=== PATIENT | female | born 1945 | race Caucasian/White ===

== ENCOUNTER → 2017-03-07 | Outpatient (CLI) | payer MEDICARE, SELFPAY | PROVIDERS: Visit Provider Family Medicine | DX: R26.89 Other abnormalities of gait and mobility (principal); R41.3 Other amnesia | CPT/HCPCS: 36415; 70470; 82565; 84520; Q9967 ==

== ENCOUNTER → 2017-09-25 15:33 | Outpatient (CLI) | payer MEDICARE, SELFPAY ==
--- NOTE | 2017-09-25 15:53 | XR_ITS ---
XR hip RT 2-3V w/pelvis HISTORY: ITS.REASON: RT HIP PAIN ORDERING PHYSICIAN: Isha Peñaloza MD PATIENT AGE: 71 years COMPARISON: None FINDINGS: Mild osteoarthritic changes are present involving the right hip area no fracture or dislocation. No lytic or blastic change. IMPRESSION: Mild osteoarthritis of the right hip
== END ==
PROVIDERS: PCP Family Medicine; Visit Provider Family Medicine
DX: M25.551 Pain in right hip (principal)
CPT/HCPCS: 73502

== ENCOUNTER → 2018-06-25 14:57 | Outpatient (CLI) | payer MEDICARE, SELFPAY ==
--- NOTE | 2018-06-25 15:02 | XR_ITS ---
XR ribs RT min 3V w CXR1V HISTORY: Right rib pain ITS.REASON: RIB PAIN RT SIDE ORDERING PHYSICIAN: Isha Peñaloza MD PATIENT AGE: 72 years Comparison: None FINDINGS: A frontal view of the chest shows no acute finding. A gastric lap band is present. No acute rib fracture or destructive lesion of the rib evident. There is some cortical thickening involving the anterior aspect of the right 10th and ninth ribs which may represent old fractures. IMPRESSION: 1. Possible old right ninth rib fractures otherwise negative
== END ==
PROVIDERS: PCP Family Medicine; Visit Provider Family Medicine
DX: R07.81 Pleurodynia (principal)
CPT/HCPCS: 71101

== ENCOUNTER 2019-03-18 01:18 | Observation (INO) ==
--- NOTE | 2019-03-18 01:33 | Emergency Department Note ---
ED Disposition Clinical Impression: Bronchitis with bronchospasm Pneumonia, community acquired Qualifiers: Laterality: left Lung location: lower lobe of lung Qualified Code(s): J18.9 - Pneumonia, unspecified organism Disposition: Admitted as Observation Condition on Discharge: Fair Referrals: Isha Peñaloza MD [Primary Care Provider] - - Critical Care Critical Care Time: No Attestation: On 03/18/19, the high probability of a clinically significant, sudden or life threatening deterioration of the following system(s) required my full and direct attention, intervention and personal management. The time I documented below is in addition to time spent performing reported procedures but includes the following listed in this critical care notation. Medical Decision Making - Lele Inquiry Pt receiving controlled substance: No Vital Signs: 03/18/19 01:27 03/18/19 02:01 03/18/19 02:36 Temperature 98.4 F Temperature Source Oral Pulse Rate 83 Pulse Rate [Right Brachial] 123 H 114 H Respiratory Rate 30 H Blood Pressure [Right Arm] 207/103 H 165/85 H Blood Pressure Mean [Right Arm] 137 111 Blood Pressure Source [Right Arm] Automatic Cuff Blood Pressure Position [Right Arm] Supine 02 Sat by Pulse Oximetry 90 L 93 L Oxygen Delivery Method Room Air - Lab Data Lab Results 03/18/19 01:38: WBC 8.9, RBC 4.24, Hgb 12.5, Hct 38.5, MCV 90.9, MCH 29.5, MCHC 32.5, RDW 14.3, Plt Count 175, MPV 7.1 L, Neut % (Auto) 74.8, Lymph % (Auto) 16.9, Mcduffie % (Auto) 3.7, Eos % (Auto) 4.1, Baso % (Auto) 0.6, Neut # (Auto) 6.7, Lymph # (Auto) 1.5, Mcduffie # (Auto) 0.3, Eos # (Auto) 0.4, Baso # (Auto) 0.1 03/18/19 01:38: Sodium 142, Potassium 4.0, Chloride 105, Carbon Dioxide 28, Ani on Gap 13.0, BUN 13, Creatinine 0.69, Estimated Creat Clear 81, Estimated GFR 84, Est GFR ( Amer) 101, Glucose 141 H, Calcium 8.6, Troponin I < 0.02 03/18/19 01:38: Lactate 0.6 03/18/19 01:38: B-Natriuretic Peptide 71 03/18/19 01:47: Influenza Type A Ag Negative, Influenza Type B Ag Negative Result diagrams: 03/18/19 01:38 03/18/19 01:38 Orders (Tests/Meds): ED MEDICATIONS Generic Name Dose Route Start Last Admin Trade Name Freq PRN Reason Stop Dose Admin Ceftriaxone Sodium 1 gm/ 50 mls @ 100 mls/hr 03/18/19 02:30 03/18/19 02:31 Sodium Chloride IV 04/01/19 02:29 100 mls/hr Q24H ALCIRA Administration Protocol Azithromycin 500 mg/ Sodium 250 mls @ 250 mls/hr 03/18/19 02:30 03/18/19 02:56 Chloride IV 04/01/19 02:29 250 mls/hr Q24H ALCIRA Administration Protocol Discontinued Medications Generic Name Dose Route Start Last Admin Trade Name Freq PRN Reason Stop Dose Admin Albuterol/Ipratropium 3 ml 03/18/19 01:42 03/18/19 02:36 Duoneb 3ml Neb IH 03/18/19 01:43 3 ml ONCE ONE Administration Levofloxacin/Dextrose 750 mg in 150 mls @ 100 mls/hr 03/18/19 02:30 Levofloxacin 750mg/150ml Premix IV 04/01/19 02:29 Q24H ALCIRA Protocol Methylprednisolone Sodium Succinate 125 mg 03/18/19 01:42 03/18/19 02:08 Solu-Medrol 125mg/2ml Vial IV 03/18/19 01:43 125 mg ONCE ONE Administration ORDERS Category Date Time Status Chest XR 2 view (NOT portable) [XR chest 2V] Stat Exams 03/18/19 01:42 Ordered Troponin I Q3H Lab 03/18/19 04:45 Ordered Troponin I Q3H Lab 03/18/19 07:45 Ordered Blood Culture Stat Micro 03/18/19 01:38 Received 12-lead EKG Request [ECG Request by /Gerald] Stat Y 03/18/19 01:32 Ordered - Radiology Data #1 Image(s): Chest Image Reviewed: Yes I reviewed the patient's radiology image Increased markings left base, blunting left costophrenic angle. Probable pneumonia. - ECG Data Tracing #1 EKG interpreted by Nima Gray MD: Rhythm: sinus tachycardia Rate: 118 [place]: normal Ectopy: none Conduction: normal ST Segment Changes: none T Wave Changes: none Q Waves: none No evidence of acute ischemia or injury - Physician Consults Physician Consulted: Karen Downs Time: 02:57 Reason -: Admission Comment/Response: Agrees to admit the patient to the hospital. We discussed the patient's clinical information, including history, exam, laboratory and radiology results and ED course. Per hospital procedure, I will write temporary bridge inpatient orders on the patient. Specific orders requested by the admitting physician: Continue antibiotics, nebulizer treatments, steroids - Reevaluation(s) Time: 02:51 Reevaluation #1: Some improvement, but still wheezing and tachypneic. Does not feel well enough to go home. Medical Decision Narrative: Allergy to penicillin, but has had Keflex without difficulty General Adult HPI - General Stated complaint: Difficulty breathing Time Seen by Provider: 03/18/19 01:34 Mode of Arrival: Wheelchair Limitations: No Limitations Description of Symptoms (Recalled from ER Triage Doc. by RN): PATIENT WHEELED INTO [place] 7 STATING "I THINK I HAVE PNEUMONIA." PATIENT STATES "I'VE BEEN HAVING TROUBLE BREATHING, MY CHEST HURTS, AND I'M WHEEZING." PATIENT REPORTS UNKNOWN IF SHE HAS BEEN RUNNING ANY FEVERS, BUT REPORTS HAVING CHILLS. - History of Present Illness HPI narrative: States "I think I have pneumonia". 2-day history of shortness of breath, wheezing, nonproductive cough, rhinorrhea, sore throat, chills without documented fever. Also has had swelling of her ankles for 2 weeks. Says that she has had bronchitis in the past and this feels the same. States that she has a bad hip, her hip doctor sent her for cardiac evaluation about 3 weeks ago. She saw leaf sorter at [facility] had and had an EKG and an echocardiogram and was told everything was fine. No known heart problems. No known lung disease. Former smoker, quit many years ago. - Related Data Home Medications Medication Instructions Recorded Confirmed Citalopram Hydrobromide [Celexa] 10 mg PO DAILY 07/12/17 07/12/17 PHENobarbital [Phenobarbital] 15 mg PO DAILY 07/12/17 07/12/17 Simvastatin 10 mg PO DAILY 07/12/17 07/12/17 glyBURIDE [Diabeta 5mg tablet] 0 mg PO DAILY 07/12/17 07/12/17 lisinopriL [Lisinopril 10mg Tab] 10 mg PO DAILY 07/12/17 07/12/17 Previous Rx's Medication Instructions Recorded cephALEXin [Keflex 500mg Cap] 500 mg PO QID #39 cap 07/12/17 Bacitracin [Bacitracin Oint 0.9GM 1 each TP TID #1 tube 10/12/17 UDP] cephALEXin [Keflex 500mg Cap] 500 mg PO QID #40 cap 10/12/17 Allergies Allergy/AdvReac Type Severity Reaction Status Date / Time Penicillins Allergy Intermediate I-ITCHING, Verified 10/12/17 12:07 RASH, SWELLING [facility] History - Hepatitis A Screen Drug use history?: No High risk sexual behaviors?: No History of sexually transmitted infection?: No Currently employed?: No Childcare worker?: No Do you have indoor plumbing?: Yes Do you have electricity?: Yes Attestation statement:: This patient has been screened for Hepatitis A risk factors. I have reviewed the patient's past medical history: Yes Medical History: Reports:: Anxiety, Depression, Diabetes Mellitus Type 2, Hyperlipidemia, Hypertension Denies:: Cancer, Diabetes Mellitus Type 1, MRSA Other Medical History: Reports: Other (headaches) Laterality Cases: Left: Other Other Surgeries: Yes: Other (lap band, hysterectomy) Amputation: No - Social History Alcohol Intake: never - Psychiatric History Pschychiatric History:: Reports:: Anxiety, Depression ROS Obtained: Yes All systems reviewed & no additional complaints - Constitutional Constitutional: Reports chills, Denies fever(s) - ENT Ears, Nose, Mouth, and Throat: Reports nasal discharge, Reports sore throat - Cardiovascular Cardiovascular: Denies chest pain, Reports leg edema - Respiratory Respiratory: Yes cough, Yes dyspnea - Gastrointestinal Gastrointestingal: Denies: abdominal pain, diarrhea, vomiting Physical Exam - General General appearance: alert, in distress (Mild respiratory distress) - Head Head exam: atraumatic, normocephalic - Eye Eye exam: Present: normal appearance, EOMI - ENT ENT exam: Present: mucous membranes moist - Neck Neck exam: Present: normal inspection, trachea midline - Chest Chest inspection: Present: normal inspection, symmetric chest wall rise - Respiratory Respiratory exam: Present: wheezes - Cardiovascular Cardiovascular exam: Present: tachycardia, normal heart sounds - Abdominal Exam Abdominal exam: Present: soft. Absent: distention, tenderness - Extremities Exam Extremities exam: Present: normal capillary refill, other (2+ pitting edema of ankles) - Neurological Exam Neurological exam: Present: alert, oriented X3 - Psychiatric Psychiatric exam: Present: anxious - Skin Skin exam: Present: warm, dry
[2019-03-18 01:55] LABS: Basophils # 0.1 K/mm3 (0-0.2); Basophils % 0.6 % (0.1-2.0); Eosinophils # 0.4 K/mm3 (0.0-0.4); Eosinophils % 4.1 % (0.1-12.0); Hematocrit 38.5 % (37.0-47.0); Hemoglobin 12.5 g/dL (12.2-16.2); Lymphocytes # 1.5 K/mm3 (0.7-4.5); Lymphocytes % 16.9 % (10-50); Mean Corpuscular HGB Conc 32.5 g/dL (31.8-35.4); Mean Corpuscular Volume 90.9 fl (81-99); Mean Platelet Volume 7.1 fl (7.4-10.4); Monocytes # 0.3 K/mm3 (0.1-1.0); Monocytes % 3.7 % (1.7-9.3); Neutrophils # 6.7 K/mm3 (1.8-7.8); Neutrophils % 74.8 % (37.0-80.0); Platelet Count 175 K/mm3 (142-424); Red Blood Count 4.24 M/mm3 (4.20-5.40); Red Cell Distribution Width 14.3 % (11.5-17.5); White Blood Count 8.9 K/mm3 (4.8-10.8)
[2019-03-18 02:07] LABS: Blood Urea Nitrogen 13 mg/dL (7-18); Calcium 8.6 mg/dL (8.5-10.1); Carbon Dioxide 28 mmol/L (21.0-32.0); Chloride 105 mmol/L (98-107); Glucose 141 mg/dL (74-106); Sodium 142 mmol/L (136-145)
--- NOTE | 2019-03-18 08:25 | History & Physical Report ---
*Admission Date: 03/18/19 *Chief complaint: Cough with shortness of breath and wheezing *History of present illness: 73-year-old female with diabetes presented to the emergency department with a 48-hour history of cough, malaise, wheezing and worsening shortness of breath with subjective fevers. Evaluation in the emergency department was suspicious for a left lower lobe pneumonia along with patient's wheezing. There is no documented hypoxia. Patient was admitted for treatment of community-acquired pneumonia and bronchiolitis. Patient reports her cough is productive of only clear sputum. She does not use inhaled medications at home. [facility] History I have reviewed the patient's past medical history: Yes Medical History: Reports:: Anxiety, Depression, Diabetes Mellitus Type 2, Hyperlipidemia, Hypertension Denies:: Cancer, Diabetes Mellitus Type 1, MRSA *Have you ever received a pneumonia vaccine?: No *Have you received a flu vaccine this season?: Yes Other Medical History: Reports: Other (headaches) Laterality Cases: Left: Other Other Surgeries: Yes: Hysterectomy-Total, Other (lap band, hysterectomy) Amputation: No Fractures: No - *Social History Educational Level: Attended College Smoking Status: Former smoker Smoking End Date: 27 years ago Alcohol Intake: never *Occupational Status:: retired Housing: house Household Members: spouse *Travel in the last 8 weeks: None - Psychiatric History Pschychiatric History:: Reports:: Anxiety, Depression Family Hx:: Cancer, Diabetes, Heart Attack, Stroke Review of Systems - Constitutional Reports body ache(s), Reports chills, Reports fatigue, Reports weakness, Denies fever(s) - *Cardiovascular Denies chest pain - *Respiratory Reports chest congestion, Reports cough, Reports shortness of breath, Reports shortness of breath with activity, Denies change in phlegm color, Denies coughing up blood Meds Home Medications Medication Instructions Recorded Confirmed Type Citalopram Hydrobromide [Celexa] 10 mg PO DAILY 07/12/17 03/18/19 History PHENobarbital [Phenobarbital] 15 mg PO DAILY 07/12/17 03/18/19 History Simvastatin 10 mg PO DAILY 07/12/17 03/18/19 History lisinopriL [Lisinopril 10mg Tab] 10 mg PO DAILY 07/12/17 03/18/19 History glipiZIDE [Glipizide] 30 mg PO DAILY 03/18/19 03/18/19 History Allergies Allergy/AdvReac Type Severity Reaction Status Date / Time Penicillins Allergy Intermediate I-ITCHING, Verified 10/12/17 12:07 RASH, SWELLING Exam Vital signs and Labs for Last 24 Hours: Temp Pulse Resp BP Pulse Ox 98.3 F 107 H 17 140/59 L 92 L 03/18/19 08:00 03/18/19 08:00 03/18/19 08:00 03/18/19 08:00 03/18/19 08:00 Laboratory Results - last 24 hr 03/18/19 01:38: WBC 8.9, RBC 4.24, Hgb 12.5, Hct 38.5, MCV 90.9, MCH 29.5, MCHC 32.5, RDW 14.3, Plt Count 175, MPV 7.1 L, Neut % (Auto) 74.8, Lymph % (Auto) 16.9, Lyman % (Auto) 3.7, Eos % (Auto) 4.1, Baso % (Auto) 0.6, Neut # (Auto) 6.7, Lymph # (Auto) 1.5, Lyman # (Auto) 0.3, Eos # (Auto) 0.4, Baso # (Auto) 0.1 03/18/19 01:38: Sodium 142, Potassium 4.0, Chloride 105, Carbon Dioxide 28, Anion Gap 13.0, BUN 13, Creatinine 0.69, Estimated Creat Clear 81, Estimated GFR 84, Est GFR ( Amer) 101, Glucose 141 H, Calcium 8.6, Troponin I < 0.02 03/18/19 01:38: Lactate 0.6 03/18/19 01:38: B-Natriuretic Peptide 71 03/18/19 01:47: Influenza Type A Ag Negative, Influenza Type B Ag Negative 03/18/19 06:06: POC Glucose 223 H I & O for Last 24 hours: Intake & Output 03/15/19 03/16/19 03/17/19 03/18/19 11:59 11:59 11:59 11:59 Weight 239 lb 9 oz Narrative: Patient looks tired. Nasal cannula is in place. She shows no signs of respiratory distress. HEENT exam reveals pupils that are reactive to light, normal external ears, moist mucous membranes. Neck has no lymphadenopathy. Breath sounds are distant throughout with mixed expiratory wheezes heard best posteriorly in both lungs. Heart has a regular rate and rhythm. Abdomen is obese and soft. Extremities are warm to the touch and she has active range of motion. Assessment and Plan (1) Pneumonia, community acquired Current visit: Yes Status: Acute Qualifiers: Laterality: left Lung location: lower lobe of lung Qualified Code(s): J18.9 - Pneumonia, unspecified organism Category: Medical Code(s): J18.9 - Pneumonia, unspecified organism (2) Acute bronchiolitis Current visit: Yes Status: Acute Category: Medical Code(s): J21.9 - Acute bronchiolitis, unspecified (3) Diabetes mellitus Current visit: Yes Status: Acute Qualifiers: Diabetes mellitus type: type 2 Diabetes mellitus long-term insulin use: without long-term use Diabetes mellitus complication status: without complication Qualified Code(s): E11.9 - Type 2 diabetes mellitus without complications Category: Medical Code(s): E11.9 - Type 2 diabetes mellitus without complications - Assessment and plan all Dx Assessment and Plan for all problems:: 1. Continue IV Rocephin and azithromycin along with steroids and duo nebs for community-acquired pneumonia and bronchiolitis. Supplemental oxygen will be used as needed.
--- NOTE | 2019-03-18 08:54 | Pharmacy Consult Notes ---
[facility] Pharmacy VTE Monitoring - Patient Demographics Admission date: 03/17/19 Report Date: 03/18/19 Time: 08:54 Allergies/Adverse Reactions: Patient Allergies Penicillins Allergy (Intermediate, Verified 10/12/17 12:07) I-ITCHING, RASH, SWELLING Height: 1.57 m Weight: 108.664 kg Patient Problems: Current Active Problems Pneumonia, community acquired (Acute) Bronchitis with bronchospasm (Acute) Acute bronchiolitis (Acute) Diabetes mellitus (Acute) - VTE Risk Labs: VTE Related Lab Results Hgb 12.5 g/dL (12.2-16.2) 03/18/19 01:38 Hct 38.5 % (37.0-47.0) 03/18/19 01:38 Plt Count 175 K/mm3 (142-424) 03/18/19 01:38 BUN 13 mg/dL (7-18) 03/18/19 01:38 Creatinine 0.69 mg/dL (0.55-1.02) 03/18/19 01:38 Estimated Creat Clear 81 mL/min (50-200) 03/18/19 01:38 Was VTE Risk Assessment Performed: Yes VTE Score: 4 VTE Risk Level: Low Risk Clinical Trial Participant: No - Prophylaxis VTE Prophylaxis Ordered?: Yes Types of VTE Prophylaxis: TEDS Knee High Location of Applied Device: Refused
--- NOTE | 2019-03-19 07:25 | Progress Note ---
Internal Medicine - PN: Subj *Date: 03/19/19 *Time: 07:23 Interval history: Patient reports feeling slightly improved although has had some dyspnea with exertion. Documented room air sat of 89% this morning. Her cough remains nonproductive and she denies any improvement with use of duo nebs Exam Vital signs and Labs for Last 24 Hours: Temp Pulse Resp BP Pulse Ox 98.4 F 97 H 20 142/76 H 92 L 03/19/19 04:00 03/19/19 06:08 03/19/19 04:00 03/19/19 04:00 03/19/19 06:08 Laboratory Results - last 24 hr 03/18/19 20:25: POC Glucose 290 H 03/19/19 05:31: POC Glucose 280 H I & O for Last 24 hours: Intake & Output 03/16/19 03/17/19 03/18/19 03/19/19 11:59 11:59 11:59 11:59 Intake Total 120 / 120 1081 / 1081 Output Total 300 / 300 Balance 120 / 120 781 / 781 Weight 239 lb 9 oz 238 lb 3 oz Narrative: Patient does not appear to be in any distress. Lungs are distant with expiratory wheezes. Faint rales in the left lung base Assessment and Plan (1) Pneumonia, community acquired Current visit: Yes Status: Acute Qualifiers: Laterality: left Lung location: lower lobe of lung Qualified Code(s): J18.9 - Pneumonia, unspecified organism Category: Medical Code(s): J18.9 - Pneumonia, unspecified organism (2) Acute bronchiolitis Current visit: Yes Status: Acute Category: Medical Code(s): J21.9 - Acute bronchiolitis, unspecified (3) Diabetes mellitus Current visit: Yes Status: Acute Qualifiers: Diabetes mellitus type: type 2 Diabetes mellitus terminal gauger insulin use: without mcc use Diabetes mellitus complication status: without complication Qualified Code(s): E11.9 - Type 2 diabetes mellitus without complications Category: Medical Code(s): E11.9 - Type 2 diabetes mellitus without complications - Assessment and plan all Dx Assessment and Plan for all problems:: 1. Encourage patient to ambulate and use incentive spirometry. Continue IV antibiotics and steroids. Change duo nebs to as needed
--- NOTE | 2019-03-19 11:21 | Electrocardiograph Report ---
APPROVED REPORT Exam: Resting ECG HR:118 bpm ECG Measurements Heart Rate 118 AXES RI 154 P 70 QRSd 66 QRS 30 QT 318 T55 QTc 445 <Conclusion> Sinus tachycardia Otherwise normal ECG Electronically signed by : Humberto Camarena, 03/18/2019 09:46:27
--- NOTE | 2019-03-20 07:41 | Discharge Summary ---
General - General Admission date:: 03/18/19 Discharge date: 03/20/19 HPI HPI: 73-year-old female with diabetes presented to the emergency department with a 48-hour history of cough, malaise, wheezing and worsening shortness of breath with subjective fevers. Evaluation in the emergency department was suspicious for a left lower lobe pneumonia along with patient's wheezing. There is no documented hypoxia. Patient was admitted for treatment of community-acquired pneumonia and bronchiolitis. Patient reports her cough is productive of only clear sputum. She does not use inhaled medications at home. Hospital Course Hospital Course: Patient was admitted and treated with Rocephin and azithromycin for left lower lobe pneumonia. Patient was also treated with duo nebs and steroids for wheezing. She did not get much benefit from the duo nebs so these were made as needed as opposed to schedule. Patient never developed an oxygen requirement. After 48 hours of observation patient's lung exam had improved to include only faint expiratory wheezes. Blood cultures were negative. Patient was discharged home and will follow-up in the office in 1 week. Patient will finish a course of azithromycin as well as steroids. Objective Vital signs: Temp Pulse Resp BP Pulse Ox 97.9 F 96 H 18 142/70 H 91 L 03/20/19 04:00 03/20/19 04:00 03/20/19 04:00 03/20/19 04:00 03/20/19 04:00 Narrative: Patient is in no distress. Lungs have good aeration with end expiratory wheezing heard in the upper lobes posteriorly. Heart has a regular rate and rhythm. Extremities are without edema Results Labs on day of discharge: Labs from last 24 hours 03/20/19 03/19/19 03/19/19 06:06 20:39 16:23 POC Glucose 335 H* 333 H* 301 H* 03/19/19 03/18/19 03/18/19 11:21 16:55 11:44 POC Glucose 323 H* 307 H* 267 H Preliminary micro results at discharge 03/18/19 01:38 Blood Culture - Preliminary Blood NO GROWTH AFTER 48 HOURS 03/18/19 01:38 Blood Culture - Preliminary Blood NO GROWTH AFTER 48 HOURS DS: Diagnosis - Discharge Diagnosis (1) Pneumonia, community acquired Status: Acute (2) Acute bronchiolitis Status: Acute (3) Diabetes mellitus Status: Acute Discharge Plan - Patient Discharge Instructions ACTIVITY: Continue current activity DIET: continue same diet Patient Instructions: Acute Bronchitis (Alternative Therapy), Pneumonia-Adult, DI for Pneumonia -- Adult - Follow up Plan Follow up with: Humberto Downs MD [Staff Physician] - Disposition: Home, Self-Residential Medications: Home Medications Medication Instructions Recorded Confirmed Type Citalopram Hydrobromide [Celexa 40 mg PO DAILY 03/18/19 03/18/19 History 40mg Tablet] Ergocalciferol (Vitamin D2) 50,000 units PO WEEKLY 03/18/19 03/18/19 History [Drisdol 50,000 units (1.25mg) capsule] Furosemide [Furosemide 40MG tAB] 40 mg PO DAILY 03/18/19 03/18/19 History Levothyroxine Sodium 50 mcg PO DAILY 03/18/19 03/18/19 History [Levothyroxine 50mcg (0.05mg) Tab] Lisinopril/Hydrochlorothiazide 1 each PO DAILY 03/18/19 03/18/19 History [Lisinopril-Hctz 20-12.5 mg Tab] Pioglitazone HCl 30 mg PO DAILY 03/18/19 03/18/19 History Simvastatin 40 mg PO HS 03/18/19 03/18/19 History glipiZIDE [Glipizide ER] 10 mg PO BID 03/18/19 03/18/19 History Azithromycin [Z-Sukhi 250mg Tab*] 250 mg PO UD DOSE PK #6 tab 03/20/19 Rx methylPREDNISolone [Medrol] 4 mg PO DIRECTED #21 pack 03/20/19 Rx Prescriptions/Medication Reconciliation: New methylPREDNISolone [Medrol] 4 mg PO DIRECTED #21 pack Azithromycin [Z-Sukhi 250mg Tab*] 250 mg PO UD DOSE PK #6 tab Continued Simvastatin 40 mg PO HS Furosemide [Furosemide 40MG tAB] 40 mg PO DAILY Pioglitazone HCl 30 mg PO DAILY Citalopram Hydrobromide [Celexa 40mg Tablet] 40 mg PO DAILY Levothyroxine Sodium [Levothyroxine 50mcg (0.05mg) Tab] 50 mcg PO DAILY Ergocalciferol (Vitamin D2) [Drisdol 50,000 units (1.25mg) capsule] 50,000 units PO WEEKLY Lisinopril/Hydrochlorothiazide [Lisinopril-Hctz 20-12.5 mg Tab] 1 each PO DAILY glipiZIDE [Glipizide ER] 10 mg PO BID - Problem Reconciliation Problems Reviewed?: Yes
== END 2019-03-20 11:09 | disposition home or self-care (01) ==
LOC: 2ND 01:18 → ER 01:18 → 2ND 03:55
PROVIDERS: ADMIT Internal Medicine Adolescent Medicine; ATTEND Family Medicine
CPT/HCPCS: 71020; 71046; 80048; 82962; 83605; 83880; 84484; 85025; 87040; 87275; 87276; 93005; 94640; 94761; 96365; 96366; 96375; 99284; G0378; J0456; J2405

== ENCOUNTER → 2019-04-22 11:58 | Outpatient (CLI) | payer MEDICARE, SELFPAY ==
--- NOTE | 2019-04-22 12:05 | XR_ITS ---
PROCEDURE: XR CHEST 2V CLINICAL HISTORY: HTN Pneumonia COMPARISON: [id number] XR ribs RT min 3V w CXR1V from 06/25/2018 XR CHEST 2V from 03/18/2019 FINDINGS: Borderline cardiomegaly without failure Right-sided pericardial fat pad. No lobar consolidation or collapse No acute bony abnormalities. IMPRESSION: No acute findings. Dictated by: Saeed Brown MD 04/22/2019 15:43 Electronically signed by Saeed Brown MD in [place] 04/22/2019 15:43
== END ==
PROVIDERS: PCP Family Medicine; Visit Provider Family Medicine
DX: Z01.818 Encounter for other preprocedural examination (principal)
CPT/HCPCS: 71046

== ENCOUNTER → 2019-08-14 12:35 | Outpatient (CLI) | payer MEDICARE, SELFPAY ==
--- NOTE | 2019-08-14 12:51 | XR_ITS ---
PROCEDURE: XR ANKLE RT MIN 3V CLINICAL INDICATION: FELL Right ankle and foot pain COMPARISON: No exams were available for comparison FINDINGS: The medial and lateral malleolus appear intact. There is minor spurring of the tip of the lateral malleolus and tip of the medial malleolus. There is moderate soft tissue swelling medially. IMPRESSION: Minor soft tissue swelling, no acute fracture seen Dictated by: Dr. Jax Pena MD 08/14/2019 13:[address] Jax Pena MD in [place] 08/14/2019 13:06
--- NOTE | 2019-08-14 12:51 | XR_ITS ---
PROCEDURE: XR FOOT RT MIN 3V CLINICAL INDICATION: FELL Right foot pain and swelling COMPARISON: No exams were available for comparison FINDINGS: No fracture or dislocation. No lytic or blastic change. There is normal mineralization. The joint spaces are well-preserved. No significant degenerative/arthritic changes. No erosive changes evident. There are prominent spurs of the calcaneus at the insertion of the Achilles tendon and plantar tendon. Other findings:There is minor diffuse soft tissue swelling of the dorsal forefoot IMPRESSION: Negative for acute fracture. Dictated by: Dr. Jax Pena MD 08/14/2019 13:[address] Jax Pena MD in [place] 08/14/2019 13:07
== END ==
PROVIDERS: PCP Family Medicine; Visit Provider Family Medicine
DX: M25.571 Pain in right ankle and joints of right foot (principal); W19.XXXA Unspecified fall, initial encounter
CPT/HCPCS: 73610; 73630

== ENCOUNTER → 2020-05-17 11:21 | Outpatient (CLI) | payer MEDICARE, SELFPAY ==
--- NOTE | 2020-05-17 11:28 | XR_ITS ---
PROCEDURE: XR SHOULDER LT MIN 2V CLINICAL INDICATION: FALL AT HOME, PAIN IN LT SHOULDER COMPARISON: No exams were available for comparison FINDINGS: No fracture or dislocation. No lytic or blastic change. There is normal mineralization. There are mild osteoarthritic changes of the acromioclavicular joint and glenohumeral joint with osteophyte along the subacromial region with subacromial stenosis. Other findings:None. IMPRESSION: Degenerative change, no acute finding Dictated by: Saeed Brown MD 05/17/2020 17:02 Saeed Brown MD in [place] 05/17/2020 17:02
--- NOTE | 2020-05-17 11:29 | XR_ITS ---
PROCEDURE: XR CHEST 2V CLINICAL HISTORY: FALL AT HOME, RIB PAIN OF LT SIDE COMPARISON: CR XR CHEST 2V from 03/18/2019 CR XR CHEST 2V from 04/22/2019 CR XR CHEST 2V from 05/05/2019 FINDINGS: Heart size is unremarkable. Prominent pericardial fat pad is present on the right. The lungs are clear without infiltrates, suspicious nodules, or pleural effusions. Gastric lap band noted. No acute bony findings. IMPRESSION: No acute findings. Dictated by: Saeed Brown MD 05/17/2020 16:58 Saeed Brown MD in [place] 05/17/2020 16:58
== END ==
PROVIDERS: PCP Family Medicine; Visit Provider Family Medicine
DX: R07.81 Pleurodynia (principal); W19.XXXA Unspecified fall, initial encounter
CPT/HCPCS: 71046; 73030

== ENCOUNTER → 2020-06-07 12:28 | Outpatient (CLI) | payer MEDICARE, SELFPAY ==
--- NOTE | 2020-06-07 12:34 | XR_ITS ---
PROCEDURE: XR LUMBAR SPINE MIN 4V CLINICAL INDICATION: LOW BACK PAIN COMPARISON: No exams were available for comparison FINDINGS: There is normal curvature and alignment. All lumbar vertebrae appear intact. There is minor anterior osteophytic spurring at the L2-3 level. There are mild hypertrophic facet changes the L4-5 and L5-S1 levels. There is diffuse arthrosclerotic calcification of the abdominal aorta but there is no aneurysm. There is an apparent gastrostomy feeding tube entering the antrum of the stomach. 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 IMPRESSION: No acute findings. Dictated by: Dr. Jax Pena MD 06/07/2020 13:03 Dr. Jax Pena MD in [place] 06/07/2020 13:03
== END ==
PROVIDERS: PCP Family Medicine; Visit Provider Family Medicine
DX: M54.5 Low back pain (principal)
CPT/HCPCS: 72110

== ENCOUNTER → 2020-06-14 09:44 | Outpatient (CLI) | payer MEDICARE, SELFPAY ==
[2020-06-14 11:12] LABS: Blood Urea Nitrogen 26 mg/dl (7-17); Estimated Glomerular Filt Rate 55 ml/min (>60); GFR (African American) 66 ML/MIN (>60)
== END ==
PROVIDERS: Visit Provider Family Medicine
DX: R42 Dizziness and giddiness (principal); Z91.81 History of falling
CPT/HCPCS: 36415; 82565; 84520

== ENCOUNTER → 2020-06-15 13:34 | Outpatient (CLI) | payer MEDICARE, SELFPAY ==
--- NOTE | 2020-06-15 13:37 | MR_ITS ---
PROCEDURE: MR HEAD/BRAIN WO/W CON CLINICAL INDICATION: DIZZY SPELLS COMPARISON: No exams were available for comparison TECHNIQUE: Routine multiplanar multi echo sequences are performed without gadolinium enhancement. FINDINGS: No evidence of restricted diffusion is noted. No evidence of intra or extra-axial hemorrhage, space occupying lesion or acute infarct noted. The ventricles are mildly dilated, likely represents its vacuo dilation. The dunlap-white matter differentiation is within normal limits. Extensive periventricular and subcortical white matter hypodensities are noted, may represent microvascular changes. Generalized global volume loss is noted. No midline shift or mass effect. No abnormal enhancement is noted. Mucous retention cyst in the right maxillary sinus. Otherwise the paranasal sinuses are unremarkable. Mastoid air cells are clear without evidence of effusions. IMPRESSION: No intra acute intracranial abnormality. Global volume loss, and microvascular changes Dictated by: Vee Steiner 06/15/2020 15:45 Vee Steiner in [place] 06/15/2020 15:45
== END ==
PROVIDERS: PCP Family Medicine; Visit Provider Family Medicine
DX: R42 Dizziness and giddiness (principal); Z91.81 History of falling
CPT/HCPCS: 70553; A9576

== ENCOUNTER 2020-08-23 15:00 | Outpatient (RCR) | payer MEDICARE, SELFPAY ==
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
--- NOTE | 2020-08-11 15:46 | HMH.RHREAS ---
Rehab Reassessment Rehab OP Re-assessment Start: 07/14/20 15:45 Freq: Status: Active Protocol: Document 08/11/20 15:36 MASTER (Rec: 08/11/20 15:44 MASTER [id number]) Electronically Signed By Charanjit Grewal, PT 08/11/20 15:36 Rehab Re-assessment Subjective Subjective Patient reports 70% improvement since start of care. Objective Objective Notes MMT (L/R): hip flx 4+/5, 4-/5; hip abd 4+/5,4+/5; hip add 4+ /5, 4+/5; hip ext 4+/5; 4+/5; hip ER/IR 4+/5 B; knee ext: 4+ /5,4+/5; knee flx 4+/5, 4+/5 TU sec SLS (L/R): 2, 1 DGI: Standing/walking time: 25-30' Assessment Progress Assessment Slower Than Expected Assessment Notes Patient is continuing to tolerate Rx well. Rx has consisted mainly of ther-ex and neuro-reeducation for BLE stength and balance. Objective improvements as noted above. No recent falls to report. Patient continues to complain of BLE weakness and poor balance. Rx consistency has been hindered by illness and extenuating circumstances. Overall functional mobility has improve, though balance and endurance continue to cause saftey concerns and fucntional limitations with all standing /ambulatory activities. Patient goals met STG's Goals Not Met LTG's Revised Goals NA Plan Plan Continue with current POC. Frequency of Therapy 2x/week Duration of therapy 4 weeks Time and Billing Re-Eval Time 15 Re-Eval Billing Units 1 PHYSICIAN CERTIFICATION: I certify the specified therapy services for Dominga Ardon are required, authorized, and reviewed every 30 days.
== END 2020-08-23 15:05 | disposition home or self-care (01) ==
LOC: PT 15:00
PROVIDERS: PCP Family Medicine; Visit Provider Family Medicine
DX: R29.898 Other symptoms and signs involving the musculoskeletal system (principal); M62.81 Muscle weakness (generalized)
CPT/HCPCS: 97110; 97112; 97163; 97164

== ENCOUNTER → 2020-10-11 12:16 | Outpatient (CLI) | payer MEDICARE, SELFPAY ==
--- NOTE | 2020-10-11 12:34 | XR_ITS ---
PROCEDURE: XR LUMBAR SPINE MIN 4V CLINICAL INDICATION: LOW BACK PAIN COMPARISON: CR XR LUMBAR SPINE MIN 4V from 06/07/2020 FINDINGS: There is mild diffuse osteopenia. No acute fracture or dislocation is evident. No lytic or blastic change. There is normal alignment. There are small endplate osteophytes. There is diffuse vascular calcification. Facet arthritic changes are present at L5-S1 and L4-5. Gastric lap band is present. Other findings:None. IMPRESSION: There are mild degenerative changes as described above. No change with no acute finding. Dictated by: Saeed Brown MD 10/11/2020 16:01 Saeed Brown MD in [place] 10/11/2020 16:01
== END ==
PROVIDERS: PCP Family Medicine; Visit Provider Family Medicine
DX: M54.5 Low back pain (principal)
CPT/HCPCS: 72110

== ENCOUNTER 2020-10-29 16:51 | Emergency (ER) | payer MEDICARE, SELFPAY ==
[2020-10-29 16:55] VITALS: BP 114/73; PULSE 104; RESP 20; TEMP 36.4; O2SAT 99; BMI 47.5
--- NOTE | 2020-10-29 17:05 | XR_ITS ---
PROCEDURE INFORMATION: Exam: XR Chest Exam date and time: 10/29/2020 5:05 PM Age: 74 years old Clinical indication: Shortness of breath; Additional info: Shortness of breath, leg edema TECHNIQUE: Imaging protocol: XR of the chest. Views: 2 views. COMPARISON: CR XR CHEST 2V 05/17/2020 11:35 AM FINDINGS: Lungs: Mild interstitial edema. No consolidation. Pleural spaces: Unremarkable. No pleural effusion. No pneumothorax. Heart/Mediastinum: Unremarkable. No cardiomegaly. Bones/joints: Unremarkable. IMPRESSION: Mild interstitial edema not excluded.
--- NOTE | 2020-10-29 17:30 | HMH.EDUTC ---
[facility] [place] Clinical Impression: Dependent edema Dyspnea Qualifiers: Dyspnea type: dyspnea on exertion Qualified Code(s): R06.00 - Dyspnea, unspecified Disposition: Still a Patient Condition on Discharge: Fair Referrals: Isha Peñaloza MD [Primary Care Provider] - Time of Disposition: 17:38 Medical Decision Making - Medical Records Medical records reviewed: No: I reviewed the patient's medical records. - Lele Inquiry Pt receiving controlled substance: No Vital Signs: 10/29/20 16:55 Temperature 97.5 F L Temperature Source Oral Pulse Rate [Right Brachial] 104 H Respiratory Rate 20 Blood Pressure [Right Arm] 114/73 Blood Pressure Mean [Right Arm] 86 Blood Pressure Source [Right Arm] Automatic Cuff Blood Pressure Position [Right Arm] Sitting 02 Sat by Pulse Oximetry 99 Oxygen Delivery Method Room Air Orders (Tests/Meds): ORDERS Category Date Time Status Chest XR 2 view (NOT portable) [XR chest 2V] Stat Exams 10/29/20 17:05 Ordered Medical Decision Narrative: she was transferred to the er via wheel chair due to her chest tightness and dyspnea. [facility] [place] - General Stated complaint: soa, retention Time Seen by Provider: 10/29/20 17:15 Mode of Arrival: Ambulatory Source of Information: Patient Limitations: No Limitations Description of Symptoms (Recalled from Triage Doc. by RN): PATIENT C/O SOA AND FLUID RETENTION TO BLE. SHE STATES IT HAS BEEN GOING ON FOR A WHILE, BUT HAS GOTTEN WORSE IN THE LAST FEW DAY. ALSO REPORTS A 20 POUND WEIGHT GAIN IN PAST MONTH HEENT Symptoms (Recalled from RN notes): No Resp Symptoms (Recalled from RN notes): Yes Skin Symptoms (Recalled from RN notes): No MS Symptoms (Recalled from RN notes): No Functional Status (Recalled from RN notes): WNL - History of Present Illness Provider Complaint: She states that she has been having shortness of breath and chest tightness with exertion for the past 2 days. She has been having worsening bilateral lower extremity edema for the past 2 weeks. She has gained 20 pounds over the past month. - Related Data Home Medications Medication Instructions Recorded Confirmed Citalopram Hydrobromide 40 mg PO DAILY 03/18/19 10/19/20 [Citalopram 40mg Tablet] Ergocalciferol (Vitamin D2) 50,000 units PO WEEKLY 03/18/19 10/19/20 [Drisdol 50,000 units (1.25mg) capsule] Furosemide [Furosemide 40MG tAB*] 40 mg PO DAILY 03/18/19 10/19/20 Lisinopril/Hydrochlorothiazide 1 each PO DAILY 03/18/19 10/19/20 [Lisinopril-Hctz 20-12.5 mg Tab] Pioglitazone HCl 30 mg PO DAILY 03/18/19 10/19/20 Simvastatin 40 mg PO HS 03/18/19 10/19/20 glipiZIDE [Glipizide ER] 10 mg PO BID 03/18/19 10/19/20 pantoprazole 40 mg tablet,delayed PO 11/18/19 10/19/20 release meclizine 25 mg tablet 25 mg PO tab 07/13/20 10/19/20 meloxicam 15 mg tablet 15 mg PO tab 10/19/20 10/19/20 temazepam 15 mg capsule 15 mg PO cap 10/19/20 10/19/20 tramadol 50 mg tablet 50 mg PO tab 10/19/20 10/19/20 Previous Rx's Medication Instructions Recorded urea 40 % topical cream 1 applic TOPICAL BID #28 g 11/18/19 Allergies Allergy/AdvReac Type Severity Reaction Status Date / Time Penicillins Allergy Intermediate I-ITCHING, Verified 10/19/20 10:12 RASH, SWELLING - Worker's Comp Is this a Worker's Comp case?: No [facility] History - Hepatitis A Screen Drug use history?: No High risk sexual behaviors?: No History of sexually transmitted infection?: No Currently employed?: No Childcare worker?: No Do you have indoor plumbing?: Yes Do you have electricity?: Yes Attestation statement:: This patient has been screened for Hepatitis A risk factors. I have reviewed the patient's past medical history: Yes Medical History: Reports:: Anxiety, Depression, Diabetes Mellitus Type 2, Hyperlipidemia, Hypertension Denies:: Cancer, Diabetes Mellitus Type 1, MRSA Other Medical History: Reports: Arthritis, Other Laterality Cases: Left: Other, Right: Tota
[2020-10-29 17:43] VITALS: PULSE 96; RESP 18; TEMP 36.9; O2SAT 96; BMI 47.5
--- NOTE | 2020-10-29 17:56 | ECG_ITS ---
APPROVED REPORT Exam: Resting ECG HR:100 bpm ECG Measurements Heart Rate 100 AXES OH 194 P 77 QRSd 70 QRS 54 QT 356 T 44 QTc 459 Conclusion Sinus rhythm with occasional premature ventricular complexes Otherwise normal ECG Electronically signed by : Humberto Camarena MD 10/30/2020 08:59:13
[2020-10-29 18:23] LABS: Basophils # 0.1 K/mm3 (0-0.2); Basophils % 1.1 % (0.1-2.0); Eosinophils # 0.3 K/mm3 (0.0-0.4); Eosinophils % 5.3 % (0.1-12.0); Hematocrit 36.6 % (37.0-47.0); Hemoglobin 11.6 g/dL (12.2-16.2); Lymphocytes # 1.3 K/mm3 (0.7-4.5); Lymphocytes % 23.9 % (10-50); Mean Corpuscular HGB Conc 31.7 g/dL (31.8-35.4); Mean Corpuscular Hemoglobin 27.9 pg (27.0-31.2); Mean Platelet Volume 7.7 fl (7.4-10.4); Monocytes # 0.4 K/mm3 (0.1-1.0); Monocytes % 6.4 % (1.7-9.3); Neutrophils # 3.6 K/mm3 (1.8-7.8); Neutrophils % 63.3 % (37.0-80.0); Platelet Count 157 K/mm3 (142-424); Red Blood Count 4.16 M/mm3 (4.20-5.40); Red Cell Distribution Width 15.1 % (11.5-17.5); White Blood Count 5.6 K/mm3 (4.8-10.8)
[2020-10-29 18:30] LABS: Chloride 105 mmol/L (98-107); Sodium 143 mmol/L (136-145)
[2020-10-29 18:31] LABS: Potassium 4.5 mmoL/L (3.5-5.1)
[2020-10-29 18:33] LABS: Alanine Aminotransferase 13 U/L (12-78); Albumin Level 4.2 g/dl (3.5-5.0); Albumin/Globulin Ratio 1.4 (1.1-1.8); Alkaline Phosphatase 109 U/L (38-126); Anion Gap 10.5 mEq/L (5-15); Aspartate Amino Transferase 22 U/L (14-36); Bilirubin,Total 0.4 mg/dl (0.2-1.3); Blood Urea Nitrogen 27 mg/dl (7-17); Carbon Dioxide 32 mmol/L (22.0-30.0); Creatinine Clearance Estimated 40 mL/min (50-200); Estimated Glomerular Filt Rate 62 ml/min (>60); GFR (African American) 74 ML/MIN (>60); Globulin 2.9 g/dL (1.3-3.2); Total Protein,Serum 7.1 g/dl (6.3-8.2)
[2020-10-29 18:34] LABS: Calcium 9.1 mg/dl (8.4-10.2); Glucose 65 mg/dl (74-100)
[2020-10-29 18:46] LABS: Troponin I < 0.01 ng/ml (0.00-0.034)
[2020-10-29 19:00] VITALS: BP 179/66; PULSE 96; O2SAT 97
[2020-10-29 19:07] LABS: NT Pro Brain Natriuretic Pep. 190 pg/mL (0-125)
--- NOTE | 2020-10-29 19:17 | HMH.EDGENADL ---
ED Disposition Clinical Impression: Dependent edema Dyspnea Qualifiers: Dyspnea type: dyspnea on exertion Qualified Code(s): R06.00 - Dyspnea, unspecified Disposition: Home, Self-Care Condition on Discharge: Fair Additional Instructions: Increase furosemide dose to 80 mg daily for the next 2 days. Call your primary care provider on Saturday for follow-up. Return emergency department if worsening shortness of breath. Referrals: Isha Peñaloza MD [Primary Care Provider] - - Critical Care Critical Care Time: No Attestation: On 10/29/20, the high probability of a clinically significant, sudden or life threatening deterioration of the following system(s) required my full and direct attention, intervention and personal management. The time I documented below is in addition to time spent performing reported procedures but includes the following listed in this critical care notation. Medical Decision Making - Medical Records Medical records reviewed: Yes: I reviewed the patient's medical records. MR Comment: Searched for prior echocardiograms, none found - Lele Inquiry Pt receiving controlled substance: No Vital Signs: 10/29/20 16:55 10/29/20 17:43 Temperature 97.5 F L 98.4 F Temperature Source Oral Oral Pulse Rate [Right Brachial] 104 H 96 H Respiratory Rate 20 18 Blood Pressure [Right Arm] 114/73 Blood Pressure Mean [Right Arm] 86 Blood Pressure Source [Right Arm] Automatic Cuff Blood Pressure Position [Right Arm] Sitting 02 Sat by Pulse Oximetry 99 96 Oxygen Delivery Method Room Air - Lab Data Lab Results 10/29/20 18:11: WBC 5.6, RBC 4.16 L, Hgb 11.6 L, Hct 36.6 L, MCV 88.0, MCH 27.9, MCHC 31.7 L, RDW 15.1, Plt Count 157, MPV 7.7, Neut % (Auto) 63.3, Lymph % (Auto) 23.9, [place] % (Auto) 6.4, Eos % (Auto) 5.3, Baso % (Auto) 1.1, Neut # (Auto) 3.6, Lymph # (Auto) 1.3, [place] # (Auto) 0.4, Eos # (Auto) 0.3, Baso # (Auto) 0.1 10/29/20 18:11: Sodium 143, Potassium 4.5, Chloride 105, Carbon Dioxide 32 H, Anion Gap 10.5, BUN 27 H, Creatinine 0.90, Estimated Creat Clear 40, Estimated GFR 62, Est GFR ( Amer) 74, Glucose 65 L, Calcium 9.1, Total Bilirubin 0.4, AST 22, ALT 13, Alkaline Phosphatase 109, Troponin I < 0.01, Total Protein 7.1, Albumin 4.2, Globulin 2.9, Albumin/Globulin Ratio 1.4 10/29/20 18:11: NT-Pro-B Natriuret Pep 190 H 10/29/20 19:33: SARS-CoV-2 (PCR) Not detected, Influenza A Untype (PCR) Not detected, Influenza Type B (PCR) Not detected Result diagrams: 10/29/20 18:11 10/29/20 18:11 Orders (Tests/Meds): ED MEDICATIONS Discontinued Medications Generic Name Dose Route Start Last Admin Trade Name Freq PRN Reason Stop Dose Admin Furosemide 80 mg 10/29/20 19:34 10/29/20 20:17 Furosemide 40mg/4ml Vial IV 10/29/20 19:35 80 mg ONCE ONE Administration Iopamidol 70 ml 10/29/20 19:57 10/29/20 19:58 Iopamidol-370 (76%);100ml Bottle IV 10/29/20 19:58 70 ml ONCE ONE Administration Sodium Chloride 40 ml 10/29/20 19:57 10/29/20 19:58 0.9 % Sodium Chloride 50 Ml Vial IV 10/29/20 19:58 40 ml ONCE ONE Administration Sodium Chloride 10 ml 10/29/20 19:57 10/29/20 19:58 Sodium Chloride 0.9% 10ml Syr (Rad Only) IV 10/29/20 19:58 10 ml ONCE ONE Administration ORDERS Category Date Time Status Troponin I Q3H Lab 10/29/20 21:00 Ordered Troponin I Q3H Lab 10/30/20 00:00 Ordered - Radiology Data #1 Image(s): Chest Image Reviewed: Yes I reviewed the patient's radiology image, Yes I have reviewed radiologist's interpretation PROCEDURE INFORMATION: Exam: XR Chest Exam date and time: 10/29/2020 5:05 PM Age: 74 years old Clinical indication: Shortness of breath; Additional info: Shortness of breath, leg edema TECHNIQUE: Imaging protocol: XR of the chest. Views: 2 views. COMPARISON: CR XR CHEST 2V 05/17/2020 11:35 AM FINDINGS: Lungs: Mild interstitial edema. No consolidation. Pleural spaces: Unremarkable. No pleu
--- NOTE | 2020-10-29 19:33 | CT_ITS ---
PROCEDURE INFORMATION: Exam: CTA Chest With Contrast Exam date and time: 10/29/2020 7:33 PM Age: 74 years old Clinical indication: Shortness of breath; Additional info: SOA TECHNIQUE: Imaging protocol: Computed tomographic angiography of the chest with contrast. 3D rendering (Not supervised by radiologist): MIP and/or 3D reconstructed images were created by the technologist. Radiation optimization: All CT scans at this facility use at least one of these dose optimization techniques: automated exposure control; mA and/or kV adjustment per patient size (includes targeted exams where dose is matched to clinical indication); or iterative reconstruction. Contrast material: ISOVUE 370; Contrast volume: 70 ml; Contrast route: INTRAVENOUS (IV); COMPARISON: CR XR CHEST 2V 10/29/2020 5:08 PM FINDINGS: Pulmonary arteries: Normal. No pulmonary emboli. Aorta: Unremarkable. No aortic aneurysm. No aortic dissection. Lungs: Unremarkable. No consolidation. No masses. Pleural spaces: Unremarkable. No pneumothorax. No pleural effusion. Heart: Unremarkable. No cardiomegaly. No pericardial effusion. Lymph nodes: Unremarkable. No enlarged lymph nodes. Bones/joints: Multilevel anterior bridging osteophyte formation. No acute fracture. Soft tissues: Unremarkable. IMPRESSION: No acute findings.
[2020-10-29 19:38] LABS: Coronavirus 19, PCR Not Detected (NotDetected); Influenza A, PCR Not Detected (NotDetected); Influenza B, PCR Not Detected (NotDetected)
[2020-10-29 20:00] VITALS: BP 177/72; PULSE 97; O2SAT 97
[2020-10-29 20:30] VITALS: BP 163/58; PULSE 97; O2SAT 97
[2020-10-29 20:52] VITALS: BP 161/73; PULSE 98; RESP 20; TEMP 36.8; O2SAT 96
== END 2020-10-29 20:52 | disposition home or self-care (01) ==
LOC: UTC 17:38 → ER 17:42
PROVIDERS: Emergency Medicine; Emergency Provider Nurse Practitioner Family; PCP Family Medicine
DX: R60.0 Localized edema (principal); R06.00 Dyspnea, unspecified; F41.8 Other specified anxiety disorders; I10 Essential (primary) hypertension; E78.5 Hyperlipidemia, unspecified; Z88.0 Allergy status to penicillin
CPT/HCPCS: 71046; 71275; 80053; 83880; 84484; 85025; 93005; 96374; 99284; Q9967; U0003

== ENCOUNTER 2020-12-08 23:32 | Emergency (ER) | payer MEDICARE, SELFPAY ==
[2020-12-08 23:31] VITALS: BP 130/48; PULSE 92; RESP 19; TEMP 36.5; O2SAT 96; BMI 46.6
--- NOTE | 2020-12-08 23:51 | ECG_ITS ---
APPROVED REPORT Exam: Resting ECG HR:86 bpm ECG Measurements Heart Rate 86 AXES [place] 184 P 74 QRSd 70 QRS 45 QT 368 T 41 QTc 440 Conclusion Normal sinus rhythm Normal ECG Electronically signed by : Humberto Camarena MD 12/09/2020 17:35:08
[2020-12-09 00:01] LABS: POC Glucose,Bedside 152 (70-110)
[2020-12-09 00:12] VITALS: BP 121/58; PULSE 89; O2SAT 95
--- NOTE | 2020-12-09 00:19 | CT_ITS ---
PROCEDURE INFORMATION: Exam: CT Head Without Contrast Exam date and time: 12/09/2020 12:19 AM Age: 75 years old Clinical indication: Dizziness TECHNIQUE: Imaging protocol: Computed tomography of the head without contrast. 3D rendering (Not supervised by radiologist): MIP and/or 3D reconstructed images were created by the technologist. Radiation optimization: All CT scans at this facility use at least one of these dose optimization techniques: automated exposure control; mA and/or kV adjustment per patient size (includes targeted exams where dose is matched to clinical indication); or iterative reconstruction. COMPARISON: MR HEAD/BRAIN WO/W CON 06/15/2020 1:49 PM FINDINGS: Brain: Age appropriate atrophy and small vessel ischemic change. No evidence of intracranial hemorrhage, mass effect, midline shift or extra-axial fluid collections. Midline structures are normal. Brenner-white matter differentiation is normal. Cerebral ventricles: No ventriculomegaly. Paranasal sinuses: Visualized sinuses are unremarkable. No fluid levels. Mastoid air cells: Visualized mastoid air cells are well aerated. Vasculature: Carotid atherosclerotic calcification. Bones/joints: Unremarkable. No acute fracture. Soft tissues: Unremarkable. IMPRESSION: No acute intracranial abnormality.
[2020-12-09 00:20] LABS: Basophils # 0.1 K/mm3 (0-0.2); Basophils % 0.9 % (0.1-2.0); Eosinophils # 0.3 K/mm3 (0.0-0.4); Eosinophils % 3.9 % (0.1-12.0); Hematocrit 40.6 % (37.0-47.0); Hemoglobin 12.8 g/dL (12.2-16.2); Lymphocytes # 0.8 K/mm3 (0.7-4.5); Lymphocytes % 11.3 % (10-50); Mean Corpuscular HGB Conc 31.6 g/dL (31.8-35.4); Mean Corpuscular Hemoglobin 29.6 pg (27.0-31.2); Mean Corpuscular Volume 93.7 fl (81-99); Monocytes # 0.3 K/mm3 (0.1-1.0); Monocytes % 4.7 % (1.7-9.3); Neutrophils # 5.5 K/mm3 (1.8-7.8); Neutrophils % 79.1 % (37.0-80.0); Platelet Count 152 K/mm3 (142-424); Red Blood Count 4.33 M/mm3 (4.20-5.40); Red Cell Distribution Width 14.6 % (11.5-17.5); White Blood Count 6.9 K/mm3 (4.8-10.8)
[2020-12-09 00:21] LABS: Chloride 102 mmol/L (98-107); Sodium 139 mmol/L (136-145)
--- NOTE | 2020-12-09 00:21 | HMH.EDDIZZ ---
ED Disposition Clinical Impression: Benign paroxysmal positional vertigo Qualifiers: Laterality: unspecified laterality Qualified Code(s): H81.10 - Benign paroxysmal vertigo, unspecified ear Disposition: Home, Self-Care Condition on Discharge: Good Instructions: Dizziness, Nonvertigo Additional Instructions: call pcp in am and recheck if needed Referrals: Isha Peñaloza MD [Primary Care Provider] - - Critical Care Critical Care Time: No Attestation: On 12/08/20, the high probability of a clinically significant, sudden or life threatening deterioration of the following system(s) required my full and direct attention, intervention and personal management. The time I documented below is in addition to time spent performing reported procedures but includes the following listed in this critical care notation. Medical Decision Making - Medical Records Medical records reviewed: Yes: I reviewed the patient's medical records. - Lele Inquiry Pt receiving controlled substance: No Vital Signs: 12/08/20 23:31 12/09/20 00:12 12/09/20 01:00 Temperature 97.7 F Temperature Source Oral Pulse Rate 89 94 H Pulse Rate [Right] 92 H Respiratory Rate 19 24 Blood Pressure 121/58 L 122/55 L Blood Pressure [Right Arm] 130/48 L Blood Pressure Mean [Right Arm] 75 Blood Pressure Source [Right Arm] Automatic Cuff Blood Pressure Position [Right Arm] Supine 02 Sat by Pulse Oximetry 96 95 94 L Oxygen Delivery Method Room Air - Lab Data Lab results reviewed: Yes: I reviewed the patient's lab results. Lab Results 12/08/20 23:48: WBC 6.9, RBC 4.33, Hgb 12.8, Hct 40.6, MCV 93.7, MCH 29.6, MCHC 31.6 L, RDW 14.6, Plt Count 152, MPV 9.0, Neut % (Auto) 79.1, Lymph % (Auto) 11.3, [place] % (Auto) 4.7, Eos % (Auto) 3.9, Baso % (Auto) 0.9, Neut # (Auto) 5.5, Lymph # (Auto) 0.8, [place] # (Auto) 0.3, Eos # (Auto) 0.3, Baso # (Auto) 0.1, ESR 24 12/08/20 23:48: Sodium 139, Potassium 4.5, Chloride 102, Carbon Dioxide 31 H, Anion Gap 10.5, BUN 22 H, Creatinine 0.90, Estimated Creat Clear 40, Estimated GFR 61, Est GFR ( Amer) 74, Glucose 183 H, Calcium 9.0, Total Bilirubin 0.4, AST 25, ALT 14, Alkaline Phosphatase 109, Troponin I < 0.01, C-Reactive Protein 10.3 H, NT-Pro-B Natriuret Pep 106, Total Protein 6.5, Albumin 4.0, Globulin 2.5, Albumin/Globulin Ratio 1.6, Procalcitonin 0.065 12/08/20 23:53: POC Glucose 152 H 12/09/20 00:30: SARS-CoV-2 (PCR) Not detected, Influenza A Untype (PCR) Not detected, Influenza Type B (PCR) Not detected 12/09/20 01:24: Urine Color Yellow, Urine Appearance Clear, Urine pH 5.5, Ur Specific [place] >= 1.030, Urine Protein Negative, Urine Glucose (UA) Negative, Urine Ketones Negative, Urine Blood Trace-i, Urine Nitrate Negative, Urine Bilirubin Negative, Urine Urobilinogen 0.2, Ur Leukocyte Esterase Negative, Urine WBC 3-5, Ur Squamous Epith Cells 3-5, Urine Bacteria 1+, Urine Mucus 1+ Result diagrams: 12/08/20 23:48 12/08/20 23:48 Orders (Tests/Meds): ED MEDICATIONS Generic Name Dose Route Start Last Admin Trade Name Freq PRN Reason Stop Dose Admin Sodium Chloride 1,000 mls @ 999 mls/hr 12/09/20 00:15 12/09/20 00:53 Sod Chlor 0.9% 1000ml Bag IV 12/09/20 01:15 999 mls/hr .Q1H1M ALCIRA Administration Discontinued Medications Generic Name Dose Route Start Last Admin Trade Name Freq PRN Reason Stop Dose Admin Ondansetron HCl 4 mg 12/09/20 00:15 12/09/20 00:53 Ondansetron 4mg/2ml Vial IV 12/09/20 00:16 4 mg ONCE ONE Administration ORDERS Category Date Time Status Troponin I Q3H Lab 12/09/20 03:15 Ordered Troponin I Q3H Lab 12/09/20 06:15 Ordered - CT Data CT Scan: Head Time Received: 02:[address] Reviewed: Yes: I have viewed the radiologist's interpretation Preliminary Findings: Normal/NAD - ECG Data Tracing #1 Normal Sinus Rhythm: Yes Ischemic changes: non-specific ST-T wave changes - Reevaluation(s) Time: 02:05 Reevaluation #1: better abl
[2020-12-09 00:22] LABS: Potassium 4.5 mmoL/L (3.5-5.1)
[2020-12-09 00:24] LABS: Alanine Aminotransferase 14 U/L (12-78); Albumin/Globulin Ratio 1.6 (1.1-1.8); Alkaline Phosphatase 109 U/L (38-126); Anion Gap 10.5 mEq/L (5-15); Aspartate Amino Transferase 25 U/L (14-36); Bilirubin,Total 0.4 mg/dl (0.2-1.3); Blood Urea Nitrogen 22 mg/dl (7-17); Carbon Dioxide 31 mmol/L (22.0-30.0); Creatinine Clearance Estimated 40 mL/min (50-200); Estimated Glomerular Filt Rate 61 ml/min (>60); GFR (African American) 74 ML/MIN (>60); Globulin 2.5 g/dL (1.3-3.2); Total Protein,Serum 6.5 g/dl (6.3-8.2)
[2020-12-09 00:25] LABS: Glucose 183 mg/dl (74-100)
[2020-12-09 00:30] LABS: C-Reactive Protein 10.3 mg/L (0-4)
[2020-12-09 00:36] LABS: NT Pro Brain Natriuretic Pep. 106 pg/mL (0-125)
[2020-12-09 00:37] LABS: Coronavirus 19, PCR Not Detected (NotDetected); Influenza A, PCR Not Detected (NotDetected); Influenza B, PCR Not Detected (NotDetected)
[2020-12-09 00:53] LABS: Erythrocyte Sedimentation Rate 24 mm/hr (0-30)
[2020-12-09 00:54] LABS: Troponin I < 0.01 ng/ml (0.00-0.034)
[2020-12-09 01:00] VITALS: BP 122/55; PULSE 94; RESP 24; O2SAT 94
[2020-12-09 01:29] LABS: Appearance,Urine CLEAR (Clear); Bilirubin,Urine Negative (Negative); Blood, Urine TRACE-I (Negative); Color,Urine YELLOW (Yellow); Glucose,Urine (UA) Negative (Negative); Ketones,Urine Negative (Negative); Leukocyte Esterase,Urine Negative (Negative); Microscopic, Urine URINE MICROSCOPIC (MICROSCOPIC); Nitrate,Urine Negative (Negative); PH,Urine 5.5 (5.0-8.5); Protein,Urine Negative (Negative); Specific Gravity, Urine >= 1.030 (1.005-1.030); Urobilinogen,Urine 0.2 EU/dl (0.2)
--- NOTE | 2020-12-09 01:29 | PC.NURSE ---
Pt walked to the bathroom to give urine sample, with assistance of 2
--- NOTE | 2020-12-09 01:31 | PC.NURSE ---
pt ambulated to the br with staff x2 assist. Pt did c/o occasional dizziness that was dissipated with breaks in ambulation.
[2020-12-09 01:40] LABS: Procalcitonin 0.065 ng/mL (0.0-2.0)
[2020-12-09 01:55] LABS: Bacteria,Urine 1+ /lpf; Mucus,Urine 1+ /lpf
[2020-12-09 02:02] VITALS: BP 140/64; PULSE 101; RESP 16; TEMP 37.1; O2SAT 93
== END 2020-12-09 02:35 | disposition home or self-care (01) ==
PROVIDERS: Emergency Provider Emergency Medicine; PCP Family Medicine
DX: H81.10 Benign paroxysmal vertigo, unspecified ear (principal); F41.8 Other specified anxiety disorders; Z88.0 Allergy status to penicillin; R06.09 Other forms of dyspnea; Z20.822 Contact with and (suspected) exposure to COVID-19
CPT/HCPCS: 70450; 80053; 81001; 82962; 83880; 84145; 84484; 85025; 85651; 86140; 93005; 99282; C9803; J2405; U0003; U0005

== ENCOUNTER → 2021-04-11 13:10 | Outpatient (CLI) | payer MEDICARE, SELFPAY | PROVIDERS: PCP Family Medicine; Visit Provider Nurse Practitioner | DX: Z20.822 Contact with and (suspected) exposure to COVID-19 (principal) | CPT/HCPCS: C9803; U0003; U0005 ==

== ENCOUNTER → 2021-11-01 12:26 | Outpatient (CLI) | payer MEDICARE, SELFPAY ==
--- NOTE | 2021-11-01 12:33 | CA_ITS ---
FINAL REPORT TECHNIQUE: Color Doppler, duplex Doppler and dunlap scale sonography of the bilateral neck arterial vasculature was performed. Velocities were measured in the carotid arteries. Stenosis evaluation based on the validated velocity criteria. CLINICAL HISTORY: DYANA,HTN,OBESITY FINDINGS: The peak systolic velocity of the right common carotid artery is 104 cm/s. The peak systolic velocity of the right internal carotid artery is 143 cm/s and end diastolic velocity 9 cm/s. The ICA/CCA ratio is 2.06. A mild and moderate amount of plaque is present. The right external carotid artery is patent. The right vertebral artery is patent with antegrade flow. The peak systolic velocity of the left common carotid artery is 96 cm/s. The peak systolic velocity of the left internal carotid artery is 141 cm/s and end diastolic velocity 25 cm/s. The ICA/CCA ratio is 1.49. A mild and moderate amount of plaque is present. The left external carotid artery is patent.The left vertebral artery is patent with antegrade flow. IMPRESSION: Less than 50% bilateral carotid stenosis. Bilateral patent vertebral arteries with antegrade flow. If indicated, CTA or MRA could further evaluate. Reviewed, Interpreted and Dictated by Nolan Kimble III, MD Transcribed by Alberta Freedman Authenticated and [facility]
== END ==
PROVIDERS: PCP Family Medicine; Visit Provider Family Medicine
DX: I65.22 Occlusion and stenosis of left carotid artery (principal)
CPT/HCPCS: 93880

== ENCOUNTER → 2021-11-04 11:09 | Outpatient (CLI) | payer MEDICARE, SELFPAY | PROVIDERS: PCP Family Medicine; Visit Provider Ophthalmology | DX: Z01.812 Encounter for preprocedural laboratory examination (principal); Z20.822 Contact with and (suspected) exposure to COVID-19 | CPT/HCPCS: C9803; U0003; U0005 ==

== ENCOUNTER → 2021-12-09 08:12 | Outpatient (CLI) | payer MEDICARE, SELFPAY | PROVIDERS: PCP Family Medicine; Visit Provider Ophthalmology | DX: Z01.812 Encounter for preprocedural laboratory examination (principal); Z20.822 Contact with and (suspected) exposure to COVID-19; H25.011 Cortical age-related cataract, right eye | CPT/HCPCS: C9803; U0003; U0005 ==

== ENCOUNTER 2021-12-12 07:16 | Day surgery (SDC) | payer MEDICARE, SELFPAY ==
[2021-12-07 10:17] VITALS: BMI 44.2
[2021-12-12 08:06] VITALS: BP 190/93; PULSE 107; RESP 19; TEMP 36.4; O2SAT 96
[2021-12-12 08:26] LABS: POC Glucose,Bedside 193 (70-110)
[2021-12-12 09:06] VITALS: BP 153/69; PULSE 101; RESP 20; O2SAT 97
[2021-12-12 09:11] VITALS: BP 132/61; PULSE 97; RESP 20; O2SAT 98
[2021-12-12 09:16] VITALS: BP 146/67; PULSE 97; RESP 20; O2SAT 100
[2021-12-12 09:21] VITALS: BP 141/35; PULSE 96; RESP 20; O2SAT 100
[2021-12-12 09:25] VITALS: BP 164/81; PULSE 99; RESP 16; TEMP 37; O2SAT 99
== END 2021-12-12 09:39 | disposition home or self-care (01) ==
LOC: OR 07:17
PROVIDERS: PCP Family Medicine; Visit Provider Ophthalmology
DX: H26.9 Unspecified cataract (principal); E11.9 Type 2 diabetes mellitus without complications; Z79.899 Other long term (current) drug therapy
CPT/HCPCS: 66984; 82962; V2632

== ENCOUNTER → 2021-12-23 11:11 | Outpatient (CLI) | payer MEDICARE, SELFPAY | PROVIDERS: PCP Family Medicine; Visit Provider Ophthalmology | DX: Z01.812 Encounter for preprocedural laboratory examination (principal); Z20.822 Contact with and (suspected) exposure to COVID-19 | CPT/HCPCS: C9803; U0003; U0005 ==

== ENCOUNTER 2021-12-26 07:22 | Day surgery (SDC) | payer MEDICARE, SELFPAY ==
[2021-12-22 10:33] VITALS: BMI 44.5
[2021-12-26 08:14] VITALS: BP 186/85; PULSE 102; RESP 18; TEMP 36.1; O2SAT 94
[2021-12-26 08:39] LABS: POC Glucose,Bedside 153 (70-110)
[2021-12-26 09:19] VITALS: BP 147/69; PULSE 96; RESP 18; O2SAT 97
[2021-12-26 09:25] VITALS: BP 153/67; PULSE 98; RESP 18; O2SAT 96
[2021-12-26 09:30] VITALS: BP 138/61; PULSE 98; RESP 16; RESP 18; O2SAT 93
[2021-12-26 09:39] VITALS: BP 157/80; PULSE 100; RESP 16; TEMP 36.2; O2SAT 92
== END 2021-12-26 09:45 | disposition home or self-care (01) ==
LOC: OR 07:24
PROVIDERS: PCP Family Medicine; Visit Provider Ophthalmology
DX: H25.812 Combined forms of age-related cataract, left eye (principal); E11.36 Type 2 diabetes mellitus with diabetic cataract; Z79.899 Other long term (current) drug therapy
CPT/HCPCS: 66984; 82962; V2632

== ENCOUNTER → 2021-12-27 12:25 | Outpatient (CLI) | payer MEDICARE, SELFPAY ==
--- NOTE | 2021-12-27 12:30 | XR_ITS ---
FINAL REPORT CLINICAL HISTORY: WHEEZING COMPARISON: 10/29/2020 FINDINGS: Two views of the chest were obtained. The heart size and pulmonary vascularity are within normal limits. The mediastinum is normal. No acute pulmonary abnormality is identified. There is no pneumothorax. The bony thorax is intact. IMPRESSION: No active cardiopulmonary disease. Reviewed, Interpreted and Dictated by Nolan Kimble III, MD Transcribed by Martha Sebastian Authenticated and [facility]
== END ==
PROVIDERS: PCP Family Medicine; Visit Provider Family Medicine
DX: R06.2 Wheezing (principal)
CPT/HCPCS: 71046

== ENCOUNTER 2022-04-29 17:28 | Emergency (ER) | payer MEDICARE, SELFPAY ==
--- NOTE | 2022-04-29 17:39 | EXP.UTC ---
Discharge Plan Disposition Patient Disposition: Home, Self-Care Condition: Good Prescriptions Prescriptions: New clotrimazole-betamethasone 1-0.05 % cream 1 applic topical BID 10 Days Qty: 15 0RF mupirocin 2 % ointment 1 applic topical TID 7 Days Qty: 15 0RF cephalexin 500 mg capsule 500 mg PO QID Qty: 40 0RF No Action meclizine 25 mg tablet 25 mg PO TID PRN (Reason: Dizziness) tramadol 50 mg tablet 50 mg PO Q6 furosemide 40 MG tablet 40 mg PO DAILY Label Comments: TAKE 1 TABLET EVERY DAY IN THE MORNING citalopram 40 MG tablet 40 mg PO DAILY simvastatin 40 MG tablet 40 mg PO HS Label Comments: TAKE 1 TABLET ONCE A DAY IN THE EVENING ergocalciferol (vitamin D2) 50,000 UNIT capsule 50,000 units PO WEEKLY Label Comments: take 1 capsule by mouth every week lisinopril-hydrochlorothiazide 1 EACH tablet 1 each PO DAILY Rx Instructions: 20-12.5mg glipizide 10 MG tablet extended release 24hr 10 mg PO BID spironolactone 25 mg tablet 25 mg PO BIDP PRN (Reason: fluid) meloxicam 15 mg Tablet 15 mg PO DAILY PRN (Reason: Inflammation) hydroxyzine HCl 25 mg tablet 25 mg PO Q4-6H Referrals Follow up/Referrals: Isha Peñaloza MD [Primary Care Provider] - See instructions Activity Restrictions/Add. Instructions Additional Instructions/Restrictions: Drink plenty of fluids. Take tylenol or ibuprofen for pain or fever. Take the medications as directed. Follow up with your regular doctor. GO TO THE ER FOR ANY WORSENING SYMPTOMS Put the clotrimazole-betamethazone on the skin irritation on your neck and arms. Put the mupirocin (bactroban) on the place on your buttock. Clinical Impressions Clinical Impression: Intertrigo, Ulcer of buttock Instructions Patient Instructions: Betamethasone Topical, Mupirocin Discharge ED Provider: Rick Buckley [facility] General Stated complaint: sore on bottom, neck dryness Time Seen by Provider: 04/29/22 17:39 History of Present Illness Provider Complaint: She states that for the past 2 weeks approx she has had irritation of the skin on the front of her neck and the bends of her elbows. She also has a wound on her right buttock that she wants to get checked that she does not know what caused it. She is dependent on a wheel chair. Related Data Home Medications Medication Instructions Recorded Confirmed citalopram 40 mg tablet 40 mg PO DAILY Depression 03/18/19 03/21/22 ergocalciferol (vitamin D2) 1,250 50,000 units PO WEEKLY Supplement 03/18/19 03/21/22 mcg (50,000 unit) capsule furosemide 40 mg tablet 40 mg PO DAILY DIURETIC 03/18/19 03/21/22 glipizide 10 mg tablet, extended 10 mg PO BID Diabetes 03/18/19 03/21/22 release 24 hr lisinopril 20 1 each PO DAILY blood pressure 03/18/19 03/21/22 mg-hydrochlorothiazide 12.5 mg tablet simvastatin 40 mg tablet 40 mg PO HS Cholesterol 03/18/19 03/21/22 meclizine 25 mg tablet 25 mg PO TID PRN Dizziness 07/13/20 03/21/22 tramadol 50 mg tablet 50 mg PO Q6 Pain 10/19/20 03/21/22 meloxicam 15 mg tablet 15 mg PO DAILY PRN Inflammation 12/07/21 03/21/22 spironolactone 25 mg tablet 25 mg PO BIDP PRN fluid 12/07/21 03/21/22 hydroxyzine HCl 25 mg tablet 25 mg PO Q4-6H ITCHING 12/22/21 03/21/22 Previous Rx's Medication Instructions Recorded cephalexin 500 mg capsule 500 mg PO QID #40 caps 04/29/22 clotrimazole-betamethasone 1 1 applic topical BID 10 days #15 04/29/22 %-0.05 % topical cream grams mupirocin 2 % topical ointment 1 applic topical TID 7 days #15 04/29/22 grams Allergies Allergy/AdvReac Type Severity Reaction Status Date / Time Penicillins Allergy Intermediate I-ITCHING, Verified 04/29/22 18:10 RASH, SWELLING PFSH [facility] Disclaimer: The information contained in this section may have been updated after the patient was seen, as this information can be updated by other users.
[2022-04-29 17:40] VITALS: BP 196/88; PULSE 115; RESP 20; TEMP 36.8; O2SAT 95; BMI 40.2
[2022-04-29 19:04] VITALS: BP 196/88; PULSE 115; RESP 20; TEMP 36.8; O2SAT 95
== END 2022-04-29 19:05 | disposition home or self-care (01) ==
PROVIDERS: Emergency Provider Nurse Practitioner Family; PCP Family Medicine
DX: Z99.3 Dependence on wheelchair (principal); L30.4 Erythema intertrigo; L98.419 Non-pressure chronic ulcer of buttock with unspecified severity
CPT/HCPCS: 99212; 99213; G0463

== ENCOUNTER 2023-07-03 23:34 | Inpatient (IN) | payer MEDICARE, SELFPAY ==
[2023-07-03 23:35] VITALS: BP 114/78; PULSE 95; RESP 16; TEMP 37.1; O2SAT 95; BMI 41.3
--- NOTE | 2023-07-03 23:40 | CT_ITS ---
PROCEDURE INFORMATION: Exam: CTA Chest With Contrast Exam date and time: 07/04/2023 12:30 AM Age: 77 years old Clinical indication: Shortness of breath; Additional info: Le edema, acute SOA TECHNIQUE: Imaging protocol: Computed tomographic angiography of the chest with contrast. Exam focused on the arteries. 3D rendering (Not supervised by radiologist): MIP and/or 3D reconstructed images were created by the technologist. Radiation optimization: All CT scans at this facility use at least one of these dose optimization techniques: automated exposure control; mA and/or kV adjustment per patient size (includes targeted exams where dose is matched to clinical indication); or iterative reconstruction. Contrast material: ISOVUE; Contrast volume: 70 ml; Contrast route: INTRAVENOUS (IV); COMPARISON: CT ANGIO CHEST PE PROTOCOL 10/29/2020 7:50 PM FINDINGS: Tubes, catheters and devices: Gastric lap band. Pulmonary arteries: Normal. No pulmonary emboli. Aorta: Unremarkable. No aortic aneurysm. No aortic dissection. Lungs: Scattered atelectasis bilaterally. No pneumonia. Pleural spaces: Unremarkable. No pneumothorax. No pleural effusion. Heart: Unremarkable. No cardiomegaly. No pericardial effusion. Lymph nodes: Unremarkable. No enlarged lymph nodes. Bones/joints: Multilevel anterior bridging osteophyte formation. No acute fracture. Soft tissues: Unremarkable. IMPRESSION: No acute findings.
--- NOTE | 2023-07-03 23:40 | XR_ITS ---
PROCEDURE INFORMATION: Exam: XR Chest Exam date and time: 07/03/2023 11:43 PM Age: 77 years old Clinical indication: Shortness of breath; Additional info: Acute SOA, le edema TECHNIQUE: Imaging protocol: Radiologic exam of the chest. Views: 1 view. COMPARISON: CR XR CHEST 2V 12/27/2021 12:33 PM FINDINGS: Lungs: Mild atelectasis in the lower lung zones. No consolidation. Pleural spaces: Unremarkable. No pleural effusion. No pneumothorax. Heart/Mediastinum: Stable cardiomegaly. Bones/joints: Unremarkable. IMPRESSION: No acute findings.
[2023-07-03] MEDS: ASPIRIN 81MG CHEWABLE TABLET 324 MG PO (23:45)
[2023-07-03 23:50] VITALS: PULSE 91
[2023-07-03] MEDS: IPRATROPIUM/ALBUTEROL 3 ML NEB 6 ML IH (23:50)
[2023-07-03 23:56] LABS: Basophils # 0.1 K/mm3 (0-0.2); Basophils % 0.9 % (0.1-2.0); Eosinophils # 0.3 K/mm3 (0.0-0.4); Eosinophils % 2.8 % (0.1-12.0); Hematocrit 38.3 % (37.0-47.0); Lymphocytes # 1.1 K/mm3 (0.7-4.5); Lymphocytes % 10.1 % (10-50); Mean Corpuscular HGB Conc 36.6 g/dL (31.8-35.4); Mean Corpuscular Hemoglobin 34.4 pg (27.0-31.2); Mean Corpuscular Volume 94.1 fl (81-99); Mean Platelet Volume 8.7 fl (7.4-10.4); Monocytes # 0.6 K/mm3 (0.1-1.0); Monocytes % 5.4 % (1.7-9.3); Neutrophils # 8.6 K/mm3 (1.8-7.8); Neutrophils % 80.8 % (37.0-80.0); Platelet Count 191 K/mm3 (142-424); Red Blood Count 4.07 M/mm3 (4.20-5.40); Red Cell Distribution Width 14.5 % (11.5-17.5); White Blood Count 10.6 K/mm3 (4.8-10.8)
[2023-07-03] MEDS: ONDANSETRON 4MG/2ML VIAL 4 MG IV (23:56)
[2023-07-04] VITALS (28 sets, daily range): BP systolic 99–155; BP diastolic 44–95; PULSE 80–110; RESP 16–22; TEMP 36.5–36.8; O2SAT 80–98; BMI 42.0; BMI 43.9
[2023-07-04 00:02] LABS: Alanine Aminotransferase 21 U/L (12-78); Albumin/Globulin Ratio 1.6 (1.1-1.8); Alkaline Phosphatase 124 U/L (38-126); Anion Gap 11.7 mEq/L (5-15); Aspartate Amino Transferase 26 U/L (14-36); Bilirubin,Total 0.9 mg/dl (0.2-1.3); Blood Urea Nitrogen 12 mg/dl (7-17); Calcium 9.2 mg/dl (8.4-10.2); Carbon Dioxide 32 mmol/L (22.0-30.0); Chloride 96 mmol/L (98-107); Creatinine Clearance Estimated 38 mL/min (50-200); Estimated Glomerular Filt Rate 82 ml/min (>60); GFR (African American) 99 ML/MIN (>60); Globulin 2.5 g/dL (1.3-3.2); Glucose 330 mg/dl (74-100); Potassium 3.7 mmoL/L (3.5-5.1); Sodium 136 mmol/L (136-145); Total Protein,Serum 6.5 g/dl (6.3-8.2)
[2023-07-04 00:03] LABS: Activated Partial Thrombo Time 26.2 seconds (22.8-30.6)
--- NOTE | 2023-07-04 00:04 | HMH.EDCP ---
Discharge Plan Disposition Patient Disposition: Admitted Chief Complaint: Shortness of Breath/Dyspnea Prescriptions Prescriptions: No Action citalopram 40 mg tablet 40 mg PO DAILY lisinopril-hydrochlorothiazide 20-12.5 mg tablet 1 tab PO DAILY ondansetron HCl 8 mg tablet 8 mg PO Q8HP PRN (Reason: Nausea And Vomiting) glipizide 10 mg tablet extended release 24hr 10 mg PO DAILY promethazine 12.5 mg tablet 12.5 mg PO Q8HP PRN (Reason: Nausea And Vomiting) ergocalciferol (vitamin D2) [Vitamin D2] 1,250 mcg (50,000 unit) capsule 1,250 mcg PO WEEKLY Ozempic 0.25 mg or 0.5 mg (2 mg/3 mL) pen injector 0.5 mg SQ WEEKLY Referrals Follow up/Referrals: Provider,Referral, MD [Referring] - See instructions Clinical Impressions Clinical Impression: Congestive heart failure, Acute hypoxemic respiratory failure Discharge ED Provider: Sandeep Walters HPI General Chief Complaint: Shortness of Breath/Dyspnea Stated Complaint: SOA Time Seen by Provider: 07/03/23 23:38 Mode of Arrival: EMS Source of Information: Patient and EMS Limitations: No Limitations Description of Symptoms (Recalled from ER Triage Doc. by RN): Pt presents to ED via EMS for SOB and chest discomfort. Pt states this has been going on for a couple of days but the SOB seemed to get worse tonight. Pt is A&O*4 at this time. History of Present Illness HPI narrative: 77-year-old female history of follicular lymphoma currently on chemotherapy, chronic respiratory failure of unknown etiology not currently on oxygen, hypertension, hyperlipidemia, type 2 diabetes, chronic deconditioning presenting with shortness of breath. Patient states that she was taking her sister to [place] this morning. On the way back from [place], patient began feeling acutely short of breath. No associated chest pains, but patient states she was unable to catch her breath, but was able to make at home. Shortness of breath continued at home, patient called EMS for further evaluation. Patient states that she does have chronic lower extremity edema, this has not gotten any better or worse. Last chemotherapy was a couple weeks prior to this visit and was administered in [place]. No cough, fevers, chills, nausea or vomiting, diaphoresis, or any other concerns. Was recently increased on her daily 20 mg Lasix to 40. No medication changes otherwise. Please note that above description of symptoms, in this electronic medical record under categorization of recalled from ER triage doctor by RN are reflective of an initial nursing assessment, however, is not reflective of my full history and physical exam that was personally taken and clarified. Consequentially, this preceding description of symptoms, which may include the patient's categorized chief complaint in the EMR, do not reflect my personal clinical impression, and the ultimate description of history of present illness and patient stated complaints should be deferred to this section of the note. Unless stated otherwise or congruent with this section of the note, additional signs, symptoms, or incongruence should be interpreted as inaccurate with my clinical impression. Related Data Home Medications Medication Instructions Recorded Confirmed citalopram 40 mg tablet 40 mg PO DAILY 07/04/23 07/04/23 ergocalciferol (vitamin D2) 1,250 1,250 mcg PO WEEKLY 07/04/23 07/04/23 mcg (50,000 unit) capsule (Vitamin D2) glipizide 10 mg tablet, extended 10 mg PO DAILY 07/04/23 07/04/23 release 24 hr lisinopril 20 1 tab PO DAILY 07/04/23 07/04/23 mg-hydrochlorothiazide 12.5 mg tablet ondansetron HCl 8 mg tablet 8 mg PO Q8HP PRN Nausea And 07/04/23 07/04/23 Vomiting promethazine 12.5 mg tablet 12.5 mg PO Q8HP PRN Nausea And 07/04/23 07/04/23 Vomiting semaglutide 0.25 mg or 0.5 mg (2 0.5 mg SQ WEEKLY 07/04/23 07/04/23 mg/3 mL) subcutaneous pen injector (Ozempic) Allergies Allergy/AdvReac Type Severity Reaction Status Date / Time Penicillins Allergy Intermediate I-ITCHING, Verified 05/27/23 10:13 RASH, SWELLING PFSH [facility] Disclaimer: The information contained in this section may have been updated after the patient was seen, as this information can be updated by other users. Medical History Sinus headache History of gastroesophageal reflux (GERD) Pneumonia Bronchitis Arthritis Diabetes mellitus, type 2 History of cataract Hyperlipidemia Hypertension Edema Surgical History Hx of cataract surgery H/O left wrist surgery History of ankle surgery left ankle x2 Hx of laparoscopic gastric banding H/O total hysterectomy History of hip replacement right hip Family History Brother Hx of heart surgery Abdominal aortic aneurysm Heart disease Mother Dementia Heart disease Father Prostate cancer Sister Breast cancer Cancer Family/Other Heart attack Social History Smoking Status: Former smoker years smoked: 15 smoking status stop date: 1999 second hand exposure: No alcohol intake: never current occupational status: retired Travel in the last 8 weeks: None household members: spouse housing: house caffeine: Yes ROS Obtained: Yes All systems reviewed & no additional complaints except as documented Physical Exam General General appearance: alert, in no apparent distress and other (Chronically ill, 2 L nasal cannula in place) ENT ENT exam: Present mucous membranes moist Neck Neck exam: Present trachea midline; Absent lymphadenopathy Chest Chest inspection: Present normal inspection and symmetric chest wall rise Respiratory Respiratory exam: Present normal lung sounds bilaterally and other (95% 2 L nasal cannula, unknown baseline); Absent respiratory distress, wheezes, stridor, accessory muscle use or prolonged expiratory phase Cardiovascular Cardiovascular exam: Present regular rate and normal rhythm Extremities Exam Extremities exam: Present edema (2+ lower extremity pitting) Neurological Exam Neurological exam: Present alert, oriented X3 and CN II-XII intact Skin Skin exam: Present warm and dry; Absent cyanosis, diaphoresis or pallor HEART Score HEART Score HEART Score assessment performed?: Yes History (anamnesis): Moderately suspicious ECG: Non-specific disturbance Age: >65 years Risk factors: 3 or more risk factors Troponin: > 3x normal limit HEART Score: 8 Critical Care Critical Care Time Critical Care Time: Yes (resp, cardiac) Attestation: On 07/03/23, the high probability of a clinically significant, sudden or life threatening deterioration of the following system(s) required my full and direct attention, intervention and personal management. The time I documented below is in addition to time spent performing reported procedures but includes the following listed in this critical care notation. Total Time Total Critical Care Time: 45 Medical Decision Making Medical Records Medical records reviewed: Yes I reviewed the patient's medical records. Lele Inquiry Pt receiving controlled substance: No Lele was queried for this patient: No Vital Signs Vital Signs: 07/03/23 23:35 07/03/23 23:50 07/04/23 00:10 Temperature 98.7 F Temperature Source Oral Pulse Rate 91 H Pulse Rate [Left] 95 H Respiratory Rate 16 Blood Pressure Blood Pressure [Right Arm] 114/78 Blood Pressure Mean [Right Arm] 90 02 Sat by Pulse Oximetry 95 80 L Oxygen Delivery Method Nasal Cannula Room Air Oxygen Flow Rate (LPM) 2 07/04/23 00:17 07/04/23 00:21 Temperature Temperature Source Pulse Rate 98 H Pulse Rate [Left] Respiratory Rate 19 Blood Pressure 146/63 H Blood Pressure [Right Arm] Blood Pressure Mean [Right Arm] 02 Sat by Pulse Oximetry 94 L 95 Oxygen Delivery Method Nasal Cannula Nasal Cannula Oxygen Flow Rate (LPM) 2 2 Lab Data Labs: Lab Results 07/03/23 23:47: WBC 10.6, RBC 4.07 L, Hgb 14.0, Hct 38.3, MCV 94.1, MCH 34.4 H, MCHC 36.6 H, RDW 14.5, Plt Count 191, MPV 8.7, Neut % (Auto) 80.8 H, Lymph % (Auto) 10.1, [place] % (Auto) 5.4, Eos % (Auto) 2.8, Baso % (Auto) 0.9, Neut # (Auto) 8.6 H, Lymph # (Auto) 1.1, [place] # (Auto) 0.6, Eos # (Auto) 0.3, Baso # (Auto) 0.1, PT 10.7, INR 0.99, APTT 26.2, Sodium 136, Potassium 3.7, Chloride 96 L, Carbon Dioxide 32 H, Anion Gap 11.7, BUN 12, Creatinine 0.70, Estimated Creat Clear 38, Estimated GFR 82, Est GFR ( Amer) 99, Glucose 330 H, Calcium 9.2, Total Bilirubin 0.9, AST 26, ALT 21, Alkaline Phosphatase 124, Troponin I 0.38 H, NT-Pro-B Natriuret Pep 911 H, Total Protein 6.5, Albumin 4.0, Globulin 2.5, Albumin/Globulin Ratio 1.6 07/04/23 00:03: VBG pH 7.34, VBG pCO2 51.1 H, VBG pO2 35.7, VBG HCO3 27.2, VBG Total CO2 28.8 H, VBG O2 Saturation 66.3, VBG Base Excess 1.5, VBG Lactic Acid 3.3 H 07/03/23 23:47 07/03/23 23:47 Response Orders (Tests/Meds): ED MEDICATIONS Discontinued Medications Generic Name Dose Route Start Last Admin Trade Name Newtonq PRN Reason Stop Dose Admin Albuterol/Ipratropium 6 ml 07/03/23 23:39 07/03/23 23:50 Ipratropium/Albuterol 3 Ml Neb IH 07/03/23 23:40 6 ml ONCE ONE Administration Aspirin 324 mg 07/03/23 23:39 07/03/23 23:45 Aspirin 81mg Chewable Tablet PO 07/03/23 23:40 324 mg ONCE ONE Administration Furosemide 40 mg 07/04/23 00:15 07/04/23 00:23 Furosemide 40mg/4ml Vial IV 07/04/23 00:16 40 mg ONCE ONE Administration Iopamidol 70 ml 07/04/23 00:38 07/04/23 00:39 Iopamidol-370 (76%);100ml Bottle IV 07/04/23 00:39 70 ml ONCE ONE Administration Ondansetron HCl 4 mg 07/03/23 23:51 07/03/23 23:56 Ondansetron 4mg/2ml Vial IV 07/03/23 23:52 4 mg ONCE ONE Administration Promethazine HCl 12.5 mg 07/04/23 00:15 07/04/23 00:26 Promethazine Hcl 25mg/Ml 1ml Vial IM 07/04/23 00:16 12.5 mg ONCE ONE Administration Promethazine HCl 12.5 mg 07/04/23 00:25 07/04/23 00:27 Promethazine Hcl 25mg/Ml 1ml Vial IV 07/04/23 00:26 Not Given ONCE ONE Sodium Chloride 25 ml 07/04/23 00:15 07/04/23 00:24 Sodium Chloride 0.9% 25ml Bag IV 07/04/23 00:16 25 ml ONCE ONE Administration Sodium Chloride 10 ml 07/04/23 00:38 07/04/23 00:39 Sodium Chloride 0.9% 10ml Syr (Rad Only) IV 07/04/23 00:39 10 ml ONCE ONE Administration ORDERS Category Date Time Status CT angio chest PE protocol Stat Cat Scan 07/03/23 23:40 Completed POCUS Point of Care (ER Only) Stat Exams 07/04/23 00:17 Ordered XR chest portable Stat Exams 07/03/23 23:40 Completed Complete Blood Count Auto Diff Stat Lab 07/03/23 23:47 Completed Comprehensive Metabolic Panel Stat Lab 07/03/23 23:47 Completed INR [Prothrombin Time INR] Stat Lab 07/03/23 23:47 Completed NT Pro Brain Natriuretic Pep. Stat Lab 07/03/23 23:47 Completed PTT [Activated Partial Thrombo Time] Stat Lab 07/03/23 23:47 Completed Troponin I Q3H Lab 07/04/23 02:45 Ordered Troponin I Q3H Lab 07/04/23 05:45 Ordered Troponin I Stat Lab 07/03/23 23:47 Completed Urinalysis and Microscopic Stat Lab 07/04/23 01:12 Ordered Urine Culture(cathed specimen) Stat Micro 07/04/23 01:12 Ordered Venous Blood Gas Routine RT 07/04/23 00:03 Completed MDM Narrative Medical Decision Narrative: 77-year-old female history of follicular lymphoma currently on chemotherapy, chronic respiratory failure of unknown etiology not currently on oxygen, hypertension, hyperlipidemia, type 2 diabetes, chronic deconditioning presenting with shortness of breath. Patient states that she was taking her sister to [place] this morning. On the way back from [place], patient began feeling acutely short of breath. No associated chest pains, but patient states she was unable to catch her breath, but was able to make at home. Shortness of breath continued at home, patient called EMS for further evaluation. Patient states that she does have chronic lower extremity edema, this has not gotten any better or worse. Last chemotherapy was a couple weeks prior to this visit and was administered in [place]. No cough, fevers, chills, nausea or vomiting, diaphoresis, or any other concerns. Was recently increased on her daily 20 mg Lasix to 40. No medication changes otherwise. History was obtained via conversation with patient and EMS. On arrival, patient hemodynamically stable, alert, oriented x4, appropriate, GCS 15, moving all extremities spontaneously, pupils equal and reactive to light. Full physical exam performed and significant for chronically ill-appearing woman who is in no acute distress. She does have 2 L nasal cannula in place, she states this is not her baseline and she is not on oxygen at home. Speaking in full sentences. Lungs are clear to auscultation bilaterally, quite in bases, but moving air. No increased work of breathing or accessory muscle usage. Cardiac exam with bilateral lower extremity edema that is 2+ pitting, no extracardiac sounds. Differential includes COPD exacerbation, CHF exacerbation, microvascular coronary artery disease, CHF, ACS, WI, coronary artery dissection, pneumothorax, PE, dissection, pericarditis, myocarditis, pneumothorax, aortic aneurysm, pneumonia, bronchitis, among others. Patient was given DuoNeb, supplemental oxygen, aspirin, Zofran for symptomatic management and correction of underlying abnormalities. Workup independently interpreted and significant for normal CBC. Chemistry nonactionable with normal kidney function. Patient's VBG with normal pH of 7.34. Lactate 3.3. This is likely due to increased work of breathing. Initial troponin 0.38, BNP elevated at 911. Chest x-ray with pulmonary venous congestion and cardiomegaly, no overt edema. CT PE with no acute pulmonary embolus or pneumonia. See radiology read for full review of final results. Independent interpretation of EKG shows sinus rhythm 89 beats a minute with T wave inversions in 3 and aVF, no reciprocal change. AK, QRS, QT intervals within normal limits with normal axis. Patient placed on continuous cardiac monitoring and continuous pulse ox with initial blood pressure 114/78, heart rate 95, saturation 95% 2 L nasal cannula. Heart score 8. Patient was trialed off of oxygen, dropped to low 90s. Upon standing at bedside, oxygen dropped to 80%. Was placed back on 2 L and placed back in bed.. Given cardiomegaly, pulmonary venous congestion, hypoxemia, 40 mg IV Lasix and Shrestha catheter was placed. Hospital medicine was contacted and case was discussed at length, patient to be admitted. Given patient presentation, workup, history, this most likely represents hypoxemic respiratory failure in the setting of what seems to be new onset CHF. Because patient high risk for clinical decompensation, deemed appropriate for inpatient admission. Results were relayed to patient who voiced understanding and patient was agreeable to inpatient admission and management. Patient was admitted to the hospital for further definitive management.
[2023-07-04 00:07] LABS: VBG Base Excess 1.5 mmol/L (-2.4-2.3); VBG HCO3 27.2 mmol/L (23-30); VBG Oxygen Saturation 66.3 % (50-70); VBG PH 7.34 mmol/L (7.31-7.41); VBG PO2 35.7 mmol/L (28-40); VBG Total CO2 28.8 mmol/L (23-27)
[2023-07-04 00:07] LABS: INR 0.99 (0.9-1.1); Prothrombin Time 10.7 seconds (10.1-12.5)
[2023-07-04 00:09] LABS: Lactate Venous 3.3 mmol/L (0.4-2.0); VBG PCO2 51.1 mmol/L (35-51)
[2023-07-04 00:13] LABS: NT Pro Brain Natriuretic Pep. 911 pg/mL (0-450)
[2023-07-04 00:17] LABS: Troponin I 0.38 ng/ml (0.00-0.034)
[2023-07-04] MEDS: FUROSEMIDE 40MG/4ML VIAL 40 MG IV ×2 (00:23→04:04)
[2023-07-04] MEDS: SODIUM CHLORIDE 0.9% 25ML BAG 25 ML IV (00:24)
[2023-07-04] MEDS: PROMETHAZINE HCL 25MG/ML 1ML VIAL 12.5 MG IM (00:26)
[2023-07-04] MEDS: SODIUM CHLORIDE 0.9% 10ML SYR (RAD ONLY) 10 ML IV (00:39)
[2023-07-04] MEDS: IOPAMIDOL-370 (76%);100ML BOTTLE 70 ML IV (00:39)
--- NOTE | 2023-07-04 01:14 | CA_ITS ---
APPROVED REPORT EXAM: Comprehensive 2D, Doppler, and color-flow Echocardiogram Corporate Development Officer: Dominga Quezada RDCS Ht: 5 ft 2 in Wt: 226lbs BSA: 2.01 BP: 146/63 mmHg Indications: SOA,RESP FAILURE,HTN,DM,OBESITY TDS BODY HABITUS M-Mode Dimensions RVDd 1.78 cm (0.9-2.6) LA Diam 3.23 cm (1.9-4.0) LVDd 4.64 cm (3.5-5.7) LVDs 2.99 cm (3.5-5.7) IVSd 1.09 cm (0.6-1.1) PWd 1.05 cm (0.6-1.1) EF (Teich) 65.10% FS 35.60% EDV (Teich) 99.30 mL TAPSE 1.74 (<1.7) ESV (Teich) 34.70 mL LV Diastology E Decel Time 120 (160-240 msec) E/A Ratio 0.7 Aortic Valve LANDON Index 0.57 cm2/m2 AoV Peak Arturo. 145.0 (50-130 cm/s) AO Peak GR. 8.40 mmHg AO Mean GR. 4.10 (<5 mmHg) AO VTI 23.3 (18-25 cm) LANDON (VTI) 1.18 (2.5-4.5 cm2) Mitral Valve MV E Max Arturo. 73.0 (40-130 cm/s) MV A Velocity 109.0 (40-130 cm/s) E/A Ratio 0.67 MV PHT 35.0 ms Left Ventricle The left ventricle is normal size. The left ventricular systolic function is mildly reduced. There is increased LV wall thickness. There is moderate hypokinesis of the inferior and inferoseptal LV otero. The left ventricular diastolic function is normal. LVEF is 45%. Right Ventricle The right ventricle is normal size. The right ventricular systolic function is normal. Atria The left atrium size is normal. The right atrium size is normal. There is no Doppler evidence of interatrial shunt. Aortic Valve The aortic valve is mildly thickened. There is no aortic valvular stenosis. No aortic regurgitation is present. Mitral Valve The mitral valve leaflets are mildly thickened. No evidence of mitral valve stenosis. Trace mitral regurgitation. Tricuspid Valve The tricuspid valve leaflets are thin and pliable. Trace tricuspid regurgitation. RVSP is normal. Pulmonic Valve The pulmonary valve is normal in structure. Trace pulmonic regurgitation. Great Vessels The aortic root is normal in size. The ascending aorta is normal in size. The IVC is not well-visualized. Pericardium There is no pericardial effusion. Other Information Study Quality: Fair Conclusion Mildly reduced LV systolic function (LVEF 45%). Moderate hypokinesis of the inferior and inferoseptal LV otero. No significant valvular stenosis or regurgitation. Electronically signed by : Ashley Washington MD 07/05/2023 01:49:06
[2023-07-04 01:17] LABS: Microscopic, Urine URINE MICROSCOPIC (MICROSCOPIC)
--- NOTE | 2023-07-04 01:18 | EXP.HP ---
History of Present Illness *Admission Date: 07/04/23 *Reason for visit:: SOB *History of present illness: This is a 77-year-old female PMHx of follicular lymphoma currently on chemotherapy, hypertension, hyperlipidemia, type 2 diabetes, chronic deconditioning presented to ED with shortness of breath. Patient states began feeling acutely short of breath today while was driving. No associated chest pains, but patient states she was unable to catch her breath. Shortness of breath continued at home, with not improving therefore patient called EMS for further evaluation. Patient states that she does have chronic lower extremity edema, this has not gotten any better or worse. Last chemotherapy was a couple weeks prior to this visit and was administered in [place]. No cough, fevers, chills, nausea or vomiting, diaphoresis, or any other concerns. Was recently increased on her daily 20 mg Lasix to 40. No medication changes otherwise. Admitted for further management. [facility] Disclaimer: The information contained in this section may have been updated after the patient was seen, as this information can be updated by other users. Medical History Sinus headache History of gastroesophageal reflux (GERD) Pneumonia Bronchitis Arthritis Diabetes mellitus, type 2 History of cataract Hyperlipidemia Hypertension Edema Surgical History Hx of cataract surgery H/O left wrist surgery History of ankle surgery Hx of laparoscopic gastric banding H/O total hysterectomy History of hip replacement Family History Brother Hx of heart surgery Abdominal aortic aneurysm Heart disease Mother Dementia Heart disease Father Prostate cancer Sister Breast cancer Cancer Family/Other Heart attack Social History Smoking Status: Former smoker years smoked: 15 smoking status stop date: 1999 second hand exposure: No alcohol intake: never current occupational status: retired Travel in the last 8 weeks: None household members: spouse housing: house caffeine: Yes Review of Systems Review of Systems Review of systems:: pertinent systems reviewed and negative unless documented below Meds Home Medications and Allergies Home Medications Medication Instructions Recorded Confirmed Type citalopram 40 mg tablet 40 mg PO DAILY 07/04/23 07/04/23 History ergocalciferol (vitamin D2) 1,250 1,250 mcg PO WEEKLY 07/04/23 07/04/23 History mcg (50,000 unit) capsule (Vitamin D2) furosemide 40 mg tablet (Lasix) 40 mg PO DAILY 07/04/23 07/04/23 History glipizide 10 mg tablet, extended 10 mg PO BID 07/04/23 07/04/23 History release 24 hr lisinopril 20 1 tab PO DAILY 07/04/23 07/04/23 History mg-hydrochlorothiazide 12.5 mg tablet meclizine 25 mg tablet 25 mg PO BID PRN Dizziness 07/04/23 07/04/23 History ondansetron HCl 8 mg tablet 8 mg PO Q8HP PRN Nausea And 07/04/23 07/04/23 History Vomiting promethazine 12.5 mg tablet 12.5 mg PO Q8HP PRN Nausea And 07/04/23 07/04/23 History Vomiting semaglutide 0.25 mg or 0.5 mg (2 0.5 mg SQ WEEKLY 07/04/23 07/04/23 History mg/3 mL) subcutaneous pen injector (Ozempic) New Prescriptions to Start Prescriptions: Allergies Allergy/AdvReac Type Severity Reaction Status Date / Time Penicillins Allergy Intermediate I-ITCHING, Verified 05/27/23 10:13 RASH, SWELLING Exam Data for Last 24 hours Vital signs and Labs for Last 24 Hours: Temp Pulse Resp BP Pulse Ox O2 Del Method O2 Flow Rate 98.7 F 98 H 19 146/63 H 95 Nasal Cannula 2 07/03/23 23:35 07/04/23 00:21 07/04/23 00:21 07/04/23 00:21 07/04/23 00:21 07/04/23 00:21 07/04/23 00:21 Laboratory Results - last 24 hr 07/03/23 23:47: WBC 10.6, RBC 4.07 L, Hgb 14.0, Hct 38.3, MCV 94.1, MCH 34.4 H, MCHC 36.6 H, RDW 14.5, Plt Count 191, MPV 8.7, Neut % (Auto) 80.8 H, Lymph % (Auto) 10.1, [place] % (Auto) 5.4, Eos % (Auto) 2.8, Baso % (Auto) 0.9, Neut # (Auto) 8.6 H, Lymph # (Auto) 1.1, [place] # (Auto) 0.6, Eos # (Auto) 0.3, Baso # (Auto) 0.1, PT 10.7, INR 0.99, APTT 26.2, Sodium 136, Potassium 3.7, Chloride 96 L, Carbon Dioxide 32 H, Anion Gap 11.7, BUN 12, Creatinine 0.70, Estimated Creat Clear 38, Estimated GFR 82, Est GFR ( Amer) 99, Glucose 330 H, Calcium 9.2, Total Bilirubin 0.9, AST 26, ALT 21, Alkaline Phosphatase 124, Troponin I 0.38 H, NT-Pro-B Natriuret Pep 911 H, Total Protein 6.5, Albumin 4.0, Globulin 2.5, Albumin/Globulin Ratio 1.6 07/04/23 00:03: VBG pH 7.34, VBG pCO2 51.1 H, VBG pO2 35.7, VBG HCO3 27.2, VBG Total CO2 28.8 H, VBG O2 Saturation 66.3, VBG Base Excess 1.5, VBG Lactic Acid 3.3 H I & O for Last 24 hours: Intake & Output 07/01/23 07/02/23 07/03/23 07/04/23 23:59 23:59 23:59 23:59 Weight 102.512 kg Constitutional Constitutional: no acute distress *Routine HEENT Exam Head: Present normocephalic Eye: Present EOMI and PERRL ENT: Present mucous membranes moist *Routine Neck Exam Neck: Present supple; Absent lymphadenopathy *Routine Respiratory Exam Respiratory: Present CTA bilaterally, rales and normal respiratory effort; Absent respiratory distress *Routine Cardiovascular Exam Cardiovascular: Present RRR, Normal S1 and Normal S2 *Routine Abdominal Exam Abdominal: Present soft and normoactive bowel sounds; Absent tenderness *Routine Rectal Exam Rectal:: deferred *Routine Genitalia Exam Genitalia:: deferred *Routine Extremities Exam Extremities: Present edema and full ROM; Absent cyanosis or clubbing *Routine Skin Exam Skin: Present warm; Absent rash *Routine Neurological Exam Neurological: Present alert, oriented X3, normal reflexes and moving all extremities Routine Psychiatric Exam Psychiatric: Present anxious H&P: Result Imaging and Cardiology EKG: Status: image reviewed by me, Preliminary report and final report Chest x-ray: Status: image reviewed by me, Preliminary report and final report CT scan - chest: Status: image reviewed by me, Preliminary report and final report Assessment and Plan *Assessment and plan (1) Acute hypoxemic respiratory failure: Status: Acute Category: Medical Code(s): J96.01 - Acute respiratory failure with hypoxia (2) Congestive heart failure: Status: Acute Qualifiers: Heart failure chronicity: unspecified Heart failure type: unspecified Qualified Code(s): I50.9 - Heart failure, unspecified Category: Medical Code(s): I50.9 - Heart failure, unspecified (3) Diabetes mellitus: Status: Acute Qualifiers: Diabetes mellitus complication status: without complication Diabetes mellitus penitentiary insulin use: without intermediate school teacher use Diabetes mellitus type: type 2 Qualified Code(s): E11.9 - Type 2 diabetes mellitus without complications Category: Medical Code(s): E11.9 - Type 2 diabetes mellitus without complications (4) Hypertension: Status: Acute Qualifiers: Hypertension type: unspecified Qualified Code(s): I10 - Essential (primary) hypertension Category: Medical Code(s): I10 - Essential (primary) hypertension (5) Morbid obesity with body mass index (BMI) of 40.0 to 44.9 in adult: Status: Acute Category: Medical Code(s): E66.01 - Morbid (severe) obesity due to excess calories; Z68.41 - Body mass index [BMI] 40.0-44.9, adult Plan 77-year-old female PMHx of follicular lymphoma currently on chemotherapy, hypertension, hyperlipidemia, type 2 diabetes, chronic deconditioning presented to ED with shortness of breath. Patient states began feeling acutely short of breath today while was driving. EMS was called and found her hypoxic at home. placed on oxygen and rushed to the hospital. Initial work up significant for normal CBC. Chemistry nonactionable with normal kidney function. Patient's VBG with normal pH of 7.34. Lactate 3.3. This is likely due to increased work of breathing. Initial troponin 0.38, BNP elevated at 911. Chest x-ray with pulmonary venous congestion and cardiomegaly, no overt edema. CT PE with no acute pulmonary embolus or pneumonia. After reassessment patient continue to desat on excerption. Findings discussed with ED. Agreed for admission> plan as follow: -Acute hypoxic respiratory failure: new onset CHF, dyspnea on excerption: Admit patient. cardiac telemetry serial troponin and lactate cardiology consult monitor for chest pain and O2 sat per unit protocols Currently on 2L NC BNP elevated. no available baseline known. lasix 40mg given at ER. repeat another dose monitor for urinary output. Shrestha placed for accurate I/Os. repeat labs in the morning EKG, CTA, CXR, reviewed. ECHO ordered -Diabetes: Uncontrolled last A1c 12.1 sliding scales. monitor accucheck before meals HTN: lisinopril-HCTZ resumed Morbid obesity. encouraged to continue weight management Lovenox for DVT ppx. On protonix Full code Attending attestation Patient was seen and evaluated at the bedside myself, agree with ANDRÉS note. plan for cardiac cath per cardiology, echo, f/u in AM, monitor on cardiac tele, monitor cbc, BMP
[2023-07-04 01:22] LABS: Appearance,Urine CLEAR (Clear); Bilirubin,Urine Negative (Negative); Blood, Urine Negative (Negative); Color,Urine YELLOW (Yellow); Glucose,Urine (UA) 1+ (Negative); Ketones,Urine Negative (Negative); Leukocyte Esterase,Urine Negative (Negative); Nitrate,Urine Negative (Negative); PH,Urine 5.5 (5.0-8.5); Protein,Urine Negative (Negative); Urobilinogen,Urine 0.2 EU/dl (0.2)
--- NOTE | 2023-07-04 01:31 | PC.NURSE ---
House notified for bed
[2023-07-04 01:33] LABS: Bacteria,Urine Trace /lpf; RBC,Urine Occasional #/hpf (0-3)
[2023-07-04 01:34] LABS: Hemoglobin A1C 12.1 % (4.0-6.0)
--- NOTE | 2023-07-04 01:34 | PC.NURSE ---
pt admitted to room 203 for CHF exacerbation to hospitalist; observation status.
--- NOTE | 2023-07-04 01:41 | PC.NURSE ---
Report given to KOBE Gibson at this time. Transport notified
--- NOTE | 2023-07-04 01:45 | PC.NURSE ---
0140 RECEIVED PHONE REPORT FROM HERON RN/ED NURSE. PATIENT TO TRANSFER VIA STRETCHER TO ROOM 203 WITH 02 SUPPORT AT 2LNC.
--- NOTE | 2023-07-04 02:05 | PC.NURSE ---
pt arrived to floor via stretcher @01:58
--- NOTE | 2023-07-04 02:14 | PC.NURSE ---
0205 ARRIVED TO THE FLOOR VIA STRETCHER. 02 AT 2LNC. ADMITTED TO ROOM 203.
--- NOTE | 2023-07-04 03:36 | PC.NURSE ---
0330 CRITICAL TROPONIN 1.10 REPORTED TO ROMA MONTES APRN. NO NEW ORDERS.
--- NOTE | 2023-07-04 03:47 | PC.NURSE ---
PATIENTS TROPONIN ELEVATED. DENIES CHEST PAIN. C/O SOA WITH MINIMAL EXERTION. SINUS TACHYCARDIA NOTED ON TELEMETRY.
[2023-07-04 04:04] LABS: Reflex Lactic Add Lactic Reflex
[2023-07-04 04:39] LABS: Basophils # 0.1 K/mm3 (0-0.2); Basophils % 0.9 % (0.1-2.0); Eosinophils # 0.1 K/mm3 (0.0-0.4); Eosinophils % 1.7 % (0.1-12.0); Hematocrit 42.9 % (37.0-47.0); Hemoglobin 13.9 g/dL (12.2-16.2); Lymphocytes # 0.7 K/mm3 (0.7-4.5); Lymphocytes % 8.3 % (10-50); Mean Corpuscular HGB Conc 32.4 g/dL (31.8-35.4); Mean Corpuscular Hemoglobin 30.1 pg (27.0-31.2); Mean Corpuscular Volume 92.9 fl (81-99); Mean Platelet Volume 8.5 fl (7.4-10.4); Monocytes # 0.5 K/mm3 (0.1-1.0); Monocytes % 5.8 % (1.7-9.3); Neutrophils # 6.7 K/mm3 (1.8-7.8); Neutrophils % 83.3 % (37.0-80.0); Platelet Count 195 K/mm3 (142-424); Red Blood Count 4.62 M/mm3 (4.20-5.40); Red Cell Distribution Width 14.4 % (11.5-17.5); White Blood Count 8.1 K/mm3 (4.8-10.8)
[2023-07-04 04:45] LABS: Chloride 95 mmol/L (98-107); Sodium 135 mmol/L (136-145)
[2023-07-04 04:46] LABS: Potassium 3.8 mmoL/L (3.5-5.1)
[2023-07-04 04:48] LABS: Alanine Aminotransferase 23 U/L (12-78); Albumin Level 3.8 g/dl (3.5-5.0); Albumin/Globulin Ratio 1.7 (1.1-1.8); Alkaline Phosphatase 129 U/L (38-126); Anion Gap 10.8 mEq/L (5-15); Aspartate Amino Transferase 40 U/L (14-36); Bilirubin,Total 0.9 mg/dl (0.2-1.3); Blood Urea Nitrogen 11 mg/dl (7-17); Carbon Dioxide 33 mmol/L (22.0-30.0); Cholesterol 212 mg/dl (140-200); Creatinine Clearance Estimated 37 mL/min (50-200); Estimated Glomerular Filt Rate 70 ml/min (>60); GFR (African American) 85 ML/MIN (>60); Globulin 2.3 g/dL (1.3-3.2); Glucose 398 mg/dl (74-100); Phosphorous 4.2 mg/dl (2.5-4.5); Total Protein,Serum 6.1 g/dl (6.3-8.2); Triglycerides 174 mg/dl (30-150); VLDL Cholesterol 35 mg/dL (0-40)
[2023-07-04 04:49] LABS: Chol/HDL Ratio 4.1 (1-3.5); HDL Cholesterol 52 mg/dl (40-60); Magnesium 1.4 mg/dl (1.6-2.3)
[2023-07-04 05:00] LABS: Direct LDL Cholesterol 125.92 mg/dL (100-129)
[2023-07-04 05:08] LABS: 25-OH Vitamin D, Total 20.3 ng/mL (30-100)
[2023-07-04 05:29] LABS: POC Glucose,Bedside 388 (70-110)
[2023-07-04] MEDS: humaLOG 100 UNITS/ML 3ML VIAL (SSI) SQ ×3 (05:33→20:38)
[2023-07-04] MEDS: ONDANSETRON 4MG/2ML VIAL 4 MG IV (05:36)
[2023-07-04 06:22] LABS: Troponin I 2.18 ng/ml (0.00-0.034)
--- NOTE | 2023-07-04 06:23 | PC.NURSE ---
lab called with critical troponin 2.18. Benji Pelaez APRN notified. no new orders at this time.
--- NOTE | 2023-07-04 07:24 | HMH.PHAINT1 ---
Pharmacy Intervention Comments: HOME MEDICATION LIST VERIFIED VIA OUTSIDE PHARMACY AND PHYSICAN NOTE
--- OUTSIDE RECORDS SUMMARY | 2023-07-04 07:39 | XMS_ITS ---
Author Name Tim Rodríguez Address [address] [place] [id number] Organization Unknown Address [address] [place] [id number] ALLERGIES AND ADVERSE REACTIONS No information ASSESSMENT No information CHIEF COMPLAINT No information MEDICATIONS No information OBJECTIVE DATA No information PHYSICAL EXAMINATION No information TREATMENT PLAN Planned Care Start Date Provider Encounter for Check-up [id number] AC Peñ[place] PROBLEMS No information RESULTS No information REVIEW OF SYSTEMS No information SUBJECTIVE DATA No information VITAL SIGNS No information
[2023-07-04] MEDS: ASPIRIN EC 81MG TABLET 81 MG PO (09:08)
[2023-07-04] MEDS: IRBESARTAN 75MG TABLET 75 MG PO (09:08)
[2023-07-04] MEDS: METOPROLOL SUCCINATE XL 25MG TABLET 25 MG PO (09:08)
--- NOTE | 2023-07-04 09:28 | HMH.OTEV ---
OT Inpatient Evaluation Rehab OT IP Evaluation Start: 07/04/23 07:51 Freq: ONCE Status: Active Protocol: Document 07/04/23 09:19 [facility] (Rec: 07/04/23 09:27 [facility] [id number]) Rehab OT IP Assessment Subjective History Pt oriented x 3 on arrival. Pt agreeable to engage in therapy evaluation. Pt admitted on 07/04/23 due to CHF and SOB. History and physical: This is a 77-year-old female PMHx of follicular lymphoma currently on chemotherapy, hypertension, hyperlipidemia, type 2 diabetes, chronic deconditioning presented to ED with shortness of breath. Patient states began feeling acutely short of breath today while was driving. No associated chest pains, but patient states she was unable to catch her breath. Shortness of breath continued at home, with not improving therefore patient called EMS for further evaluation. Patient states that she does have chronic lower extremity edema, this has not gotten any better or worse. Last chemotherapy was a couple weeks prior to this visit and was administered in [place]. No cough, fevers, chills, nausea or vomiting, diaphoresis, or any other concerns. Was recently increased on her daily 20 mg Lasix to 40. No medication changes otherwise. Admitted for further management. Subjective I do still feel weak. Prior to being in the hospital , pt lived at home alone. Pt claims normally she is independent with all ADLS and IADLS. Pt also still drives. She usually does not require any type of AE during functional transfers. She is not on o2 at home, but is currently wearing 2L NC. Objective Patient Orientation Person,Place,Birthday Right Upper Extremity Gross ROM WFL Left Upper Extremity Gross ROM WFL Bed Mobility bed mobility-scooting,bed mobility - supine/sit Assist Level Minimal x 1 (25% assist) Transfer Training Sit/Stand Transfer Assist Level Minimal x 1 (25% assist) Lower Body Dressing Ability Moderate Assistance Rehab OT IP prob,goals,plan Problems Date of Evaluation: 07/04/23 OT IP Problems Bed Mobility,Transfers,Balance ,Self care,Safety Rehab Potential Rehab Potential Good Equipment Needs Assistive Devices Rolling / Wheeled Walker Plan OT intervention Plan Bed Mobility,Transfers,Balance ,Self care,Safety,Therapeutic Exercise OT Plan Frequency Daily Duration LOS Discharge Goals Bed Mobility Ability Standby Assistance Sit to Stand Chair Transfer Ability Contact Guard/Hand Hold Chair Transfer Ability Contact Guard/Hand Hold Chair Transfer Technique Sit to/from Ambulatory Chair Transfer Assistive Devices Rolling Walker Feeding Ability Assist with Tray Set Up Lower Body Dressing Ability Contact Guard Upper Body Dressing Ability Standby Assistance Bathing Ability Contact Guard Performing Toilet Hygiene Ability Standby Assistance Overall Commode/Toilet Transfer Ability Contact Guard Commode/Toilet Transfer Technique Sit to/from Ambulatory Commode/Toilet Transfer Assistive Grab Bars Devices Oral Care Assist Standby Assistance Decrease in Endurance Yes Discharge Plan OT Discharge Plan Pt will continue to be seen for OT services while at [facility]. Therapist recommends patient be discharged home with her sister temporarily for increased assistance if needed . Therapist also recommends pt have a OT evaluation for continued skilled therapy services. Eval Complexity Eval Charge Codes 60622 - Moderate Complexity PHYSICIAN CERTIFICATION: I certify the specified therapy services for Dominga Ardon are required, authorized, and reviewed every 30 days.
--- NOTE | 2023-07-04 09:42 | SW/DCPLANNER ---
Addendum entered by [facility] 07/08/23 08:27: Marisela w/ [facility] stated that she can accept this patient SNF level of care once medically stable for discharge. Addendum entered by [facility] 07/08/23 07:42: [facility]ham green/ [facility] stated that she can not accept this patient. Marisela w/ [facility] is reviewing information. Addendum entered by [facility] 07/05/23 14:30: Patient/family agree w/ information being faxed to [facility] now incase [facility] is not able to meet patient's needs. I have faxed information to Marisela w/ [facility]. Addendum entered by [facility] 07/05/23 13:35: [facility] has requested Oncology records from [facility]: office staff stated they would fax records to me. Addendum entered by [facility] 07/05/23 12:54: [facility] green/ [facility] is currently reviewing patient information. Addendum entered by [facility] 07/05/23 10:00: Patient/family have now expressed an interest in SNF level of care at time of discharge. Patient is agreeable to placement at [facility]: information will be faxed this AM. I will follow up w/ [facility]ham once information is reviewed. Per MD patient is not ready for discharge at this time. Original Note: I spoke w/ this patient regarding plans once medically stable for discharge. PT/OT evaluated patient and recommended returning home w/ home health services and family. Patient stated that once she is ready for discharge she plans to discharge home w/ her sister (Roxy at [facility] in [place]) and prefers to use [facility]. I will set up home health services at time of discharge. Patient stated that she currently has a rolling walker at home. I will continue to follow up w/ this patient until medically stable for discharge. Discharge date is unknown at this time.
--- NOTE | 2023-07-04 09:53 | ECG_ITS ---
APPROVED REPORT Exam: Resting ECG HR:97 bpm ECG Measurements Heart Rate 97 AXES PA 162 P 73 QRSd 82 QRS -2 QT 371 T -33 QTc 425 Conclusion SINUS RHYTHM Late R wave progression LAD BORDERLINE ECG UNCONFIRMED REPORT Electronically signed by : Humberto Camarena MD 07/07/2023 07:40:40
--- NOTE | 2023-07-04 10:24 | HMH.PTEV ---
Physical Therapy Evaluation Rehab PT IP Evaluation Start: 07/04/23 07:51 Freq: ONCE Status: Active Protocol: Document 07/04/23 09:13 ROSA ISELA (Rec: 07/04/23 10:24 [place] [id number]) Subjective/History History History The patient is a 77 yof who presents to [facility] with CHF exacerbation. The patient was driving yesterday when she began to feel short of breath, which continued to worsen, so she called the ambulance. PMHx of follicular lymphoma currently on chemotherapy, hypertension, hyperlipidemia, type 2 diabetes, chronic deconditioning presented to ED with shortness of breath. Subjective Subjective The patient is in bed upon arrival and is agreeable to PT . She is oriented x4. She reports that she lives alone, but she is fully independent. She reports that she required no assistance with typically daily living. She does report that she would be able to go home with her sister if she requires some help. She complains of severe cramping in both of her calves and right arm. Patient is on 2L of O2 to which she reports she did not use prior. New diagnosis of cancer in past 12 Yes: follicular lymphoma, months? diagnosed after a fall in Feb 2023 Rehab PT IP Eval Objective Appearance Patient Behavior Appropriate,Cooperative Patient Orientation Person,Place,Time Difficulty following instructions none Speech Pattern Clear Ambulation Patient Able to Ambulate Yes Ambulation Observation IP General Gait Pattern Observation Shuffling Step Ambulation Distance (feet) 15 Ambulation Assistive Device None Ambulation Ability Contact Guard/Hand Hold Balance Ability to Arise Able, uses arms to help Sitting Balance Steady, safe Standing Balance Steady, wide stance Dynamic Sitting Balance Ability Good Dynamic Standing Balance Ability Good Transfers Bed Transfer Ability Minimal x 1 (25% assist) Sit to Stand Bed Transfer Ability Contact Guard/Hand Hold Sit to Stand Chair Transfer Ability Contact Guard/Hand Hold Rehab PT IP prob,goals,plan Problems Date of Evaluation: 07/04/23 PT IP Problems Bed Mobility,Transfers,Gait, Balance,Self care,Safety Rehab Potential Rehab Potential Good Equipment Needs Assistive Devices None / NA Plan PT Intervention Plan Bed Mobility,Transfers,Gait, Balance,Self care,Safety, Therapeutic Exercise PT Plan Frequency Daily Duration LOS Discharge Goals Bed Transfer Ability Independent Sit to Stand Chair Transfer Ability Independent Ambulation Assistive Device None Ambulation Distance (feet) 50 Discharge Plan PT Discharge Plan Patient presents below baseline at this time in functional mobility, endurance and transfers. Skilled PT is indicated for this patient to promote a return to her PLOF and to promote a safe discharge to home. Upon d/c the patient may be most appropriate for discharge to home with family support and home health therapy. Eval Complexity Eval Charge Codes 68374 - High Complexity PHYSICIAN CERTIFICATION: I certify the specified therapy services for Dominga Ardon are required, authorized, and reviewed every 30 days.
--- NOTE | 2023-07-04 10:40 | IR_ITS ---
APPROVED REPORT Patient Location: Inpatient Senior Marketing Data Analyst: ORLIN Herring RT (R) PROCEDURES Selective coronary angiogram Drug-eluting stent deployment to the ostial proximal chronically occluded right coronary Drug-eluting stent deployment to the proximal and mid chronically occluded first obtuse marginal artery Drug-eluting stent deployment to the mid LAD INDICATION Chronically occluded right coronary artery, Chronically occluded obtuse marginal artery, Severe to critically diseased mid LAD which is the likely infarct vessel, Coronary artery disease above the mid LAD, Acute non-ST elevation myocardial infarction Informed consent was obtained prior to the procedure. COMPLICATIONS NONE Estimated Blood Loss: LESS THAN 10 ML TECHNIQUE One percent lidocaine used to anesthetize the right anterior aspect of the wrist. The right radial artery was accessed via the Seldinger technique. A 6 [place] sheath was placed in the right radial artery. 2.5 mg of Verapamil, 800 mcg of nitroglycerin, 1mg Lidocaine and 5000 U Heparin were given through the arterial sheath. The papa catheter was also used to perform selective coronary angiogram. At the end of the diagnostic angiogram therapeutic heparin was administered giving a therapeutic ACT and the guide catheter was placed against the ostial of the right coronary artery. A Choice PT extra-support wire was used to push through the occlusion and a 2.5 x 12 mm noncompliant balloon was deployed at 20 nguyen to predilate the stenosis. A 3 mm x 22 mm Jovanni frontier stent was deployed at 20 nguyen in the proximal right coronary reducing the stenosis. An additional 3.5 x 8 mm [place] frontier stent was placed proximal to the for stent yet still overlapping it out into the right coronary cusp crossing the right coronary ostium and deployed at 20 nguyen further reducing the stenosis. 800 mcg of intracoronary nitroglycerin was administered. Excellent angiographic results were obtained with DAMIÁN 0 flow at the beginning the procedure and DAMIÁN-3 flow at the end of the procedure. Following this the guide catheter was placed in the left main artery and the same wire was used to push through the occlusion of the first obtuse marginal artery. The 2.5 mm balloon was used to predilate the stenosis. Following this a 82.25 x 15 mm Jovanni frontier stent was placed in the ostial proximal segment and deployed at 20 nguyen. There was residual stenosis distally therefore 800 mcg of intracoronary glycerin was administered which failed to reduce the stenosis therefore an additional 2.25 x 15 mm [place] frontier stent was employed at 20 nguyen distal to the for stent yet still overlapping it. The balloon was brought back and deployed at 24 nguyen to mesh the 2 stents. An additional 2.5 x 8 mm noncompliant balloon was placed in the proximal first obtuse marginal artery and deployed at 20 mm atmospheres in order to further post dilate. DAMIÁN 0 flow was present before the procedure with DAMIÁN-3 flow at the end the procedure. Following this an additional wire was placed in the LAD where a 2.75 x 22 mm [place] frontier stent was placed in the mid LAD at 17 nguyen reducing the severe stenosis to 0%. DAMIÁN-3 flow was present before and after the procedure. At the end of procedure the apparatus was removed the sheath was removed and hemostasis was achieved using TR banding patient was transferred to the postop putting in stable condition ANGIOGRAPHIC RESULTS The left main artery Has an ostial 20 to 30% stenosis The left anterior descending artery Is proximally normal followed by an eccentric 80% mid vessel stenosis followed by an additional 70% stenosis. There is additional 60 to 70% mid LAD stenosis along a tortuous bend. The circumflex artery smooth 10 to 20% stenosis. The second obtuse marginal artery is bluntly occluded. Following revascularization there was wide inline flow to the first second and third obtuse marginal artery. The right coronary artery Codominant initially ostially occluded. Following revascularization the ostial proximal portion was widely patent. There were 10 to 20% stenoses in the midportion. The posterior descending artery was severely diseased in the proximal segment yet still had antegrade flow as well as competitive flow from left to right collaterals. The JAIN ventriculogram reveals Was not performed The left ventricular end-diastolic pressure Was not measured IMPRESSION Chronically occluded codominant ostial proximal right coronary Successful percutaneous revascularization of a chronically occluded ostial proximal right coronary artery 100% occlusion reduced to 0% with 2 contiguous drug-eluting stents Chronically occluded second obtuse marginal artery Successful percutaneous revascularization of a chronically occluded second obtuse marginal artery 100% occlusion reduced to 0% with 2 contiguous drug-eluting stents Severe to critical mid LAD disease as described above Successful stent to the mid LAD severe to critical disease reduced to 0% with 1 drug-eluting stent Persistent moderate to severe disease in the mid LAD which is best managed medically PLAN 1. Plavix 75 mg daily plus aspirin 81 mg daily 2. LDL less than 55 to be achieved with high intensity statin 3. Avoidance of tobacco products 4. Risk factor modification 5. Cardiac rehabilitation 6. Recommend formal echocardiogram to better evaluate ejection fraction Electronically signed by : Emerson Tyler MD 07/04/2023 15:18:51
--- NOTE | 2023-07-04 10:46 | P.CONCA_ITS ---
History of Present Illness History of Present Illness Consult date: 07/04/23 Requesting physician: Suzanne Rico Consult reason: chest pain Chief complaint: Chest pain and shortness of breath History of present illness: 77-year-old white female without known cardiovascular disease but significant risk factors including age, obesity, hypertension, hyperlipidemia, uncontrolled diabetes with A1c of 12. Patient states she was driving back from [place] yesterday with her sister when she had sudden onset shortness of breath with substernal chest pressure associated with weakness. Symptoms lasted about 15 minutes, she had to pull off to the side of the road before continuing on home. When she got home she was feeling no better for the rest of the evening and eventually called EMS. On arrival she was found to be hypoxic and transported to the emergency room. ER workup revealed lactic acid 3.3, uptrending troponin 0.38, 1.1, 2.1, proBNP 911, chest x-ray with pulmonary venous congestion and cardiomegaly, CTA negative, EKG SR with nonspecific changes. She was admitted overnight for observation. This morning she reports she is feeling better at rest. States she has never had cardiac workup previously. Of note patient does have follicular lymphoma which is status post chemo and currently has normal CBC. [facility] Disclaimer: The information contained in this section may have been updated after the patient was seen, as this information can be updated by other users. Medical History Sinus headache History of gastroesophageal reflux (GERD) Pneumonia Bronchitis Arthritis Diabetes mellitus, type 2 History of cataract Hyperlipidemia Hypertension Edema Surgical History Hx of cataract surgery H/O left wrist surgery History of ankle surgery Hx of laparoscopic gastric banding H/O total hysterectomy History of hip replacement Family History Brother Hx of heart surgery Abdominal aortic aneurysm Heart disease Mother Dementia Heart disease Father Prostate cancer Sister Breast cancer Cancer Family/Other Heart attack Social History Smoking Status: Former smoker years smoked: 15 smoking status stop date: 1999 second hand exposure: No alcohol intake: never current occupational status: retired Travel in the last 8 weeks: None household members: spouse housing: house caffeine: Yes Review of Systems Constitutional Constitutional: Reports fatigue and Reports weakness Eyes Eyes: Denies loss of vision ENT Ears, Nose, Mouth, and Throat: Denies hearing loss and Denies vertigo *Cardiovascular Cardiovascular: Reports chest pain, Reports dyspnea and Denies syncope *Respiratory Respiratory: Denies cough, Reports dyspnea and Denies wheezing *Gastrointestinal Gastrointestinal: Denies change in stool character, Denies nausea and Denies vomiting *Musculoskeletal Musculoskeletal: Denies muscle weakness Integumentary/Breasts Skin/Breast: Denies changing lesions *Neurologic Neurologic: Denies loss of vision, Denies syncope, Denies vertigo and Reports weakness Endocrine Endocrine: Reports fatigue Allergic/Immunologic Allergic/Immunologic: Denies wheezing Exam Data for Last 24 hours Vital signs and Labs for Last 24 Hours: Temp Pulse Resp BP Pulse Ox O2 Del Method O2 Flow Rate 98.2 F 98 H 22 141/76 H 94 L Nasal Cannula 2 07/04/23 08:00 07/04/23 08:00 07/04/23 08:00 07/04/23 08:00 07/04/23 08:00 07/04/23 08:52 07/04/23 08:52 Laboratory Results - last 24 hr 07/03/23 23:47: WBC 10.6, RBC 4.07 L, Hgb 14.0, Hct 38.3, MCV 94.1, MCH 34.4 H, MCHC 36.6 H, RDW 14.5, Plt Count 191, MPV 8.7, Neut % (Auto) 80.8 H, Lymph % (Auto) 10.1, [place] % (Auto) 5.4, Eos % (Auto) 2.8, Baso % (Auto) 0.9, Neut # (Auto) 8.6 H, Lymph # (Auto) 1.1, [place] # (Auto) 0.6, Eos # (Auto) 0.3, Baso # (Auto) 0.1, PT 10.7, INR 0.99, APTT 26.2, Sodium 136, Potassium 3.7, Chloride 96 L, Carbon Dioxide 32 H, Anion Gap 11.7, BUN 12, Creatinine 0.70, Estimated Creat Clear 38, Estimated GFR 82, Est GFR ( Amer) 99, Glucose 330 H, Calcium 9.2, Total Bilirubin 0.9, AST 26, ALT 21, Alkaline Phosphatase 124, Troponin I 0.38 H, NT-Pro-B Natriuret Pep 911 H, Total Protein 6.5, Albumin 4.0, Globulin 2.5, Albumin/Globulin Ratio 1.6 07/04/23 00:00: Hemoglobin A1c 12.1 H 07/04/23 00:03: VBG pH 7.34, VBG pCO2 51.1 H, VBG pO2 35.7, VBG HCO3 27.2, VBG Total CO2 28.8 H, VBG O2 Saturation 66.3, VBG Base Excess 1.5, VBG Lactic Acid 3.3 H 07/04/23 01:15: Urine Color Yellow, Urine Appearance Clear, Urine pH 5.5, Ur Specific [place] 1.010, Urine Protein Negative, Urine Glucose (UA) 1+, Urine Ketones Negative, Urine Blood Negative, Urine Nitrate Negative, Urine Bilirubin Negative, Urine Urobilinogen 0.2, Ur Leukocyte Esterase Negative, Urine RBC Occasional, Ur Squamous Epith Cells 3-5, Urine Bacteria Trace 07/04/23 02:50: Troponin I 1.10 H 07/04/23 04:30: WBC 8.1, RBC 4.62, Hgb 13.9, Hct 42.9, MCV 92.9, MCH 30.1, MCHC 32.4, RDW 14.4, Plt Count 195, MPV 8.5, Neut % (Auto) 83.3 H, Lymph % (Auto) 8.3 L, [place] % (Auto) 5.8, Eos % (Auto) 1.7, Baso % (Auto) 0.9, Neut # (Auto) 6.7, Lymph # (Auto) 0.7, [place] # (Auto) 0.5, Eos # (Auto) 0.1, Baso # (Auto) 0.1, Sodium 135 L, Potassium 3.8, Chloride 95 L, Carbon Dioxide 33 H, Anion Gap 10.8, BUN 11, Creatinine 0.80, Estimated Creat Clear 37, Estimated GFR 70, Est GFR ( Amer) 85, Glucose 398 H D, Lactate 2.0, Calcium 9.0, Phosphorus 4.2, Magnesium 1.4 L, Total Bilirubin 0.9, AST 40 H D, ALT 23, Alkaline Phosphatase 129 H, Total Protein 6.1 L, Albumin 3.8, Globulin 2.3, Albumin/Globulin Ratio 1.7, Triglycerides 174 H, Cholesterol 212 H, LDL Cholesterol Direct 125.92, VLDL Cholesterol 35, HDL Cholesterol 52, Cholesterol/HDL Ratio 4.1 H, 25-OH Vitamin D Total 20.3 L 07/04/23 05:22: POC Glucose 388 H* 07/04/23 05:48: Troponin I 2.18 H I & O for Last 24 hours: Intake & Output 07/01/23 07/02/23 07/03/23 07/04/23 23:59 23:59 23:59 23:59 Intake Total 270 / 270 Output Total 3600 / 3600 Balance -3330 / -3330 Weight 226 lb 238 lb 8 oz Constitutional Constitutional: no acute distress, obese and cooperative *Routine HEENT Exam Eye: Present PERRL *Routine Respiratory Exam Respiratory: Present CTA bilaterally; Absent accessory muscle use, wheezes or crackles *Routine Cardiovascular Exam Cardiovascular: Present RRR, Normal S1 and Normal S2; Absent murmur, gallop or rubs *Routine Abdominal Exam Abdominal: Present soft; Absent tenderness *Routine Extremities Exam Extremities: Present pulses intact; Absent cyanosis or edema *Routine Skin Exam Skin: Present intact; Absent erythema or wounds *Routine Neurological Exam Neurological: Present alert and oriented X3 Routine Psychiatric Exam Psychiatric: Present cooperative Meds Home Medications and Allergies Home Medications Medication Instructions Recorded Confirmed Type citalopram 40 mg tablet 40 mg PO DAILY 07/04/23 07/04/23 History ergocalciferol (vitamin D2) 1,250 1,250 mcg PO WEEKLY 07/04/23 07/04/23 History mcg (50,000 unit) capsule (Vitamin D2) furosemide 40 mg tablet (Lasix) 40 mg PO DAILY 07/04/23 07/04/23 History glipizide 10 mg tablet, extended 10 mg PO BID 07/04/23 07/04/23 History release 24 hr lisinopril 20 1 tab PO DAILY 07/04/23 07/04/23 History mg-hydrochlorothiazide 12.5 mg tablet meclizine 25 mg tablet 25 mg PO BID PRN Dizziness 07/04/23 07/04/23 History ondansetron HCl 8 mg tablet 8 mg PO Q8HP PRN Nausea And 07/04/23 07/04/23 History Vomiting promethazine 12.5 mg tablet 12.5 mg PO Q8HP PRN Nausea And 07/04/23 07/04/23 History Vomiting semaglutide 0.25 mg or 0.5 mg (2 0.5 mg SQ WEEKLY 07/04/23 07/04/23 History mg/3 mL) subcutaneous pen injector (Ozempic) New Prescriptions to Start Prescriptions: Allergies Allergy/AdvReac Type Severity Reaction Status Date / Time Penicillins Allergy Intermediate I-ITCHING, Verified 05/27/23 10:13 RASH, SWELLING Assessment and Plan *Assessment and plan (1) NSTEMI (non-ST elevated myocardial infarction): Status: Acute Category: Medical Code(s): I21.4 - Non-ST elevation (NSTEMI) myocardial infarction (2) Acute hypoxemic respiratory failure: Status: Acute Category: Medical Code(s): J96.01 - Acute respiratory failure with hypoxia (3) Congestive heart failure: Status: Acute Qualifiers: Heart failure chronicity: unspecified Heart failure type: unspecified Qualified Code(s): I50.9 - Heart failure, unspecified Category: Medical Code(s): I50.9 - Heart failure, unspecified (4) Diabetes mellitus: Status: Acute Qualifiers: Diabetes mellitus type: type 2 Diabetes mellitus terminologist insulin use: without assisted use Diabetes mellitus complication status: without complication Qualified Code(s): E11.9 - Type 2 diabetes mellitus without complications Category: Medical Code(s): E11.9 - Type 2 diabetes mellitus without complications Plan NSTEMI - substernal chest tightness and SOA with rising serial troponin with CV risk factors - Cont Lovenox - Add ASA, BB, Statin, ARB - ECHO pendig - pt agreeable to [facility] Acute Left Systolic Heart Failure - new dx this admission with [place], hypoxia, pulmonary vascular congestion on CXR and ProBNP 911 - she received Lasix 40 IV x1 - add ARB - consider ARNI and SLGT-2 post ECHO and [facility] DM-II - poor control with A1C 12 - recommend GLP and SGLT2 later - insulin per primary service Htn - elevated here - add BB and ARB - titrate to goal of <130/80 HLD - poorly controlled with LDL 125 in setting of diabetes with goal <55 - not on statin at home, add atorvastatin 80 Morbid Obesity, BMI 42 - on GLP-1 at home - cont weight loss efforts Follicular Lymphoma s/p Chemo - in remission, nml CBC here - sees Heme/Onc in [place]
[2023-07-04 11:03] LABS: POC Glucose,Bedside 338 (70-110)
[2023-07-04] MEDS: diphenhydrAMINE 50MG/ML VIAL 50 MG IV (13:06)
[2023-07-04] MEDS: VERAPAMIL 2.5MG/ML 2ML VIAL 2.5 MG IV (13:06)
[2023-07-04] MEDS: HEPARIN 1,000 UNITS/ML 10ML VIAL (CATH LAB) 10000 UNIT IV (13:07)
[2023-07-04] MEDS: 0.9 % SODIUM CHLORIDE 500 ML 25 ML IV (13:07)
[2023-07-04] MEDS: LIDOCAINE 1% 10ML MDV 20 ML IJ (13:07)
[2023-07-04] MEDS: HEPARIN 1,000 UNITS/500ML NS (CATH LAB) 3000 UNIT IV (13:07)
[2023-07-04] MEDS: NITROGLYCERIN 800MCG/8ML SYR (CATH LAB) 800 MCG IA (13:07)
[2023-07-04] MEDS: MIDAZOLAM HCL 1MG/1ML 5ML VIAL 1 MG IV (14:02)
[2023-07-04] MEDS: FENTANYL 100MCG/2ML VIAL 50 MCG IV (14:02)
--- NOTE | 2023-07-04 14:15 | PC.NURSE ---
Pt aox 4, up with assist times one, f/c in place, 02-2L nc sats in the 90's, 20g R FA SL, fsbg achs, on lovenox for vte.
[2023-07-04] MEDS: IOPAMIDOL-370 (76%);100ML BOTTLE 250 ML IV (14:23)
[2023-07-04 14:26] LABS: CATHL Activated Clotting Time 280 SEC (74-125)
--- NOTE | 2023-07-04 15:56 | ECG_ITS ---
APPROVED REPORT Exam: Resting ECG HR:96 bpm ECG Measurements Heart Rate 96 AXES CO 166 P 78 QRSd 88 QRS 17 QT 365 T -31 QTc 418 Conclusion SINUS RHYTHM NONSPECIFIC T-WAVE ABNORMALITY BORDERLINE ECG UNCONFIRMED REPORT Electronically signed by : Humberto Camarena MD 07/07/2023 07:41:12
[2023-07-04 16:10] LABS: POC Glucose,Bedside 314 (70-110)
--- NOTE | 2023-07-04 18:32 | PC.NURSE ---
f/c removed and right wrist angio device removed with 2x2 dressing and tegaderm placed.
[2023-07-04] MEDS: ENOXAPARIN 40MG/0.4ML SYRINGE 40 MG SQ (20:37)
[2023-07-04] MEDS: PANTOPRAZOLE 40MG TABLET 40 MG PO (20:38)
[2023-07-04] MEDS: ATORVASTATIN 40MG TABLET 80 MG PO (20:38)
[2023-07-04 20:49] LABS: POC Glucose,Bedside 158 (70-110)
[2023-07-04] MEDS: ALUMINUM/MAGNESIUM/SIMETHICONE 30ML UDC 30 ML PO (22:20)
--- NOTE | 2023-07-04 23:56 | ECG_ITS ---
APPROVED REPORT Exam: Resting ECG HR:89 bpm ECG Measurements Heart Rate 89 AXES NV 164 P 70 QRSd 81 QRS 0 QT 348 T -19 QTc 395 Conclusion SINUS RHYTHM T wave inversions 3 and aVF, no reciprocal change Electronically signed by : OLI WELLS, 07/04/2023 03:41:15
[2023-07-05] VITALS (8 sets, daily range): BP systolic 82–114; BP diastolic 39–57; PULSE 90–104; RESP 18–24; TEMP 36.6–37.4; O2SAT 91–92; BMI 41.1
[2023-07-05 06:01] LABS: Chloride 95 mmol/L (98-107); Sodium 133 mmol/L (136-145)
[2023-07-05 06:02] LABS: Potassium 3.7 mmoL/L (3.5-5.1)
[2023-07-05 06:04] LABS: Basophils # 0.1 K/mm3 (0-0.2); Basophils % 0.8 % (0.1-2.0); Eosinophils # 0.5 K/mm3 (0.0-0.4); Eosinophils % 5.8 % (0.1-12.0); Hematocrit 41.7 % (37.0-47.0); Hemoglobin 13.8 g/dL (12.2-16.2); Lymphocytes # 0.9 K/mm3 (0.7-4.5); Lymphocytes % 9.7 % (10-50); Mean Corpuscular HGB Conc 33.1 g/dL (31.8-35.4); Mean Corpuscular Hemoglobin 30.4 pg (27.0-31.2); Mean Corpuscular Volume 91.7 fl (81-99); Mean Platelet Volume 8.4 fl (7.4-10.4); Monocytes # 0.6 K/mm3 (0.1-1.0); Monocytes % 7.1 % (1.7-9.3); Neutrophils # 6.9 K/mm3 (1.8-7.8); Neutrophils % 76.6 % (37.0-80.0); Platelet Count 197 K/mm3 (142-424); Red Blood Count 4.55 M/mm3 (4.20-5.40); Red Cell Distribution Width 14.4 % (11.5-17.5)
[2023-07-05 06:05] LABS: Anion Gap 6.7 mEq/L (5-15); Blood Urea Nitrogen 15 mg/dl (7-17); Calcium 8.8 mg/dl (8.4-10.2); Carbon Dioxide 35 mmol/L (22.0-30.0); Creatinine Clearance Estimated 20 mL/min (50-200); Estimated Glomerular Filt Rate 27 ml/min (>60); GFR (African American) 33 ML/MIN (>60); Glucose 250 mg/dl (74-100)
[2023-07-05] MEDS: humaLOG 100 UNITS/ML 3ML VIAL (SSI) SQ ×4 (06:23→21:15)
[2023-07-05 06:29] LABS: POC Glucose,Bedside 282 (70-110)
[2023-07-05] MEDS: 0.9 % SODIUM CHLORIDE 1000ML 1,000 ML 999 ML IV (09:45)
[2023-07-05] MEDS: CITALOPRAM 40MG TABLET 40 MG PO (10:10)
[2023-07-05] MEDS: METOPROLOL SUCCINATE XL 25MG TABLET 25 MG PO (10:11)
[2023-07-05] MEDS: CLOPIDOGREL 75MG TAB 75 MG PO (10:11)
[2023-07-05] MEDS: ASPIRIN EC 81MG TABLET 81 MG PO (10:11)
[2023-07-05] MEDS: EMPAGLIFLOZIN 10MG TABLET 10 MG PO (10:11)
[2023-07-05 11:48] LABS: POC Glucose,Bedside 206 (70-110)
--- NOTE | 2023-07-05 11:55 | P.PN_ITS ---
Subjective Subjective Date: 07/05/23 Time: 09:00 Interval history: Multivessel CAD noted on cath yesterday. She had successful stenting of RCA, OM, LAD. Echo shows EF 45%. This morning BP running low 80-90 systolic and creatinine up from 0.8-1.8. She has no complaints other than fatigue Exam Data for Last 24 hours Vital signs and Labs for Last 24 Hours: Temp Pulse Resp BP Pulse Ox O2 Del Method O2 Flow Rate 98.1 F 96 H 20 98/57 L 92 L Nasal Cannula 2 07/05/23 08:00 07/05/23 08:36 07/05/23 08:00 07/05/23 08:36 07/05/23 08:36 07/05/23 08:36 07/05/23 08:36 Laboratory Results - last 24 hr 07/04/23 13:46: Activated Clotting Time 280 H* 07/04/23 15:55: POC Glucose 314 H* 07/04/23 20:31: POC Glucose 158 H 07/05/23 05:49: WBC 9.0, RBC 4.55, Hgb 13.8, Hct 41.7, MCV 91.7, MCH 30.4, MCHC 33.1, RDW 14.4, Plt Count 197, MPV 8.4, Neut % (Auto) 76.6, Lymph % (Auto) 9.7 L , [place] % (Auto) 7.1, Eos % (Auto) 5.8, Baso % (Auto) 0.8, Neut # (Auto) 6.9, Lymph # (Auto) 0.9, [place] # (Auto) 0.6, Eos # (Auto) 0.5 H, Baso # (Auto) 0.1, Sodium 133 L, Potassium 3.7, Chloride 95 L, Carbon Dioxide 35 H, Anion Gap 6.7, BUN 15 D, Creatinine 1.80 H D, Estimated Creat Clear 20, Estimated GFR 27 L, Est GFR ( Amer) 33 L D, Glucose 250 H, Calcium 8.8 07/05/23 06:21: POC Glucose 282 H 07/05/23 11:35: POC Glucose 206 H I & O for Last 24 hours: Intake & Output 07/02/23 07/03/23 07/04/23 07/05/23 23:59 23:59 23:59 23:59 Intake Total 810 / 1050 510 / 510 Output Total 4450 / 4450 0 / 0 Balance -3640 / -3400 510 / 510 Weight 226 lb 238 lb 8 oz 223 lb 8.78 oz Constitutional Constitutional: no acute distress and cooperative *Routine HEENT Exam Eye: Present PERRL *Routine Respiratory Exam Respiratory: Present CTA bilaterally; Absent accessory muscle use, wheezes or crackles *Routine Cardiovascular Exam Cardiovascular: Present RRR, Normal S1 and Normal S2; Absent murmur, gallop or rubs *Routine Abdominal Exam Abdominal: Present soft; Absent tenderness *Routine Extremities Exam Extremities: Present pulses intact; Absent cyanosis or edema *Routine Skin Exam Skin: Present intact; Absent erythema or wounds *Routine Neurological Exam Neurological: Present alert and oriented X3 Routine Psychiatric Exam Psychiatric: Present cooperative Progress Note: A&P Assessment and plan (1) Acute hypoxemic respiratory failure: Status: Acute (2) Congestive heart failure: Status: Acute (3) Diabetes mellitus: Status: Acute (4) Hypertension: Status: Acute (5) Morbid obesity with body mass index (BMI) of 40.0 to 44.9 in adult: Status: Acute Assessment and Plan Assessment and Plan for All Diagnoses:: 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 - ECHO - EF 45% - Cont Lovenox, ASA, Plavix, BB, Statin, ARB - She will need cardiac rehab at discharge Acute Left Systolic Heart Failure - new dx this admission with [place], hypoxia, pulmonary vascular congestion on CXR and ProBNP 911 - ECHO: EF 45% in setting of NSTEMI and new dx MV-CAD - she received Lasix 40 IV x1 and has no further edema or SOA - cont ARB. Hold on ARNI/SGLT-2 due to HEATHER/ATN - repeat ECHO 3 mo - cardiac rehab - aggressive weight loss HEATHER/ATN - Cr 0.8 on arrival, 1.8 day after cath - hydrate with 1L NS at 250/hr, follow labs - advised pt labs may worsen for several days, she will need to stay until these are stable DM-II - poor control with A1C 12 - recommend GLP and SGLT2 later - insulin per primary service Htn - elevated here on arrival, low day after cath - cont BB and ARB as tolerated - titrate to goal of <130/80 HLD - poorly controlled with LDL 125 in setting of diabetes with goal <55 - not on statin at home, added atorvastatin 80 Morbid Obesity, BMI 42 - on GLP-1 at home - cont weight loss efforts Follicular Lymphoma s/p Chemo - in remission, nml CBC here - sees Heme/Onc in [place]
--- NOTE | 2023-07-05 12:49 | P.PN_ITS ---
Subjective *Date: 07/05/23 *Time: 12:49 Interval history: patient was seen and evaluated at the bedside. No reported acute events overnight patient had Cardiac cath performed yesterday, tolerated well, patient had bump in creatinine, patient is making appropriate urine, denies chest pain shortness of breath nausea vomiting diarrhea constipation dysuria fevers chills Exam Data for Last 24 hours Vital signs and Labs for Last 24 Hours: Temp Pulse Resp BP Pulse Ox O2 Del Method O2 Flow Rate 98.0 F 90 18 85/50 L 92 L Nasal Cannula 2 07/05/23 12:00 07/05/23 12:00 07/05/23 12:00 07/05/23 12:00 07/05/23 12:00 07/05/23 12:00 07/05/23 12:00 Laboratory Results - last 24 hr 07/04/23 13:46: Activated Clotting Time 280 H* 07/04/23 15:55: POC Glucose 314 H* 07/04/23 20:31: POC Glucose 158 H 07/05/23 05:49: WBC 9.0, RBC 4.55, Hgb 13.8, Hct 41.7, MCV 91.7, MCH 30.4, MCHC 33.1, RDW 14.4, Plt Count 197, MPV 8.4, Neut % (Auto) 76.6, Lymph % (Auto) 9.7 L , [place] % (Auto) 7.1, Eos % (Auto) 5.8, Baso % (Auto) 0.8, Neut # (Auto) 6.9, Lymph # (Auto) 0.9, [place] # (Auto) 0.6, Eos # (Auto) 0.5 H, Baso # (Auto) 0.1, Sodium 133 L, Potassium 3.7, Chloride 95 L, Carbon Dioxide 35 H, Anion Gap 6.7, BUN 15 D, Creatinine 1.80 H D, Estimated Creat Clear 20, Estimated GFR 27 L, Est GFR ( Amer) 33 L D, Glucose 250 H, Calcium 8.8 07/05/23 06:21: POC Glucose 282 H 07/05/23 11:35: POC Glucose 206 H I & O for Last 24 hours: Intake & Output 04/16/24 04/17/24 04/18/24 04/19/24 23:59 23:59 23:59 23:59 Intake Total 810 / 1050 510 / 510 Output Total 4450 / 4450 0 / 0 Balance -3640 / -3400 510 / 510 Weight 102.512 kg 108.182 kg 101.4 kg Constitutional Constitutional: no acute distress *Routine HEENT Exam Head: Present normocephalic Eye: Present EOMI and PERRL ENT: Present mucous membranes moist *Routine Neck Exam Neck: Present supple; Absent lymphadenopathy *Routine Respiratory Exam Respiratory: Present CTA bilaterally *Routine Cardiovascular Exam Cardiovascular: Present RRR *Routine Abdominal Exam Abdominal: Present soft and normoactive bowel sounds; Absent tenderness *Routine Extremities Exam Extremities: Absent cyanosis, clubbing or edema *Routine Skin Exam Skin: Present warm; Absent rash *Routine Neurological Exam Neurological: Present alert and oriented X3 Assessment and Plan *Assessment and plan (1) Acute hypoxemic respiratory failure: Status: Acute Category: Medical Code(s): J96.01 - Acute respiratory failure with hypoxia (2) Congestive heart failure: Status: Acute Qualifiers: Heart failure chronicity: unspecified Heart failure type: unspecified Qualified Code(s): I50.9 - Heart failure, unspecified Category: Medical Code(s): I50.9 - Heart failure, unspecified (3) Diabetes mellitus: Status: Acute Qualifiers: Diabetes mellitus type: type 2 Diabetes mellitus mcfp insulin use: without long term care pharmacist use Diabetes mellitus complication status: without complication Qualified Code(s): E11.9 - Type 2 diabetes mellitus without complications Category: Medical Code(s): E11.9 - Type 2 diabetes mellitus without complications (4) Hypertension: Status: Acute Qualifiers: Hypertension type: unspecified Qualified Code(s): I10 - Essential (primary) hypertension Category: Medical Code(s): I10 - Essential (primary) hypertension (5) Morbid obesity with body mass index (BMI) of 40.0 to 44.9 in adult: Status: Acute Category: Medical Code(s): E66.01 - Morbid (severe) obesity due to excess calories; Z68.41 - Body mass index [BMI] 40.0-44.9, adult Plan 77-year-old female PMHx of follicular lymphoma currently on chemotherapy, hypertension, hyperlipidemia, type 2 diabetes, chronic deconditioning presented to ED with shortness of breath. Patient states began feeling acutely short of breath today while was driving. EMS was called and found her hypoxic at home. placed on oxygen and rushed to the hospital. Initial work up significant for normal CBC. Chemistry nonactionable with normal kidney function. Patient's VBG with normal pH of 7.34. Lactate 3.3. This is likely due to increased work of breathing. Initial troponin 0.38, BNP elevated at 911. Chest x-ray with pulmonary venous congestion and cardiomegaly, no overt edema. CT PE with no acute pulmonary embolus or pneumonia. After reassessment patient continue to desat on excerption. Findings discussed with ED. Agreed for admission> plan as follow: -Acute hypoxic respiratory failure: - stable new onset CHF, dyspnea on excerption: CAD cardiac telemetry s/p cardiac cath - s/p stenting serial troponin and lactate cardiology following monitor for chest pain and O2 sat per unit protocols Currently on 2L NC started on ASA and plavix monitor for urinary output. Shrestha placed for accurate I/Os. repeat labs in the morning EKG, CTA, CXR, reviewed. ECHO had hypokinesis, cardiac cath warranted HEATHER - Cr 1.8 today, baseline <1 monitor hold ARB/RADHA, enteresto, diuretics gave IVF -Diabetes: Uncontrolled last A1c 12.1 sliding scales. monitor accucheck before meals HTN: lisinopril-HCTZ resumed Morbid obesity. encouraged to continue weight management Lovenox for DVT ppx - on hold due to HEATHER. On protonix Full code
[2023-07-05] MEDS: 0.9 % SODIUM CHLORIDE 1000ML 1,000 ML 50 ML IV (16:36)
[2023-07-05 16:47] LABS: POC Glucose,Bedside 201 (70-110)
--- NOTE | 2023-07-05 17:52 | PC.NURSE ---
[place] catheter reinserted for urinary retention
[2023-07-05] MEDS: PANTOPRAZOLE 40MG TABLET 40 MG PO (21:17)
[2023-07-05] MEDS: ATORVASTATIN 40MG TABLET 80 MG PO (21:17)
[2023-07-05 22:25] LABS: POC Glucose,Bedside 154 (70-110)
[2023-07-06] VITALS (10 sets, daily range): BP systolic 79–100; BP diastolic 35–59; PULSE 83–95; RESP 17–20; TEMP 36.4–37.1; O2SAT 94–99; BMI 42.4
--- NOTE | 2023-07-06 02:50 | PC.NURSE ---
Addendum entered by Beatriz Ku RN 07/06/23 02:52: sharona davey aprn made aware of findings Original Note: d/cd fc @ 0000. volume emptied is 25ml. bladder scan volume 2ml after [place] cathether d'cd. pt voided 25ml in bedside commode, pvr 7 ml
[2023-07-06] MEDS: 0.9 % SODIUM CHLORIDE 1000ML 1,000 ML 100 ML IV (04:30)
[2023-07-06] MEDS: humaLOG 100 UNITS/ML 3ML VIAL (SSI) SQ ×3 (06:18→20:40)
[2023-07-06 06:30] LABS: POC Glucose,Bedside 159 (70-110)
--- NOTE | 2023-07-06 06:55 | PC.NURSE ---
pt has continued not to void. bp soft 90/50's. ns increased to 100ml/hr
[2023-07-06 07:04] LABS: Basophils # 0.1 K/mm3 (0-0.2); Basophils % 0.8 % (0.1-2.0); Eosinophils # 0.5 K/mm3 (0.0-0.4); Eosinophils % 6.7 % (0.1-12.0); Hematocrit 39.2 % (37.0-47.0); Hemoglobin 12.8 g/dL (12.2-16.2); Lymphocytes # 0.9 K/mm3 (0.7-4.5); Lymphocytes % 10.8 % (10-50); Mean Corpuscular HGB Conc 32.8 g/dL (31.8-35.4); Mean Corpuscular Hemoglobin 30.5 pg (27.0-31.2); Mean Platelet Volume 8.3 fl (7.4-10.4); Monocytes # 0.6 K/mm3 (0.1-1.0); Monocytes % 7.1 % (1.7-9.3); Neutrophils % 74.5 % (37.0-80.0); Platelet Count 173 K/mm3 (142-424); Red Blood Count 4.21 M/mm3 (4.20-5.40); Red Cell Distribution Width 14.6 % (11.5-17.5)
[2023-07-06 07:08] LABS: Chloride 99 mmol/L (98-107)
[2023-07-06 07:09] LABS: Potassium 3.6 mmoL/L (3.5-5.1); Sodium 133 mmol/L (136-145)
[2023-07-06 07:12] LABS: Anion Gap 6.6 mEq/L (5-15); Blood Urea Nitrogen 24 mg/dl (7-17); Calcium 8.4 mg/dl (8.4-10.2); Carbon Dioxide 31 mmol/L (22.0-30.0); Creatinine Clearance Estimated 11 mL/min (50-200); Estimated Glomerular Filt Rate 13 ml/min (>60); GFR (African American) 16 ML/MIN (>60); Glucose 146 mg/dl (74-100)
[2023-07-06] MEDS: CLOPIDOGREL 75MG TAB 75 MG PO (09:57)
[2023-07-06] MEDS: ACETAMINOPHEN 325MG TAB 650 MG PO (09:57)
[2023-07-06] MEDS: CITALOPRAM 40MG TABLET 40 MG PO (09:57)
[2023-07-06] MEDS: METOPROLOL SUCCINATE XL 25MG TABLET 25 MG PO (09:57)
[2023-07-06] MEDS: ASPIRIN EC 81MG TABLET 81 MG PO (09:57)
[2023-07-06] MEDS: EMPAGLIFLOZIN 10MG TABLET 10 MG PO (09:57)
[2023-07-06 12:07] LABS: POC Glucose,Bedside 318 (70-110)
--- NOTE | 2023-07-06 12:26 | P.PN_ITS ---
Subjective *Date: 07/06/23 *Time: 12:26 Interval history: no acute events overnight, only 100ml UOP in past 24hrs, patient denied CP, SOB, N/V, she does not have any complains Exam Data for Last 24 hours Vital signs and Labs for Last 24 Hours: Temp Pulse Resp BP Pulse Ox O2 Del Method O2 Flow Rate 97.9 F 85 20 89/46 L 96 Nasal Cannula 2 07/06/23 11:41 07/06/23 11:41 07/06/23 11:41 07/06/23 11:41 07/06/23 11:41 07/06/23 11:41 07/06/23 11:41 Laboratory Results - last 24 hr 07/05/23 16:34: POC Glucose 201 H 07/05/23 21:06: POC Glucose 154 H 07/06/23 06:02: POC Glucose 159 H 07/06/23 06:41: WBC 8.0, RBC 4.21, Hgb 12.8, Hct 39.2, MCV 93.0, MCH 30.5, MCHC 32.8, RDW 14.6, Plt Count 173, MPV 8.3, Neut % (Auto) 74.5, Lymph % (Auto) 10.8, [place] % (Auto) 7.1, Eos % (Auto) 6.7, Baso % (Auto) 0.8, Neut # (Auto) 6.0, Lymph # (Auto) 0.9, [place] # (Auto) 0.6, Eos # (Auto) 0.5 H, Baso # (Auto) 0.1, Sodium 133 L, Potassium 3.6, Chloride 99, Carbon Dioxide 31 H, Anion Gap 6.6, BUN 24 H D, Creatinine 3.40 H D, Estimated Creat Clear 11, Estimated GFR 13 L*, Est GFR ( Amer) 16 L* D, Glucose 146 H, Calcium 8.4 07/06/23 11:56: POC Glucose 318 H* I & O for Last 24 hours: Intake & Output 07/03/23 07/04/23 07/05/23 07/06/23 23:59 23:59 23:59 23:59 Intake Total 810 / 1050 1900 / 1900 730 / 730 Output Total 4450 / 4450 0 / 75 125 / 125 Balance -3640 / -3400 1900 / 1825 605 / 605 Weight 102.512 kg 108.182 kg 101.4 kg 104.496 kg Microbiology Reports for the Last 24 Hours: Microbiology 07/04/23 01:15 Urine,Shrestha [place] Urine Culture - Final Constitutional Constitutional: no acute distress *Routine HEENT Exam Head: Present normocephalic Eye: Present EOMI and PERRL ENT: Present mucous membranes moist *Routine Neck Exam Neck: Present supple; Absent lymphadenopathy *Routine Respiratory Exam Respiratory: Present CTA bilaterally *Routine Cardiovascular Exam Cardiovascular: Present RRR *Routine Abdominal Exam Abdominal: Present soft and normoactive bowel sounds; Absent tenderness *Routine Extremities Exam Extremities: Absent cyanosis, clubbing or edema *Routine Skin Exam Skin: Present warm; Absent rash *Routine Neurological Exam Neurological: Present alert and oriented X3 Assessment and Plan *Assessment and plan (1) Acute hypoxemic respiratory failure: Status: Acute Category: Medical Code(s): J96.01 - Acute respiratory failure with hypoxia (2) Congestive heart failure: Status: Acute Qualifiers: Heart failure chronicity: unspecified Heart failure type: unspecified Qualified Code(s): I50.9 - Heart failure, unspecified Category: Medical Code(s): I50.9 - Heart failure, unspecified (3) Diabetes mellitus: Status: Acute Qualifiers: Diabetes mellitus type: type 2 Diabetes mellitus 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 insulin use: without 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 use Diabetes mellitus complication status: without complication Qualified Code(s): E11.9 - Type 2 diabetes mellitus without complications Category: Medical Code(s): E11.9 - Type 2 diabetes mellitus without complications (4) Hypertension: Status: Acute Qualifiers: Hypertension type: unspecified Qualified Code(s): I10 - Essential (primary) hypertension Category: Medical Code(s): I10 - Essential (primary) hypertension (5) Morbid obesity with body mass index (BMI) of 40.0 to 44.9 in adult: Status: Acute Category: Medical Code(s): E66.01 - Morbid (severe) obesity due to excess calories; Z68.41 - Body mass index [BMI] 40.0-44.9, adult Plan 77-year-old female PMHx of follicular lymphoma currently on chemotherapy, hypertension, hyperlipidemia, type 2 diabetes, chronic deconditioning presented to ED with shortness of breath. Patient states began feeling acutely short of breath today while was driving. EMS was called and found her hypoxic at home. placed on oxygen and rushed to the hospital. Initial work up significant for normal CBC. Chemistry nonactionable with normal kidney function. Patient's VBG with normal pH of 7.34. Lactate 3.3. This is likely due to increased work of breathing. Initial troponin 0.38, BNP elevated at 911. Chest x-ray with pulmonary venous congestion and cardiomegaly, no overt edema. CT PE with no acute pulmonary embolus or pneumonia. After reassessment patient continue to desat on excerption. Findings discussed with ED. Agreed for admission> plan as follow: -Acute hypoxic respiratory failure: - stable new onset CHF, dyspnea on excerption: CAD ATN post cath, anuria cardiac telemetry s/p cardiac cath - s/p stenting cardiology following monitor for chest pain and O2 sat per unit protocols started on ASA and plavix clselyly f/u on urine UOP, 100ml UOP in past 24hrs, Cr worsening, cardiology does not agree with transfer to nephrology capable facility, DC nephrotoxic meds, monitor BMP EKG, CTA, CXR, reviewed. ECHO had hypokinesis, cardiac cath warranted - s/p cath -Diabetes: Uncontrolled last A1c 12.1 sliding scales. monitor accucheck before meals HTN: lisinopril-HCTZ resumed Morbid obesity. encouraged to continue weight management Lovenox for DVT ppx - on hold due to HEATHER. On protonix Full code per cardiology they would prefer to monitor patient in [facility], continue to closely monitor Cr and BMP, UOP
[2023-07-06 19:39] LABS: POC Glucose,Bedside 120 (70-110)
[2023-07-06] MEDS: 0.9 % SODIUM CHLORIDE 1000ML 500 ML 250 ML IV (20:39)
[2023-07-06] MEDS: ATORVASTATIN 40MG TABLET 80 MG PO (20:40)
[2023-07-06] MEDS: PANTOPRAZOLE 40MG TABLET 40 MG PO (20:40)
--- NOTE | 2023-07-06 20:44 | PC.NURSE ---
Bladder scanned pt at this time, 3mL present. Will measure urine when patient uses the bathroom. 250mL/hr NS going at this time per order. 1000mL bag pulled, spoke with Smith Pelaez APRN over phone about order, order states 500mL total, but 1000mL ordered. Benigno PARRY states to give 2 bags 500mL total. Will follow up after first 500mL infused.
[2023-07-06] MEDS: 0.9 % SODIUM CHLORIDE 1000ML 1,000 ML 250 ML IV (22:47)
[2023-07-07] VITALS (10 sets, daily range): BP systolic 76–115; BP diastolic 35–69; PULSE 88–110; RESP 16–21; TEMP 36.4–36.9; O2SAT 92–97; BMI 42.8
--- NOTE | 2023-07-07 05:35 | PC.NURSE ---
Alert and oriented. 400mL urine out this shift. Pt has had no complaints this shift. Pt is on 3L NC, O2 >90, lung sounds diminished. Abdomen soft and nontender. Uses bedside commode. 1L NS infused per order. Call light in reach.
[2023-07-07] MEDS: humaLOG 100 UNITS/ML 3ML VIAL (SSI) SQ ×4 (06:34→20:21)
[2023-07-07 07:44] LABS: Basophils # 0.1 K/mm3 (0-0.2); Basophils % 1.5 % (0.1-2.0); Eosinophils # 0.6 K/mm3 (0.0-0.4); Eosinophils % 7.1 % (0.1-12.0); Hematocrit 38.5 % (37.0-47.0); Hemoglobin 12.7 g/dL (12.2-16.2); Lymphocytes # 0.9 K/mm3 (0.7-4.5); Lymphocytes % 10.4 % (10-50); Mean Corpuscular HGB Conc 32.9 g/dL (31.8-35.4); Mean Corpuscular Volume 91.1 fl (81-99); Mean Platelet Volume 8.8 fl (7.4-10.4); Monocytes # 0.6 K/mm3 (0.1-1.0); Neutrophils # 6.3 K/mm3 (1.8-7.8); Platelet Count 211 K/mm3 (142-424); Red Blood Count 4.23 M/mm3 (4.20-5.40); Red Cell Distribution Width 14.6 % (11.5-17.5); White Blood Count 8.5 K/mm3 (4.8-10.8)
[2023-07-07 07:47] LABS: Chloride 100 mmol/L (98-107); Potassium 3.9 mmoL/L (3.5-5.1); Sodium 135 mmol/L (136-145)
[2023-07-07 07:50] LABS: Anion Gap 5.9 mEq/L (5-15); Blood Urea Nitrogen 30 mg/dl (7-17); Carbon Dioxide 33 mmol/L (22.0-30.0); Creatinine Clearance Estimated 12 mL/min (50-200); Estimated Glomerular Filt Rate 15 ml/min (>60); GFR (African American) 18 ML/MIN (>60)
[2023-07-07 07:51] LABS: Calcium 8.7 mg/dl (8.4-10.2); Glucose 157 mg/dl (74-100)
[2023-07-07] MEDS: ASPIRIN EC 81MG TABLET 81 MG PO (08:30)
[2023-07-07] MEDS: EMPAGLIFLOZIN 10MG TABLET 10 MG PO (08:30)
[2023-07-07] MEDS: CLOPIDOGREL 75MG TAB 75 MG PO (08:30)
[2023-07-07] MEDS: CITALOPRAM 40MG TABLET 40 MG PO (08:30)
[2023-07-07] MEDS: 0.9 % SODIUM CHLORIDE 500 ML 999 ML IV (08:45)
--- NOTE | 2023-07-07 14:01 | P.PN_ITS ---
Subjective *Date: 07/07/23 *Time: 14:01 Interval history: no acute events overnight, patient is alert, awake. Patient denied CP, SOB, N/V, she does not have any complains, patient is comfortable in bed Exam Data for Last 24 hours Vital signs and Labs for Last 24 Hours: Temp Pulse Resp BP Pulse Ox O2 Del Method O2 Flow Rate 97.7 F 94 H 21 112/56 L 97 Nasal Cannula 2 07/07/23 11:57 07/07/23 11:57 07/07/23 11:57 07/07/23 11:57 07/07/23 11:57 07/07/23 13:00 07/07/23 13:00 Laboratory Results - last 24 hr 07/06/23 16:50: POC Glucose 120 H 07/07/23 07:00: WBC 8.5, RBC 4.23, Hgb 12.7, Hct 38.5, MCV 91.1, MCH 30.0, MCHC 32.9, RDW 14.6, Plt Count 211, MPV 8.8, Neut % (Auto) 74.0, Lymph % (Auto) 10.4, [place] % (Auto) 7.0, Eos % (Auto) 7.1, Baso % (Auto) 1.5, Neut # (Auto) 6.3, Lymph # (Auto) 0.9, [place] # (Auto) 0.6, Eos # (Auto) 0.6 H, Baso # (Auto) 0.1, Sodium 135 L, Potassium 3.9, Chloride 100, Carbon Dioxide 33 H, Anion Gap 5.9, BUN 30 H , Creatinine 3.00 H, Estimated Creat Clear 12, Estimated GFR 15 L*, Est GFR ( Amer) 18 L*, Glucose 157 H, Calcium 8.7 I & O for Last 24 hours: Intake & Output 07/04/23 07/05/23 07/06/23 07/07/23 23:59 23:59 23:59 23:59 Intake Total 810 / 1050 1900 / 1900 1255 / 1255 1860 / 1860 Output Total 4450 / 4450 0 / 75 125 / 125 400 / 400 Balance -3640 / -3400 1900 / 1825 1130 / 1130 1460 / 1460 Weight 108.182 kg 101.4 kg 104.496 kg 105.596 kg Constitutional Constitutional: no acute distress *Routine HEENT Exam Head: Present normocephalic Eye: Present EOMI and PERRL ENT: Present mucous membranes moist *Routine Neck Exam Neck: Present supple; Absent lymphadenopathy *Routine Respiratory Exam Respiratory: Present CTA bilaterally *Routine Cardiovascular Exam Cardiovascular: Present RRR *Routine Abdominal Exam Abdominal: Present soft and normoactive bowel sounds; Absent tenderness *Routine Extremities Exam Extremities: Absent cyanosis, clubbing or edema *Routine Skin Exam Skin: Present warm; Absent rash *Routine Neurological Exam Neurological: Present alert and oriented X3 Assessment and Plan *Assessment and plan (1) Acute hypoxemic respiratory failure: Status: Acute Category: Medical Code(s): J96.01 - Acute respiratory failure with hypoxia (2) Congestive heart failure: Status: Acute Qualifiers: Heart failure chronicity: unspecified Heart failure type: unspecified Qualified Code(s): I50.9 - Heart failure, unspecified Category: Medical Code(s): I50.9 - Heart failure, unspecified (3) Diabetes mellitus: Status: Acute Qualifiers: Diabetes mellitus type: type 2 Diabetes mellitus 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 insulin use: without chcf use Diabetes mellitus complication status: without complication Qualified Code(s): E11.9 - Type 2 diabetes mellitus without complications Category: Medical Code(s): E11.9 - Type 2 diabetes mellitus without complications (4) Hypertension: Status: Acute Qualifiers: Hypertension type: unspecified Qualified Code(s): I10 - Essential (primary) hypertension Category: Medical Code(s): I10 - Essential (primary) hypertension (5) Morbid obesity with body mass index (BMI) of 40.0 to 44.9 in adult: Status: Acute Category: Medical Code(s): E66.01 - Morbid (severe) obesity due to excess calories; Z68.41 - Body mass index [BMI] 40.0-44.9, adult Plan 77-year-old female PMHx of follicular lymphoma currently on chemotherapy, hypertension, hyperlipidemia, type 2 diabetes, chronic deconditioning presented to ED with shortness of breath. Patient states began feeling acutely short of breath today while was driving. EMS was called and found her hypoxic at home. placed on oxygen and rushed to the hospital. Initial work up significant for normal CBC. Chemistry nonactionable with normal kidney function. Patient's VBG with normal pH of 7.34. Lactate 3.3. This is likely due to increased work of breathing. Initial troponin 0.38, BNP elevated at 911. Chest x-ray with pulmonary venous congestion and cardiomegaly, no overt edema. CT PE with no acute pulmonary embolus or pneumonia. -Acute hypoxic respiratory failure: - stable new onset CHF, dyspnea on excerption: CAD ATN post cath, anuria Creatinine is improving, continue to monitor BMP cardiac telemetry s/p cardiac cath - s/p stenting cardiology following monitor for chest pain and O2 sat per unit protocols started on ASA and plavix closely f/u on urine UOP, DC nephrotoxic meds, monitor BMP, encourage oral hydration EKG, CTA, CXR, reviewed. ECHO had hypokinesis, cardiac cath warranted - s/p cath -Diabetes: Uncontrolled last A1c 12.1 sliding scales. monitor accucheck before meals HTN: lisinopril-HCTZ resumed Morbid obesity. encouraged to continue weight management Lovenox for DVT ppx - on hold due to HEATHER. On protonix Full code continue to closely monitor Cr and BMP, UOP, likely discharge 1 to 2 days
--- NOTE | 2023-07-07 18:35 | PC.NURSE ---
no acute changes since previous assessment. pt was hypotensive this am and received 500 cc bolus ns with good effectiveness. 2lnc for o2 support.
[2023-07-07] MEDS: PANTOPRAZOLE 40MG TABLET 40 MG PO (20:22)
[2023-07-07] MEDS: ATORVASTATIN 40MG TABLET 80 MG PO (20:22)
[2023-07-08] VITALS: BP 103/52; PULSE 100; PULSE 94; RESP 18; TEMP 36.9; O2SAT 99
[2023-07-08 02:44] LABS: POC Glucose,Bedside 248 (70-110)
[2023-07-08 02:44] LABS: POC Glucose,Bedside 183 (70-110)
[2023-07-08 04:00] VITALS: BP 113/65; PULSE 96; RESP 18; TEMP 36.8; O2SAT 94; BMI 41.6
[2023-07-08 06:42] LABS: POC Glucose,Bedside 141 (70-110)
--- NOTE | 2023-07-08 07:09 | PC.NURSE ---
VSS, Patient rested this shift, FSBS at 0600 141. No events this shift.
[2023-07-08 08:00] VITALS: BP 104/51; PULSE 100; PULSE 94; RESP 16; TEMP 36.6; O2SAT 92; O2SAT 93
[2023-07-08] MEDS: CLOPIDOGREL 75MG TAB 75 MG PO (08:53)
[2023-07-08] MEDS: EMPAGLIFLOZIN 10MG TABLET 10 MG PO (08:53)
[2023-07-08] MEDS: ASPIRIN EC 81MG TABLET 81 MG PO (08:53)
[2023-07-08] MEDS: CITALOPRAM 40MG TABLET 40 MG PO (08:53)
[2023-07-08] MEDS: METOPROLOL SUCCINATE XL 25MG TABLET 25 MG PO (08:53)
--- NOTE | 2023-07-08 08:58 | P.PN_ITS ---
Subjective Subjective Date: 07/08/23 Time: 08:59 Principal diagnosis: NSTEMI Interval history: 77-year-old white female in bedside chair in no acute distress. Relates that she feels significantly better after multivessel stenting. Multiple questions answered about possible discharge and where she will be going. Exam Data for Last 24 hours Vital signs and Labs for Last 24 Hours: Temp Pulse Resp BP Pulse Ox O2 Del Method O2 Flow Rate 97.8 F 94 H 16 104/51 L 93 L Nasal Cannula 2 07/08/23 08:00 07/08/23 08:00 07/08/23 08:00 07/08/23 08:00 07/08/23 08:00 07/08/23 08:00 07/08/23 08:00 FiO2 28 07/07/23 19:21 Laboratory Results - last 24 hr 07/07/23 11:04: POC Glucose 248 H 07/07/23 16:23: POC Glucose 183 H 07/08/23 05:49: POC Glucose 141 H I & O for Last 24 hours: Intake & Output 07/05/23 07/06/23 07/07/23 07/08/23 11:59 11:59 11:59 11:59 Intake Total 1050 / 1050 2120 / 2120 2385 / 2385 720 / 720 Output Total 850 / 850 125 / 125 400 / 400 600 / 600 Balance 200 / 200 1994 120 / 120 Weight 223 lb 8.78 oz 230 lb 6 oz 232 lb 12.8 oz 226 lb 8 oz *Routine Respiratory Exam Respiratory: Present CTA bilaterally *Routine Cardiovascular Exam Cardiovascular: Present RRR Progress Note: A&P Assessment and plan (1) NSTEMI (non-ST elevated myocardial infarction): Status: Acute (2) Acute hypoxemic respiratory failure: Status: Acute (3) Congestive heart failure: Status: Acute (4) Diabetes mellitus: Status: Acute (5) Hypertension: Status: Acute (6) Morbid obesity with body mass index (BMI) of 40.0 to 44.9 in adult: Status: Acute (7) S/P coronary artery stent placement: Status: Acute (8) Acute kidney injury after administration of contrast media: Status: Acute Assessment and Plan Assessment and Plan for All Diagnoses:: NSTEMI - Cont ASA, plavix, BB, Statin - ECHO EF 45% - 5 JEFFREY to RCA, LAD and OM - Holding lasix and ARB due to HEATHER Acute Left Systolic Heart Failure -Clinically improved -holding lasix, jardiance and ARB due to HEATHER DM-II - poor control with A1C 12 - recommend GLP and SGLT2 later - insulin per primary service Htn - elevated here - add BB - titrate to goal of <130/80 HLD - poorly controlled with LDL 125 in setting of diabetes with goal <55 - add atorvastatin 80 Morbid Obesity, BMI 42 - on GLP-1 at home, hold here due to HEATHER - cont weight loss efforts Follicular Lymphoma s/p Chemo - in remission, nml CBC here - sees Heme/Onc in [place] HEATHER related to contrast from heart cath -Creatinine 1.3 today with GFR 40 Clinically stable from a cardiac standpoint for discharge home Home medication recommendations: Aspirin 81 mg daily Atorvastatin 80 mg daily Metoprolol XL 25 mg daily Plavix 75 mg daily Protonix 40 mg daily Holding Lasix, Jardiance and Entresto due to recent HEATHER related to contrast from cardiac Follow-up in our office in 1 week at which time we will consider reinstituting additional GDMT medications. She will need a BMP on that day as well as a BNP.
[2023-07-08 09:21] LABS: Basophils # 0.1 K/mm3 (0-0.2); Basophils % 1.1 % (0.1-2.0); Eosinophils # 0.6 K/mm3 (0.0-0.4); Eosinophils % 7.7 % (0.1-12.0); Hematocrit 37.9 % (37.0-47.0); Hemoglobin 12.4 g/dL (12.2-16.2); Lymphocytes # 0.7 K/mm3 (0.7-4.5); Mean Corpuscular HGB Conc 32.9 g/dL (31.8-35.4); Mean Corpuscular Hemoglobin 30.3 pg (27.0-31.2); Mean Corpuscular Volume 92.1 fl (81-99); Mean Platelet Volume 8.4 fl (7.4-10.4); Monocytes # 0.5 K/mm3 (0.1-1.0); Monocytes % 7.2 % (1.7-9.3); Neutrophils # 5.4 K/mm3 (1.8-7.8); Neutrophils % 74.1 % (37.0-80.0); Platelet Count 183 K/mm3 (142-424); Red Blood Count 4.11 M/mm3 (4.20-5.40); Red Cell Distribution Width 14.3 % (11.5-17.5); White Blood Count 7.3 K/mm3 (4.8-10.8)
[2023-07-08 09:36] LABS: Chloride 104 mmol/L (98-107); Potassium 4.4 mmoL/L (3.5-5.1); Sodium 137 mmol/L (136-145)
[2023-07-08 09:39] LABS: Anion Gap 4.4 mEq/L (5-15); Blood Urea Nitrogen 23 mg/dl (7-17); Calcium 9.1 mg/dl (8.4-10.2); Carbon Dioxide 33 mmol/L (22.0-30.0); Creatinine Clearance Estimated 28 mL/min (50-200); Estimated Glomerular Filt Rate 40 ml/min (>60); GFR (African American) 48 ML/MIN (>60); Glucose 188 mg/dl (74-100)
[2023-07-08] MEDS: humaLOG 100 UNITS/ML 3ML VIAL (SSI) SQ (11:31)
[2023-07-08 11:38] LABS: POC Glucose,Bedside 169 (70-110)
[2023-07-08 12:00] VITALS: BP 113/63; PULSE 90; RESP 19; TEMP 36.7; O2SAT 90
--- NOTE | 2023-07-08 13:00 | P.DS_ITS ---
General Admission date:: 07/04/23 Discharge date: 07/08/23 HPI HPI HPI: This is a 77-year-old female PMHx of follicular lymphoma currently on chemotherapy, hypertension, hyperlipidemia, type 2 diabetes, chronic de conditioning presented to ED with shortness of breath. Patient states began feeling acutely short of breath today while was driving. No associated chest pains, but patient states she was unable to catch her breath. Shortness of breath continued at home, with not improving therefore patient called EMS for further evaluation. Patient states that she does have chronic lower extremity edema, this has not gotten any better or worse. Last chemotherapy was a couple weeks prior to this visit and was administered in [place]. No cough, fevers, chills, nausea or vomiting, diaphoresis, or any other concerns. Was recently increased on her daily 20 mg Lasix to 40. No medication changes otherwise. Admitted for further management. Hospital Course Hospital Course Hospital Course: 77-year-old female PMHx of follicular lymphoma currently on chemotherapy, hypertension, hyperlipidemia, type 2 diabetes, chronic deconditioning presented to ED with shortness of breath. Patient states began feeling acutely short of breath today while was driving. EMS was called and found her hypoxic at home. p laced on oxygen and rushed to the hospital. Initial work up significant for normal CBC. Chemistry nonactionable with normal kidney function. Patient's VBG with normal pH of 7.34. Lactate 3.3. This is likely due to increased work of breathing. Initial troponin 0.38, BNP elevated at 911. Chest x-ray with pulmonary venous congestion and cardiomegaly, no overt edema. CT PE with no acute pulmonary embolus or pneumonia. Patient discharged to rehab per PT/OT recommendations and follow up with PT/OT recommendations -Acute hypoxic respiratory failure: - stable and improved new onset CHF, dyspnea on excerption: - improved Home medication recommendations per cardiology Aspirin 81 mg daily Atorvastatin 80 mg daily Metoprolol XL 25 mg daily Plavix 75 mg daily Protonix 40 mg daily Holding Lasix, Jardiance and Entresto due to recent HEATHER related to contrast from cardiac Exam Data for Last 24 hours Vital signs and Labs for Last 24 Hours: Temp Pulse Resp BP Pulse Ox O2 Del Method O2 Flow Rate 97.8 F 94 H 16 104/51 L 92 L Room Air 2 07/08/23 08:00 07/08/23 08:00 07/08/23 08:00 07/08/23 08:00 07/08/23 08:00 07/08/23 11:00 07/08/23 08:00 FiO2 28 07/07/23 19:21 Laboratory Results - last 24 hr 07/07/23 11:04: POC Glucose 248 H 07/07/23 16:23: POC Glucose 183 H 07/08/23 05:49: POC Glucose 141 H 07/08/23 09:10: WBC 7.3, RBC 4.11 L, Hgb 12.4, Hct 37.9, MCV 92.1, MCH 30.3, MCHC 32.9, RDW 14.3, Plt Count 183, MPV 8.4, Neut % (Auto) 74.1, Lymph % (Auto) 10.0, [place] % (Auto) 7.2, Eos % (Auto) 7.7, Baso % (Auto) 1.1, Neut # (Auto) 5.4, Lymph # (Auto) 0.7, [place] # (Auto) 0.5, Eos # (Auto) 0.6 H, Baso # (Auto) 0.1, Sodium 137, Potassium 4.4, Chloride 104, Carbon Dioxide 33 H, Anion Gap 4.4 L, BUN 23 H, Creatinine 1.30 H D, Estimated Creat Clear 28, Estimated GFR 40 L, Est GFR ( Amer) 48 L D, Glucose 188 H, Calcium 9.1 07/08/23 11:03: POC Glucose 169 H I & O for Last 24 hours: Intake & Output 07/05/23 07/06/23 07/07/23 07/08/23 23:59 23:59 23:59 23:59 Intake Total 1900 / 1900 1255 / 1255 2220 / 2220 360 / 360 Output Total 0 / 75 125 / 125 400 / 400 600 / 600 Balance 1900 / 1825 1130 / 1130 1820 / 1820 -240 / -240 Weight 101.4 kg 104.496 kg 105.596 kg 102.739 kg Constitutional Constitutional: no acute distress *Routine HEENT Exam Head: Present normocephalic Eye: Present EOMI and PERRL ENT: Present mucous membranes moist *Routine Neck Exam Neck: Present supple; Absent lymphadenopathy *Routine Respiratory Exam Respiratory: Present CTA bilaterally *Routine Cardiovascular Exam Cardiovascular: Present RRR *Routine Abdominal Exam Abdominal: Present soft and normoactive bowel sounds; Absent tenderness *Routine Extremities Exam Extremities: Absent cyanosis, clubbing or edema *Routine Skin Exam Skin: Present warm; Absent rash *Routine Neurological Exam Neurological: Present alert and oriented X3 Results Data Completed and Pending Labs on day of discharge: Labs from last 24 hours 07/08/23 07/08/23 07/08/23 11:03 09:10 05:49 WBC 7.3 RBC 4.11 L Hgb 12.4 Hct 37.9 MCV 92.1 MCH 30.3 MCHC 32.9 RDW 14.3 Plt Count 183 MPV 8.4 Neut % (Auto) 74.1 Lymph % (Auto) 10.0 [place] % (Auto) 7.2 Eos % (Auto) 7.7 Baso % (Auto) 1.1 Neut # (Auto) 5.4 Lymph # (Auto) 0.7 [place] # (Auto) 0.5 Eos # (Auto) 0.6 H Baso # (Auto) 0.1 Sodium 137 Potassium 4.4 Chloride 104 Carbon Dioxide 33 H Anion Gap 4.4 L BUN 23 H Creatinine 1.30 H D Estimated Creat Clear 28 Estimated GFR 40 L Est GFR ( Amer) 48 L D Glucose 188 H POC Glucose 169 H 141 H Calcium 9.1 07/07/23 07/07/23 16:23 11:04 WBC RBC Hgb Hct MCV MCH MCHC RDW Plt Count MPV Neut % (Auto) Lymph % (Auto) [place] % (Auto) Eos % (Auto) Baso % (Auto) Neut # (Auto) Lymph # (Auto) [place] # (Auto) Eos # (Auto) Baso # (Auto) Sodium Potassium Chloride Carbon Dioxide Anion Gap BUN Creatinine Estimated Creat Clear Estimated GFR Est GFR ( Amer) Glucose POC Glucose 183 H 248 H Calcium DS: Diagnosis Discharge Diagnosis (1) NSTEMI (non-ST elevated myocardial infarction): Status: Acute Code(s): I21.4 - Non-ST elevation (NSTEMI) myocardial infarction (2) Acute hypoxemic respiratory failure: Status: Acute Code(s): J96.01 - Acute respiratory failure with hypoxia (3) Congestive heart failure: Status: Acute Code(s): I50.9 - Heart failure, unspecified Qualifiers: Heart failure chronicity: unspecified Heart failure type: unspecified Qualified Code(s): I50.9 - Heart failure, unspecified (4) Diabetes mellitus: Status: Acute Code(s): E11.9 - Type 2 diabetes mellitus without complications Qualifiers: Diabetes mellitus type: type 2 Diabetes mellitus long-term insulin use: without middle or intermediate school principal use Diabetes mellitus complication status: without complication Qualified Code(s): E11.9 - Type 2 diabetes mellitus without complications (5) Hypertension: Status: Acute Code(s): I10 - Essential (primary) hypertension Qualifiers: Hypertension type: unspecified Qualified Code(s): I10 - Essential (primary) hypertension (6) Morbid obesity with body mass index (BMI) of 40.0 to 44.9 in adult: Status: Acute Code(s): E66.01 - Morbid (severe) obesity due to excess calories; Z68.41 - Body mass index [BMI] 40.0-44.9, adult (7) S/P coronary artery stent placement: Status: Acute Code(s): Z95.5 - Presence of coronary angioplasty implant and graft (8) Acute kidney injury after administration of contrast media: Status: Acute Code(s): N99.0 - Postprocedural (acute) (chronic) kidney failure; T50.8X5A - Adverse effect of diagnostic agents, initial encounter Meds Home Medications and Allergies Home Medications Medication Instructions Recorded Confirmed Type citalopram 40 mg tablet 40 mg PO DAILY 07/04/23 07/04/23 History ergocalciferol (vitamin D2) 1,250 1,250 mcg PO WEEKLY 07/04/23 07/04/23 History mcg (50,000 unit) capsule (Vitamin D2) furosemide 40 mg tablet (Lasix) 40 mg PO DAILY 07/04/23 07/04/23 History glipizide 10 mg tablet, extended 10 mg PO BID 07/04/23 07/04/23 History release 24 hr meclizine 25 mg tablet 25 mg PO BID PRN Dizziness 07/04/23 07/04/23 History ondansetron HCl 8 mg tablet 8 mg PO Q8HP PRN Nausea And 07/04/23 07/04/23 History Vomiting promethazine 12.5 mg tablet 12.5 mg PO Q8HP PRN Nausea And 07/04/23 07/04/23 History Vomiting semaglutide 0.25 mg or 0.5 mg (2 0.5 mg SQ WEEKLY 07/04/23 07/04/23 History mg/3 mL) subcutaneous pen injector (Ozempic) aspirin 81 mg tablet,delayed 81 mg PO DAILY 30 days #30 tabs 07/08/23 Rx release atorvastatin 40 mg tablet 80 mg (2 x 40 mg) PO HS 30 days 07/08/23 Rx #60 tabs clopidogrel 75 mg tablet 75 mg PO DAILY 30 days #30 tabs 07/08/23 Rx metoprolol succinate 25 mg 25 mg PO DAILY 30 days #30 tabs 07/08/23 Rx tablet,extended release 24 hr pantoprazole 40 mg tablet,delayed 40 mg PO HS 30 days #30 tabs 07/08/23 Rx release New Prescriptions to Start Prescriptions: aspirin Jacky,Coreyan atorvastatin Jacky,[facility] succinate [facility] pantoprazole [facility] Allergies Allergy/AdvReac Type Severity Reaction Status Date / Time Penicillins Allergy Intermediate I-ITCHING, Verified 05/27/23 10:13 RASH, SWELLING Discharge Plan Disposition Patient Disposition: [facility] Condition: Good Discharge Order Discharge Orders: Discharge Order (Routine); Ordered 07/08/23 Ordered By: Suzanne Rico Follow up Plan Follow up with: Emerson Tyler MD [Staff Physician] - 07/11/23 10:45 am Prescriptions/Medication Reconciliation: New aspirin 81 mg Tablet,Delayed Release (Dr/Ec) 81 mg PO DAILY 30 Days Qty: 30 0RF atorvastatin 40 mg Tablet 80 mg PO HS 30 Days Qty: 60 0RF clopidogrel 75 mg Tablet 75 mg PO DAILY 30 Days Qty: 30 0RF pantoprazole 40 mg Tablet,Delayed Release (Dr/Ec) 40 mg PO HS 30 Days Qty: 30 0RF metoprolol succinate 25 mg Tablet Extended Release 24 Hr 25 mg PO DAILY 30 Days Qty: 30 0RF Continued citalopram 40 mg tablet 40 mg PO DAILY ondansetron HCl 8 mg tablet 8 mg PO Q8HP PRN (Reason: Nausea And Vomiting) glipizide 10 mg tablet extended release 24hr 10 mg PO BID promethazine 12.5 mg tablet 12.5 mg PO Q8HP PRN (Reason: Nausea And Vomiting) ergocalciferol (vitamin D2) [Vitamin D2] 1,250 mcg (50,000 unit) capsule 1,250 mcg PO WEEKLY Ozempic 0.25 mg or 0.5 mg (2 mg/3 mL) pen injector 0.5 mg SQ WEEKLY meclizine 25 mg Tablet 25 mg PO BID PRN (Reason: Dizziness) Held furosemide [Lasix] 40 mg Tablet 40 mg PO DAILY Hold Instructions: Resume on 07/15/23. Discontinued lisinopril-hydrochlorothiazide 20-12.5 mg tablet 1 tab PO DAILY Problem Reconciliation Problems Reviewed?: Yes Patient Discharge Instructions ACTIVITY: Ambulate as tolerated DIET: continue same diet Patient Instructions: Cardiac Catheterization, Heart-Healthy Diet, Carbohydrate-Counting Diet, DI for Heart Failure, Surgical Site Infection, DI for Respiratory Failure, Catheter-associated Urinary Tract Infection Providers Primary Care Provider: Isha Peñaloza Admit Provider: Suzanne Rico Attending Provider: Suzanne Rico
[2023-07-08] MEDS: ONDANSETRON 4MG/2ML VIAL 4 MG IV (13:28)
== END 2023-07-08 14:37 | DRG 321 ==
LOC: ER 07-04 01:17 → 2ND 07-04 01:59
PROVIDERS: Internal Medicine; Nurse Practitioner Family; Admitting Provider Internal Medicine; Emergency Provider Emergency Medicine; PCP Family Medicine; Visit Provider Internal Medicine
PROC: 027135Z Dilation of Coronary Artery, Two Arteries with Two Drug-eluting Intraluminal Devices, Percutaneous Approach (ICD-10-PCS; principal; 2023-07-04 11:30)
DX: I11.0 Hypertensive heart disease with heart failure (principal); I21.4 Non-ST elevation (NSTEMI) myocardial infarction; J96.01 Acute respiratory failure with hypoxia; I50.21 Acute systolic (congestive) heart failure; C82.90 Follicular lymphoma, unspecified, unspecified site; J96.10 Chronic respiratory failure, unspecified whether with hypoxia or hypercapnia; Z68.41 Body mass index [BMI] 40.0-44.9, adult; N17.8 Other acute kidney failure; K21.9 Gastro-esophageal reflux disease without esophagitis; E78.5 Hyperlipidemia, unspecified; E11.9 Type 2 diabetes mellitus without complications; M19.90 Unspecified osteoarthritis, unspecified site; Z98.0 Intestinal bypass and anastomosis status; Z96.641 Presence of right artificial hip joint; Z87.891 Personal history of nicotine dependence; E66.01 Morbid (severe) obesity due to excess calories; T50.8X5A Adverse effect of diagnostic agents, initial encounter
CPT/HCPCS: C9600; C9601; 36415; 51702; 71045; 71275; 80048; 80053; 80061; 81001; 82306; 82803; 82962; 83036; 83605; 83735; 83880; 84100; 84484; 85025; 85347; 85610; 85730; 87086; 92928; 92929; 93005; 93306; 93454; 94761; 97110; 97163; 97166; 97530; 99152; 99153; 99291; C1725; C1760; C1769; C1876; J1644; J2405; Q9967

== ENCOUNTER 2023-07-29 12:53 | Outpatient (RCR) | payer MEDICARE, SELFPAY ==
--- NOTE | 2023-07-29 17:18 | HMH.PTOPEV ---
PT Outpatient Evaluation Rehab PT Outpatient Evaluation Start: 07/29/23 12:56 Freq: Status: Active Protocol: Document 07/29/23 12:56 KARISSASINCERE (Rec: 07/29/23 17:18 KARISSASINCERE [id number]) E-signed By Jewell Valladares, PT Outpatient Therapy Subjective History Subjective History Pt is a 77 y/o female referred to PT for CHF and generalized weakness. Pt reports recent hospital admission at [facility] from 07/03-07/08/23 due to having a heart attack, states she had 5 stents placed. Pt reports while admitted, PT/OT recommended rehab. Pt states she went to [place] for 2 weeks following discharge from [facility]. Pt reports she returned home at the beginning of July. Pt reports she lives alone in a single-story home with 1 step with HR to enter. Pt reports she has recently been using a cane for all ambulation but did not use one prior to hospitalization. Pt reports she is independent with all ADLs and iADLs. 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 Pt reports her doctor prescribed her supplemental oxygen, states she was unable to receive it Saturday as planned due to issues with the order. Pt reports she was also diagnosed with follicular lymphoma in February of 2024, states she has received chemotherapy 4 times. Pt states she goes for a repeat scan soon and is supposed to receive chemotherapy once every 3 months from now on. 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 lymphoma in Feb 2023, currently on chemotherapy Chief Complaint Weakness Lumbopelvic Eval Manual Muscle Test Bilateral Knee Extension Strength Grade 4 Good Knee Flexion Strength Grade 4- Good- Hip Flexion Strength Grade 4- Good- Hip Abduction Strength Grade 4- Good- Hip Adduction Strength Grade 4- Good- Ankle Dorsiflexion Strength Grade 5 Normal Outpatient Therapy Assessment Impairments Problems/Impairmments Impaired Strength,Impaired Endurance,Impaired Transfers, Impaired Gait Pattern,Impaired Walking,Impaired Stair Climbing,Impaired Incline Stepping,Impaired Balance, Subjective C/O Pain,Impaired Self Care/Self Management Prognosis Rehab Potential Good Clinical Impression Consistent with Diagnosis Yes Short Term Goals Number of Weeks 3 Increase Endurance Yes: Perform NuStep x5-10' with RPE 5/10 or less Improve Self Care/Self Management Yes Patient to be Ind w/ HEP Yes Usp Goals Number of Weeks 6 Increase Strength Yes: Improve BLE MMT to 4+/5 grossly to assist with function Increase Endurance Yes: Perform NuStep x10-15' with RPE 5/10 or less Improve Transfers Yes: Improve 5x sit to stand score to 15 or less to dec fall risk Decrease TUG Time Yes: Improve time to 15 or less with SPC to dec fall risk Patient to be Ind w/ Advanced HEP Yes Outpatient Therapy Plan of Care Treatment Plan May Include Therapeutic Exercise Including Home Yes Exercise Program Manual Therapy Techniques Yes Neuromuscular Re-education Yes Therapeutic Activities to Return to Yes Previous Functional/Work Level Gait Training Yes ADL/Self Care Education Yes Group Therapy for Medicare Yes Eval/Re-Eval Yes Frequency Times per week 2 Duration Number of Weeks 4-6 Addendums This patient is a candidate for social No or vocational rehab? Patient/Guardian verbally acknowledges Yes understanding of treatment program and consents to further treatment? Patient/Guardian verbally acknowledges Yes understanding of diagnosis, prognosis and goals for treatment? Eval Complexity PT Charges 72438 - Moderate Complexity Shoulder/Elbow Eval Shoulder Objective Measurements Elbow Objective Measurements PHYSICIAN CERTIFICATION: I certify the specified therapy services for Dominga Ardon are required, authorized, and reviewed every 30 days.
== END 2023-07-29 14:00 | disposition home or self-care (01) ==
LOC: PT 12:53
PROVIDERS: Visit Provider Nurse Practitioner Family
DX: I50.22 Chronic systolic (congestive) heart failure (principal); R53.1 Weakness
CPT/HCPCS: 97163

== ENCOUNTER 2023-08-05 21:56 | Emergency (ER) | payer MEDICARE, SELFPAY ==
[2023-08-05 21:56] VITALS: BP 88/47; PULSE 93; RESP 16; TEMP 36.6; O2SAT 94; BMI 39.4
--- NOTE | 2023-08-05 21:58 | ED_ITS ---
<Statement entered by Francisco Javier Camara MD - 08/05/23 23:00> I was consulted by the ANDRÉS, and we discussed the complexity of the problems being addressed. I approved the treatment and management plan for this patient's care in the emergency department, thus performing a substantive portion of the medical decision making. Francisco Javier Camara MD Discharge Plan Disposition Patient Disposition: Xfer Short-Term Hosp Condition: Serious Chief Complaint: Urogenital-Female Prescriptions Prescriptions: No Action lisinopril-hydrochlorothiazide 20-12.5 mg tablet PO citalopram 40 mg tablet 40 mg PO DAILY ondansetron HCl 8 mg tablet 8 mg PO Q8HP PRN (Reason: Nausea And Vomiting) glipizide 10 mg tablet extended release 24hr 10 mg PO BID promethazine 12.5 mg tablet 12.5 mg PO Q8HP PRN (Reason: Nausea And Vomiting) ergocalciferol (vitamin D2) [Vitamin D2] 1,250 mcg (50,000 unit) capsule 1,250 mcg PO WEEKLY Ozempic 0.25 mg or 0.5 mg (2 mg/3 mL) pen injector 0.5 mg SQ WEEKLY furosemide [Lasix] 40 mg Tablet 40 mg PO DAILY Hold Instructions: Resume on 07/15/23. meclizine 25 mg Tablet 25 mg PO BID PRN (Reason: Dizziness) aspirin 81 mg Tablet,Delayed Release (Dr/Ec) 81 mg PO DAILY 30 Days Qty: 30 0RF atorvastatin 40 mg Tablet 80 mg PO HS 30 Days Qty: 60 0RF clopidogrel 75 mg Tablet 75 mg PO DAILY 30 Days Qty: 30 0RF pantoprazole 40 mg Tablet,Delayed Release (Dr/Ec) 40 mg PO HS 30 Days Qty: 30 0RF metoprolol succinate 25 mg Tablet Extended Release 24 Hr 25 mg PO DAILY 30 Days Qty: 30 0RF Referrals Follow up/Referrals: Humberto Camarena MD [Primary Care Provider] - See instructions Clinical Impressions Clinical Impression: Acute nontraumatic kidney injury Instructions Patient Instructions: DI for Urinary Tract Infection (UTI), DI for Urinary Tract Infection in Children Discharge ED Provider: Francisco Javier Camara General Adult HPI General Chief complaint: Urogenital-Female Stated complaint: n/v Time Seen by Provider: 08/05/23 21:58 History of Present Illness HPI narrative: Patient presents for evaluation of nausea vomiting dysuria. Patient has past medical history of follicular lymphoma under the care of Dr. Enrique Montiel in [place]. Dr. Montiel also initiated the patient on chronic oxygen recently. Patient's last chemo was before July 02 because patient had cardiac stents placed on 02 July. Additionally patient reports that she was getting chemotherapy every 3 weeks but has now been extended to every 3 months for the next [address] Montiel. Patient is actually been doing well but states that she ran out of water by which she meant bottled water and has not been drinking much. She denies chest pain fever chills hemoptysis hematochezia melena diarrhea. Related Data Home Medications Medication Instructions Recorded Confirmed citalopram 40 mg tablet 40 mg PO DAILY 07/04/23 07/11/23 ergocalciferol (vitamin D2) 1,250 1,250 mcg PO WEEKLY 07/04/23 07/11/23 mcg (50,000 unit) capsule (Vitamin D2) furosemide 40 mg tablet (Lasix) 40 mg PO DAILY 07/04/23 07/04/23 glipizide 10 mg tablet, extended 10 mg PO BID 07/04/23 07/11/23 release 24 hr meclizine 25 mg tablet 25 mg PO BID PRN Dizziness 07/04/23 07/11/23 ondansetron HCl 8 mg tablet 8 mg PO Q8HP PRN Nausea And 07/04/23 07/11/23 Vomiting promethazine 12.5 mg tablet 12.5 mg PO Q8HP PRN Nausea And 07/04/23 07/11/23 Vomiting semaglutide 0.25 mg or 0.5 mg (2 0.5 mg SQ WEEKLY 07/04/23 07/11/23 mg/3 mL) subcutaneous pen injector (Ozempic) lisinopril 20 tab PO 07/11/23 07/11/23 mg-hydrochlorothiazide 12.5 mg tablet Previous Rx's Medication Instructions Recorded aspirin 81 mg tablet,delayed 81 mg PO DAILY 30 days #30 tabs 07/08/23 release atorvastatin 40 mg tablet 80 mg (2 x 40 mg) PO HS 30 days 07/08/23 #60 tabs clopidogrel 75 mg tablet 75 mg PO DAILY 30 days #30 tabs 07/08/23 metoprolol succinate 25 mg 25 mg PO DAILY 30 days #30 tabs 07/08/23 tablet,extended release 24 hr pantoprazole 40 mg tablet,delayed 40 mg PO HS 30 days #30 tabs 07/08/23 release Allergies Allergy/AdvReac Type Severity Reaction Status Date / Time Penicillins Allergy Intermediate I-ITCHING, Verified 07/11/23 10:50 [facility] Disclaimer: The information contained in this section may have been updated after the patient was seen, as this information can be updated by other users. Medical History Sinus headache History of gastroesophageal reflux (GERD) Pneumonia Bronchitis Arthritis Diabetes mellitus, type 2 History of cataract Hyperlipidemia Hypertension Edema Surgical History Hx of cataract surgery H/O left wrist surgery History of ankle surgery left ankle x2 Hx of laparoscopic gastric banding H/O total hysterectomy History of hip replacement right hip Family History Brother Hx of heart surgery Abdominal aortic aneurysm Heart disease Mother Dementia Heart disease Father Prostate cancer Sister Breast cancer Cancer Family/Other Heart attack Social History Smoking Status: Former smoker years smoked: 15 smoking status stop date: 1999 second hand exposure: No alcohol intake: never current occupational status: retired Travel in the last 8 weeks: None household members: spouse housing: house caffeine: Yes ROS Obtained: Yes Systems reviewed as appropriate & no additional complaints except as documented Physical Exam General General appearance: alert and in no apparent distress Head Head exam: atraumatic and normal inspection Eye Eye exam: Present normal appearance, PERRL and EOMI ENT ENT exam: Present normal exam, normal oropharynx and mucous membranes moist Neck Neck exam: Present normal inspection, full ROM and trachea midline; Absent lymphadenopathy Chest Chest inspection: Present normal inspection and symmetric chest wall rise Respiratory Respiratory exam: Present normal lung sounds bilaterally; Absent accessory muscle use Cardiovascular Cardiovascular exam: Present regular rate, normal rhythm, normal heart sounds, +S1 and +S2 Abdominal Exam Abdominal exam: Present soft and normal bowel sounds; Absent tenderness, guarding or rebound Extremities Exam Extremities exam: Present normal inspection and full ROM Back Exam Back exam: Present normal inspection and full ROM; Absent tenderness Neurological Exam Neurological exam: Present alert, oriented X3 and CN II-XII intact Psychiatric Psychiatric exam: Present normal affect and normal mood Skin Skin exam: Present warm, dry and normal color Medical Decision Making Medical Records Medical records reviewed: Yes I reviewed the patient's medical records. Lele Inquiry Pt receiving controlled substance: No Vital Signs: 08/05/23 21:56 08/05/23 22:30 Temperature 98 F Temperature Source Oral Pulse Rate 86 Pulse Rate [Right Radial] 93 H Respiratory Rate 16 Blood Pressure 110/54 L Blood Pressure [Right Arm] 88/47 L Blood Pressure Mean 63 Blood Pressure Mean [Right Arm] 60 02 Sat by Pulse Oximetry 94 L 96 Oxygen Delivery Method Nasal Cannula Room Air Oxygen Flow Rate (LPM) 2 Lab Data Lab results reviewed: Yes I reviewed the patient's lab results. Lab Results 08/05/23 22:05: WBC 8.1, RBC 3.96 L, Hgb 13.4, Hct 36.5 L, MCV 92.3, MCH 33.8 H, MCHC 36.6 H, RDW 14.5, Plt Count 185, MPV 8.8, Neut % (Auto) 76.2, Lymph % (Auto) 9.7 L, Benson % (Auto) 7.9, Eos % (Auto) 5.2, Baso % (Auto) 1.0, Neut # (Auto) 6.1, Lymph # (Auto) 0.8, Benson # (Auto) 0.6, Eos # (Auto) 0.4, Baso # (Auto) 0.1, Sodium 134 L, Potassium 3.7, Chloride 97 L, Carbon Dioxide 29, Anion Gap 11.7, BUN 29 H, Creatinine 2.90 H, Estimated Creat Clear 26, Estimated GFR 16 L*, Est GFR ( Amer) 19 L*, Glucose 192 H, Lactate 1.6, Calcium 9.1, M agnesium 1.5 L, Total Bilirubin 0.7, AST 22, ALT 19, Alkaline Phosphatase 93, Total Protein 6.4, Albumin 3.9, Globulin 2.5, Albumin/Globulin Ratio 1.6 08/05/23 22:05 08/05/23 22:05 Orders (Tests/Meds): ED MEDICATIONS Generic Name Dose Route Start Last Admin Trade Name Freq PRN Reason Stop Dose Admin Lactated Ringer's 1,000 mls @ 999 mls/hr 08/05/23 21:59 08/05/23 22:29 Lactated Ringer's 1000 Ml Bag IV 08/05/23 22:59 999 mls/hr .Q1H1M ONE Administration Discontinued Medications Generic Name Dose Route Start Last Admin Trade Name Lorna PRN Reason Stop Dose Admin Acetaminophen 1,000 mg 08/05/23 21:59 08/05/23 22:29 Acetaminophen 1,000mg/100ml Vial IV 08/05/23 22:00 1,000 mg ONCE ONE Administration Ketorolac Tromethamine 15 mg 08/05/23 21:59 08/05/23 22:30 Ketorolac 30mg/Ml Vial IV 08/05/23 22:00 15 mg ONCE ONE Administration Ondansetron HCl 4 mg 08/05/23 21:59 08/05/23 22:32 Ondansetron 4mg Odt SL 08/05/23 22:00 4 mg ONCE ONE Administration ORDERS Category Date Time Status CBC w/Auto Diff [Complete Blood Count Auto Diff] Stat Lab 08/05/23 22:05 Completed CMP [Comprehensive Metabolic Panel] Stat Lab 08/05/23 22:05 Completed Lactic Acid Stat Lab 08/05/23 22:05 Completed Magnesium Stat Lab 08/05/23 22:05 Completed UA [Urinalysis and Microscopic] Stat Lab 08/05/23 22:44 Received Medical Decision Narrative: In summary patient is a 77-year-old female who presents to the emergency department for evaluation of dehydration . Patient is hypotensive but with a heart rate of 95 breathing 18 times a minute satting at greater than 94% on 2 L by nasal cannula upon arrival, afebrile currently. Physical exam is unremarkable and nonfocal including no abdominal pain no chest pain normal breath sounds without any adventitious sounds.. Differential diagnosis includes gastroenteritis versus renal failure urinary tract infectious disease versus sepsis versus neutropenia . Initial workup will be conducted with hematologic labs urinalysis. Initial interventions include crystalloid bolus. Initial workup reviewed by me shows a significant kidney injury with a creatinine of 2.9 and a GFR 14. Of note patient underwent catheter-based intervention with stent placement in June prior to which she had normal GFR. Given her comorbidities the lack of inpatient nephrology and new kidney injury I had an interactive discussion with the hospitalist at [facility] where her oncologist is regarding patient management. Patient was accepted by Dr. Stevens hospitalist. Critical Care Critical Care Time Critical Care Time: No
[2023-08-05 22:20] LABS: Basophils # 0.1 K/mm3 (0-0.2); Eosinophils # 0.4 K/mm3 (0.0-0.4); Eosinophils % 5.2 % (0.1-12.0); Hematocrit 36.5 % (37.0-47.0); Hemoglobin 13.4 g/dL (12.2-16.2); Lymphocytes # 0.8 K/mm3 (0.7-4.5); Lymphocytes % 9.7 % (10-50); Mean Corpuscular HGB Conc 36.6 g/dL (31.8-35.4); Mean Corpuscular Hemoglobin 33.8 pg (27.0-31.2); Mean Corpuscular Volume 92.3 fl (81-99); Mean Platelet Volume 8.8 fl (7.4-10.4); Monocytes # 0.6 K/mm3 (0.1-1.0); Monocytes % 7.9 % (1.7-9.3); Neutrophils # 6.1 K/mm3 (1.8-7.8); Neutrophils % 76.2 % (37.0-80.0); Platelet Count 185 K/mm3 (142-424); Red Blood Count 3.96 M/mm3 (4.20-5.40); Red Cell Distribution Width 14.5 % (11.5-17.5); White Blood Count 8.1 K/mm3 (4.8-10.8)
[2023-08-05 22:24] LABS: Chloride 97 mmol/L (98-107); Potassium 3.7 mmoL/L (3.5-5.1); Sodium 134 mmol/L (136-145)
[2023-08-05 22:26] LABS: Alanine Aminotransferase 19 U/L (12-78); Aspartate Amino Transferase 22 U/L (14-36); Blood Urea Nitrogen 29 mg/dl (7-17); Creatinine Clearance Estimated 26 mL/min (50-200); Estimated Glomerular Filt Rate 16 ml/min (>60); GFR (African American) 19 ML/MIN (>60); Lactic Acid 1.6 mmol/L (0.7-2.1)
[2023-08-05 22:27] LABS: Albumin Level 3.9 g/dl (3.5-5.0); Albumin/Globulin Ratio 1.6 (1.1-1.8); Alkaline Phosphatase 93 U/L (38-126); Anion Gap 11.7 mEq/L (5-15); Bilirubin,Total 0.7 mg/dl (0.2-1.3); Calcium 9.1 mg/dl (8.4-10.2); Carbon Dioxide 29 mmol/L (22.0-30.0); Globulin 2.5 g/dL (1.3-3.2); Glucose 192 mg/dl (74-100); Magnesium 1.5 mg/dl (1.6-2.3); Total Protein,Serum 6.4 g/dl (6.3-8.2)
[2023-08-05] MEDS: ACETAMINOPHEN 1,000MG/100ML VIAL 1000 MG IV (22:29)
[2023-08-05] MEDS: LACTATED RINGERS 1000ML 1,000 ML 999 ML IV (22:29)
[2023-08-05 22:30] VITALS: BP 110/54; PULSE 86; O2SAT 96
[2023-08-05] MEDS: KETOROLAC 30MG/ML VIAL 15 MG IV (22:30)
[2023-08-05] MEDS: ONDANSETRON 4MG ODT 4 MG SL (22:32)
[2023-08-05 22:49] LABS: Microscopic, Urine URINE MICROSCOPIC (MICROSCOPIC)
[2023-08-05 22:51] LABS: Blood, Urine 2+ (Negative); Color,Urine YELLOW (Yellow); Glucose,Urine (UA) Negative (Negative); Ketones,Urine TRACE (Negative); Leukocyte Esterase,Urine 2+ (Negative); Nitrate,Urine Negative (Negative); PH,Urine 5.5 (5.0-8.5); Protein,Urine 2+ (Negative); Specific Gravity, Urine >= 1.030 (1.005-1.030)
[2023-08-05 22:54] LABS: Appearance,Urine Cloudy (Clear); Bilirubin,Urine Negative (Negative)
--- NOTE | 2023-08-05 22:54 | PC.NURSE ---
Pt accepted to [facility] for transfer to nephrology services.
[2023-08-05 23:11] VITALS: BP 97/47; PULSE 87; O2SAT 98
--- NOTE | 2023-08-05 23:23 | PC.NURSE ---
Nurse to nurse report to Tonja Pastrana RN
[2023-08-05 23:30] VITALS: BP 111/53; PULSE 86; O2SAT 97
[2023-08-05 23:37] LABS: Bacteria,Urine 1+ /lpf; Squamous Epithelial Cell,Urine Occasional #/hpf (0-5)
[2023-08-05] MEDS: CEFTRIAXONE SODIUM 1 GM in 0.9 % SODIUM CHLORIDE 50 ML IV (23:41)
[2023-08-05] MEDS: MAGNESIUM SULFATE IN WATER 2 GM/50 ML PIGGYBACK IV (23:55)
[2023-08-06] VITALS: BP 119/59; PULSE 86; O2SAT 97
[2023-08-06 00:17] VITALS: BP 119/59; PULSE 86; RESP 16; TEMP 36.6; O2SAT 97
--- NOTE | 2023-08-09 12:47 | PC.NURSE ---
discussed urine culture with , pt given IV rocephin in ER, NTD
== END 2023-08-06 00:23 | disposition short-term general hospital (02) ==
PROVIDERS: Physician Assistant; Emergency Provider Emergency Medicine; PCP Internal Medicine Adolescent Medicine
DX: N17.9 Acute kidney failure, unspecified; B96.1 Klebsiella pneumoniae [K. pneumoniae] as the cause of diseases classified elsewhere; R30.0 Dysuria; R11.2 Nausea with vomiting, unspecified; E11.9 Type 2 diabetes mellitus without complications; I10 Essential (primary) hypertension; E78.5 Hyperlipidemia, unspecified; K21.9 Gastro-esophageal reflux disease without esophagitis; Z79.84 Long term (current) use of oral hypoglycemic drugs; Z79.85 Long-term (current) use of injectable non-insulin antidiabetic drugs; C82.90 Follicular lymphoma, unspecified, unspecified site
CPT/HCPCS: 80053; 81001; 83605; 83735; 85025; 87086; 87088; 87186; 96365; 96375; 99285; J0131; J0696; J3475

== ENCOUNTER 2023-08-09 14:00 | Outpatient (RCR) | payer MEDICARE, SELFPAY | END 2023-08-09 15:00 | disposition home or self-care (01) | LOC: OT 14:00 | PROVIDERS: Visit Provider Nurse Practitioner Family | DX: I50.22 Chronic systolic (congestive) heart failure (principal) | CPT/HCPCS: 97110; 97165 ==

== ENCOUNTER 2023-09-02 12:44 | Outpatient (CLI) | payer MEDICARE, SELFPAY ==
--- NOTE | 2023-09-02 12:44 | CA_ITS ---
APPROVED REPORT EXAM: Limited 2D Echocardiogram Visual Effects Editor: Diana Malagon RVT Ht: 5 ft 2 in Wt: 212lbs BSA: 1.96 BP: 117/46 mmHg Indications: EF CHECK,EF OF 45% ON 07/04/23,S/P STENTING,CAD,DM,HTN,SOA,CBF 2D Dimensions IVSd 1.29 cm F: 0.6-1.0 LVEF (Visual) 47.20 % PWd 0.71 cm F: 0.6 - 1.0 LVDd 4.70 cm F: 3.9 - 5.3 LVDs 3.59 cm F: 2.2 - 3.5 M-Mode Dimensions RVDd 2.72 cm (0.9-2.6) LA Diam 3.41 cm (1.9-4.0) LVDd 4.63 cm (3.5-5.7) LVDs 3.44 cm (3.5-5.7) IVSd 0.64 cm (0.6-1.1) PWd 0.89 cm (0.6-1.1) EF (Teich) 50.60% FS 25.70% EDV (Teich) 98.80 mL ESV (Teich) 48.80 mL Other Information Study Quality: Fair Conclusion This is a limited TTE to evaluate for LVEF. Limited windows were obtained. Technically difficult study. The left ventricle is normal in size. There is increased LV wall thickness. There is normal global LV systolic function. Moderate hypokinesis of the inferior and inferolateral LV otero. LVEF is 50-55%. Compared to prior study from 07/04/2023, the LVEF is improved. Electronically signed by : Ashley Washington MD 09/03/2023 11:45:49
== END 2023-09-02 23:59 | disposition home or self-care (01) ==
LOC: RT 12:44
PROVIDERS: PCP Internal Medicine Adolescent Medicine; Visit Provider Physician Assistant
DX: I11.0 Hypertensive heart disease with heart failure (principal); I25.10 Atherosclerotic heart disease of native coronary artery without angina pectoris; I50.20 Unspecified systolic (congestive) heart failure; R06.00 Dyspnea, unspecified; Z95.5 Presence of coronary angioplasty implant and graft; Z87.891 Personal history of nicotine dependence
CPT/HCPCS: 93308

== ENCOUNTER 2023-10-01 13:20 | Outpatient (CLI) | payer MEDICARE, SELFPAY ==
[2023-10-01 13:57] LABS: Blood Urea Nitrogen 14 mg/dl (7-17); Estimated Glomerular Filt Rate 61 ml/min (>60); GFR (African American) 74 ML/MIN (>60)
--- NOTE | 2023-10-01 14:11 | CA_ITS ---
FINAL REPORT CLINICAL HISTORY: PT HAD HEART CATH 07/04/23 WITH RIGHT WRIST ACCESS, PAIN,?RADIAL NERVE PALSY COMPARISON: None FINDINGS: Spectral and Doppler waveform evaluations of the right wrist was performed. Spectral analysis was performed. There is no evidence of pseudo aneurysm, thrombus, or AV fistula in the right wrist. IMPRESSION: Unremarkable exam. Reviewed, Interpreted and Dictated by Chiqui Welch MD Transcribed by Sena Gross Authenticated and [facility]
== END 2023-10-01 23:59 | disposition home or self-care (01) ==
LOC: RAD 13:21
PROVIDERS: PCP Internal Medicine Adolescent Medicine; Visit Provider Physician Assistant
DX: I77.0 Arteriovenous fistula, acquired (principal); G56.31 Lesion of radial nerve, right upper limb
CPT/HCPCS: 36415; 82565; 84520; 93931

== ENCOUNTER 2024-04-26 14:41 | Emergency (ER) | payer MEDICARE, SELFPAY ==
--- NOTE | 2024-04-26 15:36 | EXP.UTC ---
Discharge Plan Disposition Patient Disposition: Home, Self-Care Condition: Good Prescriptions Prescriptions: New azithromycin [Zithromax] 250 mg tablet 250 mg PO UD DOSE PK Qty: 6 0RF Rx Instructions: Take two (2) tablets today, then one (1) tablet days #2 thru #5 benzonatate 100 mg capsule 100 mg PO TIDP PRN (Reason: Cough) Qty: 30 0RF prednisone 20 mg tablet 20 mg PO BID 3 Days Qty: 6 0RF No Action clopidogrel 75 mg tablet 75 mg PO DAILY Qty: 90 3RF aspirin 81 mg tablet,delayed release (DR/EC) 81 mg PO DAILY Qty: 90 3RF atorvastatin 80 mg tablet 80 mg PO HS Qty: 90 3RF lisinopril-hydrochlorothiazide 20-12.5 mg tablet 0.5 tab PO DAILY Qty: 90 3RF metoprolol succinate 25 mg tablet extended release 24 hr 25 mg PO DAILY Qty: 90 3RF furosemide [Lasix] 40 mg tablet 40 mg PO DAILY Qty: 90 3RF citalopram 40 mg tablet 40 mg PO DAILY Patient Comments: Pt believes that she is taking 10mg, will check bottle for future update. glipizide 10 mg tablet extended release 24hr 10 mg PO BID ergocalciferol (vitamin D2) [Vitamin D2] 1,250 mcg (50,000 unit) capsule 1,250 mcg PO WEEKLY Ozempic 0.25 mg or 0.5 mg (2 mg/3 mL) pen injector 0.5 mg SQ WEEKLY Referrals Follow up/Referrals: Humberto Camarena MD [Primary Care Provider] - See instructions Activity Restrictions/Add. Instructions Additional Instructions/Restrictions: Drink plenty of fluids. Take tylenol or ibuprofen for pain or fever. Take the medications as directed. Follow up with your regular doctor. GO TO THE ER FOR ANY WORSENING SYMPTOMS Clinical Impressions Clinical Impression: Acute bronchitis, Pharyngitis, Acute viral syndrome Instructions Patient Instructions: DI for Acute Bronchitis Print Language Print Language: Lithuanian Discharge ED Provider: Rick Buckley [facility] HPI General Stated complaint: sore throat, cough Time Seen by Provider: 04/26/24 15:36 Related Data Home Medications ?Medication ?Instructions ?Recorded ?Confirmed citalopram 40 mg tablet 40 mg PO DAILY 07/04/23 12/24/23 ergocalciferol (vitamin D2) 1,250 1,250 mcg PO WEEKLY 07/04/23 12/24/23 mcg (50,000 unit) capsule (Vitamin D2) glipizide 10 mg tablet, extended 10 mg PO BID 07/04/23 12/24/23 release 24 hr semaglutide 0.25 mg or 0.5 mg (2 0.5 mg SQ WEEKLY 07/04/23 12/24/23 mg/3 mL) subcutaneous pen injector (Ozempic) Previous Rx's ?Medication ?Instructions ?Recorded aspirin 81 mg tablet,delayed 81 mg PO DAILY #90 tabs 08/20/23 release atorvastatin 80 mg tablet 80 mg PO HS #90 tabs 08/20/23 clopidogrel 75 mg tablet 75 mg PO DAILY #90 tabs 08/20/23 furosemide 40 mg tablet (Lasix) 40 mg PO DAILY #90 tabs 08/20/23 lisinopril 20 0.5 tab PO DAILY #90 tabs 08/20/23 mg-hydrochlorothiazide 12.5 mg tablet metoprolol succinate 25 mg 25 mg PO DAILY #90 tabs 08/20/23 tablet,extended release 24 hr azithromycin 250 mg tablet 250 mg PO UD DOSE PK #6 tabs 04/26/24 (Zithromax) benzonatate 100 mg capsule 100 mg PO TIDP PRN Cough #30 caps 04/26/24 prednisone 20 mg tablet 20 mg PO BID 3 days #6 tabs 04/26/24 Allergies Allergy/AdvReac Type Severity Reaction Status Date / Time Penicillins Allergy Intermediate I-ITCHING, Verified 12/24/23 13:16 RASH, SWELLING PFSH PFSH Disclaimer: The information contained in this section may have been updated after the patient was seen, as this information can be updated by other users. Medical History Right radial nerve palsy Heart attack 07/03/2023 HFrEF (heart failure with reduced ejection fraction) Sinus headache History of gastroesophageal reflux (GERD) Pneumonia Bronchitis Arthritis Diabetes mellitus, type 2 History of cataract Hyperlipidemia Hypertension Edema Surgical History Hx of cataract surgery H/O left wrist surgery History of ankle surgery left ankle x2 Hx of laparoscopic gastric banding H/O total hysterectomy History of hip replacement right hip Family History Brother Hx of heart surgery Abdominal aortic aneurysm Heart disease Mother Dementia Heart disease Father Prostate cancer Sister Breast cancer Cancer Family/Other Heart attack Social History Smoking Status: Former smoker years smoked: 15 smoking status stop date: 1999 second hand exposure: No alcohol intake: never current occupational status: retired Travel in the last 8 weeks: None household members: spouse housing: house caffeine: Yes Have you lived/traveled outside [place] in past 30 days?: No Contact w/someone who lives/traveled outside [place] past 30 days?: No Exposure to someone with infectious disease in past 14 days?: No Do you have a fever (greater than 100.4 F or 38 C)?: No Have you tested positive for COVID-19: No Exposed to someone with COVID-19 in past 14 days?: No Do you have a sore throat?: Yes Do you have a cough?: Yes Do you have any weakness?: No Do you have any diarrhea?: No Are you experiencing any unusual bleeding?: No Do you have any muscle aches/pain?: No Do you have any abdominal pain?: No Are you experiencing loss of taste or smell?: No ROS Obtained: Yes All systems reviewed & no additional complaints except as documented Constitutional Constitutional: Reports chills and Reports fever(s) Eyes Eyes: Denies eye discharge ENT Ears, Nose, Mouth, and Throat: Reports as per HPI Cardiovascular Cardiovascular: Denies chest pain Respiratory Respiratory: Denies chest congestion and Reports cough Gastrointestinal Gastrointestingal: Reports nausea; Denies abdominal pain, constipation, cramping, diarrhea or vomiting Musculoskeletal Musculoskeletal: Denies arthralgias Integumentary/Breasts Skin/Breast: Denies rash Neurologic Neurologic: Denies paresthesias Physical Exam General General appearance: alert and in no apparent distress Head Head exam: atraumatic, normocephalic and normal inspection Eye Eye exam: Present normal appearance, PERRL and EOMI ENT ENT exam: Present normal exam, normal oropharynx, mucous membranes moist, TM's normal bilaterally and normal external ear exam Neck Neck exam: Present normal inspection, full ROM and trachea midline; Absent meningismus or lymphadenopathy Chest Chest inspection: Present normal inspection and symmetric chest wall rise; Absent tenderness Respiratory Respiratory exam: Present normal lung sounds bilaterally; Absent respiratory distress Cardiovascular Cardiovascular exam: Present regular rate and normal rhythm; Absent JVD Abdominal Exam Abdominal exam: Present soft and normal bowel sounds; Absent distention, tenderness or guarding Extremities Exam Extremities exam: Present normal inspection, full ROM and normal capillary refill; Absent calf tenderness Back Exam Back exam: Present normal inspection; Absent tenderness Neurological Exam Neurological exam: Present alert and oriented X3 Psychiatric Psychiatric exam: Present normal affect and normal mood Skin Skin exam: Present warm, dry, intact and normal color Lymphatic Lymphatic Findings: no adenopathy Medical Decision Making Medical Records Medical records reviewed: No I reviewed the patient's medical records. Screening: Per USPSTF and CDC recommendations, given the prevalence of disease in our region, it is our hospital?s policy to screen for HIV and viral Hepatitis for all patients aged 18 and over and those with ongoing risk factors. Lele Inquiry Pt receiving controlled substance: No Lab Data Lab results reviewed: Yes I reviewed the patient's lab results.
--- NOTE | 2024-04-26 15:46 | XR_ITS ---
PROCEDURE INFORMATION: Exam: XR Chest Exam date and time: 04/26/2024 4:11 PM Age: 78 years old Clinical indication: Other: Chest congestion TECHNIQUE: Imaging protocol: Radiologic exam of the chest. Views: 2 views. COMPARISON: CT ANGIO CHEST PE PROTOCOL 07/04/2023 12:30 AM FINDINGS: Lungs: Hyperexpanded lung hernandez consistent with COPD. No consolidation. Pleural spaces: Unremarkable. No pleural effusion. No pneumothorax. Heart/Mediastinum: Unremarkable. No cardiomegaly. Bones/joints: Unremarkable. IMPRESSION: No acute findings. No focal consolidation
[2024-04-26 15:48] VITALS: BP 140/77; PULSE 115; RESP 21; TEMP 37.1; O2SAT 92; BMI 37.8
[2024-04-26 16:18] LABS: UTC Influenza A Antigen Negative (Negative); UTC Influenza B Antigen Negative (Negative)
[2024-04-26 17:01] VITALS: BP 140/77; PULSE 115; RESP 21; TEMP 37.1
[2024-04-26 17:30] LABS: Coronavirus 19, PCR Not Detected (NotDetected); Human Rhinovirus Not Detected (NotDetected); Influenza A, PCR Not Detected (NotDetected); Influenza B, PCR Not Detected (NotDetected); Respiratory Syncytial Virus Not Detected (NotDetected)
== END 2024-04-26 17:17 | disposition home or self-care (01) ==
PROVIDERS: Emergency Provider Nurse Practitioner Family; PCP Internal Medicine Adolescent Medicine
DX: J20.9 Acute bronchitis, unspecified (principal); J02.9 Acute pharyngitis, unspecified; B34.9 Viral infection, unspecified
CPT/HCPCS: 71046; 87631; 87804; 99212; G0381

== ENCOUNTER 2024-05-05 09:59 | Emergency (ER) | payer MEDICARE, SELFPAY ==
[2024-05-05 10:00] VITALS: BP 152/58; PULSE 55; RESP 22; TEMP 36.7; O2SAT 90; BMI 36.6
--- NOTE | 2024-05-05 10:11 | ECG_ITS ---
APPROVED REPORT Exam: Resting ECG HR:110 bpm ECG Measurements Heart Rate 110 AXES MA 151 P 86 QRSd 89 QRS 44 QT 300 T 41 QTc 365 Conclusion SINUS TACHYCARDIA NONSPECIFIC T-WAVE ABNORMALITY No STEMI Electronically signed by : JEAN JANE, 05/06/2024 10:13:21
[2024-05-05 10:17] LABS: VBG PH 7.34 mmol/L (7.31-7.41)
[2024-05-05 10:19] LABS: VBG Base Excess 3.5 mmol/L (-2.4-2.3); VBG HCO3 29.3 mmol/L (23-30); VBG Oxygen Saturation 63.4 % (50-70); VBG PCO2 56.1 mmol/L (35-51); VBG PO2 33.5 mmol/L (28-40)
[2024-05-05 10:20] LABS: Lactate Venous 1.6 mmol/L (0.4-2.0)
--- NOTE | 2024-05-05 10:31 | PC.NURSE ---
ROUNDED ON THE PT. THE PT VOICES THAT SHE DOES NOT NEED ANYTHING AT THIS TIME. CALL LIGHT IS WITHIN REACH OF THE PT.
[2024-05-05 10:33] VITALS: BP 169/80; PULSE 114; RESP 30; O2SAT 100
--- NOTE | 2024-05-05 10:39 | CT_ITS ---
FINAL REPORT TECHNIQUE: Axial imaging of the chest is obtained after the administration of contrast. 3-D MIP reformatted images were also obtained and reviewed per PE protocol. CLINICAL HISTORY: SOA, cough, resp failure COMPARISON: 07/04/2023 FINDINGS: The pulmonary arteries are well filled. There is no evidence of pulmonary embolus. There is no aortic dissection. Heart size is normal. There is no mediastinal, hilar, or axillary lymphadenopathy. There are basilar predominant groundglass opacities which are somewhat patchy with some interlobular septal thickening. Findings are favored to represent pneumonia. Pulmonary edema felt less likely. There is no pleural or pericardial effusion. Limited evaluation of the upper abdomen is without acute abnormality. No acute osseous abnormality. IMPRESSION: No evidence of pulmonary embolism or aortic dissection. Basilar predominant, patchy groundglass opacities, favor pneumonia. Pulmonary edema considered less likely. Reviewed, Interpreted and Dictated by Chiqui Welch MD Transcribed by Donna Wesley Authenticated and [facility]
--- NOTE | 2024-05-05 10:43 | ED_ITS ---
Discharge Plan Disposition Patient Disposition: Home, Self-Care Condition: Good Prescriptions Prescriptions: New doxycycline hyclate 100 mg tablet 100 mg PO BID 10 Days Qty: 20 0RF albuterol sulfate 90 mcg/actuation HFA aerosol inhaler 1 inh inhalation Q4H PRN (Reason: shortness of breath or wheezing) Qty: 8.5 0RF prednisone 20 mg tablet 40 mg PO DAILY 4 Days Qty: 8 0RF ondansetron 4 mg tablet,disintegrating 4 mg PO Q8H PRN (Reason: nausea and vomiting) 4 Days Qty: 12 0RF furosemide [Lasix] 40 mg tablet 40 mg PO DAILY 7 Days Qty: 7 0RF No Action clopidogrel 75 mg tablet 75 mg PO DAILY Qty: 90 3RF aspirin 81 mg tablet,delayed release (DR/EC) 81 mg PO DAILY Qty: 90 3RF atorvastatin 80 mg tablet 80 mg PO HS Qty: 90 3RF lisinopril-hydrochlorothiazide 20-12.5 mg tablet 0.5 tab PO DAILY Qty: 90 3RF metoprolol succinate 25 mg tablet extended release 24 hr 25 mg PO DAILY Qty: 90 3RF furosemide [Lasix] 40 mg tablet 40 mg PO DAILY Qty: 90 3RF azithromycin [Zithromax] 250 mg tablet 250 mg PO UD DOSE PK Qty: 6 0RF Rx Instructions: Take two (2) tablets today, then one (1) tablet days #2 thru #5 benzonatate 100 mg capsule 100 mg PO TIDP PRN (Reason: Cough) Qty: 30 0RF prednisone 20 mg tablet 20 mg PO BID 3 Days Qty: 6 0RF citalopram 40 mg tablet 40 mg PO DAILY Patient Comments: Pt believes that she is taking 10mg, will check bottle for future update. glipizide 10 mg tablet extended release 24hr 10 mg PO BID ergocalciferol (vitamin D2) [Vitamin D2] 1,250 mcg (50,000 unit) capsule 1,250 mcg PO WEEKLY Ozempic 0.25 mg or 0.5 mg (2 mg/3 mL) pen injector 0.5 mg SQ WEEKLY Referrals Follow up/Referrals: Humberto Camarena MD [Primary Care Provider] - See instructions Activity Restrictions/Add. Instructions Additional Instructions/Restrictions: You were evaluated in the emergency department today. At this time, your labs and imaging are concerning for a possible flareup of CHF. For this, we are prescribing you a week of increased Lasix. Please take this in addition to your home Lasix. You also have findings concerning for pneumonia, especially given your sputum production. For this, you are being prescribed an antibiotic. Given your wheezing, I am also providing you with steroids and an inhaler. I have sent in Zofran to have as needed for nausea and vomiting. Please make sure to follow-up with your primary care provider as well as with cardiology over the next 2 to 3 days. Return to the emergency department right away for new or worsening symptoms Clinical Impressions Clinical Impression: Shortness of breath, Pneumonia, Wheezing, Acute exacerbation of CHF (congestive heart failure) Instructions Patient Instructions: Pneumonia--Adult, Heart Failure, DI for Shortness of Breath Print Language Print Language: Sri [place]ankan Discharge ED Provider: Jewell Swan HPI General Chief Complaint: Shortness of Breath/Dyspnea Stated Complaint: CP Time Seen by Provider: 05/05/24 10:23 Mode of Arrival: EMS Source of Information: Patient and EMS Limitations: No Limitations Description of Symptoms (Recalled from ER Triage Doc. by RN): States patient was sitting in her car getting ready to go to a doctors appointment when she became short of breath and anxious. Patient is alert and oriented with audible wheezing. History of Present Illness HPI narrative: This patient is a 78-year-old female with a history of cardiomyopathy, CHF, prior CT status post stenting, type 2 diabetes, hypertension, hyperlipidemia presenting to the emergency department for evaluation of concern for shortness of breath. Patient states that she has been sick for over a week and a half. She states she was evaluated urgent treatment center and prescribed steroids and antibiotics for bronchitis, but she is felt worse since then. She also notes leg swelling, left greater than right. Patient stated that she was going to the doctor's appointment today, when she acutely became more short of breath and anxious and felt like she could not even walk into the office because she was so short of breath. Given this, EMS was called. EMS noted the patient was stable en route with wheezing noted throughout. She did receive a DuoNeb prior to arrival with some improvement. She denies any fevers, chest pain, abdominal pain, or other concerns. She notes she is coughing up yellow sputum. Related Data Home Medications ?Medication ?Instructions ?Recorded ?Confirmed citalopram 40 mg tablet 40 mg PO DAILY 07/04/23 05/05/24 ergocalciferol (vitamin D2) 1,250 1,250 mcg PO WEEKLY 07/04/23 05/05/24 mcg (50,000 unit) capsule (Vitamin D2) glipizide 10 mg tablet, extended 10 mg PO BID 07/04/23 05/05/24 release 24 hr semaglutide 0.25 mg or 0.5 mg (2 0.5 mg SQ WEEKLY 07/04/23 05/05/24 mg/3 mL) subcutaneous pen injector (Ozempic) Previous Rx's ?Medication ?Instructions ?Recorded aspirin 81 mg tablet,delayed 81 mg PO DAILY #90 tabs 08/20/23 release atorvastatin 80 mg tablet 80 mg PO HS #90 tabs 08/20/23 clopidogrel 75 mg tablet 75 mg PO DAILY #90 tabs 08/20/23 furosemide 40 mg tablet (Lasix) 40 mg PO DAILY #90 tabs 08/20/23 lisinopril 20 0.5 tab PO DAILY #90 tabs 08/20/23 mg-hydrochlorothiazide 12.5 mg tablet metoprolol succinate 25 mg 25 mg PO DAILY #90 tabs 08/20/23 tablet,extended release 24 hr azithromycin 250 mg tablet 250 mg PO UD DOSE PK #6 tabs 04/26/24 (Zithromax) benzonatate 100 mg capsule 100 mg PO TIDP PRN Cough #30 caps 04/26/24 prednisone 20 mg tablet 20 mg PO BID 3 days #6 tabs 04/26/24 albuterol sulfate 90 mcg/actuation 1 inh inhalation Q4H PRN shortness 05/05/24 aerosol inhaler of breath or wheezing #8.5 grams doxycycline hyclate 100 mg tablet 100 mg PO BID 10 days #20 tabs 05/05/24 furosemide 40 mg tablet (Lasix) 40 mg PO DAILY 7 days #7 tabs 05/05/24 ondansetron 4 mg disintegrating 4 mg PO Q8H PRN nausea and 05/05/24 tablet vomiting 4 days #12 tabs prednisone 20 mg tablet 40 mg (2 x 20 mg) PO DAILY 4 days 05/05/24 #8 tabs Allergies Allergy/AdvReac Type Severity Reaction Status Date / Time Penicillins Allergy Intermediate I-ITCHING, Verified 10/08/24 13:16 RASH, SWELLING PFSH PFSH Disclaimer: The information contained in this section may have been updated after the patient was seen, as this information can be updated by other users. Medical History Right radial nerve palsy Heart attack HFrEF (heart failure with reduced ejection fraction) Sinus headache History of gastroesophageal reflux (GERD) Pneumonia Bronchitis Arthritis Diabetes mellitus, type 2 History of cataract Hyperlipidemia Hypertension Edema Surgical History Hx of cataract surgery H/O left wrist surgery History of ankle surgery Hx of laparoscopic gastric banding H/O total hysterectomy History of hip replacement Family History Brother Hx of heart surgery Abdominal aortic aneurysm Heart disease Mother Dementia Heart disease Father Prostate cancer Sister Breast cancer Cancer Family/Other Heart attack Social History Smoking Status: Never smoker years smoked: 15 smoking status stop date: 1999 second hand exposure: No alcohol intake: never current occupational status: retired Travel in the last 8 weeks: None household members: spouse housing: house caffeine: Yes Have you lived/traveled outside US in past 30 days?: No Contact w/someone who lives/traveled outside US past 30 days?: No Exposure to someone with infectious disease in past 14 days?: No Do you have a fever (greater than 100.4 F or 38 C)?: No Have you tested positive for COVID-19: No Exposed to someone with COVID-19 in past 14 days?: No Do you have a sore throat?: No Do you have a cough?: No Do you have any weakness?: No Do you have any diarrhea?: No Are you experiencing any unusual bleeding?: No Do you have any muscle aches/pain?: No Do you have any abdominal pain?: No Are you experiencing loss of taste or smell?: No Other Medical History Have you received the Flu Vaccine for this season: No Have you received the Pneumonia Vaccine: No ROS Obtained: Yes All systems reviewed & no additional complaints except as documented Physical Exam General General appearance: alert and in no apparent distress Head Head exam: atraumatic and normocephalic Eye Eye exam: Present normal appearance, PERRL and EOMI ENT ENT exam: Present normal exam, normal oropharynx, mucous membranes moist and normal external ear exam Neck Neck exam: Present normal inspection, full ROM and trachea midline; Absent tenderness Chest Chest inspection: Present normal inspection and symmetric chest wall rise; Absent tenderness Respiratory Respiratory exam: Present wheezes, accessory muscle use, prolonged expiratory phase and other (Wheezes and rhonchi heard bilaterally.); Absent respiratory distress or stridor Cardiovascular Cardiovascular exam: Present regular rate and normal rhythm Abdominal Exam Abdominal exam: Present soft; Absent distention, tenderness or guarding Extremities Exam Extremities exam: Present full ROM, normal capillary refill and edema (Left greater than right lower extremity); Absent tenderness Back Exam Back exam: Present normal inspection and full ROM; Absent tenderness Neurological Exam Neurological exam: Present alert, oriented X3, CN II-XII intact and normal gait; Absent motor sensory deficit Psychiatric Psychiatric exam: Present normal affect and normal mood Skin Skin exam: Present warm and dry HEART Score HEART Score HEART Score assessment performed?: Yes History (anamnesis): Slightly suspicious ECG: Normal Age: >65 years Risk factors: Atherosclerosis history Troponin: </= normal limit HEART Score: 4 Critical Care Critical Care Time Critical Care Time: No Medical Decision Making Lele Inquiry Pt receiving controlled substance: No Vital Signs Vital Signs: 05/05/24 10:00 05/05/24 10:33 05/05/24 10:59 Temperature 98.0 F Temperature Source Oral Pulse Rate 114 H Pulse Rate [Radial] 55 L Respiratory Rate 22 30 H 18 Blood Pressure 169/80 H Blood Pressure [Right Arm] 152/58 H Blood Pressure Mean [Right Arm] 89 Blood Pressure Source Blood Pressure Source [Right Arm] Automatic Cuff Blood Pressure Position [Right Arm] Sitting 02 Sat by Pulse Oximetry 90 L 100 Oxygen Delivery Method Room Air 05/05/24 11:00 05/05/24 11:30 05/05/24 14:10 Temperature 98.0 F Temperature Source Oral Pulse Rate 105 H 121 H 105 H Pulse Rate [Radial] Respiratory Rate 21 15 22 Blood Pressure 179/75 H 182/105 H 176/78 H Blood Pressure [Right Arm] Blood Pressure Mean [Right Arm] Blood Pressure Source Automatic Cuff Blood Pressure Source [Right Arm] Blood Pressure Position [Right Arm] 02 Sat by Pulse Oximetry 100 96 Oxygen Delivery Method Room Air Lab Data Labs: Lab Results 05/05/24 10:02: WBC 5.0, RBC 4.38, Hgb 12.4, Hct 38.6, MCV 88.1, MCH 28.3, MCHC 32.1, RDW 13.2, Plt Count 219, MPV 9.9, Neut % (Auto) 55.2, Lymph % (Auto) 23.2, Craven % (Auto) 12.1 H, Eos % (Auto) 7.7, Baso % (Auto) 0.6, Neut # (Auto) 2.8, Lymph # (Auto) 1.2, Craven # (Auto) 0.6, Eos # (Auto) 0.4, Baso # (Auto) 0.0, Sodium 140, Potassium 3.5, Chloride 101, Carbon Dioxide 34 H, Anion Gap 8.5, BUN 11, Creatinine 0.60, Estimated Creat Clear 69, Estimated GFR 97, Est GFR ( Amer) 118, Glucose 219 H, Calcium 8.5, Total Bilirubin 0.6, AST 28, ALT 20, Alkaline Phosphatase 95, Troponin I < 0.01, C-Reactive Protein 14.8 H, N T-Pro-B Natriuret Pep 1420 H, Total Protein 6.0 L, Albumin 3.7, Globulin 2.3, Albumin/Globulin Ratio 1.6, Procalcitonin 0.066, HCV Ab [place] w/Rflx PCR Qn Negative, HIV Ag/Ab Combo Qual Negative 05/05/24 10:09: VBG pH 7.34, VBG pCO2 56.1 H, VBG pO2 33.5, VBG HCO3 29.3, VBG Total CO2 31.0 H, VBG O2 Saturation 63.4, VBG Base Excess 3.5 H, VBG Lactic Acid 1.6 05/05/24 11:20: SARS-CoV-2 (PCR) Not detected, Influenza A Untype (PCR) Not detected, Influenza Type B (PCR) Not detected 05/05/24 10:02 05/05/24 10:02 Response Orders (Tests/Meds): ED MEDICATIONS Discontinued Medications Generic Name Dose Route Start Last Admin Trade Name Freq PRN Reason Stop Dose Admin Albuterol/Ipratropium 3 ml 05/05/24 10:41 05/05/24 10:48 Ipratropium/Albuterol 3 Ml Neb IH 05/05/24 10:42 3 ml ONCE ONE Administration Doxycycline Hyclate 100 mg 05/05/24 12:16 05/05/24 12:27 Doxycycline Hycl 100 Mg Tablet PO 05/05/24 12:17 100 mg ONCE ONE Administration Furosemide 40 mg 05/05/24 12:16 05/05/24 12:27 Furosemide 40mg/4ml Vial IV 05/05/24 12:17 40 mg ONCE ONE Administration Iopamidol 85 ml 05/05/24 11:13 Iopamidol-370 (76%);100ml Bottle IV 05/05/24 11:14 ONCE ONE Iopamidol 80 ml 05/05/24 11:18 05/05/24 11:19 Iopamidol-370 (76%);100ml Bottle IV 05/05/24 11:19 Not Given ONCE ONE Ondansetron HCl 4 mg 05/05/24 12:55 05/05/24 12:59 Ondansetron 4mg/2ml Vial IV 05/05/24 12:56 4 mg ONCE ONE Administration Sodium Chloride 3 ml 05/05/24 10:39 05/05/24 10:55 Sodium Chloride 3% 15ml [facility] 06/04/24 10:38 3 ml ONCE PRN Administration INDUCE SPUTUM COLLECTION Sodium Chloride 50 ml 05/05/24 11:13 0.9 % Sodium Chloride 50 Ml Vial IV 05/05/24 11:14 ONCE ONE Sodium Chloride 10 ml 05/05/24 11:13 Sodium Chloride 0.9% 10ml Syr (Rad Only) IV 05/05/24 11:14 ONCE ONE Sodium Chloride 50 ml 05/05/24 11:18 05/05/24 11:19 0.9 % Sodium Chloride 50 Ml Vial IV 05/05/24 11:19 Not Given ONCE ONE Sodium Chloride 10 ml 05/05/24 11:18 05/05/24 11:19 Sodium Chloride 0.9% 10ml Syr (Rad Only) IV 05/05/24 11:19 Not Given ONCE ONE ORDERS Category Date Time Status CT angio chest PE protocol Stat Cat Scan 05/05/24 10:39 Completed BNP [NT Pro Brain Natriuretic Pep.] Stat Lab 05/05/24 10:02 Completed CBC w/Auto Diff [Complete Blood Count Auto Diff] Stat Lab 05/05/24 10:02 Completed CMP [Comprehensive Metabolic Panel] Stat Lab 05/05/24 10:02 Completed CRP [C-Reactive Protein] Stat Lab 05/05/24 10:02 Completed HIV Combo Stat Lab 05/05/24 10:02 Completed Hepatitis C Ab Qual. W/ RFX Stat Lab 05/05/24 10:02 Completed Procalcitonin Stat Lab 05/05/24 10:02 Completed Rapid PCR Covid and Flu A/B Stat Lab 05/05/24 11:20 Completed Trop I [Troponin I] Stat Lab 05/05/24 10:02 Completed Sputum Culture & Gram Stain Stat Micro 05/05/24 12:00 Results Venous Blood Gas Stat RT 05/05/24 10:09 Completed ECG Data Tracing #1: Attestation: I reviewed this ECG and interpreted as documented below: ECG Narrative: Sinus tachycardia with a ventricular rate of 110 bpm. No acute STEMI. Normal intervals. ECG initial impression date: 05/05/24 ECG initial impression time: 10:13 Tracing #2: Attestation: I reviewed this ECG and interpreted as documented below: ECG Narrative: Sinus tachycardia with ventricular rate 116 bpm. No acute STEMI. Normal intervals. ECG initial impression date: 05/05/24 ECG initial impression time: 13:34 MDM Narrative Medical Decision Narrative: In summary, this patient is a 78-year-old female presenting to the Emergency Department for evaluation of productive cough, wheezing, shortness of breath, leg swelling. Differential diagnoses considered include but are not limited to pneumonia, respiratory failure, COPD, bronchitis, asthma, CHF exacerbation, ACS, bronchiectasis. Ruling out the most morbid conditions drove assessment. It should be noted patient's history includes CHF, hypertension, hyperlipidemia, CAD, diabetes which may or may not be at goal therapy. This complicates all aspects of care by increasing patient's risk for morbidity. I reviewed patient's past medical records and noted [facility] evaluation 04/26/2024 and diagnosis of bronchitis, for which she was prescribed prednisone, Zithromax, benzonatate. On exam, the patient is sitting upright. She has harsh cough, wheezing, rhonchi. She has reassuring vital signs on cardiac telemetry. She does have left greater than right lower extremity edema. Workup included lab evaluation to evaluate for infectious, metabolic, cardiac etiology as well as CTA PE protocol, EKG. EKG is nonischemic. I independently interpreted stat chest x- ray and noted no obvious large focal consolidation or pneumothorax. Patient was given DuoNeb to assess for further symptomatic improvement. I independently interpreted CT PE prior to the radiologist read and noted no large PE. Please see their read for final interpretation. She does have groundglass opacities concerning for pneumonia versus edema. Her BNP is elevated, so I am concerned for some pulmonary edema. She also has been coughing up thick, yellow sputum, which could be infectious versus pulmonary edema. Given unclear picture, will treat empirically with doxycycline, prednisone, albuterol inhaler for the wheezing and productive cough as well as with increased dose of Lasix for a week given the concerns for volume overload. She is also given dose of IV Lasix here. Aside from BNP being elevated, labs are otherwise reassuring with normal white count, reassuring blood gas, negative troponin. Patient had an episode of emesis after receiving doxycycline. For this, she was given IV Zofran. She was briefly tachycardic after the neb, which she states did make her feel better. Tachycardia slightly improved. Ultimately, she is able to ambulate throughout the emergency department with normal O2 saturation and no significant symptoms. Vitals are reassuring on cardiac telemetry at rest. Cardiopulmonary dam is reassuring and she is overall feeling much much better. I feel she is appropriate for discharge with likely multifactorial shortness of breath. She was given prescriptions as above, instructions for close follow-up with primary care, and strict return precautions. She was discharged after all questions were answered.
[2024-05-05] MEDS: IPRATROPIUM/ALBUTEROL 3 ML NEB IH (10:48)
[2024-05-05 10:49] LABS: Basophils % 0.6 % (0.1-2.0); Eosinophils # 0.4 K/mm3 (0.0-0.4); Eosinophils % 7.7 % (0.1-12.0); Hematocrit 38.6 % (37.0-47.0); Hemoglobin 12.4 g/dL (12.2-16.2); Lymphocytes # 1.2 K/mm3 (0.7-4.5); Lymphocytes % 23.2 % (10-50); Mean Corpuscular HGB Conc 32.1 g/dL (31.8-35.4); Mean Corpuscular Hemoglobin 28.3 pg (27.0-31.2); Mean Corpuscular Volume 88.1 fl (81-99); Mean Platelet Volume 9.9 fl (7.4-10.4); Monocytes # 0.6 K/mm3 (0.1-1.0); Monocytes % 12.1 % (1.7-9.3); Neutrophils # 2.8 K/mm3 (1.8-7.8); Neutrophils % 55.2 % (37.0-80.0); Platelet Count 219 K/mm3 (142-424); Red Blood Count 4.38 M/mm3 (4.20-5.40); Red Cell Distribution Width 13.2 % (11.5-17.5)
[2024-05-05 10:53] LABS: Albumin Level 3.7 g/dl (3.5-5.0); Chloride 101 mmol/L (98-107); Potassium 3.5 mmoL/L (3.5-5.1); Sodium 140 mmol/L (136-145)
[2024-05-05] MEDS: SODIUM CHLORIDE 3% 15ML NEB 3 ML IH (10:55)
[2024-05-05 10:56] LABS: Alanine Aminotransferase 20 U/L (12-78); Albumin/Globulin Ratio 1.6 (1.1-1.8); Alkaline Phosphatase 95 U/L (38-126); Anion Gap 8.5 mEq/L (5-15); Aspartate Amino Transferase 28 U/L (14-36); Bilirubin,Total 0.6 mg/dl (0.2-1.3); Blood Urea Nitrogen 11 mg/dl (7-17); Calcium 8.5 mg/dl (8.4-10.2); Carbon Dioxide 34 mmol/L (22.0-30.0); Creatinine Clearance Estimated 69 mL/min (50-200); Estimated Glomerular Filt Rate 97 ml/min (>60); GFR (African American) 118 ML/MIN (>60); Globulin 2.3 g/dL (1.3-3.2); Glucose 219 mg/dl (74-100)
[2024-05-05 10:59] VITALS: RESP 18
[2024-05-05 11:00] VITALS: BP 179/75; PULSE 105; RESP 21; O2SAT 100
[2024-05-05 11:04] LABS: C-Reactive Protein 14.8 mg/L (0-4)
[2024-05-05 11:05] LABS: NT Pro Brain Natriuretic Pep. 1420 pg/mL (0-450)
[2024-05-05 11:11] LABS: Troponin I < 0.01 ng/ml (0.00-0.034)
[2024-05-05 11:17] LABS: HIV Combo NEGATIVE (Negative)
[2024-05-05 11:24] LABS: Hepatitis C Ab Qual. W/ RFX NEGATIVE (Negative)
[2024-05-05 11:25] LABS: Coronavirus 19, PCR Not Detected (NotDetected); Influenza A, PCR Not Detected (NotDetected); Influenza B, PCR Not Detected (NotDetected)
[2024-05-05 11:30] VITALS: BP 182/105; PULSE 121; RESP 15; O2SAT 96
--- NOTE | 2024-05-05 11:45 | PC.NURSE ---
ROUNDED ON THE PT. THE PT VOICES THAT SHE DOES NOT NEED ANYTHING AT THIS TIME. CALL LIGHT IS WITHIN REACH OF THE PT.
[2024-05-05 11:48] LABS: Procalcitonin 0.066 ng/mL (0.0-2.0)
--- NOTE | 2024-05-05 11:57 | PC.NURSE ---
Hernandez gave patient a blanket.
[2024-05-05] MEDS: FUROSEMIDE 40MG/4ML VIAL 40 MG IV (12:27)
[2024-05-05] MEDS: DOXYCYCLINE HYCL 100 MG TABLET PO (12:27)
[2024-05-05] MEDS: ONDANSETRON 4MG/2ML VIAL 4 MG IV (12:59)
--- NOTE | 2024-05-05 13:02 | PC.NURSE ---
FSBS IS 201 AT THIS TIME.
--- NOTE | 2024-05-05 13:33 | ECG_ITS ---
APPROVED REPORT Exam: Resting ECG HR:116 bpm ECG Measurements Heart Rate 116 AXES VA 128 P 74 QRSd 76 QRS 22 QT 429 T 73 QTc 498 Conclusion SINUS TACHYCARDIA NONSPECIFIC T-WAVE ABNORMALITY ABNORMAL RHYTHM ECG Electronically signed by : KIM DUMONT, 05/10/2024 07:45:49
[2024-05-05 14:10] VITALS: BP 176/78; PULSE 105; RESP 22; TEMP 36.7; O2SAT 96
== END 2024-05-05 14:12 | disposition home or self-care (01) ==
PROVIDERS: Emergency Provider Emergency Medicine; PCP Internal Medicine Adolescent Medicine
DX: I50.9 Heart failure, unspecified (principal); J18.9 Pneumonia, unspecified organism; R06.02 Shortness of breath; R06.2 Wheezing; R07.9 Chest pain, unspecified; R22.43 Localized swelling, mass and lump, lower limb, bilateral; R05.8 Other specified cough
CPT/HCPCS: 71275; 80053; 82803; 83880; 84145; 84484; 85025; 86140; 86803; 87070; 87077; 87205; 87389; 87636; 93005; 96374; 96375; 99285; J1940; J2405; J7620

== ENCOUNTER 2024-09-08 15:06 | Outpatient (CLI) | payer MEDICARE, SELFPAY ==
--- OUTSIDE RECORDS SUMMARY | 2024-09-08 15:10 | XMS_ITS | Encounter Summary ---
Author Organization [email or web address] Address [address] [place] [address] Care Team Providers Care President Educational Institution Name Role Phone Unavailable Primary Care Provider Unavailabl e Encounter Details Date Type Department Care Team (Late st Contact Info) Description 05/13/2019 Transcribed Document [facility] [place] Family Medicine [facility] [place] [address] ProviderLexi MD [facility] [place] [address] Social History Tobacco Use Types Packs/Day Years Used Date Smoking Tobacco: Never Assessed Comments Unknown Sex and Gender Information Value Date Recorded Sex Assigned at Female 09/14/2021 4:50 PM CDT Legal Sex Female 6:54 PM CDT Gender Identity Female 09/14/2021 4:50 PM CDT Sexual Orientation Not on file documented as of this encounter Miscellaneous Notes * Cerner Conversion Note - Historical ProviderMD - 05/13/2019 7:00 PM ROLL UP HELPER Pain Assessment Entered On: 05/14/2019 1:34 EST Performed On: 05/13/2019 23:08 EST by BORIS OVALLE, Glueline Worker-Nursing Intervention Information: acetaminophen Performed by BORIS OVALLE, Glueline Worker-Nursing on 05/13/2019 22:08:00 EST acetaminophen,1000mg Oral Pain Assessment Pain Assessment : Follow-up assessment Pain Scale Goal : 4 Pain Scale Used : FACES Pain Intervention, Drug : Medicated Pain Improved by Intervention : Yes BORIS OVALLE, Glueline Worker-Nursing - 05/14/2019 1:33 EST Pain Scale Intensity : 3 BORIS OVALLE, Glueline Worker-Nursing - 05/14/2019 1:33 EST Image 4 - Images currently included in the form version of this document have not been included in the text rendition version of the form. Electronically signed by Interface, Sjh Conversion Eco Industrial Development Consultant Cerner at 07/02/2022 5:01 PM CDT documented in this encounter Plan of Treatment Not on file documented as of this encounter Visit Diagnoses Not on filedocumented in this encounter
--- OUTSIDE RECORDS SUMMARY | 2024-09-08 15:10 | XMS_ITS | Encounter Summary ---
Author Organization [employer] Address [address] [place] [address] Care Team Providers Care Rn Community Health Name Role Phone Unavailable Primary Care Provider Unavailabl e Encounter Details Date Type Department Care Team (Late st Contact Info) Description 05/15/2019 Transcribed Document [facility] Family Medicine [facility] [place] [address] ProviderLexi MD [address] [place] [address] Social History Tobacco Use Types Packs/Day Years Used Date Smoking Tobacco: Never Assessed Comments Unknown Sex and Gender Information Value Date Recorded Sex Assigned at Female 09/14/2021 4:50 PM CDT Legal Sex Female 6:54 PM CDT Gender Identity Female 09/14/2021 4:50 PM CDT Sexual Orientation Not on file documented as of this encounter Miscellaneous Notes * Cerner Conversion Note - Historical Provider, - 05/15/2019 2:35 PM SOFTWARE TEST TECHNICIAN Final Discharge Planning Entered On: 05/15/2019 14:36 EST Performed On: 05/15/2019 14:35 EST by SANDRA DEL ANGEL, Care Management-Remediation Project Engineer Final Discharge Planning Discharge Arrangements : Patient Post-Acute Information Patient Name: TAY ARDON Gender: Female : [birth year] Age: 73 Years No Post-Acute Placement(s) Listed No Post-Acute Service(s) Listed No Curaspan Referral(s) Listed Patient Offered Choice/Affiliations Explained : Yes Designation of Choice Signed : Yes Important Medicare Message Reviewed With : Patient Important Medicare Message Reviewed D/T : 05/13/2019 11:48 EST Discharge To Care Management : SNF with Medicare Certification-03 Physician Notified of Patient Discharge Comment : Patient is accepted to [facility] on Saturday\her nephew will transport SANDRA DEL ANGEL, Care Management-Remediation Project Engineer - 05/15/2019 14:35 EST Final Narrative Note Historical Narrative Note : anticipate d/c to [facility] on Saturday by family SANDRA DEL ANGEL, Care Management-Remediation Project Engineer - 05/13/19 12:01:59 SANDRA DEL ANGEL Care Management-Remediation Project Engineer - 05/15/2019 14:35 EST Electronically signed by Angelika [facility] Conversion Business Office Technician Cerner at 07/02/2022 4:51 PM CDT documented in this encounter Plan of Treatment Not on file documented as of this encounter Visit Diagnoses Not on filedocumented in this encounter
--- OUTSIDE RECORDS SUMMARY | 2024-09-08 15:10 | XMS_ITS | Encounter Summary ---
Author Organization [employer] Address [address] [place] [address] Care Team Providers Care Crook Operator Name Role Phone Unavailable Primary Care Provider Unavailabl e Encounter Details Date Type Department Care Team (Late st Contact Info) Description 05/13/2019 Transcribed Document [facility] Family Medicine [facility] [place] [address] ProviderLexi MD [facility] [place] [address] Social History Tobacco Use Types [...] Conversion Note - Historical ProviderMD - 05/13/2019 8:42 AM FACILITIES COORDINATOR Nutrition Assessment Entered On: 05/14/2019 13:18 EST Performed On: 05/14/2019 13:18 EST by Shira Molina Clinical Dietitian Nutrition Assessment Nutrition Assessment Reason : Automatic referral Shira Molina Clinical Dietitian - 05/14/2019 13:18 EST Nutrition Recommendations Dietitian Recommendations : 05/14: Received consult for BMI>40. Pt's BMI is 43.3. Admit for right PAULA. Pt is on high fiber diet, intakes average 70% x 2 meals. Pt states good appetite and intakes. Labs reviewed, LBM 05/11, active BS, right hip incision (closed). No nutritional risk identified. Handout regarding diet in discharge summary; rescreen in 7-10 days. Shira Molina Clinical Dietitian - 05/14/2019 15:20 EST Electronically signed by Angelika [facility] Conversion President And Chief Operating Officer Cerner at 07/02/2022 4:55 PM CDT documented in this encounter Plan of Treatment Not on file documented as of this encounter Visit Diagnoses Not on filedocumented in this encounter
--- OUTSIDE RECORDS SUMMARY | 2024-09-08 15:10 | XMS_ITS | Encounter Summary ---
Author Organization [employer] Address [address] [place] [address] Care Team Providers Care Cleaning Custodian Name Role Phone Unavailable Primary Care Provider Unavailabl e Encounter Details Date Type Department Care Team (Late st Contact Info) Description 05/13/2019 Transcribed Document [facility] Family Medicine [facility] [place] [address] ProviderLexi MD [facility] [place] [place] [address] Social History Tobacco Use Types [...] Conversion Note - Historical ProviderMD - 05/13/2019 2:15 PM CHEMICAL PROCESS OPERATOR Spiritual Care Assessment Entered On: 05/13/2019 21:55 EST Performed On: 05/13/2019 14:15 EST by Jose Miguel Downey Chaplain-Non Cert General Information Referred by : Pipe Organ Technician follow-up Ministry Provided to : Patient Church Preference : Jewish Jose Miguel Downey Chaplain-Non Cert - 05/13/2019 21:54 EST Spiritual Assessment Spiritual Assessment Comment/Summary Points : Brief visit with patient as she was not feeling well at this time, no family present. Spirital Assessment Comment/Summary Report : SPIRITUAL ASSESSMENT COMMENT/SUMMARY No qualifying data available. Jose Miguel Downey Chaplain-Non Cert - 05/13/2019 21:54 EST Electronically signed by Angelika [facility] Conversion Wafer Fab Operator Cerner at 07/02/2022 4:53 PM CDT documented in this encounter Plan of Treatment Not on file documented as of this encounter Visit Diagnoses Not on filedocumented in this encounter
--- OUTSIDE RECORDS SUMMARY | 2024-09-08 15:10 | XMS_ITS | Encounter Summary ---
Author Organization [employer] Address [address] [place] [address] Care Team Providers Care Freight Inspector Name Role Phone Unavailable Primary Care Provider Unavailabl e Encounter Details Date Type Department Care Team (Late st Contact Info) Description 05/13/2019 Transcribed Document [facility] [place] Family Medicine [facility] [place] [address] ProviderLexi MD [facility] [place] [address] Social History Tobacco Use Types [...] Conversion Note - Historical ProviderMD - 05/13/2019 2:00 AM SPRAY BLENDER Methods Study Analyst Details Entered On: 05/13/2019 4:26 EST Performed On: 05/13/2019 2:00 EST by BORIS OVALLE, Boot Trimmer-Nursing Order Details Transport Mode Order Detail : Wheelchair Isolation Precautions Order Detail : Standard Precautions Order Detail : N/A IV Order Detail : 1 Oxygen Order Detail : 0 Nurse Collect Order Detail : 0 Lift/Transfer : Minimal Central Line Order Detail : No Room Service : Appropriate Arterial Line : No BORIS OVALLE, Boot Trimmer-Nursing - 05/13/2019 4:25 EST documented in this encounter Plan of Treatment Not on file documented as of this encounter Visit Diagnoses Not on filedocumented in this encounter
--- OUTSIDE RECORDS SUMMARY | 2024-09-08 15:10 | XMS_ITS | Encounter Summary ---
Author Organization [employer] Address [address] [place], [place] [address] Care Team Providers Care Brickmason Supervisor Name Role Phone Unavailable Primary Care Provider Unavailabl e Encounter Details Date Type Department Care Team (Late st Contact Info) Description 05/15/2019 Transcribed Document [facility] [place] [facility] [place] [address] ProviderLexi MD [facility] [place] [address] Social History Tobacco Use Types [...] Cerner Conversion Note - Historical ProviderMD - 05/15/2019 11:06 AM METAL OR WOOD BLOCKER Stroke/Warfarin Instructions Entered On: 05/15/2019 11:06 EST Performed On: 05/15/2019 11:06 EST by Rosie Warner RN Stroke/Warfarin Instructions Stroke/TIA Discharge Ins : N/A Warfarin Discharge Ins : N/A Rosie Warner RN - 05/15/2019 11:06 EST documented in this encounter Plan of Treatment Not on file documented as of this encounter Visit Diagnoses Not on filedocumented in this encounter
--- OUTSIDE RECORDS SUMMARY | 2024-09-08 15:10 | XMS_ITS | Encounter Summary ---
Author Organization [employer] Address [address] [place] [address] Care Team Providers Care Lift Electrician Name Role Phone Unavailable Primary Care Provider Unavailabl e Encounter Details Date Type Department Care Team (Late st Contact Info) Description 05/15/2019 Transcribed Document [facility] [place] Family Medicine [facility] [place] [address] ProviderLexi MD [facility] [place] [address] Social History Tobacco Use Types [...] Conversion Note - Historical ProviderMD - 05/15/2019 2:00 AM MILLER KILN DRIED SALT Polystyrene Molding Machine Tender Details Entered On: 05/15/2019 5:23 EST Performed On: 05/15/2019 2:00 EST by BORIS OVALLE, Hardening Machine Operator-Nursing Order Details Transport Mode Order Detail : Wheelchair Isolation Precautions Order Detail : Standard Precautions Order Detail : N/A IV Order Detail : 1 Oxygen Order Detail : 1 Nurse Collect Order Detail : 0 Lift/Transfer : Minimal Central Line Order Detail : No Room Service : Appropriate Arterial Line : No BORIS OVALLE, Hardening Machine Operator-Nursing - 05/15/2019 5:22 EST documented in this encounter Plan of Treatment Not on file documented as of this encounter Visit Diagnoses Not on filedocumented in this encounter
--- OUTSIDE RECORDS SUMMARY | 2024-09-08 15:10 | XMS_ITS | Encounter Summary ---
Author Organization [employer] Address [address] [place] [address] Care Team Providers Care Roller Man Name Role Phone Unavailable Primary Care Provider Unavailabl e Encounter Details Date Type Department Care Team (Late st Contact Info) Description 05/13/2019 Transcribed Document [facility] [place] Family Medicine [address] [place] [address] ProviderLexi MD [address] [place] [address] Social History Tobacco Use Types [...] Conversion Note - Historical ProviderMD - 05/13/2019 5:00 AM RAIL ASSEMBLER Chart Check - Review Order Profile Entered On: 05/13/2019 4:27 EST Performed On: 05/13/2019 5:00 EST by BORIS OVALLE, Meat Selector-Nursing Chart Check Powerplans Initiated/Discontinued as Appropriate : Yes All Active Orders Reviewed : Yes BORIS OVALLE, Meat Selector-Nursing - 05/13/2019 4:27 EST Electronically signed by Angelika [facility] Conversion Logging Rafter Laborer Cerner at 07/02/2022 4:58 PM CDT documented in this encounter Plan of Treatment Not on file documented as of this encounter Visit Diagnoses Not on filedocumented in this encounter
--- OUTSIDE RECORDS SUMMARY | 2024-09-08 15:10 | XMS_ITS | Encounter Summary ---
Author Organization [employer] Address [address] [place] [address] Care Team Providers Care Help Desk Operator Name Role Phone Unavailable Primary Care Provider Unavailabl e Encounter Details Date Type Department Care Team (Late st Contact Info) Description 05/15/[address] [facility] [place] Family Medicine [facility] [place] [address] ProviderLexi MD [address] [place] [address] Social History Tobacco Use Types Packs/Day [...] Conversion Note - Historical ProviderMD - 05/15/2019 8:00 AM ELEVATOR RUNNER Pain Assessment Entered On: 05/15/2019 9:59 EST Performed On: 05/15/2019 7:30 EST by Rosie Warner RN Intervention Information: traMADol Performed by BORIS OVALLE, Gift Shop Manager-Nursing on 05/15/2019 06:30:00 EST traMADol,50mg Oral Pain Assessment Pain Assessment : Follow-up assessment Pain Scale Goal : 4 Pain Scale Used : 0-10 Scale Rosie Warner RN - 05/15/2019 9:59 EST Pain Scale Intensity : 4 Rosie Warner RN - 05/15/2019 9:59 EST Image 4 - Images currently included in the form version of this document have not been included in the text rendition version of the form. documented in this encounter Plan of Treatment Not on file documented as of this encounter Visit Diagnoses Not on filedocumented in this encounter
--- OUTSIDE RECORDS SUMMARY | 2024-09-08 15:10 | XMS_ITS | Encounter Summary ---
Author Organization [employer] Address [address] [place] [address] Care Team Providers Care Representative Government Relations Name Role Phone Unavailable Primary Care Provider Unavailabl e Encounter Details Date Type Department Care Team (Late st Contact Info) Description 05/15/2019 Transcribed Document [facility] [place] Family Medicine [address] [place] [address] ProviderLexi MD [address] [place] [address] Social History Tobacco Use Types [...] Conversion Note - Historical ProviderMD - 05/15/2019 5:00 AM TEAM DRIVER Chart Check - Review Order Profile Entered On: 05/15/2019 5:23 EST Performed On: 05/15/2019 5:00 EST by BORIS OVALLE, Health Records Technology Teacher-Nursing Chart Check Powerplans Initiated/Discontinued as Appropriate : Yes All Active Orders Reviewed : Yes BORIS OVALLE, Health Records Technology Teacher-Nursing - 05/15/2019 5:23 EST Electronically signed by Angelika [facility] Conversion Mutual Fund Accountant Cerner at 07/02/2022 4:51 PM CDT documented in this encounter Plan of Treatment Not on file documented as of this encounter Visit Diagnoses Not on filedocumented in this encounter
--- OUTSIDE RECORDS SUMMARY | 2024-09-08 15:10 | XMS_ITS | Encounter Summary ---
Author Organization [employer] Address [address] [place] [address] Care Team Providers Care Veterans' Counselor Name Role Phone Unavailable Primary Care Provider Unavailabl e Encounter Details Date Type Department Care Team (Late st Contact Info) Description 05/13/2019 Transcribed Document [facility] [place] [facility] [place] [address] ProviderLexi MD [facility] [place] [address] Social History Tobacco Use Types [...] Conversion Note - Historical ProviderMD - 05/13/2019 1:00 AM INTEGRATION SOLUTION ARCHITECT Pain Assessment Entered On: 05/13/2019 4:26 EST Performed On: 05/13/2019 2:28 EST by BORIS OAVLLE, Insulation Nozzleman-Nursing Intervention Information: acetaminophen Performed by BORIS OVALLE, Insulation Nozzleman-Nursing on 05/13/2019 01:28:00 EST acetaminophen,1000mg Oral Pain Assessment Pain Assessment : Follow-up assessment Pain Scale Goal : 4 Pain Scale Used : FACES Pain Intervention, Drug : Medicated Pain Improved by Intervention : Yes BORIS OVALLE, Insulation Nozzleman-Nursing - 05/13/2019 4:26 EST Pain Scale Intensity : 2 BORIS OVALLE, Insulation Nozzleman-Nursing - 05/13/2019 4:26 EST Image 4 - Images currently included in the form version of this document have not been included in the text rendition version of the form. Electronically signed by Interface, Sjh Conversion Certified Histologic Technician Cerner at 07/02/2022 5:11 PM CDT documented in this encounter Plan of Treatment Not on file documented as of this encounter Visit Diagnoses Not on filedocumented in this encounter
--- OUTSIDE RECORDS SUMMARY | 2024-09-08 15:10 | XMS_ITS | Encounter Summary ---
Author Organization [employer] Address [address] [place] [address] Care Team Providers Care Shovel Handle Assembler Name Role Phone Unavailable Primary Care Provider Unavailabl e Encounter Details Date Type Department Care Team (Late st Contact Info) Description 05/13/[address] [facility] [place] Family Medicine [facility] [place] [address] ProviderLexi MD [facility] [place] [address] Social History Tobacco Use Types [...] Conversion Note - Historical ProviderMD - 05/13/2019 8:00 PM OPHTHALMIC SURGEON Pain Assessment Entered On: 05/14/2019 1:34 EST Performed On: 05/13/2019 23:08 EST by BORIS OVALLE, Regional Wildlife Agent-Nursing Intervention Information: traMADol Performed by BORIS OVALLE, Regional Wildlife Agent-Nursing on 05/13/2019 22:08:00 EST traMADol,50mg Oral Pain Assessment Pain Assessment : Follow-up assessment Pain Scale Goal : 4 Pain Scale Used : FACES Pain Intervention, Drug : Medicated Pain Improved by Intervention : Yes BORIS OVALLE, Regional Wildlife Agent-Nursing - 05/14/2019 1:34 EST Pain Scale Intensity : 2 BORIS OVALLE, Regional Wildlife Agent-Nursing - 05/14/2019 1:34 EST Image 4 - Images currently included in the form version of this document have not been included in the text rendition version of the form. documented in this encounter Plan of Treatment Not on file documented as of this encounter Visit Diagnoses Not on filedocumented in this encounter
--- OUTSIDE RECORDS SUMMARY | 2024-09-08 15:10 | XMS_ITS | Encounter Summary ---
Author Organization [employer] Address [address] [place] [address] Care Team Providers Care Vehicle Trimmer Name Role Phone Unavailable Primary Care Provider Unavailabl e Encounter Details Date Type Department Care Team (Late st Contact Info) Description 05/13/2019 Transcribed Document [facility] [place] Family Medicine [facility] [place] [address] ProviderLexi MD [address] [place] [address] Social History Tobacco Use Types Packs/Day [...] Note - Historical ProviderMD - 05/13/2019 2:00 PM CLIENT SERVICE ASSOCIATE Pain Assessment Entered On: 05/13/2019 13:11 EST Performed On: 05/13/2019 14:04 EST by Rach Red RN Intervention Information: traMADol Performed by Rach Red RN on 05/13/2019 13:04:00 EST traMADol,50mg Oral Pain Assessment Pain Assessment : Follow-up assessment Pain Scale Goal : 4 Pain Scale Used : 0-10 Scale Rach Red RN - 05/13/2019 13:10 EST Pain Scale Intensity : 2 Rach Red RN - 05/13/2019 13:10 EST Image 4 - Images currently included in the form version of this document have not been included in the text rendition version of the form. documented in this encounter Plan of Treatment Not on file documented as of this encounter Visit Diagnoses Not on filedocumented in this encounter
--- OUTSIDE RECORDS SUMMARY | 2024-09-08 15:10 | XMS_ITS | Encounter Summary ---
Author Organization [employer] Address [address] [place] [address] Care Team Providers Care Automotive Power Electronics Engineer Name Role Phone Unavailable Primary Care Provider Unavailabl e Encounter Details Date Type Department Care Team (Late st Contact Info) Description 05/15/2019 Transcribed Document [facility] [place] [place] Family Medicine [address] [place] [address] ProviderLexi MD [address] [place], [place] [address] Social History Tobacco Use Types Packs/Day Years [...] Conversion Note - Historical Provider, - 05/15/2019 3:50 PM PUBLIC HEALTH DIRECTOR Valuables and Belongings Entered On: 05/15/2019 15:55 EST Performed On: 05/15/2019 15:50 EST by June Green RN Valuables and Belongings Valuables and Belongings : Clothing, Personal devices, Personal items Clothing : Common streetwear Clothing Disposition : With family Personal Device Disposition : With family Personal Devices : Dentures, upper, Dentures, lower Personal Items : Baca, Cell phone, Credit cards, Purse, Wallet Personal Items Disposition : With family June Green RN - 05/15/2019 15:55 EST documented in this encounter Plan of Treatment Not on file documented as of this encounter Visit Diagnoses Not on filedocumented in this encounter
--- OUTSIDE RECORDS SUMMARY | 2024-09-08 15:10 | XMS_ITS | Encounter Summary ---
Author Organization [employer] Address [address] [place] [address] Care Team Providers Care Robotic Welding Operator Name Role Phone Unavailable Primary Care Provider Unavailabl e Encounter Details Date Type Department Care Team (Late st Contact Info) Description 05/13/2019 Transcribed Document [facility] [place] [facility] [place] [address] ProviderLexi MD [facility] [place] [address] Social History Tobacco Use Types [...] Conversion Note - Historical ProviderMD - 05/13/2019 12:01 PM PASSENGER SERVICE MANAGER Final Discharge Planning Entered On: 05/13/2019 12:01 EST Performed On: 05/13/2019 12:01 EST by SANDRA DEL ANGEL Care Management-[place] Pilot Final Discharge Planning Discharge Arrangements : Patient Post-Acute Information Patient Name: TAY FONSECA Gender: Female : [birth year] Age: 73 Years No Post-Acute Placement(s) Listed No Post-Acute Service(s) Listed No Curaspan Referral(s) Listed Patient Offered Choice/Affiliations Explained : Yes Designation of Choice Signed : Yes Important Medicare Message Reviewed With : Patient Important Medicare Message Reviewed D/T : 05/13/2019 11:48 EST Discharge To Care Management : SNF with Medicare Certification-03 SANDRA DEL ANGEL, Care Management-[place] Pilot - 05/13/2019 12:01 EST Final Narrative Note Final Narrative Note : anticipate d/c to [facility] on Saturday by family SANDRA DEL ANGEL, Hema Management-[place] Pilot - 05/13/2019 12:01 EST documented in this encounter Plan of Treatment Not on file documented as of this encounter Visit Diagnoses Not on filedocumented in this encounter
--- OUTSIDE RECORDS SUMMARY | 2024-09-08 15:10 | XMS_ITS | Encounter Summary ---
Author Organization [employer] Address [address] [place] [address] Care Team Providers Care Laborer Livestock Name Role Phone Unavailable Primary Care Provider Unavailabl e Encounter Details Date Type Department Care Team (Late st Contact Info) Description 05/13/2019 Transcribed Document [facility] [place] Family Medicine [facility] [place] [address] ProviderLexi MD [facility] [place] [address] Social History Tobacco Use Types [...] Conversion Note - Historical ProviderMD - 05/13/2019 7:01 AM SERVICE DEVELOPER Patient: TAY ARDON Age: 73 Years Sex: Female : 1945 Assessment/Plan 1. Rehab/SNF placement: patient is s/p Right ATHA. She is 25lbs weight bearing on the operative leg due to poor bone quality and BMI of 43.3. These factors increase her fall risk in the early part of the recovery process and she would benefit from a short stay at a facility. She also lives alone without any help 2. WB: 25lbs for 2 weeks, use walker to ambulate 3. PT: eval and treat VTE Prophylaxis - Medical Sequential Compression Device Start: 05/12/19 12:53:00 EST, Bilateral, Length: Knee High, Continuous Order (DUTCH, ROSIO) Subjective Patient is POD #1 Right ATHA. pain is well controlled. No further complaints Vital Signs T: 36.4 ??C TMIN: 36.1 ??C TMAX: 36.7 ??C HR: 89(Monitored) RR: 18 BP: 105/53 SpO2: 95% HT: 157.48 cm WT: 107.27 kg BMI: 43.3 Oxygen Settings (Last) Oxygen Therapy Mode: Nasal cannula (05/13/19 05:09:00) Oxygen Flow Rate: 2 Liter/Min (05/13/19 05:09:00) Intake & Output Totals Last 24 Hours (7a-7a) Input Total: 1382.25 mL Output Total: 725 mL Balance: 657.25 mL Physical Exam Dressing clean, dry and intact N/V intact distally Gross motor function for the TA, EHL, gastroc and soleus intact No sign of DVT Medications aspirin, 81 mg= 1 Tab, Oral, BID Benadryl, 25 mg= 1 Tab, Oral, Q4H, PRN citalopram, 40 mg= 2 Tab, Oral, Daily Colace, 100 mg= 1 Cap, Oral, BID Cyklokapron 1,000 mg + syringe 1 Each + Sodium Chloride 0.9% intravenous solution 20 mL diphenhydrAMINE, 12.5 mg= 0.5 Tab, Oral, At Bedtime, PRN Dulcolax Laxative, 10 mg= 1 Supp, Rectal, 1-Time, PRN hydrALAZINE, 10 mg= 0.5 mL, IV Push, Q6H, PRN insulin lispro sliding scale, Scale D:, SubCutaneous, AC and at Bedtime Lantus, 8 Units= 0.08 mL, SubCutaneous, At Bedtime levothyroxine, 50 mcg= 1 Tab, Oral, Daily lisinopril, 20 mg= 1 Tab, Oral, Daily metoclopramide, 5 mg= 1 mL, IV Push, Q4H, PRN multivitamin, 1 Tab, Oral, Daily naloxone, 0.1 mg= 0.25 mL, IV Push, Q5Min, PRN oxyCODONE, 5 mg= 1 Tab, Oral, Q4H, PRN oxyCODONE, 10 mg= 2 Tab, Oral, Q4H, PRN Protonix, 40 mg= 1 Tab, Oral, Daily senna, 8.6 mg= 1 Tab, Oral, At Bedtime, PRN Senokot S, 2 Tab, Oral, At Bedtime simvastatin, 40 mg= 2 Tab, Oral, QPM Sodium Chloride 0.9% intravenous solution 1,000 mL, 1000 mL, IntraVENous traMADol, 50 mg= 1 Tab, Oral, Q6H While Awake Tylenol, 1000 mg= 2 Tab, Oral, Q6HInt Vitamin D2, 72567 Units= 1 Cap, Oral, Saturday Zofran, 4 mg= 2 mL, IV Push, Q8H, PRN Lab Results Test Name Test Result Date/Time Sodium Level 138 mmol/L 05/13/2019 04:12 EST Sodium Level 141 mmol/L 05/12/2019 08:44 EST Potassium Level 5.4 mmol/L (High) 05/13/2019 04:12 EST Potassium Level 3.9 mmol/L 05/12/2019 08:44 EST Chloride Level 102 mmol/L 05/13/2019 04:12 EST Chloride Level 105 mmol/L 05/12/2019 08:44 EST Carbon Dioxide Level 29 mmol/L 05/13/2019 04:12 EST Carbon Dioxide Level 29 mmol/L 05/12/2019 08:44 EST Anion Gap 12 05/13/2019 04:12 EST Anion Gap 11 05/12/2019 08:44 EST Glucose Level 271 mg/dL (High) 05/13/2019 04:12 EST Glucose Level 154 mg/dL (High) 05/12/2019 08:44 EST Blood Urea Nitrogen 24 mg/dL (High) 05/13/2019 04:12 EST Blood Urea Nitrogen 17 mg/dL 05/12/2019 08:44 EST Creatinine Level 1.11 mg/dL (High) 05/13/2019 04:12 EST Creatinine Level 0.74 mg/dL 05/12/2019 08:44 EST eGFR 59 mL/min/1.73m2 (Low) 05/13/2019 04:12 EST eGFR >60 mL/min/1.73m2 05/12/2019 08:44 EST eGFR NonAfrican 48 mL/min/1.73m2 (Low) 05/13/2019 04:12 EST eGFR NonAfrican >60 mL/min/1.73m2 05/12/2019 08:44 EST Bun/Creatinine 21.6 (High) 05/13/2019 04:12 EST Bun/Creatinine 23.0 (High) 05/12/2019 08:44 EST Calcium Level 8.7 mg/dL 05/13/2019 04:12 EST Calcium Level 9.6 mg/dL 05/12/2019 08:44 EST Device Comment 1 Notified Nurse RBV 05/12/2019 11:56 EST Glucose POC2 260 mg/dL (High) 05/13/2019 05:52 EST Glucose POC2 211 mg/dL (High) 05/12/2019 19:38 EST Glucose POC2 244 mg/dL (High) 05/12/2019 16:20 EST Glucose POC2 218 mg/dL (High) 05/12/2019 11:56 EST Glucose POC2 146 mg/dL (High) 05/12/2019 08:04 EST Hgb 10.5 Gram/dL (Low) 05/13/2019 04:12 EST Hgb 11.8 Gram/dL 05/12/2019 12:24 EST Hct 33.6 % (Low) 05/13/2019 04:12 EST Hct 36.3 % 05/12/2019 12:24 EST PT 10.7 Second(s) 05/12/2019 08:44 EST INR 1.0 05/12/2019 08:44 EST ABO/Rh A POS 05/12/2019 08:44 EST ABO/Rh Repeat A POS 05/12/2019 08:47 EST Antibody Screen (Tube) Negative ABSC 05/12/2019 08:44 EST documented in this encounter Plan of Treatment Not on file documented as of this encounter Visit Diagnoses Not on filedocumented in this encounter
--- OUTSIDE RECORDS SUMMARY | 2024-09-08 15:10 | XMS_ITS | Encounter Summary ---
Author Organization [employer] Address [address] [place] [address] Care Team Providers Care Bookkeeping Manager Name Role Phone Unavailable Primary Care Provider Unavailabl e Encounter Details Date Type Department Care Team (Late st Contact Info) Description 05/15/2019 Transcribed Document [facility] Radiology [address] [place] [address] Alba River MD [address] [place] [address] [address] [place] [id number] Social History Tobacco Use Types Packs/Day Years Used Date Smoking Tobacco: Never Assessed Comments Unknown Sex and Gender Information Value Date Recorded Sex Assigned at Female 09/14/2021 4:50 PM CDT Legal Sex Female 6:54 PM CDT Gender Identity Female 09/14/2021 4:50 PM CDT Sexual Orientation Not on file documented as of this encounter Miscellaneous Notes * Cerner Conversion Note - Alba River MD - 05/15/2019 4:37 PM EST DATE OF DISCHARGE: 05/16/2019 PRINCIPAL DIAGNOSES: 1. Right anterior total hip arthroplasty. 2. Diabetes mellitus. 3. Acute kidney injury, prerenal, resolved. 4. Hypertension. 5. Hyperlipidemia. 6. Hypothyroidism. 7. Severe osteoarthritis with degenerative joint disease. PRINCIPAL CONSULTATIONS AND PROCEDURES: Patient underwent right hip replacement by Dr. Sen performed on 05/12/2019. ADMISSION HISTORY AND HOSPITAL COURSE: This is a 73-year-old white female with underlying history of osteoarthritis, which had been gradually progressive. She failed outpatient treatment. So, she underwent a right total hip replacement. She was seen postoperatively by medicine service. She initially had some nausea with intolerant of p.o. intake. The following day, she also had some mild worsening of her renal insufficiency with a creatinine up to 1.1. She was continued with IV fluid hydration. Her blood sugar remained acceptable. The patient's renal function again improved with a creatinine down to 0.7. The patient participated with physical therapy as per directions of Orthopedics. With regard to DVT prophylaxis, she has been on b.i.d. aspirin, and she is tolerating it well. She was also continued on her home statin therapy as well as levothyroxine. Once her renal function stabilized. She has been resumed on her lisinopril, which she is tolerating. Her diuretic currently remains on hold. Orthopedic evaluated the patient and felt that she would benefit from SNF placement because of poor bone quality and a BMI of 43. So, the patient will be going to the [facility] on 05/16/2019 for the same. The patient did also have an episode of constipation, likely exacerbated by underlying narcotics. She has been started on a bowel regimen. DISCHARGE DIET: Would be diabetic. DISCHARGE MEDICATIONS: 1. Glipizide XL 10 mg daily. 2. Lisinopril 10 mg daily. Please note that the patient was on 20/12.5 hydrochlorothiazide but that has not been resumed at the full dose yet at this time. 3. Her Actos 30 mg daily remains on hold. 4. Celexa 40 mg daily. 5. Vitamin D3 50,000 international units daily. 6. Levothyroxine 50 mcg daily. 7. Zocor 40 mg daily. 8. Tylenol 1000 mg t.i.d. for 7 days and then p.r.n. 9. Baby aspirin 81 mg b.i.d. 10. Senna 2 tablets at bedtime. 11. Colace 100 mg b.i.d. 12. Multivitamin 1 tablet daily. 13. Oxycodone 5 mg q.6 hours p.r.n. for pain. 14. Protonix 40 mg daily. 15. Tramadol 50 mg q.6 hours p.r.n. 16. Neurontin 300 mg q.h.s. DISCHARGE ACTIVITY: Please see the attached instructions by Dr. Sen with regard to discharge activity. Currently, the patient has been advised to use a walker for the first 2 weeks postoperatively and no more than 25 pounds weightbearing for the first 2 weeks. Please see the attached instructions with regard to wound care. The patient has been advised that aspirin b.i.d. will be her DVT prophylaxis for the next 45 days. DISCHARGE FOLLOWUP: 1. With [facility] on 06/23/2019 at 10 a.m. 2. Follow up with the PCP post discharge from the rehab facility. 3. Patient will need to have fingerstick blood sugar monitoring on a before meals and at bedtime regimen. Transferring entity towards the discharge dispositioning including review of the above discussion with the patient care and coordination with case management totaled cumulatively to 35 minutes. /[id number] Alba River MD VLS/AQ / VLS / MODL /[id number] documented in this encounter Plan of Treatment Not on file documented as of this encounter Visit Diagnoses Not on filedocumented in this encounter
--- OUTSIDE RECORDS SUMMARY | 2024-09-08 15:10 | XMS_ITS | Encounter Summary ---
Author Organization [employer] Address [address] [place] [address] Care Team Providers Care Entry Level Automotive Technician Name Role Phone Unavailable Primary Care Provider Unavailabl e Encounter Details Date Type Department Care Team (Late st Contact Info) Description 05/15/2019 Transcribed Document [facility] [place] [facility] [place] [address] ProviderLexi MD [facility] [place] [address] Social History Tobacco Use Types [...] Conversion Note - Historical ProviderMD - 05/15/2019 3:50 PM AADC PLANS STAFF OFFICER Cable Television Line Technician Details Entered On: 05/15/2019 15:55 EST Performed On: 05/15/2019 15:50 EST by June Green RN Order Details Transport Mode Order Detail : Wheelchair Isolation Precautions Order Detail : Standard Precautions Order Detail : N/A IV Order Detail : 1 Oxygen Order Detail : 1 Nurse Collect Order Detail : 0 Lift/Transfer : Minimal Central Line Order Detail : No Room Service : Appropriate Arterial Line : No June Green RN - 05/15/2019 15:55 EST documented in this encounter Plan of Treatment Not on file documented as of this encounter Visit Diagnoses Not on filedocumented in this encounter
--- OUTSIDE RECORDS SUMMARY | 2024-09-08 15:11 | XMS_ITS | Encounter Summary ---
Author Organization [employer] Address [address] [place] [address] Care Team Providers Care Php Magento Developer Name Role Phone Unavailable Primary Care Provider Unavailabl e Encounter Details Date Type Department Care Team (Late st Contact Info) Description 05/13/2019 Transcribed Document [facility] [address] [place] [address] Alba River MD [address] [place], [place] [id number] Social History Tobacco Use Types Packs/Day Years [...] Conversion Note - Alba River MD - 05/13/2019 11:00 AM EST Patient: TAY FONSECA Age: 73 Years Sex: Female : 1945 Subjective Patient reports no chest pain Tolerated her diet Cranberry a little weak this am No nausea No headache Vital Signs T: 36.3 ??C TMIN: 36.3 ??C TMAX: 36.7 ??C HR: 104(Monitored) RR: 18 BP: 113/80 SpO2: 91% Oxygen Settings (Last) Oxygen Therapy Mode: Room air (05/13/19 10:59:00) Oxygen Flow Rate: 2 Liter/Min (05/13/19 05:09:00) Intake & Output Totals Last 24 Hours (7a-7a) Input Total: 1382.25 mL Output Total: 725 mL Balance: 657.25 mL Physical Exam General: Alert and oriented, well nourished, no acute distress. Eye: PERRL, EOMI, normal conjunctiva HENT: Normocephalic, Neck: Supple, non-tender, Lungs: Clear to auscultation , non-labored respiration Heart: Normal rate, regular rhythm, no edema Abdomen: Soft, non-tender, non-distended, normal bowel sounds, Musculoskeletal: no swelling noted. Skin: Skin is warm, dry and pink, no rashes or lesions Psychiatric: Cooperative, appropriate mood and affect Neurologic: Awake, alert, and oriented Assessment/Plan Diabetes mellitus type 2 -hold po meds. -continue with insulin coverage. Acute kidney injury Likely prerenal Continue to hold diuretics Receiving gentle hydration and hold her RADHA today Hypertension -Hold lisnopril today Hyperlipidemia -continue home statin therapy Hypothyroidism -On levothyroxine Arthritis with severe DJD Had right hip replacement on 05/12 Further as per ortho direction and recommending rehab for this patient DVT prophylaxis on bid aspirin as per ortho recommendation Disposition:Follow BMP in am Gentle hydration today Holding diuretics. Seen on 05/13/19 Discussed with patient and nursing and time spent with above 25 minutes. VTE Prophylaxis - Medical Sequential Compression Device Start: 05/12/19 12:53:00 EST, Bilateral, Length: Knee High, Continuous Order (ROSIO JUDD) Medications aspirin, 81 mg= 1 Tab, Oral, [...] levothyroxine, 50 mcg= 1 Tab, Oral, Daily metoclopramide, 5 mg= [...] mg= 2 Tab, Oral, Q6HInt Vitamin D2, 52396 Units= 1 Cap, Oral, Saturday Zofran, 4 mg= 2 mL, IV Push, Q8H, PRN Lab Results Test Name Test Result Date/Time Sodium Level 138 mmol/L 05/13/2019 04:12 EST Potassium Level 5.4 mmol/L (High) 05/13/2019 04:12 EST Chloride Level 102 mmol/L 05/13/2019 04:12 EST Carbon Dioxide Level 29 mmol/L 05/13/2019 04:12 EST Anion Gap 12 05/13/2019 04:12 EST Glucose Level 271 mg/dL (High) 05/13/2019 04:12 EST Blood Urea Nitrogen 24 mg/dL (High) 05/13/2019 04:12 EST Creatinine Level 1.11 mg/dL (High) 05/13/2019 04:12 EST eGFR 59 mL/min/1.73m2 (Low) 05/13/2019 04:12 EST eGFR NonAfrican 48 mL/min/1.73m2 (Low) 05/13/2019 04:12 EST Bun/Creatinine 21.6 (High) 05/13/2019 04:12 EST Calcium Level 8.7 mg/dL 05/13/2019 04:12 EST Glucose POC2 160 mg/dL (High) 05/13/2019 10:54 EST Glucose POC2 260 mg/dL (High) 05/13/2019 05:52 EST Glucose POC2 211 mg/dL (High) 05/12/2019 19:38 EST Glucose POC2 244 mg/dL (High) 05/12/2019 16:20 EST Hgb 10.5 Gram/dL (Low) 05/13/2019 04:12 EST Hct 33.6 % (Low) 05/13/2019 04:12 EST documented in this encounter Plan of Treatment Not on file documented as of this encounter Visit Diagnoses Not on filedocumented in this encounter
--- OUTSIDE RECORDS SUMMARY | 2024-09-08 15:11 | XMS_ITS ---
Author Organization [facility] Care Team Providers Care Senior Software Manager Name Role Phone Deepa Medellin (Nimisha) Unavailable Unavail able Humberto Camarena Unavailable Unavailable Allergies and adverse reactions Code CodeSystem Substance Reaction Severity StartDate Concern Status 103882917 SNOMED CT Penicillins Moderate 07/08/2023 acti ve Care Team Name Role Address Phone Organization Dates Humberto Camarena PCP [address], [place], [address], [place] (Office): [facility] 07/08/2023 - 07/17/2023 Deepa (Nimisha) [place], [address], [place] (Office): : [facility] 07/08/2023 - 07/17/2023 Goals Section Goals Description Status Target Date Dominga will demonstrate the a ppropriate use of adaptive device(s) to increase ability with her activities of daily living. Active 07/26/2023 Dominga will increase level of mobility and improve in activities of daily through the next review date. Active 07/26/2023 Immunizations Immunization Status Vaccine Details Vaccine Code CodeSystem Date Notes TB 1 Step Mantoux (PPD) completed tuberculin skin test; unspecified formulation lotNumber: [id number] expiry: 06/29/2026 Mfg: Sandfi pasteur Given 0.1 ml Left Forearm intradermally 98 CVX created date: 07/09/2023 consent date: 07/09/2023 administer ed date: 07/09/2023 resident discharged prior to being read. Shingles Vaccination completed zoster vaccine recombinant 187 CVX created date: 07/08/2023 administer ed date: 06/05/2023 1st dose Moderna COVID-19 Vaccine completed SARS-COV-2 (COVID-19) vaccine, mRNA, spike protein, LNP, preservative free, 100 mcg/0.5mL dose or 50 mcg/0.25mL dose 207 CVX created date: 07/08/2023 administer ed date: 12/28/2020 Influenza High Dose completed Influenza, high-dose, split virus, quadrivalent, injectable, preservative free 197 CVX created date: 07/08/2023 administer ed date: 02/26/2023 Medications Section Medication Name Status Code CodeSystem Dose Route Frequency Admin Type Sig Text Start Date End Date Acetaminophen Tablet 500 MG active RXNORM 2 tablet Oral as needed PRN Give 2 tablet by mouth every 6 hours as needed for Elevat ed Temper ature 2.5 degree s above baseli ne T give two tablet s every 6 hours as needed for temp 2.5 degree s above baseli ne 2023 - Pantoprazole Sodium Oral Tablet Delayed Release 40 MG active 760239 RXNORM 1 tablet Oral at bedtime Routine Give 1 tablet by mouth at bedtim e for GERD 2023 - Clopidogrel Bisulfate Oral Tablet 75 MG active 300741 RXNORM 1 tablet Oral at bedtime Routine Give 1 tablet by mouth at bedtim e relate d to PRESEN CE OF BUCKNER RY ANGIOP LASTY IMPLAN T AND GRAFT (Z95.5 ) 2023 - Aspirin 81 Oral Tablet Delayed Release active 1 tablet Oral one time a day Routine Give 1 tablet by mouth one time a day for heart health relate d to ESSENT IAL (PRIMA RY) HYPERT ENSION (I10) 2023 - glipiZIDE Oral Tablet 10 MG active 788534 RXNORM 1 tablet Oral every morning and at bedtime Routine Give 1 tablet by mouth every mornin g and at bedtim e for Diabet es relate d to TYPE 2 DIABET ES MELLIT US WITHOU T COMPLI CATION S (E11.9 ) 2023 - Acetaminophen Tablet 500 MG active RXNORM 2 tablet Oral as needed PRN Give 2 tablet by mouth every 6 hours as needed for Pain Give 2 tablet s every 6 hours as needed for pain 2023 - Atorvastatin Calcium Oral Tablet 80 MG active 697933 RXNORM 1 tablet Oral at bedtime Routine Give 1 tablet by mouth at bedtim e for choles terol relate d to HYPERL IPIDEM IA, 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 ) 2023 - Furosemide Oral Tablet 40 MG active 395570 RXNORM 1 tablet Oral one time a day Routine Give 1 tablet by mouth one time a day for edema/ CHF 2023 - Citalopram Hydrobromide Oral Tablet 40 MG active 326222 RXNORM 1 tablet Oral one time a day Routine Give 1 tablet by mouth one time a day for depres lenoer 2023 - Ergocalcifero l Oral Capsule 1.25 MG (37601 UT) active 3859600 RXNORM 1 capsul e Oral one time a day Routine Give 1 capsul e by mouth one time a day every Mon for supple ment 2023 - Ondansetron HCl Oral Tablet 4 MG active 566315 RXNORM 1 tablet Oral as needed PRN Give 1 tablet by mouth every 4 hours as needed for Nausea /Vomit ing 2023 - Metoprolol Succinate ER Oral Tablet Extended Release 24 Hour 25 MG active 746490 RXNORM 1 tablet Oral at bedtime Routine Give 1 tablet by mouth at bedtim e for HTN relate d to ESSENT IAL (PRIMA RY) HYPERT ENSION (I10) Hold for SBP <90 or HR <50 2023 - Antacid & [place] Oral Suspension 2112-2502-186 MG/30ML active 30 ml Oral as needed PRN Give 30 ml by mouth every 6 hours as needed for indige stion 2023 - Ozempic (0.25 or 0.5 MG/DOSE) Subcutaneous Solution Pen-injector 2 MG/3ML active 1016404 RXNORM 0.25 mg Subcuta neous one time a day Routine Inject 0.25 mg subcut aneous ly one time a day every Sat relate d to TYPE 2 DIABET ES MELLIT US WITHOU T COMPLI CATION S (E11.9 ) 2 more doses of the 0.25mg then increa se to 0.5mg 2023 - Mental Status Section Date Assessment Total Score Description 07/17/2023 CAM 0 No delirium ind icated 07/15/2023 BIMS 15 cognitively int act CAM 0 No delirium ind icated PHQ-9 00 Problems Problem # Description Date of onset Resolved Date Code CodeSystem Concern Status 1 ACUTE RESPIRATORY FAILURE WITH HYPOXIA 07/08/[address] active 2 CHRONIC RESPIRATORY FAILURE, UNSPECIFIED WHETHER WITH HYPOXIA OR HYPERCAPNIA 07/08/[address] active 3 DEPRESSION, UNSPECIFIED 07/08/[address] active 4 ESSENTIAL (PRIMARY) HYPERTENSION 07/08/[address] active 5 FOLLICULAR LYMPHOMA, UNSPECIFIED, UNSPECIFIED SITE 07/08/[address] active 6 GASTRO-ESOPHAGEAL REFLUX DISEASE 07/08/[address] active 7 GASTRO-ESOPHAGEAL REFLUX DISEASE WITHOUT ESOPHAGITIS 07/08/2023 07/11/[address] complete d 8 HEART FAILURE, UNSPECIFIED 07/08/[address] active 9 HYPERLIPIDEMIA, UNSPECIFIED 07/08/[address] active 10 MORBID (SEVERE) OBESITY DUE TO EXCESS CALORIES 07/08/[address] active 11 MUSCLE WEAKNESS (GENERALIZED) 07/08/[address] active 12 NON-ST ELEVATION (NSTEMI) MYOCARDIAL INFARCTION 07/08/[address] active 13 OTHER FORMS OF DYSPNEA 07/08/[address] active 14 POSTPROCEDURAL (ACUTE) (CHRONIC) KIDNEY FAILURE 07/08/[address] active 15 PRESENCE OF CORONARY ANGIOPLASTY IMPLANT AND GRAFT 07/08/[address] active 16 TYPE 2 DIABETES MELLITUS WITHOUT COMPLICATIONS 07/08/[address] active 17 UNSTEADINESS ON FEET 07/08/[address] active Reason for Referral No Reasons for Referral Entered Social History Social History Observation Description Start Date End Date Code Code System Current Smoking Status Tobacco smoking consumption unknown 644800099 SNOMED CT Sex Assigned At Female 1945 06541-7 [facility] Gender Identity Vital Signs Code Code System Vitals Name Values and Units Timing Information 9279-1 [facility] Respiratory Rate Value=20.0 Units=/m in 07/17/2023 8462-4 [facility] Blood Pressure-Diastolic Value=76 Un its=mmHg 07/17/2023 8480-6 [facility] Blood Pressure-Systolic Eymql=560 Un its=mmHg 07/17/2023 8310-5 [facility] Body Temperature Value=97.2 Units= F 07/17/2023 8867-4 [facility] Heart rate Value=88.0 Units=/min 03/2023 28181-9 [facility] O2 % BldC Oximetry Value=90.0 Units= % 07/17/2023 2339-0 [facility] Blood Sugar Ymwlw=585.0 Units=mg/dL 07/17/2023 72501-9 [facility] Pain Level Value=0.0 07/15/2023 8302-2 [facility] Height Value=62.0 Units=Inches 07/08/2023 43767-0 [facility] Weight Utugt=747.0 Units=Lbs
--- OUTSIDE RECORDS SUMMARY | 2024-09-08 15:11 | XMS_ITS | Encounter Summary ---
Author Organization [facility] [employer] [employer] Address [address] [place] [address] Care Team Providers Care Fruit Dryer Name Role Phone Unavailable Primary Care Provider Unavailabl e Encounter Details Date Type Department Care Team (Late st Contact Info) Description 05/14/2019 Transcribed Document [facility] [address] [place] [address] Alba River MD [address] [place], [place] [address] Social History Tobacco Use Types Packs/Day Years [...] Conversion Note - Alba River MD - 05/14/2019 11:38 AM EST PLEASE MODIFY BEFORE SIGNING CLINICAL DOCUMENTATION CLARIFICATION FORM: Dear : __Rell River Date ___05/14/2019 Please exercise your independent, professional judgment in responding to the clarification form. Clinical indicators are provided on the bottom of this form for your review Please check appropriate box(es): BMI > 40 with associated diagnosis of: (check one) [ x ] Morbid (Severe) Obesity [ ] Overweight [ ] Obesity [ ] Other diagnosis [ ] Unable to determine For continuity of documentation, please document condition throughout progress notes and discharge summary. Thank You. To be completed by CDI/Coding staff for physician review: Present Clinical Indicators - Signs / Symptoms / Labs Results and Location in Medical Record [xx ] BMI of: __43.3____ 05/12 H&P: BMI 43.3 Present Risk Factors Results and Location in Medical Record [xx ] DM 05/12 H&P Diabetes 2 [xx ] Hypothyroid 05/12 H&P: Hypothyroid Present Treatments Results and Location in Medical Record [cc] Dietary consult 05/12 Orders: Dietary consult for BMI>40 CDS/ Signature: __Tonja Canela RN CDS Phone #: _[phone] BMI < 18.5 Under weight ? 18.5 - 24.9 Healthy ? 25.0 - 29.9 Slightly Overweight ? 30.0 - 34.9 Obese/Class I ? 35.0 - 39.9 Severely Obese/Class II ? 40.0 and Over Morbidly Obese/Class III Source: [facility] This is a permanent part of the Medical Record Q9 2019 [facility] Updated: documented in this encounter Plan of Treatment Not on file documented as of this encounter Visit Diagnoses Not on filedocumented in this encounter
--- OUTSIDE RECORDS SUMMARY | 2024-09-08 15:11 | XMS_ITS | Encounter Summary ---
Author Organization [facility] Address [address] [place] [address] Care Team Providers Care Gore Cutter Name Role Phone Unavailable Primary Care Provider Unavailabl e Encounter Details Date Type Department Care Team (Late st Contact Info) Description 05/12/2019 Transcribed Document [facility] [place] [address] ProviderLexi MD [address] [place] [address] Social History Tobacco Use Types Packs/Day [...] Cerner Conversion Note - Historical ProviderMD - 05/12/2019 8:09 AM ACID DUMPER Pediatric Growth Entered On: 05/12/2019 8:09 EST Performed On: 05/12/2019 8:09 EST by Lianna Johnson Care Asst-Health Unit Coord Height and Weight, Clinical Dosing Height Source : Stated Height Entry Format : [place] Height, Feet : 5 ft(Converted to: 152 cm, 60 Inch) Height, Inches : 2 Inch(Converted to: 0 ft 2 Inch, 5.08 cm) Clinical Height : 157.48 cm Weight Source : Standing scale Weight Entry Format : [place] Clinical Dosing Weight : 107.27 kg Weight, Pounds : 236 lb Body Surface Area (BSA) : 2.05 m2 Body Mass Index : 43.3 kg/m2 (>HHI) [place] Body Weight : 50 kg Lianna Johnson Care Asst-Health Unit Coord - 05/12/2019 8:09 EST documented in this encounter Plan of Treatment Not on file documented as of this encounter Visit Diagnoses Not on filedocumented in this encounter
--- OUTSIDE RECORDS SUMMARY | 2024-09-08 15:11 | XMS_ITS | Encounter Summary ---
Author Organization [facility] Address [address] [place] [address] Care Team Providers Care Saxophone Teacher Name Role Phone Unavailable Primary Care Provider Unavailabl e Encounter Details Date Type Department Care Team (Late st Contact Info) Description 05/04/2019 Transcribed Document [facility] [place] [address] ProviderLexi MD [facility] [place], [place] [address] Social History Tobacco Use Types Packs/Day Years Used Date Smoking Tobacco: Never Assessed Comments Unknown Sex and Gender Information Value Date Recorded Sex Assigned at Female 09/14/2021 4:50 PM CDT Legal Sex Female 6:54 PM CDT Gender Identity Female 09/14/2021 4:50 PM CDT Sexual Orientation Not on file documented as of this encounter Miscellaneous Notes * Cerner Conversion Note - Historical ProviderMD - 05/04/2019 1:10 PM MACHINE MAINTENANCE MECHANIC Orthopedic Nurse Navigator Entered On: 05/04/2019 13:11 EST Performed On: 05/04/2019 13:10 EST by Alyssia Ashraf Nurse development planner Nurse Navigator Assessment Does Patient Have a Walker? : No Joint Navigator Assessment Note : Patient returned call. Pt is wanting to go to the [facility] bc she lives alone and has stairs. Pt indicates she was supposed to have surgery last September with another , and went to the class at that time. Alyssia Ashraf Nurse RN - 05/04/2019 13:10 EST documented in this encounter Plan of Treatment Not on file documented as of this encounter Visit Diagnoses Not on filedocumented in this encounter
--- OUTSIDE RECORDS SUMMARY | 2024-09-08 15:11 | XMS_ITS | Encounter Summary ---
Author Organization [employer] [facility] Address [address] [place] [address] Care Team Providers Care Sales Counselor Name Role Phone Unavailable Primary Care Provider Unavailabl e Encounter Details Date Type Department Care Team (Late st Contact Info) Description 05/12/2019 Transcribed Document [facility] [place] [facility] [place] [address] ProviderLexi MD [facility] [place] [address] Social History Tobacco Use Types [...] Cerner Conversion Note - Historical Provider, - 05/12/2019 1:18 PM INTERNATIONAL LOGISTICS ANALYST Admission History, Adult Entered On: 05/12/2019 13:21 EST Performed On: 05/12/2019 13:18 EST by Rach Red RN Advance Directive Patient has Advance Directive *Q : No, patient refuses Advance Directive information Rach Red RN - 05/12/2019 13:18 EST Anesthesia/Transfusion History Family History of Anesthesia Reaction : No prior transfusion(s) Blood Transfusion Acceptable to Patient : Yes Transfusion History : Prior anesthesia without reaction Family History of Anesthesia Reaction : None Rach Red RN - 05/12/2019 13:18 EST Anticipated Discharge Needs Discharge To, Anticipated : Rehabilitation unit/facility Rach Red RN - 05/12/2019 13:18 EST Education Topics, Admission Orientation DCP GENERIC CODE Advance Directives : Verbalizes understanding, Returns demonstration Allergy Band Applied : Verbalizes understanding, Returns demonstration Assessment/Vital Signs : Verbalizes understanding, Returns demonstration Bed Control : Verbalizes understanding, Returns demonstration Call Light : Verbalizes understanding, Returns demonstration Confidentiality : Verbalizes understanding, Returns demonstration Diet/Room Service : Verbalizes understanding, Returns demonstration Fall Prevention : Verbalizes understanding, Returns demonstration Hand Hygiene : Verbalizes understanding, Returns demonstration Healthcare Provider Visit : Verbalizes understanding, Returns demonstration ID Band Applied : Verbalizes understanding, Returns demonstration Isolation Precautions : Verbalizes understanding, Returns demonstration Orientation to Room/Bathroom : Verbalizes understanding, Returns demonstration Patient Bill of Rights : Verbalizes understanding, Returns demonstration Patient Rights/Responsibilities : Verbalizes understanding, Returns demonstration Patient Safety : Verbalizes understanding, Returns demonstration Personal Privacy Code : Verbalizes understanding, Returns demonstration Rapid Response Initiated by Patient/Family : Verbalizes understanding, Returns demonstration Rounding : Verbalizes understanding, Returns demonstration Siderails use/risks : Verbalizes understanding, Returns demonstration Skin Precautions : Verbalizes understanding, Returns demonstration Smoking Policy : Verbalizes understanding, Returns demonstration Telemetry Monitoring : Verbalizes understanding, Returns demonstration Television/Phone : Verbalizes understanding, Returns demonstration Visiting Policy : Verbalizes understanding, Returns demonstration Rach Red RN - 05/12/2019 13:18 EST Functional Assessment Living Situation : Home Patient Lives With : Alone Persons Assisting Patient at Home : Sibling(s) Current Daily Living Assistance : None Sensory Deficits : None Mobility Assistance Prior to Admission : Independent CAI Hx Falls Immediate/Within 3 Months : Yes Current Home Treatments : Blood glucose monitoring Home Equipment : Walker Walker : Walker, standard Professional Skilled Services : None Special Services and Community Resources : None Rach Red RN - 05/12/2019 13:18 EST General Info Preferred Name : Dominga Arrived From : Home Mode of Arrival on Unit : Ambulatory Legal Guardian : Sibling Want Family/Rep/Phys Notified of Admit : No Emergency Contact #1 : Roxy Emergency Contact #1 Emergency Contact #1 Relationship : sister Emergency Contact #2 : . Emergency Contact #2 Phone Number : . Emergency Contact #2 Relationship : . Chief Complaint : right hip pain Information Obtained From : Patient Primary Language : Lao Preferred Communication Mode : Verbal Communication Barrier : None Objects to Sharing Info w Family : No Currently Lactating : No Status : N/A Rach Red RN - 05/12/2019 13:18 EST Fall Risk Scales ABCs Fall Injury Risk Identification : Bones, Surgery ABC Fall Injury Risk : Moderate to high injury risk Injury Moderate to High Risk Interventions : Bed alarm on, Chair alarm on, Fall mat, Fall contract/letter per facility policy, High Risk for Fall Injury sign in place per policy, Hip protectors, Patient room close to nurses station, Personal alarm on, Specialty low bed, Supervise toileting as indicated, Toileting schedule, Transport methods appropriate to patient, Visual cues in place, Wrist band (fall risk) on per policy CAI Hx Falls Immediate/Within 3 Months : Yes Cai Secondary Diagnosis : Yes CAI Use of Ambulatory Aid : Crutches/Cane/Walker CAI IV Therapy or IV Access : Yes Cai Gait/Transferring : Weak Cai Mental Status : Oriented to own ability Cai Fall Risk Score : 85 CAI Fall Scale Risk Level : 46 or > High Risk [place] Fall Interventions : Assistive devices within reach, Bed in low position, Call device within reach, Fall prevention handout/education per facility policy, Frequent orientation to call device, Frequent orientation to surroundings, Hourly comfort/safety rounds, Non-slip footwear, Personal items within reach, Reinforced to call for assistance before getting out of bed, Room free of clutter/spills, Upper side-rails up, Wheels locked, Wires/Cords secured Fall Moderate to High Risk Interventions : Bed alarm on, Chair alarm on, Fall contract/letter per facility policy, High Risk for Fall sign in place per policy, Patient room close to nurses station, Supervise toileting as indicated, Personal alarm on, Transport methods appropriate to patient, Toileting schedule, Visual cues in place, Wrist band (fall risk) on Rach Red RN - 05/12/2019 13:18 EST Fall Risk Education Grid Alarms : Returns demonstration, Verbalizes understanding Assistive Equipment Use : Returns demonstration, Verbalizes understanding Bed Height/Stabilization : Returns demonstration, Verbalizes understanding Call light use : Returns demonstration, Verbalizes understanding Door Open : Returns demonstration, Verbalizes understanding Environmental Management : Returns demonstration, Verbalizes understanding Eyeglasses Use : Returns demonstration, Verbalizes understanding Fall Community Resources : Returns demonstration, Verbalizes understanding Fall Contract/Letter : Returns demonstration, Verbalizes understanding Fall Prevention in the Home : Returns demonstration, Verbalizes understanding Fall Prevention Protocol : Returns demonstration, Verbalizes understanding Hearing Aid Use : Returns demonstration, Verbalizes understanding Home Risk Assessment : Returns demonstration, Verbalizes understanding Need Constant Observation : Returns demonstration, Verbalizes understanding Night Light Use : Returns demonstration, Verbalizes understanding Nonskid Footwear Use : Returns demonstration, Verbalizes understanding Notification of Staff When Leaving : Returns demonstration, Verbalizes understanding Orthostatic Hypotension Precautions : Returns demonstration, Verbalizes understanding Personal Article Availability : Returns demonstration, Verbalizes understanding Prevention Responsibility Family : Returns demonstration, Verbalizes understanding Prevention Responsibility Patient : Returns demonstration, Verbalizes understanding Risk Alert Methods : Returns demonstration, Verbalizes understanding Risk Factors : Returns demonstration, Verbalizes understanding Safety Aids : Returns demonstration, Verbalizes understanding Siderails use/risks : Returns demonstration, Verbalizes understanding Special Assistive Devices : Returns demonstration, Verbalizes understanding Staff Responsiveness : Returns demonstration, Verbalizes understanding Symptom Identification & Action Plan *Q : Returns demonstration, Verbalizes understanding Symptom Reporting : Returns demonstration, Verbalizes understanding Toileting Schedule : Returns demonstration, Verbalizes understanding Transfer/Mobility Techniques : Returns demonstration, Verbalizes understanding Urinal/Bedpan Availability : Returns demonstration, Verbalizes understanding Wait for Assistance : Returns demonstration, Verbalizes understanding Wheelchair Safety : Returns demonstration, Verbalizes understanding Rach Red RN - 05/12/2019 13:18 EST Barriers to Learning : None evident Individuals Taught : Patient Readiness to Learn : Cooperative Baseline Knowledge of Topic : Limited Teaching Method : Printed materials Learning Style Preferences Family : Printed materials, Verbal explanation Learning Style Preferences Patient : Printed materials, Verbal explanation Fall Risk Scale Calc Temp : 1 Rach Red RN - 05/12/2019 13:18 EST Health Histories Smoking Status : Former smoker, quit more than 30 days ago Smokeless Tobacco Status : Never Rach Red RN - 05/12/2019 13:18 EST Social History (As Of: 05/12/2019 13:21:53 EST) Tobacco: Former smoker, quit more than 30 days ago Smoking Status. Never Smokeless Tobacco Status. Last Used: 1997. (Last Updated: 04/24/2019 12:06:16 EST by Nuvia Moseley, Rn) Alcohol: Alcohol Use History No. Use in Last 12 Months: No. (Last Updated: 04/24/2019 12:06:22 EST by Nuvia Moseley, Rn) Substance Abuse: Drug Use Hx: No. Use in Last 12 Months: No. (Last Updated: 04/24/2019 12:06:28 EST by Nuvia Moseley, Rn) Height and Weight, Clinical Dosing Height Source : Stated Height Entry Format : [place] Height, Feet : 5 ft(Converted to: 152 cm, 60 Inch) Height, Inches : 2 Inch(Converted to: 0 ft 2 Inch, 5.08 cm) Clinical Height : 157.48 cm Weight Source : Standing scale Weight Entry Format : [place] Clinical Dosing Weight : 107.27 kg Weight, Pounds : 236 lb Body Surface Area (BSA) : 2.05 m2 Body Mass Index : 43.3 kg/m2 (>HHI) [place] Body Weight : 50 kg Rach Red RN - 05/12/2019 13:18 EST Infectious Disease History Physical contact outside [place] in the last 30 days : No Infectious Disease History : Influenza, Measles Isolation Needed : Standard Childhood Vaccinations Up to Date : N/A Tuberculosis Symptoms : None Rach Red RN - 05/12/2019 13:18 EST Tetanus Immunization Status Previous Tetanus Immunizations : No qualifying data available. Tetanus Immunization : Unknown Rach Red RN - 05/12/2019 13:18 EST Influenza Vaccine Asmt, Adult Previous Vaccines from Immunization Schedule : No qualifying data available. Influenza Immunization, Current Season : Yes Influenza Immunization Date : 12/16/2018 EDT Rach Red RN - 05/12/2019 13:18 EST Pneumococcal Vaccine Previous Vaccines from Immunization Schedule : No qualifying data available. Pneumonia Immunization Received : Unknown Pneumococcal Risk Assessment < Age 65 : N/A- Patient 65 years of age or older Pneumococcal Vaccine Contraindications : No contraindications to pneumococcal vaccine Transplant Workup/Recent Transplant : No Order for Pneumococcal Vaccine : Declined Vaccination Rach Red RN - 05/12/2019 13:18 EST Order Details Order Detail : N/A Rach Red RN - 05/12/2019 13:18 EST Nutrition History Feeding Ability : Independent Adaptive Feeding Equipment : None Adaptive Feeding Equipment : Diabetic Eating Poorly Due to Decreased Appetite : No Unplanned Weight Loss in Past 3-6 Months : Yes Unplanned Weight Loss Amount : 2-13 lbs/0.9-5.9 kg Malnutrition Screening Tool Total(mal) : 1 Malnutrition Screening Tool Risk Level : Patient not at risk Rach Red RN - 05/12/2019 13:18 EST [place] Suicide Severity Rating Scale (C-SSRS) CSSRS Past Month Wish to be : No CSSRS Past Month Suicidal Thoughts : No CSSRS Lifetime Suicide Behavior : No Suicide Severity Rating Score : 0 Suicide Severity Rating : No Additional Care Required at this time Rach Red RN - 05/12/2019 13:18 EST Psychosocial History Do You Have a History of the Following? : Anxiety Currently in Unsafe Situation : No Rach Red RN - 05/12/2019 13:18 EST Sleep Apnea Risk Assmt Hx of Obstructive Sleep Apnea Diagnosis : No Snore Loudly : No Tired, Fatigued, or Sleepy During Day : No Observed Stopping Breathing During Sleep : No Have/Are Being Treated for Hypertension : Yes BMI Greater Than 35 kg/m2 : Yes Age over 50 Years Old : Yes Neck Circumference Greater Than 40 cm : Yes Gender Male : No STOP-BANG Sleep Apnea Risk Level Score : 4 Rach Red RN - 05/12/2019 13:18 EST Spiritual/Cultural Needs Significant Loss/Crisis in Past 3 Years : No Any Spiritual/Cultural Needs or Requests : Yes Lutheran Preference : Yazidi Rach Red RN - 05/12/2019 13:18 EST Valuables and Belongings Valuables and Belongings : Clothing, Personal devices, Personal items Clothing : Common streetwear Clothing Disposition : With family Personal Device Disposition : With family Personal Devices : Dentures, upper, Dentures, lower Personal Items : Baca, Cell phone, Credit cards, Purse, Wallet Personal Items Disposition : With family Rach Red RN - 05/12/2019 13:18 EST Electronically signed by Meghan Carney Conversion Supervisor [employer] Cerner at 07/02/2022 5:15 PM CDT documented in this encounter Plan of Treatment Not on file documented as of this encounter Visit Diagnoses Not on filedocumented in this encounter
--- OUTSIDE RECORDS SUMMARY | 2024-09-08 15:11 | XMS_ITS | Encounter Summary ---
Author Organization [employer] [facility] Address [address] [place] [address] Care Team Providers Care Gun Barrel Finisher Name Role Phone Unavailable Primary Care Provider Unavailabl e Encounter Details Date Type Department Care Team (Late st Contact Info) Description 05/14/2019 Transcribed Document [facility] [place] [address] ProviderLexi [place] [address] Social History Tobacco Use Types [...] Cerner Conversion Note - Historical ProviderMD - 05/14/2019 2:00 AM MAINTENANCE MACHINE REPAIRER Residency Director Details Entered On: 05/14/2019 1:34 EST Performed On: 05/14/2019 2:00 EST by BORIS OVALLE, Lubricator Granulator-Nursing Order Details Transport Mode Order Detail : Wheelchair Isolation Precautions Order Detail : Standard Precautions Order Detail : N/A IV Order Detail : 1 Oxygen Order Detail : 0 Nurse Collect Order Detail : 0 Lift/Transfer : Minimal Central Line Order Detail : No Room Service : Appropriate Arterial Line : No BORIS OVALLE, Lubricator Granulator-Nursing - 05/14/2019 1:34 EST documented in this encounter Plan of Treatment Not on file documented as of this encounter Visit Diagnoses Not on filedocumented in this encounter
--- OUTSIDE RECORDS SUMMARY | 2024-09-08 15:11 | XMS_ITS | Encounter Summary ---
Author Organization [employer] [facility] Address [address] [place] [address] Care Team Providers Care Box Worker Name Role Phone Unavailable Primary Care Provider Unavailabl e Encounter Details Date Type Department Care Team (Late st Contact Info) Description 05/12/2019 Transcribed Document [facility] [place] [facility] [address] ProviderLexi MD [address] [place], [place] [address] Social History Tobacco Use Types Packs/Day Years [...] Conversion Note - Historical Provider, - 05/12/2019 9:00 AM LIVESTOCK BROKER Event Note Entered On: 05/12/2019 9:12 EST Performed On: 05/12/2019 9:00 EST by Cecile Wright RN Event Note Event Date/Time : 05/12/2019 9:00 EST Event Location : Other: pre-op Description of Event : Dr. Sen notified of pt having excoriation to right panis area. Dr. Sen states this is okay, to continue prepping pt for surgery at this time. Cecile Wright RN - 05/12/2019 9:11 EST documented in this encounter Plan of Treatment Not on file documented as of this encounter Visit Diagnoses Not on filedocumented in this encounter
--- OUTSIDE RECORDS SUMMARY | 2024-09-08 15:11 | XMS_ITS | Encounter Summary ---
Author Organization [employer] [facility] Address [address] [place] [address] Care Team Providers Care Running Rigger Name Role Phone Unavailable Primary Care Provider Unavailabl e Encounter Details Date Type Department Care Team (Late st Contact Info) Description 05/12/2019 Transcribed Document [facility] [place] [facility] [place] [address] ProviderLexi MD [address] [place] [address] Social History Tobacco Use Types Packs/Day [...] Conversion Note - Historical ProviderMD - 05/12/2019 7:21 AM LANOLIN PLANT OPERATOR Patient: TAY FONSECA Age: 73 Years Sex: Female : 1945 Discharge Plan Ortho Discharge Summary Addendum Discharge: SNF Procedure: Right ATHA Complications: None DVT Prophylaxis: Aspirin 81 mg tabs, 1 BID for 45 days. Script written, on chart WB Status: 25lbs weight bearing for 2 weeks post op. Must use walker to ambulate for first 2 weeks post op. F/U in clinic 6 weeks Additional Instructions: Must walk with walker for 1st 2 weeks post op to decrease risk of post op femur fracture. Discharge Instructions: 1)Elevate the affected knee and the entire lower extremity on 2 or 3 pillows while sleeping at night for the first 6-8 weeks after surgery in order to help combat swelling in the lower extremities. 2) The patient may shower on the 3rd day after surgery but must keep the wound or dressing completely dry until 7 days postoperatively using glad press and seal. 3)The current dressing may be removed on the tenth day after surgery and the incision may remain uncovered if it is completely dry. 4) Call for wound drainage or excessive redness that is present beyond 10 days after surgery. 5) The patient may progress from a walker to crutches to a cane to no support at the discretion of the therapist after 2 weeks. The patient should not progress to the next level until they are walking without a limp at the previous level. 6) Tylenol, Oxycodone (assuming no allergy), Tramadol, and for severe pain Dilaudid will be used for post op pain. 7) Place pillow under operative thigh to keep hip flexed while sleeping. 8) The patient will be on blood thinner after surgery. Each patient's blood thinner may be different pending past medical history. It may be stopped at the discretion of the surgeon if wound problems develop. Bilateral MARIANN hose are to be worn daily for DVT prophylaxis. You may remove these for daily skin inspections, but otherwise these are to be worn at all times. Do not start or stop anticoagulation without discussing with Dr. Sen first. Discharge Medications (8) Active citalopram 40 mg, Oral, Daily furosemide 40 mg, Oral, Daily glipiZIDE 20 mg, Oral, Daily hydroCHLOROthiazide-lisinopril 12.5 mg-20 mg oral tablet 1 Tab, Oral, Daily levothyroxine 50 mcg, Oral, Daily pioglitazone 30 mg, Oral, Daily simvastatin 40 mg, Oral, QPM Vitamin D2 50,000 Int Units, Oral, Weekly Oxycodone 5mg 1-2 tabs every 6 hours PRN pain Dilaudid 2mg Q6hrs PRN (extreme pain only, this is not for management of pain but for rescue only) Tramadol 50mg 1 tab Q 6hrs PRN ECASA 81mg BID x 6 weeks Colace 100mg 1 tab daily Gabapentin 300mg 1 tab QHS Electronically signed by Meghan Carney Conversion Large Animal Husbandry Technician [place] at 07/02/2022 4:53 PM CDT documented in this encounter Plan of Treatment Not on file documented as of this encounter Visit Diagnoses Not on filedocumented in this encounter
--- OUTSIDE RECORDS SUMMARY | 2024-09-08 15:11 | XMS_ITS | Encounter Summary ---
Author Organization [facility] [employer] Address [address] [place] [address] Care Team Providers Care Binder Lockstitch Name Role Phone Unavailable Primary Care Provider Unavailabl e Encounter Details Date Type Department Care Team (Late st Contact Info) Description 05/14/2019 Transcribed Document [facility] [place] Medicine [facility] [place] [address] ProviderLexi MD [address] [place] [address] Social History Tobacco Use Types Packs/Day [...] Conversion Note - Historical ProviderMD - 05/14/2019 7:00 AM RELIABILITY ENGINEER Pain Assessment Entered On: 05/14/2019 11:33 EST Performed On: 05/14/2019 6:46 EST by Rach Red RN Intervention Information: acetaminophen Performed by BORIS OVALLE, Paper Cup Machine Tender-Nursing on 05/14/2019 05:46:00 EST acetaminophen,1000mg Oral Pain Assessment Pain Assessment : Follow-up assessment Pain Scale Goal : 4 Pain Scale Used : 0-10 Scale Rach Red RN - 05/14/2019 11:32 EST Pain Scale Intensity : 2 Rach Red RN - 05/14/2019 11:32 EST Image 4 - Images currently included in the form version of this document have not been included in the text rendition version of the form. documented in this encounter Plan of Treatment Not on file documented as of this encounter Visit Diagnoses Not on filedocumented in this encounter
--- OUTSIDE RECORDS SUMMARY | 2024-09-08 15:11 | XMS_ITS | Encounter Summary ---
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 documented in this encounter Plan of Treatment Not on file documented as of this encounter Visit Diagnoses Not on filedocumented in this encounter
--- OUTSIDE RECORDS SUMMARY | 2024-09-08 15:11 | XMS_ITS | Encounter Summary ---
Author Organization [employer] Address [address] [place] [address] Care Team Providers Care Manufacturing Lab Technician Name Role Phone Unavailable Primary Care Provider Unavailabl e Encounter Details Date Type Department Care Team (Late st Contact Info) Description 05/15/2019 Transcribed Document [facility] [place] [facility] [place] [address] ProviderLexi MD [address] [place] [address] Social History Tobacco Use Types Packs/Day [...] Note - Historical ProviderMD - 05/15/2019 8:00 PM DISPATCH CLERK Pain Assessment Entered On: 05/15/2019 23:08 EST Performed On: 05/15/2019 21:55 EST by Lacey Fernandez RN Intervention Information: traMADol Performed by Lacey Fernandez RN on 05/15/2019 20:55:00 EST traMADol,50mg Oral Pain Assessment Pain Assessment : Follow-up assessment Pain Scale Goal : 4 Pain Scale Used : 0-10 Scale Onset : Gradual Quality : Aching Pain Radiation : No Pain Intervention, Drug : Medicated Pain Improved by Intervention : Yes Lacey Fernandez RN - 05/15/2019 23:08 EST Pain Scale Intensity : 3 Lacey Fernandez RN - 05/15/2019 23:08 EST Image 4 - Images currently included in the form version of this document have not been included in the text rendition version of the form. documented in this encounter Plan of Treatment Not on file documented as of this encounter Visit Diagnoses Not on filedocumented in this encounter
--- OUTSIDE RECORDS SUMMARY | 2024-09-08 15:11 | XMS_ITS | Encounter Summary ---
Author Organization [email or web address] Address [address] [place] [id number] Care Team Providers Care Knitter Operator Name Role Phone Unavailable Primary Care Provider Unavailabl e Encounter Details Date Type Department Care Team (Late st Contact Info) Description 05/12/2019 Transcribed Document [facility] [place] [facility] [place] [address] ProviderLexi MD [address] [place] [id number] Social History Tobacco Use Types Packs/Day [...] Conversion Note - Historical ProviderMD - 05/12/2019 10:29 AM REHAB AIDE KAYE Main OR IntraOp Summary Primary Physician: ROSIO JUDD MD-ORT Finalized Date/Time: 05/15/19 10:45:27 Pt. Name: TAY FONSECA D.O.B./Sex: 1945 Female Med Rec #: [id number] Physician: ROSIO JUDD MD-ORT Financial #: [id number] Pt. Type: I Room/Bed: [facility]/ Admit/Disch: 05/13/19 09:44:00 - Institution: [facility] IntraOp Case Attendance Entry 1 Entry 2 Entry 3 Case Attendee ORSIO JUDD RENFROE, REBECCA, Biery, Jordyn A RN -ORT ROAD CONTRACTOR-ANS Role Performed Surgeon/Proceduralist, ROAD CONTRACTOR/Nurse Import Export Coordinator Health Facilities Surveyor, First First Time In 05/12/19 10:26:00 05/12/19 09:56:00 05/12/19 09:56:00 Time Out 05/12/19 11:25:00 05/12/19 11:51:00 05/12/19 11:31:00 Procedure Hip Total Anterior Hip Total Anterior Hip Total Anterior Approach Approach Approach Other Attendee Superficial Wound Closed By: Last Modified By: Gabriela Pena RN Biery, Jordyn A, Gabriela Salazar RN 05/12/19 11:51:47 05/12/19 11:51:47 05/12/19 11:51:47 Entry 4 Entry 5 Entry 6 Case Attendee Juve Stubbs, Lelo Valenzuela, School Child Care Attendant Role Performed Scrub, First Scrub, Second Assistive Personnel Time In 05/12/19 09:56:00 05/12/19 09:56:00 05/12/19 09:56:00 Time Out 05/12/19 11:51:00 05/12/19 11:27:00 05/12/19 10:24:00 Procedure Hip Total Anterior Hip Total Anterior Hip Total Anterior Approach Approach Approach Other Attendee Superficial Wound Closed By: Last Modified By: Gabriela Pena RN Biery, Jordyn A, RN Biery, Jordyn A, RN 05/12/19 11:51:47 05/12/19 11:51:47 05/12/19 11:51:47 Entry 7 Entry 8 Entry 9 Case Attendee COLTON LINN, QIAN LÓPEZ, PAC OTHER, ATTENDEE Role Performed Mother Repairer, First Physician catering assistant Vendor Time In 05/12/19 09:56:00 05/12/19 10:55:00 05/12/19 09:56:00 Time Out 05/12/19 11:02:00 05/12/19 11:51:00 05/12/19 11:27:00 Procedure Hip Total Anterior Hip Total Anterior Hip Total Anterior Approach Approach Approach Other Attendee HUAN SCHMIDT Superficial Wound Closed By: Last Modified By: Gabriela Pena RN Biery, Jordyn A, Gabriela Salazar RN 05/12/19 11:51:47 05/12/19 11:51:47 05/12/19 11:51:47 Entry 10 Entry 11 Case Attendee DRAKE SALINAS SUSAN, RN Role Performed Payroll Tax Specialist Health Facilities Surveyor, Second Time In 05/12/19 09:56:00 05/12/19 11:31:00 Time Out 05/12/19 11:27:00 05/12/19 11:51:00 Procedure Hip Total Anterior Hip Total Anterior Approach Approach Other Attendee Superficial Wound Closed By: Last Modified By: Gabriela Pena RN Biery, Jordyn A, RN 05/12/19 11:51:47 05/12/19 11:51:47 [facility] IntraOp Case Attendance Audit 05/12/19 11:51:47 Pen Rider: JUAN C Modifier: JUAN C 1 <*> Procedure Hip Total Anterior Approach 2 <+> Time Out 2 <*> Procedure Hip Total Anterior Approach 3 <*> Procedure Hip Total Anterior Approach 4 <+> Time Out 4 <*> Procedure Hip Total Anterior Approach 5 <*> Procedure Hip Total Anterior Approach 6 <*> Procedure Hip Total Anterior Approach 7 <*> Procedure Hip Total Anterior Approach 8 <+> Time Out 8 <*> Procedure Hip Total Anterior Approach 9 <*> Procedure Hip Total Anterior Approach 10 <*> Procedure Hip Total Anterior Approach 11 <+> Time Out 11 <*> Procedure Hip Total Anterior Approach 05/12/19 11:45:43 Pen Rider: JUAN C Modifier: JUAN C 3 <+> Time Out 3 <*> Procedure Hip Total Anterior Approach <+> 11 Case Attendee <+> 11 Role Performed <+> 11 Time In <+> 11 Procedure 05/12/19 11:27:30 Pen Rider: JUAN C Modifier: JUAN C 1 <+> Time Out 1 <*> Procedure Hip Total Anterior Approach 5 <+> Time Out 5 <*> Procedure Hip Total Anterior Approach 9 <+> Time Out 9 <*> Procedure Hip Total Anterior Approach 10 <+> Time Out 10 <*> Procedure Hip Total Anterior Approach 05/12/19 11:15:53 Pen Rider: JUAN C Modifier: JUAN C 6 <+> Time Out 6 <*> Procedure Hip Total Anterior Approach 7 <+> Time Out 7 <*> Procedure Hip Total Anterior Approach 05/12/19 10:55:31 Pen Rider: JUAN C Modifier: DALILAAND 1 <*> Time In 05/12/19 09:56:00 1 <*> Procedure Hip Total Anterior Approach 05/12/19 10:55:17 Pen Rider: JUAN C Modifier: DALILAAND 1 <+> Time In 1 <*> Procedure Hip Total Anterior Approach 2 <+> Time In 2 <*> Procedure Hip Total Anterior Approach 3 <+> Time In 3 <*> Procedure Hip Total Anterior Approach 4 <+> Time In 4 <*> Procedure Hip Total Anterior Approach 5 <+> Time In 5 <*> Procedure Hip Total Anterior Approach 6 <+> Time In 6 <*> Procedure Hip Total Anterior Approach 7 <+> Time In 7 <*> Procedure Hip Total Anterior Approach 8 <+> Time In 8 <*> Procedure Hip Total Anterior Approach 9 <+> Time In 9 <*> Procedure Hip Total Anterior Approach 10 <+> Time In 10 <*> Procedure Hip Total Anterior Approach [facility] IntraOp Case Times Entry 1 Patient In Room Time 05/12/19 09:56:00 Out Room Time 05/12/19 11:51:00 Anesthesia Start Time 05/12/19 09:56:00 Stop Time 05/12/19 11:51:00 Anesthesia Ready 05/12/19 09:56:00 Surgery / Procedure Times Start Time 05/12/19 10:29:00 Stop Time 05/12/19 11:44:00 Last Modified By: Gabriela Pena RN 05/12/19 11:51:43 [facility] IntraOp Case Times Audit 05/12/19 11:51:43 Pen Rider: JUAN C Modifier: JUAN C <+> 1 Out Room Time <+> 1 Stop Time 05/12/19 11:45:46 Pen Rider: JUAN C Modifier: JORDCAROLYNBLAND <+> 1 Stop Time 05/12/19 10:29:48 Pen Rider: JUAN C Modifier: DALILAAND <+> 1 Start Time [facility] IntraOp Cautery Entry 1 ESU Identification Cautery Type Monopolar ESU ID Number [id number] ID Type Hospital Number Cautery Settings Cut Setting 70 Coag Setting 70 ESU Grounding Pad Ground Pad Type Adult Grounding Pad Site Left thigh Grounding Pad Gabriela Pena RN Applied By Grounding Pad Site Warm, dry and intact Skin Condition Before Cautery Grounding Pad Site Unchanged, Warm, dry Skin Condition and intact After Cautery Last Modified By: Gabriela Pena RN 05/12/19 10:20:25 [facility] IntraOp Communication Entry 1 Communication To Family/Significant other Comment START Communication By Gabriela Pena RN Date and Time 05/12/19 10:29:00 Last Modified By: Gabriela Pena RN 05/12/19 10:34:27 [facility] IntraOp Counts Verification Entry 1 Entry 2 Procedure Hip Total Anterior Hip Total Anterior Approach Approach Count Info Count Type Sponge, Sharps, Sponge, Sharps, Miscellaneous Miscellaneous Counts Verification Baseline/pre-procedure Before wound closure Sequence Count Results Correct, surgeon Correct, surgeon notified notified If Incorrect or Waived complete the Counts Action Taken form: If Intentional Retention, complete the Intential Retention form: Counts Performed By Count Performed By Juve Stubbs Mark (Scrub) Count Performed By Gabriela Pena RN Biery, Jordyn A RN (RN) Last Modified By: Gabriela Pena RN Biery, Jordyn A, RN 05/12/19 09:48:26 05/12/19 11:23:37 [facility] IntraOp Counts Verification Audit 05/12/19 11:23:37 Pen Rider: JUAN C Modifier: JUAN C <+> 2 Procedure <+> 2 Count Type <+> 2 Counts Verification Sequence <+> 2 Count Results <+> 2 Count Performed By (Scrub) <+> 2 Count Performed By (RN) [facility] IntraOp Counts Final Entry 1 Procedure Hip Total Anterior Approach Final Count Info Count Type Sponge, Sharps Counts Verification Skin Closure/end of Sequence procedure Count Results Correct, surgeon notified Counts Performed By Count Performed By Juve Stubbs (Scrub) Count Performed By MICHELLE ALVA RN (RN) Last Modified By: Gabriela Pena RN 05/12/19 11:48:20 [facility] IntraOp Cultures and Spec Summary Entry 1 Cultrures and Specimens Specimen Ordered: Yes Test(s) Gross Analysis/Path-Lab Requested/Final Disposition Last Modified By: Gabriela Pena RN 05/12/19 09:48:34 [facility] IntraOp Cultures and Spec Summary Audit 05/12/19 09:48:34 Pen Rider: JUAN C Modifier: JUAN C <+> 1 Test(s) Requested/Final Disposition [facility] IntraOp Departure from OR Entry 1 Integumentary Assessment Transfer/Handoff Transfer to PACU Phase I Handoff Method Bedside/Face to face Post-op Transport Bed (including Via specialty) Patient Transport SAMUEL MONTERO, Accompanied by ARTIE LAWRENCE SUSAN, RN Last Modified By: Gabriela Pena RN 05/12/19 11:48:56 [facility] IntraOp Drains and Tubes Entry 1 Device Type Hemovac Size MED. Drain/Tube Activity Inserted Drain/Tube Suction Not applicable Device Location RIGHT HIP Method of Drainage Compression Last Modified By: Gabriela Pena RN 05/12/19 10:20:43 S[facility] IntraOp Dressing and Packing Entry 1 Type Dressing Location RIGHT HIP Wound Dressing Item Occlusive dressing, Skin Closure Glue Applied By QIAN WASHBURN, ARTEMIO Other Comments MEPILEX; DERMABOND Last Modified By: Gabriela Pena RN 05/12/19 10:20:56 S[facility] IntraOp Fire Risk Assessment Entry 1 Fire Info Surgical Site or 0- No Incision Above the Xyphoid Open O2 Source 0- No (Mask or Cannula) Available Ignition 1- Yes (ESU, Laser, Light Source) Fire Risk 1 Assessment Score Fire Score Fire Risk Yes Assessment Complete Fire Risk Gabriela Pena RN Assessment Verified By Fire Risk 05/12/19 09:48:00 Assessment Verified Date/Time Fire Risk High Risk Protocol Yes Implemented Standard Fire Yes Safety Precautions Followed Last Modified By: Gabriela Pena RN 05/12/19 09:48:31 S[facility] IntraOp General Case Eyelet Machine Operator 1 Case Information OR OR 10 SJE Case Level 1 Room Verified Yes Wound Class I - Clean Specialty SN Orthopedic Anesthesia Type General ASA Class 3 Diagnosis Preop Diagnosis DJD RIGHT HIP Postop Same As Preop No Postop Diagnosis DICTATED BY MD Last Modified By: Gabriela Pena RN 05/12/19 10:21:09 [facility] IntraOp Implant Log Entry 1 Entry 2 Entry 3 Type Implant (Synthetic) Implant (Synthetic) Implant (Synthetic) Implant Log Implant Type Hardware Hardware Hardware Tissue Implant Type Implant SHELL ACETAB 50MM 3 LINER LGCL CUP 54MM SZ STEM HIP ORIGIN SZ 13 Identification [id number] Description Implant Quantity 1 1 1 Implant Site RIGHT HIP RIGHT HIP RIGHT HIP Implant Identification Model Number Implant Identification Serial Number Implant [id number] Identification Lot Number Implant [employer] Paxeon Reconstruction Paxeon Reconstruction Identification [facility] Diesel Engineer Name: Implant [id number] Identification Catalog Number Implant Size Implant Has an Yes Yes Yes Expiration Date Implant Expiration 12/16/23 04/17/24 01/16/24 Date Wasted Radioactive Material Time Implanted Tissue Implant Continue for Tissue Implant Documentation Tissue Identification Number Graft Prep Per Diesel Engineer Instructions: Tissue Preparation Method: Reconstitution Solution: Reconstitution Solution Lot Number Reconstitution Solution Expiration Date: Thawing Solution Thawing Solution Lot Number Thawing Solution Expiration Date Preparation Materials, Other Preparation Materials, Other Lot Number Preparation Materials, Other Expiration Date Tissue Prepared/Processed By Diesel Engineer Paperwork Completed Implant Type Comment Last Modified By: Gabriela Pena RN Biery, Jordyn A, RN Biery, Jordyn A, RN 05/12/19 10:55:07 05/12/19 10:55:07 05/12/19 11:19:51 Entry 4 Type Implant (Synthetic) Implant Log Implant Type Hardware Tissue Implant Type Implant HEAD FEM CERC SZ 36MM Identification [id number] Description Implant Quantity 1 Implant Site RIGHT HIP Implant Identification Model Number Implant Identification Serial Number Implant [id number] Identification Lot Number Implant Paxeon Reconstruction Identification Diesel Engineer Name: Implant [id number] Identification Catalog Number Implant Size Implant Has an Yes Expiration Date Implant Expiration 04/17/24 Date Wasted Radioactive Material Time Implanted Tissue Implant Continue for Tissue Implant Documentation Tissue Identification Number Graft Prep Per Diesel Engineer Instructions: Tissue Preparation Method: Reconstitution Solution: Reconstitution Solution Lot Number Reconstitution Solution Expiration Date: Thawing Solution Thawing Solution Lot Number Thawing Solution Expiration Date Preparation Materials, Other Preparation Materials, Other Lot Number Preparation Materials, Other Expiration Date Tissue Prepared/Processed By Diesel Engineer Paperwork Completed Implant Type Comment Last Modified By: Gabriela Pena RN 05/12/19 11:19:51 [facility] IntraOp Implant Log Audit 05/12/19 11:19:51 Pen Rider: JUAN C Modifier: JUAN C <+> 3 Implant Identification Description <+> 3 Implant Identification Lot Number <+> 3 Implant Identification Diesel Engineer Name: <+> 3 Implant Expiration Date <+> 3 Implant Identification Catalog Number <+> 4 Implant Identification Description <+> 4 Implant Identification Lot Number <+> 4 Implant Identification Diesel Engineer Name: <+> 4 Implant Expiration Date <+> 4 Implant Identification Catalog Number 05/12/19 10:55:07 Pen Rider: JUAN C Modifier: JUAN C <+> 1 Implant Identification Description <+> 1 Implant Identification Lot Number <+> 1 Implant Identification Diesel Engineer Name: <+> 1 Implant Expiration Date <+> 1 Implant Identification Catalog Number <+> 2 Implant Identification Description <+> 2 Implant Identification Lot Number <+> 2 Implant Identification Diesel Engineer Name: <+> 2 Implant Expiration Date <+> 2 Implant Identification Catalog Number [facility] IntraOp Intraoperative Assessment Entry 1 Valid History / Yes Physical in Chart Preoperative Yes Checklist Reviewed/Evaluated Allergies Reviewed Yes Patient is Latex No Sensitive Isolation Not applicable Precautions Noted Skin Assessment Yes Verified Present Upon IVs Arrival to OR Last Modified By: Gabriela Pena RN 05/12/19 10:21:14 [facility] IntraOp Intraoperative Equipment Entry 1 Type Equipment Equipment Equipment Robel Suction System Setting HIGH Intraop Monitoring Antiembolic Devices Antiembolic Devices Sequential compression device, knee high Antiembolic Device Left Location Scopes Photo/Video Documentation Photo No Video No Last Modified By: Gabriela Pena RN 05/12/19 10:21:22 [facility] IntraOp Medication Admin Entry 1 Entry 2 Entry 3 Medication/Irrigant TRANEXAMIC ACID vancomycin 1Gm vial - CLONIDINE-10ML 1000MG/10 ML [id number] Combo Med List 1 - Combo Med Time Administered Route of TOPICAL; MIXED W/ 25ML TOPICAL INJECTION Administration NACL Dose Dose 1000 1 0.8 Unit of Measure mg gram ml Volume 10ML Administered By ROSIO JUDD CHRISTENSEN, DUTCH AVELAR CHRISTIAN, MD-ORT -ORT -ORT Procedure Irrigation Irrigant Volume In Irrigant Volume Out Last Modified By: Gabriela Pena, Gabriela Salazar RN Biery, Jordyn A, RN 05/12/19 09:48:54 05/12/19 09:48:54 05/12/19 09:48:54 Entry 4 Entry 5 Entry 6 Medication/Irrigant Ketorolac 30mg/ml vial ROPIVICAINE 5% lidocaine 1% w/ epinephrine 1:100,000 20ml vial - [id number] Combo Med List 2 - Combo Med 3 - Combo Med 4 - Combo Med Time Administered Route of INJECTION INJECTION INJECTION Administration Dose Dose 1 25 23.2 Unit of Measure ml ml ml Volume Administered By ROSIO JUDD CHRISTENSEN, CHRISTIAN, CHRISTENSEN, CHRISTIAN, MD-ORT -ORT -ORT Procedure Irrigation Irrigant Volume In Irrigant Volume Out Last Modified By: Gabriela Pena RN Biery, Jordyn A, RN Biery, Jordyn A, RN 05/12/19 09:48:54 05/12/19 09:48:55 05/12/19 09:48:55 [facility] IntraOp Medication Admin Audit 05/12/19 09:48:55 Pen Rider: JUAN C Modifier: JUAN C <+> 5 Administered By <+> 6 Medication/Irrigant <+> 6 Route of Administration <+> 6 Administered By <+> 6 Dose <+> 6 Combo Med List <+> 6 Unit of Measure SJE IntraOp Patient Positioning Entry 1 Procedure Hip Total Anterior Approach Body Position Supine Left Arm Position Secured on padded arm board Right Arm Position Secured across chest Left Leg Position Traction Right Leg Position Traction Feet Uncrossed Yes Pressure Points Yes Checked Positioning Devices Table, Fracture, Pillows, Arm Board Device Position SECURED RIGHT ARM WITH GUY RADHA ACROSS CHEST-PAD WITH EGG CRATE; LEFT ARM ON ARM BOARD; WRAPPED BOTH FEET WITH COBAN; USE FOAM FOOT PADDING; WRAPPED RIGHT FOOT WITH COBAN AFTER PUTTING IN BOOT Positioned By COLTON LINN CSA, SAMUEL MONTERO, JEANETH-ANS, Lelo Siddiqi, School Child Care Attendant, Gabriela Pena, KOBE, FRANKY URRUTIA Position Verified Positioning Yes Verified by Anesthesia Positioning Yes Verified by Surgeon Last Modified By: Gabriela Pena RN 05/12/19 10:22:16 [facility] IntraOp Sign In Entry 1 Patient, Site, Yes Procedure Identified Surgical Consent Yes Confirmed Relevant Surgical Yes Documents Available Surgical Site Yes Marked by person performing procedure Anesthesia Machine Yes Check Completed Medication Checks Yes Completed Allergies Yes Airway Difficult Yes Airway/Aspiration Intervention Equipment Available Blood Loss Risk Yes Blood Loss Yes Intervention Equipment Prepared and Ready Hypothermia Risk Yes Warming Measures Yes Taken Last Modified By: Gabriela Pena RN 05/12/19 10:22:20 [facility] Intra Op Sign Out Entry 1 RN Confirmation Surgical Yes Procedure(s) Identified Instrument, Sponge Yes and Sharps Counts Correct/Documented Equipment Problems Yes Documented Specimen Labeled Yes Correctly Urinary Catheter N/A Documented in IView Serna Patient Yes Recovery Concerns Reviewed with Anesthesia Provider, Surgeon and RN Serna Patient Yes Management Concerns Reviewed with Anesthesia Provider, Surgeon and RN Safety Checklist Yes Elements Complete? RN Sign Out MICHELLE ALVA, KOBE Signature RN Sign Out 05/12/19 11:51:00 Signature Date/Time Plan of Care Outcome - Fire Risk OUTCOME STATEMENT: Goal met Patient is free from injury related to surgical fire Plan of Care Outcome - Pt Positioning OUTCOME STATEMENT: Goal met Absence of signs and symptoms of positioning injury. Plan of Care Outcome - Skin Prep OUTCOME STATEMENT: Goal met Intraoperative care is consistent with measures to prevent infection Plan of Care Outcome - Xray/Images OUTCOME STATEMENT: Goal met Absence of observable signs or symptoms of radiation injury Plan of Care Outcome - Counts OUTCOME STATEMENT: Goal met Absence of signs and symptoms of injury related to extraneous objects Last Modified By: Gabriela Pena RN 05/12/19 11:51:55 [facility] Intra Op Sign Out Audit 05/12/19 11:51:55 Pen Rider: JUAN C Modifier: JUAN C 1 <*> RN Sign Out Signature Gabriela Pena RN 1 <+> RN Sign Out Signature Date/Time [facility] IntraOp Skin Prep Entry 1 Procedure Hip Total Anterior Approach Prescribed Yes Pre-Surgical Prep Completed Prep Area RIGHT HIP; WIPE WITH ALCOHOL FIRST, THEN DURAPREP X 2 Intraop Prep Integumentary WDL with exceptions Assessment WDL WDL Patient REDNESS NOTED TO RIGHT Exceptions GROIN AND PANUS Prep Agents DuraPrep, Alcohol Prep by Gabriela Pena RN Hair Removal Methods No hair removal performed Last Modified By: Gabriela Pena RN 05/12/19 10:23:06 [facility] IntraOp Skin Prep Audit 05/12/19 10:23:06 Pen Rider: JUAN C Modifier: JUAN C 1 <+> Methods 1 <*> Procedure Hip Total Anterior Approach [facility] IntraOp Surgical Procedures Entry 1 Procedure Hip Total Anterior Approach Additional RIGHT DIRECT ANTERIOR Procedure TOTAL HIP REPLACEMENT Description Primary Procedure Yes Primary Surgeon ROSIO JUDD MD-ORT Start 05/12/19 10:29:00 Stop 05/12/19 11:44:00 Anesthesia Type General Specialty SN Orthopedic Wound Class I - Clean Last Modified By: Gabriela Pena RN 05/12/19 11:48:01 S[facility] IntraOp Surgical Procedures Audit 05/12/19 11:48:01 Pen Rider: JUAN C Modifier: JUAN C <+> 1 Start <+> 1 Stop S[facility] IntraOp Temp Regulation Devices Entry 1 Temp Regulation Temperature Forced Air Warming Regulation Device device Temperature Upper body Regulation Site Temperature WINSTON, SAMUEL, Regulation Device ROAD CONTRACTOR-ANS Applied by Last Modified By: Gabriela Pena RN 05/12/19 10:23:10 [facility] IntraOp Time Out Entry 1 Procedure to be Hip Total Anterior Performed Approach Time Out Time Out Pause Time 05/12/19 10:27:00 All activity Yes suspended (unless life threatening emergency) Team Verbally Correct patient Confirms Information identity, Correct side and site are marked, Consent form is present and accurate, Agreement on the procedure to be done, Correct patient position, Relevant images/results properly labeled/appropriately displayed, Confirm antibiotics have been administered, Confirm the skin prep has dried, Confirm prosthesis/implant/devic e is present, Performed in location of procedure after prepped/draped Antibiotic Yes Prophylaxis Administered Or In Progress Within the Last 60 Minutes Beta Kwabena N/A Administered Venous Yes Thromboembolism Prophylaxis Required Anticipated Critical Events Surgeon None expected Anesthesia Provider None expected Nursing Assures Sterility of instruments, Implant Availability Essential Imaging Yes Labeled and Displayed Last Modified By: Gabriela Pena RN 05/12/19 10:55:43 S[facility] IntraOp Time Out Audit 05/12/19 10:55:43 Pen Rider: JUAN C Modifier: JUAN C 1 <+> Time Out Pause Time 1 <*> Procedure to be Performed Hip Total Anterior Approach S[facility] IntraOp X-Ray and Images Entry 1 X-Ray/Imaging Type Fluoroscopy Fluoroscopy Type C-Arm Site RIGHT HIP Wireless Architect Name DRAKE SALINAS Protective Devices Yes Used Last Modified By: Gabriela Pena RN 05/12/19 10:23:44 Case Comments <None> Finalized By: Mirna Valderrama RN Document Signatures Signed By: Gabriela Pena RN 05/12/19 12:01 Gabriela Pena RN 05/14/19 17:04 Mirna Valderrama RN 05/15/19 10:45 Unfinalized History Date/Time Username Reason for Unfinalizing Freetext Reason for Unfinalizing 05/14/19 17:03 JUAN C Modify Pick List 05/15/19 10:43 NIRMAL Correct Billing Electronically signed by [facility] Conversion Blood And Plasma Laboratory Assistant Cerner at 07/02/2022 5:08 PM CDT documented in this encounter Plan of Treatment Not on file documented as of this encounter Visit Diagnoses Not on filedocumented in this encounter
--- OUTSIDE RECORDS SUMMARY | 2024-09-08 15:11 | XMS_ITS | Encounter Summary ---
Author Organization [employer] Address [address] [place] [id number] Care Team Providers Care Tooling Mechanic Name Role Phone Unavailable Primary Care Provider Unavailabl e Encounter Details Date Type Department Care Team (Late st Contact Info) Description 05/12/2019 Transcribed Document [facility] [place] Family Medicine [facility] [place] [address] ProviderLexi MD [facility] [place] [address] Social History Tobacco Use Types [...] Conversion Note - Historical ProviderMD - 05/12/2019 7:00 PM DESKTOP SUPPORT ENGINEER Pain Assessment Entered On: 05/12/2019 23:17 EST Performed On: 05/12/2019 19:38 EST by BORIS OVALLE, Sprayer Operator-Nursing Intervention Information: acetaminophen Performed by Rach Red RN on 05/12/2019 18:38:00 EST acetaminophen,1000mg Oral Pain Assessment Pain Assessment : Follow-up assessment Pain Scale Goal : 4 Pain Scale Used : FACES Pain Intervention, Drug : Medicated Pain Improved by Intervention : Yes BORIS OVALLE, Sprayer Operator-Nursing - 05/12/2019 23:17 EST Pain Scale Intensity : 3 BORIS OVALLE, Sprayer Operator-Nursing - 05/12/2019 23:17 EST Image 4 - Images currently included in the form version of this document have not been included in the text rendition version of the form. documented in this encounter Plan of Treatment Not on file documented as of this encounter Visit Diagnoses Not on filedocumented in this encounter
--- OUTSIDE RECORDS SUMMARY | 2024-09-08 15:11 | XMS_ITS | Encounter Summary ---
Author Organization Generate Address [address] [place] [address] Care Team Providers Care Kaiawhina Kura [place] Maori Name Role Phone Unavailable Primary Care Provider Unavailabl e Encounter Details Date Type Department Care Team (Late st Contact Info) Description 05/13/2019 Transcribed Document [facility] [place] [facility] [place] [address] ProviderLexi MD [address] [place] [address] Social History Tobacco Use Types Packs/Day [...] Conversion Note - Historical ProviderMD - 05/13/2019 10:06 AM CLINICAL NURSE OCCUPATIONAL MEDICINE On Going Discharge Planning Entered On: 05/13/2019 10:07 EST Performed On: 05/13/2019 10:06 EST by SANDRA DEL ANGEL, Care Management-Yard Stocker Care Management Progress Note Discharge Arrangements : Patient Post-Acute Information Patient Name: TAY ARDON Gender: Female : [birth year] Age: 73 Years No Post-Acute Placement(s) Listed No Post-Acute Service(s) Listed No [place] Referral(s) Listed Discharge Options Discussed with Patient : Short term rehabilitation SANDRA DEL ANGEL, Care Management-Yard Stocker - 05/13/2019 10:06 EST Narrative Progress Note Narrative Progress Note : Pt has been changed to in pt status per IPAS. [facility]. SANDRA DEL ANGEL, Care Management-Yard Stocker - 05/13/2019 10:06 EST Electronically signed by Angelika, [facility] Conversion Cuff Slitter Cerner at 07/02/2022 5:12 PM CDT documented in this encounter Plan of Treatment Not on file documented as of this encounter Visit Diagnoses Not on filedocumented in this encounter
--- OUTSIDE RECORDS SUMMARY | 2024-09-08 15:11 | XMS_ITS | Encounter Summary ---
Author Organization [employer] Address [address] [place] [address] Care Team Providers Care Capacity Planning Manager Name Role Phone Unavailable Primary Care Provider Unavailabl e Encounter Details Date Type Department Care Team (Late st Contact Info) Description 05/14/2019 Transcribed Document [facility] [place] [facility] [place] [address] ProviderLexi MD [address] [place] [address] Social History Tobacco Use Types [...] Conversion Note - Historical ProviderMD - 05/14/2019 5:00 AM CERTIFIED BREASTFEEDING EDUCATOR Chart Check - Review Order Profile Entered On: 05/14/2019 6:35 EST Performed On: 05/14/2019 5:00 EST by BORIS OVALLE, Ditcher-Nursing Chart Check Powerplans Initiated/Discontinued as Appropriate : Yes All Active Orders Reviewed : Yes BORIS OVALLE, Ditcher-Nursing - 05/14/2019 6:34 EST Electronically signed by Angelika [facility] Conversion Termite Helper Cerner at 07/02/2022 4:55 PM CDT documented in this encounter Plan of Treatment Not on file documented as of this encounter Visit Diagnoses Not on filedocumented in this encounter
--- OUTSIDE RECORDS SUMMARY | 2024-09-08 15:11 | XMS_ITS | Encounter Summary ---
Author Organization [email or web address] Address [address] [place] [address] Care Team Providers Care Paint Striping Machine Operator Name Role Phone Unavailable Primary Care Provider Unavailabl e Encounter Details Date Type Department Care Team (Late st Contact Info) Description 05/12/2019 Transcribed Document [facility] [place] [facility] [place] [address] ProviderLexi MD [address] [place] [address] Social History Tobacco Use Types Packs/Day [...] Conversion Note - Historical ProviderMD - 05/12/2019 12:53 PM DIVING JUDGE Pain Assessment Entered On: 05/15/2019 9:58 EST Performed On: 05/15/2019 9:32 EST by Rosie Warner RN Intervention Information: oxyCODONE Performed by Rosie Warner RN on 05/15/2019 08:32:00 EST oxyCODONE,5mg Oral,Pain Pain Assessment Pain Assessment : Follow-up assessment Pain Scale Goal : 4 Pain Scale Used : 0-10 Scale Pain Improved by Intervention : Yes Rosie Warner RN - 05/15/2019 9:57 EST Pain Scale Intensity : 3 Rosie Warner RN - 05/15/2019 9:57 EST Image 4 - Images currently included in the form version of this document have not been included in the text rendition version of the form. documented in this encounter Plan of Treatment Not on file documented as of this encounter Visit Diagnoses Not on filedocumented in this encounter
--- OUTSIDE RECORDS SUMMARY | 2024-09-08 15:11 | XMS_ITS | Encounter Summary ---
Author Organization [employer] Address [address] [place] [address] Care Team Providers Care Rn Licensed Practical Name Role Phone Unavailable Primary Care Provider Unavailabl e Encounter Details Date Type Department Care Team (Late st Contact Info) Description 05/12/2019 Transcribed Document [facility] [place] [facility] [place] [address] ProviderLexi MD [address] [place] [address] Social History Tobacco Use Types Packs/Day [...] Conversion Note - Historical Provider, - 05/12/2019 2:48 PM ODD JOB LABORER Treatment Intervention, OT Entered On: 05/16/2019 14:44 EST Performed On: 05/16/2019 9:30 EST by RAMON SORENSON OTR/Brittany General Information, OT Visit Type, OT : Treatment Note Patient Orders : Order Date Order Ordering 05/12/2019 12:54 OT Evaluation and Treatment Ordered By: ROSIO JUDD MD-ORT 05/12/2019 12:54 OT Treatment Instructions Ordered By: ROSIO JUDD MD-ORT 05/12/2019 14:48 Occupational Therapy Additional Tx Ordered By: Active Diagnoses : 05/16/2019 12:00 Osteoarthritis of hip, unspecified Therapy Diagnosis, OT : reduced mobility Admission Date : 05/13/2019 09:44 Personal Devices : Personal Devices Dentures, upper, Dentures, lower Assistive Devices : Assistive Devices No Devices Recorded Precautions in Place : Fall prevention measures, high risk RAMON SORENSON OTR/Brittany - 05/16/2019 14:36 EST General Status Patient Received Status : Up in chair Treatment Start Time : 05/16/2019 9:30 EST Patient Left Status : Up in chair RN/PCT Informed Comment : RN ok ed. Client agrees to tx. Treatment End Time : 05/16/2019 9:46 EST Treatment Time : 16 Minute(s) Actual Treatment Time : 16 Minute(s) YAS NATALEE NAVARRO/Brittany - 05/16/2019 14:36 EST Self Care/Home Management, OT Self Care/Home Management Comment, OT : client set-up A with toileting PIYUSHRADHA NATALEE NAVARRO/Brittany - 05/16/2019 14:36 EST Functional Mobility Mobility Grid Sit to Stand : Rehab Minimal assistance Bed to Chair : Supervision/set-up RAMON SORENSON OTR/Brittany - 05/16/2019 14:36 EST Cognitive Treatment, OT Orientation : Oriented x 4 RAMON SORENSON OTR/Brittany - 05/16/2019 14:36 EST Education OT Occupational Therapy Education Grid Activity of Daily Living Training : Verbalizes understanding, Returns demonstration Functional Mobility Training : Verbalizes understanding, Returns demonstration Role of Occupational Therapy : Verbalizes understanding RAMON SORENSON OTR/Brittany - 05/16/2019 14:36 EST Plan of Care, OT OT Tx Plan/Goals Established w Patient : Yes YAS NATALEE NAVARRO/Brittany - 05/16/2019 14:36 EST Snf Goals, OT Other LTG Grid Goal #1 Goal #2 Goal : Pt will complete ADL transfer with CGA, RW level. Pt will complete LB self care task with CGA, AE prn. Date to Meet : 05/18/2019 EST 05/18/2019 EST Goal Status : Goal met Goal met Date Met : 05/13/2019 EST 05/15/2019 EST Comment : CGA sit <> stand 05/13/19 Min A w/LB dressing & SB-CGA w/toilet routine on 05/13/19, simulates with cues on 05/15 SBA donning pants using AD RAMON SORENSON OTR/Brittany - 05/16/2019 14:36 EST RAMON SORENSON OTR/Brittany - 05/16/2019 14:36 EST Treatment Note Subjective Comment : Client reports plan to go to rehab today pending nursing needs and having a BM before d/c. Patient's Response to Treatment : Client with good activity tolerance, no shortness of breath during transfer to commode. Additional Objective Information : Client transferred to commode from chair. WB precautions are 25% but client does not verbalize precautions and observed placing weight on LEs. Client set-up A with toileting. Client used walker at all times. Assessment : Client will be d/c to rehab. If not d/c, client would benefit from additional education regarding WB status while inpatient. RAMON SORENSON OTR/Brittany - 05/16/2019 14:36 EST Pain Assessment Pain Score Pre-Intervention : 2 Pain Score During-Intervention : 2 Pain Score Post-Intervention. : 2 RAMON SORENSON OTR/Brtitany - 05/16/2019 14:36 EST Image 1 - Images currently included in the form version of this document have not been included in the text rendition version of the form. [facility] OT Charges OT Selfcare/Hm Mgmt Ea 15 Min : 1 RAMON SORENSON OTR/Brittany - 05/16/2019 14:36 EST documented in this encounter Plan of Treatment Not on file documented as of this encounter Visit Diagnoses Not on filedocumented in this encounter
--- OUTSIDE RECORDS SUMMARY | 2024-09-08 15:11 | XMS_ITS | Encounter Summary ---
Author Organization [employer] Address [address] [place] [address] Care Team Providers Care Senior Vice President Name Role Phone Unavailable Primary Care Provider Unavailabl e Encounter Details Date Type Department Care Team (Late st Contact Info) Description 05/12/2019 Transcribed Document [facility] [place] [facility] [place] [address] ProviderLexi MD [facility] [place] [address] Social History Tobacco Use Types [...] - Historical ProviderMD - 05/12/2019 12:53 PM ONBOARDING SPECIALIST Evaluation, Physical Therapy Entered On: 05/12/2019 15:07 EST Performed On: 05/12/2019 14:32 EST by WILIAN KENNEDY, PT General Information, PT Visit Type, PT : Initial evaluation WILIAN KENNEDY, PT - 05/12/2019 14:46 EST Patient Orders : Order Date Order Ordering 05/12/2019 12:54 PT Evaluation and Treatment Ordered By: ROSIO SEN MD-ORT 05/12/2019 12:54 PT Treatment Instructions Ordered By: ROSIO SEN MD-ORT 05/12/2019 12:54 PT Treatment Instructions Ordered By: ROSIO SEN MD-ORT 05/12/2019 12:54 PT Treatment Instructions Ordered By: ROSIO SEN MD-ORT 05/12/2019 12:54 PT Treatment Instructions Ordered By: ROSIO SEN MD-ORT 05/12/2019 12:54 PT Treatment Instructions Ordered By: ROSIO SEN MD-ORT 05/12/2019 14:34 Consult to Physical Therapy Ordered By: QIAN WASHBURN PAC Active Diagnoses : No Qualifying Diagnoses WILIAN KENNEDY, PT - 05/12/2019 15:07 EST Therapy Diagnosis, PT : aftercare following R ATHA WILIAN KENNEDY, PT - 05/12/2019 14:46 EST Admission Date : 05/12/2019 04:49 Personal Devices : Personal Devices Dentures, upper, Dentures, lower Assistive Devices : Assistive Devices No Devices Recorded WILIAN KENNEDY, PT - 05/12/2019 15:[address] : Fall prevention measures, high risk General Information Comment, PT : 73yo female s/p R anterior PAULA by Dr. Sen on 05/12/19. 25# WB on R LE x 2 weeks Recent hospitalization in March for pna. Patient reports multiple falls at home. Patient's sister told OT in hallway that patient is a hoarder and is tripping over things in her home. They are hoping she can go to rehab from the hospital so they can get her house cleaned out. WILIAN KENNEDY, PT - 05/12/2019 14:46 EST General Status Patient Received Status : Supine in bed, Bed alarm activated, Other: IV, hemovac drain, 3L O2, pulse ox, BP cuff, family present Treatment Start Time : 05/12/2019 14:14 EST Patient Left Status : Up in chair, Chair alarm activated, RN/PCT informed, Family/Visitors at bedside, Communication board completed, All needs met and within reach, Other: as found RN/PCT Informed Comment : RN ok'd PT EVAL. Patient agreeable to PT EVAL. Treatment End Time : 05/12/2019 14:32 EST Treatment Time : 18 Minute(s) Actual Treatment Time : 18 Minute(s) WILIAN KENNEDY, PT - 05/12/2019 14:46 EST History and Environment Living Situation, Therapy : Home Patient Lives With : Alone Persons Assisting Patient at Home : Alone, Sibling(s) Professional Skilled Services : None Persons Providing Information : Patient, Family member(s) Home Equipment Therapy, PT : Walker Walker : Walker, standard Home Setup : One story Stairs : Yes Stair Location(s) : Outside Outside Stairs, Number of Steps : 4 Outside Stairs Comment : 2 with R rail + 2 more without rails Railing Outside : Yes Outside Railing Position : Right, going up WILIAN KENNEDY, PT - 05/12/2019 14:46 EST Prior Level of Function PT GRID Prior LOF Ambulation, Household : Independent (Comment: without AD - but falling [WILIAN KENNEDY, PT - 05/12/2019 14:46 EST] ) Prior LOF Bed Mobility : Independent Prior LOF Toileting : Independent Prior LOF Transfer : Independent WILIAN KENNEDY, PT - 05/12/2019 14:46 EST Prior LOF Assist with ADL Comment : Independent per patient, but family on couch made a comment like that is not the case. WILIAN KENNEDY, PT - 05/12/2019 14:46 EST Intervention Summary O2 Pre-Intervention : 3L O2 SpO2 Pre-Intervention : 90 % O2 During Intervention : room air SpO2 During Intervention : 88 % O2 Post-Intervention : 3L O2 SpO2 Post-Intervention : 95 % WILIAN KENNEDY, PT - 05/12/2019 14:46 EST Upper Extremity Upper Extremity Dominance : Right Right UE Active ROM : WFL Right UE Strength : WFL Left UE Active ROM : WFL Left UE Strength : WFL Right UE Strength : WFL Left UE Strength : WFL WILIAN KENNEDY, PT - 05/12/2019 14:46 EST Lower Extremity RLE Active ROM : Impaired Right LE Strength : Impaired LLE Active ROM : WFL Left LE Strength : WFL Lower Extremity Comment : R hip AROM/strength impaired d/t recent surgery WILIAN KENNEDY, PT - 05/12/2019 14:46 EST Functional Mobility Mobility Grid Supine to Sit : Rehab Minimal assistance Sit to Stand : Rehab Minimal assistance (Comment: VC's for hand placement/safety [WILIAN KENNEDY, PT - 05/12/2019 14:46 EST] ) Stand to Sit : Rehab Minimal assistance (Comment: poor eccentric control into chair [WILIAN KENNEDY, PT - 05/12/2019 14:46 EST] ) WILIAN KENNEDY, PT - 05/12/2019 14:46 EST Sit to Stand Device : Belt, gait, Walker, front wheel WILIAN KENNEDY, PT - 05/12/2019 14:46 EST Gait Training/Assessment, PT Weight Bearing Status : Partial right lower extremity Weight Bearing Status Comment : 25# WB on R LE x 2 weeks Patient practiced on scale what 25# of WB on R LE felt like several times - was having some difficulty since she stateed her R LE felt numb. Gait Assistance Level : Assist, minimal Walking Distance : 5' bed to chair Ambulatory Devices : Gait belt, Walker, front wheel Gait Training Comment : Patient ambulated 5' with RWx CGA/Min A + assist with IV VC's for gait sequencing and assist with turning walker WILIAN KENNEDY, PT - 05/12/2019 14:46 EST Neuromuscular Reeducation, PT Balance Comment : Fair- needs AD WILIAN KENNEDY, PT - 05/12/2019 14:46 EST Neurological/Sensory Overall Sensory Response : Impaired Overall Sensory Response Comment : Patient c/o R LE numbness WILIAN KENNEDY, PT - 05/12/2019 14:46 EST Activity Tolerance, PT Activity Comment : Fair/Good WILIAN KENNEDY, PT - 05/12/2019 14:46 EST Cognition Assessment, PT Orientation : Oriented x 4 Safety/Judgment Comment : Intact Follows Basic Command Assessment : Yes Attention Assessment : Present WILIAN KENNEDY, PT - 05/12/2019 14:46 EST Edu Topics Physical Therapy Education Grid Bed Mobility Training : Verbalizes understanding, Returns demonstration, Needs reinforcement Gait Training : Verbalizes understanding, Returns demonstration, Needs further teaching, Needs reinforcement Home Program/Exercises : Needs further teaching Role of Physical Therapy : Verbalizes understanding Safety : Verbalizes understanding, Needs reinforcement Stair Training : Needs further teaching Therapeutic Exercises : Verbalizes understanding, Returns demonstration Transfer Training : Verbalizes understanding, Returns demonstration, Needs further teaching, Needs reinforcement Use of Assistive Device : Verbalizes understanding, Returns demonstration, Needs further teaching, Needs reinforcement WILIAN KENNEDY, PT - 05/12/2019 14:46 EST Teaching/Learning Assessment Barriers To Learning : None evident Individuals Taught : Patient Readiness to Learn : Cooperative Readiness to Learn : Demonstration, Explanation, Other: utilized scale Learning Style Preferences Patient : Printed materials, Verbal explanation Learning Style Preferences Family : Printed materials, Verbal explanation WILIAN KENNEDY, PT - 05/12/2019 14:46 EST Indication Assesessment, PT Physical Therapy Indicated : Yes PT Problem List : Impaired, bed mobility, Impaired, endurance tolerance, Impaired, gait, Impaired, stair mobility, Impaired, standing balance, Impaired, strength, Impaired, transfers Potential Barriers To Therapy : Pain Rehabilitation Potential : Good WILIAN KENNEDY, PT - 05/12/2019 14:46 EST Plan of Care, PT PT Tx Plan/Goals Established w Patient : Yes PT Frequency Rehab : Daily, twice (bid) WILIAN KENNEDY, PT - 05/12/2019 14:46 EST Other PT Treatment Provided This Date : Patient performed B LE therex AROM x 10 reps: ankle pumps quad set glute set Patient encouraged to stay OOB and UIC x 2 hours. Explained what to expect at next PT session in AM. WILINA KENNEDY, PT - 05/12/2019 15:07 EST PT Duration Rehab : Three days PT Treatments Planned : Balance training, Bed mobility training, Caregiver training, Gait training, Safety education, Stair training, Therapeutic exercises, Transfer training WILIAN KENNEDY, PT - 05/12/2019 14:46 EST Longterm Goals Other PT LTG Grid Goal #1 Goal #2 Goal #3 Goal #4 Other : Patient will transfer with SBA/CGA to decrease caregiver burden. Patient will ambulate 50' with RWx CGA + maintain 25# WB on R LE for household distances. Patient will perform PAULA HEP A/AROM x 20 reps to improve strength/endurance for functional activities. Patient will ascend/descend 4 stairs with R rail CGA/Min A to access home. (IF D/C HOME) (Comment: 2 with R rail + 2 without rails [WILIAN KENNEDY, PT - 05/12/2019 14:46 EST] ) Date to Meet : 05/15/2019 EST 05/15/2019 EST 05/15/2019 EST 05/15/2019 EST Goal Status : Initial goal Initial goal Initial goal Initial goal WILIAN KENNEDY, PT - 05/12/2019 14:46 EST WILIAN KENNEDY, PT - 05/12/2019 14:46 EST WILIAN KENNEDY, PT - 05/12/2019 14:46 EST WILIAN KENNEDY, PT - 05/12/2019 14:46 EST Treatment Note Patient's Response to Treatment : Good Assessment : Patient will benefit from acute skilled PT services for ATHA protocol + to maxamize safety/[place] with functional mobility prior to discharge. Plan for Treatment : Would recommend SNF/rehab since patient lives alone and has a h/o multiple falls at home. WILIAN KENNEDY, PT - 05/12/2019 14:46 EST Pain Assessment Pain Scaled Used : 0-10 Pain scale Pain Score Pre-Intervention : 7 Pain Score During-Intervention : 7 Pain Score Post-Intervention. : 7 Pain Comment : 09/24 pain in R hip RN notified - patient requesting pain meds WILIAN KENNEDY, PT - 05/12/2019 14:46 EST Image 1 - Images currently included in the form version of this document have not been included in the text rendition version of the form. Anticipated Discharge Needs, OT/PT Anticipated Discharge to : Unit, [facility] Anticipated Home Equipment : Walker Anticipated D/C Provider Notified : client services account manager/case management Recommend Continued Therapy at Discharge : Yes Walker : Walker, front wheel WILIAN KENNEDY, PT - 05/12/2019 14:[address] [facility] PT Charges Gait Training Each 15 Min : 1 PT Eval Low Complexity : 1 WILIAN KENNEDY, PT - 05/12/2019 14:46 EST documented in this encounter Plan of Treatment Not on file documented as of this encounter Visit Diagnoses Not on filedocumented in this encounter
--- OUTSIDE RECORDS SUMMARY | 2024-09-08 15:11 | XMS_ITS | Encounter Summary ---
Author Organization [email or web address] Address [address] [place] [address] Care Team Providers Care Relations Manager Name Role Phone Unavailable Primary Care Provider Unavailabl e Encounter Details Date Type Department Care Team (Late st Contact Info) Description 05/13/2019 Transcribed Document [facility] [place] [facility] [place] [address] ProviderLexi MD [address] [place] [address] Social History Tobacco Use Types Packs/Day [...] Note - Historical ProviderMD - 05/13/2019 8:00 AM PIN BALL MACHINE MECHANIC Pain Assessment Entered On: 05/13/2019 9:18 EST Performed On: 05/13/2019 9:00 EST by Rach Red RN Intervention Information: traMADol Performed by Rach Red RN on 05/13/2019 08:00:00 EST traMADol,50mg Oral Pain Assessment Pain Assessment : Follow-up assessment Pain Scale Goal : 4 Pain Scale Used : 0-10 Scale Rach Red RN - 05/13/2019 9:18 EST Pain Scale Intensity : 5 Rach Red RN - 05/13/2019 9:18 EST Image 4 - Images currently included in the form version of this document have not been included in the text rendition version of the form. Electronically signed by Meghan Carney Conversion Career Information Specialist Cerner at 07/02/2022 5:14 PM CDT documented in this encounter Plan of Treatment Not on file documented as of this encounter Visit Diagnoses Not on filedocumented in this encounter
--- OUTSIDE RECORDS SUMMARY | 2024-09-08 15:11 | XMS_ITS | Encounter Summary ---
Author Organization [employer] Address [address] [place] [address] Care Team Providers Care Media Coordinator Name Role Phone Unavailable Primary Care Provider Unavailabl e Encounter Details Date Type Department Care Team (Late st Contact Info) Description 05/12/2019 Transcribed Document [facility] [place] [facility] [place] [address] ProviderLexi MD [facility] [place] [address] Social History Tobacco Use Types [...] Conversion Note - Historical ProviderMD - 05/12/2019 9:28 AM COAL CUTTER Event Note Entered On: 05/12/2019 9:29 EST Performed On: 05/12/2019 9:28 EST by Cecile Wright RN Event Note Event Date/Time : 05/12/2019 9:28 EST Event Location : Other: pre-op Event Details : Other: test dose ancef Description of Event : Test dose ancef completed. Pt denies hives or any reactions to antibiotic at this time. Cecile Wright RN - 05/12/2019 9:28 EST documented in this encounter Plan of Treatment Not on file documented as of this encounter Visit Diagnoses Not on filedocumented in this encounter
--- OUTSIDE RECORDS SUMMARY | 2024-09-08 15:11 | XMS_ITS | Encounter Summary ---
Author Organization [employer] Address [address] [place] [address] Care Team Providers Care Apprentice Technician Name Role Phone Unavailable Primary Care Provider Unavailabl e Encounter Details Date Type Department Care Team (Late st Contact Info) Description 05/14/2019 Transcribed Document [facility] [address] [place] [address] Fernando River MD [address] [place], [place] [id number] Social History Tobacco Use Types Packs/Day Years Used Date Smoking Tobacco: Never Assessed Comments Unknown Sex and Gender Information Value Date Recorded Sex Assigned at Female 09/14/2021 4:50 PM CDT Legal Sex Female 6:54 PM CDT Gender Identity Female 09/14/2021 4:50 PM CDT Sexual Orientation Not on file documented as of this encounter Miscellaneous Notes * Cerner Conversion Note - Fernando River MD - 05/14/2019 12:00 PM EST Patient: TAY FONSECA Age: 73 Years Sex: Female : 1945 Subjective Patient feels better today No nausea No headache Has been up with therapy Tolerated her breakfast Vital Signs T: 36.4 ??C TMIN: 36.4 ??C TMAX: 37.1 ??C HR: 91(Monitored) RR: 18 BP: 116/57 SpO2: 98% Oxygen Settings (Last) Oxygen Therapy Mode: Nasal cannula (05/14/19 07:23:00) Oxygen Flow Rate: 2 Liter/Min (05/14/19 07:23:00) Intake & Output Totals Last 24 Hours (7a-7a) Input Total: 2142 mL Output Total: 0 mL Balance: 2142 mL Physical Exam General: Alert and oriented, [...] -hold po meds. -continue with insulin coverage. Blood sugar acceptable Acute kidney injury Likely prerenal and resolved. Continue to hold diuretics today Resume her RADHA in am. Hypertension -BP acceptable and resume lisnopril in am. Hyperlipidemia -continue home statin therapy Hypothyroidism -On levothyroxine Arthritis with severe DJD Had right hip replacement on 05/12 Further as per ortho direction and recommending rehab for this patient DVT prophylaxis on bid aspirin as per ortho recommendation Disposition:Resume lisnopril in am Holding diuretics. Seen on 05/14/19 Awaiting rehab and CM reported she is accepted at [facility] Discussed with patient and nursing and time [...] simvastatin, 40 mg= 2 Tab, Oral, QPM traMADol, 50 mg= 1 Tab, Oral, Q6H While Awake Tylenol, 1000 mg= 2 Tab, Oral, Q6HInt Vitamin D2, 82211 Units= 1 Cap, Oral, Saturday Zofran, 4 mg= 2 mL, IV Push, Q8H, PRN Lab Results Test Name Test Result Date/Time Sodium Level 143 mmol/L 05/14/2019 04:16 EST Potassium Level 4.8 mmol/L 05/14/2019 04:16 EST Chloride Level 107 mmol/L 05/14/2019 04:16 EST Carbon Dioxide Level 31 mmol/L 05/14/2019 04:16 EST Anion Gap 10 05/14/2019 04:16 EST Glucose Level 109 mg/dL (High) 05/14/2019 04:16 EST Blood Urea Nitrogen 21 mg/dL 05/14/2019 04:16 EST Creatinine Level 0.75 mg/dL 05/14/2019 04:16 EST eGFR >60 mL/min/1.73m2 05/14/2019 04:16 EST eGFR NonAfrican >60 mL/min/1.73m2 05/14/2019 04:16 EST Bun/Creatinine 28.0 (High) 05/14/2019 04:16 EST Calcium Level 8.6 mg/dL 05/14/2019 04:16 EST Glucose POC2 120 mg/dL (High) 05/14/2019 11:36 EST Glucose POC2 184 mg/dL (High) 05/13/2019 20:27 EST Glucose POC2 167 mg/dL (High) 05/13/2019 15:47 EST Hgb 10.0 Gram/dL (Low) 05/14/2019 04:16 EST Hct 31.9 % (Low) 05/14/2019 04:16 EST [1] Hospitalist Progress Note - SOAP; FERNANDO RIVER MD-INT 05/13/2019 10:00 EST documented in this encounter Plan of Treatment Not on file documented as of this encounter Visit Diagnoses Not on filedocumented in this encounter
--- OUTSIDE RECORDS SUMMARY | 2024-09-08 15:11 | XMS_ITS | Encounter Summary ---
Author Organization [employer] Address [address] [place] [address] Care Team Providers Care Building Inspector Name Role Phone Unavailable Primary Care Provider Unavailabl e Encounter Details Date Type Department Care Team (Late st Contact Info) Description 05/14/2019 Transcribed Document [facility] Family Medicine [facility] [place] [address] ProviderLexi MD [address] [place] [address] Social History Tobacco Use Types Packs/Day [...] Conversion Note - Historical ProviderMD - 05/14/2019 8:00 AM BULL RIVETER Pain Assessment Entered On: 05/14/2019 11:33 EST Performed On: 05/14/2019 6:46 EST by Rach Red RN Intervention Information: traMADol Performed by BORIS OVALLE, Foot Press Operator-Nursing on 05/14/2019 05:46:00 EST traMADol,50mg Oral Pain Assessment Pain Assessment : Follow-up assessment Pain Scale Goal : 4 Pain Scale Used : 0-10 Scale Rach Red RN - 05/14/2019 11:33 EST Pain Scale Intensity : 3 Rach Red RN - 05/14/2019 11:33 EST Image 4 - Images currently included in the form version of this document have not been included in the text rendition version of the form. documented in this encounter Plan of Treatment Not on file documented as of this encounter Visit Diagnoses Not on filedocumented in this encounter
--- OUTSIDE RECORDS SUMMARY | 2024-09-08 15:11 | XMS_ITS | Referral Summary ---
Author Organization [employer] Address [address] [place], [place] [id number] Care Team Providers Care Administrative Services Specialist Name Role Phone Unavailable Primary Care Provider Unavailabl e Social History Tobacco Use Types Packs/Day Years Used Date Smoking Tobacco: Never Assessed Comments Unknown Sex and Gender Information Value Date Recorded Sex Assigned at Female 09/14/2021 4:50 PM CDT Legal Sex Female 6:54 PM CDT Gender Identity Female 09/14/2021 4:50 PM CDT Sexual Orientation Not on file Plan of Treatment Not on file
--- OUTSIDE RECORDS SUMMARY | 2024-09-08 15:11 | XMS_ITS | Encounter Summary ---
Author Organization [employer] Address [address] [place] [address] Care Team Providers Care Debt Counselor Name Role Phone Unavailable Primary Care Provider Unavailabl e Encounter Details Date Type Department Care Team (Late st Contact Info) Description 05/12/2019 Transcribed Document [facility] [place] [facility] [place] [address] ProviderLexi MD [address] [place] [address] Social History Tobacco Use Types Packs/Day Years Used Date Smoking Tobacco: Never Assessed Comments Unknown Sex and Gender Information Value Date Recorded Sex Assigned at Female 09/14/2021 4:50 PM CDT Legal Sex Female 6:54 PM CDT Gender Identity Female 09/14/2021 4:50 PM CDT Sexual Orientation Not on file documented as of this encounter Miscellaneous Notes * Cerner Conversion Note - Lexi ProviderMD - 05/12/2019 3:07 PM FARMWORKER DAIRY Treatment Intervention, PT Entered On: 05/15/2019 10:15 EST Performed On: 05/15/2019 9:03 EST by MARIELOS HUFFMAN, SUPERVISOR CARTOGRAPHY General Information, PT Visit Type, PT : Treatment Note Patient Orders : Order Date Order Ordering 05/12/2019 12:54 PT Evaluation and Treatment Ordered By: ROSIO JUDD MD-ORT 05/12/2019 12:54 PT Treatment Instructions Ordered By: ROSIO JUDD MD-ORT 05/12/2019 12:54 PT Treatment Instructions Ordered By: ROSIO JUDD MD-ORT 05/12/2019 12:54 PT Treatment Instructions Ordered By: ROSIO JUDD MD-ORT 05/12/2019 12:54 PT Treatment Instructions Ordered By: ROSIO JUDD MD-ORT 05/12/2019 12:54 PT Treatment Instructions Ordered By: ROSIO JUDD MD-ORT 05/12/2019 14:34 Consult to Physical Therapy Ordered By: QIAN WASHBURN PAC 05/12/2019 15:07 PT Additional Treatment Ordered By: WILIAN KENNEDY, PT Active Diagnoses : No Qualifying Diagnoses Therapy Diagnosis, PT : aftercare following R ATHA Admission Date : 05/13/2019 09:44 Personal Devices : Personal Devices Dentures, upper, Dentures, lower Assistive Devices : Assistive Devices No Devices Recorded Precautions in Place : Fall prevention measures, high risk MARIELOS HUFFMAN, SUPERVISOR CARTOGRAPHY - 05/15/2019 10:01 EST General Status Patient Received Status : Long sitting in bed, Bed alarm activated, Other: 3L O2 via nasal cannula, needs in reach Treatment Start Time : 05/15/2019 8:40 EST Patient Left Status : Up in chair, Chair alarm activated, RN/PCT informed, All needs met and within reach, Other: 3L O2 via nasal cannula, SCUDS RN/PCT Informed Comment : KOBE heart pt for therapy session Treatment End Time : 05/15/2019 9:03 EST Treatment Time : 23 Minute(s) MARIELOS HUFFMAN PTA - 05/15/2019 10:01 EST Edu Topics Physical Therapy Education Grid Bed Mobility Training : Verbalizes understanding, Returns demonstration Home Program/Exercises : Verbalizes understanding, Returns demonstration Safety : Verbalizes understanding, Returns demonstration Therapeutic Exercises : Verbalizes understanding, Returns demonstration Transfer Training : Verbalizes understanding, Returns demonstration Use of Assistive Device : Returns demonstration, Verbalizes understanding MARIELOS HUFFMAN PTA - 05/15/2019 10:01 EST Plan of Care, PT PT Tx Plan/Goals Established w Patient : Yes MARIELOS HUFFMAN PTA - 05/15/2019 10:01 EST Assisted Goals Other PT LTG Grid Goal #1 [...] A to access home. (IF D/C HOME) Date to Meet : 05/15/2019 EST 05/15/2019 EST 05/15/2019 EST 05/15/2019 EST Goal Status : Progressing, continue Goal met Goal met Initial goal Date Met : 05/14/2019 EST 05/13/2019 EST Comment : likely DC to rehab setting per CM today MARIELOS HUFFMAN, SUPERVISOR CARTOGRAPHY - 05/15/2019 10:01 EST MARIELOS HUFFMAN, SUPERVISOR CARTOGRAPHY - 05/15/2019 10:01 EST MARIELOS HUFFMAN, SUPERVISOR CARTOGRAPHY - 05/15/2019 10:01 EST MARIELOS HUFFMAN, SUPERVISOR CARTOGRAPHY - 05/15/2019 10:01 EST Treatment Note Subjective Comment : Pt agreeable to physical therapy. Patient's Response to Treatment : Good. Additional Objective Information : - sup to sit mod I - EOB to stand CGA with RWx - cues for proper hand placement - stand pivot to sit in chair CGA with RWx - pt participated in BLE ther ex while UIC - BLE ther ex x20 AROM: long arch quads, seated heel slides, seated marching, ankle pumps, quad set, gluteal set, sitting hip abd, short arch quads, straight leg raises - cues for proper return of exercises - pt educated on safety awareness, verbalized understanding Ther Ex: 23 minutes Assessment : Pt continues to do well with LE exercises with minimal c/o pain. She works hard with therapy. Plan for Treatment : Cont POC. MARIELOS HUFFMAN, SUPERVISOR CARTOGRAPHY - 05/15/2019 10:01 EST Pain Assessment Pain Scaled Used : FACES Pain Score Pre-Intervention : 4 MARIELOS HUFFMAN, SUPERVISOR CARTOGRAPHY - 05/15/2019 10:01 EST Image 1 - Images currently included in the form version of this document have not been included in the text rendition version of the form. [place] PT Charges SUPERVISOR CARTOGRAPHY PT Therap. Exercise 15 min-SUPERVISOR CARTOGRAPHY : 2 MARIELOS HUFFMAN, SUPERVISOR CARTOGRAPHY - 05/15/2019 10:01 EST documented in this encounter Plan of Treatment Not on file documented as of this encounter Visit Diagnoses Not on filedocumented in this encounter
--- OUTSIDE RECORDS SUMMARY | 2024-09-08 15:11 | XMS_ITS | Encounter Summary ---
Author Organization [employer] Address [address] [place] [address] Care Team Providers Care Stock Worker Name Role Phone Unavailable Primary Care Provider Unavailabl e Encounter Details Date Type Department Care Team (Late st Contact Info) Description 05/13/2019 Transcribed Document [facility] Family Medicine [facility] [place] [address] ProviderLexi MD [address] [place] [address] Social History Tobacco Use Types Packs/Day [...] Note - Historical ProviderMD - 05/13/2019 7:00 AM BAD CLOTH CHECKER Pain Assessment Entered On: 05/13/2019 7:52 EST Performed On: 05/13/2019 7:15 EST by Rach Red RN Intervention Information: acetaminophen Performed by BORIS OVALLE, Jig Mill Operator-Nursing on 05/13/2019 06:15:00 EST acetaminophen,1000mg Oral Pain Assessment Pain Assessment : Follow-up assessment Pain Scale Goal : 4 Pain Scale Used : 0-10 Scale Rach Red RN - 05/13/2019 7:52 EST Pain Scale Intensity : 4 Rach Red RN - 05/13/2019 7:52 EST Image 4 - Images currently included in the form version of this document have not been included in the text rendition version of the form. documented in this encounter Plan of Treatment Not on file documented as of this encounter Visit Diagnoses Not on filedocumented in this encounter
--- OUTSIDE RECORDS SUMMARY | 2024-09-08 15:11 | XMS_ITS | Encounter Summary ---
Author Organization [employer] Address [address] [place] [address] Care Team Providers Care Interstate Bus Driver Name Role Phone Unavailable Primary Care Provider Unavailabl e Encounter Details Date Type Department Care Team (Late st Contact Info) Description 05/12/2019 Transcribed Document [facility] Family Medicine [facility] [place] [address] ProviderLexi MD [address] [place] [address] Social History Tobacco Use Types Packs/Day [...] - Historical ProviderMD - 05/12/2019 12:53 PM TRAM DRIVER Evaluation, Occupational Therapy Entered On: 05/12/2019 14:47 EST Performed On: 05/12/2019 14:14 EST by ESPERANZA REYNA OTR/L General Information, OT Visit Type, OT : Initial evaluation Patient Orders : Order Date Order Ordering 05/12/2019 12:54 OT Evaluation and Treatment Ordered By: ROSIO JUDD MD-ORT 05/12/2019 12:54 OT Treatment Instructions Ordered By: ROSIO JUDD MD-ORT Active Diagnoses : No Qualifying Diagnoses Therapy Diagnosis, OT : reduced mobility Admission Date : 05/12/2019 04:49 Assisted by, OT : Physical Therapist Personal Devices : Personal Devices Dentures, upper, Dentures, lower Assistive Devices : Assistive Devices No Devices Recorded Precautions in Place : Fall prevention measures ESPERANZA REYNA OTR/Brittany - 05/12/2019 14:33 EST General Status Patient Received Status : Long sitting in bed, Bed alarm activated, HOB elevated Treatment Start Time : 05/12/2019 14:14 EST Patient Left Status : Up in chair, Chair alarm activated, RN/PCT informed, Family/Visitors at bedside, Communication board completed, All needs met and within reach RN/PCT Informed Comment : nursing ok'd tx. id and verified. Treatment End Time : 05/12/2019 14:31 EST Treatment Time : 17 Minute(s) ESPERANZA REYNA OTR/Brittany - 05/12/2019 14:33 EST History and Environment, OT Living Situation, Therapy : Home Patient Lives With : Alone Persons Assisting Patient at Home : Sibling(s) Professional Skilled Services : None Persons Providing Information : Patient Home Equipment, Therapy : Walker Walker : Walker, front wheel Home Setup : One story Stairs : Yes Stair Location(s) : Outside Outside Stairs, Number of Steps : 4 Railing Outside : Yes Outside Railing Position : Right, going up ESPERANZA REYNA OTR/Brittany - 05/12/2019 14:33 EST Prior LOF Bathing, OT : Independent Prior LOF Bed Mobility : Independent Prior LOF Upper Body Dressing, OT : Independent Prior LOF Lower Body Dressing, OT : Independent Prior LOF Toileting : Independent Prior LOF Transfer : Independent Prior LOF Grooming, OT : Independent Prior LOF for IADLs, OT : Independent ESPERANZA REYNA OTR/Brittany - 05/12/2019 14:33 EST Prior LOF Assist with ADL Comment : Pt and family members report that patient has had multiple recent falls at home. Family member states that patient is a hoarder and this is what is contributing her falls. ESPERANZA REYNA OTR/Brittany - 05/12/2019 14:33 EST Upper Extremity Upper Extremity Dominance : Right Right UE Active ROM : WFL Right UE Strength : WFL Left UE Active ROM : WFL Left UE Strength : WFL Upper Extremity Strength Impaired : No Fine Motor Coordination Impaired : No ESPERANZA REYNA OTR/Brittany - 05/12/2019 14:33 EST Self Care/Home Management, OT Self Feeding Assist Level, OT : Independent, complete Grooming Assist Level, OT : Independent, complete Bathing Assist Level, OT : Supervision or set-up Upper Body Dressing Assist Level, OT : Independent, complete Lower Body Dressing Assist Level, OT : Assist, minimal Toileting Assist Level : Assist, minimal Toileting Device : Commode, bedside Toilet Transfer Assist Level : Assist, minimal Toilet Transfer Device : Belt, gait, Commode, bedside, Walker, rolling ESPERANZA REYNA OTR/Brittany - 05/12/2019 14:33 EST Mobility Device/Prosthesis/Wt Bearing Weight Bearing Status Maintained : Yes Weight Bearing Status : Partial right lower extremity Functional Mobility Device : Gait belt, Walker, front wheel Functional Mobility with Brace/Splint : No ESPERANZA REYNA OTR/Brittany Dong 05/12/2019 14:33 EST Functional Mobility Mobility Grid Supine to Sit : Rehab Minimal assistance Sit to Stand : Rehab Minimal assistance Bed to Chair : Rehab Minimal assistance Stand to Sit : Rehab Minimal assistance ESPERANZA REYNA OTR/Brittany - 05/12/2019 14:33 EST AM PAC Daily Activity Putting On/Taking Off Lower Body Clothes : A little Bathing (Washing, Rinsing, Drying) : A little Toileting Includes Toilet, Bedpan, Urinal : A little Putting On/Taking Off Upper Clothing : None Taking Care of Grooming : None Eating Meals : None AM-PAC Daily Activity Raw Score : 21 ESPERANZA REYNA OTR/Brittany - 05/12/2019 14:33 EST Image 3 - Images currently included in the form version of this document have not been included in the text rendition version of the form. Activity Tolerance, OT Activity Comment : GOOD ESPERANZA REYNA OTR/Brittany - 05/12/2019 14:33 EST Cognition Assessment, OT Orientation : Oriented x 4 ESPERANZA REYNA OTR/Brittany Dong 05/12/2019 14:33 EST Education OT Occupational Therapy Education Grid Activity of Daily Living Training : Verbalizes understanding, Returns demonstration, Needs further teaching Functional Mobility Training : Verbalizes understanding, Returns demonstration, Needs further teaching Role of Occupational Therapy : Verbalizes understanding ESPERANZA REYNA OTR/Brittany Dong 05/12/2019 14:33 EST Indication Assessment, OT Occupational Therapy Indicated : Yes Problem List, OT : Impaired, bed mobility, Impaired, activities daily living, Impaired functional mobility, Impaired, standing balance, Impaired, transfers Potential Barriers, OT : None evident Rehabilitation Potential, OT : Good ESPERANZA REYNA OTR/Brittany - 05/12/2019 14:33 EST Plan of Care, OT OT Tx Plan/Goals Established w Patient : Yes OT Frequency Rehab : Other: 3-5 x week OT Duration Rehab : Seven Days OT Treatments Planned : Activities of daily living, Functional mobility training, Safety education, Therapeutic activities, Therapeutic exercises Plan of Care Comment, OT : see OT POC ESPERANZA REYNA OTR/Brittany - 05/12/2019 14:33 EST Rim Turning Finisher Goals, OT Other LTG Grid Goal #1 Goal #2 Goal : Pt will complete ADL transfer with CGA, RW level. Pt will complete LB self care task with CGA, AE prn. Date to Meet : 05/18/2019 EST 05/18/2019 EST Goal Status : Initial goal Initial goal ESPERANZA REYNA OTR/L - 05/12/2019 14:33 EST ESPERANZA REYNA OTR/Brittany - 05/12/2019 14:33 EST Treatment Note Subjective Comment : pt ok'd tx. Additional Objective Information : EVAL = 8 min ADL = 9 min Pt educated on ADL transfers at RW level. Assessment : Pt is min assist with ADL transfers at RW level and LB self care tasks. Pt with recent history of multiple falls. Pt's family member reports patient is a hoarder and is a contributing factor to her falls. Pt also lives alone and has stairs to get into her house. Pt to benefit from skilled OT services during in-patient stay. Pt to also benefit from continued skilled OT services at rehab facility. Plan for Treatment : 3-5 x week. ESPERANZA REYNA OTR/Brittany - 05/12/2019 14:33 EST Pain Assessment Pain Scaled Used : 0-10 Pain scale Pain Score Pre-Intervention : 7 Pain Score During-Intervention : 7 Pain Score Post-Intervention. : 7 Location : Hip, right Pain Comment : nurse aware ESPERANZA REYNA OTR/Brittany - 05/12/2019 14:33 EST Image 1 - Images currently included in the form version of this document have not been included in the text rendition version of the form. Anticipated Discharge Needs, OT/PT Anticipated Discharge to : Other: to be determined. Recommend Continued Therapy at Discharge : Yes ESPERANZA REYNA OTR/L - 05/12/2019 14:33 EST [place] OT Charges OT Selfcare/Hm Mgmt Ea 15 Min : 1 OT Eval Low Complexity : 1 ESPERANZA REYNA OTR/L - 05/12/2019 14:33 EST Electronically signed by [facility], [facility] Conversion Physics Professor Cerner at 07/02/2022 4:58 PM CDT documented in this encounter Plan of Treatment Not on file documented as of this encounter Visit Diagnoses Not on filedocumented in this encounter
--- OUTSIDE RECORDS SUMMARY | 2024-09-08 15:11 | XMS_ITS | Encounter Summary ---
Author Organization [employer] Address [address] [place] [address] Care Team Providers Care Multimedia Assistant Name Role Phone Unavailable Primary Care Provider Unavailabl e Encounter Details Date Type Department Care Team (Late st Contact Info) Description 05/12/2019 Transcribed Document [facility] [place] Family Medicine [facility] [place] [address] ProviderLexi MD [facility] [place] [address] Social History Tobacco Use Types [...] Conversion Note - Historical Provider, - 05/12/2019 8:30 AM WOMEN'S ACTIVITIES ADVISER Event Note Entered On: 05/12/2019 9:11 EST Performed On: 05/12/2019 8:30 EST by Cecile Wright RN Event Note Event Date/Time : 05/12/2019 8:30 EST Event Location : Other: pre-op Event Details : Other: u/a Cecile Wright RN - 05/12/2019 9:10 EST Description of Event : Spoke with CLIFFORD Bhagat regarding pt urine from [facility] with positive urine culture, growth suggesting contamination. Pt denies being symptomatic at this time. Olayinka states a repeat u/a is not necessary at this time. eCcile Wright RN - 05/12/2019 13:46 EST Electronically signed by Angel[facility] Conversion Deckhand Oyster Dredge Cerner at 07/02/2022 5:17 PM CDT documented in this encounter Plan of Treatment Not on file documented as of this encounter Visit Diagnoses Not on filedocumented in this encounter
--- OUTSIDE RECORDS SUMMARY | 2024-09-08 15:11 | XMS_ITS | Encounter Summary ---
Author Organization [employer] Address [address] [place], [place] [id number] Care Team Providers Care Housekeeper [facility] Name Role Phone Unavailable Primary Care Provider Unavailabl e Encounter Details Date Type Department Care Team (Late st Contact Info) Description 05/04/2019 Transcribed Document [facility] [place] [facility] [place] [address] ProviderLexi MD [facility] [place], [place] [id number] Social History Tobacco Use Types Packs/Day Years [...] Conversion Note - Historical ProviderMD - 05/04/2019 1:01 PM CO FOUNDER AND CEO Orthopedic Nurse Navigator Entered On: 05/04/2019 13:02 EST Performed On: 05/04/2019 13:01 EST by Alyssia Ashraf Nurse consumer analyst Nurse Navigator Assessment Joint Navigator Assessment Note : Attempted to call patient, message left. Alyssia Ashraf Nurse RN - 05/04/2019 13:01 EST documented in this encounter Plan of Treatment Not on file documented as of this encounter Visit Diagnoses Not on filedocumented in this encounter
--- OUTSIDE RECORDS SUMMARY | 2024-09-08 15:11 | XMS_ITS | Encounter Summary ---
Author Organization [employer] Address [address] [place] [address] Care Team Providers Care Drying Machine Back Tender Name Role Phone Unavailable Primary Care Provider Unavailabl e Encounter Details Date Type Department Care Team (Late st Contact Info) Description 05/12/2019 Transcribed Document [facility] [place] [facility] [place] [address] ProviderLexi MD [address] [place] [address] Social History Tobacco Use Types Packs/Day [...] Conversion Note - Lexi ProviderMD - 05/12/2019 10:29 AM PETROLEUM PRODUCTION ENGINEER [facility] [place]Op Summary Primary Physician: ROSIO JUDD MD-ORT Finalized Date/Time: 05/19/19 10:37:26 Pt. Name: TAY FONSECA D.O.B./Sex: 1945 Female Med Rec #: [id number] Physician: ROSIO JUDD MD-ORT Financial #: [id number] Pt. Type: I Room/Bed: [facility]/1 Admit/Disch: 05/13/19 09:44:00 - 05/16/19 14:56:00 Institution[place] [facility] PreOp Case Times Entry 1 In Preop 05/12/19 07:15:00 Ready for Holding n/a Room Patient Ready for 05/12/19 09:00:00 Surgery Patient Out of Preop 05/12/19 09:50:00 Patient Out of n/a Holding Room Last Modified By: ROS HUNTER 05/19/19 10:37:25 SJE PreOp Case Times Audit 05/19/19 10:37:25 Casing Material Weigher: [id number] Modifier: CATLETDD <+> 1 Patient Out of Preop Finalized By: ROS HUNTER Document Signatures Signed By: ROS HUNTER 05/19/19 10:37 Electronically signed by Angelika [facility] Conversion Evidence Specialist Cerner at 07/02/2022 4:50 PM CDT documented in this encounter Plan of Treatment Not on file documented as of this encounter Visit Diagnoses Not on filedocumented in this encounter
--- OUTSIDE RECORDS SUMMARY | 2024-09-08 15:11 | XMS_ITS | Encounter Summary ---
Author Organization [employer] Address [address] [place], [place] [id number] Care Team Providers Care Head Of Commission Department Name Role Phone Unavailable Primary Care Provider Unavailabl e Encounter Details Date Type Department Care Team (Late st Contact Info) Description 05/15/2019 Transcribed Document [facility] [place] [facility] [place] [address] ProviderLexi MD [facility] [place] [address] Social History Tobacco Use Types [...] Note - Historical ProviderMD - 05/15/2019 5:00 PM QUICK SERVICE TECHNICIAN Chart Check - Review Order Profile Entered On: 05/15/2019 17:41 EST Performed On: 05/15/2019 17:00 EST by June Green RN Chart Check Powerplans Initiated/Discontinued as Appropriate : Yes All Active Orders Reviewed : Yes June Green RN - 05/15/2019 17:41 EST documented in this encounter Plan of Treatment Not on file documented as of this encounter Visit Diagnoses Not on filedocumented in this encounter
--- OUTSIDE RECORDS SUMMARY | 2024-09-08 15:11 | XMS_ITS | Encounter Summary ---
Author Organization [employer] Address [address] [place] [address] Care Team Providers Care Stitcher Utility Name Role Phone Unavailable Primary Care Provider Unavailabl e Encounter Details Date Type Department Care Team (Late st Contact Info) Description 05/14/2019 Transcribed Document [facility] [place] [facility] [place] [address] ProviderLexi MD [facility] [place] [address] Social History Tobacco Use Types [...] Note - Historical ProviderMD - 05/14/2019 2:00 PM HUMAN CAPITAL MANAGER Pain Assessment Entered On: 05/14/2019 14:15 EST Performed On: 05/14/2019 14:13 EST by Rach Red RN Intervention Information: traMADol Performed by Rach Red RN on 05/14/2019 13:13:00 EST traMADol,50mg Oral Pain Assessment Pain Assessment : Follow-up assessment Pain Scale Goal : 4 Pain Scale Used : 0-10 Scale Rach Red RN - 05/14/2019 14:15 EST Pain Scale Intensity : 2 Rach Red RN - 05/14/2019 14:15 EST Image 4 - Images currently included in the form version of this document have not been included in the text rendition version of the form. documented in this encounter Plan of Treatment Not on file documented as of this encounter Visit Diagnoses Not on filedocumented in this encounter
--- OUTSIDE RECORDS SUMMARY | 2024-09-08 15:11 | XMS_ITS | Encounter Summary ---
Author Organization [employer] Address [address] [place] [address] Care Team Providers Care Rice Farmer Name Role Phone Unavailable Primary Care Provider Unavailabl e Encounter Details Date Type Department Care Team (Late st Contact Info) Description 05/14/2019 Transcribed Document [facility] [place] [facility] [place] [address] ProviderLexi MD [facility] [place] [address] Social History Tobacco Use Types [...] Note - Historical ProviderMD - 05/14/2019 8:00 PM HOURLY SIGN LANGUAGE INTERPRETER Pain Assessment Entered On: 05/14/2019 22:55 EST Performed On: 05/14/2019 22:48 EST by BORIS OVALLE, Slip Tender-Nursing Intervention Information: traMADol Performed by BORIS OVALLE, Slip Tender-Nursing on 05/14/2019 21:48:00 EST traMADol,50mg Oral Pain Assessment Pain Assessment : Follow-up assessment Pain Scale Goal : 4 Pain Scale Used : FACES Pain Intervention, Drug : Medicated Pain Improved by Intervention : Yes BORIS OVALLE, Slip Tender-Nursing - 05/14/2019 22:54 EST Pain Scale Intensity : 3 BORIS OVALLE, Slip Tender-Nursing - 05/14/2019 22:54 EST Image 4 - Images currently included in the form version of this document have not been included in the text rendition version of the form. documented in this encounter Plan of Treatment Not on file documented as of this encounter Visit Diagnoses Not on filedocumented in this encounter
--- OUTSIDE RECORDS SUMMARY | 2024-09-08 15:11 | XMS_ITS | Encounter Summary ---
Author Organization [employer] Address [address] [place] [address] Care Team Providers Care Brownell Operator Name Role Phone Unavailable Primary Care Provider Unavailabl e Encounter Details Date Type Department Care Team (Late st Contact Info) Description 04/27/2019 Transcribed Document [facility] [place] [facility] [place] [address] ProviderLexi MD [address] [place] [address] Social History Tobacco Use Types Packs/Day [...] Cerner Conversion Note - Lexi ProviderMD - 04/27/2019 6:29 AM BROADCAST ENGINEER Total Joints Assessment Entered On: 04/27/2019 6:30 EST Performed On: 04/27/2019 6:29 EST by Alyssia Ashraf RN Surgical Services JR. RICHARD Hip Survey 1. Going up or down stairs : Moderate 2. Walking on an uneven surface : Severe 3. Rising from sitting : Severe 4. Bending to floor/flower picker an object : Severe 5. Lying in bed (turning over, maintaining hip position) : Severe 6. Sitting : Moderate RICHARD PENG Raw Score (ref) : 16 Alyssia Ashraf RN Surgical Services - 04/27/2019 6:29 EST PROMIS Global Health Scale In general, would you say your health is: : Good In general, would you say your quality of life is: : Good In general, how would you rate your physical health? : Good In general, how would you rate your mental health, including your mood and your ability to think? : Very good In general, how would you rate your satisfaction with your social activities and relationships? : Very good In general, please rate how well you carry out your usual social activities and roles. (This includes activities at home, at work and in your community, and responsibilities as a parent, child, spouse, employee, friend, etc.) : Very good To what extent are you able to carry out your everyday physical activities such as walking, climbing stairs, carrying groceries, or moving a chair? : A little How often have you been bothered by emotional problems such as feeling anxious, depressed or irritable? : Sometimes How would you rate your fatigue on average? : Moderate How would you rate your pain on average? : 7 Global Physical Health Score (ref) : 10 Global Mental Health Score (ref) : 14 Alyssia Ashraf RN Surgical Services - 04/27/2019 6:29 EST documented in this encounter Plan of Treatment Not on file documented as of this encounter Visit Diagnoses Not on filedocumented in this encounter
--- OUTSIDE RECORDS SUMMARY | 2024-09-08 15:11 | XMS_ITS | Encounter Summary ---
Author Organization [employer] Address [address] [place] [address] Care Team Providers Care Sanding Machine Operator Name Role Phone Unavailable Primary Care Provider Unavailabl e Encounter Details Date Type Department Care Team (Late st Contact Info) Description 05/12/2019 Transcribed Document [facility] [place] [facility] [place] [address] [place] [address] Social History Tobacco Use Types [...] Conversion Note - Historical ProviderMD - 05/12/2019 8:17 AM CORPORATE WELLNESS COORDINATOR Pre Procedure Adult Entered On: 05/12/2019 8:24 EST Performed On: 05/12/2019 8:17 EST by Cecile Wright RN Height and Weight, Clinical Dosing Height Source : Stated Height Entry Format : [place] Height, Feet : 5 ft(Converted to: 152 cm, 60 Inch) Height, Inches : 2 Inch(Converted to: 0 ft 2 Inch, 5.08 cm) Clinical Height : 157.48 cm Weight Source : Standing scale Weight Entry Format : [place]ud[place]eth Clinical Dosing Weight : 107.27 kg Weight, Pounds : 236 lb Body Surface Area (BSA) : 2.05 m2 Body Mass Index : 43.3 kg/m2 (>HHI) [place] Body Weight : 50 kg Cecile Wright RN - 05/12/2019 8:17 EST Health Histories Smoking Status : Former smoker, quit more than 30 days ago Smokeless Tobacco Status : Never Cecile Wright RN - 05/12/2019 8:17 EST Social History (As Of: 05/12/2019 08:24:35 EST) Tobacco: Former smoker, quit more than 30 days ago Smoking Status. Never Smokeless Tobacco Status. Last Used: 1997. (Last Updated: 04/24/2019 12:06:16 EST by Nuvia Moseley Rn) Alcohol: Alcohol Use History No. Use in Last 12 Months: No. (Last Updated: 04/24/2019 12:06:22 EST by Nuvia Moseley Rn) Substance Abuse: Drug Use Hx: No. Use in Last 12 Months: No. (Last Updated: 04/24/2019 12:06:28 EST by Nuvia Moseley Rn) Infectious Disease History Physical contact outside [place] in the last 30 days : No Infectious Disease History : Influenza, Measles Isolation Needed : Standard Active Surveillance Screen Assessment : Patient does not meet any of above criteria Active Surveillance Screen Negative : Yes Childhood Vaccinations Up to Date : N/A Tuberculosis Symptoms : None Cecile Wright RN - 05/12/2019 8:17 EST Anesthesia/Transfusion History Family History of Anesthesia Reaction : No prior transfusion(s) Blood Transfusion Acceptable to Patient : Yes Transfusion History : Prior anesthesia without reaction Family History of Anesthesia Reaction : None Cecile Wright RN - 05/12/2019 8:17 EST Functional Assessment Living Situation : Home Patient Lives With : Alone Persons Assisting Patient at Home : Sibling(s) Current Daily Living Assistance : None Sensory Deficits : None Mobility Assistance Prior to Admission : Independent Current Home Treatments : Blood glucose monitoring Home Equipment : Walker Walker : Walker, standard Professional Skilled Services : None Special Services and Community Resources : None Cecile Wright RN - 05/12/2019 8:17 EST [place] Suicide Severity Rating Scale (C-SSRS) CSSRS Past Month Wish to be : No CSSRS Past Month Suicidal Thoughts : No CSSRS Lifetime Suicide Behavior : No Suicide Severity Rating Score : 0 Suicide Severity Rating : No Additional Care Required at this time Thoughts of Harming/Killing Others : No Cecile Wright RN - 05/12/2019 8:17 EST Psychosocial History Do You Have a History of the Following? : Anxiety Currently in Unsafe Situation : No Cecile Wright RN - 05/12/2019 8:17 EST Advance Directive Patient has Advance Directive *Q : No, patient refuses Advance Directive information Cecile Wright RN - 05/12/2019 8:17 EST Spiritual/Cultural Needs Any Spiritual/Cultural Needs or Requests : Yes Latter Day Preference : Baptism Cecile Wright RN - 05/12/2019 8:17 EST Teaching/Learning Assessment Barriers To Learning : None evident Individuals Taught : Patient, Sibling Readiness to Learn : Cooperative Baseline Knowledge of Topic : Good Readiness to Learn : Explanation Learning Style Preferences Patient : Printed materials, Verbal explanation Learning Style Preferences Family : Printed materials, Verbal explanation Cecile Wright RN - 05/12/2019 8:17 EST General Info Chief Complaint : right hip pain Cecile Wright RN - 05/12/2019 9:10 EST Preferred Name : Dominga Arrived From : Home Mode of Arrival on Unit : Ambulatory Patient Arrival Date/Time : 05/12/2019 7:15 EST Legal Guardian : Sibling Want Family/Rep/Phys Notified of Admit : No Emergency Contact #1 : Roxy Emergency Contact #1 Emergency Contact #1 Relationship : sister Emergency Contact #2 : . Emergency Contact #2 Phone Number : . Emergency Contact #2 Relationship : . Information Obtained From : Patient Primary Language : Ukrainian Preferred Communication Mode : Verbal Communication Barrier : None Objects to Sharing Info w Family : No Currently Lactating : No Status : N/A Clinical Trials Participant *Q : None CTP, None *Q : Yes Cecile Wright RN - 05/12/2019 8:17 EST Sleep Apnea Risk Assmt Hx of [...] Sleep Apnea Risk Level Score : 4 Cecile Wright RN - 05/12/2019 8:17 EST Jair Scale Jair Sensory Perception : No impairment Jair Moisture : Rarely moist Jair Activity : Walks occasionally Jair Mobility : Slightly limited Jair Nutrition : Adequate Jair Friction and Shear : No apparent problem Jair Score : 20 Cecile Wright RN - 05/12/2019 8:17 EST Pain Assessment Pain Assessment : Initial assessment Pain Scale Goal : 4 Pain Scale Used : 0-10 Scale Location : Hip, right Onset : Constant Quality : Sharp Pain Radiation : No Cecile Wright RN - 05/12/2019 8:17 EST Fall Risk Scales ABCs Fall Injury Risk Identification : None Injury Moderate to High Risk Interventions : Patient room close to nurses station, Supervise toileting as indicated, Toileting schedule CAI Hx Falls Immediate/Within 3 Months : Yes Ayala Secondary Diagnosis : No AYALA Use of Ambulatory Aid : None AYALA IV Therapy or IV Access : Yes Ayala Gait/Transferring : Normal, bedrest, immobile Cai Mental Status : Oriented to own ability Cai Fall Risk Score : 45 CAI Fall Scale Risk Level : 25-45 Medium Risk [place] Fall Interventions : Adequate lighting, Assistive devices within reach, Bed in low [...] Fall Moderate to High Risk Interventions : Patient room close to nurses station, Supervise toileting as indicated, Toileting schedule Cecile Wright RN - 05/12/2019 8:17 EST Fall Risk Education Grid Assistive Equipment Use : Verbalizes understanding Bed Height/Stabilization : Verbalizes understanding Call light use : Verbalizes understanding Door Open : Verbalizes understanding Environmental Management : Verbalizes understanding Fall Prevention in the Home : Verbalizes understanding Home Risk Assessment : Verbalizes understanding Nonskid Footwear Use : Verbalizes understanding Notification of Staff When Leaving : Verbalizes understanding Personal Article Availability : Verbalizes understanding Prevention Responsibility Family : Verbalizes understanding Prevention Responsibility Patient : Verbalizes understanding Risk Alert Methods : Verbalizes understanding Risk Factors : Verbalizes understanding Safety Aids : Verbalizes understanding Siderails use/risks : Verbalizes understanding Staff Responsiveness : Verbalizes understanding Symptom Reporting : Verbalizes understanding Toileting Schedule : Verbalizes understanding Transfer/Mobility Techniques : Verbalizes understanding Wait for Assistance : Verbalizes understanding Cecile Wright RN - 05/12/2019 8:17 EST Barriers to Learning : None evident Individuals Taught : Patient, Sibling Readiness to Learn : Cooperative Baseline Knowledge of Topic : Good Teaching Method : Explanation Learning Style Preferences Family : Verbal explanation Learning Style Preferences Patient : Printed materials, Verbal explanation Teaching Evaluation : Returns demonstration, Verbalizes understanding Fall Risk Scale Calc Temp : 0 Cecile Wright RN - 05/12/2019 8:17 EST Education Topics, Day of Surgery DayofSurgery Education Grid Anesthesia/Sedation : Verbalizes understanding CHG Preoperative Bathing/Cloths : Verbalizes understanding Fall Risks : Verbalizes understanding Family Instructions : Verbalizes understanding Infection Control : Verbalizes understanding Infection Risks : Verbalizes understanding IV's : Verbalizes understanding Medication Instructions : Verbalizes understanding Pain Management : Verbalizes understanding Plan of Care : Verbalizes understanding Responsible Adult : Verbalizes understanding Cecile Wright RN - 05/12/2019 8:17 EST Valuables and Belongings Valuables and Belongings : Clothing, Personal devices, Personal items Clothing : Common streetwear Clothing Disposition : With family Personal Device Disposition : With family Personal Devices : Dentures, upper, Dentures, lower Personal Items : Baca, Cell phone, Credit cards, Purse, Wallet Personal Items Disposition : With family Cecile Wright RN - 05/12/2019 8:17 EST Pain Scale Intensity : 4 Cecile Wright RN - 05/12/2019 8:17 EST Image 4 - Images currently included in the form version of this document have not been included in the text rendition version of the form. [place] Coma [place] Best Motor Response : Obey commands [place] Best Verbal Response : Oriented Crystal Eye Opening Response : Spontaneous Crystal Coma Score : 15 Cecile Wright RN - 05/12/2019 8:17 EST Electronically signed by Angelika [facility] Conversion District Extension Service Agent Janesner at 07/02/2022 5:04 PM CDT documented in this encounter Plan of Treatment Not on file documented as of this encounter Visit Diagnoses Not on filedocumented in this encounter
--- OUTSIDE RECORDS SUMMARY | 2024-09-08 15:11 | XMS_ITS | Encounter Summary ---
Author Organization [employer] Address [address] [place] [address] Care Team Providers Care Patent Leather Sorter Name Role Phone Unavailable Primary Care Provider Unavailabl e Encounter Details Date Type Department Care Team (Late st Contact Info) Description 05/14/2019 Transcribed Document [facility] [place] [facility] [place] [address] ProviderLexi MD [address] [place] [address] Social History Tobacco Use Types Packs/Day [...] Conversion Note - Historical ProviderMD - 05/14/2019 1:00 PM PIPE FITTER SUPERVISOR Pain Assessment Entered On: 05/14/2019 14:16 EST Performed On: 05/14/2019 14:13 EST by Rach Red RN Intervention Information: acetaminophen Performed by Rach Red RN on 05/14/2019 13:13:00 EST acetaminophen,1000mg Oral Pain Assessment Pain Assessment : Follow-up assessment Pain Scale Goal : 4 Pain Scale Used : 0-10 Scale Rach Red RN - 05/14/2019 14:16 EST Pain Scale Intensity : 3 Rach Red RN - 05/14/2019 14:16 EST Image 4 - Images currently included in the form version of this document have not been included in the text rendition version of the form. documented in this encounter Plan of Treatment Not on file documented as of this encounter Visit Diagnoses Not on filedocumented in this encounter
--- OUTSIDE RECORDS SUMMARY | 2024-09-08 15:11 | XMS_ITS | Encounter Summary ---
Author Organization [employer] Address [address] [place] [address] Care Team Providers Care Orthopedic Brace Maker Name Role Phone Unavailable Primary Care Provider Unavailabl e Encounter Details Date Type Department Care Team (Late st Contact Info) Description 04/27/2019 Transcribed Document [facility] [place] [facility] [address] ProviderLexi MD [facility] [place], [place] [id number] Social History Tobacco Use Types Packs/Day Years Used Date Smoking Tobacco: Never Assessed Comments Unknown Sex and Gender Information Value Date Recorded Sex Assigned at Female 09/14/2021 4:50 PM CDT Legal Sex Female 6:54 PM CDT Gender Identity Female 09/14/2021 4:50 PM CDT Sexual Orientation Not on file documented as of this encounter Miscellaneous Notes * Cerner Conversion Note - Historical ProviderMD - 04/27/2019 6:29 AM SECOND RIDE FARE COLLECTOR Orthopedic Nurse Navigator Entered On: 04/27/2019 6:31 EST Performed On: 04/27/2019 6:29 EST by Alyssia Ashraf RN Surgical Services Orthopedic Nurse Navigator Assessment Does Patient Have a Walker? : No Patient Completed RAPT Score : 5 Joint Navigator Assessment Note : According to the RAPT Score, extended inpatient rehabilitaion needed. Pt indicates, fall, leg weakness, and no one at home. Pt is wanting to go to the [place]. Alyssia Ashraf RN Surgical Services - 04/27/2019 6:29 EST documented in this encounter Plan of Treatment Not on file documented as of this encounter Visit Diagnoses Not on filedocumented in this encounter
--- OUTSIDE RECORDS SUMMARY | 2024-09-08 15:11 | XMS_ITS | Encounter Summary ---
Author Organization [employer] Address [address] [place] [address] Care Team Providers Care Cutlet Maker Pork Name Role Phone Unavailable Primary Care Provider Unavailabl e Encounter Details Date Type Department Care Team (Late st Contact Info) Description 05/12/2019 Transcribed Document [facility] [place] [facility] [place] [address] ProviderLexi MD [facility] [place] [place] [address] Social History Tobacco Use Types [...] - Historical ProviderMD - 05/12/2019 12:53 PM CORRUGATOR Pain Assessment Entered On: 05/13/2019 7:53 EST Performed On: 05/13/2019 7:15 EST by Rach Red RN Intervention Information: oxyCODONE Performed by BORIS OVALLE, Hospital Cleaner-Nursing on 05/13/2019 06:15:00 EST oxyCODONE,10mg Oral,Pain (Severe 7-10) Pain Assessment Pain Assessment : Follow-up assessment [...]
--- OUTSIDE RECORDS SUMMARY | 2024-09-08 15:11 | XMS_ITS | Encounter Summary ---
Author Organization [employer] Address [address] [place] [address] Care Team Providers Care Ring Packer Name Role Phone Unavailable Primary Care Provider Unavailabl e Encounter Details Date Type Department Care Team (Late st Contact Info) Description 05/14/2019 Transcribed Document [facility] [place] [facility] [place] [address] ProviderLexi MD [facility] [place] [address] Social History Tobacco Use Types [...] Note - Historical ProviderMD - 05/14/2019 7:00 PM FIREWORKS MAKER Pain Assessment Entered On: 05/14/2019 22:54 EST Performed On: 05/14/2019 22:47 EST by BORIS OVALLE, [employer]rix Systems Administrator-Nursing Intervention Information: acetaminophen Performed by BORIS OVALLE, [employer]rix Systems Administrator-Nursing on 05/14/2019 21:47:00 EST acetaminophen,1000mg Oral Pain Assessment Pain Assessment : Follow-up assessment Pain Scale Goal : 4 Pain Scale Used : FACES Pain Intervention, Drug : Medicated Pain Improved by Intervention : Yes BORIS OVALLE, [employer]rix Systems Administrator-Nursing - 05/14/2019 22:54 EST Pain Scale Intensity : 3 BORIS OVALLE, [employer]rix Systems Administrator-Nursing - 05/14/2019 22:54 EST Image 4 - Images currently included in the form version of this document have not been included in the text rendition version of the form. documented in this encounter Plan of Treatment Not on file documented as of this encounter Visit Diagnoses Not on filedocumented in this encounter
--- OUTSIDE RECORDS SUMMARY | 2024-09-08 15:11 | XMS_ITS | Encounter Summary ---
Author Organization [employer] Address [address] [place] [id number] Care Team Providers Care Customer Service Representative Teacher Name Role Phone Unavailable Primary Care Provider Unavailabl e Encounter Details Date Type Department Care Team (Late st Contact Info) Description 05/12/2019 Transcribed Document [facility] [place] [facility] [place] [address] ProviderLexi MD [address] [place] [address] Social History Tobacco Use Types Packs/Day [...] - Historical ProviderMD - 05/12/2019 10:29 AM HOLLOCK MAKER KAYE Main OR PACU Summary Primary Physician: ROSIO JUDD MD-ORPatria Finalized Date/Time: 05/12/19 13:13:58 Pt. Name: TAY FONSECA D.O.B./Sex: 1945 Female Med Rec #: [id number] Physician: ROSIO JUDD MD-ORT Financial #: [id number] Pt. Type: O Room/Bed: [facility]2 Admit/Disch: 05/12/19 04:49:00 - Institution: [facility] OR PACU Case Times Entry 1 In PACU I 05/12/19 11:54:00 Ready for PACU 05/12/19 13:13:00 Discharge Discharge from PACU 05/12/19 13:13:00 I Last Modified By: JASPAL MARQUIS 05/12/19 13:13:46 SJRoni Main OR PACU Case Times Audit 05/12/19 13:13:46 Superintendent Gas Distribution: RAMON Modifier: YOELM <+> 1 Ready for PACU Discharge <+> 1 Discharge from PACU I Finalized By: JASPAL MARQUIS Document Signatures Signed By: JASPAL MARQUIS 05/12/19 13:13 Electronically signed by Angelika [facility] Conversion Eligibility Worker Cerner at 07/02/2022 5:03 PM CDT documented in this encounter Plan of Treatment Not on file documented as of this encounter Visit Diagnoses Not on filedocumented in this encounter
--- OUTSIDE RECORDS SUMMARY | 2024-09-08 15:11 | XMS_ITS | Encounter Summary ---
Author Organization [employer] Address [address] [place] [address] Care Team Providers Care Vacuum Caster Name Role Phone Unavailable Primary Care Provider Unavailabl e Encounter Details Date Type Department Care Team (Late st Contact Info) Description 05/12/2019 Transcribed Document [facility] [place] [facility] [place] [address] ProviderLexi MD [facility] [place] [address] Social History Tobacco Use Types [...] Conversion Note - Historical ProviderMD - 05/12/2019 5:06 PM SEO ENGINEER Initial Discharge Planning Entered On: 05/12/2019 17:08 EST Performed On: 05/12/2019 17:06 EST by SANDRA DEL ANGEL, Care Management-Wind Turbine Technician Initial Assessment I Previously Documented Living Environment : No qualifying data available. Living Situation : Home Patient Lives With : Alone Emergency Contact #1 : Roxy Emergency Contact #1 Emergency Contact #1 Relationship : sister Emergency Contact #2 : . Emergency Contact #2 Phone Number : . Emergency Contact #2 Relationship : . SANDRA DEL ANGEL, Care Management-Wind Turbine Technician - 05/12/2019 17:06 EST Narrative Note Narrative Note : Pt stated to Navigator, PASS staff, and myself that she must go to rehab at [place]. she lives alone, has stairs and no assistance and is 25 lb wt bearing.... her family member that was going to assist has cancer and will be starting chemo. no assistance at home now. Pt informed of out pt status and must meet medically indicated in pt stay for 3 nts and we will have IPAS to review and advise. SANDRA DEL ANGEL, Care Management-Wind Turbine Technician - 05/12/2019 17:06 EST Electronically signed by Angelika [facility] Conversion Outbound Sales Agent Cerner at 07/02/2022 5:10 PM CDT documented in this encounter Plan of Treatment Not on file documented as of this encounter Visit Diagnoses Not on filedocumented in this encounter
--- OUTSIDE RECORDS SUMMARY | 2024-09-08 15:11 | XMS_ITS | Encounter Summary ---
Author Organization [employer] Address [address] [place] [id number] Care Team Providers Care Oracle Business Intelligence Developer Name Role Phone Unavailable Primary Care Provider Unavailabl e Encounter Details Date Type Department Care Team (Late st Contact Info) Description 05/12/2019 Transcribed Document [facility] [place] [address] ProviderLexi MD [facility] [place] [address] Social History Tobacco Use Types [...] Conversion Note - Historical ProviderMD - 05/12/2019 2:00 PM BILINGUAL CALL CENTER REPRESENTATIVE Pain Assessment Entered On: 05/12/2019 16:50 EST Performed On: 05/12/2019 15:41 EST by Rach Red RN Intervention Information: traMADol Performed by Rach Red RN on 05/12/2019 14:41:00 EST traMADol,50mg Oral Pain Assessment Pain Assessment [...]
--- OUTSIDE RECORDS SUMMARY | 2024-09-08 15:12 | XMS_ITS | Encounter Summary ---
Author Organization [employer] Address [address] [place] [address] Care Team Providers Care Wood Repatcher Name Role Phone Unavailable Primary Care Provider Unavailabl e Encounter Details Date Type Department Care Team (Late st Contact Info) Description 05/16/2019 Transcribed Document [facility] [place] [facility] [place] [address] ProviderLexi MD [address] [place] [address] Social History Tobacco Use Types Packs/Day [...] Cerner Conversion Note - Historical ProviderMD - 05/16/2019 2:42 PM DETASSELING CREW SUPERVISOR On Going Discharge Planning Entered On: 05/16/2019 14:47 EST Performed On: 05/16/2019 14:42 EST by KYRA ZEPEDA RN-Gun NumberForensic Investigator Progress Note Discharge Arrangements : Patient Post-Acute Information Patient Name: TAY FONSECA Gender: Female : [birth year] Age: 73 Years No Post-Acute Placement(s) Listed No Post-Acute Service(s) Listed No [place] Referral(s) Listed Discharge Options Discussed with Patient : Short term rehabilitation Patient Offered Choice/Affiliations Explained : Yes KYRA ZEPEDA RN-Gun Number - 05/16/2019 14:42 EST Narrative Progress Note Narrative Progress Note : Dr River dictated a dc summary, however, is not showing up for anyone to see. Cm contacted Medical Records at [facility] in regards of having someone check for dictation of summary. After about 45 minutes, CM received call from Hayley, stating summary was held in a hold cue and had not been completed. Asked CM to fax over cover sheet with return fax and phone numbers and then Medical Records will fax back to CM the transfer summary that is holding in cue. This will allow CM to go ahead and fax dc summary to [facility] and to have nurse call report........sds Historical Progress Note : Pt has been changed to in pt status per IPAS. referrals sent out via [facility] [place] facilities per pts choice. SANDRA DEL ANGEL, Care Management-Green Lumber Grader - 05/13/19 10:07:21 KYRA ZEPEDA, RN-Gun Number - 05/16/2019 14:42 EST Electronically signed by Angelika, [facility] Conversion Asbestos Pipe Supervisor Cerner at 07/02/2022 4:57 PM CDT documented in this encounter Plan of Treatment Not on file documented as of this encounter Visit Diagnoses Not on filedocumented in this encounter
--- OUTSIDE RECORDS SUMMARY | 2024-09-08 15:12 | XMS_ITS | Referral Summary ---
Author Organization [facility] Address [address] [place] [address] Phone Care Team Providers Care Shipping Technician Name Role Phone Pcp, Pending Only MD Primary Care Provider Allergies Active Allergy Reactions Criticality Noted Date Comments Penicillins Hives,Vomiting 01/05/2013 Medications lisinopril 20 MG TABS 20 mg, hydrochlorothiazide 12.5 MG CAPS 12.5 mg Take by mouth daily. Active citalopram 40 MG TABS Take 40 mg by mouth daily. Active zolpidem (AMBIEN) 10 MG TABS Take 10 mg by mouth at bedtime as needed. Active Social History Tobacco Use Types Packs/Day Years Used Date Smoking Tobacco: Former Alcohol Use Standard Drinks/Week Comments No 0 (1 standard drink = 0.6 oz pur e alcohol) Comments No Sex and Gender Information Value Date Recorded Sex Assigned at Not on file Legal Sex Female 2:57 PM EDT Gender Identity Not on file Sexual Orientation Not on file Last Filed Vital Signs Vital Sign Reading Time Taken Comments Blood Pressure 150/68 01/05/2013 5:51 PM EDT Pulse 99 01/05/2013 5:51 PM EDT Temperature - - Respiratory Rate 22 01/05/2013 5:51 PM EDT Oxygen Saturation 95% 01/05/2013 5:51 PM EDT Inhaled Oxygen Concentration - - Weight 102.5 kg (226 lb) 01/05/2013 3:06 PM EDT Height 157.5 cm (5' 2 ) 01/05/2013 3:06 PM EDT Body Mass Index 41.34 01/05/2013 3:06 PM EDT Plan of Treatment Not on file Insurance MEDICARE on file [facility] SUPPLEMENT Member Subscriber Plan / Payer ( fective 2012-Present) Name:Dominga Ardon Relation to Subscriber:Self Name:Dominga Ardon Payer ID:[id number] (NAIC) Group ID:Not on file Type:Indemnity Address: [place] [id number] MEDICARE on file [facility] SUPPLEMENT Care Teams Shipping Technician Relationship Specialty Start Date End Date Pcp, Pending Only, [place] [address] PCP - General Internal Medicine 01/05/13
--- OUTSIDE RECORDS SUMMARY | 2024-09-08 15:12 | XMS_ITS | Encounter Summary ---
Author Organization [employer] Address [address] [place] [address] Care Team Providers Care Heading And Priming Tool Setter Name Role Phone Unavailable Primary Care Provider Unavailabl e Encounter Details Date Type Department Care Team (Late st Contact Info) Description 04/24/2019 Transcribed Document [facility] [place] [facility] [place] [address] ProviderLexi MD [facility] [place] [address] Social History Tobacco Use Types [...] Cerner Conversion Note - Historical ProviderMD - 04/24/2019 12:47 PM BROADCASTING EQUIPMENT MECHANIC Event Note Entered On: 04/24/2019 12:49 EST Performed On: 04/24/2019 12:47 EST by Nuvia Moseley Rn Event Note Event Date/Time : 04/24/2019 12:47 EST Description of Event : Sheeba notified of patient having a nickel allergy Nuvia Moseley Rn - 04/24/2019 12:47 EST documented in this encounter Plan of Treatment Not on file documented as of this encounter Visit Diagnoses Not on filedocumented in this encounter
--- OUTSIDE RECORDS SUMMARY | 2024-09-08 15:12 | XMS_ITS | Encounter Summary ---
Author Organization [employer] Address [address] [place] [id number] Care Team Providers Care Flight Engineer Manager Name Role Phone Unavailable Primary Care Provider Unavailabl e Encounter Details Date Type Department Care Team (Late st Contact Info) Description 05/16/2019 Transcribed Document [facility] [place] [place] [address] ProviderLexi MD [address] [place] [id number] Social History Tobacco Use Types Packs/Day [...] Cerner Conversion Note - Lexi ProviderMD - 05/16/2019 12:30 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 Discharge Vitals Temperature 36.7 ??C Heart Rate (Monitored) 104 Respiratory Rate 18 Blood Pressure 142/72 What to do next Instructions From Your Care Team Discharge to [facility] saturday with transportation by family, RN please call report to [phone] fax dc summary to [phone] Continue to use incentive spirometer for approx a week Follow-Up Appointments Follow Up with SAIMA DUKES PA-C When 06/23/2019 10:00 AM EDT Comments Appointment has been made Where: Follow Up with Follow up with primary care provider When Within 1 week Medications What How Much When Instructions Next Dose acetaminophen (Tylenol) 1,000 Milligram(s) Oral Interval Every 6 Hours aspirin (aspirin 81 mg oral delayed release tablet) 1 Tablet(s) Oral Two Times A Day docusate (Colace 100 mg oral capsule) 1 Capsule(s) Oral Two Times A Day docusate-senna (Senokot S) 2 Tablet(s) Oral At Bedtime multivitamin (Multiple Vitamins oral capsule) Oral Every Day ondansetron (Zofran 2 mg/ mL injectable solution) 2 Milliliter(s) Intravenous Push Every 8 Hours as needed for Nausea/Vomiting pantoprazole (Protonix 40 mg oral delayed release tablet) 1 Tablet(s) Oral Every Day traMADol (traMADol 50 mg oral tablet) 1 Tablet(s) Oral Every 6 Hours While Awake citalopram 40 Milligram(s) Oral Every Day ergocalciferol (Vitamin D2) 50,000 International Units Oral Saturday glipiZIDE (GlipiZIDE XL 10 mg oral tablet, extended release) 2 Tablet(s) Oral Every Day with breakfast hydrochlorothiazide-lisinopril (hydroCHLOROthiazide-lisinopril 12.5 mg-20 mg oral tablet) 1 Tablet(s) Oral Every Day Pickup at [facility]-[address] [place] [address] 27 S levothyroxine 50 Microgram(s) Oral Every Day simvastatin 40 Milligram(s) Oral Every Evening Pharmacy Information [facility]-[address] [place] [address] 27 S: [address] [facility] [address] [place] [phone] Take your medications faithfully. Do NOT skip medication. Do NOT stop taking medications without the direction of a physician. Carry a list of your medications with you at all times, and take this medication list with you to your first follow up visit. Report any side effects. Avoid herbal remedies unless discussed with your physician. As part of your treatment plan, your physician may have prescribed a limited course of a controlled substance. This medication may be given to help people with moderate or severe pain or for other medical conditions, but there are risks involved with treatment. Common side effects may include nausea, constipation, drowsiness, sweating, itching, dry mouth, and rash. More serious side effects may include cognitive and motor impairment, like problems with thinking, concentrating, alertness, and movement (e.g. slowed reflexes), and driving and operating heavy machinery can be dangerous. It is important for you to talk to your physician if you have these side effects or questions. These controlled substances can produce physical dependence and be habit-forming if taken for an extended period of time, which means that the body has gotten used to them and may experience withdrawal symptoms if they are abruptly stopped. Withdrawal symptoms can include runny nose, sweating, goose bumps, diarrhea, abdominal cramping, rapid heartbeat, difficulty sleeping, and nervousness. Please dispose of unused and medications per your retail pharmacy guidance. Allergies Trace Metals (all jewelry causes a rash) penicillin (hives) Immunizations This Visit No Immunizations Found Education Materials What to expect after the Procedure: After the procedure, it is common to have: ??? Pain and swelling. ??? A small amount of blood or clear fluid coming from your incision for up to 7 days ??? It is normal to have a moderate amount of bleeding from the site of the drain that was pulled on the morning after surgery. You can hold pressure on the area for 3-5 minutes and cover with a bandage as needed. Diet: ??? Resume usual diet ??? No alcoholic beverages while taking pain medication ??? Drink 8-10 glasses of water a day to prevent constipation from pain medication ??? Increase fiber to help prevent constipation. Straining can cause increased pressure and pain in your incision area ??? Increase protein to promote healing Driving: ??? Do not drive until your health care provider approves. Ask your health care provider when it is safe to drive if you have an immobilizer on your knee. ??? Do not drive or operate heavy machinery while taking prescription pain medicine. ??? Do not drive for 24 hours if you received a sedative. Activity: ??? Do not lift anything that is heavier than 10 lb (4.5 kg) until your health care provider approves. ??? No strenuous activity ??? Avoid high-impact activities, including running, jumping rope, and jumping jacks. ??? Avoid sitting for a long time without moving. Get up and move around at least every few hours. ??? Keep legs elevated while seated and place surgery leg on 2-3 pillows, this will decrease swelling ??? Continue using walker until cleared by physical therapy Bathing: ??? Do not take baths, swim, or use a hot tub for one month after surgery. ??? May shower on the third day after surgery by covering incision with Glad Brand Press and Seal saran wrap. After showering, dry off completely BEFORE removing saran wrap. ??? Use Press and Seal saran wrap to shower for one month after surgery ??? You must be seated to shower until you are no longer using the walker Other: ??? Use ice therapy for 20-30 minutes at a time and leave off for 20-30 minutes at a time. Always keep a towel or cloth between the ice pack and your skin ??? Continue to use Incentive Spirometer 10 times an hour while awake for one month to help prevent pneumonia. ??? Wear compression stockings for 6 weeks. ??? Take Aspirin 81mg twice a day for 45 days. ??? Leave the dressing in place for 7 days then leave it open to air. Contact a health care provider if: ??? You have more redness, swelling, or pain around your incision. ??? You have more fluid or blood coming from your incision. ??? Your incision or drain site feels warm to the touch. ??? You have pus or a bad smell coming from your incision. ??? You have a fever. ??? Your incision breaks open after your health care provider removes your sutures, skin glue, or adhesive tape. ??? Your prosthesis feels loose. ??? You have knee pain that does not go away. DVT: Blood Clot Blood clots are a common risk after an orthopedic surgery Symptoms: ??? Swelling of your leg or arm, especially if one side is much worse. ??? Warmth and redness of your leg or arm, especially if one side is much worse. ??? Pain in your arm or leg. If the clot is in your leg, symptoms may be more noticeable or worse when you stand or walk. ??? A feeling of pins and needles, if the clot is in the arm. The symptoms of a DVT that has traveled to the lungs (pulmonary embolism, PE) usually start suddenly and include: ??? Shortness of breath while active or at rest. ??? Coughing or coughing up blood or blood-tinged mucus. ??? Chest pain that is often worse with deep breaths. ??? Rapid or irregular heartbeat. ??? Feeling light-headed or dizzy. ??? Fainting. ??? Feeling anxious. ??? Sweating. There may also be pain and swelling in a leg if that is where the blood clot started. How is this prevented? Exercise regularly. For at least 30 minutes every day, engage in: -Activity that involves moving your arms and legs. -Activity that encourages good blood flow through your body by increasing your heart rate. ??? Exercise your arms and legs every hour during long-distance travel (over 4 hours). ??? Drink plenty of water and avoid drinking alcohol while traveling. ??? Avoid sitting or lying in bed for long periods of time without moving your legs. ??? Maintain a weight that is appropriate for your height. Ask your health care provider what weight is healthy for you. ??? If you are a woman who is over 35 years of age, avoid unnecessary use of medicines that contain estrogen. These include control pills. ??? Do not smoke, especially if you take estrogen medicines. If you need help quitting, ask your health care provider. ??? Wear compression stockings (if told by your health care provider) to help prevent blood clots from forming. High Fiber/High Protein Diet High fiber foods: To prevent constipation Grains Whole-grain breads. Multigrain cereal. Oats and oatmeal. Brown rice. Barley. Bulgur wheat. Millet. Bran muffins. Popcorn. Chehalis wafer crackers. Vegetables Sweet potatoes. Spinach. Kale. Artichokes. Cabbage. Broccoli. Green peas. Carrots. Squash. Fruits Berries. Pears. Apples. Oranges. Avocados. Prunes and raisins. Dried figs. Meats and Other Protein Sources Filley, kidney, kaplan, and soy beans. Split peas. Lentils. Nuts and seeds. Dairy Fiber-fortified yogurt. Beverages Fiber-fortified soy milk. Fiber-fortified orange juice. Other Fiber bars. High-protein foods: To promote healing High-protein foods contain 4 grams (4 g) or more of protein per serving. They include: ??? Beef, ground sirloin (cooked) ??? 3 oz have 24 g of protein. ??? Cheese (hard) ??? 1 oz has 7 g of protein. ??? Chicken breast, boneless and skinless (cooked) ??? 3 oz have 13.4 g of protein. ??? Cottage cheese ??? 1/2 cup has 13.4 g of protein. ??? Egg ??? 1 egg has 6 g of protein. ??? Fish, filet (cooked) ??? 1 oz has 6???7 g of protein. ??? Garbanzo beans (canned or cooked) ??? 1/2 cup has 6???7 g of protein. ??? Kidney beans (canned or cooked) ??? 1/2 cup has 6???7 g of protein. ??? Duque (cooked) ??? 3 oz has 24 g of protein. ??? Milk ??? 1 cup (8 oz) has 8 g of protein. ??? Nuts (peanuts, pistachios, almonds) ??? 1 oz has 6 g of protein. ??? Peanut butter ??? 1 oz has 7???8 g of protein. ??? Pork tenderloin (cooked) ??? 3 oz has 18.4 g of protein. ??? Pumpkin seeds ??? 1 oz has 8.5 g of protein. ??? Soybeans (roasted) ??? 1 oz has 8 g of protein. ??? Soybeans (cooked) ??? 1/2 cup has 11 g of protein. ??? Soy milk ??? 1 cup (8 oz) has 5???10 g of protein. ??? Soy or vegetable harrison ??? 1 harrison has 11 g of protein. ??? [place] seeds ??? 1 oz has 5.5 g of protein. ??? Tofu (firm) ??? 1/2 cup has 20 g of protein. ??? Tuna (canned in water) ??? 3 oz has 20 g of protein. ??? Yogurt ??? 6 oz has 8 g of protein. Fall Prevention ??? Use night lights. ??? Install grab bars by the toilet and in the tub and shower. Do not use towel bars as grab bars. ??? Use non-skid mats or decals on the floor of the tub or shower. ??? If you need to sit down while you are in the shower, use a plastic, non-slip stool. ??? Keep the floor dry. Immediately clean up any water that spills on the floor. ??? Remove soap buildup in the tub or shower on a regular basis. ??? Remove throw rugs and other tripping hazards from the floor. ??? Place frequently used items in giqs-ky-wftxw places ??? Keep electrical cables out of the way. ??? Do not leave any items on the stairs. ??? Make sure that there are handrails on both sides of the stairs. Fix handrails that are broken or loose. Make sure that handrails are as long as the stairways. ??? Check any carpeting to make sure that it is firmly attached to the stairs. Fix any carpet that is loose or worn. ??? Avoid having throw rugs at the top or bottom of stairways, or secure the rugs with carpet tape to prevent them from moving. ??? Wear closed-toe shoes that fit well and support your feet. Wear shoes that have rubber soles or low heels. ??? Use mobility aids as needed, such as canes, walkers, scooters, and crutches. ??? Turn on lights if it is dark. Replace any light bulbs that burn out. ??? Set up furniture so that there are clear paths. Keep the furniture in the same spot. ??? Be aware of any and all pets. ??? Review your medicines with your healthcare provider. Some medicines can cause dizziness or changes in blood pressure, which increase your risk of falling. Hand Washing You should wash your hands whenever you think they are dirty. You should also wash your hands: ??? After: ??? Working or playing outside. ??? Touching an animal or its toys or leash. ??? Handling livestock. ??? Using the bathroom. ??? Using household statement clerks supervisor or toxic chemicals. ??? Touching or taking out the garbage. ??? Touching anything dirty around your home. ??? Handling soiled clothes or rags. ??? Taking care of a sick child. This includes touching used tissues, toys, and clothes. ??? Sneezing, coughing, or blowing your nose. ??? Using public transportation. ??? Shaking hands. ??? Using a phone, including your mobile phone. ??? Touching money. ??? Before and after: ??? Preparing food. ??? Feeding a baby or young child. ??? Eating. ??? Visiting or taking care of someone who is sick. ??? Changing a diaper. ??? Changing a bandage (dressing) or taking care of an injury or wound. ??? Giving or taking medicine. If soap and clean water are not available, use an alcohol-based wipe, spray, or hand gel. Use a hand-sanitizing agent that contains at least 60% alcohol. If you are preparing food, hand sanitizers are not recommended as a substitute for hand washing. Walker Use To Walk With a Front-Wheeled Walker: 1. Slide your front-wheeled walker one step-length in front of you. Your toes should be farther forward than the back legs of your walker. 2. Hold on to the walker for support, and step your weaker (surgery) leg into the middle of the walker. 3. Step your stronger leg forward to land next to your weaker leg. 4. Repeat the process for each step. ??? Always keep both feet within the width of the walker's legs or wheels. ??? When using your walker, you should not feel like you need to lean forward or to the side to keep your hands on the handgrips. ??? Make sure you are following any weight-bearing instructions that your health care provider has given you. ??? Be careful not to let the walker get too far ahead of you as you walk. ??? If your walker does not glide well over carpet, consider cutting an X into two tennis balls and placing the balls over the back legs of your walker. How to use a walker on a curb or step To Use a Walker to Step Up: 1. Put all four legs of the walker on the curb or step. 2. Get your feet as close to the curb or step as you can. 3. Test the steadiness of the walker by pressing down on the handgrips. 4. If the walker is steady, press down on it with your hands as you step up with your stronger leg. 5. Step up with your weaker leg. To Use a Walker to Step Down: 1. Put all four legs of the walker on the surface that is lower than the curb or step. 2. Get your feet as close to the curb or step as you can. 3. Test the steadiness of the walker by pressing down on the handgrips. 4. If the walker is steady, press down on it with your hands as you step down with your weaker leg. 5. Step down with your stronger leg. Fall Prevention in the Home, Adult Falls can cause injuries. They can happen to people of all ages. There are many things you can do to make your home safe and to help prevent falls. Ask for help when making these changes, if needed. What actions can I take to prevent falls? General Instructions ??? Use good lighting in all rooms. Replace any light bulbs that burn out. ??? Turn on the lights when you go into a dark area. Use night-lights. ??? Keep items that you use often in ojxf-dx-lnftc places. Lower the shelves around your home if necessary. ??? Set up your furniture so you have a clear path. Avoid moving your furniture around. ??? Do not have throw rugs and other things on the floor that can make you trip. ??? Avoid walking on wet floors. ??? If any of your floors are uneven, fix them. ??? Add color or contrast paint or tape to clearly janusz and help you see: ? Any grab bars or handrails. ? First and last steps of stairways. ? Where the edge of each step is. ??? If you use a stepladder: ? Make sure that it is fully opened. Do not climb a closed stepladder. ? Make sure that both sides of the stepladder are locked into place. ? Ask someone to hold the stepladder for you while you use it. ??? If there are any pets around you, be aware of where they are. What can I do in the bathroom? Keep the floor dry. Clean up any water that spills onto the floor as soon as it happens. ??? Remove soap buildup in the tub or shower regularly. ??? Use non-skid mats or decals on the floor of the tub or shower. ??? Attach bath mats securely with double-sided, non-slip rug tape. ??? If you need to sit down in the shower, use a plastic, non-slip stool. ??? Install grab bars by the toilet and in the tub and shower. Do not use towel bars as grab bars. What can I do in the bedroom? Make sure that you have a light by your bed that is easy to reach. ??? Do not use any sheets or blankets that are too big for your bed. They should not hang down onto the floor. ??? Have a firm chair that has side arms. You can use this for support while you get dressed. What can I do in the kitchen? Clean up any spills right away. ??? If you need to reach something above you, use a strong step stool that has a grab bar. ??? Keep electrical cords out of the way. ??? Do not use floor divehi or wax that makes floors slippery. If you must use wax, use non-skid floor wax. What can I do with my stairs? Do not leave any items on the stairs. ??? Make sure that you have a light switch at the top of the stairs and the bottom of the stairs. If you do not have them, ask someone to add them for you. ??? Make sure that there are handrails on both sides of the stairs, and use them. Fix handrails that are broken or loose. Make sure that handrails are as long as the stairways. ??? Install non-slip stair treads on all stairs in your home. ??? Avoid having throw rugs at the top or bottom of the stairs. If you do have throw rugs, attach them to the floor with carpet tape. ??? Choose a carpet that does not hide the edge of the steps on the stairway. ??? Check any carpeting to make sure that it is firmly attached to the stairs. Fix any carpet that is loose or worn. What can I do on the outside of my home? Use bright outdoor lighting. ??? Regularly fix the edges of walkways and driveways and fix any cracks. ??? Remove anything that might make you trip as you walk through a door, such as a raised step or threshold. ??? Trim any bushes or trees on the path to your home. ??? Regularly check to see if handrails are loose or broken. Make sure that both sides of any steps have handrails. ??? Install guardrails along the edges of any raised decks and porches. ??? Clear walking paths of anything that might make someone trip, such as tools or rocks. ??? Have any leaves, snow, or ice cleared regularly. ??? Use sand or salt on walking paths during winter. ??? Clean up any spills in your garage right away. This includes grease or oil spills. What other actions can I take? Wear shoes that: ? Have a low heel. Do not wear high heels. ? Have rubber bottoms. ? Are comfortable and fit you well. ? Are closed at the toe. Do not wear open-toe sandals. ??? Use tools that help you move around (mobility aids) if they are needed. These include: ? Canes. ? Walkers. ? Scooters. ? Crutches. ??? Review your medicines with your doctor. Some medicines can make you feel dizzy. This can increase your chance of falling. Ask your doctor what other things you can do to help prevent falls. Where to find more information ??? Centers for Disease Control and Prevention, [place]: https://cdc.gov ??? National Peerless on Aging: https://gm1xwun.bolivar.nih.gov Contact a doctor if: ??? You are afraid of falling at home. ??? You feel weak, drowsy, or dizzy at home. ??? You fall at home. Summary ??? There are many simple things that you can do to make your home safe and to help prevent falls. ??? Ways to make your home safe include removing tripping hazards and installing grab bars in the bathroom. ??? Ask for help when making these changes in your home. This information is not intended to replace advice given to you by your health care provider. Make sure you discuss any questions you have with your health care provider. Document Released: 12/29/2009 Document Revised: 10/17/2017 Document Reviewed: 10/17/2017 [employer] Interactive Patient Education ?? 2019 [email or web address]. High-Fiber Diet Fiber, also called dietary fiber, is a type of carbohydrate found in fruits, vegetables, whole grains, and beans. A high-fiber diet can have many health benefits. Your health care provider may recommend a high-fiber diet to help: ??? Prevent constipation. Fiber can make your bowel movements more regular. ??? Lower your cholesterol. ??? Relieve hemorrhoids, uncomplicated diverticulosis, or irritable bowel syndrome. ??? Prevent overeating as part of a weight-loss plan. ??? Prevent heart disease, type 2 diabetes, and certain cancers. What is my plan? The recommended daily intake of fiber includes: ??? 38 grams for men under age 50. ??? 30 grams for men over age 50. ??? 25 grams for women under age 50. ??? 21 grams for women over age 50. You can get the recommended daily intake of dietary fiber by eating a variety of fruits, vegetables, grains, and beans. Your health care provider may also recommend a fiber supplement if it is not possible to get enough fiber through your diet. What do I need to know about a high-fiber diet? Fiber supplements have not been widely studied for their effectiveness, so it is better to get fiber through food sources. ??? Always check the fiber content on the nutrition facts label of any prepackaged food. Look for foods that contain at least 5 grams of fiber per serving. ??? Ask your dietitian if you have questions about specific foods that are related to your condition, especially if those foods are not listed in the following section. ??? Increase your daily fiber consumption gradually. Increasing your intake of dietary fiber too quickly may cause bloating, cramping, or gas. ??? Drink plenty of water. Water helps you to digest fiber. What foods can I eat? Grains Whole-grain breads. Multigrain cereal. Oats and oatmeal. Brown rice. Barley. Bulgur wheat. Millet. Bran muffins. Popcorn. Chehalis wafer crackers. Vegetables Sweet potatoes. Spinach. Kale. Artichokes. Cabbage. Broccoli. Green peas. Carrots. Squash. Fruits Berries. Pears. Apples. Oranges. Avocados. Prunes and raisins. Dried figs. Meats and Other Protein Sources Filley, kidney, kaplan, and soy beans. Split peas. Lentils. Nuts and seeds. Dairy Fiber-fortified yogurt. Beverages Fiber-fortified soy milk. Fiber-fortified orange juice. Other Fiber bars. The items listed above may not be a complete list of recommended foods or beverages. Contact your dietitian for more options. What foods are not recommended? Grains White bread. Pasta made with refined flour. White rice. Vegetables Fried potatoes. Canned vegetables. Well-cooked vegetables. Fruits Fruit juice. Cooked, strained fruit. Meats and Other Protein Sources Fatty cuts of meat. Fried poultry or fried fish. Dairy Milk. Yogurt. Cream cheese. Sour cream. Beverages Soft drinks. Other Cakes and pastries. Butter and oils. The items listed above may not be a complete list of foods and beverages to avoid. Contact your dietitian for more information. What are some tips for including high-fiber foods in my diet? Eat a wide variety of high-fiber foods. ??? Make sure that half of all grains consumed each day are whole grains. ??? Replace breads and cereals made from refined flour or white flour with whole-grain breads and cereals. ??? Replace white rice with brown rice, bulgur wheat, or millet. ??? Start the day with a breakfast that is high in fiber, such as a cereal that contains at least 5 grams of fiber per serving. ??? Use beans in place of meat in soups, salads, or pasta. ??? Eat high-fiber snacks, such as berries, raw vegetables, nuts, or popcorn. This information is not intended to replace advice given to you by your health care provider. Make sure you discuss any questions you have with your health care provider. Document Released: 03/04/2006 Document Revised: 08/09/2016 Document Reviewed: 08/17/2014 [employer] Patient Education ?? 2018 [email or web address]. hydromorphone (oral) (MIRZA droe LYN fone) Dilaudid, Exalgo What is the most important information I should know about hydromorphone? MISUSE OF OPIOID MEDICINE CAN CAUSE ADDICTION, OVERDOSE, OR . Keep the medication in a place where others cannot get to it. Taking opioid medicine during may cause life-threatening withdrawal symptoms in the . Fatal side effects can occur if you use opioid medicine with alcohol, or with other drugs that cause drowsiness or slow your breathing. What is hydromorphone? Hydromorphone is an opioid medication used to treat moderate to severe pain. The extended-release form of this medicine is for niylbd-fjt-izgmu treatment of moderate to severe pain, not for use on an as-needed basis for pain. Hydromorphone may also be used for purposes not listed in this medication guide. What should I discuss with my healthcare provider before using hydromorphone? You should not take this medicine if you have ever had an allergic reaction to hydromorphone or other narcotic medicines, or if you have: ?? severe asthma or breathing problems; ?? a blockage in your stomach or intestines; or ?? a bowel obstruction called paralytic ileus. Do not use hydromorphone if you have used an MAO inhibitor in the past 14 days. A dangerous drug interaction could occur. MAO inhibitors include isocarboxazid, linezolid, methylene blue injection, phenelzine, rasagiline, selegiline, tranylcypromine, and others. Tell your doctor if you have ever had: ?? a head injury, brain tumor, or seizures; ?? breathing problems, sleep apnea; ?? alcoholism, drug addiction, or mental illness; ?? urination problems; ?? liver or kidney disease; ?? a sulfite allergy; or ?? problems with your gallbladder, pancreas, or thyroid. If you use opioid medicine while you are , your baby could become dependent on the drug. This can cause life-threatening withdrawal symptoms in the baby after it is born. Babies born dependent on opioids may need medical treatment for several weeks. Do not breast-feed. Hydromorphone can pass into breast milk and may cause drowsiness or breathing problems in a nursing baby. How should I use hydromorphone? Follow the directions on your prescription label and read all medication guides. Never use hydromorphone in larger amounts, or for longer than prescribed. Tell your doctor if you feel an increased urge to take more of this medicine. Never share opioid medicine with another person, especially someone with a history of drug abuse or addiction. MISUSE CAN CAUSE ADDICTION, OVERDOSE, OR . Keep the medication in a place where others cannot get to it. Selling or giving away opioid medicine is against the law. Stop taking all other tcxznq-sgz-ojyce narcotic pain medications when you start taking hydromorphone. Swallow the capsule or tablet whole to avoid exposure to a potentially fatal overdose. Do not crush, chew, break, open, or dissolve. Measure liquid medicine carefully. Use the dosing syringe provided, or use a medicine dose-measuring device (not a kitchen spoon). Do not stop using hydromorphone suddenly, or you could have unpleasant withdrawal symptoms. Ask your doctor how to safely stop using hydromorphone. Never crush or break a hydromorphone pill to inhale the powder or mix it into a liquid to inject the drug into your vein. This can cause in . Store at room temperature away from moisture, heat, and light. Throw away any unused liquid after 90 days. Keep track of your medicine. You should be aware if anyone is using it improperly or without a prescription. Do not keep leftover opioid medication. Just one dose can cause in someone using this medicine accidentally or improperly. Ask your pharmacist where to locate a drug take-back disposal program. If there is no take-back program, flush the unused medicine down the toilet. What happens if I miss a dose? Since hydromorphone is used for pain, you are not likely to miss a dose. Skip any missed dose if it is almost time for your next dose. Do not use two doses at one time. What happens if I overdose? Seek emergency medical attention or call the Poison Help line at . A hydromorphone overdose can be fatal, especially in a child or other person using the medicine without a prescription. Overdose symptoms may include slow heart rate, severe drowsiness, muscle weakness, cold and clammy skin, pinpoint pupils, very slow breathing, or coma. What should I avoid while using hydromorphone? Do not drink alcohol. Dangerous side effects or could occur. Avoid driving or hazardous activity until you know how this medicine will affect you. Dizziness or drowsiness can cause falls, accidents, or severe injuries. What are the possible side effects of hydromorphone? Get emergency medical help if you have signs of an allergic reaction: hives; difficulty breathing; swelling of your face, lips, tongue, or throat. Opioid medicine can slow or stop your breathing, and may occur. A person caring for you should seek emergency medical attention if you have slow breathing with long pauses, blue colored lips, or if you are hard to wake up. Call your doctor at once if you have: ?? noisy breathing, sighing, shallow breathing, breathing that stops during sleep; ?? a slow heart rate or weak pulse; ?? confusion, feelings of extreme happiness or sadness; ?? severe weakness or drowsiness; ?? a light-headed feeling, like you might pass out; ?? low cortisol levels--nausea, vomiting, loss of appetite, dizziness, worsening tiredness or weakness. Seek medical attention right away if you have symptoms of serotonin syndrome, such as: agitation, hallucinations, fever, sweating, shivering, fast heart rate, muscle stiffness, twitching, loss of coordination, nausea, vomiting, or diarrhea. Serious side effects may be more likely in older adults and those who are malnourished or debilitated. Long-term use of opioid medication may affect fertility (ability to have children) in men or women. It is not known whether opioid effects on fertility are permanent. Common side effects may include: ?? drowsiness, tiredness; ?? dizziness; ?? headache; or ?? constipation, nausea, vomiting, stomach pain. This is not a complete list of side effects and others may occur. Call your doctor for medical advice about side effects. You may report side effects to FDA at 9-960-YBU-6023. What other drugs will affect hydromorphone? Opioid medication can interact with many other drugs and cause dangerous side effects or . Be sure your doctor knows if you also use: ?? other narcotic medications--opioid pain medicine or prescription cough medicine; ?? a sedative like Valium--diazepam, alprazolam, lorazepam, Xanax, Klonopin, Versed, and others; ?? drugs that make you sleepy or slow your breathing--a sleeping pill, muscle relaxer, medicine to treat mood disorders or mental illness; or ?? drugs that affect serotonin levels in your body--a stimulant, or medicine for depression, Parkinson's disease, migraine headaches, serious infections, or nausea and vomiting. This list is not complete. Other drugs may affect hydromorphone, including prescription and wvgz-yhf-whzobmi medicines, vitamins, and herbal products. Not all possible interactions are listed here. Where can I get more information? Your doctor or pharmacist can provide more information about hydromorphone. Remember, keep this and all other medicines out of the reach of children, never share your medicines with others, and use this medication only for the indication prescribed. Every effort has been made to ensure that the information provided by [employer] is accurate, up-to-date, and complete, but no guarantee is made to that effect. Drug information contained herein may be time sensitive. [employer] information has been compiled for use by healthcare practitioners and consumers in the [place] and therefore [employer] does not warrant that uses outside of the [place] are appropriate, unless specifically indicated otherwise. [employer] drug information does not endorse drugs, diagnose patients or recommend therapy. [employer] drug information is an informational resource designed to assist licensed healthcare practitioners in caring for their patients and/or to serve consumers viewing this service as a supplement to, and not a substitute for, the expertise, skill, knowledge and judgment of healthcare practitioners. The absence of a warning for a given drug or drug combination in no way should be construed to indicate that the drug or drug combination is safe, effective or appropriate for any given patient. [facility] does not assume any responsibility for any aspect of healthcare administered with the aid of information [facility] provides. The information contained herein is not intended to cover all possible uses, directions, precautions, warnings, drug interactions, allergic reactions, or adverse effects. If you have questions about the drugs you are taking, check with your doctor, nurse or pharmacist. Copyright 7721-8604 [employer]. Version: 9.03. Revision Date: 01/01/2019. gabapentin (GA ba PEN tin) Gralise, Horizant, Neurontin What is the most important information I should know about gabapentin? Some people have thoughts about suicide while taking this medicine. Children taking gabapentin may have behavior changes. Stay alert to changes in your mood or symptoms. Report any new or worsening symptoms to your doctor. Do not stop using gabapentin suddenly, even if you feel fine. What is gabapentin? Gabapentin is an anti-epileptic drug, also called an anticonvulsant. It affects chemicals and nerves in the body that are involved in the cause of seizures and some types of pain. Gabapentin is used in adults to treat nerve pain caused by herpes virus or shingles (herpes zoster). The Horizant brand of gabapentin is also used to treat restless legs syndrome (RLS). The Neurontin brand of gabapentin is also used to treat seizures in adults and children who are at least 3 years old. Use only the brand and form of gabapentin your doctor has prescribed. Check your medicine each time you get a refill to make sure you receive the correct form. Gabapentin may also be used for purposes not listed in this medication guide. What should I discuss with my healthcare provider before taking gabapentin? You should not use gabapentin if you are allergic to it. Tell your doctor if you have ever had: ?? lung disease, such as chronic obstructive pulmonary disease (COPD); ?? kidney disease (or if you are on dialysis); ?? diabetes; ?? depression, a mood disorder, or suicidal thoughts or actions; ?? a seizure (unless you take gabapentin to treat seizures); ?? liver disease; ?? heart disease; or ?? (for patients with RLS) if you are a day sleeper or work a transcript evaluator. Some people have thoughts about suicide while taking this medicine. Your doctor should check your progress at regular visits. Your family or other caregivers should also be alert to changes in your mood or symptoms. It is not known whether this medicine will harm an unborn baby. Tell your doctor if you are or plan to become . Seizure control is very important during , and having a seizure could harm both mother and baby. Do not start or stop taking gabapentin for seizures without your doctor's advice, and tell your doctor right away if you become . It may not be safe to breastfeed while using this medicine. Ask your doctor about any risk. How should I take gabapentin? Follow all directions on your prescription label. Do not take this medicine in larger or smaller amounts or for longer than recommended. The Horizant brand of gabapentin should not be taken during the day. For best results, take Horizant with food at about 5:00 in the evening. Both Gralise and Horizant should be taken with food. Neurontin can be taken with or without food. If you break a Neurontin tablet and take only half of it, take the other half at your next dose. Any tablet that has been broken should be used as soon as possible or within a few days. Swallow the capsule or tablet whole and do not crush, chew, break, or open it. Measure liquid medicine carefully. Use the dosing syringe provided, or use a medicine dose-measuring device (not a kitchen spoon). If your doctor changes your brand, strength, or type of gabapentin, your dosage needs may change. Ask your pharmacist if you have any questions about the new kind of gabapentin you receive at the pharmacy. Do not stop using gabapentin suddenly, even if you feel fine. Stopping suddenly may cause increased seizures. Follow your doctor's instructions about tapering your dose. In case of emergency, wear or carry medical identification to let others know you have seizures. This medicine can cause unusual results with certain medical tests. Tell any doctor who treats you that you are using gabapentin. Store gabapentin tablets and capsules at room temperature away from light and moisture. Store the liquid medicine in the refrigerator. Do not freeze. What happens if I miss a dose? Take the medicine as soon as you can, but skip the missed dose if it is almost time for your next dose. Do not take two doses at one time. What happens if I overdose? Seek emergency medical attention or call the Poison Help line at . What should I avoid while taking gabapentin? Avoid driving or hazardous activity until you know how this medicine will affect you. Your reactions could be impaired. Avoid taking an antacid within 2 hours before or after you take gabapentin. Antacids can make it harder for your body to absorb gabapentin. Drinking alcohol with this medicine can cause side effects. What are the possible side effects of gabapentin? Get emergency medical help if you have signs of an allergic reaction: hives; difficult breathing; swelling of your face, lips, tongue, or throat. Seek medical treatment if you have a serious drug reaction that can affect many parts of your body. Symptoms may include: skin rash, fever, swollen glands, muscle aches, severe weakness, unusual bruising, upper stomach pain, or yellowing of your skin or eyes. Report any new or worsening symptoms to your doctor, such as: mood or behavior changes, anxiety, panic attacks, trouble sleeping, or if you feel impulsive, irritable, agitated, hostile, aggressive, restless, hyperactive (mentally or physically), depressed, or have thoughts about suicide or hurting yourself. Call your doctor at once if you have: ?? weak or shallow breathing; ?? blue-colored skin, lips, fingers, and toes; ?? confusion, extreme drowsiness or weakness; ?? problems with balance or muscle movement; ?? unusual or involuntary eye movements; or ?? increased seizures. Gabapentin can cause life-threatening breathing problems. A person caring for you should seek emergency medical attention if you have slow breathing with long pauses, blue colored lips, or if you are hard to wake up. Breathing problems may be more likely in older adults or in people with COPD. Some side effects are more likely in children taking gabapentin. Contact your doctor if the child taking this medicine has any of the following side effects: ?? changes in behavior; ?? memory problems; ?? trouble concentrating; or ?? acting restless, hostile, or aggressive. Common side effects may include: ?? headache; ?? dizziness, drowsiness, tiredness; ?? problems with balance or eye movements; or ?? (in children) fever, nausea, vomiting. This is not a complete list of side effects and others may occur. Call your doctor for medical advice about side effects. You may report side effects to FDA at 1-578-RVW-0511. What other drugs will affect gabapentin? Using gabapentin with other drugs that slow your breathing can cause dangerous side effects or . Ask your doctor before using opioid medication, a sleeping pill, cold or allergy medicine, a muscle relaxer, or medicine for anxiety or seizures. Other drugs may affect gabapentin, including prescription and mrtt-dbn-lbpjcma medicines, vitamins, and herbal products. Tell your doctor about all your current medicines and any medicine you start or stop using. Where can I get more information? Your pharmacist can provide more information about gabapentin. Remember, keep this and all other medicines out of the reach of children, never share your medicines with others, and use this medication only for the indication prescribed. Every effort has been made to ensure that the information provided by [employer] is accurate, up-to-date, and complete, but no guarantee is made to that effect. Drug information contained herein may be time sensitive. [employer] information has been compiled for use by healthcare practitioners and consumers in the [place] and therefore [employer] does not warrant that uses outside of the [place] are appropriate, unless specifically indicated otherwise. [employer] drug information does not endorse drugs, diagnose patients or recommend therapy. [employer] drug information is an informational resource designed to assist licensed healthcare practitioners in caring for their patients and/or to serve consumers viewing this service as a supplement to, and not a substitute for, the expertise, skill, knowledge and judgment of healthcare practitioners. The absence of a warning for a given drug or drug combination in no way should be construed to indicate that the drug or drug combination is safe, effective or appropriate for any given patient. [employer] does not assume any responsibility for any aspect of healthcare administered with the aid of information [employer] provides. The information contained herein is not intended to cover all possible uses, directions, precautions, warnings, drug interactions, allergic reactions, or adverse effects. If you have questions about the drugs you are taking, check with your doctor, nurse or pharmacist. Copyright 5098-6067 [employer]. Version: 15.. Revision Date: 03/12/2019. oxycodone (ox i KOE done) Oxaydo, OxyCONTIN, Oxyfast, Roxicodone, Xtampza ER What is the most important information I should know about oxycodone? MISUSE OF OPIOID MEDICINE CAN CAUSE ADDICTION, OVERDOSE, OR . Keep the medication in a place where others cannot get to it. Taking opioid medicine during may cause life-threatening withdrawal symptoms in the . Fatal side effects can occur if you use opioid medicine with alcohol, or with other drugs that cause drowsiness or slow your breathing. What is oxycodone? Oxycodone is an opioid pain medication used to treat moderate to severe pain. The extended-release form of oxycodone is for fijszc-ohx-mzdwa treatment of pain and should not be used on an as-needed basis for pain. Oxycodone may also be used for purposes not listed in this medication guide. What should I discuss with my healthcare provider before using oxycodone? You should not use oxycodone if you are allergic to it, or if you have: ?? severe asthma or breathing problems; or ?? a blockage in your stomach or intestines. You should not use oxycodone unless you are already using a similar opioid medicine and are tolerant to it. Most brands of oxycodone are not approved for use in people under 18. OxyContin should not be given to a child younger than 11 years old. Tell your doctor if you have ever had: ?? breathing problems, sleep apnea; ?? a head injury, or seizures; ?? drug or alcohol addiction, or mental illness; ?? liver or kidney disease; ?? urination problems; or ?? problems with your gallbladder, pancreas, or thyroid. If you use opioid medicine while you are , your baby could become dependent on the drug. This can cause life-threatening withdrawal symptoms in the baby after it is born. Babies born dependent on opioids may need medical treatment for several weeks. Do not breast-feed. Oxycodone can pass into breast milk and may cause drowsiness, breathing problems, or in a nursing baby. How should I use oxycodone? Follow the directions on your prescription label and read all medication guides. Never use oxycodone in larger amounts, or for longer than prescribed. Tell your doctor if you feel an increased urge to take more of this medicine. Never share opioid medicine with another person, especially someone with a history of drug abuse or addiction. MISUSE CAN CAUSE ADDICTION, OVERDOSE, OR . Keep the medication in a place where others cannot get to it. Selling or giving away opioid medicine is against the law. Stop taking all other wluwzf-iog-iitct narcotic pain medicines when you start taking extended-release oxycodone. Take oxycodone with food. Swallow the capsule or tablet whole to avoid exposure to a potentially fatal overdose. Do not crush, chew, break, open, or dissolve. Never crush or break an oxycodone pill to inhale the powder or mix it into a liquid to inject the drug into your vein. This can cause in . Measure liquid medicine carefully. Use the dosing syringe provided, or use a medicine dose-measuring device (not a kitchen spoon). You should not stop using oxycodone suddenly. Follow your doctor's instructions about tapering your dose. Store at room temperature, away from heat, moisture, and light. Keep track of your medicine. Oxycodone is a drug of abuse and you should be aware if anyone is using your medicine improperly or without a prescription. Do not keep leftover opioid medication. Just one dose can cause in someone using this medicine accidentally or improperly. Ask your pharmacist where to locate a drug take-back disposal program. If there is no take-back program, flush the unused medicine down the toilet. What happens if I miss a dose? Since oxycodone is used for pain, you are not likely to miss a dose. Skip any missed dose if it is almost time for your next dose. Do not use two doses at one time. What happens if I overdose? Seek emergency medical attention or call the Poison Help line at . An oxycodone overdose can be fatal, especially in a child or other person using the medicine without a prescription. Overdose can cause severe muscle weakness, pinpoint pupils, very slow breathing, extreme drowsiness, or coma. What should I avoid while using oxycodone? Do not drink alcohol. Dangerous side effects or could occur. Avoid driving or operating machinery until you know how oxycodone will affect you. Dizziness or severe drowsiness can cause falls or other accidents. Avoid medication errors. Always check the brand and strength of oxycodone you get from the pharmacy. What are the possible side effects of oxycodone? Get emergency medical help if you have signs of an allergic reaction: hives; difficult breathing; swelling of your face, lips, tongue, or throat. Opioid medicine can slow or stop your breathing, and may occur. A person caring for you should seek emergency medical attention if you have slow breathing with long pauses, blue colored lips, or if you are hard to wake up. Call your doctor at once if you have: ?? noisy breathing, sighing, shallow breathing, breathing that stops during sleep; ?? a slow heart rate or weak pulse; ?? a light-headed feeling, like you might pass out; ?? confusion, unusual thoughts or behavior; ?? seizure (convulsions); or ?? low cortisol levels-- nausea, vomiting, loss of appetite, dizziness, worsening tiredness or weakness. Seek medical attention right away if you have symptoms of serotonin syndrome, such as: agitation, confusion, fever, sweating, fast heart rate, chest pain, feeling short of breath, muscle stiffness, trouble walking, or feeling faint. Serious side effects may be more likely in older adults and those who are malnourished or debilitated. Long-term use of opioid medication may affect fertility (ability to have children) in men or women. It is not known whether opioid effects on fertility are permanent. Common side effects may include: ?? drowsiness, headache, dizziness, tiredness; or ?? constipation, stomach pain, nausea, vomiting. This is not a complete list of side effects and others may occur. Call your doctor for medical advice about side effects. You may report side effects to FDA at 4-354-JAF-7412. What other drugs will affect oxycodone? You may have breathing problems or withdrawal symptoms if you start or stop taking certain other medicines. Tell your doctor if you also use an antibiotic, antifungal medication, heart or blood pressure medication, seizure medication, or medicine to treat HIV or hepatitis C. Opioid medication can interact with many other drugs and cause dangerous side effects or . Be sure your doctor knows if you also use: ?? cold or allergy medicines, bronchodilator asthma/COPD medication, or a diuretic ('water pill'); ?? medicines for motion sickness, irritable bowel syndrome, or overactive bladder; ?? other narcotic medications--opioid pain medicine or prescription cough medicine; ?? a sedative like Valium--diazepam, alprazolam, lorazepam, Xanax, Klonopin, Versed, and others; ?? drugs that make you sleepy or slow your breathing--a sleeping pill, muscle relaxer, medicine to treat mood disorders or mental illness; or ?? drugs that affect serotonin levels in your body--a stimulant, or medicine for depression, Parkinson's disease, migraine headaches, serious infections, or nausea and vomiting. This list is not complete and many other drugs may affect oxycodone. This includes prescription and hcvj-qzx-abtvkqj medicines, vitamins, and herbal products. Not all possible drug interactions are listed here. Where can I get more information? Your pharmacist can provide more information about oxycodone. Remember, keep this and all other medicines out of the reach of children, never share your medicines with others, and use this medication only for the indication prescribed. Every effort has been made to ensure that the information provided by [employer]. ('10[employer]') is accurate, up-to-date, and complete, but no guarantee is made to that effect. Drug information contained herein may be time sensitive. [employer] information has been compiled for use by healthcare practitioners and consumers in the [place] and therefore [employer] does not warrant that uses outside of the [place] are appropriate, unless specifically indicated otherwise. [employer] drug information does not endorse drugs, diagnose patients or recommend therapy. [employer] drug information is an informational resource designed to assist licensed healthcare practitioners in caring for their patients and/or to serve consumers viewing this service as a supplement to, and not a substitute for, the expertise, skill, knowledge and judgment of healthcare practitioners. The absence of a warning for a given drug or drug combination in no way should be construed to indicate that the drug or drug combination is safe, effective or appropriate for any given patient. [employer] does not assume any responsibility for any aspect of healthcare administered with the aid of information [employer] provides. The information contained herein is not intended to cover all possible uses, directions, precautions, warnings, drug interactions, allergic reactions, or adverse effects. If you have questions about the drugs you are taking, check with your doctor, nurse or pharmacist. Copyright 0228-3147 [employer]. Version: 13.03. Revision Date: 12/29/2018. tramadol (TRAM a dol) ConZip, Ultram, Ultram ER What is the most important information I should know about tramadol? MISUSE OF THIS MEDICINE CAN CAUSE ADDICTION, OVERDOSE, OR . Keep the medication in a place where others cannot get to it. Tramadol should not be given to a child younger than 12 years old. Ultram ER should not be given to anyone younger than 18 years old. Taking tramadol during may cause life-threatening withdrawal symptoms in the . Fatal side effects can occur if you use tramadol with alcohol, or with other drugs that cause drowsiness or slow your breathing. What is tramadol? Tramadol is an pain medicine similar to an opioid (sometimes called, a narcotic). Tramadol is used to treat moderate to severe pain. The extended-release form of this medicine is for ykerhy-xbv-oxwpk treatment of pain. This form of tramadol is not for use on an as-needed basis for pain. Tramadol may also be used for purposes not listed in this medication guide. What should I discuss with my healthcare provider before taking tramadol? You should not take tramadol if you are allergic to it, or if you have: ?? severe asthma or breathing problems; ?? a blockage in your stomach or intestines; ?? if you have recently used alcohol, sedatives, tranquilizers, or narcotic medications; or ?? if you have used an MAO inhibitor in the past 14 days (such as isocarboxazid, linezolid, methylene blue injection, phenelzine, rasagiline, selegiline, or tranylcypromine). Tramadol should not be given to a child younger than 12 years old. Ultram ER should not be given to anyone younger than 18 years old. Do not give tramadol to anyone younger than 18 years old who recently had surgery to remove the tonsils or adenoids. Seizures have occurred in some people taking tramadol. Talk with your doctor about your seizure risk, which may be higher if you have ever had: ?? a head injury, epilepsy or other seizure disorder; ?? drug or alcohol addiction; or ?? a metabolic disorder. Tell your doctor if you have ever had: ?? breathing problems, sleep apnea; ?? liver or kidney disease; ?? urination problems; ?? problems with your gallbladder, pancreas, or thyroid; ?? a stomach disorder; or ?? mental illness, or suicide attempt. If you use tramadol while you are , your baby could become dependent on the drug. This can cause life-threatening withdrawal symptoms in the baby after it is born. Babies born dependent on habit-forming medicine may need medical treatment for several weeks. Do not breast-feed. Tramadol can pass into breast milk and cause drowsiness, breathing problems, or in a nursing baby. How should I take tramadol? Follow the directions on your prescription label and read all medication guides. Never use tramadol in larger amounts, or for longer than prescribed. Tell your doctor if you feel an increased urge to take more of this medicine. Never share this medicine with another person, especially someone with a history of drug abuse or addiction. MISUSE CAN CAUSE ADDICTION, OVERDOSE, OR . Keep the medicine in a place where others cannot get to it. Selling or giving away tramadol is against the law. Stop taking all other vpjmux-dxb-ntaig narcotic pain medications when you start taking tramadol. Tramadol can be taken with or without food, but take it the same way each time. Swallow the capsule or tablet whole to avoid exposure to a potentially fatal overdose. Do not crush, chew, break, open, or dissolve. Never crush or break a tramadol pill to inhale the powder or mix it into a liquid to inject the drug into your vein. This practice has resulted in . Do not stop using tramadol suddenly, or you could have unpleasant withdrawal symptoms. Ask your doctor how to safely stop using tramadol. Store at room temperature away from moisture and heat. Keep track of your medicine. You should be aware if anyone is using it improperly or without a prescription. Do not keep leftover opioid medication. Just one dose can cause in someone using this medicine accidentally or improperly. Ask your pharmacist where to locate a drug take-back disposal program. If there is no take-back program, mix the leftover medicine with cat litter or coffee grounds in a sealed plastic bag throw the bag in the trash. What happens if I miss a dose? Since tramadol is used for pain, you are not likely to miss a dose. Skip any missed dose if it is almost time for your next dose. Do not use two doses at one time. What happens if I overdose? Seek emergency medical attention or call the Poison Help line at . A tramadol overdose can be fatal, especially in a child or other person using the medicine without a prescription. Overdose symptoms may include slow heart rate, severe drowsiness, cold and clammy skin, very slow breathing, or coma. What should I avoid while taking tramadol? Do not drink alcohol. Dangerous side effects or could occur. Avoid driving or hazardous activity until you know how this medicine will affect you. Dizziness or drowsiness can cause falls, accidents, or severe injuries. What are the possible side effects of tramadol? Get emergency medical help if you have signs of an allergic reaction (hives, difficult breathing, swelling in your face or throat) or a severe skin reaction (fever, sore throat, burning in your eyes, skin pain, red or purple skin rash that spreads and causes blistering and peeling). This medicine can slow or stop your breathing, and may occur. A person caring for you should seek emergency medical attention if you have slow breathing with long pauses, blue colored lips, or if you are hard to wake up. Call your doctor at once if you have: ?? noisy breathing, sighing, shallow breathing, breathing that stops during sleep; ?? a slow heart rate or weak pulse; ?? a light-headed feeling, like you might pass out; ?? seizure (convulsions); or ?? low cortisol levels--nausea, vomiting, loss of appetite, dizziness, worsening tiredness or weakness. documented in this encounter Plan of Treatment Not on file documented as of this encounter Visit Diagnoses Not on filedocumented in this encounter
--- OUTSIDE RECORDS SUMMARY | 2024-09-08 15:12 | XMS_ITS | Encounter Summary ---
Author Organization [employer] Address [address] [place] [address] Care Team Providers Care Remote Sensing Technician Name Role Phone Unavailable Primary Care Provider Unavailabl e Encounter Details Date Type Department Care Team (Late st Contact Info) Description 05/16/2019 Transcribed Document [facility] [place] Family Medicine [facility] [place] [address] ProviderLexi MD [address] [place] [id number] Social History Tobacco Use Types Packs/Day [...] Conversion Note - Historical ProviderMD - 05/16/2019 4:01 PM BATH HOUSE ATTENDANT Nursing Discharge Summary Entered On: 05/16/2019 16:02 EST Performed On: 05/16/2019 16:01 EST by MICHELLE DURON LPN Discharge Documentation Discharge Date/Time : 05/16/2019 14:56 EST Patient Disposition, General : Discharge Discharge To : Home with ambulatory/outpatient follow-up Mode Of Departure, General Discharge : Private vehicle Accompanied By, Discharge : Son IV Discontinued : Yes Medications Given to Patient : No Personal Belongings With Patient : No Pt's Own Supply of Medications Returned : No Prescriptions Given to Patient : Yes Discharge Instructions Reviewed With, Opportunity For Questions Given : Patient Patient Education Completed : Yes Teaching Method : Explanation, Printed materials Teaching Evaluation : Verbalizes understanding Worker's Compensation Paperwork Completed : No Discharge, Comment : patient discharged home stable condition with oxygen at 2 liters MICHELLE DURON LPN - 05/16/2019 16:01 EST Electronically signed by Angelika [facility] Conversion Canoe Inspector Cerner at 07/02/2022 4:53 PM CDT documented in this encounter Plan of Treatment Not on file documented as of this encounter Visit Diagnoses Not on filedocumented in this encounter
--- OUTSIDE RECORDS SUMMARY | 2024-09-08 15:12 | XMS_ITS | Encounter Summary ---
Author Organization [employer] Address [address] [place] [id number] Care Team Providers Care Director Pharmacovigilance Name Role Phone Unavailable Primary Care Provider Unavailabl e Encounter Details Date Type Department Care Team (Late st Contact Info) Description 05/16/2019 Transcribed Document [facility] [place] [facility] [place] [address] ProviderLexi MD [address] [place] [id number] Social History Tobacco Use Types Packs/Day [...] Conversion Note - Lexi ProviderMD - 05/16/2019 3:17 PM INSIDE SALES DIRECTOR Patient: TAY FONSECA Age: 73 Years Sex: Female : 1945 Admit Date 05/13/2019 09:44 Discharge Date 05/16/2019 14:56 Primary Care Provider LILIAN MARINA MD Discharge Diagnosis Arthritis with severe DJD Had right hip replacement on 05/12 Mild hypoxia, mainly at nighttime and with activity Likely due to atelectasis, with possible underlying undiagnosed COPD/ANIA Diabetes mellitus type 2 Acute kidney injury Likely prerenal and resolved Hypertension Hyperlipidemia Hypothyroidism Constipation Received Dulcolax suppository and had a BM Morbid obesity Procedures SN - Proc - Procedure: Hip Total Anterior Approach (05/12/19 10:22:59) Reason for Hospitalization HPI: This patient is a pleasant 73 yo old XX with PMH of DJD, DM Type 2, hyperlipidemia, and hypothyroidism. She presented today for a Right Total Hip Arthroplasty via Anterior Approach performed by Dr. Sen. She admits the right hip pain has been progressively worsening over the last 3 years and began to affect her ADLs. Medications and joint injections did not provide relief. She ambulates independently at baseline. She denies chest pain, dyspnea, cough, palpitations, dizziness, fevers, chills, diaphoresis, abdominal pain, nausea, vomiting or diarrhea. No acute distress noted. Pt denies a h/o DVT/PE. No trouble with anesthesia in the past. No respiratory conditions including COPD/ANIA/asthma. Hospital Course Patient underwent Right ATHA without any immediate postoperative complications. She was admitted to orthopedics floor for postoperative care. Her pain was well controlled. She worked with physical therapy. During hospital stay she developed mild HEATHER which resolved with IV fluids. She developed constipation which resolved with bowel regimen. It was felt that she would benefit from short-term rehab placement after discharge from the hospital and this was arranged by case management. During hospital stay, patient was noted to have some oxygen desaturation, mainly at nighttime and with activity. Patient was asymptomatic and denied any chest pain or shortness of breath. She is an ex-smoker but denied any prior diagnosis of COPD. Chest x-ray was obtained which showed bilateral lower lung atelectasis but no other acute cardiopulmonary abnormality. Her hypoxia was felt to be related to atelectasis in the setting of possible underlying COPD with her history of smoking and possible underlying sleep apnea/obesity hypoventilation with her morbid obesity. It was advised that patient be continued on supplemental oxygen via nasal cannula to keep sats above 90%, at the rehab facility, after discharge from the hospital. She will require evaluation for home oxygen requirement at the time of discharge from rehabilitation facility. Patient was also advised to follow-up with PCP as outpatient for arranging PFTs and outpatient sleep study for further evaluation. Patient will follow-up with orthopedic surgery and her PCP for further care and management. Patient was counseled regarding her medical condition and need for follow-up and she voiced understanding of the same. Patient was discharged to rehab facility in stable condition. Vital Signs Oxygen Settings (Last) Oxygen Therapy Mode: Nasal cannula (05/16/19 13:00:00) Oxygen Flow Rate: 2 Liter/Min (05/16/19 13:00:00) Physical Exam General: Alert and oriented, well [...] mood and affect Neurologic: Awake, alert, and oriented, no gross focal deficits Discharge Disposition Rehabilitation unit/facility Discharge Follow Up Follow up with primary care provider - Within 1 week SAIMA DUKES PA-C - 10:00 AM Discharge Medications (14) Active citalopram 40 mg, Oral, Daily Colace 100 mg oral capsule 100 mg = 1 Cap, Oral, BID GlipiZIDE XL 10 mg oral tablet, extended release 20 mg = 2 Tab, Oral, Daily hydroCHLOROthiazide-lisinopril 12.5 mg-20 mg oral tablet 1 Tab, Oral, Daily levothyroxine 50 mcg, Oral, Daily Multiple Vitamins oral capsule , Oral, Daily Protonix 40 mg oral delayed release tablet 40 mg = 1 Tab, Oral, Daily Senokot S 2 Tab, Oral, At Bedtime simvastatin 40 mg, Oral, QPM traMADol 50 mg oral tablet 50 mg = 1 Tab, Oral, Q6H While Awake Tylenol 1,000 mg = 2 Tab, Oral, Q6HInt Vitamin D2 50,000 Int Units, Oral, Saturday Zofran 2 mg/mL injectable solution 4 mg = 2 mL, PRN, IV Push, Q8H Oxycodone 5mg 1-2 tabs every 6 hours PRN pain Dilaudid 2mg Q6hrs PRN (extreme pain only, this is not for management of pain but for rescue only) ECASA 81mg BID x 6 weeks Gabapentin 300mg 1 tab QHS Condition on Discharge Stable and improved. [employer] FRANCISCO MURO DO-ANS Current Diet Order No qualifying data available. Pending Labs No Labs on Record Time Spent on Discharge 35 minutes documented in this encounter Plan of Treatment Not on file documented as of this encounter Visit Diagnoses Not on filedocumented in this encounter
--- OUTSIDE RECORDS SUMMARY | 2024-09-08 15:12 | XMS_ITS | Encounter Summary ---
Author Organization [employer] Address [address] [place] [address] Care Team Providers Care Operations Agent Name Role Phone Unavailable Primary Care Provider Unavailabl e Encounter Details Date Type Department Care Team (Late st Contact Info) Description 04/24/2019 Transcribed Document [facility] [place] Family Medicine [facility] [place] [address] ProviderLexi MD [address] [place] [id number] Social History Tobacco Use Types Packs/Day [...] Cerner Conversion Note - Lexi ProviderMD - 04/24/2019 11:06 AM ACCOUNTING RECRUITER Patient: TAY FONSECA Age: 73 Years Sex: Female : 1945 Chief Complaint Right Hip Pain Primary Care Provider LILIAN MARINA MD History of Present Illness This patient is a pleasant 73 yo WF who presents with right hip pain. The pain has been going on for 3 years but has gotten progressively worse. She describes it as a sharp pain. It is now to the point that it is affecting her ADLs. She has tried NSAIDs and injections without relief of her pain. She has fallen. She has not used an assistive device. She was seen at Dr Sen's office and evaluated and it was determined that she has severe DJD affecting the right hip. Pt was offered a Right Total Hip Arthroplasty via Anterior Approach and agreed to the procedure. Pt denies a h/o DVT/PE. No trouble with anesthesia in the past. No respiratory conditions including COPD/ANIA/asthma. Review of Systems Constitutional: Neg for fevers or chills. Eyes: Neg for blurry vision or change in vision. ENT: Neg for sore throat, ear pain, or dizziness. Cardiac: Neg for chest pain or dyspnea on exertion. Respiratory: Neg for shortness of breath. Gastrointestinal: Neg for nausea, vomiting, diarrhea, or constipation. Musculoskeletal: Pos for right hip pain. Neurologic: Neg for headaches or seizures. Psychiatric: Neg for anxiety and depression. Integumentary: Neg for rash. Vital Signs Oxygen Settings (Last) Oxygen Therapy Mode: Room air (04/24/19 12:07:00) Physical Exam Constitutional: This is a pleasant 73 yo WF, BMI 44, in no acute distress. HEENT: Normocephalic, atraumatic. PEERLA. Extraocular muscles intact. Conjunctiva pink without exudate. Oropharynx pink and moist. Neck supple. No JVD. Cardiac: SI, S2. RRR. No M/R/G. Respiratory: Lungs CTA bilaterally. No wheezes, rales, or rhonchi. Abdomen: Soft, nontender, nondistended. Active bowel sounds. No visible masses. Musculoskeletal: Right Hip Flexion 110, IR 20, ER 20. Integumentary: Skin is pink, warm and dry. No rashes. Neurologic: CN II-XII grossly intact. Psychiatric: Judgment and affect appropriate. Assessment/Plan 1. Preoperative Evaluation- Pt underwent preoperative laboratory workup and diagnostic studies. This included a medical evaluation from her PCP who provided her with clearance to proceed with surgery. 2. Right Hip Pain secondary to DJD- Proceed with surgery as scheduled with Dr Sen on 05/12/2019. 3. Hypertension- Continue Lisinopril/HCTZ and Furosemide. 4. Diabetes Mellitus- FSBS and SSI. 5. Hyperlipidemia- Continue Simvastatin. 6. Hypothyroidism- Continue Synthroid. 7. Depression- Continue Citalopram. I FEEL THAT THIS PATIENT SHOULD REQUIRE INPATIENT HOSPITALIZATION UNLESS DEEMED OTHERWISE APPROPRIATE BY THE ORTHOPEDIC SURGEON GIVEN THE COMPLEXITY OF THE OPERATION. SHE LIVES ALONE AND HER SISTER IS UNDERGOING CHEMO AT THIS TIME. Problem List/Past Medical History Ongoing Anxiety At risk for sleep apnea Diabetes High cholesterol Hypertension Hypothyroid Vitamin D deficiency Procedure/Surgical History hysterectomy, lap band, left ankle ORIF, VD x1. Home Medications (8) Active citalopram 40 mg, Oral, Daily furosemide 40 mg, Oral, Daily glipiZIDE 20 mg, Oral, Daily hydroCHLOROthiazide-lisinopril 12.5 mg-20 mg oral tablet 1 Tab, Oral, Daily levothyroxine 50 mcg, Oral, Daily pioglitazone 30 mg, Oral, Daily simvastatin 40 mg, Oral, QPM Vitamin D2 50,000 Int Units, Oral, Weekly Allergies Trace Metals (all jewelry causes a rash) penicillin (hives) Social History Alcohol Alcohol Use History No. Use in Last 12 Months: No. Substance Abuse Drug Use Hx: No. Use in Last 12 Months: No. Tobacco Former smoker, quit more than 30 days ago Smoking Status. Never Smokeless Tobacco Status. Last Used: 1997. Family History Pt mother at 84 from CHF. Pt father at 62 from Prostate Cancer. Diagnostic Results EKG- NSR, 96 CXR- NAD Lab Results WBCs- 6.2 Hbg- 11.9 Hct- 37.7 Plts- 158 Glucose- 141 Na- 145 K- 3.9 BUN- 9 Cr- 0.8 GFR- 74 Albumin- 88 Prealbumin- 18 Hbg A1C- 6.8 PT- 10.8 INR- 1.0 PTT- 29 UA is neg for nitrites and small LE; urine culture shows contamination only. documented in this encounter Plan of Treatment Not on file documented as of this encounter Visit Diagnoses Not on filedocumented in this encounter
--- OUTSIDE RECORDS SUMMARY | 2024-09-08 15:12 | XMS_ITS | Encounter Summary ---
Author Organization [email or web address] Address [address] [place] [address] Care Team Providers Care Motion Picture Projectionist Name Role Phone Unavailable Primary Care Provider Unavailabl e Encounter Details Date Type Department Care Team (Late st Contact Info) Description 05/16/2019 Transcribed Document [facility] [place] Family Medicine [address] [place] [address] ProviderLexi MD [address] [place] [address] Social History Tobacco Use Types [...] Conversion Note - Lexi ProviderMD - 05/16/2019 9:53 AM ORACLE IAM CONSULTANT Discharge Instructions Entered On: 05/16/2019 9:55 EST Performed On: 05/16/2019 9:53 EST by VICKIE DEGROOT MD DC Instructions HWD Diet After Discharge : Heart healthy diet, Diabetic diet Activity After Discharge : Other: As recommended by orthopedic surgery. Special Instructions : Use supplemental oxygen by nasal canula as needed to keep sats above 90%. Please return to ER for any new or worsening symptoms. VICKIE DEGROOT MD - 05/16/2019 9:53 EST Electronically signed by Angelika [facility] Conversion Machine Operations Supervisor Cerner at 07/02/2022 4:51 PM CDT documented in this encounter Plan of Treatment Not on file documented as of this encounter Visit Diagnoses Not on filedocumented in this encounter
--- OUTSIDE RECORDS SUMMARY | 2024-09-08 15:12 | XMS_ITS | Encounter Summary ---
Author Organization [email or web address] Address [address] [place] [address] Care Team Providers Care Electrician Apprentice Powerhouse Name Role Phone Unavailable Primary Care Provider Unavailabl e Encounter Details Date Type Department Care Team (Late st Contact Info) Description 05/16/2019 Transcribed Document [facility] [place] Medicine [facility] [place] [address] ProviderLexi MD [facility] [place] [address] Social History Tobacco Use Types [...] Conversion Note - Historical ProviderMD - 05/16/2019 2:00 AM TURF SALES PERSON Travel Consultant Details Entered On: 05/16/2019 4:23 EST Performed On: 05/16/2019 2:00 EST by Lacey Fernandez RN Order Details Transport Mode Order Detail : Wheelchair Isolation Precautions Order Detail : Standard Precautions Order Detail : N/A IV Order Detail : 1 Oxygen Order Detail : 1 Nurse Collect Order Detail : 0 Lift/Transfer : Minimal Central Line Order Detail : No Room Service : Appropriate Arterial Line : No Lacey Fernandez, KOBE - 05/16/2019 4:23 EST documented in this encounter Plan of Treatment Not on file documented as of this encounter Visit Diagnoses Not on filedocumented in this encounter
--- OUTSIDE RECORDS SUMMARY | 2024-09-08 15:12 | XMS_ITS | Encounter Summary ---
Author Organization [employer] Address [address] [place] [address] Care Team Providers Care Cloth Printing Utility Worker Name Role Phone Unavailable Primary Care Provider Unavailabl e Encounter Details Date Type Department Care Team (Late st Contact Info) Description 05/16/2019 Transcribed Document [facility] [place] Family Medicine [facility] [place] [address] ProviderLexi MD [address] [place] [address] Social History Tobacco Use Types Packs/Day [...] Conversion Note - Historical ProviderMD - 05/16/2019 1:00 AM SUPERVISOR COFFEE Pain Assessment Entered On: 05/16/2019 4:23 EST Performed On: 05/16/2019 0:07 EST by Lacey Fernandez RN Intervention Information: acetaminophen Performed by Lacey Fernandez RN on 05/15/2019 23:07:00 EST acetaminophen,1000mg Oral(c) Pain Assessment Pain Assessment : Follow-up assessment Pain Scale Goal : 4 Pain Scale Used : 0-10 Scale Onset : Gradual Quality : Aching Pain Radiation : No Pain Intervention, Drug : Medicated Pain Improved by Intervention : Yes Lacey Fernandez RN - 05/16/2019 4:23 EST Pain Scale Intensity : 2 Lacey Fernandez RN - 05/16/2019 4:23 EST Image 4 - Images currently included in the form version of this document have not been included in the text rendition version of the form. documented in this encounter Plan of Treatment Not on file documented as of this encounter Visit Diagnoses Not on filedocumented in this encounter
--- OUTSIDE RECORDS SUMMARY | 2024-09-08 15:12 | XMS_ITS | Clinical Summary ---
Author Organization [facility] Address [address] [place] [address] Phone Care Team Providers Care Transmission Calibration Engineer Name Role Phone Pcp, Pending Only MD [...] 01/05/2013 3:06 PM EDT Plan of Treatment Health Maintenance Due Date Last Done Comments Hepatitis C Screening 1945 DTap,Tdap,and Td (1 - Tdap) 11/08/1958 Pneumococcal 50+ (1 of 1 - PCV) 11/08/1997 Shingrix (#1) 11/08/1997 DEXA Scan 11/08/2012 RSV Vaccine (60+ or ) (1 - 1-dose 75+ series) 11/08/2022 Influenza Vaccine (Season Ended) 2024 HPV Aged Out No longer eligi ble based on patient's age to complete this topic Meningococcal conjugate huy nt 4 (MCV4) Aged Out No longer eligible b ased on patient's age to complete this topic RSV Immunization (<20 months) Aged Out No longer eligible based on patient's age to complete this topic Insurance MEDICARE on file AARP MCR SUPPLEMENT MEDICARE on file AARP MCR SUPPLEMENT Care Teams Transmission Calibration Engineer Relationship Specialty Start Date End Date Pcp, Pending Only, [place], [place] [id number] PCP - General Internal Medicine 01/05/13
--- OUTSIDE RECORDS SUMMARY | 2024-09-08 15:12 | XMS_ITS | Encounter Summary ---
Author Organization [employer] Address [address] [place] [address] Care Team Providers Care Pan Tank Worker Name Role Phone Unavailable Primary Care Provider Unavailabl e Encounter Details Date Type Department Care Team (Late st Contact Info) Description 05/16/2019 Transcribed Document [facility] [place] [facility] [place] [address] ProviderLexi MD [address] [place] [address] Social History Tobacco Use Types [...] Conversion Note - Lexi ProviderMD - 05/16/2019 12:29 PM TELEVISION REPAIRER Patient Education Materials Follows: What to expect after the Procedure: After the procedure, it is common to have: ?? Pain and swelling. ?? A small amount of blood or clear fluid coming from your incision for up to 7 days ?? It is normal to have a moderate amount of bleeding from the site of the drain that was pulled on the morning after surgery. You can hold pressure on the area for 3-5 minutes and cover with a bandage as needed. Diet: ?? Resume usual diet ?? No alcoholic beverages while taking pain medication ?? Drink 8-10 glasses of water a day to prevent constipation from pain medication ?? Increase fiber to help prevent constipation. Straining can cause increased pressure and pain in your incision area ?? Increase protein to promote healing Driving: ?? Do not drive until your health care provider approves. Ask your health care provider when it is safe to drive if you have an immobilizer on your knee. ?? Do not drive or operate heavy machinery while taking prescription pain medicine. ?? Do not drive for 24 hours if you received a sedative. Activity: ?? Do not lift anything that is heavier than 10 lb (4.5 kg) until your health care provider approves. ?? No strenuous activity ?? Avoid high-impact activities, including running, jumping rope, and jumping jacks. ?? Avoid sitting for a long time without moving. Get up and move around at least every few hours. ?? Keep legs elevated while seated and place surgery leg on 2-3 pillows, this will decrease swelling ?? Continue using walker until cleared by physical therapy Bathing: ?? Do not take baths, swim, or use a hot tub for one month after surgery. ?? May shower on the third day after surgery by covering incision with Glad Brand Press and Seal saran wrap. After showering, dry off completely BEFORE removing saran wrap. ?? Use Press and Seal saran wrap to shower for one month after surgery ?? You must be seated to shower until you are no longer using the walker Other: ?? Use ice therapy for 20-30 minutes at a time and leave off for 20-30 minutes at a time. Always keep a towel or cloth between the ice pack and your skin ?? Continue to use Incentive Spirometer 10 times an hour while awake for one month to help prevent pneumonia. ?? Wear compression stockings for 6 weeks. ?? Take Aspirin 81mg twice a day for 45 days. ?? Leave the dressing in place for 7 days then leave it open to air. Contact a health care provider if: ?? You have more redness, swelling, or pain around your incision. ?? You have more fluid or blood coming from your incision. ?? Your incision or drain site feels warm to the touch. ?? You have pus or a bad smell coming from your incision. ?? You have a fever. ?? Your incision breaks open after your health care provider removes your sutures, skin glue, or adhesive tape. ?? Your prosthesis feels loose. ?? You have knee pain that does not go away. DVT: Blood Clot Blood clots are a common risk after an orthopedic surgery Symptoms: ?? Swelling of your leg or arm, especially if one side is much worse. ?? Warmth and redness of your leg or arm, especially if one side is much worse. ?? Pain in your arm or leg. If the clot is in your leg, symptoms may be more noticeable or worse when you stand or walk. ?? A feeling of pins and needles, if the clot is in the arm. The symptoms of a DVT that has traveled to the lungs (pulmonary embolism, PE) usually start suddenly and include: ?? Shortness of breath while active or at rest. ?? Coughing or coughing up blood or blood-tinged mucus. ?? Chest pain that is often worse with deep breaths. ?? Rapid or irregular heartbeat. ?? Feeling light-headed or dizzy. ?? Fainting. ?? Feeling anxious. ?? Sweating. There may also be pain and swelling in a leg if that is where the blood clot started. How is this prevented? ?? Exercise regularly. For at least 30 minutes every day, engage in: -Activity that involves moving your arms and legs. -Activity that encourages good blood flow through your body by increasing your heart rate. ?? Exercise your arms and legs every hour during long-distance travel (over 4 hours). ?? Drink plenty of water and avoid drinking alcohol while traveling. ?? Avoid sitting or lying in bed for long periods of time without moving your legs. ?? Maintain a weight that is appropriate for your height. Ask your health care provider what weight is healthy for you. ?? If you are a woman who is over 35 years of age, avoid unnecessary use of medicines that contain estrogen. These include control pills. ?? Do not smoke, especially if you take estrogen medicines. If you need help quitting, ask your health care provider. ?? Wear compression stockings (if told by your health care provider) to help prevent blood clots from forming. High Fiber/High Protein Diet High fiber foods: To prevent constipation Grains Whole-grain breads. Multigrain cereal. Oats and oatmeal. Brown rice. Barley. Bulgur wheat. Millet. Bran muffins. Popcorn. Crawford wafer crackers. Vegetables Sweet potatoes. Spinach. Kale. Artichokes. Cabbage. Broccoli. Green peas. Carrots. Squash. Fruits Berries. Pears. Apples. Oranges. Avocados. Prunes and raisins. Dried figs. Meats and Other Protein Sources Spray, kidney, kaplan, and soy beans. Split peas. Lentils. Nuts and seeds. Dairy Fiber-fortified yogurt. Beverages Fiber-fortified soy milk. Fiber-fortified orange juice. Other Fiber bars. High-protein foods: To promote healing High-protein foods contain 4 grams (4 g) or more of protein per serving. They include: ?? Beef, ground sirloin (cooked) ??? 3 oz have 24 g of protein. ?? Cheese (hard) ??? 1 oz has 7 g of protein. ?? Chicken breast, boneless and skinless (cooked) ??? 3 oz have 13.4 g of protein. ?? Cottage cheese ??? 1/2 cup has 13.4 g of protein. ?? Egg ??? 1 egg has 6 g of protein. ?? Fish, filet (cooked) ??? 1 oz has 6???7 g of protein. ?? Garbanzo beans (canned or cooked) ??? 1/2 cup has 6???7 g of protein. ?? Kidney beans (canned or cooked) ??? 1/2 cup has 6???7 g of protein. ?? Duque (cooked) ??? 3 oz has 24 g of protein. ?? Milk ??? 1 cup (8 oz) has 8 g of protein. ?? Nuts (peanuts, pistachios, almonds) ??? 1 oz has 6 g of protein. ?? Peanut butter ??? 1 oz has 7???8 g of protein. ?? Pork tenderloin (cooked) ??? 3 oz has 18.4 g of protein. ?? Pumpkin seeds ??? 1 oz has 8.5 g of protein. ?? Soybeans (roasted) ??? 1 oz has 8 g of protein. ?? Soybeans (cooked) ??? 1/2 cup has 11 g of protein. ?? Soy milk ??? 1 cup (8 oz) has 5???10 g of protein. ?? Soy or vegetable harrison ??? 1 harrison has 11 g of protein. ?? [place] seeds ??? 1 oz has 5.5 g of protein. ?? Tofu (firm) ??? 1/2 cup has 20 g of protein. ?? Tuna (canned in water) ??? 3 oz has 20 g of protein. ?? Yogurt ??? 6 oz has 8 g of protein. Fall Prevention ?? Use night lights. ?? Install grab bars by the toilet and in the tub and shower. Do not use towel bars as grab bars. ?? Use non-skid mats or decals on the floor of the tub or shower. ?? If you need to sit down while you are in the shower, use a plastic, non-slip stool. ?? Keep the floor dry. Immediately clean up any water that spills on the floor. ?? Remove soap buildup in the tub or shower on a regular basis. ?? Remove throw rugs and other tripping hazards from the floor. ?? Place frequently used items in uqev-tk-skgzi places ?? Keep electrical cables out of the way. ?? Do not leave any items on the stairs. ?? Make sure that there are handrails on both sides of the stairs. Fix handrails that are broken or loose. Make sure that handrails are as long as the stairways. ?? Check any carpeting to make sure that it is firmly attached to the stairs. Fix any carpet that is loose or worn. ?? Avoid having throw rugs at the top or bottom of stairways, or secure the rugs with carpet tape to prevent them from moving. ?? Wear closed-toe shoes that fit well and support your feet. Wear shoes that have rubber soles or low heels. ?? Use mobility aids as needed, such as canes, walkers, scooters, and crutches. ?? Turn on lights if it is dark. Replace any light bulbs that burn out. ?? Set up furniture so that there are clear paths. Keep the furniture in the same spot. ?? Be aware of any and all pets. ?? Review your medicines with your healthcare provider. Some medicines can cause dizziness or changes in blood pressure, which increase your risk of falling. Hand Washing You should wash your hands whenever you think they are dirty. You should also wash your hands: ??? After: ?? Working or playing outside. ?? Touching an animal or its toys or leash. ?? Handling livestock. ?? Using the bathroom. ?? Using household sandstone splitter or toxic chemicals. ?? Touching or taking out the garbage. ?? Touching anything dirty around your home. ?? Handling soiled clothes or rags. ?? Taking care of a sick child. This includes touching used tissues, toys, and clothes. ?? Sneezing, coughing, or blowing your nose. ?? Using public transportation. ?? Shaking hands. ?? Using a phone, including your mobile phone. ?? Touching money. ??? Before and after: ?? Preparing food. ?? Feeding a baby or young child. ?? Eating. ?? Visiting or taking care of someone who is sick. ?? Changing a diaper. ?? Changing a bandage (dressing) or taking care of an injury or wound. ?? Giving or taking medicine. If soap and [...] 4. Repeat the process for each step. ?? Always keep both feet within the width of the walker's legs or wheels. ?? When using your walker, you should not feel like you need to lean forward or to the side to keep your hands on the handgrips. ?? Make sure you are following any weight-bearing instructions that your health care provider has given you. ?? Be careful not to let the walker get too far ahead of you as you walk. ?? If your walker does not glide well [...] Keep items that you use often in qrbm-il-mzyiq places. Lower the shelves around your home [...] the way. ??? Do not use floor american or wax that makes floors slippery. If [...] information ??? Centers for Disease Control and PreventionLAKE: https://cdc.gov ??? National Trilla on Aging: https://it5hepv.bolivar.nih.gov Contact a doctor if: ??? You are [...] 12/29/2009 Document Revised: 10/17/2017 Document Reviewed: 10/17/2017 [employer] Interactive Patient Education ? 2019 [employer]. High-Fiber Diet Fiber, also called dietary fiber, [...] ??? Always check the fiber content on the?nutrition facts label of any prepackaged food. Look [...] Barley. Bulgur wheat. Millet. Bran muffins. Popcorn. Crawford wafer crackers. Vegetables Sweet potatoes. Spinach. Kale. Artichokes. Cabbage. Broccoli. Green peas. Carrots. Squash. Fruits Berries. Pears. Apples. Oranges. Avocados. Prunes and raisins. Dried figs. Meats and Other Protein Sources Spray, kidney, kaplan, and soy beans. Split peas. [...] 03/04/2006 Document Revised: 08/09/2016 Document Reviewed: 08/17/2014 Elsevier Interactive Patient Education ? 2018 [employer] documented in this encounter Plan of Treatment Not on file documented as of this encounter Visit Diagnoses Not on filedocumented in this encounter
--- OUTSIDE RECORDS SUMMARY | 2024-09-08 15:12 | XMS_ITS | Encounter Summary ---
Author Organization [employer] Address [address] [place] [address] Care Team Providers Care Supervisor Ovens Name Role Phone Unavailable Primary Care Provider Unavailabl e Encounter Details Date Type Department Care Team (Late st Contact Info) Description 05/16/2019 Transcribed Document [facility] [place] [facility] [place] [address] ProviderLexi MD [facility] [place] [address] Social History Tobacco Use Types [...] Conversion Note - Historical ProviderMD - 05/16/2019 4:00 PM FRUCTOSE LOADER Discharge Summary, PT Entered On: 05/19/2019 11:00 EST Performed On: 05/16/2019 16:00 EST by WILIAN KENNEDY, PT Discharge Summary Reason for Discharge : Discharged from hospital Discharged to, Therapy : Unit, [facility] Discharge Summary Comment, PT : 3/3 acute PT goals met. Modified Independent with transfers Ambulated 200' with RWx SBA/CGA 25# WB R LE PAULA HEP AROM x 20 reps D/C to [facility] for continued care and rehab on 05/16/19. WILIAN KENNEDY, PT - 05/19/2019 10:59 EST Food Beverage Supervisor Goals Other PT LTG Grid Goal #1 [...] 05/15/2019 EST 05/15/2019 EST Goal Status : Goal met Goal met Goal met Discontinue Date Met : 05/15/2019 EST 05/14/2019 EST 05/13/2019 EST Comment : anticipated d/c to rehab on Saturday05/16/2019 WILIAN KENNEDY, PT - 05/19/2019 10:59 EST WILIAN KENNEDY, PT - 05/19/2019 10:59 EST WILIAN KENNEDY, PT - 05/19/2019 10:59 EST WILIAN KENNEDY, PT - 05/19/2019 10:59 EST documented in this encounter Plan of Treatment Not on file documented as of this encounter Visit Diagnoses Not on filedocumented in this encounter
--- OUTSIDE RECORDS SUMMARY | 2024-09-08 15:12 | XMS_ITS | Encounter Summary ---
Author Organization [employer] Address [address] [place] [address] Care Team Providers Care Human Resources Communications Manager Name Role Phone Unavailable Primary Care Provider Unavailabl e Encounter Details Date Type Department Care Team (Late st Contact Info) Description 05/25/[address] [facility] [address] [place] [address] Alba River MD [address] [place], [place] [id number] Social History Tobacco Use Types Packs/Day Years [...] Conversion Note - Alba River MD - 05/25/2019 1:20 PM EDT PLEASE MODIFY BEFORE SIGNING CLINICAL DOCUMENTATION CLARIFICATION FORM: Dear Dr. Alba River Date / Time: 05/25/2019 09:40 Please exercise your independent, professional judgment in responding to the clarification form. Clinical indicators are provided on the bottom of this form for your review Kindly clarify Respiratory Failure ,if appropriate , Please check appropriate box(es): [ ] Acute respiratory failure due to an existing co-morbid condition: [ ] Acute on chronic respiratory failure due to an existing co-morbid condition: [ ] Acute respiratory failure related to the surgical procedure [ ] Acute on chronic respiratory failure related to the surgical procedure [ x ] Respiratory insufficiency due to an existing co-morbid condition: [ ] Respiratory insufficiency due to the surgical procedure [ ] Other diagnosis [ ] Unable to determine Physician Signature: Date/Time: For continuity of documentation, please document condition throughout progress notes and discharge summary. Thank You. To be completed by CDI/Coding staff for physician review: Present Clinical Indicators - Signs / Symptoms / Labs Results and Location in Medical Record [ X ] Mild hypoxia, mainly at nighttime and with activity Likely due to atelectasis, with possible underlying undiagnosed COPD/ANIA Documented in Discharge Summary on 05/16/[address] Vickie Gregory [ X ] Oxygen saturation ??? 83% on 05/12/2019 Heart Rate ??? 107 on 05/12/2019 Resp Rate ??? 23 on 05/12/2019 Documented in Lab Results Review [ X ] Oxygen saturation was going down to the 80s last night per nursing staff and she required 2 L oxygen by nasal cannula. She used incentive spirometry this morning and sats are now in the high 90s on room air . Documented in Progress Note on 05/16/[address] Vickie Gregory [ X ] Addendum by VICKIE GREGORY MD on May 16, 2019 14:42:42 Patient continues to have mild hypoxia with sats dropping to the 80s mainly with exertion and at nighttime Documented in Progress Note on 05/16/[address] Vickie Gregory [ X ] There are linear opacities at the lung bases bilaterally favored to be atelectasis Documented in Chest X Ray on 05/16/[address] Chiqui Welch Present Risk Factors Results and Location in Medical Record [ X ] Right Total Hip Arthroplasty Documented in Operative Report on 05/12/[address] Arnaud Sen [ X ] Advanced age ??? 73 Years Documented in Progress Note on 05/16/[address] Vickie Gregory [ X ] History of smoking and possible underlying sleep apnea/obesity hypoventilation with her morbid obesity Documented in Discharge Summary on 05/16/[address] Vickie Gregory Present Treatments Results and Location in Medical Record [ X ] Supplemental Oxygen ??? 5L/Min on 05/12/2019 Documented in Lab Results Review CDS/Gear Repair Supervisor Signature: Donovan Nunes Phone #: [phone] Extn [id number] Date/Time: 05/25/2019 09:40 This is a permanent part of the Medical Record Q54 2019 [facility] Updated: documented in this encounter Plan of Treatment Not on file documented as of this encounter Visit Diagnoses Not on filedocumented in this encounter
--- OUTSIDE RECORDS SUMMARY | 2024-09-08 15:12 | XMS_ITS | Clinical Summary ---
Author Organization [employer] Address [address] [place], [place] [address] Care Team Providers Care Decorator Mannequin Name Role Phone Unavailable Primary Care Provider [...]
--- OUTSIDE RECORDS SUMMARY | 2024-09-08 15:12 | XMS_ITS | Encounter Summary ---
Author Organization [employer] Address [address] [place] [address] Care Team Providers Care Plastic Manager Name Role Phone Unavailable Primary Care Provider Unavailtruman e Encounter Details Date Type Department Care Team (Late st Contact Info) Description 05/12/2019 Transcribed Document [facility] [place] [facility] [place] [address] ProviderLexi MD [address] [place] [address] Social History Tobacco Use Types [...] Conversion Note - Historical ProviderMD - 05/12/2019 4:12 PM DEPUTY FIRE MARSHAL Patient: TAY ARDON Age: 73 years Sex: Female : 1945 Associated Diagnoses: None Author: Donta Duron, Pharmacist Pharmacy verified patient's allergies and home medication list with the patient and pharmacy records and are as follows: Home Medications (8) Active citalopram 40 mg, Oral, Daily furosemide 40 mg, PRN, Oral, Daily GlipiZIDE XL 10 mg oral tablet, extended release 20 mg = 2 Tab, Oral, Daily hydroCHLOROthiazide-lisinopril 12.5 mg-20 mg oral tablet 1 Tab, Oral, Daily levothyroxine 50 mcg, Oral, Daily pioglitazone 30 mg, Oral, Daily simvastatin 40 mg, Oral, QPM Vitamin D2 50,000 Int Units, Oral, Saturday Allergies (2) Active Reaction penicillin hives Trace Metals all jewelry causes a rash Thanks, Link Duron, PharmD #[id number] documented in this encounter Plan of Treatment Not on file documented as of this encounter Visit Diagnoses Not on filedocumented in this encounter
--- OUTSIDE RECORDS SUMMARY | 2024-09-08 15:12 | XMS_ITS | Encounter Summary ---
Author Organization [employer] Address [address] [place] [address] Care Team Providers Care Stencil Sprayer Name Role Phone Unavailable Primary Care Provider Unavailabl e Encounter Details Date Type Department Care Team (Late st Contact Info) Description 04/24/2019 Transcribed Document [facility] [place] [facility] [place] [address] ProviderLexi MD [address] [place] [address] Social History Tobacco Use Types Packs/Day [...] Conversion Note - Historical ProviderMD - 04/24/2019 12:07 PM MANAGER OPERATIONS RESEARCH PAT Adult Entered On: 04/24/2019 12:15 EST Performed On: 04/24/2019 12:07 EST by Nuvia Moseley Rn Vital Measurements Temperature Source : Temporal artery scanning Temperature Mode : Fahrenheit Temperature, Fahrenheit : 98.2 Deg F Clinical Temperature, C : 36.8 Deg C Peripheral Pulse Rate : 96 bpm Respiratory Rate : 20 Breaths/Min Systolic Blood Pressure : 199 mmHg (HI) Diastolic Blood Pressure : 91 mmHg (HI) Oxygen Saturation : 94 % Oxygen Therapy Mode : Room air Nuvia Moseley Rn - 04/24/2019 12:07 EST Height and Weight, Clinical Dosing Height Source : Stated Height Entry Format : [place] Height, Feet : 5 ft(Converted to: 152 cm, 60 Inch) Height, Inches : 2 Inch(Converted to: 0 ft 2 Inch, 5.08 cm) Clinical Height : 157.48 cm Weight Source : Standing scale Weight Entry Format : [place] Clinical [facility] Weight : 109.09 kg Weight, Pounds : 240 lb Body Surface Area (BSA) : 2.07 m2 Body Mass Index : 44 kg/m2 (>HHI) [place] Body Weight : 50 kg Nuvia Moseley Rn - 04/24/2019 12:07 EST Health Histories Smoking Status : Former smoker, quit more than 30 days ago Smokeless Tobacco Status : Never Nuvia Moseley Rn - 04/24/2019 12:07 EST Social History (As Of: 04/24/2019 12:15:05 EST) Tobacco: Former smoker, quit more than [...] 04/24/2019 12:06:28 EST by Nuvia Moseley, Rn) Infectious Disease History Physical contact outside [place] in the last 30 days : No Infectious Disease History : Influenza, Measles Isolation Needed : Standard Tuberculosis Symptoms : None Nuvia Moseley Rn - 04/24/2019 12:07 EST Anesthesia/Transfusion History Family History of Anesthesia Reaction : No prior transfusion(s) Transfusion History : Prior anesthesia without reaction Family History of Anesthesia Reaction : None Nuvia Moseley Rn - 04/24/2019 12:07 EST Advance Directive Patient has Advance Directive *Q : No, patient refuses Advance Directive information Nuvia Moseley Rn - 04/24/2019 12:07 EST [place] Suicide Severity Rating Scale (C-SSRS) CSSRS Past Month Wish to be : No CSSRS Past Month Suicidal Thoughts : No CSSRS Lifetime Suicide Behavior : No Suicide Severity Rating Score : 0 Suicide Severity Rating : No Additional Care Required at this time Nuvia Moseley Rn - 04/24/2019 12:07 EST Psychosocial History Do You Have a History of the Following? : Anxiety Currently in Unsafe Situation : No Nuvia Moseley Rn - 04/24/2019 12:07 EST Teaching/Learning Assessment Barriers To Learning : None evident Individuals Taught : Patient Readiness to Learn : Cooperative Readiness to Learn : Explanation, Printed materials Learning Style Preferences Patient : Printed materials, Verbal explanation Nuvia Moseley Rn - 04/24/2019 12:07 EST Education Topics, Periop Preadmission Perioperative Education Grid Arrival Time/Place : Verbalizes understanding CHG Preoperative Bathing/Cloths : Verbalizes understanding NPO Status/Directions : Verbalizes understanding Preprocedure Preparations : Verbalizes understanding Preprocedure Tests/Labs : Verbalizes understanding Responsible Adult : Verbalizes understanding Take/Hold Medications Pre-Procedure : Verbalizes understanding Nuvia Moseley Rn - 04/24/2019 12:07 EST General Info Arrived From : Home Mode of Arrival on Unit : Ambulatory Legal Guardian : Unaccompanied [place] Family/Rep/Phys Notified of Admit : No Emergency Contact #1 : Roxy Emergency Contact #1 Emergency Contact #1 Relationship : sister Emergency Contact #2 : . Emergency Contact #2 Phone Number : . Emergency Contact #2 Relationship : . Information Obtained From : Patient Primary Language : Gabonese Preferred Communication Mode : Verbal Communication Barrier : None Nuvia Moseley Rn - 04/24/2019 12:07 EST Jair Scale Jair Sensory Perception : No impairment Jair Moisture : Rarely moist Jair Activity : Walks occasionally Jair Mobility : Slightly limited Jair Nutrition : Adequate Jair Friction and Shear : No apparent problem Jair Score : 20 Nuvia Moseley Rn - 04/24/2019 12:07 EST Sleep Apnea Risk Assmt Hx of [...] Sleep Apnea Risk Level Score : 4 Nuvia Moseley Rn - 04/24/2019 12:07 EST documented in this encounter Plan of Treatment Not on file documented as of this encounter Visit Diagnoses Not on filedocumented in this encounter
[2024-09-08 16:27] LABS: Basophils # 0.1 K/mm3 (0-0.2); Basophils % 0.7 % (0.1-2.0); Eosinophils # 0.7 Kmm3 (0.0-0.4); Eosinophils % 8.5 % (0.1-12.0); Hematocrit 44.3 % (37.0-47.0); Hemoglobin 13.7 g/dL (12.2-16.2); Immature Granulocytes # 0.04 10^3uL; Immature Granulocytes % 0.5 %; Lymphocytes # 1.4 K/mm3 (0.7-4.5); Lymphocytes % 16.8 % (10-50); Mean Corpuscular HGB Conc 30.9 g/dL (31.8-35.4); Mean Corpuscular Hemoglobin 26.6 pg (27.0-31.2); Mean Platelet Volume 10.4 fl (7.4-10.4); Monocytes # 0.8 K/mm3 (0.1-1.0); Monocytes % 9.2 % (1.7-9.3); Neutrophils # 5.5 K/mm3 (1.8-7.8); Neutrophils % 64.3 % (37.0-80.0); Nucleated Red Blood Cells # 0 10^3/uL; Nucleated Red Blood Cells % 0 %; Platelet Count 184 K/mm3 (142-424); Red Blood Count 5.15 M/mm3 (4.20-5.40); Red Cell Distribution Width 13.1 % (11.5-17.5); Red Cell Distribution Width-SD 40.7 fL; White Blood Count 8.5 K/mm3 (4.8-10.8)
[2024-09-08 17:00] LABS: Alanine Aminotransferase 11 U/L (12-78); Albumin Level 3.8 g/dl (3.5-5.0); Alkaline Phosphatase 93 U/L (38-126); Anion Gap 4.1 mEq/L (5-15); Aspartate Amino Transferase 21 U/L (14-36); Bilirubin,Direct 0.1 mg/dl (0.0-0.4); Bilirubin,Indirect 0.4 mg/dL (0.0-0.9); Bilirubin,Total 0.5 mg/dl (0.2-1.3); Bilirubin,Unconjugated 0.4 mg/dL (0.0-1.1); Blood Urea Nitrogen 11 mg/dl (7-17); Calcium 9.6 mg/dl (8.4-10.2); Carbon Dioxide 34 mmol/L (22.0-30.0); Chloride 103 mmol/L (98-107); Chol/HDL Ratio 3.9 (1-3.5); Cholesterol 206 mg/dl (140-200); Estimated Glomerular Filt Rate 70 ml/min (>60); GFR (African American) 84 ML/MIN (>60); Glucose 87 mg/dl (74-100); HDL Cholesterol 53 mg/dl (40-60); Potassium 4.1 mmoL/L (3.5-5.1); Sodium 137 mmol/L (136-145); Triglycerides 219 mg/dl (30-150); VLDL Cholesterol 44 mg/dL (0-40)
[2024-09-08 17:13] LABS: Free T4 (Free Thyroxine) 1.22 ng/dl (0.78-2.19)
[2024-09-08 17:22] LABS: Hemoglobin A1C 7.6 % (4.0-6.0)
[2024-09-08 17:52] LABS: Direct LDL Cholesterol 113.36 mg/dL (100-129)
[2024-09-08 18:12] LABS: Thyroid Stimulating Hormone 1.54 uIU/mL (0.465-4.68)
[2024-09-09 13:21] LABS: Bilirubin,Direct 0.1 mg/dl (0.0-0.4)
[2024-09-09 13:36] LABS: Triiodothryronine (T3) Uptake 32 % (23.5-40.5)
[2024-09-09 13:37] LABS: Free Thyroxine Index 3.2 ug/dL (5.93-13.13); T4 (Thyroxine) 9.9 ug/dl (5.53-11.0)
[2024-09-09 13:51] LABS: Thyroid Stimulating Hormone 1.55 uIU/mL (0.465-4.68)
== END 2024-09-08 23:59 | disposition home or self-care (01) ==
LOC: LAB 15:07
PROVIDERS: PCP Internal Medicine Adolescent Medicine; Visit Provider Physician Assistant
DX: R42 Dizziness and giddiness (principal); R26.81 Unsteadiness on feet; I10 Essential (primary) hypertension; E11.9 Type 2 diabetes mellitus without complications; Z96.41 Presence of insulin pump (external) (internal)
CPT/HCPCS: 36415; 80048; 80061; 80076; 82248; 83036; 83735; 84436; 84439; 84443; 84479; 85025

== ENCOUNTER 2024-09-17 13:37 | Outpatient (CLI) | payer MEDICARE, SELFPAY ==
--- OUTSIDE RECORDS SUMMARY | 2024-08-22 17:30 | XMS_ITS ---
Author Organization [facility] Address [address] [place] [address] Care Team Providers Care Lab Assistant Name Role Phone Migration, Provider Unavailable Unavailable Allergies Allergen (clinical drug ingredient) Drug/Non Drug Allergy documented on EMR Reaction Allergy Type Onset Date Status Penicillin hives Drug Allergy Active Trace Metals rash Drug Allergy 06/11/2019 Act dudley [facility] Conversion Encounter [...] day Active Vitamin D (Ergocalciferol) 1.25 MG (53222 UT) Capsule 1 cap(s) orally once a week Active Encounters Encounter Location Date Provider Diagnosis [facility] [address] [place] [address] 08/22/2024 Provider Migration Plan Of Treatment No Information Progress Notes * MARIAN HellenomarDOB:1945 (78 yo F)Acc No.[id number]:08/22/2024 Patient: N cheyenneDominga Provider: :1945 A ge:78 Y S ex:Female Date:08/22/2024 Address:[address] [place], [place] [id number] Subjective: * Chief Complaints: * M ultum [...] (at bedtime) Vitamin D (Ergocalciferol) 1.25 MG (77375 UT) Capsule 1 cap(s) orally once a [...] bedtime) Taking Vitamin D (Ergocalciferol) 1.25 MG (44150 UT) Capsule 1 cap(s) orally once a week Taking glipiZIDE 10 MG Tablet 2 tab(s) orally once a day * Allergies: P enicillin: hivesTrace Metals: rash - Onset Date 06/11/2019 * Electronic signature of Prov ider Migration on 09/17/2024 at 01:44 PM EDT Sign off status: Pending * Provider: Date: 08/22/2024 Generated for Freddy boswell/Earnest/Richyitting on: 09/17/2024 01:44 PM EDT
--- OUTSIDE RECORDS SUMMARY | 2024-09-17 13:43 | XMS_ITS | Encounter Summary ---
Author Organization [employer] ([place], [place], [place], [place]) Address [address] [place] [address] Care Team Providers Care Dishwashing Machine Repairer Name Role Phone Unavailable Primary Care Provider Unavailabl e Encounter Details Date Type Department Care Team (Late st Contact Info) Description 05/12/2019 Transcribed Document [facility] [place] [address] [place] [address] ProviderLexi MD [address] [place] [address] Social History Tobacco Use Types [...] Conversion Note - Historical ProviderMD - 05/12/2019 1:18 PM METAL BONDING HELPER Admission History, Adult Entered On: 05/12/2019 13:21 [...] Discharge To, Anticipated : Rehabilitation unit/facility Rach eRd RN - 05/12/2019 13:18 EST Education Topics, [...] Obtained From : Patient Primary Language : Fijian Preferred Communication Mode : Verbal Communication Barrier [...] Level : 46 or > High Risk [place] Fall Interventions : Assistive devices within reach, [...] Source : Stated Height Entry Format : [place] Height, Feet : 5 ft(Converted to: 152 cm, 60 Inch) Height, Inches : 2 Inch(Converted to: 0 ft 2 Inch, 5.08 cm) Clinical Height : 157.48 cm Weight Source : Standing scale Weight Entry Format : [place] Clinical Dosing Weight : 107.27 kg Weight, Pounds : 236 lb Body Surface Area (BSA) : 2.05 m2 Body Mass Index : 43.3 kg/m2 (>HHI) [place] Body Weight : 50 kg Rach Red [...] Rach Red RN - 05/12/2019 13:18 EST [place] Suicide Severity Rating Scale (C-SSRS) CSSRS Past [...] Any Spiritual/Cultural Needs or Requests : Yes Temple Preference : Worship Rach Red RN - 05/12/2019 13:18 EST [...] Rach Red RN - 05/12/2019 13:18 EST documented in this encounter Plan of Treatment Not on file documented as of this encounter Visit Diagnoses Not on filedocumented in this encounter
--- OUTSIDE RECORDS SUMMARY | 2024-09-17 13:43 | XMS_ITS | Encounter Summary ---
Author Organization [employer] ([place], [place], [place], [place]) Address [address] [place] [address] Care Team Providers Care Assistant Golf Professional Name Role Phone Unavailable Primary Care Provider Unavailabl e Encounter Details Date Type Department Care Team (Late st Contact Info) Description 05/15/2019 Transcribed Document [facility] [place] [address] [place] [address] ProviderLexi MD [address] [place] [address] Social History Tobacco Use Types [...] - Historical ProviderMD - 05/15/2019 11:06 AM ASSOCIATE PROFESSOR OF PHYSICS Stroke/Warfarin Instructions Entered On: 05/15/2019 11:06 EST [...]
--- OUTSIDE RECORDS SUMMARY | 2024-09-17 13:43 | XMS_ITS | Encounter Summary ---
Author Organization [employer] ([place], [place], [place], [place]) Address [address] [place] [address] Care Team Providers Care Fatback Trimmer Name Role Phone Unavailable Primary Care Provider Unavailabl e Encounter Details Date Type Department Care Team (Late st Contact Info) Description 05/15/2019 Transcribed Document [facility] [place] [address] [place] [address] ProviderLexi MD [address] [place] [address] Social History Tobacco Use Types [...] - Historical ProviderMD - 05/15/2019 3:50 PM CLINICAL ACCOUNT LIAISON Valuables and Belongings Entered On: 05/15/2019 15:55 [...]
--- OUTSIDE RECORDS SUMMARY | 2024-09-17 13:43 | XMS_ITS | Encounter Summary ---
Author Organization [employer] ([place], [place], [place], [place]) Address [address] [place] [address] Care Team Providers Care Cone Former Name Role Phone Unavailable Primary Care Provider Unavailabl e Encounter Details Date Type Department Care Team (Late st Contact Info) Description 05/14/2019 Transcribed Document [facility] [place] [address] [place] [address] ProviderLexi MD [address] [place] [address] Social History Tobacco Use Types [...] - Historical ProviderMD - 05/14/2019 8:00 PM ENTEROSTOMAL NURSE Pain Assessment Entered On: 05/14/2019 22:55 EST Performed On: 05/14/2019 22:48 EST by BORIS OVALLE, Modeling And Simulation Analyst-Nursing Intervention Information: traMADol Performed by BORIS OVALLE, Modeling And Simulation Analyst-Nursing on 05/14/2019 21:48:00 EST traMADol,50mg Oral Pain Assessment Pain Assessment : Follow-up assessment Pain Scale Goal : 4 Pain Scale Used : FACES Pain Intervention, Drug : Medicated Pain Improved by Intervention : Yes BORIS OVALLE, Modeling And Simulation Analyst-Nursing - 05/14/2019 22:54 EST Pain Scale Intensity : 3 BORIS OVALLE Modeling And Simulation Analyst-Nursing - 05/14/2019 22:54 EST Image 4 - Images currently included in the form version of this document have not been included in the text rendition version of the form. documented in this encounter Plan of Treatment Not on file documented as of this encounter Visit Diagnoses Not on filedocumented in this encounter
--- OUTSIDE RECORDS SUMMARY | 2024-09-17 13:43 | XMS_ITS | Encounter Summary ---
Author Organization [employer] ([place], [place], [place], [place]) Address [address] [place] [address] Care Team Providers Care Material Control Clerk Name Role Phone Unavailable Primary Care Provider Unavailabl e Encounter Details Date Type Department Care Team (Late st Contact Info) Description 05/13/2019 Transcribed Document [facility] [place] Family Medicine [address] [place] [address] ProviderLexi MD [address] [place] [address] Social History Tobacco Use Types [...] - Historical ProviderMD - 05/13/2019 8:00 PM REFERENCE SERVICES HEAD Pain Assessment Entered On: 05/14/2019 1:34 EST Performed On: 05/13/2019 23:08 EST by BORIS OVALLE, Staff Training And Development Manager-Nursing Intervention Information: traMADol Performed by BORIS OVALLE, Staff Training And Development Manager-Nursing on 05/13/2019 22:08:00 EST traMADol,50mg Oral Pain Assessment Pain Assessment : Follow-up assessment Pain Scale Goal : 4 Pain Scale Used : FACES Pain Intervention, Drug : Medicated Pain Improved by Intervention : Yes BORIS OVALLE, Staff Training And Development Manager-Nursing - 05/14/2019 1:34 EST Pain Scale Intensity : 2 BORIS OVALLE Staff Training And Development Manager-Nursing - 05/14/2019 1:34 EST Image 4 - Images currently included in the form version of this document have not been included in the text rendition version of the form. documented in this encounter Plan of Treatment Not on file documented as of this encounter Visit Diagnoses Not on filedocumented in this encounter
--- OUTSIDE RECORDS SUMMARY | 2024-09-17 13:43 | XMS_ITS | Encounter Summary ---
Author Organization [employer] ([place], [place], [place], [place]) Address [address] [place] [address] Care Team Providers Care Intake Clinician Name Role Phone Unavailable Primary Care Provider Unavailabl e Encounter Details Date Type Department Care Team (Late st Contact Info) Description 05/15/2019 Transcribed Document [facility] [place] [address] [place] [address] ProviderLexi MD [address] [place] [address] Social History Tobacco Use Types [...] - Historical ProviderMD - 05/15/2019 8:00 AM SANITARY INSPECTOR Pain Assessment Entered On: 05/15/2019 9:59 EST Performed On: 05/15/2019 7:30 EST by Rosie Warner RN Intervention Information: traMADol Performed by BORIS OVALLE, Reporter-Nursing on 05/15/2019 06:30:00 EST traMADol,50mg Oral Pain [...]
--- OUTSIDE RECORDS SUMMARY | 2024-09-17 13:43 | XMS_ITS | Encounter Summary ---
Author Organization [employer] ([place], [place], [place], [place]) Address [address] [place] [address] Care Team Providers Care Education Program Coordinator Name Role Phone Unavailable Primary Care Provider Unavailabl e Encounter Details Date Type Department Care Team (Late st Contact Info) Description 05/15/2019 Transcribed Document [facility] [place] [address] [place] [address] ProviderLexi MD [address] [place] [address] Social History Tobacco Use Types [...] - Historical ProviderMD - 05/15/2019 5:00 AM SIDEWALK INSPECTOR Chart Check - Review Order Profile Entered On: 05/15/2019 5:23 EST Performed On: 05/15/2019 5:00 EST by BORIS OVALLE, Production Sound Mixer-Nursing Chart Check Powerplans Initiated/Discontinued as Appropriate : Yes All Active Orders Reviewed : Yes BORIS OVALLE, Production Sound Mixer-Nursing - 05/15/2019 5:23 EST documented in this encounter Plan of Treatment Not on file documented as of this encounter Visit Diagnoses Not on filedocumented in this encounter
--- OUTSIDE RECORDS SUMMARY | 2024-09-17 13:43 | XMS_ITS | Encounter Summary ---
Author Organization [employer] ([place], [place], [place], [place]) Address [address] [place] [address] Care Team Providers Care Outlet Manager Name Role Phone Unavailable Primary Care Provider Unavailabl e Encounter Details Date Type Department Care Team (Late st Contact Info) Description 05/14/2019 Transcribed Document [facility] [place] [address] [place] [address] ProviderLexi MD [address] [place] [address] Social History Tobacco Use Types [...] - Historical ProviderMD - 05/14/2019 1:00 PM LADLE LINER Pain Assessment Entered On: 05/14/2019 14:16 EST [...] form. Electronically signed by Meghan Carney Conversion Motorcycle Service Technician Cerner at 07/02/2022 5:17 PM CDT documented in this encounter Plan of Treatment Not on file documented as of this encounter Visit Diagnoses Not on filedocumented in this encounter
--- OUTSIDE RECORDS SUMMARY | 2024-09-17 13:43 | XMS_ITS | Encounter Summary ---
Author Organization [employer] ([place], [place], [place], [place]) Address [address] [place] [address] Care Team Providers Care Tar Worker Name Role Phone Unavailable Primary Care Provider Unavailabl e Encounter Details Date Type Department Care Team (Late st Contact Info) Description 05/14/2019 Transcribed Document [facility] [place] [address] [place] [address] ProviderLexi MD [address] [place] [address] Social History Tobacco Use Types [...] - Historical ProviderMD - 05/14/2019 7:00 PM HEELER MACHINE Pain Assessment Entered On: 05/14/2019 22:54 EST Performed On: 05/14/2019 22:47 EST by BORIS OVALLE, Typesetters Printer-Nursing Intervention Information: acetaminophen Performed by BORIS OVALLE, Typesetters Printer-Nursing on 05/14/2019 21:47:00 EST acetaminophen,1000mg Oral Pain Assessment Pain Assessment : Follow-up assessment Pain Scale Goal : 4 Pain Scale Used : FACES Pain Intervention, Drug : Medicated Pain Improved by Intervention : Yes BORIS OVALLE, Typesetters Printer-Nursing - 05/14/2019 22:54 EST Pain Scale Intensity : 3 BORIS OVALLE, Typesetters Printer-Nursing - 05/14/2019 22:54 EST Image 4 - Images currently included in the form version of this document have not been included in the text rendition version of the form. documented in this encounter Plan of Treatment Not on file documented as of this encounter Visit Diagnoses Not on filedocumented in this encounter
--- OUTSIDE RECORDS SUMMARY | 2024-09-17 13:43 | XMS_ITS | Encounter Summary ---
Author Organization [employer] ([place], [place], [place], [place]) Address [address] [place] [address] Care Team Providers Care Beam House Inspector Name Role Phone Unavailable Primary Care Provider Unavailabl e Encounter Details Date Type Department Care Team (Late st Contact Info) Description 05/12/2019 Transcribed Document [facility] [place] [address] [place] [address] ProviderLexi MD [address] [place] [address] Social History Tobacco Use Types [...] Conversion Note - Historical ProviderMD - 05/12/2019 8:30 AM LARGE ENGINE ASSEMBLER Event Note Entered On: 05/12/2019 9:11 EST [...] u/a is not necessary at this time. Cecile Wright RN - 05/12/2019 13:46 EST Electronically signed by Angelika [facility] Conversion Skein Winder Raghav at 07/02/2022 5:17 PM CDT documented in this encounter Plan of Treatment Not on file documented as of this encounter Visit Diagnoses Not on filedocumented in this encounter
--- OUTSIDE RECORDS SUMMARY | 2024-09-17 13:43 | XMS_ITS | Encounter Summary ---
Author Organization [employer] ([place], [place], [place], [place]) Address [address] [place] [address] Care Team Providers Care Inspector Weights And Measures Name Role Phone Unavailable Primary Care Provider Unavailabl e Encounter Details Date Type Department Care Team (Late st Contact Info) Description 05/13/2019 Transcribed Document [facility] [place] [address] [place] [address] ProviderLexi MD [address] [place] [address] Social History Tobacco Use Types [...] - Historical ProviderMD - 05/13/2019 7:00 PM AUTOMATIC GLOVE FORMER Pain Assessment Entered On: 05/14/2019 1:34 EST Performed On: 05/13/2019 23:08 EST by BORIS OVALLE, Coremaker Machine-Nursing Intervention Information: acetaminophen Performed by BORIS OVALLE, Coremaker Machine-Nursing on 05/13/2019 22:08:00 EST acetaminophen,1000mg Oral Pain Assessment Pain Assessment : Follow-up assessment Pain Scale Goal : 4 Pain Scale Used : FACES Pain Intervention, Drug : Medicated Pain Improved by Intervention : Yes BORIS OVALLE, Coremaker Machine-Nursing - 05/14/2019 1:33 EST Pain Scale Intensity : 3 BORIS OVALLE, Coremaker Machine-Nursing - 05/14/2019 1:33 EST Image 4 - Images currently included in the form version of this document have not been included in the text rendition version of the form. Electronically signed by Meghan Carney Conversion Senior Water Resources Engineer Cerner at 07/02/2022 5:01 PM CDT documented in this encounter Plan of Treatment Not on file documented as of this encounter Visit Diagnoses Not on filedocumented in this encounter
--- OUTSIDE RECORDS SUMMARY | 2024-09-17 13:43 | XMS_ITS | Encounter Summary ---
Author Organization [employer] ([place], [place], [place], [place]) Address [address] [place] [address] Care Team Providers Care Asbestos Cloth Inspector Name Role Phone Unavailable Primary Care Provider Unavailabl e Encounter Details Date Type Department Care Team (Late st Contact Info) Description 05/14/2019 Transcribed Document [facility] [place] [address] [place] [address] ProviderLexi MD [address] [place] [address] Social History Tobacco Use Types [...] - Historical ProviderMD - 05/14/2019 8:00 AM GEOPHYSICAL PROSPECTOR Pain Assessment Entered On: 05/14/2019 11:33 EST Performed On: 05/14/2019 6:46 EST by Rach Red RN Intervention Information: traMADol Performed by BORIS OVALLE, Exceptional Children Teacher-Nursing on 05/14/2019 05:46:00 EST traMADol,50mg Oral Pain [...]
--- OUTSIDE RECORDS SUMMARY | 2024-09-17 13:43 | XMS_ITS | Encounter Summary ---
Author Organization [employer] ([place], [place], [place], [place]) Address [address] [place] [address] Care Team Providers Care Quality Control Clerk Name Role Phone Unavailable Primary Care Provider Unavailabl e Encounter Details Date Type Department Care Team (Late st Contact Info) Description 05/13/2019 Transcribed Document [facility] Family Medicine [address] [place] [address] ProviderLexi MD [address] [place] [address] Social History Tobacco Use Types [...] - Historical ProviderMD - 05/13/2019 2:00 AM GREEN BUILDING MATERIALS DESIGNER Wrapper And Preserver Details Entered On: 05/13/2019 4:26 EST Performed On: 05/13/2019 2:00 EST by BORIS OVALLE, Vine Pruner-Nursing Order Details Transport Mode Order Detail : Wheelchair Isolation Precautions Order Detail : Standard Precautions Order Detail : N/A IV Order Detail : 1 Oxygen Order Detail : 0 Nurse Collect Order Detail : 0 Lift/Transfer : Minimal Central Line Order Detail : No Room Service : Appropriate Arterial Line : No BORIS OVALLE, Vine Pruner-Nursing - 05/13/2019 4:25 EST Electronically signed by Meghan Carney Conversion Numerical Control Router Operator Cerner at 07/02/2022 5:10 PM CDT documented in this encounter Plan of Treatment Not on file documented as of this encounter Visit Diagnoses Not on filedocumented in this encounter
--- OUTSIDE RECORDS SUMMARY | 2024-09-17 13:43 | XMS_ITS | Encounter Summary ---
Author Organization [employer] ([place], [place], [place], [place]) Address [address] [place] [address] Care Team Providers Care Electric Arc Welder Name Role Phone Unavailable Primary Care Provider Unavailabl e Encounter Details Date Type Department Care Team (Late st Contact Info) Description 05/15/2019 Transcribed Document [facility] [place] [address] [place] [address] ProviderLexi MD [address] [place] [address] Social History Tobacco Use Types [...] - Historical ProviderMD - 05/15/2019 3:50 PM PIPE INSULATOR HELPER College Scouting Coordinator Details Entered On: 05/15/2019 15:55 EST Performed [...]
--- OUTSIDE RECORDS SUMMARY | 2024-09-17 13:43 | XMS_ITS | Encounter Summary ---
Author Organization [employer] ([place], [place], [place], [place]) Address [address] [place] [address] Care Team Providers Care Zone Supervisor Firearms Name Role Phone Unavailable Primary Care Provider Unavailabl e Encounter Details Date Type Department Care Team (Late st Contact Info) Description 05/15/2019 Transcribed Document [facility] [place] [address] [place] [address] ProviderLexi MD [address] [place] [address] Social History Tobacco Use Types [...] - Historical ProviderMD - 05/15/2019 8:00 PM CERTIFICATION OFFICER Pain Assessment Entered On: 05/15/2019 23:08 EST [...]
--- OUTSIDE RECORDS SUMMARY | 2024-09-17 13:43 | XMS_ITS | Encounter Summary ---
Author Organization [facility] [employer] ([place], [place], [place], [place]) Address [address] [place] [address] Care Team Providers Care Social Services Assistant Name Role Phone Unavailable Primary Care Provider Unavailabl e Encounter Details Date Type Department Care Team (Late st Contact Info) Description 05/12/2019 Transcribed Document [facility] [place] Family Medicine [address] [place] [address] ProviderLexi MD [address] [place] [address] Social History Tobacco Use Types [...] - Historical ProviderMD - 05/12/2019 1:00 PM RADIOLOGY THERAPIST Pain Assessment Entered On: 05/12/2019 16:50 EST [...]
--- OUTSIDE RECORDS SUMMARY | 2024-09-17 13:43 | XMS_ITS | Encounter Summary ---
Author Organization [employer] ([place], [place], [place], [place]) Address [address] [place] [address] Care Team Providers Care Gas Truck Driver Name Role Phone Unavailable Primary Care Provider Unavailabl e Encounter Details Date Type Department Care Team (Late st Contact Info) Description 05/15/2019 Transcribed Document [facility] Radiology [address] [place] [address] Alba River MD [address] [place] [id number] Social History Tobacco Use Types Packs/Day Years [...] the patient will be going to the [facility] on 05/16/2019 for the same. The patient [...] 45 days. DISCHARGE FOLLOWUP: 1. With [facility] on 06/23/2019 at 10 a.m. 2. Follow up with the PCP post discharge from the rehab facility. 3. Patient will need to have fingerstick blood sugar monitoring on a before meals and at bedtime regimen. Transferring entity towards the discharge dispositioning including review of the above discussion with the patient care and coordination with case management totaled cumulatively to 35 minutes. /[id number] Alba River MD VLS/AQ / VLS / MODL /[id number] documented in this encounter Plan of Treatment Not on file documented as of this encounter Visit Diagnoses Not on filedocumented in this encounter
--- OUTSIDE RECORDS SUMMARY | 2024-09-17 13:43 | XMS_ITS | Encounter Summary ---
Author Organization [employer] ([place], [place], [place]) Address [address] [place] [address] Care Team Providers Care Supervisor Carding Name Role Phone Unavailable Primary Care Provider Unavailabl e Encounter Details Date Type Department Care Team (Late st Contact Info) Description 05/12/2019 Transcribed Document [facility] [place] Family Medicine [address] [place] [address] ProviderLexi MD [address] [place] [address] Social History Tobacco Use Types [...] - Historical ProviderMD - 05/12/2019 5:[address] Initial Discharge Planning Entered On: 05/12/2019 17:08 EST Performed On: 05/12/2019 17:06 EST by SANDRA DEL ANGEL Care Management-Newspaper Photographer Initial Assessment I Previously Documented Living Environment : No qualifying data available. Living Situation : Home Patient Lives With : Alone Emergency Contact #1 : Roxy Emergency Contact #1 Emergency Contact #1 Relationship : sister Emergency Contact #2 : . Emergency Contact #2 Phone Number : . Emergency Contact #2 Relationship : . SANDRA DEL ANGEL, Care Management-Newspaper Photographer - 05/12/2019 17:06 EST Narrative Note Narrative Note : Pt stated to Navigator, [facility] staff, and myself that she must go to rehab at [facility]. she lives alone, has stairs and no [...] review and advise. SANDRA DEL ANGEL, Care Management-Newspaper Photographer - 05/12/2019 17:06 EST Electronically signed by Angelika [facility] Conversion Hospital Food Service Worker Cerner at 07/02/2022 5:10 PM CDT documented in this encounter Plan of Treatment Not on file documented as of this encounter Visit Diagnoses Not on filedocumented in this encounter
--- OUTSIDE RECORDS SUMMARY | 2024-09-17 13:43 | XMS_ITS | Encounter Summary ---
Author Organization [employer] ([place], [place], [place], [place]) Address [address] [place] [address] Care Team Providers Care Application Trainer Name Role Phone Unavailable Primary Care Provider Unavailabl e Encounter Details Date Type Department Care Team (Late st Contact Info) Description 05/14/2019 Transcribed Document [facility] [place] Family Medicine [address] [place] [address] ProviderLexi MD [address] [place] [address] Social History Tobacco Use Types [...] - Historical ProviderMD - 05/14/2019 2:00 PM SAFETY PERSON Pain Assessment Entered On: 05/14/2019 14:15 EST [...]
--- OUTSIDE RECORDS SUMMARY | 2024-09-17 13:43 | XMS_ITS | Encounter Summary ---
Author Organization [employer] ([place], [place], [place], [place]) Address [address] [place] [address] Care Team Providers Care Orthotics Prosthetics Assistant Name Role Phone Unavailable Primary Care Provider Unavailabl e Encounter Details Date Type Department Care Team (Late st Contact Info) Description 05/13/2019 Transcribed Document [facility] [place] [address] [place] [address] ProviderLexi MD [address] [place] [address] Social History Tobacco Use Types [...] - Historical ProviderMD - 05/13/2019 5:00 AM RESTAURANT ASSISTANT MANAGER Chart Check - Review Order Profile Entered On: 05/13/2019 4:27 EST Performed On: 05/13/2019 5:00 EST by BORIS OVALLE, Recovery Engineer-Nursing Chart Check Powerplans Initiated/Discontinued as Appropriate : Yes All Active Orders Reviewed : Yes BORIS OVALLE, Recovery Engineer-Nursing - 05/13/2019 4:27 EST Electronically signed by Angelika [facility] Conversion Haul Truck Driver Cerner at 07/02/2022 4:58 PM CDT documented in this encounter Plan of Treatment Not on file documented as of this encounter Visit Diagnoses Not on filedocumented in this encounter
--- OUTSIDE RECORDS SUMMARY | 2024-09-17 13:43 | XMS_ITS | Encounter Summary ---
Author Organization [employer] ([place], [place], [place]) Address [address] [place] [address] Care Team Providers Care Final Cleaner Name Role Phone Unavailable Primary Care Provider Unavailabl e Encounter Details Date Type Department Care Team (Late st Contact Info) Description 05/13/2019 Transcribed Document [facility] [place] Family Medicine [address] [place] [address] ProviderLexi MD [address] [place] [address] Social History Tobacco Use Types [...] - Historical ProviderMD - 05/13/2019 8:42 AM ELECTRONIC SYSTEMS TECHNICIAN Nutrition Assessment Entered On: 05/14/2019 13:18 EST [...] 05/14/2019 15:20 EST Electronically signed by Angelika [facility] Conversion Margin Trimmer Cerner at 07/02/2022 4:55 PM CDT documented in this encounter Plan of Treatment Not on file documented as of this encounter Visit Diagnoses Not on filedocumented in this encounter
--- OUTSIDE RECORDS SUMMARY | 2024-09-17 13:43 | XMS_ITS | Encounter Summary ---
Author Organization [employer] ([place], [place], [place], [place]) Address [address] [place] [address] Care Team Providers Care Children'S Nursery Assistant Name Role Phone Unavailable Primary Care Provider Unavailabl e Encounter Details Date Type Department Care Team (Late st Contact Info) Description 05/13/2019 Transcribed Document [facility] [place] Family Medicine [address] [place] [address] ProviderLexi MD [address] [place] [address] Social History Tobacco Use Types [...] - Historical ProviderMD - 05/13/2019 7:00 AM CALL CENTER ASSISTANT Pain Assessment Entered On: 05/13/2019 7:52 EST Performed On: 05/13/2019 7:15 EST by Rach Red RN Intervention Information: acetaminophen Performed by BORIS OVALLE, Repeat Chief-Nursing on 05/13/2019 06:15:00 EST acetaminophen,1000mg Oral Pain [...]
--- OUTSIDE RECORDS SUMMARY | 2024-09-17 13:43 | XMS_ITS | Encounter Summary ---
Author Organization [employer] ([place], [place], [place], [place]) Address [address] [place] [address] Care Team Providers Care Cement And Concrete Plant Worker Name Role Phone Unavailable Primary Care Provider Unavailabl e Encounter Details Date Type Department Care Team (Late st Contact Info) Description 05/13/2019 Transcribed Document [facility] [place] Family Medicine [address] [place] [address] ProviderLxei MD [address] [place] [address] Social History Tobacco Use Types [...] - Historical ProviderMD - 05/13/2019 2:15 PM MECHANIC ASSISTANT Spiritual Care Assessment Entered On: 05/13/2019 21:55 EST Performed On: 05/13/2019 14:15 EST by Jose Miguel Downey Chaplain-Non Cert General Information Referred by : Manager Of Development follow-up Ministry Provided to : Patient Pentec[employer]ism Preference : [employer] Jose Miguel Downey Chaplain-Non Cert - 05/13/2019 21:54 EST Spiritual Assessment Spiritual Assessment Comment/Summary Points : Brief visit with patient as she was not feeling well at this time, no family present. Spirital Assessment Comment/Summary Report : SPIRITUAL ASSESSMENT COMMENT/SUMMARY No qualifying data available. Jose Miguel Downey Chaplain-Non Cert - 05/13/2019 21:54 EST Electronically signed by Angelika [facility] Conversion Disintegrator Operator Cerner at 07/02/2022 4:53 PM CDT documented in this encounter Plan of Treatment Not on file documented as of this encounter Visit Diagnoses Not on filedocumented in this encounter
--- OUTSIDE RECORDS SUMMARY | 2024-09-17 13:43 | XMS_ITS | Encounter Summary ---
Author Organization [employer] ([place], [place], [place], [place]) Address [address] [place] [address] Care Team Providers Care Sales Agent Casualty Insurance Name Role Phone Unavailable Primary Care Provider Unavailabl e Encounter Details Date Type Department Care Team (Late st Contact Info) Description 05/12/2019 Transcribed Document [facility] [place] [address] [place] [address] ProviderLexi MD [address] [place] [address] Social History Tobacco Use Types [...] - Historical ProviderMD - 05/12/2019 12:53 PM BALLING MACHINE OPERATOR Evaluation, Physical Therapy Entered On: 05/12/2019 15:07 [...] PT Treatment Instructions Ordered By: ROSIO SEN MD-ORPatria 05/12/2019 12:54 PT Treatment Instructions Ordered By: ROSIO SEN MD-ORPatria 05/12/2019 14:34 Consult to Physical Therapy Ordered [...] expect at next PT session in AM. WILIAN KENNEDY, PT - 05/12/2019 15:07 EST PT Duration Rehab : Three days PT Treatments Planned : Balance training, Bed mobility training, Caregiver training, Gait training, Safety education, Stair training, Therapeutic exercises, Transfer training WILIAN KENNEDY, PT - 05/12/2019 14:46 EST Community Arts Officer Goals Other PT LTG Grid Goal #1 [...] services for ATHA protocol + to maxamize safety/Otero with functional mobility prior to discharge. Plan for Treatment : Would recommend SNF/rehab since patient lives alone and has a h/o multiple falls at home. WILIAN KENNEDY, PT - 05/12/2019 14:46 EST Pain Assessment Pain Scaled Used : 0-10 Pain scale Pain Score Pre-Intervention : 7 Pain Score During-Intervention : 7 Pain Score Post-Intervention. : 7 Pain Comment : 10 pain in R hip RN notified - patient requesting pain meds WILIAN KENNEDY, PT - 05/12/2019 14:46 EST Image 1 - Images currently included in the form version of this document have not been included in the text rendition version of the form. Anticipated Discharge Needs, OT/PT Anticipated Discharge to : Unit, fdc Anticipated Home Equipment : Walker Anticipated D/C Provider Notified : services advisor/case management Recommend Continued Therapy at Discharge : [...]
--- OUTSIDE RECORDS SUMMARY | 2024-09-17 13:43 | XMS_ITS | Data Portability ---
Author Organization [facility] - [place] & SULEIMAN Stark ADMIN Address [address] [place] [id number] Care Team Providers Care Fast Brim Pouncer Name Role Phone LILIAN MARINA Primary Care Provider [phone] Assessment No assessment recorded. Plan of Treatment Reminders Order Date Submit Date Provider Last Modified By Organization Details Last Modified Time Details Appointments OV EST 30 2024 09:00A M Wilian Olsen PA-C Not available Not available Not available Lab CBC w/ auto diff 2024 025 OBI Not available 09/02/2024 10:42:36 CMP, serum or plasma 2024 025 OBI Not available 09/02/2024 10:28:32 ldh, serum or plasma 2024 025 OBI Not available 09/02/2024 10:46:50 CBC w/ auto diff 2024 025 OBI Not available 06/02/2024 10:02:27 CMP, serum or plasma 2024 025 OBI Not available 06/02/2024 10:10:56 Referral dermatolo gist referral 2023 024 [email or web address], [address] [place] [address], [id number], 01/30/2024 09:16:39 Procedures None recorded. Surgeries None recorded. Imaging CT, chest + abdomen + pelvis, w/ contrast - iv contrast only 2024 025 [email or web address] (Centralized Scheduling), [address] , [place], [address], 09/02/2024 09:59:11 CT, chest + abdomen + pelvis, w/ contrast 2024 025 [id number] (Centralized Scheduling), [address], [place], [address], 06/26/2024 09:24:41 Medication Orders None recorded. Patient TargetsNo targets recorded. Patient InstructionsNo instructions recorded. 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 4 Not Available ([facility]) [address] , [place], [address], 09/11/2023 09:44:37 09/11/19 24 09/11/2023 CBC AUTO W DIFF HGB 14.5 gm/dL 12.5-1 6.0 Not Available ([facility]) [address] , [place], [address], 09/11/2023 09:44:37 09/11/19 24 09/11/2023 CBC AUTO W DIFF HCT 44.1 % 37.0-4 7.0 Not Available ([facility]) [address] , [place], [address], 09/11/2023 09:44:37 09/11/19 24 09/11/2023 CBC AUTO W DIFF MCV 89.5 fL 78-100 Not Available ([facility]) [address] , [place], [address], 09/11/2023 09:44:37 09/11/19 24 09/11/2023 CBC AUTO W DIFF MCH 29.4 pg 27-31 Not Available ([facility]) [address] , [place], [address], 09/11/2023 09:44:37 09/11/19 24 09/11/2023 CBC AUTO W DIFF MCHC 32.9 g/dL 32-36 Not Available ([facility]) [address] , [place], [address], 09/11/2023 09:44:37 09/11/19 24 09/11/2023 CBC AUTO W DIFF RDW 13.5 % 11.5-1 4.0 Not Available ([facility]) [address] , [place], [address], 09/11/2023 09:44:37 09/11/19 24 09/11/2023 CBC AUTO W DIFF platelet count 253 K/uL 150-45 0 Not Available ([facility]) [address] , [place], [address], 09/11/2023 09:44:37 09/11/19 24 09/11/2023 CBC AUTO W DIFF MPV 10.0 fL 6-9.5 high Not Available ([facility]) [address] , [place], [address], 09/11/2023 09:44:37 09/11/19 24 09/11/2023 CBC AUTO W DIFF neutrophil% 72.4 % 43-65 high Not Available [facility] ([facility]) [address] , [place], [address], 09/11/2023 09:44:37 09/11/19 24 09/11/2023 CBC AUTO W DIFF lymphocyte% 12.4 % 20.5-4 5.5 low Not Available ([facility]) [address] [place], [address], 09/11/2023 09:44:37 09/11/19 24 09/11/2023 CBC AUTO W DIFF monocyte% 8.9 % 5.5-11 .7 Not Available ([facility]) [address] [place], [address], 09/11/2023 09:44:37 09/11/19 24 09/11/2023 CBC AUTO W DIFF eosinophil% 4.8 % 0.9-2. 9 high Not Available ([facility]) [address] [place], [address], 09/11/2023 09:44:37 09/11/19 24 09/11/2023 CBC AUTO W DIFF basophil% 0.8 % 0.2-1. 0 Not Available ([facility]) [address] [place], [address], 09/11/2023 09:44:37 09/11/19 24 09/11/2023 CBC AUTO W DIFF immature granulocytes % 0.7 % 0.0-0. 8 Not Available ([facility]) [address] [place], [address], 09/11/2023 09:44:37 09/11/19 24 09/11/2023 CBC AUTO W DIFF nucleated red blood cells % 0.0 % Not Available [facility] ([facility]) [address] [place], [address], 09/11/2023 09:44:37 09/11/19 24 09/11/2023 CBC AUTO W DIFF neutrophil# 6.0 K/uL 2.2-4. 8 high Not Available ([facility]) [address] [place], [address], 09/11/2023 09:44:37 09/11/19 24 09/11/2023 CBC AUTO W DIFF lymphocyte# 1.0 cell/ mcL 1.3-2. 9 low Not Available ([facility]) [address], [place], [address], 09/11/2023 09:44:37 09/11/19 24 09/11/2023 CBC AUTO W DIFF monocyte# 0.7 cell/ mcL 0.3-0. 8 Not Available ([facility]) [address] [place], [address], 09/11/2023 09:44:37 09/11/19 24 09/11/2023 CBC AUTO W DIFF eosinophil# 0.4 cell/ mcL 0-0.2 high Not Available ([facility]) [address] [place], [address], 09/11/2023 09:44:37 09/11/19 24 09/11/2023 CBC AUTO W DIFF basophil# 0.1 cell/ mcL 0.0-1. 0 Not Available ([facility]) [address] [facility], [place], [address], 09/11/2023 09:44:37 09/11/19 24 09/11/2023 CBC AUTO W DIFF immature gramulocytes # 0.06 K/uL Not Available [facility] ([facility]) [address] [place], [address], 09/11/2023 09:44:37 09/11/19 24 09/11/2023 CBC AUTO W DIFF nucleated red blood cells # 0.00 K/uL Not Available [facility] ([facility]) [address] [place], [address], 09/11/2023 09:44:37 09/11/19 24 09/11/2023 CBC AUTO W DIFF manual differential NO Not Available ([facility]) [address] [place], [address], 09/11/2023 09:44:37 09/11/19 24 09/11/2023 COMP METAB OLIC PANEL sodium 139 mmol/ L 136-14 5 Not Available ([facility]) [address] , [place], [address], 09/11/2023 10:06:50 09/11/19 24 09/11/2023 COMP METAB OLIC PANEL potassium 4.0 mmol/ L 3.6-5. 0 Not Available ([facility]) [address] , [place], [address], 09/11/2023 10:06:50 09/11/19 24 09/11/2023 COMP METAB OLIC PANEL chloride 99 mmol/ L 98-107 Not Available ([facility]) [address] , [place], [address], 09/11/2023 10:06:50 09/11/19 24 09/11/2023 COMP METAB OLIC PANEL carbon dioxide 32.0 mmol/ L 21.0-3 2.0 Not Available ([facility]) [address] [place], [address], 09/11/2023 10:06:50 09/11/19 24 09/11/2023 COMP METAB OLIC PANEL anion gap 12.0 Not Available [facility] ([facility]) [address] [place], [address], 09/11/2023 10:06:50 09/11/19 24 09/11/2023 COMP METAB OLIC PANEL glucose 140 mg/dL 70-120 high Not Available ([facility]) [address] [place], [address], 09/11/2023 10:06:50 09/11/19 24 09/11/2023 COMP METAB OLIC PANEL BUN 15 mg/dL 7-18 Not Available ([facility]) [address], [place], [address], 09/11/2023 10:06:50 09/11/19 24 09/11/2023 COMP METAB OLIC PANEL creatinine 1.1 mg/dL 0.6-1. 3 Not Available ([facility]) [address], [place], [address], 09/11/2023 10:06:50 09/11/19 24 09/11/2023 COMP METAB OLIC PANEL glomerular filtration rate TNP mlper min 60- TEST NOT PERFO RMED GFR has only been valid ated from 18 to 70 years of age. Not Available ([facility]) [address] , [place], [address], 09/11/2023 10:06:50 09/11/19 24 09/11/2023 COMP METAB OLIC PANEL total protein 7.2 g/dL 6.4-8. 2 Not Available ([facility]) [address] , [place], [address], 09/11/2023 10:06:50 09/11/19 24 09/11/2023 COMP METAB OLIC PANEL albumin 4.1 g/dL 3.4-5. 0 Not Available ([facility]) [address] , [place], [address], 09/11/2023 10:06:50 09/11/19 24 09/11/2023 COMP METAB OLIC PANEL globulin 3.1 Not Available [facility] ([facility]) [address] , [place], [address], 09/11/2023 10:06:50 09/11/19 24 09/11/2023 COMP METAB OLIC PANEL alb/glob ratio 1.3 0.7-2 Not Available [facility] ([facility]) [address], [place], [address], 09/11/2023 10:06:50 09/11/19 24 09/11/2023 COMP METAB OLIC PANEL calcium 9.6 mg/dL 8.5-10 .5 Not Available ([facility]) [address], [place], [address], 09/11/2023 10:06:50 09/11/19 24 09/11/2023 COMP METAB OLIC PANEL bilirubin total 0.50 mg/dL 0.10-1 .00 Not Available ([facility]) [address] , [place], [address], 09/11/2023 10:06:50 09/11/19 24 09/11/2023 COMP METAB OLIC PANEL AST (SGOT) 12 U/L 0-37 Not Available [facility] ([facility]) [address], [place], [address], 09/11/2023 10:06:50 09/11/19 24 09/11/2023 COMP METAB OLIC PANEL ALT (SGPT) 17 U/L 0-65 Not Available [facility] ([facility]) [address], [place], [address], 09/11/2023 10:06:50 09/11/19 24 09/11/2023 COMP METAB OLIC PANEL alk phosphatase 112 U/L 46-116 Not Available [facility] ([facility]) [address] , [place], [address], 09/11/2023 10:06:50 12/03/19 24 12/03/2023 CBC AUTO W DIFF WBC 8.1 K/uL 4.0-10 .5 Not Available ([facility]) [address] , [place], [address], 12/03/2023 09:59:25 12/03/19 24 12/03/2023 CBC AUTO W DIFF RBC 4.5 M/mm3 4.2-6. 4 Not Available ([facility]) [address] , [place], [address], 12/03/2023 09:59:25 12/03/19 24 12/03/2023 CBC AUTO W DIFF HGB 13.3 gm/dL 12.5-1 6.0 Not Available ([facility]) [address] , [place], [address], 12/03/2023 09:59:25 12/03/19 24 12/03/2023 CBC AUTO W DIFF HCT 40.8 % 37.0-4 7.0 Not Available ([facility]) [address] , [place], [address], 12/03/2023 09:59:25 12/03/19 24 12/03/2023 CBC AUTO W DIFF MCV 90.5 fL 78-100 Not Available ([facility]) [address] , [place], [address], 12/03/2023 09:59:25 12/03/19 24 12/03/2023 CBC AUTO W DIFF MCH 29.5 pg 27-31 Not Available ([facility]) [address] , [place], [address], 12/03/2023 09:59:25 12/03/19 24 12/03/2023 CBC AUTO W DIFF MCHC 32.6 g/dL 32-36 Not Available ([facility]) [address] , [place], [address], 12/03/2023 09:59:25 12/03/19 24 12/03/2023 CBC AUTO W DIFF RDW 13.5 % 11.5-1 4.0 Not Available ([facility]) [address], [place], [address], 12/03/2023 09:59:25 12/03/19 24 12/03/2023 CBC AUTO W DIFF platelet count 234 K/uL 150-45 0 Not Available ([facility]) [address], [place], [address], 12/03/2023 09:59:25 12/03/19 24 12/03/2023 CBC AUTO W DIFF MPV 9.8 fL 6-9.5 high Not Available ([facility]) [address], [place], [address], 12/03/2023 09:59:25 12/03/19 24 12/03/2023 CBC AUTO W DIFF neutrophil% 66.9 % 43-65 high Not Available [facility] ([facility]) [address] , [place], [address], 12/03/2023 09:59:25 12/03/19 24 12/03/2023 CBC AUTO W DIFF lymphocyte% 16.2 % 20.5-4 5.5 low Not Available ([facility]) [address] , [place], [address], 12/03/2023 09:59:25 12/03/19 24 12/03/2023 CBC AUTO W DIFF monocyte% 9.4 % 5.5-11 .7 Not Available ([facility]) [address] , [place], [address], 12/03/2023 09:59:25 12/03/19 24 12/03/2023 CBC AUTO W DIFF eosinophil% 6.1 % 0.9-2. 9 high Not Available ([facility]) [address] , [place], [address], 12/03/2023 09:59:25 12/03/19 24 12/03/2023 CBC AUTO W DIFF basophil% 0.7 % 0.2-1. 0 Not Available ([facility]) [address] [place], [address], 12/03/2023 09:59:25 12/03/19 24 12/03/2023 CBC AUTO W DIFF immature granulocytes % 0.7 % 0.0-0. 8 Not Available ([facility]) [address] [place], [address], 12/03/2023 09:59:25 12/03/19 24 12/03/2023 CBC AUTO W DIFF nucleated red blood cells % 0.0 % Not Available [facility] ([facility]) [address] [place], [address], 12/03/2023 09:59:25 12/03/19 24 12/03/2023 CBC AUTO W DIFF neutrophil# 5.4 K/uL 2.2-4. 8 high Not Available ([facility]) [address] [place], [address], 12/03/2023 09:59:25 12/03/19 24 12/03/2023 CBC AUTO W DIFF lymphocyte# 1.3 cell/ mcL 1.3-2. 9 Not Available ([facility]) [address] [place], [address], 12/03/2023 09:59:25 12/03/19 24 12/03/2023 CBC AUTO W DIFF monocyte# 0.8 cell/ mcL 0.3-0. 8 Not Available ([facility]) [address] [place], [address], 12/03/2023 09:59:25 12/03/19 24 12/03/2023 CBC AUTO W DIFF eosinophil# 0.5 cell/ mcL 0-0.2 high Not Available ([facility]) [address] [place], [address], 12/03/2023 09:59:25 12/03/19 24 12/03/2023 CBC AUTO W DIFF basophil# 0.1 cell/ mcL 0.0-1. 0 Not Available ([facility]) [address], [place], [address], 12/03/2023 09:59:25 12/03/19 24 12/03/2023 CBC AUTO W DIFF immature gramulocytes # 0.06 K/uL Not Available [facility] ([facility]) [address], [place], [address], 12/03/2023 09:59:25 12/03/19 24 12/03/2023 CBC AUTO W DIFF nucleated red blood cells # 0.00 K/uL Not Available [facility] ([facility]) [address], [place], [address], 12/03/2023 09:59:25 12/03/19 24 12/03/2023 CBC AUTO W DIFF manual differential NO Not Available ([facility]) [address], [place], [address], 12/03/2023 09:59:25 12/03/19 24 12/03/2023 COMP METAB OLIC PANEL sodium 140 mmol/ L 136-14 5 Not Available ([facility]) [address], [place], [address], 12/03/2023 10:38:18 12/03/19 24 12/03/2023 COMP METAB OLIC PANEL potassium 3.5 mmol/ L 3.6-5. 0 low Not Available ([facility]) [address], [place], [address], 12/03/2023 10:38:18 12/03/19 24 12/03/2023 COMP METAB OLIC PANEL chloride 100 mmol/ L 98-107 Not Available ([facility]) [address] , [place], [address], 12/03/2023 10:38:18 12/03/19 24 12/03/2023 COMP METAB OLIC PANEL carbon dioxide 33.6 mmol/ L 21.0-3 2.0 high Not Available ([facility]) [address], [place], [address], 12/03/2023 10:38:18 12/03/19 24 12/03/2023 COMP METAB OLIC PANEL anion gap 9.9 Not Available [facility] ([facility]) [address] , [place], [address], 12/03/2023 10:38:18 12/03/19 24 12/03/2023 COMP METAB OLIC PANEL glucose 136 mg/dL 70-120 high Not Available ([facility]) [address], [place], [address], 12/03/2023 10:38:18 12/03/19 24 12/03/2023 COMP METAB OLIC PANEL BUN 8 mg/dL 7-18 Not Available ([facility]) [address] , [place], [address], 12/03/2023 10:38:18 12/03/19 24 12/03/2023 COMP METAB OLIC PANEL creatinine 1.0 mg/dL 0.6-1. 3 Not Available ([facility]) [address] [place], [address], 12/03/2023 10:38:18 12/03/19 24 12/03/2023 COMP METAB OLIC PANEL glomerular filtration rate TNP mlper min 60- TEST NOT PERFO RMED GFR has only been valid ated from 18 to 70 years of age. Not Available ([facility]) [address], [place], [address], 12/03/2023 10:38:18 12/03/19 24 12/03/2023 COMP METAB OLIC PANEL total protein 6.5 g/dL 6.4-8. 2 Not Available ([facility]) [address], [place], [address], 12/03/2023 10:38:18 12/03/19 24 12/03/2023 COMP METAB OLIC PANEL albumin 3.5 g/dL 3.4-5. 0 Not Available ([facility]) [address], [place], [address], 12/03/2023 10:38:18 12/03/19 24 12/03/2023 COMP METAB OLIC PANEL globulin 3.0 Not Available [facility] ([facility]) [address] , [place], [address], 12/03/2023 10:38:18 12/03/19 24 12/03/2023 COMP METAB OLIC PANEL alb/glob ratio 1.2 0.7-2 Not Available [facility] ([facility]) [address], [place], [address], 12/03/2023 10:38:18 12/03/19 24 12/03/2023 COMP METAB OLIC PANEL calcium 9.3 mg/dL 8.5-10 .5 Not Available ([facility]) [address] , [place], [address], 12/03/2023 10:38:18 12/03/19 24 12/03/2023 COMP METAB OLIC PANEL bilirubin total 0.40 mg/dL 0.10-1 .00 Not Available ([facility]) [address] , [place], [address], 12/03/2023 10:38:18 12/03/19 24 12/03/2023 COMP METAB OLIC PANEL AST (SGOT) 11 U/L 0-37 Not Available [facility] ([facility]) [address], [place], [address], 12/03/2023 10:38:18 12/03/19 24 12/03/2023 COMP METAB OLIC PANEL ALT (SGPT) 13 U/L 0-65 Not Available [facility] ([facility]) [address], [place], [address], 12/03/2023 10:38:18 12/03/19 24 12/03/2023 COMP METAB OLIC PANEL alk phosphatase 114 U/L 46-116 Not Available [facility] ([facility]) [address] , [place], [address], 12/03/2023 10:38:18 03/03/20 24 03/03/2024 CBC AUTO W DIFF WBC 7.1 K/uL 4.0-10 .5 Not Available ([facility]) [address] , [place], [address], 03/03/2024 09:46:19 03/03/20 24 03/03/2024 CBC AUTO W DIFF RBC 4.7 M/mm3 4.2-6. 4 Not Available ([facility]) [address] , [place], [address], 03/03/2024 09:46:19 03/03/20 24 03/03/2024 CBC AUTO W DIFF HGB 13.5 gm/dL 12.5-1 6.0 Not Available ([facility]) [address] , [place], [address], 03/03/2024 09:46:19 03/03/20 24 03/03/2024 CBC AUTO W DIFF HCT 41.5 % 37.0-4 7.0 Not Available ([facility]) [address] , [place], [address], 03/03/2024 09:46:19 03/03/20 24 03/03/2024 CBC AUTO W DIFF MCV 88.9 fL 78-100 Not Available ([facility]) [address] , [place], [address], 03/03/2024 09:46:19 03/03/20 24 03/03/2024 CBC AUTO W DIFF MCH 28.9 pg 27-31 Not Available ([facility]) [address] , [place], [address], 03/03/2024 09:46:19 03/03/20 24 03/03/2024 CBC AUTO W DIFF MCHC 32.5 g/dL 32-36 Not Available ([facility]) [address] , [place], [address], 03/03/2024 09:46:19 03/03/20 24 03/03/2024 CBC AUTO W DIFF RDW 12.6 % 11.5-1 4.0 Not Available ([facility]) [address] , [place], [address], 03/03/2024 09:46:19 03/03/20 24 03/03/2024 CBC AUTO W DIFF platelet count 187 K/uL 150-45 0 Not Available ([facility]) [address] , [place], [address], 03/03/2024 09:46:19 03/03/20 24 03/03/2024 CBC AUTO W DIFF MPV 10.6 fL 6-9.5 high Not Available ([facility]) [address] , [place], [address], 03/03/2024 09:46:19 03/03/20 24 03/03/2024 CBC AUTO W DIFF neutrophil% 63.2 % 43-65 Not Available [facility] ([facility]) [address] , [place], [address], 03/03/2024 09:46:19 03/03/20 24 03/03/2024 CBC AUTO W DIFF lymphocyte% 16.8 % 20.5-4 5.5 low Not Available ([facility]) [address] , [place], [address], 03/03/2024 09:46:19 03/03/20 24 03/03/2024 CBC AUTO W DIFF monocyte% 9.4 % 5.5-11 .7 Not Available ([facility]) [address], [place], [address], 03/03/2024 09:46:19 03/03/20 24 03/03/2024 CBC AUTO W DIFF eosinophil% 7.6 % 0.9-2. 9 high Not Available ([facility]) [address] , [place], [address], 03/03/2024 09:46:19 03/03/20 24 03/03/2024 CBC AUTO W DIFF basophil% 1.0 % 0.2-1. 0 Not Available ([facility]) [address] , [place], [address], 03/03/2024 09:46:19 03/03/20 24 03/03/2024 CBC AUTO W DIFF immature granulocytes % 2.0 % 0.0-0. 8 high Not Available ([facility]) [address] [place], [address], 03/03/2024 09:46:19 03/03/20 24 03/03/2024 CBC AUTO W DIFF nucleated red blood cells % 0.0 % Not Available [facility] ([facility]) [address] [place], [address], 03/03/2024 09:46:19 03/03/20 24 03/03/2024 CBC AUTO W DIFF neutrophil# 4.5 K/uL 2.2-4. 8 Not Available ([facility]) [address], [place], [address], 03/03/2024 09:46:19 03/03/20 24 03/03/2024 CBC AUTO W DIFF lymphocyte# 1.2 cell/ mcL 1.3-2. 9 low Not Available ([facility]) [address] [facility], [place], [address], 03/03/2024 09:46:19 03/03/20 24 03/03/2024 CBC AUTO W DIFF monocyte# 0.7 cell/ mcL 0.3-0. 8 Not Available ([facility]) [address], [place], [address], 03/03/2024 09:46:19 03/03/20 24 03/03/2024 CBC AUTO W DIFF eosinophil# 0.5 cell/ mcL 0-0.2 high Not Available ([facility]) [address] [place], [address], 03/03/2024 09:46:19 03/03/20 24 03/03/2024 CBC AUTO W DIFF basophil# 0.1 cell/ mcL 0.0-1. 0 Not Available ([facility]) [address] [place], [address], 03/03/2024 09:46:19 03/03/20 24 03/03/2024 CBC AUTO W DIFF immature gramulocytes # 0.14 K/uL Not Available [facility] ([facility]) [address] [place], [address], 03/03/2024 09:46:19 03/03/20 24 03/03/2024 CBC AUTO W DIFF nucleated red blood cells # 0.00 K/uL Not Available [facility] ([facility]) [address] [place], [address], 03/03/2024 09:46:19 03/03/20 24 03/03/2024 CBC AUTO W DIFF manual differential NO Not Available ([facility]) [address], [place], [address], 03/03/2024 09:46:19 03/03/20 24 03/03/2024 COMP METAB OLIC PANEL sodium 142 mmol/ L 136-14 5 Not Available ([facility]) [address], [place], [address], 03/03/2024 11:18:32 03/03/20 24 03/03/2024 COMP METAB OLIC PANEL potassium 3.6 mmol/ L 3.6-5. 0 Not Available ([facility]) [address], [place], [address], 03/03/2024 11:18:32 03/03/20 24 03/03/2024 COMP METAB OLIC PANEL chloride 103 mmol/ L 98-107 Not Available ([facility]) [address], [place], [address], 03/03/2024 11:18:32 03/03/20 24 03/03/2024 COMP METAB OLIC PANEL carbon dioxide 31.1 mmol/ L 21.0-3 2.0 Not Available ([facility]) [address], [place], [address], 03/03/2024 11:18:32 03/03/20 24 03/03/2024 COMP METAB OLIC PANEL anion gap 11.5 Not Available [facility] ([facility]) [address], [place], [address], 03/03/2024 11:18:32 03/03/20 24 03/03/2024 COMP METAB OLIC PANEL glucose 97 mg/dL 70-120 Not Available ([facility]) [address], [place], [address], 03/03/2024 11:18:32 03/03/20 24 03/03/2024 COMP METAB OLIC PANEL BUN 14 mg/dL 7-18 Not Available ([facility]) [address], [place], [address], 03/03/2024 11:18:32 03/03/20 24 03/03/2024 COMP METAB OLIC PANEL creatinine 0.9 mg/dL 0.6-1. 3 Not Available ([facility]) [address], [place], [address], 03/03/2024 11:18:32 03/03/20 24 03/03/2024 COMP METAB OLIC PANEL glomerular filtration rate 66 mlper min 60- GFR LIMIT ATION : The eGFR equat ion CKD-E PI 2020 is not appli cable for pedia tric patie nts or great er than 90 years of age. The follo wing condi tions may alter the GFR resul t: extre mes in body size, malnu triti on or obesi ty, skele haritha muscl e disea se, parap legia or quadr ipleg ia, veget cielo diet or rapid ly kenyon ing kiney funct ion. Not Available ([facility]) [address], [place], [address], 03/03/2024 11:18:32 03/03/20 24 03/03/2024 COMP METAB OLIC PANEL total protein 7.0 g/dL 6.4-8. 2 Not Available ([facility]) [address], [place], [address], 03/03/2024 11:18:32 03/03/20 24 03/03/2024 COMP METAB OLIC PANEL albumin 3.7 g/dL 3.4-5. 0 Not Available ([facility]) [address], [place], [address], 03/03/2024 11:18:32 03/03/20 24 03/03/2024 COMP METAB OLIC PANEL globulin 3.3 Not Available [facility] ([facility]) [address], [place], [address], 03/03/2024 11:18:32 03/03/20 24 03/03/2024 COMP METAB OLIC PANEL alb/glob ratio 1.1 0.7-2 Not Available [facility] ([facility]) [address] [address], [place], [address], 03/03/2024 11:18:32 03/03/20 24 03/03/2024 COMP METAB OLIC PANEL calcium 9.2 mg/dL 8.5-10 .5 Not Available ([facility]) [address] , [place], [address], 03/03/2024 11:18:32 03/03/20 24 03/03/2024 COMP METAB OLIC PANEL bilirubin total 0.40 mg/dL 0.10-1 .00 Not Available ([facility]) [address], [place], [address], 03/03/2024 11:18:32 03/03/20 24 03/03/2024 COMP METAB OLIC PANEL AST (SGOT) 12 U/L 0-37 Not Available [facility] ([facility]) [address] , [place], [address], 03/03/2024 11:18:32 03/03/20 24 03/03/2024 COMP METAB OLIC PANEL ALT (SGPT) 11 U/L 0-65 Not Available [facility] ([facility]) [address] , [place], [address], 03/03/2024 11:18:32 03/03/20 24 03/03/2024 COMP METAB OLIC PANEL alk phosphatase 117 U/L 46-116 high Not Available [facility] ([facility]) [address], [place], [address], 03/03/2024 11:18:32 06/03/19 25 06/02/2024 CBC AUTO W DIFF WBC 6.3 K/uL 4.0-10 .5 Not Available ([facility]) [address], [place], [address], 06/02/2024 10:02:27 06/03/19 25 06/02/2024 CBC AUTO W DIFF RBC 4.3 M/mm3 4.2-6. 4 Not Available ([facility]) [address], [place], [address], 06/02/2024 10:02:27 06/03/19 25 06/02/2024 CBC AUTO W DIFF HGB 12.3 gm/dL 12.5-1 6.0 low Not Available ([facility]) [address] , [place], [address], 06/02/2024 10:02:27 06/03/19 25 06/02/2024 CBC AUTO W DIFF HCT 37.9 % 37.0-4 7.0 Not Available ([facility]) [address], [place], [address], 06/02/2024 10:02:27 06/03/19 25 06/02/2024 CBC AUTO W DIFF MCV 88.3 fL 78-100 Not Available ([facility]) [address], [place], [address], 06/02/2024 10:02:27 06/03/19 25 06/02/2024 CBC AUTO W DIFF MCH 28.7 pg 27-31 Not Available ([facility]) [address], [place], [address], 06/02/2024 10:02:27 06/03/19 25 06/02/2024 CBC AUTO W DIFF MCHC 32.5 g/dL 32-36 Not Available ([facility]) [address] , [place], [address], 06/02/2024 10:02:27 06/03/19 25 06/02/2024 CBC AUTO W DIFF RDW 13.3 % 11.5-1 4.0 Not Available ([facility]) [address] , [place], [address], 06/02/2024 10:02:27 06/03/19 25 06/02/2024 CBC AUTO W DIFF platelet count 190 K/uL 150-45 0 Not Available ([facility]) [address], [place], [address], 06/02/2024 10:02:27 06/03/19 25 06/02/2024 CBC AUTO W DIFF MPV 10.8 fL 6-9.5 high Not Available ([facility]) [address], [place], [address], 06/02/2024 10:02:27 06/03/19 25 06/02/2024 CBC AUTO W DIFF neutrophil% 63.2 % 43-65 Not Available [facility] ([facility]) [address] [place], [address], 06/02/2024 10:02:27 06/03/19 25 06/02/2024 CBC AUTO W DIFF lymphocyte% 16.9 % 20.5-4 5.5 low Not Available ([facility]) [address] [place], [address], 06/02/2024 10:02:27 06/03/19 25 06/02/2024 CBC AUTO W DIFF monocyte% 11.2 % 5.5-11 .7 Not Available ([facility]) [address], [place], [address], 06/02/2024 10:02:27 06/03/19 25 06/02/2024 CBC AUTO W DIFF eosinophil% 6.9 % 0.9-2. 9 high Not Available ([facility]) [address], [place], [address], 06/02/2024 10:02:27 06/03/19 25 06/02/2024 CBC AUTO W DIFF basophil% 0.8 % 0.2-1. 0 Not Available ([facility]) [address], [place], [address], 06/02/2024 10:02:27 06/03/19 25 06/02/2024 CBC AUTO W DIFF immature granulocytes % 1.0 % 0.0-0. 8 high Not Available ([facility]) [address], [place], [address], 06/02/2024 10:02:27 06/03/19 25 06/02/2024 CBC AUTO W DIFF nucleated red blood cells % 0.0 % Not Available [facility] ([facility]) [address], [place], [address], 06/02/2024 10:02:27 06/03/19 25 06/02/2024 CBC AUTO W DIFF neutrophil# 4.0 K/uL 2.2-4. 8 Not Available ([facility]) [address], [place], [address], 06/02/2024 10:02:27 06/03/19 25 06/02/2024 CBC AUTO W DIFF lymphocyte# 1.1 cell/ mcL 1.3-2. 9 low Not Available ([facility]) [address], [place], [address], 06/02/2024 10:02:27 06/03/19 25 06/02/2024 CBC AUTO W DIFF monocyte# 0.7 cell/ mcL 0.3-0. 8 Not Available ([facility]) [address] , [place], [address], 06/02/2024 10:02:27 06/03/19 25 06/02/2024 CBC AUTO W DIFF eosinophil# 0.4 cell/ mcL 0-0.2 high Not Available ([facility]) [address] , [place], [address], 06/02/2024 10:02:27 06/03/19 25 06/02/2024 CBC AUTO W DIFF basophil# 0.1 cell/ mcL 0.0-1. 0 Not Available ([facility]) [address] , [place], [address], 06/02/2024 10:02:27 06/03/19 25 06/02/2024 CBC AUTO W DIFF immature gramulocytes # 0.06 K/uL Not Available [facility] ([facility]) [address], [place], [address], 06/02/2024 10:02:27 06/03/19 25 06/02/2024 CBC AUTO W DIFF nucleated red blood cells # 0.00 K/uL Not Available [facility] ([facility]) [address], [place], [address], 06/02/2024 10:02:27 06/03/19 25 06/02/2024 CBC AUTO W DIFF manual differential NO Not Available ([facility]) [address] , [place], [address], 06/02/2024 10:02:27 06/03/19 25 06/02/2024 COMP METAB OLIC PANEL sodium 140 mmol/ L 136-14 5 Not Available ([facility]) [address] , [place], [address], 06/02/2024 10:10:56 06/03/19 25 06/02/2024 COMP METAB OLIC PANEL potassium 3.6 mmol/ L 3.6-5. 0 Not Available ([facility]) [address] , [place], [address], 06/02/2024 10:10:56 06/03/19 25 06/02/2024 COMP METAB OLIC PANEL chloride 101 mmol/ L 98-107 Not Available ([facility]) [address] , [place], [address], 06/02/2024 10:10:56 06/03/19 25 06/02/2024 COMP METAB OLIC PANEL carbon dioxide 32.5 mmol/ L 21.0-3 2.0 high Not Available ([facility]) [address] , [place], [address], 06/02/2024 10:10:56 06/03/19 25 06/02/2024 COMP METAB OLIC PANEL anion gap 10.1 Not Available [facility] ([facility]) [address] , [place], [address], 06/02/2024 10:10:56 06/03/19 25 06/02/2024 COMP METAB OLIC PANEL glucose 251 mg/dL 70-120 high Not Available ([facility]) [address] , [place], [address], 06/02/2024 10:10:56 06/03/19 25 06/02/2024 COMP METAB OLIC PANEL BUN 13 mg/dL 7-18 Not Available ([facility]) [address] , [place], [address], 06/02/2024 10:10:56 06/03/19 25 06/02/2024 COMP METAB OLIC PANEL creatinine 0.9 mg/dL 0.6-1. 3 Not Available ([facility]) [address] , [place], [address], 06/02/2024 10:10:56 06/03/19 25 06/02/2024 COMP METAB OLIC PANEL glomerular filtration rate 66 mlper min 60- GFR LIMIT ATION : The eGFR equat ion CKD-E PI 2020 is not appli cable for pedia tric patie nts or great er than 90 years of age. The follo wing condi tions may alter the GFR resul t: extre mes in body size, malnu triti on or obesi ty, skele haritha muscl e disea se, parap legia or quadr ipleg ia, veget cielo diet or rapid ly kenyon ing kiney funct ion. Not Available ([facility]) [address] , [place], [address], 06/02/2024 10:10:56 06/03/19 25 06/02/2024 COMP METAB OLIC PANEL osmolality (calculated) 300 mOsm/ kg 275-30 1 OSMOL ALITY IS A CALCU LATIO N UTILI ZING THE SERUM /PLAS MA SODIU M, GLUCO SE AND UREA NITRO GEN (BUN) LEVEL S. FOR THE MOST ACCUR ATE RESUL T A MEASU RED SERUM OSMOL ALITY IS SUGGE STED. Not Available ([facility]) [address] , [place], [address], 06/02/2024 10:10:56 06/03/19 25 06/02/2024 COMP METAB OLIC PANEL total protein 6.6 g/dL 6.4-8. 2 Not Available ([facility]) [address] , [place], [address], 06/02/2024 10:10:56 06/03/19 25 06/02/2024 COMP METAB OLIC PANEL albumin 3.2 g/dL 3.4-5. 0 low Not Available ([facility]) [address], [place], [address], 06/02/2024 10:10:56 06/03/19 25 06/02/2024 COMP METAB OLIC PANEL globulin 3.4 Not Available [facility] ([facility]) [address], [place], [address], 06/02/2024 10:10:56 06/03/19 25 06/02/2024 COMP METAB OLIC PANEL alb/glob ratio 0.9 0.7-2 Not Available [facility] ([facility]) [address] [facility], [place], [address], 06/02/2024 10:10:56 06/03/19 25 06/02/2024 COMP METAB OLIC PANEL calcium 9.3 mg/dL 8.5-10 .5 Not Available ([facility]) [address] [facility], [place], [address], 06/02/2024 10:10:56 06/03/19 25 06/02/2024 COMP METAB OLIC PANEL bilirubin total 0.50 mg/dL 0.10-1 .00 Not Available ([facility]) [address] [facility], [place], [address], 06/02/2024 10:10:56 06/03/19 25 06/02/2024 COMP METAB OLIC PANEL AST (SGOT) 10 U/L 0-37 Not Available [facility] ([facility]) [address], [place], [address], 06/02/2024 10:10:56 06/03/19 25 06/02/2024 COMP METAB OLIC PANEL ALT (SGPT) 19 U/L 0-65 Not Available [facility] ([facility]) [address] [facility], [place], [address], 06/02/2024 10:10:56 06/03/19 25 06/02/2024 COMP METAB OLIC PANEL alk phosphatase 130 U/L 46-116 high Not Available [facility] ([facility]) [address], [place], [address], 06/02/2024 10:10:56 09/03/19 25 09/02/2024 COMP METAB OLIC PANEL sodium 142 mmol/ L 136-14 5 Not Available ([facility]) [address], [place], [address], 09/02/2024 10:28:32 09/03/19 25 09/02/2024 COMP METAB OLIC PANEL potassium 3.9 mmol/ L 3.6-5. 0 Not Available ([facility]) [address], [place], [address], 09/02/2024 10:28:32 09/03/19 25 09/02/2024 COMP METAB OLIC PANEL chloride 103 mmol/ L 98-107 Not Available ([facility]) [address], [place], [address], 09/02/2024 10:28:32 09/03/19 25 09/02/2024 COMP METAB OLIC PANEL carbon dioxide 30.0 mmol/ L 21.0-3 2.0 Not Available ([facility]) [address], [place], [address], 09/02/2024 10:28:32 09/03/19 25 09/02/2024 COMP METAB OLIC PANEL anion gap 12.9 Not Available [facility] ([facility]) [address], [place], [address], 09/02/2024 10:28:32 09/03/19 25 09/02/2024 COMP METAB OLIC PANEL glucose 111 mg/dL 70-120 Not Available ([facility]) [address], [place], [address], 09/02/2024 10:28:32 09/03/19 25 09/02/2024 COMP METAB OLIC PANEL BUN 17 mg/dL 7-18 Not Available ([facility]) [address], [place], [address], 09/02/2024 10:28:32 09/03/19 25 09/02/2024 COMP METAB OLIC PANEL creatinine 1.0 mg/dL 0.6-1. 3 Not Available ([facility]) [address], [place], [address], 09/02/2024 10:28:32 09/03/19 25 09/02/2024 COMP METAB OLIC PANEL glomerular filtration rate 58 mlper min 60- low GFR LIMIT ATION : The eGFR equat ion CKD-E PI 2020 is not appli cable for pedia tric patie nts or great er than 90 years of age. The follo wing condi tions may alter the GFR resul t: extre mes in body size, malnu triti on or obesi ty, skele haritha muscl e disea se, parap legia or quadr ipleg ia, veget cielo diet or rapid ly kenyon ing kiney funct ion. Not Available ([facility]) [address], [place], [address], 09/02/2024 10:28:32 09/03/19 25 09/02/2024 COMP METAB OLIC PANEL osmolality (calculated) 297 mOsm/ kg 275-30 1 OSMOL ALITY IS A CALCU LATIO N UTILI ZING THE SERUM /PLAS MA SODIU M, GLUCO SE AND UREA NITRO GEN (BUN) LEVEL S. FOR THE MOST ACCUR ATE RESUL T A MEASU RED SERUM OSMOL ALITY IS SUGGE STED. Not Available ([facility]) [address], [place], [address], 09/02/2024 10:28:32 09/03/19 25 09/02/2024 COMP METAB OLIC PANEL total protein 6.8 g/dL 6.4-8. 2 Not Available ([facility]) [address], [place], [address], 09/02/2024 10:28:32 09/03/19 25 09/02/2024 COMP METAB OLIC PANEL albumin 3.6 g/dL 3.4-5. 0 Not Available ([facility]) [address], [place], [address], 09/02/2024 10:28:32 09/03/19 25 09/02/2024 COMP METAB OLIC PANEL globulin 3.2 Not Available [facility] ([facility]) [address], [place], [address], 09/02/2024 10:28:32 09/03/19 25 09/02/2024 COMP METAB OLIC PANEL alb/glob ratio 1.1 0.7-2 Not Available [facility] ([facility]) [address], [place], [address], 09/02/2024 10:28:32 09/03/19 25 09/02/2024 COMP METAB OLIC PANEL calcium 9.2 mg/dL 8.5-10 .5 Not Available ([facility]) [address], [place], [address], 09/02/2024 10:28:32 09/03/19 25 09/02/2024 COMP METAB OLIC PANEL bilirubin total 0.40 mg/dL 0.10-1 .00 Not Available ([facility]) [address], [place], [address], 09/02/2024 10:28:32 09/03/19 25 09/02/2024 COMP METAB OLIC PANEL AST (SGOT) 11 U/L 0-37 Not Available [facility] ([facility]) [address] , [place], [address], 09/02/2024 10:28:32 09/03/19 25 09/02/2024 COMP METAB OLIC PANEL ALT (SGPT) 19 U/L 0-65 Not Available [facility] ([facility]) [address], [place], [address], 09/02/2024 10:28:32 09/03/19 25 09/02/2024 COMP METAB OLIC PANEL alk phosphatase 117 U/L 46-116 high Not Available [facility] ([facility]) [address], [place], [address], 09/02/2024 10:28:32 09/03/19 25 09/02/2024 CBC AUTO W DIFF WBC 3.4 K/uL 4.0-10 .5 low Not Available ([facility]) [address] , [place], [address], 09/02/2024 10:42:36 09/03/19 25 09/02/2024 CBC AUTO W DIFF RBC 5.1 M/mm3 4.2-6. 4 Not Available ([facility]) [address] , [place], [address], 09/02/2024 10:42:36 09/03/19 25 09/02/2024 CBC AUTO W DIFF HGB 13.9 gm/dL 12.5-1 6.0 Not Available ([facility]) [address] , [place], [address], 09/02/2024 10:42:36 09/03/19 25 09/02/2024 CBC AUTO W DIFF HCT 43.5 % 37.0-4 7.0 Not Available ([facility]) [address] , [place], [address], 09/02/2024 10:42:36 09/03/19 25 09/02/2024 CBC AUTO W DIFF MCV 86.0 fL 78-100 Not Available ([facility]) [address] , [place], [address], 09/02/2024 10:42:36 09/03/19 25 09/02/2024 CBC AUTO W DIFF MCH 27.5 pg 27-31 Not Available ([facility]) [address] , [place], [address], 09/02/2024 10:42:36 09/03/19 25 09/02/2024 CBC AUTO W DIFF MCHC 32.0 g/dL 32-36 Not Available ([facility]) [address] , [place], [address], 09/02/2024 10:42:36 09/03/19 25 09/02/2024 CBC AUTO W DIFF RDW 13.0 % 11.5-1 4.0 Not Available ([facility]) [address], [place], [address], 09/02/2024 10:42:36 09/03/19 25 09/02/2024 CBC AUTO W DIFF platelet count 218 K/uL 150-45 0 Not Available ([facility]) [address] , [place], [address], 09/02/2024 10:42:36 09/03/19 25 09/02/2024 CBC AUTO W DIFF MPV 10.0 fL 6-9.5 high Not Available ([facility]) [address] [place], [address], 09/02/2024 10:42:36 09/03/19 25 09/02/2024 CBC AUTO W DIFF neutrophil% 10.4 % 43-65 low Not Available [facility] ([facility]) [address] [place], [address], 09/02/2024 10:42:36 09/03/19 25 09/02/2024 CBC AUTO W DIFF lymphocyte% 45.7 % 20.5-4 5.5 high Not Available ([facility]) [address] , [place], [address], 09/02/2024 10:42:36 09/03/19 25 09/02/2024 CBC AUTO W DIFF monocyte% 23.4 % 5.5-11 .7 high Not Available ([facility]) [address], [place], [address], 09/02/2024 10:42:36 09/03/19 25 09/02/2024 CBC AUTO W DIFF eosinophil% 18.4 % 0.9-2. 9 high Not Available ([facility]) [address], [place], [address], 09/02/2024 10:42:36 09/03/19 25 09/02/2024 CBC AUTO W DIFF basophil% 1.8 % 0.2-1. 0 high Not Available ([facility]) [address], [place], [address], 09/02/2024 10:42:36 09/03/19 25 09/02/2024 CBC AUTO W DIFF immature granulocytes % 0.3 % 0.0-0. 8 Not Available ([facility]) [address], [place], [address], 09/02/2024 10:42:36 09/03/19 25 09/02/2024 CBC AUTO W DIFF nucleated red blood cells % 0.0 % Not Available [facility] ([facility]) [address], [place], [address], 09/02/2024 10:42:36 09/03/19 25 09/02/2024 CBC AUTO W DIFF neutrophil# 0.4 K/uL 2.2-4. 8 low Not Available ([facility]) [address] [place], [address], 09/02/2024 10:42:36 09/03/19 25 09/02/2024 CBC AUTO W DIFF lymphocyte# 1.5 cell/ mcL 1.3-2. 9 Not Available ([facility]) [address], [place], [address], 09/02/2024 10:42:36 09/03/19 25 09/02/2024 CBC AUTO W DIFF monocyte# 0.8 cell/ mcL 0.3-0. 8 Not Available ([facility]) [address], [place], [address], 09/02/2024 10:42:36 09/03/19 25 09/02/2024 CBC AUTO W DIFF eosinophil# 0.6 cell/ mcL 0-0.2 high Not Available ([facility]) [address], [place], [address], 09/02/2024 10:42:36 09/03/19 25 09/02/2024 CBC AUTO W DIFF basophil# 0.1 cell/ mcL 0.0-1. 0 Not Available ([facility]) [address] [facility], [place], [address], 09/02/2024 10:42:36 09/03/19 25 09/02/2024 CBC AUTO W DIFF immature gramulocytes # 0.01 K/uL Not Available [facility] ([facility]) [address] [facility], [place], [address], 09/02/2024 10:42:36 09/03/19 25 09/02/2024 CBC AUTO W DIFF nucleated red blood cells # 0.00 K/uL Not Available [facility] ([facility]) [address] [place], [address], 09/02/2024 10:42:36 09/03/19 25 09/02/2024 CBC AUTO W DIFF manual differential YES Not Available ([facility]) [address] [facility], [place], [address], 09/02/2024 10:42:36 09/03/19 25 09/02/2024 CBC AUTO W DIFF segmented neutrophil 11 % 42-76 low Not Available [facility] ([facility]) [address] [facility], [place], [address], 09/02/2024 10:42:36 09/03/19 25 09/02/2024 CBC AUTO W DIFF lymphocyte 44 % 15-41 high Not Available [facility] ([facility]) [address] [facility], [place], [address], 09/02/2024 10:42:36 09/03/19 25 09/02/2024 CBC AUTO W DIFF monocyte 20 % 2-9 high Not Available [facility] ([facility]) [address] [facility], [place], [address], 09/02/2024 10:42:36 09/03/19 25 09/02/2024 CBC AUTO W DIFF eosinophil 19 % 0-3 high Not Available [facility] ([facility]) [address] [facility], [place], [address], 09/02/2024 10:42:36 09/03/19 25 09/02/2024 CBC AUTO W DIFF basophil 5 0-1 high Not Available [facility] ([facility]) [address] [place], [address], 09/02/2024 10:42:36 09/03/19 25 09/02/2024 CBC AUTO W DIFF metamyelocyt e 1 % 0-1 Not Available [facility] ([facility]) [address] [place], [address], 09/02/2024 10:42:36 09/03/19 25 09/02/2024 CBC AUTO W DIFF platelet estimate ADEQUA TE adequa te Not Available ([facility]) [address] , [place], [address], 09/02/2024 10:42:36 09/03/19 25 09/02/2024 CBC AUTO W DIFF platelet morphology NORMAL normal Not Available ([facility]) [address], [place], [address], 09/02/2024 10:42:36 09/03/19 25 09/02/2024 CBC AUTO W DIFF RBC morphology NORMAL normal Not Available ([facility]) [address] , [place], [address], 09/02/2024 10:42:36 09/03/19 25 09/02/2024 LDH (LD) LDH 181 U/L 0-190 Not Available ([facility]) [address] , [place], [address], 09/02/2024 10:46:50 08/28/19 24 08/27/2023 CT, chest , w/ contr ast [facility] [address] [place], [place] [id number] Phone: Fax: Name: TAY PURDY Exam Date: 024 : 948 Age 77 years Gender : F Access ion: [id number] Physic aiden: ENRIQUE LOU Facili ty: [facility] Facili ty HSV: Outpat ient Exam: CT CHEST W CT CHEST, ABDOME N AND PELVIS WITH CONTRA ST HISTOR Y: Follic ular lympho ma TECHNI QUE: Oral and IV contra st enhanc ed exam Compar jose elias: May 24, 2023 FINDIN GS: Chest: Signif icant interv al decrea se in previo us scatte red tree-i n-bud nodula r and patchy ground glass opacit ies opacit ies. No consol idatio n. No pleura l effusi on. No pneumo thorax . Normal heart size. No perica rdial effusi on. Extens dudley multiv essel somers ry artery calcif icatio ns. Calcif ied plaque s in the thorac ic aorta, otherw ise normal in calibe r. No suspic ious lympha denopa thy in the chest. Stable small promin ent axilla ry lymph nodes. Degene rative change s of the spine. No acute bony abnorm ality. Osteop enia. Abdome n/pelv is: Essent ially stable multip le enlarg ed mesent christine and retrop eriton eal lymph nodes. . A centra l mesent christine root lymph node conglo merate /mesen teric mass measur ing approx imatel y 16 x 12 cm is essent ially stable . Multip le small enlarg ed retrop eriton eal lymph nodes are also stable . No ascite s. No free air. Liver, gallbl adder and adrena l glands and pancre as are unrema rkable . Small cystic lesion s in the spleen are stable , possib ly cyst or naina iomas. Bilate ral simple renal cysts. No obstru cting stone or hydron ephros is. Stable gastri c band device . Coloni c divert iculos is withou t acute divert iculit is. Hyster ectomy . Decomp ressed bladde r, otherw ise no focal bladde r wall abnorm ality. Osteop enia. Degene rative change s of the lumbos acral spine. No acute bony abnorm ality. Prior right total hip arthro plasty .. IMPRES EMBER: 1. Signif icant interv al improv ement in previo us likely inflam matory or infect ious pulmon tramaine tree-i n-bud nodula r and ground glass opacit ies. 2. Stable mesent christine and retrop eriton eal lympha denopa thy. Legall y authen ticate d by MARISOL Villatoro IVO 08-27 10:41: 00 This study was perfor med using automa gabby techni ques to achiev e radiat ion exposu re as low as reason ably Dictat ed By: Hyacinth Anders Transc ribed By: Hyacinth Stevens Transc ribed On: 024 10:41 AM Electr onical ly signed by: Hyacinth Anders 024 Thank you for referr ing TAY PURDY to [facility] al. Legall y authen ticate d by MARISOL TERRAZAS 08-27 10:41: 00 CC'ed Logic: Orderi ng Provid er: CARMINE CAR Attend ing Provid er: CARMINE CAR Referr ing Provid er: CARMINE CAR Admitt ing Provid er: CARMINE CAR [address] - Physical Therapy [address] [place] [address], [id number], 08/30/2023 12:47:44 07/02/19 25 06/30/2024 CT [facility] [address] [place] [address] Phone: Fax: Name: TAY PURDY Exam Date: 025 : 948 Age 78 years Gender : F Access ion: [id number] Physic aiden: WILIAN ESTRADA Facili ty: [facility] Facili ty HSV: Outpat ient Exam: CT ABD PEL W/ (IV ^ ORAL) EXAMIN ATION: CT ABDOME N PELVIS WITH IV CONTRA ST INDICA TION:[age] years Female 950 follic ular lympho ma unsp intra- abdomi nal lymph nodes COMPAR JOSE ELIAS(S ): CT May 24, 2023 TECHNI QUE: CT abdome n and pelvis with IV and oral contra st. One or more of the follow ing dose-o ptimiz ing techni ques was utiliz ed for this exam: automa gabby exposu re contro l, adjust ment of the mA and/or kV accord ing to patien t size, and/or use of iterat dudley recons tructi on techni que. FINDIN GS: * Lower chest as per nasir pierre chest CT. * Hepato biliar y: No acute abnorm ality. No suspic ious liver lesion s. * Small amount of perisp lenic versus subcap sular fluid along the periph ranjit of the spleen , simila r to prior. Couple small low attenu ating struct ures in the spleen are simila r. * Adrena ls are unrema rkable * Pancre as unrema rkable * Kidney s/uret ers/bl adder: Simple appear ing cysts bilate rally. No nephro lithia sis or hydron ephros is. Bladde r unrema rkable . * Bowel: No acute abnorm ality. Coloni c divert iculos is. LAP-BA ND noted. * Perito neum/m esente ry/ret roperi toneum : Improv ed but persis tent soft tissue infilt ration in the small bowel mesent ranjit with index nodula r compon ent inferi jose measur ing approx imatel y 1.4 cm short axis diamet er is approx imatel y 3.4 cm in this region . Retrop eriton eal lymph nodes also less conspi cuous. Index left para-a ortic node on image 39 measur es approx imatel y 0.5 cm in size, previo usly approx imatel y 1 cm. * No organi zed collec tions, free fluid, or free air. * No acute vascul ar abnorm ality. Genera lized athero sclero tic diseas e. * No acute osseou s abnorm ality. Polyar ticula r degene rative change s. Right hip arthro plasty . Genera lized osteop enia. IMPRES EMBER: Interv al positi ve treatm ent respon se with signif icantl y decrea sed soft tissue nodula rity in the small bowel mesent ranjit and improv ed retrop eriton eal lympha denopa thy. No new or progre ssive diseas e. Electr onical ly signed by: Josiah Negro MD 2024 08:32 AM EDT RP Workst ation: [id number] Dictat ed By: Josiah Negro Transc ribed By: Transc ribed On: 025 1:59 PM Electr onical ly signed by: Josiah Negro Thank you for referr ing FABBYANNA TAY Tamayo to [facility]. Legall y authen ticate d by MARY DAVIS 0 06-30 13:59: 23 CC'ed Logic: Orderi ng Provid er: ARELIS CEDENO Attend ing Provid er: ARELIS CEDENO Referr ing Provid er: ARELIS CEDENO Admitt ing Provid er: ARELIS CEDENO [facility] [address] [facility], [place], [address], 07/01/2024 08:53:08 07/02/19 25 06/30/2024 CT, chest , w/ contr ast [facility] al [address] [place] [address] Phone: Fax: Name: TAY PURDY Exam Date: : [birth year] Age 78 years Gender : F Access ion: [id number] Physic aiden: WILIAN ESTRADA Facili ty: [facility] Facili ty HSV: Outpat ient Exam: CT CHEST W EXAMIN ATION: CT CHEST WITH IV CONTRA ST INDICA TION:[age] years Female 9[birth year] follic ular lympho ma unsp intra- abdomi nal lymph nodes COMPAR JOSE ELIAS(S ): Chest CT August 27, 2023 TECHNI QUE: CT chest with IV contra st. One or more of the follow ing dose-o ptimiz ing techni ques was utiliz ed for this exam: automa gabby exposu re contro l, adjust ment of the mA and/or kV accord ing to patien t size, and/or use of iterat dudley recons tructi on techni que. FINDIN GS: * Soft tissue s and axilla ry region s are unrema rkable . No suspic ious axilla ry lympha denopa thy. * Medias tinum/ vascul ar: No acute abnorm ality. Athero sclero tic diseas e includ ing heavy somers ry artery calcif icatio ns. No suspic ious medias tinal or hilar lympha denopa thy. * Lungs/ pleura : No acute abnorm ality. No suspic ious nodule s or masses . Mild areas of atelec tasis versus scarri ng bilate rally. * Upper abdome n as per dedica gabby CT * MSK: No acute abnorm ality. Polyar ticula r degene rative change s and genera lized osteop enia. IMPRES EMBER: 1. No suspic ious lympha denopa thy eviden t in the chest. 2. No acute abnorm ality. Electr onical ly signed by: Josiah Negro MD 2024 08:34 AM EDT RP Workst ation: [id number] Dictat ed By: Josiah Negro Transc ribed By: Transc ribed On: 025 1:59 PM Electr onical ly signed by: Josiah Negro 025 Thank you for referr ing TAY PURDY to [facility]. Legall y authen ticate d by MARY DAVIS 0 06-30 13:59: 16 CC'ed Logic: Orderi ng Provid er: ARELIS CEDENO Attend ing Provid er: ARELIS CEDENO Referr ing Provid er: ARELIS CEDENO Admitt ing Provid er: ARELIS CEDENO [address] - Physical Therapy [address] [place] [address], [facility], 07/01/2024 08:53:08 Result Notes Documentation Provider Name and Address Organization Details Recorded Time Ct, Chest, W/ Contrast : [address] [place] [address] Name: TAY FONSECA Exam Date: 06/30/2024 : 1945 Age 78 years Gender: F Physician: WILIAN OLSEN Facility: [facility] Facility HSV: Outpatient Exam: CT CHEST W EXAMINATION: CT CHEST WITH IV CONTRAST INDICATION:78 years Female 1945 follicular lymphoma unsp intra-abdominal lymph nodes COMPARISON(S): Chest CT August 27, 2023 TECHNIQUE: CT chest with IV contrast. One or more of the following dose-optimizing techniques was utilized for this exam: automated exposure control, adjustment of the mA and/or kV according to patient size, and/or use of iterative reconstruction technique. FINDINGS: * Soft tissues and axillary regions are unremarkable. No suspicious axillary lymphadenopathy. * Mediastinum/vascular: No acute abnormality. Atherosclerotic disease including heavy coronary artery calcifications. No suspicious mediastinal or hilar lymphadenopathy. * Lungs/pleura: No acute abnormality. No suspicious nodules or masses. Mild areas of atelectasis versus scarring bilaterally. * Upper abdomen as per dedicated CT * MSK: No acute abnormality. Polyarticular degenerative changes and generalized osteopenia. IMPRESSION: 1. No suspicious lymphadenopathy evident in the chest. 2. No acute abnormality. Electronically signed by: Josiah Negro MD 07/01/2024 08:34 AM EDT RP Dictated By: Josiah Negro Transcribed By: Transcribed On: 06/30/2024 1:59 PM Electronically signed by: Josiah Negro 06/30/2024 Thank you for referring TAY FONSECA to . Legally authenticated by MARY DAVIS 2024-06-30 13:59:16 CC'ed Logic: Ordering Provider: RAÚL CEDNEO Attending Provider: RAÚL CEDENO Referring Provider: RAÚL CEDENO Admitting Provider: RAÚL Olsen PA-C [address] [facility], [place], [address], [place] - [facility] [place] [facility] [place] 07/01/2024 08:53:08 Problems Name Problem SNOMED Code Status Onset Date Resolution Date Notes Provider Name and Address Organization Details Recorded Time Anemia 671234269 Active Amy short, [place] - [facility] [place] [facility] [place] 10:29:57 Abdominal mass 802408485 Active Amy short, [place] [facility] [place] 10:29:57 Lymphadenopath y 68443617 Active MCKINLEY Antunez [facility] & [place] 4 10:29:57 Hyperlipidemia 17809655 Active MCKINLEY Antunez [facility] & [place] 4 10:29:57 Fracture of pelvis 12839422 Active MCKINLEY Antunez [facility] & [place] 4 10:29:57 Problem Notes Documentation Provider Name and Address 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 Pt reported that she'd had a heart attack and was having issues with sleeping. SW provided education on sleep hygiene and provided support for pt and encouraged pt to reach out for ongoing needs. M[place]LEY Enciso [facility] & [place] 09/11/2023 16:57:34 Procedures Surgical History Date Name Laterality Status Provider Name and Address Organization Details Recorded Time hysterectomy completed Amy SEN [facility] & [place] 03/20/2023 10:33:17 banding of varix of stomach completed Amy ESN [facility] & [place] 03/20/2023 10:34:08 procedure on ankle completed Amy SEN [facility] & [place] 06/03/2023 13:59:58 Imaging Results None recorded. Procedure Notes None recorded. Medical Equipment None Reported. Allergies Allergen ID Allergen Name Allergen Category Reaction Reaction Severity Criticality Documentation Date Start Date Code Code System Note Provider Name and Address Organization Details Recorded Time 554688 Product containin g penicilli n (product) medicatio n Not available Not available Not available 03/20/2023 10949 8001 SNOMED Other react ions and sever ities : 'Adve rse react ion to subst ance' . [facility] [place] 4 10:29:56 Medications Name Sig Start Date Stop Date Status Note LastModified by Organization Details LastModified Time furosemide 40 mg tablet Take 1 tablet every day by oral route. active Not Available Not Available No t Available methocarbam ol 500 mg tablet 1000 mg by oral route. 03/14 completed Not Available Not Available Not Available atorvastati n 80 mg tablet Take 1 tablet every day by oral route. 2023 active Not Available Not Available Not Avai lable doxycycline hyclate 100 mg capsule Take 1 capsule twice a day by oral route as directed for 10 days. 09/03 completed Not Available Not Available Not Available ipratropium 0.5 mg-albutero l 3 mg (2.5 mg base)/3 mL nebulizatio n soln USE 1 AMPULE IN NEBULIZER THREE TIMES DAILY active Not Available Not Available No t Available citalopram 40 mg tablet active Not Available Not Available Not Available lisinopril 20 mg-hydrochl orothiazide 12.5 mg tablet take 1/2 tablet by mouth once daily . 2023 active Not Available Not Available Not Avai lable azithromyci n 250 mg tablet active Not Available Not Available Not Available citalopram 10 mg tablet 10 mg by oral route. active Not Available Not Available No t Available ondansetron HCl 8 mg tablet Take 1 tablet twice a day by oral route as directed for 30 days. 06/02 completed Not Available Not Available Not Available glipizide ER 10 mg tablet, extended release 24 hr active Not Available Not Available Not Available promethazin e 12.5 mg tablet Take 1 tablet 4 times a day by oral route as directed for 30 days. 09/03 completed Not Available Not Available Not Available prednisone 20 mg tablet active Not Available Not Available Not Available metolazone 5 mg tablet active Not Available Not Available Not Available clopidogrel 75 mg tablet Take 1 tablet every day by oral route. active Not Available Not Available No t Available tramadol 50 mg tablet 50 mg by oral route. 03/14 completed Not Available Not Available Not Available acetaminoph en 500 mg tablet 1000 mg by oral route. 03/14 completed Not Available Not Available Not Available Percocet 10 mg-325 mg tablet Take 1 tablet by oral route. 03/20 completed Not Available Not Available Not Available meclizine 25 mg tablet Take 25 mg by oral route. 06/02 completed Not Available Not Available Not Available simvastatin 20 mg tablet 20 mg by oral route. active Not Available Not Available No t Available IBU 400 mg tablet 400 mg by oral route. 03/14 completed Not Available Not Available Not Available lisinopril 10 mg tablet Take 10 mg by oral route. 09/03 completed Not Available Not Available Not Available allopurinol 300 mg tablet Take 1 tablet every day by oral route as directed for 30 days. 06/02 completed Not Available Not Available Not Available lisinopril 5 mg tablet active Not Available Not Available Not Available sodium chloride 0.9 % intravenous solution 1000 mL by intraven. route. 03/14 completed Not Available Not Available Not Available metoprolol succinate ER 25 mg tablet,exte nded release 24 hr Take 1 tablet every day by oral route. active Not Available Not Available No t Available albuterol sulfate HFA 90 mcg/actuati on aerosol inhaler active Not Available Not Available Not Available ondansetron 4 mg disintegrat ing tablet active Not Available Not Available N ot Available doxycycline hyclate 100 mg tablet active Not Available Not Available No t Available glipizide 5 mg tablet 10 mg by oral route. active Not Available Not Available No t Available enoxaparin 40 mg/0.4 mL subcutaneou s syringe 40 mg by sub-q route. 03/14 completed Not Available Not Available Not Available dextrose 50 % in water (D50W) intravenous syringe 25 mL by intraven. route. 03/14 completed Not Available Not Available Not Available fentanyl (PF) 50 mcg/mL injection syringe 50 microgram s by injection route. 03/14 completed Not Available Not Available Not Available Vitamin D3 16934 active Not Available Not Av ailable Not Available ondansetron HCl (PF) 4 mg/2 mL injection solution 4 mg by injection route. 03/11 completed Not Available Not Available Not Available BD PosiFlush Normal Saline 0.9 % injection syringe 10 mL by injection route. 03/14 completed Not Available Not Available Not Available Humalog KwikPen (U-100) Insulin 100 unit/mL subcutaneou s Inject 0 unts by sub-q route. 06/02 completed Not Available Not Available Not Available HealthyLax 17 gram oral powder packet 17 g by oral route. 03/14 completed Not Available Not Available Not Available midazolam (PF) 1 mg/mL injection solution 5 mg by injection route. 03/14 completed Not Available Not Available Not Available morphine 2 mg/mL intravenous syringe 2 mg by intraven. route. 03/14 completed Not Available Not Available Not Available morphine 4 mg/mL intravenous syringe 4 mg by intraven. route. 03/11 completed Not Available Not Available Not Available Adult Aspirin Regimen 81 mg tablet,jody yed release Take 1 tablet every day by oral route. 2023 active Not Available Not Available Not Avai lable Vitals Date Recorded Body height Body mass index (BMI) Body weight Body temperature Oxygen saturation Oxygen saturation in Arterial blood by Pulse oximetry Heart rate Respiratory rate Systolic And Diastolic Provider Name and Address Organization Details Last Updated DateTime 5 157.48 cm 37.5 kg/m2 60213.7 2 g 97.4 [degF] 93 % 93 % 112 /min 20 /min 164/72 mm[Hg] Farhana Gilliam [place] - [facility] & [place] 5 09:29:54 Date Recorded Body weight Oxygen saturation Oxygen saturation in Arterial blood by Pulse oximetry Body temperature Heart rate Respiratory rate Systolic And Diastolic Provider Name and Address Organization Details Last Updated DateTime 5 40063.5 1 g 95 % 95 % 98.3 [degF] 102 /min 18 /min 143/60 mm[Hg] Amy Chan [place] - [facility] & [place] 5 10:01:58 Date Recorded Body height Body mass index (BMI) Body weight Body temperature Oxygen saturation Oxygen saturation in Arterial blood by Pulse oximetry Heart rate Systolic And Diastolic Provider Name and Address Organization Details Last Updated DateTime 4 157.48 cm 38.6 kg/m2 82957.0 7 g 97.9 [degF] 90 % 90 % 100 /min 117/57 mm[Hg] Amy SEN [facility] & [place] 4 14:31:03 Date Recorded Body height Body mass index (BMI) Body weight Body temperature Oxygen saturation Oxygen saturation in Arterial blood by Pulse oximetry Heart rate Systolic And Diastolic Provider Name and Address Organization Details Last Updated DateTime 4 157.48 cm 38 kg/m2 92493.1 4 g 97.1 [degF] 93 % 93 % 108 /min 136/67 mm[Hg] Amy SEN [facility] & [place] 4 09:36:53 Date Recorded Body height Body mass index (BMI) Body weight Body temperature Oxygen saturation Oxygen saturation in Arterial blood by Pulse oximetry Heart rate Respiratory rate Systolic And Diastolic Provider Name and Address Organization Details Last Updated DateTime 4 157.48 cm 37.8 kg/m2 41274.1 8 g 97.2 [degF] 96 % 96 % 85 /min 18 /min 139/70 mm[Hg] Farhana Gilliam [facility] & [place] 4 09:59:45 Social History Question Answer Notes LastModified by Organizat ion Details LastModified Time Tobacco Smoking Status [facility] [place] 03/20/2023 10:32:44 What Is Your Level Of Caffeine Consumption? None [email or web address] Information not available 03/20/2023 When Did You Quit Smoking? 16+yearssinc elastcigaret te [email or web address] Information not available 03/20/2023 What Was The Date Of Your Most Recent Tobacco Screening? 06/03/2023 [email or web address] Information not available 06/03/2023 At What Age Did You Start Smoking Tobacco? 22 [email or web address] Information not available 03/20/2023 Has Tobacco Cessation Counseling Been Provided? No [email or web address] Information not available 03/20/2023 How Many Years Have You Smoked Tobacco? 23 [email or web address] Information not available 03/20/2023 Sex: Unknown Functional Status Question Answer Note LastModified by Organizat ion Details LastModified Time Do you use any illicit or recreational drugs? No Information not available 03/20/2023 Do you or have you ever used any other forms of tobacco or nicotine? No [email or web address] Information not available 03/20/2023 What is your level of alcohol consumption? None Information not available 03/20/2023 Mental Status None recorded. Family History Relationship Description Onset Age of this Age Resolved Age Notes LastModified by Organization Details LastModified Time Father Carcinoma of prostate [email or web address] Not available 06/02 13:57:10 Mother Malignant neoplasm of female breast [email or web address] Not available 06/02 13:57:19 Sister Malignant neoplasm of female breast BC twice .... chemo since 2018, under [facility] [email or web address] Not available 06/03/2023 13:57:59 Sister Malignant tumor of thyroid gland [email or web address] Not available 06/02 13:58:23 Sister Primary malignant neoplasm of both ovaries [email or web address] Not available 13:58:50 Medical History No medical history recorded. Gynecological HistoryNo gynecological history recorded. Obstetrics History GPAL:G 0 P 0 0 0 0 Immunizations Vaccine Type Date Status Note Provider Nam e and Address Organization Details Recorded Time Influenza, high-dose, quadrivalent, PF 02/26/2023 completed Amy short [place] - [facility] & [place] 04/12/2023 08:52:49 COVID-19, mRNA, LNP-S, PF, 100 mcg/0.5mL dose or 50 mcg/0.25mL dose 04/27/2020 selene short [place] - [facility] & [place] 04/12/2023 08:52:49 COVID-19, mRNA, LNP-S, PF, 100 mcg/0.5mL dose or 50 mcg/0.25mL dose 05/25/2020 selene short [place] - [facility] & [place] 04/12/2023 08:52:49 COVID-19, mRNA, LNP-S, PF, 100 mcg/0.5mL dose or 50 mcg/0.25mL dose 12/28/2020 selene short [place] - [facility] & [place] 04/12/2023 08:52:49 Past Encounters Encounter ID Performer Location Encounter Start Date Encounter Closed Date Diagnosis/Indication Diagnosis SNOMED-CT Code Diagnosis ICD10 Code Diagnosis Note [id number] Enrique Lou MD [facility]olog [facility] [address] [facility] [address] [place] [address] 03/20/2023 10:15:09 03/20/2023 11:40:57 Follicular lymphoma [id number] C82.93 CT scan of the abdomen pelvis with contrast with findings of mesenteric periaortic pericaval adenopathy noted. Lymph nodes measuring up to 2 cm were seen. Ill-define d hypodense mesenteric mass that is 8.4 x 11.0 x 10.0 cm likely representi ng celine conglomera te. This is inferior to the pancreas and appears to encase the superior mesenteric artery. Postoperat dudley changes noted from previous lap band. Spleen is enlarged at 13.6 cm. Bilateral renal cyst present. Biopsy performed of lymph node mass on March 14, 2023. Findings follicular lymphoma that is low grade (1/2). Flow cytometry positive for CD10. Cells positive for CD20 as well as CD19. Negative for CD 5 and negative for CD 38. Biopsy site was retroperit rivera lymph node. Currently patient has at least stage II follicular lymphoma. Due to vascular encasement and bulky disease would recommend considerat ion for chemothera py. Would recommend PET scan for full staging. Considerat ion of rituximab single agent therapy weekly for 4 weeks verses bendamusti ne with rituximab. Patient's performanc e status ECOG 1 and considerat ion for treatment with rituximab only. Will follow-up PET scan and arrange rituximab therapy likely followed by rituximab maintenanc e depending on response. Anemia 070406388 D64.9 Labs during hospital stay in late February 2023 with findings of iron deficiency anemia. Iron infusions plan today. 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 Findings follicular lymphoma that is low grade (1/2). Flow cytometry positive for CD10. Cells positive for CD20 as well as CD19. Negative for CD 5 and negative for CD 38. Biopsy site was retroperit rivera lymph node. [id number] Enrique Lou MD [facility] and Hematolog [facility] [address] [facility] [address] [place] [address] 04/12/2023 08:44:32 04/12/2023 09:53:23 Follicular lymphoma [id number] C82.93 CT scan of the abdomen pelvis with contrast with findings of mesenteric periaortic pericaval adenopathy noted. Lymph nodes measuring up to 2 cm were seen. Ill-define d hypodense mesenteric mass that is 8.4 x 11.0 x 10.0 cm likely representi ng celine conglomera te. This is inferior to the pancreas and appears to encase the superior mesenteric artery. Postoperat dudley changes noted from previous lap band. Spleen is enlarged at 13.6 cm. Bilateral renal cyst present. Biopsy performed of lymph node mass on March 14, 2023. Findings follicular lymphoma that is low grade (1/2). Flow cytometry positive for CD10. Cells positive for CD20 as well as CD19. Negative for CD 5 and negative for CD 38. Biopsy site was retroperit rivera lymph node. Currently patient has at least stage II follicular lymphoma. Due to vascular encasement and bulky disease would recommend considerat ion for chemothera py. Patient returns on April 12, 2023 for week 1 of rituximab. Chemothera py education performed. Will follow-up for toxicity. Will follow-up for any difficulty with infusion. After 4 weeks of therapy will assess response and hopefully proceed with maintenanc e therapy. Anemia 318420237 D64.9 Labs during hospital stay in late February 2023 with findings of iron deficiency anemia. Iron infusions plan today. Will follow-up Follicular low grade B-cell lymphoma [id number] C82.80 Biopsy performed of lymph node mass on March 14, 2023. Findings follicular lymphoma that is low grade (1/2). Flow cytometry positive for CD10. Cells positive for CD20 as well as CD19. Negative for CD 5 and negative for CD 38. Biopsy site was retroperit rivera lymph node. Antineopla stic chemotherapy regimen [id number] Z51.11 Week 1 of rituximab on April 12, 2023. Chemothera py education performed. B-cell lym phoma (clinical) [id number] C85.89 [id number] Enrique Lou MD [facility] Oncology and Hematolog [facility] [address] [facility] [facility] [address] [place] [address] 04/19/2023 08:54:42 04/19/2023 09:34:24 Follicular lymphoma [id number] C82.93 CT scan of the abdomen pelvis with contrast with findings of mesenteric periaortic pericaval adenopathy noted. Lymph nodes measuring up to 2 cm were seen. Ill-define d hypodense mesenteric mass that is 8.4 x 11.0 x 10.0 cm likely representi ng celine conglomera te. This is inferior to the pancreas and appears to encase the superior mesenteric artery. Postoperat dudley changes noted from previous lap band. Spleen is enlarged at 13.6 cm. Bilateral renal cyst present. Biopsy performed of lymph node mass on March 14, 2023. Findings follicular lymphoma that is low grade (1/2). Flow cytometry positive for CD10. Cells positive for CD20 as well as CD19. Negative for CD 5 and negative for CD 38. Biopsy site was retroperit rivera lymph node. Currently patient has at least stage II follicular lymphoma. Due to vascular encasement and bulky disease would recommend considerat ion for chemothera py. Patient returns on April 12, 2023 for week 1 of rituximab. Chemothera py education performed. Patient had mild infusion reaction with rigors. Mild increase in nausea. Patient treated with Demerol as well as Solu-Medro l. Will provide Solu-Medro l premed today with week 2 of therapy. Patient returns on April 19, 2023. Week 2 of therapy today. Will follow-up for toxicity. Repeating labs. Labs on April 12, 2023 with slightly elevated uric acid at 6.6. LDH slightly elevated at 200. Will follow-up response. Anemia 025436044 D64.9 Labs during hospital stay in late February 2023 with findings of iron deficiency anemia. Iron infusions plan today. Will follow-up Follicular low grade B-cell lymphoma [id number] C82.80 Biopsy performed of lymph node mass on March 14, 2023. Findings follicular lymphoma that is low grade (1/2). Flow cytometry positive for CD10. Cells positive for CD20 as well as CD19. Negative for CD 5 and negative for CD 38. Biopsy site was retroperit rivera lymph node. Antineopla stic chemotherapy regimen 307710055 Z51.11 Week 1 of rituximab on April 12, 2023. Chemothera py education performed. Week 2 of rituximab on April 19, 2023. Nausea 974379867 R11.0 As needed Zofran and Phenergan prescribed . Will follow-up B-cell lym phoma (clinical) [id number] C85.89 [id number] Enrique Lou MD [facility] [address] [place] [address] 04/26/2023 09:05:09 04/26/2023 09:29:02 Follicular lymphoma [id number] C82.93 CT scan of the abdomen pelvis with contrast with findings of mesenteric periaortic pericaval adenopathy noted. Lymph nodes measuring up to 2 cm were seen. Ill-define d hypodense mesenteric mass that is 8.4 x 11.0 x 10.0 cm likely representi ng celine conglomera te. This is inferior to the pancreas and appears to encase the superior mesenteric artery. Postoperat dudley changes noted from previous lap band. Spleen is enlarged at 13.6 cm. Bilateral renal cyst present. Biopsy performed of lymph node mass on March 14, 2023. Findings follicular lymphoma that is low grade (1/2). Flow cytometry positive for CD10. Cells positive for CD20 as well as CD19. Negative for CD 5 and negative for CD 38. Biopsy site was retroperit rivera lymph node. Currently patient has at least stage II follicular lymphoma. Due to vascular encasement and bulky disease would recommend considerat ion for chemothera py. Patient returns on April 12, 2023 for week 1 of rituximab. Chemothera py education performed. Labs on April 19, 2023 with white blood count 9.2. Red blood count 4.7. Hemoglobin 13.4. Platelet count 070333. Absolute neutrophil count 6.8. Uric acid in the normal range 3.8. LDH 256. Patient returns on April 26, 2023 for week 3 of rituximab. Will continue with current therapy. Following dose 4, will arrange repeat imaging 4-6 weeks after week 4 and will assess for maintenanc e therapy. Anemia [id number] D64.9 Labs during hospital stay in late February 2023 with findings of iron deficiency anemia. Iron infusions plan today. Will follow-up Follicular low grade B-cell lymphoma [id number] C82.80 Biopsy performed of lymph node mass on March 14, 2023. Findings follicular lymphoma that is low grade (1/2). Flow cytometry positive for CD10. Cells positive for CD20 as well as CD19. Negative for CD 5 and negative for CD 38. Biopsy site was retroperit rivera lymph node. Antineopla stic chemotherapy regimen [id number] Z51.11 Week 1 of rituximab on April 12, 2023. Chemothera py education performed. Week 2 of rituximab on April 19, 2023.Week 3 of rituximab on April 26, 2023. Nausea [id number] R11.0 As needed Zofran and Phenergan prescribed . Will follow-up [id number] Wilian Olsen PA-C [facility] [address] [place] [address] 05/03/2023 09:00:04 05/03/2023 10:26:31 Follicular lymphoma [id number] C82.93 CT scan of the abdomen pelvis with contrast with findings of mesenteric periaortic pericaval adenopathy noted. Lymph nodes measuring up to 2 cm were seen. Ill-define d hypodense mesenteric mass that is 8.4 x 11.0 x 10.0 cm likely representi ng celine conglomera te. This is inferior to the pancreas and appears to encase the superior mesenteric artery. Postoperat dudley changes noted from previous lap band. Spleen is enlarged at 13.6 cm. Bilateral renal cyst present. Biopsy performed of lymph node mass on March 14, 2023. Findings follicular lymphoma that is low grade (1/2). Flow cytometry positive for CD10. Cells positive for CD20 as well as CD19. Negative for CD 5 and negative for CD 38. Biopsy site was retroperit rivera lymph node. Currently patient has at least stage II follicular lymphoma. Due to vascular encasement and bulky disease would recommend considerat ion for chemothera py. Patient returns on April 12, 2023 for week 1 of rituximab. Chemothera py education performed. Labs on April 19, 2023 with white blood count 9.2. Red blood count 4.7. Hemoglobin 13.4. Platelet count 066706. Absolute neutrophil count 6.8. Uric acid in the normal range 3.8. LDH 256. Patient returns on May 03, 2023 for week 4 of rituximab. Will complete current therapy today. She had some diarrhea with nausea and vomiting this week. Discussed starting Imodium along with Zofran. Will arrange repeat imaging 4-6 weeks and will assess for maintenanc e therapy. Anemia [id number] D64.9 Labs during hospital stay in late February 2023 with findings of iron deficiency anemia. Iron infusions plan today. Will follow-up Follicular low grade B-cell lymphoma [id number] C82.80 Biopsy performed of lymph node mass on March 14, 2023. Findings follicular lymphoma that is low grade (1/2). Flow cytometry positive for CD10. Cells positive for CD20 as well as CD19. Negative for CD 5 and negative for CD 38. Biopsy site was retroperit rivera lymph node. Antineopla stic chemotherapy regimen [id number] Z51.11 Week 1 of rituximab on April 12, 2023. Chemothera py education performed. Week 2 of rituximab on April 19, 2023.Week 3 of rituximab on April 26, 2023.Week 4 of rituximab on May 03, 2023. Nausea [id number] R11.0 As needed Zofran and Phenergan prescribed . Will follow-up B-cell lym phoma (clinical) [id number] C82.89 [id number] Enrique Lou MD [facility] [address] [place] [address] 06/03/2023 13:38:35 06/03/2023 15:26:54 Follicular lymphoma [id number] C82.93 CT scan of the abdomen pelvis with contrast with findings of mesenteric periaortic pericaval adenopathy noted. Lymph nodes measuring up to 2 cm were seen. Ill-define d hypodense mesenteric mass that is 8.4 x 11.0 x 10.0 cm likely representi ng celine conglomera te. This is inferior to the pancreas and appears to encase the superior mesenteric artery. Postoperat dudley changes noted from previous lap band. Spleen is enlarged at 13.6 cm. Bilateral renal cyst present. Biopsy performed of lymph node mass on March 14, 2023. Findings follicular lymphoma that is low grade (1/2). Flow cytometry positive for CD10. Cells positive for CD20 as well as CD19. Negative for CD 5 and negative for CD 38. Biopsy site was retroperit rivera lymph node. Currently patient has at least stage II follicular lymphoma. Due to vascular encasement and bulky disease would recommend considerat ion for chemothera py. Patient returned on April 12, 2023 for week 1 of rituximab. Labs on May 03, 2023 with white blood cell count 7.9. Red blood count 4.7. Hemoglobin 13.6 hematocrit 41.2. Platelet count 820627. Patient completed 4 weeks of rituximab therapy. CT scan of the chest abdomen and pelvis performed on May 24, 2023. No mediastina l or hilar adenopathy . Axillary lymph nodes not pathologic ally enlarged. Imaging of the abdomen with liver unremarkab le. No splenomega ly. Lymph node enlargemen t in the retroperit rivera and mesenteric nodes. 2.2 x 1.1 cm in the left periaortic region. Previously 2.3 x 1.5 cm and 1.6 x 1.0 cm left lower periaortic lymph node 1.9 x 1.4 cm. Lymph node conglomera te in the mesentery 12.0 x 3.7 cm. Previously 12.8 x 4.2 cm. Patient returns on June 03, 2023. Response to single agent rituximab therapy. Would continue with every 3 month maintenanc e rituximab for 2 years. Would likely repeat imaging in 4-6 months. Patient starting maintenanc e rituximab in mid to late June 2023. Anemia [id number] D64.9 Labs during hospital stay in late February 2023 with findings of iron deficiency anemia. Iron infusions plan today. 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 Findings follicular lymphoma that is low grade (1/2). Flow cytometry positive for CD10. Cells positive for CD20 as well as CD19. Negative for CD 5 and negative for CD 38. Biopsy site was retroperit rivera lymph node. Antineopla stic chemotherapy regimen [id number] Z51.11 Week 1 of rituximab on April 12, 2023. Chemothera py education performed. Week 2 of rituximab on April 19, 2023.Week 3 of rituximab on April 26, 2023.Week 4 of rituximab on May 03, 2023. Nausea [id number] R11.0 As needed Zofran and Phenergan prescribed . Will follow-up [id number] Enrique Lou MD [facility] [address] [place] [address] 07/24/2023 14:19:03 07/24/2023 15:05:00 Follicular lymphoma [id number] C82.93 CT scan of the abdomen pelvis with contrast with findings of mesenteric periaortic pericaval adenopathy noted. Lymph nodes measuring up to 2 cm were seen. Ill-define d hypodense mesenteric mass that is 8.4 x 11.0 x 10.0 cm likely representi ng celine conglomera te. This is inferior to the pancreas and appears to encase the superior mesenteric artery. Postoperat dudley changes noted from previous lap band. Spleen is enlarged at 13.6 cm. Bilateral renal cyst present. Biopsy performed of lymph node mass on March 14, 2023. Findings follicular lymphoma that is low grade (1/2). Flow cytometry positive for CD10. Cells positive for CD20 as well as CD19. Negative for CD 5 and negative for CD 38. Biopsy site was retroperit rivera lymph node. Currently patient has at least stage II follicular lymphoma. Due to vascular encasement and bulky disease would recommend considerat ion for chemothera py. Patient returned on April 12, 2023 for week 1 of rituximab. Labs on May 03, 2023 with white blood cell count 7.9. Red blood count 4.7. Hemoglobin 13.6 hematocrit 41.2. Platelet count 758285. Patient completed 4 weeks of rituximab therapy. CT scan of the chest abdomen and pelvis performed on May 24, 2023. No mediastina l or hilar adenopathy . Axillary lymph nodes not pathologic ally enlarged. Imaging of the abdomen with liver unremarkab le. No splenomega ly. Lymph node enlargemen t in the retroperit rivera and mesenteric nodes. 2.2 x 1.1 cm in the left periaortic region. Previously 2.3 x 1.5 cm and 1.6 x 1.0 cm left lower periaortic lymph node 1.9 x 1.4 cm. Lymph node conglomera te in the mesentery 12.0 x 3.7 cm. Previously 12.8 x 4.2 cm. Patient returns on June 03, 2023. Response to single agent rituximab therapy. Would continue with every 3 month maintenanc e rituximab for 2 years. Would likely repeat imaging in 4-6 months. Patient was due to start maintenanc e rituximab with dosing every 3 months in June 2023. Patient neeta gu suffered a STEMI and had 5 cardiac stents placed. Patient returns for evaluation on July 24, 2023. Discussion maintenanc e rituximab verses observatio n. If wishes to proceed with maintenanc e rituximab would consider trying medication for her. Currently patient is recovering from cardiac stent placement. Would favor repeat CT scan in 4-6 weeks which would be late August 2023. If lymph nodes are still stable can reassess how patient is feeling and observatio n versus potential maintenanc e rituximab. Will follow-up Anemia [id number] D64.9 Labs during hospital stay in late February 2023 with findings of iron deficiency anemia. Iron infusions plan today. Will follow-up Follicular low grade B-cell lymphoma [id number] C82.80 Biopsy performed of lymph node mass on March 14, 2023. Findings follicular lymphoma that is low grade (1/2). Flow cytometry positive for CD10. Cells positive for CD20 as well as CD19. Negative for CD 5 and negative for CD 38. Biopsy site was retroperit rivera lymph node. Antineopla stic chemotherapy regimen [id number] Z51.11 Week 1 of rituximab on April 12, 2023. Chemothera py education performed. Week 2 of rituximab on April 19, 2023.Week 3 of rituximab on April 26, 2023.Week 4 of rituximab on May 03, 2023. Nausea [id number] R11.0 As needed Zofran and Phenergan prescribed . Will follow-up Coronary arteriosclerosis [id number] I25.10 Patient recently hospitaliz ed in June 2023 following STEMI. Patient had cardiac stents placed. Follows with Cardiology . Chronic hy poxemic respiratory failure [id number] J96.11 Patient with low oxygen saturation of 85% upon clinic arrival. Oxygen saturation 85% at rest. Patient placed on oxygen supplement ation with improvemen t in oxygen saturation . During walking test patient desaturate d to 89% on room air. Improvemen t with oxygen supplement ation. [id number] Wilian Olsen PA-C [facility] [address] [place] [address] 09/04/2023 14:09:39 09/04/2023 15:21:56 Follicular lymphoma [id number] C82.93 CT scan of the abdomen pelvis with contrast with findings of mesenteric periaortic pericaval adenopathy noted. Lymph nodes measuring up to 2 cm were seen. Ill-define d hypodense mesenteric mass that is 8.4 x 11.0 x 10.0 cm likely representi ng celine conglomera te. This is inferior to the pancreas and appears to encase the superior mesenteric artery. Postoperat dudley changes noted from previous lap band. Spleen is enlarged at 13.6 cm. Bilateral renal cyst present. Biopsy performed of lymph node mass on March 14, 2023. Findings follicular lymphoma that is low grade (1/2). Flow cytometry positive for CD10. Cells positive for CD20 as well as CD19. Negative for CD 5 and negative for CD 38. Biopsy site was retroperit rivera lymph node. Currently patient has at least stage II follicular lymphoma. Due to vascular encasement and bulky disease would recommend considerat ion for chemothera py. Patient returned on April 12, 2023 for week 1 of rituximab. Labs on May 03, 2023 with white blood cell count 7.9. Red blood count 4.7. Hemoglobin 13.6 hematocrit 41.2. Platelet count 388021. Patient completed 4 weeks of rituximab therapy. CT scan of the chest abdomen and pelvis performed on May 24, 2023. No mediastina l or hilar adenopathy . Axillary lymph nodes not pathologic ally enlarged. Imaging of the abdomen with liver unremarkab le. No splenomega ly. Lymph node enlargemen t in the retroperit rivera and mesenteric nodes. 2.2 x 1.1 cm in the left periaortic region. Previously 2.3 x 1.5 cm and 1.6 x 1.0 cm left lower periaortic lymph node 1.9 x 1.4 cm. Lymph node conglomera te in the mesentery 12.0 x 3.7 cm. Previously 12.8 x 4.2 cm. Patient returns on June 03, 2023. Response to single agent rituximab therapy. Would continue with every 3 month maintenanc e rituximab for 2 years. Would likely repeat imaging in 4-6 months. Patient was due to start maintenanc e rituximab with dosing every 3 months in June 2023. Patient neeta gu suffered a STEMI and had 5 cardiac stents placed. Patient returns for evaluation on July 24, 2023. Discussion maintenanc e rituximab verses observatio n. If wishes to proceed with maintenanc e rituximab would consider trying medication for her. Currently patient is recovering from cardiac stent placement. Would favor repeat CT scan in 4-6 weeks which would be late August 2023. If lymph nodes are still stable can reassess how patient is feeling and observatio n versus potential maintenanc e rituximab. CT scan of the chest abdomen pelvis performed on August 28, 2023 with stable findings. Would continue with current therapy. Improvemen t in previously seen inflammato ry process in the lungs. Patient returns for follow-up on September 04, 2023. She is feeling much better. Patient would like to proceed with rituximab maintenanc e. Will schedule. Will follow-up labs on day 1 of rituximab. Anemia [id number] D64.9 Labs during hospital stay in late February 2023 with findings of iron deficiency anemia. Iron infusions plan today. Will follow-up Follicular low grade B-cell lymphoma [id number] C82.80 Biopsy performed of lymph node mass on March 14, 2023. Findings follicular lymphoma that is low grade (1/2). Flow cytometry positive for CD10. Cells positive for CD20 as well as CD19. Negative for CD 5 and negative for CD 38. Biopsy site was retroperit rivera lymph node. Antineopla stic chemotherapy regimen [id number] Z51.11 Week 1 of rituximab on April 12, 2023. Chemothera py education performed. Week 2 of rituximab on April 19, 2023.Week 3 of rituximab on April 26, 2023.Week 4 of rituximab on May 03, 2023. Nausea [id number] R11.0 As needed Zofran and Phenergan prescribed . Will follow-up Coronary arteriosclerosis [id number] I25.10 Patient recently hospitaliz ed in June 2023 following STEMI. Patient had cardiac stents placed. Follows with Cardiology . Chronic hy poxemic respiratory failure [id number] J96.11 Patient with low oxygen saturation of 85% upon clinic arrival. Oxygen saturation 85% at rest. Patient placed on oxygen supplement ation with improvemen t in oxygen saturation . During walking test patient desaturate d to 89% on room air. Improvemen t with oxygen supplement ation. [id number] Wilian Olsen PA-C [facility] [address] [facility] [place] [address] 09/11/2023 09:30:15 09/11/2023 09:57:11 Follicular lymphoma [id number] C82.93 CT scan of the abdomen pelvis with contrast with findings of mesenteric periaortic pericaval adenopathy noted. Lymph nodes measuring up to 2 cm were seen. Ill-define d hypodense mesenteric mass that is 8.4 x 11.0 x 10.0 cm likely representi ng celine conglomera te. This is inferior to the pancreas and appears to encase the superior mesenteric artery. Postoperat dudley changes noted from previous lap band. Spleen is enlarged at 13.6 cm. Bilateral renal cyst present. Biopsy performed of lymph node mass on March 14, 2023. Findings follicular lymphoma that is low grade (1/2). Flow cytometry positive for CD10. Cells positive for CD20 as well as CD19. Negative for CD 5 and negative for CD 38. Biopsy site was retroperit rivera lymph node. Currently patient has at least stage II follicular lymphoma. Due to vascular encasement and bulky disease would recommend considerat ion for chemothera py. Patient returned on April 12, 2023 for week 1 of rituximab. Labs on May 03, 2023 with white blood cell count 7.9. Red blood count 4.7. Hemoglobin 13.6 hematocrit 41.2. Platelet count 837907. Patient completed 4 weeks of rituximab therapy. CT scan of the chest abdomen and pelvis performed on May 24, 2023. No mediastina l or hilar adenopathy . Axillary lymph nodes not pathologic ally enlarged. Imaging of the abdomen with liver unremarkab le. No splenomega ly. Lymph node enlargemen t in the retroperit rivera and mesenteric nodes. 2.2 x 1.1 cm in the left periaortic region. Previously 2.3 x 1.5 cm and 1.6 x 1.0 cm left lower periaortic lymph node 1.9 x 1.4 cm. Lymph node conglomera te in the mesentery 12.0 x 3.7 cm. Previously 12.8 x 4.2 cm. Patient returns on June 03, 2023. Response to single agent rituximab therapy. Would continue with every 3 month maintenanc e rituximab for 2 years. Would likely repeat imaging in 4-6 months. Patient was due to start maintenanc e rituximab with dosing every 3 months in June 2023. Patient neeta gu suffered a STEMI and had 5 cardiac stents placed. Patient returns for evaluation on July 24, 2023. Discussion maintenanc e rituximab verses observatio n. If wishes to proceed with maintenanc e rituximab would consider trying medication for her. Currently patient is recovering from cardiac stent placement. Would favor repeat CT scan in 4-6 weeks which would be late August 2023. If lymph nodes are still stable can reassess how patient is feeling and observatio n versus potential maintenanc e rituximab. CT scan of the chest abdomen pelvis performed on August 28, 2023 with stable findings. Would continue with current therapy. Improvemen t in previously seen inflammato ry process in the lungs. Patient returns for follow-up on September 11, 2023. She is feeling much better. Patient mentioned she has had trouble with insomnia for years. Discussed trying melatonin and sleep hygiene. Will follow-up. Patient would like to proceed with rituximab maintenanc e. Will start cycle one of rituximab maintenanc e today. Will follow-up labs. Anemia [id number] D64.9 Labs during hospital stay in late February 2023 with findings of iron deficiency anemia. Iron infusions plan today. Will follow-up Follicular low grade B-cell lymphoma [id number] C82.80 Biopsy performed of lymph node mass on March 14, 2023. Findings follicular lymphoma that is low grade (1/2). Flow cytometry positive for CD10. Cells positive for CD20 as well as CD19. Negative for CD 5 and negative for CD 38. Biopsy site was retroperit rivera lymph node. Antineopla stic chemotherapy regimen [id number] Z51.11 Week 1 of rituximab on April 12, 2023. Chemothera py education performed. Week 2 of rituximab on April 19, 2023.Week 3 of rituximab on April 26, 2023.Week 4 of rituximab on May 03, 2023. Cycle 1 of rituximab maintenanc e on September 11, 2023. Nausea [id number] R11.0 As needed Zofran and Phenergan prescribed . Will follow-up Coronary arteriosclerosis [id number] I25.10 Patient recently hospitaliz ed in June 2023 following STEMI. Patient had cardiac stents placed. Follows with Cardiology . Chronic hy poxemic respiratory failure [id number] J96.11 Patient with low oxygen saturation of 85% upon clinic arrival. Oxygen saturation 85% at rest. Patient placed on oxygen supplement ation with improvemen t in oxygen saturation . During walking test patient desaturate d to 89% on room air. Improvemen t with oxygen supplement ation. [id number] Wilian Olsen PA-C [facility] [address] [place] [address] 12/03/2023 09:47:40 12/03/2023 10:16:58 Follicular lymphoma [id number] C82.93 CT scan of the abdomen pelvis with contrast with findings of mesenteric periaortic pericaval adenopathy noted. Lymph nodes measuring up to 2 cm were seen. Ill-define d hypodense mesenteric mass that is 8.4 x 11.0 x 10.0 cm likely representi ng celine conglomera te. This is inferior to the pancreas and appears to encase the superior mesenteric artery. Postoperat dudley changes noted from previous lap band. Spleen is enlarged at 13.6 cm. Bilateral renal cyst present. Biopsy performed of lymph node mass on March 14, 2023. Findings follicular lymphoma that is low grade (1/2). Flow cytometry positive for CD10. Cells positive for CD20 as well as CD19. Negative for CD 5 and negative for CD 38. Biopsy site was retroperit rivera lymph node. Currently patient has at least stage II follicular lymphoma. Due to vascular encasement and bulky disease would recommend considerat ion for chemothera py. Patient returned on April 12, 2023 for week 1 of rituximab. Labs on May 03, 2023 with white blood cell count 7.9. Red blood count 4.7. Hemoglobin 13.6 hematocrit 41.2. Platelet count 744943. Patient completed 4 weeks of rituximab therapy. CT scan of the chest abdomen and pelvis performed on May 24, 2023. No mediastina l or hilar adenopathy . Axillary lymph nodes not pathologic ally enlarged. Imaging of the abdomen with liver unremarkab le. No splenomega ly. Lymph node enlargemen t in the retroperit rivera and mesenteric nodes. 2.2 x 1.1 cm in the left periaortic region. Previously 2.3 x 1.5 cm and 1.6 x 1.0 cm left lower periaortic lymph node 1.9 x 1.4 cm. Lymph node conglomera te in the mesentery 12.0 x 3.7 cm. Previously 12.8 x 4.2 cm. Patient returns on June 03, 2023. Response to single agent rituximab therapy. Would continue with every 3 month maintenanc e rituximab for 2 years. Would likely repeat imaging in 4-6 months. Patient was due to start maintenanc e rituximab with dosing every 3 months in June 2023. Patient neeta gu suffered a STEMI and had 5 cardiac stents placed. Patient returns for evaluation on July 24, 2023. Discussion maintenanc e rituximab verses observatio n. If wishes to proceed with maintenanc e rituximab would consider trying medication for her. Currently patient is recovering from cardiac stent placement. Would favor repeat CT scan in 4-6 weeks which would be late August 2023. If lymph nodes are still stable can reassess how patient is feeling and observatio n versus potential maintenanc e rituximab. CT scan of the chest abdomen pelvis performed on August 28, 2023 with stable findings. Would continue with current therapy. Improvemen t in previously seen inflammato ry process in the lungs. Patient returns for follow-up on December 03, 2023. She is feeling well. Patient will receive cycle two of rituximab maintenanc e today. Will follow-up labs. Anemia [id number] D64.9 Labs during hospital stay in late February 2023 with findings of iron deficiency anemia. Iron infusions plan today. Will follow-up Follicular low grade B-cell lymphoma [id number] C82.80 Biopsy performed of lymph node mass on March 14, 2023. Findings follicular lymphoma that is low grade (1/2). Flow cytometry positive for CD10. Cells positive for CD20 as well as CD19. Negative for CD 5 and negative for CD 38. Biopsy site was retroperit rivera lymph node. Antineopla stic chemotherapy regimen [id number] Z51.11 Week 1 of rituximab on April 12, 2023. Chemothera py education performed. Week 2 of rituximab on April 19, 2023.Week 3 of rituximab on April 26, 2023.Week 4 of rituximab on May 03, 2023. Cycle 1 of rituximab maintenanc e on September 11, 2023.Cycle 2 of rituximab maintenanc e on December 03, 2023. Nausea [id number] R11.0 As needed Zofran and Phenergan prescribed . Will follow-up Coronary arteriosclerosis [id number] I25.10 Patient recently hospitaliz ed in June 2023 following STEMI. Patient had cardiac stents placed. Follows with Cardiology . Chronic hy poxemic respiratory failure [id number] J96.11 Patient with low oxygen saturation of 85% upon clinic arrival. Oxygen saturation 85% at rest. Patient placed on oxygen supplement ation with improvemen t in oxygen saturation . During walking test patient desaturate d to 89% on room air. Improvemen t with oxygen supplement ation. Localized eruption of skin [id number] R21 Patient returns for follow-up on December 03, 2023. She does have nonpruriti c rash on her face that she has had for about 3 months. There are no papules or pustules. The skin is dry and red below her nose and around her mouth and chin. She is using clotrimazo le without much improvemen t. Will refer to Dermatolog y further evaluation . [id number] Wilian Olsen PA-C [facility] [address] [facility] [address] [place] [address] 06/02/2024 09:27:05 06/02/2024 09:44:25 Follicular lymphoma [id number] C82.93 CT scan of the abdomen pelvis with contrast with findings of mesenteric periaortic pericaval adenopathy noted. Lymph nodes measuring up to 2 cm were seen. Ill-define d hypodense mesenteric mass that is 8.4 x 11.0 x 10.0 cm likely representi ng celine conglomera te. This is inferior to the pancreas and appears to encase the superior mesenteric artery. Postoperat dudley changes noted from previous lap band. Spleen is enlarged at 13.6 cm. Bilateral renal cyst present. Biopsy performed of lymph node mass on March 14, 2023. Findings follicular lymphoma that is low grade (1/2). Flow cytometry positive for CD10. Cells positive for CD20 as well as CD19. Negative for CD 5 and negative for CD 38. Biopsy site was retroperit rivera lymph node. Currently patient has at least stage II follicular lymphoma. Due to vascular encasement and bulky disease would recommend considerat ion for chemothera py. Patient returned on April 12, 2023 for week 1 of rituximab. Labs on May 03, 2023 with white blood cell count 7.9. Red blood count 4.7. Hemoglobin 13.6 hematocrit 41.2. Platelet count [id number]. Patient completed 4 weeks of rituximab therapy. CT scan of the chest abdomen and pelvis performed on May 24, 2023. No mediastina l or hilar adenopathy . Axillary lymph nodes not pathologic ally enlarged. Imaging of the abdomen with liver unremarkab le. No splenomega ly. Lymph node enlargemen t in the retroperit rivera and mesenteric nodes. 2.2 x 1.1 cm in the left periaortic region. Previously 2.3 x 1.5 cm and 1.6 x 1.0 cm left lower periaortic lymph node 1.9 x 1.4 cm. Lymph node conglomera te in the mesentery 12.0 x 3.7 cm. Previously 12.8 x 4.2 cm. Patient returns on June 03, 2023. Response to single agent rituximab therapy. Would continue with every 3 month maintenanc e rituximab for 2 years. Would likely repeat imaging in 4-6 months. Patient was due to start maintenanc e rituximab with dosing every 3 months in June 2023. Patient neeta gu suffered a STEMI and had 5 cardiac stents placed. Patient returns for evaluation on July 24, 2023. Discussion maintenanc e rituximab verses observatio n. If wishes to proceed with maintenanc e rituximab would consider trying medication for her. Currently patient is recovering from cardiac stent placement. Would favor repeat CT scan in 4-6 weeks which would be late August 2023. If lymph nodes are still stable can reassess how patient is feeling and observatio n versus potential maintenanc e rituximab. CT scan of the chest abdomen pelvis performed on August 28, 2023 with stable findings. Would continue with current therapy. Improvemen t in previously seen inflammato ry process in the lungs. Patient returns for follow-up on June 02, 2024. Patient will receive cycle four of rituximab maintenanc e today. She is tolerating well. Will follow-up CBC and CMP prior chemothera py today to monitor for toxicity. She is due for follow up imaging. Will schedule scans. Follicular low grade B-cell lymphoma [id number] C82.80 Biopsy performed of lymph node mass on March 14, 2023. Findings follicular lymphoma that is low grade (1/2). Flow cytometry positive for CD10. Cells positive for CD20 as well as CD19. Negative for CD 5 and negative for CD 38. Biopsy site was retroperit rivera lymph node. Antineopla stic chemotherapy regimen [id number] Z51.11 Week 1 of rituximab on April 12, 2023. Chemothera py education performed. Week 2 of rituximab on April 19, 2023.Week 3 of rituximab on April 26, 2023.Week 4 of rituximab on May 03, 2023. Cycle 1 of rituximab maintenanc e on September 11, 2023.Cycle 2 of rituximab maintenanc e on December 03, 2023.Cycle 3 of rituximab maintenanc e on March 03, 2024.Cycle 4 of rituximab maintenanc e on June 02, 2024. Will follow-up CBC and CMP prior chemothera py today to monitor for toxicity. Nausea [id number] R11.0 As needed Zofran and Phenergan prescribed . Will follow-up Coronary arteriosclerosis [id number] I25.10 Patient had a STEMI and had cardiac stents placed June 2023. Continues to follow with Cardiology . History of anemia [id number] Z86.2 Labs during hospital stay in late February 2023 with findings of iron deficiency anemia. Patient received infusional iron with improvemen t. Labs on March 03, 2024 with hemoglobin normal at 13.5. Will follow up labs Acute cough [id number] R05.1 Patient returns for follow-up on June 02, 2024. She is feeling better. She states she had pneumonia and congestive heart failure about 2 weeks ago. She has completed antibiotic s and is taking Lasix with improvemen t. Cough has improved She is still coughing up some mucus. Discussed taking Mucinex needed. No fever or chills. Insomnia [id number] G47.0 0 Patient returns for follow-up on June 02, 2024. Her sister March 2024. She is tearful and crying during her visit today but she is grieving appropriat brittanie. Offered referral to a therapist but patient declined at this time. She has had trouble sleeping. Discussed trying melatonin. Grief finding [id number] F43.21 Patient returns for follow-up on June 02, 2024. Her sister March 2024. She is tearful and crying during her visit today but she is grieving appropriat brittanie. Offered referral to a therapist but patient declined at this time. Discussed reaching out to other friends and family for comfort. [id number] Enrique Lou MD [facility] [address] [place] [address] 09/02/2024 09:29:42 09/02/2024 10:11:58 Antineoplastic chemotherapy regimen [id number] Z51.11 Week 1 of rituximab on April 12, 2023. Chemothera py education performed. Week 2 of rituximab on April 19, 2023.Week 3 of rituximab on April 26, 2023.Week 4 of rituximab on May 03, 2023. Cycle 1 of rituximab maintenanc e on September 11, 2023.Cycle 2 of rituximab maintenanc e on December 03, 2023.Cycle 3 of rituximab maintenanc e on March 03, 2024.Cycle 4 of rituximab maintenanc e on June 02, 2024.Cycle 5 of rituximab maintenanc e on September 02, 2024.Will follow-up CBC and CMP prior chemothera py today to monitor for toxicity. Follicular lymphoma [id number] scan of the abdomen pelvis with contrast with findings of mesenteric periaortic pericaval adenopathy noted. Lymph nodes measuring up to 2 cm were seen. Ill-define d hypodense mesenteric mass that is 8.4 x 11.0 x 10.0 cm likely representi ng celine conglomera te. This is inferior to the pancreas and appears to encase the superior mesenteric artery. Postoperat dudley changes noted from previous lap band. Spleen is enlarged at 13.6 cm. Bilateral renal cyst present. Biopsy performed of lymph node mass on March 14, 2023. Findings follicular lymphoma that is low grade (1/2). Flow cytometry positive for CD10. Cells positive for CD20 as well as CD19. Negative for CD 5 and negative for CD 38. Biopsy site was retroperit rivera lymph node. Currently patient has at least stage II follicular lymphoma. Due to vascular encasement and bulky disease would recommend considerat ion for chemothera py. Patient returned on April 12, 2023 for week 1 of rituximab. Labs on May 03, 2023 with white blood cell count 7.9. Red blood count 4.7. Hemoglobin 13.6 hematocrit 41.2. Platelet count [id number]. Patient completed 4 weeks of rituximab therapy. CT scan of the chest abdomen and pelvis performed on May 24, 2023. No mediastina l or hilar adenopathy . Axillary lymph nodes not pathologic ally enlarged. Imaging of the abdomen with liver unremarkab le. No splenomega ly. Lymph node enlargemen t in the retroperit rivera and mesenteric nodes. 2.2 x 1.1 cm in the left periaortic region. Previously 2.3 x 1.5 cm and 1.6 x 1.0 cm left lower periaortic lymph node 1.9 x 1.4 cm. Lymph node conglomera te in the mesentery 12.0 x 3.7 cm. Previously 12.8 x 4.2 cm. Patient returns on June 03, 2023. Response to single agent rituximab therapy. Would continue with every 3 month maintenanc e rituximab for 2 years. Would likely repeat imaging in 4-6 months. Patient was due to start maintenanc e rituximab with dosing every 3 months in June 2023. Patient neeta gu suffered a STEMI and had 5 cardiac stents placed. Patient returns for evaluation on July 24, 2023. Discussion maintenanc e rituximab verses observatio n. If wishes to proceed with maintenanc e rituximab would consider trying medication for her. CT scan of the chest abdomen pelvis June 30, 2024 with no evidence of thoracic or mediastina l lymphadeno mason. No evidence of lymphadeno mason in the chest or acute abnormalit y. Imaging of the abdomen with retroperit rivera lymph node size continued to decrease. Less conspicuou s lymph nodes seen. Positive treatment response with significan tly decreased soft tissue nodularity in the small bowel mesentery and improved retroperit rivera adenopathy . No new areas of disease. Patient returns on September 02, 2024. Continuing with maintenanc e rituximab. Would plan to repeat imaging in December/2024. Will follow-up labs today. 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 Findings follicular lymphoma that is low grade (1/2). Flow cytometry positive for CD10. Cells positive for CD20 as well as CD19. Negative for CD 5 and negative for CD 38. Biopsy site was retroperit rivera lymph node. Nausea [id number] R11.0 As needed Zofran and Phenergan prescribed . Will follow-up Coronary arteriosclerosis [id number] I25.10 Patient had a STEMI and had cardiac stents placed June 2023. Continues to follow with Cardiology . History of anemia [id number] Z86.2 Labs during hospital stay in late February 2023 with findings of iron deficiency anemia. Patient received infusional iron with improvemen t. Labs on March 03, 2024 with hemoglobin normal at 13.5. Will follow up labs Health Concerns Section Related Observation LastModified by Organization Detai ls LastModified Time None Recorded Concern Status LastModified by Organization Details LastModified Time None Recorded Advance Directives Directive None Recorded Payers Insurance Date Sequence Insurance Name Policy Number Policy Vieira Covered Member ID Vieira Member ID Guarantor Name 08/30/2024 2 [employer] (MEDICARE SUPPLEMENT) Tay Duglas [id number] Tay Duglas 08/30/2024 1 [place] Tay L Duglas [id number] Tay Manquin Notes Date Note Type Note Provider Name and Address Organization Details Recorded Time 09/04/2023 text/html 77 yo F returns for evaluation of follicular lymphoma. Patient presented to the hospital and on imaging found to have concern for lymphadenopathy on noncontrast CT scan. CT scan of the abdomen pelvis with contrast with findings of mesenteric periaortic pericaval adenopathy noted. Lymph nodes measuring up to 2 cm were seen. 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 This is inferior to the pancreas and appears to encase the superior mesenteric artery. Postoperative changes noted from previous lap band. Spleen is enlarged at 13.6 cm. Bilateral renal cyst present. Biopsy performed of lymph node mass on March 14, 2023. Findings follicular lymphoma that is low grade (1/2). Flow cytometry positive for CD10. Cells positive for CD20 as well as CD19. Negative for CD 5 and negative for CD 38. Biopsy site was retroperitoneal lymph node. Currently patient has at least stage II follicular lymphoma. Due to vascular encasement and bulky disease would recommend consideration for chemotherapy. Would recommend PET scan for full staging. Consideration of rituximab single agent therapy weekly for 4 weeks verses bendamustine with rituximab. Patient's performance status ECOG 1 and consideration for treatment with rituximab only. Patient returned on April 12, 2023 for week 1 of rituximab. Chemotherapy education performed. Patient had mild infusion reaction with rigors. Mild increase in nausea. Patient treated with Demerol as well as Solu-Medrol. Will provide Solu-Medrol premed today with week 2 of therapy.Patient returns on April 19, 2023. Week 2 of therapy today. Will follow-up for toxicity. Repeating labs.Labs on April 12, 2023 with slightly elevated uric acid at 6.6. LDH slightly elevated at 200. Will follow-up response. Labs on April 19, 2023 with white blood count 9.2. Red blood count 4.7. Hemoglobin 13.4. Platelet count [id number]. Absolute neutrophil count 6.8. Uric acid in the normal range 3.8. LDH 256. Patient returns on May 03, 2023 for week 4 of rituximab. Will complete current therapy today. She had some diarrhea with nausea and vomiting this week. Discussed starting Imodium along with Zofran. Will arrange repeat imaging 4-6 weeks and will assess for maintenance therapy. Labs on May 03, 2023 with white blood cell count 7.9. Red blood count 4.7. Hemoglobin 13.6 hematocrit 41.2. Platelet count 635781. Patient completed 4 weeks of rituximab therapy. CT scan of the chest abdomen and pelvis performed on May 24, 2023. No mediastinal or hilar adenopathy. Axillary lymph nodes not pathologically enlarged. Imaging of the abdomen with liver unremarkable. No splenomegaly. Lymph node enlargement in the retroperitoneal and mesenteric nodes. 2.2 x 1.1 cm in the left periaortic region. Previously 2.3 x 1.5 cm and 1.6 x 1.0 cm left lower periaortic lymph node 1.9 x 1.4 cm. Lymph node conglomerate in the mesentery 12.0 x 3.7 cm. Previously 12.8 x 4.2 cm. Patient returns on June 03, 2023. Response to single agent rituximab therapy. Would continue with every 3 month maintenance rituximab for 2 years. Would likely repeat imaging in 4-6 months. Patient was due to start maintenance rituximab with dosing every 3 months in June 2023. Patient unfortunately suffered a STEMI and had 5 cardiac stents placed. Patient returns for evaluation on July 24, 2023. Discussion maintenance rituximab verses observation. If wishes to proceed with maintenance rituximab would consider trying medication for her. Currently patient is recovering from cardiac stent placement. Would favor repeat CT scan in 4-6 weeks which would be late August 2023. If lymph nodes are still stable can reassess how patient is feeling and observation versus potential maintenance rituximab. CT scan of the chest abdomen pelvis performed on August 28, 2023 with stable findings. Would continue with current therapy. Improvement in previously seen inflammatory process in the lungs. Patient returns for follow-up on September 04, 2023. She is feeling much better. Patient would like to proceed with rituximab maintenance. Will schedule. Will follow-up labs on day 1 of rituximab. Wilian Olsen PA-C [id number], [place], [address], [facility] - [place] & [place] 09/04/2023 15:17:41 09/11/2023 text/html 77 yo F returns for evaluation of follicular lymphoma. Patient presented to the hospital and on imaging found to have concern for lymphadenopathy on noncontrast CT scan. CT scan of the abdomen pelvis with contrast with findings of mesenteric periaortic pericaval adenopathy noted. Lymph nodes measuring up to 2 cm were seen. 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 This is inferior to the pancreas and appears to encase the superior mesenteric artery. Postoperative changes noted from previous lap band. Spleen is enlarged at 13.6 cm. Bilateral renal cyst present. Biopsy performed of lymph node mass on March 14, 2023. Findings follicular lymphoma that is low grade (1/2). Flow cytometry positive for CD10. Cells positive for CD20 as well as CD19. Negative for CD 5 and negative for CD 38. Biopsy site was retroperitoneal lymph node. Currently patient has at least stage II follicular lymphoma. Due to vascular encasement and bulky disease would recommend consideration for chemotherapy. Would recommend PET scan for full staging. Consideration of rituximab single agent therapy weekly for 4 weeks verses bendamustine with rituximab. Patient's performance status ECOG 1 and consideration for treatment with rituximab only. Patient returned on April 12, 2023 for week 1 of rituximab. Chemotherapy education performed. Patient had mild infusion reaction with rigors. Mild increase in nausea. Patient treated with Demerol as well as Solu-Medrol. Will provide Solu-Medrol premed today with week 2 of therapy.Patient returns on April 19, 2023. Week 2 of therapy today. Will follow-up for toxicity. Repeating labs.Labs on April 12, 2023 with slightly elevated uric acid at 6.6. LDH slightly elevated at 200. Will follow-up response. Labs on April 19, 2023 with white blood count 9.2. Red blood count 4.7. Hemoglobin 13.4. Platelet count 869201. Absolute neutrophil count 6.8. Uric acid in the normal range 3.8. LDH 256. Patient returns on May 03, 2023 for week 4 of rituximab. Will complete current therapy today. She had some diarrhea with nausea and vomiting this week. Discussed starting Imodium along with Zofran. Will arrange repeat imaging 4-6 weeks and will assess for maintenance therapy. Labs on May 03, 2023 with white blood cell count 7.9. Red blood count 4.7. Hemoglobin 13.6 hematocrit 41.2. Platelet count 673882. Patient completed 4 weeks of rituximab therapy. CT scan of the chest abdomen and pelvis performed on May 24, 2023. No mediastinal or hilar adenopathy. Axillary lymph nodes not pathologically enlarged. Imaging of the abdomen with liver unremarkable. No splenomegaly. Lymph node enlargement in the retroperitoneal and mesenteric nodes. 2.2 x 1.1 cm in the left periaortic region. Previously 2.3 x 1.5 cm and 1.6 x 1.0 cm left lower periaortic lymph node 1.9 x 1.4 cm. Lymph node conglomerate in the mesentery 12.0 x 3.7 cm. Previously 12.8 x 4.2 cm. Patient returns on June 03, 2023. Response to single agent rituximab therapy. Would continue with every 3 month maintenance rituximab for 2 years. Would likely repeat imaging in 4-6 months. Patient was due to start maintenance rituximab with dosing every 3 months in June 2023. Patient unfortunately suffered a STEMI and had 5 cardiac stents placed. Patient returns for evaluation on July 24, 2023. Discussion maintenance rituximab verses observation. If wishes to proceed with maintenance rituximab would consider trying medication for her. Currently patient is recovering from cardiac stent placement. Would favor repeat CT scan in 4-6 weeks which would be late August 2023. If lymph nodes are still stable can reassess how patient is feeling and observation versus potential maintenance rituximab. CT scan of the chest abdomen pelvis performed on August 28, 2023 with stable findings. Would continue with current therapy. Improvement in previously seen inflammatory process in the lungs. Patient returns for follow-up on September 11, 2023. She is feeling much better. Patient mentioned she has had trouble with insomnia for years. Discussed trying melatonin and sleep hygiene. Will follow-up. Patient would like to proceed with rituximab maintenance. Will start cycle one of rituximab maintenance today. Will follow-up labs. Wilian Olsen PA-C [id number], [place], [address], [place] [facility] - [place] 09/11/2023 09:55:42 12/03/2023 text/html 77 yo F returns for evaluation of follicular lymphoma. Patient presented to the hospital and on imaging found to have concern for lymphadenopathy on noncontrast CT scan. CT scan of the abdomen pelvis with contrast with findings of mesenteric periaortic pericaval adenopathy noted. Lymph nodes measuring up to 2 cm were seen. 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 This is inferior to the pancreas and appears to encase the superior mesenteric artery. Postoperative changes noted from previous lap band. Spleen is enlarged at 13.6 cm. Bilateral renal cyst present. Biopsy performed of lymph node mass on March 14, 2023. Findings follicular lymphoma that is low grade (1/2). Flow cytometry positive for CD10. Cells positive for CD20 as well as CD19. Negative for CD 5 and negative for CD 38. Biopsy site was retroperitoneal lymph node. Currently patient has at least stage II follicular lymphoma. Due to vascular encasement and bulky disease would recommend consideration for chemotherapy. Would recommend PET scan for full staging. Consideration of rituximab single agent therapy weekly for 4 weeks verses bendamustine with rituximab. Patient's performance status ECOG 1 and consideration for treatment with rituximab only. Patient returned on April 12, 2023 for week 1 of rituximab. Chemotherapy education performed. Patient had mild infusion reaction with rigors. Mild increase in nausea. Patient treated with Demerol as well as Solu-Medrol. Will provide Solu-Medrol premed today with week 2 of therapy.Patient returns on April 19, 2023. Week 2 of therapy today. Will follow-up for toxicity. Repeating labs.Labs on April 12, 2023 with slightly elevated uric acid at 6.6. LDH slightly elevated at 200. Will follow-up response. Labs on April 19, 2023 with white blood count 9.2. Red blood count 4.7. Hemoglobin 13.4. Platelet count 533781. Absolute neutrophil count 6.8. Uric acid in the normal range 3.8. LDH 256. Patient returns on May 03, 2023 for week 4 of rituximab. Will complete current therapy today. She had some diarrhea with nausea and vomiting this week. Discussed starting Imodium along with Zofran. Will arrange repeat imaging 4-6 weeks and will assess for maintenance therapy. Labs on May 03, 2023 with white blood cell count 7.9. Red blood count 4.7. Hemoglobin 13.6 hematocrit 41.2. Platelet count 616876. Patient completed 4 weeks of rituximab therapy. CT scan of the chest abdomen and pelvis performed on May 24, 2023. No mediastinal or hilar adenopathy. Axillary lymph nodes not pathologically enlarged. Imaging of the abdomen with liver unremarkable. No splenomegaly. Lymph node enlargement in the retroperitoneal and mesenteric nodes. 2.2 x 1.1 cm in the left periaortic region. Previously 2.3 x 1.5 cm and 1.6 x 1.0 cm left lower periaortic lymph node 1.9 x 1.4 cm. Lymph node conglomerate in the mesentery 12.0 x 3.7 cm. Previously 12.8 x 4.2 cm. Patient returns on June 03, 2023. Response to single agent rituximab therapy. Would continue with every 3 month maintenance rituximab for 2 years. Would likely repeat imaging in 4-6 months. Patient was due to start maintenance rituximab with dosing every 3 months in June 2023. Patient unfortunately suffered a STEMI and had 5 cardiac stents placed. Patient returns for evaluation on July 24, 2023. Discussion maintenance rituximab verses observation. If wishes to proceed with maintenance rituximab would consider trying medication for her. Currently patient is recovering from cardiac stent placement. Would favor repeat CT scan in 4-6 weeks which would be late August 2023. If lymph nodes are still stable can reassess how patient is feeling and observation versus potential maintenance rituximab. CT scan of the chest abdomen pelvis performed on August 28, 2023 with stable findings. Would continue with current therapy. Improvement in previously seen inflammatory process in the lungs. Patient returns for follow-up on December 03, 2023. She is feeling well. She does have nonpruritic rash on her face that she has had for about 3 months. There are no papules or pustules. The skin is dry and red below her nose and around her mouth and chin. She is using clotrimazole without much improvement. Will refer to Dermatology further evaluation. Patient will receive cycle two of rituximab maintenance today. Will follow-up labs. Wilian Olsen PA-C [address], [place], [address], [place] [facility] - [place] & [place] 12/03/2023 10:22:12 06/02/2024 text/html 78 yo F returns for evaluation of follicular lymphoma. Patient presented to the hospital and on imaging found to have concern for lymphadenopathy on noncontrast CT scan. CT scan of the abdomen pelvis with contrast with findings of mesenteric periaortic pericaval adenopathy noted. Lymph nodes measuring up to 2 cm were seen. 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 This is inferior to the pancreas and appears to encase the superior mesenteric artery. Postoperative changes noted from previous lap band. Spleen is enlarged at 13.6 cm. Bilateral renal cyst present. Biopsy performed of lymph node mass on March 14, 2023. Findings follicular lymphoma that is low grade (1/2). Flow cytometry positive for CD10. Cells positive for CD20 as well as CD19. Negative for CD 5 and negative for CD 38. Biopsy site was retroperitoneal lymph node. Currently patient has at least stage II follicular lymphoma. Due to vascular encasement and bulky disease would recommend consideration for chemotherapy. Would recommend PET scan for full staging. Consideration of rituximab single agent therapy weekly for 4 weeks verses bendamustine with rituximab. Patient's performance status ECOG 1 and consideration for treatment with rituximab only. Patient returned on April 12, 2023 for week 1 of rituximab. Chemotherapy education performed. Patient had mild infusion reaction with rigors. Mild increase in nausea. Patient treated with Demerol as well as Solu-Medrol. Will provide Solu-Medrol premed today with week 2 of therapy.Patient returns on April 19, 2023. Week 2 of therapy today. Will follow-up for toxicity. Repeating labs.Labs on April 12, 2023 with slightly elevated uric acid at 6.6. LDH slightly elevated at 200. Will follow-up response. Labs on April 19, 2023 with white blood count 9.2. Red blood count 4.7. Hemoglobin 13.4. Platelet count [id number]. Absolute neutrophil count 6.8. Uric acid in the normal range 3.8. LDH 256. Patient returns on May 03, 2023 for week 4 of rituximab. Will complete current therapy today. She had some diarrhea with nausea and vomiting this week. Discussed starting Imodium along with Zofran. Will arrange repeat imaging 4-6 weeks and will assess for maintenance therapy. Labs on May 03, 2023 with white blood cell count 7.9. Red blood count 4.7. Hemoglobin 13.6 hematocrit 41.2. Platelet count [id number]. Patient completed 4 weeks of rituximab therapy. CT scan of the chest abdomen and pelvis performed on May 24, 2023. No mediastinal or hilar adenopathy. Axillary lymph nodes not pathologically enlarged. Imaging of the abdomen with liver unremarkable. No splenomegaly. Lymph node enlargement in the retroperitoneal and mesenteric nodes. 2.2 x 1.1 cm in the left periaortic region. Previously 2.3 x 1.5 cm and 1.6 x 1.0 cm left lower periaortic lymph node 1.9 x 1.4 cm. Lymph node conglomerate in the mesentery 12.0 x 3.7 cm. Previously 12.8 x 4.2 cm. Patient returns on June 03, 2023. Response to single agent rituximab therapy. Would continue with every 3 month maintenance rituximab for 2 years. Would likely repeat imaging in 4-6 months. Patient was due to start maintenance rituximab with dosing every 3 months in June 2023. Patient unfortunately suffered a STEMI and had 5 cardiac stents placed. Patient returns for evaluation on July 24, 2023. Discussion maintenance rituximab verses observation. If wishes to proceed with maintenance rituximab would consider trying medication for her. Currently patient is recovering from cardiac stent placement. Would favor repeat CT scan in 4-6 weeks which would be late August 2023. If lymph nodes are still stable can reassess how patient is feeling and observation versus potential maintenance rituximab. CT scan of the chest abdomen pelvis performed on August 28, 2023 with stable findings. Would continue with current therapy. Improvement in previously seen inflammatory process in the lungs. Patient returns for follow-up on June 02, 2024. She is feeling better. She states she had pneumonia and congestive heart failure about 2 weeks ago. She has completed antibiotics and is taking Lasix with improvement. Cough has improved She is still coughing up some mucus. Discussed taking Mucinex needed. No fever or chills. Her sister March 2024. She is tearful and crying during her visit today but she is grieving appropriately. Offered referral to a therapist but patient declined at this time. She has had trouble sleeping. Discussed trying melatonin. Patient will receive cycle four of rituximab maintenance today. She is tolerating well. Will follow-up CBC and CMP prior chemotherapy today to monitor for toxicity. She is due for follow up imaging. Will schedule scans. Wilian Olsen PA-C [address], [place], [address], [place] 06/02/2024 10:03:19 09/02/2024 text/html 78 yo F returns for evaluation of follicular lymphoma. Patient presented to the hospital and on imaging found to have concern for lymphadenopathy on noncontrast CT scan. CT scan of the abdomen pelvis with contrast with findings of mesenteric periaortic pericaval adenopathy noted. Lymph nodes measuring up to 2 cm were seen. 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 This is inferior to the pancreas and appears to encase the superior mesenteric artery. Postoperative changes noted from previous lap band. Spleen is enlarged at 13.6 cm. Bilateral renal cyst present. Biopsy performed of lymph node mass on March 14, 2023. Findings follicular lymphoma that is low grade (1/2). Flow cytometry positive for CD10. Cells positive for CD20 as well as CD19. Negative for CD 5 and negative for CD 38. Biopsy site was retroperitoneal lymph node. Currently patient has at least stage II follicular lymphoma. Due to vascular encasement and bulky disease would recommend consideration for chemotherapy. Would recommend PET scan for full staging. Consideration of rituximab single agent therapy weekly for 4 weeks verses bendamustine with rituximab. Patient's performance status ECOG 1 and consideration for treatment with rituximab only. Patient returned on April 12, 2023 for week 1 of rituximab. Chemotherapy education performed. Patient had mild infusion reaction with rigors. Mild increase in nausea. Patient treated with Demerol as well as Solu-Medrol. Will provide Solu-Medrol premed today with week 2 of therapy.Patient returns on April 19, 2023. Week 2 of therapy today. Will follow-up for toxicity. Repeating labs.Labs on April 12, 2023 with slightly elevated uric acid at 6.6. LDH slightly elevated at 200. Will follow-up response. Labs on April 19, 2023 with white blood count 9.2. Red blood count 4.7. Hemoglobin 13.4. Platelet count [id number]. Absolute neutrophil count 6.8. Uric acid in the normal range 3.8. LDH 256. Patient returns on May 03, 2023 for week 4 of rituximab. Will complete current therapy today. She had some diarrhea with nausea and vomiting this week. Discussed starting Imodium along with Zofran. Will arrange repeat imaging 4-6 weeks and will assess for maintenance therapy. Labs on May 03, 2023 with white blood cell count 7.9. Red blood count 4.7. Hemoglobin 13.6 hematocrit 41.2. Platelet count [id number]. Patient completed 4 weeks of rituximab therapy. CT scan of the chest abdomen and pelvis performed on May 24, 2023. No mediastinal or hilar adenopathy. Axillary lymph nodes not pathologically enlarged. Imaging of the abdomen with liver unremarkable. No splenomegaly. Lymph node enlargement in the retroperitoneal and mesenteric nodes. 2.2 x 1.1 cm in the left periaortic region. Previously 2.3 x 1.5 cm and 1.6 x 1.0 cm left lower periaortic lymph node 1.9 x 1.4 cm. Lymph node conglomerate in the mesentery 12.0 x 3.7 cm. Previously 12.8 x 4.2 cm. Patient returns on June 03, 2023. Response to single agent rituximab therapy. Would continue with every 3 month maintenance rituximab for 2 years. Would likely repeat imaging in 4-6 months. Patient was due to start maintenance rituximab with dosing every 3 months in June 2023. Patient unfortunately suffered a STEMI and had 5 cardiac stents placed. Patient returns for evaluation on July 24, 2023. Discussion maintenance rituximab verses observation. If wishes to proceed with maintenance rituximab would consider trying medication for her. Currently patient is recovering from cardiac stent placement. Would favor repeat CT scan in 4-6 weeks which would be late August 2023. If lymph nodes are still stable can reassess how patient is feeling and observation versus potential maintenance rituximab. CT scan of the chest abdomen pelvis performed on August 28, 2023 with stable findings. Would continue with current therapy. Improvement in previously seen inflammatory process in the lungs. Patient returns for follow-up on June 02, 2024. She is feeling better. She states she had pneumonia and congestive heart failure about 2 weeks ago. She has completed antibiotics and is taking Lasix with improvement. Cough has improved She is still coughing up some mucus. Discussed taking Mucinex needed. No fever or chills. Her sister March 2024. She is tearful and crying during her visit today but she is grieving appropriately. CT scan of the chest abdomen pelvis June 30, 2024 with no evidence of thoracic or mediastinal lymphadenopathy. No evidence of lymphadenopathy in the chest or acute abnormality. Imaging of the abdomen with retroperitoneal lymph node size continued to decrease. Less conspicuous lymph nodes seen. Positive treatment response with significantly decreased soft tissue nodularity in the small bowel mesentery and improved retroperitoneal adenopathy. No new areas of disease. Patient returns on September 02, 2024. Continuing with maintenance rituximab. Would plan to repeat imaging in December/January 2025. Will follow-up labs today. Enrique Lou MD [address], [place], [address], [place] 09/02/2024 09:56:56 OBGyn Episode No OBEpisode recorded.
--- OUTSIDE RECORDS SUMMARY | 2024-09-17 13:43 | XMS_ITS | Encounter Summary ---
Author Organization [employer] ([place], [place], [place], [place]) Address [address] [place] [address] Care Team Providers Care Paving Inspector Name Role Phone Unavailable Primary Care Provider Unavailabl e Encounter Details Date Type Department Care Team (Late st Contact Info) Description 05/14/2019 Transcribed Document [facility] [place] Family Medicine [address] [place] [address] ProviderLexi MD [address] [place] [address] Social History Tobacco Use Types [...] - Historical ProviderMD - 05/14/2019 7:00 AM CARDIO CLINICIAN Pain Assessment Entered On: 05/14/2019 11:33 EST Performed On: 05/14/2019 6:46 EST by Rach Red RN Intervention Information: acetaminophen Performed by BORIS OVALLE, Handle Turner-Nursing on 05/14/2019 05:46:00 EST acetaminophen,1000mg Oral Pain [...]
--- OUTSIDE RECORDS SUMMARY | 2024-09-17 13:43 | XMS_ITS | Encounter Summary ---
Author Organization [employer] ([place], [place], [place], [place]) Address [address] [place] [address] Care Team Providers Care Trustee Of Estate Name Role Phone Unavailable Primary Care Provider Unavailabl e Encounter Details Date Type Department Care Team (Late st Contact Info) Description 05/13/2019 Transcribed Document [facility] [place] Family Medicine [address] [place] [address] ProviderLexi MD [address] [place] [address] Social History Tobacco Use Types [...] - Historical ProviderMD - 05/13/2019 1:00 AM ANNEALER Pain Assessment Entered On: 05/13/2019 4:26 EST Performed On: 05/13/2019 2:28 EST by BORIS OVALLE, Appellate Court Judge-Nursing Intervention Information: acetaminophen Performed by BORIS OVALLE, Appellate Court Judge-Nursing on 05/13/2019 01:28:00 EST acetaminophen,1000mg Oral Pain Assessment Pain Assessment : Follow-up assessment Pain Scale Goal : 4 Pain Scale Used : FACES Pain Intervention, Drug : Medicated Pain Improved by Intervention : Yes BORIS OVALLE, Appellate Court Judge-Nursing - 05/13/2019 4:26 EST Pain Scale Intensity : 2 BORIS OVALLE, Appellate Court Judge-Nursing - 05/13/2019 4:26 EST Image 4 - Images currently included in the form version of this document have not been included in the text rendition version of the form. documented in this encounter Plan of Treatment Not on file documented as of this encounter Visit Diagnoses Not on filedocumented in this encounter
--- OUTSIDE RECORDS SUMMARY | 2024-09-17 13:43 | XMS_ITS | Encounter Summary ---
Author Organization [employer] ([place], [place], [place], [place]) Address [address] [place] [address] Care Team Providers Care Ceramic Artist Name Role Phone Unavailable Primary Care Provider Unavailabl e Encounter Details Date Type Department Care Team (Late st Contact Info) Description 05/15/2019 Transcribed Document [facility] [place] Family Medicine [address] [place] [address] ProviderLexi MD [address] [place] [address] Social History Tobacco Use Types [...] Conversion Note - Historical ProviderMD - 05/15/2019 2:35 PM HAIR SAMPLE MATCHER Final Discharge Planning Entered On: 05/15/2019 14:36 EST Performed On: 05/15/2019 14:35 EST by SANDRA DEL ANGEL, Care Management-Dispersion Mixer Final Discharge Planning Discharge Arrangements : Patient [...] Discharge Comment : Patient is accepted to [facility] on Saturday\her nephew will transport SANDRA DEL ANGEL, Care Management-Dispersion Mixer - 05/15/2019 14:35 EST Final Narrative Note Historical Narrative Note : anticipate d/c to [facility] on Saturday by family SANDRA DEL ANGEL, Care Management-Dispersion Mixer - 05/13/19 12:01:59 SANDRA DEL ANGEL Care Management-Dispersion Mixer - 05/15/2019 14:35 EST documented in this encounter Plan of Treatment Not on file documented as of this encounter Visit Diagnoses Not on filedocumented in this encounter
--- OUTSIDE RECORDS SUMMARY | 2024-09-17 13:43 | XMS_ITS | Encounter Summary ---
Author Organization [employer] ([place], [place], [place], [place]) Address [address] [place] [address] Care Team Providers Care Animal Attendants And Trainers Name Role Phone Unavailable Primary Care Provider Unavailabl e Encounter Details Date Type Department Care Team (Late st Contact Info) Description 05/15/2019 Transcribed Document [facility] [place] [address] [place] [address] ProviderLexi MD [address] [place] [address] Social History Tobacco Use Types [...] - Historical ProviderMD - 05/15/2019 2:00 AM INSPECTOR FIREARMS Press Hand Details Entered On: 05/15/2019 5:23 EST Performed On: 05/15/2019 2:00 EST by BORIS OVALLE, Store Gift Wrap Associate-Nursing Order Details Transport Mode Order Detail : Wheelchair Isolation Precautions Order Detail : Standard Precautions Order Detail : N/A IV Order Detail : 1 Oxygen Order Detail : 1 Nurse Collect Order Detail : 0 Lift/Transfer : Minimal Central Line Order Detail : No Room Service : Appropriate Arterial Line : No BORIS OVALLE, Store Gift Wrap Associate-Nursing - 05/15/2019 5:22 EST documented in this encounter Plan of Treatment Not on file documented as of this encounter Visit Diagnoses Not on filedocumented in this encounter
--- OUTSIDE RECORDS SUMMARY | 2024-09-17 13:43 | XMS_ITS | Encounter Summary ---
Author Organization [employer] ([place], [place], [place], [place]) Address [address] [place] [address] Care Team Providers Care Avian Keeper Name Role Phone Unavailable Primary Care Provider Unavailabl e Encounter Details Date Type Department Care Team (Late st Contact Info) Description 05/13/2019 Transcribed Document [facility] [place] Family Medicine [address] [place] [address] ProviderLexi MD [address] [place] [address] Social History Tobacco Use Types [...] - Historical ProviderMD - 05/13/2019 12:01 PM LOANS OFFICER Final Discharge Planning Entered On: 05/13/2019 12:01 EST Performed On: 05/13/2019 12:01 EST by SANDRA DEL ANGEL Care Management-Reimbursement Specialist Final Discharge Planning Discharge Arrangements : Patient [...] with Medicare Certification-03 SANDRA DEL ANGEL, Care Management-Reimbursement Specialist - 05/13/2019 12:01 EST Final Narrative Note Final Narrative Note : anticipate d/c to [facility] on Saturday by family SANDRA DEL ANGEL Care Management-Reimbursement Specialist - 05/13/2019 12:01 EST documented in this encounter Plan of Treatment Not on file documented as of this encounter Visit Diagnoses Not on filedocumented in this encounter
--- OUTSIDE RECORDS SUMMARY | 2024-09-17 13:43 | XMS_ITS | Encounter Summary ---
Author Organization [employer] ([place], [place], [place], [place]) Address [address] [place] [address] Care Team Providers Care Renewals Manager Name Role Phone Unavailable Primary Care Provider Unavailabl e Encounter Details Date Type Department Care Team (Late st Contact Info) Description 05/13/2019 Transcribed Document [facility] [place] Family Medicine [address] [place] [address] ProviderLexi MD [address] [place] [address] Social History Tobacco Use Types [...] - Historical ProviderMD - 05/13/2019 2:00 PM LODGING FACILITIES MANAGER Pain Assessment Entered On: 05/13/2019 13:11 EST [...] form. Electronically signed by Meghan Carney Conversion Casting Machine Service Operator Cerner at 07/02/2022 4:51 PM CDT documented in this encounter Plan of Treatment Not on file documented as of this encounter Visit Diagnoses Not on filedocumented in this encounter
--- OUTSIDE RECORDS SUMMARY | 2024-09-17 13:43 | XMS_ITS | Encounter Summary ---
Author Organization [employer] ([place], [place], [place], [place]) Address [address] [place] [address] Care Team Providers Care Sulfuric Acid Plant Operator Name Role Phone Unavailable Primary Care Provider Unavailabl e Encounter Details Date Type Department Care Team (Late st Contact Info) Description 05/13/2019 Transcribed Document [facility] [place] [address] [place] [address] ProviderLexi MD [address] [place] [address] Social History Tobacco Use Types [...] - Historical ProviderMD - 05/13/2019 7:01 AM COPING MACHINE ASSEMBLER Patient: TAY FONSECA Age: 73 Years Sex: [...] Length: Knee High, Continuous Order (ROSIO JUDD) Subjective Patient is POD #1 Right ATHA. [...] mg= 2 Tab, Oral, Q6HInt Vitamin D2, 75972 Units= 1 Cap, Oral, Saturday Zofran, 4 [...] Screen (Tube) Negative ABSC 05/12/2019 08:44 EST Electronically signed by Angelika, [facility] Conversion Wooden Fence Erector Cerner at 07/02/2022 4:53 PM CDT documented in this encounter Plan of Treatment Not on file documented as of this encounter Visit Diagnoses Not on filedocumented in this encounter
--- OUTSIDE RECORDS SUMMARY | 2024-09-17 13:43 | XMS_ITS | Encounter Summary ---
Author Organization [employer] ([place], [place], [place], [place]) Address [address] [place] [address] Care Team Providers Care Macadam Raker Name Role Phone Unavailable Primary Care Provider Unavailabl e Encounter Details Date Type Department Care Team (Late st Contact Info) Description 05/12/2019 Transcribed Document [facility] [place] Family Medicine [address] [place] [address] ProviderLexi MD [address] [place] [address] Social History Tobacco Use Types [...] - Historical ProviderMD - 05/12/2019 12:53 PM APPLICATION HELPER Pain Assessment Entered On: 05/13/2019 7:53 EST Performed On: 05/13/2019 7:15 EST by Rach Red RN Intervention Information: oxyCODONE Performed by BORIS OVALLE, Buildings Painter-Nursing on 05/13/2019 06:15:00 EST oxyCODONE,10mg Oral,Pain (Severe [...]
--- OUTSIDE RECORDS SUMMARY | 2024-09-17 13:43 | XMS_ITS | Encounter Summary ---
Author Organization [employer] ([place], [place], [place], [place]) Address [address] [place] [address] Care Team Providers Care Fitness Attendant Name Role Phone Unavailable Primary Care Provider Unavailabl e Encounter Details Date Type Department Care Team (Late st Contact Info) Description 05/15/2019 Transcribed Document [facility] [place] Family Medicine [address] [place] [address] ProviderLexi MD [address] [place] [address] Social History Tobacco Use Types [...] - Historical ProviderMD - 05/15/2019 5:00 PM EMERGENCY MEDICAL SERVICES COORDINATOR Chart Check - Review Order Profile Entered [...]
--- OUTSIDE RECORDS SUMMARY | 2024-09-17 13:43 | XMS_ITS | Encounter Summary ---
Author Organization [employer] ([place], [place], [place], [place]) Address [address] [place] [address] Care Team Providers Care Veneer Stapler Name Role Phone Unavailable Primary Care Provider Unavailabl e Encounter Details Date Type Department Care Team (Late st Contact Info) Description 05/14/2019 Transcribed Document [facility] Radiology [address] [place] [address] Fernando River MD [address] [place] [address] Social History Tobacco Use Types Packs/Day [...] and CM reported [facility] Discussed with patient and nursing and [...] mg= 2 Tab, Oral, Q6HInt Vitamin D2, 92949 Units= 1 Cap, Oral, Saturday Zofran, 4 [...]
--- OUTSIDE RECORDS SUMMARY | 2024-09-17 13:43 | XMS_ITS | Encounter Summary ---
Author Organization [employer] ([place], [place], [place], [place]) Address [address] [place] [address] Care Team Providers Care Environmental Engineer Name Role Phone Unavailable Primary Care Provider Unavailabl e Encounter Details Date Type Department Care Team (Late st Contact Info) Description 05/12/2019 Transcribed Document [facility] [place] Family Medicine [address] [place] [address] ProviderLexi MD [address] [place] [address] Social History Tobacco Use Types [...] - Historical ProviderMD - 05/12/2019 2:00 PM TECHNOLOGIST INFECTIOUS DISEASE Pain Assessment Entered On: 05/12/2019 16:50 EST [...] form. Electronically signed by Meghan Carney Conversion Ethanol Maintenance Mechanic Cerjeanette at 07/02/2022 5:10 PM CDT documented in this encounter Plan of Treatment Not on file documented as of this encounter Visit Diagnoses Not on filedocumented in this encounter
--- OUTSIDE RECORDS SUMMARY | 2024-09-17 13:43 | XMS_ITS | Encounter Summary ---
Author Organization [employer] ([place], [place], [place], [place]) Address [address] [place] [address] Care Team Providers Care Machined Parts Quality Inspector Name Role Phone Unavailable Primary Care Provider Unavailabl e Encounter Details Date Type Department Care Team (Late st Contact Info) Description 05/13/2019 Transcribed Document [facility] Radiology [address] [place] [address] Alba River MD [address] [place] [address] Social History Tobacco Use Types Packs/Day [...] reports no chest pain Tolerated her diet [place] a little weak this am No nausea [...] mg= 2 Tab, Oral, Q6HInt Vitamin D2, 48727 Units= 1 Cap, Oral, Saturday Zofran, 4 [...]
--- OUTSIDE RECORDS SUMMARY | 2024-09-17 13:44 | XMS_ITS | Data Portability ---
Author Organization [place] - [employer] [facility] [employer] Address [address] [place] [address] Care Team Providers Care Nc Manager Name Role Phone LILIAN MARINA Primary Care Provider Assessment No assessment recorded. Plan of Treatment Reminders Order Date Submit Date Provider Last Modified By Organization Details Last Modified Time Details Appointments None recorded. Lab None recorded. Referral remote care management referral 2022 023 OBI Not available 4 05:00:57 remote care management referral 2022 023 OBI Not available 4 05:00:57 Procedures None recorded. Surgeries None recorded. Imaging None recorded. Medication Orders None recorded. Patient TargetsNo targets recorded. Patient Instructions Encounter Date Encounter Id Patient Instructions Last Modified By Organization Details Last Modified Time 01/23/[id number] The total amount of time spent in care of this patient was _15_ minutes. Patient's location on this visit: [place] Disclaimer: Patient understands that telephonic visits have limitations and the provider has indicated recommendations based on the information provided by the patient and no physical exam was conducted. Medication refills, if required, are provided to avoid disruption in the ongoing care of the patient. Patient has agreed to the recommendations and will do the necessary testing, if required, in a reasonable timeframe. Pt gives verbal consent to Remote Patient Monitoring (RPM) as below: I believe that you can benefit from Remote Patient Monitoring (RPM) and want to enroll you in my Remote Patient Monitoring program. If you agree, [employer] will provide devices and services that will facilitate the provision of RPM. Through devices provided by [employer] , I will be able to remotely monitor your vital signs and other data in order to ensure compliance with treatment regimens and have real time discussions with you when your vital signs are off base. Consent to Remote Patient Monitoring I need to obtain your consent in order to enroll you in the Remote Patient Monitoring program and receive Remote Patient Monitoring services from al, in conjunction with [employer]. As a condition of receiving Remote Patient Monitoring services, I will provide your home telephone number, cell number and email address to [employer] . Terms of Use Information The Terms of Use for the Remote Patient Monitoring services will be included in your welcome box. Please review this document carefully. By using [employer] , you are agreeing to be bound by the Terms of Use document that will be included in your welcome box. If you decide not to receive Remote Patient Monitoring services at any time, you can contact al or Andrea at [phone]. melissa Not available 01/23/2023 16:37:38 Reason for Referral Referring Physician: Myriam Gil, Family Medicine, Encounter Date: 01/23/2023 Referring Physician: Myriam Gil [facility], Encounter Date: 01/23/2023 Problems Name Problem SNOMED Code Status Onset Date Resolution Date Notes Provider Name and Address Organization Details Recorded Time Essential hypertensio n 54257497 Active 2022 Myriam cunha, MAIL OPENER [address] , [place], [address], [facility] 16:38:56 Hyperglycem ia due to type 2 diabetes mellitus [id number] 09 Active 2022 Myriam cunha, MAIL OPENER [address] , [place], [address], [facility] [employer] [facility] 16:39:10 Problem Notes None recorded. Procedures Surgical History Date Name Laterality Status Provider Name and Address Organization Details Recorded Time [facility] 01/23/2023 16:10:19 Hip Replacement completed [facility] 01/23/2023 16:10:39 procedure on ankle completed [facility] 01/23/2023 16:10:50 procedure on wrist completed [facility] 01/23/2023 16:11:00 Cataract Surgery completed [facility] 01/23/2023 16:11:20 Imaging Results None recorded. Procedure Notes None recorded. Medical Equipment None Reported. Allergies Allergen ID Allergen Name Allergen Category Reaction Reaction Severity Criticality Documentation Date Start Date Code Code System Note Provider Name and Address Organization Details Recorded Time Product containin g penicilli n (product) medicatio n Not available Not available Not available 01/23/2023 90093 8001 SNOMED [facility] 16:22:37 Medications Name Sig Start Date Stop Date Status Note LastModified by Organization Details LastModified Time furosemide 40 mg tablet Take 1 tablet every day by oral route at bedtime for 30 days. 2022 active Not Available Not Available Not Avai lable citalopram 40 mg tablet Take 1 tablet every day by oral route for 30 days. active Not Available Not Available No t Available lisinopril 20 mg-hydrochl orothiazide 12.5 mg tablet Take 1 tablet every day by oral route for 30 days. active Not Available Not Available No t Available azithromyci n 250 mg tablet 01/23 completed Not Available Not Available Not Available glipizide ER 10 mg tablet, extended release 24 hr Take 2 tablets every day by oral route for 30 days. active Not Available Not Available No t Available glipizide 10 mg tablet 01/23 completed Not Available Not Available Not Available spironolact one 25 mg tablet Take 1 tablet every day by oral route as needed for 30 days. active Not Available Not Available No t Available cephalexin 500 mg capsule TAKE 1 CAPSULE BY MOUTH FOUR TIMES A DAY 01/23 completed Not Available Not Available Not Available erythromyci n 5 mg/gram (0.5 %) eye ointment 01/23 completed Not Available Not Available Not Available clotrimazol e-betametha sone 1 %-0.05 % topical cream APPLY TO AFFECTED AREA TOPICALLY TWICE A DAY FOR 10 DAYS 01/23 completed Not Available Not Available Not Available hydroxyzine HCl 25 mg tablet Take 1 tablet every 4-6 hours by oral route as needed for 20 days. active Not Available Not Available No t Available mupirocin 2 % topical ointment 1 APPLIC TOPICALLY THREE TIMES A DAY FOR 7 DAYS 01/23 completed Not Available Not Available Not Available albuterol sulfate HFA 90 mcg/actuati on aerosol inhaler 01/23 completed Not Available Not Available Not Available Vitamin D2 1,250 mcg (50,000 unit) capsule Take 1 capsule every week by oral route for 28 days. active Not Available Not Available No t Available Paxlovid 300 mg (150 mg x 2)-100 mg tablets in a dose pack TK 2 NIRMATREL VIR TS AND 1 RITONAVIR T TOGETHER PO BID FOR 5 DAYS BID FOR 5 DAYS 01/23 completed Not Available Not Available Not Available Vitals Date Recorded Body height Body mass index (BMI) Body weight Provider Name and Address Organization Details Last Updated DateTime 01/23/2023 157.48 cm 40.2 kg/m2 72316.32 g Stacey Elizondocker [facility] 01/23/2023 16:08:56 Social History Question Answer Notes LastModified by Organizat ion Details LastModified Time Tobacco Smoking Status Former Smoker QUIT IN 1999 Stacey Brenden [facility] 01/23/2023 16:10:05 What Is Your Level Of Caffeine Consumption? Heavy 1 CUP OF COFFEE DAILY AND 2 DIET SODAS (16OZ) DAILY [email or web address] Information not available 01/23/2023 Sex: Unknown Functional Status Question Answer Note LastModified by Organization D etails LastModified Time What is your level of alcohol consumption? None [email or web address] Information not available 01/23/2023 Mental Status None recorded. Family History Nothing Reported. Medical History Condition Response Diabetes Y Arthritis N Congestive Heart Failure (CHF) N Cancer N Stroke N Hypertension Y COPD N Asthma N Kidney Disease N Gynecological HistoryNo gynecological history recorded. Obstetrics History GPAL:G 0 P 0 0 0 0 Past Encounters Encounter ID Performer Location Encounter Start Date Encounter Closed Date Diagnosis/Indication Diagnosis SNOMED-CT Code Diagnosis ICD10 Code Diagnosis Note [id number] Myriam Hein-Nomi er, MAIL OPENER PS_Provid er Schedule [address] [place] [address] 01/23/2023 15:58:55 01/23/2023 16:44:18 Type 2 diabetes mellitus 75039429 E11.65 Essential hypertension 54846685 I10 Health Concerns Section Related Observation LastModified by Organization Detai ls LastModified Time None Recorded Concern Status LastModified by Organization Details LastModified Time None Recorded Advance Directives Directive None Recorded Payers Insurance Date Sequence Insurance Name Policy Number Policy Vieira Covered Member ID Vieira Member ID Guarantor Name 04/16/2023 1 [place] Dominga L Duglas [id number] Dominga Duglas 04/16/2023 1 [facility] (MEDICARE SUPPLEMENT) Dominga Duglas [id number] Dominga Towner 04/16/2023 [place] Dominga L Towner [id number] Dominga Towner 09/13/2023 2 [facility] (MEDICARE SUPPLEMENT) Dominga Duglas [id number] Dominga Towner Notes Date Note Type Note Provider Name and Address Organization Details Recorded Time 01/23/2023 text/html DiabetesReported bypatient.Review finger sticks:fastin-170 Control:treated with diet and oral medications; hemoglobin A1C has been greater than 9; hemoglobin A1C goal is less than 6.5 Compliance:compliant with medications; compliant with follow-up visits; compliant with home glucose monitoring;noncomplian t with physical activity Self Care:seeing eye doctor regularly;not monitoring home glucose Associated Symptoms:no dizziness; no numbness of feet; no fatigue; no paresthesias;headaches Acute Complications:admitted for other direct diabetic complication: No Chronic Complications:diabetic neuropathy: No; hypertension: Yes; hyperlipidemia: No; last ophthalmic examination:2022 Comorbidities:stroke: NoHypertension IM/FMReported bypatient.Severity:sta ge 2 (>140/>90 mmHg); 170/80 Alleviating Factors:relieved with rest; medication; loop diuretic Self Care:non-smoker; limiting alcohol intake; blood pressure goal: 130/80; using a thiazide diuretic; using an RADHA inhibitor;sedentary Associated Symptoms:no fatigue; no palpitations; no tachycardia;shortness of breath;headaches Risk Factorsdiabetes; obesity [place] Location[place] Location: HomeSession Start Time: 4:31 pmSession End Time: 4:46 pmPatient Gives Verbal Consent for this Visit: YesCC: HTN and DMOngoing Issues: Myriam Jorgensen NP [address], [place], [address], [facility] 01/23/2023 16:44:11 OBGyn Episode No OBEpisode recorded.
--- OUTSIDE RECORDS SUMMARY | 2024-09-17 13:44 | XMS_ITS | Encounter Summary ---
Author Organization [employer] ([place], [place], [place], [place]) Address [address] [place] [address] Care Team Providers Care Makeup Sales Advisor Name Role Phone Unavailable Primary Care Provider Unavailabl e Encounter Details Date Type Department Care Team (Late st Contact Info) Description 04/24/2019 Transcribed Document [facility] [place] Medicine [facility] [place] [address] ProviderLexi MD [address] [place] [address] Social History Tobacco Use Types [...] - Lexi ProviderMD - 04/24/2019 11:06 AM BULK TRUCK DRIVER Patient: TAY FONSECA Age: 73 Years Sex: [...] small LE; urine culture shows contamination only. Electronically signed by Meghan Carney Conversion Director Of Employer Services [employer] at 07/02/2022 5:13 PM CDT documented in this encounter Plan of Treatment Not on file documented as of this encounter Visit Diagnoses Not on filedocumented in this encounter
--- OUTSIDE RECORDS SUMMARY | 2024-09-17 13:44 | XMS_ITS | Encounter Summary ---
Author Organization [employer] ([place], [place], [place], [place]) Address [address] [place] [address] Care Team Providers Care Completion Manager Name Role Phone Unavailable Primary Care Provider Unavailabl e Encounter Details Date Type Department Care Team (Late st Contact Info) Description 05/25/2019 Transcribed Document [facility] Radiology [address] [place] [address] Alba River MD [address] [place] [address] Social History Tobacco Use Types Packs/Day [...] on 05/12/2019 Documented in Lab Results Review CDS/Loans Officer Signature: Donovan Nunes Phone #: [phone] Extn [id number] Date/Time: 05/25/2019 09:40 This is a permanent part of the Medical Record Q54 2019 [facility] Updated: documented in this encounter Plan of Treatment Not on file documented as of this encounter Visit Diagnoses Not on filedocumented in this encounter
--- OUTSIDE RECORDS SUMMARY | 2024-09-17 13:44 | XMS_ITS | Encounter Summary ---
Author Organization [employer] ([place], [place], [place], [place]) Address [address] [place] [address] Care Team Providers Care Epitaxial Reactor Operator Name Role Phone Unavailable Primary Care Provider Unavailabl e Encounter Details Date Type Department Care Team (Late st Contact Info) Description 05/12/2019 Transcribed Document [facility] [place] [address] [place] [address] ProviderLexi MD [address] [place] [address] Social History Tobacco Use Types [...] - Historical ProviderMD - 05/12/2019 9:28 AM GED INSTRUCTOR Event Note Entered On: 05/12/2019 9:29 EST Performed On: 05/12/2019 9:28 EST by Cecile Wright RN Event Note Event Date/Time : 05/12/2019 9:28 EST Event Location : Other: pre-op Event Details : Other: test dose ancef Description of Event : Test dose ancef completed. Pt denies hives or any reactions to antibiotic at this time. Cecile Wright RN - 05/12/2019 9:28 EST Electronically signed by Meghan Carney Conversion Hoisting Engineer Pile Driving Cerner at 07/02/2022 4:54 PM CDT documented in this encounter Plan of Treatment Not on file documented as of this encounter Visit Diagnoses Not on filedocumented in this encounter
--- OUTSIDE RECORDS SUMMARY | 2024-09-17 13:44 | XMS_ITS | Encounter Summary ---
Author Organization [employer] ([place], [place], [place], [place]) Address [address] [place] [address] Care Team Providers Care Relay Shop Tester Name Role Phone Unavailable Primary Care Provider Unavailabl e Encounter Details Date Type Department Care Team (Late st Contact Info) Description 05/12/2019 Transcribed Document [facility] [place] [facility] [place] [address] ProviderLexi MD [address] [place] [address] Social History Tobacco Use Types [...] - Historical ProviderMD - 05/12/2019 7:21 AM BAND MAKER Patient: TAY FONSECA Age: 73 Years Sex: [...] tab daily Gabapentin 300mg 1 tab QHS documented in this encounter Plan of Treatment Not on file documented as of this encounter Visit Diagnoses Not on filedocumented in this encounter
--- OUTSIDE RECORDS SUMMARY | 2024-09-17 13:44 | XMS_ITS | Referral Summary ---
Author Organization [facility] Address [address] [place] [address] Phone Care Team Providers Care Plant Taxonomist Name Role Phone Pcp, Pending Only MD Primary Care Provider [phone] Allergies Active Allergy Reactions Criticality Noted Date [...] Not on file Insurance MEDICARE on file [facility] SUPPLEMENT Member Subscriber Plan / Payer ( fective 2012-Present) Name:Dominga Ardon Relation to Subscriber:Self Name:Dominga Ardon Payer ID:[id number] (NAIC) Group ID:Not on file Type:Indemnity Address: [place] [id number] MEDICARE on file [facility] SUPPLEMENT Care Teams Plant Taxonomist Relationship Specialty Start Date End Date Pcp, Pending Only, [place] [address] PCP - General Internal Medicine 01/05/13
--- OUTSIDE RECORDS SUMMARY | 2024-09-17 13:44 | XMS_ITS | Encounter Summary ---
Author Organization [employer] ([place], [place], [place], [place]) Address [address] [place] [address] Care Team Providers Care Risk Assessment Consultant Name Role Phone Unavailable Primary Care Provider Unavailabl e Encounter Details Date Type Department Care Team (Late st Contact Info) Description 05/12/2019 Transcribed Document [facility] [place] Family Medicine [address] [place] [address] ProviderLexi MD [address] [place] [address] Social History Tobacco Use Types [...] - Historical ProviderMD - 05/12/2019 8:17 AM AUTOMOTIVE LOT ATTENDANT Pre Procedure Adult Entered On: 05/12/2019 8:24 EST Performed On: 05/12/2019 8:17 EST by Cecile Wright RN Height and Weight, Clinical Dosing Height Source : Stated Height Entry Format : [place] Height, Feet : 5 ft(Converted to: 152 cm, 60 Inch) Height, Inches : 2 Inch(Converted to: 0 ft 2 Inch, 5.08 cm) Clinical Height : 157.48 cm Weight Source : Standing scale Weight Entry Format : [place] Clinical Dosing Weight : 107.27 kg Weight, Pounds : 236 lb Body Surface Area (BSA) : 2.05 m2 Body Mass Index : 43.3 kg/m2 (>HHI) Ponder Body Weight : 50 kg Cecile Wright [...] Cecile Wright RN - 05/12/2019 8:17 EST [place] Suicide Severity Rating Scale (C-SSRS) CSSRS Past [...] Any Spiritual/Cultural Needs or Requests : Yes Sabianism Preference : Sikhism Cecile Wright RN - 05/12/2019 8:17 EST [...] Obtained From : Patient Primary Language : Guyanese Preferred Communication Mode : Verbal Communication Barrier [...] Scale Risk Level : 25-45 Medium Risk [place] Fall Interventions : Adequate lighting, Assistive devices [...] the text rendition version of the form. Crystal Coma Crystal Best Motor Response : Obey commands Crystal Best Verbal Response : Oriented Humble Eye Opening Response : Spontaneous Crystal Coma Score : 15 Cecile Wright RN - 05/12/2019 8:17 EST Electronically signed by Meghan Carney Conversion Didactic Program In Dietetics Director [place] at 07/02/2022 5:04 PM CDT documented in this encounter Plan of Treatment Not on file documented as of this encounter Visit Diagnoses Not on filedocumented in this encounter
--- OUTSIDE RECORDS SUMMARY | 2024-09-17 13:44 | XMS_ITS | Encounter Summary ---
Author Organization [employer] ([place], [place], [place], [place]) Address [address] [place] [address] Care Team Providers Care Slab Off Mill Tender Name Role Phone Unavailable Primary Care Provider Unavailabl e Encounter Details Date Type Department Care Team (Late st Contact Info) Description 05/12/2019 Transcribed Document [facility] [place] Family Medicine [address] [place] [address] ProviderLexi MD [address] [place] [address] Social History Tobacco Use Types [...] Conversion Note - Historical ProviderMD - 05/12/2019 3:07 PM IP/MOSAIC TECHNICIAN Treatment Intervention, PT Entered On: 05/15/2019 10:15 EST Performed On: 05/15/2019 9:03 EST by MARIELOS HUFFMAN, RESPIRATORY COORDINATOR General Information, PT Visit Type, PT : [...] Fall prevention measures, high risk MARIELOS HUFFMAN, RESPIRATORY COORDINATOR - 05/15/2019 10:01 EST General Status Patient [...] EST Treatment Time : 23 Minute(s) MARIELOS HUFFMAN, RESPIRATORY COORDINATOR - 05/15/2019 10:01 EST Edu Topics Physical [...] Plan/Goals Established w Patient : Yes MARIELOS HUFFMAN, TAMMY - 05/15/2019 10:01 EST Longterm Goals Other PT LTG Grid [...] rehab setting per CM today MARIELOS HUFFMAN, RESPIRATORY COORDINATOR - 05/15/2019 10:01 EST MARIELOS HUFFMAN, RESPIRATORY COORDINATOR - 05/15/2019 10:01 EST MARIELOS HUFFMAN, RESPIRATORY COORDINATOR - 05/15/2019 10:01 EST MARIELOS HUFFMAN, RESPIRATORY COORDINATOR - 05/15/2019 10:01 EST Treatment Note Subjective [...] for Treatment : Cont POC. MARIELOS HUFFMAN, RESPIRATORY COORDINATOR - 05/15/2019 10:01 EST Pain Assessment Pain Scaled Used : FACES Pain Score Pre-Intervention : 4 MARIELOS HUFFMAN, RESPIRATORY COORDINATOR - 05/15/2019 10:01 EST Image 1 - Images currently included in the form version of this document have not been included in the text rendition version of the form. [place] PT Charges RESPIRATORY COORDINATOR PT Therap. Exercise 15 min-RESPIRATORY COORDINATOR : 2 MARIELOS HUFFMAN, RESPIRATORY COORDINATOR - 05/15/2019 10:01 EST documented in this encounter Plan of Treatment Not on file documented as of this encounter Visit Diagnoses Not on filedocumented in this encounter
--- OUTSIDE RECORDS SUMMARY | 2024-09-17 13:44 | XMS_ITS | Encounter Summary ---
Author Organization [employer] ([place], [place], [place], [place]) Address [address] [place] [address] Care Team Providers Care Plastics Technician Name Role Phone Unavailable Primary Care Provider Unavailabl e Encounter Details Date Type Department Care Team (Late st Contact Info) Description 05/16/2019 Transcribed Document [facility] [place] [address] [place] [address] ProviderLexi MD [address] [place] [address] Social History Tobacco Use Types [...] Historical ProviderMD - 05/16/2019 1:00 AM SUPERVISOR MICROFILM DUPLICATING UNIT Pain Assessment Entered On: 05/16/2019 4:23 EST [...]
--- OUTSIDE RECORDS SUMMARY | 2024-09-17 13:44 | XMS_ITS | Encounter Summary ---
Author Organization [employer] ([place], [place], [place], [place]) Address [address] [place] [address] Care Team Providers Care Lidder Name Role Phone Unavailable Primary Care Provider Unavailabl e Encounter Details Date Type Department Care Team (Late st Contact Info) Description 05/13/2019 Transcribed Document [facility] [place] [address] [place] [address] ProviderLexi MD [address] [place] [address] Social History Tobacco Use Types [...] - Historical ProviderMD - 05/13/2019 8:00 AM ENVIRONMENTAL FIELD OFFICE MANAGER Pain Assessment Entered On: 05/13/2019 9:18 EST [...]
--- OUTSIDE RECORDS SUMMARY | 2024-09-17 13:44 | XMS_ITS | Encounter Summary ---
Author Organization [employer] ([place], [place], [place], [place]) Address [address] [place] [address] Care Team Providers Care Mine Captain Name Role Phone Unavailable Primary Care Provider Unavailabl e Encounter Details Date Type Department Care Team (Late st Contact Info) Description 05/12/2019 Transcribed Document [facility] [place] [address] [place] [address] ProviderLexi MD [address] [place] [address] Social History Tobacco Use Types [...] Conversion Note - Historical ProviderMD - 05/12/2019 2:48 PM DRUM PLATER Treatment Intervention, OT Entered On: 05/16/2019 14:44 [...] Place : Fall prevention measures, high risk YAS RAMON OTR/L - 05/16/2019 14:36 EST General Status Patient Received Status : Up in chair Treatment Start Time : 05/16/2019 9:30 EST Patient Left Status : Up in chair RN/PCT Informed Comment : RN ok ed. Client agrees to tx. Treatment End Time : 05/16/2019 9:46 EST Treatment Time : 16 Minute(s) Actual Treatment Time : 16 Minute(s) RAMON SORENSON OTR/Brittany - 05/16/2019 14:36 EST Self Care/Home Management, OT Self Care/Home Management Comment, OT : client set-up A with toileting RAMON SORENSON OTR/Brittany - 05/16/2019 14:36 EST Functional Mobility Mobility [...] Tx Plan/Goals Established w Patient : Yes PIYUSHRAMON GARCIA OTR/Brittany - 05/16/2019 14:36 EST Fashion Model Goals, OT Other LTG Grid Goal #1 [...] Pain Score Post-Intervention. : 2 RAMON SORENSON OTR/Brittany - 05/16/2019 14:36 EST Image 1 - [...]
--- OUTSIDE RECORDS SUMMARY | 2024-09-17 13:44 | XMS_ITS | Clinical Summary ---
Author Organization [employer] ([place], [place], [place], [place]) Address [address] [place] [address] Care Team Providers Care Steward/Stewardess Chief Cargo Vessel Name Role Phone Unavailable Primary Care Provider [...]
--- OUTSIDE RECORDS SUMMARY | 2024-09-17 13:44 | XMS_ITS | Referral Summary ---
Author Organization [email or web address] ([place], [place], [place], [place]) Address [address] [place] [address] Care Team Providers Care Shipping And Receiving Name Role Phone Unavailable Primary Care Provider [...]
--- OUTSIDE RECORDS SUMMARY | 2024-09-17 13:44 | XMS_ITS | Encounter Summary ---
Author Organization [address] ([place], [place], [place], [place]) Address [address] [place] [address] Care Team Providers Care Manager Of Organizational Development Name Role Phone Unavailable Primary Care Provider Unavailabl e Encounter Details Date Type Department Care Team (Late st Contact Info) Description 05/14/2019 Transcribed Document [facility] [place] Family Medicine [address] [place] [address] ProviderLexi MD [address] [place] [address] Social History Tobacco Use Types [...] - Historical ProviderMD - 05/14/2019 5:00 AM TARE WEIGHER Chart Check - Review Order Profile Entered On: 05/14/2019 6:35 EST Performed On: 05/14/2019 5:00 EST by BORIS OVALLE, Scientific Specialist-Nursing Chart Check Powerplans Initiated/Discontinued as Appropriate : Yes All Active Orders Reviewed : Yes BORIS OVALLE, Scientific Specialist-Nursing - 05/14/2019 6:34 EST Electronically signed by Angelika [facility] Conversion Specialty Plant Supervisor Cerner at 07/02/2022 4:55 PM CDT documented in this encounter Plan of Treatment Not on file documented as of this encounter Visit Diagnoses Not on filedocumented in this encounter
--- OUTSIDE RECORDS SUMMARY | 2024-09-17 13:44 | XMS_ITS | Encounter Summary ---
Author Organization [employer] ([place], [place], [place], [place]) Address [address] [place] [address] Care Team Providers Care Chain Person Name Role Phone Unavailable Primary Care Provider Unavailabl e Encounter Details Date Type Department Care Team (Late st Contact Info) Description 05/12/2019 Transcribed Document [facility] [place] Family Medicine [address] [place] [address] ProviderLexi MD [address] [place] [address] Social History Tobacco Use Types [...] - Historical ProviderMD - 05/12/2019 12:53 PM CUSTOMER SERVICE TECHNICIAN Evaluation, Occupational Therapy Entered On: 05/12/2019 14:47 EST Performed On: 05/12/2019 14:14 EST by ESPERANZA REYNA OTR/L General Information, OT Visit Type, OT : Initial evaluation Patient Orders : Order Date Order Ordering 05/12/2019 12:54 OT Evaluation and Treatment Ordered By: ROSIO JUDD MD-ORPatria 05/12/2019 12:54 OT Treatment Instructions Ordered By: ROSIO JUDD MD-ORT Active Diagnoses : No Qualifying Diagnoses Therapy Diagnosis, OT : reduced mobility Admission Date : 05/12/2019 04:49 Assisted by, OT : Physical Therapist Personal Devices : Personal Devices Dentures, upper, Dentures, lower Assistive Devices : Assistive Devices No Devices Recorded Precautions in Place : Fall prevention measures ESPERANZA REYNA OTR/L - 05/12/2019 14:33 EST General Status Patient [...] with Brace/Splint : No ESPERANZA REYNA OTR/Brittany - 05/12/2019 14:33 EST Functional Mobility Mobility Grid [...] Therapy : Verbalizes understanding ESPERANZA REYNA OTR/Brittany - 05/12/2019 14:33 EST Indication Assessment, OT Occupational [...] ESPERANZA REYNA OTR/Brittany - 05/12/2019 14:33 EST Rn Medicare Goals, OT Other LTG Grid Goal #1 Goal #2 Goal : Pt will complete ADL transfer with CGA, RW level. Pt will complete LB self care task with CGA, AE prn. Date to Meet : 05/18/2019 EST 05/18/2019 EST Goal Status : Initial goal Initial goal ESPERANZA REYNA OTR/Brittany - 05/12/2019 14:33 EST ESPERANZA REYNA OTR/Brittany [...] Continued Therapy at Discharge : Yes ESPERANZA REYNA, OTR/L - 05/12/2019 14:[address] [facility] OT Charges OT Selfcare/Hm Mgmt Ea 15 Min : 1 OT Eval Low Complexity : 1 ESPERANZA REYNA, OTR/L - 05/12/2019 14:33 EST Electronically signed by Interface, [facility] Conversion Commercial Lines Underwriter Cerner at 07/02/2022 4:58 PM CDT documented in this encounter Plan of Treatment Not on file documented as of this encounter Visit Diagnoses Not on filedocumented in this encounter
--- OUTSIDE RECORDS SUMMARY | 2024-09-17 13:44 | XMS_ITS | Encounter Summary ---
Author Organization [employer] ([place], [place], [place], [place]) Address [address] [place] [address] Care Team Providers Care Shoe Repairer Name Role Phone Unavailable Primary Care Provider Unavailabl e Encounter Details Date Type Department Care Team (Late st Contact Info) Description 04/27/2019 Transcribed Document [facility] [place] Family Medicine [address] [place] [address] ProviderLexi MD [address] [place] [address] Social History Tobacco Use [...] - Lexi ProviderMD - 04/27/2019 6:29 AM SYNTHETIC GEM PRESS OPERATOR Total Joints Assessment Entered On: 04/27/2019 6:30 EST Performed On: 04/27/2019 6:29 EST by Alyssia Ashraf RN Surgical Services JR. RICHARD Hip Survey 1. Going up or down stairs : Moderate 2. Walking on an uneven surface : Severe 3. Rising from sitting : Severe 4. Bending to floor/pepper picker an object : Severe 5. Lying [...]
--- OUTSIDE RECORDS SUMMARY | 2024-09-17 13:44 | XMS_ITS | Encounter Summary ---
Author Organization [employer] ([place], [place], [place], [place]) Address [address] [place] [address] Care Team Providers Care Coat Fitter Name Role Phone Unavailable Primary Care Provider Unavailabl e Encounter Details Date Type Department Care Team (Late st Contact Info) Description 05/12/2019 Transcribed Document [facility] [place] Family Medicine [address] [place] [address] ProviderLexi MD [address] [place] [address] Social History Tobacco Use Types [...] - Lexi ProviderMD - 05/12/2019 10:29 AM TIN WHIZ MACHINE OPERATOR KAYE Main OR PreOp Summary Primary Physician: ROSIO JUDD MD-ORT Finalized Date/Time: 05/19/19 10:37:26 Pt. Name: TAY FONSECA D.O.B./Sex: 1945 Female Med Rec #: [id number] Physician: ROSIO JUDD MD-ORT Financial #: [id number] Pt. Type: I Room/Bed: 412/1 Admit/Disch: 05/13/19 09:44:00 - 05/16/19 14:56:00 Institution: [facility] [place] PreOp Case Times Entry 1 In Preop 05/12/19 07:15:00 Ready for Holding n/a Room Patient Ready for 05/12/19 09:00:00 Surgery Patient Out of Preop 05/12/19 09:50:00 Patient Out of n/a Holding Room Last Modified By: ROS HUNTER 05/19/19 10:37:25 SJRoni PreOp Case Times Audit 05/19/19 10:37:25 Slab Tripper: [id number] Modifier: [email or web address] <+> 1 Patient Out of Preop Finalized By: ROS HUNTER Document Signatures Signed By: ROS HUNTER 05/19/19 10:37 Electronically signed by Angelika [facility] Conversion Venetian Blind Assembler Cerner at 07/02/2022 4:50 PM CDT documented in this encounter Plan of Treatment Not on file documented as of this encounter Visit Diagnoses Not on filedocumented in this encounter
--- OUTSIDE RECORDS SUMMARY | 2024-09-17 13:44 | XMS_ITS | Encounter Summary ---
Author Organization [employer] ([place], [place], [place], [place]) Address [address] [place] [address] Care Team Providers Care Case Aide Name Role Phone Unavailable Primary Care Provider Unavailabl e Encounter Details Date Type Department Care Team (Late st Contact Info) Description 05/12/2019 Transcribed Document [facility] [place] Family Medicine [address] [place] [address] ProviderLexi MD [address] [place] [address] Social History Tobacco Use Types [...] Conversion Note - Historical ProviderMD - 05/12/2019 9:00 AM HEALTH ANALYTICS CONSULTANT Event Note Entered On: 05/12/2019 9:12 EST [...]
--- OUTSIDE RECORDS SUMMARY | 2024-09-17 13:44 | XMS_ITS | Encounter Summary ---
Author Organization [employer] ([place], [place], [place], [place]) Address [address] [place] [address] Care Team Providers Care Appliance Adjuster Name Role Phone Unavailable Primary Care Provider Unavailabl e Encounter Details Date Type Department Care Team (Late st Contact Info) Description 04/24/2019 Transcribed Document [facility] [place] Family Medicine [address] [place] [address] ProviderLexi MD [address] [place] [address] Social History Tobacco Use Types [...] - Historical ProviderMD - 04/24/2019 12:47 PM PHYSICIAN SPECIALIST Event Note Entered On: 04/24/2019 12:49 EST [...]
--- OUTSIDE RECORDS SUMMARY | 2024-09-17 13:44 | XMS_ITS | Encounter Summary ---
Author Organization [employer] ([place], [place], [place], [place]) Address [address] [place] [address] Care Team Providers Care Dog Food Dough Mixer Name Role Phone Unavailable Primary Care Provider Unavailabl e Encounter Details Date Type Department Care Team (Late st Contact Info) Description 05/13/2019 Transcribed Document [facility] [place] Family Medicine [address] [place] [address] ProviderLexi MD [address] [place] [address] Social History Tobacco Use Types [...] - Historical ProviderMD - 05/13/2019 10:06 AM SUTURE WINDER HAND On Going Discharge Planning Entered On: 05/13/2019 10:07 EST Performed On: 05/13/2019 10:06 EST by SANDRA DEL ANGEL, Care Management-Sound Person Care Management Progress Note Discharge Arrangements : Patient Post-Acute Information Patient Name: TAY FONSECA Gender: Female : [birth year] Age: 73 Years No Post-Acute Placement(s) Listed No Post-Acute Service(s) Listed No [place] Referral(s) Listed Discharge Options Discussed with Patient : Short term rehabilitation SANDRA DEL ANGEL, Care Management-Sound Person - 05/13/2019 10:06 EST Narrative Progress Note Narrative Progress Note : Pt has been changed to in pt status per IPAS. referrals sent out via [facility] per pts choice. SANDRA DEL ANGEL, Care Management-Sound Person - 05/13/2019 10:06 EST documented in this encounter Plan of Treatment Not on file documented as of this encounter Visit Diagnoses Not on filedocumented in this encounter
--- OUTSIDE RECORDS SUMMARY | 2024-09-17 13:44 | XMS_ITS | Continuity of Care Document ---
Author Organization [facility] Address [address] [place] [address] Care Team Providers Care Service Delivery Consultant Name Role Phone LILIAN MARINA Primary Care Provider Assessment No assessment recorded. Plan of Treatment Reminders Order Date Submit Date Provider Last Modified By Organization Details Last Modified Time Details Appointments OV EST 30 2024 09:00A M Leanna Casey PA-C Not available Not available Not available Lab CBC w/ auto diff 2024 025 OBI Not available 09/02/2024 10:42:36 CMP, serum or plasma 2024 025 OBI Not available 09/02/2024 10:28:32 ldh, serum or plasma 2024 025 OBI Not available 09/02/2024 10:46:50 Referral None recorded. Procedures None recorded. Surgeries None recorded. Imaging CT, chest + abdomen + pelvis, w/ contrast - iv contrast only 2024 025 [id number] [facility] (Centralized Scheduling), [address], [place], [address], 09/02/2024 09:59:11 Medication Orders None recorded. Patient TargetsNo targets recorded. Patient InstructionsNo instructions recorded. Reason for Referral None Reported. Problems Name Problem SNOMED Code Status Onset Date Resolution Date Notes Provider Name and Address Organization Details Recorded Time Anemia 149171868 Active Amy short [place] Iker BEARDEN [facility] [place] 10:29:57 Abdominal mass 467973095 Active MCKINLEY Antunez [facility] [place] 4 10:29:57 Lymphadenopath y 26711619 Active MCKINLEY Antunez [facility] [place] 4 10:29:57 Hyperlipidemia 27128673 Active MCKINLEY Antunez [facility] [place] 4 10:29:57 Fracture of pelvis 38045180 Active MCKINLEY Antunez [facility] [place] 4 10:29:57 Problem Notes None recorded. Procedures Surgical History Date Name Laterality Status Provider Name and Address Organization Details Recorded Time hysterectomy completed Amy SEN [facility] [place] 03/20/2023 10:33:17 banding of varix of stomach completed Amy SEN [facility] [place] 03/20/2023 10:34:08 procedure on ankle completed Amy SEN [facility] [place] 06/03/2023 13:59:58 Imaging Results None recorded. Procedure Notes None recorded. Medical Equipment None Reported. Allergies Allergen ID Allergen Name Allergen Category Reaction Reaction Severity Criticality Documentation Date Start Date Code Code System Note Provider Name and Address Organization Details Recorded Time 808069 Product containin g penicilli n (product) medicatio n Not available Not available Not available 03/20/2023 13033 8001 SNOMED Other react ions and sever ities : 'Adve rse react ion to subst ance' . MCKINLEY Antunez [facility] [place] 4 10:29:56 Medications Name Sig Start Date [...] Available Not Available Not Available Vitamin D3 96373 active Not Available Not Av ailable Not [...] Not Avai lable Vitals Date Recorded Body weight Oxygen saturation Oxygen saturation in Arterial blood by Pulse oximetry Body temperature Heart rate Respiratory rate Systolic And Diastolic Provider Name and Address Organization Details Last Updated DateTime 20279.5 1 g 95 % 95 % 98.3 [degF] 102 /min 18 /min 143/60 mm[Hg] Amy Chan [facility] [place] 5 10:01:58 Social History Question Answer Notes LastModified by [employer] ion Details LastModified Time Tobacco Smoking Status Former Smoker Amy Chan [facility] [place] 03/20/2023 10:32:44 What Is Your Level Of Caffeine Consumption? None [email or web address] Information not available 03/20/2023 When Did You Quit Smoking? 16+yearssinc elastcigaret te [email or web address] Information not available 03/20/2023 What Was The Date Of Your Most Recent Tobacco Screening? 06/03/2023 [email or web address] Information not available 06/03/2023 At What Age Did You Start Smoking Tobacco? 22 Information not available 03/20/2023 Has Tobacco Cessation Counseling Been Provided? No [email or web address] Information not available 03/20/2023 How Many Years Have You Smoked Tobacco? 23 [email or web address] Information not available 03/20/2023 Sex: Unknown Functional Status Question Answer Note LastModified by Organizat ion Details LastModified Time Do you use any illicit or recreational drugs? No [email or web address] Information not available 03/20/2023 Do you or have you ever used any other forms of tobacco or nicotine? No [email or web address] Information not available 03/20/2023 What is your level of alcohol consumption? None [email or web address] Information not available 03/20/2023 Mental Status None recorded. Family History Relationship Description Onset Age of this Age Resolved Age Notes LastModified by Organization Details LastModified Time Father Carcinoma of prostate [email or web address] Not available 06/02 13:57:10 Mother Malignant neoplasm of female breast [email or web address] Not available 06/02 13:57:19 Sister Malignant neoplasm of female breast BC twice .... chemo since 2018, under [facility] [email or web address] Not available 06/03/2023 13:57:59 Sister Malignant tumor of thyroid gland Not available 06/02 13:58:23 Sister Primary malignant neoplasm of both ovaries [email or web address] Not available 13:58:50 Medical History No medical history recorded. Gynecological HistoryNo gynecological history recorded. Obstetrics History GPAL:G 0 P 0 0 0 0 Immunizations Vaccine Type Date Status Note Provider Nam e and Address Organization Details Recorded Time Influenza, high-dose, quadrivalent, PF 02/26/2023 completed Amy short[place] [facility] [place] 04/12/2023 08:52:49 COVID-19, mRNA, LNP-S, PF, 100 mcg/0.5mL dose or 50 mcg/0.25mL dose 04/27/2020 completed Amy short, [place] [facility] [place] 04/12/2023 08:52:49 COVID-19, mRNA, LNP-S, PF, 100 mcg/0.5mL dose or 50 mcg/0.25mL dose 05/25/2020 selene short [place] - [facility] [place] 04/12/2023 08:52:49 COVID-19, mRNA, LNP-S, PF, 100 mcg/0.5mL dose or 50 mcg/0.25mL dose 12/28/2020 selene short [place] - [facility] [place] 04/12/2023 08:52:49 Past Encounters Encounter ID Performer Location Encounter Start Date Encounter Closed Date Diagnosis/Indication Diagnosis SNOMED-CT Code Diagnosis ICD10 Code Diagnosis Note [id number] Enrique Montiel MD [facility] [address] [place] [address] 09/02/2024 09:29:42 09/02/2024 10:11:58 Antineoplastic chemotherapy regimen 559791682 Z51.11 Week 1 of rituximab on April [...] to monitor for toxicity. Follicular lymphoma [address] scan of the abdomen pelvis with contrast with findings of mesenteric periaortic pericaval adenopathy noted. Lymph nodes measuring up to 2 cm were seen. Ill-define d hypodense mesenteric mass that is 8.4 x 11.0 x 10.0 cm likely representi ng celine conglomera te. This is inferior to the pancreas and appears to encase the superior mesenteric artery. Postoperat dudlye changes noted from previous lap band. Spleen [...] 4.7. Hemoglobin 13.6 hematocrit 41.2. Platelet count 229011. Patient completed 4 weeks of rituximab therapy. [...] labs today. 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 Findings follicular lymphoma that is low grade (1/2). Flow cytometry positive for CD10. Cells positive for CD20 as well as CD19. Negative for CD 5 and negative for CD 38. Biopsy site was retroperit rivera lymph node. Nausea 911684922 R11.0 As needed Zofran and Phenergan prescribed . Will follow-up Coronary arteriosclerosis 43968051 I25.10 Patient had a STEMI and had cardiac stents placed June 2023. Continues to follow with Cardiology . History of anemia 234946 002 Z86.2 Labs during hospital stay in late February 2023 with findings of iron deficiency anemia. Patient received infusional iron with improvemen t. Labs on March 03, 2024 with hemoglobin normal at 13.5. Will follow up labs Health Concerns Section Related Observation LastModified by Organization Detai ls LastModified Time None Recorded Concern Status LastModified by Organization Details LastModified Time None Recorded Payers Encounter Date Sequence Insurance Name Policy Number Policy Vieira Covered Member ID Vieira Member ID Guarantor Name 09/02/2024 1 [place] Dominga L Duglas [id number] Dominga Westlake 09/02/2024 2 [employer] (MEDICARE SUPPLEMENT) Dominga Westlake [id number] Dominga Westlake Notes Date Note Type Note Provider Name and Address Organization Details Recorded Time 09/02/2024 text/html 78 yo F returns for [...] blood count 4.7. Hemoglobin 13.4. Platelet count 565739. Absolute neutrophil count 6.8. Uric acid in [...] 4.7. Hemoglobin 13.6 hematocrit 41.2. Platelet count 082711. Patient completed 4 weeks of rituximab therapy. [...] December/January 2025. Will follow-up labs today. Enrique Montiel MD [address], [place], [address], [place] [facility] [place] [facility] [place] 09/02/2024 09:56:56 OBGyn Episode No OBEpisode recorded.
--- OUTSIDE RECORDS SUMMARY | 2024-09-17 13:44 | XMS_ITS | Encounter Summary ---
Author Organization [employer] ([place], [place], [place], [place]) Address [address] [place] [address] Care Team Providers Care Paper Conservator Name Role Phone Unavailable Primary Care Provider Unavailabl e Encounter Details Date Type Department Care Team (Late st Contact Info) Description 05/04/[address] [facility] [place] Family Medicine [address] [place] [address] ProviderLexi MD [address] [place] [address] Social History Tobacco Use Types [...] - Historical ProviderMD - 05/04/2019 1:10 PM CERTIFIED GREEN BUILDING ENGINEER Orthopedic Nurse Navigator Entered On: 05/04/2019 13:11 EST Performed On: 05/04/2019 13:10 EST by Alyssia Ashraf Nurse senior receptionist Nurse Navigator Assessment Does Patient Have a Walker? : No Joint Navigator Assessment Note : Patient returned call. Pt is wanting to go to the [place] bc she lives alone and has stairs. Pt indicates she was supposed to have surgery last September with another , and went to the class at that time. Alyssia Ashraf Nurse KOBE - 05/04/2019 13:10 EST Electronically signed by Angelika [facility] Conversion Leaf Blender Cerner at 07/02/2022 5:05 PM CDT documented in this encounter Plan of Treatment Not on file documented as of this encounter Visit Diagnoses Not on filedocumented in this encounter
--- OUTSIDE RECORDS SUMMARY | 2024-09-17 13:44 | XMS_ITS | Encounter Summary ---
Author Organization [employer] ([place], [place], [place], [place]) Address [address] [place] [address] Care Team Providers Care Tumor Registrar Name Role Phone Unavailable Primary Care Provider Unavailabl e Encounter Details Date Type Department Care Team (Late st Contact Info) Description 05/12/2019 Transcribed Document [facility] [address] [place] [address] ProviderLexi MD [address] [place] [address] Social History Tobacco Use Types [...] - Lexi ProviderMD - 05/12/2019 10:29 AM DRIVER EDUCATION INSTRUCTOR KAYE Main OR IntraOp Summary Primary Physician: ROSIO JUDD MD-ORT Finalized Date/Time: 05/15/19 10:45:27 Pt. Name: TAY FONSECA Brittany /Sex: 1945 Female Med Rec #: [id number] Physician: ROSIO JUDD MD-ORT Financial #: [id number] Pt. Type: I Room/Bed: [facility]/ Admit/Disch: 05/13/19 09:44:00 - Institution: [facility] IntraOp Case Attendance Entry 1 Entry 2 Entry 3 Case Attendee ROSIO JUDD RENFROE, REBECCA, Biery, Jordyn A RN -ORT BUSINESS OBJECTS CONSULTANT-ANS Role Performed Surgeon/Proceduralist, BUSINESS OBJECTS CONSULTANT/Nurse Nuisance Wildlife Specialist Style Advisor, First First Time In 05/12/19 10:26:00 05/12/19 09:56:00 05/12/19 09:56:00 Time Out 05/12/19 11:25:00 05/12/19 11:51:00 05/12/19 11:31:00 Procedure Hip Total Anterior Hip Total Anterior Hip Total Anterior Approach Approach Approach Other Attendee Superficial Wound Closed By: Last Modified By: Gutierrez Pena, Gutierrez Salazar, Gutierrez Salazar RN 05/12/19 11:51:47 05/12/19 11:51:47 05/12/19 11:51:47 Entry 4 Entry 5 Entry 6 Case Attendee Juve Stubbs, Lelo Valenzuela, Production Control Pegboard Clerk Role Performed Scrub, First Scrub, Second Assistive Personnel Time In 05/12/19 09:56:00 05/12/19 09:56:00 05/12/19 09:56:00 Time Out 05/12/19 11:51:00 05/12/19 11:27:00 05/12/19 10:24:00 Procedure Hip Total Anterior Hip Total Anterior Hip Total Anterior Approach Approach Approach Other Attendee Superficial Wound Closed By: Last Modified By: Gutierrez Pena RN Biery, Jordyn A, Gutierrez Salazar RN 05/12/19 11:51:47 05/12/19 11:51:47 05/12/19 11:51:47 Entry 7 Entry 8 Entry 9 Case Attendee COLTON LINN, QIAN LÓPEZ, PAC OTHER, ATTENDEE Role Performed Neurology Tech, First Physician life enrichment assistant Vendor Time In 05/12/19 09:56:00 05/12/19 10:55:00 05/12/19 09:56:00 Time Out 05/12/19 11:02:00 05/12/19 11:51:00 05/12/19 11:27:00 Procedure Hip Total Anterior Hip Total Anterior Hip Total Anterior Approach Approach Approach Other Attendee HUAN SCHMIDT Superficial Wound Closed By: Last Modified By: Gutierrez Pena RN Biery, Jordyn A, RN Gutierrez Pena RN 05/12/19 11:51:47 05/12/19 11:51:47 05/12/19 11:51:47 Entry 10 Entry 11 Case Attendee DRAKE SALINAS SUSAN, RN Role Performed Director Of Agronomy Style Advisor, Second Time In 05/12/19 09:56:00 05/12/19 11:31:00 Time Out 05/12/19 11:27:00 05/12/19 11:51:00 Procedure Hip Total Anterior Hip Total Anterior Approach Approach Other Attendee Superficial Wound Closed By: Last Modified By: Gutierrez Pena RN Biery, Jordyn A, RN 05/12/19 11:51:47 05/12/19 11:51:47 [facility] IntraOp Case Attendance Audit 05/12/19 11:51:47 Car Park Attendant: JUAN C Modifier: JUAN C 1 <*> [...] Procedure Hip Total Anterior Approach 05/12/19 11:45:43 Car Park Attendant: JUAN C Modifier: JUAN C 3 <+> Time Out 3 <*> Procedure Hip Total Anterior Approach <+> 11 Case Attendee <+> 11 Role Performed <+> 11 Time In <+> 11 Procedure 05/12/19 11:27:30 Car Park Attendant: JUAN C Modifier: JUAN C 1 <+> Time Out 1 <*> Procedure Hip Total Anterior Approach 5 <+> Time Out 5 <*> Procedure Hip Total Anterior Approach 9 <+> Time Out 9 <*> Procedure Hip Total Anterior Approach 10 <+> Time Out 10 <*> Procedure Hip Total Anterior Approach 05/12/19 11:15:53 Car Park Attendant: JUAN C Modifier: JUAN C 6 <+> Time Out 6 <*> Procedure Hip Total Anterior Approach 7 <+> Time Out 7 <*> Procedure Hip Total Anterior Approach 05/12/19 10:55:31 Car Park Attendant: JUAN C Modifier: JORDYNBLAND 1 <*> Time In 05/12/19 09:56:00 1 <*> Procedure Hip Total Anterior Approach 05/12/19 10:55:17 Car Park Attendant: JUAN C Modifier: JORDYNBLAND 1 <+> Time In 1 <*> Procedure [...] Stop Time 05/12/19 11:44:00 Last Modified By: Gutierrez Pena RN 05/12/19 11:51:43 [facility] IntraOp Case Times Audit 05/12/19 11:51:43 Car Park Attendant: JUAN C Modifier: JORDYNBLAND <+> 1 Out Room Time <+> 1 Stop Time 05/12/19 11:45:46 Car Park Attendant: GUTIERREZBLRICCI Modifier: JORDYNBLAND <+> 1 Stop Time 05/12/19 10:29:48 Car Park Attendant: JUAN C Modifier: JORDYNBLAND <+> 1 Start Time [facility] IntraOp Cautery Entry 1 ESU Identification Cautery Type Monopolar ESU ID Number [id number] ID Type Hospital Number Cautery Settings Cut Setting 70 Coag Setting 70 ESU Grounding Pad Ground Pad Type Adult Grounding Pad Site Left thigh Grounding Pad Gutierrez Pena RN Applied By Grounding Pad Site Warm, dry and intact Skin Condition Before Cautery Grounding Pad Site Unchanged, Warm, dry Skin Condition and intact After Cautery Last Modified By: Gutierrez Pena RN 05/12/19 10:20:25 [facility] IntraOp Communication Entry 1 Communication To Family/Significant other Comment START Communication By Gutierrez Pena RN Date and Time 05/12/19 10:29:00 Last Modified By: Gutierrez Pena RN 05/12/19 10:34:27 [facility] IntraOp Counts [...] Juve Stubbs Mark (Scrub) Count Performed By Gutierrez Pena RN Biery, Jordyn A RN (RN) Last Modified By: Gutierrez Pena RN Biery, Jordyn A, RN 05/12/19 09:48:26 05/12/19 11:23:37 S[facility] IntraOp Counts Verification Audit 05/12/19 11:23:37 Car Park Attendant: JUAN C Modifier: JUAN C <+> 2 [...] MICHELLE ALVA RN (RN) Last Modified By: Gutierrez Pena RN 05/12/19 11:48:20 [facility] IntraOp Cultures and Spec Summary Entry 1 Cultrures and Specimens Specimen Ordered: Yes Test(s) Gross Analysis/Path-Lab Requested/Final Disposition Last Modified By: Gutierrez Pnea RN 05/12/19 09:48:34 [facility] IntraOp Cultures and Spec Summary Audit 05/12/19 09:48:34 Car Park Attendant: JUAN C Modifier: JUAN C <+> 1 Test(s) Requested/Final Disposition [facility] IntraOp Departure from OR Entry 1 Integumentary Assessment Transfer/Handoff Transfer to PACU Phase I Handoff Method Bedside/Face to face Post-op Transport Bed (including Via specialty) Patient Transport SAMUEL MONTERO, Accompanied by ARTIE LAWRENCE SUSAN, RN Last Modified By: Gutierrez Pena RN 05/12/19 11:48:56 [facility] IntraOp Drains and Tubes Entry 1 Device Type Hemovac Size MED. Drain/Tube Activity Inserted Drain/Tube Suction Not applicable Device Location RIGHT HIP Method of Drainage Compression Last Modified By: Gutierrez Pena RN 05/12/19 10:20:43 S[facility] IntraOp Dressing and Packing Entry 1 Type Dressing Location RIGHT HIP Wound Dressing Item Occlusive dressing, Skin Closure Glue Applied By QIAN WASHBURN, ARTEMIO Other Comments MEPILEX; DERMABOND Last Modified By: Gutierrez Pena RN 05/12/19 10:20:56 S[facility] IntraOp Fire Risk Assessment Entry 1 Fire Info Surgical Site or 0- No Incision Above the Xyphoid Open O2 Source 0- No (Mask or Cannula) Available Ignition 1- Yes (ESU, Laser, Light Source) Fire Risk 1 Assessment Score Fire Score Fire Risk Yes Assessment Complete Fire Risk Gutierrez Pena RN Assessment Verified By Fire Risk 05/12/19 09:48:00 Assessment Verified Date/Time Fire Risk High Risk Protocol Yes Implemented Standard Fire Yes Safety Precautions Followed Last Modified By: Gutierrez Pena RN 05/12/19 09:48:31 SJE IntraOp General Case [place] Stitcher 1 Case Information OR OR 10 SJE Case Level 1 Room Verified Yes Wound Class I - Clean Specialty SN Orthopedic Anesthesia Type General ASA Class 3 Diagnosis Preop Diagnosis DJD RIGHT HIP Postop Same As Preop No Postop Diagnosis DICTATED BY MD Last Modified By: Gutierrez Pena RN 05/12/19 10:21:09 SJE IntraOp Implant Log Entry 1 Entry 2 Entry 3 Type Implant (Synthetic) Implant (Synthetic) Implant (Synthetic) Implant Log Implant Type Hardware Hardware Hardware Tissue Implant Type Implant SHELL ACETAB 50MM 3 LINER LGCL CUP 54MM SZ STEM HIP ORIGIN SZ 13 Identification [id number] [id number] Description Implant Quantity 1 1 1 Implant Site RIGHT HIP RIGHT HIP RIGHT HIP Implant Identification Model Number Implant Identification Serial Number Implant [id number] Identification Lot Number Implant [employer] Paxeon Reconstruction Paxeon Reconstruction Identification [facility] Yeast Maker Name: Implant [id number] Identification Catalog Number Implant Size Implant Has an Yes Yes Yes Expiration Date Implant Expiration 12/16/23 04/17/24 01/16/24 Date Wasted Radioactive Material Time Implanted Tissue Implant Continue for Tissue Implant Documentation Tissue Identification Number Graft Prep Per Yeast Maker Instructions: Tissue Preparation Method: Reconstitution Solution: Reconstitution Solution Lot Number Reconstitution Solution Expiration Date: Thawing Solution Thawing Solution Lot Number Thawing Solution Expiration Date Preparation Materials, Other Preparation Materials, Other Lot Number Preparation Materials, Other Expiration Date Tissue Prepared/Processed By Yeast Maker Paperwork Completed Implant Type Comment Last Modified By: Gutierrez Pena RN Biery, Jordyn A, RN Biery, Jordyn A, RN 05/12/19 10:55:07 05/12/19 10:55:07 05/12/19 11:19:51 Entry 4 Type Implant (Synthetic) Implant Log Implant Type Hardware Tissue Implant Type Implant HEAD FEM CERC SZ 36MM Identification [id number] Description Implant Quantity 1 Implant Site RIGHT HIP Implant Identification Model Number Implant Identification Serial Number Implant [id number] Identification Lot Number Implant Paxeon Reconstruction Identification Yeast Maker Name: Implant [id number] Identification Catalog Number Implant Size Implant Has an Yes Expiration Date Implant Expiration 04/17/24 Date Wasted Radioactive Material Time Implanted Tissue Implant Continue for Tissue Implant Documentation Tissue Identification Number Graft Prep Per Yeast Maker Instructions: Tissue Preparation Method: Reconstitution Solution: Reconstitution Solution Lot Number Reconstitution Solution Expiration Date: Thawing Solution Thawing Solution Lot Number Thawing Solution Expiration Date Preparation Materials, Other Preparation Materials, Other Lot Number Preparation Materials, Other Expiration Date Tissue Prepared/Processed By Yeast Maker Paperwork Completed Implant Type Comment Last Modified By: Gutierrez Pena RN 05/12/19 11:19:51 SJE IntraOp Implant Log Audit 05/12/19 11:19:51 Car Park Attendant: JUAN C Modifier: JUAN C <+> 3 Implant Identification Description <+> 3 Implant Identification Lot Number <+> 3 Implant Identification Yeast Maker Name: <+> 3 Implant Expiration Date <+> 3 Implant Identification Catalog Number <+> 4 Implant Identification Description <+> 4 Implant Identification Lot Number <+> 4 Implant Identification Yeast Maker Name: <+> 4 Implant Expiration Date <+> 4 Implant Identification Catalog Number 05/12/19 10:55:07 Car Park Attendant: JUAN C Modifier: JUAN C <+> 1 Implant Identification Description <+> 1 Implant Identification Lot Number <+> 1 Implant Identification Yeast Maker Name: <+> 1 Implant Expiration Date <+> 1 Implant Identification Catalog Number <+> 2 Implant Identification Description <+> 2 Implant Identification Lot Number <+> 2 Implant Identification Yeast Maker Name: <+> 2 Implant Expiration Date <+> 2 Implant Identification Catalog Number SJE IntraOp Intraoperative Assessment Entry 1 Valid History / Yes Physical in Chart Preoperative Yes Checklist Reviewed/Evaluated Allergies Reviewed Yes Patient is Latex No Sensitive Isolation Not applicable Precautions Noted Skin Assessment Yes Verified Present Upon IVs Arrival to OR Last Modified By: Gutierrez Pena RN 05/12/19 10:21:14 S[facility] IntraOp Intraoperative Equipment Entry 1 Type Equipment Equipment Equipment Robel Suction System Setting HIGH Intraop Monitoring Antiembolic Devices Antiembolic Devices Sequential compression device, knee high Antiembolic Device Left Location Scopes Photo/Video Documentation Photo No Video No Last Modified By: Gutierrez Pena RN 05/12/19 10:21:22 S[facility] IntraOp Medication Admin Entry 1 Entry 2 Entry 3 Medication/Irrigant TRANEXAMIC ACID vancomycin 1Gm vial - CLONIDINE-10ML 1000MG/10 ML [id number] Combo Med List 1 - Combo Med Time Administered Route of TOPICAL; MIXED W/ 25ML TOPICAL INJECTION Administration NACL Dose Dose 1000 1 0.8 Unit of Measure mg gram ml Volume 10ML Administered By ROSIO JUDD, DUTCH, ROSIO, ROSIO JUDD MD-ORT -ORT -ORT Procedure Irrigation Irrigant Volume In Irrigant Volume Out Last Modified By: Gutierrez Pena, Gutierrez Salazar RN Biery, Jordyn A, RN 05/12/19 09:48:54 05/12/19 09:48:54 05/12/19 09:48:54 Entry 4 Entry 5 Entry 6 Medication/Irrigant Ketorolac 30mg/ml vial ROPIVICAINE 5% lidocaine 1% w/ epinephrine 1:100,000 20ml vial - [id number] Combo Med List 2 - Combo Med 3 - Combo Med 4 - Combo Med Time Administered Route of INJECTION INJECTION INJECTION Administration Dose Dose 1 25 23.2 Unit of Measure ml ml ml Volume Administered By ROSIO JUDD CHRISTENSEN, CHRISTIAN, CHRISTENSEN, CHRISTIAN, MD-ORT -ORT -ORT Procedure Irrigation Irrigant Volume In Irrigant Volume Out Last Modified By: Gutierrez Pena, Gutierrez Salazar RN Biery, Jordyn A, RN 05/12/19 09:48:54 05/12/19 09:48:55 05/12/19 09:48:55 SJE IntraOp Medication Admin Audit 05/12/19 09:48:55 Car Park Attendant: JUAN C Modifier: JUAN C <+> 5 [...] LINN CSA, SAMUEL MONTERO, JEANETH-ANS, Lelo Siddiqi, Production Control Pegboard Clerk, Gutierrez Pena, RN, FRANKY URRUTIA Position Verified Positioning Yes Verified by Anesthesia Positioning Yes Verified by Surgeon Last Modified By: Gutierrez Pena RN 05/12/19 10:22:16 SJE IntraOp Sign [...] Warming Measures Yes Taken Last Modified By: Gutierrez Pena RN 05/12/19 10:22:20 SJE Intra Op [...] Elements Complete? RN Sign Out MICHELLE ALVA, RN Signature RN Sign Out 05/12/19 11:51:00 Signature [...] related to extraneous objects Last Modified By: Gutierrez Pena RN 05/12/19 11:51:55 SJE Intra Op Sign Out Audit 05/12/19 11:51:55 Car Park Attendant: JUAN C Modifier: JUAN C 1 <*> RN Sign Out Signature Gutierrez Pena RN 1 <+> RN Sign Out Signature Date/Time SJE IntraOp Skin Prep Entry 1 Procedure Hip Total Anterior Approach Prescribed Yes Pre-Surgical Prep Completed Prep Area RIGHT HIP; WIPE WITH ALCOHOL FIRST, THEN DURAPREP X 2 Intraop Prep Integumentary WDL with exceptions Assessment WDL WDL Patient REDNESS NOTED TO RIGHT Exceptions GROIN AND PANUS Prep Agents DuraPrep, Alcohol Prep by Gutierrez Pena RN Hair Removal Methods No hair removal performed Last Modified By: Gutierrez Pena RN 05/12/19 10:23:06 SJE IntraOp Skin Prep Audit 05/12/19 10:23:06 Car Park Attendant: JUAN C Modifier: JUAN C 1 <+> Methods 1 <*> Procedure Hip Total Anterior Approach SJE IntraOp Surgical Procedures Entry 1 Procedure Hip Total Anterior Approach Additional RIGHT DIRECT ANTERIOR Procedure TOTAL HIP REPLACEMENT Description Primary Procedure Yes Primary Surgeon ROSIO JUDD MD-ORT Start 05/12/19 10:29:00 Stop 05/12/19 11:44:00 Anesthesia Type General Specialty SN Orthopedic Wound Class I - Clean Last Modified By: Gutierrez Pena RN 05/12/19 11:48:01 SJE IntraOp Surgical Procedures Audit 05/12/19 11:48:01 Car Park Attendant: JUAN C Modifier: JUAN C <+> 1 Start <+> 1 Stop SJE IntraOp Temp Regulation Devices Entry 1 Temp Regulation Temperature Forced Air Warming Regulation Device device Temperature Upper body Regulation Site Temperature WINSTON, SAMUEL, Regulation Device BUSINESS OBJECTS CONSULTANT-ANS Applied by Last Modified By: Gutierrez Pena RN 05/12/19 10:23:10 SJE IntraOp Time [...] Yes Labeled and Displayed Last Modified By: Gutierrez Pena RN 05/12/19 10:55:43 S[facility] IntraOp Time Out Audit 05/12/19 10:55:43 Car Park Attendant: JUAN C Modifier: JUAN C 1 <+> Time Out Pause Time 1 <*> Procedure to be Performed Hip Total Anterior Approach SJE IntraOp X-Ray and Images Entry 1 X-Ray/Imaging Type Fluoroscopy Fluoroscopy Type C-Arm Site RIGHT HIP Truck Sales Manager Name DRAKE SALINAS Protective Devices Yes Used Last Modified By: Gutierrez Pena RN 05/12/19 10:23:44 Case Comments <None> Finalized By: Mirna Valderrama RN Document Signatures Signed By: Gutierrez Pena RN 05/12/19 12:01 Gutierrez Pena RN 05/14/19 17:04 Mirna Valderrama RN 05/15/19 10:45 Unfinalized History Date/Time Username Reason for Unfinalizing Freetext Reason for Unfinalizing 05/14/19 17:03 JUAN C Modify Pick List 05/15/19 10:43 NIRMAL Correct Billing Electronically signed by Angelika [facility] Conversion Plant Maintenance Manager Cerner at 07/02/2022 5:08 PM CDT documented in this encounter Plan of Treatment Not on file documented as of this encounter Visit Diagnoses Not on filedocumented in this encounter
--- OUTSIDE RECORDS SUMMARY | 2024-09-17 13:44 | XMS_ITS | Encounter Summary ---
Author Organization [employer] ([place], [place], [place], [place]) Address [address] [place] [address] Care Team Providers Care Hospice Care Consultant Name Role Phone Unavailable Primary Care Provider Unavailabl e Encounter Details Date Type Department Care Team (Late st Contact Info) Description 05/12/2019 Transcribed Document [facility] [place] [address] [place] [address] ProviderLexi MD [address] [place] [address] Social History Tobacco Use Types [...] - Historical ProviderMD - 05/12/2019 12:53 PM TRANSPORT PILOT Pain Assessment Entered On: 05/15/2019 9:58 EST [...]
--- OUTSIDE RECORDS SUMMARY | 2024-09-17 13:44 | XMS_ITS | Encounter Summary ---
Author Organization [employer] ([place], [place], [place], [place]) Address [address] [place] [address] Care Team Providers Care Corrections Unit Supervisor Name Role Phone Unavailable Primary Care Provider Unavailabl e Encounter Details Date Type Department Care Team (Late st Contact Info) Description 05/12/2019 Transcribed Document [facility] Family Medicine [address] [place] [address] ProviderLexi MD [address] [place] [address] Social History Tobacco Use Types [...] - Historical ProviderMD - 05/12/2019 7:00 PM BELT PICKER Pain Assessment Entered On: 05/12/2019 23:17 EST Performed On: 05/12/2019 19:38 EST by BORIS OVALLE, Curriculum Designer-Nursing Intervention Information: acetaminophen Performed by Rach Red RN on 05/12/2019 18:38:00 EST acetaminophen,1000mg Oral Pain Assessment Pain Assessment : Follow-up assessment Pain Scale Goal : 4 Pain Scale Used : FACES Pain Intervention, Drug : Medicated Pain Improved by Intervention : Yes BORIS OVALLE, Curriculum Designer-Nursing - 05/12/2019 23:17 EST Pain Scale Intensity : 3 BORIS OVALLE, Curriculum Designer-Nursing - 05/12/2019 23:17 EST Image 4 - Images currently included in the form version of this document have not been included in the text rendition version of the form. Electronically signed by Meghan Carney Conversion Environmental Emergencies Planner Cerner at 07/02/2022 5:08 PM CDT documented in this encounter Plan of Treatment Not on file documented as of this encounter Visit Diagnoses Not on filedocumented in this encounter
--- OUTSIDE RECORDS SUMMARY | 2024-09-17 13:44 | XMS_ITS | Encounter Summary ---
Author Organization [employer] ([place], [place], [place], [place]) Address [address] [place] [address] Care Team Providers Care Manager Copy Name Role Phone Unavailable Primary Care Provider Unavailabl e Encounter Details Date Type Department Care Team (Late st Contact Info) Description 04/27/2019 Transcribed Document [facility] [place] Family Medicine [address] [place] [address] ProviderLexi MD [address] [place] [address] Social History Tobacco Use Types [...] - Historical ProviderMD - 04/27/2019 6:29 AM BIOLOGY RESEARCH ASSISTANT Orthopedic Nurse Navigator Entered On: 04/27/2019 6:31 [...] Pt is wanting to go to the [place]. Alyssia Ashraf RN Surgical Services - 04/27/2019 6:29 EST Electronically signed by Angelika [facility] Conversion Land Clearer Cerner at 07/02/2022 5:05 PM CDT documented in this encounter Plan of Treatment Not on file documented as of this encounter Visit Diagnoses Not on filedocumented in this encounter
--- OUTSIDE RECORDS SUMMARY | 2024-09-17 13:44 | XMS_ITS | Patient Health Record ---
Author Organization [facility] Address [address] [place] [address] Care Team Providers Care Middle School Spanish Teacher Name Role Phone Migration, Provider Unavailable Unavailable Allergies Allergen (clinical drug ingredient) Drug/Non Drug Allergy documented on EMR Reaction Allergy Type Onset Date Status Penicillin hives Drug Allergy Active Trace Metals rash Drug Allergy 06/11/2019 Act dudley Reason For Referral No Information Medications Medication SIG (Take, Route, Frequency, Duration) [...] day Active Vitamin D (Ergocalciferol) 1.25 MG (76423 UT) Capsule 1 cap(s) orally once a week Active Social History Social History Social History Social Info Question Answer Notes Tobacco Use Current smoking status: Quit Number of years? >25 years Problems Problem Type SNOMED Code ICD Code Onset Dates Problem Status W/U Status Risk Notes Problem Essential hypertension (57520164) Essential (primary) hypertension (I10) Active confirmed Problem Acute renal failure syndrome (39277566) Acute kidney failure, unspecified (N17.9) Active confirmed Problem Total hip replacement Prosthesis (711799275) Presence of right artificial hip joint (Z96.641) Active confirmed Problem Edema (87302369) Edema, unspecified (R60.9) Active confirmed Problem Type II diabetes mellitus without complication (455061518) Type 2 diabetes mellitus without complications (E11.9) Active confirmed Encounters Encounter Location Date Provider Diagnosis [address] [place] [address] 08/22/2024 Provider Migration Plan Of Treatment No Information Insurance Providers Payer Name Payer Address Payer Phone Subscriber Number Group Number Insured Name Patient Relationship to Insured Coverage Start Date Coverage End [place] [address] [place] [address] [id number] Dominga Ardon Self - patient is the insured [facility] [address] [place] [phone] [id number] Dominga Ardon Self - patient is the insured Medical (General) History Medical History History ICD Code Anxiety disorder sleep apnea, at risk for type 2 diabetes hypercholesterolemia hypertension Hypothyroidism Vitamin D deficiency Surgical History Surgery Date(Month/Year) Hysterectomy Gastric band ORIF, left ankle VD x1 Hospitalization History Reason Date(Month/Year) Right [facility] 04/2019
--- OUTSIDE RECORDS SUMMARY | 2024-09-17 13:44 | XMS_ITS | Data Portability ---
Author Organization [facility] ELAINE Farmer [place] [facility] Address [address] [facility] [address] [place] [address] Care Team Providers Care Demographic Analyst Name Role Phone JESUS MARINA Primary Care Provider Assessment Encounter Date Assessment Date Assessment LastModified by Organization Details LastModified Time 02/25/2019 02/25/2019 1. Dyspnea 2. Hypertension 3. Dyslipidemia 4. Type II DM Not available 02/25/2019 14:12:41 Plan of Treatment Reminders Order Date Submit Date Provider Last Modified By Organization Details Last Modified Time Details Appointments None record ed. Lab None record ed. Referral None record ed. Procedures None record ed. Surgeries None record ed. Imaging None record ed. Medication Orders None record ed. Patient TargetsNo targets recorded. Patient Instructions Encounter Date Encounter Id Patient Instructions Last Modified By Organization Details Last Modified Time 02/25/2019 [id number] echocardiogram i s normal with normal LV wall motion normal ejection fraction. There is evidence for mild diastolic dysfunction likely related to obesity. She demonstrates acceptable surgical risk from cardiac standpoint. No additional cardiac follow-up recommended. Not available 02/25/2019 16:59:52 Reason for Referral None Reported. Results Created Date Observation Date Name Description Value Unit Range Abnormal Flag Note LastModifiedBy Organization Detail LastModifiedTime 02/27/20 19 02/25/2019 elect mela diogr am No observ ation record ed. [email or web address] Not Available 2018 14:58:36 Result Notes None recorded. Problems Name Problem SNOMED Code Status Onset Date Resolution Date Notes Provider Name and Address Organization Details Recorded Time Dyspnea 549079192 Active 2018 JHONY GUTHRIE PA-C [address] [place], [address], [facility] 14:13:12 Essential hypertension 59959147 Active 2018 JHONY GUTHRIE PA-C [address] [place], [address], [facility] 14:13:19 Dyslipidemia 397591775 Active 2018 JHONY GUTHRIE PA-C [address] [place], [address], [facility] 14:13:28 Problem Notes Documentation Provider Name and Address Organization Details Recorded Time Trans-thoracic Echocardiogram (tte) (proc) : [address] [place] [facility] [address]WWGNNJW, PEGGY L (id #[id number], : 1945) [facility] [address] [place] [address] [address] [place] [address] Encounter Summary - Progress Note Date Printed: 02/25/2019 Documents sent via fax will include the following message: This fax may contain sensitive and confidential personal health information that is being sent for the sole use of the intended recipient. Unintended recipients are directed to securely destroy any materials received. You are hereby notified that the unauthorized disclosure or other unlawful use of this fax or any personal health information is prohibited. To the extent patient information contained in this fax is subject to 42 CFR Part 2, this regulation prohibits unauthorized disclosure of these records. If you received this fax in error, please visit [email or web address] to notify the sender and confirm that the information will be destroyed. If you do not have internet access, please call to notify the sender and confirm that the information will be destroyed. Thank you for your attention and cooperation. [ID:[id number]] Patient Tay Fonseca (73yo, F) #[id number] 1945 Patient Demographics: Address [address] [place], [place] [address] Encounter Notes: Encounter Reason/Date Echo/MAYFIELD 02/25/2019 - 02:45PM - ECHO VASCULAR LAB Procedure DocumentationEchocardiogr am:ECHOCARDIOGRAM Comments: Technically difficult study. Poor parasternal windows. Image quality adequate for hemodynamic interpretation. 1. Left ventricle: Left ventricular dimensions are normal. Wall thickness is normal. Wall motion is grossly normal. E 90 A 90 e' 8. Grade 2 diastolic dysfunction. 2. Right ventricle: Right ventricular dimensions are normal. Right ventricular wall motion appears normal. TAPSE 22mm. 3. Atria: Left atrial dilation. EZEQUIEL 34ml/m2. Both atria appear normal size. The interatrial septum appears normal. 4. Mitral valve: The mitral valve appears structurally normal. Trace MR. 5. Aortic valve: The aortic valve appears structurally normal. No significant Doppler abnormalities are detected. 6. Tricuspid valve: The tricuspid valve is not well visualized. Trace TR. 7. Pulmonic valve: The pulmonic valve is not well visualized. No significant Doppler abnormalities detected. 8. Great vessels: The aortic root is normal size and appears normal. IVC 16 mm, <50% collapse. 9. There is no pericardial thickening or pericardial effusion. 10. There are no masses, vegetations, or thrombi detected. Impression: Technically difficult study with limited visualization. No significant valvular heart disease. Trace MR with dilated left atrium. Diastolic dysfunction present. Normal systolic function. Ejection fraction >55%. There are no prior studies for comparison. Joseph Pearson MD. Primary MD: Jesus Marina Referring Physician: Jhony Guthrie PA-C Tech: Di [facility] Location: E Type: Complete Diagnosis: [place]FIELD HT: 5'2 WT: 240 BSA: 2.07 B/P: Contrast: Lot #: Amount Given: Wasted: Expiration date: 2-D/M-MODE MEASUREMENTS RV 2.5cm (1.9-3.8) IVSd 1.2cm (.6-1.1) LVIDd 4.0cm (3.5-6.0) PWd 1.0cm (.6-1.1) LVIDs 2.6cm (2.1-4.0) Ao Diameter 2..3cm (1.7-3.5) LA (Lax) 4.4cm (2.3-3.8) La (4c) 4.2cm (2.9-5.3) RA (4c) 3.8cm (3.4-4.9) RA Volume 25mL (27-31) LA Volume 27mL (38+/-10) EF 60% COLOR/DOPPLER EVALUATION Mitral Valve E sujatha .90m/s A sujatha .98m/s E/A ratio .92(1.0-2.0) PHT msec MVA--PHT cm^2 2D cm^2 Mean Grad mmHg Pulmonic Valve PV sujatha .75m/s PV PK Grad mmHg Regurg Grad mmHg Diastolic Function MV decel 172msec (160-240 msec) E' .09 E/E' Ratio 9 IVRT 61msecs (age>40: 63-89msec; age<40: 57-81 msec) IVC 1.3cm Aortic Valve LVOT Diam cm LVOT sujatha 1.0m/s AO sujatha 1.5m/s AO PK Grd mmHg AO M Grd mmHg LANDON cm^2 Regurgitation PHT mmHg Tricuspid Valve TR Grad mmHg RA pressure 10mmHg RVSP mmHg TAPSE 22mm Electronically Signed by: JOSEPH PEARSON MD JHONY GUTHRIE PA-C [address] [place] [address], [phone], [facility] 02/26/2019 09:32:02 Procedures Surgical History Date Name Laterality Status Provider Name and Address Organization Details Recorded Time 02/26/20 19 Echocardiogram completed JOSEPH PEARSON MD [address] [place] [address], [phone], [facility] 02/25/2019 16:42:19 02/26/20 19 EKG completed JHONY GUTHRIE PA-C [address] [place] [address], [phone], [facility] 02/25/2019 14:12:25 hysterectomy completed Jacque Donohue [facility] 02/25/2019 13:39:55 delivery completed Jacquebernadette Donohue [facility] 02/25/2019 13:40:38 Imaging Results None recorded. Procedure Notes None recorded. Medical Equipment None Reported. Allergies Allergen ID Allergen Name Allergen Category Reaction Reaction Severity Criticality Documentation Date Start Date Code Code System Note Provider Name and Address Organization Details Recorded Time 139967 Product containin g penicilli n (product) medicatio n Not available Not available Not available 02/04/2019 19966 8001 SNOMED Jacquebernadette Donohue [facility] 9 11:40:56 Medications Name Sig Start Date Stop Date Status Note LastModified by Organization Details LastModified Time furosemide 40 mg tablet Take 1 tablet every day by oral route. active Not Available Not Available No t Available citalopram 40 mg tablet Take 1 tablet every day by oral route. active Not Available Not Available No t Available lisinopril 20 mg-hydrochlor othiazide 12.5 mg tablet Take 1 tablet every day by oral route. active Not Available Not Available No t Available glipizide ER 10 mg tablet, extended release 24 hr Take 1 tablet every day by oral route. active Not Available Not Available No t Available lisinopril 20 mg tablet Take 1 tablet every day by oral route. 02/25 completed Not Available Not Available Not Available simvastatin 10 mg tablet Take 1 tablet every day by oral route. 02/25 completed Not Available Not Available Not Available simvastatin 40 mg tablet Take 1 tablet every day by oral route. active Not Available Not Available No t Available levothyroxine 50 mcg tablet Take 1 tablet every day by oral route. active Not Available Not Available No t Available phenobarbital 30 mg tablet Take 1 tablet twice a day by oral route. active Not Available Not Available No t Available Vitamin D2 1,250 mcg (50,000 unit) capsule Take by oral route. active Not Available Not Available No t Available pioglitazone 30 mg tablet Take 1 tablet every day by oral route. active Not Available Not Available No t Available Vitamin D3 02/25 completed Not Available Not Available Not Available Vitals Date Recorded Body height Body mass index (BMI) Body weight Heart rate Systolic And Diastolic Provider Name and Address Organization Details Last Updated DateTime 02/25/2019 157.48 cm 43.9 kg/m2 810036.1 7 g 96 /min 124/82 mm[Hg] Jacque Donohue [facility] 02/25/2019 13:46:06 Social History Question Answer Notes LastModified by Organizat ion Details LastModified Time Tobacco Smoking Status Former Smoker Jacque Donohue [facility] 02/25/2019 13:37:33 How Much Tobacco Do You Chew? None Information not available 02/04/2019 Which Illicit Or Recreational Drugs Have You Used? No Illicit Drug Use Per Patient [email or web address] Information not available 02/25/2019 Live Alone Or With Others? Alone Information not available 02/25/2019 Marital Status Unknown Informatio n not available 02/25/2019 How Much Tobacco Do You Smoke? No [email or web address] Information not available 02/04/2019 How Many Years Have You Smoked Tobacco? 15 [email or web address] Information not available 02/25/2019 Sex: Unknown Functional Status Question Answer Note LastModified by Organizat ion Details LastModified Time What is your level of alcohol consumption? None Information not available 02/25/2019 Do you or have you ever used smokeless tobacco? Never used smokeless tobacco [email or web address] Information not available 02/04/2019 What is your occupation? retired [email or web address] Information not available 02/25/2019 Do you or have you ever used e-cigarettes or vape? Never used electronic cigarettes [email or web address] Information not available 02/04/2019 Mental Status None recorded. Family History Relationship Description Onset Age of this Age Resolved Age Notes LastModified by Organization Details LastModified Time Unspecified Relation Family history of malignant neoplasm [email or web address] Not available 2018 11:38:14 Unspecified Relation Heart disease Not available 2018 11:38:31 Unspecified Relation Family history of stroke [email or web address] Not available 2018 11:38:40 Unspecified Relation Seizure [email or web address] Not available 02/05/20 11:38:49 Unspecified Relation Diabetes mellitus Not available 2018 11:39:02 Medical History Condition Response Diabetes Y Hyperlipidemia Y Hypertension Y Gynecological HistoryNo gynecological history recorded. Obstetrics History GPAL:G 0 P 0 0 0 0 Past Encounters Encounter ID Performer Location Encounter Start Date Encounter Closed Date Diagnosis/Indication Diagnosis SNOMED-CT Code Diagnosis ICD10 Code Diagnosis Note [id number] JHONY GUTHRIE PA-C CARDIOLOG Y [facility] [address] [facility] [address] [place] [address] 02/25/2019 13:17:50 02/26/2019 08:28:12 Dyspnea 557090074 R06.00 Essential hypertension 70019533 I10 Dyslipidemia 903665226 E 78.5 [id number] JOSEPH PEARSON MD ECHO VASCULAR LAB [address] [facility] [place] [address] 02/25/2019 14:18:01 03/03/2019 07:37:28 Dyspnea on exertion 13840385 R06.09 Health Concerns Section Related Observation LastModified by Organization Detai ls LastModified Time None Recorded Concern Status LastModified by Organization Details LastModified Time None Recorded Advance Directives Directive None Recorded Payers Insurance Date Sequence Insurance Name Policy Number Policy Vieira Covered Member ID Vieira Member ID Guarantor Name 02/10/2020 1 [place] Tay L Duglas [id number] Tay L Duglas 03/03/2019 2 AARP (MEDICARE SUPPLEMENT) Tay L Duglas [id number] Tay L [place] Notes Date Note Type Note Provider Name and Address Organization Details Recorded Time 02/25/2019 text/html ddelightful 73-year-old white female who is seen in consultation from Dr. Sen or preop cardiac clearance. No prior cardiac history. When she was being examined in Dr. Sen's office she demonstrated shortness of breath while up ambulating. Patient reports that her shortness of breath is related to severe back pain. No prior history of NH, angina, palpitations dizziness syncope or CHF symptoms. She is treated for hypertension, diabetes and hyperlipidemia. Technically difficult study with limited visualization. No significant valvular heart disease. Trace MR with dilated left atrium. Diastolic dysfunction present. Normal systolic function. Ejection fraction >55%. There are no prior studies for comparison. JHONY GUTHRIE PA-C [address] [place], [address], [facility] 02/25/2019 17:01:53 OBGyn Episode No OBEpisode recorded.
--- OUTSIDE RECORDS SUMMARY | 2024-09-17 13:44 | XMS_ITS ---
Author Organization [facility] Care Team Providers Care Allergist/Md Name Role Phone Deepa Medellin (Nimisha) Unavailable Unavail able Humberto Camarena Unavailable Unavailable Allergies and adverse reactions Code CodeSystem Substance Reaction Severity StartDate Concern Status 970197511 SNOMED CT Penicillins Moderate 07/08/2023 acti ve Care Team Name Role Address Phone Organization Dates Humberto Camarena PCP [address] [place] [address], [place], [address], [place] (Office): [facility] 07/08/2023 - 07/17/2023 Deepa (N[place]) [place], [address], [place] (Office): : [facility] 07/08/2023 - 07/17/2023 Goals Section [...] completed tuberculin skin test; unspecified formulation lotNumber: [id number] expiry: 06/29/2026 Mfg: Sandfi pasteur Given 0.1 [...] Oral Tablet Delayed Release 40 MG active 198780 RXNORM 1 tablet Oral at bedtime Routine Give 1 tablet by mouth at bedtim e for GERD 2023 - Clopidogrel Bisulfate Oral Tablet 75 MG active 246895 RXNORM 1 tablet Oral at bedtime Routine [...] - glipiZIDE Oral Tablet 10 MG active 856466 RXNORM 1 tablet Oral every morning and [...] Atorvastatin Calcium Oral Tablet 80 MG active 045606 RXNORM 1 tablet Oral at bedtime Routine Give 1 tablet by mouth at bedtim e for choles terol relate d to HYPERL IPIDEM IA, 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 ) 2023 - Furosemide Oral Tablet 40 MG active 284037 RXNORM 1 tablet Oral one time a day Routine Give 1 tablet by mouth one time a day for edema/ CHF 2023 - Citalopram Hydrobromide Oral Tablet 40 MG active 736252 RXNORM 1 tablet Oral one time a day Routine Give 1 tablet by mouth one time a day for depres lenore 2023 - Ergocalcifero l Oral Capsule 1.25 MG (15887 UT) active 6664935 RXNORM 1 capsul e Oral one time a day Routine Give 1 capsul e by mouth one time a day every Mon for supple ment 2023 - Ondansetron HCl Oral Tablet 4 MG active 546642 RXNORM 1 tablet Oral as needed PRN Give 1 tablet by mouth every 4 hours as needed for Nausea /Vomit ing 2023 - Metoprolol Succinate ER Oral Tablet Extended Release 24 Hour 25 MG active 968073 RXNORM 1 tablet Oral at bedtime Routine Give 1 tablet by mouth at bedtim e for HTN relate d to ESSENT IAL (PRIMA RY) HYPERT ENSION (I10) Hold for SBP <90 or HR <50 2023 - Antacid & Antigas Oral Suspension 1159-6291-093 MG/30ML active 30 ml Oral as needed PRN Give 30 ml by mouth every 6 hours as needed for indige stion 2023 - Ozempic (0.25 or 0.5 MG/DOSE) Subcutaneous Solution Pen-injector 2 MG/3ML active 4808930 RXNORM 0.25 mg Subcuta neous one time [...] 1 ACUTE RESPIRATORY FAILURE WITH HYPOXIA 07/08/[address] active 2 CHRONIC RESPIRATORY FAILURE, UNSPECIFIED WHETHER WITH HYPOXIA OR HYPERCAPNIA 07/08/[address] active 3 DEPRESSION, UNSPECIFIED 07/08/[address] active 4 ESSENTIAL (PRIMARY) HYPERTENSION 07/08/[address] active 5 FOLLICULAR LYMPHOMA, UNSPECIFIED, UNSPECIFIED SITE 07/08/[address] active 6 GASTRO-ESOPHAGEAL REFLUX DISEASE 07/08/[address] active 7 GASTRO-ESOPHAGEAL REFLUX DISEASE WITHOUT ESOPHAGITIS 07/08/2023 07/11/[address] complete d 8 HEART FAILURE, UNSPECIFIED 07/08/[address] active 9 HYPERLIPIDEMIA, UNSPECIFIED 07/08/[address] active 10 MORBID (SEVERE) OBESITY DUE TO EXCESS CALORIES 07/08/[address] active 11 MUSCLE WEAKNESS (GENERALIZED) 07/08/[address] active 12 NON-ST ELEVATION (NSTEMI) MYOCARDIAL INFARCTION 07/08/[address] active 13 OTHER FORMS OF DYSPNEA 07/08/[address] active 14 POSTPROCEDURAL (ACUTE) (CHRONIC) KIDNEY FAILURE 07/08/[address] active 15 PRESENCE OF CORONARY ANGIOPLASTY IMPLANT AND GRAFT 07/08/[address] active 16 TYPE 2 DIABETES MELLITUS WITHOUT COMPLICATIONS 07/08/[address] active 17 UNSTEADINESS ON FEET 07/08/[address] active Reason for Referral No Reasons for Referral Entered Social History Social History Observation Description Start Date End Date Code Code System Current Smoking Status Tobacco smoking consumption unknown 997324145 SNOMED CT Sex Assigned At Female 1945 [address] [facility] Gender Identity Vital Signs Code Code System Vitals Name Values and Units Timing Information 9279-1 [facility] Respiratory Rate Value=20.0 Units=/m in 07/17/2023 8462-4 [facility] Blood Pressure-Diastolic Value=76 Un its=mmHg 07/17/2023 8480-6 [facility] Blood Pressure-Systolic Nukfg=860 Un its=mmHg 07/17/2023 8310-5 [facility] Body Temperature Value=97.2 Units= F 07/17/2023 8867-4 [facility] Heart rate Value=88.0 Units=/min 03/2023 39759-6 [facility] O2 % BldC Oximetry Value=90.0 Units= % 07/17/2023 2339-0 [facility] Blood Sugar Iokqb=762.0 Units=mg/dL 07/17/2023 29331-5 [facility] Pain Level Value=0.0 07/15/2023 8302-2 [facility] Height Value=62.0 Units=Inches 07/08/2023 48888-7 [facility] Weight Cevpc=538.0 Units=Lbs
--- OUTSIDE RECORDS SUMMARY | 2024-09-17 13:44 | XMS_ITS | Clinical Summary ---
Author Organization [facility] Address [address] [place] [address] Phone Care Team Providers Care Casino Gaming Inspector Name Role Phone Pcp, Pending Only MD [...] on file AARP MCR SUPPLEMENT Care Teams Casino Gaming Inspector Relationship Specialty Start Date End Date Pcp, Pending Only, [place], [place] [phone] PCP - General Internal Medicine 01/05/13
--- OUTSIDE RECORDS SUMMARY | 2024-09-17 13:44 | XMS_ITS | Encounter Summary ---
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
--- OUTSIDE RECORDS SUMMARY | 2024-09-17 13:44 | XMS_ITS | Encounter Summary ---
Author Organization [employer] ([place], [place], [place], [place]) Address [address] [place] [address] Care Team Providers Care Primary Education Professor Name Role Phone Unavailable Primary Care Provider Unavailabl e Encounter Details Date Type Department Care Team (Late st Contact Info) Description 05/12/2019 Transcribed Document [facility] [place] [address] [place] [address] ProviderLexi MD [address] [place] [address] Social History Tobacco Use Types [...] - Historical ProviderMD - 05/12/2019 8:09 AM [facility] Pediatric Growth Entered On: 05/12/2019 8:09 EST Performed On: 05/12/2019 8:09 EST by Lianna Johnson Care [facility] Unit Coord Height and Weight, Clinical Dosing Height Source : Stated Height Entry Format : [place] Height, Feet : 5 ft(Converted to: 152 cm, 60 Inch) Height, Inches : 2 Inch(Converted to: 0 ft 2 Inch, 5.08 cm) Clinical Height : 157.48 cm Weight Source : Standing scale Weight Entry Format : [place] Clinical Dosing Weight : 107.27 kg Weight, Pounds : 236 lb Body Surface Area (BSA) : 2.05 m2 Body Mass Index : 43.3 kg/m2 (>HHI) [place] Body Weight : 50 kg [facility]anna [facility] - 05/12/2019 8:09 EST Electronically signed by Angelika [facility] Conversion Lead Dental Assistant Cerner at 07/02/2022 5:01 PM CDT documented in this encounter Plan of Treatment Not on file documented as of this encounter Visit Diagnoses Not on filedocumented in this encounter
--- OUTSIDE RECORDS SUMMARY | 2024-09-17 13:44 | XMS_ITS | Encounter Summary ---
Author Organization [employer] ([place], [place], [place], [place]) Address [address] [place] [address] Care Team Providers Care Wire Twister Name Role Phone Unavailable Primary Care Provider Unavailabl e Encounter Details Date Type Department Care Team (Late st Contact Info) Description 04/24/2019 Transcribed Document [facility] [place] Family Medicine [address] [place] [address] ProviderLexi MD [address] [place] [address] Social History Tobacco Use Types [...] - Historical ProviderMD - 04/24/2019 12:07 PM RECHECKER PAT Adult Entered On: 04/24/2019 12:15 EST [...] Source : Stated Height Entry Format : [place] Height, Feet : 5 ft(Converted to: 152 cm, 60 Inch) Height, Inches : 2 Inch(Converted to: 0 ft 2 Inch, 5.08 cm) Clinical Height : 157.48 cm Weight Source : Standing scale Weight Entry Format : [place] Clinical Dosing Weight : 109.09 kg Weight, Pounds : 240 lb Body Surface Area (BSA) : 2.07 m2 Body Mass Index : 44 kg/m2 (>HHI) [place] Body Weight : 50 kg Nuvia Moseley [...] Nuvia Moseley Rn - 04/24/2019 12:07 EST [place] Suicide Severity Rating Scale (C-SSRS) CSSRS Past [...] Obtained From : Patient Primary Language : Tuvaluan Preferred Communication Mode : Verbal Communication Barrier : None Nuvia Moseley Rn - 04/24/2019 12:07 EST Jair Scale Jari Sensory Perception : No impairment Jair Moisture [...]
--- OUTSIDE RECORDS SUMMARY | 2024-09-17 13:44 | XMS_ITS | Encounter Summary ---
Author Organization [employer] ([place], [place], [place], [place]) Address [address] [place] [address] Care Team Providers Care Quality Assurance Monitor Name Role Phone Unavailable Primary Care Provider Unavailabl e Encounter Details Date Type Department Care Team (Late st Contact Info) Description 05/14/2019 Transcribed Document [facility] [address] [place] [address] Alba River MD [address] [place] [address] Social History Tobacco Use Types Packs/Day [...] Signature: __Tonja Canela RN CDS Phone #: _[phone] BMI < 18.5 Under weight ? 18.5 - 24.9 Healthy ? 25.0 - 29.9 Slightly Overweight ? 30.0 - 34.9 Obese/Class I ? 35.0 - 39.9 Severely Obese/Class II ? 40.0 and Over Morbidly Obese/Class III Source: [facility] This is a permanent part of the Medical Record Q9 2019 [facility] Updated: documented in this encounter Plan of Treatment Not on file documented as of this encounter Visit Diagnoses Not on filedocumented in this encounter
--- OUTSIDE RECORDS SUMMARY | 2024-09-17 13:44 | XMS_ITS | Encounter Summary ---
Author Organization [employer] ([place], [place], [place], [place]) Address [address] [place] [address] Care Team Providers Care Community Service Technician Name Role Phone Unavailable Primary Care Provider Unavailabl e Encounter Details Date Type Department Care Team (Late st Contact Info) Description 05/12/2019 Transcribed Document [facility] Family Medicine [address] [place] [address] ProviderLexi MD [address] [place] [address] Social History Tobacco Use Types [...] - Lexi ProviderMD - 05/12/2019 10:29 AM WATCH CASER KAYE Main OR PACU Summary Primary Physician: ROSIO JUDD MD-ORPatria Finalized Date/Time: 05/12/19 13:13:58 Pt. Name: TAY FONSECA /Sex: 1945 Female Med Rec #: [id number] Physician: ROSIO JUDD MD-ORT Financial #: [id number] Pt. Type: O Room/Bed: [facility]/2 Admit/Disch: 05/12/19 04:49:00 - Institution: [facility] OR PACU Case Times Entry 1 In PACU I 05/12/19 11:54:00 Ready for PACU 05/12/19 13:13:00 Discharge Discharge from PACU 05/12/19 13:13:00 I Last Modified By: JASPAL MARQUIS 05/12/19 13:13:46 SJRoni Main OR PACU Case Times Audit 05/12/19 13:13:46 Title Searcher: RAMON Modifier: TERESAMAM <+> 1 Ready for PACU Discharge <+> 1 Discharge from PACU I Finalized By: JASPAL MARQUIS Document Signatures Signed By: JASPAL MARQUIS 05/12/19 13:13 documented in this encounter Plan of Treatment Not on file documented as of this encounter Visit Diagnoses Not on filedocumented in this encounter
--- OUTSIDE RECORDS SUMMARY | 2024-09-17 13:44 | XMS_ITS | Encounter Summary ---
Author Organization [employer] ([place], [place], [place], [place]) Address [address] [place] [address] Care Team Providers Care Heel Washer Stringing Machine Operator Name Role Phone Unavailable Primary Care Provider Unavailabl e Encounter Details Date Type Department Care Team (Late st Contact Info) Description 05/14/2019 Transcribed Document [facility] [place] [address] [place] [address] ProviderLexi MD [address] [place] [address] Social History Tobacco Use Types [...] - Historical ProviderMD - 05/14/2019 2:00 AM TRAFFIC ASSISTANT Captain Waiter Details Entered On: 05/14/2019 1:34 EST Performed On: 05/14/2019 2:00 EST by BORIS OVALLE, Dry Mixer-Nursing Order Details Transport Mode Order Detail : Wheelchair Isolation Precautions Order Detail : Standard Precautions Order Detail : N/A IV Order Detail : 1 Oxygen Order Detail : 0 Nurse Collect Order Detail : 0 Lift/Transfer : Minimal Central Line Order Detail : No Room Service : Appropriate Arterial Line : No BORIS OVALLE, Dry Mixer-Nursing - 05/14/2019 1:34 EST documented in this encounter Plan of Treatment Not on file documented as of this encounter Visit Diagnoses Not on filedocumented in this encounter
--- OUTSIDE RECORDS SUMMARY | 2024-09-17 13:44 | XMS_ITS | Encounter Summary ---
Author Organization [employer] ([place], [place], [place], [place]) Address [address] [place] [address] Care Team Providers Care Grey Washer Name Role Phone Unavailable Primary Care Provider Unavailabl e Encounter Details Date Type Department Care Team (Late st Contact Info) Description 05/04/2019 Transcribed Document [facility] [place] [address] [place] [address] ProviderLexi MD [address] [place] [address] Social History Tobacco Use Types [...] - Historical ProviderMD - 05/04/2019 1:01 PM PHOTOGRAPHIC MACHINE OPERATOR Orthopedic Nurse Navigator Entered On: 05/04/2019 13:02 EST Performed On: 05/04/2019 13:01 EST by Alyssia Ashraf Nurse field producer Nurse Navigator Assessment Joint Navigator Assessment Note : Attempted to call patient, message left. Alyssia Ashraf Nurse RN - 05/04/2019 13:01 EST Electronically signed by Angelika [facility] Conversion Caramel Maker Cerner at 07/02/2022 5:15 PM CDT documented in this encounter Plan of Treatment Not on file documented as of this encounter Visit Diagnoses Not on filedocumented in this encounter
--- OUTSIDE RECORDS SUMMARY | 2024-09-17 13:45 | XMS_ITS | Encounter Summary ---
Author Organization [employer] ([place], [place], [place], [place]) Address [address] [place] [address] Care Team Providers Care Insurance And Financial Services Agent Name Role Phone Unavailable Primary Care Provider Unavailabl e Encounter Details Date Type Department Care Team (Late st Contact Info) Description 05/16/2019 Transcribed Document [facility] Family Medicine [address] [place] [address] ProviderLexi MD [address] [place] [address] Social History Tobacco Use Types [...] - Historical ProviderMD - 05/16/2019 4:00 PM PERSONAL LINES INSURANCE ADVISOR Discharge Summary, PT Entered On: 05/19/2019 11:00 EST Performed On: 05/16/2019 16:00 EST by WILIAN KENNEDY, PT Discharge Summary Reason for Discharge : Discharged from hospital Discharged to, Therapy : Unit, group home Discharge Summary Comment, PT : 33 acute PT goals met. Modified Independent with transfers Ambulated 200' with RWx SBA/CGA 25# WB R LE PAULA HEP AROM x 20 reps D/C to [facility] for continued care and rehab on 05/16/19. WILIAN KENNEDY, PT - 05/19/2019 10:59 EST Care Home Goals Other PT LTG Grid Goal #1 [...]
--- OUTSIDE RECORDS SUMMARY | 2024-09-17 13:45 | XMS_ITS | Encounter Summary ---
Author Organization [employer] ([place], [place], [place], [place]) Address [address] [place] [address] Care Team Providers Care Underground Drill Operator Name Role Phone Unavailable Primary Care Provider Unavailabl e Encounter Details Date Type Department Care Team (Late st Contact Info) Description 05/16/2019 Transcribed Document [facility] Family Medicine [address] [place] [address] ProviderLexi MD [address] [place] [address] Social History Tobacco Use Types Packs/Day Years Used Date Smoking Tobacco: Never Assessed Comments Unknown Sex and Gender Information Value Date Recorded Sex Assigned at Female 09/14/2021 4:50 PM CDT Legal Sex Female 6:54 PM CDT Gender Identity Female 09/14/2021 4:50 PM CDT Sexual Orientation Not on file documented as of this encounter Miscellaneous Notes * Cerner Conversion Note - Lexi Walsh MD - 05/16/2019 12:29 PM PHLEBOTOMY SUPPORT TECH Patient Education Materials Follows: What to expect [...] Barley. Bulgur wheat. Millet. Bran muffins. Popcorn. [place] wafer crackers. Vegetables Sweet potatoes. Spinach. Kale. Artichokes. Cabbage. Broccoli. Green peas. Carrots. Squash. Fruits Berries. Pears. Apples. Oranges. Avocados. Prunes and raisins. Dried figs. Meats and Other Protein Sources [place], kidney, kaplan, and soy beans. Split peas. [...] harrison has 11 g of protein. ?? [place] seeds ??? 1 oz has 5.5 g [...] floor. ?? Place frequently used items in fipw-ow-naitm places ?? Keep electrical cables out of [...] ?? Using the bathroom. ?? Using household mobile homes repairer or toxic chemicals. ?? Touching or taking [...] Keep items that you use often in bdkl-or-sbizs places. Lower the shelves around your home [...] the way. ??? Do not use floor lithuanian or wax that makes floors slippery. If [...] ??? Centers for Disease Control and Prevention, [place]: https://cdc.gov ??? National [place] on Aging: https://rb8yabc.bolivar.nih.gov Contact a doctor if: ??? You are [...] 12/29/2009 Document Revised: 10/17/2017 Document Reviewed: 10/17/2017 MOD[employer] Interactive Patient Education ? 2019 [employer] Inc. High-Fiber Diet Fiber, also called dietary fiber, [...] Barley. Bulgur wheat. Millet. Bran muffins. Popcorn. [place] wafer crackers. Vegetables Sweet potatoes. Spinach. Kale. Artichokes. Cabbage. Broccoli. Green peas. Carrots. Squash. Fruits Berries. Pears. Apples. Oranges. Avocados. Prunes and raisins. Dried figs. Meats and Other Protein Sources [place], kidney, kaplan, and soy beans. Split peas. [...] 08/17/2014 Elsevier Interactive Patient Education ? 2018 [employer] Inc. documented in this encounter Plan of Treatment Not on file documented as of this encounter Visit Diagnoses Not on filedocumented in this encounter
--- OUTSIDE RECORDS SUMMARY | 2024-09-17 13:45 | XMS_ITS | Encounter Summary ---
Author Organization [employer] ([place], [place], [place], [place]) Address [address] [place] [address] Care Team Providers Care Leasing Professional Name Role Phone Unavailable Primary Care Provider Unavailabl e Encounter Details Date Type Department Care Team (Late st Contact Info) Description 05/16/2019 Transcribed Document [facility] [place] [address] [place] [address] ProviderLexi MD [address] [place] [address] Social History Tobacco Use Types [...] - Lexi ProviderMD - 05/16/2019 12:30 PM DIET TECH [address] [address] TAY FONSECA Brittany :1945 Visit Time:05/13/2019 Your Visit Summary Your Care Team Admitting Physician - ROSIO JUDD MD-ORT DONOHUE, KEVIN, DO Attending Physician - ROSIO JUDD MD-ALEXT Primary Care Physician - LILIAN MARINA (REF)MD-ROMEO [...] by family, RN please call report to [phone] fax dc summary to [phone] Continue to use incentive spirometer for approx [...] 1 Tablet(s) Oral Every Day Pickup at [facility] [place] [address] 27 [address] levothyroxine 50 Microgram(s) Oral Every Day simvastatin 40 Milligram(s) Oral Every Evening Pharmacy Information [facility] [employer]-[address] [facility] [address]: [address] [facility] [address] [place] [phone] Take your medications faithfully. Do NOT skip [...] Barley. Bulgur wheat. Millet. Bran muffins. Popcorn. [place] wafer crackers. Vegetables Sweet potatoes. Spinach. Kale. Artichokes. Cabbage. Broccoli. Green peas. Carrots. Squash. Fruits Berries. Pears. Apples. Oranges. Avocados. Prunes and raisins. Dried figs. Meats and Other Protein Sources [place], kidney, kaplan, and soy beans. Split peas. [...] harrison has 11 g of protein. ??? [place] seeds ??? 1 oz has 5.5 g [...] floor. ??? Place frequently used items in rzjl-ey-naesq places ??? Keep electrical cables out of [...] ??? Using the bathroom. ??? Using household loom technician or toxic chemicals. ??? Touching or taking [...] Keep items that you use often in hams-cz-cwaqd places. Lower the shelves around your home [...] the way. ??? Do not use floor setswana or wax that makes floors slippery. If [...] ??? Centers for Disease Control and Prevention, [place]: https://cdc.gov ??? National [place] on Aging: https://du1horb.bolivar.nih.gov Contact a doctor if: ??? You are [...] 12/29/2009 Document Revised: 10/17/2017 Document Reviewed: 10/17/2017 [employer] Interactive Patient Education ?? 2019 Gigathlete. High-Fiber Diet Fiber, also called dietary fiber, [...] Barley. Bulgur wheat. Millet. Bran muffins. Popcorn. [place] wafer crackers. Vegetables Sweet potatoes. Spinach. Kale. Artichokes. Cabbage. Broccoli. Green peas. Carrots. Squash. Fruits Berries. Pears. Apples. Oranges. Avocados. Prunes and raisins. Dried figs. Meats and Other Protein Sources [place], kidney, kaplan, and soy beans. Split peas. [...] 03/04/2006 Document Revised: 08/09/2016 Document Reviewed: 08/17/2014 [employer] Interactive Patient Education ?? 2018 Gigathlete. hydromorphone (oral) (MIRZA ibanez) Adriana Krishnamurthyalgo What is the most important information I [...] extended-release form of this medicine is for jzvars-yud-mfrnr treatment of moderate to severe pain, not [...] against the law. Stop taking all other viijtn-kgr-diafm narcotic pain medications when you start taking [...] may report side effects to FDA at 6-542-DZH-0496. What other drugs will affect hydromorphone? Opioid [...] drugs may affect hydromorphone, including prescription and ybwh-yfj-pjryfwe medicines, vitamins, and herbal products. Not all [...] to ensure that the information provided by [employer]. ('Multum') is accurate, up-to-date, and complete, but no guarantee is made to that effect. Drug information contained herein may be time sensitive. N3TWORK information has been compiled for use by healthcare practitioners and consumers in the [place] and therefore [employer]TWORK does not warrant that uses outside of the [place] are appropriate, unless specifically indicated otherwise. pushds drug information does not endorse drugs, diagnose patients or recommend therapy. pushds drug information is an informational resource designed [...] effective or appropriate for any given patient. [facility] does not assume any responsibility for any aspect of healthcare administered with the aid of information [facility] provides. The information contained herein is not intended to cover all possible uses, directions, precautions, warnings, drug interactions, allergic reactions, or adverse effects. If you have questions about the drugs you are taking, check with your doctor, nurse or pharmacist. Copyright 8156-5768 [employer]. Version: 9.03. Revision Date: 01/01/2019. gabapentin ([place] [...] are a day sleeper or work a warehouse worker 2nd shift. Some people have thoughts about suicide while [...] may report side effects to FDA at 5-075-HEK-2372. What other drugs will affect gabapentin? Using gabapentin with other drugs that slow your breathing can cause dangerous side effects or . Ask your doctor before using opioid medication, a sleeping pill, cold or allergy medicine, a muscle relaxer, or medicine for anxiety or seizures. Other drugs may affect gabapentin, including prescription and fecd-bcn-mkdcxnx medicines, vitamins, and herbal products. Tell your [...] to ensure that the information provided by [employer]. ('Multum') is accurate, up-to-date, and complete, but no guarantee is made to that effect. Drug information contained herein may be time sensitive. N3TWORK information has been compiled for use by healthcare practitioners and consumers in the [place] and therefore [employer]TWORK does not warrant that uses outside of the [place] are appropriate, unless specifically indicated otherwise. pushds drug information does not endorse drugs, diagnose patients or recommend therapy. pushds drug information is an informational resource designed [...] effective or appropriate for any given patient. [employer] does not assume any responsibility for any aspect of healthcare administered with the aid of information [employer] provides. The information contained herein is not intended to cover all possible uses, directions, precautions, warnings, drug interactions, allergic reactions, or adverse effects. If you have questions about the drugs you are taking, check with your doctor, nurse or pharmacist. Copyright 8769-5752 Visual[employer]. Version: 15.01. Revision Date: 03/12/2019. oxycodone (ox i KOE [...] The extended-release form of oxycodone is for urffes-ayk-lgwyu treatment of pain and should not be [...] against the law. Stop taking all other rtolcx-djp-fciyc narcotic pain medicines when you start taking [...] may report side effects to FDA at 9-756-MWS-9136. What other drugs will affect oxycodone? You [...] may affect oxycodone. This includes prescription and yljb-yiu-ajimwmp medicines, vitamins, and herbal products. Not all [...] to ensure that the information provided by Visual[employer]. ('Multum') is accurate, up-to-date, and complete, but no guarantee is made to that effect. Drug information contained herein may be time sensitive. N3TWORK information has been compiled for use by healthcare practitioners and consumers in the [place] and therefore [employer]TWORK does not warrant that uses outside of the [place] are appropriate, unless specifically indicated otherwise. pushds drug information does not endorse drugs, diagnose patients or recommend therapy. pushds drug information is an informational resource designed [...] effective or appropriate for any given patient. [employer] does not assume any responsibility for any aspect of healthcare administered with the aid of information N[employer]TWORK provides. The information contained herein is not intended to cover all possible uses, directions, precautions, warnings, drug interactions, allergic reactions, or adverse effects. If you have questions about the drugs you are taking, check with your doctor, nurse or pharmacist. Copyright 3775-3753 Visual[employer]. Version: 13.03. Revision Date: 12/29/2018. tramadol (TRAM [...] extended-release form of this medicine is for nvdbpz-esc-myfev treatment of pain. This form of tramadol [...] against the law. Stop taking all other nkircv-fgh-wgrrv narcotic pain medications when you start taking [...]
--- OUTSIDE RECORDS SUMMARY | 2024-09-17 13:45 | XMS_ITS | Encounter Summary ---
Author Organization [employer] ([place], [place], [place], [place]) Address [address] [place] [address] Care Team Providers Care Chef Saucier Name Role Phone Unavailable Primary Care Provider Unavailabl e Encounter Details Date Type Department Care Team (Late st Contact Info) Description 05/16/2019 Transcribed Document [facility] [place] Family Medicine [address] [place] [address] ProviderLexi MD [address] [place] [address] Social History Tobacco Use Types [...] - Historical ProviderMD - 05/16/2019 2:42 PM VOLTAGE TESTER On Going Discharge Planning Entered On: 05/16/2019 14:47 EST Performed On: 05/16/2019 14:42 EST by KYRA ZEPEDA RN-Felter Tennis BallsDirector Of Neurology Progress Note Discharge Arrangements : Patient Post-Acute Information Patient Name: TAY FONSECA Gender: Female : [birth year] Age: 73 Years No Post-Acute Placement(s) Listed No Post-Acute Service(s) Listed No [place] Referral(s) Listed Discharge Options Discussed with Patient : Short term rehabilitation Patient Offered Choice/Affiliations Explained : Yes KYRA ZEPEDA RN-Felter Tennis Balls - 05/16/2019 14:42 EST Narrative Progress Note Narrative Progress Note : Dr River dictated a dc summary, however, is not showing up for anyone to see. Cm contacted Medical Records at [facility] in regards of having someone check for [...] go ahead and fax dc summary to [facility] and to have nurse call report........sds Historical Progress Note : Pt has been changed to in pt status per IPAS. referrals sent out via [facility] for [facility] facilities per pts choice. SANDRA DEL ANGEL, Care Management-Crop Roller - 05/13/19 10:07:21 KYRA ZEPEDA, RN-Felter Tennis Balls - 05/16/2019 14:42 EST Electronically signed by [facility], [facility] Conversion Sterile Processing Technician Cerner at 07/02/2022 4:57 PM CDT documented in this encounter Plan of Treatment Not on file documented as of this encounter Visit Diagnoses Not on filedocumented in this encounter
--- OUTSIDE RECORDS SUMMARY | 2024-09-17 13:45 | XMS_ITS | Encounter Summary ---
Author Organization [employer] ([place], [place], [place], [place]) Address [address] [place] [address] Care Team Providers Care Pet Supplies Salesperson Name Role Phone Unavailable Primary Care Provider Unavailabl e Encounter Details Date Type Department Care Team (Late st Contact Info) Description 05/16/2019 Transcribed Document [facility] [place] [address] [place] [address] ProviderLexi MD [address] [place] [address] Social History Tobacco Use Types [...] - Lexi ProviderMD - 05/16/2019 3:17 PM SHAPER HAND Patient: TAY FONSECA Age: 73 Years Sex: [...]
--- OUTSIDE RECORDS SUMMARY | 2024-09-17 13:45 | XMS_ITS | Encounter Summary ---
Author Organization [employer] ([place], [place], [place], [place]) Address [address] [place] [address] Care Team Providers Care Horticultural Worker Name Role Phone Unavailable Primary Care Provider Unavailabl e Encounter Details Date Type Department Care Team (Late st Contact Info) Description 05/16/2019 Transcribed Document [facility] [place] Family Medicine [address] [place] [address] ProviderLexi MD [address] [place] [address] Social History Tobacco Use Types [...] - Historical ProviderMD - 05/16/2019 4:01 PM MEDICAL PROGRAM SPECIALIST Nursing Discharge Summary Entered On: 05/16/2019 16:02 [...] - 05/16/2019 16:01 EST Electronically signed by Angelika, [facility] Conversion Hospital Nurse Cerner at 07/02/2022 4:53 PM CDT documented in this encounter Plan of Treatment Not on file documented as of this encounter Visit Diagnoses Not on filedocumented in this encounter
--- OUTSIDE RECORDS SUMMARY | 2024-09-17 13:45 | XMS_ITS | Encounter Summary ---
Author Organization [employer] ([place], [place], [place], [place]) Address [address] [place] [address] Care Team Providers Care Hot Tamale Man Name Role Phone Unavailable Primary Care Provider Unavailabl e Encounter Details Date Type Department Care Team (Late st Contact Info) Description 05/16/2019 Transcribed Document [facility] [place] Family Medicine [address] [place] [address] ProviderLexi MD [address] [place] [address] Social History Tobacco Use Types [...] - Lexi ProviderMD - 05/16/2019 9:53 AM SENIOR HR GENERALIST Discharge Instructions Entered On: 05/16/2019 9:55 EST [...] for any new or worsening symptoms. VICKIE DERGOOT MD - 05/16/2019 9:53 EST Electronically signed by Angelika [facility] Conversion Placement Director Cerner at 07/02/2022 4:51 PM CDT documented in this encounter Plan of Treatment Not on file documented as of this encounter Visit Diagnoses Not on filedocumented in this encounter
--- OUTSIDE RECORDS SUMMARY | 2024-09-17 13:45 | XMS_ITS | Encounter Summary ---
Author Organization [employer] ([place], [place], [place], [place]) Address [address] [place] [address] Care Team Providers Care College Coach Name Role Phone Unavailable Primary Care Provider Unavailabl e Encounter Details Date Type Department Care Team (Late st Contact Info) Description 05/16/2019 Transcribed Document [facility] [place] Family Medicine [address] [place] [address] ProviderLexi MD [address] [place] [address] Social History Tobacco Use Types [...] - Historical ProviderMD - 05/16/2019 2:00 AM CHAIR AND COUCH MAKER Artificial Limb Fitter Details Entered On: 05/16/2019 4:23 EST Performed [...] : Appropriate Arterial Line : No Lacey Fernandez RN - 05/16/2019 4:23 EST documented in this encounter Plan of Treatment Not on file documented as of this encounter Visit Diagnoses Not on filedocumented in this encounter
--- NOTE | 2024-09-17 14:00 | CT_ITS ---
PROCEDURE INFORMATION: Exam: CTA Head With Contrast, Arteriography Exam date and time: 09/17/2024 2:21 PM Age: 78 years old Clinical indication: Dizziness and giddiness TECHNIQUE: Imaging protocol: Computed tomographic angiography of the head with contrast. Exam focused on the arteries. 3D rendering (Not supervised by radiologist): MIP and/or 3D reconstructed images were created by the technologist. Radiation optimization: All CT scans at this facility use at least one of these dose optimization techniques: automated exposure control; mA and/or kV adjustment per patient size (includes targeted exams where dose is matched to clinical indication); or iterative reconstruction. Contrast material: ISOVUE 370; Contrast volume: 100 ml; Contrast route: INTRAVENOUS (IV); COMPARISON: CT ANGIO NECK 09/17/2024 2:21 PM FINDINGS: ANTERIOR CIRCULATION: Right internal carotid artery: Intracranial segment is patent with no significant stenosis. No aneurysm. Right middle cerebral artery: No occlusion or significant stenosis. No aneurysm. Right anterior cerebral artery: No occlusion or significant stenosis. No aneurysm. Left internal carotid artery: Intracranial segment is patent with no significant stenosis. No aneurysm. Left middle cerebral artery: No occlusion or significant stenosis. No aneurysm. Left anterior cerebral artery: No occlusion or significant stenosis. No aneurysm. POSTERIOR CIRCULATION: Right vertebral artery: See Brain finding. Left vertebral artery: No occlusion or significant stenosis. No aneurysm. Basilar artery: No occlusion or significant stenosis. No aneurysm. Right posterior cerebral artery: No occlusion or significant stenosis. No aneurysm. Left posterior cerebral artery: The left posterior cerebral artery appears to demonstrate focal stenosis in the mid P2 segment on axial image 98 and sagittal image 84. Thin axial source images have been requested to better evaluate this pathology. Brain: There appears to be retrograde filling of the distal right vertebral artery to supply the right PICA territory. The right vertebral artery is occluded in the upper neck and at the base of the neck as separately reported. Cerebral ventricles: No ventriculomegaly. Bones/joints: Unremarkable. No acute fracture. Soft tissues: Unremarkable. IMPRESSION: 1. There appears to be retrograde filling of the distal right vertebral artery to supply the right PICA territory. The right vertebral artery is occluded in the upper neck and at the base of the neck as separately reported. 2. The left posterior cerebral artery appears to demonstrate focal stenosis in the mid P2 segment on axial image 98 and sagittal image 84. Thin axial source images have been requested to better evaluate this pathology. 3. No other definite acute intracranial process is identified.
[2024-09-17] MEDS: SODIUM CHLORIDE 0.9% 10ML SYR (RAD ONLY) 10 ML IV (14:37)
[2024-09-17] MEDS: IOPAMIDOL-370 (76%);100ML BOTTLE 80 ML IV (14:37)
[2024-09-17] MEDS: 0.9 % SODIUM CHLORIDE 50 ML VIAL IV (14:37)
--- NOTE | 2024-09-17 14:45 | CT_ITS ---
PROCEDURE INFORMATION: Exam: CTA Neck With Contrast Exam date and time: 09/17/2024 2:21 PM Age: 78 years old Clinical indication: Dizziness and giddiness TECHNIQUE: Imaging protocol: Computed tomographic angiography of the neck with contrast. Exam focused on the cervical segments of the vasculature. 3D rendering (Not supervised by radiologist): MIP and/or 3D reconstructed images were created by the technologist. Radiation optimization: All CT scans at this facility use at least one of these dose optimization techniques: automated exposure control; mA and/or kV adjustment per patient size (includes targeted exams where dose is matched to clinical indication); or iterative reconstruction. Contrast material: ISOVUE 370; Contrast volume: 100 ml; Contrast route: INTRAVENOUS (IV); COMPARISON: CT ANGIO CHEST PE PROTOCOL 05/05/2024 11:13 AM FINDINGS: Right common carotid artery: No stenosis. No dissection or occlusion. Right internal carotid artery: There is moderate calcification of the right internal carotid origin with greater than 70% compromise of the lumen on coronal image 60. Right external carotid artery: No occlusion or stenosis of the origin. Left common carotid artery: No stenosis. No dissection or occlusion. Left internal carotid artery: There is moderate calcification of the left internal carotid origin with about 50% compromise of the lumen on axial image 57 but concerning for greater than 70% stenosis on coronal image 62. Left external carotid artery: No occlusion or stenosis of the origin. Right vertebral artery: The right vertebral artery is occluded in the V4 segment possibly indicating dissection. It is intermittently visualized through the cervical spine from C 2 through C6 but is not visible at the base of the neck. Portions of the proximal course are obscured by venous reflux, however. Left vertebral artery: There is a dominant left vertebral artery with no evidence of dissection or stenosis. Thyroid: The thyroid appears normal. Teeth: The patient is edentulous. Soft tissues: Normal. No significant soft tissue swelling. Bones/joints: There are diffuse enthesopathic changes consistent with benign diffuse idiopathic skeletal hyperostosis (DISH). Lungs: The visualized portions of the lung apices are normal. IMPRESSION: 1. There is moderate calcification of the right internal carotid origin with greater than 70% compromise of the lumen on coronal image 60. 2. There is moderate calcification of the left internal carotid origin with about 50% compromise of the lumen on axial image 57 but concerning for greater than 70% stenosis on coronal image 62. 3. There is a dominant left vertebral artery with no evidence of dissection or stenosis. 4. The right vertebral artery is occluded in the V4 segment possibly indicating dissection. It is intermittently visualized through the cervical spine from C 2 through C6 but is not visible at the base of the neck. Portions of the proximal course are obscured by venous reflux, however. Mood REFERENCES: NASCET CRITERIA. The degree of stenosis in the cervical segment of the internal carotid artery is based on NASCET criteria. Normal is no stenosis. Mild is less than 50% stenosis. Moderate is 50-69% stenosis. Severe is 70% to 99% stenosis. Total occlusion is no detectable patent lumen.
== END 2024-09-17 23:59 | disposition home or self-care (01) ==
LOC: RAD 13:38
PROVIDERS: PCP Internal Medicine Adolescent Medicine; Visit Provider Physician Assistant
DX: I65.23 Occlusion and stenosis of bilateral carotid arteries (principal); I66.22 Occlusion and stenosis of left posterior cerebral artery; I65.01 Occlusion and stenosis of right vertebral artery; I10 Essential (primary) hypertension; E11.9 Type 2 diabetes mellitus without complications; R26.81 Unsteadiness on feet
CPT/HCPCS: 70496; 70498; Q9967

== ENCOUNTER 2024-09-24 12:08 | Outpatient (CLI) | payer MEDICARE, SELFPAY ==
--- NOTE | 2024-09-24 12:00 | MR_ITS ---
FINAL REPORT CLINICAL HISTORY: abnl cta dizziness x 1 month hx of follicular lymphoma dx in 2020 COMPARISON: None FINDINGS: Multiple projection images of the neck arterial vasculature were obtained without contrast. The raw data images were also reviewed. The right common carotid artery has an unremarkable appearance without evidence of stenosis or occlusion. There is moderate narrowing at the origin of the right internal carotid artery, best seen on images #28 through 30 of series 6. The narrowing appears to be approximately 70% of the luminal diameter, although MRA may overestimate the degree of stenosis. The right external carotid artery is patent. The right vertebral artery is not visualized. The left common carotid artery has an unremarkable appearance without evidence of stenosis or occlusion. The left internal carotid artery is patent without evidence of stenosis or occlusion. The left external carotid artery is patent. The left vertebral artery is patent without evidence of stenosis. IMPRESSION: Moderate narrowing of the origin of the right internal carotid artery, approximately 70% luminal diameter stenosis, although MRA may overestimate the degree of stenosis. The right vertebral artery is not visualized. The left carotid and vertebral arteries are unremarkable in appearance. Reviewed, Interpreted and Dictated by Link Ibarra MD Transcribed by Gely Warner Authenticated and [facility]
--- NOTE | 2024-09-24 12:00 | MR_ITS ---
FINAL REPORT CLINICAL HISTORY: abnl cta dizziness x 1 month hx of follicular lymphoma dx in 2020 COMPARISON: None FINDINGS: Multiplanar MR imaging of the brain was performed without and with contrast. Global atrophy is identified consistent with age. There is a small focus of encephalomalacia in the left posterior parietal white matter, measuring 9 mm in diameter. There are also multiple foci of abnormal signal predominantly in the periventricular white matter, without enhancement, most consistent with moderate changes of ischemic microvascular disease. There is no evidence of intracranial hemorrhage or mass. No abnormal extra-axial fluid collection is seen. The ventricular size is within normal limits. There is no evidence of shift of the midline structures. The posterior fossa and brainstem have an unremarkable appearance. No area of abnormal restricted diffusion is identified. No abnormal contrast enhancement is seen. Normal major vessel vascular flow voids are noted. There is a retention cyst or polyp in the maxillary sinus, best seen on image #1 of series 6. IMPRESSION: No acute intracranial abnormality identified. Reviewed, Interpreted and Dictated by Link Ibarra MD Transcribed by Gely Warner Authenticated and [facility]
--- NOTE | 2024-09-24 12:00 | MR_ITS ---
FINAL REPORT CLINICAL HISTORY: abnl test in 2020 COMPARISON: None FINDINGS: Multiple projection images of the brain arterial vasculature were obtained without contrast. Raw data images were also reviewed. The internal carotid arteries are patent. The middle cerebral arteries and visualized proximal branches are patent. The anterior cerebral arteries are patent. There is no flow identified in the distal right vertebral artery. There is flow to the right posterior inferior cerebellar artery via retrograde flow from the distal left vertebral artery filling the distal right vertebral artery. The distal left vertebral artery is patent. The basilar artery is patent. There is flow in the proximal posterior cerebral arteries bilaterally, although particularly the left posterior cerebral artery appears small. IMPRESSION: No antegrade flow is noted in the distal right vertebral artery. There is retrograde flow from the distal left vertebral artery to the distal right vertebral artery, and feels the right posterior inferior cerebellar artery. Flow is present in the proximal posterior cerebral arteries bilaterally, although the left posterior cerebral artery appears slightly small compared to the right. Reviewed, Interpreted and Dictated by Link Ibarra MD Transcribed by Gely Warner Authenticated and [facility]
--- OUTSIDE RECORDS SUMMARY | 2024-09-24 12:12 | XMS_ITS ---
Author Organization [facility] Care Team Providers Care Warehouse Forklift Operator Name Role Phone Deepa Medellin (Nimisha) Unavailable Unavail able Humberto Camarena Unavailable Unavailable Allergies and adverse reactions Code CodeSystem Substance Reaction Severity StartDate Concern Status 392901526 SNOMED CT Penicillins Moderate 07/08/2023 acti ve Care Team Name Role Address Phone Organization Dates Humberto Camarena PCP [address], [place], [address], [place] (Office): [facility] 07/08/2023 - 07/17/2023 Deepa (Nimisha) [place], [address], [place] (Office): : [facility] 07/08/2023 - 07/17/2023 Goals Section [...] completed tuberculin skin test; unspecified formulation lotNumber: [id number] expiry: 06/29/2026 Mfg: Sandfi pasteur Given 0.1 [...] Oral Tablet Delayed Release 40 MG active 194142 RXNORM 1 tablet Oral at bedtime Routine Give 1 tablet by mouth at bedtim e for GERD 2023 - Clopidogrel Bisulfate Oral Tablet 75 MG active 936105 RXNORM 1 tablet Oral at bedtime Routine [...] - glipiZIDE Oral Tablet 10 MG active 362607 RXNORM 1 tablet Oral every morning and [...] Atorvastatin Calcium Oral Tablet 80 MG active 221015 RXNORM 1 tablet Oral at bedtime Routine Give 1 tablet by mouth at bedtim e for choles terol relate d to HYPERL IPIDEM IA, 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 ) 2023 - Furosemide Oral Tablet 40 MG active 059891 RXNORM 1 tablet Oral one time a day Routine Give 1 tablet by mouth one time a day for edema/ CHF 2023 - Citalopram Hydrobromide Oral Tablet 40 MG active 962757 RXNORM 1 tablet Oral one time a day Routine Give 1 tablet by mouth one time a day for depres lenore 2023 - Ergocalcifero l Oral Capsule 1.25 MG (48746 UT) active 2456561 RXNORM 1 capsul e Oral one time a day Routine Give 1 capsul e by mouth one time a day every Mon for supple ment 2023 - Ondansetron HCl Oral Tablet 4 MG active 468151 RXNORM 1 tablet Oral as needed PRN Give 1 tablet by mouth every 4 hours as needed for Nausea /Vomit ing 2023 - Metoprolol Succinate ER Oral Tablet Extended Release 24 Hour 25 MG active 660722 RXNORM 1 tablet Oral at bedtime Routine Give 1 tablet by mouth at bedtim e for HTN relate d to ESSENT IAL (PRIMA RY) HYPERT ENSION (I10) Hold for SBP <90 or HR <50 2023 - Antacid & Antigas Oral Suspension 5098-5349-912 MG/30ML active 30 ml Oral as needed PRN Give 30 ml by mouth every 6 hours as needed for indige stion 2023 - Ozempic (0.25 or 0.5 MG/DOSE) Subcutaneous Solution Pen-injector 2 MG/3ML active 0314757 RXNORM 0.25 mg Subcuta neous one time [...] 1 ACUTE RESPIRATORY FAILURE WITH HYPOXIA 07/08/[address] active 2 CHRONIC RESPIRATORY FAILURE, UNSPECIFIED WHETHER WITH HYPOXIA OR HYPERCAPNIA 07/08/[address] active 3 DEPRESSION, UNSPECIFIED 07/08/[address] active 4 ESSENTIAL (PRIMARY) HYPERTENSION 07/08/[address] active 5 FOLLICULAR LYMPHOMA, UNSPECIFIED, UNSPECIFIED SITE 07/08/[address] active 6 GASTRO-ESOPHAGEAL REFLUX DISEASE 07/08/[address] active 7 GASTRO-ESOPHAGEAL REFLUX DISEASE WITHOUT ESOPHAGITIS 07/08/2023 07/11/[address] complete d 8 HEART FAILURE, UNSPECIFIED 07/08/[address] active 9 HYPERLIPIDEMIA, UNSPECIFIED 07/08/[address] active 10 MORBID (SEVERE) OBESITY DUE TO EXCESS CALORIES 07/08/[address] active 11 MUSCLE WEAKNESS (GENERALIZED) 07/08/[address] active 12 NON-ST ELEVATION (NSTEMI) MYOCARDIAL INFARCTION 07/08/[address] active 13 OTHER FORMS OF DYSPNEA 07/08/[address] active 14 POSTPROCEDURAL (ACUTE) (CHRONIC) KIDNEY FAILURE 07/08/[address] active 15 PRESENCE OF CORONARY ANGIOPLASTY IMPLANT AND GRAFT 07/08/[address] active 16 TYPE 2 DIABETES MELLITUS WITHOUT COMPLICATIONS 07/08/[address] active 17 UNSTEADINESS ON FEET 07/08/[address] active Reason for Referral No Reasons for Referral Entered Social History Social History Observation Description Start Date End Date Code Code System Current Smoking Status Tobacco smoking consumption unknown 995578094 SNOMED CT Sex Assigned At Female 1945 55837-4 [facility] Gender Identity Vital Signs Code Code System Vitals Name Values and Units Timing Information 9279-1 [facility] Respiratory Rate Value=20.0 Units=/m in 07/17/2023 8462-4 [facility] Blood Pressure-Diastolic Value=76 Un its=mmHg 07/17/2023 8480-6 [facility] Blood Pressure-Systolic Tiyas=802 Un its=mmHg 07/17/2023 8310-5 [facility] Body Temperature Value=97.2 Units= F 07/17/2023 8867-4 [facility] Heart rate Value=88.0 Units=/min 03/2023 41366-0 [facility] O2 % BldC Oximetry Value=90.0 Units= % 07/17/2023 2339-0 [facility] Blood Sugar Anato=618.0 Units=mg/dL 07/17/2023 17308-1 [facility] Pain Level Value=0.0 07/15/2023 8302-2 [facility] Height Value=62.0 Units=Inches 07/08/2023 36411-6 [facility] Weight Hmqbl=720.0 Units=Lbs
[2024-09-24] MEDS: GADOTERIDOL INJ 20ML SYRINGE 18 ML IV (13:45)
== END 2024-09-24 23:59 | disposition home or self-care (01) ==
LOC: RAD 12:10
PROVIDERS: PCP Internal Medicine Adolescent Medicine; Visit Provider Nurse Practitioner
DX: I65.21 Occlusion and stenosis of right carotid artery (principal); R93.89 Abnormal findings on diagnostic imaging of other specified body structures; I21.4 Non-ST elevation (NSTEMI) myocardial infarction; I10 Essential (primary) hypertension; R42 Dizziness and giddiness; Z95.5 Presence of coronary angioplasty implant and graft
CPT/HCPCS: 70544; 70547; 70553; A9576

== ENCOUNTER 2024-09-28 08:10 | Outpatient (CLI) | payer MEDICARE, SELFPAY ==
--- OUTSIDE RECORDS SUMMARY | 2024-08-22 17:30 | XMS_ITS ---
Author Organization [facility] Address [address] [place] [address] Care Team Providers Care Children Counselor Name Role Phone Migration, Provider Unavailable Unavailable Allergies Allergen (clinical drug ingredient) Drug/Non Drug Allergy documented on EMR Reaction Allergy Type Onset Date Status Penicillin hives Drug Allergy Active Trace Metals rash Drug Allergy 06/11/2019 Act dudley [facility] Conversion Encounter Medications Medication SIG (Take, [...] day Active Vitamin D (Ergocalciferol) 1.25 MG (11984 UT) Capsule 1 cap(s) orally once a week Active Encounters Encounter Location Date Provider Diagnosis [facility] [address] [place] [address] 08/22/2024 Provider Migration Plan Of Treatment No Information Progress Notes * MARIAN HellenomarDOB:1945 (78 yo F)Acc No.[id number]:08/22/2024 Patient: N cheyenneDominga Provider: :1945 A ge:78 Y S ex:Female Date:08/22/2024 Address:[address] [place], [place] [id number] Subjective: * Chief Complaints: * M ultum [...] (at bedtime) Vitamin D (Ergocalciferol) 1.25 MG (38665 UT) Capsule 1 cap(s) orally once a [...] bedtime) Taking Vitamin D (Ergocalciferol) 1.25 MG (30128 UT) Capsule 1 cap(s) orally once a week Taking glipiZIDE 10 MG Tablet 2 tab(s) orally once a day * Allergies: P enicillin: hivesTrace Metals: rash - Onset Date 06/11/2019 * Electronic signature of Prov ider Migration on 09/28/2024 at 08:15 AM EDT Sign off status: Pending * Provider: Date: 08/22/2024 Generated for Freddy boswell/Earnest/Richyitting on: 09/28/2024 08:15 AM EDT
--- OUTSIDE RECORDS SUMMARY | 2024-09-28 08:13 | XMS_ITS | Encounter Summary ---
Author Organization [employer] ([place], [place], [place], [place]) Address [address] [place] [address] Care Team Providers Care Marinator Name Role Phone Unavailable Primary Care Provider Unavailabl e Encounter Details Date Type Department Care Team (Late st Contact Info) Description 05/15/2019 Transcribed Document [facility] [place] Family Medicine [address] [place] [address] ProviderLexi MD [address] [place] [address] Social History Tobacco Use Types [...] - Historical ProviderMD - 05/15/2019 11:06 AM COMMUNITY FUNDRAISER Stroke/Warfarin Instructions Entered On: 05/15/2019 11:06 EST Performed On: 05/15/2019 11:06 EST by Rosie Warner RN Stroke/Warfarin Instructions Stroke/TIA Discharge Ins : N/A Warfarin Discharge Ins : N/A Rosie Warner RN - 05/15/2019 11:06 EST Electronically signed by Den Carney Conversion Residential Direct Support Professional Cerner at 07/02/2022 5:14 PM CDT documented in this encounter Plan of Treatment Not on file documented as of this encounter Visit Diagnoses Not on filedocumented in this encounter
--- OUTSIDE RECORDS SUMMARY | 2024-09-28 08:13 | XMS_ITS | Encounter Summary ---
Author Organization [employer] ([place], [place], [place], [place]) Address [address] [place] [address] Care Team Providers Care Pipe Layer Helper Name Role Phone Unavailable Primary Care Provider Unavailabl e Encounter Details Date Type Department Care Team (Late st Contact Info) Description 05/15/2019 Transcribed Document [facility] [place] Family Medicine [address] [place] [address] ProviderLexi MD [address] [place] [address] Social History Tobacco Use Types [...] - Historical ProviderMD - 05/15/2019 8:00 AM RAKER BUFFING WHEEL Pain Assessment Entered On: 05/15/2019 9:59 EST Performed On: 05/15/2019 7:30 EST by Rosie Warner RN Intervention Information: traMADol Performed by BORIS OVALLE, Resource Paraprofessional-Nursing on 05/15/2019 06:30:00 EST traMADol,50mg Oral Pain [...]
--- OUTSIDE RECORDS SUMMARY | 2024-09-28 08:13 | XMS_ITS | Encounter Summary ---
Author Organization [employer] ([place], [place], [place], [place]) Address [address] [place] [address] Care Team Providers Care Paper Wood Cutter Name Role Phone Unavailable Primary Care Provider Unavailabl e Encounter Details Date Type Department Care Team (Late st Contact Info) Description 05/15/2019 Transcribed Document [facility] [place] [address] [place] [address] ProviderLexi MD [address] [place] [address] Social History Tobacco Use Types [...] - Historical ProviderMD - 05/15/2019 2:00 AM MANAGEMENT SUPERVISOR Associate Software Developer Details Entered On: 05/15/2019 5:23 EST Performed On: 05/15/2019 2:00 EST by BORIS OVALLE, Meat Trimmer-Nursing Order Details Transport Mode Order Detail : Wheelchair Isolation Precautions Order Detail : Standard Precautions Order Detail : N/A IV Order Detail : 1 Oxygen Order Detail : 1 Nurse Collect Order Detail : 0 Lift/Transfer : Minimal Central Line Order Detail : No Room Service : Appropriate Arterial Line : No BORIS OVALLE, Meat Trimmer-Nursing - 05/15/2019 5:22 EST documented in this encounter Plan of Treatment Not on file documented as of this encounter Visit Diagnoses Not on filedocumented in this encounter
--- OUTSIDE RECORDS SUMMARY | 2024-09-28 08:13 | XMS_ITS | Encounter Summary ---
Author Organization [employer] ([place], [place], [place], [place]) Address [address] [place] [address] Care Team Providers Care Instructor Of Nursing Name Role Phone Unavailable Primary Care Provider Unavailabl e Encounter Details Date Type Department Care Team (Late st Contact Info) Description 05/13/2019 Transcribed Document [facility] [place] [address] [place] [address] ProviderLexi MD [address] [place] [address] Social History Tobacco Use Types [...] - Historical ProviderMD - 05/13/2019 7:01 AM RESIDENT CARE SPEC Patient: TAY FONSECA Age: 73 Years Sex: [...] mg= 2 Tab, Oral, Q6HInt Vitamin D2, 10815 Units= 1 Cap, Oral, Saturday Zofran, 4 [...] 05/12/2019 08:44 EST Electronically signed by Angelika, [facility] Conversion Travel Agent Cerner at 07/02/2022 4:53 PM CDT documented in this encounter Plan of Treatment Not on file documented as of this encounter Visit Diagnoses Not on filedocumented in this encounter
--- OUTSIDE RECORDS SUMMARY | 2024-09-28 08:13 | XMS_ITS | Encounter Summary ---
Author Organization [employer] ([place], [place], [place], [place]) Address [address] [place] [address] Care Team Providers Care Track Oiler Name Role Phone Unavailable Primary Care Provider Unavailabl e Encounter Details Date Type Department Care Team (Late st Contact Info) Description 05/13/2019 Transcribed Document [facility] [place] [address] [place] [address] ProviderLexi MD [address] [place] [address] Social History Tobacco Use Types [...] - Historical ProviderMD - 05/13/2019 8:00 PM SENIOR BUSINESS DEVELOPMENT MANAGER Pain Assessment Entered On: 05/14/2019 1:34 EST Performed On: 05/13/2019 23:08 EST by BORIS OVALLE, Automobile Painter-Nursing Intervention Information: traMADol Performed by BORIS OVALLE, Automobile Painter-Nursing on 05/13/2019 22:08:00 EST traMADol,50mg Oral Pain Assessment Pain Assessment : Follow-up assessment Pain Scale Goal : 4 Pain Scale Used : FACES Pain Intervention, Drug : Medicated Pain Improved by Intervention : Yes BORIS OVALLE, Automobile Painter-Nursing - 05/14/2019 1:34 EST Pain Scale Intensity : 2 BORIS OVALLE Automobile Painter-Nursing - 05/14/2019 1:34 EST Image 4 - Images currently included in the form version of this document have not been included in the text rendition version of the form. documented in this encounter Plan of Treatment Not on file documented as of this encounter Visit Diagnoses Not on filedocumented in this encounter
--- OUTSIDE RECORDS SUMMARY | 2024-09-28 08:13 | XMS_ITS | Encounter Summary ---
Author Organization [employer] ([place], [place], [place], [place]) Address [address] [place] [address] Care Team Providers Care Director Of Environmental Services Name Role Phone Unavailable Primary Care Provider Unavailabl e Encounter Details Date Type Department Care Team (Late st Contact Info) Description 05/13/2019 Transcribed Document [facility] [place] [address] [place] [address] ProviderLexi MD [address] [place] [address] Social History Tobacco Use Types [...] - Historical ProviderMD - 05/13/2019 2:00 AM POLICE SHIFT COMMANDER Hood Maker Details Entered On: 05/13/2019 4:26 EST Performed On: 05/13/2019 2:00 EST by BORIS OVALLE, Alum Operator-Nursing Order Details Transport Mode Order Detail : Wheelchair Isolation Precautions Order Detail : Standard Precautions Order Detail : N/A IV Order Detail : 1 Oxygen Order Detail : 0 Nurse Collect Order Detail : 0 Lift/Transfer : Minimal Central Line Order Detail : No Room Service : Appropriate Arterial Line : No BORIS OVALLE, Alum Operator-Nursing - 05/13/2019 4:25 EST documented in this encounter Plan of Treatment Not on file documented as of this encounter Visit Diagnoses Not on filedocumented in this encounter
--- OUTSIDE RECORDS SUMMARY | 2024-09-28 08:13 | XMS_ITS | Encounter Summary ---
Author Organization [employer] ([place], [place], [place], [place]) Address [address] [place] [address] Care Team Providers Care Electrical Electronics Engineers Name Role Phone Unavailable Primary Care Provider Unavailabl e Encounter Details Date Type Department Care Team (Late st Contact Info) Description 05/13/2019 Transcribed Document [facility] [place] [address] [place] [address] ProviderLexi MD [address] [place] [address] Social History Tobacco Use Types [...] - Historical ProviderMD - 05/13/2019 8:42 AM SALES AND MARKETING COORDINATOR Nutrition Assessment Entered On: 05/14/2019 13:18 [...] 05/14/2019 15:20 EST Electronically signed by Angelika [facility] Conversion Supervisor Plastics Cerner at 07/02/2022 4:55 PM CDT documented in this encounter Plan of Treatment Not on file documented as of this encounter Visit Diagnoses Not on filedocumented in this encounter
--- OUTSIDE RECORDS SUMMARY | 2024-09-28 08:13 | XMS_ITS | Encounter Summary ---
Author Organization [employer] ([place], [place], [place], [place]) Address [address] [place] [address] Care Team Providers Care Senior Engineering Associate Name Role Phone Unavailable Primary Care Provider Unavailabl e Encounter Details Date Type Department Care Team (Late st Contact Info) Description 05/13/2019 Transcribed Document [facility] [place] [address] [place] [address] ProviderLexi MD [address] [place] [address] Social History Tobacco Use Types [...] - Historical ProviderMD - 05/13/2019 2:15 PM HUMAN SERVICES CASE MANAGER Spiritual Care Assessment Entered On: 05/13/2019 21:55 EST Performed On: 05/13/2019 14:15 EST by Jose Miguel Downey Chaplain-Non Cert General Information Referred by : Settlement Technician follow-up Ministry Provided to : Patient Congregational Preference : Denominational Jose Miguel Downey Chaplain-Non Cert - 05/13/2019 21:54 EST Spiritual Assessment Spiritual Assessment Comment/Summary Points : Brief visit with patient as she was not feeling well at this time, no family present. Spirital Assessment Comment/Summary Report : SPIRITUAL ASSESSMENT COMMENT/SUMMARY No qualifying data available. Jose Miguel Downey Chaplain-Non Cert - 05/13/2019 21:54 EST documented in this encounter Plan of Treatment Not on file documented as of this encounter Visit Diagnoses Not on filedocumented in this encounter
--- OUTSIDE RECORDS SUMMARY | 2024-09-28 08:13 | XMS_ITS | Encounter Summary ---
Author Organization [employer] ([place], [place], [place], [place]) Address [address] [place] [address] Care Team Providers Care Pilot Instructor Name Role Phone Unavailable Primary Care Provider Unavailabl e Encounter Details Date Type Department Care Team (Late st Contact Info) Description 05/15/2019 Transcribed Document [facility] [place] [address] [place] [address] ProviderLexi MD [address] [place] [address] Social History Tobacco Use Types [...] - Historical ProviderMD - 05/15/2019 3:50 PM VETERINARY MANAGER Valuables and Belongings Entered On: 05/15/2019 15:55 [...]
--- OUTSIDE RECORDS SUMMARY | 2024-09-28 08:13 | XMS_ITS | Encounter Summary ---
Author Organization [employer] ([place], [place], [place], [place]) Address [address] [place] [address] Care Team Providers Care Supreme Court Judge Name Role Phone Unavailable Primary Care Provider Unavailabl e Encounter Details Date Type Department Care Team (Late st Contact Info) Description 05/13/2019 Transcribed Document [facility] [place] [address] [place] [address] ProviderLexi MD [address] [place] [address] Social History Tobacco Use Types [...] - Historical ProviderMD - 05/13/2019 1:00 AM ROLLER COASTER ENGINEER Pain Assessment Entered On: 05/13/2019 4:26 EST Performed On: 05/13/2019 2:28 EST by BORIS OVALLE, Slot Machine Mechanic-Nursing Intervention Information: acetaminophen Performed by BORIS OVALLE, Slot Machine Mechanic-Nursing on 05/13/2019 01:28:00 EST acetaminophen,1000mg Oral Pain Assessment Pain Assessment : Follow-up assessment Pain Scale Goal : 4 Pain Scale Used : FACES Pain Intervention, Drug : Medicated Pain Improved by Intervention : Yes BORIS OVALLE, Slot Machine Mechanic-Nursing - 05/13/2019 4:26 EST Pain Scale Intensity : 2 BORIS OVALLE, Slot Machine Mechanic-Nursing - 05/13/2019 4:26 EST Image 4 - Images currently included in the form version of this document have not been included in the text rendition version of the form. Electronically signed by Meghan Carney Conversion International Account Manager Cerner at 07/02/2022 5:11 PM CDT documented in this encounter Plan of Treatment Not on file documented as of this encounter Visit Diagnoses Not on filedocumented in this encounter
--- OUTSIDE RECORDS SUMMARY | 2024-09-28 08:13 | XMS_ITS | Encounter Summary ---
Author Organization [employer] ([place], [place], [place], [place]) Address [address] [place] [address] Care Team Providers Care Computer Programmer Analyst Name Role Phone Unavailable Primary Care Provider Unavailabl e Encounter Details Date Type Department Care Team (Late st Contact Info) Description 05/13/2019 Transcribed Document [facility] [place] [address] [place] [address] ProviderLexi MD [address] [place] [address] Social History Tobacco Use Types [...] - Historical ProviderMD - 05/13/2019 12:01 PM DUPLICATOR PUNCH SET UP OPERATOR Final Discharge Planning Entered On: 05/13/2019 12:01 EST Performed On: 05/13/2019 12:01 EST by SANDRA DEL ANGEL Care Management-Screen Cleaner Final Discharge Planning Discharge Arrangements : Patient [...] with Medicare Certification-03 SANDRA DEL ANGEL, Care Management-Screen Cleaner - 05/13/2019 12:01 EST Final Narrative Note Final Narrative Note : anticipate d/c to [facility] on Saturday by family SANDRA DEL ANGEL Care Management-Screen Cleaner - 05/13/2019 12:01 EST documented in this encounter Plan of Treatment Not on file documented as of this encounter Visit Diagnoses Not on filedocumented in this encounter
--- OUTSIDE RECORDS SUMMARY | 2024-09-28 08:13 | XMS_ITS | Encounter Summary ---
Author Organization [employer] ([place], [place], [place], [place]) Address [address] [place] [address] Care Team Providers Care Medical Staff Manager Name Role Phone Unavailable Primary Care Provider Unavailabl e Encounter Details Date Type Department Care Team (Late st Contact Info) Description 05/13/2019 Transcribed Document [facility] [place] [address] [place] [address] ProviderLexi MD [address] [place] [address] Social History Tobacco Use Types [...] - Historical ProviderMD - 05/13/2019 5:00 AM DRILLING FOREMAN Chart Check - Review Order Profile Entered On: 05/13/2019 4:27 EST Performed On: 05/13/2019 5:00 EST by BORIS OVALLE, Medicare Coordinator-Nursing Chart Check Powerplans Initiated/Discontinued as Appropriate : Yes All Active Orders Reviewed : Yes BORIS OVALLE, Medicare Coordinator-Nursing - 05/13/2019 4:27 EST Electronically signed by Angelika [facility] Conversion Fire Control Technician G Cerner at 07/02/2022 4:58 PM CDT documented in this encounter Plan of Treatment Not on file documented as of this encounter Visit Diagnoses Not on filedocumented in this encounter
--- OUTSIDE RECORDS SUMMARY | 2024-09-28 08:13 | XMS_ITS | Encounter Summary ---
Author Organization [employer] ([place], [place], [place], [place]) Address [address] [place] [address] Care Team Providers Care Hair Spinner Name Role Phone Unavailable Primary Care Provider Unavailabl e Encounter Details Date Type Department Care Team (Late st Contact Info) Description 05/15/2019 Transcribed Document [facility] [place] [address] [place] [address] ProviderLexi MD [address] [place] [address] Social History Tobacco Use [...] - Historical ProviderMD - 05/15/2019 5:00 AM MULTIPLE PUNCH PRESS OPERATOR Chart Check - Review Order Profile Entered On: 05/15/2019 5:23 EST Performed On: 05/15/2019 5:00 EST by BORIS OVALLE, Flexographic Printing Machinist-Nursing Chart Check Powerplans Initiated/Discontinued as Appropriate : Yes All Active Orders Reviewed : Yes BORIS OVALLE, Flexographic Printing Machinist-Nursing - 05/15/2019 5:23 EST Electronically signed by Angelika [facility] Conversion Low Raw Sugar Cutter Cerner at 07/02/2022 4:51 PM CDT documented in this encounter Plan of Treatment Not on file documented as of this encounter Visit Diagnoses Not on filedocumented in this encounter
--- OUTSIDE RECORDS SUMMARY | 2024-09-28 08:13 | XMS_ITS | Encounter Summary ---
Author Organization [employer] ([place], [place], [place], [place]) Address [address] [place] [address] Care Team Providers Care Store Administrative Assistant Name Role Phone Unavailable Primary Care Provider Unavailabl e Encounter Details Date Type Department Care Team (Late st Contact Info) Description 05/15/2019 Transcribed Document [facility] Radiology [address] [place] [address] Alba River MD [address] [place] [address] Social History Tobacco Use Types Packs/Day [...] the patient will be going to the [facility] on 05/16/2019 for the same. The patient [...] case management totaled cumulatively to 35 minutes. /[id number] Alba River MD VLS/AQ / VLS / MODL /[id number] documented in this encounter Plan of Treatment Not on file documented as of this encounter Visit Diagnoses Not on filedocumented in this encounter
--- OUTSIDE RECORDS SUMMARY | 2024-09-28 08:13 | XMS_ITS | Encounter Summary ---
Author Organization [employer] ([place], [place], [place], [place]) Address [address] [place] [address] Care Team Providers Care Digital Publishing Specialist Name Role Phone Unavailable Primary Care Provider Unavailabl e Encounter Details Date Type Department Care Team (Late st Contact Info) Description 05/13/2019 Transcribed Document [facility] [place] [address] [place] [address] ProviderLexi MD [address] [place] [address] Social History Tobacco Use Types [...] - Historical ProviderMD - 05/13/2019 7:00 PM STEAM BONE PRESS TENDER Pain Assessment Entered On: 05/14/2019 1:34 EST Performed On: 05/13/2019 23:08 EST by BORIS OVALLE, Director Medical Economics-Nursing Intervention Information: acetaminophen Performed by BORIS OVALLE, Director Medical Economics-Nursing on 05/13/2019 22:08:00 EST acetaminophen,1000mg Oral Pain Assessment Pain Assessment : Follow-up assessment Pain Scale Goal : 4 Pain Scale Used : FACES Pain Intervention, Drug : Medicated Pain Improved by Intervention : Yes BORIS OVALLE, Director Medical Economics-Nursing - 05/14/2019 1:33 EST Pain Scale Intensity : 3 BORIS OVALLE Director Medical Economics-Nursing - 05/14/2019 1:33 EST Image 4 - Images currently included in the form version of this document have not been included in the text rendition version of the form. documented in this encounter Plan of Treatment Not on file documented as of this encounter Visit Diagnoses Not on filedocumented in this encounter
--- OUTSIDE RECORDS SUMMARY | 2024-09-28 08:13 | XMS_ITS | Encounter Summary ---
Author Organization [employer] ([place], [place], [place], [place]) Address [address] [place] [address] Care Team Providers Care Psychiatric Np Name Role Phone Unavailable Primary Care Provider Unavailabl e Encounter Details Date Type Department Care Team (Late st Contact Info) Description 05/15/2019 Transcribed Document [facility] [place] Family Medicine [address] [place] [address] ProviderLexi MD [address] [place] [address] Social History Tobacco Use Types [...] - Historical ProviderMD - 05/15/2019 2:35 PM TRAFFIC CONTROL SPECIALIST Final Discharge Planning Entered On: 05/15/2019 14:36 EST Performed On: 05/15/2019 14:35 EST by SANDRA DEL ANGEL, Care Management-Line Out Worker Final Discharge Planning Discharge Arrangements : Patient [...] Discharge Comment : Patient is accepted to [facility] on Saturday\her nephew will transport SANDRA DEL ANGEL, Care Management-Line Out Worker - 05/15/2019 14:35 EST Final Narrative Note Historical Narrative Note : anticipate d/c to [facility] on Saturday by family SANDRA DEL ANGEL, Care Management-Line Out Worker - 05/13/19 12:01:59 SANDRA DEL ANGEL Care Management-Line Out Worker - 05/15/2019 14:35 EST documented in this encounter Plan of Treatment Not on file documented as of this encounter Visit Diagnoses Not on filedocumented in this encounter
--- OUTSIDE RECORDS SUMMARY | 2024-09-28 08:13 | XMS_ITS | Encounter Summary ---
Author Organization [employer] ([place], [place], [place], [place]) Address [address] [place] [address] Care Team Providers Care Senior Premium Auditor Name Role Phone Unavailable Primary Care Provider Unavailabl e Encounter Details Date Type Department Care Team (Late st Contact Info) Description 05/13/[address] [facility] [place] [address] [place] [address] ProviderLexi MD [address] [place] [address] Social History Tobacco Use Types [...] - Historical ProviderMD - 05/13/2019 2:00 PM HELMET COVERER Pain Assessment Entered On: 05/13/2019 13:11 EST [...]
--- OUTSIDE RECORDS SUMMARY | 2024-09-28 08:13 | XMS_ITS | Encounter Summary ---
Author Organization [employer] ([place], [place], [place], [place]) Address [address] [place] [address] Care Team Providers Care Frit Maker Name Role Phone Unavailable Primary Care Provider Unavailabl e Encounter Details Date Type Department Care Team (Late st Contact Info) Description 05/15/2019 Transcribed Document [facility] [place] [address] [place] [address] ProviderLexi MD [address] [place] [address] Social History Tobacco Use Types [...] - Historical ProviderMD - 05/15/2019 3:50 PM TERRAZZO TILE SETTER Sand Caster Details Entered On: 05/15/2019 15:55 EST Performed [...]
--- OUTSIDE RECORDS SUMMARY | 2024-09-28 08:14 | XMS_ITS | Encounter Summary ---
Author Organization [employer] ([place], [place], [place], [place]) Address [address] [place] [address] Care Team Providers Care Government Minister Name Role Phone Unavailable Primary Care Provider Unavailabl e Encounter Details Date Type Department Care Team (Late st Contact Info) Description 05/12/2019 Transcribed Document [facility] [place] [address] [place] [address] ProviderLexi MD [address] [place] [address] Social History Tobacco Use Types [...] - Historical ProviderMD - 05/12/2019 2:00 PM PRESCRIPTION CLERK LENSES Pain Assessment Entered On: 05/12/2019 16:50 EST [...]
--- OUTSIDE RECORDS SUMMARY | 2024-09-28 08:14 | XMS_ITS | Data Portability ---
Author Organization [place] [facility] [employer] Address [address] [place] [address] Care Team Providers Care Furniture Technician Name Role Phone LILIAN MARINA Primary Care Provider [phone] Assessment No assessment recorded. Plan of Treatment [...] _15_ minutes. Patient's location on this visit: [place] Disclaimer: Patient understands that telephonic visits have [...] Remote Patient Monitoring program. If you agree, [employer] will provide devices and services that will facilitate the provision of RPM. Through devices provided by [employer] , I will be able to remotely [...] and receive Remote Patient Monitoring services from pa, in conjunction with [employer]. As a condition of receiving Remote Patient Monitoring services, I will provide your home telephone number, cell number and email address to [employer] . Terms of Use Information The Terms of Use for the Remote Patient Monitoring services will be included in your welcome box. Please review this document carefully. By using [employer] , you are agreeing to be bound by the Terms of Use document that will be included in your welcome box. If you decide not to receive Remote Patient Monitoring services at any time, you can contact pa or Andrea at [phone]. melissa Not available 01/23/2023 16:37:38 Reason for Referral Referring Physician: Myriam Gil, Family Medicine, Encounter Date: 01/23/2023 Referring Physician: Myriam [facility], Encounter Date: 01/23/2023 Problems Name Problem SNOMED Code Status Onset Date Resolution Date Notes Provider Name and Address Organization Details Recorded Time Essential hypertensio n 43318364 Active 2022 Myriam cunha, HEATING AND VENTILATING WORKER [address] , [place], [address], [facility] 16:38:56 Hyperglycem ia due to type 2 diabetes mellitus 8780327085620 09 Active 2022 Myriam cunha, HEATING AND VENTILATING WORKER [address] , [place], [address], [facility] [employer] [facility] 16:39:10 Problem Notes None recorded. Procedures Surgical History Date Name Laterality Status Provider Name and Address Organization Details Recorded Time [facility] 01/23/2023 16:10:19 Hip Replacement completed [facility] 01/23/2023 16:10:39 procedure on ankle completed [facility] 01/23/2023 16:10:50 procedure on wrist completed [facility] 01/23/2023 16:11:00 Cataract Surgery completed [facility] 01/23/2023 16:11:20 Imaging Results None recorded. Procedure Notes None recorded. Medical Equipment None Reported. Allergies Allergen ID Allergen Name Allergen Category Reaction Reaction Severity Criticality Documentation Date Start Date Code Code System Note Provider Name and Address Organization Details Recorded Time Product containin g penicilli n (product) medicatio n Not available Not available Not available 01/23/2023 26673 [id number] SNOMED [facility] 16:22:37 Medications Name Sig Start [...] Updated DateTime 01/23/2023 157.48 cm 40.2 kg/m2 51330.32 g Stacey Elizondocker [facility] 01/23/2023 16:08:56 Social History Question Answer Notes LastModified by Organizat ion Details LastModified Time Tobacco Smoking Status Former Smoker QUIT IN 1999 Stacey Brenden [facility] 01/23/2023 16:10:05 What Is Your Level Of Caffeine Consumption? Heavy 1 CUP OF COFFEE DAILY AND 2 DIET SODAS (16OZ) DAILY [id number] Information not available 01/23/2023 Sex: Unknown Functional Status Question Answer Note LastModified by Organization D etails LastModified Time What is your level of alcohol consumption? None [email or web address] Information not available 01/23/2023 Mental Status None [...] Code Diagnosis Note [id number] Myriam Hein-Nomi er, HEATING AND VENTILATING WORKER PS_Provid er Schedule [address] [place] [address] 01/23/2023 15:58:55 01/23/2023 16:44:18 Type 2 diabetes mellitus 96310356 E11.65 Essential hypertension 33645097 I10 Health Concerns Section Related Observation LastModified by Organization Detai ls LastModified Time None Recorded Concern Status LastModified by Organization Details LastModified Time None Recorded Advance Directives Directive None Recorded Payers Insurance Date Sequence Insurance Name Policy Number Policy Vieira Covered Member ID Vieira Member ID Guarantor Name 04/16/2023 1 [place] Dominga L Duglas [id number] Dominga Claypool 04/16/2023 1 [facility] (MEDICARE SUPPLEMENT) Dominga Duglas [id number] Dominga Claypool 04/16/2023 [place] Dominga L Duglas [id number] Dominga Claypool 09/13/2023 2 [employer] (MEDICARE SUPPLEMENT) Dominga Duglas [id number] Dominga Duglas Notes Date Note Type Note Provider Name [...] Risk Factorsdiabetes; obesity [place], [place] Location: HomeSession Start Time: 4:31 pmSession End Time: 4:46 pmPatient Gives Verbal Consent for this Visit: YesCC: HTN and DMOngoing Issues: Myriam Jorgensen NP [address], [place], [address], [facility] 01/23/2023 16:44:11 OBGyn Episode No OBEpisode recorded.
--- OUTSIDE RECORDS SUMMARY | 2024-09-28 08:14 | XMS_ITS | Encounter Summary ---
Author Organization [employer] ([place], [place], [place], [place]) Address [address] [place] [address] Care Team Providers Care Decorative Engraver Apprentice Name Role Phone Unavailable Primary Care Provider Unavailabl e Encounter Details Date Type Department Care Team (Late st Contact Info) Description 05/14/2019 Transcribed Document [facility] Radiology [address] [place] [address] Fernando River MD [address] [place] [address] Social History Tobacco Use Types Packs/Day [...] and CM reported she is accepted [facility] on Discussed with patient and nursing and [...] mg= 2 Tab, Oral, Q6HInt Vitamin D2, 83697 Units= 1 Cap, Oral, Saturday Zofran, 4 [...]
--- OUTSIDE RECORDS SUMMARY | 2024-09-28 08:14 | XMS_ITS | Data Portability ---
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 Surgeries None recorded. Imaging CT, chest + abdomen + pelvis, w/ contrast - iv contrast only 2024 025 [id number] [facility] (Centralized Scheduling), [address] , [place], [address], 09/02/2024 09:59:11 CT, chest + abdomen + pelvis, w/ contrast 2024 025 [id number] [facility] (Centralized Scheduling), [address], [place], [address], 06/26/2024 09:24:41 Medication Orders None recorded. Patient TargetsNo targets recorded. Patient InstructionsNo instructions recorded. 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 ([facility]) [address] , [place], [address], 09/11/2023 09:44:37 09/11/19 24 09/11/2023 CBC AUTO W DIFF RBC 4.9 M/mm3 4.2-6. 4 Not Available [facility] ([facility]) [address] , [place], [address], 09/11/2023 09:44:37 09/11/19 24 09/11/2023 CBC AUTO W DIFF HGB 14.5 gm/dL 12.5-1 6.0 Not Available [facility] ([facility]) [address] , [place], [address], 09/11/2023 09:44:37 09/11/19 24 09/11/2023 CBC AUTO W DIFF HCT 44.1 % 37.0-4 7.0 Not Available [facility] ([facility]) [address] , [place], [address], 09/11/2023 09:44:37 09/11/19 24 09/11/2023 CBC AUTO W DIFF MCV 89.5 fL 78-100 Not Available [facility] ([facility]) [address] , [place], [address], 09/11/2023 09:44:37 09/11/19 24 09/11/2023 CBC AUTO W DIFF MCH 29.4 pg 27-31 Not Available [facility] ([facility]) [address] , [place], [address], 09/11/2023 09:44:37 09/11/19 24 09/11/2023 CBC AUTO W DIFF MCHC 32.9 g/dL 32-36 Not Available [facility] ([facility]) [address] , [place], [address], 09/11/2023 09:44:37 09/11/19 24 09/11/2023 CBC AUTO W DIFF RDW 13.5 % 11.5-1 4.0 Not Available [facility] ([facility]) [address] , [place], [address], 09/11/2023 09:44:37 09/11/19 24 09/11/2023 CBC AUTO W DIFF platelet count 253 K/uL 150-45 0 Not Available [facility] ([facility]) [address] , [place], [address], 09/11/2023 09:44:37 09/11/19 24 09/11/2023 CBC AUTO W DIFF MPV 10.0 fL 6-9.5 high Not Available [facility] ([facility]) [address] , [place], [address], 09/11/2023 09:44:37 09/11/19 24 09/11/2023 CBC AUTO W DIFF neutrophil% 72.4 % 43-65 high Not Available [facility] ([facility]) [address] , [place], [address], 09/11/2023 09:44:37 09/11/19 24 09/11/2023 CBC AUTO W DIFF lymphocyte% 12.4 % 20.5-4 5.5 low Not Available [facility] ([facility]) [address] [place], [address], 09/11/2023 09:44:37 09/11/19 24 09/11/2023 CBC AUTO W DIFF monocyte% 8.9 % 5.5-11 .7 Not Available [facility] ([facility]) [address] [place], [address], 09/11/2023 09:44:37 09/11/19 24 09/11/2023 CBC AUTO W DIFF eosinophil% 4.8 % 0.9-2. 9 high Not Available [facility] ([facility]) [address] [place], [address], 09/11/2023 09:44:37 09/11/19 24 09/11/2023 CBC AUTO W DIFF basophil% 0.8 % 0.2-1. 0 Not Available [facility] ([facility]) [address] [place], [address], 09/11/2023 09:44:37 09/11/19 24 09/11/2023 CBC AUTO W DIFF immature granulocytes % 0.7 % 0.0-0. 8 Not Available [facility] ([facility]) [address] [place], [address], 09/11/2023 09:44:37 09/11/19 24 09/11/2023 CBC AUTO W DIFF nucleated red blood cells % 0.0 % Not Available [facility] ([facility]) [address] [place], [address], 09/11/2023 09:44:37 09/11/19 24 09/11/2023 CBC AUTO W DIFF neutrophil# 6.0 K/uL 2.2-4. 8 high Not Available [facility] ([facility]) [address] [place], [address], 09/11/2023 09:44:37 09/11/19 24 09/11/2023 CBC AUTO W DIFF lymphocyte# 1.0 cell/ mcL 1.3-2. 9 low Not Available [facility] ([facility]) [address], [place], [address], 09/11/2023 09:44:37 09/11/19 24 09/11/2023 CBC AUTO W DIFF monocyte# 0.7 cell/ mcL 0.3-0. 8 Not Available [facility] ([facility]) [address] [place], [address], 09/11/2023 09:44:37 09/11/19 24 09/11/2023 CBC AUTO W DIFF eosinophil# 0.4 cell/ mcL 0-0.2 high Not Available [facility] ([facility]) [address] [place], [address], 09/11/2023 09:44:37 09/11/19 24 09/11/2023 CBC AUTO W DIFF basophil# 0.1 cell/ mcL 0.0-1. 0 Not Available [facility] ([facility]) [address] [facility], [place], [address], 09/11/2023 09:44:37 09/11/19 24 09/11/2023 CBC AUTO W DIFF immature gramulocytes # 0.06 K/uL Not Available [facility] ([facility]) [address] [place], [address], 09/11/2023 09:44:37 09/11/19 24 09/11/2023 CBC AUTO W DIFF nucleated red blood cells # 0.00 K/uL Not Available [facility] ([facility]) [address] [place], [address], 09/11/2023 09:44:37 09/11/19 24 09/11/2023 CBC AUTO W DIFF manual differential NO Not Available [facility] ([facility]) [address] [place], [address], 09/11/2023 09:44:37 09/11/19 24 09/11/2023 COMP METAB OLIC PANEL sodium 139 mmol/ L 136-14 5 Not Available [facility] ([facility]) [address] , [place], [address], 09/11/2023 10:06:50 09/11/19 24 09/11/2023 COMP METAB OLIC PANEL potassium 4.0 mmol/ L 3.6-5. 0 Not Available [facility] ([facility]) [address] , [place], [address], 09/11/2023 10:06:50 09/11/19 24 09/11/2023 COMP METAB OLIC PANEL chloride 99 mmol/ L 98-107 Not Available [facility] ([facility]) [address] , [place], [address], 09/11/2023 10:06:50 09/11/19 24 09/11/2023 COMP METAB OLIC PANEL carbon dioxide 32.0 mmol/ L 21.0-3 2.0 Not Available [facility] ([facility]) [address] [place], [address], 09/11/2023 10:06:50 09/11/19 24 09/11/2023 COMP METAB OLIC PANEL anion gap 12.0 Not Available [facility] ([facility]) [address] [place], [address], 09/11/2023 10:06:50 09/11/19 24 09/11/2023 COMP METAB OLIC PANEL glucose 140 mg/dL 70-120 high Not Available [facility] ([facility]) [address] [place], [address], 09/11/2023 10:06:50 09/11/19 24 09/11/2023 COMP METAB OLIC PANEL BUN 15 mg/dL 7-18 Not Available [facility] ([facility]) [address], [place], [address], 09/11/2023 10:06:50 09/11/19 24 09/11/2023 COMP METAB OLIC PANEL creatinine 1.1 mg/dL 0.6-1. 3 Not Available [facility] ([facility]) [address], [place], [address], 09/11/2023 10:06:50 09/11/19 24 09/11/2023 COMP METAB OLIC PANEL glomerular filtration rate TNP mlper min 60- TEST NOT PERFO RMED GFR has only been valid ated from 18 to 70 years of age. Not Available [facility] ([facility]) [address] , [place], [address], 09/11/2023 10:06:50 09/11/19 24 09/11/2023 COMP METAB OLIC PANEL total protein 7.2 g/dL 6.4-8. 2 Not Available [facility] ([facility]) [address] , [place], [address], 09/11/2023 10:06:50 09/11/19 24 09/11/2023 COMP METAB OLIC PANEL albumin 4.1 g/dL 3.4-5. 0 Not Available [facility] ([facility]) [address] , [place], [address], 09/11/2023 10:06:50 09/11/19 24 09/11/2023 COMP METAB OLIC PANEL globulin 3.1 Not Available [facility] ([facility]) [address] , [place], [address], 09/11/2023 10:06:50 09/11/19 24 09/11/2023 COMP METAB OLIC PANEL alb/glob ratio 1.3 0.7-2 Not Available [facility] ([facility]) [address], [place], [address], 09/11/2023 10:06:50 09/11/19 24 09/11/2023 COMP METAB OLIC PANEL calcium 9.6 mg/dL 8.5-10 .5 Not Available [facility] ([facility]) [address], [place], [address], 09/11/2023 10:06:50 09/11/19 24 09/11/2023 COMP METAB OLIC PANEL bilirubin total 0.50 mg/dL 0.10-1 .00 Not Available [facility] ([facility]) [address] , [place], [address], 09/11/2023 10:06:50 09/11/19 24 09/11/2023 COMP METAB OLIC PANEL AST (SGOT) 12 U/L 0-37 Not Available [facility] ([facility]) [address], [place], [address], 09/11/2023 10:06:50 09/11/19 24 09/11/2023 COMP METAB OLIC PANEL ALT (SGPT) 17 U/L 0-65 Not Available [facility] ([facility]) [address], [place], [address], 09/11/2023 10:06:50 09/11/19 24 09/11/2023 COMP METAB OLIC PANEL alk phosphatase 112 U/L 46-116 Not Available [facility] ([facility]) [address] , [place], [address], 09/11/2023 10:06:50 12/03/19 24 12/03/2023 CBC AUTO W DIFF WBC 8.1 K/uL 4.0-10 .5 Not Available [facility] ([facility]) [address] , [place], [address], 12/03/2023 09:59:25 12/03/19 24 12/03/2023 CBC AUTO W DIFF RBC 4.5 M/mm3 4.2-6. 4 Not Available [facility] ([facility]) [address] , [place], [address], 12/03/2023 09:59:25 12/03/19 24 12/03/2023 CBC AUTO W DIFF HGB 13.3 gm/dL 12.5-1 6.0 Not Available [facility] ([facility]) [address] , [place], [address], 12/03/2023 09:59:25 12/03/19 24 12/03/2023 CBC AUTO W DIFF HCT 40.8 % 37.0-4 7.0 Not Available [facility] ([facility]) [address] , [place], [address], 12/03/2023 09:59:25 12/03/19 24 12/03/2023 CBC AUTO W DIFF MCV 90.5 fL 78-100 Not Available [facility] ([facility]) [address] , [place], [address], 12/03/2023 09:59:25 12/03/19 24 12/03/2023 CBC AUTO W DIFF MCH 29.5 pg 27-31 Not Available [facility] ([facility]) [address] , [place], [address], 12/03/2023 09:59:25 12/03/19 24 12/03/2023 CBC AUTO W DIFF MCHC 32.6 g/dL 32-36 Not Available [facility] ([facility]) [address] , [place], [address], 12/03/2023 09:59:25 12/03/19 24 12/03/2023 CBC AUTO W DIFF RDW 13.5 % 11.5-1 4.0 Not Available [facility] ([facility]) [address], [place], [address], 12/03/2023 09:59:25 12/03/19 24 12/03/2023 CBC AUTO W DIFF platelet count 234 K/uL 150-45 0 Not Available [facility] ([facility]) [address], [place], [address], 12/03/2023 09:59:25 12/03/19 24 12/03/2023 CBC AUTO W DIFF MPV 9.8 fL 6-9.5 high Not Available [facility] ([facility]) [address], [place], [address], 12/03/2023 09:59:25 12/03/19 24 12/03/2023 CBC AUTO W DIFF neutrophil% 66.9 % 43-65 high Not Available [facility] ([facility]) [address] , [place], [address], 12/03/2023 09:59:25 12/03/19 24 12/03/2023 CBC AUTO W DIFF lymphocyte% 16.2 % 20.5-4 5.5 low Not Available [facility] ([facility]) [address] , [place], [address], 12/03/2023 09:59:25 12/03/19 24 12/03/2023 CBC AUTO W DIFF monocyte% 9.4 % 5.5-11 .7 Not Available [facility] ([facility]) [address] , [place], [address], 12/03/2023 09:59:25 12/03/19 24 12/03/2023 CBC AUTO W DIFF eosinophil% 6.1 % 0.9-2. 9 high Not Available [facility] ([facility]) [address] , [place], [address], 12/03/2023 09:59:25 12/03/19 24 12/03/2023 CBC AUTO W DIFF basophil% 0.7 % 0.2-1. 0 Not Available [facility] ([facility]) [address] [place], [address], 12/03/2023 09:59:25 12/03/19 24 12/03/2023 CBC AUTO W DIFF immature granulocytes % 0.7 % 0.0-0. 8 Not Available [facility] ([facility]) [address] [place], [address], 12/03/2023 09:59:25 12/03/19 24 12/03/2023 CBC AUTO W DIFF nucleated red blood cells % 0.0 % Not Available [facility] ([facility]) [address] [place], [address], 12/03/2023 09:59:25 12/03/19 24 12/03/2023 CBC AUTO W DIFF neutrophil# 5.4 K/uL 2.2-4. 8 high Not Available [facility] ([facility]) [address] [place], [address], 12/03/2023 09:59:25 12/03/19 24 12/03/2023 CBC AUTO W DIFF lymphocyte# 1.3 cell/ mcL 1.3-2. 9 Not Available [facility] ([facility]) [address] [place], [address], 12/03/2023 09:59:25 12/03/19 24 12/03/2023 CBC AUTO W DIFF monocyte# 0.8 cell/ mcL 0.3-0. 8 Not Available [facility] ([facility]) [address] [place], [address], 12/03/2023 09:59:25 12/03/19 24 12/03/2023 CBC AUTO W DIFF eosinophil# 0.5 cell/ mcL 0-0.2 high Not Available [facility] ([facility]) [address] [place], [address], 12/03/2023 09:59:25 12/03/19 24 12/03/2023 CBC AUTO W DIFF basophil# 0.1 cell/ mcL 0.0-1. 0 Not Available [facility] ([facility]) [address], [place], [address], 12/03/2023 09:59:25 12/03/19 24 12/03/2023 CBC AUTO W DIFF immature gramulocytes # 0.06 K/uL Not Available [facility] ([facility]) [address], [place], [address], 12/03/2023 09:59:25 12/03/19 24 12/03/2023 CBC AUTO W DIFF nucleated red blood cells # 0.00 K/uL Not Available [facility] ([facility]) [address], [place], [address], 12/03/2023 09:59:25 12/03/19 24 12/03/2023 CBC AUTO W DIFF manual differential NO Not Available [facility] ([facility]) [address], [place], [address], 12/03/2023 09:59:25 12/03/19 24 12/03/2023 COMP METAB OLIC PANEL sodium 140 mmol/ L 136-14 5 Not Available [facility] ([facility]) [address], [place], [address], 12/03/2023 10:38:18 12/03/19 24 12/03/2023 COMP METAB OLIC PANEL potassium 3.5 mmol/ L 3.6-5. 0 low Not Available [facility] ([facility]) [address], [place], [address], 12/03/2023 10:38:18 12/03/19 24 12/03/2023 COMP METAB OLIC PANEL chloride 100 mmol/ L 98-107 Not Available [facility] ([facility]) [address] , [place], [address], 12/03/2023 10:38:18 12/03/19 24 12/03/2023 COMP METAB OLIC PANEL carbon dioxide 33.6 mmol/ L 21.0-3 2.0 high Not Available [facility] ([facility]) [address], [place], [address], 12/03/2023 10:38:18 12/03/19 24 12/03/2023 COMP METAB OLIC PANEL anion gap 9.9 Not Available [facility] ([facility]) [address] , [place], [address], 12/03/2023 10:38:18 12/03/19 24 12/03/2023 COMP METAB OLIC PANEL glucose 136 mg/dL 70-120 high Not Available [facility] ([facility]) [address], [place], [address], 12/03/2023 10:38:18 12/03/19 24 12/03/2023 COMP METAB OLIC PANEL BUN 8 mg/dL 7-18 Not Available [facility] ([facility]) [address] , [place], [address], 12/03/2023 10:38:18 12/03/19 24 12/03/2023 COMP METAB OLIC PANEL creatinine 1.0 mg/dL 0.6-1. 3 Not Available [facility] ([facility]) [address] [place], [address], 12/03/2023 10:38:18 12/03/19 24 12/03/2023 COMP METAB OLIC PANEL glomerular filtration rate TNP mlper min 60- TEST NOT PERFO RMED GFR has only been valid ated from 18 to 70 years of age. Not Available [facility] ([facility]) [address], [place], [address], 12/03/2023 10:38:18 12/03/19 24 12/03/2023 COMP METAB OLIC PANEL total protein 6.5 g/dL 6.4-8. 2 Not Available [facility] ([facility]) [address], [place], [address], 12/03/2023 10:38:18 12/03/19 24 12/03/2023 COMP METAB OLIC PANEL albumin 3.5 g/dL 3.4-5. 0 Not Available [facility] ([facility]) [address], [place], [address], 12/03/2023 10:38:18 12/03/19 24 12/03/2023 COMP METAB OLIC PANEL globulin 3.0 Not Available [facility] ([facility]) [address] , [place], [address], 12/03/2023 10:38:18 12/03/19 24 12/03/2023 COMP METAB OLIC PANEL alb/glob ratio 1.2 0.7-2 Not Available [facility] ([facility]) [address], [place], [address], 12/03/2023 10:38:18 12/03/19 24 12/03/2023 COMP METAB OLIC PANEL calcium 9.3 mg/dL 8.5-10 .5 Not Available [facility] ([facility]) [address] , [place], [address], 12/03/2023 10:38:18 12/03/19 24 12/03/2023 COMP METAB OLIC PANEL bilirubin total 0.40 mg/dL 0.10-1 .00 Not Available [facility] ([facility]) [address] , [place], [address], 12/03/2023 10:38:18 12/03/19 24 12/03/2023 COMP METAB OLIC PANEL AST (SGOT) 11 U/L 0-37 Not Available [facility] ([facility]) [address], [place], [address], 12/03/2023 10:38:18 12/03/19 24 12/03/2023 COMP METAB OLIC PANEL ALT (SGPT) 13 U/L 0-65 Not Available [facility] ([facility]) [address], [place], [address], 12/03/2023 10:38:18 12/03/19 24 12/03/2023 COMP METAB OLIC PANEL alk phosphatase 114 U/L 46-116 Not Available [facility] ([facility]) [address] , [place], [address], 12/03/2023 10:38:18 03/03/20 24 03/03/2024 CBC AUTO W DIFF WBC 7.1 K/uL 4.0-10 .5 Not Available [facility] ([facility]) [address] , [place], [address], 03/03/2024 09:46:19 03/03/20 24 03/03/2024 CBC AUTO W DIFF RBC 4.7 M/mm3 4.2-6. 4 Not Available [facility] ([facility]) [address] , [place], [address], 03/03/2024 09:46:19 03/03/20 24 03/03/2024 CBC AUTO W DIFF HGB 13.5 gm/dL 12.5-1 6.0 Not Available [facility] ([facility]) [address] , [place], [address], 03/03/2024 09:46:19 03/03/20 24 03/03/2024 CBC AUTO W DIFF HCT 41.5 % 37.0-4 7.0 Not Available [facility] ([facility]) [address] , [place], [address], 03/03/2024 09:46:19 03/03/20 24 03/03/2024 CBC AUTO W DIFF MCV 88.9 fL 78-100 Not Available [facility] ([facility]) [address] , [place], [address], 03/03/2024 09:46:19 03/03/20 24 03/03/2024 CBC AUTO W DIFF MCH 28.9 pg 27-31 Not Available [facility] ([facility]) [address] , [place], [address], 03/03/2024 09:46:19 03/03/20 24 03/03/2024 CBC AUTO W DIFF MCHC 32.5 g/dL 32-36 Not Available [facility] ([facility]) [address] , [place], [address], 03/03/2024 09:46:19 03/03/20 24 03/03/2024 CBC AUTO W DIFF RDW 12.6 % 11.5-1 4.0 Not Available [facility] ([facility]) [address] , [place], [address], 03/03/2024 09:46:19 03/03/20 24 03/03/2024 CBC AUTO W DIFF platelet count 187 K/uL 150-45 0 Not Available [facility] ([facility]) [address] , [place], [address], 03/03/2024 09:46:19 03/03/20 24 03/03/2024 CBC AUTO W DIFF MPV 10.6 fL 6-9.5 high Not Available [facility] ([facility]) [address] , [place], [address], 03/03/2024 09:46:19 03/03/20 24 03/03/2024 CBC AUTO W DIFF neutrophil% 63.2 % 43-65 Not Available [facility] ([facility]) [address] , [place], [address], 03/03/2024 09:46:19 03/03/20 24 03/03/2024 CBC AUTO W DIFF lymphocyte% 16.8 % 20.5-4 5.5 low Not Available [facility] ([facility]) [address] , [place], [address], 03/03/2024 09:46:19 03/03/20 24 03/03/2024 CBC AUTO W DIFF monocyte% 9.4 % 5.5-11 .7 Not Available [facility] ([facility]) [address], [place], [address], 03/03/2024 09:46:19 03/03/20 24 03/03/2024 CBC AUTO W DIFF eosinophil% 7.6 % 0.9-2. 9 high Not Available [facility] ([facility]) [address] , [place], [address], 03/03/2024 09:46:19 03/03/20 24 03/03/2024 CBC AUTO W DIFF basophil% 1.0 % 0.2-1. 0 Not Available [facility] ([facility]) [address] , [place], [address], 03/03/2024 09:46:19 03/03/20 24 03/03/2024 CBC AUTO W DIFF immature granulocytes % 2.0 % 0.0-0. 8 high Not Available [facility] ([facility]) [address] [place], [address], 03/03/2024 09:46:19 03/03/20 24 03/03/2024 CBC AUTO W DIFF nucleated red blood cells % 0.0 % Not Available [facility] ([facility]) [address] [place], [address], 03/03/2024 09:46:19 03/03/20 24 03/03/2024 CBC AUTO W DIFF neutrophil# 4.5 K/uL 2.2-4. 8 Not Available [facility] ([facility]) [address], [place], [address], 03/03/2024 09:46:19 03/03/20 24 03/03/2024 CBC AUTO W DIFF lymphocyte# 1.2 cell/ mcL 1.3-2. 9 low Not Available [facility] ([facility]) [address] [facility], [place], [address], 03/03/2024 09:46:19 03/03/20 24 03/03/2024 CBC AUTO W DIFF monocyte# 0.7 cell/ mcL 0.3-0. 8 Not Available [facility] ([facility]) [address], [place], [address], 03/03/2024 09:46:19 03/03/20 24 03/03/2024 CBC AUTO W DIFF eosinophil# 0.5 cell/ mcL 0-0.2 high Not Available [facility] ([facility]) [address] [place], [address], 03/03/2024 09:46:19 03/03/20 24 03/03/2024 CBC AUTO W DIFF basophil# 0.1 cell/ mcL 0.0-1. 0 Not Available [facility] ([facility]) [address] [place], [address], 03/03/2024 09:46:19 03/03/20 24 03/03/2024 CBC AUTO W DIFF immature gramulocytes # 0.14 K/uL Not Available [facility] ([facility]) [address] [place], [address], 03/03/2024 09:46:19 03/03/20 24 03/03/2024 CBC AUTO W DIFF nucleated red blood cells # 0.00 K/uL Not Available [facility] ([facility]) [address] [place], [address], 03/03/2024 09:46:19 03/03/20 24 03/03/2024 CBC AUTO W DIFF manual differential NO Not Available [facility] ([facility]) [address], [place], [address], 03/03/2024 09:46:19 03/03/20 24 03/03/2024 COMP METAB OLIC PANEL sodium 142 mmol/ L 136-14 5 Not Available [facility] ([facility]) [address], [place], [address], 03/03/2024 11:18:32 03/03/20 24 03/03/2024 COMP METAB OLIC PANEL potassium 3.6 mmol/ L 3.6-5. 0 Not Available [facility] ([facility]) [address], [place], [address], 03/03/2024 11:18:32 03/03/20 24 03/03/2024 COMP METAB OLIC PANEL chloride 103 mmol/ L 98-107 Not Available [facility] ([facility]) [address], [place], [place], [address], 03/03/2024 11:18:32 03/03/20 24 03/03/2024 COMP METAB OLIC PANEL carbon dioxide 31.1 mmol/ L 21.0-3 2.0 Not Available [facility] ([facility]) [address], [place], [address], 03/03/2024 11:18:32 03/03/20 24 03/03/2024 COMP METAB OLIC PANEL anion gap 11.5 Not Available [facility] ([facility]) [address], [place], [address], 03/03/2024 11:18:32 03/03/20 24 03/03/2024 COMP METAB OLIC PANEL glucose 97 mg/dL 70-120 Not Available [facility] ([facility]) [address], [place], [address], 03/03/2024 11:18:32 03/03/20 24 03/03/2024 COMP METAB OLIC PANEL BUN 14 mg/dL 7-18 Not Available [facility] ([facility]) [address], [place], [address], 03/03/2024 11:18:32 03/03/20 24 03/03/2024 COMP METAB OLIC PANEL creatinine 0.9 mg/dL 0.6-1. 3 Not Available [facility] ([facility]) [address], [place], [address], 03/03/2024 11:18:32 03/03/20 24 03/03/2024 COMP METAB [...] kenyon ing kiney funct ion. Not Available [facility] ([facility]) [address], [place], [address], 03/03/2024 11:18:32 03/03/20 24 03/03/2024 COMP METAB OLIC PANEL total protein 7.0 g/dL 6.4-8. 2 Not Available [facility] ([facility]) [address], [place], [address], 03/03/2024 11:18:32 03/03/20 24 03/03/2024 COMP METAB OLIC PANEL albumin 3.7 g/dL 3.4-5. 0 Not Available [facility] ([facility]) [address], [place], [address], 03/03/2024 11:18:32 03/03/20 24 03/03/2024 COMP METAB OLIC PANEL globulin 3.3 Not Available [facility] ([facility]) [address], [place], [address], 03/03/2024 11:18:32 03/03/20 24 03/03/2024 COMP METAB OLIC PANEL alb/glob ratio 1.1 0.7-2 Not Available [facility] ([facility]) [address], [place], [address], 03/03/2024 11:18:32 03/03/20 24 03/03/2024 COMP METAB OLIC PANEL calcium 9.2 mg/dL 8.5-10 .5 Not Available [facility] ([facility]) [address] , [place], [address], 03/03/2024 11:18:32 03/03/20 24 03/03/2024 COMP METAB OLIC PANEL bilirubin total 0.40 mg/dL 0.10-1 .00 Not Available [facility] ([facility]) [address], [place], [address], 03/03/2024 11:18:32 03/03/20 24 03/03/2024 COMP METAB OLIC PANEL AST (SGOT) 12 U/L 0-37 Not Available [facility] ([facility]) [address] , [place], [address], 03/03/2024 11:18:32 03/03/20 24 03/03/2024 COMP METAB OLIC PANEL ALT (SGPT) 11 U/L 0-65 Not Available [facility] ([facility]) [address] , [place], [address], 03/03/2024 11:18:32 03/03/20 24 03/03/2024 COMP METAB OLIC PANEL alk phosphatase 117 U/L 46-116 high Not Available [facility] ([facility]) [address], [place], [address], 03/03/2024 11:18:32 06/03/19 25 06/02/2024 CBC AUTO W DIFF WBC 6.3 K/uL 4.0-10 .5 Not Available [facility] ([facility]) [address], [place], [address], 06/02/2024 10:02:27 06/03/19 25 06/02/2024 CBC AUTO W DIFF RBC 4.3 M/mm3 4.2-6. 4 Not Available [facility] ([facility]) [address], [place], [address], 06/02/2024 10:02:27 06/03/19 25 06/02/2024 CBC AUTO W DIFF HGB 12.3 gm/dL 12.5-1 6.0 low Not Available [facility] ([facility]) [address] , [place], [address], 06/02/2024 10:02:27 06/03/19 25 06/02/2024 CBC AUTO W DIFF HCT 37.9 % 37.0-4 7.0 Not Available [facility] ([facility]) [address], [place], [address], 06/02/2024 10:02:27 06/03/19 25 06/02/2024 CBC AUTO W DIFF MCV 88.3 fL 78-100 Not Available [facility] ([facility]) [address], [place], [address], 06/02/2024 10:02:27 06/03/19 25 06/02/2024 CBC AUTO W DIFF MCH 28.7 pg 27-31 Not Available [facility] ([facility]) [address], [place], [address], 06/02/2024 10:02:27 06/03/19 25 06/02/2024 CBC AUTO W DIFF MCHC 32.5 g/dL 32-36 Not Available [facility] ([facility]) [address] , [place], [address], 06/02/2024 10:02:27 06/03/19 25 06/02/2024 CBC AUTO W DIFF RDW 13.3 % 11.5-1 4.0 Not Available [facility] ([facility]) [address] , [place], [address], 06/02/2024 10:02:27 06/03/19 25 06/02/2024 CBC AUTO W DIFF platelet count 190 K/uL 150-45 0 Not Available [facility] ([facility]) [address], [place], [address], 06/02/2024 10:02:27 06/03/19 25 06/02/2024 CBC AUTO W DIFF MPV 10.8 fL 6-9.5 high Not Available [facility] ([facility]) [address], [place], [address], 06/02/2024 10:02:27 06/03/19 25 06/02/2024 CBC AUTO W DIFF neutrophil% 63.2 % 43-65 Not Available [facility] ([facility]) [address] [place], [address], 06/02/2024 10:02:27 06/03/19 25 06/02/2024 CBC AUTO W DIFF lymphocyte% 16.9 % 20.5-4 5.5 low Not Available [facility] ([facility]) [address] [place], [address], 06/02/2024 10:02:27 06/03/19 25 06/02/2024 CBC AUTO W DIFF monocyte% 11.2 % 5.5-11 .7 Not Available [facility] ([facility]) [address], [place], [address], 06/02/2024 10:02:27 06/03/19 25 06/02/2024 CBC AUTO W DIFF eosinophil% 6.9 % 0.9-2. 9 high Not Available [facility] ([facility]) [address], [place], [address], 06/02/2024 10:02:27 06/03/19 25 06/02/2024 CBC AUTO W DIFF basophil% 0.8 % 0.2-1. 0 Not Available [facility] ([facility]) [address], [place], [address], 06/02/2024 10:02:27 06/03/19 25 06/02/2024 CBC AUTO W DIFF immature granulocytes % 1.0 % 0.0-0. 8 high Not Available [facility] ([facility]) [address], [place], [address], 06/02/2024 10:02:27 06/03/19 25 06/02/2024 CBC AUTO W DIFF nucleated red blood cells % 0.0 % Not Available [facility] ([facility]) [address], [place], [address], 06/02/2024 10:02:27 06/03/19 25 06/02/2024 CBC AUTO W DIFF neutrophil# 4.0 K/uL 2.2-4. 8 Not Available [facility] ([facility]) [address], [place], [address], 06/02/2024 10:02:27 06/03/19 25 06/02/2024 CBC AUTO W DIFF lymphocyte# 1.1 cell/ mcL 1.3-2. 9 low Not Available [facility] ([facility]) [address], [place], [address], 06/02/2024 10:02:27 06/03/19 25 06/02/2024 CBC AUTO W DIFF monocyte# 0.7 cell/ mcL 0.3-0. 8 Not Available [facility] ([facility]) [address] , [place], [address], 06/02/2024 10:02:27 06/03/19 25 06/02/2024 CBC AUTO W DIFF eosinophil# 0.4 cell/ mcL 0-0.2 high Not Available [facility] ([facility]) [address] , [place], [address], 06/02/2024 10:02:27 06/03/19 25 06/02/2024 CBC AUTO W DIFF basophil# 0.1 cell/ mcL 0.0-1. 0 Not Available [facility] ([facility]) [address] , [place], [address], 06/02/2024 10:02:27 06/03/19 25 06/02/2024 CBC AUTO W DIFF immature gramulocytes # 0.06 K/uL Not Available [facility] ([facility]) [address], [place], [address], 06/02/2024 10:02:27 06/03/19 25 06/02/2024 CBC AUTO W DIFF nucleated red blood cells # 0.00 K/uL Not Available [facility] ([facility]) [address], [place], [address], 06/02/2024 10:02:27 06/03/19 25 06/02/2024 CBC AUTO W DIFF manual differential NO Not Available [facility] ([facility]) [address] , [place], [address], 06/02/2024 10:02:27 06/03/19 25 06/02/2024 COMP METAB OLIC PANEL sodium 140 mmol/ L 136-14 5 Not Available [facility] ([facility]) [address] , [place], [address], 06/02/2024 10:10:56 06/03/19 25 06/02/2024 COMP METAB OLIC PANEL potassium 3.6 mmol/ L 3.6-5. 0 Not Available [facility] ([facility]) [address] , [place], [address], 06/02/2024 10:10:56 06/03/19 25 06/02/2024 COMP METAB OLIC PANEL chloride 101 mmol/ L 98-107 Not Available [facility] ([facility]) [address] , [place], [address], 06/02/2024 10:10:56 06/03/19 25 06/02/2024 COMP METAB OLIC PANEL carbon dioxide 32.5 mmol/ L 21.0-3 2.0 high Not Available [facility] ([facility]) [address] , [place], [address], 06/02/2024 10:10:56 06/03/19 25 06/02/2024 COMP METAB OLIC PANEL anion gap 10.1 Not Available [facility] ([facility]) [address] , [place], [address], 06/02/2024 10:10:56 06/03/19 25 06/02/2024 COMP METAB OLIC PANEL glucose 251 mg/dL 70-120 high Not Available [facility] ([facility]) [address] , [place], [address], 06/02/2024 10:10:56 06/03/19 25 06/02/2024 COMP METAB OLIC PANEL BUN 13 mg/dL 7-18 Not Available [facility] ([facility]) [address] , [place], [address], 06/02/2024 10:10:56 06/03/19 25 06/02/2024 COMP METAB OLIC PANEL creatinine 0.9 mg/dL 0.6-1. 3 Not Available [facility] ([facility]) [address] , [place], [address], 06/02/2024 10:10:56 06/03/19 25 06/02/2024 COMP METAB [...] kenyon ing kiney funct ion. Not Available [facility] ([facility]) [address] , [place], [address], 06/02/2024 10:10:56 06/03/19 25 06/02/2024 COMP METAB OLIC PANEL osmolality (calculated) 300 mOsm/ kg 275-30 1 OSMOL ALITY IS A CALCU LATIO N UTILI ZING THE SERUM /PLAS MA SODIU M, GLUCO SE AND UREA NITRO GEN (BUN) LEVEL S. FOR THE MOST ACCUR ATE RESUL T A MEASU RED SERUM OSMOL ALITY IS SUGGE STED. Not Available [facility] ([facility]) [address] , [place], [address], 06/02/2024 10:10:56 06/03/19 25 06/02/2024 COMP METAB OLIC PANEL total protein 6.6 g/dL 6.4-8. 2 Not Available [facility] ([facility]) [address] , [place], [address], 06/02/2024 10:10:56 06/03/19 25 06/02/2024 COMP METAB OLIC PANEL albumin 3.2 g/dL 3.4-5. 0 low Not Available [facility] ([facility]) [address], [place], [address], 06/02/2024 10:10:56 06/03/19 25 06/02/2024 COMP METAB OLIC PANEL globulin 3.4 Not Available [facility] ([facility]) [address], [place], [address], 06/02/2024 10:10:56 06/03/19 25 06/02/2024 COMP METAB OLIC PANEL alb/glob ratio 0.9 0.7-2 Not Available [facility] ([facility]) [address] [facility], [place], [address], 06/02/2024 10:10:56 06/03/19 25 06/02/2024 COMP METAB OLIC PANEL calcium 9.3 mg/dL 8.5-10 .5 Not Available [facility] ([facility]) [address] [facility], [place], [address], 06/02/2024 10:10:56 06/03/19 25 06/02/2024 COMP METAB OLIC PANEL bilirubin total 0.50 mg/dL 0.10-1 .00 Not Available [facility] ([facility]) [address] [facility], [place], [address], 06/02/2024 10:10:56 06/03/19 25 06/02/2024 COMP METAB OLIC PANEL AST (SGOT) 10 U/L 0-37 Not Available [facility] ([facility]) [address], [place], [address], 06/02/2024 10:10:56 06/03/19 25 06/02/2024 COMP METAB OLIC PANEL ALT (SGPT) 19 U/L 0-65 Not Available [facility] ([facility]) [address] [facility], [place], [address], 06/02/2024 10:10:56 06/03/19 25 06/02/2024 COMP METAB OLIC PANEL alk phosphatase 130 U/L 46-116 high Not Available [facility] ([facility]) [address], [place], [address], 06/02/2024 10:10:56 09/03/19 25 09/02/2024 COMP METAB OLIC PANEL sodium 142 mmol/ L 136-14 5 Not Available [facility] ([facility]) [address], [place], [address], 09/02/2024 10:28:32 09/03/19 25 09/02/2024 COMP METAB OLIC PANEL potassium 3.9 mmol/ L 3.6-5. 0 Not Available [facility] ([facility]) [address], [place], [address], 09/02/2024 10:28:32 09/03/19 25 09/02/2024 COMP METAB OLIC PANEL chloride 103 mmol/ L 98-107 Not Available [facility] ([facility]) [address], [place], [address], 09/02/2024 10:28:32 09/03/19 25 09/02/2024 COMP METAB OLIC PANEL carbon dioxide 30.0 mmol/ L 21.0-3 2.0 Not Available [facility] ([facility]) [address], [place], [address], 09/02/2024 10:28:32 09/03/19 25 09/02/2024 COMP METAB OLIC PANEL anion gap 12.9 Not Available [facility] ([facility]) [address], [place], [address], 09/02/2024 10:28:32 09/03/19 25 09/02/2024 COMP METAB OLIC PANEL glucose 111 mg/dL 70-120 Not Available [facility] ([facility]) [address], [place], [address], 09/02/2024 10:28:32 09/03/19 25 09/02/2024 COMP METAB OLIC PANEL BUN 17 mg/dL 7-18 Not Available [facility] ([facility]) [address], [place], [address], 09/02/2024 10:28:32 09/03/19 25 09/02/2024 COMP METAB OLIC PANEL creatinine 1.0 mg/dL 0.6-1. 3 Not Available [facility] ([facility]) [address], [place], [address], 09/02/2024 10:28:32 09/03/19 25 09/02/2024 COMP METAB [...] kenyon ing kiney funct ion. Not Available [facility] ([facility]) [address], [place], [address], 09/02/2024 10:28:32 09/03/19 25 09/02/2024 COMP METAB OLIC PANEL osmolality (calculated) 297 mOsm/ kg 275-30 1 OSMOL ALITY IS A CALCU LATIO N UTILI ZING THE SERUM /PLAS MA SODIU M, GLUCO SE AND UREA NITRO GEN (BUN) LEVEL S. FOR THE MOST ACCUR ATE RESUL T A MEASU RED SERUM OSMOL ALITY IS SUGGE STED. Not Available [facility] ([facility]) [address], [place], [address], 09/02/2024 10:28:32 09/03/19 25 09/02/2024 COMP METAB OLIC PANEL total protein 6.8 g/dL 6.4-8. 2 Not Available [facility] ([facility]) [address], [place], [address], 09/02/2024 10:28:32 09/03/19 25 09/02/2024 COMP METAB OLIC PANEL albumin 3.6 g/dL 3.4-5. 0 Not Available [facility] ([facility]) [address], [place], [address], 09/02/2024 10:28:32 09/03/19 25 09/02/2024 COMP METAB OLIC PANEL globulin 3.2 Not Available [facility] ([facility]) [address], [place], [address], 09/02/2024 10:28:32 09/03/19 25 09/02/2024 COMP METAB OLIC PANEL alb/glob ratio 1.1 0.7-2 Not Available [facility] ([facility]) [address], [place], [address], 09/02/2024 10:28:32 09/03/19 25 09/02/2024 COMP METAB OLIC PANEL calcium 9.2 mg/dL 8.5-10 .5 Not Available [facility] ([facility]) [address], [place], [address], 09/02/2024 10:28:32 09/03/19 25 09/02/2024 COMP METAB OLIC PANEL bilirubin total 0.40 mg/dL 0.10-1 .00 Not Available [facility] ([facility]) [address], [place], [address], 09/02/2024 10:28:32 09/03/19 25 09/02/2024 COMP METAB OLIC PANEL AST (SGOT) 11 U/L 0-37 Not Available [facility] ([facility]) [address] , [place], [address], 09/02/2024 10:28:32 09/03/19 25 09/02/2024 COMP METAB OLIC PANEL ALT (SGPT) 19 U/L 0-65 Not Available [facility] ([facility]) [address], [place], [address], 09/02/2024 10:28:32 09/03/19 25 09/02/2024 COMP METAB OLIC PANEL alk phosphatase 117 U/L 46-116 high Not Available [facility] ([facility]) [address], [place], [address], 09/02/2024 10:28:32 09/03/19 25 09/02/2024 CBC AUTO W DIFF WBC 3.4 K/uL 4.0-10 .5 low Not Available [facility] ([facility]) [address] , [place], [address], 09/02/2024 10:42:36 09/03/19 25 09/02/2024 CBC AUTO W DIFF RBC 5.1 M/mm3 4.2-6. 4 Not Available [facility] ([facility]) [address] , [place], [address], 09/02/2024 10:42:36 09/03/19 25 09/02/2024 CBC AUTO W DIFF HGB 13.9 gm/dL 12.5-1 6.0 Not Available [facility] ([facility]) [address] , [place], [address], 09/02/2024 10:42:36 09/03/19 25 09/02/2024 CBC AUTO W DIFF HCT 43.5 % 37.0-4 7.0 Not Available [facility] ([facility]) [address] , [place], [address], 09/02/2024 10:42:36 09/03/19 25 09/02/2024 CBC AUTO W DIFF MCV 86.0 fL 78-100 Not Available [facility] ([facility]) [address] , [place], [address], 09/02/2024 10:42:36 09/03/19 25 09/02/2024 CBC AUTO W DIFF MCH 27.5 pg 27-31 Not Available [facility] ([facility]) [address] , [place], [address], 09/02/2024 10:42:36 09/03/19 25 09/02/2024 CBC AUTO W DIFF MCHC 32.0 g/dL 32-36 Not Available [facility] ([facility]) [address] , [place], [address], 09/02/2024 10:42:36 09/03/19 25 09/02/2024 CBC AUTO W DIFF RDW 13.0 % 11.5-1 4.0 Not Available [facility] ([facility]) [address], [place], [address], 09/02/2024 10:42:36 09/03/19 25 09/02/2024 CBC AUTO W DIFF platelet count 218 K/uL 150-45 0 Not Available [facility] ([facility]) [address] , [place], [address], 09/02/2024 10:42:36 09/03/19 25 09/02/2024 CBC AUTO W DIFF MPV 10.0 fL 6-9.5 high Not Available [facility] ([facility]) [address] [place], [address], 09/02/2024 10:42:36 09/03/19 25 09/02/2024 CBC AUTO W DIFF neutrophil% 10.4 % 43-65 low Not Available [facility] ([facility]) [address] [place], [address], 09/02/2024 10:42:36 09/03/19 25 09/02/2024 CBC AUTO W DIFF lymphocyte% 45.7 % 20.5-4 5.5 high Not Available [facility] ([facility]) [address] , [place], [address], 09/02/2024 10:42:36 09/03/19 25 09/02/2024 CBC AUTO W DIFF monocyte% 23.4 % 5.5-11 .7 high Not Available [facility] ([facility]) [address], [place], [address], 09/02/2024 10:42:36 09/03/19 25 09/02/2024 CBC AUTO W DIFF eosinophil% 18.4 % 0.9-2. 9 high Not Available [facility] ([facility]) [address], [place], [address], 09/02/2024 10:42:36 09/03/19 25 09/02/2024 CBC AUTO W DIFF basophil% 1.8 % 0.2-1. 0 high Not Available [facility] ([facility]) [address], [place], [address], 09/02/2024 10:42:36 09/03/19 25 09/02/2024 CBC AUTO W DIFF immature granulocytes % 0.3 % 0.0-0. 8 Not Available [facility] ([facility]) [address], [place], [address], 09/02/2024 10:42:36 09/03/19 25 09/02/2024 CBC AUTO W DIFF nucleated red blood cells % 0.0 % Not Available [facility] ([facility]) [address], [place], [address], 09/02/2024 10:42:36 09/03/19 25 09/02/2024 CBC AUTO W DIFF neutrophil# 0.4 K/uL 2.2-4. 8 low Not Available [facility] ([facility]) [address] [place], [address], 09/02/2024 10:42:36 09/03/19 25 09/02/2024 CBC AUTO W DIFF lymphocyte# 1.5 cell/ mcL 1.3-2. 9 Not Available [facility] ([facility]) [address], [place], [address], 09/02/2024 10:42:36 09/03/19 25 09/02/2024 CBC AUTO W DIFF monocyte# 0.8 cell/ mcL 0.3-0. 8 Not Available [facility] ([facility]) [address], [place], [address], 09/02/2024 10:42:36 09/03/19 25 09/02/2024 CBC AUTO W DIFF eosinophil# 0.6 cell/ mcL 0-0.2 high Not Available [facility] ([facility]) [address], [place], [address], 09/02/2024 10:42:36 09/03/19 25 09/02/2024 CBC AUTO W DIFF basophil# 0.1 cell/ mcL 0.0-1. 0 Not Available [facility] ([facility]) [address] [facility], [place], [address], 09/02/2024 10:42:36 09/03/19 25 09/02/2024 CBC AUTO W DIFF immature gramulocytes # 0.01 K/uL Not Available [facility] ([facility]) [address] [facility], [place], [address], 09/02/2024 10:42:36 09/03/19 25 09/02/2024 CBC AUTO W DIFF nucleated red blood cells # 0.00 K/uL Not Available [facility] ([facility]) [address] [place], [address], 09/02/2024 10:42:36 09/03/19 25 09/02/2024 CBC AUTO W DIFF manual differential YES Not Available [facility] ([facility]) [address] [facility], [place], [address], 09/02/2024 10:42:36 09/03/19 25 09/02/2024 CBC AUTO W DIFF segmented neutrophil 11 % 42-76 low Not Available [facility] ([facility]) [address] [facility], [place], [address], 09/02/2024 10:42:36 09/03/19 25 09/02/2024 CBC AUTO W DIFF lymphocyte 44 % 15-41 high Not Available [facility] ([facility]) [address] [facility], [place], [address], 09/02/2024 10:42:36 09/03/19 25 09/02/2024 CBC AUTO W DIFF monocyte 20 % 2-9 high Not Available [facility] ([facility]) [address] [facility], [place], [address], 09/02/2024 10:42:36 09/03/19 25 09/02/2024 CBC AUTO W DIFF eosinophil 19 % 0-3 high Not Available [facility] ([facility]) [address] [facility], [place], [address], 09/02/2024 10:42:36 09/03/19 25 09/02/2024 CBC AUTO W DIFF basophil 5 0-1 high Not Available [facility] ([facility]) [address] [place], [address], 09/02/2024 10:42:36 09/03/19 25 09/02/2024 CBC AUTO W DIFF metamyelocyt e 1 % 0-1 Not Available [facility] ([facility]) [address] [place], [address], 09/02/2024 10:42:36 09/03/19 25 09/02/2024 CBC AUTO W DIFF platelet estimate ADEQUA TE adequa te Not Available [facility] ([facility]) [address] , [place], [address], 09/02/2024 10:42:36 09/03/19 25 09/02/2024 CBC AUTO W DIFF platelet morphology NORMAL normal Not Available [facility] ([facility]) [address], [place], [address], 09/02/2024 10:42:36 09/03/19 25 09/02/2024 CBC AUTO W DIFF RBC morphology NORMAL normal Not Available [facility] ([facility]) [address] , [place], [address], 09/02/2024 10:42:36 09/03/19 25 09/02/2024 LDH (LD) LDH 181 U/L 0-190 Not Available [facility] ([facility]) [address] , [place], [address], 09/02/2024 10:46:50 08/28/19 24 08/27/2023 CT, chest , w/ [place] [facility] [place] [address] [place], [place] [address] Phone: Fax: Name: TAY PURDY Exam Date: 024 : 948 Age 77 years Gender : F Access ion: [id number] [id number] Physic aiden: ENRIQUE LOU Facili ty: [facility] Facili ty HSV: Outpat ient Exam: CT [...] you for referr ing TAY PURDY to [facility]. Legall y authen ticate d by MARISOL TERRAZAS 08-27 10:41: 00 CC'ed Logic: Orderi ng Provid er: CARMINE CAR Attend ing Provid er: CARMINE CAR Referr ing Provid er: CARMINE CAR Admitt ing Provid er: CARMINE CAR [address] - Physical Therapy [address] [place] [address], [id number], 08/30/2023 12:47:44 07/02/19 25 06/30/2024 CT [facility] [address] [place] [address] Phone: Fax: Name: TAY PURDY Exam Date: 025 : 948 Age 78 years Gender : F Access ion: [id number] Physic aiden: WILIAN ESTRADA Facili ty: [facility] Facili ty HSV: Outpat ient Exam: CT [...] for referr ing FABBYANNA TAY Tamayo to [facility]. Legall y authen ticate d by MARY DAVIS 0 06-30 13:59: 23 CC'ed Logic: Orderi ng Provid er: ARELIS CEDENO Attend ing Provid er: ARELIS CEDENO Referr ing Provid er: ARELIS CEDENO Admitt ing Provid er: ARELIS CEDENO [facility] - Physical Therapy [address] [facility], [place], [address], 07/01/2024 08:53:08 07/02/19 25 06/30/2024 CT, chest , w/ contr ast [facility] [address] [place] [address] Phone: Fax: Name: TAY PURDY Exam Date: : 948 Age 78 years Gender : F Access ion: [id number] Physic aiden: WILIAN ESTRADA Facili ty: [facility] Facili ty HSV: Outpat ient Exam: CT CHEST W EXAMIN ATION: CT CHEST WITH IV CONTRA ST INDICA TION:7 8 years Female 948 follic ular lympho ma unsp intra- abdomi nal lymph nodes COMPAR JOSE ELAIS(S ): Chest CT August 27, 2023 TECHNI [...] you for referr ing TAY PURDY to [facility]. Legall y authen ticate d by MARY DAVIS 0 06-30 13:59: 16 CC'ed Logic: Orderi ng Provid er: ARELIS CEDENO Attend ing Provid er: ARELIS CEDENO Referr ing Provid er: ARELIS CEDENO Admitt ing Provid er: ARELIS CEDENO [address] - Physical Therapy [address] [place] [address], [facility], 07/01/2024 08:53:08 Result Notes Documentation Provider Name and Address Organization Details Recorded Time Ct, Chest, W/ Contrast : [facility] [address] [place] [address] Name: TAY FONSECA Exam Date: 06/30/2024 : 1945 Age 78 years Gender: F Physician: WILIAN OLSEN Facility: [facility] Facility HSV: Outpatient Exam: CT CHEST [...] Thank you for referring TAY FONSECA to [facility]. 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 Pt reported that she'd had a heart attack and was having issues with sleeping. SW provided education on sleep hygiene and provided support for pt and encouraged pt to reach out for ongoing needs. [place] Enciso [facility] & [place] 09/11/2023 16:57:34 Procedures Surgical History Date Name Laterality Status Provider Name and Address Organization Details Recorded Time hysterectomy completed Amy SEN [facility] & [place] 03/20/2023 10:33:17 banding of varix of stomach completed Amy SEN [facility] & [place] 03/20/2023 10:34:08 procedure on ankle completed Amy SEN [facility] & [place] 06/03/2023 13:59:58 Imaging Results None recorded. Procedure Notes None recorded. Medical Equipment None Reported. Allergies Allergen ID Allergen Name Allergen Category Reaction Reaction Severity Criticality Documentation Date Start Date Code Code System Note Provider Name and Address Organization Details Recorded Time 614743 Product containin g penicilli n (product) medicatio n Not available Not available Not available 03/20/2023 01023 8001 SNOMED Other react ions and sever ities : 'Adve rse react ion to subst ance' . [facility] [place] 4 10:29:56 Medications Name Sig Start Date [...] Available Not Available Not Available Vitamin D3 53301 active Not Available Not Av ailable Not [...] Updated DateTime 5 157.48 cm 37.5 kg/m2 35026.7 2 g 97.4 [degF] 93 % 93 % 112 /min 20 /min 164/72 mm[Hg] Farhana Gilliam [place] - [facility] & [place] 5 09:29:54 Date Recorded Body weight Oxygen saturation Oxygen saturation in Arterial blood by Pulse oximetry Body temperature Heart rate Respiratory rate Systolic And Diastolic Provider Name and Address Organization Details Last Updated DateTime 5 74673.5 1 g 95 % 95 % 98.3 [degF] 102 /min 18 /min 143/60 mm[Hg] Amy Chan [place] - [facility] & [place] 5 10:01:58 Date Recorded Body height Body mass index (BMI) Body weight Body temperature Oxygen saturation Oxygen saturation in Arterial blood by Pulse oximetry Heart rate Systolic And Diastolic Provider Name and Address Organization Details Last Updated DateTime 4 157.48 cm 38.6 kg/m2 41297.0 7 g 97.9 [degF] 90 % 90 % 100 /min 117/57 mm[Hg] Amy SEN [facility] & [place] 4 14:31:03 Date Recorded Body height Body mass index (BMI) Body weight Body temperature Oxygen saturation Oxygen saturation in Arterial blood by Pulse oximetry Heart rate Systolic And Diastolic Provider Name and Address Organization Details Last Updated DateTime 4 157.48 cm 38 kg/m2 73688.1 4 g 97.1 [degF] 93 % 93 % 108 /min 136/67 mm[Hg] Amy SEN [facility] & [place] 4 09:36:53 Date Recorded Body height Body mass index (BMI) Body weight Body temperature Oxygen saturation Oxygen saturation in Arterial blood by Pulse oximetry Heart rate Respiratory rate Systolic And Diastolic Provider Name and Address Organization Details Last Updated DateTime 4 157.48 cm 37.8 kg/m2 97654.1 8 g 97.2 [degF] 96 % 96 % 85 /min 18 /min 139/70 mm[Hg] Farhana Gilliam [facility] & [place] 4 09:59:45 Social History Question Answer Notes LastModified by Organizat ion Details LastModified Time Tobacco Smoking Status [facility] [place] 03/20/2023 10:32:44 What Is Your Level Of Caffeine Consumption? None [email or web address] Information not available 03/20/2023 When Did You Quit Smoking? 16+yearssinc elastcigaret te [email or web address] Information not available 03/20/2023 What Was The Date Of Your Most Recent Tobacco Screening? 06/03/2023 [email or web address] Information not available 06/03/2023 At What Age Did You Start Smoking Tobacco? 22 Information not available 03/20/2023 Has Tobacco Cessation Counseling Been Provided? No [email or web address] Information not available 03/20/2023 How Many Years Have You Smoked Tobacco? 23 [email or web address] Information not available 03/20/2023 Sex: Unknown Functional Status Question Answer Note LastModified by Organizat ion Details LastModified Time Do you use any illicit or recreational drugs? No [email or web address] Information not available 03/20/2023 Do you or have you ever used any other forms of tobacco or nicotine? No [email or web address] Information not available 03/20/2023 What is your level of alcohol consumption? None Information not available 03/20/2023 Mental Status None recorded. Family History Relationship Description Onset Age of this Age Resolved Age Notes LastModified by Organization Details LastModified Time Father Carcinoma of prostate [email or web address] Not available 06/02 13:57:10 Mother Malignant neoplasm of female breast [email or web address] Not available 06/02 13:57:19 Sister Malignant neoplasm of female breast BC twice .... chemo since 2018, under [facility] [email or web address] Not available 06/03/2023 13:57:59 Sister Malignant tumor of thyroid gland [email or web address] Not available 06/02 13:58:23 Sister Primary malignant neoplasm of both ovaries Not available 13:58:50 Medical History No medical history recorded. Gynecological HistoryNo gynecological history recorded. Obstetrics History GPAL:G 0 P 0 0 0 0 Immunizations Vaccine Type Date Status Note Provider Nam e and Address Organization Details Recorded Time Influenza, high-dose, quadrivalent, PF 02/26/2023 completed Amy short [place] - [facility] & [place] 04/12/2023 08:52:49 COVID-19, mRNA, LNP-S, PF, 100 mcg/0.5mL dose or 50 mcg/0.25mL dose 04/27/2020 selene short [place] - [facility] & [place] 04/12/2023 08:52:49 COVID-19, mRNA, LNP-S, PF, 100 mcg/0.5mL dose or 50 mcg/0.25mL dose 05/25/2020 selene short [place] - [facility] & [place] 04/12/2023 08:52:49 COVID-19, mRNA, LNP-S, PF, 100 mcg/0.5mL dose or 50 mcg/0.25mL dose 12/28/2020 selene short [place] - [facility] & [place] 04/12/2023 08:52:49 Past Encounters Encounter ID Performer Location Encounter Start Date Encounter Closed Date Diagnosis/Indication Diagnosis SNOMED-CT Code Diagnosis ICD10 Code Diagnosis Note [id number] Enrique Lou MD [facility] [address] [address] [place] [address] 03/20/2023 10:15:09 03/20/2023 11:40:57 Follicular lymphoma 391747326 C82.93 CT scan of the abdomen pelvis [...] rituximab maintenanc e depending on response. Anemia 909375318 D64.9 Labs during hospital stay in late February 2023 with findings of iron deficiency anemia. Iron infusions plan today. 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 Findings follicular lymphoma that is low grade (1/2). Flow cytometry positive for CD10. Cells positive for CD20 as well as CD19. Negative for CD 5 and negative for CD 38. Biopsy site was retroperit rivera lymph node. [id number] Enrique Lou MD [facility] [address] [facility] [address] [place] [address] 04/12/2023 08:44:32 04/12/2023 09:53:23 Follicular lymphoma 231404878 C82.93 CT scan of the abdomen pelvis [...] hopefully proceed with maintenanc e therapy. Anemia 485369059 D64.9 Labs during hospital stay in late February 2023 with findings of iron deficiency anemia. Iron infusions plan today. 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 Findings follicular lymphoma that is low grade (1/2). Flow cytometry positive for CD10. Cells positive for CD20 as well as CD19. Negative for CD 5 and negative for CD 38. Biopsy site was retroperit rivera lymph node. Antineopla stic chemotherapy regimen 491900317 Z51.11 Week 1 of rituximab on April 12, 2023. Chemothera py education performed. B-cell lym phoma (clinical) 819644108 C85.89 [id number] Enrique Lou MD [facility] [address] [place] [address] 04/19/2023 08:54:42 04/19/2023 09:34:24 Follicular lymphoma 980492791 C82.93 CT scan of the abdomen pelvis [...] elevated at 200. Will follow-up response. Anemia 951382571 D64.9 Labs during hospital stay in late February 2023 with findings of iron deficiency anemia. Iron infusions plan today. 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 Findings follicular lymphoma that is low grade (1/2). Flow cytometry positive for CD10. Cells positive for CD20 as well as CD19. Negative for CD 5 and negative for CD 38. Biopsy site was retroperit rivera lymph node. Antineopla stic chemotherapy regimen 923980624 Z51.11 Week 1 of rituximab on April 12, 2023. Chemothera py education performed. Week 2 of rituximab on April 19, 2023. Nausea 592043401 R11.0 As needed Zofran and Phenergan prescribed . Will follow-up B-cell lym phoma (clinical) 195974525 C85.89 [id number] Enrique Lou MD [facility] [address] [place] [address] 04/26/2023 09:05:09 04/26/2023 09:29:02 Follicular lymphoma 702347975 C82.93 CT scan of the abdomen pelvis [...] blood count 4.7. Hemoglobin 13.4. Platelet count 509688. Absolute neutrophil count 6.8. Uric acid in the normal range 3.8. LDH 256. Patient returns on April 26, 2023 for week 3 of rituximab. Will continue with current therapy. Following dose 4, will arrange repeat imaging 4-6 weeks after week 4 and will assess for maintenanc e therapy. Anemia 129315108 D64.9 Labs during hospital stay in late February 2023 with findings of iron deficiency anemia. Iron infusions plan today. 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 Findings follicular lymphoma that is low grade (1/2). Flow cytometry positive for CD10. Cells positive for CD20 as well as CD19. Negative for CD 5 and negative for CD 38. Biopsy site was retroperit rivera lymph node. Antineopla stic chemotherapy regimen 057409678 Z51.11 Week 1 of rituximab on April 12, 2023. Chemothera py education performed. Week 2 of rituximab on April 19, 2023.Week 3 of rituximab on April 26, 2023. Nausea 219084159 R11.0 As needed Zofran and Phenergan prescribed . Will follow-up [id number] Wilian Olsen PA-C [facility] [address] [place] [address] 05/03/2023 09:00:04 05/03/2023 10:26:31 Follicular lymphoma 749260335 C82.93 CT scan of the abdomen pelvis [...] blood count 4.7. Hemoglobin 13.4. Platelet count 468248. Absolute neutrophil count 6.8. Uric acid in the normal range 3.8. LDH 256. Patient returns on May 03, 2023 for week 4 of rituximab. Will complete current therapy today. She had some diarrhea with nausea and vomiting this week. Discussed starting Imodium along with Zofran. Will arrange repeat imaging 4-6 weeks and will assess for maintenanc e therapy. Anemia 540069626 D64.9 Labs during hospital stay in late February 2023 with findings of iron deficiency anemia. Iron infusions plan today. 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 Findings follicular lymphoma that is low grade (1/2). Flow cytometry positive for CD10. Cells positive for CD20 as well as CD19. Negative for CD 5 and negative for CD 38. Biopsy site was retroperit rivera lymph node. Antineopla stic chemotherapy regimen 131498371 Z51.11 Week 1 of rituximab on April 12, 2023. Chemothera py education performed. Week 2 of rituximab on April 19, 2023.Week 3 of rituximab on April 26, 2023.Week 4 of rituximab on May 03, 2023. Nausea 091692354 R11.0 As needed Zofran and Phenergan prescribed . Will follow-up B-cell lym phoma (clinical) 839035413 C82.89 [id number] Enrique Lou MD [facility] [address] [place] [address] 06/03/2023 13:38:35 06/03/2023 15:26:54 Follicular lymphoma 624630776 C82.93 CT scan of the abdomen pelvis [...] 4.7. Hemoglobin 13.6 hematocrit 41.2. Platelet count 684154. Patient completed 4 weeks of rituximab therapy. [...] in mid to late June 2023. Anemia 410351510 D64.9 Labs during hospital stay in late February 2023 with findings of iron deficiency anemia. Iron infusions plan today. Will follow-up Follicular low grade B-cell lymphoma 831316231 C82.80 Biopsy performed of lymph node mass on March 14, 2023. Findings follicular lymphoma that is low grade (1/2). Flow cytometry positive for CD10. Cells positive for CD20 as well as CD19. Negative for CD 5 and negative for CD 38. Biopsy site was retroperit rivera lymph node. Antineopla stic chemotherapy regimen 563917873 Z51.11 Week 1 of rituximab on April 12, 2023. Chemothera py education performed. Week 2 of rituximab on April 19, 2023.Week 3 of rituximab on April 26, 2023.Week 4 of rituximab on May 03, 2023. Nausea 356107634 R11.0 As needed Zofran and Phenergan prescribed . Will follow-up [id number] Enrique Lou MD [facility] [address] [place] [address] 07/24/2023 14:19:03 07/24/2023 15:05:00 Follicular lymphoma 263552268 C82.93 CT scan of the abdomen pelvis [...] 4.7. Hemoglobin 13.6 hematocrit 41.2. Platelet count 692607. Patient completed 4 weeks of rituximab therapy. [...] potential maintenanc e rituximab. Will follow-up Anemia 825782960 D64.9 Labs during hospital stay in late February 2023 with findings of iron deficiency anemia. Iron infusions plan today. 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 Findings follicular lymphoma that is low grade (1/2). Flow cytometry positive for CD10. Cells positive for CD20 as well as CD19. Negative for CD 5 and negative for CD 38. Biopsy site was retroperit rivera lymph node. Antineopla stic chemotherapy regimen 821093979 Z51.11 Week 1 of rituximab on April 12, 2023. Chemothera py education performed. Week 2 of rituximab on April 19, 2023.Week 3 of rituximab on April 26, 2023.Week 4 of rituximab on May 03, 2023. Nausea 915916404 R11.0 As needed Zofran and Phenergan prescribed . Will follow-up Coronary arteriosclerosis 01256505 I25.10 Patient recently hospitaliz ed in June 2023 following STEMI. Patient had cardiac stents placed. Follows with Cardiology . Chronic hy poxemic respiratory failure 763068571 J96.11 Patient with low oxygen saturation of 85% upon clinic arrival. Oxygen saturation 85% at rest. Patient placed on oxygen supplement ation with improvemen t in oxygen saturation . During walking test patient desaturate d to 89% on room air. Improvemen t with oxygen supplement ation. [id number] Wilian Olsen PA-C [facility] [address] [place] [address] 09/04/2023 14:09:39 09/04/2023 15:21:56 Follicular lymphoma 136782986 C82.93 CT scan of the abdomen pelvis [...] 4.7. Hemoglobin 13.6 hematocrit 41.2. Platelet count 530979. Patient completed 4 weeks of rituximab therapy. [...] labs on day 1 of rituximab. Anemia 935647861 D64.9 Labs during hospital stay in late February 2023 with findings of iron deficiency anemia. Iron infusions plan today. 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 Findings follicular lymphoma that is low grade (1/2). Flow cytometry positive for CD10. Cells positive for CD20 as well as CD19. Negative for CD 5 and negative for CD 38. Biopsy site was retroperit rivera lymph node. Antineopla stic chemotherapy regimen 684693548 Z51.11 Week 1 of rituximab on April 12, 2023. Chemothera py education performed. Week 2 of rituximab on April 19, 2023.Week 3 of rituximab on April 26, 2023.Week 4 of rituximab on May 03, 2023. Nausea 469745169 R11.0 As needed Zofran and Phenergan prescribed . Will follow-up Coronary arteriosclerosis 11129045 I25.10 Patient recently hospitaliz ed in June 2023 following STEMI. Patient had cardiac stents placed. Follows with Cardiology . Chronic hy poxemic respiratory failure 161048777 J96.11 Patient with low oxygen saturation of 85% upon clinic arrival. Oxygen saturation 85% at rest. Patient placed on oxygen supplement ation with improvemen t in oxygen saturation . During walking test patient desaturate d to 89% on room air. Improvemen t with oxygen supplement ation. [id number] Wilian Olsen PA-C [facility] [address] [facility] [address] [place] [address] 09/11/2023 09:30:15 09/11/2023 09:57:11 Follicular lymphoma 630565616 C82.93 CT scan of the abdomen pelvis [...] 4.7. Hemoglobin 13.6 hematocrit 41.2. Platelet count 177074. Patient completed 4 weeks of rituximab therapy. [...] maintenanc e today. Will follow-up labs. Anemia 801031919 D64.9 Labs during hospital stay in late February 2023 with findings of iron deficiency anemia. Iron infusions plan today. 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 Findings follicular lymphoma that is low grade (1/2). Flow cytometry positive for CD10. Cells positive for CD20 as well as CD19. Negative for CD 5 and negative for CD 38. Biopsy site was retroperit rivera lymph node. Antineopla stic chemotherapy regimen 013418830 Z51.11 Week 1 of rituximab on April 12, 2023. Chemothera py education performed. Week 2 of rituximab on April 19, 2023.Week 3 of rituximab on April 26, 2023.Week 4 of rituximab on May 03, 2023. Cycle 1 of rituximab maintenanc e on September 11, 2023. Nausea 017542903 R11.0 As needed Zofran and Phenergan prescribed . Will follow-up Coronary arteriosclerosis 99216237 I25.10 Patient recently hospitaliz ed in June 2023 following STEMI. Patient had cardiac stents placed. Follows with Cardiology . Chronic hy poxemic respiratory failure 563994941 J96.11 Patient with low oxygen saturation of 85% upon clinic arrival. Oxygen saturation 85% at rest. Patient placed on oxygen supplement ation with improvemen t in oxygen saturation . During walking test patient desaturate d to 89% on room air. Improvemen t with oxygen supplement ation. [id number] Wilian Olsen PA-C [facility] [address] [place] [address] 12/03/2023 09:47:40 12/03/2023 10:16:58 Follicular lymphoma 522412988 C82.93 CT scan of the abdomen pelvis [...] 4.7. Hemoglobin 13.6 hematocrit 41.2. Platelet count 844416. Patient completed 4 weeks of rituximab therapy. [...] maintenanc e today. Will follow-up labs. Anemia 493780353 D64.9 Labs during hospital stay in late February 2023 with findings of iron deficiency anemia. Iron infusions plan today. 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 Findings follicular lymphoma that is low grade (1/2). Flow cytometry positive for CD10. Cells positive for CD20 as well as CD19. Negative for CD 5 and negative for CD 38. Biopsy site was retroperit rivera lymph node. Antineopla stic chemotherapy regimen 539032770 Z51.11 Week 1 of rituximab on April 12, 2023. Chemothera py education performed. Week 2 of rituximab on April 19, 2023.Week 3 of rituximab on April 26, 2023.Week 4 of rituximab on May 03, 2023. Cycle 1 of rituximab maintenanc e on September 11, 2023.Cycle 2 of rituximab maintenanc e on December 03, 2023. Nausea 736653739 R11.0 As needed Zofran and Phenergan prescribed . Will follow-up Coronary arteriosclerosis 06290273 I25.10 Patient recently hospitaliz ed in June 2023 following STEMI. Patient had cardiac stents placed. Follows with Cardiology . Chronic hy poxemic respiratory failure 983879464 J96.11 Patient with low oxygen saturation of 85% upon clinic arrival. Oxygen saturation 85% at rest. Patient placed on oxygen supplement ation with improvemen t in oxygen saturation . During walking test patient desaturate d to 89% on room air. Improvemen t with oxygen supplement ation. Localized eruption of skin 247888802 R21 Patient returns for follow-up on December [...] refer to Dermatolog y further evaluation . [id number] Wilian Olsen PA-C [facility] [address] [facility] [address] [place] [address] 06/02/2024 09:27:05 06/02/2024 09:44:25 Follicular lymphoma 220426381 C82.93 CT scan of the abdomen pelvis [...] 4.7. Hemoglobin 13.6 hematocrit 41.2. Platelet count 422584. Patient completed 4 weeks of rituximab therapy. [...] schedule scans. Follicular low grade B-cell lymphoma 533168634 C82.80 Biopsy performed of lymph node mass on March 14, 2023. Findings follicular lymphoma that is low grade (1/2). Flow cytometry positive for CD10. Cells positive for CD20 as well as CD19. Negative for CD 5 and negative for CD 38. Biopsy site was retroperit rivera lymph node. Antineopla stic chemotherapy regimen 905089039 Z51.11 Week 1 of rituximab on April [...] py today to monitor for toxicity. Nausea 021490130 R11.0 As needed Zofran and Phenergan prescribed . Will follow-up Coronary arteriosclerosis 27366046 I25.10 Patient had a STEMI and had cardiac stents placed June 2023. Continues to follow with Cardiology . History of anemia 913875 002 Z86.2 Labs during hospital stay in late February 2023 with findings of iron deficiency anemia. Patient received infusional iron with improvemen t. Labs on March 03, 2024 with hemoglobin normal at 13.5. Will follow up labs Acute cough [id number] R05.1 Patient returns for follow-up on June 02, 2024. She is feeling better. She states she had pneumonia and congestive heart failure about 2 weeks ago. She has completed antibiotic s and is taking Lasix with improvemen t. Cough has improved She is still coughing up some mucus. Discussed taking Mucinex needed. No fever or chills. Insomnia [id number] G47.0 0 Patient returns for follow-up on June 02, 2024. Her sister March 2024. She is tearful and crying during her visit today but she is grieving appropriat brittanie. Offered referral to a therapist but patient declined at this time. She has had trouble sleeping. Discussed trying melatonin. Grief finding [id number] F43.21 Patient returns for follow-up on June 02, 2024. Her sister March 2024. She is tearful and crying during her visit today but she is grieving appropriat brittanie. Offered referral to a therapist but patient declined at this time. Discussed reaching out to other friends and family for comfort. [id number] Enrique Lou MD [facility] [address] [place] [address] 09/02/2024 09:29:42 09/02/2024 10:11:58 Antineoplastic chemotherapy regimen [id number] Z51.11 Week 1 of rituximab on April [...] to monitor for toxicity. Follicular lymphoma [id number] scan of the abdomen pelvis [...] 4.7. Hemoglobin 13.6 hematocrit 41.2. Platelet count 639774. Patient completed 4 weeks of rituximab therapy. [...] labs today. Follicular low grade B-cell lymphoma [id number] C82.80 Biopsy performed of lymph node mass on March 14, 2023. Findings follicular lymphoma that is low grade (1/2). Flow cytometry positive for CD10. Cells positive for CD20 as well as CD19. Negative for CD 5 and negative for CD 38. Biopsy site was retroperit rivera lymph node. Nausea [id number] R11.0 As needed Zofran and Phenergan prescribed . Will follow-up Coronary arteriosclerosis [id number] I25.10 Patient had a STEMI and had cardiac stents placed June 2023. Continues to follow with Cardiology . History of anemia 356781 002 Z86.2 Labs during hospital stay in [...] Name 08/30/2024 2 [employer] (MEDICARE SUPPLEMENT) Tay [facility] [id number] Tay Duglas 08/30/2024 1 [place] Tay L Duglas [id number] Tay Duglas Notes Date Note Type Note Provider [...] blood count 4.7. Hemoglobin 13.4. Platelet count 131995. Absolute neutrophil count 6.8. Uric acid in [...] 4.7. Hemoglobin 13.6 hematocrit 41.2. Platelet count 015705. Patient completed 4 weeks of rituximab therapy. [...] Wilian Olsen PA-C [address], [place], [address], [facility] - [place] - [place] & [place] 09/04/2023 15:17:41 09/11/2023 text/html 77 yo F [...] blood count 4.7. Hemoglobin 13.4. Platelet count 736846. Absolute neutrophil count 6.8. Uric acid in [...] 4.7. Hemoglobin 13.6 hematocrit 41.2. Platelet count 533449. Patient completed 4 weeks of rituximab therapy. [...] today. Will follow-up labs. Wilian Olsen PA-C [address], [place], [address], [place] - [place] - [place] 09/11/2023 09:55:42 12/03/2023 text/html 77 yo F [...] blood count 4.7. Hemoglobin 13.4. Platelet count 212849. Absolute neutrophil count 6.8. Uric acid in [...] 4.7. Hemoglobin 13.6 hematocrit 41.2. Platelet count 007007. Patient completed 4 weeks of rituximab therapy. [...] today. Will follow-up labs. Wilian Olsen PA-C [address], [place], [address], [place] [place] 12/03/2023 10:22:12 06/02/2024 text/html 78 yo F [...] blood count 4.7. Hemoglobin 13.4. Platelet count 162488. Absolute neutrophil count 6.8. Uric acid in [...] 4.7. Hemoglobin 13.6 hematocrit 41.2. Platelet count 789211. Patient completed 4 weeks of rituximab therapy. [...] Wilian Olsen PA-C [address], [place], [address], [place] [facility] - [place] 06/02/2024 10:03:19 09/02/2024 text/html 78 yo F [...] blood count 4.7. Hemoglobin 13.4. Platelet count 114189. Absolute neutrophil count 6.8. Uric acid in [...] 4.7. Hemoglobin 13.6 hematocrit 41.2. Platelet count 367650. Patient completed 4 weeks of rituximab therapy. [...] Will follow-up labs today. Enrique Lou MD [address], [place], [address], [place] - [place] 09/02/2024 09:56:56 OBGyn Episode No OBEpisode recorded.
--- OUTSIDE RECORDS SUMMARY | 2024-09-28 08:14 | XMS_ITS | Encounter Summary ---
Author Organization [employer] ([place], [place], [place], [place]) Address [address] [place] [address] Care Team Providers Care Motor Scooter Mechanic Name Role Phone Unavailable Primary Care Provider Unavailabl e Encounter Details Date Type Department Care Team (Late st Contact Info) Description 05/13/2019 Transcribed Document [facility] [place] Family Medicine [address] [place] [address] ProviderLexi MD [address] [place] [address] Social History Tobacco Use [...] - Historical ProviderMD - 05/13/2019 7:00 AM MASTER CRAFTSMAN Pain Assessment Entered On: 05/13/2019 7:52 EST Performed On: 05/13/2019 7:15 EST by Rach Red RN Intervention Information: acetaminophen Performed by BORIS OVALLE, Motor Generator Set Operator-Nursing on 05/13/2019 06:15:00 EST acetaminophen,1000mg Oral [...] form. Electronically signed by Meghan Carney Conversion Microfilm Equipment Inspector Raghav at 07/02/2022 4:49 PM CDT documented in this encounter Plan of Treatment Not on file documented as of this encounter Visit Diagnoses Not on filedocumented in this encounter
--- OUTSIDE RECORDS SUMMARY | 2024-09-28 08:14 | XMS_ITS | Encounter Summary ---
Author Organization [employer] ([place], [place], [place], [place]) Address [address] [place] [address] Care Team Providers Care Family Services Specialist Name Role Phone Unavailable Primary Care Provider Unavailabl e Encounter Details Date Type Department Care Team (Late st Contact Info) Description 05/12/2019 Transcribed Document [facility] [place] Family Medicine [address] [place] [address] ProviderLexi MD [address] [place] [address] Social History Tobacco Use Types [...] - Historical ProviderMD - 05/12/2019 9:28 AM TURNING LATHE TENDER Event Note Entered On: 05/12/2019 9:29 EST Performed On: 05/12/2019 9:28 EST by Cecile Wright RN Event Note Event Date/Time : 05/12/2019 9:28 EST Event Location : Other: pre-op Event Details : Other: test dose ancef Description of Event : Test dose ancef completed. Pt denies hives or any reactions to antibiotic at this time. eCcile Wright RN - 05/12/2019 9:28 EST documented in this encounter Plan of Treatment Not on file documented as of this encounter Visit Diagnoses Not on filedocumented in this encounter
--- OUTSIDE RECORDS SUMMARY | 2024-09-28 08:14 | XMS_ITS | Encounter Summary ---
Author Organization [employer] ([place], [place], [place], [place]) Address [address] [place] [address] Care Team Providers Care Light Bulb Tester Name Role Phone Unavailable Primary Care Provider Unavailabl e Encounter Details Date Type Department Care Team (Late st Contact Info) Description 05/14/2019 Transcribed Document [facility] [place] Family Medicine [address] [place] [address] ProviderLexi MD [address] [place] [address] Social History Tobacco Use Types [...] - Historical ProviderMD - 05/14/2019 8:00 AM LIFE INSURANCE SALES Pain Assessment Entered On: 05/14/2019 11:33 EST Performed On: 05/14/2019 6:46 EST by Rach Red RN Intervention Information: traMADol Performed by BORIS OVALLE, Job Press Feeder-Nursing on 05/14/2019 05:46:00 EST traMADol,50mg Oral Pain [...]
--- OUTSIDE RECORDS SUMMARY | 2024-09-28 08:14 | XMS_ITS ---
Author Organization [facility] Care Team Providers Care Regulatory Consultant Name Role Phone Deepa Medellin (Nimisha) Unavailable Unavail able Humberto Camarena Unavailable Unavailable Allergies and adverse reactions Code CodeSystem Substance Reaction Severity StartDate Concern Status 208154502 SNOMED CT Penicillins Moderate 07/08/2023 acti ve Care Team Name Role Address Phone Organization Dates Humberto Camarena PCP [address] [place] [address], [place], [address], [place] (Office): [facility] 07/08/2023 - 07/17/2023 Deepa (Nimisha) [place], [address], [place] (Office): : [facility] 07/08/2023 - 07/17/2023 Goals Section [...] completed tuberculin skin test; unspecified formulation lotNumber: [id number] expiry: 06/29/2026 Mfg: Sandfi pasteur Given 0.1 [...] Oral Tablet Delayed Release 40 MG active 907610 RXNORM 1 tablet Oral at bedtime Routine Give 1 tablet by mouth at bedtim e for GERD 2023 - Clopidogrel Bisulfate Oral Tablet 75 MG active 970437 RXNORM 1 tablet Oral at bedtime Routine [...] - glipiZIDE Oral Tablet 10 MG active 895629 RXNORM 1 tablet Oral every morning and [...] Atorvastatin Calcium Oral Tablet 80 MG active 936031 RXNORM 1 tablet Oral at bedtime Routine Give 1 tablet by mouth at bedtim e for choles terol relate d to HYPERL IPIDEM IA, 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 ) 2023 - Furosemide Oral Tablet 40 MG active 770341 RXNORM 1 tablet Oral one time a day Routine Give 1 tablet by mouth one time a day for edema/ CHF 2023 - Citalopram Hydrobromide Oral Tablet 40 MG active 579674 RXNORM 1 tablet Oral one time a day Routine Give 1 tablet by mouth one time a day for depres lenore 2023 - Ergocalcifero l Oral Capsule 1.25 MG (41132 UT) active 2745858 RXNORM 1 capsul e Oral one time a day Routine Give 1 capsul e by mouth one time a day every Mon for supple ment 2023 - Ondansetron HCl Oral Tablet 4 MG active 057964 RXNORM 1 tablet Oral as needed PRN Give 1 tablet by mouth every 4 hours as needed for Nausea /Vomit ing 2023 - Metoprolol Succinate ER Oral Tablet Extended Release 24 Hour 25 MG active 651617 RXNORM 1 tablet Oral at bedtime Routine Give 1 tablet by mouth at bedtim e for HTN relate d to ESSENT IAL (PRIMA RY) HYPERT ENSION (I10) Hold for SBP <90 or HR <50 2023 - Antacid & Antigas Oral Suspension 3584-7110-496 MG/30ML active 30 ml Oral as needed PRN Give 30 ml by mouth every 6 hours as needed for indige stion 2023 - Ozempic (0.25 or 0.5 MG/DOSE) Subcutaneous Solution Pen-injector 2 MG/3ML active 9156916 RXNORM 0.25 mg Subcuta neous one time [...] 1 ACUTE RESPIRATORY FAILURE WITH HYPOXIA 07/08/[address] active 2 CHRONIC RESPIRATORY FAILURE, UNSPECIFIED WHETHER WITH HYPOXIA OR HYPERCAPNIA 07/08/[address] active 3 DEPRESSION, UNSPECIFIED 07/08/[address] active 4 ESSENTIAL (PRIMARY) HYPERTENSION 07/08/[address] active 5 FOLLICULAR LYMPHOMA, UNSPECIFIED, UNSPECIFIED SITE 07/08/[address] active 6 GASTRO-ESOPHAGEAL REFLUX DISEASE 07/08/[address] active 7 GASTRO-ESOPHAGEAL REFLUX DISEASE WITHOUT ESOPHAGITIS 07/08/2023 07/11/[address] complete d 8 HEART FAILURE, UNSPECIFIED 07/08/[address] active 9 HYPERLIPIDEMIA, UNSPECIFIED 07/08/[address] active 10 MORBID (SEVERE) OBESITY DUE TO EXCESS CALORIES 07/08/[address] active 11 MUSCLE WEAKNESS (GENERALIZED) 07/08/[address] active 12 NON-ST ELEVATION (NSTEMI) MYOCARDIAL INFARCTION 07/08/[address] active 13 OTHER FORMS OF DYSPNEA 07/08/[address] active 14 POSTPROCEDURAL (ACUTE) (CHRONIC) KIDNEY FAILURE 07/08/[address] active 15 PRESENCE OF CORONARY ANGIOPLASTY IMPLANT AND GRAFT 07/08/[address] active 16 TYPE 2 DIABETES MELLITUS WITHOUT COMPLICATIONS 07/08/[address] active 17 UNSTEADINESS ON FEET 07/08/[address] active Reason for Referral No Reasons for Referral Entered Social History Social History Observation Description Start Date End Date Code Code System Current Smoking Status Tobacco smoking consumption unknown 256353656 SNOMED CT Sex Assigned At Female 1945 67133-2 [facility] Gender Identity Vital Signs Code Code System Vitals Name Values and Units Timing Information 9279-1 [facility] Respiratory Rate Value=20.0 Units=/m in 07/17/2023 8462-4 [facility] Blood Pressure-Diastolic Value=76 Un its=mmHg 07/17/2023 8480-6 [facility] Blood Pressure-Systolic Pyine=608 Un its=mmHg 07/17/2023 8310-5 [facility] Body Temperature Value=97.2 Units= F 07/17/2023 8867-4 [facility] Heart rate Value=88.0 Units=/min 03/2023 56072-8 [facility] O2 % BldC Oximetry Value=90.0 Units= % 07/17/2023 2339-0 [facility] Blood Sugar Uevnv=999.0 Units=mg/dL 07/17/2023 95297-9 [facility] Pain Level Value=0.0 07/15/2023 8302-2 [facility] Height Value=62.0 Units=Inches 07/08/2023 54418-0 [facility] Weight Gkrye=471.0 Units=Lbs
--- OUTSIDE RECORDS SUMMARY | 2024-09-28 08:14 | XMS_ITS | Encounter Summary ---
Author Organization [employer] ([place], [place], [place], [place]) Address [address] [place] [address] Care Team Providers Care Print Producer Name Role Phone Unavailable Primary Care Provider Unavailabl e Encounter Details Date Type Department Care Team (Late st Contact Info) Description 05/14/2019 Transcribed Document [facility] Family Medicine [address] [place] [address] ProviderLexi MD [address] [place] [address] Social History Tobacco Use Types [...] - Historical ProviderMD - 05/14/2019 2:00 PM SMALL PRODUCTS ASSEMBLER Pain Assessment Entered On: 05/14/2019 14:15 EST [...]
--- OUTSIDE RECORDS SUMMARY | 2024-09-28 08:14 | XMS_ITS | Encounter Summary ---
Author Organization [employer] ([place], [place], [place], [place]) Address [address] [place] [address] Care Team Providers Care Data Typist Name Role Phone Unavailable Primary Care Provider Unavailabl e Encounter Details Date Type Department Care Team (Late st Contact Info) Description 05/14/[address] [facility] [address] [place] [address] Alba River MD [address] [place] [address] Social History Tobacco Use Types Packs/Day [...] Signature: __Tonja Canela RN CDS Phone #: _[phone] BMI < 18.5 Under weight ? 18.5 - 24.9 Healthy ? 25.0 - 29.9 Slightly Overweight ? 30.0 - 34.9 Obese/Class I ? 35.0 - 39.9 Severely Obese/Class II ? 40.0 and Over Morbidly Obese/Class III Source: [facility] This is a permanent part of the Medical Record Q9 2019 [facility] Updated: documented in this encounter Plan of Treatment Not on file documented as of this encounter Visit Diagnoses Not on filedocumented in this encounter
--- OUTSIDE RECORDS SUMMARY | 2024-09-28 08:14 | XMS_ITS | Encounter Summary ---
Author Organization [employer] ([place], [place], [place], [place]) Address [address] [place] [address] Care Team Providers Care Bariatric Coordinator Name Role Phone Unavailable Primary Care Provider Unavailabl e Encounter Details Date Type Department Care Team (Late st Contact Info) Description 05/12/2019 Transcribed Document [facility] [place] Family Medicine [address] [place] [address] ProviderLexi MD [address] [place] [address] Social History Tobacco Use Types [...] - Historical ProviderMD - 05/12/2019 12:53 PM PHD INTERNSHIP Evaluation, Physical Therapy Entered On: 05/12/2019 15:07 [...] WILIAN KENNEDY, PT - 05/12/2019 14:46 EST Craft Coordinator Goals Other PT LTG Grid Goal #1 [...] services for ATHA protocol + to maxamize safety/[place] with functional mobility prior to discharge. Plan [...] Needs, OT/PT Anticipated Discharge to : Unit, detention Anticipated Home Equipment : Walker Anticipated D/C Provider Notified : consulting services project manager/case management Recommend Continued Therapy at Discharge [...]
--- OUTSIDE RECORDS SUMMARY | 2024-09-28 08:14 | XMS_ITS | Encounter Summary ---
Author Organization [employer] ([place], [place], [place], [place]) Address [address] [place] [address] Care Team Providers Care Parking Enforcement Officer Name Role Phone Unavailable Primary Care Provider Unavailabl e Encounter Details Date Type Department Care Team (Late st Contact Info) Description 05/14/2019 Transcribed Document [facility] [place] [address] [place] [address] ProviderLexi MD [address] [place] [address] Social History Tobacco Use Types [...] - Historical ProviderMD - 05/14/2019 7:00 AM CAT BREEDER Pain Assessment Entered On: 05/14/2019 11:33 EST Performed On: 05/14/2019 6:46 EST by Rach Red RN Intervention Information: acetaminophen Performed by BORIS OVALLE, Utilization Review Nurse-Nursing on 05/14/2019 05:46:00 EST acetaminophen,1000mg Oral Pain [...]
--- OUTSIDE RECORDS SUMMARY | 2024-09-28 08:14 | XMS_ITS | Encounter Summary ---
Author Organization [employer] ([place], [place], [place], [place]) Address [address] [place] [address] Care Team Providers Care Offset Printer Name Role Phone Unavailable Primary Care Provider Unavailabl e Encounter Details Date Type Department Care Team (Late st Contact Info) Description 05/12/2019 Transcribed Document [facility] [place] [address] [place] [address] ProviderLexi MD [address] [place] [address] Social History Tobacco Use Types [...] - Historical ProviderMD - 05/12/2019 5:06 PM SENIOR PHYSICAL THERAPIST Initial Discharge Planning Entered On: 05/12/2019 17:08 EST Performed On: 05/12/2019 17:06 EST by SANDRA DEL ANGEL Care Management-Lime Kiln Worker Initial Assessment I Previously Documented Living Environment : No qualifying data available. Living Situation : Home Patient Lives With : Alone Emergency Contact #1 : Roxy Emergency Contact #1 Emergency Contact #1 Relationship : sister Emergency Contact #2 : . Emergency Contact #2 Phone Number : . Emergency Contact #2 Relationship : . SANDRA DEL ANGEL, Care Management-Lime Kiln Worker - 05/12/2019 17:06 EST Narrative Note Narrative Note : Pt stated to Navigator, PASS staff, and myself that she must go to rehab at [place]. she lives alone, has stairs and no [...] review and advise. SANDRA DEL ANGEL, Care Management-Lime Kiln Worker - 05/12/2019 17:06 EST Electronically signed by Angelika [facility] Conversion Associate Project Manager Cerner at 07/02/2022 5:10 PM CDT documented in this encounter Plan of Treatment Not on file documented as of this encounter Visit Diagnoses Not on filedocumented in this encounter
--- OUTSIDE RECORDS SUMMARY | 2024-09-28 08:14 | XMS_ITS | Encounter Summary ---
Author Organization [employer] ([place], [place], [place], [place]) Address [address] [place] [address] Care Team Providers Care Nursing Aide Name Role Phone Unavailable Primary Care Provider Unavailabl e Encounter Details Date Type Department Care Team (Late st Contact Info) Description 05/12/2019 Transcribed Document [facility] [place] [facility] [place] [address] ProviderLexi MD [address] [place] [address] Social History Tobacco Use [...] - Historical ProviderMD - 05/12/2019 7:21 AM PHARMACY CUSTOMER CARE SPECIALIST Patient: TAY FONSECA Age: 73 Years Sex: [...]
--- OUTSIDE RECORDS SUMMARY | 2024-09-28 08:14 | XMS_ITS | Encounter Summary ---
Author Organization [employer] ([place], [place], [place], [place]) Address [address] [place] [address] Care Team Providers Care Financial Cost Analyst Name Role Phone Unavailable Primary Care Provider Unavailabl e Encounter Details Date Type Department Care Team (Late st Contact Info) Description 05/12/2019 Transcribed Document [facility] [place] [address] [place] [address] ProviderLexi MD [address] [place] [address] Social History Tobacco Use Types [...] - Historical ProviderMD - 05/12/2019 1:18 PM PIECE CUTTER Admission History, Adult Entered On: 05/12/2019 13:21 [...] Obtained From : Patient Primary Language : Zambian Preferred Communication Mode : Verbal Communication Barrier [...] Level : 46 or > High Risk [place] Fall Interventions : Assistive devices within reach, [...] Source : Stated Height Entry Format : [place] Height, Feet : 5 ft(Converted to: 152 cm, 60 Inch) Height, Inches : 2 Inch(Converted to: 0 ft 2 Inch, 5.08 cm) Clinical Height : 157.48 cm Weight Source : Standing scale Weight Entry Format : [place] Clinical Dosing Weight : 107.27 kg Weight, Pounds : 236 lb Body Surface Area (BSA) : 2.05 m2 Body Mass Index : 43.3 kg/m2 (>HHI) [place] Body Weight : 50 kg Rach Red [...] Rach Red RN - 05/12/2019 13:18 EST [place] Suicide Severity Rating Scale (C-SSRS) CSSRS Past [...] Any Spiritual/Cultural Needs or Requests : Yes Christian Preference : Mosque Rach Red RN - 05/12/2019 13:18 EST [...]
--- OUTSIDE RECORDS SUMMARY | 2024-09-28 08:14 | XMS_ITS | Encounter Summary ---
Author Organization [employer] ([place], [place], [place], [place]) Address [address] [place] [address] Care Team Providers Care Plate Sensitizer Name Role Phone Unavailable Primary Care Provider Unavailabl e Encounter Details Date Type Department Care Team (Late st Contact Info) Description 05/12/2019 Transcribed Document [facility] [place] [address] [place] [address] ProviderLexi MD [address] [place] [address] Social History Tobacco Use Types [...] - Historical ProviderMD - 05/12/2019 8:30 AM COOK PICKLED MEAT Event Note Entered On: 05/12/2019 9:11 EST [...] 05/12/2019 13:46 EST Electronically signed by Angelika [facility] Conversion Semiconductor Packages Leak Tester Raghav at 07/02/2022 5:17 PM CDT documented in this encounter Plan of Treatment Not on file documented as of this encounter Visit Diagnoses Not on filedocumented in this encounter
--- OUTSIDE RECORDS SUMMARY | 2024-09-28 08:14 | XMS_ITS | Encounter Summary ---
Author Organization [email or web address] ([place], [place], [place], [place]) Address [address] [place] [address] Care Team Providers Care Croze Machine Operator Name Role Phone Unavailable Primary Care Provider Unavailabl e Encounter Details Date Type Department Care Team (Late st Contact Info) Description 05/13/2019 Transcribed Document [facility] Radiology [address] [place] [address] Alba River MD [address] [place] [address] Social History Tobacco Use Types Packs/Day [...] reports no chest pain Tolerated her diet [place] a little weak this am No nausea [...] mg= 2 Tab, Oral, Q6HInt Vitamin D2, 39244 Units= 1 Cap, Oral, Saturday Zofran, 4 [...]
--- OUTSIDE RECORDS SUMMARY | 2024-09-28 08:14 | XMS_ITS | Encounter Summary ---
Author Organization [employer] ([place], [place], [place], [place]) Address [address] [place] [address] Care Team Providers Care Double Backer Name Role Phone Unavailable Primary Care Provider Unavailabl e Encounter Details Date Type Department Care Team (Late st Contact Info) Description 05/14/2019 Transcribed Document [facility] Family Medicine [address] [place] [address] ProviderLexi MD [address] [place] [address] Social History Tobacco Use Types [...] - Historical ProviderMD - 05/14/2019 2:00 AM HOSPITALITY INTERNSHIP Inspector And Mender Details Entered On: 05/14/2019 1:34 EST Performed On: 05/14/2019 2:00 EST by BORIS OVALLE, Field Hockey And Lacrosse Coach-Nursing Order Details Transport Mode Order Detail : Wheelchair Isolation Precautions Order Detail : Standard Precautions Order Detail : N/A IV Order Detail : 1 Oxygen Order Detail : 0 Nurse Collect Order Detail : 0 Lift/Transfer : Minimal Central Line Order Detail : No Room Service : Appropriate Arterial Line : No BORIS OVALLE, Field Hockey And Lacrosse Coach-Nursing - 05/14/2019 1:34 EST documented in this encounter Plan of Treatment Not on file documented as of this encounter Visit Diagnoses Not on filedocumented in this encounter
--- OUTSIDE RECORDS SUMMARY | 2024-09-28 08:14 | XMS_ITS | Encounter Summary ---
Author Organization [employer] ([place], [place], [place], [place]) Address [address] [place] [address] Care Team Providers Care Shipwright Helper Name Role Phone Unavailable Primary Care Provider Unavailabl e Encounter Details Date Type Department Care Team (Late st Contact Info) Description 05/15/2019 Transcribed Document [facility] [place] Family Medicine [address] [place] [address] ProviderLexi MD [address] [place] [address] Social History Tobacco Use Types [...] - Historical ProviderMD - 05/15/2019 5:00 PM MOHS SURGEON Chart Check - Review Order Profile Entered [...]
--- OUTSIDE RECORDS SUMMARY | 2024-09-28 08:14 | XMS_ITS | Encounter Summary ---
Author Organization [employer] ([place], [place], [place], [place]) Address [address] [place] [address] Care Team Providers Care Piping Designer Name Role Phone Unavailable Primary Care Provider Unavailabl e Encounter Details Date Type Department Care Team (Late st Contact Info) Description 05/14/2019 Transcribed Document [facility] [place] Family Medicine [address] [place] [address] ProviderLexi MD [address] [place] [address] Social History Tobacco Use [...] - Historical ProviderMD - 05/14/2019 7:00 PM WEARING APPAREL ASSEMBLER Pain Assessment Entered On: 05/14/2019 22:54 EST Performed On: 05/14/2019 22:47 EST by BORIS OVALLE, Electromedical Equipment Repairer-Nursing Intervention Information: acetaminophen Performed by BORIS OVALLE, Electromedical Equipment Repairer-Nursing on 05/14/2019 21:47:00 EST acetaminophen,1000mg Oral Pain Assessment Pain Assessment : Follow-up assessment Pain Scale Goal : 4 Pain Scale Used : FACES Pain Intervention, Drug : Medicated Pain Improved by Intervention : Yes BORIS OVALLE, Electromedical Equipment Repairer-Nursing - 05/14/2019 22:54 EST Pain Scale Intensity : 3 BORIS OVALLE, Electromedical Equipment Repairer-Nursing - 05/14/2019 22:54 EST Image 4 - Images currently included in the form version of this document have not been included in the text rendition version of the form. documented in this encounter Plan of Treatment Not on file documented as of this encounter Visit Diagnoses Not on filedocumented in this encounter
--- OUTSIDE RECORDS SUMMARY | 2024-09-28 08:14 | XMS_ITS | Encounter Summary ---
Author Organization [employer] ([place], [place], [place], [place]) Address [address] [place] [address] Care Team Providers Care Pole Peeling Machine Operator Helper Name Role Phone Unavailable Primary Care Provider Unavailabl e Encounter Details Date Type Department Care Team (Late st Contact Info) Description 05/14/2019 Transcribed Document [facility] [place] Family Medicine [address] [place] [address] ProviderLexi MD [address] [place] [address] Social History Tobacco Use Types [...] - Historical ProviderMD - 05/14/2019 1:00 PM EXECUTIVE SALES MANAGER Pain Assessment Entered On: 05/14/2019 14:16 EST [...]
--- OUTSIDE RECORDS SUMMARY | 2024-09-28 08:14 | XMS_ITS | Encounter Summary ---
Author Organization [employer] ([place], [place], [place], [place]) Address [address] [place] [address] Care Team Providers Care Attendant Coin Operated Laundry Name Role Phone Unavailable Primary Care Provider Unavailabl e Encounter Details Date Type Department Care Team (Late st Contact Info) Description 05/14/2019 Transcribed Document [facility] [place] [address] [place] [address] ProviderLexi MD [address] [place] [address] Social History Tobacco Use Types [...] - Historical ProviderMD - 05/14/2019 5:00 AM COMMERCIAL PHOTOGRAPHER Chart Check - Review Order Profile Entered On: 05/14/2019 6:35 EST Performed On: 05/14/2019 5:00 EST by BORIS OVALLE, Staff Writer-Nursing Chart Check Powerplans Initiated/Discontinued as Appropriate : Yes All Active Orders Reviewed : Yes BORIS OVALLE, Staff Writer-Nursing - 05/14/2019 6:34 EST Electronically signed by Angelika [facility] Conversion Process Equipment Operator Cerner at 07/02/2022 4:55 PM CDT documented in this encounter Plan of Treatment Not on file documented as of this encounter Visit Diagnoses Not on filedocumented in this encounter
--- OUTSIDE RECORDS SUMMARY | 2024-09-28 08:14 | XMS_ITS | Encounter Summary ---
Author Organization [employer] ([place], [place], [place], [place]) Address [address] [place] [address] Care Team Providers Care Baker Operator Automatic Name Role Phone Unavailable Primary Care Provider Unavailabl e Encounter Details Date Type Department Care Team (Late st Contact Info) Description 05/12/2019 Transcribed Document [facility] [place] [address] [place] [address] ProviderLexi MD [address] [place] [address] Social History Tobacco Use Types [...] - Historical ProviderMD - 05/12/2019 1:00 PM MANAGING ATTORNEY Pain Assessment Entered On: 05/12/2019 16:50 EST [...]
--- OUTSIDE RECORDS SUMMARY | 2024-09-28 08:14 | XMS_ITS | Encounter Summary ---
Author Organization [employer] ([place], [place], [place], [place]) Address [address] [place] [address] Care Team Providers Care Bb Shot Packer Name Role Phone Unavailable Primary Care Provider Unavailabl e Encounter Details Date Type Department Care Team (Late st Contact Info) Description 05/15/2019 Transcribed Document [facility] [place] Family Medicine [address] [place] [address] ProviderLexi MD [address] [place] [address] Social History Tobacco Use Types [...] - Historical ProviderMD - 05/15/2019 8:00 PM INSPECTOR ELECTROMECHANICAL Pain Assessment Entered On: 05/15/2019 23:08 EST [...]
--- OUTSIDE RECORDS SUMMARY | 2024-09-28 08:14 | XMS_ITS | Encounter Summary ---
Author Organization [employer] ([place], [place], [place], [place]) Address [address] [place] [address] Care Team Providers Care Bar Turner Name Role Phone Unavailable Primary Care Provider Unavailabl e Encounter Details Date Type Department Care Team (Late st Contact Info) Description 05/12/2019 Transcribed Document [facility] [place] Family Medicine [address] [place] [address] ProviderLexi MD [address] [place] [address] Social History Tobacco Use Types [...] - Historical ProviderMD - 05/12/2019 12:53 PM NUTRITIONIST PUBLIC HEALTH Pain Assessment Entered On: 05/13/2019 7:53 EST Performed On: 05/13/2019 7:15 EST by Rach Red RN Intervention Information: oxyCODONE Performed by BORIS OVALLE, Helpdesk Manager-Nursing on 05/13/2019 06:15:00 EST oxyCODONE,10mg Oral,Pain (Severe [...]
--- OUTSIDE RECORDS SUMMARY | 2024-09-28 08:14 | XMS_ITS | Encounter Summary ---
Author Organization [employer] ([place], [place], [place], [place]) Address [address] [place] [address] Care Team Providers Care Math Instructor Name Role Phone Unavailable Primary Care Provider Unavailabl e Encounter Details Date Type Department Care Team (Late st Contact Info) Description 05/14/2019 Transcribed Document [facility] [place] Family Medicine [address] [place] [address] ProviderLexi MD [address] [place] [address] Social History Tobacco Use Types [...] - Historical ProviderMD - 05/14/2019 8:00 PM WORKERS' COMPENSATION HEARINGS OFFICER Pain Assessment Entered On: 05/14/2019 22:55 EST Performed On: 05/14/2019 22:48 EST by BORIS OVALLE, Radiation Protection Specialist-Nursing Intervention Information: traMADol Performed by BORIS OVALLE, Radiation Protection Specialist-Nursing on 05/14/2019 21:48:00 EST traMADol,50mg Oral Pain Assessment Pain Assessment : Follow-up assessment Pain Scale Goal : 4 Pain Scale Used : FACES Pain Intervention, Drug : Medicated Pain Improved by Intervention : Yes BORIS OVALLE, Radiation Protection Specialist-Nursing - 05/14/2019 22:54 EST Pain Scale Intensity : 3 BORIS OVALLE Radiation Protection Specialist-Nursing - 05/14/2019 22:54 EST Image 4 - Images currently included in the form version of this document have not been included in the text rendition version of the form. documented in this encounter Plan of Treatment Not on file documented as of this encounter Visit Diagnoses Not on filedocumented in this encounter
--- OUTSIDE RECORDS SUMMARY | 2024-09-28 08:15 | XMS_ITS | Encounter Summary ---
Author Organization [employer] ([place], [place], [place], [place]) Address [address] [place] [address] Care Team Providers Care Second Mate Name Role Phone Unavailable Primary Care Provider Unavailabl e Encounter Details Date Type Department Care Team (Late st Contact Info) Description 05/04/2019 Transcribed Document [facility] [place] Family Medicine [address] [place] [address] ProviderLexi MD [address] [place] [address] Social History Tobacco Use Types [...] - Historical ProviderMD - 05/04/2019 1:10 PM DIRECTOR OF DIGITAL TECHNOLOGY Orthopedic Nurse Navigator Entered On: 05/04/2019 13:11 EST Performed On: 05/04/2019 13:10 EST by Alyssia Ashraf Nurse mobile sales consultant Nurse Navigator Assessment Does Patient Have a Walker? : No Joint Navigator Assessment Note : Patient returned call. Pt is wanting to go to the [facility] bc she lives alone and has stairs. Pt indicates she was supposed to have surgery last September with another , and went to the class at that time. Alyssia Ashraf Nurse KOBE - 05/04/2019 13:10 EST Electronically signed by Angelika [facility] Conversion Card Services Specialist Cerner at 07/02/2022 5:05 PM CDT documented in this encounter Plan of Treatment Not on file documented as of this encounter Visit Diagnoses Not on filedocumented in this encounter
--- OUTSIDE RECORDS SUMMARY | 2024-09-28 08:15 | XMS_ITS | Encounter Summary ---
Author Organization [employer] ([place], [place], [place], [place]) Address [address] [place] [address] Care Team Providers Care Rn Practitioner Name Role Phone Unavailable Primary Care Provider Unavailabl e Encounter Details Date Type Department Care Team (Late st Contact Info) Description 05/12/2019 Transcribed Document [facility] Family Medicine [address] [place] [address] ProviderLexi MD [address] [place] [address] Social History Tobacco Use Types [...] - Historical ProviderMD - 05/12/2019 7:00 PM BUSINESS OFFICE MANAGER Pain Assessment Entered On: 05/12/2019 23:17 EST Performed On: 05/12/2019 19:38 EST by BORIS OVALLE, Nba Player-Nursing Intervention Information: acetaminophen Performed by Rach Red RN on 05/12/2019 18:38:00 EST acetaminophen,1000mg Oral Pain Assessment Pain Assessment : Follow-up assessment Pain Scale Goal : 4 Pain Scale Used : FACES Pain Intervention, Drug : Medicated Pain Improved by Intervention : Yes BORIS OVALLE, Nba Player-Nursing - 05/12/2019 23:17 EST Pain Scale Intensity : 3 BORIS OVALLE, Nba Player-Nursing - 05/12/2019 23:17 EST Image 4 - Images currently included in the form version of this document have not been included in the text rendition version of the form. documented in this encounter Plan of Treatment Not on file documented as of this encounter Visit Diagnoses Not on filedocumented in this encounter
--- OUTSIDE RECORDS SUMMARY | 2024-09-28 08:15 | XMS_ITS | Encounter Summary ---
Author Organization [employer] ([place], [place], [place], [place]) Address [address] [place] [address] Care Team Providers Care Agricultural Chemicals Inspector Name Role Phone Unavailable Primary Care Provider Unavailabl e Encounter Details Date Type Department Care Team (Late st Contact Info) Description 05/12/2019 Transcribed Document [facility] [place] Family Medicine [address] [place] [address] ProviderLexi MD [address] [place] [address] Social History Tobacco Use Types [...] - Lexi ProviderMD - 05/12/2019 10:29 AM PIG CASTER KAYE Main OR PreOp Summary Primary Physician: ROSIO JUDD MD-ORT Finalized Date/Time: 05/19/19 10:37:26 Pt. Name: TAY FONSECA D.O.B./Sex: 1945 Female Med Rec #: [id number] Physician: ROSIO JUDD MD-ORT Financial #: [id number] Pt. Type: I Room/Bed: 412/1 Admit/Disch: 05/13/19 09:44:00 - 05/16/19 14:56:00 Institution: [facility] [place] PreOp Case Times Entry 1 In Preop 05/12/19 07:15:00 Ready for Holding n/a Room Patient Ready for 05/12/19 09:00:00 Surgery Patient Out of Preop 05/12/19 09:50:00 Patient Out of n/a Holding Room Last Modified By: ROS HUNTER 05/19/19 10:37:25 SJRoni PreOp Case Times Audit 05/19/19 10:37:25 Automotive Technology Instructor: [id number] Modifier: [email or web address] <+> 1 Patient Out of Preop Finalized By: ROS HUNTER Document Signatures Signed By: ROS HUNTER 05/19/19 10:37 Electronically signed by Angelika [facility] Conversion Rooter Operator Cerner at 07/02/2022 4:50 PM CDT documented in this encounter Plan of Treatment Not on file documented as of this encounter Visit Diagnoses Not on filedocumented in this encounter
--- OUTSIDE RECORDS SUMMARY | 2024-09-28 08:15 | XMS_ITS | Encounter Summary ---
Author Organization [employer] ([place], [place], [place], [place]) Address [address] [place] [address] Care Team Providers Care Steel Grinder Name Role Phone Unavailable Primary Care Provider Unavailabl e Encounter Details Date Type Department Care Team (Late st Contact Info) Description 05/13/2019 Transcribed Document [facility] [place] Family Medicine [address] [place] [address] ProviderLexi MD [address] [place] [address] Social History Tobacco Use Types [...] - Historical ProviderMD - 05/13/2019 10:06 AM PRICE ECONOMIST On Going Discharge Planning Entered On: 05/13/2019 10:07 EST Performed On: 05/13/2019 10:06 EST by SANDRA DEL ANGEL, Care Management-Telephone Quotation Clerk Care Management Progress Note Discharge Arrangements : Patient Post-Acute Information Patient Name: TAY FONSECA Gender: Female : [birth year] Age: 73 Years No Post-Acute Placement(s) Listed No Post-Acute Service(s) Listed No [place] Referral(s) Listed Discharge Options Discussed with Patient : Short term rehabilitation SANDRA DEL ANGEL, Care Management-Telephone Quotation Clerk - 05/13/2019 10:06 EST Narrative Progress Note Narrative Progress Note : Pt has been changed to in pt status per [facility]. referrals sent out via [facility] per pts choice. SANDRA DEL ANGEL, Care Management-Telephone Quotation Clerk - 05/13/2019 10:06 EST documented in this encounter Plan of Treatment Not on file documented as of this encounter Visit Diagnoses Not on filedocumented in this encounter
--- OUTSIDE RECORDS SUMMARY | 2024-09-28 08:15 | XMS_ITS | Encounter Summary ---
Author Organization [employer] ([place], [place], [place], [place]) Address [address] [place] [address] Care Team Providers Care Sql Architect Name Role Phone Unavailable Primary Care Provider Unavailabl e Encounter Details Date Type Department Care Team (Late st Contact Info) Description 05/12/2019 Transcribed Document [facility] [place] [address] [place] [address] ProviderLexi MD [address] [place] [address] Social History Tobacco Use Types [...] - Historical ProviderMD - 05/12/2019 8:09 AM HEALTH MANAGEMENT CONSULTANT Pediatric Growth Entered On: 05/12/2019 8:09 EST Performed On: 05/12/2019 8:09 EST by Lianna Johnson Care [facility] Unit Coord Height and Weight, Clinical Dosing Height Source : Stated Height Entry Format : [place] Height, Feet : 5 ft(Converted to: 152 cm, 60 Inch) Height, Inches : 2 Inch(Converted to: 0 ft 2 Inch, 5.08 cm) Clinical Height : 157.48 cm Weight Source : Standing scale Weight Entry Format : [place] Clinical Dosing Weight : 107.27 kg Weight, Pounds : 236 lb Body Surface Area (BSA) : 2.05 m2 Body Mass Index : 43.3 kg/m2 (>HHI) [place] Body Weight : 50 kg Lianna Johnson [facility] - 05/12/2019 8:09 EST Electronically signed by Angelika [facility] Conversion Wall Cleaner Cerner at 07/02/2022 5:01 PM CDT documented in this encounter Plan of Treatment Not on file documented as of this encounter Visit Diagnoses Not on filedocumented in this encounter
--- OUTSIDE RECORDS SUMMARY | 2024-09-28 08:15 | XMS_ITS | Encounter Summary ---
Author Organization [employer] ([place], [place], [place], [place]) Address [address] [place] [address] Care Team Providers Care Sedimentationist Name Role Phone Unavailable Primary Care Provider Unavailabl e Encounter Details Date Type Department Care Team (Late st Contact Info) Description 05/12/2019 Transcribed Document [facility] [place] Family Medicine [address] [place] [address] ProviderLexi MD [address] [place] [address] Social History Tobacco Use Types [...] - Historical ProviderMD - 05/12/2019 12:53 PM JEWELRY CONSULTANT Evaluation, Occupational Therapy Entered On: 05/12/2019 14:47 [...] ESPERANZA REYNA OTR/Brittany - 05/12/2019 14:33 EST Care Home Goals, OT Other LTG Grid Goal #1 [...] 05/12/2019 14:33 EST Electronically signed by Interface, [facility] Conversion Wire Bender Cerner at 07/02/2022 4:58 PM CDT documented in this encounter Plan of Treatment Not on file documented as of this encounter Visit Diagnoses Not on filedocumented in this encounter
--- OUTSIDE RECORDS SUMMARY | 2024-09-28 08:15 | XMS_ITS | Encounter Summary ---
Author Organization [employer] ([place], [place], [place], [place]) Address [address] [place] [address] Care Team Providers Care Hairspring Assembler Name Role Phone Unavailable Primary Care Provider Unavailabl e Encounter Details Date Type Department Care Team (Late st Contact Info) Description 05/04/2019 Transcribed Document [facility] [place] [address] [place] [address] ProviderLexi MD [address] [place] [address] Social History Tobacco Use Types [...] - Historical ProviderMD - 05/04/2019 1:01 PM RN INFUSION Orthopedic Nurse Navigator Entered On: 05/04/2019 13:02 EST Performed On: 05/04/2019 13:01 EST by Alyssia Ashraf Nurse cold press loader Nurse Navigator Assessment Joint Navigator Assessment Note : Attempted to call patient, message left. Alyssia Ashraf Nurse RN - 05/04/2019 13:01 EST Electronically signed by Angelika [facility] Conversion Biomaterials Engineer Cerner at 07/02/2022 5:15 PM CDT documented in this encounter Plan of Treatment Not on file documented as of this encounter Visit Diagnoses Not on filedocumented in this encounter
--- OUTSIDE RECORDS SUMMARY | 2024-09-28 08:15 | XMS_ITS | Referral Summary ---
Author Organization [employer] ([place], [place], [place], [place]) Address [address] [place] [address] Care Team Providers Care Software Quality Assurance Specialist Name Role Phone Unavailable Primary Care [...]
--- OUTSIDE RECORDS SUMMARY | 2024-09-28 08:15 | XMS_ITS | Continuity of Care Document ---
Author Organization [facility] Address [address] [place] [address] Care Team Providers Care Music Therapy Specialist Name Role Phone LILIAN MARINA Primary Care [...] contrast - iv contrast only 2024 025 [email or web address] [facility] (Centralized Scheduling), [address], [place], [address], 09/02/2024 09:59:11 Medication Orders None recorded. Patient TargetsNo targets recorded. Patient InstructionsNo instructions recorded. Reason for Referral None Reported. 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 Procedures Surgical History Date Name Laterality Status Provider Name and Address Organization Details Recorded Time hysterectomy completed Amy SEN [facility] & [place] 03/20/2023 10:33:17 banding of varix of stomach completed Amy SEN [facility] [place] 03/20/2023 10:34:08 procedure on ankle completed Amy SEN [facility] & [place] 06/03/2023 13:59:58 Imaging Results None recorded. Procedure Notes None recorded. Medical Equipment None Reported. Allergies Allergen ID Allergen Name Allergen Category Reaction Reaction Severity Criticality Documentation Date Start Date Code Code System Note Provider Name and Address Organization Details Recorded Time 153222 Product containin g penicilli n (product) medicatio n Not available Not available Not available 03/20/2023 59255 8001 SNOMED Other react ions and sever ities : 'Adve rse react ion to subst ance' . MCKINLEY Antunez [facility] [place] 4 10:29:56 Medications Name Sig Start Date [...] Available Not Available Not Available Vitamin D3 31309 active Not Available Not Av ailable Not [...] and Address Organization Details Last Updated DateTime 00735.5 1 g 95 % 95 % 98.3 [degF] 102 /min 18 /min 143/60 mm[Hg] Amy Chan [facility] [place] 5 10:01:58 Social History Question Answer Notes LastModified by Cy[employer] ion Details LastModified Time Tobacco Smoking Status Former Smoker Amy Chan [facility] & [place] 03/20/2023 10:32:44 What Is Your Level Of Caffeine Consumption? None [email or web address] Information not available 03/20/2023 When Did You Quit Smoking? 16+yearssinc elastcigaret te [email or web address] Information not available 03/20/2023 What Was The Date Of Your Most Recent Tobacco Screening? 06/03/2023 Information not available 06/03/2023 At What Age Did You Start Smoking Tobacco? 22 [email or web address] Information not available 03/20/2023 Has Tobacco Cessation Counseling Been Provided? No [email or web address] Information not available 03/20/2023 How Many Years Have You Smoked Tobacco? 23 [email or web address] Information not available 03/20/2023 Sex: Unknown Functional Status Question Answer Note LastModified by Organizat ion Details LastModified Time Do you use any illicit or recreational drugs? No [email or web address] Information not available 03/20/2023 Do you or have you ever used any other forms of tobacco or nicotine? No [email or web address] Information not available 03/20/2023 What is your level of alcohol consumption? None [email or web address] Information not available 03/20/2023 Mental Status None recorded. Family History Relationship Description Onset Age of this Age Resolved Age Notes LastModified by Organization Details LastModified Time Father Carcinoma of prostate [email or web address] Not available 06/02 13:57:10 Mother Malignant neoplasm of female breast [email or web address] Not available 06/02 13:57:19 Sister Malignant neoplasm of female breast BC twice .... chemo since 2018, under [facility] [email or web address] Not available 06/03/2023 13:57:59 Sister Malignant tumor of thyroid gland [email or web address] Not available 06/02 13:58:23 Sister Primary malignant neoplasm of both ovaries [email or web address] Not available 13:58:50 Medical History No medical history recorded. Gynecological HistoryNo gynecological history recorded. Obstetrics History GPAL:G 0 P 0 0 0 0 Immunizations Vaccine Type Date Status Note Provider Nam e and Address Organization Details Recorded Time Influenza, high-dose, quadrivalent, PF 02/26/2023 completed Amy short, [place] [facility] [place] 04/12/2023 08:52:49 COVID-19, mRNA, LNP-S, PF, 100 mcg/0.5mL dose or 50 mcg/0.25mL dose 04/27/2020 completed Amy short, [place] [facility] [place] 04/12/2023 08:52:49 COVID-19, mRNA, LNP-S, PF, 100 mcg/0.5mL dose or 50 mcg/0.25mL dose 05/25/2020 selene short [place] - [facility] [place] 04/12/2023 08:52:49 COVID-19, mRNA, LNP-S, PF, 100 mcg/0.5mL dose or 50 mcg/0.25mL dose 12/28/2020 selene short [place] - [facility] [place] 04/12/2023 08:52:49 Past Encounters Encounter ID Performer Location Encounter Start Date Encounter Closed Date Diagnosis/Indication Diagnosis SNOMED-CT Code Diagnosis ICD10 Code Diagnosis Note [id number] Enrique Montiel MD [facility] [address] [place] [address] 09/02/2024 09:29:42 09/02/2024 10:11:58 Antineoplastic chemotherapy regimen 693844494 Z51.11 Week 1 of rituximab on April [...] to monitor for toxicity. Follicular lymphoma [address] scan of the abdomen pelvis [...] 4.7. Hemoglobin 13.6 hematocrit 41.2. Platelet count 874693. Patient completed 4 weeks of rituximab therapy. [...] labs today. 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 Findings follicular lymphoma that is low grade (1/2). Flow cytometry positive for CD10. Cells positive for CD20 as well as CD19. Negative for CD 5 and negative for CD 38. Biopsy site was retroperit rivera lymph node. Nausea 059226318 R11.0 As needed Zofran and Phenergan prescribed . Will follow-up Coronary arteriosclerosis 98949928 I25.10 Patient had a STEMI and had cardiac stents placed June 2023. Continues to follow with Cardiology . History of anemia 393847 002 Z86.2 Labs during hospital stay in [...] Name 09/02/2024 1 [place] Dominga L Cuervo [id number] Dominga Duglas 09/02/2024 2 [employer] (MEDICARE SUPPLEMENT) Dominga Duglas [id number] Dominga Cuervo Notes Date Note Type Note Provider Name [...] blood count 4.7. Hemoglobin 13.4. Platelet count 319293. Absolute neutrophil count 6.8. Uric acid in [...] 4.7. Hemoglobin 13.6 hematocrit 41.2. Platelet count 144537. Patient completed 4 weeks of rituximab therapy. [...] Will follow-up labs today. Enrique Montiel MD [address], [place], [address], [place] [facility] [place] [facility] [place] 09/02/2024 09:56:56 OBGyn Episode No OBEpisode recorded.
--- OUTSIDE RECORDS SUMMARY | 2024-09-28 08:15 | XMS_ITS | Encounter Summary ---
Author Organization [employer] ([place], [place], [place], [place]) Address [address] [place] [address] Care Team Providers Care Hot Braider Name Role Phone Unavailable Primary Care Provider Unavailabl e Encounter Details Date Type Department Care Team (Late st Contact Info) Description 05/12/2019 Transcribed Document [facility] [place] [address] [place] [address] ProviderLexi MD [address] [place] [address] Social History Tobacco Use Types [...] - Historical ProviderMD - 05/12/2019 8:17 AM BRAND EXECUTIVE Pre Procedure Adult Entered On: 05/12/2019 8:24 EST Performed On: 05/12/2019 8:17 EST by Cecile Wright RN Height and Weight, Clinical Dosing Height Source : Stated Height Entry Format : [place] Height, Feet : 5 ft(Converted to: 152 cm, 60 Inch) Height, Inches : 2 Inch(Converted to: 0 ft 2 Inch, 5.08 cm) Clinical Height : 157.48 cm Weight Source : Standing scale Weight Entry Format : [place] Clinical Dosing Weight : 107.27 kg Weight, Pounds : 236 lb Body Surface Area (BSA) : 2.05 m2 Body Mass Index : 43.3 kg/m2 (>HHI) [place] Body Weight : 50 kg Cecile Wright [...] Cecile Wright RN - 05/12/2019 8:17 EST [place] Suicide Severity Rating Scale (C-SSRS) CSSRS Past [...] Any Spiritual/Cultural Needs or Requests : Yes Anabaptism Preference : Religion Cecile Wright RN - 05/12/2019 8:17 EST [...] Obtained From : Patient Primary Language : Micronesian Preferred Communication Mode : Verbal Communication Barrier [...] Scale Risk Level : 25-45 Medium Risk [place] Fall Interventions : Adequate lighting, Assistive devices [...] rendition version of the form. Crystal Coma [place] Best Motor Response : Obey commands [place] Best Verbal Response : Oriented [place] Eye Opening Response : Spontaneous [place] Coma Score : 15 Cecile Wright RN - 05/12/2019 8:17 EST documented in this encounter Plan of Treatment Not on file documented as of this encounter Visit Diagnoses Not on filedocumented in this encounter
--- OUTSIDE RECORDS SUMMARY | 2024-09-28 08:15 | XMS_ITS | Encounter Summary ---
Author Organization [employer] ([place], [place], [place], [place]) Address [address] [place] [address] Care Team Providers Care Physician Practice Manager Name Role Phone Unavailable Primary Care Provider Unavailabl e Encounter Details Date Type Department Care Team (Late st Contact Info) Description 05/12/2019 Transcribed Document [facility] [place] [address] [place] [address] ProviderLexi MD [address] [place] [address] Social History Tobacco Use Types [...] - Lexi ProviderMD - 05/12/2019 3:07 PM PROFESSOR OF RELIGION Treatment Intervention, PT Entered On: 05/15/2019 10:15 EST Performed On: 05/15/2019 9:03 EST by MARIELOS HUFFMAN, ELECTRIC MULE DRIVER General Information, PT Visit Type, PT : [...] Fall prevention measures, high risk MARIELOS HUFFMAN, ELECTRIC MULE DRIVER - 05/15/2019 10:01 EST General Status Patient [...] Treatment Time : 23 Minute(s) MARIELOS HUFFMAN, ELECTRIC MULE DRIVER - 05/15/2019 10:01 EST Edu Topics Physical [...] MARIELOS HUFFMAN, TAMMY - 05/15/2019 10:01 EST Nursing Home Goals Other PT LTG Grid Goal [...] rehab setting per CM today MARIELOS HUFFMAN, ELECTRIC MULE DRIVER - 05/15/2019 10:01 EST MARIELOS HUFFMAN, ELECTRIC MULE DRIVER - 05/15/2019 10:01 EST MARIELOS HUFFMAN, ELECTRIC MULE DRIVER - 05/15/2019 10:01 EST MARIELOS HUFFMAN, ELECTRIC MULE DRIVER - 05/15/2019 10:01 EST Treatment Note Subjective [...] for Treatment : Cont POC. MARIELOS HUFFMAN, ELECTRIC MULE DRIVER - 05/15/2019 10:01 EST Pain Assessment Pain Scaled Used : FACES Pain Score Pre-Intervention : 4 MARIELOS HUFFMAN, ELECTRIC MULE DRIVER - 05/15/2019 10:01 EST Image 1 - Images currently included in the form version of this document have not been included in the text rendition version of the form. [place] PT Charges ELECTRIC MULE DRIVER PT Therap. Exercise 15 min-ELECTRIC MULE DRIVER : 2 MARIELOS HUFFMAN, ELECTRIC MULE DRIVER - 05/15/2019 10:01 EST documented in this encounter Plan of Treatment Not on file documented as of this encounter Visit Diagnoses Not on filedocumented in this encounter
--- OUTSIDE RECORDS SUMMARY | 2024-09-28 08:15 | XMS_ITS | Encounter Summary ---
Author Organization [employer] ([place], [place], [place], [place]) Address [address] [place] [address] Care Team Providers Care President And Chief Executive Officer Name Role Phone Unavailable Primary Care Provider Unavailabl e Encounter Details Date Type Department Care Team (Late st Contact Info) Description 05/12/2019 Transcribed Document [facility] [place] [facility] [address] [place] [address] ProviderLexi MD [address] [place] [address] Social History Tobacco Use Types [...] - Historical ProviderMD - 05/12/2019 12:53 PM HOSPITAL CLEANING SPECIALIST Pain Assessment Entered On: 05/15/2019 9:58 EST [...] EST Pain Scale Intensity : 3 Rosie Warnre RN - 05/15/2019 9:57 EST Image 4 - Images currently included in the form version of this document have not been included in the text rendition version of the form. documented in this encounter Plan of Treatment Not on file documented as of this encounter Visit Diagnoses Not on filedocumented in this encounter
--- OUTSIDE RECORDS SUMMARY | 2024-09-28 08:15 | XMS_ITS | Encounter Summary ---
Author Organization [employer] ([place], [place], [place], [place]) Address [address] [place] [address] Care Team Providers Care Pet Care Associate Name Role Phone Unavailable Primary Care Provider Unavailabl e Encounter Details Date Type Department Care Team (Late st Contact Info) Description 04/27/2019 Transcribed Document [facility] [place] [address] [place] [address] ProviderLexi MD [address] [place] [address] Social History Tobacco Use Types [...] - Lexi ProviderMD - 04/27/2019 6:29 AM NEEDLE MOLDER Total Joints Assessment Entered On: 04/27/2019 6:30 EST Performed On: 04/27/2019 6:29 EST by Alyssia Ashraf RN [facility]ICHARD Hip Survey 1. Going up or down stairs : Moderate 2. Walking on an uneven surface : Severe 3. Rising from sitting : Severe 4. Bending to floor/curing pickling packer an object : Severe 5. Lying in [...]
--- OUTSIDE RECORDS SUMMARY | 2024-09-28 08:15 | XMS_ITS | Encounter Summary ---
Author Organization [employer] ([place], [place]) Address [address] [place] [address] Care Team Providers Care Trimmer Press Clippings Name Role Phone Unavailable Primary Care Provider Unavailabl e Encounter Details Date Type Department Care Team (Late st Contact Info) Description 05/13/2019 Transcribed Document [facility] [place] [address] [place] [address] ProviderLexi MD [address] [place] [address] Social History Tobacco Use Types [...] - Historical ProviderMD - 05/13/2019 8:00 AM COLON AND RECTAL SURGEON Pain Assessment Entered On: 05/13/2019 9:18 EST [...]
--- OUTSIDE RECORDS SUMMARY | 2024-09-28 08:15 | XMS_ITS | Encounter Summary ---
Author Organization [employer] ([place], [place], [place], [place]) Address [address] [place] [address] Care Team Providers Care Feed Preparation Operator Name Role Phone Unavailable Primary Care Provider Unavailabl e Encounter Details Date Type Department Care Team (Late st Contact Info) Description 05/12/2019 Transcribed Document [facility] [place] [address] [place] [address] ProviderLexi MD [address] [place] [address] Social History Tobacco Use Types [...] - Lexi ProviderMD - 05/12/2019 10:29 AM SEAMAN KAYE Main OR PACU Summary Primary Physician: ROSIO JUDD MD-ORPatria Finalized Date/Time: 05/12/19 13:13:58 Pt. Name: TAY FONSECA /Sex: 1945 Female Med Rec #: [id number] Physician: ROSIO JUDD MD-ORT Financial #: [id number] Pt. Type: O Room/Bed: [facility]/2 Admit/Disch: 05/12/19 04:49:00 - Institution: [facility] OR PACU Case Times Entry 1 In PACU I 05/12/19 11:54:00 Ready for PACU 05/12/19 13:13:00 Discharge Discharge from PACU 05/12/19 13:13:00 I Last Modified By: JASPAL MARQUIS 05/12/19 13:13:46 SJRoni Main OR PACU Case Times Audit 05/12/19 13:13:46 Bulk Fluids Handler: RAMON Modifier: TERESAMAM <+> 1 Ready for PACU Discharge <+> 1 Discharge from PACU I Finalized By: JASPAL MARQUIS Document Signatures Signed By: JASPAL MARQUIS 05/12/19 13:13 documented in this encounter Plan of Treatment Not on file documented as of this encounter Visit Diagnoses Not on filedocumented in this encounter
--- OUTSIDE RECORDS SUMMARY | 2024-09-28 08:15 | XMS_ITS | Patient Health Record ---
Author Organization [facility] Address [address] [place] [address] Care Team Providers Care Chain Carrier Name Role Phone Migration, Provider Unavailable Unavailable [...] day Active Vitamin D (Ergocalciferol) 1.25 MG (03552 UT) Capsule 1 cap(s) orally once a week Active Social History Social History Social History Social Info Question Answer Notes Tobacco Use Current smoking status: Quit Number of years? >25 years Problems Problem Type SNOMED Code ICD Code Onset Dates Problem Status W/U Status Risk Notes Problem Essential hypertension (70640252) Essential (primary) hypertension (I10) Active confirmed Problem Acute renal failure syndrome (22879383) Acute kidney failure, unspecified (N17.9) Active confirmed Problem Total hip replacement Prosthesis (008107808) Presence of right artificial hip joint (Z96.641) Active confirmed Problem Edema, unspecified (R60.9) Active confirmed Problem Type II diabetes mellitus without complication (830559442) Type 2 diabetes mellitus without complications (E11.9) Active confirmed Encounters Encounter Location Date Provider Diagnosis [address] [place] [address] 08/22/2024 Provider Migration Plan Of Treatment No Information Insurance Providers Payer Name Payer Address Payer Phone Subscriber Number Group Number Insured Name Patient Relationship to Insured Coverage Start Date Coverage End Date [place] [address] [place] [address] [phone] [id number] DuglasDominga graham Self - patient is the insured [facility] [address] [place] [phone] [id number] Dominga Ardon Self - patient is the insured Medical (General) History Medical History History ICD Code Anxiety disorder sleep apnea, at risk for type 2 diabetes hypercholesterolemia hypertension Hypothyroidism Vitamin D deficiency Surgical History Surgery Date(Month/Year) Hysterectomy Gastric band ORIF, left ankle VD x1 Hospitalization History Reason Date(Month/Year) Right ATHA 04/2019
--- OUTSIDE RECORDS SUMMARY | 2024-09-28 08:15 | XMS_ITS | Encounter Summary ---
Author Organization [employer] ([place], [place], [place], [place]) Address [address] [place] [address] Care Team Providers Care Imaging Aide Name Role Phone Unavailable Primary Care Provider Unavailabl e Encounter Details Date Type Department Care Team (Late st Contact Info) Description 05/12/2019 Transcribed Document [facility] [place] [address] [place] [address] ProviderLexi MD [address] [place] [address] Social History Tobacco Use Types [...] - Lexi ProviderMD - 05/12/2019 10:29 AM ARBORIST CLIMBER KAYE Main OR IntraOp Summary Primary Physician: ROSIO JUDD MD-ORT Finalized Date/Time: 05/15/19 10:45:27 Pt. Name: TAY FONSECA Brittany /Sex: 1945 Female Med Rec #: [id number] Physician: ROSIO JUDD MD-ORT Financial #: [id number] Pt. Type: I Room/Bed: [facility]/ Admit/Disch: 05/13/19 09:44:00 - Institution: [facility] [place] IntraOp Case Attendance Entry 1 Entry 2 Entry 3 Case Attendee ROSIO JUDD RENFROE, REBECCA, Biery, Jordyn A RN -ORT MANAGER TRUST-ANS Role Performed Surgeon/Proceduralist, MANAGER TRUST/Nurse Farm Implement Engine Mechanic Pt Sitter, First First Time In 05/12/19 10:26:00 05/12/19 [...] 6 Case Attendee Juve Stubbs, Lelo Valenzuela, Driver'S License Reviewing Officer Role Performed Scrub, First Scrub, Second Assistive [...] QIAN LÓPEZ, PAC OTHER, ATTENDEE Role Performed Mechanic'S Assistant, First Physician facilities assistant Vendor Time In 05/12/19 09:56:00 05/12/19 [...] Attendee DRAKE SALINAS SUSAN, RN Role Performed Document Control Clerk Pt Sitter, Second Time In 05/12/19 09:56:00 05/12/19 11:31:00 Time Out 05/12/19 11:27:00 05/12/19 11:51:00 Procedure Hip Total Anterior Hip Total Anterior Approach Approach Other Attendee Superficial Wound Closed By: Last Modified By: Gutierrez Pena RN Biery, Jordyn A, RN 05/12/19 11:51:47 05/12/19 11:51:47 [facility] IntraOp Case Attendance Audit 05/12/19 11:51:47 Oncology Account Specialist: JUAN C Modifier: JUAN C 1 <*> [...] Procedure Hip Total Anterior Approach 05/12/19 11:45:43 Oncology Account Specialist: JUAN C Modifier: JUAN C 3 <+> Time Out 3 <*> Procedure Hip Total Anterior Approach <+> 11 Case Attendee <+> 11 Role Performed <+> 11 Time In <+> 11 Procedure 05/12/19 11:27:30 Oncology Account Specialist: JUAN C Modifier: JUAN C 1 <+> Time Out 1 <*> Procedure Hip Total Anterior Approach 5 <+> Time Out 5 <*> Procedure Hip Total Anterior Approach 9 <+> Time Out 9 <*> Procedure Hip Total Anterior Approach 10 <+> Time Out 10 <*> Procedure Hip Total Anterior Approach 05/12/19 11:15:53 Oncology Account Specialist: JUAN C Modifier: JUAN C 6 <+> Time Out 6 <*> Procedure Hip Total Anterior Approach 7 <+> Time Out 7 <*> Procedure Hip Total Anterior Approach 05/12/19 10:55:31 Oncology Account Specialist: JUAN C Modifier: JORDYNBLAND 1 <*> Time In 05/12/19 09:56:00 1 <*> Procedure Hip Total Anterior Approach 05/12/19 10:55:17 Oncology Account Specialist: JUAN C Modifier: JORDYNBLAND 1 <+> Time [...] S[facility] IntraOp Case Times Audit 05/12/19 11:51:43 Oncology Account Specialist: JUAN C Modifier: JORDYNBLAND <+> 1 Out Room Time <+> 1 Stop Time 05/12/19 11:45:46 Oncology Account Specialist: GUTIERREZBLRICCI Modifier: JORDYNBLAND <+> 1 Stop Time 05/12/19 10:29:48 Oncology Account Specialist: JUAN C Modifier: JORDYNBLAND <+> 1 Start [...] S[facility] IntraOp Counts Verification Audit 05/12/19 11:23:37 Oncology Account Specialist: JUAN C Modifier: JUAN C <+> 2 [...] Analysis/Path-Lab Requested/Final Disposition Last Modified By: Gutierrez Pena RN 05/12/19 09:48:34 [facility] IntraOp Cultures and Spec Summary Audit 05/12/19 09:48:34 Oncology Account Specialist: JUAN C Modifier: JUAN C <+> 1 [...] RN 05/12/19 09:48:31 S[facility] IntraOp General Case Personal Driver 1 Case Information OR OR 10 SJE [...] SZ STEM HIP ORIGIN SZ 13 Identification [id number] [id number] Description Implant Quantity 1 1 1 Implant Site RIGHT HIP RIGHT HIP RIGHT HIP Implant Identification Model Number Implant Identification Serial Number Implant [id number] Identification Lot Number Implant [employer] Paxeon Reconstruction Paxeon Reconstruction Identification [facility] High Density Finishing Operator Name: Implant [id number] Identification Catalog Number Implant Size Implant Has an Yes Yes Yes Expiration Date Implant Expiration 12/16/23 04/17/24 01/16/24 Date Wasted Radioactive Material Time Implanted Tissue Implant Continue for Tissue Implant Documentation Tissue Identification Number Graft Prep Per High Density Finishing Operator Instructions: Tissue Preparation Method: Reconstitution Solution: Reconstitution Solution Lot Number Reconstitution Solution Expiration Date: Thawing Solution Thawing Solution Lot Number Thawing Solution Expiration Date Preparation Materials, Other Preparation Materials, Other Lot Number Preparation Materials, Other Expiration Date Tissue Prepared/Processed By High Density Finishing Operator Paperwork Completed Implant Type Comment Last Modified By: Gutierrez Pena RN Biery, Jordyn A, RN Biery, Jordyn A, RN 05/12/19 10:55:07 05/12/19 10:55:07 05/12/19 11:19:51 Entry 4 Type Implant (Synthetic) Implant Log Implant Type Hardware Tissue Implant Type Implant HEAD FEM CERC SZ 36MM Identification [id number] Description Implant Quantity 1 Implant Site RIGHT HIP Implant Identification Model Number Implant Identification Serial Number Implant [id number] Identification Lot Number Implant Paxeon Reconstruction Identification High Density Finishing Operator Name: Implant [id number] Identification Catalog Number Implant Size Implant Has an Yes Expiration Date Implant Expiration 04/17/24 Date Wasted Radioactive Material Time Implanted Tissue Implant Continue for Tissue Implant Documentation Tissue Identification Number Graft Prep Per High Density Finishing Operator Instructions: Tissue Preparation Method: Reconstitution Solution: Reconstitution Solution Lot Number Reconstitution Solution Expiration Date: Thawing Solution Thawing Solution Lot Number Thawing Solution Expiration Date Preparation Materials, Other Preparation Materials, Other Lot Number Preparation Materials, Other Expiration Date Tissue Prepared/Processed By High Density Finishing Operator Paperwork Completed Implant Type Comment Last Modified By: Gutierrez Pena RN 05/12/19 11:19:51 [facility] IntraOp Implant Log Audit 05/12/19 11:19:51 Oncology Account Specialist: JUAN C Modifier: JUAN C <+> 3 Implant Identification Description <+> 3 Implant Identification Lot Number <+> 3 Implant Identification High Density Finishing Operator Name: <+> 3 Implant Expiration Date <+> 3 Implant Identification Catalog Number <+> 4 Implant Identification Description <+> 4 Implant Identification Lot Number <+> 4 Implant Identification High Density Finishing Operator Name: <+> 4 Implant Expiration Date <+> 4 Implant Identification Catalog Number 05/12/19 10:55:07 Oncology Account Specialist: JUAN C Modifier: JUAN C <+> 1 Implant Identification Description <+> 1 Implant Identification Lot Number <+> 1 Implant Identification High Density Finishing Operator Name: <+> 1 Implant Expiration Date <+> 1 Implant Identification Catalog Number <+> 2 Implant Identification Description <+> 2 Implant Identification Lot Number <+> 2 Implant Identification High Density Finishing Operator Name: <+> 2 Implant Expiration Date <+> [...] vancomycin 1Gm vial - CLONIDINE-10ML 1000MG/10 ML [id number] Combo Med List 1 - Combo Med [...] 1% w/ epinephrine 1:100,000 20ml vial - [id number] Combo Med List 2 - Combo Med [...] SJE IntraOp Medication Admin Audit 05/12/19 09:48:55 Oncology Account Specialist: JUAN C Modifier: JUAN C <+> 5 [...] LINN CSA, SAMUEL MONTERO, JEANETH-ANS, Lelo Siddiqi, Driver'S License Reviewing Officer, Gutierrez Pena, RN, FRANKY URRUTIA Position Verified [...] Intra Op Sign Out Audit 05/12/19 11:51:55 Oncology Account Specialist: JUAN C Modifier: JUAN C 1 <*> [...] SJE IntraOp Skin Prep Audit 05/12/19 10:23:06 Oncology Account Specialist: JUAN C Modifier: JUAN C 1 <+> [...] SJE IntraOp Surgical Procedures Audit 05/12/19 11:48:01 Oncology Account Specialist: JUAN C Modifier: JUAN C <+> 1 Start <+> 1 Stop SJE IntraOp Temp Regulation Devices Entry 1 Temp Regulation Temperature Forced Air Warming Regulation Device device Temperature Upper body Regulation Site Temperature WINSTON, SAMUEL, Regulation Device MANAGER TRUST-ANS Applied by Last Modified By: Gutierrez Pena [...] SJE IntraOp Time Out Audit 05/12/19 10:55:43 Oncology Account Specialist: JUAN C Modifier: JUAN C 1 <+> Time Out Pause Time 1 <*> Procedure to be Performed Hip Total Anterior Approach SJE IntraOp X-Ray and Images Entry 1 X-Ray/Imaging Type Fluoroscopy Fluoroscopy Type C-Arm Site RIGHT HIP Derrick Worker Name DRAKE SALINAS Protective Devices Yes Used [...] NIRMAL Correct Billing Electronically signed by Angelika [facility] Conversion Poultry Process Worker Cerner at 07/02/2022 5:08 PM CDT documented in this encounter Plan of Treatment Not on file documented as of this encounter Visit Diagnoses Not on filedocumented in this encounter
--- OUTSIDE RECORDS SUMMARY | 2024-09-28 08:15 | XMS_ITS | Encounter Summary ---
Author Organization [employer] ([place], [place], [place], [place]) Address [address] [place] [address] Care Team Providers Care Principal Statistical Programmer Name Role Phone Unavailable Primary Care Provider Unavailabl e Encounter Details Date Type Department Care Team (Late st Contact Info) Description 05/12/2019 Transcribed Document [facility] [place] Family Medicine [address] [place] [address] ProviderLexi MD [address] [place] [address] Social History Tobacco Use Types [...] - Historical ProviderMD - 05/12/2019 2:48 PM AUTOMOTIVE QUALITY MANAGER Treatment Intervention, OT Entered On: 05/16/2019 14:44 [...] OT : client set-up A with toileting RAOMN SORENSON OTR/Brittany - 05/16/2019 14:36 EST Functional [...] PIYUSHRAMON GARCIA OTR/Brittany - 05/16/2019 14:36 EST Mcc Goals, OT Other LTG Grid Goal #1 [...]
--- OUTSIDE RECORDS SUMMARY | 2024-09-28 08:15 | XMS_ITS | Encounter Summary ---
Author Organization [employer] ([place], [place], [place], [place]) Address [address] [place] [address] Care Team Providers Care Colorer Machine Name Role Phone Unavailable Primary Care Provider Unavailabl e Encounter Details Date Type Department Care Team (Late st Contact Info) Description 04/27/2019 Transcribed Document [facility] [place] [address] [place] [address] ProviderLexi MD [address] [place] [address] Social History Tobacco Use Types [...] - Historical ProviderMD - 04/27/2019 6:29 AM CALCINER FEEDER Orthopedic Nurse Navigator Entered On: 04/27/2019 6:31 [...] Pt is wanting to go to the [place]. Alyssia Ashraf RN Surgical Services - 04/27/2019 6:29 EST Electronically signed by Angelika [facility] Conversion Interventionist Cerner at 07/02/2022 5:05 PM CDT documented in this encounter Plan of Treatment Not on file documented as of this encounter Visit Diagnoses Not on filedocumented in this encounter
--- OUTSIDE RECORDS SUMMARY | 2024-09-28 08:15 | XMS_ITS | Encounter Summary ---
Author Organization [employer] ([place], [place], [place], [place]) Address [address] [place] [address] Care Team Providers Care Rn Military Name Role Phone Unavailable Primary Care Provider Unavailtruman e Encounter Details Date Type Department Care Team (Late st Contact Info) Description 05/12/2019 Transcribed Document [facility] [place] [address] [place] [address] ProviderLexi MD [address] [place] [address] Social History Tobacco Use Types [...] - Historical ProviderMD - 05/12/2019 4:12 PM WIRE SETTER Patient: TAY FONSECA Age: 73 years Sex: [...] causes a rash Thanks, Link Duron, PharmD #[id number] documented in this encounter Plan of Treatment Not on file documented as of this encounter Visit Diagnoses Not on filedocumented in this encounter
--- OUTSIDE RECORDS SUMMARY | 2024-09-28 08:15 | XMS_ITS | Encounter Summary ---
Author Organization [employer] ([place], [place], [place], [place]) Address [address] [place] [address] Care Team Providers Care Rock Mason Name Role Phone Unavailable Primary Care Provider Unavailabl e Encounter Details Date Type Department Care Team (Late st Contact Info) Description 05/12/2019 Transcribed Document [facility] [place] Family Medicine [address] [place] [address] ProviderLexi MD [address] [place] [address] Social History Tobacco Use Types [...] - Historical ProviderMD - 05/12/2019 9:00 AM REAL ESTATE TEACHER Event Note Entered On: 05/12/2019 9:12 EST [...]
--- OUTSIDE RECORDS SUMMARY | 2024-09-28 08:16 | XMS_ITS | Encounter Summary ---
Author Organization [employer] ([place], [place], [place], [place]) Address [address] [place] [address] Care Team Providers Care Drafter Chief Design Name Role Phone Unavailable Primary Care Provider Unavailabl e Encounter Details Date Type Department Care Team (Late st Contact Info) Description 05/16/2019 Transcribed Document [facility] [place] [address] [place] [address] ProviderLexi MD [address] [place] [address] Social History Tobacco Use Types [...] - Lexi ProviderMD - 05/16/2019 3:17 PM REAL ESTATE INTERNSHIP Patient: TAY FONSECA Age: 73 Years Sex: [...]
--- OUTSIDE RECORDS SUMMARY | 2024-09-28 08:16 | XMS_ITS | Encounter Summary ---
Author Organization [employer] ([place], [place], [place], [place]) Address [address] [place] [address] Care Team Providers Care Automatic Mounter Name Role Phone Unavailable Primary Care Provider Unavailabl e Encounter Details Date Type Department Care Team (Late st Contact Info) Description 05/16/2019 Transcribed Document [facility] [place] [address] [place] [address] ProviderLexi MD [address] [place] [address] Social History Tobacco Use Types [...] - Historical ProviderMD - 05/16/2019 4:00 PM CORE MEASURES ABSTRACTOR Discharge Summary, PT Entered On: 05/19/2019 11:00 EST Performed On: 05/16/2019 16:00 EST by WILIAN KENNEDY, PT Discharge Summary Reason for Discharge : Discharged from hospital Discharged to, Therapy : Unit, senior care Discharge Summary Comment, PT : 33 acute PT goals met. Modified Independent with transfers Ambulated 200' with RWx SBA/CGA 25# WB R LE PAULA HEP AROM x 20 reps D/C to [facility] for continued care and rehab on 05/16/19. WILIAN KENNEDY, PT - 05/19/2019 10:59 EST [facility] Goals Other PT LTG Grid Goal #1 [...]
--- OUTSIDE RECORDS SUMMARY | 2024-09-28 08:16 | XMS_ITS | Encounter Summary ---
Author Organization [employer] ([place], [place], [place], [place]) Address [address] [place] [address] Care Team Providers Care Wind Turbine Installer Name Role Phone Unavailable Primary Care Provider Unavailabl e Encounter Details Date Type Department Care Team (Late st Contact Info) Description 05/16/2019 Transcribed Document [facility] [place] [address] [place] [address] ProviderLexi MD [address] [place] [address] Social History Tobacco Use Types [...] - Historical ProviderMD - 05/16/2019 4:01 PM CSR RETAIL Nursing Discharge Summary Entered On: 05/16/2019 16:02 [...] 05/16/2019 16:01 EST Electronically signed by Angelika, [facility] Conversion Mac Developer Cerner at 07/02/2022 4:53 PM CDT documented in this encounter Plan of Treatment Not on file documented as of this encounter Visit Diagnoses Not on filedocumented in this encounter
--- OUTSIDE RECORDS SUMMARY | 2024-09-28 08:16 | XMS_ITS | Encounter Summary ---
Author Organization [employer] ([place], [place], [place], [place]) Address [address] [place] [address] Care Team Providers Care Weight Loss Counselor Name Role Phone Unavailable Primary Care Provider Unavailabl e Encounter Details Date Type Department Care Team (Late st Contact Info) Description 05/16/2019 Transcribed Document [facility] [place] Family Medicine [address] [place] [address] ProviderLexi MD [address] [place] [address] Social History Tobacco Use Types [...] - Historical ProviderMD - 05/16/2019 2:00 AM FOOD AND BEVERAGE SERVER Glue Clamp Operator Details Entered On: 05/16/2019 4:23 EST Performed [...]
--- OUTSIDE RECORDS SUMMARY | 2024-09-28 08:16 | XMS_ITS | Encounter Summary ---
Author Organization [employer] ([place], [place], [place], [place]) Address [address] [place] [address] Care Team Providers Care Interactive Media Marketing Specialist Name Role Phone Unavailable Primary Care Provider Unavailabl e Encounter Details Date Type Department Care Team (Late st Contact Info) Description 05/16/2019 Transcribed Document [facility] [place] [address] [place] [address] ProviderLexi MD [address] [place] [address] Social History Tobacco Use Types [...] - Lexi ProviderMD - 05/16/2019 12:30 PM GREENHOUSE OR NURSERY TRANSPLANTER [address] [address] TAY FONSECA Brittany :1945 Visit [...] by family, RN please call report to [phone] fax dc summary to [phone] Continue to use incentive spirometer for approx [...] 1 Tablet(s) Oral Every Day Pickup at [facility] [place] [address] 27 S levothyroxine 50 Microgram(s) Oral Every Day simvastatin 40 Milligram(s) Oral Every Evening Pharmacy Information [facility] [place] [facility] [facility] [address]: [address] [facility] [address] [place] [phone] Take your medications faithfully. Do NOT skip [...] Barley. Bulgur wheat. Millet. Bran muffins. Popcorn. [place] wafer crackers. Vegetables Sweet potatoes. Spinach. Kale. Artichokes. Cabbage. Broccoli. Green peas. Carrots. Squash. Fruits Berries. Pears. Apples. Oranges. Avocados. Prunes and raisins. Dried figs. Meats and Other Protein Sources [place], kidney, kpalan, and soy beans. Split peas. Lentils. Nuts [...] harrison has 11 g of protein. ??? [place] seeds ??? 1 oz has 5.5 g [...] floor. ??? Place frequently used items in bcxa-up-pxfku places ??? Keep electrical cables out of [...] ??? Using the bathroom. ??? Using household forestry support specialist or toxic chemicals. ??? Touching or taking [...] Keep items that you use often in rprr-ai-veazh places. Lower the shelves around your home [...] the way. ??? Do not use floor belarusian or wax that makes floors slippery. If [...] Control and Prevention, STEADI: https://cdc.gov ??? National [place]ill on Aging: https://ko5lxmk.bolivar.nih.gov Contact a doctor if: ??? You are [...] 12/29/2009 Document Revised: 10/17/2017 Document Reviewed: 10/17/2017 [employer] Interactive Patient Education ?? 2019 SoFits.Me. High-Fiber Diet Fiber, also called dietary fiber, [...] Barley. Bulgur wheat. Millet. Bran muffins. Popcorn. [place] wafer crackers. Vegetables Sweet potatoes. Spinach. Kale. Artichokes. Cabbage. Broccoli. Green peas. Carrots. Squash. Fruits Berries. Pears. Apples. Oranges. Avocados. Prunes and raisins. Dried figs. Meats and Other Protein Sources [place], kidney, kaplan, and soy beans. Split peas. [...] 03/04/2006 Document Revised: 08/09/2016 Document Reviewed: 08/17/2014 [employer] Interactive Patient Education ?? 2018 SoFits.Me. hydromorphone (oral) (MIRZA ibanez) Adriana Krishnamurthyalgo What [...] extended-release form of this medicine is for jjjqmn-ogp-aenex treatment of moderate to severe pain, not [...] against the law. Stop taking all other niqubs-fpw-vaiyu narcotic pain medications when you start taking [...] may report side effects to FDA at 3-124-NLA-9181. What other drugs will affect hydromorphone? Opioid [...] drugs may affect hydromorphone, including prescription and ijlt-ooj-seaebwj medicines, vitamins, and herbal products. Not all [...] to ensure that the information provided by [employer]. ('Multum') is accurate, up-to-date, and complete, but no guarantee is made to that effect. Drug information contained herein may be time sensitive. [employer] information has been compiled for use by healthcare practitioners and consumers in the [place] and therefore [employer] does not warrant that uses outside of the [place] are appropriate, unless specifically indicated otherwise. Retraces drug information does not endorse drugs, diagnose patients or recommend therapy. Retraces drug information is an informational resource designed [...] effective or appropriate for any given patient. [facility] does not assume any responsibility for any aspect of healthcare administered with the aid of information [facility] provides. The information contained herein is not intended to cover all possible uses, directions, precautions, warnings, drug interactions, allergic reactions, or adverse effects. If you have questions about the drugs you are taking, check with your doctor, nurse or pharmacist. Copyright 6603-7008 [employer]. Version: 9.03. Revision Date: 01/01/2019. gabapentin ([place] [...] are a day sleeper or work a outside collector. Some people have thoughts about suicide while [...] may report side effects to FDA at 5-636-FFP-4163. What other drugs will affect gabapentin? Using gabapentin with other drugs that slow your breathing can cause dangerous side effects or . Ask your doctor before using opioid medication, a sleeping pill, cold or allergy medicine, a muscle relaxer, or medicine for anxiety or seizures. Other drugs may affect gabapentin, including prescription and ltwe-nqs-colhpdp medicines, vitamins, and herbal products. Tell your [...] to ensure that the information provided by [employer]. ('Multum') is accurate, up-to-date, and complete, but no guarantee is made to that effect. Drug information contained herein may be time sensitive. [employer] information has been compiled for use by healthcare practitioners and consumers in the [place] and therefore [employer] does not warrant that uses outside of the [place] are appropriate, unless specifically indicated otherwise. Retraces drug information does not endorse drugs, diagnose patients or recommend therapy. Retraces drug information is an informational resource designed [...] effective or appropriate for any given patient. [employer] does not assume any responsibility for any aspect of healthcare administered with the aid of information [employer] provides. The information contained herein is not intended to cover all possible uses, directions, precautions, warnings, drug interactions, allergic reactions, or adverse effects. If you have questions about the drugs you are taking, check with your doctor, nurse or pharmacist. Copyright 3604-5634 [employer]. Version: 15.01. Revision Date: 03/12/2019. oxycodone (ox [...] The extended-release form of oxycodone is for dpngge-gsa-dnuyp treatment of pain and should not be [...] against the law. Stop taking all other hagoqq-aax-rbmjt narcotic pain medicines when you start taking [...] may report side effects to FDA at 1-502-HMO-2089. What other drugs will affect oxycodone? You [...] may affect oxycodone. This includes prescription and obve-zvp-sgecuek medicines, vitamins, and herbal products. Not all [...] to ensure that the information provided by [employer]. ('Multum') is accurate, up-to-date, and complete, but no guarantee is made to that effect. Drug information contained herein may be time sensitive. [employer] information has been compiled for use by healthcare practitioners and consumers in the [place] and therefore [employer] does not warrant that uses outside of the [place] are appropriate, unless specifically indicated otherwise. Retraces drug information does not endorse drugs, diagnose patients or recommend therapy. Retraces drug information is an informational resource designed [...] effective or appropriate for any given patient. [employer] does not assume any responsibility for any aspect of healthcare administered with the aid of information [employer] provides. The information contained herein is not intended to cover all possible uses, directions, precautions, warnings, drug interactions, allergic reactions, or adverse effects. If you have questions about the drugs you are taking, check with your doctor, nurse or pharmacist. Copyright 6519-7937 [employer]. Version: 13.03. Revision Date: 12/29/2018. tramadol (TRAM [...] extended-release form of this medicine is for yyujqt-roc-caust treatment of pain. This form of tramadol [...] against the law. Stop taking all other vnguwb-azm-snahe narcotic pain medications when you start taking [...]
--- OUTSIDE RECORDS SUMMARY | 2024-09-28 08:16 | XMS_ITS | Data Portability ---
Author Organization [facility] [place] [facility] Address [address] [facility] [address] [place] [address] Care Team Providers Care Scanner Supervisor Name Role Phone JESUS MARINA Primary Care [...] By Organization Details Last Modified Time 02/25/2019 [id number] echocardiogram i s normal with normal LV [...] and Address Organization Details Recorded Time Dyspnea 447593507 Active 2018 JHONY GUTHRIE PA-C [address] [place], [address], [facility] 14:13:12 Essential hypertension 15508615 Active 2018 JHONY GUTHRIE PA-C [address] [place], [address], [facility] 14:13:19 Dyslipidemia 610377946 Active 2018 JHONY GUTHRIE PA-C [address] [place], [address], [facility] 14:13:28 Problem Notes Documentation Provider Name and Address Organization Details Recorded Time Trans-thoracic Echocardiogram (tte) (proc) : [address] [place] [facility] [address]LLHXVSR, PEGGY L (id #[id number], : 1945) [facility] [address] [place] [address] [address] [place] [address] Encounter Summary - Progress Note Date Printed: [...] received this fax in error, please visit [email or web address] [email or web address] to notify the sender and confirm that the information will be destroyed. If you do not have internet access, please call to notify the sender and confirm that the information will be destroyed. Thank you for your attention and cooperation. [ID:[id number]] Patient Tay Fonseca (73yo, F) #[id number] 1945 Patient Demographics: Address [address] [place], [place] [address] Encounter Notes: Encounter Reason/Date Echo/[place] 02/25/2019 - [...] Referring Physician: Jhony Guthrie PA-C Tech: Di [facility] Location: E Type: Complete Diagnosis: [place] HT: [...] by: JOSEPH PEARSON MD JHONY GUTHRIE PA-C [address] [place] [address], [phone], [facility] 02/26/2019 09:32:02 Procedures Surgical History Date Name Laterality Status Provider Name and Address Organization Details Recorded Time 02/26/20 19 Echocardiogram completed JOSEPH PEARSON MD [address] [place] [address], [phone], [facility] 02/25/2019 16:42:19 02/26/20 19 EKG completed JHONY GUTHRIE PA-C [address] [place] [address], [phone], [facility] 02/25/2019 14:12:25 hysterectomy completed Jacque Donohue [facility] 02/25/2019 13:39:55 delivery completed Jacquebernadette Donohue [facility] 02/25/2019 13:40:38 Imaging Results None recorded. Procedure Notes None recorded. Medical Equipment None Reported. Allergies Allergen ID Allergen Name Allergen Category Reaction Reaction Severity Criticality Documentation Date Start Date Code Code System Note Provider Name and Address Organization Details Recorded Time 550926 Product containin g penicilli n (product) medicatio n Not available Not available Not available 02/04/2019 45733 8001 SNOMED Jacquebernadette Don[facility] 9 11:40:56 Medications Name Sig Start Date [...] Updated DateTime 02/25/2019 157.48 cm 43.9 kg/m2 384386.1 7 g 96 /min 124/82 mm[Hg] Jacque Donohue [facility] 02/25/2019 13:46:06 Social History Question Answer Notes LastModified by Organizat ion Details LastModified Time Tobacco Smoking Status Former Smoker Jacque [facility] 02/25/2019 13:37:33 How Much Tobacco Do You Chew? None [email or web address] Information not available 02/04/2019 Which Illicit Or Recreational Drugs Have You Used? No Illicit Drug Use Per Patient Information not available 02/25/2019 Live Alone Or With Others? Alone Information not available 02/25/2019 Marital Status Unknown [email or web address] Informatio n not available 02/25/2019 How Much Tobacco Do You Smoke? No [email or web address] Information not available 02/04/2019 How Many Years Have You Smoked Tobacco? 15 [email or web address] Information not available 02/25/2019 Sex: Unknown Functional Status Question Answer Note LastModified by Organizat ion Details LastModified Time What is your level of alcohol consumption? None [email or web address] Information not available 02/25/2019 Do you or have you ever used smokeless tobacco? Never used smokeless tobacco Information not available 02/04/2019 What is your occupation? retired Information not available 02/25/2019 Do you or have you ever used e-cigarettes or vape? Never used electronic cigarettes [email or web address] Information not available 02/04/2019 Mental Status None recorded. Family History Relationship Description Onset Age of this Age Resolved Age Notes LastModified by Organization Details LastModified Time Unspecified Relation Family history of malignant neoplasm [email or web address] Not available 2018 11:38:14 Unspecified Relation Heart disease [email or web address] Not available 2018 11:38:31 Unspecified Relation Family history of stroke [email or web address] Not available 2018 11:38:40 Unspecified Relation Seizure Not available 02/05/20 11:38:49 Unspecified Relation Diabetes mellitus [email or web address] Not available 2018 11:39:02 Medical History Condition Response Diabetes Y Hyperlipidemia Y Hypertension Y Gynecological HistoryNo gynecological history recorded. Obstetrics History GPAL:G 0 P 0 0 0 0 Past Encounters Encounter ID Performer Location Encounter Start Date Encounter Closed Date Diagnosis/Indication Diagnosis SNOMED-CT Code Diagnosis ICD10 Code Diagnosis Note [id number] JHONY GUTHRIE PA-C CARDIOLOG Y [facility] [address] [facility] ,[address] [place] [address] 02/25/2019 13:17:50 02/26/2019 08:28:12 Dyspnea 472997330 R06.00 Essential hypertension 94238925 I10 Dyslipidemia 915459367 E 78.5 [id number] JOSEPH PEARSON MD ECHO VASCULAR LAB [address] [facility] [place] [address] 02/25/2019 14:18:01 03/03/2019 07:37:28 Dyspnea on exertion 46292870 R06.09 Health Concerns Section Related Observation LastModified by Organization Detai ls LastModified Time None Recorded Concern Status LastModified by Organization Details LastModified Time None Recorded Advance Directives Directive None Recorded Payers Insurance Date Sequence Insurance Name Policy Number Policy Vieira Covered Member ID Vieira Member ID Guarantor Name 02/10/2020 1 [place] Tay L Duglas [id number] Tay L Axton 03/03/2019 2 AARP (MEDICARE SUPPLEMENT) Tay L Axton [id number] Tay L Axton Notes Date Note Type Note Provider Name [...] severe back pain. No prior history of DE, angina, palpitations dizziness syncope or CHF symptoms. She is treated for hypertension, diabetes and hyperlipidemia. Technically difficult study with limited visualization. No significant valvular heart disease. Trace MR with dilated left atrium. Diastolic dysfunction present. Normal systolic function. Ejection fraction >55%. There are no prior studies for comparison. JHONY GUTHRIE PA-C [address] [place], [address], [facility] 02/25/2019 17:01:53 OBGyn Episode No OBEpisode recorded.
--- OUTSIDE RECORDS SUMMARY | 2024-09-28 08:16 | XMS_ITS | Encounter Summary ---
Author Organization [employer] ([place], [place], [place], [place]) Address [address] [place] [address] Care Team Providers Care Leave Manager Name Role Phone Unavailable Primary Care Provider Unavailabl e Encounter Details Date Type Department Care Team (Late st Contact Info) Description 05/16/2019 Transcribed Document [facility] [place] [address] [place] [address] ProviderLexi MD [address] [place] [address] Social History Tobacco Use Types [...] - Lexi ProviderMD - 05/16/2019 9:53 AM MOLD FORMS BUILDER Discharge Instructions Entered On: 05/16/2019 9:55 EST [...] 05/16/2019 9:53 EST Electronically signed by Angelika [facility] Conversion Drafter Topographical Cerner at 07/02/2022 4:51 PM CDT documented in this encounter Plan of Treatment Not on file documented as of this encounter Visit Diagnoses Not on filedocumented in this encounter
--- OUTSIDE RECORDS SUMMARY | 2024-09-28 08:16 | XMS_ITS | Encounter Summary ---
Author Organization [employer] ([place], [place], [place], [place]) Address [address] [place] [address] Care Team Providers Care Lumber Trimmer Name Role Phone Unavailable Primary Care Provider Unavailabl e Encounter Details Date Type Department Care Team (Late st Contact Info) Description 05/25/2019 Transcribed Document [facility] Radiology [address] [place] [address] Alba River MD [address] [place] [address] Social History Tobacco Use Types Packs/Day [...] on 05/12/2019 Documented in Lab Results Review CDS/Mounter Signature: Donovan Nunes Phone #: [phone] Extn [phone] Date/Time: 05/25/2019 09:40 This is a permanent part of the Medical Record [id number] [facility] Updated: documented in this encounter Plan of Treatment Not on file documented as of this encounter Visit Diagnoses Not on filedocumented in this encounter
--- OUTSIDE RECORDS SUMMARY | 2024-09-28 08:16 | XMS_ITS | Clinical Summary ---
Author Organization [facility] Address [address] [place] [address] Phone Care Team Providers Care Marine Consultant Name Role Phone Pcp, Pending Only MD [...] on file AARP MCR SUPPLEMENT Care Teams Marine Consultant Relationship Specialty Start Date End Date Pcp, Pending Only, [place], [place] [phone] PCP - General Internal Medicine 01/05/13
--- OUTSIDE RECORDS SUMMARY | 2024-09-28 08:16 | XMS_ITS | Clinical Summary ---
Author Organization [employer] ([place], [place], [place], [place]) Address [address] [place] [address] Care Team Providers Care Prosthetic Lab Technician Name Role Phone Unavailable Primary [...]
--- OUTSIDE RECORDS SUMMARY | 2024-09-28 08:16 | XMS_ITS | Encounter Summary ---
Author Organization [employer] ([place], [place], [place], [place]) Address [address] [place] [address] Care Team Providers Care Vmware Systems Administrator Name Role Phone Unavailable Primary Care Provider Unavailabl e Encounter Details Date Type Department Care Team (Late st Contact Info) Description 04/24/2019 Transcribed Document [facility] [place] [facility] [place] [address] ProviderLexi MD [address] [place] [address] Social History Tobacco Use Types [...] - Lexi ProviderMD - 04/24/2019 11:06 AM OCULAR CARE AIDE Patient: TAY FONSECA Age: 73 Years Sex: [...]
--- OUTSIDE RECORDS SUMMARY | 2024-09-28 08:16 | XMS_ITS | Encounter Summary ---
Author Organization [employer] ([place], [place], [place], [place]) Address [address] [place] [address] Care Team Providers Care Bi Data Architect Name Role Phone Unavailable Primary Care Provider Unavailabl e Encounter Details Date Type Department Care Team (Late st Contact Info) Description 05/16/2019 Transcribed Document [facility] [place] Medicine [address] [place] [address] ProviderLexi MD [address] [place] [address] Social History Tobacco Use Types [...] - Historical ProviderMD - 05/16/2019 2:42 PM PLANNING COORDINATOR On Going Discharge Planning Entered On: 05/16/2019 14:47 EST Performed On: 05/16/2019 14:42 EST by KYRA ZEPEDA RN-Supervisor Word ProcessingAbrasive Worker Progress Note Discharge Arrangements : Patient Post-Acute Information Patient Name: TAY FONSECA Gender: Female : [birth year] Age: 73 Years No Post-Acute Placement(s) Listed No Post-Acute Service(s) Listed No [place] Referral(s) Listed Discharge Options Discussed with Patient : Short term rehabilitation Patient Offered Choice/Affiliations Explained : Yes KYRA ZEPEDA RN-Supervisor Word Processing - 05/16/2019 14:42 EST Narrative Progress Note Narrative Progress Note : Dr River dictated a dc summary, however, is not showing up for anyone to see. Cm contacted Medical Records at [facility] in regards of having someone check for [...] go ahead and fax dc summary to [facility] and to have nurse call report........sds Historical Progress Note : Pt has been changed to in pt status per IPAS. referrals sent out via [employer] [facility] for [place] facilities per pts choice. SANDRA DEL ANGEL, Care Management-Lab Scientist - 05/13/19 10:07:21 KYRA ZEPEDA, RN-Supervisor Word Processing - 05/16/2019 14:42 EST Electronically signed by [facility], [facility] Conversion Dike Supervisor Cerner at 07/02/2022 4:57 PM CDT documented in this encounter Plan of Treatment Not on file documented as of this encounter Visit Diagnoses Not on filedocumented in this encounter
--- OUTSIDE RECORDS SUMMARY | 2024-09-28 08:16 | XMS_ITS | Encounter Summary ---
Author Organization [employer] ([place], [place], [place], [place]) Address [address] [place] [address] Care Team Providers Care Pickle Processor Name Role Phone Unavailable Primary Care Provider Unavailabl e Encounter Details Date Type Department Care Team (Late st Contact Info) Description 05/16/2019 Transcribed Document [facility] [place] Family Medicine [address] [place] [address] ProviderLexi MD [address] [place] [address] Social History Tobacco Use Types [...] - Historical ProviderMD - 05/16/2019 1:00 AM REPRODUCTIVE HEALTHCARE ASSISTANT Pain Assessment Entered On: 05/16/2019 4:23 EST Performed On: 05/16/2019 0:07 EST by Lacey eFrnandez RN Intervention Information: acetaminophen Performed by Lacey [...]
--- OUTSIDE RECORDS SUMMARY | 2024-09-28 08:16 | XMS_ITS | Encounter Summary ---
Author Organization [employer] ([place], [place], [place], [place]) Address [address] [place] [address] Care Team Providers Care Account Analyst Name Role Phone Unavailable Primary Care Provider Unavailabl e Encounter Details Date Type Department Care Team (Late st Contact Info) Description 04/24/2019 Transcribed Document [facility] [place] [address] [place] [address] ProviderLexi MD [address] [place] [address] Social History Tobacco Use Types [...] - Historical ProviderMD - 04/24/2019 12:07 PM RATING CLERK PAT Adult Entered On: 04/24/2019 12:15 EST [...] Source : Stated Height Entry Format : Brule Height, Feet : 5 ft(Converted to: 152 cm, 60 Inch) Height, Inches : 2 Inch(Converted to: 0 ft 2 Inch, 5.08 cm) Clinical Height : 157.48 cm Weight Source : Standing scale Weight Entry Format : Brule Clinical Dosing Weight : 109.09 kg Weight, Pounds : 240 lb Body Surface Area (BSA) : 2.07 m2 Body Mass Index : 44 kg/m2 (>HHI) Mountainair Body Weight : 50 kg Nuvia Moseley [...] Nuvia Moseley Rn - 04/24/2019 12:07 EST [place]ie Suicide Severity Rating Scale (C-SSRS) CSSRS Past [...] Obtained From : Patient Primary Language : Irish Preferred Communication Mode : Verbal Communication Barrier [...]
--- OUTSIDE RECORDS SUMMARY | 2024-09-28 08:16 | XMS_ITS | Referral Summary ---
Author Organization [facility] Address [address] [place] [address] Phone Care Team Providers Care Digital Solutions Architect Name Role Phone Pcp, Pending Only MD [...] Not on file Insurance MEDICARE on file [facility] SUPPLEMENT Member Subscriber Plan / Payer ( fective 2012-Present) Name:Dominga Ardon Relation to Subscriber:Self Name:Dominga Ardon Payer ID:[id number] (NAIC) Group ID:Not on file Type:Indemnity Address: [place] [id number] MEDICARE on file [facility] SUPPLEMENT Care Teams Digital Solutions Architect Relationship Specialty Start Date End Date Pcp, Pending Only, [place] [address] PCP - General Internal Medicine 01/05/13
--- OUTSIDE RECORDS SUMMARY | 2024-09-28 08:16 | XMS_ITS | Encounter Summary ---
Author Organization [employer] ([place], [place], [place], [place]) Address [address] [place] [address] Care Team Providers Care Lens Hardener Name Role Phone Unavailable Primary Care Provider Unavailabl e Encounter Details Date Type Department Care Team (Late st Contact Info) Description 05/16/2019 Transcribed Document [facility] Family Medicine [address] [place] [address] ProviderLexi MD [address] [place] [address] Social History Tobacco Use Types [...] Lexi Walsh MD - 05/16/2019 12:29 PM SUSTAINABILITY CONSULTANT Patient Education Materials Follows: What to expect [...] Barley. Bulgur wheat. Millet. Bran muffins. Popcorn. [place] wafer crackers. Vegetables Sweet potatoes. Spinach. Kale. Artichokes. Cabbage. Broccoli. Green peas. Carrots. Squash. Fruits Berries. Pears. Apples. Oranges. Avocados. Prunes and raisins. Dried figs. Meats and Other Protein Sources Hunt, kidney, kaplan, and soy beans. Split peas. [...] harrison has 11 g of protein. ?? Brandon seeds ??? 1 oz has 5.5 g [...] floor. ?? Place frequently used items in kbfu-rf-ebupa places ?? Keep electrical cables out of [...] ?? Using the bathroom. ?? Using household paver layer or toxic chemicals. ?? Touching or taking [...] Keep items that you use often in lgwe-xu-cpfld places. Lower the shelves around your home [...] the way. ??? Do not use floor croatian or wax that makes floors slippery. If [...] Control and Prevention, [place]: https://cdc.gov ??? National [place] on Aging: https://ty4mahk.bolivar.nih.gov Contact a doctor if: ??? You are [...] 12/29/2009 Document Revised: 10/17/2017 Document Reviewed: 10/17/2017 [employer] Interactive Patient Education ? 2019 [employer] High-Fiber Diet Fiber, also called dietary [...] Barley. Bulgur wheat. Millet. Bran muffins. Popcorn. [place] wafer crackers. Vegetables Sweet potatoes. Spinach. Kale. Artichokes. Cabbage. Broccoli. Green peas. Carrots. Squash. Fruits Berries. Pears. Apples. Oranges. Avocados. Prunes and raisins. Dried figs. Meats and Other Protein Sources Hunt, kidney, kaplan, and soy beans. Split peas. [...] 08/17/2014 Elsevier Interactive Patient Education ? 2018 [employer] Electronically signed by Meghan Carney Conversion Shot Core Drill Operator Helper Cerner at 07/02/2022 5:18 PM CDT documented in this encounter Plan of Treatment Not on file documented as of this encounter Visit Diagnoses Not on filedocumented in this encounter
--- OUTSIDE RECORDS SUMMARY | 2024-09-28 08:16 | XMS_ITS | Encounter Summary ---
Author Organization [employer] ([place], [place], [place], [place]) Address [address] [place] [address] Care Team Providers Care Circular Saw Filer Name Role Phone Unavailable Primary Care Provider Unavailabl e Encounter Details Date Type Department Care Team (Late st Contact Info) Description 04/24/2019 Transcribed Document [facility] [place] [facility] [address] [place] [address] ProviderLexi MD [address] [place] [address] Social History Tobacco Use Types [...] - Historical ProviderMD - 04/24/2019 12:47 PM LEAK INSPECTOR Event Note Entered On: 04/24/2019 12:49 EST [...]
--- NOTE | 2024-09-28 08:45 | MR_ITS ---
FINAL REPORT CLINICAL HISTORY: abnormal mri head and neck, blockage concern angio neck w/o 09/24/24 COMPARISON: Prior MRA of the neck without intravenous contrast. FINDINGS: There is mild degradation of overall image quality secondary to motion artifact. Multiple projection images of the neck arterial vasculature were obtained without and with contrast. The raw data images were also reviewed. The aortic arch is unremarkable in appearance. There is mild stenosis of the origin of the right internal carotid artery, producing approximately 20% luminal diameter stenosis. The right internal carotid artery has an unremarkable appearance without evidence of stenosis or occlusion. The right external carotid artery is patent. The right vertebral artery is diminutive but present. The left common carotid artery has an unremarkable appearance without evidence of stenosis or occlusion. The left internal carotid artery is patent without evidence of stenosis or occlusion. The left external carotid artery is patent. The left vertebral artery is dominant and widely patent. IMPRESSION: Mild stenosis of the proximal right internal carotid artery of approximately 20%. No significant stenosis noted in the left carotid artery. There is a dominant left vertebral artery, widely patent. The right vertebral artery is diminutive but present. Reviewed, Interpreted and Dictated by Jessica Acevedo MD Transcribed by Gely Warner Authenticated and [facility]
[2024-09-28] MEDS: 0.9 % SODIUM CHLORIDE 50 ML VIAL IV (09:26)
[2024-09-28] MEDS: GADOTERIDOL INJ 20ML SYRINGE 18 ML IV (09:27)
[2024-09-28] MEDS: SODIUM CHLORIDE 0.9% 10ML SYR (RAD ONLY) 10 ML IV (09:27)
== END 2024-09-28 23:59 | disposition home or self-care (01) ==
LOC: RAD 08:10
PROVIDERS: PCP Internal Medicine Adolescent Medicine; Visit Provider Nurse Practitioner
DX: I65.21 Occlusion and stenosis of right carotid artery (principal); I77.74 Dissection of vertebral artery; R93.89 Abnormal findings on diagnostic imaging of other specified body structures
CPT/HCPCS: 70548; A9576

== ENCOUNTER 2024-09-30 13:50 | Outpatient (RCR) | payer MEDICARE, SELFPAY ==
--- NOTE | 2024-09-30 16:41 | HMH.PTOPEV ---
PT Outpatient Evaluation Rehab PT Outpatient Evaluation Start: 09/30/24 15:46 Freq: Status: Active Protocol: Document 09/30/24 15:46 PHORNE (Rec: 09/30/24 16:40 PHORNE [id number]) E-signed By Nik Grimes, PT Outpatient Therapy Subjective History Subjective History This is the initial PT eval for Dominga Ardon, 78 yowf who presents with generalized c/o dizziness and feeling off balance x ~ 1 mo. She states, I just feel dizzy all the time when I am standing or walking. I don't have any problems if I sit or lay down. I've had vertigo before and this is not the same feeling. She does not endorse a specific position or motion that causes her symptoms, only standing or walking. She reports hx of several fall due to poor balance. She also reports she takes Meclizine daily for her prior hx of vertigo. She has PMH of HTN, HLD, DC with cardiac stents x 5, chronic neck pain, R PAULA, L ankle surgery x 2. She reports her PCP recently stopped 2 of her medications, because he thought I might be taking too much medicine. New diagnosis of No cancer in past 12 months? Chief Complaint Gives out/Unstable Symptom Type Other Symptoms Aggravated Standing,Walking By Prior Functional None Limitations Current Functional Standing,Walking Limitations Miscellaneous Dx PT Eval Objective Objective Pt recently underwent multiple studies of her head and neck circulation which showed at least smaller than normal size of R vertebral artery, and at worst, occlusion of the R vertebral artery. This information results in a contraindication for performing a Asad- Hallpike test or any BPPV canalith repositioning techniques, should BPPV be suspected. As such, these techniques were NOT performed. Occulomotor testing: Smooth Pursuit was difficult for the patient, but no nystagmus or symptoms noted. VOR cancellation positive for symptoms and mild nystagmus. Cross-Cover test positive for severe dizziness Head shake nystagmus test is positive for severe symptoms. Visual tracking test negative for symptoms TU sec Rhomber Test: Fail all positions. Outpatient Therapy Assessment Impairments Problems/ Impaired Gait Pattern,Impaired Walking,Impaired Impairmments Standing,Impaired Household Care,Impaired Balance, Impaired TUG Time,Impaired Self Care/Self Management Prognosis Rehab Potential Fair Comment Based on patient history and symptoms and Asad-Hallpike contraindicated at this time, it is unlikely that patient currently suffers from BPPV. Most likely pt symptoms represent a combination of cervicogenic dizziness, poor cranial circulation, and diffuse cerebral atrophy resulting in poor balance. Skilled therapy is indicated to improve patient balance and ambulation ability in order to return her to her PLOF. Clinical Impression Consistent with Yes Diagnosis Short Term Goals Number of Weeks 2 Decrease TUG Time Yes: 20 sec or less Improve Self Care/ Yes: No dizziness with standing still Self Management Patient to be Ind w/ Yes HEP Custodial Goals Number of Weeks 4 Improve Gait Pattern Yes: Normalized gait pattern with Assistive Device Decrease TUG Time Yes: 16 sec or less Improve Self Care/ Yes: No dizziness c/o with walking Self Management Patient to be Ind w/ Yes Advanced HEP Outpatient Therapy Plan of Care Treatment Plan May Include Therapeutic Exercise Yes Including Home Exercise Program Manual Therapy Yes Techniques Neuromuscular Re- Yes education Therapeutic Yes Activities to Return to Previous Functional/Work Level Gait Training Yes ADL/Self Care Yes Education Orthotics/Bracing/ Yes Splinting Group Therapy for Yes Medicare Eval/Re-Eval Yes Frequency Times per week 2 Duration Number of Weeks 4 Addendums This patient is a No candidate for social or vocational rehab ? Patient/Guardian Yes verbally acknowledges understanding of treatment program and consents to further treatment? Patient/Guardian Yes verbally acknowledges understanding of diagnosis, prognosis and goals for treatment? Eval Complexity PT Charges 73505 - High Complexity Shoulder/Elbow Eval Shoulder Objective Measurements Elbow Objective Measurements PHYSICIAN CERTIFICATION: I certify the specified therapy services for Dominga Ardon are required, authorized, and reviewed every 30 days.
== END 2024-09-30 23:59 | disposition home or self-care (01) ==
LOC: PT 13:50
PROVIDERS: PCP Internal Medicine Adolescent Medicine; Visit Provider Physician Assistant
DX: R42 Dizziness and giddiness (principal); R26.81 Unsteadiness on feet
CPT/HCPCS: 97163

== ENCOUNTER 2024-12-19 12:51 | Emergency (ER) | payer MEDICARE, SELFPAY ==
--- OUTSIDE RECORDS SUMMARY | 2024-08-22 17:30 | XMS_ITS ---
Author Organization [facility] Address [address] [place] [address] Care Team Providers Care Brickmason Name Role Phone Migration, Provider Unavailable Unavailable Allergies Allergen (clinical drug ingredient) Drug/Non Drug Allergy documented on EMR Reaction Allergy Type Onset Date Status Penicillin hives Drug Allergy Active Trace Metals rash Drug Allergy 06/11/2019 Act dudley REASON FOR VISIT [facility] Conversion Encounter Medications Medication SIG (Take, Route, Frequency, Duration) Notes Start Date End Date Status Simvastatin 40 MG Tablet 1 tab(s) orally once a day (at bedtime) Active Pioglitazone HCl 30 MG Tablet 1 tab(s) orally once a day Active Levothyroxine Sodium 50 MCG Tablet 1 tab(s) orally once a day Active Lisinopril-hydroCHLOROthiazi de 20-12.5 MG Tablet 1 tab(s) orally once a day Active Furosemide 40 MG Tablet 1 tab(s) orally once a day Active Citalopram Hydrobromide 40 MG Tablet 1 tab(s) orally once a day Active glipiZIDE 10 MG Tablet 2 tab(s) orally o nce a day Active Vitamin D (Ergocalciferol) 1.25 MG (74043 UT) Capsule 1 cap(s) orally once a week Active Encounters Encounter Location Date Provider Diagnosis [facility] [address] [place] [address] 08/22/2024 Provider Migration Plan Of Treatment No Information Progress Notes * MARIAN HellenomarDOB:1945 (79 yo F)Acc No.[id number]:08/22/2024 Patient: N cheyenneDominga Provider: :1945 A ge:78 Y S ex:Female Date:08/22/2024 Address:[address] [place], [place] [id number] Subjective: * Chief Complaints: * M ultum [facility] Conversion Encounter * Medications: T akingCitalopram Hydrobromide 40 MG Tablet 1 tab(s) orally once a day Furosemide 40 MG Tablet 1 tab(s) orally once a day Lisinopril-hydroCHLOROthiazide 20-12.5 MG Tablet 1 tab(s) orally once a day Levothyroxine Sodium 50 MCG Tablet 1 tab(s) orally once a day Pioglitazone HCl 30 MG Tablet 1 tab(s) orally once a day Simvastatin 40 MG Tablet 1 tab(s) orally once a day (at bedtime) Vitamin D (Ergocalciferol) 1.25 MG (87035 UT) Capsule 1 cap(s) orally once a week glipiZIDE 10 MG Tablet 2 tab(s) orally once a day Taking Citalopram Hydrobromide 40 MG Tablet 1 tab(s) orally once a day Taking Furosemide 40 MG Tablet 1 tab(s) orally once a day Taking Lisinopril-hydroCHLOROthiazide 20-12.5 MG Tablet 1 tab(s) orally once a day Taking Levothyroxine Sodium 50 MCG Tablet 1 tab(s) orally once a day Taking Pioglitazone HCl 30 MG Tablet 1 tab(s) orally once a day Taking Simvastatin 40 MG Tablet 1 tab(s) orally once a day (at bedtime) Taking Vitamin D (Ergocalciferol) 1.25 MG (48925 UT) Capsule 1 cap(s) orally once a week Taking glipiZIDE 10 MG Tablet 2 tab(s) orally once a day * Allergies: P enicillin: hivesTrace Metals: rash - Onset Date 06/11/2019 * Electronic signature of Prov ider Migration on 12/19/2024 at 01:07 PM EDT Sign off status: Pending * Provider: Date: 0 08/22/2024 Generated for Freddy boswell/Earnest/Richyitting on: 01:07 PM EDT
--- OUTSIDE RECORDS SUMMARY | 2024-11-23 13:00 | XMS_ITS | Encounter Summary ---
Author Organization Healthcare Address [address] [id number] Care Team Providers Care Cook Night Name Role Phone Humberto Downs MD Primary Care Provider [phone] Reason for Referral * Imaging (Routine) - Authorized Specialty Diagnoses / Procedures Referred By Contac t Referred To Contact Cardiology Diagnoses VBI (vertebrobasilar insufficiency) Procedures VAS US Carotid Duplex Bilateral Yifan Reveles MD [address] [facility] [address] [place] [address] Phone: tel: fax: Referral ID Status Reason Start Date Expiration Date Visits Requested Visits Authorized [id number] Authorized Perform Procedure 11/23/2024 05/25/2026 1 1 Reason for Visit * Reason Comments Dizziness Coronary artery disease involving [place] coronary artery of * Consultation (Routine) - Closed Specialty Diagnoses / Procedures Referred By Contact Referred To Contact [facility]ascular [facility] / [facility] Diagnoses Dizziness Coronary artery disease involving [place] coronary artery of [place] heart, unspecified whether angina present Zane Lowe PA [address] [place] [address] Phone: tel:[phone] fax:[phone] 1 [facility] [address] [facility] [address] [place] [address] Phone: tel: fax: Referral ID Status Reason Start Date Expiration Date V isits Requested Visits Authorized [id number] Closed Specialty Services Required 10/15/2024 04/16/2026 1 1 Encounter Details Date Type Department Care Team (Latest Contact Info) Description 11/23/2024 1:00 PM EDT Office Visit [facility] [address] [place] [address] Yifan Reveles MD [address] [facility] [address] [place] [address] VBI (vertebrobasilar insufficiency) (Primary Dx) Social History Tobacco Use Types Packs/Day Years Used Date Smoking Tobacco: Former Cigarettes Passive Smoke Exposure: Past Smokeless Tobacco: Never Tobacco Cessation:Counseling Given: Not Answered Comments:Quit smoking 25+ years AUDIT-C Answer Date Recorded Frequency of Alcohol Consumption Not on file 11/23/2024 Q2: How many drinks containi ng alcohol do you have on a typical day when you are drinking? Patient does not drink Frequency of Binge Drinking Not on file 10/2024 Comments Unknown Sex and Gender Information Value Date Recorded Sex Assigned at Not on file Legal Sex Female 7:34 PM EDT Gender Identity Not on file Sexual Orientation Not on file documented as of this encounter Last Filed Vital Signs Vital Sign Reading Time Taken Comments Blood Pressure 132/82 11/23/2024 1:15 PM EDT Pulse 101 11/23/2024 12:53 PM EDT Temperature 36.6 C (97.9 F) 11/23/2024 12:53 PM EDT Respiratory Rate - - Oxygen Saturation 96% 11/23/2024 12:53 PM EDT Inhaled Oxygen Concentration - - Weight 91.7 kg (202 lb 2.6 oz) 11/23/2024 12:53 PM EDT Height 157.5 cm (5' 2 ) 11/23/2024 12:53 PM EDT Body Mass Index 36.98 11/23/2024 12:53 PM EDT documented in this encounter Functional Status documented as of this encounter Miscellaneous Notes * Progress Notes - Yifan Reveles MD - 11/23/2024 1:00 PM EDT Dear Humberto Downs MD, HPI Several month of dizziness, constant. Daily. No smoking in 40 years, +asa, +statin, no AC ENT - cleared Neuro consult - in [place], 12/22/2024 Ophtho - needs some film build up after cataract surgery (2 years ago) Vascular Surgery History: (Date - Procedure - Hospital - Doctor) 06/2023 - PCI x4 - [facility] I personally and independently reviewed and interpreted the CT Images from today's visit which showed: Occlusion of proximal right vertebral artery with some reconstitution of the posterior [place] from the left vertebral. Possible ostial stenosis of the left vertebral Her chronic comorbid conditions that impact our treatment planning include: I reviewed the following co-morbidities which are stable and controlled: Patient Active Problem List Diagnosis Date Noted VBI (vertebrobasilar insufficiency) 11/23/2024 The following portions of the chart were reviewed this encounter and updated as appropriate: Tobacco Allergies Meds Problems Med Hx Surg Hx Fam Hx Subjective Review of Systems Objective Physical Exam Constitutional: well developed, well nourished, and in no acute distress Assessment/Plan In Summary: Dominga Ardon is a 79 y.o. year old female who we saw today in clinic. I discussed the test interpretations and management with associated orders of the following medical conditions of: Problem List Items Addressed This Visit VBI (vertebrobasilar insufficiency) - Primary Relevant Orders VAS US Carotid Duplex Bilateral Symptoms of dizziness as well as findings on CAT scan suspicious for vertebrobasilar insufficiency.Patient has already seen ENT, and will be seeing Neurology soon. At this point I would recommend a carotid duplex to assess perfusion dynamics, and if the results are suspicious for VB I, we would then recommend an angiogram, at that point we would have a discussion about what the options are from a minimally invasive or open standpoint. We will see her back for: Follow up in 1 month (on 12/23/2024). documented in this encounter Plan of Treatment Upcoming Encounters Date Type Department Care Team (Late st Contact Info) Description 01/04/2025 2:00 PM EDT Appointment [facility] [address] [place] [id number] 01/04/2025 2:40 PM EDT Office Visit [facility] [address] [place] [address] Yifan Reveles MD [address] [facility] [address] [place] [address] Scheduled Orders Name Type Priority Associated Diagnoses Orde r Schedule VAS US Carotid Duplex Bilateral Vascular Ultrasound Routine VBI (vertebrobasilar insufficiency) Expected: 12/23/2024, Expires: 05/27/2026 documented as of this encounter Visit Diagnoses Diagnosis VBI (vertebrobasilar insufficiency)- Primary documented in this encounter Additional Health Concerns Assessment Noted Time A fall risk assessment has been complete d for the patient 11/23/2024 1:01 PM EDT A Body Mass Index follow-up plan has been documented for the patient 11/23/2024 1:44 PM EDT documented as of this encounter Care Teams Cook Night Relationship Specialty Start Date End Date Humberto Downs MD [address] [facility] [place], [place] [id number] PCP - General 07/29/20 documented as of this encounter
[2024-12-19] VITALS (9 sets, daily range): BP systolic 118–139; BP diastolic 50–66; PULSE 84–101; RESP 18; TEMP 36.8–37.1; O2SAT 93–97; BMI 35.3
--- OUTSIDE RECORDS SUMMARY | 2024-12-19 13:05 | XMS_ITS | Encounter Summary ---
Author Organization [employer] ([place], [place], [place], [place]) Address [address] [place] [address] Care Team Providers Care Air Conditioning Service Technician Name Role Phone Unavailable Primary Care Provider Unavailabl e Encounter Details Date Type Department Care Team (Late st Contact Info) Description 05/15/2019 Transcribed Document [facility] [place] Family Medicine [address] [place] [address] ProviderLexi MD [address] [place] [address] Social History Tobacco Use Types [...] - Historical ProviderMD - 05/15/2019 5:00 PM RECREATIONAL PROGRAMS DIRECTOR Chart Check - Review Order Profile Entered [...]
--- OUTSIDE RECORDS SUMMARY | 2024-12-19 13:05 | XMS_ITS | Encounter Summary ---
Author Organization [employer] ([place], [place], [place], [place]) Address [address] [place] [address] Care Team Providers Care Stock Trader Name Role Phone Unavailable Primary Care Provider Unavailabl e Encounter Details Date Type Department Care Team (Late st Contact Info) Description 05/15/2019 Transcribed Document [facility] [place] Family Medicine [address] [place] [address] ProviderLexi MD [address] [place] [address] Social History Tobacco Use Types [...] - Historical ProviderMD - 05/15/2019 3:50 PM BELTING AND WEBBING INSPECTOR Director Global Intelligence Details Entered On: 05/15/2019 15:55 EST Performed [...]
--- OUTSIDE RECORDS SUMMARY | 2024-12-19 13:05 | XMS_ITS | Clinical Summary ---
Author Organization Healthcare Address [address] [place] [address] Care Team Providers Care Pumping Station Engineer Name Role Phone Humberto Downs MD Primary Care Provider [phone] Allergies Active Allergy Reactions Criticality Noted Date Comments Penicillins Hives,Itching,Rash,Vomiting High 013 Keflex OK Medications clopidogrel (Plavix) 75 MG tablet 06/15/2024 Active metoprolol succinate XL (Toprol-XL) 25 MG 24 hr tablet 09/16/2024 Act dudley ipratropium-albu terol (Duo-Neb) 0.5-2.5 mg/3 mL nebulizer solution as needed. 05/14/2024 Active meclizine (Antivert) 25 MG tablet Take 1 tablet by mouth as needed. Active albuterol 108 (90 Base) MCG/ACT inhaler 05/05/2024 Act dudley hydroCHLOROthiaz belem 12.5 MG PO tablet Take 1 tablet by mouth daily. Active aspirin 81 MG EC tablet Take 1 tablet by mouth daily. Active Active Problems Problem Noted Date Diagnosed Date VBI (vertebrobasilar insufficiency) 11/23/2024 Encounters Date Type Department Care Team Description 11/24/2024 Telephone [facility] [place] [facility] [address] [place] [address] Katelin Gibbs 11/23/2024 1:00 PM EDT Office Visit [facility] [address] [facility] 5th Floor [address] [place] [address] Yifan Reveles MD VBI (vertebrobasilar insufficiency) (Primary Dx) 11/23/2024 Travel 11/17/2024 Telephone [facility] [place] [facility] [address] [place] [address] Katelin Gibbs 11/03/2024 Telephone [facility] [address] 5[address] Floor [address] [place] [address] [facility] Clinical Concern/Question 09/28/2024 Orders Only External Location [address] [place] [address] Provider, External 09/24/2024 Orders Only External Location [address] [place] [address] Provider, External 09/24/2024 Orders Only External Location [address] [place] [address] Provider, External from Last 3 Months Family History Medical History Relation Name Comments Cancer Neg Hx Heart attack Neg Hx Social History Tobacco Use Types Packs/Day Years [...] Mass Index 36.98 11/23/2024 12:53 PM EDT Plan of Treatment Upcoming Encounters Date Type Department Care Team (Late st Contact Info) Description 01/04/2025 2:00 PM EDT Appointment [facility] [address] [facility] 5th Floor [address] [place] [address] 01/04/2025 2:40 PM EDT Office Visit [facility] [address] [facility] 5th Floor [address] [place] [address] Yifan Reveles MD [address] [facility] [address] [place] [address] Health Maintenance Due Date Last Done Comments [facility]-Bone Density Scan 1945 [facility]-Depression Screening 1945 [facility]-Hepatitis C Screening 1945 [facility]-Medicare Annual Wellness (AWV) 1945 [facility]-/Child/Adol SDOH Screenings 1945 [facility]- SDOH Screenings 11/08/1965 [facility]-Adult SDOH Screenings 11/08/1965 [facility]-Pneumococcal Vaccine: 50 + Years (1 of 1 - PCV) 11/08/1997 [facility]-Zoster Vaccines (3 of 3) 02/04/2024, 06/05/2023 [id number] Vaccine (4 - 2024- season) 2024 12/28/2020, 05/25/2020, 04/27/2020 [facility]-Influenza Vaccine (#1) 2024 02/26/2023 [facility]-DTaP,Tdap,and Td Vaccine s (2 - Td or Tdap) 05/15/2034 05/15/2024 [facility]-RSV Vaccine: 60+ Years o r Completed 05/15/2024 [facility]-Obesity Intervention Completed 11/23/2024 HPV Vaccines Aged Out No longer eligi ble based on patient's age to complete this topic [facility]-HIB Vaccines Aged Out No longer e ligible based on patient's age to complete this topic [facility]-Hepatitis A Vaccines Aged Out No longer eligible based on patient's age to complete this topic [facility]-IPV Vaccines Aged Out No longer e ligible based on patient's age to complete this topic [facility]-Rotavirus Vaccines Aged Out No lo nger eligible based on patient's age to complete this topic Procedures Procedure Name Priority Date/Time Associated Diagnosis Comments MR NEURO OUTSIDE IMAGES 09/28/2024 9:00 AM EDT MR NEURO OUTSIDE IMAGES 09/24/2024 12:27 PM EDT MR NEURO OUTSIDE IMAGES 09/24/2024 12:27 PM EDT from Last 3 Months Results * MR NEURO OUTSIDE IMAGES (09/28/2024 9:00 AM EDT) Only the most recent of3 resultswithin the time period is included. Anatomical Region Laterality Modality Magnetic Resonan ce 09/28/2024 9:00 AM EDT External Provider IMG MRI PROCEDURES Final Resul t from Last 3 Months Insurance MEDICARE [facility] Care Teams Pumping Station Engineer Relationship Specialty Start Date End Date Humberto Downs MD [address] [place] [address] PCP - General 07/29/20
--- OUTSIDE RECORDS SUMMARY | 2024-12-19 13:05 | XMS_ITS | Encounter Summary ---
Author Organization [employer] ([place], [place], [place], [place]) Address [address] [place] [address] Care Team Providers Care Boat Camp Operator Name Role Phone Unavailable Primary Care Provider Unavailabl e Encounter Details Date Type Department Care Team (Late st Contact Info) Description 05/15/2019 Transcribed Document [facility] [place] Family Medicine [address] [place] [address] ProviderLexi MD [address] [place] [address] Social History Tobacco Use Types [...] - Historical ProviderMD - 05/15/2019 3:50 PM DIRECTOR SPECIALTY Valuables and Belongings Entered On: 05/15/2019 15:55 [...]
--- OUTSIDE RECORDS SUMMARY | 2024-12-19 13:05 | XMS_ITS | Encounter Summary ---
Author Organization [employer] ([place], [place], [place], [place]) Address [address] [place] [address] Care Team Providers Care Ammonium Sulfate Operator Name Role Phone Unavailable Primary Care Provider Unavailabl e Encounter Details Date Type Department Care Team (Late st Contact Info) Description 05/15/2019 Transcribed Document [facility] [place] [address] [place] [address] ProviderLexi MD [address] [place] [address] Social History Tobacco Use Types [...] - Historical ProviderMD - 05/15/2019 11:06 AM BACK SHOE CUTTER Stroke/Warfarin Instructions Entered On: 05/15/2019 11:06 EST Performed On: 05/15/2019 11:06 EST by Rosie Warner RN Stroke/Warfarin Instructions Stroke/TIA Discharge Ins : N/A Warfarin Discharge Ins : N/A Rosie Warner RN - 05/15/2019 11:06 EST Electronically signed by Meghan Carney Conversion Optical Effects Camera Operator Cerner at 07/02/2022 5:14 PM CDT documented in this encounter Plan of Treatment Not on file documented as of this encounter Visit Diagnoses Not on filedocumented in this encounter
--- OUTSIDE RECORDS SUMMARY | 2024-12-19 13:05 | XMS_ITS | Encounter Summary ---
Author Organization [facility] Address [address] [id number] Care Team Providers Care Microsoft Office Instructor Name Role Phone Humberto Downs MD Primary Care Provider [phone] Encounter Details Date Type Department Care Team (Late st Contact Info) Description 11/24/2024 Telephone [facility] [place] [facility] [address] [place] [address] [place] [address] Social History Tobacco Use Types Packs/Day Years Used Date Smoking Tobacco: Former Cigarettes Passive Smoke Exposure: Past Smokeless Tobacco: Never Comments:Quit smoking 25+ ye ars AUDIT-C Answer Date Recorded Frequency of Alcohol [...] as of this encounter Miscellaneous Notes * Telephone Encounter - Diana Keller RN - 11/25/2024 2:42 PM EDT She called back and stated she is aware of her next follow ups with Dr Reveles and is looking forwardto them. She has no needs at this time. She did state she is looking for a new property inspector. Until that occurs, we will continue to send records to Zane Lowe. * Telephone Encounter - Katelin Gibbs - 11/24/2024 10:53 AM EDT Patient Name:Dominga Ardon : 1945 Date:11/24/2024 Affiliate Site: [facility] Referring Physician: Johnny Flores/ Seen: Vascular/Abdirizak Future scheduling/testing needs: f/u appt 01/04 This [facility] Nurse Liaison contacted Dominga Ardon following their appointment on 11/23/2024. Liaison contact information provided. Will follow up to ensure continuum of care. Katelin Gibbs [facility] Nurse Liaison [phone] documented in this encounter Plan of Treatment Upcoming Encounters Date Type Department Care Team (Late st Contact Info) Description 01/04/2025 2:00 PM EDT Appointment [facility] [address] [facility] 5th Floor [address] [place] [address] 01/04/2025 2:40 PM EDT Office Visit [facility] [address] [facility] 5th [address] [place] [address] Yifan Reveles MD [address] [facility] [address] [place] [address] documented as of this encounter Visit Diagnoses Not on filedocumented in this encounter Additional Health Concerns Assessment Noted Time A fall risk assessment has been complete d for the patient 11/23/2024 1:01 PM EDT A Body Mass Index follow-up plan has been documented for the patient 11/23/2024 1:44 PM EDT documented as of this encounter Care Teams Microsoft Office Instructor Relationship Specialty Start Date End Date Humberto Downs MD [facility] [place] [address] PCP - General 07/29/20 documented as of this encounter
--- OUTSIDE RECORDS SUMMARY | 2024-12-19 13:05 | XMS_ITS | Encounter Summary ---
Author Organization [employer] ([place], [place], [place], [place]) Address [address] [place] [address] Care Team Providers Care Securities Settlement Processor Name Role Phone Unavailable Primary Care Provider Unavailabl e Encounter Details Date Type Department Care Team (Late st Contact Info) Description 05/15/2019 Transcribed Document [facility] [place] [address] [place] [address] ProviderLexi MD [address] [place] [address] Social History Tobacco Use Types [...] - Historical ProviderMD - 05/15/2019 5:00 AM SUPERVISOR COMPUTER OPERATIONS Chart Check - Review Order Profile Entered On: 05/15/2019 5:23 EST Performed On: 05/15/2019 5:00 EST by BORIS OVALLE, Lighthouse Keeper-Nursing Chart Check Powerplans Initiated/Discontinued as Appropriate : Yes All Active Orders Reviewed : Yes BORIS OVALLE, Lighthouse Keeper-Nursing - 05/15/2019 5:23 EST documented in this encounter Plan of Treatment Not on file documented as of this encounter Visit Diagnoses Not on filedocumented in this encounter
--- OUTSIDE RECORDS SUMMARY | 2024-12-19 13:05 | XMS_ITS | Encounter Summary ---
Author Organization [employer] ([place], [place], [place], [place]) Address [address] [place] [address] Care Team Providers Care Metal Bed Assembler Name Role Phone Unavailable Primary Care Provider Unavailabl e Encounter Details Date Type Department Care Team (Late st Contact Info) Description 05/13/2019 Transcribed Document [facility] [place] Family Medicine [address] [place] [address] ProviderLexi MD [address] [place] [address] Social History Tobacco Use Types [...] - Historical ProviderMD - 05/13/2019 2:15 PM CLIENT SERVICE EXECUTIVE Spiritual Care Assessment Entered On: 05/13/2019 21:55 EST Performed On: 05/13/2019 14:15 EST by Jose Miguel Downey Chaplain-Non Cert General Information Referred by : Mechanical Manufacturing Engineer follow-up Ministry Provided to : Patient Uatsdin Preference : Mormonism Jose Miguel Downey Chaplain-Non Cert - 05/13/2019 21:54 EST Spiritual Assessment Spiritual Assessment Comment/Summary Points : Brief visit with patient as she was not feeling well at this time, no family present. Spirital Assessment Comment/Summary Report : SPIRITUAL ASSESSMENT COMMENT/SUMMARY No qualifying data available. Jose Miguel Downey Chaplain-Non Cert - 05/13/2019 21:54 EST Electronically signed by Angelika [facility] Conversion Airframe Technical Officer Cerner at 07/02/2022 4:53 PM CDT documented in this encounter Plan of Treatment Not on file documented as of this encounter Visit Diagnoses Not on filedocumented in this encounter
--- OUTSIDE RECORDS SUMMARY | 2024-12-19 13:05 | XMS_ITS | Encounter Summary ---
Author Organization [employer] ([place], [place], [place], [place]) Address [address] [place] [address] Care Team Providers Care Weed Controller Name Role Phone Unavailable Primary Care Provider Unavailabl e Encounter Details Date Type Department Care Team (Late st Contact Info) Description 05/13/2019 Transcribed Document [facility] [place] [address] [place] [address] ProviderLexi MD [address] [place] [address] Social History Tobacco Use Types [...] - Historical ProviderMD - 05/13/2019 5:00 AM PILLAR MAN Chart Check - Review Order Profile Entered On: 05/13/2019 4:27 EST Performed On: 05/13/2019 5:00 EST by BORIS OVALLE, Batch Records Clerk-Nursing Chart Check Powerplans Initiated/Discontinued as Appropriate : Yes All Active Orders Reviewed : Yes BORIS OVALLE, Batch Records Clerk-Nursing - 05/13/2019 4:27 EST Electronically signed by Angelika [facility] Conversion Pulping Machine Operator Cerner at 07/02/2022 4:58 PM CDT documented in this encounter Plan of Treatment Not on file documented as of this encounter Visit Diagnoses Not on filedocumented in this encounter
--- OUTSIDE RECORDS SUMMARY | 2024-12-19 13:05 | XMS_ITS | Encounter Summary ---
Author Organization [employer] ([place], [place], [place], [place]) Address [address] [place] [address] Care Team Providers Care Rivet Tosser Name Role Phone Unavailable Primary Care Provider Unavailabl e Encounter Details Date Type Department Care Team (Late st Contact Info) Description 05/13/2019 Transcribed Document [facility] [place] [address] [place] [address] ProviderLexi MD [address] [place] [address] Social History Tobacco Use Types [...] - Historical ProviderMD - 05/13/2019 1:00 AM BEAUTY THERAPIST Pain Assessment Entered On: 05/13/2019 4:26 EST Performed On: 05/13/2019 2:28 EST by BORIS OVALLE, Regulatory Intern-Nursing Intervention Information: acetaminophen Performed by BORIS OVALLE, Regulatory Intern-Nursing on 05/13/2019 01:28:00 EST acetaminophen,1000mg Oral Pain Assessment Pain Assessment : Follow-up assessment Pain Scale Goal : 4 Pain Scale Used : FACES Pain Intervention, Drug : Medicated Pain Improved by Intervention : Yes BORIS OVALLE, Regulatory Intern-Nursing - 05/13/2019 4:26 EST Pain Scale Intensity : 2 BORIS OVALLE, Regulatory Intern-Nursing - 05/13/2019 4:26 EST Image 4 - Images currently included in the form version of this document have not been included in the text rendition version of the form. Electronically signed by Meghan Carney Conversion Auxiliary Power Equipment Operator Cerner at 07/02/2022 5:11 PM CDT documented in this encounter Plan of Treatment Not on file documented as of this encounter Visit Diagnoses Not on filedocumented in this encounter
--- OUTSIDE RECORDS SUMMARY | 2024-12-19 13:05 | XMS_ITS | Encounter Summary ---
Author Organization [employer] ([place], [place], [place], [place]) Address [address] [place] [address] Care Team Providers Care Chemical Sprayer Name Role Phone Unavailable Primary Care Provider Unavailabl e Encounter Details Date Type Department Care Team (Late st Contact Info) Description 05/13/2019 Transcribed Document [facility] [place] Family Medicine [address] [place] [address] ProviderLexi MD [address] [place] [address] Social History Tobacco Use Types [...] - Historical ProviderMD - 05/13/2019 8:00 PM GAS TECHNICIAN Pain Assessment Entered On: 05/14/2019 1:34 EST Performed On: 05/13/2019 23:08 EST by BORIS OVALLE, Picking Supervisor-Nursing Intervention Information: traMADol Performed by BORIS OVALLE, Picking Supervisor-Nursing on 05/13/2019 22:08:00 EST traMADol,50mg Oral Pain Assessment Pain Assessment : Follow-up assessment Pain Scale Goal : 4 Pain Scale Used : FACES Pain Intervention, Drug : Medicated Pain Improved by Intervention : Yes BORIS OVALLE, Picking Supervisor-Nursing - 05/14/2019 1:34 EST Pain Scale Intensity : 2 BORIS OVALLE Picking Supervisor-Nursing - 05/14/2019 1:34 EST Image 4 - Images currently included in the form version of this document have not been included in the text rendition version of the form. documented in this encounter Plan of Treatment Not on file documented as of this encounter Visit Diagnoses Not on filedocumented in this encounter
--- OUTSIDE RECORDS SUMMARY | 2024-12-19 13:05 | XMS_ITS | Encounter Summary ---
Author Organization [employer] ([place], [place], [place], [place]) Address [address] [place] [address] Care Team Providers Care Trailers And Motor Homes Salesperson Name Role Phone Unavailable Primary Care Provider Unavailabl e Encounter Details Date Type Department Care Team (Late st Contact Info) Description 05/13/2019 Transcribed Document [facility] [place] Family Medicine [address] [place] [address] ProviderLexi MD [address] [place] [address] Social History Tobacco Use Types [...] - Historical ProviderMD - 05/13/2019 7:00 PM MODEL DRESSER Pain Assessment Entered On: 05/14/2019 1:34 EST Performed On: 05/13/2019 23:08 EST by BORIS OVALLE, Hand Sander-Nursing Intervention Information: acetaminophen Performed by BORIS OVALLE, Hand Sander-Nursing on 05/13/2019 22:08:00 EST acetaminophen,1000mg Oral Pain Assessment Pain Assessment : Follow-up assessment Pain Scale Goal : 4 Pain Scale Used : FACES Pain Intervention, Drug : Medicated Pain Improved by Intervention : Yes BORIS OVALLE, Hand Sander-Nursing - 05/14/2019 1:33 EST Pain Scale Intensity : 3 BORIS OVALLE Hand Sander-Nursing - 05/14/2019 1:33 EST Image 4 - Images currently included in the form version of this document have not been included in the text rendition version of the form. documented in this encounter Plan of Treatment Not on file documented as of this encounter Visit Diagnoses Not on filedocumented in this encounter
--- OUTSIDE RECORDS SUMMARY | 2024-12-19 13:05 | XMS_ITS | Encounter Summary ---
Author Organization [employer] ([place], [place], [place], [place]) Address [address] [place] [address] Care Team Providers Care Brewery Representative Name Role Phone Unavailable Primary Care Provider Unavailabl e Encounter Details Date Type Department Care Team (Late st Contact Info) Description 05/13/2019 Transcribed Document [facility] [place] Family Medicine [address] [place] [address] ProviderLexi MD [address] [place] [address] Social History Tobacco Use Types [...] - Historical ProviderMD - 05/13/2019 7:00 AM ARMATURE AND ROTOR WINDER Pain Assessment Entered On: 05/13/2019 7:52 EST Performed On: 05/13/2019 7:15 EST by Rach Red RN Intervention Information: acetaminophen Performed by BORIS OVALLE, Dental Insurance Coordinator-Nursing on 05/13/2019 06:15:00 EST acetaminophen,1000mg Oral Pain [...]
--- OUTSIDE RECORDS SUMMARY | 2024-12-19 13:05 | XMS_ITS | Encounter Summary ---
Author Organization [employer] ([place], [place], [place], [place]) Address [address] [place] [address] Care Team Providers Care Information Assoc Name Role Phone Unavailable Primary Care Provider Unavailabl e Encounter Details Date Type Department Care Team (Late st Contact Info) Description 05/15/2019 Transcribed Document [facility] [place] Family Medicine [address] [place] [address] ProviderLexi MD [address] [place] [address] Social History Tobacco Use Types [...] - Historical ProviderMD - 05/15/2019 2:00 AM COURSEWARE DEVELOPER Shipping Order Clerk Details Entered On: 05/15/2019 5:23 EST Performed On: 05/15/2019 2:00 EST by BORIS OVALLE, Efficiency Clerk-Nursing Order Details Transport Mode Order Detail : Wheelchair Isolation Precautions Order Detail : Standard Precautions Order Detail : N/A IV Order Detail : 1 Oxygen Order Detail : 1 Nurse Collect Order Detail : 0 Lift/Transfer : Minimal Central Line Order Detail : No Room Service : Appropriate Arterial Line : No BORIS OVALLE, Efficiency Clerk-Nursing - 05/15/2019 5:22 EST documented in this encounter Plan of Treatment Not on file documented as of this encounter Visit Diagnoses Not on filedocumented in this encounter
--- OUTSIDE RECORDS SUMMARY | 2024-12-19 13:05 | XMS_ITS | Encounter Summary ---
Author Organization [employer] ([place], [place], [place], [place]) Address [address] [place] [address] Care Team Providers Care Recruitment Manager Name Role Phone Unavailable Primary Care Provider Unavailabl e Encounter Details Date Type Department Care Team (Late st Contact Info) Description 05/15/2019 Transcribed Document [facility] [place] Family Medicine [address] [place] [address] ProviderLexi MD [address] [place] [address] Social History Tobacco Use Types [...] - Historical ProviderMD - 05/15/2019 8:00 AM SHOULDER SAWYER Pain Assessment Entered On: 05/15/2019 9:59 EST Performed On: 05/15/2019 7:30 EST by Rosie Warner RN Intervention Information: traMADol Performed by BORIS OVALLE, Rehabilitation Construction Specialist-Nursing on 05/15/2019 06:30:00 EST traMADol,50mg Oral Pain [...]
--- OUTSIDE RECORDS SUMMARY | 2024-12-19 13:05 | XMS_ITS | Encounter Summary ---
Author Organization [employer] ([place], [place], [place], [place]) Address [address] [place] [address] Care Team Providers Care Marketing Budget Analyst Name Role Phone Unavailable Primary Care Provider Unavailabl e Encounter Details Date Type Department Care Team (Late st Contact Info) Description 05/13/2019 Transcribed Document [facility] [place] Family Medicine [address] [place] [address] ProviderLexi MD [address] [place] [address] Social History Tobacco Use Types [...] - Historical ProviderMD - 05/13/2019 12:01 PM HOME OFFICE CLAIMS EXAMINER Final Discharge Planning Entered On: 05/13/2019 12:01 EST Performed On: 05/13/2019 12:01 EST by SANDRA DEL ANGEL Care Management-Digital Producer Final Discharge Planning Discharge Arrangements : Patient [...] with Medicare Certification-03 SANDRA DEL ANGEL, Care Management-Digital Producer - 05/13/2019 12:01 EST Final Narrative Note Final Narrative Note : anticipate d/c to [facility] on Saturday by family SANDRA DEL ANGEL Care Management-Digital Producer - 05/13/2019 12:01 EST documented in this encounter Plan of Treatment Not on file documented as of this encounter Visit Diagnoses Not on filedocumented in this encounter
--- OUTSIDE RECORDS SUMMARY | 2024-12-19 13:05 | XMS_ITS | Encounter Summary ---
Author Organization [employer] ([place], [place], [place], [place]) Address [address] [place] [address] Care Team Providers Care Chainstitch Tunnel Elastic Operator Name Role Phone Unavailable Primary Care Provider Unavailabl e Encounter Details Date Type Department Care Team (Late st Contact Info) Description 05/15/2019 Transcribed Document [facility] Radiology [address] [place] [address] Alba River MD [address] [place] [address] Social History Tobacco Use Types Packs/Day [...] the patient will be going to the [facility] on 05/16/2019 for the same. The patient [...] case management totaled cumulatively to 35 minutes. /[id number] Alba River MD VLS/AQ / VLS / MODL /[id number] documented in this encounter Plan of Treatment Not on file documented as of this encounter Visit Diagnoses Not on filedocumented in this encounter
--- OUTSIDE RECORDS SUMMARY | 2024-12-19 13:05 | XMS_ITS | Encounter Summary ---
Author Organization [facility] [employer] [facility] ([place], [place], [place], [place]) Address [address] [place] [address] Care Team Providers Care Client Server Programmer Name Role Phone Unavailable Primary Care Provider Unavailabl e Encounter Details Date Type Department Care Team (Late st Contact Info) Description 05/13/2019 Transcribed Document [facility] [place] [address] [place] [address] ProviderLexi MD [address] [place] [address] Social History Tobacco Use Types [...] - Historical ProviderMD - 05/13/2019 2:00 PM BORING MACHINE OPERATOR PRODUCTION Pain Assessment Entered On: 05/13/2019 13:11 EST [...]
--- OUTSIDE RECORDS SUMMARY | 2024-12-19 13:05 | XMS_ITS | Encounter Summary ---
Author Organization [employer] ([place], [place], [place], [place]) Address [address] [place] [address] Care Team Providers Care Delivery Crew Member Name Role Phone Unavailable Primary Care Provider Unavailabl e Encounter Details Date Type Department Care Team (Late st Contact Info) Description 05/13/2019 Transcribed Document [facility] [place] Medicine [address] [place] [address] ProviderLexi MD [address] [place] [address] Social History Tobacco Use Types [...] - Historical ProviderMD - 05/13/2019 2:00 AM ACTUARIAL TRAINEE Stitch Burnisher Details Entered On: 05/13/2019 4:26 EST Performed On: 05/13/2019 2:00 EST by BORIS OVALLE, Motor Hotel Manager-Nursing Order Details Transport Mode Order Detail : Wheelchair Isolation Precautions Order Detail : Standard Precautions Order Detail : N/A IV Order Detail : 1 Oxygen Order Detail : 0 Nurse Collect Order Detail : 0 Lift/Transfer : Minimal Central Line Order Detail : No Room Service : Appropriate Arterial Line : No BORIS OVALLE, Motor Hotel Manager-Nursing - 05/13/2019 4:25 EST documented in this encounter Plan of Treatment Not on file documented as of this encounter Visit Diagnoses Not on filedocumented in this encounter
--- OUTSIDE RECORDS SUMMARY | 2024-12-19 13:05 | XMS_ITS | Encounter Summary ---
Author Organization [employer] ([place], [place], [place], [place]) Address [address] [place] [address] Care Team Providers Care Machine Hose Cutter Name Role Phone Unavailable Primary Care Provider Unavailabl e Encounter Details Date Type Department Care Team (Late st Contact Info) Description 05/15/2019 Transcribed Document [facility] [place] [address] [place] [address] ProviderLexi MD [address] [place] [address] Social History Tobacco Use Types [...] - Historical ProviderMD - 05/15/2019 8:00 PM POKER SUPERVISOR Pain Assessment Entered On: 05/15/2019 23:08 EST [...]
--- OUTSIDE RECORDS SUMMARY | 2024-12-19 13:05 | XMS_ITS | Encounter Summary ---
Author Organization [employer] ([place], [place], [place], [place]) Address [address] [place] [address] Care Team Providers Care Front End Software Engineer Name Role Phone Unavailable Primary Care Provider Unavailabl e Encounter Details Date Type Department Care Team (Late st Contact Info) Description 05/15/2019 Transcribed Document [facility] [place] Family Medicine [address] [place] [address] ProviderLexi MD [address] [place] [address] Social History Tobacco Use Types [...] - Historical ProviderMD - 05/15/2019 2:35 PM HEAD MIXER Final Discharge Planning Entered On: 05/15/2019 14:36 EST Performed On: 05/15/2019 14:35 EST by SANDRA DEL ANGEL, Care Management-Bottom Buffer Final Discharge Planning Discharge Arrangements : Patient Post-Acute Information Patient Name: TAY FOSNECA Gender: Female : [birth year] Age: 73 Years [...] Discharge Comment : Patient is accepted to [facility] on Saturday\her nephew will transport SANDRA DEL ANGEL, Care Management-Bottom Buffer - 05/15/2019 14:35 EST Final Narrative Note Historical Narrative Note : anticipate d/c to [facility] on Saturday by family SANDRA DEL ANGEL, Care Management-Bottom Buffer - 05/13/19 12:01:59 SANDRA DEL ANGEL Care Management-Bottom Buffer - 05/15/2019 14:35 EST documented in this encounter Plan of Treatment Not on file documented as of this encounter Visit Diagnoses Not on filedocumented in this encounter
--- OUTSIDE RECORDS SUMMARY | 2024-12-19 13:05 | XMS_ITS | Encounter Summary ---
Author Organization [employer] ([place], [place], [place], [place]) Address [address] [place] [address] Care Team Providers Care Sport Psychologist Name Role Phone Unavailable Primary Care Provider Unavailabl e Encounter Details Date Type Department Care Team (Late st Contact Info) Description 05/13/2019 Transcribed Document [facility] [place] [address] [place] [address] ProviderLexi MD [address] [place] [address] Social History Tobacco Use Types [...] - Historical ProviderMD - 05/13/2019 8:42 AM EMBALMER ASSISTANT Nutrition Assessment Entered On: 05/14/2019 13:18 EST [...] 05/14/2019 15:20 EST Electronically signed by Angelika [facility] Conversion Accounts Receivable Coordinator Cerner at 07/02/2022 4:55 PM CDT documented in this encounter Plan of Treatment Not on file documented as of this encounter Visit Diagnoses Not on filedocumented in this encounter
--- OUTSIDE RECORDS SUMMARY | 2024-12-19 13:05 | XMS_ITS | Encounter Summary ---
Author Organization [employer] ([place], [place], [place], [place]) Address [address] [place] [address] Care Team Providers Care Job Setter Honing Name Role Phone Unavailable Primary Care Provider Unavailabl e Encounter Details Date Type Department Care Team (Late st Contact Info) Description 05/13/2019 Transcribed Document [facility] [place] Family Medicine [address] [place] [address] ProviderLexi MD [address] [place] [address] Social History Tobacco Use Types [...] - Historical ProviderMD - 05/13/2019 7:01 AM CAKE TESTER Patient: TAY FONSECA Age: 73 Years Sex: [...] mg= 2 Tab, Oral, Q6HInt Vitamin D2, 26909 Units= 1 Cap, Oral, Saturday Zofran, 4 [...] 05/12/2019 08:44 EST Electronically signed by Angelika, [facility] Conversion Anesthesiologist Attending Cerner at 07/02/2022 4:53 PM CDT documented in this encounter Plan of Treatment Not on file documented as of this encounter Visit Diagnoses Not on filedocumented in this encounter
--- OUTSIDE RECORDS SUMMARY | 2024-12-19 13:06 | XMS_ITS | Encounter Summary ---
Author Organization [employer] ([place], [place], [place], [place]) Address [address] [place] [address] Care Team Providers Care Wet Room Supervisor Name Role Phone Unavailable Primary Care Provider Unavailabl e Encounter Details Date Type Department Care Team (Late st Contact Info) Description 05/12/2019 Transcribed Document [facility] [place] Family Medicine [address] [place] [address] ProviderLexi MD [address] [place] [address] Social History Tobacco Use Types [...] - Historical ProviderMD - 05/12/2019 1:00 PM CLARITY DEVELOPER Pain Assessment Entered On: 05/12/2019 16:50 EST [...]
--- OUTSIDE RECORDS SUMMARY | 2024-12-19 13:06 | XMS_ITS ---
Author Organization [facility] Care Team Providers Care Plate Inspector Name Role Phone Deepa Medellin (Nimisha) Unavailable Unavail able Humberto Camarena Unavailable Unavailable Allergies and adverse reactions Code CodeSystem Substance Reaction Severity StartDate Concern Status 113262886 SNOMED CT Penicillins Moderate 07/08/2023 acti ve Care Team Name Role Address Phone Organization Dates Humberto Camarena PCP [address] [place] [address], [place], [address], [place] (Office): [facility] 07/08/2023 - 07/17/2023 Deepa ([place]imisha) [place], [address], [place] (Office): : [facility] 07/08/2023 - 07/17/2023 Goals Section [...] completed tuberculin skin test; unspecified formulation lotNumber: [id number] expiry: 06/29/2026 Mfg: Sand[employer] pasteur Given 0.1 [...] Type Sig Text Start Date End Date Indication Acetaminoph en Tablet 500 MG active 0 RXNORM 2 table t Oral as needed PRN Give 2 table t by mouth every 6 hours as neede d for [place] gabby [place] ratur e 2.5 degre es above basel ine T give two table ts every 6 hours as neede d for temp 2.5 degre es above basel ine 2023 - Elevated Temperature 2.5 degrees above baseline T Pantoprazol e Sodium Oral Tablet Delayed Release 40 MG active 69236 0 RXNORM 1 table t Oral at bedtime Routin e Give 1 table t by mouth at bedti me for GERD 2023 - GERD Clopidogrel Bisulfate Oral Tablet 75 MG active 49265 2 RXNORM 1 table t Oral at bedtime Routin e Give 1 table t by mouth at bedti me relat ed to PRESE NCE OF CORON ALHAJI ANGIO PLAST Y IMPLA NT AND GRAFT (Z95. 5) 2023 - - Aspirin 81 Oral Tablet Delayed Release active 1 table t Oral one time a day Routin e Give 1 table t by mouth one time a day for heart healt h relat ed to ESSEN TIAL (PRIM ALHAJI) HYPER TENSI ON (I10) 2023 - heart health glipiZIDE Oral Tablet 10 MG active 20245 8 RXNORM 1 table t Oral every morning and at bedtime Routin e Give 1 table t by mouth every morni ng and at bedti me for Diabe jasvir relat ed to TYPE 2 DIABE JASVIR MELLI TUS WITHO UT COMPL ICATI ONS (E11. 9) 2023 - Diabetes Acetaminoph en Tablet 500 MG active 0 RXNORM 2 table t Oral as needed PRN Give 2 table t by mouth every 6 hours as neede d for Pain Give 2 table ts every 6 hours as neede d for pain 2023 - Pain Atorvastati n Calcium Oral Tablet 80 MG active 10604 5 RXNORM 1 table t Oral at bedtime Routin e Give 1 table t by mouth at bedti me for liam stero l relat ed to HYPER LIPID EMIA, UNSPE CIFIE D (E78. 5) 2023 - cholesterol Furosemide Oral Tablet 40 MG active 43581 8 RXNORM 1 table t Oral one time a day Routin e Give 1 table t by mouth one time a day for edema /CHF 2023 - edema/CHF Citalopram Hydrobromid e Oral Tablet 40 MG active 65919 4 RXNORM 1 table t Oral one time a day Routin e Give 1 table t by mouth one time a day for depre ssion 2023 - depression Ergocalcife rol Oral Capsule 1.25 MG (41739 UT) active 03203 10 RXNORM 1 capsu le Oral one time a day Routin e Give 1 capsu le by mouth one time a day every Sat for suppl ement 2023 - supplement Ondansetron HCl Oral Tablet 4 MG active 2 RXNORM 1 table t Oral as needed PRN Give 1 table t by mouth every 4 hours as neede d for Nause a/Vom iting 2023 - Nausea/Vomi ting Metoprolol Succinate ER Oral Tablet Extended Release 24 Hour 25 MG active 67096 7 RXNORM 1 table t Oral at bedtime Routin e Give 1 table t by mouth at bedti me for HTN relat ed to ESSEN TIAL (PRIM ALHAJI) HYPER TENSI ON (I10) Hold for SBP <90 or HR <50 2023 - HTN Antacid & [place] Oral Suspension 3151-4654-2 40 MG/30ML active 30 ml Oral as needed PRN Give 30 ml by mouth every 6 hours as neede d for indig estio n 2023 - indigestion Ozempic (0.25 or 0.5 MG/DOSE) Subcutaneou s Solution Pen-injecto r 2 MG/3ML active 78821 54 RXNORM 0.25 mg Subcut aneous one time a day Routin e Injec t 0.25 mg subcu taneo usly one time a day every e relat ed to TYPE 2 DIABE JASVIR MELLI TUS WITHO UT COMPL ICATI ONS (E11. 9) 2 more doses of the 0.25m g then incre ase to 0.5mg 2023 - - Mental Status Section Date Assessment Total Score Description 07/17/2023 CAM 0 No delirium ind icated 07/15/2023 BIMS 15 cognitively int act CAM 0 No delirium ind icated PHQ-9 00 Insurance Providers Plan of Treatment Section Interventions Intervention Code Code System Display Name Proposed D ate Problems Problem # Description Date of onset Resolved Date Code CodeSystem Concern Status 1 ACUTE RESPIRATORY FAILURE WITH HYPOXIA 07/08/[address] active 2 CHRONIC RESPIRATORY FAILURE, UNSPECIFIED WHETHER WITH HYPOXIA OR HYPERCAPNIA 07/08/[address] active 3 DEPRESSION, UNSPECIFIED 07/08/[address] active 4 ESSENTIAL (PRIMARY) HYPERTENSION 07/08/[address] active 5 FOLLICULAR LYMPHOMA, UNSPECIFIED, UNSPECIFIED SITE 07/08/[address] active 6 GASTRO-ESOPHAGEAL REFLUX DISEASE 07/08/[address] active 7 GASTRO-ESOPHAGEAL REFLUX DISEASE WITHOUT ESOPHAGITIS 07/08/2023 07/11/[address] complete d 8 HEART FAILURE, UNSPECIFIED 07/08/[address] active 9 HYPERLIPIDEMIA, UNSPECIFIED 07/08/[address] active 10 MORBID (SEVERE) OBESITY DUE TO EXCESS CALORIES 07/08/[address] active 11 MUSCLE WEAKNESS (GENERALIZED) 07/08/[address] active 12 NON-ST ELEVATION (NSTEMI) MYOCARDIAL INFARCTION 07/08/[address] active 13 OTHER FORMS OF DYSPNEA 07/08/[address] active 14 POSTPROCEDURAL (ACUTE) (CHRONIC) KIDNEY FAILURE 07/08/[address] active 15 PRESENCE OF CORONARY ANGIOPLASTY IMPLANT AND GRAFT 07/08/[address] active 16 TYPE 2 DIABETES MELLITUS WITHOUT COMPLICATIONS 07/08/[address] active 17 UNSTEADINESS ON FEET 07/08/[address] active Reason for Referral No Reasons for Referral Entered Social History Social History Observation Description Start Date End Date Code Code System Current Smoking Status Tobacco smoking consumption unknown 698754006 SNOMED CT Sex Assigned At Female 1945 32226-9 [facility] Gender Identity Sexual Orientation Vital Signs Code Code System Vitals Name Values and Units Timing Information 9279-1 [facility] Respiratory Rate Value=20.0 Units=/m in 07/17/2023 8462-4 [facility] Blood Pressure-Diastolic Value=76 Un its=mmHg 07/17/2023 8480-6 [facility] Blood Pressure-Systolic Zlgzn=169 Un its=mmHg 07/17/2023 8310-5 [facility] Body Temperature Value=97.2 Units= F 07/17/2023 8867-4 [facility] Heart rate Value=88.0 Units=/min 03/2023 38215-0 [facility] O2 % BldC Oximetry Value=90.0 Units= % 07/17/2023 2339-0 [facility] Blood Sugar Ofkai=559.0 Units=mg/dL 07/17/2023 66834-5 [facility] Pain Level Value=0.0 07/15/2023 8302-2 [facility] Height Value=62.0 Units=Inches 07/08/2023 54928-8 [facility] Weight Loutm=233.0 Units=Lbs
--- OUTSIDE RECORDS SUMMARY | 2024-12-19 13:06 | XMS_ITS | Encounter Summary ---
Author Organization [employer] ([place], [place], [place], [place]) Address [address] [place] [address] Care Team Providers Care Biztalk Consultant Name Role Phone Unavailable Primary Care Provider Unavailabl e Encounter Details Date Type Department Care Team (Late st Contact Info) Description 05/14/2019 Transcribed Document [facility] [place] Family Medicine [address] [place] [address] ProviderLexi MD [address] [place] [address] Social History Tobacco Use Types [...] - Historical ProviderMD - 05/14/2019 2:00 AM ONLINE MARKETING STRATEGIST Foil Spooler Details Entered On: 05/14/2019 1:34 EST Performed On: 05/14/2019 2:00 EST by BROIS OVALLE, Hydrometeorologist-Nursing Order Details Transport Mode Order Detail : Wheelchair Isolation Precautions Order Detail : Standard Precautions Order Detail : N/A IV Order Detail : 1 Oxygen Order Detail : 0 Nurse Collect Order Detail : 0 Lift/Transfer : Minimal Central Line Order Detail : No Room Service : Appropriate Arterial Line : No BORIS OVALLE, Hydrometeorologist-Nursing - 05/14/2019 1:34 EST documented in this encounter Plan of Treatment Not on file documented as of this encounter Visit Diagnoses Not on filedocumented in this encounter
--- OUTSIDE RECORDS SUMMARY | 2024-12-19 13:06 | XMS_ITS | Encounter Summary ---
Author Organization [employer] ([place], [place], [place], [place]) Address [address] [place] [address] Care Team Providers Care Nail Welter Name Role Phone Unavailable Primary Care Provider Unavailabl e Encounter Details Date Type Department Care Team (Late st Contact Info) Description 05/12/2019 Transcribed Document [facility] [place] Family Medicine [address] [place] [address] ProviderLexi MD [address] [place] [address] Social History Tobacco Use Types [...] - Historical ProviderMD - 05/12/2019 5:06 PM VAMPER Initial Discharge Planning Entered On: 05/12/2019 17:08 EST Performed On: 05/12/2019 17:06 EST by SANDRA DEL ANGEL Care Management-Fifth Grade Teacher Initial Assessment I Previously Documented Living Environment : No qualifying data available. Living Situation : Home Patient Lives With : Alone Emergency Contact #1 : Roxy Emergency Contact #1 Emergency Contact #1 Relationship : sister Emergency Contact #2 : . Emergency Contact #2 Phone Number : . Emergency Contact #2 Relationship : . SANDRA DEL ANGEL, Care Management-Fifth Grade Teacher - 05/12/2019 17:06 EST Narrative Note Narrative Note : Pt stated to Navigator, [facility] staff, and myself that she must go to rehab at [facility]. she lives alone, has stairs and no [...] review and advise. SANDRA DEL ANGEL, Care Management-Fifth Grade Teacher - 05/12/2019 17:06 EST Electronically signed by Angelika [facility] Conversion Compliance Advisor Cerner at 07/02/2022 5:10 PM CDT documented in this encounter Plan of Treatment Not on file documented as of this encounter Visit Diagnoses Not on filedocumented in this encounter
--- OUTSIDE RECORDS SUMMARY | 2024-12-19 13:06 | XMS_ITS | Encounter Summary ---
Author Organization [employer] ([place], [place], [place], [place]) Address [address] [place] [address] Care Team Providers Care Editing Intern Name Role Phone Unavailable Primary Care Provider Unavailabl e Encounter Details Date Type Department Care Team (Late st Contact Info) Description 05/12/2019 Transcribed Document [facility] [place] Family Medicine [address] [place] [address] ProviderLexi MD [address] [place] [address] Social History Tobacco Use [...] - Historical ProviderMD - 05/12/2019 2:00 PM SHIRT FOLDING MACHINE OPERATOR Pain Assessment Entered On: 05/12/2019 16:50 EST [...] form. Electronically signed by Meghan Carney Conversion Milk Receiver Tank Truck Cerjeanette at 07/02/2022 5:10 PM CDT documented in this encounter Plan of Treatment Not on file documented as of this encounter Visit Diagnoses Not on filedocumented in this encounter
--- OUTSIDE RECORDS SUMMARY | 2024-12-19 13:06 | XMS_ITS | Encounter Summary ---
Author Organization [employer] ([place], [place], [place], [place]) Address [address] [place] [address] Care Team Providers Care Pediatric Dental Assistant Name Role Phone Unavailable Primary Care Provider Unavailabl e Encounter Details Date Type Department Care Team (Late st Contact Info) Description 05/12/2019 Transcribed Document [facility] [place] Family Medicine [address] [place] [address] ProviderLexi MD [address] [place] [address] Social History Tobacco Use Types [...] - Historical ProviderMD - 05/12/2019 12:53 PM PHYSICAL EDUCATION TEACHER Evaluation, Occupational Therapy Entered On: 05/12/2019 14:47 [...] EST Treatment Time : 17 Minute(s) ESPERANZA RYENA OTR/Brittany - 05/12/2019 14:33 EST History and [...] 05/12/2019 14:33 EST Electronically signed by Interface, [facility] Conversion Electric Meter Reader Cerner at 07/02/2022 4:58 PM CDT documented in this encounter Plan of Treatment Not on file documented as of this encounter Visit Diagnoses Not on filedocumented in this encounter
--- OUTSIDE RECORDS SUMMARY | 2024-12-19 13:06 | XMS_ITS | Encounter Summary ---
Author Organization [employer] ([place], [place], [place], [place]) Address [address] [place] [address] Care Team Providers Care Mixer Wet Pour Name Role Phone Unavailable Primary Care Provider Unavailabl e Encounter Details Date Type Department Care Team (Late st Contact Info) Description 05/14/2019 Transcribed Document [facility] [place] [address] [place] [address] ProviderLexi MD [address] [place] [address] Social History Tobacco Use Types [...] - Historical ProviderMD - 05/14/2019 7:00 AM LOCAL SUPERINTENDENT Pain Assessment Entered On: 05/14/2019 11:33 EST Performed On: 05/14/2019 6:46 EST by Rach Red RN Intervention Information: acetaminophen Performed by BORIS OVALLE, Occ Therapist-Nursing on 05/14/2019 05:46:00 EST acetaminophen,1000mg Oral Pain [...]
--- OUTSIDE RECORDS SUMMARY | 2024-12-19 13:06 | XMS_ITS | Encounter Summary ---
Author Organization [employer] ([place], [place], [place], [place]) Address [address] [place] [address] Care Team Providers Care Student Finance Specialist Name Role Phone Unavailable Primary Care Provider Unavailabl e Encounter Details Date Type Department Care Team (Late st Contact Info) Description 05/12/2019 Transcribed Document [facility] [place] Medicine [address] [place] [address] ProviderLexi MD [address] [place] [address] Social History Tobacco Use Types [...] - Historical ProviderMD - 05/12/2019 2:48 PM GREEN FEED ATTENDANT Treatment Intervention, OT Entered On: 05/16/2019 14:44 [...] PIYUSHRAMON GARCIA OTR/Brittany - 05/16/2019 14:36 EST Wedger And Gluer Goals, OT Other LTG Grid Goal #1 [...]
--- OUTSIDE RECORDS SUMMARY | 2024-12-19 13:06 | XMS_ITS | Patient Health Record ---
Author Organization [employer] [facility] Address [address] [place] [address] Care Team Providers Care Belt Line Feeder Name Role Phone Migration, Provider Unavailable Unavailable [...] day Active Vitamin D (Ergocalciferol) 1.25 MG (89557 UT) Capsule 1 cap(s) orally once a week Active Social History Social History Social History Social Info Question Answer Notes Tobacco Use Current smoking status: Quit Number of years? >25 years Problems Problem Type SNOMED Code ICD Code Onset Dates Problem Status W/U Status Risk Notes Problem Essential hypertension (08992022) Essential (primary) hypertension (I10) Active confirmed Problem Acute renal failure syndrome (97829394) Acute kidney failure, unspecified (N17.9) Active confirmed Problem Total hip replacement Prosthesis (314605571) Presence of right artificial hip joint (Z96.641) Active confirmed Problem Edema (56679868) Edema, unspecified (R60.9) Active confirmed Problem Type II diabetes mellitus without complication (017306415) Type 2 diabetes mellitus without complications (E11.9) Active confirmed Encounters Encounter Location Date Provider Diagnosis [address] [place] [address] 08/22/2024 Provider Migration Plan Of Treatment No Information Insurance Providers Payer Name Payer Address Payer Phone Subscriber Number Group Number Insured Name Patient Relationship to Insured Coverage Start Date Coverage End Date [place] [address] [address] [id number] Dominga Ardon Self - patient is the insured [facility] [address] [place] [phone] [id number] Dominga Ardon Self - patient is the insured Medical (General) History Medical History History ICD Code Anxiety disorder sleep apnea, at risk for type 2 diabetes hypercholesterolemia hypertension Hypothyroidism Vitamin D deficiency Surgical History Surgery Date(Month/Year) Hysterectomy Gastric band ORIF, left ankle VD x1 Hospitalization History Reason Date(Month/Year) Right ATHA 04/2019
--- OUTSIDE RECORDS SUMMARY | 2024-12-19 13:06 | XMS_ITS | Encounter Summary ---
Author Organization [employer] ([place], [place], [place], [place]) Address [address] [place] [address] Care Team Providers Care Veneer Sander Name Role Phone Unavailable Primary Care Provider Unavailabl e Encounter Details Date Type Department Care Team (Late st Contact Info) Description 05/12/2019 Transcribed Document [facility] [place] [address] [place] [address] ProviderLexi MD [address] [place] [address] Social History Tobacco Use Types [...] - Lexi ProviderMD - 05/12/2019 10:29 AM GREASE MONKEY KAYE Main OR PACU Summary Primary Physician: ROSIO JUDD MD-ORPatria Finalized Date/Time: 05/12/19 13:13:58 Pt. Name: TAY FONSECA /Sex: 1945 Female Med Rec #: [id number] Physician: ROISO JUDD MD-ORT Financial #: [id number] Pt. Type: O Room/Bed: [facility]/2 Admit/Disch: 05/12/19 04:49:00 - Institution: [facility] OR PACU Case Times Entry 1 In PACU I 05/12/19 11:54:00 Ready for PACU 05/12/19 13:13:00 Discharge Discharge from PACU 05/12/19 13:13:00 I Last Modified By: JASPAL MARQUIS 05/12/19 13:13:46 SJRoni Main OR PACU Case Times Audit 05/12/19 13:13:46 [employer] Power Plant Superintendent: RAMON Modifier: TERESAMAM <+> 1 Ready for PACU Discharge <+> 1 Discharge from PACU I Finalized By: JASPAL MARQUIS Document Signatures Signed By: JASPAL MARQUIS 05/12/19 13:13 documented in this encounter Plan of Treatment Not on file documented as of this encounter Visit Diagnoses Not on filedocumented in this encounter
--- OUTSIDE RECORDS SUMMARY | 2024-12-19 13:06 | XMS_ITS | Encounter Summary ---
Author Organization [employer] ([place], [place], [place], [place]) Address [address] [place] [address] Care Team Providers Care Resident Program Specialist Name Role Phone Unavailable Primary Care Provider Unavailabl e Encounter Details Date Type Department Care Team (Late st Contact Info) Description 05/13/2019 Transcribed Document [facility] [address] [place] [address] Alba River MD [address] [place] [address] Social History Tobacco Use Types Packs/Day [...] reports no chest pain Tolerated her diet Pioneer a little weak this am No nausea [...] mg= 2 Tab, Oral, Q6HInt Vitamin D2, 55081 Units= 1 Cap, Oral, Saturday Zofran, 4 [...]
--- OUTSIDE RECORDS SUMMARY | 2024-12-19 13:06 | XMS_ITS | Encounter Summary ---
Author Organization [employer] ([place], [place], [place], [place]) Address [address] [place] [address] Care Team Providers Care Ultrasonographer Name Role Phone Unavailable Primary Care Provider Unavailabl e Encounter Details Date Type Department Care Team (Late st Contact Info) Description 05/12/2019 Transcribed Document [facility] [place] Medicine [address] [place] [address] ProviderLexi MD [address] [place] [address] Social History Tobacco Use Types [...] - Historical ProviderMD - 05/12/2019 12:53 PM INSIDE CHANNEL ACCOUNT MANAGER Evaluation, Physical Therapy Entered On: 05/12/2019 15:07 [...] WILIAN KENNEDY, PT - 05/12/2019 14:46 EST Fashion Styling Intern Goals Other PT LTG Grid Goal #1 [...] services for ATHA protocol + to maxamize safety/[place] with functional mobility prior to discharge. Plan [...] Needs, OT/PT Anticipated Discharge to : Unit, jail Anticipated Home Equipment : Walker Anticipated D/C Provider Notified : human services manager/case management Recommend Continued Therapy at Discharge [...]
--- OUTSIDE RECORDS SUMMARY | 2024-12-19 13:06 | XMS_ITS | Encounter Summary ---
Author Organization [employer] ([place], [place], [place], [place]) Address [address] [place] [address] Care Team Providers Care Machinery Repair Maintenance Supervisor Name Role Phone Unavailable Primary Care Provider Unavailabl e Encounter Details Date Type Department Care Team (Late st Contact Info) Description 05/12/2019 Transcribed Document [facility] [place] [address] [place] [address] ProviderLexi MD [address] [place] [address] Social History Tobacco Use Types [...] - Historical ProviderMD - 05/12/2019 7:00 PM ORCHID TRANSPLANTER Pain Assessment Entered On: 05/12/2019 23:17 EST Performed On: 05/12/2019 19:38 EST by BORIS OVALLE, Dressmaker Or Tailor-Nursing Intervention Information: acetaminophen Performed by Rach Red RN on 05/12/2019 18:38:00 EST acetaminophen,1000mg Oral Pain Assessment Pain Assessment : Follow-up assessment Pain Scale Goal : 4 Pain Scale Used : FACES Pain Intervention, Drug : Medicated Pain Improved by Intervention : Yes BORIS OVALLE, Dressmaker Or Tailor-Nursing - 05/12/2019 23:17 EST Pain Scale Intensity : 3 BORIS OVALLE, Dressmaker Or Tailor-Nursing - 05/12/2019 23:17 EST Image 4 - Images currently included in the form version of this document have not been included in the text rendition version of the form. documented in this encounter Plan of Treatment Not on file documented as of this encounter Visit Diagnoses Not on filedocumented in this encounter
--- OUTSIDE RECORDS SUMMARY | 2024-12-19 13:06 | XMS_ITS | Encounter Summary ---
Author Organization [employer] ([place], [place], [place], [place]) Address [address] [place] [address] Care Team Providers Care Tilesetter Name Role Phone Unavailable Primary Care Provider Unavailabl e Encounter Details Date Type Department Care Team (Late st Contact Info) Description 05/12/2019 Transcribed Document [facility] [place] Family Medicine [address] [place] [address] ProviderLexi MD [address] [place] [address] Social History Tobacco Use Types [...] - Lexi ProviderMD - 05/12/2019 10:29 AM MARQUETRY WORKER KAYE Main OR IntraOp Summary Primary Physician: ROSIO JUDD MD-ORT Finalized Date/Time: 05/15/19 10:45:27 Pt. Name: TAY FONSECA Brittany /Sex: 1945 Female Med Rec #: [id number] Physician: ROSIO JUDD MD-ORT Financial #: [id number] Pt. Type: I Room[facility]/ Admit/Disch: 05/13/19 09:44:00 - [place] [facility] [place] Attendance Entry 1 Entry 2 Entry 3 Case Attendee ROSIO JUDD RENFROE, REBECCA, Biery, Jordyn A RN -ORT ACID TANK LINER-ANS Role Performed Surgeon/Proceduralist, ACID TANK LINER/Nurse Rn Staffing Marketing Senior Recruiter, First First Time In 05/12/19 10:26:00 05/12/19 [...] 6 Case Attendee Juve Stubbs, Lelo Valenzuela, Childbirth And Infant Care Teacher Role Performed Scrub, First Scrub, Second Assistive [...] QIAN LÓPEZ, PAC OTHER, ATTENDEE Role Performed Communications Equipment Supervisor, First Physician assistant professor sculpture Vendor Time In 05/12/19 09:56:00 05/12/19 10:55:00 [...] Attendee DRAKE SALINAS SUSAN, RN Role Performed Behavioral Health Consultant Marketing Senior Recruiter, Second Time In 05/12/19 09:56:00 05/12/19 11:31:00 Time Out 05/12/19 11:27:00 05/12/19 11:51:00 Procedure Hip Total Anterior Hip Total Anterior Approach Approach Other Attendee Superficial Wound Closed By: Last Modified By: Gutierrez Pena RN Biery, Jordyn A, RN 05/12/19 11:51:47 05/12/19 11:51:47 [facility] IntraOp Case Attendance Audit 05/12/19 11:51:47 Automotive Accessory Installer: JUAN C Modifier: JUAN C 1 <*> [...] Procedure Hip Total Anterior Approach 05/12/19 11:45:43 Automotive Accessory Installer: JUAN C Modifier: JUAN C 3 <+> Time Out 3 <*> Procedure Hip Total Anterior Approach <+> 11 Case Attendee <+> 11 Role Performed <+> 11 Time In <+> 11 Procedure 05/12/19 11:27:30 Automotive Accessory Installer: JUAN C Modifier: JUAN C 1 <+> Time Out 1 <*> Procedure Hip Total Anterior Approach 5 <+> Time Out 5 <*> Procedure Hip Total Anterior Approach 9 <+> Time Out 9 <*> Procedure Hip Total Anterior Approach 10 <+> Time Out 10 <*> Procedure Hip Total Anterior Approach 05/12/19 11:15:53 Automotive Accessory Installer: JUAN C Modifier: JUAN C 6 <+> Time Out 6 <*> Procedure Hip Total Anterior Approach 7 <+> Time Out 7 <*> Procedure Hip Total Anterior Approach 05/12/19 10:55:31 Automotive Accessory Installer: JUAN C Modifier: JORDYNBLAND 1 <*> Time In 05/12/19 09:56:00 1 <*> Procedure Hip Total Anterior Approach 05/12/19 10:55:17 Automotive Accessory Installer: JUAN C Modifier: JORDYNBLAND 1 <+> Time [...] S[facility] IntraOp Case Times Audit 05/12/19 11:51:43 Automotive Accessory Installer: JUAN C Modifier: JORDYNBLAND <+> 1 Out Room Time <+> 1 Stop Time 05/12/19 11:45:46 Automotive Accessory Installer: [email or web address] Modifier: JORDYNBLAND <+> 1 Stop Time 05/12/19 10:29:48 Automotive Accessory Installer: JUAN C Modifier: JORDYNBLAND <+> 1 Start [...] [facility] IntraOp Counts Verification Audit 05/12/19 11:23:37 Automotive Accessory Installer: JUAN C Modifier: JUAN C <+> 2 [...] Cultures and Spec Summary Audit 05/12/19 09:48:34 Automotive Accessory Installer: JUAN C Modifier: JUAN C <+> 1 [...] RN 05/12/19 09:48:31 S[facility] IntraOp General Case Metal Drilling Machine Operator 1 Case Information OR OR [...] SZ STEM HIP ORIGIN SZ 13 Identification [id number] [id number] Description Implant Quantity 1 1 1 Implant Site RIGHT HIP RIGHT HIP RIGHT HIP Implant Identification Model Number Implant Identification Serial Number Implant [id number] Identification Lot Number Implant [employer] Paxeon Reconstruction Paxeon Reconstruction Identification [facility] Manager Resource Name: Implant [id number] Identification Catalog Number Implant Size Implant Has an Yes Yes Yes Expiration Date Implant Expiration 12/16/23 04/17/24 01/16/24 Date Wasted Radioactive Material Time Implanted Tissue Implant Continue for Tissue Implant Documentation Tissue Identification Number Graft Prep Per Manager Resource Instructions: Tissue Preparation Method: Reconstitution Solution: Reconstitution Solution Lot Number Reconstitution Solution Expiration Date: Thawing Solution Thawing Solution Lot Number Thawing Solution Expiration Date Preparation Materials, Other Preparation Materials, Other Lot Number Preparation Materials, Other Expiration Date Tissue Prepared/Processed By Manager Resource Paperwork Completed Implant Type Comment Last Modified By: Gutierrez Pena RN Biery, Jordyn A, RN Biery, Jordyn A, RN 05/12/19 10:55:07 05/12/19 10:55:07 05/12/19 11:19:51 Entry 4 Type Implant (Synthetic) Implant Log Implant Type Hardware Tissue Implant Type Implant HEAD FEM CERC SZ 36MM Identification [id number] Description Implant Quantity 1 Implant Site RIGHT HIP Implant Identification Model Number Implant Identification Serial Number Implant [id number] Identification Lot Number Implant Paxeon Reconstruction Identification Manager Resource Name: Implant [id number] Identification Catalog Number Implant Size Implant Has an Yes Expiration Date Implant Expiration 04/17/24 Date Wasted Radioactive Material Time Implanted Tissue Implant Continue for Tissue Implant Documentation Tissue Identification Number Graft Prep Per Manager Resource Instructions: Tissue Preparation Method: Reconstitution Solution: Reconstitution Solution Lot Number Reconstitution Solution Expiration Date: Thawing Solution Thawing Solution Lot Number Thawing Solution Expiration Date Preparation Materials, Other Preparation Materials, Other Lot Number Preparation Materials, Other Expiration Date Tissue Prepared/Processed By Manager Resource Paperwork Completed Implant Type Comment Last Modified By: Gutierrez Pena RN 05/12/19 11:19:51 S[facility] IntraOp Implant Log Audit 05/12/19 11:19:51 Automotive Accessory Installer: JUAN C Modifier: JUAN C <+> 3 Implant Identification Description <+> 3 Implant Identification Lot Number <+> 3 Implant Identification Manager Resource Name: <+> 3 Implant Expiration Date <+> 3 Implant Identification Catalog Number <+> 4 Implant Identification Description <+> 4 Implant Identification Lot Number <+> 4 Implant Identification Manager Resource Name: <+> 4 Implant Expiration Date <+> 4 Implant Identification Catalog Number 05/12/19 10:55:07 Automotive Accessory Installer: JUAN C Modifier: JUAN C <+> 1 Implant Identification Description <+> 1 Implant Identification Lot Number <+> 1 Implant Identification Manager Resource Name: <+> 1 Implant Expiration Date <+> 1 Implant Identification Catalog Number <+> 2 Implant Identification Description <+> 2 Implant Identification Lot Number <+> 2 Implant Identification Manager Resource Name: <+> 2 Implant Expiration Date <+> [...] vancomycin 1Gm vial - CLONIDINE-10ML 1000MG/10 ML [id number] Combo Med List 1 - Combo Med [...] 1% w/ epinephrine 1:100,000 20ml vial - [id number] Combo Med List 2 - Combo Med [...] S[facility] IntraOp Medication Admin Audit 05/12/19 09:48:55 Automotive Accessory Installer: JUAN C Modifier: JUAN C <+> 5 [...] LINN CSA, SAMUEL MONTERO, JEANETH-ANS, Lelo Siddiqi, Childbirth And Infant Care Teacher, Gutierrez Pena, RN, FRANKY URRUTIA Position Verified [...] Intra Op Sign Out Audit 05/12/19 11:51:55 Automotive Accessory Installer: JUAN C Modifier: JUAN C 1 <*> [...] SJE IntraOp Skin Prep Audit 05/12/19 10:23:06 Automotive Accessory Installer: JUNA C Modifier: JUAN C 1 <+> Methods [...] SJE IntraOp Surgical Procedures Audit 05/12/19 11:48:01 Automotive Accessory Installer: JUAN C Modifier: JUAN C <+> 1 Start <+> 1 Stop SJE IntraOp Temp Regulation Devices Entry 1 Temp Regulation Temperature Forced Air Warming Regulation Device device Temperature Upper body Regulation Site Temperature WINSTON, SAMUEL, Regulation Device ACID TANK LINER-ANS Applied by Last Modified By: Gutierrez Pena [...] SJE IntraOp Time Out Audit 05/12/19 10:55:43 Automotive Accessory Installer: JUAN C Modifier: JUAN C 1 <+> Time Out Pause Time 1 <*> Procedure to be Performed Hip Total Anterior Approach SJE IntraOp X-Ray and Images Entry 1 X-Ray/Imaging Type Fluoroscopy Fluoroscopy Type C-Arm Site RIGHT HIP Strip Winder Name DRAKE SALINAS Protective Devices Yes Used [...] NIRMAL Correct Billing Electronically signed by [facility] Conversion Oxygen Furnace Operator Cerner at 07/02/2022 5:08 PM CDT documented in this encounter Plan of Treatment Not on file documented as of this encounter Visit Diagnoses Not on filedocumented in this encounter
--- OUTSIDE RECORDS SUMMARY | 2024-12-19 13:06 | XMS_ITS | Encounter Summary ---
Author Organization [employer] ([place], [place], [place], [place]) Address [address] [place] [address] Care Team Providers Care Dispensing Audiologist Name Role Phone Unavailable Primary Care Provider Unavailabl e Encounter Details Date Type Department Care Team (Late st Contact Info) Description 05/13/2019 Transcribed Document [facility] [place] Family Medicine [address] [place] [address] ProviderLexi MD [address] [place] [address] Social History Tobacco Use Types [...] - Historical ProviderMD - 05/13/2019 10:06 AM BUILDING ENERGY RETROFIT TECHNICIAN On Going Discharge Planning Entered On: 05/13/2019 10:07 EST Performed On: 05/13/2019 10:06 EST by SANDRA DEL ANGEL, Care Management-Pulmonologist Care Management Progress Note Discharge Arrangements : Patient Post-Acute Information Patient Name: TAY FONSECA Gender: Female : [birth year] Age: 73 Years No Post-Acute Placement(s) Listed No Post-Acute Service(s) Listed No [place] Referral(s) Listed Discharge Options Discussed with Patient : Short term rehabilitation SANDRA DEL ANGEL, Care Management-Pulmonologist - 05/13/2019 10:06 EST Narrative Progress Note Narrative Progress Note : Pt has been changed to in pt status per IPAS. referrals sent out via [facility] per pts choice. SANDRA DEL ANGEL, Care Management-Pulmonologist - 05/13/2019 10:06 EST documented in this encounter Plan of Treatment Not on file documented as of this encounter Visit Diagnoses Not on filedocumented in this encounter
--- OUTSIDE RECORDS SUMMARY | 2024-12-19 13:06 | XMS_ITS | Encounter Summary ---
Author Organization [employer] ([place], [place], [place], [place]) Address [address] [place] [address] Care Team Providers Care Marketing Specialist Name Role Phone Unavailable Primary Care Provider Unavailabl e Encounter Details Date Type Department Care Team (Late st Contact Info) Description 05/14/2019 Transcribed Document [facility] [place] [address] [place] [address] ProviderLexi MD [address] [place] [address] Social History Tobacco Use Types [...] - Historical ProviderMD - 05/14/2019 7:00 PM NATURAL GAS TREATING UNIT OPERATOR Pain Assessment Entered On: 05/14/2019 22:54 EST Performed On: 05/14/2019 22:47 EST by BORIS OVALLE, Accounts Executive-Nursing Intervention Information: acetaminophen Performed by BORIS OVALLE, Accounts Executive-Nursing on 05/14/2019 21:47:00 EST acetaminophen,1000mg Oral Pain Assessment Pain Assessment : Follow-up assessment Pain Scale Goal : 4 Pain Scale Used : FACES Pain Intervention, Drug : Medicated Pain Improved by Intervention : Yes BORIS OVALLE, Accounts Executive-Nursing - 05/14/2019 22:54 EST Pain Scale Intensity : 3 BORIS OVALLE, Accounts Executive-Nursing - 05/14/2019 22:54 EST Image 4 - Images currently included in the form version of this document have not been included in the text rendition version of the form. documented in this encounter Plan of Treatment Not on file documented as of this encounter Visit Diagnoses Not on filedocumented in this encounter
--- OUTSIDE RECORDS SUMMARY | 2024-12-19 13:06 | XMS_ITS | Encounter Summary ---
Author Organization [employer] ([place], [place], [place], [place]) Address [address] [place] [address] Care Team Providers Care Chemical Pathologist Name Role Phone Unavailable Primary Care Provider Unavailabl e Encounter Details Date Type Department Care Team (Late st Contact Info) Description 05/12/2019 Transcribed Document [facility] [place] [address] [place] [address] ProviderLexi MD [address] [place] [address] Social History Tobacco Use Types [...] - Historical ProviderMD - 05/12/2019 8:17 AM HEARING AID FITTER Pre Procedure Adult Entered On: 05/12/2019 8:24 EST Performed On: 05/12/2019 8:17 EST by Cecile Wright RN Height and Weight, Clinical Dosing Height Source : Stated Height Entry Format : [place] Height, Feet : 5 ft(Converted to: 152 cm, 60 Inch) Height, Inches : 2 Inch(Converted to: 0 ft 2 Inch, 5.08 cm) Clinical Height : 157.48 cm Weight Source : Standing scale Weight Entry Format : [place] Clinical Dosing Weight : 107.27 kg Weight, Pounds : 236 lb Body Surface Area (BSA) : 2.05 m2 Body Mass Index : 43.3 kg/m2 (>HHI) [place] Body Weight : 50 kg Cecile Wright [...] Cecile Wright RN - 05/12/2019 8:17 EST [place] Suicide Severity Rating Scale (C-SSRS) CSSRS Past [...] Any Spiritual/Cultural Needs or Requests : Yes Jehovah'S Witness Preference : Pentecostalism Cecile Wright RN - 05/12/2019 8:17 EST [...] Obtained From : Patient Primary Language : Thai Preferred Communication Mode : Verbal Communication Barrier [...] Friction and Shear : No apparent problem Jari Score : 20 Cecile Wright RN - [...] Scale Risk Level : 25-45 Medium Risk [place] Fall Interventions : Adequate lighting, Assistive devices [...] the text rendition version of the form. [place] Coma Crystal Best Motor Response : Obey commands Crystal Best Verbal Response : Oriented Crystal Eye Opening Response : Spontaneous [place] Coma Score : 15 Cecile Wright RN - 05/12/2019 8:17 EST documented in this encounter Plan of Treatment Not on file documented as of this encounter Visit Diagnoses Not on filedocumented in this encounter
--- OUTSIDE RECORDS SUMMARY | 2024-12-19 13:06 | XMS_ITS | Encounter Summary ---
Author Organization [employer] ([place], [place], [place], [place]) Address [address] [place] [address] Care Team Providers Care Standard Machine Stitcher Name Role Phone Unavailable Primary Care Provider Unavailabl e Encounter Details Date Type Department Care Team (Late st Contact Info) Description 05/12/2019 Transcribed Document [facility] [place] [facility] [place] [address] ProviderLexi MD [address] [place] [address] Social History Tobacco Use Types [...] - Historical ProviderMD - 05/12/2019 7:21 AM LINE PATROLLER Patient: TAY FONSECA Age: 73 Years Sex: [...]
--- OUTSIDE RECORDS SUMMARY | 2024-12-19 13:06 | XMS_ITS | Encounter Summary ---
Author Organization [employer] ([place], [place], [place], [place]) Address [address] [place] [address] Care Team Providers Care Parts Control Clerk Name Role Phone Unavailable Primary Care Provider Unavailabl e Encounter Details Date Type Department Care Team (Late st Contact Info) Description 05/12/2019 Transcribed Document [facility] [place] [address] [place] [address] ProviderLexi MD [address] [place] [address] Social History Tobacco Use Types [...] - Historical ProviderMD - 05/12/2019 9:00 AM ENVIRONMENTAL PROTECTION FORESTER Event Note Entered On: 05/12/2019 9:12 EST [...]
--- OUTSIDE RECORDS SUMMARY | 2024-12-19 13:06 | XMS_ITS | Encounter Summary ---
Author Organization [employer] ([place], [place], [place], [place]) Address [address] [place] [address] Care Team Providers Care Hand Ii Thermal Cutter Name Role Phone Unavailable Primary Care Provider Unavailabl e Encounter Details Date Type Department Care Team (Late st Contact Info) Description 05/12/2019 Transcribed Document [facility] [place] [address] [place] [address] ProviderLexi MD [address] [place] [address] Social History Tobacco Use Types [...] - Historical ProviderMD - 05/12/2019 1:18 PM CROP NUTRITION SCIENTIST Admission History, Adult Entered On: 05/12/2019 13:21 [...] Obtained From : Patient Primary Language : Persian Preferred Communication Mode : Verbal Communication Barrier [...] Level : 46 or > High Risk Odin Fall Interventions : Assistive devices within reach, [...] Source : Stated Height Entry Format : [place] Height, Feet : 5 ft(Converted to: 152 cm, 60 Inch) Height, Inches : 2 Inch(Converted to: 0 ft 2 Inch, 5.08 cm) Clinical Height : 157.48 cm Weight Source : Standing scale Weight Entry Format : [place] Clinical Dosing Weight : 107.27 kg Weight, Pounds : 236 lb Body Surface Area (BSA) : 2.05 m2 Body Mass Index : 43.3 kg/m2 (>HHI) [place] Body Weight : 50 kg Rach Red [...] Rach Red RN - 05/12/2019 13:18 EST [place] Suicide Severity Rating Scale (C-SSRS) CSSRS Past [...] Any Spiritual/Cultural Needs or Requests : Yes Church Preference : Restorationism Rach Red RN - 05/12/2019 13:18 EST [...]
--- OUTSIDE RECORDS SUMMARY | 2024-12-19 13:06 | XMS_ITS | Encounter Summary ---
Author Organization [employer] ([place], [place], [place], [place]) Address [address] [place] [address] Care Team Providers Care Watch Crystal Molder Name Role Phone Unavailable Primary Care Provider Unavailabl e Encounter Details Date Type Department Care Team (Late st Contact Info) Description 05/12/[address] [facility] [place] Medicine [address] [place] [address] ProviderLexi MD [address] [place] [address] Social History Tobacco Use Types [...] - Historical ProviderMD - 05/12/2019 12:53 PM TRANSFORMER REPAIRER Pain Assessment Entered On: 05/13/2019 7:53 EST Performed On: 05/13/2019 7:15 EST by Rach Red RN Intervention Information: oxyCODONE Performed by BORIS OVALLE, Barrel Header-Nursing on 05/13/2019 06:15:00 EST oxyCODONE,10mg Oral,Pain (Severe [...]
--- OUTSIDE RECORDS SUMMARY | 2024-12-19 13:06 | XMS_ITS | Encounter Summary ---
Author Organization [employer] ([place], [place], [place], [place]) Address [address] [place] [address] Care Team Providers Care Director Of Veterans Affairs Name Role Phone Unavailable Primary Care Provider Unavailabl e Encounter Details Date Type Department Care Team (Late st Contact Info) Description 05/12/[address] [facility] [place] Medicine [address] [place] [address] ProviderLexi MD [address] [place] [address] Social History Tobacco Use Types [...] - Historical ProviderMD - 05/12/2019 8:30 AM KNOCKUP WORKER Event Note Entered On: 05/12/2019 9:11 EST [...] 05/12/2019 13:46 EST Electronically signed by Angelika [facility] Conversion Aircraft Delivery Checker Raghav at 07/02/2022 5:17 PM CDT documented in this encounter Plan of Treatment Not on file documented as of this encounter Visit Diagnoses Not on filedocumented in this encounter
--- OUTSIDE RECORDS SUMMARY | 2024-12-19 13:06 | XMS_ITS | Encounter Summary ---
Author Organization [employer] ([place], [place], [place], [place]) Address [address] [place] [address] Care Team Providers Care Lipstick Molder Name Role Phone Unavailable Primary Care Provider Unavailabl e Encounter Details Date Type Department Care Team (Late st Contact Info) Description 05/12/2019 Transcribed Document [facility] [place] Medicine [address] [place] [address] ProviderLexi MD [address] [place] [address] Social History Tobacco Use Types [...] - Historical ProviderMD - 05/12/2019 9:28 AM PINION POLISHER Event Note Entered On: 05/12/2019 9:29 EST [...]
--- OUTSIDE RECORDS SUMMARY | 2024-12-19 13:06 | XMS_ITS | Encounter Summary ---
Author Organization [employer] ([place], [place], [place], [place]) Address [address] [place] [address] Care Team Providers Care Chief Nuclear Medicine Technologist Name Role Phone Unavailable Primary Care Provider Unavailabl e Encounter Details Date Type Department Care Team (Late st Contact Info) Description 05/14/2019 Transcribed Document [facility] [address] [place] [address] Alba River MD [address] [place] [address] Social History Tobacco Use Types Packs/Day [...] Signature: __Tonja Canela RN CDS Phone #: _[phone] BMI < 18.5 Under weight ? 18.5 - 24.9 Healthy ? 25.0 - 29.9 Slightly Overweight ? 30.0 - 34.9 Obese/Class I ? 35.0 - 39.9 Severely Obese/Class II ? 40.0 and Over Morbidly Obese/Class III [facility]: [facility] This is a permanent part of the Medical Record Q9 2019 [facility] Updated: documented in this encounter Plan of Treatment Not on file documented as of this encounter Visit Diagnoses Not on filedocumented in this encounter
--- OUTSIDE RECORDS SUMMARY | 2024-12-19 13:06 | XMS_ITS | Encounter Summary ---
Author Organization [employer] ([place], [place], [place], [place]) Address [address] [place] [address] Care Team Providers Care Infrastructure Developer Name Role Phone Unavailable Primary Care Provider Unavailabl e Encounter Details Date Type Department Care Team (Late st Contact Info) Description 05/14/2019 Transcribed Document [facility] [place] Family Medicine [address] [place] [address] ProviderLexi MD [address] [place] [address] Social History Tobacco Use Types [...] - Historical ProviderMD - 05/14/2019 8:00 AM AGRICULTURAL AND FORESTRY SUPERVISOR Pain Assessment Entered On: 05/14/2019 11:33 EST Performed On: 05/14/2019 6:46 EST by Rach Red RN Intervention Information: traMADol Performed by BORIS OVALLE, Film Process Operator-Nursing on 05/14/2019 05:46:00 EST traMADol,50mg Oral [...]
--- OUTSIDE RECORDS SUMMARY | 2024-12-19 13:06 | XMS_ITS | Encounter Summary ---
Author Organization [employer] ([place], [place], [place], [place]) Address [address] [place] [address] Care Team Providers Care Plant Engineering Manager Name Role Phone Unavailable Primary Care Provider Unavailabl e Encounter Details Date Type Department Care Team (Late st Contact Info) Description 05/14/[address] [facility] Radiology [address] [place] [address] Fernando River MD [address] [place] [address] Social History Tobacco Use Types Packs/Day [...] and CM reported she is accepted [facility] on Discussed with patient and nursing and [...] mg= 2 Tab, Oral, Q6HInt Vitamin D2, 62726 Units= 1 Cap, Oral, Saturday Zofran, 4 [...]
--- OUTSIDE RECORDS SUMMARY | 2024-12-19 13:06 | XMS_ITS | Encounter Summary ---
Author Organization [employer] ([place], [place], [place], [place]) Address [address] [place] [address] Care Team Providers Care Aerial Crop Duster Name Role Phone Unavailable Primary Care Provider Unavailabl e Encounter Details Date Type Department Care Team (Late st Contact Info) Description 05/14/2019 Transcribed Document [facility] [place] [address] [place] [address] ProviderLexi MD [address] [place] [address] Social History Tobacco Use Types [...] - Historical ProviderMD - 05/14/2019 1:00 PM CISO Pain Assessment Entered On: 05/14/2019 14:16 EST [...]
--- OUTSIDE RECORDS SUMMARY | 2024-12-19 13:06 | XMS_ITS | Encounter Summary ---
Author Organization [employer] ([place], [place], [place], [place]) Address [address] [place] [address] Care Team Providers Care Biology Internship Name Role Phone Unavailable Primary Care Provider Unavailabl e Encounter Details Date Type Department Care Team (Late st Contact Info) Description 05/14/2019 Transcribed Document [facility] [place] Family Medicine [address] [place] [address] ProviderLexi MD [address] [place] [address] Social History Tobacco Use [...] - Historical ProviderMD - 05/14/2019 5:00 AM DIE CUTTER DIAMOND Chart Check - Review Order Profile Entered On: 05/14/2019 6:35 EST Performed On: 05/14/2019 5:00 EST by BORIS OVALLE, Usability Strategist-Nursing Chart Check Powerplans Initiated/Discontinued as Appropriate : Yes All Active Orders Reviewed : Yes BORIS OVALLE, Usability Strategist-Nursing - 05/14/2019 6:34 EST Electronically signed by Angelika [facility] Conversion Etl Database Developer Cerner at 07/02/2022 4:55 PM CDT documented in this encounter Plan of Treatment Not on file documented as of this encounter Visit Diagnoses Not on filedocumented in this encounter
--- OUTSIDE RECORDS SUMMARY | 2024-12-19 13:06 | XMS_ITS | Encounter Summary ---
Author Organization [employer] ([place], [place], [place], [place]) Address [address] [place] [address] Care Team Providers Care Demo Coordinator Name Role Phone Unavailable Primary Care Provider Unavailabl e Encounter Details Date Type Department Care Team (Late st Contact Info) Description 05/14/2019 Transcribed Document [facility] [place] [address] [place] [address] ProviderLexi MD [address] [place] [address] Social History Tobacco Use Types [...] - Historical ProviderMD - 05/14/2019 8:00 PM CONTINUOUS MINER Pain Assessment Entered On: 05/14/2019 22:55 EST Performed On: 05/14/2019 22:48 EST by BORIS OVALLE, Brush Filler Hand-Nursing Intervention Information: traMADol Performed by BORIS OVALLE, Brush Filler Hand-Nursing on 05/14/2019 21:48:00 EST traMADol,50mg Oral Pain Assessment Pain Assessment : Follow-up assessment Pain Scale Goal : 4 Pain Scale Used : FACES Pain Intervention, Drug : Medicated Pain Improved by Intervention : Yes BORIS OVALLE, Brush Filler Hand-Nursing - 05/14/2019 22:54 EST Pain Scale Intensity : 3 BORIS OVALLE Brush Filler Hand-Nursing - 05/14/2019 22:54 EST Image 4 - Images currently included in the form version of this document have not been included in the text rendition version of the form. documented in this encounter Plan of Treatment Not on file documented as of this encounter Visit Diagnoses Not on filedocumented in this encounter
--- OUTSIDE RECORDS SUMMARY | 2024-12-19 13:06 | XMS_ITS | Encounter Summary ---
Author Organization [employer] ([place], [place], [place], [place]) Address [address] [place] [address] Care Team Providers Care Bail Bondsman Name Role Phone Unavailable Primary Care Provider Unavailabl e Encounter Details Date Type Department Care Team (Late st Contact Info) Description 05/12/2019 Transcribed Document [facility] [place] [address] [place] [address] ProviderLexi MD [address] [place] [address] Social History Tobacco Use Types [...] - Historical ProviderMD - 05/12/2019 8:09 AM TOBACCO PRIMER MACHINE OPERATOR Pediatric Growth Entered On: 05/12/2019 8:09 EST Performed On: 05/12/2019 8:09 EST by Lianna Johnson Care [facility] Unit Coord Height and Weight, Clinical Dosing Height Source : Stated Height Entry Format : [place] Height, Feet : 5 ft(Converted to: 152 cm, 60 Inch) Height, Inches : 2 Inch(Converted to: 0 ft 2 Inch, 5.08 cm) Clinical Height : 157.48 cm Weight Source : Standing scale Weight Entry Format : [place] Clinical Dosing Weight : 107.27 kg Weight, Pounds : 236 lb Body Surface Area (BSA) : 2.05 m2 Body Mass Index : 43.3 kg/m2 (>HHI) [place] Body Weight : 50 kg [facility] - 05/12/2019 8:09 EST Electronically signed by Angelika [facility] Conversion Regional Wildlife Agent Cerner at 07/02/2022 5:01 PM CDT documented in this encounter Plan of Treatment Not on file documented as of this encounter Visit Diagnoses Not on filedocumented in this encounter
--- OUTSIDE RECORDS SUMMARY | 2024-12-19 13:06 | XMS_ITS | Encounter Summary ---
Author Organization [employer] ([place], [place], [place], [place]) Address [address] [place] [address] Care Team Providers Care Humanities Coordinator Name Role Phone Unavailable Primary Care Provider Unavailabl e Encounter Details Date Type Department Care Team (Late st Contact Info) Description 05/13/[address] [facility] [place] Family Medicine [address] [place] [address] ProviderLexi MD [address] [place] [address] Social History Tobacco Use Types [...] - Historical ProviderMD - 05/13/2019 8:00 AM SALES DEVELOPER Pain Assessment Entered On: 05/13/2019 9:18 EST [...] form. Electronically signed by Meghan Carney Conversion Speech Language Pathology Assistant Cerner at 07/02/2022 5:14 PM CDT documented in this encounter Plan of Treatment Not on file documented as of this encounter Visit Diagnoses Not on filedocumented in this encounter
--- OUTSIDE RECORDS SUMMARY | 2024-12-19 13:06 | XMS_ITS | Encounter Summary ---
Author Organization [employer] ([place], [place], [place], [place]) Address [address] [place] [address] Care Team Providers Care Food Science Professor Name Role Phone Unavailable Primary Care Provider Unavailabl e Encounter Details Date Type Department Care Team (Late st Contact Info) Description 05/14/2019 Transcribed Document [facility] [place] [address] [place] [address] ProviderLexi MD [address] [place] [address] Social History Tobacco Use Types [...] - Historical ProviderMD - 05/14/2019 2:00 PM CORPORATE TECHNICAL RECRUITER Pain Assessment Entered On: 05/14/2019 14:15 EST [...]
--- OUTSIDE RECORDS SUMMARY | 2024-12-19 13:07 | XMS_ITS | Encounter Summary ---
Author Organization [employer] ([place], [place], [place], [place]) Address [address] [place] [address] Care Team Providers Care Supervisor General Name Role Phone Unavailable Primary Care Provider Unavailabl e Encounter Details Date Type Department Care Team (Late st Contact Info) Description 05/25/2019 Transcribed Document [facility] Radiology [address] [place] [address] Alba River MD [address] [place] [address] Social History Tobacco Use Types Packs/Day [...] on 05/12/2019 Documented in Lab Results Review CDS/City Comptroller Signature: Donovan Nunes Phone #: [phone] Extn [id number] Date/Time: 05/25/2019 09:40 This is a permanent part of the Medical Record Q54 2019 [facility] Updated: documented in this encounter Plan of Treatment Not on file documented as of this encounter Visit Diagnoses Not on filedocumented in this encounter
--- OUTSIDE RECORDS SUMMARY | 2024-12-19 13:07 | XMS_ITS | Encounter Summary ---
Author Organization [employer] ([place], [place], [place], [place]) Address [address] [place] [address] Care Team Providers Care Clip Wrapper Name Role Phone Unavailable Primary Care Provider Unavailabl e Encounter Details Date Type Department Care Team (Late st Contact Info) Description 05/12/2019 Transcribed Document [facility] [place] [address] [place] [address] ProviderLexi MD [address] [place] [address] Social History Tobacco Use [...] - Lexi ProviderMD - 05/12/2019 10:29 AM SIZE MARKER KAYE Main OR PreOp Summary Primary Physician: ROSIO JUDD MD-ORT Finalized Date/Time: 05/19/19 10:37:26 Pt. Name: TAY FONSECA D.O.B./Sex: 1945 Female Med Rec #: [id number] Physician: ROSIO JUDD MD-ORT Financial #: [id number] Pt. Type: I Room/Bed: 412/1 Admit/Disch: 05/13/19 09:44:00 - 05/16/19 14:56:00 Institution: [facility] [place] PreOp Case Times Entry 1 In Preop 05/12/19 07:15:00 Ready for Holding n/a Room Patient Ready for 05/12/19 09:00:00 Surgery Patient Out of Preop 05/12/19 09:50:00 Patient Out of n/a Holding Room Last Modified By: ROS HUNTER 05/19/19 10:37:25 SJRoni PreOp Case Times Audit 05/19/19 10:37:25 Java J[employer] Technical Lead: [id number] Modifier: [id number] <+> 1 Patient Out of Preop Finalized By: ROS HUNTER Document Signatures Signed By: ROS HUNTER 05/19/19 10:37 Electronically signed by Angelika [facility] Conversion Human Resources Psychologist Cerner at 07/02/2022 4:50 PM CDT documented in this encounter Plan of Treatment Not on file documented as of this encounter Visit Diagnoses Not on filedocumented in this encounter
--- OUTSIDE RECORDS SUMMARY | 2024-12-19 13:07 | XMS_ITS | Encounter Summary ---
Author Organization [employer] ([place], [place], [place], [place]) Address [address] [place] [address] Care Team Providers Care Chief Compliance Officer Name Role Phone Unavailable Primary Care Provider Unavailabl e Encounter Details Date Type Department Care Team (Late st Contact Info) Description 05/16/2019 Transcribed Document [facility] [place] Family Medicine [address] [place] [address] ProviderLexi MD [address] [place] [address] Social History Tobacco Use Types [...] - Lexi ProviderMD - 05/16/2019 12:30 PM HAND CLOTH CUTTER [address] [address] TAY FONSECA Brittany :1945 Visit [...] by family, RN please call report to [phone] fax dc summary to [phone] Continue to use incentive spirometer for approx [...] 1 Tablet(s) Oral Every Day Pickup at [facility] [place] [address] 27 S levothyroxine 50 Microgram(s) Oral Every Day simvastatin 40 Milligram(s) Oral Every Evening Pharmacy Information [facility] [facility] [address]: [facility] [facility] [address] [place] [phone] Take your medications faithfully. Do NOT skip [...] Barley. Bulgur wheat. Millet. Bran muffins. Popcorn. [place] wafer crackers. Vegetables Sweet potatoes. Spinach. Kale. Artichokes. Cabbage. Broccoli. Green peas. Carrots. Squash. Fruits Berries. Pears. Apples. Oranges. Avocados. Prunes and raisins. Dried figs. Meats and Other Protein Sources [place], kidney, kaplan, and soy beans. Split peas. [...] harrison has 11 g of protein. ??? [place] seeds ??? 1 oz has 5.5 g [...] floor. ??? Place frequently used items in nhlw-in-prall places ??? Keep electrical cables out of [...] ??? Using the bathroom. ??? Using household rn emergency or toxic chemicals. ??? Touching or taking [...] Keep items that you use often in cvcx-xg-udbsl places. Lower the shelves around your home [...] the way. ??? Do not use floor greek or wax that makes floors slippery. If [...] Control and Prevention, [place]: https://cdc.gov ??? National [place] on Aging: https://qw6tfgn.bolivar.nih.gov Contact a doctor if: ??? You are [...] 12/29/2009 Document Revised: 10/17/2017 Document Reviewed: 10/17/2017 [employer] Interactive Patient Education ?? 2019 [employer]. High-Fiber Diet Fiber, also called dietary fiber, [...] Barley. Bulgur wheat. Millet. Bran muffins. Popcorn. [place] wafer crackers. Vegetables Sweet potatoes. Spinach. Kale. Artichokes. Cabbage. Broccoli. Green peas. Carrots. Squash. Fruits Berries. Pears. Apples. Oranges. Avocados. Prunes and raisins. Dried figs. Meats and Other Protein Sources [place], kidney, kaplan, and soy beans. Split peas. [...] 03/04/2006 Document Revised: 08/09/2016 Document Reviewed: 08/17/2014 [employer] Interactive Patient Education ?? 2018 Demohour. hydromorphone (oral) (MIRZA ibanez) Adriana Krishnamurthyalgo What [...] extended-release form of this medicine is for zrjcvy-oim-fkqkw treatment of moderate to severe pain, not [...] against the law. Stop taking all other zjfdjm-iod-kjpkc narcotic pain medications when you start taking [...] may report side effects to FDA at 3-536-VSQ-4940. What other drugs will affect hydromorphone? Opioid [...] drugs may affect hydromorphone, including prescription and nhcq-ioh-aiyeppy medicines, vitamins, and herbal products. Not all [...] to ensure that the information provided by [employer]. ('Multum') is accurate, up-to-date, and complete, but no guarantee is made to that effect. Drug information contained herein may be time sensitive. [employer] information has been compiled for use by healthcare practitioners and consumers in the [place] and therefore [employer] does not warrant that uses outside of the [place] are appropriate, unless specifically indicated otherwise. [employer] drug information does not endorse drugs, diagnose patients or recommend therapy. [employer] drug information is an informational resource designed [...] effective or appropriate for any given patient. [facility] does not assume any responsibility for any aspect of healthcare administered with the aid of information [facility] provides. The information contained herein is not intended to cover all possible uses, directions, precautions, warnings, drug interactions, allergic reactions, or adverse effects. If you have questions about the drugs you are taking, check with your doctor, nurse or pharmacist. Copyright 7880-0128 [employer]. Version: 9.03. Revision Date: 01/01/2019. gabapentin ([place] [...] are a day sleeper or work a night shift supervisor. Some people have thoughts about suicide while [...] may report side effects to FDA at 8-062-FMM-2916. What other drugs will affect gabapentin? Using gabapentin with other drugs that slow your breathing can cause dangerous side effects or . Ask your doctor before using opioid medication, a sleeping pill, cold or allergy medicine, a muscle relaxer, or medicine for anxiety or seizures. Other drugs may affect gabapentin, including prescription and picd-yon-ranwqtw medicines, vitamins, and herbal products. Tell your [...] to ensure that the information provided by [employer]. ('[employer]') is accurate, up-to-date, and complete, but no guarantee is made to that effect. Drug information contained herein may be time sensitive. [employer] information has been compiled for use by healthcare practitioners and consumers in the [place] and therefore [employer] does not warrant that uses outside of the [place] are appropriate, unless specifically indicated otherwise. [employer] drug information does not endorse drugs, diagnose patients or recommend therapy. [employer] drug information is an informational resource designed [...] effective or appropriate for any given patient. [employer] does not assume any responsibility for any aspect of healthcare administered with the aid of information [employer] provides. The information contained herein is not intended to cover all possible uses, directions, precautions, warnings, drug interactions, allergic reactions, or adverse effects. If you have questions about the drugs you are taking, check with your doctor, nurse or pharmacist. Copyright 0861-8849 [employer]. Version: 15.01. Revision Date: 03/12/2019. oxycodone (ox [...] The extended-release form of oxycodone is for vlkfym-rcc-jzdgb treatment of pain and should not be [...] against the law. Stop taking all other mbgjyq-ncy-rvbwg narcotic pain medicines when you start taking [...] may report side effects to FDA at 8-583-CRV-9213. What other drugs will affect oxycodone? You [...] may affect oxycodone. This includes prescription and pbmp-ipv-unsltrn medicines, vitamins, and herbal products. Not all [...] to ensure that the information provided by [employer]. ('[employer]') is accurate, up-to-date, and complete, but no guarantee is made to that effect. Drug information contained herein may be time sensitive. [employer] information has been compiled for use by healthcare practitioners and consumers in the [place] and therefore [employer] does not warrant that uses outside of the [place] are appropriate, unless specifically indicated otherwise. [employer] drug information does not endorse drugs, diagnose patients or recommend therapy. [employer] drug information is an informational resource designed [...] effective or appropriate for any given patient. [employer] does not assume any responsibility for any aspect of healthcare administered with the aid of information [employer] provides. The information contained herein is not intended to cover all possible uses, directions, precautions, warnings, drug interactions, allergic reactions, or adverse effects. If you have questions about the drugs you are taking, check with your doctor, nurse or pharmacist. Copyright 7960-8168 [employer]. Version: 13.03. Revision Date: 12/29/2018. tramadol (TRAM [...] extended-release form of this medicine is for duutff-gld-fzhqf treatment of pain. This form of tramadol [...] against the law. Stop taking all other pxiopb-dbb-phdwf narcotic pain medications when you start taking [...]
--- OUTSIDE RECORDS SUMMARY | 2024-12-19 13:07 | XMS_ITS | Encounter Summary ---
Author Organization [employer] ([place], [place], [place], [place]) Address [address] [place] [address] Care Team Providers Care Fisher Eel Spear Name Role Phone Unavailable Primary Care Provider Unavailtruman e Encounter Details Date Type Department Care Team (Late st Contact Info) Description 05/12/2019 Transcribed Document [facility] [place] Medicine [address] [place] [address] ProviderLexi MD [address] [place] [address] Social History Tobacco Use Types [...] - Historical ProviderMD - 05/12/2019 4:12 PM DOORPERSON OR LUGGAGE PORTER Patient: TAY FONSECA Age: 73 years Sex: [...] causes a rash Thanks, Link Duron, PharmD #[id number] Electronically signed by Angelika, [employer] Employee Development Director Cerner at 07/02/2022 4:49 PM CDT documented in this encounter Plan of Treatment Not on file documented as of this encounter Visit Diagnoses Not on filedocumented in this encounter
--- OUTSIDE RECORDS SUMMARY | 2024-12-19 13:07 | XMS_ITS | Encounter Summary ---
Author Organization Healthcare Address [address] [place] [address] Care Team Providers Care Office Cleaner Name Role Phone Humberto Downs MD Primary Care Provider [phone] Encounter Details Date Type Department Care Team (Latest Contact Info) Description 11/23/2024 Travel Social History Tobacco Use Types Packs/Day Years [...] on file documented as of this encounter Functional Status documented as of this encounter Plan of Treatment Upcoming Encounters Date Type Department Care Team (Late st Contact Info) Description 01/04/2025 2:00 PM EDT Appointment [facility] Lab [address] [place] [address] 01/04/2025 2:40 PM EDT Office Visit [facility] [address] [facility] 5th Floor [address] [place] [address] Yifan Reveles MD [address] [facility] [address] [place] [address] documented as of this encounter Visit Diagnoses Not on filedocumented in this encounter Additional Health Concerns Assessment Noted Time A fall risk assessment has been complete d for the patient 11/23/2024 1:01 PM EDT A Body Mass Index follow-up plan has been documented for the patient 11/23/2024 1:44 PM EDT documented as of this encounter Care Teams Office Cleaner Relationship Specialty Start Date End Date Humberto Downs MD [address] [facility] [place] [address] PCP - General 07/29/20 documented as of this encounter
--- OUTSIDE RECORDS SUMMARY | 2024-12-19 13:07 | XMS_ITS | Encounter Summary ---
Author Organization [employer] ([place], [place], [place], [place]) Address [address] [place] [address] Care Team Providers Care Entry Level Name Role Phone Unavailable Primary Care Provider Unavailabl e Encounter Details Date Type Department Care Team (Late st Contact Info) Description 05/16/2019 Transcribed Document [facility] [place] Family Medicine [address] [place] [address] ProviderLexi MD [address] [place] [address] Social History Tobacco Use Types [...] - Historical ProviderMD - 05/16/2019 4:00 PM LITHOGRAPHIC PLATEMAKER Discharge Summary, PT Entered On: 05/19/2019 11:00 EST Performed On: 05/16/2019 16:00 EST by WILIAN KENNEDY, PT Discharge Summary Reason for Discharge : Discharged from hospital Discharged to, Therapy : Unit, half-way Discharge Summary Comment, PT : 33 acute PT goals met. Modified Independent with transfers Ambulated 200' with RWx SBA/CGA 25# WB R LE PAULA HEP AROM x 20 reps D/C to [facility] for continued care and rehab on 05/16/19. WILIAN KENNEDY, PT - 05/19/2019 10:59 EST Terminal Operator Goals Other PT LTG Grid Goal #1 [...]
--- OUTSIDE RECORDS SUMMARY | 2024-12-19 13:07 | XMS_ITS | Encounter Summary ---
Author Organization [facility] Address [address] [place] [address] Care Team Providers Care Bus Company Manager Name Role Phone Humberto Downs MD Primary Care Provider [phone] Encounter Details Date Type Department Care Team (Late st Contact Info) Description 11/17/2024 Telephone [facility] [place] [address] [place] [address] [place] [address] Social History Tobacco Use Types Packs/Day Years Used Date Smoking Tobacco: Never Assessed Comments Unknown Sex and Gender Information Value Date Recorded Sex Assigned at Not on file Legal Sex Female 7:34 PM EDT Gender Identity Not on file Sexual Orientation Not on file documented as of this encounter Miscellaneous Notes * Telephone Encounter - Katelin Gibbs - 11/17/2024 2:48 PM EDT Patient Name: Dominga Ardon :1945 Date:11/17/2024 Affiliate site: [facility] Referring Physician: Johnny Lowe Education/ Information provided: This Nurse Liaison spoke with Dominga Ardon prior to an appointment on 11/23/2024. Provided patientwith liaison contact information and encouraged patient to call with any questions, concerns or assistance needs. Will follow up with patient after appointment. Katelin Gibbs [facility] Nurse Liaison [phone] documented in this encounter Plan of Treatment Upcoming Encounters Date Type Department Care Team (Late st Contact Info) Description 01/04/2025 2:00 PM EDT Appointment [facility] Lab [address] [facility] 5th Floor [address] [place] [address] 01/04/2025 2:40 PM EDT Office Visit [facility] [address] [place] [address] Yifan Reveles MD [address] [facility] [address] [place] [address] documented as of this encounter Visit Diagnoses Not on filedocumented in this encounter Care Teams Bus Company Manager Relationship Specialty Start Date End Date Humberto Downs MD [address] [place] [address] PCP - General 07/29/20 documented as of this encounter
--- OUTSIDE RECORDS SUMMARY | 2024-12-19 13:07 | XMS_ITS | Referral Summary ---
Author Organization [employer] ([place], [place], [place], [place]) Address [address] [place] [address] Care Team Providers Care Bone Crusher Name Role Phone Unavailable Primary Care Provider [...]
--- OUTSIDE RECORDS SUMMARY | 2024-12-19 13:07 | XMS_ITS | Encounter Summary ---
Author Organization [employer] ([place], [place], [place], [place]) Address [address] [place] [address] Care Team Providers Care Hazardous Waste Technician Name Role Phone Unavailable Primary Care Provider Unavailabl e Encounter Details Date Type Department Care Team (Late st Contact Info) Description 05/16/2019 Transcribed Document [facility] [place] Family Medicine [address] [place] [address] ProviderLexi MD [address] [place] [address] Social History Tobacco Use Types [...] - Lexi ProviderMD - 05/16/2019 9:53 AM TUBULAR SPLITTING MACHINE TENDER Discharge Instructions Entered On: 05/16/2019 9:55 EST [...] 05/16/2019 9:53 EST Electronically signed by Angelika [facility] Conversion Machine Tool Builder Cerner at 07/02/2022 4:51 PM CDT documented in this encounter Plan of Treatment Not on file documented as of this encounter Visit Diagnoses Not on filedocumented in this encounter
--- OUTSIDE RECORDS SUMMARY | 2024-12-19 13:07 | XMS_ITS | Encounter Summary ---
Author Organization Healthcare Address [address] [place] [address] Care Team Providers Care District Administrator Name Role Phone Humberto Downs MD Primary Care Provider [phone] Encounter Details Date Type Department Care Team (Late Contact Info) Description 09/17/2024 Orders Only External Location [address] [place] [address] Provider, External Social History Tobacco Use Types Packs/Day Years Used Date Smoking Tobacco: Never Assessed Comments Unknown Sex and Gender Information Value Date Recorded Sex Assigned at Not on file Legal Sex Female 7:34 PM EDT Gender Identity Not on file Sexual Orientation Not on file documented as of this encounter Plan of Treatment Upcoming Encounters Date Type Department Care Team (Late Contact Info) Description 01/04/2025 2:00 PM EDT Appointment [facility]ascular Lab [address] [place] [address] 01/04/2025 2:40 PM EDT Office Visit [facility] [address] [place] [address] Yifan Reveles MD [address] [facility] [address] [place] [address] documented as of this encounter Procedures Procedure Name Priority Date/Time Associated Diagnosis Comments CT NEURO OUTSIDE IMAGES 09/17/2024 2:21 PM EDT documented in this encounter Results * CT NEURO OUTSIDE IMAGES (09/17/2024 2:21 PM EDT) Anatomical Region Laterality Modality Computed Tomogra phy 09/17/2024 2:21 PM EDT us External Provider IMG CT PROCEDURES Final Result documented in this encounter Visit Diagnoses Not on filedocumented in this encounter Care Teams District Administrator Relationship Specialty Start Date End Date Humberto Downs MD [address] [facility] [place] [address] PCP - General 07/29/20 documented as of this encounter
--- OUTSIDE RECORDS SUMMARY | 2024-12-19 13:07 | XMS_ITS | Clinical Summary ---
Author Organization [employer] ([place], [place], [place], [place]) Address [address] [place] [address] Care Team Providers Care Air Transportation Provider Name Role Phone Unavailable Primary Care Provider [...]
--- OUTSIDE RECORDS SUMMARY | 2024-12-19 13:07 | XMS_ITS | Encounter Summary ---
Author Organization Healthcare Address [address] [place] [address] Care Team Providers Care Teaching Artist Name Role Phone Humberto Downs MD Primary Care Provider [phone] Encounter Details Date Type Department Care Team (Late Contact Info) Description 09/28/2024 Orders Only External Location [address] [place] [address] Provider, External Social History Tobacco Use Types [...] Description 01/04/2025 2:00 PM EDT Appointment [facility] [address] [place] [address] 01/04/2025 2:40 PM EDT Office Visit [facility] [address] [place] [address] Yifan Reveles MD [address] [facility] [address] [place] [address] documented as of this encounter Procedures Procedure Name Priority Date/Time Associated Diagnosis Comments MR NEURO OUTSIDE IMAGES 09/28/2024 9:00 AM EDT documented in this encounter Results * MR NEURO OUTSIDE IMAGES (09/28/2024 9:00 AM EDT) Anatomical Region Laterality Modality Magnetic Resonan ce 09/28/2024 9:00 AM EDT us External Provider IMG MRI PROCEDURES Final Resul t documented in this encounter Visit Diagnoses Not on filedocumented in this encounter Care Teams Teaching Artist Relationship Specialty Start Date End Date Humberto Downs MD [address] [facility] [place] [address] PCP - General 07/29/20 documented as of this encounter
--- OUTSIDE RECORDS SUMMARY | 2024-12-19 13:07 | XMS_ITS | Encounter Summary ---
Author Organization [employer] ([place], [place], [place], [place]) Address [address] [place] [address] Care Team Providers Care Storage Brine Worker Name Role Phone Unavailable Primary Care Provider Unavailabl e Encounter Details Date Type Department Care Team (Late st Contact Info) Description 05/04/2019 Transcribed Document [facility] [place] Family Medicine [address] [place] [address] ProviderLexi MD [address] [place] [address] Social History Tobacco Use Types [...] - Historical ProviderMD - 05/04/2019 1:01 PM MILLER DISTILLERY Orthopedic Nurse Navigator Entered On: 05/04/2019 13:02 EST Performed On: 05/04/2019 13:01 EST by Alyssia Ashraf Nurse camp program director Nurse Navigator Assessment Joint Navigator Assessment Note : Attempted to call patient, message left. Alyssia Ashraf Nurse RN - 05/04/2019 13:01 EST Electronically signed by Angelika [facility] Conversion Foam Dispenser Cerner at 07/02/2022 5:15 PM CDT documented in this encounter Plan of Treatment Not on file documented as of this encounter Visit Diagnoses Not on filedocumented in this encounter
--- OUTSIDE RECORDS SUMMARY | 2024-12-19 13:07 | XMS_ITS | Encounter Summary ---
Author Organization Healthcare Address [address] [place] [address] Care Team Providers Care Bar Machine Operator Multiple Spindle Name Role Phone Humberto Downs MD Primary Care Provider [phone] Encounter Details Date Type Department Care Team (Late Contact Info) Description 09/24/2024 Orders Only External Location [address] [place] [address] Provider, External Social History Tobacco Use Types [...] EDT Appointment [facility] [address] [place] [address] 01/04/2025 2:40 PM EDT Office Visit [facility] [address] [place] [address] Yifan Reveles MD [address] [facility] [address] [place] [address] documented as of this encounter Procedures Procedure Name Priority Date/Time Associated Diagnosis Comments MR NEURO OUTSIDE IMAGES 09/24/2024 12:27 PM EDT documented in this encounter Results * MR NEURO OUTSIDE IMAGES (09/24/2024 12:27 PM EDT) Anatomical Region Laterality Modality Magnetic Resonan ce 09/24/2024 12:2 7 PM EDT us External Provider IMG MRI PROCEDURES Final Resul t documented in this encounter Visit Diagnoses Not on filedocumented in this encounter Care Teams Bar Machine Operator Multiple Spindle Relationship Specialty Start Date End Date Humberto Downs MD [address] [place] [address] PCP - General 07/29/20 documented as of this encounter
--- OUTSIDE RECORDS SUMMARY | 2024-12-19 13:07 | XMS_ITS | Encounter Summary ---
Author Organization [employer] ([place], [place], [place], [place]) Address [address] [place] [address] Care Team Providers Care Forest Technician Name Role Phone Unavailable Primary Care Provider Unavailabl e Encounter Details Date Type Department Care Team (Late st Contact Info) Description 05/16/2019 Transcribed Document [facility] [place] Family Medicine [address] [place] [address] ProviderLexi MD [address] [place] [address] Social History Tobacco Use Types [...] - Lexi ProviderMD - 05/16/2019 3:17 PM STRADDLE BUG OPERATOR Patient: TAY FONSECA Age: 73 Years [...] in the past. No respiratory conditions including COPD/AINA/asthma. Hospital Course Patient underwent Right ATHA without [...]
--- OUTSIDE RECORDS SUMMARY | 2024-12-19 13:07 | XMS_ITS | Encounter Summary ---
Author Organization [employer] ([place], [place], [place], [place]) Address [address] [place] [address] Care Team Providers Care Well Shooter Name Role Phone Unavailable Primary Care Provider Unavailabl e Encounter Details Date Type Department Care Team (Late st Contact Info) Description 05/16/2019 Transcribed Document [facility] [place] Family Medicine [address] [place] [address] ProviderLexi MD [address] [place], [...] Lexi Walsh MD - 05/16/2019 12:29 PM VISCOSITY TESTER Patient Education Materials Follows: What to expect [...] Barley. Bulgur wheat. Millet. Bran muffins. Popcorn. [place] wafer crackers. Vegetables Sweet potatoes. Spinach. Kale. Artichokes. Cabbage. Broccoli. Green peas. Carrots. Squash. Fruits Berries. Pears. Apples. Oranges. Avocados. Prunes and raisins. Dried figs. Meats and Other Protein Sources [place], kidney, kaplan, and soy beans. Split peas. [...] harrison has 11 g of protein. ?? [place] seeds ??? 1 oz has 5.5 g [...] floor. ?? Place frequently used items in bqga-it-akddm places ?? Keep electrical cables out of [...] ?? Using the bathroom. ?? Using household principal security architect or toxic chemicals. ?? Touching or taking [...] Keep items that you use often in erzu-rf-zdowm places. Lower the shelves around your home [...] the way. ??? Do not use floor bahamian or wax that makes floors slippery. If [...] Control and Prevention, [place]: https://cdc.gov ??? National [place] on Aging: https://ow3hhxl.bolivar.nih.gov Contact a doctor if: ??? You are [...] 12/29/2009 Document Revised: 10/17/2017 Document Reviewed: 10/17/2017 [employer] Interactive Patient Education ? 2019 [employer] High-Fiber Diet Fiber, also called dietary [...] Barley. Bulgur wheat. Millet. Bran muffins. Popcorn. [place] wafer crackers. Vegetables Sweet potatoes. Spinach. Kale. Artichokes. Cabbage. Broccoli. Green peas. Carrots. Squash. Fruits Berries. Pears. Apples. Oranges. Avocados. Prunes and raisins. Dried figs. Meats and Other Protein Sources [place], kidney, kaplan, and soy beans. Split peas. [...] 08/17/2014 Elsevier Interactive Patient Education ? 2018 [employer] documented in this encounter Plan of Treatment Not on file documented as of this encounter Visit Diagnoses Not on filedocumented in this encounter
--- OUTSIDE RECORDS SUMMARY | 2024-12-19 13:07 | XMS_ITS | Encounter Summary ---
Author Organization [employer] ([place], [place], [place], [place]) Address [address] [place] [address] Care Team Providers Care Dividend Clerk Name Role Phone Unavailable Primary Care Provider Unavailabl e Encounter Details Date Type Department Care Team (Late st Contact Info) Description 05/12/2019 Transcribed Document [facility] [place] Family Medicine [address] [place] [address] ProviderLexi MD [address] [place], [...] Miscellaneous Notes * Cerner Conversion Note - Leix ProviderMD - 05/12/2019 3:07 PM DOG CATCHER Treatment Intervention, PT Entered On: 05/15/2019 10:15 EST Performed On: 05/15/2019 9:03 EST by MARIELOS HUFFMAN, RESIDENTIAL BUILDING INSPECTOR General Information, PT Visit Type, PT : [...] Fall prevention measures, high risk MARIELOS HUFFMAN, RESIDENTIAL BUILDING INSPECTOR - 05/15/2019 10:01 EST General Status Patient [...] Treatment Time : 23 Minute(s) MARIELOS HUFFMAN, RESIDENTIAL BUILDING INSPECTOR - 05/15/2019 10:01 EST Edu Topics Physical [...] MARIELOS HUFFMAN, TAMMY - 05/15/2019 10:01 EST Hospitality Manager Goals Other PT LTG Grid Goal #1 [...] rehab setting per CM today MARIELOS HUFFMAN, RESIDENTIAL BUILDING INSPECTOR - 05/15/2019 10:01 EST MARIELOS HUFFMAN, RESIDENTIAL BUILDING INSPECTOR - 05/15/2019 10:01 EST MARIELOS HUFFMAN, RESIDENTIAL BUILDING INSPECTOR - 05/15/2019 10:01 EST MARIELOS HUFFMAN, RESIDENTIAL BUILDING INSPECTOR - 05/15/2019 10:01 EST Treatment Note Subjective [...] for Treatment : Cont POC. MARIELOS HUFFMAN, RESIDENTIAL BUILDING INSPECTOR - 05/15/2019 10:01 EST Pain Assessment Pain Scaled Used : FACES Pain Score Pre-Intervention : 4 MARIELOS HUFFMAN, RESIDENTIAL BUILDING INSPECTOR - 05/15/2019 10:01 EST Image 1 - Images currently included in the form version of this document have not been included in the text rendition version of the form. [employer] PT Charges RESIDENTIAL BUILDING INSPECTOR PT Therap. Exercise 15 min-RESIDENTIAL BUILDING INSPECTOR : 2 MARIELOS HUFFMAN, RESIDENTIAL BUILDING INSPECTOR - 05/15/2019 10:01 EST documented in this encounter Plan of Treatment Not on file documented as of this encounter Visit Diagnoses Not on filedocumented in this encounter
--- OUTSIDE RECORDS SUMMARY | 2024-12-19 13:07 | XMS_ITS | Clinical Summary ---
Author Organization [facility] Address [address] [place] [address] Care Team Providers Care Laundry Machine Tender Name Role Phone Jesus Peñaloza MD Primary Care Provider Allergies Active Allergy Reactions Criticality Noted Date Comments Penicillins Rash Low 02/14/2016 Keflex OK Medications citalopram (CeleXA) 40 MG tablet Take 40 mg by mouth Daily. Active lisinopril-hydr ochlorothiazide (PRINZIDE,ZESTO RETIC) 20-12.5 MG per tablet Take 1 tablet by mouth Daily. Active glipiZIDE (GLUCOTROL) 10 MG 24 hr tablet Take 10 mg by mouth 2 (Two) Times a Day. Active simvastatin (ZOCOR) 40 MG tablet Take 40 mg by mouth Every Night. Active Ergocalciferol (VITAMIN D2 PO) Take 50,000 Units by mouth Every 7 (Seven) Days. mondays Active furosemide (LASIX) 40 MG tablet Take 40 mg by mouth Daily. Active hydrOXYzine (ATARAX) 25 MG tablet Every 6 (Six) Hours As Needed for Itching. 09/20/2021 Active spironolactone (ALDACTONE) 25 MG tablet Take 25 mg by mouth 2 (Two) Times a Day. Active traMADol (ULTRAM) 50 MG tablet Take 50 mg by mouth Every 6 (Six) Hours As Needed for Moderate Pain . Active meloxicam (MOBIC) 15 MG tablet Take 15 mg by mouth Daily. Active meclizine (ANTIVERT) 25 MG tablet Take 25 mg by mouth 3 (Three) Times a Day As Needed for Dizziness. 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 Stage IB grade 2 by final pathology Immunizations Immunization Administration Dates Next Due COVID-19 (MODERNA) 1st,2nd,3 rd Dose Monovalent 12/28/2020,05/25/2020,04/27/2020 Family History Medical History Relation Name Comments Aortic aneurysm Brother 1 Diabetes Brother 1 Parkinsonism Brother 1 Heart disease Brother 2 Parkinsonism Brother 2 Heart disease Father Prostate cancer Father Stroke Maternal Grandfather Colon cancer Maternal Grandmother Heart disease Mother Parkinsonism Mother Uterine cancer Mother ? Uterine cancer Sister Relation Name Status Comments Brother 1 Brother 2 Father Maternal Grandfather Maternal Grandmother Mother Sister Alive Social History Tobacco Use Types Packs/Day Years Used Date Smoking Tobacco: Former Cigarettes 1 20 1 980 - 1999 Smokeless Tobacco: Never Tobacco Cessation:Counseling Given: Not Answered Alcohol Use Standard Drinks/Week Comments Not Currently 0 (1 standard drink = 0.6 oz pur e alcohol) Abuse Screen Answer Date Recorded Unsafe at Home or Work/School Not on file Feels Threatened by Someone? Not on file Does Anyone Keep You from Co ntacting Others or Doint Things Outside the Home? Not on file 03/07/2023 Physical Sign of Abuse Present Not on file 1 05/08/2022 Housing Stability Answer Date Recorded Current Living Arrangements Not on file 11/2022 Potentially Unsafe Housing Conditions Not on herson e 12/24/2022 Family and Community Support Answer Estuardo e Recorded Help with Day-to-Day Activities Not on file 12/24/2022 Lonely or Isolated Not on file 12/24/2022 Employment Answer Date Recorded Do you want help finding or keeping work or a elizabeth b? Not on file 12/24/2022 Disabilities Answer Date Recorded Concentrating, Remembering, or Making Decisions Difficulty Not on file 12/24/2022 Doing Errands Independently Difficulty Not on fi le 12/24/2022 Education Answer Date Recorded Help with school or training? Not on file Preferred Language Not on file 03/07/2023 Comments No Sex and Gender Information Value Date Recorded Sex Assigned at Not on file Legal Sex Female 10:04 AM EDT Gender Identity Not on file Sexual Orientation Not on file Last Filed Vital Signs Vital Sign Reading Time Taken Comments Blood Pressure 124/70 03/06/2022 12:55 PM EST Pulse 118 03/06/2022 12:55 PM EST Temperature 36.2 C (97.1 F) 03/06/2022 12:55 PM EST Respiratory Rate 18 03/06/2022 12:55 PM EST Oxygen Saturation 93% 03/06/2022 12:55 PM EST Inhaled Oxygen Concentration - - Weight 107 kg (235 lb) 03/06/2022 12:55 PM EST Height 158.8 cm (5' 2.5 ) 03/06/2022 12:55 PM ES T Body Mass Index 42.3 03/06/2022 12:55 PM EST Plan of Treatment Health Maintenance Due Date Last Done Comments DXA SCAN 1945 LIPID PANEL 1945 DIABETIC EYE EXAM 11/08/1957 DIABETIC FOOT EXAM 11/08/1957 URINE MICROALBUMIN-CREATININ E RATIO (uACR) 11/08/1957 Pneumococcal Vaccine 50+ (1 of 2 - PCV) 11/08/1966 TDAP/TD VACCINES (1 - Tdap) 11/08/1966 ZOSTER VACCINE (1 of 2) 11/08/1997 MAMMOGRAM 12/16/2017 12/17/2015 ANNUAL WELLNESS VISIT 10/02/2018 HEPATITIS C SCREENING 10/02/2018 HEMOGLOBIN A1C 09/04/2022 03/06/2022, 10/02/2018 RSV Vaccine - Adults (1 - 1- dose 75+ series) 11/08/2022 INFLUENZA VACCINE 10/16/2024 02/26/2023 COVID-19 Vaccine ( season) 2024 12/28/2020, 05/25/2020, 04/27/2020 Procedures Procedure Name Priority Date/Time Associated Diagnosis Comments HEMOGLOBIN A1C Routine 03/06/2022 10:37 AM EST from Last 3 Months or Most Recently Relevant to Health Maintenance Results * (ABNORMAL) Hemoglobin A1c (03/06/2022 10:37 AM EST) Hemoglobin A1C 11.10(H) 4.80 - 5.60 % 03/06/2022 11:35 AM EST [facility] Blood Venipuncture / Unknown 03/06/2022 10:37 AM EST 03/06/2022 10:52 AM EST Narrative [facility] - 03/06/2022 11:35 AM EST Hemoglobin A1C Ranges: Increased Risk for Diabetes 5.7% to 6.4% Diabetes >= 6.5% Diabetic Goal < 7.0% Jimmy Wilson MD LAB BLOOD ORDERABLES Final Result [facility]
[address] [place] [address], from Last 3 Months or Most Recently Relevant to Health Maintenance Additional Health Concerns Infection Onset Date Last Indicated Bed Bugs Comment:On 03/06/22 patient presented to [facility] in [facility] c/o bed bugs and showed RN the bites on her legs. Surgery is scheduled for 03/15/22. [facility] will contact the surgeon and OR staff to advised. Hospital protocol is Contact precautions until 24 hours have passed with no bed bug sightings. Nupur Boyle MBA BSN RN [facility] Infection Control 12/03/06/2022 03/06/2022 Insurance MEDICARE A & B Member Subscriber Plan / Payer (Ef fective 2012-Present) Name:Dominga Ardon Member ID:[id number] Relation to Subscriber:Self Name:Dominga Ardon Subscriber ID:[id number] Payer ID:[id number] Group ID:Not on file Type:Not on file Address: [id number] [employer] Care Teams Laundry Machine Tender Relationship Specialty Start Date End Date Jesus Peñaloza MD [address] [place] [address] PCP - General Family Medicine 10/02/18
--- OUTSIDE RECORDS SUMMARY | 2024-12-19 13:07 | XMS_ITS | Encounter Summary ---
Author Organization [employer] ([place], [place], [place], [place]) Address [address] [place] [address] Care Team Providers Care Scanner Supervisor Name Role Phone Unavailable Primary Care Provider Unavailabl e Encounter Details Date Type Department Care Team (Late st Contact Info) Description 05/16/2019 Transcribed Document [facility] [place] [address] [place] [address] ProviderLexi MD [address] [place] [address] Social History Tobacco Use Types [...] - Historical ProviderMD - 05/16/2019 2:42 PM ORTHODONTIC TREATMENT COORDINATOR On Going Discharge Planning Entered On: 05/16/2019 14:47 EST Performed On: 05/16/2019 14:42 EST by KYRA ZEPEDA RN-Director DistributionClosing Specialist Progress Note Discharge Arrangements : Patient Post-Acute Information Patient Name: TAY FONSECA Gender: Female : [birth year] Age: 73 Years No Post-Acute Placement(s) Listed No Post-Acute Service(s) Listed No [place] Referral(s) Listed Discharge Options Discussed with Patient : Short term rehabilitation Patient Offered Choice/Affiliations Explained : Yes KYRA ZEPEDA RN-Director Distribution - 05/16/2019 14:42 EST Narrative Progress Note Narrative Progress Note : Dr River dictated a dc summary, however, is not showing up for anyone to see. Cm contacted Medical Records at [facility] in regards of having someone [...] go ahead and fax dc summary to [facility] and to have nurse call report........sds Historical Progress Note : Pt has been changed to in pt status per IPAS. referrals sent out via [employer] [facility] for [place] facilities per pts choice. SANDRA DEL ANGEL, Care Management-Dough Mixer Operator - 05/13/19 10:07:21 KYRA ZEPEDA, RN-Director Distribution - 05/16/2019 14:42 EST Electronically signed by [facility], [facility] Conversion Research Laboratory Manager Cerner at 07/02/2022 4:57 PM CDT documented in this encounter Plan of Treatment Not on file documented as of this encounter Visit Diagnoses Not on filedocumented in this encounter
--- OUTSIDE RECORDS SUMMARY | 2024-12-19 13:07 | XMS_ITS | Encounter Summary ---
Author Organization [employer] ([place], [place], [place], [place]) Address [address] [place] [address] Care Team Providers Care Pharmacy General Manager Name Role Phone Unavailable Primary Care Provider Unavailabl e Encounter Details Date Type Department Care Team (Late st Contact Info) Description 05/04/2019 Transcribed Document [facility] [place] Family Medicine [address] [place] [address] ProviderLexi MD [address] [place] [address] Social History Tobacco Use Types [...] - Historical ProviderMD - 05/04/2019 1:10 PM JEWELRY BENCH WORKER Orthopedic Nurse Navigator Entered On: 05/04/2019 13:11 EST Performed On: 05/04/2019 13:10 EST by Alyssia Ashraf Nurse medium cycle salesperson Nurse Navigator Assessment Does Patient Have a Walker? : No Joint Navigator Assessment Note : Patient returned call. Pt is wanting to go to the [place] bc she lives alone and has stairs. Pt indicates she was supposed to have surgery last September with another , and went to the class at that time. Alyssia Ashraf Nurse KOBE - 05/04/2019 13:10 EST Electronically signed by Angelika [facility] Conversion Helminthology Teacher Cerner at 07/02/2022 5:05 PM CDT documented in this encounter Plan of Treatment Not on file documented as of this encounter Visit Diagnoses Not on filedocumented in this encounter
--- OUTSIDE RECORDS SUMMARY | 2024-12-19 13:07 | XMS_ITS | Encounter Summary ---
Author Organization [employer] ([place], [place], [place], [place]) Address [address] [place] [address] Care Team Providers Care Meter Attendant Name Role Phone Unavailable Primary Care Provider Unavailabl e Encounter Details Date Type Department Care Team (Late st Contact Info) Description 05/12/2019 Transcribed Document [facility] [place] Family Medicine [address] [place] [address] ProviderLexi MD [address] [place] [address] Social History Tobacco Use Types [...] - Historical ProviderMD - 05/12/2019 12:53 PM MICROSOFT CRM DEVELOPER Pain Assessment Entered On: 05/15/2019 9:58 EST [...]
--- OUTSIDE RECORDS SUMMARY | 2024-12-19 13:07 | XMS_ITS | Encounter Summary ---
Author Organization [employer] ([place], [place], [place], [place]) Address [address] [place] [address] Care Team Providers Care Principal Process Engineer Name Role Phone Unavailable Primary Care Provider Unavailabl e Encounter Details Date Type Department Care Team (Late st Contact Info) Description 04/27/[address] [facility] [place] Family Medicine [address] [place] [address] ProviderLexi MD [address] [place] [address] Social History Tobacco Use Types [...] - Historical ProviderMD - 04/27/2019 6:29 AM CHAIR AND COUCH MAKER Orthopedic Nurse Navigator Entered On: 04/27/2019 6:31 [...] Pt is wanting to go to the [facility]. Alyssia Ashraf RN Surgical Services - 04/27/2019 6:29 EST Electronically signed by Angelika [facility] Conversion Senior Research Associate Cerner at 07/02/2022 5:05 PM CDT documented in this encounter Plan of Treatment Not on file documented as of this encounter Visit Diagnoses Not on filedocumented in this encounter
--- OUTSIDE RECORDS SUMMARY | 2024-12-19 13:07 | XMS_ITS | Encounter Summary ---
Author Organization [facility] Address [address] [id number] Care Team Providers Care Lumber Stacker Operator Name Role Phone Humberto Downs MD Primary Care Provider [phone] Reason for Visit * Reason Onset Date Comments HCN Clinical Concern/Question 11/03/2024 Encounter Details Date Type Department Care Team (Late st Contact Info) Description 11/03/2024 Telephone [facility] [address] [facility] [address] [place] [address] HCN Clinical Concern/Question Social History Tobacco Use Types Packs/Day Years Used Date Smoking Tobacco: Never Assessed Comments Unknown Sex and Gender Information Value Date Recorded Sex Assigned at Not on file Legal Sex Female 7:34 PM EDT Gender Identity Not on file Sexual Orientation Not on file documented as of this encounter Miscellaneous Notes * Telephone Encounter - Osiris Epstein - 11/11/2024 10:25 AM EDT Patient scheduled 11/23/2024 * Telephone Encounter - Aarti Whalen - 11/03/2024 9:44 AM EDT Clinical Concern/Question Reason for Call: Pt called to schedule appt. She missed a call from Osiris. Attempted Osiris' line once. Thanks! Best contact number: [phone] (home) Optimal time of day to reach caller: ANYTIME Additional comments/information from caller: None Note: Please do not reply to this message. Follow-up communication and further actions as a result of this message need to be communicated with the patient directly, if the patient is not active onMyChart. If the patient is active on MyChart, they will receive notification of the communication/outcome via MyChart. documented in this encounter Plan of Treatment Upcoming Encounters Date Type Department Care Team (Late st Contact Info) Description 01/04/2025 2:00 PM EDT Appointment [facility] [address] [place] [address] 01/04/2025 2:40 PM EDT Office Visit [facility] [address] [place] [address] Yifan Reveles MD [address] [facility] [address] [place] [id number] documented as of this encounter Visit Diagnoses Not on filedocumented in this encounter Care Teams Lumber Stacker Operator Relationship Specialty Start Date End Date Humberto Downs MD [address] [place] [address] PCP - General 07/29/20 documented as of this encounter
--- OUTSIDE RECORDS SUMMARY | 2024-12-19 13:07 | XMS_ITS | Encounter Summary ---
Author Organization [employer] ([place], [place], [place], [place]) Address [address] [place] [address] Care Team Providers Care Script Worker Name Role Phone Unavailable Primary Care Provider Unavailabl e Encounter Details Date Type Department Care Team (Late st Contact Info) Description 04/24/2019 Transcribed Document [facility] [place] [facility] [place] [address] ProviderLexi MD [address] [place] [address] Social History Tobacco Use Types [...] - Lexi ProviderMD - 04/24/2019 11:06 AM C APPLICATION DEVELOPER Patient: TAY FONSECA Age: 73 Years Sex: [...] only. Electronically signed by Meghan Carney Conversion Service Order Dispatcher Chief Cerner at 07/02/2022 5:13 PM CDT documented in this encounter Plan of Treatment Not on file documented as of this encounter Visit Diagnoses Not on filedocumented in this encounter
--- OUTSIDE RECORDS SUMMARY | 2024-12-19 13:07 | XMS_ITS | Encounter Summary ---
Author Organization [employer] ([place], [place], [place], [place]) Address [address] [place] [address] Care Team Providers Care Home Decorator Name Role Phone Unavailable Primary Care Provider Unavailabl e Encounter Details Date Type Department Care Team (Late st Contact Info) Description 05/16/2019 Transcribed Document [facility] [place] Family Medicine [address] [place] [address] ProviderLexi MD [address] [place] [address] Social History Tobacco Use Types [...] - Historical ProviderMD - 05/16/2019 4:01 PM PICKLING DRUM OPERATOR Nursing Discharge Summary Entered On: 05/16/2019 16:02 [...] 05/16/2019 16:01 EST Electronically signed by Angelika, [facility] Conversion Material Planner Cerner at 07/02/2022 4:53 PM CDT documented in this encounter Plan of Treatment Not on file documented as of this encounter Visit Diagnoses Not on filedocumented in this encounter
--- OUTSIDE RECORDS SUMMARY | 2024-12-19 13:07 | XMS_ITS | Encounter Summary ---
Author Organization [employer] ([place], [place], [place], [place]) Address [address] [place] [address] Care Team Providers Care Licensed Acupuncturist Name Role Phone Unavailable Primary Care Provider Unavailabl e Encounter Details Date Type Department Care Team (Late st Contact Info) Description 04/24/2019 Transcribed Document [facility] [place] Family Medicine [address] [place] [address] ProviderLexi MD [address] [place] [address] Social History Tobacco Use Types [...] - Historical ProviderMD - 04/24/2019 12:07 PM CALL OUT CLERK PAT Adult Entered On: 04/24/2019 12:15 [...] Source : Stated Height Entry Format : [place] Height, Feet : 5 ft(Converted to: 152 cm, 60 Inch) Height, Inches : 2 Inch(Converted to: 0 ft 2 Inch, 5.08 cm) Clinical Height : 157.48 cm Weight Source : Standing scale Weight Entry Format : [place] Clinical Dosing Weight : 109.09 kg Weight, Pounds : 240 lb Body Surface Area (BSA) : 2.07 m2 Body Mass Index : 44 kg/m2 (>HHI) [place] Body Weight : 50 kg Nuvia Moseley [...] Nuvia Moseley Rn - 04/24/2019 12:07 EST [place] Suicide Severity Rating Scale (C-SSRS) CSSRS Past [...] Obtained From : Patient Primary Language : Panamanian Preferred Communication Mode : Verbal Communication Barrier [...]
--- OUTSIDE RECORDS SUMMARY | 2024-12-19 13:07 | XMS_ITS | Encounter Summary ---
Author Organization Healthcare Address [address] [place] [address] Care Team Providers Care Bridge Carpenter Name Role Phone Humberto Downs MD Primary Care Provider Encounter Details Date Type Department Care Team (Late Contact Info) Description 05/05/2024 Orders Only External Location [address] [place] [address] Provider, External Social History Tobacco Use Types [...] Info) Description 01/04/2025 2:00 PM EDT Appointment [facility] Vascular Lab [address] [place] [address] 01/04/2025 2:40 PM EDT Office Visit [facility] [address] [place] [address] Yifan Reveles MD [address] [facility] [address] [place] [address] documented as of this encounter Procedures Procedure Name Priority Date/Time Associated Diagnosis Comments CT THORACIC OUTSIDE IMAGES 05/05/2024 11:13 AM EST documented in this encounter Results * CT THORACIC OUTSIDE IMAGES (05/05/2024 11:13 AM EST) Anatomical Region Laterality Modality Computed Tomogra phy 05/05/2024 11:1 3 AM EST us External Provider IMG CT PROCEDURES Final Result documented in this encounter Visit Diagnoses Not on filedocumented in this encounter Care Teams Bridge Carpenter Relationship Specialty Start Date End Date Humberto Downs MD [address] [facility] [place] [address] PCP - General 07/29/20 documented as of this encounter
--- OUTSIDE RECORDS SUMMARY | 2024-12-19 13:07 | XMS_ITS | Encounter Summary ---
Author Organization [employer] ([place], [place], [place], [place]) Address [address] [place] [address] Care Team Providers Care Salvager Name Role Phone Unavailable Primary Care Provider Unavailabl e Encounter Details Date Type Department Care Team (Late st Contact Info) Description 05/16/2019 Transcribed Document [facility] [place] [address] [place] [address] ProviderLexi MD [address] [place], [...] - Historical ProviderMD - 05/16/2019 2:00 AM TRANSIT SPECIALIST Plastic Surgery Technician Details Entered On: 05/16/2019 4:23 EST Performed [...] Lacey Fernandez RN - 05/16/2019 4:23 EST Electronically signed by Meghan Carney Conversion Firefighting Equipment Specialist Cerner at 07/02/2022 5:17 PM CDT documented in this encounter Plan of Treatment Not on file documented as of this encounter Visit Diagnoses Not on filedocumented in this encounter
--- OUTSIDE RECORDS SUMMARY | 2024-12-19 13:07 | XMS_ITS | Encounter Summary ---
Author Organization [employer] ([place], [place], [place], [place]) Address [address] [place] [address] Care Team Providers Care Backup Administrative Coordinator Name Role Phone Unavailable Primary Care Provider Unavailabl e Encounter Details Date Type Department Care Team (Late st Contact Info) Description 04/24/2019 Transcribed Document [facility] [place] Family Medicine [address] [place] [address] ProviderLexi MD [address] [place], [...] - Historical ProviderMD - 04/24/2019 12:47 PM PAYROLL SECRETARY Event Note Entered On: 04/24/2019 12:49 EST [...]
--- OUTSIDE RECORDS SUMMARY | 2024-12-19 13:07 | XMS_ITS | Encounter Summary ---
Author Organization [employer] ([place], [place], [place], [place]) Address [address] [place] [address] Care Team Providers Care Jumpbasting Facing Baster Name Role Phone Unavailable Primary Care Provider Unavailabl e Encounter Details Date Type Department Care Team (Late st Contact Info) Description 04/27/2019 Transcribed Document [facility] [place] Medicine [address] [place] [address] ProviderLexi MD [address] [place] [address] Social History Tobacco Use Types [...] - Lexi ProviderMD - 04/27/2019 6:29 AM EKG MONITOR Total Joints Assessment Entered On: 04/27/2019 6:30 EST Performed On: 04/27/2019 6:29 EST by Alyssia Ashraf RN [facility] Hip Survey 1. Going up or down stairs : Moderate 2. Walking on an uneven surface : Severe 3. Rising from sitting : Severe 4. Bending to floor/bulk picker an object : Severe 5. Lying [...]
--- OUTSIDE RECORDS SUMMARY | 2024-12-19 13:07 | XMS_ITS | Encounter Summary ---
Author Organization Healthcare Address [address] [place] [address] Care Team Providers Care Corporate Administrator Name Role Phone Humberto Downs MD Primary Care Provider [phone] Encounter Details Date Type Department Care Team (Late Contact Info) Description 09/24/2024 Orders Only External Location [address] [place] [address] Provider, External Social History Tobacco Use Types [...] Info) Description 01/04/2025 2:00 PM EDT Appointment [facility] Vascular Lab [address] [place] [address] 01/04/2025 2:40 PM EDT Office Visit [facility] [address] [place] [address] Yifan Reveles MD [address] [facility] [address] [place] [address] documented as of this encounter Procedures Procedure [...] on filedocumented in this encounter Care Teams Corporate Administrator Relationship Specialty Start Date End Date Humberto Downs MD [address] [place] [address] PCP - General 07/29/20 documented as of this encounter
--- OUTSIDE RECORDS SUMMARY | 2024-12-19 13:07 | XMS_ITS | Encounter Summary ---
Author Organization [employer] ([place], [place], [place], [place]) Address [address] [place] [address] Care Team Providers Care Full Fashioned Garment Knitter Name Role Phone Unavailable Primary Care Provider Unavailabl e Encounter Details Date Type Department Care Team (Late st Contact Info) Description 05/16/2019 Transcribed Document [facility] [place] [address] [place] [address] ProviderLexi MD [address] [place] [address] Social History Tobacco Use Types [...] - Historical ProviderMD - 05/16/2019 1:00 AM FURNITURE CRATER Pain Assessment Entered On: 05/16/2019 4:23 EST [...]
--- NOTE | 2024-12-19 13:21 | ED_ITS ---
<Statement entered by Bruno Edge DO - 12/20/24 07:20> I was consulted by the ANDRÉS, and we discussed the complexity of problems being addressed. I approved the treatment and management plan for this patient's care in the emergency department, thus performing a substantive portion of the medical decision making. Bruno Edge DO Discharge Plan Disposition Patient Disposition: Home, Self-Care Condition: Good Prescriptions Prescriptions: No Action clopidogrel 75 mg tablet 75 mg PO DAILY Qty: 90 3RF aspirin 81 mg tablet,delayed release (DR/EC) 81 mg PO DAILY Qty: 90 3RF atorvastatin 80 mg tablet 80 mg PO HS Qty: 90 3RF metoprolol succinate 25 mg tablet extended release 24 hr 25 mg PO DAILY Qty: 90 3RF meclizine [Dramamine (meclizine)] 25 mg tablet,chewable 25 mg PO DAILY PRN citalopram 40 mg tablet 40 mg PO DAILY Patient Comments: Pt believes that she is taking 10mg, will check bottle for future update. Ozempic 0.25 mg or 0.5 mg (2 mg/3 mL) pen injector 0.5 mg SQ WEEKLY ondansetron 4 mg tablet,disintegrating 4 mg PO Q8H PRN (Reason: nausea and vomiting) 4 Days Qty: 12 0RF furosemide [Lasix] 40 mg tablet 40 mg PO DAILY 7 Days Qty: 7 0RF Referrals Follow up/Referrals: Travis Alvarez DO [Staff Physician, Orthopedics] - See instructions Humberto Camarena MD [Primary Care Provider, Internal Medicine] - See instructions Activity Restrictions/Add. Instructions Additional Instructions/Restrictions: Please return to the emergency department with any worsening signs or symptoms. Please wear your boot and weight-bear as tolerated until your follow-up with the orthopedic doctor. I recommend anti-inflammatory medications ice rest and Tylenol as needed for symptomatic relief. We will call you with any results of your x-ray that may be actionable. No news is good news. Clinical Impressions Clinical Impression: Crushing injury of great toe of left foot Instructions Patient Instructions: DI for Crush Injury Print Language Print Language: Mongolian Discharge ED Provider: Bruno Edge General Adult [facility] General Chief complaint: Extremity Injury, Lower Stated complaint: AO 12/19/24 @ 1200/ Zero turn landed on foot Time Seen by Provider: 12/19/24 12:54 Mode of Arrival: Ambulatory Source of Information: Patient Description of Symptoms (Recalled from ER Triage Doc. by RN): PATIENT PRESENTS TO ED FOR LEFT FOOT INJURY AFTER RAISSA PINK WHEEL RAN IT OVER. PT REPORTS SHE IS UNABLE TO BEAR WEIGHT ON THE FOOT, BRUISING STARTING TO FORM ON MIDFOOT. REPORTS PAIN IN LEFT GREAT TOE WELL. NO OPEN WOUND. History of Present Illness HPI narrative: 79-year-old female presents to the emergency department with some left foot/first digit toe pain after her foot was crushed , by 0 turn lawnmower . Patient states her foot was crushed for around 30 seconds to a minute, she had been able to ambulate on the affected extremity, endorses pain in the dorsum of the foot and first great toe, she denies any fever chills chest pain shortness of breath, nausea vomiting constipation diarrhea, no urinary symptoms, no back pain, no other upper or lower extremity injury, patient is a former smoker, she ambulates with a walker at baseline, denies any alcohol or drug use, other past medical history is consistent with HFrEF, cardiomyopathy, hypertension, prior TIA/CVA, obesity, T2DM. Initial triage vitals are notable for an episode of tachycardia, this is improved upon my examination the patient the bedside. Patient has not yet take any medication for this pain. Please note that above description of symptoms, in this electronic medical record under categorization of recalled from ER triage doctor by RN are reflective of an initial nursing assessment, however, is not reflective of my full history and physical exam that was personally taken and clarified. Consequentially, this preceding description of symptoms, which may include the patient's categorized chief complaint in the EMR, do not reflect my personal clinical impression, and the ultimate description of history of present illness and patient stated complaints should be deferred to this section of the note. Unless stated otherwise or congruent with this section of the note, additional signs, symptoms, or incongruence should be interpreted as inaccurate with my clinical impression. Onset (ago): hour(s) Related Data Home Medications ?Medication ?Instructions ?Recorded ?Confirmed citalopram 40 mg tablet 40 mg PO DAILY 07/04/2309/16 semaglutide 0.25 mg or 0.5 mg (2 0.5 mg SQ WEEKLY 06/1610/13/24 mg/3 mL) subcutaneous pen injector (Ozempic) meclizine 25 mg chewable tablet 25 mg PO DAILY PRN 10/13/24 (Dramamine (meclizine)) Previous Rx's ?Medication ?Instructions ?Recorded aspirin 81 mg tablet,delayed 81 mg PO DAILY #90 tabs 0 08/20/23 release atorvastatin 80 mg tablet 80 mg PO HS #90 tabs 4 clopidogrel 75 mg tablet 75 mg PO DAILY #90 tabs 0607/09 metoprolol succinate 25 mg 25 mg PO DAILY #90 tabs 07/09 tablet,extended release 24 hr furosemide 40 mg tablet (Lasix) 40 mg PO DAILY 7 days #7 tabs 05/05/24 ondansetron 4 mg disintegrating 4 mg PO Q8H PRN nausea and 05/05/24 tablet vomiting 4 days #12 tabs Allergies Allergy/AdvReac Type Severity Reaction Status Date / Time Penicillins Allergy Intermediate I-ITCHING, Verified 10/13/24 15:02 RASH, SWELLING PFSH PFSH Disclaimer: The information contained in this section may have been updated after the patient was seen, as this information can be updated by other users. Medical History Unsteady gait It does appear that she has some central abnormality. Vestibular rehabilitation may be indicated but I would like neurology evaluation first. Right radial nerve palsy Heart attack 07/03/2023 HFrEF (heart failure with reduced ejection fraction) Sinus headache History of gastroesophageal reflux (GERD) Pneumonia Bronchitis Arthritis Diabetes mellitus, type 2 History of cataract Hyperlipidemia Hypertension Edema Surgical History Hx of cataract surgery H/O left wrist surgery History of ankle surgery left ankle x2 Hx of laparoscopic gastric banding H/O total hysterectomy History of hip replacement right hip Family History Brother Hx of heart surgery Abdominal aortic aneurysm Heart disease Mother Dementia Heart disease Father Prostate cancer Sister Breast cancer Cancer Family/Other Heart attack Social History (Updated 12/19/24 @ 13:04 by Catherine Coppola RN) Smoking Status: Former smoker years smoked: 15 smoking status stop date: 1999 second hand exposure: No alcohol intake: never current occupational status: retired Travel in the last 8 weeks?: None household members: spouse housing: house caffeine: Yes Have you lived/traveled outside US in past 30 days?: No Contact w/someone who lives/traveled outside US past 30 days?: No Exposure to someone with infectious disease in past 14 days?: No Do you have a fever (greater than 100.4 F or 38 C)?: No Have you tested positive for COVID-19?: No Exposed to someone with COVID-19 in past 14 days?: No Do you have a sore throat?: No Do you have a cough?: No Do you have any weakness?: No Do you have any diarrhea?: No Are you experiencing any unusual bleeding?: No Do you have any muscle aches/pain?: No Do you have any abdominal pain?: No Are you experiencing loss of taste or smell?: No Other Medical History Have you received the Flu Vaccine for this season: No Have you received the Pneumonia Vaccine: No ROS Obtained: Yes All systems reviewed & no additional complaints except as documented Physical Exam General General appearance: alert and in no apparent distress Head Head exam: atraumatic and normocephalic Eye Eye exam: Present PERRL and EOMI ENT ENT exam: Present mucous membranes moist Neck Neck exam: Present normal inspection Chest Chest inspection: Present normal inspection and symmetric chest wall rise Respiratory Respiratory exam: Present normal lung sounds bilaterally; Absent respiratory distress Cardiovascular Cardiovascular exam: Present regular rate and normal rhythm Abdominal Exam Abdominal exam: Present soft; Absent tenderness, guarding or rebound Extremities Exam Extremities exam: Present normal inspection, tenderness and other (There is some bruising to the first digit of the great toe, some pain palpation over the first metatarsal and dorsum of the midfoot, patient with extremity command, otherwise neurovascular intact, no obvious open fracture or deformity.); Absent full ROM Neurological Exam Neurological exam: Present alert and oriented X3 Psychiatric Psychiatric exam: Present normal affect Skin Skin exam: Present warm and dry Medical Decision Making Medical Records Medical records reviewed: Yes I reviewed the patient's medical records. Screening: Per USPSTF and CDC recommendations, given the prevalence of disease in our region, it is our hospital?s policy to screen for HIV and viral Hepatitis for all patients aged 18 and over and those with ongoing risk factors. Lele Inquiry Pt receiving controlled substance: No Lele was queried for this patient: No Vital Signs: 12/19/24 13:00 10/04/25 13:00 12/19/24 13:01 Temperature 98.8 F 98.8 F Temperature Source Oral Pulse Rate 101 H 101 H Pulse Rate [Right] 101 H Respiratory Rate 18 18 Blood Pressure 139/66 139/66 Blood Pressure [Right Arm] 139/66 Blood Pressure Mean [Right Arm] 90 02 Sat by Pulse Oximetry 97 97 94 L Oxygen Delivery Method 12/19/24 13:31 12/19/24 14:00 12/19/24 14:31 Temperature Temperature Source Pulse Rate 91 H 88 86 Pulse Rate [Right] Respiratory Rate Blood Pressure 119/50 L 120/55 L 118/58 L Blood Pressure [Right Arm] Blood Pressure Mean [Right Arm] 02 Sat by Pulse Oximetry 93 L 95 96 Oxygen Delivery Method Room Air Room Air 12/19/24 15:00 12/19/24 15:57 Temperature 98.3 F Temperature Source Pulse Rate 89 84 Pulse Rate [Right] Respiratory Rate 18 Blood Pressure 136/63 133/59 L Blood Pressure [Right Arm] Blood Pressure Mean [Right Arm] 02 Sat by Pulse Oximetry 97 Oxygen Delivery Method Orders (Tests/Meds): ED MEDICATIONS Discontinued Medications Generic Name Dose Route Start Last Admin Trade Name Freq PRN Reason Stop Dose Admin Acetaminophen 1,000 mg 12/19/24 13:28 12/19/24 14:15 Acetaminophen 500mg Tab PO 12/19/24 13:29 1,000 mg ONCE ONE Administration ORDERS Category Date Time Status XR ankle LT min 3V Stat Exams 12/19/24 13:23 Completed XR foot LT min 3V Stat Exams 12/19/24 13:23 Completed Medical Decision Narrative: 79-year-old female presents the emergency department with a crush injury of the left foot, differential diagnose include but not limited to, tuft fracture, metatarsal fracture, foot sprain/strain, ankle sprain/strain, ankle fracture, Freedman fracture, pseudo Freedman fracture among others. I discussed this patient's case with the attending physician Dr. Edge he saw and examined the patient at the bedside Will obtain x-ray of the left foot and x-ray of the left ankle for further evaluation/characterization, will also give 1000 mg p.o. Tylenol for pain. I had a long discussion with the patient at the bedside, radiology report is not yet resulted for interrogation, I along with the attending physician independently reviewed the patient's foot x-ray and ankle x-ray, no obvious acute bony abnormality to her exam, no dislocation noted. Patient would like to be discharged home to self-care, and not wait on full radiology report, shared decision making was utilized I believe this is appropriate. Will give the patient a walking boot, and orthopedic surgery follow-up, patient was given strict ED return precautions. Recommend rest ice elevation compression Tylenol and other anti-inflammatory medication as needed for symptomatic relief. Patient voiced understanding and agreement with current treatment plan/discharge plan. Strict ED return precaution given. Of note I was able to review the patient's x-rays and full radiology report prior to patient's discharge, there is no acute bony abnormality identified in the ankle or the foot, I discussed the results with the patient prior to discharge. Patient voiced understanding. Critical Care Critical Care Time Critical Care Time: No
--- NOTE | 2024-12-19 13:23 | XR_ITS ---
PROCEDURE INFORMATION: Exam: XR Left Ankle Exam date and time: 12/19/2024 1:33 PM Age: 79 years old Clinical indication: Pain; Ankle; Left; Additional info: Crush injury to left foot TECHNIQUE: Imaging protocol: Radiologic exam of the left ankle. Views: 3 or more views. COMPARISON: CR XR FOOT LT MIN 3V 12/19/2024 1:33 PM FINDINGS: Bones/joints: No acute fracture is identified. Chronic appearing ossification along the tip of the medial malleolus may be from remote trauma. No talar shift or dislocation. No significant loss of joint space. Small calcaneal traction spurs. Soft tissues: Mild soft tissue swelling over the medial malleolus. IMPRESSION: No acute fracture is identified.
--- NOTE | 2024-12-19 13:23 | XR_ITS ---
PROCEDURE INFORMATION: Exam: XR Left Foot Exam date and time: 12/19/2024 1:33 PM Age: 79 years old Clinical indication: Injury or trauma; Other: Crush injury to the first digit; Crushing; Foot; Left TECHNIQUE: Imaging protocol: Radiologic exam of the left foot. Views: 3 or more views. COMPARISON: CR XR ANKLE LT MIN 3V 12/19/2024 1:33 PM FINDINGS: Bones/joints: No acute fracture. No dislocation. No significant loss of joint space. Calcaneal traction spurs. Soft tissues: No radiopaque foreign body. IMPRESSION: No acute fracture is identified.
--- NOTE | 2024-12-19 13:33 | PC.NURSE ---
RAD at bedside
[2024-12-19] MEDS: ACETAMINOPHEN 500MG TAB 1000 MG PO (14:15)
== END 2024-12-19 16:16 | disposition home or self-care (01) ==
PROVIDERS: Emergency Provider Student in an Organized Health Care Education/Training Program; PCP Internal Medicine Adolescent Medicine
DX: S97.112A Crushing injury of left great toe, initial encounter (principal); M79.672 Pain in left foot; W28.XXXA Contact with powered lawn mower, initial encounter
CPT/HCPCS: 73610; 73630; 99283; 99284

== ENCOUNTER → 2024-12-23 13:28 | Outpatient (CLI) | payer MEDICARE, SELFPAY | LOC: SL 13:29 | PROVIDERS: PCP Internal Medicine Adolescent Medicine; Visit Provider Specialist | DX: G47.34 Idiopathic sleep related nonobstructive alveolar hypoventilation (principal) | CPT/HCPCS: 94762 ==

== ENCOUNTER 2025-01-05 14:44 | Outpatient (CLI) | payer MEDICARE, SELFPAY ==
--- OUTSIDE RECORDS SUMMARY | 2024-11-23 13:00 | XMS_ITS | Encounter Summary ---
Author Organization Healthcare Address [address] [id number] Care Team Providers Care Program Advocate Name Role Phone Humberto Downs MD Primary Care Provider Reason for Referral * Imaging (Routine) - Closed Specialty Diagnoses / Procedures Referred By Contac t Referred To Contact Cardiology Diagnoses VBI (vertebrobasilar insufficiency) Procedures VAS US Carotid Duplex Bilateral Yifan Reveles MD [address] [facility] [address] [place] [address] Phone: tel: fax: Referral ID Status Reason Start Date Expiration Date V isits Requested Visits Authorized [id number] Closed Perform Procedure 11/23/2024 05/25/2026 1 1 Reason for Visit * Reason Comments Dizziness Coronary artery disease involving [place] coronary artery of * Consultation (Routine) - Closed Specialty Diagnoses / Procedures Referred By Contact Referred To Contact Vascular Surgery / [facility] Diagnoses Dizziness Coronary artery disease involving [place] coronary artery of [place] heart, unspecified whether angina present Zane Lowe PA [address] [place] [address] Phone: tel:[phone] fax:[phone] [facility] [address] [facility] 5th Floor [address] [place] [address] Phone: tel: fax: Referral ID Status Reason Start Date Expiration Date V isits Requested Visits Authorized [id number] Closed Specialty Services Required 10/15/2024 04/16/2026 1 1 Encounter Details Date Type Department Care Team (Latest Contact Info) Description 11/23/2024 1:00 PM EDT Office Visit [facility] [address] 5th Floor [address] [place] [address] Yifan Reveles MD [address] [facility] [address] [place] [address] VBI (vertebrobasilar insufficiency) (Primary Dx) [...] - Doctor) 06/2023 - PCI x4 - [facility] I personally and independently reviewed and interpreted the CT Images from today's visit which showed: Occlusion of proximal right vertebral artery with some reconstitution of the posterior kwethluk from the left vertebral. Possible ostial stenosis [...] documented in this encounter Plan of Treatment Pending Results Name Type Priority Associated Diagnoses Date/Time VAS US Carotid Duplex Bilateral Vascular Ultrasound Routine VBI (vertebrobasilar insufficiency) 01/04/2025 2:05 PM EDT documented as of this encounter Visit Diagnoses Diagnosis VBI (vertebrobasilar insufficiency)- Primary documented in this encounter Additional Health Concerns Assessment Noted Time A fall risk assessment has been complete d for the patient 11/23/2024 1:01 PM EDT A Body Mass Index follow-up plan has been documented for the patient 11/23/2024 1:44 PM EDT documented as of this encounter Care Teams Program Advocate Relationship Specialty Start Date End Date Humberto Downs MD [address] [place] [address] PCP - General 07/29/20 12/28/24 documented as of this encounter
--- OUTSIDE RECORDS SUMMARY | 2025-01-04 13:22 | XMS_ITS | Encounter Summary ---
Author Organization Healthcare Address [address] [id number] Care Team Providers Care Top Taper Machine Name Role Phone Humberto Camarena MD Primary Care Provider [phone] Reason for Referral * Imaging (Routine) - Closed Specialty Diagnoses / Procedures Referred By Songac t Referred To Contact Cardiology Diagnoses VBI (vertebrobasilar insufficiency) Procedures VAS US Carotid Duplex Bilateral Yifan Reveles MD [address] [address] Phone: tel: fax: Referral ID Status Reason Start Date Expiration Date V isits Requested Visits Authorized [id number] Closed Perform Procedure 11/23/2024 05/25/2026 1 1 Reason for Visit * Imaging (Routine) - Closed Specialty Diagnoses / Procedures Referred By Angela roe Referred To Contact Cardiology Diagnoses VBI (vertebrobasilar insufficiency) Procedures VAS US Carotid Duplex Bilateral Yifan Reveles MD [id number] [place] [address] Phone: tel: fax: Referral ID Status Reason Start Date Expiration Date V isits Requested Visits Authorized [id number] Closed Perform Procedure 11/23/2024 05/25/2026 1 1 Encounter Details Date Type Department Care Team (Latest Contact Info) Description 01/04/2025 1:22 PM EDT - 01/04/2025 11:59 PM EDT Hospital Encounter [facility] Vascular Lab [address] [place] [address] VBI (vertebrobasilar insufficiency) Discharge Disposition: Home or Self Care Social History Tobacco Use Types Packs/Day Years Used Date Smoking Tobacco: Former Cigarettes Passive Smoke Exposure: Past Smokeless Tobacco: Never Comments:Quit smoking 25+ ye ars Alcohol Use Standard Drinks/Week Comments Never 0 (1 standard drink = 0.6 oz pur e alcohol) AUDIT-C Answer Date Recorded Q1: How often do you have a drink containing alcohol? Never 01/04/2025 Q2: How many drinks containi ng alcohol do you have on a typical day when you are drinking? Patient does not drink Q3: How often do you have si x or more drinks on one occasion? Never 01/04/2025 Comments Unknown Sex and Gender Information Value Date Recorded Sex Assigned at Not on file Legal Sex Female 7:34 PM EDT Gender Identity Not on file Sexual Orientation Not on file documented as of this encounter Functional Status * AUDIT-C Score Answer Date of Assessment Author 0 01/04/2025 2:11 PM EDT Carlos Steward * Question Answer Date of Assessment Author Q1: How often do you have a drink containing alcohol? Never 01/04/2025 2:11 PM EDT Sabine Steward Q2: How many drinks containing alcohol do you have on a typical day when you are drinking? Patient does not drink 01/04/2025 2:11 PM EDT Sabine Steward Q3: How often do you have six or more drinks on one occasion? Never 01/04/2025 2:11 PM EDT Sabine Steward documented as of this encounter Medications at Time of Discharge acetaZOLAMIDE (Diamox) 250 MG tablet 10/19/2024 albuterol 108 (90 Base) MCG/ACT inhaler 05/05/2024 aspirin 81 MG EC tablet Take 1 tablet by mouth daily. atorvastatin (Lipitor) 80 MG tablet Take 1 tablet by mouth daily. clopidogrel (Plavix) 75 MG tablet 06/15/2024 hydroCHLOROthiazi de 12.5 MG PO tablet Take 1 tablet by mouth daily. ipratropium-albut saman (Duo-Neb) 0.5-2.5 mg/3 mL nebulizer solution as needed. 05/14/2024 meclizine (Antivert) 25 MG tablet Take 1 tablet by mouth as needed. metoprolol succinate XL (Toprol-XL) 25 MG 24 hr tablet 09/16/2024 documented as of this encounter Plan of Treatment Pending Results Name Type Priority Associated Diagnoses Date/Time VAS US Carotid Duplex Bilateral Vascular Ultrasound Routine VBI (vertebrobasilar insufficiency) 01/04/2025 2:05 PM EDT documented as of this encounter Procedures Procedure Name Priority Date/Time Associated Diagnosis Comments VAS US CAROTID DUPLEX BILATERAL Routine 01/04/2025 2:05 PM EDT VBI (vertebrobasilar insufficiency) Procedure Note - 01/04/2025 2:05 PM EDTThis note is in progress. CLINICAL INDICATION: Vertebral basilar occlusive disease. TECHNIQUE: [...] by Janet Min on 01/04/2025 2:39 PM documented in this encounter Visit Diagnoses Diagnosis VBI (vertebrobasilar insufficiency) documented in this encounter Additional Health Concerns Assessment Noted Time A fall risk assessment has been complete d for the patient 01/04/2025 2:21 PM EDT A Body Mass Index follow-up plan has been documented for the patient 01/04/2025 3:12 PM EDT documented as of this encounter Care Teams Top Taper Machine Relationship Specialty Start Date End Date Humberto Camarena MD [address] [place] [address] [place] [address] PCP - General Internal Medicine 12/29/24 documented as of this encounter
--- OUTSIDE RECORDS SUMMARY | 2025-01-04 14:40 | XMS_ITS | Encounter Summary ---
Author Organization Healthcare Address [address] [id number] Care Team Providers Care Agricultural Specialist Name Role Phone Humberto Camarena MD Primary Care Provider + [phone] Reason for Referral * Imaging (Routine) - Pending Review Specialty Diagnoses / Procedures Referred By Contac t Referred To Contact Radiology Diagnoses VBI (vertebrobasilar insufficiency) Asymptomatic bilateral carotid artery stenosis Procedures CT Angio Head Yifan Reveles MD [address] [address] Phone: tel: fax: Referral ID Status Reason Start Date Expiration Date V isits Requested Visits Authorized [id number] Pending Review 01/04/2025 07/06/2026 1 1 * Imaging (Routine) - Pending Review Specialty Diagnoses / Procedures Referred By Contac t Referred To Contact Radiology Diagnoses VBI (vertebrobasilar insufficiency) Asymptomatic bilateral carotid artery stenosis Procedures CT Angio Neck Yifan Reveles MD [id number] [place] [address] Phone: tel: fax: Referral ID Status Reason Start Date Expiration Date V isits Requested Visits Authorized [id number] Pending Review 01/04/2025 07/06/2026 1 1 Reason for Visit * Reason Comments VBI (vertebrobasilar insufficiency) Encounter Details Date Type Department Care Team (Latest Contact Info) Description 01/04/2025 2:40 PM EDT Office Visit [facility] [address] 5th Floor [address] [place] [address] Yifan Reveles MD [address] [facility] [address] [place] [address] VBI (vertebrobasilar insufficiency) (Primary Dx); [...] further evaluation from Dr. Brad Kumar at [facility] for carotid stenting. However, she has not [...] documented as of this encounter Care Teams Agricultural Specialist Relationship Specialty Start Date End Date Humberto Camarena MD [address] [place] [address] PCP - General Internal Medicine 12/29/24 documented as of this encounter
--- NOTE | 2025-01-05 14:48 | XR_ITS ---
FINAL REPORT CLINICAL HISTORY: left foot pain foot ran over with mower 2 weeks ago FINDINGS: Three views show no evidence of acute displaced fracture or dislocation of the visualized bony architecture. There are diffuse degenerative changes, most pronounced of the hindfoot. The bones are osteopenic. IMPRESSION: Degenerative and chronic appearing findings. Reviewed, Interpreted and Dictated by Jessica Acevedo MD Transcribed by Martha Sebastian Authenticated and [facility]
--- OUTSIDE RECORDS SUMMARY | 2025-01-05 14:48 | XMS_ITS | Clinical Summary ---
Author Organization [facility] Address [address] [place] [address] Care Team Providers Care Concaving Machine Operator Name Role Phone Humberto Camarena MD Primary Care Provider + [phone] Allergies Active Allergy Reactions Criticality Noted Date [...] Take 1 tablet by mouth daily. Active acetaZOLAMIDE (Diamox) 250 MG tablet 10/19/2024 Active atorvastatin (Lipitor) 80 MG tablet Take 1 tablet by mouth daily. Active Active Problems Problem Noted Date Diagnosed Date Asymptomatic bilateral carotid artery stenosis 1 VBI (vertebrobasilar insufficiency) 11/23/2024 Encounters Date Type Department Care Team Description 01/04/2025 2:40 PM EDT [facility] Visit [facility] [address] [facility] 5th Floor [address] [place] [address] Yifan Reveles MD VBI (vertebrobasilar insufficiency) (Primary Dx); Asymptomatic bilateral carotid artery stenosis 01/04/2025 1:22 PM EDT - 01/04/2025 11:59 PM EDT Hospital Encounter [facility] V[facility] Lab [address] [place] [address] VBI (vertebrobasilar insufficiency) Discharge Disposition: Home or Self Care 01/04/2025 Travel 12/29/2024 Telephone [facility] [address] [place] [address] Yifan Reveles MD [facility] Clinical Concern/Question 12/19/2024 Orders Only External Location [address] [place] [address] Provider, External 12/19/2024 Orders Only External Location [address] [place] [address] Provider, External 11/24/2024 Telephone [facility] [place] [address] [place] [address] Katelin Gibbs 11/23/2024 1:00 PM EDT Office Visit [facility] [address] [place] [address] Yifan Reveles MD VBI (vertebrobasilar insufficiency) (Primary Dx) 11/23/2024 Travel 11/17/2024 Telephone [facility] [place] [address] [facility] [place] [address] Katelin Gibbs 11/03/2024 Telephone [facility] [address] [place] [address] [facility] Clinical Concern/Question from Last 3 Months Family History Medical History Relation Name Comments Cancer Neg Hx Heart attack Neg Hx Social History Tobacco Use Types Packs/Day Years Used Date Smoking Tobacco: Former Cigarettes Passive Smoke Exposure: Past Smokeless Tobacco: Never Tobacco Cessation:Counseling Given: Not Answered Comments:Quit smoking 25+ years Alcohol Use Standard Drinks/Week Comments Never 0 [...] Mass Index 36.65 01/04/2025 2:08 PM EDT Plan of Treatment Health Maintenance Due Date Last Done Comments [facility]-Bone Density Scan 1945 [facility]-Depression Screening 1945 [facility]-Hepatitis C Screening 1945 [facility]-Medicare Annual Wellness (AWV) 1945 [facility]-/Child/Adol SDOH Screenings 1945 [facility]- SDOH Screenings 11/08/1965 [facility]-Adult SDOH Screenings 11/08/1965 [facility]-Pneumococcal Vaccine: 50 + Years (1 of 1 - PCV) 11/08/1997 [facility]-Zoster Vaccines (3 of 3) 02/04/2024, 06/05/2023 [id number] Vaccine (4 - 2024- season) 2024 12/28/2020, 05/25/2020, 04/27/2020 [facility]-Influenza Vaccine (#1) 2024 02/26/2023 [facility]-DTaP,Tdap,and Td Vaccine s (2 - Td or Tdap) 05/15/2034 05/15/2024 [facility]-RSV Vaccine: 60+ Years o r Completed 05/15/2024 [facility]-Obesity Intervention Completed 025, 11/23/2024 HPV Vaccines Aged Out No longer [...] by Janet Min on 01/04/2025 2:39 PM XR [facility] OUTSIDE IMAGES 12/19/2024 1:33 PM EDT XR [facility] OUTSIDE IMAGES 12/19/2024 1:33 PM EDT from Last 3 Months Results * XR [facility] OUTSIDE IMAGES (12/19/2024 1:33 PM EDT) Only the most recent of2 resultswithin the time period is included. Anatomical Region Laterality Modality Radiographic Emily ging 12/19/2024 1:33 PM EDT External Provider IMG XR PROCEDURES Edited Resul t - Final from Last [address] [place] [address] [place] [address] Care Teams Concaving Machine Operator Relationship Specialty Start Date End Date Humberto Camarena MD [address] [place] [address] PCP - General Internal Medicine 12/29/24
--- OUTSIDE RECORDS SUMMARY | 2025-01-05 14:48 | XMS_ITS | Encounter Summary ---
Author Organization [email or web address] ([place], [place], [place], [place]) Address [address] [place] [address] Care Team Providers Care Correctional Corporal Name Role Phone Unavailable Primary Care Provider Unavailabl e Encounter Details Date Type Department Care Team (Late st Contact Info) Description 05/13/2019 Transcribed Document [facility] [place] [address] [place] [address] ProviderLexi MD [address] [place] [address] Social History Tobacco Use Types [...] - Historical ProviderMD - 05/13/2019 12:01 PM SUPERMARKET MANAGER Final Discharge Planning Entered On: 05/13/2019 12:01 EST Performed On: 05/13/2019 12:01 EST by SANDRA DEL ANGEL Care Management-Sweeper Brush Maker Machine Final Discharge Planning Discharge Arrangements : Patient [...] with Medicare Certification-03 SANDRA DEL ANGEL, Care Management-Sweeper Brush Maker Machine - 05/13/2019 12:01 EST Final Narrative Note Final Narrative Note : anticipate d/c to [facility] on Saturday by family SANDRA DEL ANGEL Care Management-Sweeper Brush Maker Machine - 05/13/2019 12:01 EST documented in this encounter Plan of Treatment Not on file documented as of this encounter Visit Diagnoses Not on filedocumented in this encounter
--- OUTSIDE RECORDS SUMMARY | 2025-01-05 14:48 | XMS_ITS | Encounter Summary ---
Author Organization [facility] Address [address] [id number] Care Team Providers Care Linesperson Name Role Phone Humberto Downs MD Primary Care Provider Encounter Details Date Type Department Care Team (Late st Contact Info) Description 11/24/2024 Telephone [facility] [place] [address] [place] [address] [place] [address] Social History Tobacco Use Types Packs/Day Years [...] state she is looking for a new chief compliance officer. Until that occurs, we will continue to send records to [facility]. * Telephone Encounter - Katelin Gibbs - 11/24/2024 10:53 AM EDT Patient Name:Dominga Ardon : 1945 Date:11/24/2024 Affiliate Site: [facility] Referring Physician: Johnny Flores/ Seen: Vascular/Abdirizak Future scheduling/testing needs: f/u appt 01/04 This [facility] Nurse Liaison contacted Dominga Ardon following their appointment on 11/23/2024. Liaison contact information provided. Will follow up to ensure continuum of care. Katelin Gibbs [facility] Nurse Liaison [phone] documented in this encounter Plan of Treatment [...] documented as of this encounter Care Teams Linesperson Relationship Specialty Start Date End Date Humberto Downs MD [address] [place] [address] [place] [address] PCP - General 07/29/20 12/28/24 documented as of this encounter
--- OUTSIDE RECORDS SUMMARY | 2025-01-05 14:48 | XMS_ITS | Encounter Summary ---
Author Organization [employer] ([place], [place]) Address [address] [place] [address] Care Team Providers Care Active Directory Engineer Name Role Phone Unavailable Primary Care Provider Unavailabl e Encounter Details Date Type Department Care Team (Late st Contact Info) Description 05/13/2019 Transcribed Document [facility] [place] [facility] [address] [place] [address] ProviderLexi MD [address] [place] [address] Social History Tobacco Use Types [...] - Historical ProviderMD - 05/13/2019 2:00 PM SUPERVISOR REFINING Pain Assessment Entered On: 05/13/2019 13:11 EST [...]
--- OUTSIDE RECORDS SUMMARY | 2025-01-05 14:48 | XMS_ITS | Encounter Summary ---
Author Organization [employer] ([place], [place], [place], [place]) Address [address] [place] [address] Care Team Providers Care Relocation Manager Name Role Phone Unavailable Primary Care Provider Unavailabl e Encounter Details Date Type Department Care Team (Late st Contact Info) Description 05/13/2019 Transcribed Document [facility] [place] [address] [place] [address] ProviderLexi MD [address] [place] [address] Social History Tobacco Use Types [...] - Historical ProviderMD - 05/13/2019 8:00 PM PARALEGAL INTERNSHIP Pain Assessment Entered On: 05/14/2019 1:34 EST Performed On: 05/13/2019 23:08 EST by BORIS OVALLE, Solar Field Installation Crew Member-Nursing Intervention Information: traMADol Performed by BORIS OVALLE, Solar Field Installation Crew Member-Nursing on 05/13/2019 22:08:00 EST traMADol,50mg Oral Pain Assessment Pain Assessment : Follow-up assessment Pain Scale Goal : 4 Pain Scale Used : FACES Pain Intervention, Drug : Medicated Pain Improved by Intervention : Yes BORIS OVALLE, Solar Field Installation Crew Member-Nursing - 05/14/2019 1:34 EST Pain Scale Intensity : 2 BORIS OVALLE Solar Field Installation Crew Member-Nursing - 05/14/2019 1:34 EST Image 4 - Images currently included in the form version of this document have not been included in the text rendition version of the form. documented in this encounter Plan of Treatment Not on file documented as of this encounter Visit Diagnoses Not on filedocumented in this encounter
--- OUTSIDE RECORDS SUMMARY | 2025-01-05 14:48 | XMS_ITS | Encounter Summary ---
Author Organization [employer] ([place], [place], [place], [place]) Address [address] [place] [address] Care Team Providers Care Almond Blancher Name Role Phone Unavailable Primary Care Provider Unavailabl e Encounter Details Date Type Department Care Team (Late st Contact Info) Description 05/13/2019 Transcribed Document [facility] [place] [address] [place] [address] ProviderLexi MD [address] [place] [address] Social History Tobacco Use Types [...] - Historical ProviderMD - 05/13/2019 7:01 AM PROFESSOR OF PUBLIC ADMINISTRATION Patient: TAY FONSECA Age: 73 Years Sex: [...] mg= 2 Tab, Oral, Q6HInt Vitamin D2, 55661 Units= 1 Cap, Oral, Saturday Zofran, 4 [...] 05/12/2019 08:44 EST Electronically signed by Angelika, [facility] Conversion Silver Solderer Cerner at 07/02/2022 4:53 PM CDT documented in this encounter Plan of Treatment Not on file documented as of this encounter Visit Diagnoses Not on filedocumented in this encounter
--- OUTSIDE RECORDS SUMMARY | 2025-01-05 14:48 | XMS_ITS | Encounter Summary ---
Author Organization [employer] ([place], [place], [place]) Address [address] [place] [address] Care Team Providers Care Crackling Press Operator Name Role Phone Unavailable Primary Care Provider Unavailabl e Encounter Details Date Type Department Care Team (Late st Contact Info) Description 05/13/2019 Transcribed Document [facility] [facility] [place] [address] [place] [address] ProviderLexi MD [address] [place] [address] Social History Tobacco Use Types [...] - Historical ProviderMD - 05/13/2019 2:15 PM ACADEMIC ADVISEMENT DIRECTOR Spiritual Care Assessment Entered On: 05/13/2019 21:55 EST Performed On: 05/13/2019 14:15 EST by Jose Miguel Downey Chaplain-Non Cert General Information Referred by : Glass Cutting Machine Feeder follow-up Ministry Provided to : Patient Restorationism Preference : Advent Jose Miguel Downey Chaplain-Non Cert - 05/13/2019 21:54 EST Spiritual Assessment Spiritual Assessment Comment/Summary Points : Brief visit with patient as she was not feeling well at this time, no family present. Spirital Assessment Comment/Summary Report : SPIRITUAL ASSESSMENT COMMENT/SUMMARY No qualifying data available. Jose Miguel Downey Chaplain-Non Cert - 05/13/2019 21:54 EST Electronically signed by Angelika [facility] Conversion Nuclear Equipment Design Engineer Cerner at 07/02/2022 4:53 PM CDT documented in this encounter Plan of Treatment Not on file documented as of this encounter Visit Diagnoses Not on filedocumented in this encounter
--- OUTSIDE RECORDS SUMMARY | 2025-01-05 14:48 | XMS_ITS | Encounter Summary ---
Author Organization [employer] ([place], [place], [place], [place]) Address [address] [place] [address] Care Team Providers Care Seals Engraver Name Role Phone Unavailable Primary Care Provider Unavailabl e Encounter Details Date Type Department Care Team (Late st Contact Info) Description 05/13/2019 Transcribed Document [facility] [place] Family Medicine [address] [place] [address] ProviderLexi MD [address] [place] [address] Social History Tobacco Use Types [...] - Historical ProviderMD - 05/13/2019 5:00 AM ABRASIVE GRADER HELPER Chart Check - Review Order Profile Entered On: 05/13/2019 4:27 EST Performed On: 05/13/2019 5:00 EST by BORIS OVALLE, Associate Professor Of Philosophy-Nursing Chart Check Powerplans Initiated/Discontinued as Appropriate : Yes All Active Orders Reviewed : Yes BORIS OVALLE, Associate Professor Of Philosophy-Nursing - 05/13/2019 4:27 EST Electronically signed by Angelika [facility] Conversion Pole Sander Operator Cerner at 07/02/2022 4:58 PM CDT documented in this encounter Plan of Treatment Not on file documented as of this encounter Visit Diagnoses Not on filedocumented in this encounter
--- OUTSIDE RECORDS SUMMARY | 2025-01-05 14:48 | XMS_ITS | Encounter Summary ---
Author Organization [employer] ([place], [place], [place], [place]) Address [address] [place] [address] Care Team Providers Care Automation Tender Name Role Phone Unavailable Primary Care Provider Unavailabl e Encounter Details Date Type Department Care Team (Late st Contact Info) Description 05/13/2019 Transcribed Document [facility] [place] Family Medicine [address] [place] [address] ProviderLexi MD [address] [place] [address] Social History Tobacco Use Types [...] - Historical ProviderMD - 05/13/2019 8:42 AM LDR NURSE Nutrition Assessment Entered On: 05/14/2019 13:18 EST [...] 05/14/2019 15:20 EST Electronically signed by Angelika [facility] Conversion Men'S Locker Room Attendant Cerner at 07/02/2022 4:55 PM CDT documented in this encounter Plan of Treatment Not on file documented as of this encounter Visit Diagnoses Not on filedocumented in this encounter
--- OUTSIDE RECORDS SUMMARY | 2025-01-05 14:49 | XMS_ITS | Encounter Summary ---
Author Organization [employer] ([place], [place], [place]) Address [address] [place] [address] Care Team Providers Care Frame Carver Spindle Name Role Phone Unavailable Primary Care Provider Unavailabl e Encounter Details Date Type Department Care Team (Late st Contact Info) Description 05/15/2019 Transcribed Document [facility] [place] [address] [place] [address] ProviderLexi MD [address] [place] [address] Social History Tobacco Use Types [...] - Historical ProviderMD - 05/15/2019 8:00 AM WEB PROGRAMMER Pain Assessment Entered On: 05/15/2019 9:59 EST Performed On: 05/15/2019 7:30 EST by Rosie Warner RN Intervention Information: traMADol Performed by BORIS OVALLE, Scallop Dredger-Nursing on 05/15/2019 06:30:00 EST traMADol,50mg Oral Pain [...]
--- OUTSIDE RECORDS SUMMARY | 2025-01-05 14:49 | XMS_ITS | Encounter Summary ---
Author Organization [employer] ([place], [place], [place], [place]) Address [address] [place] [address] Care Team Providers Care Manager Government Name Role Phone Unavailable Primary Care Provider Unavailabl e Encounter Details Date Type Department Care Team (Late st Contact Info) Description 05/15/2019 Transcribed Document [facility] [address] [place] [address] Alba River MD [address] [place] [address] Social History Tobacco Use Types Packs/Day [...] the patient will be going to the [facility] on 05/16/2019 for the same. The patient [...] case management totaled cumulatively to 35 minutes. /[id number] Alba River MD VLS/AQ / VLS / MODL /[id number] documented in this encounter Plan of Treatment Not on file documented as of this encounter Visit Diagnoses Not on filedocumented in this encounter
--- OUTSIDE RECORDS SUMMARY | 2025-01-05 14:49 | XMS_ITS | Encounter Summary ---
Author Organization [email or web address] ([place], [place], [place]) Address [address] [place] [address] Care Team Providers Care Vp Research Name Role Phone Unavailable Primary Care Provider Unavailabl e Encounter Details Date Type Department Care Team (Late st Contact Info) Description 05/15/[address] [facility] [place] Family Medicine [address] [place] [address] ProviderLexi MD [address] [place] [address] Social History Tobacco Use Types [...] - Historical ProviderMD - 05/15/2019 2:35 PM FINAL INSPECTOR Final Discharge Planning Entered On: 05/15/2019 14:36 EST Performed On: 05/15/2019 14:35 EST by SANDRA DEL ANGEL, Care Management-Transportation Assistant Final Discharge Planning Discharge Arrangements : Patient [...] Discharge Comment : Patient is accepted to [facility] on Saturday\her nephew will transport SANDRA DEL ANGEL, Care Management-Transportation Assistant - 05/15/2019 14:35 EST Final Narrative Note Historical Narrative Note : anticipate d/c to [facility] on Saturday by family SANDRA DEL ANGEL, Care Management-Transportation Assistant - 05/13/19 12:01:59 SANDRA DEL ANGEL Care Management-Transportation Assistant - 05/15/2019 14:35 EST documented in this encounter Plan of Treatment Not on file documented as of this encounter Visit Diagnoses Not on filedocumented in this encounter
--- OUTSIDE RECORDS SUMMARY | 2025-01-05 14:49 | XMS_ITS | Encounter Summary ---
Author Organization [employer] ([place], [place], [place], [place]) Address [address] [place] [address] Care Team Providers Care Registered Nurse Name Role Phone Unavailable Primary Care Provider Unavailabl e Encounter Details Date Type Department Care Team (Late st Contact Info) Description 05/14/2019 Transcribed Document [facility] [place] Family Medicine [address] [place] [address] ProviderLexi MD [address] [place] [address] Social History Tobacco Use Types [...] - Historical ProviderMD - 05/14/2019 8:00 AM SENIOR PHP DEVELOPER Pain Assessment Entered On: 05/14/2019 11:33 EST Performed On: 05/14/2019 6:46 EST by Rach Red RN Intervention Information: traMADol Performed by BORIS OVALLE, Security Site Supervisor-Nursing on 05/14/2019 05:46:00 EST traMADol,50mg Oral Pain [...]
--- OUTSIDE RECORDS SUMMARY | 2025-01-05 14:49 | XMS_ITS | Encounter Summary ---
Author Organization [employer] ([place], [place], [place], [place]) Address [address] [place] [address] Care Team Providers Care Alto Singer Name Role Phone Unavailable Primary Care Provider Unavailabl e Encounter Details Date Type Department Care Team (Late st Contact Info) Description 05/13/2019 Transcribed Document [facility] [place] Family Medicine [address] [place] [address] ProviderLexi MD [address] [place] [address] Social History Tobacco Use Types [...] - Historical ProviderMD - 05/13/2019 2:00 AM QI SPECIALIST Humane Officer Details Entered On: 05/13/2019 4:26 EST Performed On: 05/13/2019 2:00 EST by BORIS OVALLE, Huller Operator-Nursing Order Details Transport Mode Order Detail : Wheelchair Isolation Precautions Order Detail : Standard Precautions Order Detail : N/A IV Order Detail : 1 Oxygen Order Detail : 0 Nurse Collect Order Detail : 0 Lift/Transfer : Minimal Central Line Order Detail : No Room Service : Appropriate Arterial Line : No BORIS OVALLE, Huller Operator-Nursing - 05/13/2019 4:25 EST documented in this encounter Plan of Treatment Not on file documented as of this encounter Visit Diagnoses Not on filedocumented in this encounter
--- OUTSIDE RECORDS SUMMARY | 2025-01-05 14:49 | XMS_ITS | Encounter Summary ---
Author Organization [employer] ([place], [place], [place], [place]) Address [address] [place] [address] Care Team Providers Care Director Long Term Care Name Role Phone Unavailable Primary Care Provider Unavailabl e Encounter Details Date Type Department Care Team (Late st Contact Info) Description 05/13/2019 Transcribed Document [facility] [place] Family Medicine [address] [place] [address] ProviderLexi MD [address] [place] [address] Social History Tobacco Use Types [...] - Historical ProviderMD - 05/13/2019 1:00 AM ENVIRONMENTAL DESIGNER Pain Assessment Entered On: 05/13/2019 4:26 EST Performed On: 05/13/2019 2:28 EST by BORIS OVALLE, Cooper Apprentice-Nursing Intervention Information: acetaminophen Performed by BORIS OVALLE, Cooper Apprentice-Nursing on 05/13/2019 01:28:00 EST acetaminophen,1000mg Oral Pain Assessment Pain Assessment : Follow-up assessment Pain Scale Goal : 4 Pain Scale Used : FACES Pain Intervention, Drug : Medicated Pain Improved by Intervention : Yes BORIS OVALLE, Cooper Apprentice-Nursing - 05/13/2019 4:26 EST Pain Scale Intensity : 2 BORIS OVALLE, Cooper Apprentice-Nursing - 05/13/2019 4:26 EST Image 4 - Images currently included in the form version of this document have not been included in the text rendition version of the form. documented in this encounter Plan of Treatment Not on file documented as of this encounter Visit Diagnoses Not on filedocumented in this encounter
--- OUTSIDE RECORDS SUMMARY | 2025-01-05 14:49 | XMS_ITS | Encounter Summary ---
Author Organization [employer] ([place], [place], [place], [place]) Address [address] [place] [address] Care Team Providers Care Wireless Engineer Name Role Phone Unavailable Primary Care Provider Unavailabl e Encounter Details Date Type Department Care Team (Late st Contact Info) Description 05/13/2019 Transcribed Document [facility] Radiology [address] [place] [address] Alba Rievr MD [address] [place] [address] Social History Tobacco Use Types Packs/Day [...] reports no chest pain Tolerated her diet [place] a little weak this am No nausea [...] mg= 2 Tab, Oral, Q6HInt Vitamin D2, 44034 Units= 1 Cap, Oral, Saturday Zofran, 4 [...]
--- OUTSIDE RECORDS SUMMARY | 2025-01-05 14:49 | XMS_ITS | Encounter Summary ---
Author Organization [employer] ([place], [place], [place], [place]) Address [address] [place] [address] Care Team Providers Care Income Auditor Name Role Phone Unavailable Primary Care Provider Unavailabl e Encounter Details Date Type Department Care Team (Late st Contact Info) Description 05/15/2019 Transcribed Document [facility] [place] Family Medicine [address] [place] [address] ProviderLexi MD [address] [place] [address] Social History Tobacco Use Types [...] - Historical ProviderMD - 05/15/2019 3:50 PM GALVANIZER Valuables and Belongings Entered On: 05/15/2019 15:55 [...]
--- OUTSIDE RECORDS SUMMARY | 2025-01-05 14:49 | XMS_ITS | Encounter Summary ---
Author Organization [employer] ([place], [place], [place], [place]) Address [address] [place] [address] Care Team Providers Care Real Estate Developer Name Role Phone Unavailable Primary Care Provider Unavailabl e Encounter Details Date Type Department Care Team (Late st Contact Info) Description 05/12/2019 Transcribed Document [facility] [place] [address] [place] [address] ProviderLexi MD [address] [place], [...] - Historical ProviderMD - 05/12/2019 5:06 PM VASCULAR PHYSICIAN Initial Discharge Planning Entered On: 05/12/2019 17:08 EST Performed On: 05/12/2019 17:06 EST by SANDRA DEL ANGEL Care Management-Warehouse Distribution Associate Initial Assessment I Previously Documented Living Environment : No qualifying data available. Living Situation : Home Patient Lives With : Alone Emergency Contact #1 : Roxy Emergency Contact #1 Emergency Contact #1 Relationship : sister Emergency Contact #2 : . Emergency Contact #2 Phone Number : . Emergency Contact #2 Relationship : . SANDRA DEL ANGEL, Care Management-Warehouse Distribution Associate - 05/12/2019 17:06 EST Narrative Note Narrative Note : Pt stated to Navigator, [facility] staff, and myself that she must go to rehab at [facility]. she lives alone, has stairs and no [...] review and advise. SANDRA DEL ANGEL, Care Management-Warehouse Distribution Associate - 05/12/2019 17:06 EST Electronically signed by Angelika [facility] Conversion Mallet And Die Cutter Cerner at 07/02/2022 5:10 PM CDT documented in this encounter Plan of Treatment Not on file documented as of this encounter Visit Diagnoses Not on filedocumented in this encounter
--- OUTSIDE RECORDS SUMMARY | 2025-01-05 14:49 | XMS_ITS | Encounter Summary ---
Author Organization [employer] ([place], [place], [place], [place]) Address [address] [place] [address] Care Team Providers Care Clothes Drier Assembler Name Role Phone Unavailable Primary Care Provider Unavailabl e Encounter Details Date Type Department Care Team (Late st Contact Info) Description 05/14/2019 Transcribed Document [facility] [place] Family Medicine [address] [place] [address] ProviderLexi MD [address] [place] [address] Social History Tobacco Use Types [...] - Historical ProviderMD - 05/14/2019 8:00 PM REFERENCE AND INSTRUCTION LIBRARIAN Pain Assessment Entered On: 05/14/2019 22:55 EST Performed On: 05/14/2019 22:48 EST by BORIS OVALLE, Sword Swallower-Nursing Intervention Information: traMADol Performed by BORIS OVALLE, Sword Swallower-Nursing on 05/14/2019 21:48:00 EST traMADol,50mg Oral Pain Assessment Pain Assessment : Follow-up assessment Pain Scale Goal : 4 Pain Scale Used : FACES Pain Intervention, Drug : Medicated Pain Improved by Intervention : Yes BORIS OVALLE, Sword Swallower-Nursing - 05/14/2019 22:54 EST Pain Scale Intensity : 3 BORIS OVALLE Sword Swallower-Nursing - 05/14/2019 22:54 EST Image 4 - Images currently included in the form version of this document have not been included in the text rendition version of the form. documented in this encounter Plan of Treatment Not on file documented as of this encounter Visit Diagnoses Not on filedocumented in this encounter
--- OUTSIDE RECORDS SUMMARY | 2025-01-05 14:49 | XMS_ITS | Encounter Summary ---
Author Organization [employer] ([place], [place], [place], [place]) Address [address] [place] [address] Care Team Providers Care Finishing Range Supervisor Name Role Phone Unavailable Primary Care Provider Unavailabl e Encounter Details Date Type Department Care Team (Late st Contact Info) Description 05/14/2019 Transcribed Document [facility] [place] [address] [place] [address] ProviderLexi MD [address] [place] [address] Social History Tobacco Use Types [...] - Historical ProviderMD - 05/14/2019 1:00 PM FINAL TOUCH UP PAINTER Pain Assessment Entered On: 05/14/2019 14:16 EST Performed On: 05/14/2019 14:13 EST by Rach Red RN Intervention Information: acetaminophen Performed by Rach Red RN on 05/14/2019 13:13:00 EST acetaminophen,1000mg Oral Pain Assessment Pain Assessment : Follow-up assessment Pain Scale Goal : 4 Pain Scale Used : 0-10 Scale Rach Red RN - 05/14/2019 14:16 EST Pain Scale Intensity : 3 Rcah Red RN - 05/14/2019 14:16 EST Image 4 - Images currently included in the form version of this document have not been included in the text rendition version of the form. documented in this encounter Plan of Treatment Not on file documented as of this encounter Visit Diagnoses Not on filedocumented in this encounter
--- OUTSIDE RECORDS SUMMARY | 2025-01-05 14:49 | XMS_ITS | Encounter Summary ---
Author Organization [employer] ([place], [place], [place], [place]) Address [address] [place] [address] Care Team Providers Care Hat Braider Name Role Phone Unavailable Primary Care Provider Unavailabl e Encounter Details Date Type Department Care Team (Late st Contact Info) Description 05/13/2019 Transcribed Document [facility] [place] Family Medicine [address] [place] [address] ProviderLexi MD [address] [place] [address] Social History Tobacco Use Types [...] - Historical ProviderMD - 05/13/2019 7:00 AM CARDIOLOGY COORDINATOR Pain Assessment Entered On: 05/13/2019 7:52 EST Performed On: 05/13/2019 7:15 EST by Rach Red RN Intervention Information: acetaminophen Performed by BORIS OVALLE, Lean Manufacturing Engineer-Nursing on 05/13/2019 06:15:00 EST acetaminophen,1000mg Oral Pain [...]
--- OUTSIDE RECORDS SUMMARY | 2025-01-05 14:49 | XMS_ITS | Encounter Summary ---
Author Organization [email or web address] ([place], [place], [place], [place]) Address [address] [place] [address] Care Team Providers Care Junior Technical Writer Name Role Phone Unavailable Primary Care Provider Unavailabl e Encounter Details Date Type Department Care Team (Late st Contact Info) Description 05/15/2019 Transcribed Document [facility] [place] Family Medicine [address] [place] [address] ProviderLexi MD [address] [place] [address] Social History Tobacco Use Types [...] - Historical ProviderMD - 05/15/2019 11:06 AM MANAGER HOTEL Stroke/Warfarin Instructions Entered On: 05/15/2019 11:06 EST Performed On: 05/15/2019 11:06 EST by Rosie Warner RN Stroke/Warfarin Instructions Stroke/TIA Discharge Ins : N/A Warfarin Discharge Ins : N/A Rosie Warenr RN - 05/15/2019 11:06 EST documented in this encounter Plan of Treatment Not on file documented as of this encounter Visit Diagnoses Not on filedocumented in this encounter
--- OUTSIDE RECORDS SUMMARY | 2025-01-05 14:49 | XMS_ITS | Encounter Summary ---
Author Organization [employer] ([place], [place], [place], [place]) Address [address] [place] [address] Care Team Providers Care Quality Engineer Name Role Phone Unavailable Primary Care Provider Unavailabl e Encounter Details Date Type Department Care Team (Late st Contact Info) Description 05/15/2019 Transcribed Document [facility] [place] [address] [place] [address] ProviderLexi MD [address] [place] [address] Social History Tobacco Use [...] - Historical ProviderMD - 05/15/2019 8:00 PM BATCH MIXING TRUCK DRIVER Pain Assessment Entered On: 05/15/2019 23:08 EST [...]
--- OUTSIDE RECORDS SUMMARY | 2025-01-05 14:49 | XMS_ITS | Encounter Summary ---
Author Organization [employer] ([place], [place], [place], [place]) Address [address] [place] [address] Care Team Providers Care Bilingual Customer Service Specialist Name Role Phone Unavailable Primary Care Provider Unavailabl e Encounter Details Date Type Department Care Team (Late st Contact Info) Description 05/15/2019 Transcribed Document [facility] [place] [address] [place] [address] ProviderLexi MD [address] [place] [address] Social History Tobacco Use Types [...] - Historical ProviderMD - 05/15/2019 5:00 AM MARKETING TEACHER Chart Check - Review Order Profile Entered On: 05/15/2019 5:23 EST Performed On: 05/15/2019 5:00 EST by BORIS OVALLE, Upholstered Goods Crafter-Nursing Chart Check Powerplans Initiated/Discontinued as Appropriate : Yes All Active Orders Reviewed : Yes BORIS OVALLE, Upholstered Goods Crafter-Nursing - 05/15/2019 5:23 EST documented in this encounter Plan of Treatment Not on file documented as of this encounter Visit Diagnoses Not on filedocumented in this encounter
--- OUTSIDE RECORDS SUMMARY | 2025-01-05 14:49 | XMS_ITS | Encounter Summary ---
Author Organization [employer] ([place], [place], [place], [place]) Address [address] [place] [address] Care Team Providers Care Site Technician Name Role Phone Unavailable Primary Care Provider Unavailabl e Encounter Details Date Type Department Care Team (Late st Contact Info) Description 05/12/2019 Transcribed Document [facility] [place] Family Medicine [address] [place] [address] ProviderLexi MD [address] [place] [address] Social History Tobacco Use Types [...] - Historical ProviderMD - 05/12/2019 2:00 PM PLASTICS PLATER Pain Assessment Entered On: 05/12/2019 16:50 EST [...]
--- OUTSIDE RECORDS SUMMARY | 2025-01-05 14:49 | XMS_ITS | Encounter Summary ---
Author Organization [employer] ([place], [place], [place], [place]) Address [address] [place] [address] Care Team Providers Care Billet Examiner Name Role Phone Unavailable Primary Care Provider Unavailabl e Encounter Details Date Type Department Care Team (Late st Contact Info) Description 05/15/2019 Transcribed Document [facility] [place] Family Medicine [address] [place] [address] ProviderLexi MD [address] [place] [address] Social History Tobacco Use Types [...] - Historical ProviderMD - 05/15/2019 2:00 AM ASSEMBLER ERECTOR Management Psychologist Details Entered On: 05/15/2019 5:23 EST Performed On: 05/15/2019 2:00 EST by BORIS OVALLE, Civil Draftsman-Nursing Order Details Transport Mode Order Detail : Wheelchair Isolation Precautions Order Detail : Standard Precautions Order Detail : N/A IV Order Detail : 1 Oxygen Order Detail : 1 Nurse Collect Order Detail : 0 Lift/Transfer : Minimal Central Line Order Detail : No Room Service : Appropriate Arterial Line : No BORIS OVALLE, Civil Draftsman-Nursing - 05/15/2019 5:22 EST documented in this encounter Plan of Treatment Not on file documented as of this encounter Visit Diagnoses Not on filedocumented in this encounter
--- OUTSIDE RECORDS SUMMARY | 2025-01-05 14:49 | XMS_ITS | Encounter Summary ---
Author Organization [employer] ([place], [place], [place], [place]) Address [address] [place] [address] Care Team Providers Care Fresco Artist Name Role Phone Unavailable Primary Care Provider Unavailabl e Encounter Details Date Type Department Care Team (Late st Contact Info) Description 05/15/2019 Transcribed Document [facility] [place] Medicine [address] [place] [address] ProviderLexi MD [address] [place] [address] Social History Tobacco Use Types [...] - Historical ProviderMD - 05/15/2019 5:00 PM PODIATRY TEACHER Chart Check - Review Order Profile [...]
--- OUTSIDE RECORDS SUMMARY | 2025-01-05 14:49 | XMS_ITS | Encounter Summary ---
Author Organization [employer] ([place], [place], [place], [place]) Address [address] [place] [address] Care Team Providers Care Shipping And Receiving Associate Name Role Phone Unavailable Primary Care Provider Unavailabl e Encounter Details Date Type Department Care Team (Late st Contact Info) Description 05/15/2019 Transcribed Document [facility] [place] Family Medicine [address] [place] [address] ProviderLexi MD [address] [place] [address] Social History Tobacco Use Types [...] - Historical ProviderMD - 05/15/2019 3:50 PM MS SQL DEVELOPER Floor Finisher Helper Details Entered On: 05/15/2019 15:55 EST Performed [...]
--- OUTSIDE RECORDS SUMMARY | 2025-01-05 14:49 | XMS_ITS | Encounter Summary ---
Author Organization [employer] ([place], [place], [place], [place]) Address [address] [place] [address] Care Team Providers Care Cook Taco Name Role Phone Unavailable Primary Care Provider Unavailabl e Encounter Details Date Type Department Care Team (Late st Contact Info) Description 05/13/2019 Transcribed Document [facility] [place] Family Medicine [address] [place] [address] ProviderLexi MD [address] [place] [address] Social History Tobacco Use Types [...] - Historical ProviderMD - 05/13/2019 7:00 PM GENERAL INTERNAL MEDICINE DOCTOR Pain Assessment Entered On: 05/14/2019 1:34 EST Performed On: 05/13/2019 23:08 EST by BORIS OVALLE, Secure Software Assessor-Nursing Intervention Information: acetaminophen Performed by BORIS OVALLE, Secure Software Assessor-Nursing on 05/13/2019 22:08:00 EST acetaminophen,1000mg Oral Pain Assessment Pain Assessment : Follow-up assessment Pain Scale Goal : 4 Pain Scale Used : FACES Pain Intervention, Drug : Medicated Pain Improved by Intervention : Yes BORIS OVALLE, Secure Software Assessor-Nursing - 05/14/2019 1:33 EST Pain Scale Intensity : 3 BORIS OVALLE Secure Software Assessor-Nursing - 05/14/2019 1:33 EST Image 4 - Images currently included in the form version of this document have not been included in the text rendition version of the form. documented in this encounter Plan of Treatment Not on file documented as of this encounter Visit Diagnoses Not on filedocumented in this encounter
--- OUTSIDE RECORDS SUMMARY | 2025-01-05 14:50 | XMS_ITS | Encounter Summary ---
Author Organization [employer] ([place], [place], [place], [place]) Address [address] [place] [address] Care Team Providers Care Rn Training Name Role Phone Unavailable Primary Care Provider Unavailabl e Encounter Details Date Type Department Care Team (Late st Contact Info) Description 05/14/2019 Transcribed Document [facility] [address] [place] [address] Alba River MD [address] [place] [address] Social History Tobacco Use Types Packs/Day [...] Signature: __Tonja Canela RN CDS Phone #: _[phone] BMI < 18.5 Under weight ? 18.5 - 24.9 Healthy ? 25.0 - 29.9 Slightly Overweight ? 30.0 - 34.9 Obese/Class I ? 35.0 - 39.9 Severely Obese/Class II ? 40.0 and Over Morbidly Obese/Class III Source: [facility] This is a permanent part of the Medical Record Q9 2019 [facility] Updated: documented in this encounter Plan of Treatment Not on file documented as of this encounter Visit Diagnoses Not on filedocumented in this encounter
--- OUTSIDE RECORDS SUMMARY | 2025-01-05 14:50 | XMS_ITS | Encounter Summary ---
Author Organization [employer] ([place], [place], [place], [place]) Address [address] [place] [address] Care Team Providers Care Black Off Worker Name Role Phone Unavailable Primary Care Provider Unavailabl e Encounter Details Date Type Department Care Team (Late st Contact Info) Description 05/12/2019 Transcribed Document [facility] [place] Family Medicine [address] [place] [address] ProviderLexi MD [address] [place], [...] - Historical ProviderMD - 05/12/2019 12:53 PM CUTTING MACHINE TENDER Pain Assessment Entered On: 05/13/2019 7:53 EST Performed On: 05/13/2019 7:15 EST by Rach Red RN Intervention Information: oxyCODONE Performed by BORIS OVALLE, Securities Compliance Examiner-Nursing on 05/13/2019 06:15:00 EST oxyCODONE,10mg Oral,Pain (Severe [...]
--- OUTSIDE RECORDS SUMMARY | 2025-01-05 14:50 | XMS_ITS | Encounter Summary ---
Author Organization [employer] ([place], [place], [place], [place]) Address [address] [place] [address] Care Team Providers Care Professional Athletes Coach Name Role Phone Unavailable Primary Care Provider Unavailabl e Encounter Details Date Type Department Care Team (Late st Contact Info) Description 05/12/2019 Transcribed Document [facility] [place] [address] [place] [address] ProviderLexi MD [address] [place] [address] Social History Tobacco Use Types [...] - Historical ProviderMD - 05/12/2019 1:00 PM LAP CUTTER TRUER OPERATOR Pain Assessment Entered On: 05/12/2019 16:50 [...]
--- OUTSIDE RECORDS SUMMARY | 2025-01-05 14:50 | XMS_ITS | Encounter Summary ---
Author Organization [employer] ([place], [place], [place], [place]) Address [address] [place] [address] Care Team Providers Care Head Of Digital Name Role Phone Unavailable Primary Care Provider Unavailabl e Encounter Details Date Type Department Care Team (Late st Contact Info) Description 05/12/2019 Transcribed Document [facility] [place] Family Medicine [address] [place] [address] ProviderLexi MD [address] [place], [...] - Historical ProviderMD - 05/12/2019 1:18 PM TESTER SEMICONDUCTOR PACKAGES Admission History, Adult Entered On: 05/12/2019 13:21 [...] Obtained From : Patient Primary Language : Belarusian Preferred Communication Mode : Verbal Communication Barrier [...] Level : 46 or > High Risk [place] Fall Interventions : Assistive devices within reach, [...] Source : Stated Height Entry Format : [place] Height, Feet : 5 ft(Converted to: 152 cm, 60 Inch) Height, Inches : 2 Inch(Converted to: 0 ft 2 Inch, 5.08 cm) Clinical Height : 157.48 cm Weight Source : Standing scale Weight Entry Format : [place] Clinical Dosing Weight : 107.27 kg Weight, Pounds : 236 lb Body Surface Area (BSA) : 2.05 m2 Body Mass Index : 43.3 kg/m2 (>HHI) [place] Body Weight : 50 kg Rach Red [...] Rach Red RN - 05/12/2019 13:18 EST [place] Suicide Severity Rating Scale (C-SSRS) CSSRS Past [...] Any Spiritual/Cultural Needs or Requests : Yes Buddhism Preference : Jew Rach Red RN - 05/12/2019 13:18 EST [...]
--- OUTSIDE RECORDS SUMMARY | 2025-01-05 14:50 | XMS_ITS | Encounter Summary ---
Author Organization [employer] ([place], [place], [place], [place]) Address [address] [place] [address] Care Team Providers Care Bell Ringer Name Role Phone Unavailable Primary Care Provider Unavailabl e Encounter Details Date Type Department Care Team (Late st Contact Info) Description 05/12/2019 Transcribed Document [facility] [place] Family Medicine [address] [place] [address] ProviderLexi MD [address] [place] [address] Social History Tobacco Use Types [...] - Historical ProviderMD - 05/12/2019 8:30 AM [employer] ADVISOR Event Note Entered On: 05/12/2019 9:11 EST [...] 05/12/2019 13:46 EST Electronically signed by Angelika [facility] Conversion Developer Evangelist Raghav at 07/02/2022 5:17 PM CDT documented in this encounter Plan of Treatment Not on file documented as of this encounter Visit Diagnoses Not on filedocumented in this encounter
--- OUTSIDE RECORDS SUMMARY | 2025-01-05 14:50 | XMS_ITS | Encounter Summary ---
Author Organization [employer] ([place], [place], [place], [place]) Address [address] [place] [address] Care Team Providers Care Masonry Installer Name Role Phone Unavailable Primary Care Provider Unavailabl e Encounter Details Date Type Department Care Team (Late st Contact Info) Description 05/14/2019 Transcribed Document [facility] [place] Family Medicine [address] [place] [address] ProviderLexi MD [address] [place] [address] Social History Tobacco Use [...] - Historical ProviderMD - 05/14/2019 7:00 AM HOSPICE MANAGER Pain Assessment Entered On: 05/14/2019 11:33 EST Performed On: 05/14/2019 6:46 EST by Rach Red RN Intervention Information: acetaminophen Performed by BORIS OVALLE, Digital Account Executive-Nursing on 05/14/2019 05:46:00 EST acetaminophen,1000mg Oral Pain [...] form. Electronically signed by Meghan Carney Conversion [employer] Certified Network Associate Raghav at 07/02/2022 5:11 PM CDT documented in this encounter Plan of Treatment Not on file documented as of this encounter Visit Diagnoses Not on filedocumented in this encounter
--- OUTSIDE RECORDS SUMMARY | 2025-01-05 14:50 | XMS_ITS | Encounter Summary ---
Author Organization [employer] ([place], [place], [place], [place]) Address [address] [place] [address] Care Team Providers Care Wire Winding Machine Operator Name Role Phone Unavailable Primary Care Provider Unavailabl e Encounter Details Date Type Department Care Team (Late st Contact Info) Description 05/14/2019 Transcribed Document [facility] Radiology [address] [place] [address] Fernando River MD [address] [place] [address] Social History Tobacco Use Types Packs/Day [...] and CM reported [facility] Discussed with patient and nursing and [...] mg= 2 Tab, Oral, Q6HInt Vitamin D2, 42839 Units= 1 Cap, Oral, Saturday Zofran, 4 [...]
--- OUTSIDE RECORDS SUMMARY | 2025-01-05 14:50 | XMS_ITS | Encounter Summary ---
Author Organization [employer] ([place], [place], [place], [place]) Address [address] [place] [address] Care Team Providers Care Handbell Choir Director Name Role Phone Unavailable Primary Care Provider Unavailabl e Encounter Details Date Type Department Care Team (Late st Contact Info) Description 05/14/2019 Transcribed Document [facility] [place] [address] [place] [address] ProviderLexi MD [address] [place], [...] - Historical ProviderMD - 05/14/2019 2:00 PM AUTO DAMAGE APPRAISER Pain Assessment Entered On: 05/14/2019 14:15 EST [...]
--- OUTSIDE RECORDS SUMMARY | 2025-01-05 14:50 | XMS_ITS | Encounter Summary ---
Author Organization [employer] ([place], [place], [place], [place]) Address [address] [place] [address] Care Team Providers Care Gear Machinist Name Role Phone Unavailable Primary Care Provider Unavailabl e Encounter Details Date Type Department Care Team (Late st Contact Info) Description 05/12/2019 Transcribed Document [facility] [place] Family Medicine [address] [place] [address] ProviderLexi MD [address] [place] [address] Social History Tobacco Use Types [...] - Historical ProviderMD - 05/12/2019 12:53 PM PLANNING COORDINATOR Evaluation, Physical Therapy Entered On: 05/12/2019 15:07 [...] Therapy : Pain Rehabilitation Potential : Good IWLIAN KENNEDY, PT - 05/12/2019 14:46 EST Plan [...] WILIAN KENNEDY, PT - 05/12/2019 14:46 EST Topper Press Operator Automatic Goals Other PT LTG Grid Goal #1 [...] services for ATHA protocol + to maxamize safety/[place] with functional mobility prior to discharge. Plan [...] Needs, OT/PT Anticipated Discharge to : Unit, [facility] Anticipated Home Equipment : Walker Anticipated D/C Provider Notified : clinical services manager/case management Recommend Continued Therapy at [...]
--- OUTSIDE RECORDS SUMMARY | 2025-01-05 14:50 | XMS_ITS | Encounter Summary ---
Author Organization [employer] ([place], [place], [place], [place]) Address [address] [place] [address] Care Team Providers Care Gas Main Fitter Helper Name Role Phone Unavailable Primary Care Provider Unavailabl e Encounter Details Date Type Department Care Team (Late st Contact Info) Description 05/14/2019 Transcribed Document [facility] [place] Family Medicine [address] [place] [address] ProviderLexi MD [address] [place], [...] - Historical ProviderMD - 05/14/2019 7:00 PM INTERNATIONAL TRAVEL CONSULTANT Pain Assessment Entered On: 05/14/2019 22:54 EST Performed On: 05/14/2019 22:47 EST by BORIS OVALLE, Director Of Property Management-Nursing Intervention Information: acetaminophen Performed by BORIS OVALLE, Director Of Property Management-Nursing on 05/14/2019 21:47:00 EST acetaminophen,1000mg Oral Pain Assessment Pain Assessment : Follow-up assessment Pain Scale Goal : 4 Pain Scale Used : FACES Pain Intervention, Drug : Medicated Pain Improved by Intervention : Yes BORIS OVALLE, Director Of Property Management-Nursing - 05/14/2019 22:54 EST Pain Scale Intensity : 3 BORIS OVALLE, Director Of Property Management-Nursing - 05/14/2019 22:54 EST Image 4 - Images currently included in the form version of this document have not been included in the text rendition version of the form. documented in this encounter Plan of Treatment Not on file documented as of this encounter Visit Diagnoses Not on filedocumented in this encounter
--- OUTSIDE RECORDS SUMMARY | 2025-01-05 14:51 | XMS_ITS | Encounter Summary ---
Author Organization [employer] ([place], [place], [place], [place]) Address [address] [place] [address] Care Team Providers Care Regulatory Manager Name Role Phone Unavailable Primary Care Provider Unavailabl e Encounter Details Date Type Department Care Team (Late st Contact Info) Description 05/12/2019 Transcribed Document [facility] [place] Family Medicine [address] [place] [address] ProviderLexi MD [address] [place] [address] Social History Tobacco Use Types [...] - Lexi ProviderMD - 05/12/2019 10:29 AM RECYCLE DRIVER KAYE Main OR IntraOp Summary Primary Physician: ROSIO JUDD MD-ORT Finalized Date/Time: 05/15/19 10:45:27 Pt. Name: TAY FONSECA Brittany /Sex: 1945 Female Med Rec #: [id number] Physician: ROSIO JUDD MD-ORT Financial #: [id number] Pt. Type: I Room/Bed: [facility]/ Admit/Disch: 05/13/19 09:44:00 - Institution: [facility] IntraOp Case Attendance Entry 1 Entry 2 Entry 3 Case Attendee ROSIO JUDD RENFROE, REBECCA, Biery, Jordyn A RN -ORT BRIM STRETCHING MACHINE OPERATOR-ANS Role Performed Surgeon/Proceduralist, BRIM STRETCHING MACHINE OPERATOR/Nurse Punch Box Tender Floatman, First First Time In 05/12/19 10:26:00 05/12/19 [...] 6 Case Attendee Juve Stubbs, Lelo Valenzuela, Engraver Wood Role Performed Scrub, First Scrub, Second Assistive [...] QIAN LÓPEZ, PAC OTHER, ATTENDEE Role Performed Level Glass Forming Machine Operator, First Physician social media assistant Vendor Time In 05/12/19 09:56:00 05/12/19 [...] Attendee DRAKE SALINAS SUSAN, RN Role Performed Security Control Center Operator Floatman, Second Time In 05/12/19 09:56:00 05/12/19 11:31:00 Time Out 05/12/19 11:27:00 05/12/19 11:51:00 Procedure Hip Total Anterior Hip Total Anterior Approach Approach Other Attendee Superficial Wound Closed By: Last Modified By: Gutierrez Pena RN Biery, Jordyn A, RN 05/12/19 11:51:47 05/12/19 11:51:47 [facility] IntraOp Case Attendance Audit 05/12/19 11:51:47 Director Prison: JUAN C Modifier: JUAN C 1 <*> [...] Procedure Hip Total Anterior Approach 05/12/19 11:45:43 Director Prison: JUAN C Modifier: JUAN C 3 <+> Time Out 3 <*> Procedure Hip Total Anterior Approach <+> 11 Case Attendee <+> 11 Role Performed <+> 11 Time In <+> 11 Procedure 05/12/19 11:27:30 Director Prison: JUAN C Modifier: JUAN C 1 <+> Time Out 1 <*> Procedure Hip Total Anterior Approach 5 <+> Time Out 5 <*> Procedure Hip Total Anterior Approach 9 <+> Time Out 9 <*> Procedure Hip Total Anterior Approach 10 <+> Time Out 10 <*> Procedure Hip Total Anterior Approach 05/12/19 11:15:53 Director Prison: JUAN C Modifier: JUAN C 6 <+> Time Out 6 <*> Procedure Hip Total Anterior Approach 7 <+> Time Out 7 <*> Procedure Hip Total Anterior Approach 05/12/19 10:55:31 Director Prison: JUAN C Modifier: JORDYNBLAND 1 <*> Time In 05/12/19 09:56:00 1 <*> Procedure Hip Total Anterior Approach 05/12/19 10:55:17 Director Prison: JUAN C Modifier: JORDYNBLAND 1 <+> Time [...] SJE IntraOp Case Times Audit 05/12/19 11:51:43 Director Prison: JUAN C Modifier: JORDYNBLAND <+> 1 Out Room Time <+> 1 Stop Time 05/12/19 11:45:46 Director Prison: GUTIERREZBLRICCI Modifier: JORDYNBLAND <+> 1 Stop Time 05/12/19 10:29:48 Director Prison: JUAN C Modifier: JORDYNBLAND <+> 1 Start [...] [facility]JE IntraOp Counts Verification Audit 05/12/19 11:23:37 Director Prison: JUAN C Modifier: JUAN C <+> 2 [...] Cultures and Spec Summary Audit 05/12/19 09:48:34 Director Prison: JUAN C Modifier: JUAN C <+> 1 [...] Method of Drainage Compression Last Modified By: Gutirerez Pena RN 05/12/19 10:20:43 SJE IntraOp Dressing [...] RN 05/12/19 09:48:31 SJE IntraOp General Case Brick Catcher 1 Case Information OR OR 10 SJE [...] SZ STEM HIP ORIGIN SZ 13 Identification [id number] [id number] Description Implant Quantity 1 1 1 Implant Site RIGHT HIP RIGHT HIP RIGHT HIP Implant Identification Model Number Implant Identification Serial Number Implant [id number] Identification Lot Number Implant [employer] Paxeon Reconstruction Paxeon Reconstruction Identification [facility] Supervising Broker Name: Implant [id number] Identification Catalog Number Implant Size Implant Has an Yes Yes Yes Expiration Date Implant Expiration 12/16/23 04/17/24 01/16/24 Date Wasted Radioactive Material Time Implanted Tissue Implant Continue for Tissue Implant Documentation Tissue Identification Number Graft Prep Per Supervising Broker Instructions: Tissue Preparation Method: Reconstitution Solution: Reconstitution Solution Lot Number Reconstitution Solution Expiration Date: Thawing Solution Thawing Solution Lot Number Thawing Solution Expiration Date Preparation Materials, Other Preparation Materials, Other Lot Number Preparation Materials, Other Expiration Date Tissue Prepared/Processed By Supervising Broker Paperwork Completed Implant Type Comment Last Modified By: Gutierrez Pena RN Biery, Jordyn A, RN Biery, Jordyn A, RN 05/12/19 10:55:07 05/12/19 10:55:07 05/12/19 11:19:51 Entry 4 Type Implant (Synthetic) Implant Log Implant Type Hardware Tissue Implant Type Implant HEAD FEM CERC SZ 36MM Identification [id number] Description Implant Quantity 1 Implant Site RIGHT HIP Implant Identification Model Number Implant Identification Serial Number Implant [id number] Identification Lot Number Implant Paxeon Reconstruction Identification Supervising Broker Name: Implant [id number] Identification Catalog Number Implant Size Implant Has an Yes Expiration Date Implant Expiration 04/17/24 Date Wasted Radioactive Material Time Implanted Tissue Implant Continue for Tissue Implant Documentation Tissue Identification Number Graft Prep Per Supervising Broker Instructions: Tissue Preparation Method: Reconstitution Solution: Reconstitution Solution Lot Number Reconstitution Solution Expiration Date: Thawing Solution Thawing Solution Lot Number Thawing Solution Expiration Date Preparation Materials, Other Preparation Materials, Other Lot Number Preparation Materials, Other Expiration Date Tissue Prepared/Processed By Supervising Broker Paperwork Completed Implant Type Comment Last Modified By: Gutierrez Pena RN 05/12/19 11:19:51 SJE IntraOp Implant Log Audit 05/12/19 11:19:51 Director Prison: JUAN C Modifier: JUAN C <+> 3 Implant Identification Description <+> 3 Implant Identification Lot Number <+> 3 Implant Identification Supervising Broker Name: <+> 3 Implant Expiration Date <+> 3 Implant Identification Catalog Number <+> 4 Implant Identification Description <+> 4 Implant Identification Lot Number <+> 4 Implant Identification Supervising Broker Name: <+> 4 Implant Expiration Date <+> 4 Implant Identification Catalog Number 05/12/19 10:55:07 Director Prison: JUAN C Modifier: JUAN C <+> 1 Implant Identification Description <+> 1 Implant Identification Lot Number <+> 1 Implant Identification Supervising Broker Name: <+> 1 Implant Expiration Date <+> 1 Implant Identification Catalog Number <+> 2 Implant Identification Description <+> 2 Implant Identification Lot Number <+> 2 Implant Identification Supervising Broker Name: <+> 2 Implant Expiration Date <+> [...] vancomycin 1Gm vial - CLONIDINE-10ML 1000MG/10 ML [id number] Combo Med List 1 - Combo Med [...] 1% w/ epinephrine 1:100,000 20ml vial - [id number] Combo Med List 2 - Combo Med [...] SJE IntraOp Medication Admin Audit 05/12/19 09:48:55 Director Prison: JUAN C Modifier: JUAN C <+> 5 [...] LINN CSA, SAMUEL MONTERO, JEANETH-ANS, Lelo Siddiqi, Engraver Wood, Gutierrez Pena, RN, FRANKY URRUTIA Position Verified [...] Warming Measures Yes Taken Last Modified By: Guiterrez Pena RN 05/12/19 10:22:20 SJE Intra Op Sign Out Entry 1 RN Confirmation Surgical Yes Procedure(s) Identified Instrument, Sponge Yes and Sharps Counts Correct/Documented Equipment Problems Yes Documented Specimen Labeled Yes Correctly Urinary Catheter N/A Documented in IView [place] Patient Yes Recovery Concerns Reviewed with Anesthesia [...] Intra Op Sign Out Audit 05/12/19 11:51:55 Director Prison: JUAN C Modifier: JUAN C 1 <*> [...] SJE IntraOp Skin Prep Audit 05/12/19 10:23:06 Director Prison: JUAN C Modifier: JUAN C 1 <+> [...] SJE IntraOp Surgical Procedures Audit 05/12/19 11:48:01 Director Prison: JUAN C Modifier: JUAN C <+> 1 Start <+> 1 Stop SJE IntraOp Temp Regulation Devices Entry 1 Temp Regulation Temperature Forced Air Warming Regulation Device device Temperature Upper body Regulation Site Temperature WINSTON, SAMUEL, Regulation Device BRIM STRETCHING MACHINE OPERATOR-ANS Applied by Last Modified By: Gutierrez Pena [...] SJE IntraOp Time Out Audit 05/12/19 10:55:43 Director Prison: JUAN C Modifier: JUAN C 1 <+> Time Out Pause Time 1 <*> Procedure to be Performed Hip Total Anterior Approach SJE IntraOp X-Ray and Images Entry 1 X-Ray/Imaging Type Fluoroscopy Fluoroscopy Type C-Arm Site RIGHT HIP Eeg Technologist Name DRAKE SALINAS Protective Devices Yes Used Last Modified By: Gutierrez Pena RN 05/12/19 10:23:44 Case Comments <None> Finalized By: Mirna Valderrama RN Document Signatures Signed By: Gutierrze Pena RN 05/12/19 12:01 Gutierrez Pena RN 05/14/19 17:04 Mirna Valderrama RN 05/15/19 10:45 Unfinalized History Date/Time Username Reason for Unfinalizing Freetext Reason for Unfinalizing 05/14/19 17:03 JUAN C Modify Pick List 05/15/19 10:43 NIRMAL Correct Billing Electronically signed by Angelika [facility] Conversion Communication Equipment Mechanic Cerner at 07/02/2022 5:08 PM CDT documented in this encounter Plan of Treatment Not on file documented as of this encounter Visit Diagnoses Not on filedocumented in this encounter
--- OUTSIDE RECORDS SUMMARY | 2025-01-05 14:51 | XMS_ITS | Encounter Summary ---
Author Organization [employer] ([place], [place], [place], [place]) Address [address] [place] [address] Care Team Providers Care Referral Nurse Name Role Phone Unavailable Primary Care Provider Unavailabl e Encounter Details Date Type Department Care Team (Late st Contact Info) Description 05/14/2019 Transcribed Document [facility] [place] Family Medicine [address] [place] [address] ProviderLexi MD [address] [place] [address] Social History Tobacco Use Types [...] - Historical ProviderMD - 05/14/2019 5:00 AM RISK CONSULTANT Chart Check - Review Order Profile Entered On: 05/14/2019 6:35 EST Performed On: 05/14/2019 5:00 EST by BORIS OVALLE, Content Analyst-Nursing Chart Check Powerplans Initiated/Discontinued as Appropriate : Yes All Active Orders Reviewed : Yes BORIS OVALLE, Content Analyst-Nursing - 05/14/2019 6:34 EST Electronically signed by Angelika [facility] Conversion Multisensor Intelligence Officer Cerner at 07/02/2022 4:55 PM CDT documented in this encounter Plan of Treatment Not on file documented as of this encounter Visit Diagnoses Not on filedocumented in this encounter
--- OUTSIDE RECORDS SUMMARY | 2025-01-05 14:51 | XMS_ITS | Encounter Summary ---
Author Organization [employer] ([place], [place], [place], [place]) Address [address] [place] [address] Care Team Providers Care Dyehouse Worker Name Role Phone Unavailable Primary Care Provider Unavailabl e Encounter Details Date Type Department Care Team (Late st Contact Info) Description 05/12/2019 Transcribed Document [facility] [place] [facility] [place] [address] ProviderLexi MD [address] [place] [address] Social History Tobacco Use Types [...] - Historical ProviderMD - 05/12/2019 7:21 AM FREIGHT LOADER Patient: TAY FONSECA Age: 73 Years Sex: [...]
--- OUTSIDE RECORDS SUMMARY | 2025-01-05 14:51 | XMS_ITS | Encounter Summary ---
Author Organization [employer] ([place], [place], [place], [place]) Address [address] [place] [address] Care Team Providers Care Tool Sharpener Name Role Phone Unavailable Primary Care Provider Unavailabl e Encounter Details Date Type Department Care Team (Late st Contact Info) Description 05/14/2019 Transcribed Document [facility] [place] Family Medicine [address] [place] [address] ProviderLexi MD [address] [place] [address] Social History Tobacco Use Types [...] - Historical ProviderMD - 05/14/2019 2:00 AM MULTIMEDIA ASSISTANT Drill Doctor Details Entered On: 05/14/2019 1:34 EST Performed On: 05/14/2019 2:00 EST by BORIS OVALLE, Patient Assessment Coordinator-Nursing Order Details Transport Mode Order Detail : Wheelchair Isolation Precautions Order Detail : Standard Precautions Order Detail : N/A IV Order Detail : 1 Oxygen Order Detail : 0 Nurse Collect Order Detail : 0 Lift/Transfer : Minimal Central Line Order Detail : No Room Service : Appropriate Arterial Line : No BORIS OVALLE, Patient Assessment Coordinator-Nursing - 05/14/2019 1:34 EST documented in this encounter Plan of Treatment Not on file documented as of this encounter Visit Diagnoses Not on filedocumented in this encounter
--- OUTSIDE RECORDS SUMMARY | 2025-01-05 14:51 | XMS_ITS | Encounter Summary ---
Author Organization [employer] ([place], [place], [place], [place]) Address [address] [place] [address] Care Team Providers Care Licensed Audiologist Name Role Phone Unavailable Primary Care Provider Unavailabl e Encounter Details Date Type Department Care Team (Late st Contact Info) Description 05/12/2019 Transcribed Document [facility] [place] [address] [place] [address] ProviderLexi MD [address] [place] [address] Social History Tobacco Use Types [...] - Historical ProviderMD - 05/12/2019 2:48 PM FRONT DESK HOST Treatment Intervention, OT Entered On: 05/16/2019 14:44 [...] Role of Occupational Therapy : Verbalizes understanding ARMON SORENSON OTR/Brittany - 05/16/2019 14:36 EST Plan of Care, OT OT Tx Plan/Goals Established w Patient : Yes PIYUSHRAMON GARCIA OTR/Brittany - 05/16/2019 14:36 EST Sales Promotion Officer Goals, OT Other LTG Grid Goal #1 [...]
--- OUTSIDE RECORDS SUMMARY | 2025-01-05 14:51 | XMS_ITS | Encounter Summary ---
Author Organization [employer] ([place], [place], [place], [place]) Address [address] [place] [address] Care Team Providers Care Medical Insurance Coder Name Role Phone Unavailable Primary Care Provider Unavailabl e Encounter Details Date Type Department Care Team (Late st Contact Info) Description 05/12/2019 Transcribed Document [facility] [place] Family Medicine [address] [place] [address] ProviderLexi MD [address] [place] [address] Social History Tobacco Use Types [...] - Historical ProviderMD - 05/12/2019 12:53 PM [facility] Evaluation, Occupational Therapy Entered On: 05/12/2019 14:47 [...] ESPERANZA REYNA OTR/Brittany - 05/12/2019 14:33 EST Penitentiary Goals, OT Other LTG Grid Goal #1 [...] 05/12/2019 14:33 EST Electronically signed by Interface, [facility] Conversion Manufacturing Tech Cerner at 07/02/2022 4:58 PM CDT documented in this encounter Plan of Treatment Not on file documented as of this encounter Visit Diagnoses Not on filedocumented in this encounter
--- OUTSIDE RECORDS SUMMARY | 2025-01-05 14:51 | XMS_ITS | Encounter Summary ---
Author Organization [employer] ([place], [place], [place], [place]) Address [address] [place] [address] Care Team Providers Care Slot Floor Supervisor Name Role Phone Unavailable Primary Care Provider Unavailabl e Encounter Details Date Type Department Care Team (Late st Contact Info) Description 05/12/2019 Transcribed Document [facility] [place] Family Medicine [address] [place] [address] ProviderLexi MD [address] [place] [address] Social History Tobacco Use Types [...] - Historical ProviderMD - 05/12/2019 9:28 AM MOLDER SETTER Event Note Entered On: 05/12/2019 9:29 EST [...]
--- OUTSIDE RECORDS SUMMARY | 2025-01-05 14:51 | XMS_ITS | Encounter Summary ---
Author Organization [employer] ([place], [place], [place], [place]) Address [address] [place] [address] Care Team Providers Care Pipeline Controller Name Role Phone Unavailable Primary Care Provider Unavailabl e Encounter Details Date Type Department Care Team (Late st Contact Info) Description 05/13/2019 Transcribed Document [facility] [place] Family Medicine [address] [place] [address] ProviderLexi MD [address] [place] [address] Social History Tobacco Use [...] - Historical ProviderMD - 05/13/2019 8:00 AM POULTRY FEED SUPERVISOR Pain Assessment Entered On: 05/13/2019 9:18 EST [...]
--- OUTSIDE RECORDS SUMMARY | 2025-01-05 14:52 | XMS_ITS | Encounter Summary ---
Author Organization [employer] ([place], [place], [place], [place]) Address [address] [place] [address] Care Team Providers Care Shredding Floor Equipment Operator Name Role Phone Unavailable Primary Care Provider Unavailabl e Encounter Details Date Type Department Care Team (Late st Contact Info) Description 05/12/2019 Transcribed Document [facility] [place] [address] [place] [address] ProviderLexi MD [address] [place] [address] Social History Tobacco Use Types [...] - Historical ProviderMD - 05/12/2019 9:00 AM AUTOMATIC LATHE OPERATOR Event Note Entered On: 05/12/2019 9:12 EST [...]
--- OUTSIDE RECORDS SUMMARY | 2025-01-05 14:52 | XMS_ITS | Encounter Summary ---
Author Organization [employer] ([place], [place], [place], [place]) Address [address] [place] [address] Care Team Providers Care Sr. Manager Name Role Phone Unavailable Primary Care Provider Unavailabl e Encounter Details Date Type Department Care Team (Late st Contact Info) Description 05/13/2019 Transcribed Document [facility] [place] Family Medicine [address] [place] [address] ProviderLexi MD [address] [place] [address] Social History Tobacco Use Types [...] - Historical ProviderMD - 05/13/2019 10:06 AM TRAFFIC LINE PAINTER On Going Discharge Planning Entered On: 05/13/2019 10:07 EST Performed On: 05/13/2019 10:06 EST by SANDRA DEL ANGEL, Care Management-Medical Reception Specialist Care Management Progress Note Discharge Arrangements : Patient Post-Acute Information Patient Name: TAY FONSECA Gender: Female : [birth year] Age: 73 Years No Post-Acute Placement(s) Listed No Post-Acute Service(s) Listed No [place] Referral(s) Listed Discharge Options Discussed with Patient : Short term rehabilitation SANDRA DEL ANGEL, Care Management-Medical Reception Specialist - 05/13/2019 10:06 EST Narrative Progress Note Narrative Progress Note : Pt has been changed to in pt status per [facility]. referrals sent out via [facility] per pts choice. SANDRA DEL ANGEL, Care Management-Medical Reception Specialist - 05/13/2019 10:06 EST documented in this encounter Plan of Treatment Not on file documented as of this encounter Visit Diagnoses Not on filedocumented in this encounter
--- OUTSIDE RECORDS SUMMARY | 2025-01-05 14:52 | XMS_ITS | Data Portability ---
Author Organization [facility] [place] & SULEIMAN Stark ADMIN Address [address] [place] [id number] Care Team Providers Care Energy Advisor Name Role Phone ZACH MARINADY Primary Care Provider Assessment No assessment recorded. Plan of Treatment Reminders Order Date Submit Date Provider Last Modified By Organization Details Last Modified Time Details Appointments OV EST 30 2024 09:00A M Wilian Olsen PA-C Not available Not available Not available Lab CBC w/ auto diff 2024 025 OBI Not available 12/09/2024 09:34:16 CMP, serum or plasma 2024 025 OBI Not available 12/09/2024 09:46:14 ldh, serum or plasma 2024 025 OBI Not available 12/09/2024 10:09:06 CBC w/ auto diff 2024 025 OBI Not available 09/02/2024 10:42:36 CMP, serum or plasma 2024 025 OBI Not available 09/02/2024 10:28:32 ldh, serum or plasma 2024 025 OBI Not available 09/02/2024 10:46:50 CBC w/ auto diff 2024 025 OBI Not available 06/02/2024 10:02:27 CMP, serum or plasma 2024 025 OBI Not available 06/02/2024 10:10:56 Referral dermatolo gist referral [email or web address] [facility], [address] [place] [address], [id number], 01/30/2024 09:16:39 Procedures None recorded. Surgeries None recorded. Imaging CT, chest + abdomen + pelvis, w/ contrast - iv contrast only [address] (Centralized Scheduling), [address], [place], [address], 12/31/2024 08:07:30 CT, chest + abdomen + pelvis, w/ contrast - iv contrast only. [address] (Centralized Scheduling), [address], [place], [address], 12/29/2024 15:25:51 CT, chest + abdomen + pelvis, w/ contrast [address] (Centralized Scheduling), [address], [place], [address], 06/26/2024 09:24:41 Medication Orders None recorded. Patient TargetsNo targets recorded. Patient InstructionsNo instructions recorded. Reason for Referral Product/Industry Consultant Referral for L ocalized eruption of skin Referring Physician: Wilian Olsen, Hematology/Oncology, Encounter Date: 12/03/2023 Results Created Date Observation Date Name Description Value Unit Range Abnormal Flag Note LastModifiedBy Organization Detail LastModifiedTime 09/11/1909/11/2023 CBC AUTO W DIFF WBC 8.3 K/uL 4.0-10 .5 Not Available [facility] ([facility]) [address], [place], [address], 09/11/2023 09:44:37 09/11/1909/11/2023 CBC AUTO W DIFF RBC 4.9 M/mm3 4.2-6. 4 Not Available [facility] ([facility]) [address], [place], [address], 09/11/2023 09:44:37 09/11/19 24 09/11/2023 CBC AUTO W DIFF HGB 14.5 gm/dL 12.5-1 6.0 Not Available [facility] ([facility]) [address] , [place], [address], 09/11/2023 09:44:37 09/11/19 24 09/11/2023 CBC AUTO W DIFF HCT 44.1 % 37.0-4 7.0 Not Available [facility] ([facility]) [address] , [place], [address], 09/11/2023 09:44:37 09/11/19 24 09/11/2023 CBC AUTO W DIFF MCV 89.5 fL 78-100 Not Available [facility] ([facility]) [address] , [place], [address], 09/11/2023 09:44:37 09/11/19 24 09/11/2023 CBC AUTO W DIFF MCH 29.4 pg 27-31 Not Available [facility] ([facility]) [address] , [place], [address], 09/11/2023 09:44:37 09/11/19 24 09/11/2023 CBC AUTO W DIFF MCHC 32.9 g/dL 32-36 Not Available [facility] ([facility]) [address] , [place], [address], 09/11/2023 09:44:37 09/11/19 24 09/11/2023 CBC AUTO W DIFF RDW 13.5 % 11.5-1 4.0 Not Available [facility] ([facility]) [address] [place], [address], 09/11/2023 09:44:37 09/11/19 24 09/11/2023 CBC AUTO W DIFF platelet count 253 K/uL 150-45 0 Not Available [facility] ([facility]) [address] [place], [address], 09/11/2023 09:44:37 09/11/19 24 09/11/2023 CBC AUTO W DIFF MPV 10.0 fL 6-9.5 high Not Available [facility] ([facility]) [address], [place], [address], 09/11/2023 09:44:37 09/11/19 24 09/11/2023 CBC AUTO W DIFF neutrophil% 72.4 % 43-65 high Not Available [facility] ([facility]) [address] [facility], [place], [address], 09/11/2023 09:44:37 09/11/19 24 09/11/2023 CBC AUTO W DIFF lymphocyte% 12.4 % 20.5-4 5.5 low Not Available [facility] ([facility]) [address] [place], [address], 09/11/2023 09:44:37 09/11/19 24 09/11/2023 CBC AUTO W DIFF monocyte% 8.9 % 5.5-11 .7 Not Available [facility] ([facility]) [address] [place], [address], 09/11/2023 09:44:37 09/11/19 24 09/11/2023 CBC AUTO W DIFF eosinophil% 4.8 % 0.9-2. 9 high Not Available [facility] ([facility]) [address] [place], [address], 09/11/2023 09:44:37 09/11/19 24 09/11/2023 CBC AUTO W DIFF basophil% 0.8 % 0.2-1. 0 Not Available [facility] ([facility]) [address] [place], [address], 09/11/2023 09:44:37 09/11/19 24 09/11/2023 CBC AUTO W DIFF immature granulocytes % 0.7 % 0.0-0. 8 Not Available [facility] ([facility]) [address] , [place], [address], 09/11/2023 09:44:37 09/11/19 24 09/11/2023 CBC AUTO W DIFF nucleated red blood cells % 0.0 % Not Available [facility] ([facility]) [address], [place], [address], 09/11/2023 09:44:37 09/11/19 24 09/11/2023 CBC AUTO W DIFF neutrophil# 6.0 K/uL 2.2-4. 8 high Not Available [facility] ([facility]) [address], [place], [address], 09/11/2023 09:44:37 09/11/19 24 09/11/2023 CBC AUTO W DIFF lymphocyte# 1.0 cell/ mcL 1.3-2. 9 low Not Available [facility] ([facility]) [address], [place], [address], 09/11/2023 09:44:37 09/11/19 24 09/11/2023 CBC AUTO W DIFF monocyte# 0.7 cell/ mcL 0.3-0. 8 Not Available [facility] ([facility]) [address], [place], [address], 09/11/2023 09:44:37 09/11/19 24 09/11/2023 CBC AUTO W DIFF eosinophil# 0.4 cell/ mcL 0-0.2 high Not Available [facility] ([facility]) [address] [place], [address], 09/11/2023 09:44:37 09/11/19 24 09/11/2023 CBC AUTO W DIFF basophil# 0.1 cell/ mcL 0.0-1. 0 Not Available [facility] ([facility]) [address] [place], [address], 09/11/2023 09:44:37 09/11/19 24 09/11/2023 CBC AUTO W DIFF immature gramulocytes # 0.06 K/uL Not Available [facility] ([facility]) [address] , [place], [address], 09/11/2023 09:44:37 09/11/19 24 09/11/2023 CBC AUTO W DIFF nucleated red blood cells # 0.00 K/uL Not Available [facility] ([facility]) [address], [place], [address], 09/11/2023 09:44:37 09/11/19 24 09/11/2023 CBC AUTO W DIFF manual differential NO Not Available [facility] ([facility]) [address] , [place], [address], 09/11/2023 09:44:37 09/11/19 24 09/11/2023 COMP METAB OLIC PANEL sodium 139 mmol/ L 136-14 5 Not Available [facility] ([facility]) [address] [place], [address], 09/11/2023 10:06:50 09/11/19 24 09/11/2023 COMP METAB OLIC PANEL potassium 4.0 mmol/ L 3.6-5. 0 Not Available [facility] ([facility]) [address] [place], [address], 09/11/2023 10:06:50 09/11/19 24 09/11/2023 COMP METAB OLIC PANEL chloride 99 mmol/ L 98-107 Not Available [facility] ([facility]) [address] [place], [address], 09/11/2023 10:06:50 09/11/19 24 09/11/2023 COMP METAB OLIC PANEL carbon dioxide 32.0 mmol/ L 21.0-3 2.0 Not Available [facility] ([facility]) [address], [place], [address], 09/11/2023 10:06:50 09/11/19 24 09/11/2023 COMP METAB OLIC PANEL anion gap 12.0 Not Available [facility] ([facility]) [address], [place], [address], 09/11/2023 10:06:50 09/11/19 24 09/11/2023 COMP METAB OLIC PANEL glucose 140 mg/dL 70-120 high Not Available [facility] ([facility]) [address], [place], [address], 09/11/2023 10:06:50 09/11/19 24 09/11/2023 COMP METAB OLIC PANEL BUN 15 mg/dL 7-18 Not Available [facility] ([facility]) [address], [place], [address], 09/11/2023 10:06:50 09/11/19 24 09/11/2023 COMP METAB OLIC PANEL creatinine 1.1 mg/dL 0.6-1. 3 Not Available [facility] ([facility]) [address] , [place], [address], 09/11/2023 10:06:50 09/11/19 24 09/11/2023 COMP METAB OLIC PANEL glomerular filtration rate TNP mlper min 60- TEST NOT PERFO RMED GFR has only been valid ated from 18 to 70 years of age. Not Available [facility] ([facility]) [address] , [place], [address], 09/11/2023 10:06:50 09/11/19 24 09/11/2023 COMP METAB OLIC PANEL total protein 7.2 g/dL 6.4-8. 2 Not Available [facility] ([facility]) [address] [place], [address], 09/11/2023 10:06:50 09/11/19 24 09/11/2023 COMP METAB OLIC PANEL albumin 4.1 g/dL 3.4-5. 0 Not Available [facility] ([facility]) [address] , [place], [address], 09/11/2023 10:06:50 09/11/19 24 09/11/2023 COMP METAB OLIC PANEL globulin 3.1 Not Available [facility] ([facility]) [address], [place], [address], 09/11/2023 10:06:50 09/11/19 24 09/11/2023 COMP METAB OLIC PANEL alb/glob ratio 1.3 0.7-2 Not Available [facility] ([facility]) [address], [place], [address], 09/11/2023 10:06:50 09/11/19 24 09/11/2023 COMP METAB OLIC PANEL calcium 9.6 mg/dL 8.5-10 .5 Not Available [facility] ([facility]) [address], [place], [address], 09/11/2023 10:06:50 09/11/19 24 09/11/2023 COMP METAB OLIC PANEL bilirubin total 0.50 mg/dL 0.10-1 .00 Not Available [facility] ([facility]) [address], [place], [address], 09/11/2023 10:06:50 09/11/19 24 09/11/2023 COMP METAB OLIC PANEL AST (SGOT) 12 U/L 0-37 Not Available [facility] ([facility]) [address], [place], [address], 09/11/2023 10:06:50 09/11/19 24 09/11/2023 COMP METAB OLIC PANEL ALT (SGPT) 17 U/L 0-65 Not Available [facility] ([facility]) [address], [place], [address], 09/11/2023 10:06:50 09/11/19 24 09/11/2023 COMP METAB OLIC PANEL alk phosphatase 112 U/L 46-116 Not Available [facility] ([facility]) [address], [place], [address], 09/11/2023 10:06:50 12/03/19 24 12/03/2023 CBC AUTO W DIFF WBC 8.1 K/uL 4.0-10 .5 Not Available [facility] ([facility]) [address], [place], [address], 12/03/2023 09:59:25 12/03/19 24 12/03/2023 CBC AUTO W DIFF RBC 4.5 M/mm3 4.2-6. 4 Not Available [facility] ([facility]) [address], [place], [address], 12/03/2023 09:59:25 12/03/19 24 12/03/2023 CBC AUTO W DIFF HGB 13.3 gm/dL 12.5-1 6.0 Not Available [facility] ([facility]) [address], [place], [address], 12/03/2023 09:59:25 12/03/19 24 12/03/2023 CBC AUTO W DIFF HCT 40.8 % 37.0-4 7.0 Not Available [facility] ([facility]) [address], [place], [address], 12/03/2023 09:59:25 12/03/19 24 12/03/2023 CBC AUTO W DIFF MCV 90.5 fL 78-100 Not Available [facility] ([facility]) [address], [place], [address], 12/03/2023 09:59:25 12/03/19 24 12/03/2023 CBC AUTO W DIFF MCH 29.5 pg 27-31 Not Available [facility] ([facility]) [address], [place], [address], 12/03/2023 09:59:25 12/03/19 24 12/03/2023 CBC AUTO W DIFF MCHC 32.6 g/dL 32-36 Not Available [facility] ([facility]) [address], [place], [address], 12/03/2023 09:59:25 12/03/19 24 12/03/2023 CBC AUTO W DIFF RDW 13.5 % 11.5-1 4.0 Not Available [facility] ([facility]) [address], [place], [address], 12/03/2023 09:59:25 12/03/19 24 12/03/2023 CBC AUTO W DIFF platelet count 234 K/uL 150-45 0 Not Available [facility] ([facility]) [address], [place], [address], 12/03/2023 09:59:25 12/03/19 24 12/03/2023 CBC AUTO W DIFF MPV 9.8 fL 6-9.5 high Not Available [facility] ([facility]) [address], [place], [address], 12/03/2023 09:59:25 12/03/19 24 12/03/2023 CBC AUTO W DIFF neutrophil% 66.9 % 43-65 high Not Available [facility] ([facility]) [address], [place], [address], 12/03/2023 09:59:25 12/03/19 24 12/03/2023 CBC AUTO W DIFF lymphocyte% 16.2 % 20.5-4 5.5 low Not Available [facility] ([facility]) [address] [place], [address], 12/03/2023 09:59:25 12/03/19 24 12/03/2023 CBC AUTO W DIFF monocyte% 9.4 % 5.5-11 .7 Not Available [facility] ([facility]) [address], [place], [address], 12/03/2023 09:59:25 12/03/19 24 12/03/2023 CBC AUTO W DIFF eosinophil% 6.1 % 0.9-2. 9 high Not Available [facility] ([facility]) [address], [place], [address], 12/03/2023 09:59:25 12/03/19 24 12/03/2023 CBC AUTO W DIFF basophil% 0.7 % 0.2-1. 0 Not Available [facility] ([facility]) [address] [place], [address], 12/03/2023 09:59:25 12/03/19 24 12/03/2023 CBC AUTO W DIFF immature granulocytes % 0.7 % 0.0-0. 8 Not Available [facility] ([facility]) [address] [place], [address], 12/03/2023 09:59:25 12/03/19 24 12/03/2023 CBC AUTO W DIFF nucleated red blood cells % 0.0 % Not Available [facility] ([facility]) [address] [place], [address], 12/03/2023 09:59:25 12/03/19 24 12/03/2023 CBC AUTO W DIFF neutrophil# 5.4 K/uL 2.2-4. 8 high Not Available [facility] ([facility]) [address] [place], [address], 12/03/2023 09:59:25 12/03/19 24 12/03/2023 CBC AUTO W DIFF lymphocyte# 1.3 cell/ mcL 1.3-2. 9 Not Available [facility] ([facility]) [address] , [place], [address], 12/03/2023 09:59:25 12/03/19 24 12/03/2023 CBC AUTO W DIFF monocyte# 0.8 cell/ mcL 0.3-0. 8 Not Available [facility] ([facility]) [address] , [place], [address], 12/03/2023 09:59:25 12/03/19 24 12/03/2023 CBC AUTO W DIFF eosinophil# 0.5 cell/ mcL 0-0.2 high Not Available [facility] ([facility]) [address] , [place], [address], 12/03/2023 09:59:25 12/03/19 24 12/03/2023 CBC AUTO W DIFF basophil# 0.1 cell/ mcL 0.0-1. 0 Not Available [facility] ([facility]) [address] , [place], [address], 12/03/2023 09:59:25 12/03/19 24 12/03/2023 CBC AUTO W DIFF immature gramulocytes # 0.06 K/uL Not Available [facility] ([facility]) [address], [place], [address], 12/03/2023 09:59:25 12/03/19 24 12/03/2023 CBC AUTO W DIFF nucleated red blood cells # 0.00 K/uL Not Available [facility] ([facility]) [address] [place], [address], 12/03/2023 09:59:25 12/03/19 24 12/03/2023 CBC AUTO W DIFF manual differential NO Not Available [facility] ([facility]) [address] [place], [address], 12/03/2023 09:59:25 12/03/19 24 12/03/2023 COMP METAB OLIC PANEL sodium 140 mmol/ L 136-14 5 Not Available [facility] ([facility]) [address] , [place], [address], 12/03/2023 10:38:18 12/03/19 24 12/03/2023 COMP METAB OLIC PANEL potassium 3.5 mmol/ L 3.6-5. 0 low Not Available [facility] ([facility]) [address] , [place], [address], 12/03/2023 10:38:18 12/03/19 24 12/03/2023 COMP METAB OLIC PANEL chloride 100 mmol/ L 98-107 Not Available [facility] ([facility]) [address] , [place], [address], 12/03/2023 10:38:18 12/03/19 24 12/03/2023 COMP METAB OLIC PANEL carbon dioxide 33.6 mmol/ L 21.0-3 2.0 high Not Available [facility] ([facility]) [address] , [place], [address], 12/03/2023 10:38:18 12/03/19 24 12/03/2023 COMP METAB OLIC PANEL anion gap 9.9 Not Available [facility] ([facility]) [address] , [place], [address], 12/03/2023 10:38:18 12/03/19 24 12/03/2023 COMP METAB OLIC PANEL glucose 136 mg/dL 70-120 high Not Available [facility] ([facility]) [address] , [place], [address], 12/03/2023 10:38:18 12/03/19 24 12/03/2023 COMP METAB OLIC PANEL BUN 8 mg/dL 7-18 Not Available [facility] ([facility]) [address], [place], [address], 12/03/2023 10:38:18 12/03/19 24 12/03/2023 COMP METAB OLIC PANEL creatinine 1.0 mg/dL 0.6-1. 3 Not Available [facility] ([facility]) [address], [place], [address], 12/03/2023 10:38:18 12/03/19 24 12/03/2023 COMP METAB OLIC PANEL glomerular filtration rate TNP mlper min 60- TEST NOT PERFO RMED GFR has only been valid ated from 18 to 70 years of age. Not Available [facility] ([facility]) [address], [place], [address], 12/03/2023 10:38:18 12/03/19 24 12/03/2023 COMP METAB OLIC PANEL total protein 6.5 g/dL 6.4-8. 2 Not Available [facility] ([facility]) [address], [place], [address], 12/03/2023 10:38:18 12/03/19 24 12/03/2023 COMP METAB OLIC PANEL albumin 3.5 g/dL 3.4-5. 0 Not Available [facility] ([facility]) [address], [place], [address], 12/03/2023 10:38:18 12/03/19 24 12/03/2023 COMP METAB OLIC PANEL globulin 3.0 Not Available [facility] ([facility]) [address], [place], [address], 12/03/2023 10:38:18 12/03/19 24 12/03/2023 COMP METAB OLIC PANEL alb/glob ratio 1.2 0.7-2 Not Available [facility] ([facility]) [address], [place], [address], 12/03/2023 10:38:18 12/03/19 24 12/03/2023 COMP METAB OLIC PANEL calcium 9.3 mg/dL 8.5-10 .5 Not Available [facility] ([facility]) [address], [place], [address], 12/03/2023 10:38:18 12/03/19 24 12/03/2023 COMP METAB OLIC PANEL bilirubin total 0.40 mg/dL 0.10-1 .00 Not Available [facility] ([facility]) [address], [place], [address], 12/03/2023 10:38:18 12/03/19 24 12/03/2023 COMP METAB OLIC PANEL AST (SGOT) 11 U/L 0-37 Not Available [facility] ([facility]) [address] , [place], [address], 12/03/2023 10:38:18 12/03/19 24 12/03/2023 COMP METAB OLIC PANEL ALT (SGPT) 13 U/L 0-65 Not Available [facility] ([facility]) [address] , [place], [address], 12/03/2023 10:38:18 12/03/19 24 12/03/2023 COMP METAB OLIC PANEL alk phosphatase 114 U/L 46-116 Not Available [facility] ([facility]) [address] , [place], [address], 12/03/2023 10:38:18 03/03/20 24 03/03/2024 CBC AUTO W DIFF WBC 7.1 K/uL 4.0-10 .5 Not Available [facility] ([facility]) [address] , [place], [address], 03/03/2024 09:46:19 03/03/20 24 03/03/2024 CBC AUTO W DIFF RBC 4.7 M/mm3 4.2-6. 4 Not Available [facility] ([facility]) [address], [place], [address], 03/03/2024 09:46:19 03/03/20 24 03/03/2024 CBC AUTO W DIFF HGB 13.5 gm/dL 12.5-1 6.0 Not Available [facility] ([facility]) [address], [place], [address], 03/03/2024 09:46:19 03/03/20 24 03/03/2024 CBC AUTO W DIFF HCT 41.5 % 37.0-4 7.0 Not Available [facility] ([facility]) [address], [place], [address], 03/03/2024 09:46:19 03/03/20 24 03/03/2024 CBC AUTO W DIFF MCV 88.9 fL 78-100 Not Available [facility] ([facility]) [address], [place], [address], 03/03/2024 09:46:19 03/03/20 24 03/03/2024 CBC AUTO W DIFF MCH 28.9 pg 27-31 Not Available [facility] ([facility]) [address], [place], [address], 03/03/2024 09:46:19 03/03/20 24 03/03/2024 CBC AUTO W DIFF MCHC 32.5 g/dL 32-36 Not Available [facility] ([facility]) [address], [place], [address], 03/03/2024 09:46:19 03/03/20 24 03/03/2024 CBC AUTO W DIFF RDW 12.6 % 11.5-1 4.0 Not Available [facility] ([facility]) [address] , [place], [address], 03/03/2024 09:46:19 03/03/20 24 03/03/2024 CBC AUTO W DIFF platelet count 187 K/uL 150-45 0 Not Available [facility] ([facility]) [address] , [place], [address], 03/03/2024 09:46:19 03/03/20 24 03/03/2024 CBC AUTO W DIFF MPV 10.6 fL 6-9.5 high Not Available [facility] ([facility]) [address] , [place], [address], 03/03/2024 09:46:19 03/03/20 24 03/03/2024 CBC AUTO W DIFF neutrophil% 63.2 % 43-65 Not Available [facility] ([facility]) [address] , [place], [address], 03/03/2024 09:46:19 03/03/20 24 03/03/2024 CBC AUTO W DIFF lymphocyte% 16.8 % 20.5-4 5.5 low Not Available [facility] ([facility]) [address] , [place], [address], 03/03/2024 09:46:19 03/03/20 24 03/03/2024 CBC AUTO W DIFF monocyte% 9.4 % 5.5-11 .7 Not Available [facility] ([facility]) [address] , [place], [address], 03/03/2024 09:46:19 03/03/20 24 03/03/2024 CBC AUTO W DIFF eosinophil% 7.6 % 0.9-2. 9 high Not Available [facility] ([facility]) [address] [place], [address], 03/03/2024 09:46:19 03/03/20 24 03/03/2024 CBC AUTO W DIFF basophil% 1.0 % 0.2-1. 0 Not Available [facility] ([facility]) [address] [place], [address], 03/03/2024 09:46:19 03/03/20 24 03/03/2024 CBC AUTO W DIFF immature granulocytes % 2.0 % 0.0-0. 8 high Not Available [facility] ([facility]) [address] [place], [address], 03/03/2024 09:46:19 03/03/20 24 03/03/2024 CBC AUTO W DIFF nucleated red blood cells % 0.0 % Not Available [facility] ([facility]) [address] [facility], [place], [address], 03/03/2024 09:46:19 03/03/20 24 03/03/2024 CBC AUTO W DIFF neutrophil# 4.5 K/uL 2.2-4. 8 Not Available [facility] ([facility]) [address] [place], [address], 03/03/2024 09:46:19 03/03/20 24 03/03/2024 CBC AUTO W DIFF lymphocyte# 1.2 cell/ mcL 1.3-2. 9 low Not Available [facility] ([facility]) [address] [place], [address], 03/03/2024 09:46:19 03/03/20 24 03/03/2024 CBC AUTO W DIFF monocyte# 0.7 cell/ mcL 0.3-0. 8 Not Available [facility] ([facility]) [address] [place], [address], 03/03/2024 09:46:19 03/03/20 24 03/03/2024 CBC AUTO W DIFF eosinophil# 0.5 cell/ mcL 0-0.2 high Not Available [facility] ([facility]) [address] [place], [address], 03/03/2024 09:46:19 03/03/20 24 03/03/2024 CBC AUTO W DIFF basophil# 0.1 cell/ mcL 0.0-1. 0 Not Available [facility] ([facility]) [address], [place], [address], 03/03/2024 09:46:19 03/03/20 24 03/03/2024 CBC AUTO W DIFF immature gramulocytes # 0.14 K/uL Not Available [facility] ([facility]) [address], [place], [address], 03/03/2024 09:46:19 03/03/20 24 03/03/2024 CBC AUTO W DIFF nucleated red blood cells # 0.00 K/uL Not Available [facility] ([facility]) [address], [place], [address], 03/03/2024 09:46:19 03/03/20 24 03/03/2024 CBC AUTO W DIFF manual differential NO Not Available [facility] ([facility]) [address], [place], [address], 03/03/2024 09:46:19 03/03/20 24 03/03/2024 COMP METAB OLIC PANEL sodium 142 mmol/ L 136-14 5 Not Available [facility] ([facility]) [address], [place], [address], 03/03/2024 11:18:32 03/03/20 24 03/03/2024 COMP METAB OLIC PANEL potassium 3.6 mmol/ L 3.6-5. 0 Not Available [facility] ([facility]) [address], [place], [address], 03/03/2024 11:18:32 03/03/20 24 03/03/2024 COMP METAB OLIC PANEL chloride 103 mmol/ L 98-107 Not Available [facility] ([facility]) [address], [place], [address], 03/03/2024 11:18:32 03/03/20 24 03/03/2024 COMP METAB OLIC PANEL carbon dioxide 31.1 mmol/ L 21.0-3 2.0 Not Available [facility] ([facility]) [address], [place], [address], 03/03/2024 11:18:32 03/03/20 24 03/03/2024 COMP METAB OLIC PANEL anion gap 11.5 Not Available [facility] ([facility]) [address], [place], [address], 03/03/2024 11:18:32 03/03/20 24 03/03/2024 COMP METAB OLIC PANEL glucose 97 mg/dL 70-120 Not Available [facility] ([facility]) [address], [place], [address], 03/03/2024 11:18:32 03/03/20 24 03/03/2024 COMP METAB OLIC PANEL BUN 14 mg/dL 7-18 Not Available [facility] ([facility]) [address] [facility], [place], [address], 03/03/2024 11:18:32 03/03/20 24 03/03/2024 COMP METAB OLIC PANEL creatinine 0.9 mg/dL 0.6-1. 3 Not Available [facility] ([facility]) [address] [facility], [place], [address], 03/03/2024 11:18:32 03/03/20 24 03/03/2024 COMP METAB [...] cielo diet or rapid ly [facility]. Not Available [facility] ([facility]) [address] , [place], [address], 03/03/2024 11:18:32 03/03/20 24 03/03/2024 COMP METAB OLIC PANEL total protein 7.0 g/dL 6.4-8. 2 Not Available [facility] ([facility]) [address] , [place], [address], 03/03/2024 11:18:32 03/03/20 24 03/03/2024 COMP METAB OLIC PANEL albumin 3.7 g/dL 3.4-5. 0 Not Available [facility] ([facility]) [address] , [place], [address], 03/03/2024 11:18:32 03/03/20 24 03/03/2024 COMP METAB OLIC PANEL globulin 3.3 Not Available [facility] ([facility]) [address] , [place], [address], 03/03/2024 11:18:32 03/03/20 24 03/03/2024 COMP METAB OLIC PANEL alb/glob ratio 1.1 0.7-2 Not Available [facility] ([facility]) [address] , [place], [address], 03/03/2024 11:18:32 03/03/20 24 03/03/2024 COMP METAB OLIC PANEL calcium 9.2 mg/dL 8.5-10 .5 Not Available [facility] ([facility]) [address], [place], [address], 03/03/2024 11:18:32 03/03/20 24 03/03/2024 COMP METAB OLIC PANEL bilirubin total 0.40 mg/dL 0.10-1 .00 Not Available [facility] ([facility]) [address], [place], [address], 03/03/2024 11:18:32 03/03/20 24 03/03/2024 COMP METAB OLIC PANEL AST (SGOT) 12 U/L 0-37 Not Available [facility] ([facility]) [address], [place], [address], 03/03/2024 11:18:32 03/03/20 24 03/03/2024 COMP METAB OLIC PANEL ALT (SGPT) 11 U/L 0-65 Not Available [facility] ([facility]) [address], [place], [address], 03/03/2024 11:18:32 03/03/20 24 03/03/2024 COMP METAB OLIC PANEL alk phosphatase 117 U/L 46-116 high Not Available [facility] ([facility]) [address] , [place], [address], 03/03/2024 11:18:32 06/03/19 25 06/02/2024 CBC AUTO W DIFF WBC 6.3 K/uL 4.0-10 .5 Not Available [facility] ([facility]) [address] , [place], [address], 06/02/2024 10:02:27 06/03/19 25 06/02/2024 CBC AUTO W DIFF RBC 4.3 M/mm3 4.2-6. 4 Not Available [facility] ([facility]) [address] , [place], [address], 06/02/2024 10:02:27 06/03/19 25 06/02/2024 CBC AUTO W DIFF HGB 12.3 gm/dL 12.5-1 6.0 low Not Available [facility] ([facility]) [address] , [place], [address], 06/02/2024 10:02:27 06/03/19 25 06/02/2024 CBC AUTO W DIFF HCT 37.9 % 37.0-4 7.0 Not Available [facility] ([facility]) [address], [place], [address], 06/02/2024 10:02:27 06/03/19 25 06/02/2024 CBC AUTO W DIFF MCV 88.3 fL 78-100 Not Available [facility] ([facility]) [address] , [place], [address], 06/02/2024 10:02:27 06/03/19 25 06/02/2024 CBC AUTO W DIFF MCH 28.7 pg 27-31 Not Available [facility] ([facility]) [address] , [place], [address], 06/02/2024 10:02:27 06/03/19 25 06/02/2024 CBC AUTO W DIFF MCHC 32.5 g/dL 32-36 Not Available [facility] ([facility]) [address] , [place], [address], 06/02/2024 10:02:27 06/03/19 25 06/02/2024 CBC AUTO W DIFF RDW 13.3 % 11.5-1 4.0 Not Available [facility] ([facility]) [address] , [place], [address], 06/02/2024 10:02:27 06/03/19 25 06/02/2024 CBC AUTO W DIFF platelet count 190 K/uL 150-45 0 Not Available [facility] ([facility]) [address] , [place], [address], 06/02/2024 10:02:27 06/03/19 25 06/02/2024 CBC AUTO W DIFF MPV 10.8 fL 6-9.5 high Not Available [facility] ([facility]) [address] , [place], [address], 06/02/2024 10:02:27 06/03/19 25 06/02/2024 CBC AUTO W DIFF neutrophil% 63.2 % 43-65 Not Available [facility] ([facility]) [address] [place], [address], 06/02/2024 10:02:27 06/03/19 25 06/02/2024 CBC AUTO W DIFF lymphocyte% 16.9 % 20.5-4 5.5 low Not Available [facility] ([facility]) [address] [place], [address], 06/02/2024 10:02:27 06/03/19 25 06/02/2024 CBC AUTO W DIFF monocyte% 11.2 % 5.5-11 .7 Not Available [facility] ([facility]) [address], [place], [address], 06/02/2024 10:02:27 06/03/19 25 06/02/2024 CBC AUTO W DIFF eosinophil% 6.9 % 0.9-2. 9 high Not Available [facility] ([facility]) [address] [place], [address], 06/02/2024 10:02:27 06/03/19 25 06/02/2024 CBC AUTO W DIFF basophil% 0.8 % 0.2-1. 0 Not Available [facility] ([facility]) [address] [place], [address], 06/02/2024 10:02:27 06/03/19 25 06/02/2024 CBC AUTO W DIFF immature granulocytes % 1.0 % 0.0-0. 8 high Not Available [facility] ([facility]) [address] [place], [address], 06/02/2024 10:02:27 06/03/19 25 06/02/2024 CBC AUTO W DIFF nucleated red blood cells % 0.0 % Not Available [facility] ([facility]) [address] [place], [address], 06/02/2024 10:02:27 06/03/19 25 06/02/2024 CBC AUTO W DIFF neutrophil# 4.0 K/uL 2.2-4. 8 Not Available [facility] ([facility]) [address] [facility], [place], [address], 06/02/2024 10:02:27 06/03/19 25 06/02/2024 CBC AUTO W DIFF lymphocyte# 1.1 cell/ mcL 1.3-2. 9 low Not Available [facility] ([facility]) [address], [place], [address], 06/02/2024 10:02:27 06/03/19 25 06/02/2024 CBC AUTO W DIFF monocyte# 0.7 cell/ mcL 0.3-0. 8 Not Available [facility] ([facility]) [address] [facility], [place], [address], 06/02/2024 10:02:27 06/03/19 25 06/02/2024 CBC AUTO W DIFF eosinophil# 0.4 cell/ mcL 0-0.2 high Not Available [facility] ([facility]) [address] [facility], [place], [address], 06/02/2024 10:02:27 06/03/19 25 06/02/2024 CBC AUTO W DIFF basophil# 0.1 cell/ mcL 0.0-1. 0 Not Available [facility] ([facility]) [address] [place], [address], 06/02/2024 10:02:27 06/03/19 25 06/02/2024 CBC AUTO W DIFF immature gramulocytes # 0.06 K/uL Not Available [facility] ([facility]) [address] [place], [address], 06/02/2024 10:02:27 06/03/19 25 06/02/2024 CBC AUTO W DIFF nucleated red blood cells # 0.00 K/uL Not Available [facility] ([facility]) [address], [place], [address], 06/02/2024 10:02:27 06/03/19 25 06/02/2024 CBC AUTO W DIFF manual differential NO Not Available [facility] ([facility]) [address] , [place], [address], 06/02/2024 10:02:27 06/03/19 25 06/02/2024 COMP METAB OLIC PANEL sodium 140 mmol/ L 136-14 5 Not Available [facility] ([facility]) [address] , [place], [address], 06/02/2024 10:10:56 06/03/19 25 06/02/2024 COMP METAB OLIC PANEL potassium 3.6 mmol/ L 3.6-5. 0 Not Available [facility] ([facility]) [address] , [place], [address], 06/02/2024 10:10:56 06/03/19 25 06/02/2024 COMP METAB OLIC PANEL chloride 101 mmol/ L 98-107 Not Available [facility] ([facility]) [address] , [place], [address], 06/02/2024 10:10:56 06/03/19 25 06/02/2024 COMP METAB OLIC PANEL carbon dioxide 32.5 mmol/ L 21.0-3 2.0 high Not Available [facility] ([facility]) [address] , [place], [address], 06/02/2024 10:10:56 06/03/19 25 06/02/2024 COMP METAB OLIC PANEL anion gap 10.1 Not Available [facility] ([facility]) [address] , [place], [address], 06/02/2024 10:10:56 06/03/19 25 06/02/2024 COMP METAB OLIC PANEL glucose 251 mg/dL 70-120 high Not Available [facility] ([facility]) [address], [place], [address], 06/02/2024 10:10:56 06/03/19 25 06/02/2024 COMP METAB OLIC PANEL BUN 13 mg/dL 7-18 Not Available [facility] ([facility]) [address], [place], [address], 06/02/2024 10:10:56 06/03/19 25 06/02/2024 COMP METAB OLIC PANEL creatinine 0.9 mg/dL 0.6-1. 3 Not Available [facility] ([facility]) [address] [facility], [place], [address], 06/02/2024 10:10:56 06/03/19 25 06/02/2024 COMP METAB [...] kenyon ing kiney funct ion. Not Available [facility] ([facility]) [address], [place], [address], 06/02/2024 10:10:56 06/03/19 25 06/02/2024 COMP METAB OLIC PANEL osmolality (calculated) 300 mOsm/ kg 275-30 1 OSMOL ALITY IS A CALCU LATIO N UTILI ZING THE SERUM /PLAS MA SODIU M, GLUCO SE AND UREA NITRO GEN (BUN) LEVEL S. FOR THE MOST ACCUR ATE RESUL T A MEASU RED SERUM OSMOL ALITY IS SUGGE STED. Not Available [facility] ([facility]) [address], [place], [address], 06/02/2024 10:10:56 06/03/19 25 06/02/2024 COMP METAB OLIC PANEL total protein 6.6 g/dL 6.4-8. 2 Not Available [facility] ([facility]) [address] [facility], [place], [address], 06/02/2024 10:10:56 06/03/19 25 06/02/2024 COMP METAB OLIC PANEL albumin 3.2 g/dL 3.4-5. 0 low Not Available [facility] ([facility]) [address], [place], [address], 06/02/2024 10:10:56 06/03/19 25 06/02/2024 COMP METAB OLIC PANEL globulin 3.4 Not Available [facility] ([facility]) [address], [place], [address], 06/02/2024 10:10:56 06/03/19 25 06/02/2024 COMP METAB OLIC PANEL alb/glob ratio 0.9 0.7-2 Not Available [facility] ([facility]) [address], [place], [address], 06/02/2024 10:10:56 06/03/19 25 06/02/2024 COMP METAB OLIC PANEL calcium 9.3 mg/dL 8.5-10 .5 Not Available [facility] ([facility]) [address] [facility], [place], [address], 06/02/2024 10:10:56 06/03/19 25 06/02/2024 COMP METAB OLIC PANEL bilirubin total 0.50 mg/dL 0.10-1 .00 Not Available [facility] ([facility]) [address] [facility], [place], [address], 06/02/2024 10:10:56 06/03/19 25 06/02/2024 COMP METAB OLIC PANEL AST (SGOT) 10 U/L 0-37 Not Available [facility] ([facility]) [address], [place], [address], 06/02/2024 10:10:56 06/03/19 25 06/02/2024 COMP METAB OLIC PANEL ALT (SGPT) 19 U/L 0-65 Not Available [facility] ([facility]) [address], [place], [address], 06/02/2024 10:10:56 06/03/19 25 06/02/2024 COMP METAB OLIC PANEL alk phosphatase 130 U/L 46-116 high Not Available [facility] ([facility]) [address] , [place], [address], 06/02/2024 10:10:56 09/03/19 25 09/02/2024 COMP METAB OLIC PANEL sodium 142 mmol/ L 136-14 5 Not Available [facility] ([facility]) [address] , [place], [address], 09/02/2024 10:28:32 09/03/19 25 09/02/2024 COMP METAB OLIC PANEL potassium 3.9 mmol/ L 3.6-5. 0 Not Available [facility] ([facility]) [address] , [place], [address], 09/02/2024 10:28:32 09/03/19 25 09/02/2024 COMP METAB OLIC PANEL chloride 103 mmol/ L 98-107 Not Available [facility] ([facility]) [address] , [place], [address], 09/02/2024 10:28:32 09/03/19 25 09/02/2024 COMP METAB OLIC PANEL carbon dioxide 30.0 mmol/ L 21.0-3 2.0 Not Available [facility] ([facility]) [address] , [place], [address], 09/02/2024 10:28:32 09/03/19 25 09/02/2024 COMP METAB OLIC PANEL anion gap 12.9 Not Available [facility] ([facility]) [address], [place], [address], 09/02/2024 10:28:32 09/03/19 25 09/02/2024 COMP METAB OLIC PANEL glucose 111 mg/dL 70-120 Not Available [facility] ([facility]) [address], [place], [address], 09/02/2024 10:28:32 09/03/19 25 09/02/2024 COMP METAB OLIC PANEL BUN 17 mg/dL 7-18 Not Available [facility] ([facility]) [address], [place], [address], 09/02/2024 10:28:32 09/03/19 25 09/02/2024 COMP METAB OLIC PANEL creatinine 1.0 mg/dL 0.6-1. 3 Not Available [facility] ([facility]) [address], [place], [address], 09/02/2024 10:28:32 09/03/19 25 09/02/2024 COMP METAB [...] kenyon ing kiney funct ion. Not Available [facility] ([facility]) [address], [place], [address], 09/02/2024 10:28:32 09/03/19 25 09/02/2024 COMP METAB OLIC PANEL osmolality (calculated) 297 mOsm/ kg 275-30 1 OSMOL ALITY IS A CALCU LATIO N UTILI ZING THE SERUM /PLAS MA SODIU M, GLUCO SE AND UREA NITRO GEN (BUN) LEVEL S. FOR THE MOST ACCUR ATE RESUL T A MEASU RED SERUM OSMOL ALITY IS VISHAL WAND. Not Available [facility] ([facility]) [address] [facility], [place], [address], 09/02/2024 10:28:32 09/03/19 25 09/02/2024 COMP METAB OLIC PANEL total protein 6.8 g/dL 6.4-8. 2 Not Available [facility] ([facility]) [address] [facility], [place], [address], 09/02/2024 10:28:32 09/03/19 25 09/02/2024 COMP METAB OLIC PANEL albumin 3.6 g/dL 3.4-5. 0 Not Available [facility] ([facility]) [address] [facility], [place], [address], 09/02/2024 10:28:32 09/03/19 25 09/02/2024 COMP METAB OLIC PANEL globulin 3.2 Not Available [facility] ([facility]) [address] [facility], [place], [address], 09/02/2024 10:28:32 09/03/19 25 09/02/2024 COMP METAB OLIC PANEL alb/glob ratio 1.1 0.7-2 Not Available [facility] ([facility]) [address] [facility], [place], [address], 09/02/2024 10:28:32 09/03/19 25 09/02/2024 COMP METAB OLIC PANEL calcium 9.2 mg/dL 8.5-10 .5 Not Available [facility] ([facility]) [address] [place], [address], 09/02/2024 10:28:32 09/03/19 25 09/02/2024 COMP METAB OLIC PANEL bilirubin total 0.40 mg/dL 0.10-1 .00 Not Available [facility] ([facility]) [address], [place], [address], 09/02/2024 10:28:32 09/03/19 25 09/02/2024 COMP METAB OLIC PANEL AST (SGOT) 11 U/L 0-37 Not Available [facility] ([facility]) [address], [place], [address], 09/02/2024 10:28:32 09/03/19 25 09/02/2024 COMP METAB OLIC PANEL ALT (SGPT) 19 U/L 0-65 Not Available [facility] ([facility]) [address] , [place], [address], 09/02/2024 10:28:32 09/03/19 25 09/02/2024 COMP METAB OLIC PANEL alk phosphatase 117 U/L 46-116 high Not Available [facility] ([facility]) [address] , [place], [address], 09/02/2024 10:28:32 09/03/19 25 09/02/2024 CBC AUTO W DIFF WBC 3.4 K/uL 4.0-10 .5 low Not Available [facility] ([facility]) [address] , [place], [address], 09/02/2024 10:42:36 09/03/19 25 09/02/2024 CBC AUTO W DIFF RBC 5.1 M/mm3 4.2-6. 4 Not Available [facility] ([facility]) [address] , [place], [address], 09/02/2024 10:42:36 09/03/19 25 09/02/2024 CBC AUTO W DIFF HGB 13.9 gm/dL 12.5-1 6.0 Not Available [facility] ([facility]) [address] , [place], [address], 09/02/2024 10:42:36 09/03/19 25 09/02/2024 CBC AUTO W DIFF HCT 43.5 % 37.0-4 7.0 Not Available [facility] ([facility]) [address] , [place], [address], 09/02/2024 10:42:36 09/03/19 25 09/02/2024 CBC AUTO W DIFF MCV 86.0 fL 78-100 Not Available [facility] ([facility]) [address] , [place], [address], 09/02/2024 10:42:36 09/03/19 25 09/02/2024 CBC AUTO W DIFF MCH 27.5 pg 27-31 Not Available [facility] ([facility]) [address] , [place], [address], 09/02/2024 10:42:36 09/03/19 25 09/02/2024 CBC AUTO W DIFF MCHC 32.0 g/dL 32-36 Not Available [facility] ([facility]) [address] , [place], [address], 09/02/2024 10:42:36 09/03/19 25 09/02/2024 CBC AUTO W DIFF RDW 13.0 % 11.5-1 4.0 Not Available [facility] ([facility]) [address] , [place], [address], 09/02/2024 10:42:36 09/03/19 25 09/02/2024 CBC AUTO W DIFF platelet count 218 K/uL 150-45 0 Not Available [facility] ([facility]) [address] , [place], [address], 09/02/2024 10:42:36 09/03/19 25 09/02/2024 CBC AUTO W DIFF MPV 10.0 fL 6-9.5 high Not Available [facility] ([facility]) [address] [place], [address], 09/02/2024 10:42:36 09/03/19 25 09/02/2024 CBC AUTO W DIFF neutrophil% 10.4 % 43-65 low Not Available [facility] ([facility]) [address] [place], [address], 09/02/2024 10:42:36 09/03/19 25 09/02/2024 CBC AUTO W DIFF lymphocyte% 45.7 % 20.5-4 5.5 high Not Available [facility] ([facility]) [address] [place], [address], 09/02/2024 10:42:36 09/03/19 25 09/02/2024 CBC AUTO W DIFF monocyte% 23.4 % 5.5-11 .7 high Not Available [facility] ([facility]) [address] [place], [address], 09/02/2024 10:42:36 09/03/19 25 09/02/2024 CBC AUTO W DIFF eosinophil% 18.4 % 0.9-2. 9 high Not Available [facility] ([facility]) [address] [place], [address], 09/02/2024 10:42:36 09/03/19 25 09/02/2024 CBC AUTO W DIFF basophil% 1.8 % 0.2-1. 0 high Not Available [facility] ([facility]) [address] [place], [address], 09/02/2024 10:42:36 09/03/19 25 09/02/2024 CBC AUTO W DIFF immature granulocytes % 0.3 % 0.0-0. 8 Not Available [facility] ([facility]) [address] [place], [address], 09/02/2024 10:42:36 09/03/19 25 09/02/2024 CBC AUTO W DIFF nucleated red blood cells % 0.0 % Not Available [facility] ([facility]) [address] [facility], [place], [address], 09/02/2024 10:42:36 09/03/19 25 09/02/2024 CBC AUTO W DIFF neutrophil# 0.4 K/uL 2.2-4. 8 low Not Available [facility] ([facility]) [address] [facility] [facility], [place], [address], 09/02/2024 10:42:36 09/03/19 25 09/02/2024 CBC AUTO W DIFF lymphocyte# 1.5 cell/ mcL 1.3-2. 9 Not Available [facility] ([facility]) [address] [facility], [place], [address], 09/02/2024 10:42:36 09/03/19 25 09/02/2024 CBC AUTO W DIFF monocyte# 0.8 cell/ mcL 0.3-0. 8 Not Available [facility] ([facility]) [address] [facility], [place], [address], 09/02/2024 10:42:36 09/03/19 25 09/02/2024 CBC AUTO W DIFF eosinophil# 0.6 cell/ mcL 0-0.2 high Not Available [facility] ([facility]) [address] [place], [address], 09/02/2024 10:42:36 09/03/19 25 09/02/2024 CBC AUTO W DIFF basophil# 0.1 cell/ mcL 0.0-1. 0 Not Available [facility] ([facility]) [address] [facility] [facility], [place], [address], 09/02/2024 10:42:36 09/03/19 25 09/02/2024 CBC AUTO W DIFF immature gramulocytes # 0.01 K/uL Not Available [facility] ([facility]) [address], [place], [address], 09/02/2024 10:42:36 09/03/19 25 09/02/2024 CBC AUTO W DIFF nucleated red blood cells # 0.00 K/uL Not Available [facility] ([facility]) [address] [facility], [place], [address], 09/02/2024 10:42:36 09/03/19 25 09/02/2024 CBC AUTO W DIFF manual differential YES Not Available [facility] ([facility]) [address] [facility], [place], [address], 09/02/2024 10:42:36 09/03/19 25 09/02/2024 CBC AUTO W DIFF segmented neutrophil 11 % 42-76 low Not Available [facility] ([facility]) [address] [facility], [place], [address], 09/02/2024 10:42:36 09/03/19 25 09/02/2024 CBC AUTO W DIFF lymphocyte 44 % 15-41 high Not Available [facility] ([facility]) [address] [facility], [place], [address], 09/02/2024 10:42:36 09/03/19 25 09/02/2024 CBC AUTO W DIFF monocyte 20 % 2-9 high Not Available [facility] ([facility]) [address] [facility], [place], [address], 09/02/2024 10:42:36 09/03/19 25 09/02/2024 CBC AUTO W DIFF eosinophil 19 % 0-3 high Not Available [facility] ([facility]) [address] [facility], [place], [address], 09/02/2024 10:42:36 09/03/19 25 09/02/2024 CBC AUTO W DIFF basophil 5 0-1 high Not Available [facility] ([facility]) [address] , [place], [address], 09/02/2024 10:42:36 09/03/19 25 09/02/2024 CBC AUTO W DIFF metamyelocyt e 1 % 0-1 Not Available [facility] ([facility]) [address] , [place], [address], 09/02/2024 10:42:36 09/03/19 25 09/02/2024 CBC AUTO W DIFF platelet estimate ADEQUA TE adequa te Not Available [facility] ([facility]) [address], [place], [address], 09/02/2024 10:42:36 09/03/19 25 09/02/2024 CBC AUTO W DIFF platelet morphology NORMAL normal Not Available [facility] ([facility]) [address] , [place], [address], 09/02/2024 10:42:36 09/03/19 25 09/02/2024 CBC AUTO W DIFF RBC morphology NORMAL normal Not Available [facility] ([facility]) [address] , [place], [address], 09/02/2024 10:42:36 09/03/19 25 09/02/2024 LDH (LD) LDH 181 U/L 0-190 Not Available [facility] ([facility]) [address], [place], [address], 09/02/2024 10:46:50 12/10/19 25 12/09/2024 CBC AUTO W DIFF WBC 8.9 K/uL 4.0-10 .5 Not Available [facility] ([facility]) [address], [place], [address], 12/09/2024 09:34:16 12/10/19 25 12/09/2024 CBC AUTO W DIFF RBC 5.0 M/mm3 4.2-6. 4 Not Available [facility] ([facility]) [address] , [place], [address], 12/09/2024 09:34:16 12/10/19 25 12/09/2024 CBC AUTO W DIFF HGB 13.8 gm/dL 12.5-1 6.0 Not Available [facility] ([facility]) [address] , [place], [address], 12/09/2024 09:34:16 12/10/19 25 12/09/2024 CBC AUTO W DIFF HCT 42.3 % 37.0-4 7.0 Not Available [facility] ([facility]) [address] , [place], [address], 12/09/2024 09:34:16 12/10/19 25 12/09/2024 CBC AUTO W DIFF MCV 84.8 fL 78-100 Not Available [facility] ([facility]) [address] , [place], [address], 12/09/2024 09:34:16 12/10/19 25 12/09/2024 CBC AUTO W DIFF MCH 27.7 pg 27-31 Not Available [facility] ([facility]) [address] , [place], [address], 12/09/2024 09:34:16 12/10/19 25 12/09/2024 CBC AUTO W DIFF MCHC 32.6 g/dL 32-36 Not Available [facility] ([facility]) [address] , [place], [address], 12/09/2024 09:34:16 12/10/19 25 12/09/2024 CBC AUTO W DIFF RDW 14.5 % 11.5-1 4.0 high Not Available [facility] ([facility]) [address], [place], [address], 12/09/2024 09:34:16 12/10/19 25 12/09/2024 CBC AUTO W DIFF platelet count 224 K/uL 150-45 0 Not Available [facility] ([facility]) [address], [place], [address], 12/09/2024 09:34:16 12/10/19 25 12/09/2024 CBC AUTO W DIFF MPV 10.1 fL 6-9.5 high Not Available [facility] ([facility]) [address], [place], [address], 12/09/2024 09:34:16 12/10/19 25 12/09/2024 CBC AUTO W DIFF neutrophil% 63.2 % 43-65 Not Available [facility] ([facility]) [address] , [place], [address], 12/09/2024 09:34:16 12/10/19 25 12/09/2024 CBC AUTO W DIFF lymphocyte% 23.1 % 20.5-4 5.5 Not Available [facility] ([facility]) [address] , [place], [address], 12/09/2024 09:34:16 12/10/19 25 12/09/2024 CBC AUTO W DIFF monocyte% 7.6 % 5.5-11 .7 Not Available [facility] ([facility]) [address], [place], [address], 12/09/2024 09:34:16 12/10/19 25 12/09/2024 CBC AUTO W DIFF eosinophil% 4.5 % 0.9-2. 9 high Not Available [facility] ([facility]) [address] , [place], [address], 12/09/2024 09:34:16 12/10/19 25 12/09/2024 CBC AUTO W DIFF basophil% 0.8 % 0.2-1. 0 Not Available [facility] ([facility]) [address] [place], [address], 12/09/2024 09:34:16 12/10/19 25 12/09/2024 CBC AUTO W DIFF immature granulocytes % 0.8 % 0.0-0. 8 Not Available [facility] ([facility]) [address] [facility], [place], [address], 12/09/2024 09:34:16 12/10/19 25 12/09/2024 CBC AUTO W DIFF nucleated red blood cells % 0.0 % Not Available [facility] ([facility]) [address] [facility], [place], [address], 12/09/2024 09:34:16 12/10/19 25 12/09/2024 CBC AUTO W DIFF neutrophil# 5.6 K/uL 2.2-4. 8 high Not Available [facility] ([facility]) [address] [facility], [place], [address], 12/09/2024 09:34:16 12/10/19 25 12/09/2024 CBC AUTO W DIFF lymphocyte# 2.0 cell/ mcL 1.3-2. 9 Not Available [facility] ([facility]) [address] [place], [address], 12/09/2024 09:34:16 12/10/19 25 12/09/2024 CBC AUTO W DIFF monocyte# 0.7 cell/ mcL 0.3-0. 8 Not Available [facility] ([facility]) [address] [place], [address], 12/09/2024 09:34:16 12/10/19 25 12/09/2024 CBC AUTO W DIFF eosinophil# 0.4 cell/ mcL 0-0.2 high Not Available [facility] ([facility]) [address] [facility], [address], 12/09/2024 09:34:16 12/10/1912/09/2024 CBC AUTO W DIFF basophil# 0.1 cell/ mcL 0.0-1. 0 Not Available [facility] ([facility]) [address], [place], [address], 12/09/2024 09:34:16 12/10/19 25 12/09/2024 CBC AUTO W DIFF immature gramulocytes # 0.07 K/uL Not Available [facility] ([facility]) [address], [place], [address], 12/09/2024 09:34:16 12/10/19 25 12/09/2024 CBC AUTO W DIFF nucleated red blood cells # 0.00 K/uL Not Available [facility] ([facility]) [address], [place], [address], 12/09/2024 09:34:16 12/10/1912/09/2024 CBC AUTO W DIFF manual differential NO Not Available [facility] ([facility]) [address], [place], [address], 12/09/2024 09:34:16 12/10/1912/09/2024 COMP METAB OLIC PANEL sodium 139 mmol/ L 136-14 5 Not Available [facility] ([facility]) [address], [place], [address], 12/09/2024 09:46:13 12/10/1912/09/2024 COMP METAB OLIC PANEL potassium 3.8 mmol/ L 3.6-5. 0 Not Available [facility] ([facility]) [address], [place], [address], 12/09/2024 09:46:13 12/10/19 25 12/09/2024 COMP METAB OLIC PANEL chloride 102 mmol/ L 98-107 Not Available [facility] ([facility]) [address] , [place], [address], 12/09/2024 09:46:13 12/10/19 25 12/09/2024 COMP METAB OLIC PANEL carbon dioxide 29.0 mmol/ L 21.0-3 2.0 Not Available [facility] ([facility]) [address] , [place], [address], 12/09/2024 09:46:13 12/10/1912/09/2024 COMP METAB OLIC PANEL anion gap 11.8 Not Available [facility] ([facility]) [address] , [place], [address], 12/09/2024 09:46:13 12/10/1912/09/2024 COMP METAB OLIC PANEL glucose 221 mg/dL 70-120 high Not Available [facility] ([facility]) [address] , [place], [address], 12/09/2024 09:46:13 12/10/19 25 12/09/2024 COMP METAB OLIC PANEL BUN 21 mg/dL 7-18 high Not Available [facility] ([facility]) [address], [place], [address], 12/09/2024 09:46:13 12/10/1912/09/2024 COMP METAB OLIC PANEL creatinine 0.9 mg/dL 0.6-1. 3 Not Available [facility] ([facility]) [address], [place], [address], 12/09/2024 09:46:13 12/10/19 25 12/09/2024 COMP METAB OLIC PANEL glomerular filtration rate 66 mlper min 60- GFR LIMIT ATION : The eGFR equat ion CKD-E PI 2020 is not appli cable for pedia tric patie nts or great er than 90 years of age. The follo wing condi tions may alter the GFR resul t: extre mes in body size, malnu triti on or obesi ty, skele hartiha muscl e disea se, parap legia or quadr ipleg ia, veget cielo diet or rapid ly kenyon ing kiney funct ion. Not Available [facility] ([facility]) [address] [facility], [place], [address], 12/09/2024 09:46:13 12/10/19 25 12/09/2024 COMP METAB OLIC PANEL osmolality (calculated) 299 mOsm/ kg 275-30 1 OSMOL ALITY IS A CALCU LATIO N UTILI ZING THE SERUM /PLAS MA SODIU M, GLUCO SE AND UREA NITRO GEN (BUN) LEVEL S. FOR THE MOST ACCUR ATE RESUL T A MEASU RED SERUM OSMOL ALITY IS SUGGE STED. Not Available [facility] ([facility]) [address] [facility], [place], [address], 12/09/2024 09:46:13 12/10/19 25 12/09/2024 COMP METAB OLIC PANEL total protein 6.8 g/dL 6.4-8. 2 Not Available [facility] ([facility]) [address] [facility], [place], [address], 12/09/2024 09:46:13 12/10/19 25 12/09/2024 COMP METAB OLIC PANEL albumin 3.5 g/dL 3.4-5. 0 Not Available [facility] ([facility]) [address] [facility], [place], [address], 12/09/2024 09:46:13 12/10/19 25 12/09/2024 COMP METAB OLIC PANEL globulin 3.3 Not Available [facility] ([facility]) [address] [facility], [place], [address], 12/09/2024 09:46:13 12/10/19 25 12/09/2024 COMP METAB OLIC PANEL alb/glob ratio 1.1 0.7-2 Not Available [facility] ([facility]) [address], [place], [address], 12/09/2024 09:46:13 12/10/19 25 12/09/2024 COMP METAB OLIC PANEL calcium 8.7 mg/dL 8.5-10 .5 Not Available [facility] ([facility]) [address], [place], [address], 12/09/2024 09:46:13 12/10/19 25 12/09/2024 COMP METAB OLIC PANEL bilirubin total 0.30 mg/dL 0.10-1 .00 Not Available [facility] ([facility]) [address], [place], [address], 12/09/2024 09:46:13 12/10/1912/09/2024 COMP METAB OLIC PANEL AST (SGOT) 10 U/L 0-37 Not Available [facility] ([facility]) [address], [place], [address], 12/09/2024 09:46:13 12/10/1912/09/2024 COMP METAB OLIC PANEL ALT (SGPT) 16 U/L 0-65 Not Available [facility] ([facility]) [address], [place], [address], 12/09/2024 09:46:13 12/10/19 25 12/09/2024 COMP METAB OLIC PANEL alk phosphatase 125 U/L 46-116 high Not Available [facility] ([facility]) [address], [place], [address], 12/09/2024 09:46:13 12/10/19 25 12/09/2024 LDH (LD) LDH 172 U/L 0-190 Not Available [facility] ([facility]) [address], [place], [address], 12/09/2024 10:09:06 08/28/19 24 08/27/2023 CT, chest , w/ contr [facility] [address] [facility] [place] [address] Phone: Fax: Name: TAY PURDY Exam Date: 024 : [birth year] Age 77 years Gender : F Access ion: [id number] Physic aiden: ENRIQUE LOU Facili ty: [facility] Facili ty HSV: Outpat ient Exam: CT [...] Hyacinth Anders 024 Thank [facility] Legall y authen ticate d by MARISOL Villatoro IVO 08-27 10:41: 00 CC'ed Logic: Orderi ng Provid er: CARMINE CAR Attend ing Provid er: CARMINE CAR Referr ing Provid er: CARMINE CAR Admitt ing Provid er: CARMINE CAR mervin[address] [facility] [address] [facility], [place], [address], 08/30/2023 12:47:44 07/02/19 25 06/30/2024 CT ABD pel w/ (IV [facility] [address] [place] [address] Phone: Fax: Name: NAVARR E, TAY Exam Date: 025 : [birth year] Age 78 years Gender : F Access ion: [id number] Physic aiden: WILIAN ESTRADA Facili ty: [facility] Facili ty HSV: Outpat ient Exam: [...] FINDIN GS: * Lower chest as per dedician pierre chest CT. * Hepato biliar y: [...] Negro Transc ribed By: Transc ribed On: 1:59 PM Electr onical ly signed by: Josiah Negro 025 Thank you for referr ing TAY PURDY to [facility] Legall y authen ticate d by MARY DAVIS 06-30 13:59: 23 CC'ed Logic: Orderi ng Provid er: ARELIS CEDENO Attend ing Provid er: ARELIS CEDENO Referr ing Provid er: ARELIS Carreonitt ing Provid er: ARELIS CEDENO mervin[address] [facility] [address] [place] [address], [place], [address], 07/01/2024 08:53:08 07/02/19 25 06/30/2024 CT, chest , w/ contr ast [facility] [address] [place] [address] Phone: Fax: Name: YOMI RoniTAY Exam Date: : [birth year] Age 78 years Gender : F Access ion: [id number] Physic aiden: ARELIS Flores WILIAN Facili ty: [place] Facili ty HSV: Outpat ient Exam: CT [...] you for referr ing [facility] Legall y authen ticate d by MARY DAVIS 06-30 13:59: 16 CC'ed Logic: Orderi ng Provid er: ARELIS CEDENO Attend ing Provid er: ARELIS CEDENO Referr ing Provid er: ARELIS CEDENO Admitt ing Provid er: ARELIS CEDENO [email or web address] [facility] [address] [facility], [place], [address], 07/01/2024 08:53:08 Result Notes Documentation Provider Name and Address Organization Details Recorded Time Ct, Chest, W/ Contrast : [facility] [address] [place] [address] Name: TAY FONSECA Exam Date: 06/30/2024 : 1945 Age 78 years Gender: F Physician: WILIAN OLSEN Facility: [facility] Facility HSV: Outpatient Exam: CT CHEST [...] No acute abnormality. Electronically signed by: Josiah Negor MD 07/01/2024 08:34 AM EDT Dictated By: Josiah Negro Transcribed By: Transcribed On: 06/30/2024 1:59 PM Electronically signed by: Josiah Negro 06/30/2024 Thank you for referring TAY FONSECA to [facility]. Legally authenticated by MARY DAVIS 2024-06-30 13:59:16 CC'ed Logic: Ordering Provider: RAÚL CEDENO Attending Provider: RAÚL CEDENO Referring Provider: RAÚL CEDENO Admitting Provider: RAÚL Olsen PA-C [address] [facility], [place], [address], [place] [facility] [place] & [place] 07/01/2024 08:53:08 Problems Name Problem SNOMED Code Status Onset Date Resolution Date Notes Provider Name and Address Organization Details Recorded Time Anemia 710360057 Active Amy Dustin null, [place] [facility] [place] & [place] 4 10:29:57 Abdominal mass 371499907 Active Amy Dustin null, [place] [facility] [place] 4 10:29:57 Lymphadenopath y 14013386 Active Amy Dustin null, [place] [facility] [place] 4 10:29:57 Hyperlipidemia 66446300 Active Amy Dustin null, [place] [facility] [place] 10:29:57 Fracture of pelvis 90521184 Active Amy Dustin null, [place] [facility] [place] 10:29:57 Problem Notes Documentation Provider Name and Address Organization Details Recorded Time Flow Specialist Consult Note : SW met with pt accompanied by a caregiver. Pt reported that she'd had a heart attack and was having issues with sleeping. SW provided education on sleep hygiene and provided support for pt and encouraged pt to reach out for ongoing needs. Lynn Rose null, [place] - [facility] [place] 09/11/2023 16:57:34 Procedures Surgical History Date Name Laterality Status Provider Name and Address Organization Details Recorded Time hysterectomy completed Amy S[place] - [facility] - & [place] 03/20/2023 10:33:17 banding of varix of stomach completed Amy Dustin [place] [facility] [place] 03/20/2023 10:34:08 procedure on ankle completed Amy Chan [place] - [facility] & [place] 06/03/2023 13:59:58 Imaging Results None recorded. Procedure Notes None recorded. Medical Equipment None Reported. Allergies Allergen ID Allergen Name Allergen Category Reaction Reaction Severity Criticality Documentation Date Start Date Code Code System Note Provider Name and Address Organization Details Recorded Time 881503 Product containin g penicilli n (product) medicatio n Not available Not available Not available 03/20/2023 07682 8001 SNOMED Other react ions and sever ities : 'Adve rse react ion to subst ance' . Amy Chan null, [place] - [facility] & [place] 10:29:56 Medications Name Sig Start Date Stop [...] Available Not Available Not Available Vitamin D3 94521 active Not Available Not Av ailable Not [...] Updated DateTime 5 157.48 cm 37.5 kg/m2 02701.7 2 g 97.4 [degF] 93 % 93 % 112 /min 20 /min 164/72 mm[Hg] Farhana BEARDEN [facility] & [place] 5 09:29:54 Date Recorded Body weight Oxygen saturation Oxygen saturation in Arterial blood by Pulse oximetry Body temperature Heart rate Respiratory rate Systolic And Diastolic Provider Name and Address Organization Details Last Updated DateTime 5 99089.5 1 g 95 % 95 % 98.3 [degF] 102 /min 18 /min 143/60 mm[Hg] Amy BEARDEN [facility] & [place] 5 10:01:58 Date Recorded Body height Body mass index (BMI) Body weight Body temperature Oxygen saturation Oxygen saturation in Arterial blood by Pulse oximetry Heart rate Systolic And Diastolic Provider Name and Address Organization Details Last Updated DateTime 4 157.48 cm 38 kg/m2 75104.1 4 g 97.1 [degF] 93 % 93 % 108 /min 136/67 mm[Hg] [facility] [place] 4 09:36:53 Date Recorded Body height Body mass index (BMI) Body weight Body temperature Oxygen saturation Oxygen saturation in Arterial blood by Pulse oximetry Heart rate Respiratory rate Systolic And Diastolic Provider Name and Address Organization Details Last Updated DateTime 4 157.48 cm 37.8 kg/m2 87942.1 8 g 97.2 [degF] 96 % 96 % 85 /min 18 /min 139/70 mm[Hg] Farhana BEARDEN [facility] & [place] 4 09:59:45 Date Recorded Body height Body mass index (BMI) Body weight Body temperature Oxygen saturation Oxygen saturation in Arterial blood by Pulse oximetry Heart rate Respiratory rate Systolic And Diastolic Provider Name and Address Organization Details Last Updated DateTime 5 157.48 cm 36.5 kg/m2 83845.3 2 g 97.4 [degF] 98 % 98 % 96 /min 20 /min 133/71 mm[Hg] Farhana BEARDEN [facility] & [place] 5 09:18:13 Social History Question Answer Notes LastModified by Organizat ion Details LastModified Time Tobacco Smoking Status Former Smoker Amy Chan null, [place] - [facility] & [place] 03/20/2023 10:32:44 What Is Your Level Of Caffeine Consumption? None [email or web address] Information not available 03/20/2023 When Did You Quit Smoking? 18+yearssinc elastcigaret te [email or web address] Information not available 03/20/2023 What Was The Date Of Your Most Recent Tobacco Screening? 06/03/2023 [email or web address] Information not available 06/03/2023 At What Age Did You Start Smoking Tobacco? 22 [email or web address] Information not available 03/20/2023 Has Tobacco Cessation Counseling Been Provided? No [email or web address] Information not available 03/20/2023 How Many Years Have You Smoked Tobacco? 23 [email or web address] Information not available 03/20/2023 Sex: Unknown Functional Status Question Answer Note LastModified by Organizat [employer] Details LastModified Time Do you use any illicit or recreational drugs? No [email or web address] Information not available 03/20/2023 Do you or have you ever used any other forms of tobacco or nicotine? No [email or web address] Information not available 03/20/2023 What is your level of alcohol consumption? None [email or web address] Information not available 03/20/2023 Mental Status None recorded. Family History Relationship Description Onset Age of this Age Resolved Age Notes LastModified by Organization Details LastModified Time Father Carcinoma of prostate [email or web address] Not available 06/02 13:57:10 Mother Malignant neoplasm of female breast [email or web address] Not available 06/02 13:57:19 Sister Malignant neoplasm of female breast BC twice .... chemo since 2018, under [facility] [email or web address] Not available 06/03/2023 13:57:59 Sister Malignant neoplasm of thyroid gland [email or web address] Not available 06/02 13:58:23 Sister Primary malignant neoplasm of both ovaries Not available 13:58:50 Medical History No medical history recorded. Gynecological HistoryNo gynecological history recorded. Obstetrics History GPAL:G 0 P 0 0 0 0 Immunizations Vaccine Type Date Status Note Provider Nam e and Address Organization Details Recorded Time Influenza, high-dose, quadrivalent, PF 3 completed Amy short, [place] [facility] [place] & [place] 04/12/2023 08:52:49 COVID-19, mRNA, LNP-S, PF, 100 mcg/0.5mL dose or 50 mcg/0.25mL dose 1 completed Amy Chan null, [place] [facility] [place] & [place] 04/12/2023 08:52:49 COVID-19, mRNA, LNP-S, PF, 100 mcg/0.5mL dose or 50 mcg/0.25mL dose 1 completed Amy Chan null, [place] [facility] [place] & [place] 04/12/2023 08:52:49 COVID-19, mRNA, LNP-S, PF, 100 mcg/0.5mL dose or 50 mcg/0.25mL dose 1 completed Amy short, [place] - [facility] [place] & [place] 04/12/2023 08:52:49 zoster live 4 completed Not Available [facility] 12/09/2024 09:03:33 zoster recombinant 4 completed Not Available [facility] 12/09/2024 09:03:33 Tdap 5 completed Not Available [facility] 12/09/2024 09:03:33 RSV, recombinant, protein subunit RSVpreF, adjuvant reconstituted, 0.5 mL, PF 5 completed Not Available [facility] 12/09/2024 09:03:33 Past Encounters Encounter ID Performer Location Encounter Start Date Encounter Closed Date Diagnosis/Indication Diagnosis SNOMED-CT Code Diagnosis ICD10 Code Diagnosis IMO Codes Diagnosis Note [id number] Enrique Lou MD [facility] [address] [place] [address] 03/20/2023 10:15:09 03/20/2023 11:40:57 Follicular lymphoma 859649674 C82.93 CT scan of the abdomen pelvis [...] rituximab maintenanc e depending on response. Anemia 541454233 D64.9 Labs during hospital stay in late February 2023 with findings of iron deficiency anemia. Iron infusions plan today. 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 Findings follicular lymphoma that is low grade (1/2). Flow cytometry positive for CD10. Cells positive for CD20 as well as CD19. Negative for CD 5 and negative for CD 38. Biopsy site was retroperit rivera lymph node. [id number] Enrique Lou MD [facility] [address] [facility] [address] [place] [address] 04/12/2023 08:44:32 04/12/2023 09:53:23 Follicular lymphoma [id number] C82.93 CT scan of the abdomen pelvis [...] hopefully proceed with maintenanc e therapy. Anemia 726750913 D64.9 Labs during hospital stay in late February 2023 with findings of iron deficiency anemia. Iron infusions plan today. 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 Findings follicular lymphoma that is low grade (1/2). Flow cytometry positive for CD10. Cells positive for CD20 as well as CD19. Negative for CD 5 and negative for CD 38. Biopsy site was retroperit rivera lymph node. Antineopla stic chemotherapy regimen 711984772 Z51.11 Week 1 of rituximab on April 12, 2023. Chemothera py education performed. B-cell lym phoma (clinical) [id number] C85.89 [id number] Enrique Lou MD [facility] [address] [place] [address] 04/19/2023 08:54:42 04/19/2023 09:34:24 Follicular lymphoma [id number] C82.93 CT scan of the abdomen pelvis [...] elevated at 200. Will follow-up response. Anemia 585026717 D64.9 Labs during hospital stay in late February 2023 with findings of iron deficiency anemia. Iron infusions plan today. 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 Findings follicular lymphoma that is low grade (1/2). Flow cytometry positive for CD10. Cells positive for CD20 as well as CD19. Negative for CD 5 and negative for CD 38. Biopsy site was retroperit rivera lymph node. Antineopla stic chemotherapy regimen 965252010 Z51.11 Week 1 of rituximab on April 12, 2023. Chemothera py education performed. Week 2 of rituximab on April 19, 2023. Nausea 110363866 R11.0 As needed Zofran and Phenergan prescribed . Will follow-up B-cell lym phoma (clinical) [id number] C85.89 [id number] Enrique Lou MD [facility] [address] [address] [place] [address] 04/26/2023 09:05:09 04/26/2023 09:29:02 Follicular lymphoma [id number] C82.93 CT scan of the abdomen pelvis [...] blood count 4.7. Hemoglobin 13.4. Platelet count 632884. Absolute neutrophil count 6.8. Uric acid in the normal range 3.8. LDH 256. Patient returns on April 26, 2023 for week 3 of rituximab. Will continue with current therapy. Following dose 4, will arrange repeat imaging 4-6 weeks after week 4 and will assess for maintenanc e therapy. Anemia 784074726 D64.9 Labs during hospital stay in late February 2023 with findings of iron deficiency anemia. Iron infusions plan today. 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 Findings follicular lymphoma that is low grade (1/2). Flow cytometry positive for CD10. Cells positive for CD20 as well as CD19. Negative for CD 5 and negative for CD 38. Biopsy site was retroperit rivera lymph node. Antineopla stic chemotherapy regimen [id number] Z51.11 Week 1 of rituximab on April 12, 2023. Chemothera py education performed. Week 2 of rituximab on April 19, 2023.Week 3 of rituximab on April 26, 2023. Nausea 994924635 R11.0 As needed Zofran and Phenergan prescribed . Will follow-up [id number] Wilian Olsen PA-C [facility] [address] [place] [address] 05/03/2023 09:00:04 05/03/2023 10:26:31 Follicular lymphoma [id number] C82.93 CT scan of the abdomen pelvis [...] blood count 4.7. Hemoglobin 13.4. Platelet count 568776. Absolute neutrophil count 6.8. Uric acid in the normal range 3.8. LDH 256. Patient returns on May 03, 2023 for week 4 of rituximab. Will complete current therapy today. She had some diarrhea with nausea and vomiting this week. Discussed starting Imodium along with Zofran. Will arrange repeat imaging 4-6 weeks and will assess for maintenanc e therapy. Anemia 177451560 D64.9 Labs during hospital stay in late February 2023 with findings of iron deficiency anemia. Iron infusions plan today. 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 Findings follicular lymphoma that is low grade (1/2). Flow cytometry positive for CD10. Cells positive for CD20 as well as CD19. Negative for CD 5 and negative for CD 38. Biopsy site was retroperit rivera lymph node. Antineopla stic chemotherapy regimen [id number] Z51.11 Week 1 of rituximab on April 12, 2023. Chemothera py education performed. Week 2 of rituximab on April 19, 2023.Week 3 of rituximab on April 26, 2023.Week 4 of rituximab on May 03, 2023. Nausea 437254384 R11.0 As needed Zofran and Phenergan prescribed . Will follow-up B-cell lym phoma (clinical) [id number] C82.89 [id number] Enrique Lou MD [facility] [address] [place] [address] 06/03/2023 13:38:35 06/03/2023 15:26:54 Follicular lymphoma [id number] C82.93 CT scan of the abdomen pelvis [...] 4.7. Hemoglobin 13.6 hematocrit 41.2. Platelet count 558830. Patient completed 4 weeks of rituximab therapy. [...] in mid to late June 2023. Anemia 567304968 D64.9 Labs during hospital stay in late February 2023 with findings of iron deficiency anemia. Iron infusions plan today. 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 Findings follicular lymphoma that is low grade (1/2). Flow cytometry positive for CD10. Cells positive for CD20 as well as CD19. Negative for CD 5 and negative for CD 38. Biopsy site was retroperit rivera lymph node. Antineopla stic chemotherapy regimen 097224959 Z51.11 Week 1 of rituximab on April 12, 2023. Chemothera py education performed. Week 2 of rituximab on April 19, 2023.Week 3 of rituximab on April 26, 2023.Week 4 of rituximab on May 03, 2023. Nausea 543633817 R11.0 As needed Zofran and Phenergan prescribed . Will follow-up [id number] Enrique Lou MD [facility] [address] [place] [address] 07/24/2023 14:19:03 07/24/2023 15:05:00 Follicular lymphoma [id number] C82.93 CT scan of the abdomen pelvis [...] 4.7. Hemoglobin 13.6 hematocrit 41.2. Platelet count 802011. Patient completed 4 weeks of rituximab therapy. [...] potential maintenanc e rituximab. Will follow-up Anemia 718519774 D64.9 Labs during hospital stay in late February 2023 with findings of iron deficiency anemia. Iron infusions plan today. 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 Findings follicular lymphoma that is low grade (1/2). Flow cytometry positive for CD10. Cells positive for CD20 as well as CD19. Negative for CD 5 and negative for CD 38. Biopsy site was retroperit rivera lymph node. Antineopla stic chemotherapy regimen 129674973 Z51.11 Week 1 of rituximab on April 12, 2023. Chemothera py education performed. Week 2 of rituximab on April 19, 2023.Week 3 of rituximab on April 26, 2023.Week 4 of rituximab on May 03, 2023. Nausea 940102126 R11.0 As needed Zofran and Phenergan prescribed . Will follow-up Coronary arteriosclerosis 47425788 I25.10 Patient recently hospitaliz ed in June 2023 following STEMI. Patient had cardiac stents placed. Follows with Cardiology . Chronic hy poxemic respiratory failure 101701742 J96.11 Patient with low oxygen saturation of 85% upon clinic arrival. Oxygen saturation 85% at rest. Patient placed on oxygen supplement ation with improvemen t in oxygen saturation . During walking test patient desaturate d to 89% on room air. Improvemen t with oxygen supplement ation. [id number] Wilian Olsen PA-C [facility] [address] [place] [address] 09/04/2023 14:09:39 09/04/2023 15:21:56 Follicular lymphoma [id number] C82.93 CT scan of the abdomen pelvis [...] 4.7. Hemoglobin 13.6 hematocrit 41.2. Platelet count 550334. Patient completed 4 weeks of rituximab therapy. [...] labs on day 1 of rituximab. Anemia 693617382 D64.9 Labs during hospital stay in late February 2023 with findings of iron deficiency anemia. Iron infusions plan today. 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 Findings follicular lymphoma that is low grade (1/2). Flow cytometry positive for CD10. Cells positive for CD20 as well as CD19. Negative for CD 5 and negative for CD 38. Biopsy site was retroperit rivera lymph node. Antineopla stic chemotherapy regimen 285883350 Z51.11 Week 1 of rituximab on April 12, 2023. Chemothera py education performed. Week 2 of rituximab on April 19, 2023.Week 3 of rituximab on April 26, 2023.Week 4 of rituximab on May 03, 2023. Nausea 331527575 R11.0 As needed Zofran and Phenergan prescribed . Will follow-up Coronary arteriosclerosis 80317758 I25.10 Patient recently hospitaliz ed in June 2023 following STEMI. Patient had cardiac stents placed. Follows with Cardiology . Chronic hy poxemic respiratory failure 831160753 J96.11 Patient with low oxygen saturation of 85% upon clinic arrival. Oxygen saturation 85% at rest. Patient placed on oxygen supplement ation with improvemen t in oxygen saturation . During walking test patient desaturate d to 89% on room air. Improvemen t with oxygen supplement ation. [id number] Wilian Olsen PA-C [facility] [address] [facility] [address] [place] [address] 09/11/2023 09:30:15 09/11/2023 09:57:11 Follicular lymphoma [id number] C82.93 CT scan of the abdomen pelvis [...] 4.7. Hemoglobin 13.6 hematocrit 41.2. Platelet count 127414. Patient completed 4 weeks of rituximab therapy. [...] maintenanc e today. Will follow-up labs. Anemia 933096637 D64.9 Labs during hospital stay in late February 2023 with findings of iron deficiency anemia. Iron infusions plan today. 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 Findings follicular lymphoma that is low grade (1/2). Flow cytometry positive for CD10. Cells positive for CD20 as well as CD19. Negative for CD 5 and negative for CD 38. Biopsy site was retroperit rivera lymph node. Antineopla stic chemotherapy regimen 612219159 Z51.11 Week 1 of rituximab on April 12, 2023. Chemothera py education performed. Week 2 of rituximab on April 19, 2023.Week 3 of rituximab on April 26, 2023.Week 4 of rituximab on May 03, 2023. Cycle 1 of rituximab maintenanc e on September 11, 2023. Nausea 608322031 R11.0 As needed Zofran and Phenergan prescribed . Will follow-up Coronary arteriosclerosis 74999550 I25.10 Patient recently hospitaliz ed in June 2023 following STEMI. Patient had cardiac stents placed. Follows with Cardiology . Chronic hy poxemic respiratory failure 332313110 J96.11 Patient with low oxygen saturation of 85% upon clinic arrival. Oxygen saturation 85% at rest. Patient placed on oxygen supplement ation with improvemen t in oxygen saturation . During walking test patient desaturate d to 89% on room air. Improvemen t with oxygen supplement ation. [id number] Wilian Olsen PA-C [facility] [address] [place] [address] 12/03/2023 09:47:40 12/03/2023 10:16:58 Follicular lymphoma 277804000 C82.93 CT scan of the abdomen pelvis [...] 4.7. Hemoglobin 13.6 hematocrit 41.2. Platelet count 713120. Patient completed 4 weeks of rituximab therapy. [...] maintenanc e today. Will follow-up labs. Anemia 047926526 D64.9 Labs during hospital stay in late February 2023 with findings of iron deficiency anemia. Iron infusions plan today. 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 Findings follicular lymphoma that is low grade (1/2). Flow cytometry positive for CD10. Cells positive for CD20 as well as CD19. Negative for CD 5 and negative for CD 38. Biopsy site was retroperit rivera lymph node. Antineopla stic chemotherapy regimen 787829953 Z51.11 Week 1 of rituximab on April 12, 2023. Chemothera py education performed. Week 2 of rituximab on April 19, 2023.Week 3 of rituximab on April 26, 2023.Week 4 of rituximab on May 03, 2023. Cycle 1 of rituximab maintenanc e on September 11, 2023.Cycle 2 of rituximab maintenanc e on December 03, 2023. Nausea 192811580 R11.0 As needed Zofran and Phenergan prescribed . Will follow-up Coronary arteriosclerosis 17884042 I25.10 Patient recently hospitaliz ed in June 2023 following STEMI. Patient had cardiac stents placed. Follows with Cardiology . Chronic hy poxemic respiratory failure 093207751 J96.11 Patient with low oxygen saturation of 85% upon clinic arrival. Oxygen saturation 85% at rest. Patient placed on oxygen supplement ation with improvemen t in oxygen saturation . During walking test patient desaturate d to 89% on room air. Improvemen t with oxygen supplement ation. Localized eruption of skin 943958791 R21 Patient returns for follow-up on December [...] refer to Dermatolog y further evaluation . [id number] Wilian Olsen PA-C [facility] [address] [place] [address] 06/02/2024 09:27:05 06/02/2024 09:44:25 Follicular lymphoma 029955417 C82.93 CT scan of the abdomen pelvis [...] 4.7. Hemoglobin 13.6 hematocrit 41.2. Platelet count 332288. Patient completed 4 weeks of rituximab therapy. [...] schedule scans. Follicular low grade B-cell lymphoma 543661825 C82.80 Biopsy performed of lymph node mass on March 14, 2023. Findings follicular lymphoma that is low grade (1/2). Flow cytometry positive for CD10. Cells positive for CD20 as well as CD19. Negative for CD 5 and negative for CD 38. Biopsy site was retroperit rivera lymph node. Antineopla stic chemotherapy regimen 403555469 Z51.11 Week 1 of rituximab on April [...] py today to monitor for toxicity. Nausea 691601269 R11.0 As needed Zofran and Phenergan prescribed . Will follow-up Coronary arteriosclerosis 11077894 I25.10 Patient had a STEMI and had cardiac stents placed June 2023. Continues to follow with Cardiology . History of anemia 805459 002 Z86.2 245421 Labs during hospital stay in late February 2023 with findings of iron deficiency anemia. Patient received infusional iron with improvemen t. Labs on March 03, 2024 with hemoglobin normal at 13.5. Will follow up labs Acute cough [id number] 50389575 R05.1 [id number] Patient returns for follow-up on June 02, 2024. She is feeling better. She states she had pneumonia and congestive heart failure about 2 weeks ago. She has completed antibiotic s and is taking Lasix with improvemen t. Cough has improved She is still coughing up some mucus. Discussed taking Mucinex needed. No fever or chills. Insomnia 386255818 G47.0 0 [id number] Patient returns for follow-up on June 02, 2024. Her sister March 2024. She is tearful and crying during her visit today but she is grieving appropriat brittanie. Offered referral to a therapist but patient declined at this time. She has had trouble sleeping. Discussed trying melatonin. Grief finding 336300522 F43.21 12103 Patient returns for follow-up on June 02, 2024. Her sister March 2024. She is tearful and crying during her visit today but she is grieving appropriat brittanie. Offered referral to a therapist but patient declined at this time. Discussed reaching out to other friends and family for comfort. [id number] Enrique Lou MD [facility] [address] [place] [address] 09/02/2024 09:29:42 09/02/2024 10:11:58 Antineoplastic chemotherapy regimen 193102132 Z51.11 Week 1 of rituximab on April [...] to monitor for toxicity. Follicular lymphoma [address] scan of the abdomen pelvis [...] 4.7. Hemoglobin 13.6 hematocrit 41.2. Platelet count 166605. Patient completed 4 weeks of rituximab therapy. [...] labs today. 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 Findings follicular lymphoma that is low grade (1/2). Flow cytometry positive for CD10. Cells positive for CD20 as well as CD19. Negative for CD 5 and negative for CD 38. Biopsy site was retroperit rivera lymph node. Nausea 878294991 R11.0 As needed Zofran and Phenergan prescribed . Will follow-up Coronary arteriosclerosis 85374848 I25.10 Patient had a STEMI and had cardiac stents placed June 2023. Continues to follow with Cardiology . History of anemia 354878 002 Z86.2 712941 Labs during hospital stay in late February 2023 with findings of iron deficiency anemia. Patient received infusional iron with improvemen t. Labs on March 03, 2024 with hemoglobin normal at 13.5. Will follow up labs [id number] Wilian Olsen PA-C [facility] [address] [place] [address] 12/09/2024 08:57:50 12/09/2024 09:42:05 Antineoplastic chemotherapy regimen 415034553 Z51.11 Week 1 of rituximab on April [...] 5 of rituximab maintenanc e on September 02ycle 6 of rituximab maintenanc e on December 09, 2024. Will follow-up CBC and CMP prior chemothera py today to monitor for toxicity. Follicular lymphoma [address] scan of the abdomen pelvis [...] 4.7. Hemoglobin 13.6 hematocrit 41.2. Platelet count 965530. Patient completed 4 weeks of rituximab therapy. [...] new areas of disease. Patient returns on December 09, 2024. Patient has recovered from pneumonia. She is feeling well now. She does still have some weakness. She is scheduled to follow up with Neurology for this. Discussed home health physical therapy but patient declines at this time. Denies any additional changes at this time. Continuing with maintenanc e rituximab. Will plan to repeat imaging in December/2024. Will schedule. Will follow-up labs today. Follicular low grade B-cell lymphoma 297482691 C82.80 Biopsy performed of lymph node mass on March 14, 2023. Findings follicular lymphoma that is low grade (1/2). Flow cytometry positive for CD10. Cells positive for CD20 as well as CD19. Negative for CD 5 and negative for CD 38. Biopsy site was retroperit rivera lymph node. Nausea 616554551 R11.0 Patient has needed Zofran and Phenergan prescribed . Coronary arteriosclerosis 14630137 I25.10 Patient had a STEMI and had cardiac stents placed June 2023. She continues to follow up with Cardiology . History of anemia 325840 002 Z86.2 199202 Labs during hospital stay in late February 2023 with findings of iron deficiency anemia. Patient received infusional iron with improvemen t. Labs on March 03, 2024 with hemoglobin normal at 13.5. Labs on September 02, 2024 with stable hemoglobin at 13.9. Will follow up labs Health Concerns Section Related Observation LastModified by Organization Detai ls LastModified Time None Recorded Concern Status LastModified by Organization Details LastModified Time None Recorded Advance Directives Directive None Recorded Payers Insurance Date Sequence Insurance Name Policy Number Policy Vieira Covered Member ID Vieira Member ID Guarantor Name 12/08/2024 2 [employer] (MEDICARE SUPPLEMENT) Tay Duglas [id number] Tay [place] 12/01/2024 1 [place]ARE[place] Tay L [place] [id number] Tay [place] Notes Date Note Type Note Provider Name and Address Organization Details Recorded Time 09/11/2023 text/html 77 yo F returns for [...] blood count 4.7. Hemoglobin 13.4. Platelet count 041597. Absolute neutrophil count 6.8. Uric acid in [...] 4.7. Hemoglobin 13.6 hematocrit 41.2. Platelet count 241957. Patient completed 4 weeks of rituximab therapy. [...] today. Will follow-up labs. Wilian Olsen PA-C [address], [place], [address], [facility] [place] 09/11/2023 09:55:42 12/03/2023 text/html 77 yo F [...] blood count 4.7. Hemoglobin 13.4. Platelet count 890004. Absolute neutrophil count 6.8. Uric acid in [...] 4.7. Hemoglobin 13.6 hematocrit 41.2. Platelet count 028626. Patient completed 4 weeks of rituximab therapy. [...] today. Will follow-up labs. Wilian Olsen PA-C [address] , [place], [address], [facility] [place] 12/03/2023 10:22:12 06/02/2024 text/html 78 yo F [...] blood count 4.7. Hemoglobin 13.4. Platelet count 133936. Absolute neutrophil count 6.8. Uric acid in [...] 4.7. Hemoglobin 13.6 hematocrit 41.2. Platelet count 900515. Patient completed 4 weeks of rituximab therapy. [...] imaging. Will schedule scans. Wilian Olsen PA-C [address] [facility], [place], [address], [place] [facility] [place] 06/02/2024 10:03:19 09/02/2024 text/html 78 yo F [...] blood count 4.7. Hemoglobin 13.4. Platelet count 201209. Absolute neutrophil count 6.8. Uric acid in [...] 4.7. Hemoglobin 13.6 hematocrit 41.2. Platelet count 663576. Patient completed 4 weeks of rituximab therapy. [...] Will follow-up labs today. Enrique Lou MD [address] [facility], [place], [address], [place] [facility] [place] 09/02/2024 09:56:56 12/09/2024 text/html 79 yo F returns for evaluation of follicular [...] blood count 4.7. Hemoglobin 13.4. Platelet count 721492. Absolute neutrophil count 6.8. Uric acid in [...] 4.7. Hemoglobin 13.6 hematocrit 41.2. Platelet count 004270. Patient completed 4 weeks of rituximab therapy. [...] new areas of disease. Patient returns on December 09, 2024. Patient has recovered from pneumonia. She is feeling well now. She does still have some weakness. She is scheduled to follow up with Neurology for this. Discussed home health physical therapy but patient declines at this time. Denies any additional changes at this time. Continuing with maintenance rituximab. Will plan to repeat imaging in December/January 2025. Will schedule. Will follow-up labs today. Wilian Olsen PA-C [address], [place], [address], [place] [facility] [place] 12/09/2024 09:26:40 OBGyn Episode No OBEpisode recorded.
--- OUTSIDE RECORDS SUMMARY | 2025-01-05 14:52 | XMS_ITS | Encounter Summary ---
Author Organization [facility] ([place], [place], [place], [place]) Address [address] [place] [address] Care Team Providers Care Needle Grinder Name Role Phone Unavailable Primary Care Provider Unavailabl e Encounter Details Date Type Department Care Team (Late st Contact Info) Description 04/27/2019 Transcribed Document [facility] [place] [facility] [address] [place] [address] ProviderLexi MD [address] [place] [address] Social History Tobacco Use Types [...] - Historical ProviderMD - 04/27/2019 6:29 AM CHECK CASHIER Orthopedic Nurse Navigator Entered On: 04/27/2019 6:31 [...] Pt is wanting to go to the [place]. Alyssia Ashraf RN Surgical Services - 04/27/2019 6:29 EST documented in this encounter Plan of Treatment Not on file documented as of this encounter Visit Diagnoses Not on filedocumented in this encounter
--- OUTSIDE RECORDS SUMMARY | 2025-01-05 14:52 | XMS_ITS | Encounter Summary ---
Author Organization [facility] ([place], [place], [place], [place]) Address [address] [place] [address] Care Team Providers Care Accounting Associate Name Role Phone Unavailable Primary Care Provider Unavailabl e Encounter Details Date Type Department Care Team (Late st Contact Info) Description 05/12/2019 Transcribed Document [facility] [place] [address] [place] [address] ProviderLexi MD [address] [place] [address] Social History Tobacco Use Types [...] - Historical ProviderMD - 05/12/2019 3:07 PM SENIOR MAINFRAME DEVELOPER Treatment Intervention, PT Entered On: 05/15/2019 10:15 EST Performed On: 05/15/2019 9:03 EST by MARIELOS HUFFMAN, COPYRIGHT MANAGER General Information, PT Visit Type, PT : [...] Fall prevention measures, high risk MARIELOS HUFFMAN, COPYRIGHT MANAGER - 05/15/2019 10:01 EST General Status Patient [...] Treatment Time : 23 Minute(s) MARIELOS HUFFMAN, COPYRIGHT MANAGER - 05/15/2019 10:01 EST Edu Topics Physical [...] MARIELOS HUFFMAN, TAMMY - 05/15/2019 10:01 EST Intermediate Goals Other PT LTG Grid Goal #1 [...] rehab setting per CM today MARIELOS HUFFMAN, COPYRIGHT MANAGER - 05/15/2019 10:01 EST MARIELOS HUFFMAN, COPYRIGHT MANAGER - 05/15/2019 10:01 EST MARIELOS HUFFMAN, COPYRIGHT MANAGER - 05/15/2019 10:01 EST MARIELOS HUFFMAN, COPYRIGHT MANAGER - 05/15/2019 10:01 EST Treatment Note Subjective [...] for Treatment : Cont POC. MARIELOS HUFFMAN, COPYRIGHT MANAGER - 05/15/2019 10:01 EST Pain Assessment Pain Scaled Used : FACES Pain Score Pre-Intervention : 4 MARIELOS HUFFMAN, COPYRIGHT MANAGER - 05/15/2019 10:01 EST Image 1 - Images currently included in the form version of this document have not been included in the text rendition version of the form. Anon Raices PT Charges COPYRIGHT MANAGER PT Therap. Exercise 15 min-COPYRIGHT MANAGER : 2 MARIELOS HUFFMAN, COPYRIGHT MANAGER - 05/15/2019 10:01 EST documented in this encounter Plan of Treatment Not on file documented as of this encounter Visit Diagnoses Not on filedocumented in this encounter
--- OUTSIDE RECORDS SUMMARY | 2025-01-05 14:52 | XMS_ITS | Clinical Summary ---
Author Organization [facility] Address [address] [place] [address] Care Team Providers Care Derrick Operator Name Role Phone Jesus Peñaloza MD Primary Care Provider [phone] Allergies Active Allergy Reactions Criticality Noted Date [...] (02/20/2022): Added automatically from request for surgery [id number] Diabetes mellitus 11/08/2021 Overview (11/08/2021): no insulin [...] - 5.60 % 03/06/2022 11:35 AM EST [facility] Blood Venipuncture / Unknown 03/06/2022 10:37 AM EST 03/06/2022 10:52 AM EST Narrative [facility] - 03/06/2022 11:35 AM EST Hemoglobin A1C Ranges: Increased Risk for Diabetes 5.7% to 6.4% Diabetes >= 6.5% Diabetic Goal < 7.0% Jimmy Wilson MD LAB BLOOD ORDERABLES Final Result [facility]
[address] [place] [address], from Last 3 Months or Most Recently [...] Payer (Ef fective 2012-Present) Name:Dominga Ardon Member ID:[id number] Relation to Subscriber:Self Name:Dominga Ardon Subscriber ID:[id number] Payer ID:[id number] Group ID:Not on file Type:Not on file Address: [address] [employer] Care Teams Derrick Operator Relationship Specialty Start Date End Date Jesus Peñaloza MD [address] [place] [address] PCP - General Family Medicine 10/02/18
--- OUTSIDE RECORDS SUMMARY | 2025-01-05 14:52 | XMS_ITS | Referral Summary ---
Author Organization [employer] ([place], [place], [place], [place]) Address [address] [place] [address] Care Team Providers Care Hospital Ward Clerk Name Role Phone Unavailable Primary Care [...]
--- OUTSIDE RECORDS SUMMARY | 2025-01-05 14:52 | XMS_ITS | Encounter Summary ---
Author Organization [employer] ([place], [place], [place], [place]) Address [address] [place] [address] Care Team Providers Care Acls Specialist Name Role Phone Unavailable Primary Care Provider Unavailabl e Encounter Details Date Type Department Care Team (Late st Contact Info) Description 05/12/2019 Transcribed Document [facility] [place] [address] [place] [address] ProviderLexi MD [address] [place] [address] Social History Tobacco Use Types [...] - Lexi ProviderMD - 05/12/2019 10:29 AM SECURITY OPERATIONS CENTER ANALYST KAYE Main OR PreOp Summary Primary Physician: ROSIO JUDD MD-ORT Finalized Date/Time: 05/19/19 10:37:26 Pt. Name: TAY FONSECA D.O.B./Sex: 1945 Female Med Rec #: [id number] Physician: ROSIO JUDD MD-ORT Financial #: [id number] Pt. Type: I Room/Bed: 412/1 Admit/Disch: 05/13/19 09:44:00 - 05/16/19 14:56:00 Institution: [facility] [place] PreOp Case Times Entry 1 In Preop 05/12/19 07:15:00 Ready for Holding n/a Room Patient Ready for 05/12/19 09:00:00 Surgery Patient Out of Preop 05/12/19 09:50:00 Patient Out of n/a Holding Room Last Modified By: ROS HUNTER 05/19/19 10:37:25 SJRnoi PreOp Case Times Audit 05/19/19 10:37:25 Loan Collector: [id number] Modifier: CATLETDD <+> 1 Patient Out of Preop Finalized By: ROS HUNTER Document Signatures Signed By: ROS HUNTER 05/19/19 10:37 Electronically signed by Angelika [facility] Conversion Milk Handler Cerner at 07/02/2022 4:50 PM CDT documented in this encounter Plan of Treatment Not on file documented as of this encounter Visit Diagnoses Not on filedocumented in this encounter
--- OUTSIDE RECORDS SUMMARY | 2025-01-05 14:52 | XMS_ITS | Encounter Summary ---
Author Organization [employer] ([place], [place], [place], [place]) Address [address] [place] [address] Care Team Providers Care Medical Reimbursement Manager Name Role Phone Unavailable Primary Care Provider Unavailabl e Encounter Details Date Type Department Care Team (Late st Contact Info) Description 05/12/2019 Transcribed Document [facility] [place] [address] [place] [address] ProviderLexi MD [address] [place] [address] Social History Tobacco Use Types [...] - Lexi ProviderMD - 05/12/2019 10:29 AM AUTOMATION CONSULTANT KAYE Main OR PACU Summary Primary Physician: ROSIO JUDD MD-ORPatria Finalized Date/Time: 05/12/19 13:13:58 Pt. Name: TAY FONSECA /Sex: 1945 Female Med Rec #: [id number] Physician: ROSIO JUDD MD-ORT Financial #: [id number] Pt. Type: O Room/Bed: [facility]/2 Admit/Disch: 05/12/19 04:49:00 - Institution: [facility] OR PACU Case Times Entry 1 In PACU I 05/12/19 11:54:00 Ready for PACU 05/12/19 13:13:00 Discharge Discharge from PACU 05/12/19 13:13:00 I Last Modified By: JSAPAL MARQUIS 05/12/19 13:13:46 SJRoni Main OR PACU Case Times Audit 05/12/19 13:13:46 Combine Mechanic: RAMON Modifier: TERESAMAM <+> 1 Ready for PACU Discharge <+> 1 Discharge from PACU I Finalized By: JASPAL MARQUIS Document Signatures Signed By: JASPAL MARQUIS 05/12/19 13:13 documented in this encounter Plan of Treatment Not on file documented as of this encounter Visit Diagnoses Not on filedocumented in this encounter
--- OUTSIDE RECORDS SUMMARY | 2025-01-05 14:52 | XMS_ITS | Encounter Summary ---
Author Organization [employer] ([place], [place], [place], [place]) Address [address] [place] [address] Care Team Providers Care Community Marketing Manager Name Role Phone Unavailable Primary Care Provider Unavailabl e Encounter Details Date Type Department Care Team (Late st Contact Info) Description 05/12/2019 Transcribed Document [facility] [place] [address] [place] [address] ProviderLexi MD [address] [place] [address] Social History Tobacco Use Types [...] - Historical ProviderMD - 05/12/2019 8:17 AM HAND BLOCKER Pre Procedure Adult Entered On: 05/12/2019 8:24 EST Performed On: 05/12/2019 8:17 EST by Cecile Wright RN Height and Weight, Clinical Dosing Height Source : Stated Height Entry Format : [place] Height, Feet : 5 ft(Converted to: 152 cm, 60 Inch) Height, Inches : 2 Inch(Converted to: 0 ft 2 Inch, 5.08 cm) Clinical Height : 157.48 cm Weight Source : Standing scale Weight Entry Format : [place] Clinical Dosing Weight : 107.27 kg Weight, Pounds : 236 lb Body Surface Area (BSA) : 2.05 m2 Body Mass Index : 43.3 kg/m2 (>HHI) [place] Body Weight : 50 kg Cecile Wright [...] Cecile Wright RN - 05/12/2019 8:17 EST [place] Suicide Severity Rating Scale (C-SSRS) CSSRS Past [...] Any Spiritual/Cultural Needs or Requests : Yes Protestant Preference : Methodist Cecile Wright RN - 05/12/2019 8:17 EST [...] Obtained From : Patient Primary Language : Lithuanian Preferred Communication Mode : Verbal Communication Barrier [...] Scale Risk Level : 25-45 Medium Risk [place] Fall Interventions : Adequate lighting, Assistive devices [...] the text rendition version of the form. [place] Coma Crystal Best Motor Response : Obey commands [place] Best Verbal Response : Oriented [place] Eye Opening Response : Spontaneous [place] Coma Score : 15 Cecile Wright RN - 05/12/2019 8:17 EST documented in this encounter Plan of Treatment Not on file documented as of this encounter Visit Diagnoses Not on filedocumented in this encounter
--- OUTSIDE RECORDS SUMMARY | 2025-01-05 14:52 | XMS_ITS | Encounter Summary ---
Author Organization [employer] ([place], [place], [place], [place]) Address [address] [place] [address] Care Team Providers Care Car Sander Name Role Phone Unavailable Primary Care Provider Unavailabl e Encounter Details Date Type Department Care Team (Late st Contact Info) Description 04/27/2019 Transcribed Document [facility] [place] [address] [place] [address] ProviderLexi MD [address] [place], [...] - Lexi ProviderMD - 04/27/2019 6:29 AM BUSINESS ANALYST SALES OPERATIONS Total Joints Assessment Entered On: 04/27/2019 6:30 [...]
--- OUTSIDE RECORDS SUMMARY | 2025-01-05 14:52 | XMS_ITS | Encounter Summary ---
Author Organization [employer] ([place], [place], [place], [place]) Address [address] [place] [address] Care Team Providers Care Seed Analysis Laboratory Assistant Name Role Phone Unavailable Primary Care Provider Unavailabl e Encounter Details Date Type Department Care Team (Late st Contact Info) Description 05/04/2019 Transcribed Document [facility] [place] [address] [place] [address] ProviderLexi MD [address] [place] [address] Social History Tobacco Use Types [...] - Historical ProviderMD - 05/04/2019 1:10 PM NUMERICAL CONTROL MACHINE MACHINIST Orthopedic Nurse Navigator Entered On: 05/04/2019 13:11 EST Performed On: 05/04/2019 13:10 EST by Alyssia Ashraf Nurse sand system operator Nurse Navigator Assessment Does Patient Have a Walker? : No Joint Navigator Assessment Note : Patient returned call. Pt is wanting to go to the [place] bc she lives alone and has stairs. Pt indicates she was supposed to have surgery last September with another , and went to the class at that time. Alyssia Ashraf Nurse KOBE - 05/04/2019 13:10 EST Electronically signed by Angelika [facility] Conversion Mill Washer Cerner at 07/02/2022 5:05 PM CDT documented in this encounter Plan of Treatment Not on file documented as of this encounter Visit Diagnoses Not on filedocumented in this encounter
--- OUTSIDE RECORDS SUMMARY | 2025-01-05 14:52 | XMS_ITS | Encounter Summary ---
Author Organization [employer] ([place], [place], [place], [place]) Address [address] [place] [address] Care Team Providers Care Toaster Operator Name Role Phone Unavailable Primary Care Provider Unavailabl e Encounter Details Date Type Department Care Team (Late st Contact Info) Description 05/12/2019 Transcribed Document [facility] [place] Family Medicine [address] [place] [address] ProviderLexi MD [address] [place] [address] Social History Tobacco Use Types [...] - Historical ProviderMD - 05/12/2019 12:53 PM MANAGER OF MARKETING Pain Assessment Entered On: 05/15/2019 9:58 EST [...] form. Electronically signed by Meghan Carney Conversion Drapery And Upholstery Estimator Raghav at 07/02/2022 4:53 PM CDT documented in this encounter Plan of Treatment Not on file documented as of this encounter Visit Diagnoses Not on filedocumented in this encounter
--- OUTSIDE RECORDS SUMMARY | 2025-01-05 14:52 | XMS_ITS | Encounter Summary ---
Author Organization [employer] ([place], [place], [place], [place]) Address [address] [place] [address] Care Team Providers Care Drawbench Operator Helper Name Role Phone Unavailable Primary Care Provider Unavailabl e Encounter Details Date Type Department Care Team (Late st Contact Info) Description 05/12/2019 Transcribed Document [facility] [place] [address] [place] [address] ProviderLexi MD [address] [place] [address] Social History Tobacco Use Types [...] - Historical ProviderMD - 05/12/2019 8:09 AM HOG COOLER Pediatric Growth Entered On: 05/12/2019 8:09 EST Performed On: 05/12/2019 8:09 EST by Lianna Johnson Care [facility] Unit Coord Height and Weight, Clinical Dosing Height Source : Stated Height Entry Format : [place] Height, Feet : 5 ft(Converted to: 152 cm, 60 Inch) Height, Inches : 2 Inch(Converted to: 0 ft 2 Inch, 5.08 cm) Clinical Height : 157.48 cm Weight Source : Standing scale Weight Entry Format : [place] Clinical Dosing Weight : 107.27 kg Weight, Pounds : 236 lb Body Surface Area (BSA) : 2.05 m2 Body Mass Index : 43.3 kg/m2 (>HHI) [place] Body Weight : 50 kg [facility] - 05/12/2019 8:09 EST Electronically signed by Angelika [facility] Conversion Office Machines Teacher Cerner at 07/02/2022 5:01 PM CDT documented in this encounter Plan of Treatment Not on file documented as of this encounter Visit Diagnoses Not on filedocumented in this encounter
--- OUTSIDE RECORDS SUMMARY | 2025-01-05 14:52 | XMS_ITS | Encounter Summary ---
Author Organization [employer] ([place], [place], [place], [place]) Address [address] [place] [address] Care Team Providers Care Lining Maker Name Role Phone Unavailable Primary Care Provider Unavailabl e Encounter Details Date Type Department Care Team (Late st Contact Info) Description 05/12/2019 Transcribed Document [facility] [place] Family Medicine [address] [place] [address] ProviderLexi MD [address] [place] [address] Social History Tobacco Use Types [...] - Historical ProviderMD - 05/12/2019 7:00 PM CLAMMER Pain Assessment Entered On: 05/12/2019 23:17 EST Performed On: 05/12/2019 19:38 EST by BORIS OVALLE, Chief Of Pediatric Urology-Nursing Intervention Information: acetaminophen Performed by Rach Red RN on 05/12/2019 18:38:00 EST acetaminophen,1000mg Oral Pain Assessment Pain Assessment : Follow-up assessment Pain Scale Goal : 4 Pain Scale Used : FACES Pain Intervention, Drug : Medicated Pain Improved by Intervention : Yes BORIS OVALLE, Chief Of Pediatric Urology-Nursing - 05/12/2019 23:17 EST Pain Scale Intensity : 3 BORIS OVALLE, Chief Of Pediatric Urology-Nursing - 05/12/2019 23:17 EST Image 4 - Images currently included in the form version of this document have not been included in the text rendition version of the form. documented in this encounter Plan of Treatment Not on file documented as of this encounter Visit Diagnoses Not on filedocumented in this encounter
--- OUTSIDE RECORDS SUMMARY | 2025-01-05 14:53 | XMS_ITS | Encounter Summary ---
Author Organization [facility] Address [address] [place] [address] Care Team Providers Care Paper Cone Machine Operator Name Role Phone Humberto Downs MD Primary Care Provider [phone] Humberto Camarena MD Primary Care Provider + [phone] Encounter Details Date Type Department Care Team (Late st Contact Info) Description 09/24/2024 Orders Only External Location [address] [place] [address] Provider, External Social History Tobacco Use Types [...] EDT us External Provider IMG MRI PROCEDURES Edited Resu lt - Final documented in this encounter Visit Diagnoses Not on filedocumented in this encounter Care Teams Paper Cone Machine Operator Relationship Specialty Start Date End Date Humberto Downs MD [address] [place] [address] [place] [address] PCP - General 07/29/20 12/28/24 Humberto Camarena MD [address] [place] [address] PCP - General Internal Medicine 12/29/24 documented as of this encounter
--- OUTSIDE RECORDS SUMMARY | 2025-01-05 14:53 | XMS_ITS | Encounter Summary ---
Author Organization [employer] ([place], [place], [place], [place]) Address [address] [place] [address] Care Team Providers Care Cone Former Name Role Phone Unavailable Primary Care Provider Unavailabl e Encounter Details Date Type Department Care Team (Late st Contact Info) Description 04/24/2019 Transcribed Document [facility] [place] Family Medicine [address] [place] [address] ProviderLexi MD [address] [place] [address] Social History Tobacco Use Types [...] - Historical ProviderMD - 04/24/2019 12:47 PM DETECTIVE PRIVATE EYE Event Note Entered On: 04/24/2019 12:49 EST [...]
--- OUTSIDE RECORDS SUMMARY | 2025-01-05 14:53 | XMS_ITS | Encounter Summary ---
Author Organization [facility] Address [address] [place] [address] Care Team Providers Care Levee Superintendent Name Role Phone Humberto Downs MD Primary Care Provider [phone] Encounter Details Date Type Department Care Team [...] documented as of this encounter Care Teams Levee Superintendent Relationship Specialty Start Date End Date Humberto Downs [place] [address] PCP - General 07/29/20 12/28/24 documented as of this encounter
--- OUTSIDE RECORDS SUMMARY | 2025-01-05 14:53 | XMS_ITS | Encounter Summary ---
Author Organization [employer] ([place], [place], [place], [place]) Address [address] [place] [address] Care Team Providers Care Back Joiner Name Role Phone Unavailable Primary Care Provider Unavailabl e Encounter Details Date Type Department Care Team (Late st Contact Info) Description 04/24/2019 Transcribed Document [facility] [place] [facility] [place] [address] ProviderLexi MD [address] [place] [address] Social History Tobacco Use Types [...] - Lexi ProviderMD - 04/24/2019 11:06 AM MAINTENANCE MILLWRIGHT Patient: TAY FONSECA Age: 73 Years Sex: [...]
--- OUTSIDE RECORDS SUMMARY | 2025-01-05 14:53 | XMS_ITS | Encounter Summary ---
Author Organization [facility] Address [address] [place] [address] Care Team Providers Care Dag Sprayer Name Role Phone Humberto Downs MD Primary Care Provider [phone] Humberto Camarena MD Primary Care Provider + [phone] Encounter Details Date Type Department Care Team (Late st Contact Info) Description 05/05/2024 Orders Only External Location [address] [place] [address] Provider, External Social History Tobacco Use Types [...] EST us External Provider IMG CT PROCEDURES Edited Resul t - Final documented in this encounter Visit Diagnoses Not on filedocumented in this encounter Care Teams Dag Sprayer Relationship Specialty Start Date End Date Humberto Downs MD [address] [place] [address] [place] [address] PCP - General 07/29/20 12/28/24 Humberto Camarena MD [address] [place] [address] PCP - General Internal Medicine 12/29/24 documented as of this encounter
--- OUTSIDE RECORDS SUMMARY | 2025-01-05 14:53 | XMS_ITS | Encounter Summary ---
Author Organization [facility] Address [address] [place] [id number] Care Team Providers Care Music Librarian Name Role Phone Humberto Downs MD Primary Care Provider [phone] Reason for Visit * Reason Onset Date Comments HCN Clinical Concern/Question 11/03/2024 Encounter Details Date Type Department Care Team (Late st Contact Info) Description 11/03/2024 Telephone [facility] [address] [facility] 5th Floor [address] [place] [address] HCN Clinical Concern/Question Social History [...] Osiris' line once. Thanks! Best contact number: [phone] (home) Optimal time of day to reach [...] on filedocumented in this encounter Care Teams Music Librarian Relationship Specialty Start Date End Date Humberto Downs MD [address] [facility] [place] [address] PCP - General 07/29/20 12/28/24 documented as of this encounter
--- OUTSIDE RECORDS SUMMARY | 2025-01-05 14:53 | XMS_ITS | Encounter Summary ---
Author Organization [facility] Address [address] [place] [address] Care Team Providers Care Day Care Home Mother Name Role Phone Humberto Downs MD Primary Care Provider [phone] Humberto Camarena MD Primary Care Provider + [phone] Encounter Details Date Type Department Care Team (Late st Contact Info) Description 09/24/2024 Orders Only External Location [address] [place] [address] Provider, External Social History Tobacco Use Types [...] on filedocumented in this encounter Care Teams Day Care Home Mother Relationship Specialty Start Date End Date Humberto Downs MD [address] [place] [address] [place] [address] PCP - General 07/29/20 12/28/24 Humberto Camarena MD [address] [place] [address] PCP - General Internal Medicine 12/29/24 documented as of this encounter
--- OUTSIDE RECORDS SUMMARY | 2025-01-05 14:53 | XMS_ITS | Encounter Summary ---
Author Organization [facility] Address [address] [place] [address] Care Team Providers Care Md Allergy Immunology Name Role Phone Humberto Downs MD Primary Care Provider [phone] Humberto Camarena MD Primary Care Provider + [phone] Encounter Details Date Type Department Care Team (Late st Contact Info) Description 09/28/2024 Orders Only External Location [address] [place] [address] Provider, External Social History Tobacco Use Types [...] on filedocumented in this encounter Care Teams Md Allergy Immunology Relationship Specialty Start Date End Date Humberto Downs MD [address] [place] [address] [place] [address] PCP - General 07/29/20 12/28/24 Humberto Camarena MD [address] [place] [address] PCP - General Internal Medicine 12/29/24 documented as of this encounter
--- OUTSIDE RECORDS SUMMARY | 2025-01-05 14:53 | XMS_ITS | Encounter Summary ---
Author Organization [facility] Address [address] [place] [address] Care Team Providers Care Management Supervisor Name Role Phone Humberto Downs MD Primary Care Provider [phone] Humberto Camarena MD Primary Care Provider + [phone] Encounter Details Date Type Department Care Team (Late st Contact Info) Description 09/17/2024 Orders Only External Location [address] [place] [address] Provider, External Social History Tobacco Use Types [...] EDT us External Provider IMG CT PROCEDURES Edited Resul t - Final documented in this encounter Visit Diagnoses Not on filedocumented in this encounter Care Teams Management Supervisor Relationship Specialty Start Date End Date Humberto Downs MD [address] [place] [address] [place] [address] PCP - General 07/29/20 12/28/24 Humberto Camarena MD [address] [place] [address] PCP - General Internal Medicine 12/29/24 documented as of this encounter
--- OUTSIDE RECORDS SUMMARY | 2025-01-05 14:53 | XMS_ITS | Continuity of Care Document ---
Author Organization [facility] Address [address] [facility] [place] [address] Care Team Providers Care Vamp Liner Name Role Phone MARINA LILIAN Primary Care Provider [phone] Assessment No assessment recorded. Plan of Treatment [...] 2024 025 OBI Not available 12/09/2024 10:09:06 Referral None recorded. Procedures None recorded. Surgeries None recorded. Imaging CT, chest + abdomen + pelvis, w/ contrast - iv contrast only 2024 025 [id number] [facility] (Centralized Scheduling), [address] , [place], [address], 12/31/2024 08:07:30 Medication Orders None recorded. Patient TargetsNo targets recorded. Patient InstructionsNo instructions recorded. Reason for Referral None Reported. Results Created Date Observation Date Name Description Value Unit Range Abnormal Flag Note LastModifiedBy Organization Detail LastModifiedTime 12/10/1912/09/2024 CBC AUTO W DIFF WBC 8.9 K/uL 4.0-10 .5 Not Available [facility] ([facility]) [address], [place], [address], 12/09/2024 09:34:16 12/10/19 25 12/09/2024 CBC AUTO W DIFF RBC 5.0 M/mm3 4.2-6. 4 Not Available [facility] ([facility]) [address] , [place], [address], 12/09/2024 09:34:16 12/10/19 25 12/09/2024 CBC AUTO W DIFF HGB 13.8 gm/dL 12.5-1 6.0 Not Available [facility] ([facility]) [address] , [place], [address], 12/09/2024 09:34:16 12/10/19 25 12/09/2024 CBC AUTO W DIFF HCT 42.3 % 37.0-4 7.0 Not Available [facility] ([facility]) [address] , [place], [address], 12/09/2024 09:34:16 12/10/19 25 12/09/2024 CBC AUTO W DIFF MCV 84.8 fL 78-100 Not Available [facility] ([facility]) [address] , [place], [address], 12/09/2024 09:34:16 12/10/1912/09/2024 CBC AUTO W DIFF MCH 27.7 pg 27-31 Not Available [facility] ([facility]) [address] , [place], [address], 12/09/2024 09:34:16 12/10/19 25 12/09/2024 CBC AUTO W DIFF MCHC 32.6 g/dL 32-36 Not Available [facility] ([facility]) [address] , [place], [address], 12/09/2024 09:34:16 12/10/19 25 12/09/2024 CBC AUTO W DIFF RDW 14.5 % 11.5-1 4.0 high Not Available [facility] ([facility]) [address], [place], [address], 12/09/2024 09:34:16 12/10/19 25 12/09/2024 CBC AUTO W DIFF platelet count 224 K/uL 150-45 0 Not Available [facility] ([facility]) [address], [place], [address], 12/09/2024 09:34:16 12/10/19 25 12/09/2024 CBC AUTO W DIFF MPV 10.1 fL 6-9.5 high Not Available [facility] ([facility]) [address], [place], [address], 12/09/2024 09:34:16 12/10/19 25 12/09/2024 CBC AUTO W DIFF neutrophil% 63.2 % 43-65 Not Available [facility] ([facility]) [address], [place], [address], 12/09/2024 09:34:16 12/10/19 25 12/09/2024 CBC AUTO W DIFF lymphocyte% 23.1 % 20.5-4 5.5 Not Available [facility] ([facility]) [address], [place], [address], 12/09/2024 09:34:16 12/10/1912/09/2024 CBC AUTO W DIFF monocyte% 7.6 % 5.5-11 .7 Not Available [facility] ([facility]) [address], [place], [address], 12/09/2024 09:34:16 12/10/19 25 12/09/2024 CBC AUTO W DIFF eosinophil% 4.5 % 0.9-2. 9 high Not Available [facility] ([facility]) [address] , [place], [address], 12/09/2024 09:34:16 12/10/19 25 12/09/2024 CBC AUTO W DIFF basophil% 0.8 % 0.2-1. 0 Not Available [facility] ([facility]) [address] [facility], [place], [address], 12/09/2024 09:34:16 12/10/19 25 12/09/2024 CBC AUTO W DIFF immature granulocytes % 0.8 % 0.0-0. 8 Not Available [facility] ([facility]) [address] [facility], [place], [address], 12/09/2024 09:34:16 12/10/19 25 12/09/2024 CBC AUTO W DIFF nucleated red blood cells % 0.0 % Not Available [facility] ([facility]) [address] [facility], [place], [address], 12/09/2024 09:34:16 12/10/19 25 12/09/2024 CBC AUTO W DIFF neutrophil# 5.6 K/uL 2.2-4. 8 high Not Available [facility] ([facility]) [address] [place], [address], 12/09/2024 09:34:16 12/10/19 25 12/09/2024 CBC AUTO W DIFF lymphocyte# 2.0 cell/ mcL 1.3-2. 9 Not Available [facility] ([facility]) [address] [place], [address], 12/09/2024 09:34:16 12/10/19 25 12/09/2024 CBC AUTO W DIFF monocyte# 0.7 cell/ mcL 0.3-0. 8 Not Available [facility] ([facility]) [address] [place], [address], 12/09/2024 09:34:16 12/10/19 25 12/09/2024 CBC AUTO W DIFF eosinophil# 0.4 cell/ mcL 0-0.2 high Not Available [facility] ([facility]) [address], [place], [address], 12/09/2024 09:34:16 12/10/19 25 12/09/2024 CBC AUTO W DIFF basophil# 0.1 cell/ mcL 0.0-1. 0 Not Available [facility] ([facility]) [address], [place], [address], 12/09/2024 09:34:16 12/10/19 25 12/09/2024 CBC AUTO W DIFF immature gramulocytes # 0.07 K/uL Not Available [facility] ([facility]) [address], [place], [address], 12/09/2024 09:34:16 12/10/19 25 12/09/2024 CBC AUTO W DIFF nucleated red blood cells # 0.00 K/uL Not Available [facility] ([facility]) [address], [place], [address], 12/09/2024 09:34:16 12/10/1912/09/2024 CBC AUTO W DIFF manual differential NO Not Available [facility] ([facility]) [address], [place], [address], 12/09/2024 09:34:16 12/10/1912/09/2024 COMP METAB OLIC PANEL sodium 139 mmol/ L 136-14 5 Not Available [facility] ([facility]) [address], [place], [address], 12/09/2024 09:46:13 12/10/19 25 12/09/2024 COMP METAB OLIC PANEL potassium 3.8 mmol/ L 3.6-5. 0 Not Available [facility] ([facility]) [address], [place], [address], 12/09/2024 09:46:13 12/10/19 25 12/09/2024 COMP METAB OLIC PANEL chloride 102 mmol/ L 98-107 Not Available [facility] ([facility]) [address] , [place], [address], 12/09/2024 09:46:13 12/10/19 25 12/09/2024 COMP METAB OLIC PANEL carbon dioxide 29.0 mmol/ L 21.0-3 2.0 Not Available [facility] ([facility]) [address] , [place], [address], 12/09/2024 09:46:13 12/10/1912/09/2024 COMP METAB OLIC PANEL anion gap 11.8 Not Available [facility] ([facility]) [address], [place], [address], 12/09/2024 09:46:13 12/10/1912/09/2024 COMP METAB OLIC PANEL glucose 221 mg/dL 70-120 high Not Available [facility] ([facility]) [address], [place], [address], 12/09/2024 09:46:13 12/10/19 25 12/09/2024 COMP METAB OLIC PANEL BUN 21 mg/dL 7-18 high Not Available [facility] ([facility]) [address], [place], [address], 12/09/2024 09:46:13 12/10/1912/09/2024 COMP METAB OLIC PANEL creatinine 0.9 mg/dL 0.6-1. 3 Not Available [facility] ([facility]) [address] [place], [address], 12/09/2024 09:46:13 12/10/19 25 12/09/2024 COMP METAB [...] kenyon ing kiney funct ion. Not Available [facility] ([facility]) [address] , [place], [address], 12/09/2024 09:46:13 12/10/19 25 12/09/2024 COMP METAB OLIC PANEL osmolality (calculated) 299 mOsm/ kg 275-30 1 OSMOL ALITY IS A CALCU LATIO N UTILI ZING THE SERUM /PLAS MA SODIU M, GLUCO SE AND UREA NITRO GEN (BUN) LEVEL S. FOR THE MOST ACCUR ATE RESUL T A MEASU RED SERUM OSMOL ALITY IS SUGERIBERTO WAND. Not Available [facility] ([facility]) [address] , [place], [address], 12/09/2024 09:46:13 12/10/19 25 12/09/2024 COMP METAB OLIC PANEL total protein 6.8 g/dL 6.4-8. 2 Not Available [facility] ([facility]) [address] [facility], [place], [address], 12/09/2024 09:46:13 12/10/1912/09/2024 COMP METAB OLIC PANEL albumin 3.5 g/dL 3.4-5. 0 Not Available [facility] ([facility]) [address] [facility], [place], [address], 12/09/2024 09:46:13 12/10/1912/09/2024 COMP METAB OLIC PANEL globulin 3.3 Not Available [facility] ([facility]) [address] , [place], [address], 12/09/2024 09:46:13 12/10/19 25 12/09/2024 COMP METAB OLIC PANEL alb/glob ratio 1.1 0.7-2 Not Available [facility] ([facility]) [address], [place], [address], 12/09/2024 09:46:13 12/10/19 25 12/09/2024 COMP METAB OLIC PANEL calcium 8.7 mg/dL 8.5-10 .5 Not Available [facility] ([facility]) [address], [place], [address], 12/09/2024 09:46:13 12/10/19 25 12/09/2024 COMP METAB OLIC PANEL bilirubin total 0.30 mg/dL 0.10-1 .00 Not Available [facility] ([facility]) [address], [place], [address], 12/09/2024 09:46:13 12/10/19 25 12/09/2024 COMP METAB OLIC PANEL AST (SGOT) 10 U/L 0-37 Not Available [facility] ([facility]) [address], [place], [address], 12/09/2024 09:46:13 12/10/19 25 12/09/2024 COMP METAB OLIC PANEL ALT (SGPT) 16 U/L 0-65 Not Available [facility] ([facility]) [address], [place], [address], 12/09/2024 09:46:13 12/10/1912/09/2024 COMP METAB OLIC PANEL alk phosphatase 125 U/L 46-116 high Not Available [facility] ([facility]) [address], [place], [address], 12/09/2024 09:46:13 12/10/19 25 12/09/2024 LDH (LD) LDH 172 U/L 0-190 Not Available [facility] ([facility]) [address], [place], [address], 12/09/2024 10:09:06 Result Notes None recorded. Problems Name Problem SNOMED Code Status Onset Date Resolution Date Notes Provider Name and Address Organization Details Recorded Time Anemia 031725342 Active Amy short, MCKINLEY BEARDEN [facility] [place] 4 10:29:57 Abdominal mass 080298225 Active Amy short, MCKINLEY BEARDEN [facility] [place] 4 10:29:57 Lymphadenopath y 78477047 Active Amy short, MCKINLEY BEARDEN [facility] [place] 4 10:29:57 Hyperlipidemia 54069948 Active Amy short, MCKINLEY BEARDEN [facility] [place] 4 10:29:57 Fracture of pelvis 51293203 Active Amy short, MCKINLEY BEARDEN [facility] [place] 4 10:29:57 Problem Notes None recorded. Procedures Surgical History Date Name Laterality Status Provider Name and Address Organization Details Recorded Time hysterectomy completed Amy SEN SULEIMAN [facility] [place] 03/20/2023 10:33:17 banding of varix of stomach completed Amy BEARDEN [facility] [place] 03/20/2023 10:34:08 procedure on ankle [facility] [place] 06/03/2023 13:59:58 Imaging Results None recorded. Procedure Notes None recorded. Medical Equipment None Reported. Allergies Allergen ID Allergen Name Allergen Category Reaction Reaction Severity Criticality Documentation Date Start Date Code Code System Note Provider Name and Address Organization Details Recorded Time 307934 Product containin g penicilli n (product) medicatio n Not available Not available Not available 03/20/2023 00458 8002 SNOMED Other react ions and sever ities : 'Adve rse react ion to subst ance' . CMKINLEY Antunez [facility] [place] 4 10:29:56 Medications Name Sig [...] Available Not Available Not Available Vitamin D3 99947 active Not Available Not Av ailable Not [...] Updated DateTime 5 157.48 cm 36.5 kg/m2 10251.3 2 g 97.4 [degF] 98 % 98 % 96 /min 20 /min 133/71 mm[Hg] Farhana Gilliam [facility] [place] 09:18:13 Social History Question Answer Notes LastModified by Organizat ion Details LastModified Time Tobacco Smoking Status Former Smoker Amy Dustin null, [facility] [place] 03/20/2023 10:32:44 What Is Your Level Of Caffeine Consumption? None Information not available 03/20/2023 When Did You Quit Smoking? 16+yearssinc elastcigaret te [email or web address] Information not available 03/20/2023 What Was The Date Of Your Most Recent Tobacco Screening? 06/03/2023 [email or web address] Information not available 06/03/2023 At What Age Did You Start Smoking Tobacco? 22 [email or web address] Information not available 03/20/2023 Has Tobacco Cessation Counseling Been Provided? No [email or web address] Information not available 03/20/2023 How Many Years Have You Smoked Tobacco? 23 [email or web address] Information not available 03/20/2023 Sex: Unknown Functional Status Question Answer Note LastModified by Organizat ion Details LastModified Time Do you use any illicit or recreational drugs? No [email or web address] Information not available 03/20/2023 Do you or have you ever used any other forms of tobacco or nicotine? No [email or web address] Information not available 03/20/2023 What is your level of alcohol consumption? None [email or web address] Information not available 03/20/2023 Mental Status None recorded. Family History Relationship Description Onset Age of this Age Resolved Age Notes LastModified by Organization Details LastModified Time Father Carcinoma of prostate [email or web address] Not available 06/02 13:57:10 Mother Malignant neoplasm of female breast [email or web address] Not available 06/02 13:57:19 Sister Malignant neoplasm of female breast BC twice .... chemo since 2018, under [facility] [email or web address] Not available 06/03/2023 13:57:59 Sister Malignant neoplasm of thyroid gland [email or web address] Not available 06/02 13:58:23 Sister Primary malignant neoplasm of both ovaries [email or web address] Not available 13:58:50 Medical History No medical history recorded. Gynecological HistoryNo gynecological history recorded. Obstetrics History GPAL:G 0 P 0 0 0 0 Immunizations Vaccine Type Date Status Note Provider Nam e and Address Organization Details Recorded Time Influenza, high-dose, quadrivalent, PF 3 completed MCKINLEY Antunez LPNT [facility] [place] 04/12/2023 08:52:49 COVID-19, mRNA, LNP-S, PF, 100 mcg/0.5mL dose or 50 mcg/0.25mL dose 1 completed MCKINLEY Antunez [facility] [place] 04/12/2023 08:52:49 COVID-19, mRNA, LNP-S, PF, 100 mcg/0.5mL dose or 50 mcg/0.25mL dose 1 completed MCKINLEY Antunez - [facility] - [place] & [place] 04/12/2023 08:52:49 COVID-19, mRNA, LNP-S, PF, 100 mcg/0.5mL dose or 50 mcg/0.25mL dose 1 completed MCKINLEY Antunez LPNT [facility] [place] 04/12/2023 08:52:49 zoster live 4 completed Not Available [facility] 12/09/2024 09:03:33 zoster recombinant 4 completed Not Available [facility] 12/09/2024 09:03:33 Tdap 5 completed Not Available [facility] 12/09/2024 09:03:33 RSV, recombinant, protein subunit RSVpreF, adjuvant reconstituted, 0.5 mL, PF 5 completed Not Available [facility] 12/09/2024 09:03:33 Past Encounters Encounter ID Performer Location Encounter Start Date Encounter Closed Date Diagnosis/Indication Diagnosis SNOMED-CT Code Diagnosis ICD10 Code Diagnosis IMO Codes Diagnosis Note [id number] Leanna Casey PA-C [facility] [address] [place] [address] 12/09/2024 08:57:50 12/09/2024 09:42:05 Antineoplastic chemotherapy regimen 516922895 Z51.11 Week 1 of rituximab on April [...] to monitor for toxicity. Follicular lymphoma [address] scan of the abdomen pelvis [...] 4.7. Hemoglobin 13.6 hematocrit 41.2. Platelet count 399904. Patient completed 4 weeks of rituximab therapy. [...] labs today. 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 Findings follicular lymphoma that is low grade (1/2). Flow cytometry positive for CD10. Cells positive for CD20 as well as CD19. Negative for CD 5 and negative for CD 38. Biopsy site was retroperit rivera lymph node. Nausea 388770219 R11.0 Patient has needed Zofran and Phenergan prescribed . Coronary arteriosclerosis 02147795 I25.10 Patient had a STEMI and had cardiac stents placed June 2023. She continues to follow up with Cardiology . History of anemia 094677 002 Z86.2 232882 Labs during hospital stay in late February [...] Member ID Vieira Member ID Guarantor Name 12/09/2024 1 [place] Domingaomar Scotte [id number] Dominga [place] 12/09/2024 2 [employer] (MEDICARE SUPPLEMENT) Dominga Duglas [id number] Dominga Ardon Notes Date Note Type Note Provider Name and Address Organization Details Recorded Time 12/09/2024 text/html 79 yo F returns for [...] blood count 4.7. Hemoglobin 13.4. Platelet count 222433. Absolute neutrophil count 6.8. Uric acid in [...] 4.7. Hemoglobin 13.6 hematocrit 41.2. Platelet count 732888. Patient completed 4 weeks of rituximab therapy. [...] 2025. Will schedule. Will follow-up labs today. Leanna Casey PA-C [address], [place], [address], [facility] [place] & [place] 12/09/2024 09:26:40 OBGyn Episode No OBEpisode recorded.
--- OUTSIDE RECORDS SUMMARY | 2025-01-05 14:53 | XMS_ITS | Encounter Summary ---
Author Organization [facility] Address [address] [place] [address] Care Team Providers Care Third Grade Teacher Name Role Phone Humberto Downs MD Primary Care Provider Encounter Details Date Type Department Care Team (Late st Contact Info) Description 11/17/2024 Telephone [facility] [place] Andrei [address] [place] [address] [place] [address] Social History Tobacco Use Types Packs/Day Years [...] up with patient after appointment. Katelin Gibbs [facility] Nurse Liaison [phone] documented in this encounter Plan of Treatment Not on file documented as of this encounter Visit Diagnoses Not on filedocumented in this encounter Care Teams Third Grade Teacher Relationship Specialty Start Date End Date Humberto Downs MD [address] [place] [address] PCP - General 07/29/20 12/28/24 documented as of this encounter
--- OUTSIDE RECORDS SUMMARY | 2025-01-05 14:53 | XMS_ITS | Encounter Summary ---
Author Organization [employer] ([place], [place], [place], [place]) Address [address] [place] [address] Care Team Providers Care Olive Grower Name Role Phone Unavailable Primary Care Provider Unavailabl e Encounter Details Date Type Department Care Team (Late st Contact Info) Description 05/04/2019 Transcribed Document [facility] [address] [place] [address] ProviderLexi MD [address] [place] [address] Social History Tobacco Use Types [...] - Historical ProviderMD - 05/04/2019 1:01 PM CRITICAL POWER INSTALL TECHNICIAN Orthopedic Nurse Navigator Entered On: 05/04/2019 13:02 EST Performed On: 05/04/2019 13:01 EST by Alyssia Ashraf Nurse sheet metal smith Nurse Navigator Assessment Joint Navigator Assessment Note : Attempted to call patient, message left. Alyssia Ashraf Nurse RN - 05/04/2019 13:01 EST documented in this encounter Plan of Treatment Not on file documented as of this encounter Visit Diagnoses Not on filedocumented in this encounter
--- OUTSIDE RECORDS SUMMARY | 2025-01-05 14:53 | XMS_ITS | Encounter Summary ---
Author Organization [employer] ([place], [place], [place], [place]) Address [address] [place] [address] Care Team Providers Care Electrician Helper Name Role Phone Unavailable Primary Care Provider Unavailabl e Encounter Details Date Type Department Care Team (Late st Contact Info) Description 04/24/2019 Transcribed Document [facility] [address] [place] [address] ProviderLexi MD [address] [place] [address] Social History Tobacco Use Types [...] - Historical ProviderMD - 04/24/2019 12:07 PM TRIM AND BURR OPERATOR PAT Adult Entered On: 04/24/2019 12:15 EST [...] Source : Stated Height Entry Format : [place] Height, Feet : 5 ft(Converted to: 152 cm, 60 Inch) Height, Inches : 2 Inch(Converted to: 0 ft 2 Inch, 5.08 cm) Clinical Height : 157.48 cm Weight Source : Standing scale Weight Entry Format : [place] Clinical Dosing Weight : 109.09 kg Weight, Pounds : 240 lb Body Surface Area (BSA) : 2.07 m2 Body Mass Index : 44 kg/m2 (>HHI) [place] Body Weight : 50 kg Nuvia Moseley [...] : Standard Tuberculosis Symptoms : None Nuvia Moesley Rn - 04/24/2019 12:07 EST Anesthesia/Transfusion History Family History of Anesthesia Reaction : No prior transfusion(s) Transfusion History : Prior anesthesia without reaction Family History of Anesthesia Reaction : None Nuvia Moseley Rn - 04/24/2019 12:07 EST Advance Directive Patient has Advance Directive *Q : No, patient refuses Advance Directive information Nuvia Moseley Rn - 04/24/2019 12:07 EST [place] Suicide Severity Rating Scale (C-SSRS) CSSRS Past [...] Obtained From : Patient Primary Language : Dutch Preferred Communication Mode : Verbal Communication Barrier [...]
--- OUTSIDE RECORDS SUMMARY | 2025-01-05 14:53 | XMS_ITS | Encounter Summary ---
Author Organization [employer] ([place], [place]) Address [address] [place] [address] Care Team Providers Care Louver Mortiser Operator Name Role Phone Unavailable Primary Care Provider Unavailtruman e Encounter Details Date Type Department Care Team (Late st Contact Info) Description 05/12/2019 Transcribed Document [facility] Medicine [address] [place] [address] ProviderLexi MD [address] [place] [address] Social History Tobacco Use Types [...] - Historical ProviderMD - 05/12/2019 4:12 PM LAB SYSTEMS ANALYST Patient: TAY FONSECA Age: 73 years Sex: [...] causes a rash Thanks, Link Duron, PharmD #[id number] documented in this encounter Plan of Treatment Not on file documented as of this encounter Visit Diagnoses Not on filedocumented in this encounter
--- OUTSIDE RECORDS SUMMARY | 2025-01-05 14:54 | XMS_ITS | Encounter Summary ---
Author Organization [employer] ([place], [place], [place], [place]) Address [address] [place] [address] Care Team Providers Care Digital Communications Manager Name Role Phone Unavailable Primary Care Provider Unavailabl e Encounter Details Date Type Department Care Team (Late st Contact Info) Description 05/16/2019 Transcribed Document [facility] [place] [address] [place] [address] ProviderLexi MD [address] [place] [address] Social History Tobacco Use Types [...] - Historical ProviderMD - 05/16/2019 1:00 AM EEO OFFICER Pain Assessment Entered On: 05/16/2019 4:23 EST [...]
--- OUTSIDE RECORDS SUMMARY | 2025-01-05 14:54 | XMS_ITS | Encounter Summary ---
Author Organization [facility] Address [address] [place] [address] Care Team Providers Care Middle School Teacher Name Role Phone Humberto Camarena MD Primary Care Provider + [phone] Encounter Details Date Type Department Care Team (Latest Contact Info) Description 01/04/2025 Travel Social History Tobacco Use Types Packs/Day [...] Sabine Steward documented as of this encounter Plan of [...] documented as of this encounter Care Teams Middle School Teacher Relationship Specialty Start Date End Date Humberto Camarena MD [address] [place] [address] [place] [address] PCP - General Internal Medicine 12/29/24 documented as of this encounter
--- OUTSIDE RECORDS SUMMARY | 2025-01-05 14:54 | XMS_ITS | Encounter Summary ---
Author Organization Healthcare Address [address] [place] [address] Care Team Providers Care Director Inpatient Headache Program Name Role Phone Humberto Downs MD Primary Care Provider [phone] Humberto Camarena MD Primary Care Provider + [phone] Encounter Details Date Type Department Care Team (Late st Contact Info) Description 12/19/2024 Orders Only External Location [address] [place] [address] Provider, External Social History Tobacco Use Types [...] Procedure Name Priority Date/Time Associated Diagnosis Comments XR MSK OUTSIDE IMAGES 12/19/2024 1:33 PM EDT documented in this encounter Results * XR MSK OUTSIDE IMAGES (12/19/2024 1:33 PM EDT) Anatomical Region Laterality Modality Radiographic Emily ging 12/19/2024 1:33 PM EDT us External Provider IMG XR PROCEDURES Edited Resul t - Final documented in this encounter Visit Diagnoses Not on filedocumented in this encounter Additional Health Concerns Assessment Noted Time A fall risk assessment has been complete d for the patient 11/23/2024 1:01 PM EDT A Body Mass Index follow-up plan has been documented for the patient 11/23/2024 1:44 PM EDT documented as of this encounter Care Teams Director Inpatient Headache Program Relationship Specialty Start Date End Date Humberto Downs MD [address] [place] [address] PCP - General 07/29/20 12/28/24 [place] [address] [place] [address] [address] [facility] [place] [address] [place] [address] PCP - General Internal Medicine 12/29/24 documented as of this encounter
--- OUTSIDE RECORDS SUMMARY | 2025-01-05 14:54 | XMS_ITS | Encounter Summary ---
Author Organization [employer] ([place], [place], [place], [place]) Address [address] [place] [address] Care Team Providers Care Aquaculture Director Name Role Phone Unavailable Primary Care Provider Unavailabl e Encounter Details Date Type Department Care Team (Late st Contact Info) Description 05/25/2019 Transcribed Document [facility] Radiology [address] [place] [address] Alba River MD [address] [place] [address] Social History Tobacco Use Types Packs/Day [...] on 05/12/2019 Documented in Lab Results Review CDS/Demolition Hammer Operator Signature: Donovan Nunes Phone #: [phone] Extn [id number] Date/Time: 05/25/2019 09:40 This is a permanent part of the Medical Record Q54 2019 [facility] Updated: documented in this encounter Plan of Treatment Not on file documented as of this encounter Visit Diagnoses Not on filedocumented in this encounter
--- OUTSIDE RECORDS SUMMARY | 2025-01-05 14:54 | XMS_ITS | Encounter Summary ---
Author Organization [employer] ([place], [place], [place], [place]) Address [address] [place] [address] Care Team Providers Care Global Marketing Operations Manager Name Role Phone Unavailable Primary Care Provider Unavailabl e Encounter Details Date Type Department Care Team (Late st Contact Info) Description 05/16/2019 Transcribed Document [facility] Family Medicine [address] [place] [address] ProviderLexi MD [address] [place] [address] Social History Tobacco Use Types [...] - Lexi ProviderMD - 05/16/2019 12:30 PM ZIPPER SETTER [address] [address] TAY FONSECA Brittany :1945 Visit [...] by family, RN please call report to [phone] fax dc summary to [phone] Continue to use incentive spirometer for approx [...] 1 Tablet(s) Oral Every Day Pickup at [facility] [place] [address] [address] levothyroxine 50 Microgram(s) Oral Every Day simvastatin 40 Milligram(s) Oral Every Evening Pharmacy Information [facility] [facility] [address]: [address] [facility] [address] [place] [phone] Take your medications faithfully. Do NOT skip [...] Barley. Bulgur wheat. Millet. Bran muffins. Popcorn. [place] wafer crackers. Vegetables Sweet potatoes. Spinach. Kale. Artichokes. Cabbage. Broccoli. Green peas. Carrots. Squash. Fruits Berries. Pears. Apples. Oranges. Avocados. Prunes and raisins. Dried figs. Meats and Other Protein Sources [place], kidney, kaplan, and soy beans. Split peas. [...] harrison has 11 g of protein. ??? [place]ajardo seeds ??? 1 oz has 5.5 g [...] floor. ??? Place frequently used items in fvvf-ks-wsluo places ??? Keep electrical cables out of [...] ??? Using the bathroom. ??? Using household ip paralegal or toxic chemicals. ??? Touching or taking [...] Keep items that you use often in nezl-zx-rhbvx places. Lower the shelves around your home [...] the way. ??? Do not use floor trinidadian or wax that makes floors slippery. If [...] Control and Prevention, [place]: https://cdc.gov ??? National [place] on Aging: https://zd8wzbb.bolivar.nih.gov Contact a doctor if: ??? You are [...] 12/29/2009 Document Revised: 10/17/2017 Document Reviewed: 10/17/2017 Davia Interactive Patient Education ?? 2019 NavTech. High-Fiber Diet Fiber, also called dietary fiber, [...] Barley. Bulgur wheat. Millet. Bran muffins. Popcorn. [place] wafer crackers. Vegetables Sweet potatoes. Spinach. Kale. Artichokes. Cabbage. Broccoli. Green peas. Carrots. Squash. Fruits Berries. Pears. Apples. Oranges. Avocados. Prunes and raisins. Dried figs. Meats and Other Protein Sources [place], kidney, kaplan, and soy beans. Split peas. [...] 03/04/2006 Document Revised: 08/09/2016 Document Reviewed: 08/17/2014 Davia Interactive Patient Education ?? 2018 NavTech. hydromorphone (oral) (MIRZA ibanez) Adriana Krishnamurthyalgo What [...] extended-release form of this medicine is for bzhyhd-kra-lfxhl treatment of moderate to severe pain, not [...] against the law. Stop taking all other eobila-dxx-qsrso narcotic pain medications when you start taking [...] may report side effects to FDA at 2-451-EZO-2988. What other drugs will affect hydromorphone? Opioid [...] drugs may affect hydromorphone, including prescription and wfkj-uye-fqpmpof medicines, vitamins, and herbal products. Not all [...] to ensure that the information provided by [employer]. ('Multum') is accurate, up-to-date, and complete, but no guarantee is made to that effect. Drug information contained herein may be time sensitive. Elpas information has been compiled for use by healthcare practitioners and consumers in the [place] and therefore Elpas does not warrant that uses outside of the [place] are appropriate, unless specifically indicated otherwise. [employer] drug information does not endorse drugs, diagnose patients or recommend therapy. [employer] drug information is an informational resource designed [...] effective or appropriate for any given patient. [facility] does not assume any responsibility for any aspect of healthcare administered with the aid of information [facility] provides. The information contained herein is not intended to cover all possible uses, directions, precautions, warnings, drug interactions, allergic reactions, or adverse effects. If you have questions about the drugs you are taking, check with your doctor, nurse or pharmacist. Copyright 7044-3027 [employer]. Version: 9.03. Revision Date: 01/01/2019. gabapentin ([place] [...] are a day sleeper or work a operations supervisor 2nd shift. Some people have thoughts about [...] may report side effects to FDA at 9-345-QUH-0298. What other drugs will affect gabapentin? Using gabapentin with other drugs that slow your breathing can cause dangerous side effects or . Ask your doctor before using opioid medication, a sleeping pill, cold or allergy medicine, a muscle relaxer, or medicine for anxiety or seizures. Other drugs may affect gabapentin, including prescription and zabl-iyh-vdphpib medicines, vitamins, and herbal products. Tell your [...] to ensure that the information provided by [employer]. ('Multum') is accurate, up-to-date, and complete, but no guarantee is made to that effect. Drug information contained herein may be time sensitive. Elpas information has been compiled for use by healthcare practitioners and consumers in the [place] and therefore Elpas does not warrant that uses outside of the [place] are appropriate, unless specifically indicated otherwise. [employer] drug information does not endorse drugs, diagnose patients or recommend therapy. [employer] drug information is an informational resource designed [...] effective or appropriate for any given patient. [employer] does not assume any responsibility for any aspect of healthcare administered with the aid of information Elpas provides. The information contained herein is not intended to cover all possible uses, directions, precautions, warnings, drug interactions, allergic reactions, or adverse effects. If you have questions about the drugs you are taking, check with your doctor, nurse or pharmacist. Copyright 4205-7403 [employer]. Version: 15.01. Revision Date: 03/12/2019. oxycodone (ox [...] The extended-release form of oxycodone is for pwyrqd-uen-thkmt treatment of pain and should not be [...] against the law. Stop taking all other uznpyc-kfw-cvvap narcotic pain medicines when you start taking [...] may report side effects to FDA at 1-998-LKE-1683. What other drugs will affect oxycodone? You [...] may affect oxycodone. This includes prescription and buwk-dld-vvfyfag medicines, vitamins, and herbal products. Not all [...] to ensure that the information provided by [employer]. ('Multum') is accurate, up-to-date, and complete, but no guarantee is made to that effect. Drug information contained herein may be time sensitive. Elpas information has been compiled for use by healthcare practitioners and consumers in the [place] and therefore Elpas does not warrant that uses outside of the [place] are appropriate, unless specifically indicated otherwise. [employer] drug information does not endorse drugs, diagnose patients or recommend therapy. [employer] drug information is an informational resource designed [...] effective or appropriate for any given patient. [employer] does not assume any responsibility for any aspect of healthcare administered with the aid of information Elpas provides. The information contained herein is not intended to cover all possible uses, directions, precautions, warnings, drug interactions, allergic reactions, or adverse effects. If you have questions about the drugs you are taking, check with your doctor, nurse or pharmacist. Copyright 6046-8656 [employer]. Version: 13.03. Revision Date: 12/29/2018. tramadol (TRAM [...] extended-release form of this medicine is for ysoclx-rmz-xvdcd treatment of pain. This form of tramadol [...] against the law. Stop taking all other qglyjx-qsj-djpir narcotic pain medications when you start taking [...]
--- OUTSIDE RECORDS SUMMARY | 2025-01-05 14:54 | XMS_ITS | Clinical Summary ---
Author Organization [facility] Address [address] [place] [address] Phone Care Team Providers Care Grinder Lap Name Role Phone Pcp, Pending Only MD [...] - 1-dose 75+ series) 11/08/2022 Influenza Vaccine (#1) 2024 HPV Aged Out No longer eligi ble based on patient's age to complete this topic Meningococcal conjugate huy nt 4 (MCV4) Aged Out No longer eligible b ased on patient's age to complete this topic RSV Immunization (<20 months) Aged Out No longer eligible based on patient's age to complete this topic Insurance Rupali WAT[place], [place] [id number] MEDICARE on file AARP MCR SUPPLEMENT MEDICARE on file AARP MCR SUPPLEMENT Care Teams Grinder Lap Relationship Specialty Start Date End Date Pcp, Pending Only, [place], [place] [id number] PCP - General Internal Medicine 01/05/13
--- OUTSIDE RECORDS SUMMARY | 2025-01-05 14:54 | XMS_ITS | Encounter Summary ---
Author Organization [employer] ([place], [place], [place], [place]) Address [address] [place] [address] Care Team Providers Care Fuel Cell Builder Name Role Phone Unavailable Primary Care Provider Unavailabl e Encounter Details Date Type Department Care Team (Late st Contact Info) Description 05/16/2019 Transcribed Document [facility] Family Medicine [address] [place] [address] ProviderLexi MD [address] [place] [address] Social History Tobacco Use Types [...] - Lexi ProviderMD - 05/16/2019 3:17 PM WILTON WEAVER Patient: TAY FONSECA Age: 73 Years Sex: [...]
--- OUTSIDE RECORDS SUMMARY | 2025-01-05 14:54 | XMS_ITS | Encounter Summary ---
Author Organization Healthcare Address [address] [place] [address] Care Team Providers Care Cotton Ginner Helper Name Role Phone Humberto Downs MD Primary Care Provider [phone] Humberto Camarena MD Primary Care Provider + [phone] Encounter Details Date Type Department Care Team (Late st Contact Info) Description 09/24/2024 Orders Only External Location [address] [place] [address] Provider, External Social History Tobacco Use Types [...] on filedocumented in this encounter Care Teams Cotton Ginner Helper Relationship Specialty Start Date End Date Humberto Downs MD [address] [place] [address] [place] [address] PCP - General 07/29/20 12/28/24 Humberto Camarena MD [address] [place] [address] [place] [address] PCP - General Internal Medicine 12/29/24 documented as of this encounter
--- OUTSIDE RECORDS SUMMARY | 2025-01-05 14:54 | XMS_ITS | Encounter Summary ---
Author Organization Healthcare Address [address] [place] [address] Care Team Providers Care Antenna Installer Name Role Phone Humberto Downs MD Primary Care Provider [phone] Humberto Camarena MD Primary Care Provider + [phone] Encounter Details Date Type Department Care Team (Late st Contact Info) Description 09/17/2024 Orders Only External Location [address] [place] [address] Provider, External Social History Tobacco Use Types [...] on filedocumented in this encounter Care Teams Antenna Installer Relationship Specialty Start Date End Date Humberto Downs MD [address] [place] [address] [place] [address] PCP - General 07/29/20 12/28/24 Humberto Camarena MD [address] [place] [address] [place] [address] PCP - General Internal Medicine 12/29/24 documented as of this encounter
--- OUTSIDE RECORDS SUMMARY | 2025-01-05 14:54 | XMS_ITS | Encounter Summary ---
Author Organization [employer] ([place], [place], [place], [place]) Address [address] [place] [address] Care Team Providers Care Sound Recordist Name Role Phone Unavailable Primary Care Provider Unavailabl e Encounter Details Date Type Department Care Team (Late st Contact Info) Description 05/16/2019 Transcribed Document [facility] [place] [place] [address] [place] [address] ProviderLexi MD [address] [place] [address] Social History Tobacco Use [...] - Historical ProviderMD - 05/16/2019 2:00 AM RAD TECHNOLOGIST Manager Cleaning Details Entered On: 05/16/2019 4:23 EST Performed [...]
--- OUTSIDE RECORDS SUMMARY | 2025-01-05 14:54 | XMS_ITS | Encounter Summary ---
Author Organization [employer] ([place], [place], [place], [place]) Address [address] [place] [address] Care Team Providers Care Weld Engineer Name Role Phone Unavailable Primary Care Provider Unavailabl e Encounter Details Date Type Department Care Team (Late st Contact Info) Description 05/16/2019 Transcribed Document [facility] Family Medicine [address] [place] [address] ProviderLexi MD [address] [place] [address] Social History Tobacco Use Types [...] Lexi Walsh MD - 05/16/2019 12:29 PM CARDIAC REHAB NURSE Patient Education Materials Follows: What to expect [...] Barley. Bulgur wheat. Millet. Bran muffins. Popcorn. [place] wafer crackers. Vegetables Sweet potatoes. Spinach. Kale. Artichokes. Cabbage. Broccoli. Green peas. Carrots. Squash. Fruits Berries. Pears. Apples. Oranges. Avocados. Prunes and raisins. Dried figs. Meats and Other Protein Sources [place], kidney, kaplan, and soy beans. Split peas. [...] harrison has 11 g of protein. ?? [place] seeds ??? 1 oz has 5.5 g [...] floor. ?? Place frequently used items in ivtr-dy-obils places ?? Keep electrical cables out of [...] ?? Using the bathroom. ?? Using household ec teacher or toxic chemicals. ?? Touching or taking [...] Keep items that you use often in onsl-fi-omsbt places. Lower the shelves around your home [...] the way. ??? Do not use floor colombian or wax that makes floors slippery. If [...] Control and Prevention, [place]: https://cdc.gov ??? National [place]ann[place] on Aging: https://tf2bpvj.bolivar.nih.gov Contact a doctor if: ??? You are [...] 12/29/2009 Document Revised: 10/17/2017 Document Reviewed: 10/17/2017 PeopleMatter Interactive Patient Education ? 2019 PeopleMatter Inc. High-Fiber Diet Fiber, also called dietary [...] Barley. Bulgur wheat. Millet. Bran muffins. Popcorn. [place] wafer crackers. Vegetables Sweet potatoes. Spinach. Kale. Artichokes. Cabbage. Broccoli. Green peas. Carrots. Squash. Fruits Berries. Pears. Apples. Oranges. Avocados. Prunes and raisins. Dried figs. Meats and Other Protein Sources [place], kidney, kaplan, and soy beans. Split peas. [...] 08/17/2014 Elsevier Interactive Patient Education ? 2018 PeopleMatter Inc. documented in this encounter Plan of Treatment Not on file documented as of this encounter Visit Diagnoses Not on filedocumented in this encounter
--- OUTSIDE RECORDS SUMMARY | 2025-01-05 14:54 | XMS_ITS | Encounter Summary ---
Author Organization Healthcare Address [address] [place] [address] Care Team Providers Care Heating Repair Technician Name Role Phone Humberto Downs MD Primary Care Provider [phone] Humberto Camarena MD Primary Care Provider + [phone] Encounter Details Date Type Department Care Team (Late st Contact Info) Description 12/19/2024 Orders Only External Location [address] [place] [address] Provider, External Social History Tobacco Use Types [...] documented as of this encounter Care Teams Heating Repair Technician Relationship Specialty Start Date End Date Humberto Downs MD [address] [place] [address] PCP - General 07/29/20 12/28/24 [place] [address] [place] [address] [address] [facility] [address] [place] [address] PCP - General Internal Medicine 12/29/24 documented as of this encounter
--- OUTSIDE RECORDS SUMMARY | 2025-01-05 14:54 | XMS_ITS | Clinical Summary ---
Author Organization [employer] ([place], [place], [place], [place]) Address [address] [place] [address] Care Team Providers Care Hand Coremaker Name Role Phone Unavailable Primary Care Provider [...]
--- OUTSIDE RECORDS SUMMARY | 2025-01-05 14:55 | XMS_ITS | Encounter Summary ---
Author Organization Healthcare Address [address] [place] [id number] Care Team Providers Care Manager Adobe Name Role Phone Humberto Camarena MD Primary Care Provider + [phone] Reason for Visit * Reason Onset Date Comments HCN Clinical Concern/Question 12/29/2024 Encounter Details Date Type Department Care Team (Late st Contact Info) Description 12/29/2024 Telephone [facility] [address] [facility] 5th Floor [address] [place] [address] Yifan Reveles MD [address] [facility] [address] [place] [address] HCN Clinical Concern/Question Social History [...] encounter Miscellaneous Notes * Telephone Encounter - Luisa Lares - 12/29/2024 8:10 AM EDT Clinical Concern/Question Reason for Call Patient went to Neuro [facility] appt and she told her she should not come back to [place]. But patient thinks she should still be seen in clinic, asking for advise. She referred her to Hinduism to Fuad but does not want to go to him. Unless [facility] agrees Best contact number: [phone] (home) Optimal time of day to reach caller: ANYTIME Additional comments/information from caller: None Note: Please do not reply to this message. Follow-up communication and further actions as a result of this message need to be communicated with the patient directly, if the patient is not active onMyChart. If the patient is active on MyChart, they will receive notification of the communication/outcome via [facility]MSC. documented in this encounter Plan of Treatment [...] documented as of this encounter Care Teams Manager Adobe Relationship Specialty Start Date End Date Humberto Camarena MD [address] [place] [address] [place] [address] PCP - General Internal Medicine 12/29/24 documented as of this encounter
--- OUTSIDE RECORDS SUMMARY | 2025-01-05 14:55 | XMS_ITS | Encounter Summary ---
Author Organization [employer] ([place], [place], [place], [place]) Address [address] [place] [address] Care Team Providers Care Swahili Teacher Name Role Phone Unavailable Primary Care Provider Unavailabl e Encounter Details Date Type Department Care Team (Late st Contact Info) Description 05/16/2019 Transcribed Document [facility] [place] Family Medicine [address] [place] [address] ProviderLexi MD [address] [place] [address] Social History Tobacco Use Types [...] - Lexi ProviderMD - 05/16/2019 9:53 AM VIDEO COORDINATOR Discharge Instructions Entered On: 05/16/2019 9:55 EST [...] 05/16/2019 9:53 EST Electronically signed by Angelika [facility] Conversion Governor Assembler Hydraulic Cerner at 07/02/2022 4:51 PM CDT documented in this encounter Plan of Treatment Not on file documented as of this encounter Visit Diagnoses Not on filedocumented in this encounter
--- OUTSIDE RECORDS SUMMARY | 2025-01-05 14:55 | XMS_ITS | Encounter Summary ---
Author Organization [employer] ([place], [place], [place], [place]) Address [address] [place] [address] Care Team Providers Care Health And Safety Director Name Role Phone Unavailable Primary Care Provider Unavailabl e Encounter Details Date Type Department Care Team (Late st Contact Info) Description 05/16/2019 Transcribed Document [facility] [place] [address] [place] [address] ProviderLexi MD [address] [place] [address] Social History Tobacco Use Types [...] - Historical ProviderMD - 05/16/2019 2:42 PM FILTERER On Going Discharge Planning Entered On: 05/16/2019 14:47 EST Performed On: 05/16/2019 14:42 EST by KYRA ZEPEDA RN-Women'S Lacrosse CoachSales Store Checker Progress Note Discharge Arrangements : Patient Post-Acute Information Patient Name: TAY FONSECA Gender: Female : [birth year] Age: 73 Years No Post-Acute Placement(s) Listed No Post-Acute Service(s) Listed No [place] Referral(s) Listed Discharge Options Discussed with Patient : Short term rehabilitation Patient Offered Choice/Affiliations Explained : Yes KYRA ZEPEDA RN-Women'S Lacrosse Coach - 05/16/2019 14:42 EST Narrative Progress Note Narrative Progress Note : Dr River dictated a dc summary, however, is not showing up for anyone to see. Cm contacted [facility] in regards of having someone check [...] go ahead and fax dc summary to [facility] and to have nurse call report........sds Historical Progress Note : Pt has been changed to in pt status per [facility]. referrals sent out via [facility] facilities per pts choice. SANDRA DEL ANGEL, Care Management-Audiology Doctor - 05/13/19 10:07:21 KYRA ZEPEDA, RN-Women'S Lacrosse Coach - 05/16/2019 14:42 EST Electronically signed by [facility] Conversion Central Supply Assistant Cerner at 07/02/2022 4:57 PM CDT documented in this encounter Plan of Treatment Not on file documented as of this encounter Visit Diagnoses Not on filedocumented in this encounter
--- OUTSIDE RECORDS SUMMARY | 2025-01-05 14:55 | XMS_ITS | Encounter Summary ---
Author Organization [employer] ([place], [place], [place], [place]) Address [address] [place] [address] Care Team Providers Care Chamber Of Commerce Division Manager Name Role Phone Unavailable Primary Care Provider Unavailabl e Encounter Details Date Type Department Care Team (Late st Contact Info) Description 05/16/[address] [facility] [place] Family Medicine [address] [place] [address] ProviderLexi MD [address] [place] [address] Social History Tobacco Use Types [...] - Historical ProviderMD - 05/16/2019 4:01 PM STATION CHIEF Nursing Discharge Summary Entered On: 05/16/2019 16:02 [...] 05/16/2019 16:01 EST Electronically signed by Angelika, [facility] Conversion Mophead Trimmer And Wrapper Cerner at 07/02/2022 4:53 PM CDT documented in this encounter Plan of Treatment Not on file documented as of this encounter Visit Diagnoses Not on filedocumented in this encounter
--- OUTSIDE RECORDS SUMMARY | 2025-01-05 14:55 | XMS_ITS | Encounter Summary ---
Author Organization [employer] ([place], [place], [place], [place]) Address [address] [place] [address] Care Team Providers Care Magistrate Judge Name Role Phone Unavailable Primary Care Provider Unavailabl e Encounter Details Date Type Department Care Team (Late st Contact Info) Description 05/16/2019 Transcribed Document [facility] [place] Medicine [address] [place] [address] ProviderLexi MD [address] [place], [...] - Historical ProviderMD - 05/16/2019 4:00 PM PUBLIC SCHOOL TEACHER Discharge Summary, PT Entered On: 05/19/2019 11:00 EST Performed On: 05/16/2019 16:00 EST by WILIAN KENNEDY, PT Discharge Summary Reason for Discharge : Discharged from hospital Discharged to, Therapy : Unit, assisted Discharge Summary Comment, PT : 35 acute PT goals met. Modified Independent with transfers Ambulated 200' with RWx SBA/CGA 25# WB R LE PAULA HEP AROM x 20 reps D/C to [facility] for continued care and rehab on 05/16/19. WILIAN KENNEDY, PT - 05/19/2019 10:59 EST Skilled Nursing Goals Other PT LTG Grid Goal #1 [...]
== END 2025-01-05 23:59 | disposition home or self-care (01) ==
LOC: RAD 14:46
PROVIDERS: PCP Internal Medicine Adolescent Medicine; Visit Provider Physician Assistant
DX: M19.072 Primary osteoarthritis, left ankle and foot (principal)
CPT/HCPCS: 73630

== ENCOUNTER 2025-01-07 14:55 | Outpatient (CLI) | payer MEDICARE, SELFPAY ==
--- OUTSIDE RECORDS SUMMARY | 2024-08-22 17:30 | XMS_ITS ---
Author Organization [facility] ([facility] Address [address] [place] [address] Care Team Providers Care Medical Chemist Name Role Phone Migration, Provider Unavailable Unavailable Allergies Allergen (clinical drug ingredient) Drug/Non Drug Allergy documented on EMR Reaction Allergy Type Onset Date Status Penicillin hives Drug Allergy Active Trace Metals rash Drug Allergy 06/11/2019 Act dudley [facility] Conversion Encounter Medications Medication SIG (Take, Route, [...] day Active Vitamin D (Ergocalciferol) 1.25 MG (73081 UT) Capsule 1 cap(s) orally once a week Active Encounters Encounter Location Date Provider Diagnosis [facility] [address] [place] [address] 08/22/2024 Provider Migration Plan Of Treatment No Information Progress Notes * MARIAN HellenomarDOB:1945 (79 yo F)Acc No.[id number]:08/22/2024 Patient: N cheyenneDominga Provider: :1945 A ge:78 Y S ex:Female Date:08/22/2024 Address:[address] [place], [place] [id number] Subjective: * Chief Complaints: * M ultum [...] (at bedtime) Vitamin D (Ergocalciferol) 1.25 MG (01571 UT) Capsule 1 cap(s) orally once a [...] bedtime) Taking Vitamin D (Ergocalciferol) 1.25 MG (37436 UT) Capsule 1 cap(s) orally once a week Taking glipiZIDE 10 MG Tablet 2 tab(s) orally once a day * Allergies: P enicillin: hivesTrace Metals: rash - Onset Date 06/11/2019 * Electronic signature of Prov ider Migration on 01/07/2025 at 03:27 PM EDT Sign off status: Pending * Provider: Date: 0 08/22/2024 Generated for Freddy boswell/Earnest/Richyitting on: 03:27 PM EDT
--- OUTSIDE RECORDS SUMMARY | 2024-11-23 13:00 | XMS_ITS | Encounter Summary ---
Author Organization Healthcare Address [address] [id number] Care Team Providers Care Transportation Equipment Painter Name Role Phone Humberto Downs MD Primary Care Provider [phone] Reason for Referral * Imaging (Routine) - Closed Specialty Diagnoses / Procedures Referred By Contac t Referred To Contact Cardiology Diagnoses VBI (vertebrobasilar insufficiency) Procedures VAS US Carotid Duplex Bilateral Yifan Reveles MD [address] [facility] [address] [place] [address] Phone: tel: fax: Referral ID Status Reason Start Date Expiration Date V isits Requested Visits Authorized [id number] Closed Perform Procedure 11/23/2024 05/25/2026 1 1 Reason for Visit * Reason Comments Dizziness Coronary artery disease involving [place] coronary artery of * Consultation (Routine) - Closed Specialty Diagnoses / Procedures Referred By Contact Referred To Contact Vascular Surgery [facility] Diagnoses Dizziness Coronary artery disease involving [place] coronary artery of [place] heart, unspecified whether angina present Zane Lowe PA [address] [place] [address] Phone: tel:[phone] fax:[phone] [facility] [address] [facility] 5[address] [place] [address] Phone: tel: fax: Referral ID Status Reason Start Date Expiration Date V isits Requested Visits Authorized [id number] Closed Specialty Services Required 10/15/2024 04/16/2026 1 1 Encounter Details Date Type Department Care Team (Latest Contact Info) Description 11/23/2024 1:00 PM EDT Office Visit [facility] [address] [place] [address] Yifan Reveles MD [address] [facility] [address] [place] [address] VBI (vertebrobasilar insufficiency) (Primary Dx) [...] - Doctor) [facility] - [facility] I personally and independently reviewed and interpreted the CT Images from today's visit which showed: Occlusion of proximal right vertebral artery with some reconstitution of the posterior [place] from the left vertebral. Possible ostial stenosis [...] on file documented as of this encounter Results * VAS US Carotid Duplex Bilateral (01/04/2025 2:05 PM EDT) Anatomical Region Laterality Modality Head, Neck, Vascular Ultrasound Impressions 01/06/2025 5:51 PM EDT Right: Significant irregular heterogenous plaque is demonstrated at the bifurcation and proximal ICA. Flow is present in the CCA, ICA, and ECA. Elevated ICA velocities and ICA/CCA ratio of 5,demonstrate evidence of a hemodynamically significant stenosis (>70%). Left: irregular heterogenous plaque is demonstrated at the bifurcation and proximal ICA. Flow is present in the CCA, ICA, and ECA. ICA velocities do not demonstrate evidence of a hemodynamically significant stenosis (less than 50%). Vertebral artery flow is antegrade, bilaterally. There is a noted lack of diastolic flow in the right vertebral artery consistent with distal occlusive disease. Subclavian artery flow is multiphasic, bilaterally. COMMUNICATION: Per this written report. Preliminary report signed by Janet Min on 01/04/2025 2:39 PM By electronically signing this report, I, the attending physician, attest that I have personally reviewed the images/data for the above examination(s) and I agree with the final edited report. Drafted by Janet Min on 01/04/2025 2:31 PM Final report signed by Roberto Costa MD on 01/06/2025 5:51 PM Narrative 01/06/2025 5:51 PM EDT CLINICAL INDICATION: Vertebral basilar occlusive disease. TECHNIQUE: Non-invasive, real time duplex exam of the extracranial carotid circulation with Doppler ultrasonic waveform and spectral analysis was performed. COMPARISON: None. FINDINGS: Right: CCA: 73 cm/sec. ECA: 89 cm/sec. ICA: 369/83 cm/sec. ICA/CCA ratio: 5 Vertebral A: 38 cm/sec. Subclavian A: 151 cm/sec. Left: CCA: 92 cm/sec. ECA: 81 cm/sec. ICA: 139/40 cm/sec. ICA/CCA ratio: 1.5 Vertebral A: 58 cm/sec. Subclavian A: 147 cm/sec. Procedure Note Roberto Costa MD - 01/06/2025 CLINICAL INDICATION: Vertebral basilar occlusive disease. TECHNIQUE: Non-invasive, real time duplex exam of the extracranial carotidcirculation with Doppler ultrasonic waveform and spectral analysis wasperformed. COMPARISON: None. FINDINGS: Right: CCA: 73 cm/sec. ECA: 89 cm/sec. ICA: 369/83 cm/sec. ICA/CCA ratio: 5 Vertebral A: 38 cm/sec. Subclavian A: 151 cm/sec. Left: CCA: 92 cm/sec. ECA: 81 cm/sec. ICA: 139/40 cm/sec. ICA/CCA ratio: 1.5 Vertebral A: 58 cm/sec. Subclavian A: 147 cm/sec. IMPRESSION: Right: Significant irregular heterogenous plaque is demonstrated at thebifurcation and proximal ICA. Flow is present in the CCA, ICA, and ECA.Elevated ICA velocities and ICA/CCA ratio of 5,demonstrate evidence of ahemodynamically significant stenosis (>70%). Left: irregular heterogenous plaque is demonstrated at the bifurcation andproximal ICA. Flow is present in the CCA, ICA, and ECA. ICA velocitiesdo not demonstrate evidence of a hemodynamically significant stenosis(less than 50%). Vertebral artery flow is antegrade, bilaterally. There is a noted lack of diastolic flow in the right vertebral arteryconsistent with distal occlusive disease. Subclavian artery flow is multiphasic, bilaterally. COMMUNICATION: Per this written report. Preliminary report signed by Janet Min on 01/04/2025 2:39 PM By electronically signing this report, I, the attending physician, attestthat I have personally reviewed the images/data for the aboveexamination(s) and I agree with the final edited report. Drafted by Janet Min on 01/04/2025 2:31 PM Final report signed by Roberto Costa MD on 01/06/2025 5:51 PM Yifan Reveles MD CV VASCULAR PROCEDURES Final R esult documented in this encounter Visit Diagnoses Diagnosis VBI (vertebrobasilar insufficiency)- Primary VBI (vertebrobasilar insufficiency) documented in this encounter Additional Health Concerns Assessment Noted Time A fall risk assessment has been complete d for the patient 11/23/2024 1:01 PM EDT A Body Mass Index follow-up plan has been documented for the patient 11/23/2024 1:44 PM EDT documented as of this encounter Care Teams Transportation Equipment Painter Relationship Specialty Start Date End Date Humberto Downs MD [address] [place] [address] PCP - General 07/29/20 12/28/24 documented as of this encounter
--- OUTSIDE RECORDS SUMMARY | 2025-01-04 13:22 | XMS_ITS | Encounter Summary ---
Author Organization Healthcare Address [address] [id number] Care Team Providers Care Academic Department Chair Name Role Phone Humberto Camarena MD Primary Care Provider + [phone] Reason for Referral * Imaging (Routine) - Closed Specialty Diagnoses / Procedures Referred By Songac t Referred To Contact Cardiology Diagnoses VBI (vertebrobasilar insufficiency) Procedures VAS US Carotid Duplex Bilateral Yifan Reveles MD [address] [address] Phone: tel: fax: Referral ID Status Reason Start Date Expiration Date V isits Requested Visits Authorized [id number] Closed Perform Procedure 11/23/2024 05/25/2026 1 1 Reason for Visit * Imaging (Routine) - Closed Specialty Diagnoses / Procedures Referred By Angela roe Referred To Contact Cardiology Diagnoses VBI (vertebrobasilar insufficiency) Procedures VAS US Carotid Duplex Bilateral Yifan Reveles MD [id number] [place] [address] Phone: tel: fax: Referral ID Status Reason Start Date Expiration Date V isits Requested Visits Authorized [id number] Closed Perform Procedure 11/23/2024 05/25/2026 1 1 Encounter Details Date Type Department Care Team (Latest Contact Info) Description 01/04/2025 1:22 PM EDT - 01/04/2025 11:59 PM EDT Hospital Encounter [facility] Lab [address] 5th Floor [address] [place] [address] VBI (vertebrobasilar insufficiency) Discharge Disposition: [...] as of this encounter Plan of Treatment Not on file documented as of this encounter Procedures Procedure Name Priority Date/Time Associated Diagnosis Comments VAS US CAROTID DUPLEX BILATERAL Routine 01/04/2025 2:05 PM EDT VBI (vertebrobasilar insufficiency) documented in this encounter Results * VAS US Carotid [...] Roberto Costa MD on 01/06/2025 5:51 PM us Yifan Reveles MD CV VASCULAR PROCEDURES Final [...] documented as of this encounter Care Teams Academic Department Chair Relationship Specialty Start Date End Date Humberto Camarena MD [address] [place] [address] PCP - General Internal Medicine 12/29/24 documented as of this encounter
--- OUTSIDE RECORDS SUMMARY | 2025-01-04 14:40 | XMS_ITS | Encounter Summary ---
Author Organization Healthcare Address [address] [id number] Care Team Providers Care Poured Pipe Maker Name Role Phone Humberto Camarena MD Primary Care Provider + [phone] Reason for Referral * Imaging (Routine) - Pending Review Specialty Diagnoses / Procedures Referred By Contac t Referred To Contact Radiology Diagnoses VBI (vertebrobasilar insufficiency) Asymptomatic bilateral carotid artery stenosis Procedures CT Angio Head Yifan Reveles MD [address] [address] Phone: tel: fax: Referral ID Status Reason Start Date Expiration Date V isits Requested Visits Authorized [id number] Pending Review 01/04/2025 07/06/2026 1 1 * Imaging (Routine) - Pending Review Specialty Diagnoses / Procedures Referred By Contac t Referred To Contact Radiology Diagnoses VBI (vertebrobasilar insufficiency) Asymptomatic bilateral carotid artery stenosis Procedures CT Angio Neck Yifan Reveles MD [id number] [place] [address] Phone: tel: fax: Referral ID Status Reason Start Date Expiration Date V isits Requested Visits Authorized [id number] Pending Review 01/04/2025 07/06/2026 1 1 Reason for Visit * Reason Comments VBI (vertebrobasilar insufficiency) Encounter Details Date Type Department Care Team (Latest Contact Info) Description 01/04/2025 2:40 PM EDT Office Visit [facility] [address] 5[address] Floor [address] [place] [address] Yifan Reveles MD [address] [facility] [address] [place] [address] VBI (vertebrobasilar insufficiency) (Primary Dx); Asymptomatic bilateral carotid artery stenosis Social History Tobacco Use Types Packs/Day Years [...] Sign Reading Time Taken Comments Blood Pressure 125/66 01/04/2025 2:23 PM EDT Pulse 102 01/04/2025 2:08 PM EDT Temperature 36.4 C (97.5 F) 01/04/2025 2:08 PM EDT Respiratory Rate - - Oxygen Saturation 96% 01/04/2025 2:08 PM EDT Inhaled Oxygen Concentration - - Weight 90.9 kg (200 lb 6.4 oz) 01/04/2025 2:08 P M EDT Height 157.5 cm (5' 2 ) 01/04/2025 2:08 PM EDT Body Mass Index 36.65 01/04/2025 2:08 PM EDT documented in this encounter Functional Status * AUDIT-C Score [...] Sabine Steward documented as of this encounter Miscellaneous Notes * Progress Notes - Yifan Reveles MD - 01/04/2025 2:40 PM EDT Humberto Zhou MD, History of Present Illness The patient is a female who presents for evaluation of dizziness. She was previously seen a few months ago, at which time an ultrasound was recommended. She has beenexperiencing persistent dizziness since her last visit, necessitating the use of a cane for mobility. The dizziness is constant and occurs even when she is stationary. She consulted with Dr. Maribel Hernandez, a neurologist, who advised her to seek further evaluation from Dr. Brad Kumar at [facility] for carotid stenting. However, she has not yet followed this advice. Dr. Hernandez conducted a sleep apnea test, which yielded a result of 81 percent. She was also informed of a potential risk of stroke. She is currently on aspirin and cholesterol medication but is not taking any other anticoagulant s. She does not smoke. SOCIAL HISTORY Tobacco: The patient does not smoke. Vascular Surgery History: (Date - Procedure - Hospital - Doctor) none I personally and independently reviewed and interpreted the Vascular Lab Images from today's visit which showed: FINDINGS: Right: CCA: 73 cm/sec. ECA: 89 [...] There is a noted lack of diastolic santi Her chronic comorbid conditions that impact our treatment planning include: I reviewed the following co-morbidities which are stable and controlled: Patient Active Problem List Diagnosis Date Noted Asymptomatic bilateral carotid artery stenosis 01/04/2025 VBI (vertebrobasilar insufficiency) 11/23/2024 The following portions of the chart were reviewed this encounter and updated as appropriate: Tobacco Allergies Meds Problems Med Hx Surg Hx Fam Hx Subjective Review of Systems Objective Physical Exam Constitutional: well developed, well nourished, and in no acute distress Physical Exam General: Patient appears well-nourished and in no acute distress. Assessment/Plan In Summary: Dominga Ardon is a 79 y.o. year old female who we saw today in clinic. I discussed the test interpretations and management with associated orders of the following medical conditions of: Problem List Items Addressed This Visit VBI (vertebrobasilar insufficiency) - Primary Relevant Orders CT Angio Neck CT Angio Head Asymptomatic bilateral carotid artery stenosis Relevant Orders CT Angio Neck CT Angio Head We will see her back for: Follow up in 1 month (on 02/04/2025). The patient was counseled on the importance of: . Assessment & Plan 1. VBI. Dizziness is could be due to compromised blood flow to the brain, as evidenced by the ultrasound results showing significant stenosis in the right carotid artery and blockage in the right vertebral artery. The risk of stroke remains low but is slightly elevated. A comprehensive discussion was held regarding potential treatment options, including right carotid intervention or left vertebral artery transposition. The right carotid intervention is a more straightforward procedure, whereas the left vertebral artery transposition is more challenging but may provide better results. A CAT scan with contrast of the head and neck will be ordered to further evaluate the blood flow to the brain. The patientis advised to continue her current medication regimen, including aspirin and cholesterol medication, and to maintain balance. The results of the CAT scan will guide the decision on whether to proceedwith right carotid intervention or left vertebral artery transposition. Follow-up Follow-up in 1 month. documented in this encounter Plan of Treatment Scheduled Orders Name Type Priority Associated Diagnoses Orde r Schedule CT Angio Neck Imaging Routine VBI (vertebrobasilar insufficiency) Asymptomatic bilateral carotid artery stenosis Expected: 02/04/2025 (Approximate), Expires: 07/08/2026 CT Angio Head Imaging Routine VBI (vertebrobasilar insufficiency) Asymptomatic bilateral carotid artery stenosis Expected: 02/04/2025 (Approximate), Expires: 07/08/2026 documented as of this encounter Visit Diagnoses Diagnosis VBI (vertebrobasilar insufficiency)- Primary Asymptomatic bilateral carotid artery stenosis documented in this encounter Additional Health Concerns Assessment Noted Time A fall risk assessment has been complete d for the patient 01/04/2025 2:21 PM EDT A Body Mass Index follow-up plan has been documented for the patient 01/04/2025 3:12 PM EDT documented as of this encounter Care Teams Poured Pipe Maker Relationship Specialty Start Date End Date Humberto Camarena MD [address] [place] [address] PCP - General Internal Medicine 12/29/24 documented as of this encounter
--- NOTE | 2025-01-07 14:57 | MM_ITS ---
PROCEDURE INFORMATION: Exam: Bilateral Screening 3D Mammography Exam date and time: 01/07/2025 3:02 PM Age: 79 years old Clinical indication: Screening examination TECHNIQUE: Imaging protocol: Bilateral Screening tomosynthesis and 2D mammography including computer-aided detection (CAD) when performed. COMPARISON: 1. MG DMSB DIG MAMM-SCREEN ANGELICA 08/10/2015 10:11 AM 2. MG DIGMAMMS MAMMOGRAM SCREEN-LINING MAKER N/C 06/12/2006 2:58 PM FINDINGS: MAMMOGRAPHY: Breast composition: There are scattered areas of fibroglandular density. Mass: None. Architectural distortion: None. Calcifications: Calcifications in the upper-outer right breast, middle depth, which may be related to metallic artifact from ointment/deodorant on the skin. Asymmetric density: None. Skin thickening: None. Axillary adenopathy: None. IMPRESSION: Patient to be recalled for spot magnification views of the right breast in the CC and MLO projections for further evaluation of possible right breast calcifications. Initially, the skin should be wiped down for any possible metal containing ointment or deodorant. ASSESSMENT: BI-RADS Category 0: Incomplete- Need Additional Imaging Evaluation.
--- OUTSIDE RECORDS SUMMARY | 2025-01-07 15:22 | XMS_ITS | Encounter Summary ---
Author Organization [employer] ([place], [place], [place], [place]) Address [address] [place] [address] Care Team Providers Care Traffic Warehouse Supervisor Name Role Phone Unavailable Primary Care Provider Unavailabl e Encounter Details Date Type Department Care Team (Late st Contact Info) Description 05/14/2019 Transcribed Document [facility] [place] [address] [place] [address] ProviderLexi MD [address] [place] [address] Social History Tobacco Use Types [...] - Historical ProviderMD - 05/14/2019 2:00 PM FORMING MACHINE TENDER Pain Assessment Entered On: 05/14/2019 14:15 EST [...]
--- OUTSIDE RECORDS SUMMARY | 2025-01-07 15:22 | XMS_ITS | Encounter Summary ---
Author Organization [employer] ([place], [place], [place]) Address [address] [place] [address] Care Team Providers Care Manager [place] Name Role Phone Unavailable Primary Care Provider Unavailabl e Encounter Details Date Type Department Care Team (Late st Contact Info) Description 05/14/2019 Transcribed Document [facility] [place] [address] [place] [address] ProviderLexi MD [address] [place] [address] Social History Tobacco Use Types [...] - Historical ProviderMD - 05/14/2019 8:00 AM METAL BONDER Pain Assessment Entered On: 05/14/2019 11:33 EST Performed On: 05/14/2019 6:46 EST by Rach Red RN Intervention Information: traMADol Performed by BORIS OVALLE, Structural Architect-Nursing on 05/14/2019 05:46:00 EST traMADol,50mg Oral Pain [...] form. Electronically signed by Meghan Carney Conversion Customs And Border Protection Officer Raghav at 07/02/2022 5:16 PM CDT documented in this encounter Plan of Treatment Not on file documented as of this encounter Visit Diagnoses Not on filedocumented in this encounter
--- OUTSIDE RECORDS SUMMARY | 2025-01-07 15:22 | XMS_ITS | Encounter Summary ---
Author Organization [employer] ([place], [place], [place], [place]) Address [address] [place] [address] Care Team Providers Care Pc Maintenance Technician Name Role Phone Unavailable Primary Care Provider Unavailabl e Encounter Details Date Type Department Care Team (Late st Contact Info) Description 05/14/2019 Transcribed Document [facility] Radiology [address] [place] [address] Fernando River MD [address] [place] [address] Social History Tobacco Use Types Packs/Day [...] and CM reported she is accepted [facility] on Discussed with patient and nursing and [...] mg= 2 Tab, Oral, Q6HInt Vitamin D2, 56519 Units= 1 Cap, Oral, Saturday Zofran, 4 [...]
--- OUTSIDE RECORDS SUMMARY | 2025-01-07 15:22 | XMS_ITS | Encounter Summary ---
Author Organization [employer] ([place], [place], [place], [place]) Address [address] [place] [address] Care Team Providers Care Behavioral Health Aide Name Role Phone Unavailable Primary Care Provider Unavailabl e Encounter Details Date Type Department Care Team (Late st Contact Info) Description 05/15/2019 Transcribed Document [facility] [place] Family Medicine [address] [place] [address] ProviderLexi MD [address] [place] [address] Social History Tobacco Use Types [...] - Historical ProviderMD - 05/15/2019 5:00 AM EMT B Chart Check - Review Order Profile Entered On: 05/15/2019 5:23 EST Performed On: 05/15/2019 5:00 EST by BORIS OVALLE, Operations Professional-Nursing Chart Check Powerplans Initiated/Discontinued as Appropriate : Yes All Active Orders Reviewed : Yes BORIS OVALLE, Operations Professional-Nursing - 05/15/2019 5:23 EST documented in this encounter Plan of Treatment Not on file documented as of this encounter Visit Diagnoses Not on filedocumented in this encounter
--- OUTSIDE RECORDS SUMMARY | 2025-01-07 15:22 | XMS_ITS | Encounter Summary ---
Author Organization [employer] ([place], [place], [place], [place]) Address [address] [place] [address] Care Team Providers Care Film Crew Member Name Role Phone Unavailable Primary Care Provider Unavailabl e Encounter Details Date Type Department Care Team (Late st Contact Info) Description 05/15/2019 Transcribed Document [facility] [place] Medicine [address] [place] [address] ProviderLexi MD [address] [place], [...] - Historical ProviderMD - 05/15/2019 2:35 PM PROSTHETIC ASSISTANT Final Discharge Planning Entered On: 05/15/2019 14:36 EST Performed On: 05/15/2019 14:35 EST by SANDRA DEL ANGEL, Care Management-Distribution Center Manager Final Discharge Planning Discharge Arrangements : Patient [...] Discharge Comment : Patient is accepted to [place] at [facility] on Saturday\her nephew will transport SANDRA DEL ANGEL, Care Management-Distribution Center Manager - 05/15/2019 14:35 EST Final Narrative Note Historical Narrative Note : anticipate d/c to [place] [facility] on Saturday by family SANDRA DEL ANGEL, Care Management-Distribution Center Manager - 05/13/19 12:01:59 SANDRA DEL ANGEL Care Management-Distribution Center Manager - 05/15/2019 14:35 EST documented in this encounter Plan of Treatment Not on file documented as of this encounter Visit Diagnoses Not on filedocumented in this encounter
--- OUTSIDE RECORDS SUMMARY | 2025-01-07 15:22 | XMS_ITS | Encounter Summary ---
Author Organization [employer] ([place], [place], [place], [place]) Address [address] [place] [address] Care Team Providers Care Conventional Underwriter Name Role Phone Unavailable Primary Care Provider Unavailabl e Encounter Details Date Type Department Care Team (Late st Contact Info) Description 05/15/[address] [facility] [place] Family Medicine [address] [place] [address] ProviderLexi MD [address] [place] [address] Social History Tobacco Use Types [...] - Historical ProviderMD - 05/15/2019 3:50 PM ART HISTORIAN Valuables and Belongings Entered On: 05/15/2019 15:55 [...] June Green RN - 05/15/2019 15:55 EST Electronically signed by Meghan Carney Conversion Telecommunications Linesworker Cerner at 07/02/2022 5:05 PM CDT documented in this encounter Plan of Treatment Not on file documented as of this encounter Visit Diagnoses Not on filedocumented in this encounter
--- OUTSIDE RECORDS SUMMARY | 2025-01-07 15:22 | XMS_ITS | Encounter Summary ---
Author Organization [employer] ([place], [place], [place], [place]) Address [address] [place] [address] Care Team Providers Care Director Of Collections And Archives Name Role Phone Unavailable Primary Care Provider Unavailabl e Encounter Details Date Type Department Care Team (Late st Contact Info) Description 05/15/2019 Transcribed Document [facility] [place] Family Medicine [address] [place] [address] ProviderLexi MD [address] [place] [address] Social History Tobacco Use Types [...] - Historical ProviderMD - 05/15/2019 11:06 AM BAKERY ASSISTANT Stroke/Warfarin Instructions Entered On: 05/15/2019 11:06 EST [...]
--- OUTSIDE RECORDS SUMMARY | 2025-01-07 15:22 | XMS_ITS | Encounter Summary ---
Author Organization [employer] ([place], [place], [place], [place]) Address [address] [place] [address] Care Team Providers Care Buckle Inspector Name Role Phone Unavailable Primary Care Provider Unavailabl e Encounter Details Date Type Department Care Team (Late st Contact Info) Description 05/15/2019 Transcribed Document [facility] [place] Family Medicine [address] [place] [address] ProviderLexi MD [address] [place] [address] Social History Tobacco Use Types [...] - Historical ProviderMD - 05/15/2019 8:00 AM MEDIUM CYCLE SALESPERSON Pain Assessment Entered On: 05/15/2019 9:59 EST Performed On: 05/15/2019 7:30 EST by Rosie Warner RN Intervention Information: traMADol Performed by BORIS OVALLE, Fruit Harvester-Nursing on 05/15/2019 06:30:00 EST traMADol,50mg Oral Pain [...]
--- OUTSIDE RECORDS SUMMARY | 2025-01-07 15:22 | XMS_ITS | Encounter Summary ---
Author Organization [employer] ([place], [place], [place], [place]) Address [address] [place] [address] Care Team Providers Care Cardiology Fellow Name Role Phone Unavailable Primary Care Provider Unavailabl e Encounter Details Date Type Department Care Team (Late st Contact Info) Description 05/14/2019 Transcribed Document [facility] [place] Family Medicine [address] [place] [address] ProviderLexi MD [address] [place] [address] Social History Tobacco Use Types [...] - Historical ProviderMD - 05/14/2019 7:00 PM OYSTER SHUCKER Pain Assessment Entered On: 05/14/2019 22:54 EST Performed On: 05/14/2019 22:47 EST by BORIS OVALLE, Boarding Kennel Or Cattery Operator-Nursing Intervention Information: acetaminophen Performed by BORIS OVALLE, Boarding Kennel Or Cattery Operator-Nursing on 05/14/2019 21:47:00 EST acetaminophen,1000mg Oral Pain Assessment Pain Assessment : Follow-up assessment Pain Scale Goal : 4 Pain Scale Used : FACES Pain Intervention, Drug : Medicated Pain Improved by Intervention : Yes BORIS OVALLE, Boarding Kennel Or Cattery Operator-Nursing - 05/14/2019 22:54 EST Pain Scale Intensity : 3 BORIS OVALLE, Boarding Kennel Or Cattery Operator-Nursing - 05/14/2019 22:54 EST Image 4 - Images currently included in the form version of this document have not been included in the text rendition version of the form. documented in this encounter Plan of Treatment Not on file documented as of this encounter Visit Diagnoses Not on filedocumented in this encounter
--- OUTSIDE RECORDS SUMMARY | 2025-01-07 15:22 | XMS_ITS | Encounter Summary ---
Author Organization [employer] ([place], [place], [place], [place]) Address [address] [place] [address] Care Team Providers Care Director Museum Or Zoo Name Role Phone Unavailable Primary Care Provider Unavailabl e Encounter Details Date Type Department Care Team (Late st Contact Info) Description 05/15/2019 Transcribed Document [facility] Radiology [address] [place] [address] Alba River MD [address] [place] [address] Social History Tobacco Use Types Packs/Day [...] the patient will be going to [facility] on 05/16/2019 for the same. The patient [...] case management totaled cumulatively to 35 minutes. /[id number] Alba River MD VLS/AQ / VLS / MODL /[id number] documented in this encounter Plan of Treatment Not on file documented as of this encounter Visit Diagnoses Not on filedocumented in this encounter
--- OUTSIDE RECORDS SUMMARY | 2025-01-07 15:22 | XMS_ITS | Encounter Summary ---
Author Organization [employer] ([place], [place], [place], [place]) Address [address] [place] [address] Care Team Providers Care Design Consultant Name Role Phone Unavailable Primary Care Provider Unavailabl e Encounter Details Date Type Department Care Team (Late st Contact Info) Description 05/15/2019 Transcribed Document [facility] [place] [address] [place] [address] ProviderLexi MD [address] [place] [address] Social History Tobacco Use Types [...] - Historical ProviderMD - 05/15/2019 3:50 PM PATROL POLICE SERGEANT Player Manager Details Entered On: 05/15/2019 15:55 EST Performed [...]
--- OUTSIDE RECORDS SUMMARY | 2025-01-07 15:22 | XMS_ITS | Encounter Summary ---
Author Organization [employer] ([place], [place], [place], [place]) Address [address] [place] [address] Care Team Providers Care Rv Service Technician Name Role Phone Unavailable Primary Care Provider Unavailabl e Encounter Details Date Type Department Care Team (Late st Contact Info) Description 05/14/2019 Transcribed Document [facility] [place] [address] [place] [address] ProviderLexi MD [address] [place] [address] Social History Tobacco Use Types [...] - Historical ProviderMD - 05/14/2019 1:00 PM FIELD ASSISTANT Pain Assessment Entered On: 05/14/2019 14:16 EST [...]
--- OUTSIDE RECORDS SUMMARY | 2025-01-07 15:22 | XMS_ITS | Encounter Summary ---
Author Organization [employer] ([place], [place], [place], [place]) Address [address] [place] [address] Care Team Providers Care Bond Clerk Name Role Phone Unavailable Primary Care Provider Unavailabl e Encounter Details Date Type Department Care Team (Late st Contact Info) Description 05/14/2019 Transcribed Document [facility] Family Medicine [address] [place] [address] ProviderLexi MD [address] [place] [address] Social History Tobacco Use Types [...] - Historical ProviderMD - 05/14/2019 7:00 AM RESEARCH AFFILIATE Pain Assessment Entered On: 05/14/2019 11:33 EST Performed On: 05/14/2019 6:46 EST by Rach Red RN Intervention Information: acetaminophen Performed by BORIS OVALLE, Casing Splitter-Nursing on 05/14/2019 05:46:00 EST acetaminophen,1000mg Oral Pain [...]
--- OUTSIDE RECORDS SUMMARY | 2025-01-07 15:22 | XMS_ITS | Encounter Summary ---
Author Organization [employer] ([place], [place], [place], [place]) Address [address] [place] [address] Care Team Providers Care Prepress Supervisor Name Role Phone Unavailable Primary Care Provider Unavailabl e Encounter Details Date Type Department Care Team (Late st Contact Info) Description 05/15/2019 Transcribed Document [facility] [place] Family Medicine [address] [place] [address] ProviderLexi MD [address] [place] [address] Social History Tobacco Use Types [...] - Historical ProviderMD - 05/15/2019 2:00 AM AIRCRAFT TIME CLERK Floral Associate Details Entered On: 05/15/2019 5:23 EST Performed On: 05/15/2019 2:00 EST by BORIS OVALLE, Car Icer-Nursing Order Details Transport Mode Order Detail : Wheelchair Isolation Precautions Order Detail : Standard Precautions Order Detail : N/A IV Order Detail : 1 Oxygen Order Detail : 1 Nurse Collect Order Detail : 0 Lift/Transfer : Minimal Central Line Order Detail : No Room Service : Appropriate Arterial Line : No BORIS OVALLE, Car Icer-Nursing - 05/15/2019 5:22 EST documented in this encounter Plan of Treatment Not on file documented as of this encounter Visit Diagnoses Not on filedocumented in this encounter
--- OUTSIDE RECORDS SUMMARY | 2025-01-07 15:22 | XMS_ITS | Encounter Summary ---
Author Organization [employer] ([place], [place], [place], [place]) Address [address] [place] [address] Care Team Providers Care Cardiology Technician Name Role Phone Unavailable Primary Care Provider Unavailabl e Encounter Details Date Type Department Care Team (Late st Contact Info) Description 05/15/2019 Transcribed Document [facility] [place] Family Medicine [address] [place] [address] ProviderLexi MD [address] [place] [address] Social History Tobacco Use Types [...] - Historical ProviderMD - 05/15/2019 8:00 PM PUBLICATION EDITOR Pain Assessment Entered On: 05/15/2019 23:08 EST [...]
--- OUTSIDE RECORDS SUMMARY | 2025-01-07 15:22 | XMS_ITS | Encounter Summary ---
Author Organization [employer] ([place], [place], [place], [place]) Address [address] [place] [address] Care Team Providers Care Shank Sorter Name Role Phone Unavailable Primary Care Provider Unavailabl e Encounter Details Date Type Department Care Team (Late st Contact Info) Description 05/14/2019 Transcribed Document [facility] [place] Family Medicine [address] [place] [address] ProviderLexi MD [address] [place] [address] Social History Tobacco Use Types [...] - Historical ProviderMD - 05/14/2019 8:00 PM STOCK ORDER LISTER Pain Assessment Entered On: 05/14/2019 22:55 EST Performed On: 05/14/2019 22:48 EST by BORIS OVALLE, Sales Representative Advertising-Nursing Intervention Information: traMADol Performed by BORIS OVALLE, Sales Representative Advertising-Nursing on 05/14/2019 21:48:00 EST traMADol,50mg Oral Pain Assessment Pain Assessment : Follow-up assessment Pain Scale Goal : 4 Pain Scale Used : FACES Pain Intervention, Drug : Medicated Pain Improved by Intervention : Yes BORIS OVALLE, Sales Representative Advertising-Nursing - 05/14/2019 22:54 EST Pain Scale Intensity : 3 BORIS OVALLE Sales Representative Advertising-Nursing - 05/14/2019 22:54 EST Image 4 - Images currently included in the form version of this document have not been included in the text rendition version of the form. Electronically signed by Meghan Carney Conversion Screen Printing Cloth Spreader Cerner at 07/02/2022 5:17 PM CDT documented in this encounter Plan of Treatment Not on file documented as of this encounter Visit Diagnoses Not on filedocumented in this encounter
--- OUTSIDE RECORDS SUMMARY | 2025-01-07 15:22 | XMS_ITS | Encounter Summary ---
Author Organization [employer] ([place], [place], [place], [place]) Address [address] [place] [address] Care Team Providers Care Siebel Consultant Name Role Phone Unavailable Primary Care Provider Unavailabl e Encounter Details Date Type Department Care Team (Late st Contact Info) Description 05/15/2019 Transcribed Document [facility] [place] [address] [place] [address] ProviderLexi MD [address] [place] [address] Social History Tobacco Use Types [...] - Historical ProviderMD - 05/15/2019 5:00 PM CASTING TESTER Chart Check - Review Order Profile Entered [...]
--- OUTSIDE RECORDS SUMMARY | 2025-01-07 15:23 | XMS_ITS | Data Portability ---
Author Organization [facility] Moe arreaga, [facility] [facility] Address [address] [place] [address] Care Team Providers Care Justice Of The Peace Name Role Phone JESUS MARINA Primary Care Provider Assessment Encounter Date Assessment Date Assessment LastModified by Organization Details LastModified Time 02/25/2019 02/25/2019 1. Dyspnea 2. Hypertension 3. Dyslipidemia 4. Type II DM Not available 02/25/2019 14:12:41 Plan of Treatment Reminders Order Date Submit Date Provider Last Modified By Organization Details Last Modified Time Details Appointments DERM VISIT 025 01:10PM ZEN ROACH ADVERTISING PHOTOGRAPHER Not available Not available Not available Lab None recorde d. Referral None recorde d. Procedures None recorde d. Surgeries None recorde d. Imaging None recorde d. Medication Orders None recorde d. Patient TargetsNo targets recorded. Patient Instructions Encounter Date Encounter Id Patient Instructions Last Modified By Organization Details Last Modified Time 02/25/2019 [id number] echocardiogram i s normal with normal LV [...] Organization Detail LastModifiedTime 02/27/20 19 02/25/2019 elect rocar diogr am No observ ation record ed. [email or web address] Not Available 2018 14:58:36 Result Notes None recorded. Problems Name Problem SNOMED Code Status Onset Date Resolution Date Notes Provider Name and Address Organization Details Recorded Time Dyspnea 248987805 Active 2018 JHONY GUTHRIE PA-C [address] [place], [address], [facility] 14:13:12 Essential hypertension 86741362 Active 2018 JHONY GUTHRIE PA-C [address] [place], [address], [facility] 14:13:19 Dyslipidemia 165931591 Active 2018 JHONY GUTHRIE PA-C [address] [place], [address], [facility] 14:13:28 Problem Notes Documentation Provider Name and Address Organization Details Recorded Time Trans-thoracic Echocardiogram (tte) (proc) : [facility] [address] [facility] [id number], PEGGY L (id #[id number], : 1945) [facility] CARDIOLOGY [address] [place] [address] Encounter Summary - Progress Note Date Printed: [...] received this fax in error, please visit [email or web address] yFax to notify the sender and confirm that the information will be destroyed. If you do not have internet access, please call to notify the sender and confirm that the information will be destroyed. Thank you for your attention and cooperation. [ID:[id number]] Patient Tay Fonseca (73yo, F) #[id number] 1945 Patient Demographics: Address [address] [place], [place] [address] Encounter Notes: Encounter Reason/Date Echo/MAYFIELD 02/25/2019 - [...] Primary MD: Jesus Marina Referring Physician: Jhony uGthrie PA-C Tech: Di [facility] Location: [facility] Type: Complete Diagnosis: MAYFIELD HT: 5'2 WT: [...] by: JOSEPH PEARSON MD JHONY GUTHRIE PA-C [address] [place] [address], [phone], [facility] 02/26/2019 09:32:02 Procedures Surgical History Date Name Laterality Status Provider Name and Address Organization Details Recorded Time 02/26/20 19 Echocardiogram completed JOSEPH PEARSON MD [address] [place] [address], [phone], [facility] 02/25/2019 16:42:19 02/26/20 19 EKG completed JHONY GUTHRIE PA-C [address] [place] [address], [phone], [facility] 02/25/2019 14:12:25 hysterectomy completed Jacquebernadette Donohue [facility] 02/25/2019 13:39:55 delivery completed Jacquebernadette Donohue [facility] 02/25/2019 13:40:38 Imaging Results None recorded. Procedure Notes None recorded. Medical Equipment None Reported. Allergies Allergen ID Allergen Name Allergen Category Reaction Reaction Severity Criticality Documentation Date Start Date Code Code System Note Provider Name and Address Organization Details Recorded Time 296237 Product containin g penicilli n (product) medicatio n Not available Not available Not available 02/04/2019 15585 8001 SNOMED Jacquebernadette Donohue [facility] 9 11:40:56 Medications Name Sig Start Date [...] Updated DateTime 02/25/2019 157.48 cm 43.9 kg/m2 180617.1 7 g 96 /min 124/82 mm[Hg] Jacque Donohue [facility] 02/25/2019 13:46:06 Social History Question Answer Notes LastModified by GramVaani Details LastModified Time Tobacco Smoking Status Former Smoker Jacque Donohue [facility] 02/25/2019 13:37:33 How Much Tobacco Do You Chew? None [email or web address] Information not available 02/04/2019 Which Illicit Or Recreational Drugs Have You Used? No Illicit Drug Use Per Patient Information not available 02/25/2019 Live Alone Or With Others? Alone [email or web address] Information not available 02/25/2019 Marital Status Unknown [email or web address] Informatio n not available 02/25/2019 How Much Tobacco Do You Smoke? No [email or web address] Information not available 02/04/2019 How Many Years Have You Smoked Tobacco? 15 [email or web address] Information not available 02/25/2019 Sex: Unknown Functional Status Question Answer Note LastModified by GramVaani Details LastModified Time What is your level of alcohol consumption? None [email or web address] Information not available 02/25/2019 Do you or have you ever used smokeless tobacco? Never used smokeless tobacco [email or web address] Information not available 02/04/2019 What is your occupation? retired [email or web address] Information not available 02/25/2019 Do you or have you ever used e-cigarettes or vape? Never used electronic cigarettes [email or web address] Information not available 02/04/2019 Mental Status None recorded. Family History Relationship Description Onset Age of this Age Resolved Age Notes LastModified by Organization Details LastModified Time Unspecified Relation Family history of malignant neoplasm [email or web address] Not available 2018 11:38:14 Unspecified Relation Heart disease [email or web address] Not available 2018 11:38:31 Unspecified Relation Family history of stroke [email or web address] Not available 2018 11:38:40 Unspecified Relation Seizure [email or web address] Not available 02/05/20 11:38:49 Unspecified Relation Diabetes mellitus [email or web address] Not available 2018 11:39:02 Medical History Condition Response Diabetes Y Hyperlipidemia Y Hypertension Y Gynecological HistoryNo gynecological history recorded. Obstetrics History GPAL:G 0 P 0 0 0 0 Past Encounters Encounter ID Performer Location Encounter Start Date Encounter Closed Date Diagnosis/Indication Diagnosis SNOMED-CT Code Diagnosis ICD10 Code Diagnosis IMO Codes Diagnosis Note [id number] JHONY GUTHRIE PA-C CARDIOLOG [facility] [address] [place] [address] ,[address] [place] [address] 02/25/2019 13:17:50 02/26/2019 08:28:12 Dyspnea 566723054 R06.00 Essential hypertension 30169056 I10 Dyslipidemia 635159896 E 78.5 [id number] JOSEPH PEARSON MD [facility] [address] [place] [address] 02/25/2019 14:18:01 03/03/2019 07:37:28 Dyspnea on exertion 60654655 R06.09 Health Concerns Section Related Observation LastModified by Organization Detai ls LastModified Time None Recorded Concern Status LastModified by Organization Details LastModified Time None Recorded Advance Directives Directive None Recorded Payers Insurance Date Sequence Insurance Name Policy Number Policy Vieira Covered Member ID Vieira Member ID Guarantor Name 11/28/2024 1 [place]ARE[place] Tay L Arpin [id number] Tay L Arpin 12/09/2024 2 AARP (MEDICARE SUPPLEMENT) Tay L Duglas [id number] Tay L Arpin Notes Date Note Type Note Provider Name [...] severe back pain. No prior history of [place], angina, palpitations dizziness syncope or CHF symptoms. She is treated for hypertension, diabetes and hyperlipidemia. Technically difficult study with limited visualization. No significant valvular heart disease. Trace MR with dilated left atrium. Diastolic dysfunction present. Normal systolic function. Ejection fraction >55%. There are no prior studies for comparison. JHONY GUTHRIE PA-C [address] [place], [address], [facility] 02/25/2019 17:01:53 OBGyn Episode No OBEpisode recorded.
--- OUTSIDE RECORDS SUMMARY | 2025-01-07 15:23 | XMS_ITS | Encounter Summary ---
Author Organization [facility] Address [address] [id number] Care Team Providers Care Physical Security Specialist Name Role Phone Humberto Downs MD Primary Care Provider Encounter Details Date Type Department Care Team (Late st Contact Info) Description 11/24/2024 Telephone [facility] [place] Andrei [address] [place] [address] [place] [address] Social History Tobacco Use Types Packs/Day Years [...] state she is looking for a new head silverman. Until that occurs, we will continue to send records to Zane Lowe. * Telephone Encounter - Katelin Gibbs - 11/24/2024 10:53 AM EDT Patient Name:Dominga Ardon : 1945 Date:11/24/2024 Affiliate Site: [facility] Referring Physician: Johnny Flores/ Seen: Vascular/Abdirizak Future scheduling/testing needs: f/u appt 01/04 This [facility] Nurse Liaison contacted Dominga Ardon following their appointment on 11/23/2024. Liaison contact information provided. Will follow up to ensure continuum of care. Katelin Gibbs [facility] Nurse Liaison [phone] documented in this encounter Plan of Treatment [...] documented as of this encounter Care Teams Physical Security Specialist Relationship Specialty Start Date End Date Humberto Downs MD [address] [place] [address] [place] [address] PCP - General 07/29/20 12/28/24 documented as of this encounter
--- OUTSIDE RECORDS SUMMARY | 2025-01-07 15:23 | XMS_ITS | Encounter Summary ---
Author Organization [employer] ([place], [place], [place], [place]) Address [address] [place] [address] Care Team Providers Care Cycling Instructor Name Role Phone Unavailable Primary Care Provider Unavailabl e Encounter Details Date Type Department Care Team (Late st Contact Info) Description 05/13/2019 Transcribed Document [facility] [address] [place] [address] ProviderLexi MD [address] [place] [address] Social History Tobacco Use Types [...] - Historical ProviderMD - 05/13/2019 8:00 AM DIRECTOR INTERNAL CONTROL Pain Assessment Entered On: 05/13/2019 9:18 EST [...]
--- OUTSIDE RECORDS SUMMARY | 2025-01-07 15:23 | XMS_ITS | Encounter Summary ---
Author Organization Healthcare Address [address] [place] [address] Care Team Providers Care Customs Manager Name Role Phone Humberto Downs MD Primary Care Provider [phone] Humberto Camarena MD Primary Care Provider + [phone] Encounter Details Date Type Department Care Team (Late st Contact Info) Description 09/24/2024 Orders Only External Location [address] [place] [address] Provider, External Social History Tobacco Use Types [...] on filedocumented in this encounter Care Teams Customs Manager Relationship Specialty Start Date End Date Humberto Downs MD [address] [place] [address] [place] [address] PCP - General 07/29/20 12/28/24 Humberto Camarena MD [address] [place] [address] PCP - General Internal Medicine 12/29/24 documented as of this encounter
--- OUTSIDE RECORDS SUMMARY | 2025-01-07 15:23 | XMS_ITS | Encounter Summary ---
Author Organization Healthcare Address [address] [place] [address] Care Team Providers Care Title Officer Name Role Phone Humberto Downs MD Primary Care Provider [phone] Humberto Camarena MD Primary Care Provider + [phone] Encounter Details Date Type Department Care Team (Late st Contact Info) Description 05/05/2024 Orders Only External Location [address] [place] [address] Provider, External Social History Tobacco Use Types [...] on filedocumented in this encounter Care Teams Title Officer Relationship Specialty Start Date End Date Humberto Downs MD [address] [place] [address] [place] [address] PCP - General 07/29/20 12/28/24 Humberto Camarena MD [address] [place] [address] PCP - General Internal Medicine 12/29/24 documented as of this encounter
--- OUTSIDE RECORDS SUMMARY | 2025-01-07 15:23 | XMS_ITS | Encounter Summary ---
Author Organization Healthcare Address [address] [place] [address] Care Team Providers Care Manager Deli Name Role Phone Humberto Downs MD Primary Care Provider [phone] Humberto Camarena MD Primary Care Provider + [phone] Encounter Details Date Type Department Care Team (Late st Contact Info) Description 09/24/2024 Orders Only External Location [address] [place] [address] Provider, External Social History Tobacco Use Types [...] on filedocumented in this encounter Care Teams Manager Deli Relationship Specialty Start Date End Date Humberto Downs MD [address] [place] [address] [place] [address] PCP - General 07/29/20 12/28/24 Humberto Camarena MD [address] [place] [address] PCP - General Internal Medicine 12/29/24 documented as of this encounter
--- OUTSIDE RECORDS SUMMARY | 2025-01-07 15:23 | XMS_ITS | Encounter Summary ---
Author Organization [employer] ([place], [place], [place], [place]) Address [address] [place] [address] Care Team Providers Care Adzing And Boring Machine Helper Name Role Phone Unavailable Primary Care Provider Unavailabl e Encounter Details Date Type Department Care Team (Late st Contact Info) Description 05/14/2019 Transcribed Document [facility] [place] Family Medicine [address] [place] [address] ProviderLexi MD [address] [place] [address] Social History Tobacco Use Types [...] - Historical ProviderMD - 05/14/2019 5:00 AM SET STAFF FITTER Chart Check - Review Order Profile Entered On: 05/14/2019 6:35 EST Performed On: 05/14/2019 5:00 EST by BORIS OVALLE, Business Excellence Manager-Nursing Chart Check Powerplans Initiated/Discontinued as Appropriate : Yes All Active Orders Reviewed : Yes BORIS OVALLE, Business Excellence Manager-Nursing - 05/14/2019 6:34 EST Electronically signed by Angelika [facility] Conversion Configuration Management Analyst Cerner at 07/02/2022 4:55 PM CDT documented in this encounter Plan of Treatment Not on file documented as of this encounter Visit Diagnoses Not on filedocumented in this encounter
--- OUTSIDE RECORDS SUMMARY | 2025-01-07 15:23 | XMS_ITS | Encounter Summary ---
Author Organization Healthcare Address [address] [place] [address] Care Team Providers Care Registered Travel Nurse Name Role Phone Humberto Downs MD Primary Care Provider [phone] Encounter Details Date Type Department Care Team [...] documented as of this encounter Care Teams Registered Travel Nurse Relationship Specialty Start Date End Date Humberto Downs MD [place] [address] PCP - General 07/29/20 12/28/24 documented as of this encounter
--- OUTSIDE RECORDS SUMMARY | 2025-01-07 15:23 | XMS_ITS | Clinical Summary ---
Author Organization [facility] Address [address] [place] [address] Care Team Providers Care Parking Lot Attendant Name Role Phone Humberto Camarena MD Primary Care Provider + [phone] Allergies Active Allergy Reactions Criticality Noted Date [...] Description 01/04/2025 2:40 PM EDT Office Visit [facility] [address] [address]th Floor [address] [place] [address] Yifan Reveles MD VBI (vertebrobasilar insufficiency) (Primary Dx); Asymptomatic bilateral carotid artery stenosis 01/04/2025 1:22 PM EDT - 01/04/2025 11:59 PM EDT Hospital Encounter [facility] [address] [place] [address] VBI (vertebrobasilar insufficiency) Discharge Disposition: Home or Self Care 01/04/2025 Travel 12/29/2024 Telephone [facility] [address] [place] [address] Yifan Reveles MD [facility] Clinical Concern/Question 12/19/2024 Orders Only External Location [address] [place] [address] Provider, External 12/19/2024 Orders Only External Location [address] [place] [address] Provider, External 11/24/2024 Telephone [facility] [place] [address] [place] [address] Katelin Gibbs 11/23/2024 1:00 PM EDT Office Visit [facility] [address] [place] [address] Yifan Reveles MD VBI (vertebrobasilar insufficiency) (Primary Dx) 11/23/2024 Travel 11/17/2024 Telephone [facility] [place] [address] [facility] [place] [address] Katelin Gibbs 11/03/2024 Telephone [facility] [address] [place] [address] HCN Clinical Concern/Question from Last 3 Months [...] UKY-Zoster Vaccines (3 of 3) 02/04/2024, 06/05/2023 [id number] Vaccine (4 - 2024- season) 2024 12/28/2020, [...] 01/04/2025 2:05 PM EDT VBI (vertebrobasilar insufficiency) XR [facility] OUTSIDE IMAGES 12/19/2024 1:33 PM EDT XR [facility] OUTSIDE IMAGES 12/19/2024 1:33 PM EDT from Last 3 Months Results * VAS US Carotid Duplex Bilateral [...] MD CV VASCULAR PROCEDURES Final R esult * XR [facility] OUTSIDE IMAGES (12/19/2024 1:33 PM EDT) Only the most recent of2 resultswithin the time period is included. Anatomical Region Laterality Modality Radiographic Emily ging 12/19/2024 1:33 PM EDT us External Provider IMG XR PROCEDURES Edited Resul t - Final from Last [address] [place] [address] [place] [address] MEDICARE [facility] Care Teams Parking Lot Attendant Relationship Specialty Start Date End Date Humberto Camarena MD [address] [place] [address] PCP - General Internal Medicine 12/29/24
--- OUTSIDE RECORDS SUMMARY | 2025-01-07 15:23 | XMS_ITS | Encounter Summary ---
Author Organization [facility] Address [address] [place] [address] Care Team Providers Care Visual Specialist Name Role Phone Humberto Downs MD Primary Care Provider Encounter Details Date Type Department Care Team (Late st Contact Info) Description 11/17/2024 Telephone [facility] [place] Andrei [address] [place] [address] [place] [address] Social History Tobacco Use Types Packs/Day Years [...] up with patient after appointment. Katelin Gibbs [facility] Nurse Liaison [phone] documented in this encounter Plan of Treatment Not on file documented as of this encounter Visit Diagnoses Not on filedocumented in this encounter Care Teams Visual Specialist Relationship Specialty Start Date End Date Humberto Downs MD [address] [place] [address] PCP - General 07/29/20 12/28/24 documented as of this encounter
--- OUTSIDE RECORDS SUMMARY | 2025-01-07 15:23 | XMS_ITS | Encounter Summary ---
Author Organization Healthcare Address [address] [place] [address] Care Team Providers Care Environmental Compliance Inspector Name Role Phone Humberto Downs MD Primary Care Provider [phone] Humberto Camarena MD Primary Care Provider + [phone] Encounter Details Date Type Department Care Team (Late st Contact Info) Description 09/28/2024 Orders Only External Location [address] [place] [address] Provider, External Social History Tobacco Use Types [...] on filedocumented in this encounter Care Teams Environmental Compliance Inspector Relationship Specialty Start Date End Date Humberto Downs MD [address] [place] [address] [place] [address] PCP - General 07/29/20 12/28/24 Humberto Camarena MD [address] [place] [address] PCP - General Internal Medicine 12/29/24 documented as of this encounter
--- OUTSIDE RECORDS SUMMARY | 2025-01-07 15:23 | XMS_ITS | Continuity of Care Document ---
Author Organization [facility] Address [address] [facility] [address] [place] [address] Care Team Providers Care Stunner And Shackler Name Role Phone MARINA LILIAN Primary Care Provider Assessment No assessment recorded. [...] - iv contrast only 2024 025 [id number] [facility] (Centralized Scheduling), [address] , [place], [address], 12/31/2024 08:07:30 Medication Orders None recorded. Patient TargetsNo targets recorded. Patient InstructionsNo instructions recorded. Reason for Referral None Reported. Results Created Date Observation Date Name Description Value Unit Range Abnormal Flag Note LastModifiedBy Organization Detail LastModifiedTime 12/10/1912/09/2024 CBC AUTO W DIFF WBC 8.9 K/uL 4.0-10 .5 Not Available [facility] ([facility]) [address], [place], [address], 12/09/2024 09:34:16 12/10/19 25 12/09/2024 CBC AUTO W DIFF RBC 5.0 M/mm3 4.2-6. 4 Not Available [facility] ([facility]) [address] , [place], [address], 12/09/2024 09:34:16 12/10/19 25 12/09/2024 CBC AUTO W DIFF HGB 13.8 gm/dL 12.5-1 6.0 Not Available [facility] ([facility]) [address] , [place], [address], 12/09/2024 09:34:16 12/10/19 25 12/09/2024 CBC AUTO W DIFF HCT 42.3 % 37.0-4 7.0 Not Available [facility] ([facility]) [address] , [place], [address], 12/09/2024 09:34:16 12/10/19 25 12/09/2024 CBC AUTO W DIFF MCV 84.8 fL 78-100 Not Available [facility] ([facility]) [address] , [place], [address], 12/09/2024 09:34:16 12/10/1912/09/2024 CBC AUTO W DIFF MCH 27.7 pg 27-31 Not Available [facility] ([facility]) [address] , [place], [address], 12/09/2024 09:34:16 12/10/19 25 12/09/2024 CBC AUTO W DIFF MCHC 32.6 g/dL 32-36 Not Available [facility] ([facility]) [address] , [place], [address], 12/09/2024 09:34:16 12/10/19 25 12/09/2024 CBC AUTO W DIFF RDW 14.5 % 11.5-1 4.0 high Not Available [facility] ([facility]) [address], [place], [address], 12/09/2024 09:34:16 12/10/19 25 12/09/2024 CBC AUTO W DIFF platelet count 224 K/uL 150-45 0 Not Available [facility] ([facility]) [address], [place], [address], 12/09/2024 09:34:16 12/10/19 25 12/09/2024 CBC AUTO W DIFF MPV 10.1 fL 6-9.5 high Not Available [facility] ([facility]) [address], [place], [address], 12/09/2024 09:34:16 12/10/19 25 12/09/2024 CBC AUTO W DIFF neutrophil% 63.2 % 43-65 Not Available [facility] ([facility]) [address], [place], [address], 12/09/2024 09:34:16 12/10/19 25 12/09/2024 CBC AUTO W DIFF lymphocyte% 23.1 % 20.5-4 5.5 Not Available [facility] ([facility]) [address], [place], [address], 12/09/2024 09:34:16 12/10/1912/09/2024 CBC AUTO W DIFF monocyte% 7.6 % 5.5-11 .7 Not Available [facility] ([facility]) [address], [place], [address], 12/09/2024 09:34:16 12/10/19 25 12/09/2024 CBC AUTO W DIFF eosinophil% 4.5 % 0.9-2. 9 high Not Available [facility] ([facility]) [address] , [place], [address], 12/09/2024 09:34:16 12/10/19 25 12/09/2024 CBC AUTO W DIFF basophil% 0.8 % 0.2-1. 0 Not Available [facility] ([facility]) [address] [facility], [place], [address], 12/09/2024 09:34:16 12/10/19 25 12/09/2024 CBC AUTO W DIFF immature granulocytes % 0.8 % 0.0-0. 8 Not Available [facility] ([facility]) [address] [facility], [place], [address], 12/09/2024 09:34:16 12/10/19 25 12/09/2024 CBC AUTO W DIFF nucleated red blood cells % 0.0 % Not Available [facility] ([facility]) [address] [facility], [place], [address], 12/09/2024 09:34:16 12/10/19 25 12/09/2024 CBC AUTO W DIFF neutrophil# 5.6 K/uL 2.2-4. 8 high Not Available [facility] ([facility]) [address] [place], [address], 12/09/2024 09:34:16 12/10/19 25 12/09/2024 CBC AUTO W DIFF lymphocyte# 2.0 cell/ mcL 1.3-2. 9 Not Available [facility] ([facility]) [address] [place], [address], 12/09/2024 09:34:16 12/10/19 25 12/09/2024 CBC AUTO W DIFF monocyte# 0.7 cell/ mcL 0.3-0. 8 Not Available [facility] ([facility]) [address] [place], [address], 12/09/2024 09:34:16 12/10/19 25 12/09/2024 CBC AUTO W DIFF eosinophil# 0.4 cell/ mcL 0-0.2 high Not Available [facility] ([facility]) [address], [place], [address], 12/09/2024 09:34:16 12/10/19 25 12/09/2024 CBC AUTO W DIFF basophil# 0.1 cell/ mcL 0.0-1. 0 Not Available [facility] ([facility]) [address], [place], [address], 12/09/2024 09:34:16 12/10/19 25 12/09/2024 CBC AUTO W DIFF immature gramulocytes # 0.07 K/uL Not Available [facility] ([facility]) [address], [place], [address], 12/09/2024 09:34:16 12/10/19 25 12/09/2024 CBC AUTO W DIFF nucleated red blood cells # 0.00 K/uL Not Available [facility] ([facility]) [address], [place], [address], 12/09/2024 09:34:16 12/10/1912/09/2024 CBC AUTO W DIFF manual differential NO Not Available [facility] ([facility]) [address], [place], [address], 12/09/2024 09:34:16 12/10/1912/09/2024 COMP METAB OLIC PANEL sodium 139 mmol/ L 136-14 5 Not Available [facility] ([facility]) [address], [place], [address], 12/09/2024 09:46:13 12/10/19 25 12/09/2024 COMP METAB OLIC PANEL potassium 3.8 mmol/ L 3.6-5. 0 Not Available [facility] ([facility]) [address], [place], [address], 12/09/2024 09:46:13 12/10/19 25 12/09/2024 COMP METAB OLIC PANEL chloride 102 mmol/ L 98-107 Not Available [facility] ([facility]) [address] , [place], [address], 12/09/2024 09:46:13 12/10/19 25 12/09/2024 COMP METAB OLIC PANEL carbon dioxide 29.0 mmol/ L 21.0-3 2.0 Not Available [facility] ([facility]) [address] , [place], [address], 12/09/2024 09:46:13 12/10/1912/09/2024 COMP METAB OLIC PANEL anion gap 11.8 Not Available [facility] ([facility]) [address], [place], [address], 12/09/2024 09:46:13 12/10/1912/09/2024 COMP METAB OLIC PANEL glucose 221 mg/dL 70-120 high Not Available [facility] ([facility]) [address], [place], [address], 12/09/2024 09:46:13 12/10/19 25 12/09/2024 COMP METAB OLIC PANEL BUN 21 mg/dL 7-18 high Not Available [facility] ([facility]) [address], [place], [address], 12/09/2024 09:46:13 12/10/1912/09/2024 COMP METAB OLIC PANEL creatinine 0.9 mg/dL 0.6-1. 3 Not Available [facility] ([facility]) [address] [place], [address], 12/09/2024 09:46:13 12/10/19 25 12/09/2024 COMP METAB [...] kenyon ing kiney funct ion. Not Available [facility] ([facility]) [address] , [place], [address], 12/09/2024 09:46:13 12/10/19 25 12/09/2024 COMP METAB OLIC PANEL osmolality (calculated) 299 mOsm/ kg 275-30 1 OSMOL ALITY IS A CALCU LATIO N UTILI ZING THE SERUM /PLAS MA SODIU M, GLUCO SE AND UREA NITRO GEN (BUN) LEVEL S. FOR THE MOST ACCUR ATE RESUL T A MEASU RED SERUM OSMOL ALITY IS SUGERIBERTO WAND. Not Available [facility] ([facility]) [address] , [place], [address], 12/09/2024 09:46:13 12/10/19 25 12/09/2024 COMP METAB OLIC PANEL total protein 6.8 g/dL 6.4-8. 2 Not Available [facility] ([facility]) [address] [facility], [place], [address], 12/09/2024 09:46:13 12/10/1912/09/2024 COMP METAB OLIC PANEL albumin 3.5 g/dL 3.4-5. 0 Not Available [facility] ([facility]) [address] [facility], [place], [address], 12/09/2024 09:46:13 12/10/1912/09/2024 COMP METAB OLIC PANEL globulin 3.3 Not Available [facility] ([facility]) [address] , [place], [address], 12/09/2024 09:46:13 12/10/19 25 12/09/2024 COMP METAB OLIC PANEL alb/glob ratio 1.1 0.7-2 Not Available [facility] ([facility]) [address], [place], [address], 12/09/2024 09:46:13 12/10/19 25 12/09/2024 COMP METAB OLIC PANEL calcium 8.7 mg/dL 8.5-10 .5 Not Available [facility] ([facility]) [address], [place], [address], 12/09/2024 09:46:13 12/10/19 25 12/09/2024 COMP METAB OLIC PANEL bilirubin total 0.30 mg/dL 0.10-1 .00 Not Available [facility] ([facility]) [address], [place], [address], 12/09/2024 09:46:13 12/10/19 25 12/09/2024 COMP METAB OLIC PANEL AST (SGOT) 10 U/L 0-37 Not Available [facility] ([facility]) [address], [place], [address], 12/09/2024 09:46:13 12/10/19 25 12/09/2024 COMP METAB OLIC PANEL ALT (SGPT) 16 U/L 0-65 Not Available [facility] ([facility]) [address], [place], [address], 12/09/2024 09:46:13 12/10/1912/09/2024 COMP METAB OLIC PANEL alk phosphatase 125 U/L 46-116 high Not Available [facility] ([facility]) [address], [place], [address], 12/09/2024 09:46:13 12/10/19 25 12/09/2024 LDH (LD) LDH 172 U/L 0-190 Not Available [facility] ([facility]) [address], [place], [address], 12/09/2024 10:09:06 Result Notes None recorded. 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 Procedures Surgical History Date Name Laterality Status Provider Name and Address Organization Details Recorded Time hysterectomy completed Amy SEN SULEIMAN [facility] [place] 03/20/2023 10:33:17 banding of varix of stomach completed Amy BEARDEN [facility] [place] 03/20/2023 10:34:08 procedure on ankle completed [facility] [place] 06/03/2023 13:59:58 Imaging Results None recorded. Procedure Notes None recorded. Medical Equipment None Reported. Allergies Allergen ID Allergen Name Allergen Category Reaction Reaction Severity Criticality Documentation Date Start Date Code Code System Note Provider Name and Address Organization Details Recorded Time 671117 Product containin g penicilli n (product) medicatio n Not available Not available Not available 03/20/2023 20740 8009 SNOMED Other react ions and sever ities : 'Adve rse react ion to subst ance' . MCKINLEY Antunez [facility] [place] 4 10:29:56 Medications Name Sig Start Date [...] Available Not Available Not Available Vitamin D3 73365 active Not Available Not Av ailable Not [...] Updated DateTime 5 157.48 cm 36.5 kg/m2 63820.3 2 g 97.4 [degF] 98 % 98 % 96 /min 20 /min 133/71 mm[Hg] Farhana Gilliam [facility] [place] 09:18:13 Social History Question Answer Notes LastModified by Organizat ion Details LastModified Time Tobacco Smoking Status Former Smoker Amy Dustin null, [facility] [place] 03/20/2023 10:32:44 What Is Your Level Of Caffeine Consumption? None [email or web address] Information not available 03/20/2023 When Did You Quit Smoking? 16+yearssinc elastcigaret te [email or web address] Information not available 03/20/2023 What Was The Date Of Your Most Recent Tobacco Screening? 06/03/2023 [email or web address] Information not available 06/03/2023 At What Age Did You Start Smoking Tobacco? 22 [email or web address] Information not available 03/20/2023 Has Tobacco Cessation Counseling Been Provided? No [email or web address] Information not available 03/20/2023 How Many Years Have You Smoked Tobacco? 23 Information not available 03/20/2023 Sex: Unknown Functional Status Question Answer Note LastModified by Organizat ion Details LastModified Time Do you use any illicit or recreational drugs? No Information not available 03/20/2023 Do you or have you ever used any other forms of tobacco or nicotine? No [email or web address] Information not available 03/20/2023 What is your level of alcohol consumption? None [email or web address] Information not available 03/20/2023 Mental Status None recorded. Family History Relationship Description Onset Age of this Age Resolved Age Notes LastModified by Organization Details LastModified Time Father Carcinoma of prostate [email or web address] Not available 06/02 13:57:10 Mother Malignant neoplasm of female breast [email or web address] Not available 06/02 13:57:19 Sister Malignant neoplasm of female breast BC twice .... chemo since 2018, under [facility] [email or web address] Not available 06/03/2023 13:57:59 Sister Malignant neoplasm of thyroid gland [email or web address] Not available 06/02 13:58:23 Sister Primary malignant neoplasm of both ovaries [email or web address] Not available 13:58:50 Medical History No medical history recorded. Gynecological HistoryNo gynecological history recorded. Obstetrics History GPAL:G 0 P 0 0 0 0 Immunizations Vaccine Type Date Status Note Provider Nam e and Address Organization Details Recorded Time Influenza, high-dose, quadrivalent, PF 3 completed MCKINLEY Antunez LPNT [facility] [place] 04/12/2023 08:52:49 COVID-19, mRNA, LNP-S, PF, 100 mcg/0.5mL dose or 50 mcg/0.25mL dose 1 completed MCKINLEY Antunez LPNT [facility] [place] 04/12/2023 08:52:49 COVID-19, mRNA, LNP-S, PF, 100 mcg/0.5mL dose or 50 mcg/0.25mL dose 1 completed MCKINLEY Antunez - [facility]NT - [place] & [place] 04/12/2023 08:52:49 COVID-19, mRNA, LNP-S, PF, 100 mcg/0.5mL dose or 50 mcg/0.25mL dose 1 completed MCKINLEY Antunez LPNT [facility] [place] 04/12/2023 08:52:49 zoster live 4 completed Not Available [facility] 12/09/2024 09:03:33 zoster recombinant 4 completed Not Available [facility] 12/09/2024 09:03:33 Tdap 5 completed Not Available [facility] 12/09/2024 09:03:33 RSV, recombinant, protein subunit RSVpreF, adjuvant reconstituted, 0.5 mL, PF 5 completed Not Available [facility] 12/09/2024 09:03:33 Past Encounters Encounter ID Performer Location Encounter Start Date Encounter Closed Date Diagnosis/Indication Diagnosis SNOMED-CT Code Diagnosis ICD10 Code Diagnosis IMO Codes Diagnosis Note [id number] Leanna Casey PA-C [facility] [address] [place] [address] 12/09/2024 08:57:50 12/09/2024 09:42:05 Antineoplastic chemotherapy regimen 179112697 Z51.11 Week 1 of rituximab on April [...] to monitor for toxicity. Follicular lymphoma [address] scan of the abdomen pelvis [...] 4.7. Hemoglobin 13.6 hematocrit 41.2. Platelet count 473667. Patient completed 4 weeks of rituximab therapy. [...] labs today. 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 Findings follicular lymphoma that is low grade (1/2). Flow cytometry positive for CD10. Cells positive for CD20 as well as CD19. Negative for CD 5 and negative for CD 38. Biopsy site was retroperit rivera lymph node. Nausea 998951757 R11.0 Patient has needed Zofran and Phenergan prescribed . Coronary arteriosclerosis 36369680 I25.10 Patient had a STEMI and had cardiac stents placed June 2023. She continues to follow up with Cardiology . History of anemia 219023 002 Z86.2 998663 Labs during hospital stay in late February [...] Name 12/09/2024 1 [place] Domingaomar Scotte [id number] Dominga Ashton 12/09/2024 2 AARP (MEDICARE SUPPLEMENT) Dominga Duglas [id number] Dominga Ardon Notes Date Note Type Note [...] blood count 4.7. Hemoglobin 13.4. Platelet count 508508. Absolute neutrophil count 6.8. Uric acid in [...] 4.7. Hemoglobin 13.6 hematocrit 41.2. Platelet count 716030. Patient completed 4 weeks of rituximab therapy. [...] Will follow-up labs today. Leanna Casey PA-C [address], [place], [address], [facility] [place] & [place] 12/09/2024 09:26:40 OBGyn Episode No OBEpisode recorded.
--- OUTSIDE RECORDS SUMMARY | 2025-01-07 15:23 | XMS_ITS | Encounter Summary ---
Author Organization [employer] ([place], [place], [place], [place]) Address [address] [place] [address] Care Team Providers Care Production Control Expert Name Role Phone Unavailable Primary Care Provider Unavailabl e Encounter Details Date Type Department Care Team (Late st Contact Info) Description 05/14/2019 Transcribed Document [facility] [place] [facility] [address] [place] [address] ProviderLexi MD [address] [place] [address] Social History Tobacco Use Types [...] - Historical ProviderMD - 05/14/2019 2:00 AM GRAIN SCOOPER Rating Examiner Details Entered On: 05/14/2019 1:34 EST Performed On: 05/14/2019 2:00 EST by BORIS OVALLE, Brass Pourer-Nursing Order Details Transport Mode Order Detail : Wheelchair Isolation Precautions Order Detail : Standard Precautions Order Detail : N/A IV Order Detail : 1 Oxygen Order Detail : 0 Nurse Collect Order Detail : 0 Lift/Transfer : Minimal Central Line Order Detail : No Room Service : Appropriate Arterial Line : No BORIS OVALLE, Brass Pourer-Nursing - 05/14/2019 1:34 EST documented in this encounter Plan of Treatment Not on file documented as of this encounter Visit Diagnoses Not on filedocumented in this encounter
--- OUTSIDE RECORDS SUMMARY | 2025-01-07 15:23 | XMS_ITS | Encounter Summary ---
Author Organization [employer] ([place], [place], [place], [place]) Address [address] [place] [address] Care Team Providers Care City Marshal Name Role Phone Unavailable Primary Care Provider Unavailabl e Encounter Details Date Type Department Care Team (Late st Contact Info) Description 05/13/2019 Transcribed Document [facility] [place] [facility] [address] [place] [address] ProviderLexi MD [address] [place] [address] Social History Tobacco Use Types [...] - Historical ProviderMD - 05/13/2019 10:06 AM EXPELLER WORKER On Going Discharge Planning Entered On: 05/13/2019 10:07 EST Performed On: 05/13/2019 10:06 EST by SANDRA DEL ANGEL, Care Management-Medical Photographer Care Management Progress Note Discharge Arrangements : Patient Post-Acute Information Patient Name: TAY FONSECA Gender: Female : [birth year] Age: 73 Years No Post-Acute Placement(s) Listed No Post-Acute Service(s) Listed No [place] Referral(s) Listed Discharge Options Discussed with Patient : Short term rehabilitation SANDRA DEL ANGEL, Care Management-Medical Photographer - 05/13/2019 10:06 EST Narrative Progress Note Narrative Progress Note : Pt has been changed to in pt status per IPAS. referrals sent out via [facility] per pts choice. SANDRA DEL ANGEL, Care Management-Medical Photographer - 05/13/2019 10:06 EST documented in this encounter Plan of Treatment Not on file documented as of this encounter Visit Diagnoses Not on filedocumented in this encounter
--- OUTSIDE RECORDS SUMMARY | 2025-01-07 15:23 | XMS_ITS | Clinical Summary ---
Author Organization [facility] Address [address] [place] [address] Phone Care Team Providers Care Plasterer Apprentice Name Role Phone Pcp, Pending Only MD [...] complete this topic Insurance Rupali WATKINS, [place] [id number] MEDICARE on file AARP MCR SUPPLEMENT MEDICARE on file AARP MCR SUPPLEMENT Care Teams Plasterer Apprentice Relationship Specialty Start Date End Date Pcp, Pending Only, [place], [place] [phone] PCP - General Internal Medicine 01/05/13
--- OUTSIDE RECORDS SUMMARY | 2025-01-07 15:23 | XMS_ITS | Encounter Summary ---
Author Organization [employer] ([place], [place], [place], [place]) Address [address] [place] [address] Care Team Providers Care Wired Music Operator Name Role Phone Unavailable Primary Care Provider Unavailabl e Encounter Details Date Type Department Care Team (Late st Contact Info) Description 05/14/2019 Transcribed Document [facility] [address] [place] [address] Alba River MD [address] [place] [address] Social History Tobacco Use Types Packs/Day [...] Signature: __Tonja Canela RN CDS Phone #: _[phone] BMI < 18.5 Under weight ? 18.5 - 24.9 Healthy ? 25.0 - 29.9 Slightly Overweight ? 30.0 - 34.9 Obese/Class I ? 35.0 - 39.9 Severely Obese/Class II ? 40.0 and Over Morbidly Obese/Class III Source: [facility] This is a permanent part of the Medical Record Q9 2019 [facility] Updated: documented in this encounter Plan of Treatment Not on file documented as of this encounter Visit Diagnoses Not on filedocumented in this encounter
--- OUTSIDE RECORDS SUMMARY | 2025-01-07 15:23 | XMS_ITS | Encounter Summary ---
Author Organization Healthcare Address [address] [place] [address] Care Team Providers Care Professor Of Special Education Name Role Phone Humberto Downs MD Primary Care Provider [phone] Humberto Camarena MD Primary Care Provider + [phone] Encounter Details Date Type Department Care Team (Late st Contact Info) Description 09/17/2024 Orders Only External Location [address] [place] [address] Provider, External Social History Tobacco Use Types [...] on filedocumented in this encounter Care Teams Professor Of Special Education Relationship Specialty Start Date End Date Humberto Downs MD [address] [place] [address] [place] [address] PCP - General 07/29/20 12/28/24 Humberto Camarena MD [address] [place] [address] PCP - General Internal Medicine 12/29/24 documented as of this encounter
--- OUTSIDE RECORDS SUMMARY | 2025-01-07 15:23 | XMS_ITS | Encounter Summary ---
Author Organization Healthcare Address [address] [id number] Care Team Providers Care Display Fabrication Supervisor Name Role Phone Humberto Downs MD Primary Care Provider [phone] Reason for Visit * Reason Onset Date Comments HCN Clinical Concern/Question 11/03/2024 Encounter Details Date Type Department Care Team (Late st Contact Info) Description 11/03/2024 Telephone [facility] [address] [facility] [address]th Floor [address] [place] [address] HCN Clinical Concern/Question Social History [...] Osiris' line once. Thanks! Best contact number: [phone] (home) Optimal time of day to reach [...] on filedocumented in this encounter Care Teams Display Fabrication Supervisor Relationship Specialty Start Date End Date Humberto Downs MD [address] [facility] [place] [address] PCP - General 07/29/20 12/28/24 documented as of this encounter
--- OUTSIDE RECORDS SUMMARY | 2025-01-07 15:23 | XMS_ITS | Data Portability ---
Author Organization [facility] [place] & SULEIMAN Stark ADMIN Address [address] [place] [id number] Care Team Providers Care Jail Officer Name Role Phone ZACH MARINADY Primary Care [...] 10:10:56 Referral dermatolo gist referral [email or web address] [facility], [address] [place] [address], [address], 01/30/2024 09:16:39 Procedures None recorded. Surgeries None recorded. Imaging CT, chest + abdomen + pelvis, w/ contrast - iv contrast only [address] (Centralized Scheduling), [address], [place], [address], 12/31/2024 08:07:30 CT, chest + abdomen + pelvis, w/ contrast - iv contrast only. [email or web address] (Centralized Scheduling), [address], [place], [address], 01/05/2025 09:47:54 CT, chest + abdomen + pelvis, w/ contrast [address] (Centralized Scheduling), [address], [place], [address], 06/26/2024 09:24:41 Medication Orders None recorded. Patient TargetsNo targets recorded. Patient InstructionsNo instructions recorded. Reason for Referral [employer] Referral for L ocalized eruption of skin Referring Physician: Wilian Olsen, Hematology/Oncology, Encounter Date: 12/03/2023 Results Created Date Observation Date Name Description Value Unit Range Abnormal Flag Note LastModifiedBy Organization Detail LastModifiedTime 09/11/1909/11/2023 CBC AUTO W DIFF WBC 8.3 K/uL 4.0-10 .5 Not Available [facility] ([facility]) [address], [place], [address], 09/11/2023 09:44:37 09/11/1909/11/2023 CBC AUTO W DIFF RBC 4.9 M/mm3 4.2-6. 4 Not Available [facility] ([facility]) [address], [place], [address], 09/11/2023 09:44:37 09/11/19 24 09/11/2023 CBC AUTO W DIFF HGB 14.5 gm/dL 12.5-1 6.0 Not Available [facility] ([facility]) [address] , [place], [address], 09/11/2023 09:44:37 09/11/19 24 09/11/2023 CBC AUTO W DIFF HCT 44.1 % 37.0-4 7.0 Not Available [facility] ([facility]) [address] , [place], [address], 09/11/2023 09:44:37 09/11/19 24 09/11/2023 CBC AUTO W DIFF MCV 89.5 fL 78-100 Not Available [facility] ([facility]) [address] , [place], [address], 09/11/2023 09:44:37 09/11/19 24 09/11/2023 CBC AUTO W DIFF MCH 29.4 pg 27-31 Not Available [facility] ([facility]) [address] , [place], [address], 09/11/2023 09:44:37 09/11/19 24 09/11/2023 CBC AUTO W DIFF MCHC 32.9 g/dL 32-36 Not Available [facility] ([facility]) [address] , [place], [address], 09/11/2023 09:44:37 09/11/19 24 09/11/2023 CBC AUTO W DIFF RDW 13.5 % 11.5-1 4.0 Not Available [facility] ([facility]) [address] [place], [address], 09/11/2023 09:44:37 09/11/19 24 09/11/2023 CBC AUTO W DIFF platelet count 253 K/uL 150-45 0 Not Available [facility] ([facility]) [address] [place], [address], 09/11/2023 09:44:37 09/11/19 24 09/11/2023 CBC AUTO W DIFF MPV 10.0 fL 6-9.5 high Not Available [facility] ([facility]) [address], [place], [address], 09/11/2023 09:44:37 09/11/19 24 09/11/2023 CBC AUTO W DIFF neutrophil% 72.4 % 43-65 high Not Available [facility] ([facility]) [address] [facility], [place], [address], 09/11/2023 09:44:37 09/11/19 24 09/11/2023 CBC AUTO W DIFF lymphocyte% 12.4 % 20.5-4 5.5 low Not Available [facility] ([facility]) [address] [place], [address], 09/11/2023 09:44:37 09/11/19 24 09/11/2023 CBC AUTO W DIFF monocyte% 8.9 % 5.5-11 .7 Not Available [facility] ([facility]) [address] [place], [address], 09/11/2023 09:44:37 09/11/19 24 09/11/2023 CBC AUTO W DIFF eosinophil% 4.8 % 0.9-2. 9 high Not Available [facility] ([facility]) [address] [place], [address], 09/11/2023 09:44:37 09/11/19 24 09/11/2023 CBC AUTO W DIFF basophil% 0.8 % 0.2-1. 0 Not Available [facility] ([facility]) [address] [place], [address], 09/11/2023 09:44:37 09/11/19 24 09/11/2023 CBC AUTO W DIFF immature granulocytes % 0.7 % 0.0-0. 8 Not Available [facility] ([facility]) [address] , [place], [address], 09/11/2023 09:44:37 09/11/19 24 09/11/2023 CBC AUTO W DIFF nucleated red blood cells % 0.0 % Not Available [facility] ([facility]) [address], [place], [address], 09/11/2023 09:44:37 09/11/19 24 09/11/2023 CBC AUTO W DIFF neutrophil# 6.0 K/uL 2.2-4. 8 high Not Available [facility] ([facility]) [address], [place], [address], 09/11/2023 09:44:37 09/11/19 24 09/11/2023 CBC AUTO W DIFF lymphocyte# 1.0 cell/ mcL 1.3-2. 9 low Not Available [facility] ([facility]) [address], [place], [address], 09/11/2023 09:44:37 09/11/19 24 09/11/2023 CBC AUTO W DIFF monocyte# 0.7 cell/ mcL 0.3-0. 8 Not Available [facility] ([facility]) [address], [place], [address], 09/11/2023 09:44:37 09/11/19 24 09/11/2023 CBC AUTO W DIFF eosinophil# 0.4 cell/ mcL 0-0.2 high Not Available [facility] ([facility]) [address] [place], [address], 09/11/2023 09:44:37 09/11/19 24 09/11/2023 CBC AUTO W DIFF basophil# 0.1 cell/ mcL 0.0-1. 0 Not Available [facility] ([facility]) [address] [place], [address], 09/11/2023 09:44:37 09/11/19 24 09/11/2023 CBC AUTO W DIFF immature gramulocytes # 0.06 K/uL Not Available [facility] ([facility]) [address] , [place], [address], 09/11/2023 09:44:37 09/11/19 24 09/11/2023 CBC AUTO W DIFF nucleated red blood cells # 0.00 K/uL Not Available [facility] ([facility]) [address], [place], [address], 09/11/2023 09:44:37 09/11/19 24 09/11/2023 CBC AUTO W DIFF manual differential NO Not Available [facility] ([facility]) [address] , [place], [address], 09/11/2023 09:44:37 09/11/19 24 09/11/2023 COMP METAB OLIC PANEL sodium 139 mmol/ L 136-14 5 Not Available [facility] ([facility]) [address] [place], [address], 09/11/2023 10:06:50 09/11/19 24 09/11/2023 COMP METAB OLIC PANEL potassium 4.0 mmol/ L 3.6-5. 0 Not Available [facility] ([facility]) [address] [place], [address], 09/11/2023 10:06:50 09/11/19 24 09/11/2023 COMP METAB OLIC PANEL chloride 99 mmol/ L 98-107 Not Available [facility] ([facility]) [address] [place], [address], 09/11/2023 10:06:50 09/11/19 24 09/11/2023 COMP METAB OLIC PANEL carbon dioxide 32.0 mmol/ L 21.0-3 2.0 Not Available [facility] ([facility]) [address], [place], [address], 09/11/2023 10:06:50 09/11/19 24 09/11/2023 COMP METAB OLIC PANEL anion gap 12.0 Not Available [facility] ([facility]) [address], [place], [address], 09/11/2023 10:06:50 09/11/19 24 09/11/2023 COMP METAB OLIC PANEL glucose 140 mg/dL 70-120 high Not Available [facility] ([facility]) [address], [place], [address], 09/11/2023 10:06:50 09/11/19 24 09/11/2023 COMP METAB OLIC PANEL BUN 15 mg/dL 7-18 Not Available [facility] ([facility]) [address], [place], [address], 09/11/2023 10:06:50 09/11/19 24 09/11/2023 COMP METAB OLIC PANEL creatinine 1.1 mg/dL 0.6-1. 3 Not Available [facility] ([facility]) [address] , [place], [address], 09/11/2023 10:06:50 09/11/19 24 09/11/2023 COMP METAB OLIC PANEL glomerular filtration rate TNP mlper min 60- TEST NOT PERFO RMED GFR has only been valid ated from 18 to 70 years of age. Not Available [facility] ([facility]) [address] , [place], [address], 09/11/2023 10:06:50 09/11/19 24 09/11/2023 COMP METAB OLIC PANEL total protein 7.2 g/dL 6.4-8. 2 Not Available [facility] ([facility]) [address] [place], [address], 09/11/2023 10:06:50 09/11/19 24 09/11/2023 COMP METAB OLIC PANEL albumin 4.1 g/dL 3.4-5. 0 Not Available [facility] ([facility]) [address] , [place], [address], 09/11/2023 10:06:50 09/11/19 24 09/11/2023 COMP METAB OLIC PANEL globulin 3.1 Not Available [facility] ([facility]) [address], [place], [address], 09/11/2023 10:06:50 09/11/19 24 09/11/2023 COMP METAB OLIC PANEL alb/glob ratio 1.3 0.7-2 Not Available [facility] ([facility]) [address], [place], [address], 09/11/2023 10:06:50 09/11/19 24 09/11/2023 COMP METAB OLIC PANEL calcium 9.6 mg/dL 8.5-10 .5 Not Available [facility] ([facility]) [address], [place], [address], 09/11/2023 10:06:50 09/11/19 24 09/11/2023 COMP METAB OLIC PANEL bilirubin total 0.50 mg/dL 0.10-1 .00 Not Available [facility] ([facility]) [address], [place], [address], 09/11/2023 10:06:50 09/11/19 24 09/11/2023 COMP METAB OLIC PANEL AST (SGOT) 12 U/L 0-37 Not Available [facility] ([facility]) [address], [place], [address], 09/11/2023 10:06:50 09/11/19 24 09/11/2023 COMP METAB OLIC PANEL ALT (SGPT) 17 U/L 0-65 Not Available [facility] ([facility]) [address], [place], [address], 09/11/2023 10:06:50 09/11/19 24 09/11/2023 COMP METAB OLIC PANEL alk phosphatase 112 U/L 46-116 Not Available [facility] ([facility]) [address], [place], [address], 09/11/2023 10:06:50 12/03/19 24 12/03/2023 CBC AUTO W DIFF WBC 8.1 K/uL 4.0-10 .5 Not Available [facility] ([facility]) [address], [place], [address], 12/03/2023 09:59:25 12/03/19 24 12/03/2023 CBC AUTO W DIFF RBC 4.5 M/mm3 4.2-6. 4 Not Available [facility] ([facility]) [address], [place], [address], 12/03/2023 09:59:25 12/03/19 24 12/03/2023 CBC AUTO W DIFF HGB 13.3 gm/dL 12.5-1 6.0 Not Available [facility] ([facility]) [address], [place], [address], 12/03/2023 09:59:25 12/03/19 24 12/03/2023 CBC AUTO W DIFF HCT 40.8 % 37.0-4 7.0 Not Available [facility] ([facility]) [address], [place], [address], 12/03/2023 09:59:25 12/03/19 24 12/03/2023 CBC AUTO W DIFF MCV 90.5 fL 78-100 Not Available [facility] ([facility]) [address], [place], [address], 12/03/2023 09:59:25 12/03/19 24 12/03/2023 CBC AUTO W DIFF MCH 29.5 pg 27-31 Not Available [facility] ([facility]) [address], [place], [address], 12/03/2023 09:59:25 12/03/19 24 12/03/2023 CBC AUTO W DIFF MCHC 32.6 g/dL 32-36 Not Available [facility] ([facility]) [address], [place], [address], 12/03/2023 09:59:25 12/03/19 24 12/03/2023 CBC AUTO W DIFF RDW 13.5 % 11.5-1 4.0 Not Available [facility] ([facility]) [address], [place], [address], 12/03/2023 09:59:25 12/03/19 24 12/03/2023 CBC AUTO W DIFF platelet count 234 K/uL 150-45 0 Not Available [facility] ([facility]) [address], [place], [address], 12/03/2023 09:59:25 12/03/19 24 12/03/2023 CBC AUTO W DIFF MPV 9.8 fL 6-9.5 high Not Available [facility] ([facility]) [address], [place], [address], 12/03/2023 09:59:25 12/03/19 24 12/03/2023 CBC AUTO W DIFF neutrophil% 66.9 % 43-65 high Not Available [facility] ([facility]) [address], [place], [address], 12/03/2023 09:59:25 12/03/19 24 12/03/2023 CBC AUTO W DIFF lymphocyte% 16.2 % 20.5-4 5.5 low Not Available [facility] ([facility]) [address] [place], [address], 12/03/2023 09:59:25 12/03/19 24 12/03/2023 CBC AUTO W DIFF monocyte% 9.4 % 5.5-11 .7 Not Available [facility] ([facility]) [address], [place], [address], 12/03/2023 09:59:25 12/03/19 24 12/03/2023 CBC AUTO W DIFF eosinophil% 6.1 % 0.9-2. 9 high Not Available [facility] ([facility]) [address], [place], [address], 12/03/2023 09:59:25 12/03/19 24 12/03/2023 CBC AUTO W DIFF basophil% 0.7 % 0.2-1. 0 Not Available [facility] ([facility]) [address] [place], [address], 12/03/2023 09:59:25 12/03/19 24 12/03/2023 CBC AUTO W DIFF immature granulocytes % 0.7 % 0.0-0. 8 Not Available [facility] ([facility]) [address] [place], [address], 12/03/2023 09:59:25 12/03/19 24 12/03/2023 CBC AUTO W DIFF nucleated red blood cells % 0.0 % Not Available [facility] ([facility]) [address] [place], [address], 12/03/2023 09:59:25 12/03/19 24 12/03/2023 CBC AUTO W DIFF neutrophil# 5.4 K/uL 2.2-4. 8 high Not Available [facility] ([facility]) [address] [place], [address], 12/03/2023 09:59:25 12/03/19 24 12/03/2023 CBC AUTO W DIFF lymphocyte# 1.3 cell/ mcL 1.3-2. 9 Not Available [facility] ([facility]) [address] , [place], [address], 12/03/2023 09:59:25 12/03/19 24 12/03/2023 CBC AUTO W DIFF monocyte# 0.8 cell/ mcL 0.3-0. 8 Not Available [facility] ([facility]) [address] , [place], [address], 12/03/2023 09:59:25 12/03/19 24 12/03/2023 CBC AUTO W DIFF eosinophil# 0.5 cell/ mcL 0-0.2 high Not Available [facility] ([facility]) [address] , [place], [address], 12/03/2023 09:59:25 12/03/19 24 12/03/2023 CBC AUTO W DIFF basophil# 0.1 cell/ mcL 0.0-1. 0 Not Available [facility] ([facility]) [address] , [place], [address], 12/03/2023 09:59:25 12/03/19 24 12/03/2023 CBC AUTO W DIFF immature gramulocytes # 0.06 K/uL Not Available [facility] ([facility]) [address], [place], [address], 12/03/2023 09:59:25 12/03/19 24 12/03/2023 CBC AUTO W DIFF nucleated red blood cells # 0.00 K/uL Not Available [facility] ([facility]) [address] [place], [address], 12/03/2023 09:59:25 12/03/19 24 12/03/2023 CBC AUTO W DIFF manual differential NO Not Available [facility] ([facility]) [address] [place], [address], 12/03/2023 09:59:25 12/03/19 24 12/03/2023 COMP METAB OLIC PANEL sodium 140 mmol/ L 136-14 5 Not Available [facility] ([facility]) [address] , [place], [address], 12/03/2023 10:38:18 12/03/19 24 12/03/2023 COMP METAB OLIC PANEL potassium 3.5 mmol/ L 3.6-5. 0 low Not Available [facility] ([facility]) [address] , [place], [address], 12/03/2023 10:38:18 12/03/19 24 12/03/2023 COMP METAB OLIC PANEL chloride 100 mmol/ L 98-107 Not Available [facility] ([facility]) [address] , [place], [address], 12/03/2023 10:38:18 12/03/19 24 12/03/2023 COMP METAB OLIC PANEL carbon dioxide 33.6 mmol/ L 21.0-3 2.0 high Not Available [facility] ([facility]) [address] , [place], [address], 12/03/2023 10:38:18 12/03/19 24 12/03/2023 COMP METAB OLIC PANEL anion gap 9.9 Not Available [facility] ([facility]) [address] , [place], [address], 12/03/2023 10:38:18 12/03/19 24 12/03/2023 COMP METAB OLIC PANEL glucose 136 mg/dL 70-120 high Not Available [facility] ([facility]) [address] , [place], [address], 12/03/2023 10:38:18 12/03/19 24 12/03/2023 COMP METAB OLIC PANEL BUN 8 mg/dL 7-18 Not Available [facility] ([facility]) [address], [place], [address], 12/03/2023 10:38:18 12/03/19 24 12/03/2023 COMP METAB OLIC PANEL creatinine 1.0 mg/dL 0.6-1. 3 Not Available [facility] ([facility]) [address], [place], [address], 12/03/2023 10:38:18 12/03/19 24 12/03/2023 COMP METAB OLIC PANEL glomerular filtration rate TNP mlper min 60- TEST NOT PERFO RMED GFR has only been valid ated from 18 to 70 years of age. Not Available [facility] ([facility]) [address], [place], [address], 12/03/2023 10:38:18 12/03/19 24 12/03/2023 COMP METAB OLIC PANEL total protein 6.5 g/dL 6.4-8. 2 Not Available [facility] ([facility]) [address], [place], [address], 12/03/2023 10:38:18 12/03/19 24 12/03/2023 COMP METAB OLIC PANEL albumin 3.5 g/dL 3.4-5. 0 Not Available [facility] ([facility]) [address], [place], [address], 12/03/2023 10:38:18 12/03/19 24 12/03/2023 COMP METAB OLIC PANEL globulin 3.0 Not Available [facility] ([facility]) [address], [place], [address], 12/03/2023 10:38:18 12/03/19 24 12/03/2023 COMP METAB OLIC PANEL alb/glob ratio 1.2 0.7-2 Not Available [facility] ([facility]) [address], [place], [address], 12/03/2023 10:38:18 12/03/19 24 12/03/2023 COMP METAB OLIC PANEL calcium 9.3 mg/dL 8.5-10 .5 Not Available [facility] ([facility]) [address], [place], [address], 12/03/2023 10:38:18 12/03/19 24 12/03/2023 COMP METAB OLIC PANEL bilirubin total 0.40 mg/dL 0.10-1 .00 Not Available [facility] ([facility]) [address], [place], [address], 12/03/2023 10:38:18 12/03/19 24 12/03/2023 COMP METAB OLIC PANEL AST (SGOT) 11 U/L 0-37 Not Available [facility] ([facility]) [address] , [place], [address], 12/03/2023 10:38:18 12/03/19 24 12/03/2023 COMP METAB OLIC PANEL ALT (SGPT) 13 U/L 0-65 Not Available [facility] ([facility]) [address] , [place], [address], 12/03/2023 10:38:18 12/03/19 24 12/03/2023 COMP METAB OLIC PANEL alk phosphatase 114 U/L 46-116 Not Available [facility] ([facility]) [address] , [place], [address], 12/03/2023 10:38:18 03/03/20 24 03/03/2024 CBC AUTO W DIFF WBC 7.1 K/uL 4.0-10 .5 Not Available [facility] ([facility]) [address] , [place], [address], 03/03/2024 09:46:19 03/03/20 24 03/03/2024 CBC AUTO W DIFF RBC 4.7 M/mm3 4.2-6. 4 Not Available [facility] ([facility]) [address], [place], [address], 03/03/2024 09:46:19 03/03/20 24 03/03/2024 CBC AUTO W DIFF HGB 13.5 gm/dL 12.5-1 6.0 Not Available [facility] ([facility]) [address], [place], [address], 03/03/2024 09:46:19 03/03/20 24 03/03/2024 CBC AUTO W DIFF HCT 41.5 % 37.0-4 7.0 Not Available [facility] ([facility]) [address], [place], [address], 03/03/2024 09:46:19 03/03/20 24 03/03/2024 CBC AUTO W DIFF MCV 88.9 fL 78-100 Not Available [facility] ([facility]) [address], [place], [address], 03/03/2024 09:46:19 03/03/20 24 03/03/2024 CBC AUTO W DIFF MCH 28.9 pg 27-31 Not Available [facility] ([facility]) [address], [place], [address], 03/03/2024 09:46:19 03/03/20 24 03/03/2024 CBC AUTO W DIFF MCHC 32.5 g/dL 32-36 Not Available [facility] ([facility]) [address], [place], [address], 03/03/2024 09:46:19 03/03/20 24 03/03/2024 CBC AUTO W DIFF RDW 12.6 % 11.5-1 4.0 Not Available [facility] ([facility]) [address] , [place], [address], 03/03/2024 09:46:19 03/03/20 24 03/03/2024 CBC AUTO W DIFF platelet count 187 K/uL 150-45 0 Not Available [facility] ([facility]) [address] , [place], [address], 03/03/2024 09:46:19 03/03/20 24 03/03/2024 CBC AUTO W DIFF MPV 10.6 fL 6-9.5 high Not Available [facility] ([facility]) [address] , [place], [address], 03/03/2024 09:46:19 03/03/20 24 03/03/2024 CBC AUTO W DIFF neutrophil% 63.2 % 43-65 Not Available [facility] ([facility]) [address] , [place], [address], 03/03/2024 09:46:19 03/03/20 24 03/03/2024 CBC AUTO W DIFF lymphocyte% 16.8 % 20.5-4 5.5 low Not Available [facility] ([facility]) [address] , [place], [address], 03/03/2024 09:46:19 03/03/20 24 03/03/2024 CBC AUTO W DIFF monocyte% 9.4 % 5.5-11 .7 Not Available [facility] ([facility]) [address] , [place], [address], 03/03/2024 09:46:19 03/03/20 24 03/03/2024 CBC AUTO W DIFF eosinophil% 7.6 % 0.9-2. 9 high Not Available [facility] ([facility]) [address] [place], [address], 03/03/2024 09:46:19 03/03/20 24 03/03/2024 CBC AUTO W DIFF basophil% 1.0 % 0.2-1. 0 Not Available [facility] ([facility]) [address] [place], [address], 03/03/2024 09:46:19 03/03/20 24 03/03/2024 CBC AUTO W DIFF immature granulocytes % 2.0 % 0.0-0. 8 high Not Available [facility] ([facility]) [address] [place], [address], 03/03/2024 09:46:19 03/03/20 24 03/03/2024 CBC AUTO W DIFF nucleated red blood cells % 0.0 % Not Available [facility] ([facility]) [address], [place], [address], 03/03/2024 09:46:19 03/03/20 24 03/03/2024 CBC AUTO W DIFF neutrophil# 4.5 K/uL 2.2-4. 8 Not Available [facility] ([facility]) [address] [place], [address], 03/03/2024 09:46:19 03/03/20 24 03/03/2024 CBC AUTO W DIFF lymphocyte# 1.2 cell/ mcL 1.3-2. 9 low Not Available [facility] ([facility]) [address] [place], [address], 03/03/2024 09:46:19 03/03/20 24 03/03/2024 CBC AUTO W DIFF monocyte# 0.7 cell/ mcL 0.3-0. 8 Not Available [facility] ([facility]) [address] [place], [address], 03/03/2024 09:46:19 03/03/20 24 03/03/2024 CBC AUTO W DIFF eosinophil# 0.5 cell/ mcL 0-0.2 high Not Available [facility] ([facility]) [address] [place], [address], 03/03/2024 09:46:19 03/03/20 24 03/03/2024 CBC AUTO W DIFF basophil# 0.1 cell/ mcL 0.0-1. 0 Not Available [facility] ([facility]) [address], [place], [address], 03/03/2024 09:46:19 03/03/20 24 03/03/2024 CBC AUTO W DIFF immature gramulocytes # 0.14 K/uL Not Available [facility] ([facility]) [address], [place], [address], 03/03/2024 09:46:19 03/03/20 24 03/03/2024 CBC AUTO W DIFF nucleated red blood cells # 0.00 K/uL Not Available [facility] ([facility]) [address], [place], [address], 03/03/2024 09:46:19 03/03/20 24 03/03/2024 CBC AUTO W DIFF manual differential NO Not Available [facility] ([facility]) [address], [place], [address], 03/03/2024 09:46:19 03/03/20 24 03/03/2024 COMP METAB OLIC PANEL sodium 142 mmol/ L 136-14 5 Not Available [facility] ([facility]) [address], [place], [address], 03/03/2024 11:18:32 03/03/20 24 03/03/2024 COMP METAB OLIC PANEL potassium 3.6 mmol/ L 3.6-5. 0 Not Available [facility] ([facility]) [address], [place], [address], 03/03/2024 11:18:32 03/03/20 24 03/03/2024 COMP METAB OLIC PANEL chloride 103 mmol/ L 98-107 Not Available [facility] ([facility]) [address], [place], [address], 03/03/2024 11:18:32 03/03/20 24 03/03/2024 COMP METAB OLIC PANEL carbon dioxide 31.1 mmol/ L 21.0-3 2.0 Not Available [facility] ([facility]) [address], [place], [address], 03/03/2024 11:18:32 03/03/20 24 03/03/2024 COMP METAB OLIC PANEL anion gap 11.5 Not Available [facility] ([facility]) [address], [place], [address], 03/03/2024 11:18:32 03/03/20 24 03/03/2024 COMP METAB OLIC PANEL glucose 97 mg/dL 70-120 Not Available [facility] ([facility]) [address], [place], [address], 03/03/2024 11:18:32 03/03/20 24 03/03/2024 COMP METAB OLIC PANEL BUN 14 mg/dL 7-18 Not Available [facility] ([facility]) [address], [place], [address], 03/03/2024 11:18:32 03/03/20 24 03/03/2024 COMP METAB OLIC PANEL creatinine 0.9 mg/dL 0.6-1. 3 Not Available [facility] ([facility]) [address], [place], [address], 03/03/2024 11:18:32 03/03/20 24 03/03/2024 COMP METAB [...] cielo diet or rapid ly [facility]. Not Available [facility] ([facility]) [address] , [place], [address], 03/03/2024 11:18:32 03/03/20 24 03/03/2024 COMP METAB OLIC PANEL total protein 7.0 g/dL 6.4-8. 2 Not Available [facility] ([facility]) [address] , [place], [address], 03/03/2024 11:18:32 03/03/20 24 03/03/2024 COMP METAB OLIC PANEL albumin 3.7 g/dL 3.4-5. 0 Not Available [facility] ([facility]) [address] , [place], [address], 03/03/2024 11:18:32 03/03/20 24 03/03/2024 COMP METAB OLIC PANEL globulin 3.3 Not Available [facility] ([facility]) [address] , [place], [address], 03/03/2024 11:18:32 03/03/20 24 03/03/2024 COMP METAB OLIC PANEL alb/glob ratio 1.1 0.7-2 Not Available [facility] ([facility]) [address] , [place], [address], 03/03/2024 11:18:32 03/03/20 24 03/03/2024 COMP METAB OLIC PANEL calcium 9.2 mg/dL 8.5-10 .5 Not Available [facility] ([facility]) [address], [place], [address], 03/03/2024 11:18:32 03/03/20 24 03/03/2024 COMP METAB OLIC PANEL bilirubin total 0.40 mg/dL 0.10-1 .00 Not Available [facility] ([facility]) [address], [place], [address], 03/03/2024 11:18:32 03/03/20 24 03/03/2024 COMP METAB OLIC PANEL AST (SGOT) 12 U/L 0-37 Not Available [facility] ([facility]) [address], [place], [address], 03/03/2024 11:18:32 03/03/20 24 03/03/2024 COMP METAB OLIC PANEL ALT (SGPT) 11 U/L 0-65 Not Available [facility] ([facility]) [address], [place], [address], 03/03/2024 11:18:32 03/03/20 24 03/03/2024 COMP METAB OLIC PANEL alk phosphatase 117 U/L 46-116 high Not Available [facility] ([facility]) [address] , [place], [address], 03/03/2024 11:18:32 06/03/19 25 06/02/2024 CBC AUTO W DIFF WBC 6.3 K/uL 4.0-10 .5 Not Available [facility] ([facility]) [address] , [place], [address], 06/02/2024 10:02:27 06/03/19 25 06/02/2024 CBC AUTO W DIFF RBC 4.3 M/mm3 4.2-6. 4 Not Available [facility] ([facility]) [address] , [place], [address], 06/02/2024 10:02:27 06/03/19 25 06/02/2024 CBC AUTO W DIFF HGB 12.3 gm/dL 12.5-1 6.0 low Not Available [facility] ([facility]) [address] , [place], [address], 06/02/2024 10:02:27 06/03/19 25 06/02/2024 CBC AUTO W DIFF HCT 37.9 % 37.0-4 7.0 Not Available [facility] ([facility]) [address], [place], [address], 06/02/2024 10:02:27 06/03/19 25 06/02/2024 CBC AUTO W DIFF MCV 88.3 fL 78-100 Not Available [facility] ([facility]) [address] , [place], [address], 06/02/2024 10:02:27 06/03/19 25 06/02/2024 CBC AUTO W DIFF MCH 28.7 pg 27-31 Not Available [facility] ([facility]) [address] , [place], [address], 06/02/2024 10:02:27 06/03/19 25 06/02/2024 CBC AUTO W DIFF MCHC 32.5 g/dL 32-36 Not Available [facility] ([facility]) [address] , [place], [address], 06/02/2024 10:02:27 06/03/19 25 06/02/2024 CBC AUTO W DIFF RDW 13.3 % 11.5-1 4.0 Not Available [facility] ([facility]) [address] , [place], [address], 06/02/2024 10:02:27 06/03/19 25 06/02/2024 CBC AUTO W DIFF platelet count 190 K/uL 150-45 0 Not Available [facility] ([facility]) [address] , [place], [address], 06/02/2024 10:02:27 06/03/19 25 06/02/2024 CBC AUTO W DIFF MPV 10.8 fL 6-9.5 high Not Available [facility] ([facility]) [address] , [place], [address], 06/02/2024 10:02:27 06/03/19 25 06/02/2024 CBC AUTO W DIFF neutrophil% 63.2 % 43-65 Not Available [facility] ([facility]) [address] [place], [address], 06/02/2024 10:02:27 06/03/19 25 06/02/2024 CBC AUTO W DIFF lymphocyte% 16.9 % 20.5-4 5.5 low Not Available [facility] ([facility]) [address] [place], [address], 06/02/2024 10:02:27 06/03/19 25 06/02/2024 CBC AUTO W DIFF monocyte% 11.2 % 5.5-11 .7 Not Available [facility] ([facility]) [address], [place], [address], 06/02/2024 10:02:27 06/03/19 25 06/02/2024 CBC AUTO W DIFF eosinophil% 6.9 % 0.9-2. 9 high Not Available [facility] ([facility]) [address] [place], [address], 06/02/2024 10:02:27 06/03/19 25 06/02/2024 CBC AUTO W DIFF basophil% 0.8 % 0.2-1. 0 Not Available [facility] ([facility]) [address] [place], [address], 06/02/2024 10:02:27 06/03/19 25 06/02/2024 CBC AUTO W DIFF immature granulocytes % 1.0 % 0.0-0. 8 high Not Available [facility] ([facility]) [address] [place], [address], 06/02/2024 10:02:27 06/03/19 25 06/02/2024 CBC AUTO W DIFF nucleated red blood cells % 0.0 % Not Available [facility] ([facility]) [address] [place], [address], 06/02/2024 10:02:27 06/03/19 25 06/02/2024 CBC AUTO W DIFF neutrophil# 4.0 K/uL 2.2-4. 8 Not Available [facility] ([facility]) [address], [place], [address], 06/02/2024 10:02:27 06/03/19 25 06/02/2024 CBC AUTO W DIFF lymphocyte# 1.1 cell/ mcL 1.3-2. 9 low Not Available [facility] ([facility]) [address], [place], [address], 06/02/2024 10:02:27 06/03/19 25 06/02/2024 CBC AUTO W DIFF monocyte# 0.7 cell/ mcL 0.3-0. 8 Not Available [facility] ([facility]) [address], [place], [address], 06/02/2024 10:02:27 06/03/19 25 06/02/2024 CBC AUTO W DIFF eosinophil# 0.4 cell/ mcL 0-0.2 high Not Available [facility] ([facility]) [address], [place], [address], 06/02/2024 10:02:27 06/03/19 25 06/02/2024 CBC AUTO W DIFF basophil# 0.1 cell/ mcL 0.0-1. 0 Not Available [facility] ([facility]) [address] [place], [address], 06/02/2024 10:02:27 06/03/19 25 06/02/2024 CBC AUTO W DIFF immature gramulocytes # 0.06 K/uL Not Available [facility] ([facility]) [address] [place], [address], 06/02/2024 10:02:27 06/03/19 25 06/02/2024 CBC AUTO W DIFF nucleated red blood cells # 0.00 K/uL Not Available [facility] ([facility]) [address], [place], [address], 06/02/2024 10:02:27 06/03/19 25 06/02/2024 CBC AUTO W DIFF manual differential NO Not Available [facility] ([facility]) [address] , [place], [address], 06/02/2024 10:02:27 06/03/19 25 06/02/2024 COMP METAB OLIC PANEL sodium 140 mmol/ L 136-14 5 Not Available [facility] ([facility]) [address] , [place], [address], 06/02/2024 10:10:56 06/03/19 25 06/02/2024 COMP METAB OLIC PANEL potassium 3.6 mmol/ L 3.6-5. 0 Not Available [facility] ([facility]) [address] , [place], [address], 06/02/2024 10:10:56 06/03/19 25 06/02/2024 COMP METAB OLIC PANEL chloride 101 mmol/ L 98-107 Not Available [facility] ([facility]) [address] , [place], [address], 06/02/2024 10:10:56 06/03/19 25 06/02/2024 COMP METAB OLIC PANEL carbon dioxide 32.5 mmol/ L 21.0-3 2.0 high Not Available [facility] ([facility]) [address] , [place], [address], 06/02/2024 10:10:56 06/03/19 25 06/02/2024 COMP METAB OLIC PANEL anion gap 10.1 Not Available [facility] ([facility]) [address] , [place], [address], 06/02/2024 10:10:56 06/03/19 25 06/02/2024 COMP METAB OLIC PANEL glucose 251 mg/dL 70-120 high Not Available [facility] ([facility]) [address], [place], [address], 06/02/2024 10:10:56 06/03/19 25 06/02/2024 COMP METAB OLIC PANEL BUN 13 mg/dL 7-18 Not Available [facility] ([facility]) [address], [place], [address], 06/02/2024 10:10:56 06/03/19 25 06/02/2024 COMP METAB OLIC PANEL creatinine 0.9 mg/dL 0.6-1. 3 Not Available [facility] ([facility]) [address], [place], [address], 06/02/2024 10:10:56 06/03/19 25 06/02/2024 COMP METAB [...] kenyon ing kiney funct ion. Not Available [facility] ([facility]) [address], [place], [address], 06/02/2024 10:10:56 06/03/19 25 06/02/2024 COMP METAB OLIC PANEL osmolality (calculated) 300 mOsm/ kg 275-30 1 OSMOL ALITY IS A CALCU LATIO N UTILI ZING THE SERUM /PLAS MA SODIU M, GLUCO SE AND UREA NITRO GEN (BUN) LEVEL S. FOR THE MOST ACCUR ATE RESUL T A MEASU RED SERUM OSMOL ALITY IS SUGGE STED. Not Available [facility] ([facility]) [address], [place], [address], 06/02/2024 10:10:56 06/03/19 25 06/02/2024 COMP METAB OLIC PANEL total protein 6.6 g/dL 6.4-8. 2 Not Available [facility] ([facility]) [address], [place], [address], 06/02/2024 10:10:56 06/03/19 25 06/02/2024 COMP METAB OLIC PANEL albumin 3.2 g/dL 3.4-5. 0 low Not Available [facility] ([facility]) [address], [place], [address], 06/02/2024 10:10:56 06/03/19 25 06/02/2024 COMP METAB OLIC PANEL globulin 3.4 Not Available [facility] ([facility]) [address], [place], [address], 06/02/2024 10:10:56 06/03/19 25 06/02/2024 COMP METAB OLIC PANEL alb/glob ratio 0.9 0.7-2 Not Available [facility] ([facility]) [address], [place], [address], 06/02/2024 10:10:56 06/03/19 25 06/02/2024 COMP METAB OLIC PANEL calcium 9.3 mg/dL 8.5-10 .5 Not Available [facility] ([facility]) [address], [place], [address], 06/02/2024 10:10:56 06/03/19 25 06/02/2024 COMP METAB OLIC PANEL bilirubin total 0.50 mg/dL 0.10-1 .00 Not Available [facility] ([facility]) [address], [place], [address], 06/02/2024 10:10:56 06/03/19 25 06/02/2024 COMP METAB OLIC PANEL AST (SGOT) 10 U/L 0-37 Not Available [facility] ([facility]) [address], [place], [address], 06/02/2024 10:10:56 06/03/19 25 06/02/2024 COMP METAB OLIC PANEL ALT (SGPT) 19 U/L 0-65 Not Available [facility] ([facility]) [address], [place], [address], 06/02/2024 10:10:56 06/03/19 25 06/02/2024 COMP METAB OLIC PANEL alk phosphatase 130 U/L 46-116 high Not Available [facility] ([facility]) [address] , [place], [address], 06/02/2024 10:10:56 09/03/19 25 09/02/2024 COMP METAB OLIC PANEL sodium 142 mmol/ L 136-14 5 Not Available [facility] ([facility]) [address] , [place], [address], 09/02/2024 10:28:32 09/03/19 25 09/02/2024 COMP METAB OLIC PANEL potassium 3.9 mmol/ L 3.6-5. 0 Not Available [facility] ([facility]) [address] , [place], [address], 09/02/2024 10:28:32 09/03/19 25 09/02/2024 COMP METAB OLIC PANEL chloride 103 mmol/ L 98-107 Not Available [facility] ([facility]) [address] , [place], [address], 09/02/2024 10:28:32 09/03/19 25 09/02/2024 COMP METAB OLIC PANEL carbon dioxide 30.0 mmol/ L 21.0-3 2.0 Not Available [facility] ([facility]) [address] , [place], [address], 09/02/2024 10:28:32 09/03/19 25 09/02/2024 COMP METAB OLIC PANEL anion gap 12.9 Not Available [facility] ([facility]) [address], [place], [address], 09/02/2024 10:28:32 09/03/19 25 09/02/2024 COMP METAB OLIC PANEL glucose 111 mg/dL 70-120 Not Available [facility] ([facility]) [address], [place], [address], 09/02/2024 10:28:32 09/03/19 25 09/02/2024 COMP METAB OLIC PANEL BUN 17 mg/dL 7-18 Not Available [facility] ([facility]) [address], [place], [address], 09/02/2024 10:28:32 09/03/19 25 09/02/2024 COMP METAB OLIC PANEL creatinine 1.0 mg/dL 0.6-1. 3 Not Available [facility] ([facility]) [address], [place], [address], 09/02/2024 10:28:32 09/03/19 25 09/02/2024 COMP METAB [...] kenyon ing kiney funct ion. Not Available [facility] ([facility]) [address], [place], [address], 09/02/2024 10:28:32 09/03/19 25 09/02/2024 COMP METAB OLIC PANEL osmolality (calculated) 297 mOsm/ kg 275-30 1 OSMOL ALITY IS A CALCU LATIO N UTILI ZING THE SERUM /PLAS MA SODIU M, GLUCO SE AND UREA NITRO GEN (BUN) LEVEL S. FOR THE MOST ACCUR ATE RESUL T A MEASU RED SERUM OSMOL ALITY IS VISHAL WAND. Not Available [facility] ([facility]) [address], [place], [address], 09/02/2024 10:28:32 09/03/19 25 09/02/2024 COMP METAB OLIC PANEL total protein 6.8 g/dL 6.4-8. 2 Not Available [facility] ([facility]) [address], [place], [address], 09/02/2024 10:28:32 09/03/19 25 09/02/2024 COMP METAB OLIC PANEL albumin 3.6 g/dL 3.4-5. 0 Not Available [facility] ([facility]) [address], [place], [address], 09/02/2024 10:28:32 09/03/19 25 09/02/2024 COMP METAB OLIC PANEL globulin 3.2 Not Available [facility] ([facility]) [address], [place], [address], 09/02/2024 10:28:32 09/03/19 25 09/02/2024 COMP METAB OLIC PANEL alb/glob ratio 1.1 0.7-2 Not Available [facility] ([facility]) [address], [place], [address], 09/02/2024 10:28:32 09/03/19 25 09/02/2024 COMP METAB OLIC PANEL calcium 9.2 mg/dL 8.5-10 .5 Not Available [facility] ([facility]) [address] [place], [address], 09/02/2024 10:28:32 09/03/19 25 09/02/2024 COMP METAB OLIC PANEL bilirubin total 0.40 mg/dL 0.10-1 .00 Not Available [facility] ([facility]) [address], [place], [address], 09/02/2024 10:28:32 09/03/19 25 09/02/2024 COMP METAB OLIC PANEL AST (SGOT) 11 U/L 0-37 Not Available [facility] ([facility]) [address], [place], [address], 09/02/2024 10:28:32 09/03/19 25 09/02/2024 COMP METAB OLIC PANEL ALT (SGPT) 19 U/L 0-65 Not Available [facility] ([facility]) [address] , [place], [address], 09/02/2024 10:28:32 09/03/19 25 09/02/2024 COMP METAB OLIC PANEL alk phosphatase 117 U/L 46-116 high Not Available [facility] ([facility]) [address] , [place], [address], 09/02/2024 10:28:32 09/03/19 25 09/02/2024 CBC AUTO W DIFF WBC 3.4 K/uL 4.0-10 .5 low Not Available [facility] ([facility]) [address] , [place], [address], 09/02/2024 10:42:36 09/03/19 25 09/02/2024 CBC AUTO W DIFF RBC 5.1 M/mm3 4.2-6. 4 Not Available [facility] ([facility]) [address] , [place], [address], 09/02/2024 10:42:36 09/03/19 25 09/02/2024 CBC AUTO W DIFF HGB 13.9 gm/dL 12.5-1 6.0 Not Available [facility] ([facility]) [address] , [place], [address], 09/02/2024 10:42:36 09/03/19 25 09/02/2024 CBC AUTO W DIFF HCT 43.5 % 37.0-4 7.0 Not Available [facility] ([facility]) [address] , [place], [address], 09/02/2024 10:42:36 09/03/19 25 09/02/2024 CBC AUTO W DIFF MCV 86.0 fL 78-100 Not Available [facility] ([facility]) [address] , [place], [address], 09/02/2024 10:42:36 09/03/19 25 09/02/2024 CBC AUTO W DIFF MCH 27.5 pg 27-31 Not Available [facility] ([facility]) [address] , [place], [address], 09/02/2024 10:42:36 09/03/19 25 09/02/2024 CBC AUTO W DIFF MCHC 32.0 g/dL 32-36 Not Available [facility] ([facility]) [address] , [place], [address], 09/02/2024 10:42:36 09/03/19 25 09/02/2024 CBC AUTO W DIFF RDW 13.0 % 11.5-1 4.0 Not Available [facility] ([facility]) [address] , [place], [address], 09/02/2024 10:42:36 09/03/19 25 09/02/2024 CBC AUTO W DIFF platelet count 218 K/uL 150-45 0 Not Available [facility] ([facility]) [address] , [place], [address], 09/02/2024 10:42:36 09/03/19 25 09/02/2024 CBC AUTO W DIFF MPV 10.0 fL 6-9.5 high Not Available [facility] ([facility]) [address] [place], [address], 09/02/2024 10:42:36 09/03/19 25 09/02/2024 CBC AUTO W DIFF neutrophil% 10.4 % 43-65 low Not Available [facility] ([facility]) [address] [place], [address], 09/02/2024 10:42:36 09/03/19 25 09/02/2024 CBC AUTO W DIFF lymphocyte% 45.7 % 20.5-4 5.5 high Not Available [facility] ([facility]) [address] [place], [address], 09/02/2024 10:42:36 09/03/19 25 09/02/2024 CBC AUTO W DIFF monocyte% 23.4 % 5.5-11 .7 high Not Available [facility] ([facility]) [address] [place], [address], 09/02/2024 10:42:36 09/03/19 25 09/02/2024 CBC AUTO W DIFF eosinophil% 18.4 % 0.9-2. 9 high Not Available [facility] ([facility]) [address] [place], [address], 09/02/2024 10:42:36 09/03/19 25 09/02/2024 CBC AUTO W DIFF basophil% 1.8 % 0.2-1. 0 high Not Available [facility] ([facility]) [address] [place], [address], 09/02/2024 10:42:36 09/03/19 25 09/02/2024 CBC AUTO W DIFF immature granulocytes % 0.3 % 0.0-0. 8 Not Available [facility] ([facility]) [address] [place], [address], 09/02/2024 10:42:36 09/03/19 25 09/02/2024 CBC AUTO W DIFF nucleated red blood cells % 0.0 % Not Available [facility] ([facility]) [address], [place], [address], 09/02/2024 10:42:36 09/03/19 25 09/02/2024 CBC AUTO W DIFF neutrophil# 0.4 K/uL 2.2-4. 8 low Not Available [facility] ([facility]) [address], [place], [address], 09/02/2024 10:42:36 09/03/19 25 09/02/2024 CBC AUTO W DIFF lymphocyte# 1.5 cell/ mcL 1.3-2. 9 Not Available [facility] ([facility]) [address], [place], [address], 09/02/2024 10:42:36 09/03/19 25 09/02/2024 CBC AUTO W DIFF monocyte# 0.8 cell/ mcL 0.3-0. 8 Not Available [facility] ([facility]) [address], [place], [address], 09/02/2024 10:42:36 09/03/19 25 09/02/2024 CBC AUTO W DIFF eosinophil# 0.6 cell/ mcL 0-0.2 high Not Available [facility] ([facility]) [address] [place], [address], 09/02/2024 10:42:36 09/03/19 25 09/02/2024 CBC AUTO W DIFF basophil# 0.1 cell/ mcL 0.0-1. 0 Not Available [facility] ([facility]) [address], [place], [address], 09/02/2024 10:42:36 09/03/19 25 09/02/2024 CBC AUTO W DIFF immature gramulocytes # 0.01 K/uL Not Available [facility] ([facility]) [address], [place], [address], 09/02/2024 10:42:36 09/03/19 25 09/02/2024 CBC AUTO W DIFF nucleated red blood cells # 0.00 K/uL Not Available [facility] ([facility]) [address], [place], [address], 09/02/2024 10:42:36 09/03/19 25 09/02/2024 CBC AUTO W DIFF manual differential YES Not Available [facility] ([facility]) [address], [place], [address], 09/02/2024 10:42:36 09/03/19 25 09/02/2024 CBC AUTO W DIFF segmented neutrophil 11 % 42-76 low Not Available [facility] ([facility]) [address], [place], [address], 09/02/2024 10:42:36 09/03/19 25 09/02/2024 CBC AUTO W DIFF lymphocyte 44 % 15-41 high Not Available [facility] ([facility]) [address], [place], [address], 09/02/2024 10:42:36 09/03/19 25 09/02/2024 CBC AUTO W DIFF monocyte 20 % 2-9 high Not Available [facility] ([facility]) [address], [place], [address], 09/02/2024 10:42:36 09/03/19 25 09/02/2024 CBC AUTO W DIFF eosinophil 19 % 0-3 high Not Available [facility] ([facility]) [address], [place], [address], 09/02/2024 10:42:36 09/03/19 25 09/02/2024 CBC AUTO W DIFF basophil 5 0-1 high Not Available [facility] ([facility]) [address] , [place], [address], 09/02/2024 10:42:36 09/03/19 25 09/02/2024 CBC AUTO W DIFF metamyelocyt e 1 % 0-1 Not Available [facility] ([facility]) [address] , [place], [address], 09/02/2024 10:42:36 09/03/19 25 09/02/2024 CBC AUTO W DIFF platelet estimate ADEQUA TE adequa te Not Available [facility] ([facility]) [address], [place], [address], 09/02/2024 10:42:36 09/03/19 25 09/02/2024 CBC AUTO W DIFF platelet morphology NORMAL normal Not Available [facility] ([facility]) [address] , [place], [address], 09/02/2024 10:42:36 09/03/19 25 09/02/2024 CBC AUTO W DIFF RBC morphology NORMAL normal Not Available [facility] ([facility]) [address] , [place], [address], 09/02/2024 10:42:36 09/03/19 25 09/02/2024 LDH (LD) LDH 181 U/L 0-190 Not Available [facility] ([facility]) [address], [place], [address], 09/02/2024 10:46:50 12/10/19 25 12/09/2024 CBC AUTO W DIFF WBC 8.9 K/uL 4.0-10 .5 Not Available [facility] ([facility]) [address], [place], [address], 12/09/2024 09:34:16 12/10/19 25 12/09/2024 CBC AUTO W DIFF RBC 5.0 M/mm3 4.2-6. 4 Not Available [facility] ([facility]) [address] , [place], [address], 12/09/2024 09:34:16 12/10/19 25 12/09/2024 CBC AUTO W DIFF HGB 13.8 gm/dL 12.5-1 6.0 Not Available [facility] ([facility]) [address] , [place], [address], 12/09/2024 09:34:16 12/10/19 25 12/09/2024 CBC AUTO W DIFF HCT 42.3 % 37.0-4 7.0 Not Available [facility] ([facility]) [address] , [place], [address], 12/09/2024 09:34:16 12/10/19 25 12/09/2024 CBC AUTO W DIFF MCV 84.8 fL 78-100 Not Available [facility] ([facility]) [address] , [place], [address], 12/09/2024 09:34:16 12/10/19 25 12/09/2024 CBC AUTO W DIFF MCH 27.7 pg 27-31 Not Available [facility] ([facility]) [address] , [place], [address], 12/09/2024 09:34:16 12/10/19 25 12/09/2024 CBC AUTO W DIFF MCHC 32.6 g/dL 32-36 Not Available [facility] ([facility]) [address] , [place], [address], 12/09/2024 09:34:16 12/10/19 25 12/09/2024 CBC AUTO W DIFF RDW 14.5 % 11.5-1 4.0 high Not Available [facility] ([facility]) [address], [place], [address], 12/09/2024 09:34:16 12/10/19 25 12/09/2024 CBC AUTO W DIFF platelet count 224 K/uL 150-45 0 Not Available [facility] ([facility]) [address], [place], [address], 12/09/2024 09:34:16 12/10/19 25 12/09/2024 CBC AUTO W DIFF MPV 10.1 fL 6-9.5 high Not Available [facility] ([facility]) [address], [place], [address], 12/09/2024 09:34:16 12/10/19 25 12/09/2024 CBC AUTO W DIFF neutrophil% 63.2 % 43-65 Not Available [facility] ([facility]) [address] , [place], [address], 12/09/2024 09:34:16 12/10/19 25 12/09/2024 CBC AUTO W DIFF lymphocyte% 23.1 % 20.5-4 5.5 Not Available [facility] ([facility]) [address] , [place], [address], 12/09/2024 09:34:16 12/10/19 25 12/09/2024 CBC AUTO W DIFF monocyte% 7.6 % 5.5-11 .7 Not Available [facility] ([facility]) [address], [place], [address], 12/09/2024 09:34:16 12/10/19 25 12/09/2024 CBC AUTO W DIFF eosinophil% 4.5 % 0.9-2. 9 high Not Available [facility] ([facility]) [address] , [place], [address], 12/09/2024 09:34:16 12/10/19 25 12/09/2024 CBC AUTO W DIFF basophil% 0.8 % 0.2-1. 0 Not Available [facility] ([facility]) [address] [place], [address], 12/09/2024 09:34:16 12/10/19 25 12/09/2024 CBC AUTO W DIFF immature granulocytes % 0.8 % 0.0-0. 8 Not Available [facility] ([facility]) [address], [place], [address], 12/09/2024 09:34:16 12/10/19 25 12/09/2024 CBC AUTO W DIFF nucleated red blood cells % 0.0 % Not Available [facility] ([facility]) [address], [place], [address], 12/09/2024 09:34:16 12/10/19 25 12/09/2024 CBC AUTO W DIFF neutrophil# 5.6 K/uL 2.2-4. 8 high Not Available [facility] ([facility]) [address], [place], [address], 12/09/2024 09:34:16 12/10/19 25 12/09/2024 CBC AUTO W DIFF lymphocyte# 2.0 cell/ mcL 1.3-2. 9 Not Available [facility] ([facility]) [address] [place], [address], 12/09/2024 09:34:16 12/10/19 25 12/09/2024 CBC AUTO W DIFF monocyte# 0.7 cell/ mcL 0.3-0. 8 Not Available [facility] ([facility]) [address] [place], [address], 12/09/2024 09:34:16 12/10/19 25 12/09/2024 CBC AUTO W DIFF eosinophil# 0.4 cell/ mcL 0-0.2 high Not Available [facility] ([facility]) [address] [facility] [place], [address], 12/09/2024 09:34:16 12/10/1912/09/2024 CBC AUTO W DIFF basophil# 0.1 cell/ mcL 0.0-1. 0 Not Available [facility] ([facility]) [address], [place], [address], 12/09/2024 09:34:16 12/10/19 25 12/09/2024 CBC AUTO W DIFF immature gramulocytes # 0.07 K/uL Not Available [facility] ([facility]) [address], [place], [address], 12/09/2024 09:34:16 12/10/19 25 12/09/2024 CBC AUTO W DIFF nucleated red blood cells # 0.00 K/uL Not Available [facility] ([facility]) [address], [place], [address], 12/09/2024 09:34:16 12/10/1912/09/2024 CBC AUTO W DIFF manual differential NO Not Available [facility] ([facility]) [address], [place], [address], 12/09/2024 09:34:16 12/10/1912/09/2024 COMP METAB OLIC PANEL sodium 139 mmol/ L 136-14 5 Not Available [facility] ([facility]) [address], [place], [address], 12/09/2024 09:46:13 12/10/1912/09/2024 COMP METAB OLIC PANEL potassium 3.8 mmol/ L 3.6-5. 0 Not Available [facility] ([facility]) [address], [place], [address], 12/09/2024 09:46:13 12/10/19 25 12/09/2024 COMP METAB OLIC PANEL chloride 102 mmol/ L 98-107 Not Available [facility] ([facility]) [address] , [place], [address], 12/09/2024 09:46:13 12/10/19 25 12/09/2024 COMP METAB OLIC PANEL carbon dioxide 29.0 mmol/ L 21.0-3 2.0 Not Available [facility] ([facility]) [address] , [place], [address], 12/09/2024 09:46:13 12/10/1912/09/2024 COMP METAB OLIC PANEL anion gap 11.8 Not Available [facility] ([facility]) [address] , [place], [address], 12/09/2024 09:46:13 12/10/1912/09/2024 COMP METAB OLIC PANEL glucose 221 mg/dL 70-120 high Not Available [facility] ([facility]) [address] , [place], [address], 12/09/2024 09:46:13 12/10/19 25 12/09/2024 COMP METAB OLIC PANEL BUN 21 mg/dL 7-18 high Not Available [facility] ([facility]) [address], [place], [address], 12/09/2024 09:46:13 12/10/1912/09/2024 COMP METAB OLIC PANEL creatinine 0.9 mg/dL 0.6-1. 3 Not Available [facility] ([facility]) [address], [place], [address], 12/09/2024 09:46:13 12/10/19 25 12/09/2024 COMP METAB [...] kenyon ing kiney funct ion. Not Available [facility] ([facility]) [address], [place], [address], 12/09/2024 09:46:13 12/10/19 25 12/09/2024 COMP METAB OLIC PANEL osmolality (calculated) 299 mOsm/ kg 275-30 1 OSMOL ALITY IS A CALCU LATIO N UTILI ZING THE SERUM /PLAS MA SODIU M, GLUCO SE AND UREA NITRO GEN (BUN) LEVEL S. FOR THE MOST ACCUR ATE RESUL T A MEASU RED SERUM OSMOL ALITY IS SUGGE STED. Not Available [facility] ([facility]) [address], [place], [address], 12/09/2024 09:46:13 12/10/19 25 12/09/2024 COMP METAB OLIC PANEL total protein 6.8 g/dL 6.4-8. 2 Not Available [facility] ([facility]) [address], [place], [address], 12/09/2024 09:46:13 12/10/19 25 12/09/2024 COMP METAB OLIC PANEL albumin 3.5 g/dL 3.4-5. 0 Not Available [facility] ([facility]) [address], [place], [address], 12/09/2024 09:46:13 12/10/19 25 12/09/2024 COMP METAB OLIC PANEL globulin 3.3 Not Available [facility] ([facility]) [address], [place], [address], 12/09/2024 09:46:13 12/10/19 25 12/09/2024 COMP METAB OLIC PANEL alb/glob ratio 1.1 0.7-2 Not Available [facility] ([facility]) [address], [place], [address], 12/09/2024 09:46:13 12/10/19 25 12/09/2024 COMP METAB OLIC PANEL calcium 8.7 mg/dL 8.5-10 .5 Not Available [facility] ([facility]) [address], [place], [address], 12/09/2024 09:46:13 12/10/19 25 12/09/2024 COMP METAB OLIC PANEL bilirubin total 0.30 mg/dL 0.10-1 .00 Not Available [facility] ([facility]) [address], [place], [address], 12/09/2024 09:46:13 12/10/1912/09/2024 COMP METAB OLIC PANEL AST (SGOT) 10 U/L 0-37 Not Available [facility] ([facility]) [address], [place], [address], 12/09/2024 09:46:13 12/10/1912/09/2024 COMP METAB OLIC PANEL ALT (SGPT) 16 U/L 0-65 Not Available [facility] ([facility]) [address], [place], [address], 12/09/2024 09:46:13 12/10/19 25 12/09/2024 COMP METAB OLIC PANEL alk phosphatase 125 U/L 46-116 high Not Available [facility] ([facility]) [address], [place], [address], 12/09/2024 09:46:13 12/10/19 25 12/09/2024 LDH (LD) LDH 172 U/L 0-190 Not Available [facility] ([facility]) [address], [place], [address], 12/09/2024 10:09:06 08/28/19 24 08/27/2023 CT, chest , w/ contr ast [facility] [address] [facility] [address] [place] [address] Phone: Fax: Name: TAY PURDY Exam Date: 024 : [birth year] Age 77 years Gender : F Access ion: [id number] Physic aiden: ENRIQUE LOU Facili ty: [facility] Facili ty HSV: Outpat ient Exam: [...] Thank you for referr TAY Ni to [facility] it Hospit al. Legall y authen ticate d by MARISOL Villatoro IVO 08-27 10:41: 00 CC'ed Logic: Orderi ng Provid er: CARMINE CAR Attend ing Provid er: CARMINE CAR Referr ing Provid er: CARMINE CAR Admitt ing Provid er: CARMINE CAR mervin[address] [facility] [address], [place], [address], 08/30/2023 12:47:44 07/02/19 25 06/30/2024 CT ABD pel w/ (IV [facility] [address] [place] [address] Phone: Fax: Name: NAVARR E, TAY Exam Date: 025 : [birth year] Age 78 years Gender : F Access ion: [id number] Physic aiden: WILIAN ESTRADA Facili ty: [facility] Facili ty HSV: Outpat ient Exam: [...] you for referr ing TAY PURDY to [facility]. Legall y authen ticate d by MARY DAVIS 06-30 13:59: 23 CC'ed Logic: Orderi ng Provid er: ARELIS CEDENO Attend ing Provid er: ARELIS CEDENO Referr ing Provid er: ARELIS Carreonitt ing Provid er: ARELIS CEDENO mervin[address] [facility] [address] [place] [address], [place], [address], 07/01/2024 08:53:08 07/02/19 25 06/30/2024 CT, chest , w/ contr ast [facility] [address] [place] [address] Phone: Fax: Name: YOMI RoniTAY Exam Date: : [birth year] Age 78 years Gender : F Access ion: [id number] Physic aiden: ARELIS Flores WILIAN Facili ty: [facility] Facili ty HSV: Outpat ient Exam: [...] you for referr ing TAY PURDY to [facility] ity Hospit al. Legall y authen ticate d by MARY DAVIS 06-30 13:59: 16 CC'ed Logic: Orderi ng Provid er: ARELIS CEDENO Attend ing Provid er: ARELIS CEDENO Referr ing Provid er: ARELIS CEDENO Admitt ing Provid er: ARELIS CEDENO [email or web address] [facility] [address], [place], [address], 07/01/2024 08:53:08 Result Notes Documentation Provider Name and Address Organization Details Recorded Time Ct, Chest, W/ Contrast : [facility] [address] [place] [address] Name: TAY FONSECA Exam Date: 06/30/2024 : 1945 Age 78 years Gender: F Physician: WILIAN OLSEN Facility: [facility] Facility HSV: Outpatient Exam: CT CHEST [...] Josiah Negro MD 07/01/2024 08:34 AM EDT Dictated By: Josiah Negro Transcribed By: Transcribed On: 06/30/2024 1:59 PM Electronically signed by: Josiah Negro 06/30/2024 Thank you for referring TAY FONSECA to [facility]. Legally authenticated by MARY DAVIS 2024-06-30 13:59:16 CC'ed Logic: Ordering Provider: RAÚL CEDENO Attending Provider: RAÚL CEDENO Referring Provider: RAÚL CEDENO Admitting Provider: RAÚL Olsen PA-C [address], [place], [address], [place] [facility] [place] [facility] [place] 07/01/2024 08:53:08 Problems Name Problem SNOMED Code Status Onset Date Resolution Date Notes Provider Name and Address Organization Details Recorded Time Anemia 853040661 Active Amy Dustin null, [place] [facility] [place] 4 10:29:57 Abdominal mass 670825198 Active Amy Dustin null, [place] - [facility] [place] [facility] [place] 4 10:29:57 Lymphadenopath y 45072937 Active Amy Dustin null, [place] [facility] [place] 4 10:29:57 Hyperlipidemia 61279349 Active Amy Dustin null, [place] [facility] [place] 10:29:57 Fracture of pelvis 34478515 Active Amy Dustin null, [place] - [facility] [place] 10:29:57 Problem Notes Documentation Provider Name and Address Organization Details Recorded Time Dish Person Consult Note : SW met with pt accompanied by a caregiver. Pt reported that she'd had a heart attack and was having issues with sleeping. SW provided education on sleep hygiene and provided support for pt and encouraged pt to reach out for ongoing needs. Lynn Rose null, [place] - [facility] [place] 09/11/2023 16:57:34 Procedures Surgical History Date Name Laterality Status Provider Name and Address Organization Details Recorded Time hysterectomy completed Amy SEN [place] [facility] [place] & [place] 03/20/2023 10:33:17 banding of varix of stomach completed Amy Dustin [place] - [facility] - & [place] 03/20/2023 10:34:08 procedure on ankle completed Amy Chan [place] - [facility] & [place] 06/03/2023 13:59:58 Imaging Results None recorded. Procedure Notes None recorded. Medical Equipment None Reported. Allergies Allergen ID Allergen Name Allergen Category Reaction Reaction Severity Criticality Documentation Date Start Date Code Code System Note Provider Name and Address Organization Details Recorded Time 972082 Product containin g penicilli n (product) medicatio n Not available Not available Not available 03/20/2023 51746 8001 SNOMED Other react ions and sever ities : 'Adve rse react ion to subst ance' . Amy Chan null, [place] - [facility] & [place] 10:29:56 Medications Name Sig Start Date Stop [...] Available Not Available Not Available Vitamin D3 97108 active Not Available Not Av ailable Not [...] Updated DateTime 5 157.48 cm 37.5 kg/m2 17352.7 2 g 97.4 [degF] 93 % 93 % 112 /min 20 /min 164/72 mm[Hg] Farhana BEARDEN [facility] & [place] 5 09:29:54 Date Recorded Body weight Oxygen saturation Oxygen saturation in Arterial blood by Pulse oximetry Body temperature Heart rate Respiratory rate Systolic And Diastolic Provider Name and Address Organization Details Last Updated DateTime 5 70863.5 1 g 95 % 95 % 98.3 [degF] 102 /min 18 /min 143/60 mm[Hg] Amy BEARDEN [facility] & [place] 5 10:01:58 Date Recorded Body height Body mass index (BMI) Body weight Body temperature Oxygen saturation Oxygen saturation in Arterial blood by Pulse oximetry Heart rate Systolic And Diastolic Provider Name and Address Organization Details Last Updated DateTime 4 157.48 cm 38 kg/m2 10643.1 4 g 97.1 [degF] 93 % 93 % 108 /min 136/67 mm[Hg] [facility] [place] 4 09:36:53 Date Recorded Body height Body mass index (BMI) Body weight Body temperature Oxygen saturation Oxygen saturation in Arterial blood by Pulse oximetry Heart rate Respiratory rate Systolic And Diastolic Provider Name and Address Organization Details Last Updated DateTime 4 157.48 cm 37.8 kg/m2 82393.1 8 g 97.2 [degF] 96 % 96 % 85 /min 18 /min 139/70 mm[Hg] Farhana BEARDEN [facility] & [place] 4 09:59:45 Date Recorded Body height Body mass index (BMI) Body weight Body temperature Oxygen saturation Oxygen saturation in Arterial blood by Pulse oximetry Heart rate Respiratory rate Systolic And Diastolic Provider Name and Address Organization Details Last Updated DateTime 5 157.48 cm 36.5 kg/m2 64801.3 2 g 97.4 [degF] 98 % 98 % 96 /min 20 /min 133/71 mm[Hg] Farhana BEARDEN [facility] & [place] 5 09:18:13 Social History Question Answer Notes LastModified by Organizat ion Details LastModified Time Tobacco Smoking Status Former Smoker Amy Chan null, [place] - [facility] & [place] 03/20/2023 10:32:44 What Is Your Level Of Caffeine Consumption? None [email or web address] Information not available 03/20/2023 When Did You Quit Smoking? 18+yearssinc elastcigaret te [email or web address] Information not available 03/20/2023 What Was The Date Of Your Most Recent Tobacco Screening? 06/03/2023 [email or web address] Information not available 06/03/2023 At What Age Did You Start Smoking Tobacco? 22 [email or web address] Information not available 03/20/2023 Has Tobacco Cessation Counseling Been Provided? No [email or web address] Information not available 03/20/2023 How Many Years Have You Smoked Tobacco? 23 [email or web address] Information not available 03/20/2023 Sex: Unknown Functional Status Question Answer Note LastModified by Organizat Ch[employer] Details LastModified Time Do you use any illicit or recreational drugs? No [email or web address] Information not available 03/20/2023 Do you or have you ever used any other forms of tobacco or nicotine? No [email or web address] Information not available 03/20/2023 What is your level of alcohol consumption? None [email or web address] Information not available 03/20/2023 Mental Status None recorded. Family History Relationship Description Onset Age of this Age Resolved Age Notes LastModified by Organization Details LastModified Time Father Carcinoma of prostate Not available 06/02 13:57:10 Mother Malignant neoplasm of female breast [email or web address] Not available 06/02 13:57:19 Sister Malignant neoplasm of female breast BC twice .... chemo since 2018, under [facility] [email or web address] Not available 06/03/2023 13:57:59 Sister Malignant neoplasm of thyroid gland [email or web address] Not available 06/02 13:58:23 Sister Primary malignant neoplasm of both ovaries [email or web address] Not available 13:58:50 Medical History No medical history recorded. Gynecological HistoryNo gynecological history recorded. Obstetrics History GPAL:G 0 P 0 0 0 0 Immunizations Vaccine Type Date Status Note Provider Nam e and Address Organization Details Recorded Time Influenza, high-dose, quadrivalent, PF 3 completed Amy short, [place] - [facility] [place] & [place] 04/12/2023 08:52:49 COVID-19, mRNA, LNP-S, PF, 100 mcg/0.5mL dose or 50 mcg/0.25mL dose 1 completed Amy Chan null, [place] - [facility] [place] & [place] 04/12/2023 08:52:49 COVID-19, mRNA, LNP-S, PF, 100 mcg/0.5mL dose or 50 mcg/0.25mL dose 1 completed Amy Chan null, [place] [facility] [place] 04/12/2023 08:52:49 COVID-19, mRNA, LNP-S, PF, 100 mcg/0.5mL dose or 50 mcg/0.25mL dose 1 completed Amy short, [place] - [facility] - [place] & [place] 04/12/2023 08:52:49 [email or web address] live 4 completed Not Available [facility] [facility] [place] 12/09/2024 09:03:33 zoster recombinant 4 completed Not Available [facility] 12/09/2024 09:03:33 Tdap 5 completed Not Available [facility] [place] 12/09/2024 09:03:33 RSV, recombinant, protein subunit RSVpreF, adjuvant reconstituted, 0.5 mL, PF 5 completed Not Available [facility] [place] 12/09/2024 09:03:33 Past Encounters Encounter ID Performer Location Encounter Start Date Encounter Closed Date Diagnosis/Indication Diagnosis SNOMED-CT Code Diagnosis ICD10 Code Diagnosis IMO Codes Diagnosis Note [id number] Enrique Lou MD [facility] [address] [place] [address] 03/20/2023 10:15:09 03/20/2023 11:40:57 Follicular lymphoma 770251557 C82.93 CT scan of the abdomen pelvis [...] rituximab maintenanc e depending on response. Anemia 349391137 D64.9 Labs during hospital stay in late February 2023 with findings of iron deficiency anemia. Iron infusions plan today. 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 Findings follicular lymphoma that is low grade (1/2). Flow cytometry positive for CD10. Cells positive for CD20 as well as CD19. Negative for CD 5 and negative for CD 38. Biopsy site was retroperit rivera lymph node. [id number] Enrique Lou MD [facility] [address] [facility] [address] [place] [address] 04/12/2023 08:44:32 04/12/2023 09:53:23 Follicular lymphoma 759107342 C82.93 CT scan of the abdomen pelvis [...] hopefully proceed with maintenanc e therapy. Anemia 001186051 D64.9 Labs during hospital stay in late February 2023 with findings of iron deficiency anemia. Iron infusions plan today. 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 Findings follicular lymphoma that is low grade (1/2). Flow cytometry positive for CD10. Cells positive for CD20 as well as CD19. Negative for CD 5 and negative for CD 38. Biopsy site was retroperit rivera lymph node. Antineopla stic chemotherapy regimen [id number] Z51.11 Week 1 of rituximab on April 12, 2023. Chemothera py education performed. B-cell lym phoma (clinical) [id number] C85.89 [id number] Enrique Lou MD [facility] [address] [place] [address] 04/19/2023 08:54:42 04/19/2023 09:34:24 Follicular lymphoma 581059617 C82.93 CT scan of the abdomen pelvis [...] elevated at 200. Will follow-up response. Anemia 779877885 D64.9 Labs during hospital stay in late February 2023 with findings of iron deficiency anemia. Iron infusions plan today. 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 Findings follicular lymphoma that is low grade (1/2). Flow cytometry positive for CD10. Cells positive for CD20 as well as CD19. Negative for CD 5 and negative for CD 38. Biopsy site was retroperit rivera lymph node. Antineopla stic chemotherapy regimen 937529208 Z51.11 Week 1 of rituximab on April 12, 2023. Chemothera py education performed. Week 2 of rituximab on April 19, 2023. Nausea 358479828 R11.0 As needed Zofran and Phenergan prescribed . Will follow-up B-cell lym phoma (clinical) 304362316 C85.89 [id number] Enrique Lou MD [facility] [address] [place] [address] 04/26/2023 09:05:09 04/26/2023 09:29:02 Follicular lymphoma [id number] C82.93 CT scan of the abdomen pelvis [...] blood count 4.7. Hemoglobin 13.4. Platelet count 468472. Absolute neutrophil count 6.8. Uric acid in the normal range 3.8. LDH 256. Patient returns on April 26, 2023 for week 3 of rituximab. Will continue with current therapy. Following dose 4, will arrange repeat imaging 4-6 weeks after week 4 and will assess for maintenanc e therapy. Anemia 389460382 D64.9 Labs during hospital stay in late February 2023 with findings of iron deficiency anemia. Iron infusions plan today. 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 Findings follicular lymphoma that is low grade (1/2). Flow cytometry positive for CD10. Cells positive for CD20 as well as CD19. Negative for CD 5 and negative for CD 38. Biopsy site was retroperit rivera lymph node. Antineopla stic chemotherapy regimen 270119158 Z51.11 Week 1 of rituximab on April 12, 2023. Chemothera py education performed. Week 2 of rituximab on April 19, 2023.Week 3 of rituximab on April 26, 2023. Nausea 570349347 R11.0 As needed Zofran and Phenergan prescribed . Will follow-up [id number] Wilian Olsen PA-C [facility] [address] [place] [address] 05/03/2023 09:00:04 05/03/2023 10:26:31 Follicular lymphoma 015287031 C82.93 CT scan of the abdomen pelvis [...] blood count 4.7. Hemoglobin 13.4. Platelet count 203113. Absolute neutrophil count 6.8. Uric acid in the normal range 3.8. LDH 256. Patient returns on May 03, 2023 for week 4 of rituximab. Will complete current therapy today. She had some diarrhea with nausea and vomiting this week. Discussed starting Imodium along with Zofran. Will arrange repeat imaging 4-6 weeks and will assess for maintenanc e therapy. Anemia 998414640 D64.9 Labs during hospital stay in late February 2023 with findings of iron deficiency anemia. Iron infusions plan today. 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 Findings follicular lymphoma that is low grade (1/2). Flow cytometry positive for CD10. Cells positive for CD20 as well as CD19. Negative for CD 5 and negative for CD 38. Biopsy site was retroperit rivera lymph node. Antineopla stic chemotherapy regimen [id number] Z51.11 Week 1 of rituximab on April 12, 2023. Chemothera py education performed. Week 2 of rituximab on April 19, 2023.Week 3 of rituximab on April 26, 2023.Week 4 of rituximab on May 03, 2023. Nausea 703525275 R11.0 As needed Zofran and Phenergan prescribed . Will follow-up B-cell lym phoma (clinical) 939611263 C82.89 [id number] Enrique Lou MD [facility] [address] [place] [address] 06/03/2023 13:38:35 06/03/2023 15:26:54 Follicular lymphoma 621909238 C82.93 CT scan of the abdomen pelvis [...] 4.7. Hemoglobin 13.6 hematocrit 41.2. Platelet count 180975. Patient completed 4 weeks of rituximab therapy. [...] in mid to late June 2023. Anemia 659990787 D64.9 Labs during hospital stay in late February 2023 with findings of iron deficiency anemia. Iron infusions plan today. 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 Findings follicular lymphoma that is low grade (1/2). Flow cytometry positive for CD10. Cells positive for CD20 as well as CD19. Negative for CD 5 and negative for CD 38. Biopsy site was retroperit rivera lymph node. Antineopla stic chemotherapy regimen 245999716 Z51.11 Week 1 of rituximab on April 12, 2023. Chemothera py education performed. Week 2 of rituximab on April 19, 2023.Week 3 of rituximab on April 26, 2023.Week 4 of rituximab on May 03, 2023. Nausea 260182777 R11.0 As needed Zofran and Phenergan prescribed . Will follow-up [id number] Enrique Lou MD [facility] [address] [place] [address] 07/24/2023 14:19:03 07/24/2023 15:05:00 Follicular lymphoma [id number] C82.93 CT scan of the abdomen pelvis [...] 4.7. Hemoglobin 13.6 hematocrit 41.2. Platelet count 717407. Patient completed 4 weeks of rituximab therapy. [...] potential maintenanc e rituximab. Will follow-up Anemia 359855104 D64.9 Labs during hospital stay in late February 2023 with findings of iron deficiency anemia. Iron infusions plan today. 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 Findings follicular lymphoma that is low grade (1/2). Flow cytometry positive for CD10. Cells positive for CD20 as well as CD19. Negative for CD 5 and negative for CD 38. Biopsy site was retroperit rivera lymph node. Antineopla stic chemotherapy regimen 040249892 Z51.11 Week 1 of rituximab on April 12, 2023. Chemothera py education performed. Week 2 of rituximab on April 19, 2023.Week 3 of rituximab on April 26, 2023.Week 4 of rituximab on May 03, 2023. Nausea 685581647 R11.0 As needed Zofran and Phenergan prescribed . Will follow-up Coronary arteriosclerosis 79596499 I25.10 Patient recently hospitaliz ed in June 2023 following STEMI. Patient had cardiac stents placed. Follows with Cardiology . Chronic hy poxemic respiratory failure 069386797 J96.11 Patient with low oxygen saturation of 85% upon clinic arrival. Oxygen saturation 85% at rest. Patient placed on oxygen supplement ation with improvemen t in oxygen saturation . During walking test patient desaturate d to 89% on room air. Improvemen t with oxygen supplement ation. [id number] Wilian Olsen PA-C [facility] [address] [place] [address] 09/04/2023 14:09:39 09/04/2023 15:21:56 Follicular lymphoma 533669647 C82.93 CT scan of the abdomen pelvis [...] 4.7. Hemoglobin 13.6 hematocrit 41.2. Platelet count 533723. Patient completed 4 weeks of rituximab therapy. [...] labs on day 1 of rituximab. Anemia 476553532 D64.9 Labs during hospital stay in late February 2023 with findings of iron deficiency anemia. Iron infusions plan today. 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 Findings follicular lymphoma that is low grade (1/2). Flow cytometry positive for CD10. Cells positive for CD20 as well as CD19. Negative for CD 5 and negative for CD 38. Biopsy site was retroperit rivera lymph node. Antineopla stic chemotherapy regimen 600813936 Z51.11 Week 1 of rituximab on April 12, 2023. Chemothera py education performed. Week 2 of rituximab on April 19, 2023.Week 3 of rituximab on April 26, 2023.Week 4 of rituximab on May 03, 2023. Nausea 260527655 R11.0 As needed Zofran and Phenergan prescribed . Will follow-up Coronary arteriosclerosis 33162365 I25.10 Patient recently hospitaliz ed in June 2023 following STEMI. Patient had cardiac stents placed. Follows with Cardiology . Chronic hy poxemic respiratory failure 416922316 J96.11 Patient with low oxygen saturation of 85% upon clinic arrival. Oxygen saturation 85% at rest. Patient placed on oxygen supplement ation with improvemen t in oxygen saturation . During walking test patient desaturate d to 89% on room air. Improvemen t with oxygen supplement ation. [id number] Wilian Olsen PA-C [facility] [address] [facility] [address] [place] [address] 09/11/2023 09:30:15 09/11/2023 09:57:11 Follicular lymphoma 496473317 C82.93 CT scan of the abdomen pelvis [...] 4.7. Hemoglobin 13.6 hematocrit 41.2. Platelet count 159431. Patient completed 4 weeks of rituximab therapy. [...] maintenanc e today. Will follow-up labs. Anemia 875242958 D64.9 Labs during hospital stay in late February 2023 with findings of iron deficiency anemia. Iron infusions plan today. 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 Findings follicular lymphoma that is low grade (1/2). Flow cytometry positive for CD10. Cells positive for CD20 as well as CD19. Negative for CD 5 and negative for CD 38. Biopsy site was retroperit rivera lymph node. Antineopla stic chemotherapy regimen 419160706 Z51.11 Week 1 of rituximab on April 12, 2023. Chemothera py education performed. Week 2 of rituximab on April 19, 2023.Week 3 of rituximab on April 26, 2023.Week 4 of rituximab on May 03, 2023. Cycle 1 of rituximab maintenanc e on September 11, 2023. Nausea 962296737 R11.0 As needed Zofran and Phenergan prescribed . Will follow-up Coronary arteriosclerosis 92235507 I25.10 Patient recently hospitaliz ed in June 2023 following STEMI. Patient had cardiac stents placed. Follows with Cardiology . Chronic hy poxemic respiratory failure 264633617 J96.11 Patient with low oxygen saturation of 85% upon clinic arrival. Oxygen saturation 85% at rest. Patient placed on oxygen supplement ation with improvemen t in oxygen saturation . During walking test patient desaturate d to 89% on room air. Improvemen t with oxygen supplement ation. [id number] Wilian Olsen PA-C [facility] [address] [place] [address] 12/03/2023 09:47:40 12/03/2023 10:16:58 Follicular lymphoma 034288645 C82.93 CT scan of the abdomen pelvis [...] 4.7. Hemoglobin 13.6 hematocrit 41.2. Platelet count 788301. Patient completed 4 weeks of rituximab therapy. [...] maintenanc e today. Will follow-up labs. Anemia 924867204 D64.9 Labs during hospital stay in late February 2023 with findings of iron deficiency anemia. Iron infusions plan today. 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 Findings follicular lymphoma that is low grade (1/2). Flow cytometry positive for CD10. Cells positive for CD20 as well as CD19. Negative for CD 5 and negative for CD 38. Biopsy site was retroperit rivera lymph node. Antineopla stic chemotherapy regimen 282849544 Z51.11 Week 1 of rituximab on April 12, 2023. Chemothera py education performed. Week 2 of rituximab on April 19, 2023.Week 3 of rituximab on April 26, 2023.Week 4 of rituximab on May 03, 2023. Cycle 1 of rituximab maintenanc e on September 11, 2023.Cycle 2 of rituximab maintenanc e on December 03, 2023. Nausea 400320032 R11.0 As needed Zofran and Phenergan prescribed . Will follow-up Coronary arteriosclerosis 04111778 I25.10 Patient recently hospitaliz ed in June 2023 following STEMI. Patient had cardiac stents placed. Follows with Cardiology . Chronic hy poxemic respiratory failure 758405207 J96.11 Patient with low oxygen saturation of 85% upon clinic arrival. Oxygen saturation 85% at rest. Patient placed on oxygen supplement ation with improvemen t in oxygen saturation . During walking test patient desaturate d to 89% on room air. Improvemen t with oxygen supplement ation. Localized eruption of skin 262270524 R21 Patient returns for follow-up on December [...] refer to Dermatolog y further evaluation . [id number] Wilian Olsen PA-C [facility] [address] [place] [address] 06/02/2024 09:27:05 06/02/2024 09:44:25 Follicular lymphoma 073229255 C82.93 CT scan of the abdomen pelvis [...] 4.7. Hemoglobin 13.6 hematocrit 41.2. Platelet count 598409. Patient completed 4 weeks of rituximab therapy. [...] schedule scans. Follicular low grade B-cell lymphoma 670558212 C82.80 Biopsy performed of lymph node mass on March 14, 2023. Findings follicular lymphoma that is low grade (1/2). Flow cytometry positive for CD10. Cells positive for CD20 as well as CD19. Negative for CD 5 and negative for CD 38. Biopsy site was retroperit rivera lymph node. Antineopla stic chemotherapy regimen 895051368 Z51.11 Week 1 of rituximab on April [...] py today to monitor for toxicity. Nausea 588889664 R11.0 As needed Zofran and Phenergan prescribed . Will follow-up Coronary arteriosclerosis 82019708 I25.10 Patient had a STEMI and had cardiac stents placed June 2023. Continues to follow with Cardiology . History of anemia 486197 002 Z86.2 [id number] Labs during hospital stay in late February 2023 with findings of iron deficiency anemia. Patient received infusional iron with improvemen t. Labs on March 03, 2024 with hemoglobin normal at 13.5. Will follow up labs Acute cough [id number] R05.0 [id number] Patient returns for follow-up on June 02, 2024. She is feeling better. She states she had pneumonia and congestive heart failure about 2 weeks ago. She has completed antibiotic s and is taking Lasix with improvemen t. Cough has improved She is still coughing up some mucus. Discussed taking Mucinex needed. No fever or chills. Insomnia 189207538 G47.0 0 [id number] Patient returns for follow-up on June 02, 2024. Her sister March 2024. She is tearful and crying during her visit today but she is grieving appropriat brittanie. Offered referral to a therapist but patient declined at this time. She has had trouble sleeping. Discussed trying melatonin. Grief finding 458252142 F43.21 [id number] Patient returns for follow-up on June 02, 2024. Her sister March 2024. She is tearful and crying during her visit today but she is grieving appropriat brittanie. Offered referral to a therapist but patient declined at this time. Discussed reaching out to other friends and family for comfort. [id number] Enrique Lou MD [facility] [address] [place] [address] 09/02/2024 09:29:42 09/02/2024 10:11:58 Antineoplastic chemotherapy regimen 838709244 Z51.11 Week 1 of rituximab on April [...] to monitor for toxicity. Follicular lymphoma [address] scan of the abdomen pelvis [...] 4.7. Hemoglobin 13.6 hematocrit 41.2. Platelet count 765993. Patient completed 4 weeks of rituximab therapy. [...] labs today. Follicular low grade B-cell lymphoma 527982049 C82.80 Biopsy performed of lymph node mass on March 14, 2023. Findings follicular lymphoma that is low grade (1/2). Flow cytometry positive for CD10. Cells positive for CD20 as well as CD19. Negative for CD 5 and negative for CD 38. Biopsy site was retroperit rivera lymph node. Nausea 498397332 R11.0 As needed Zofran and Phenergan prescribed . Will follow-up Coronary arteriosclerosis 23517237 I25.10 Patient had a STEMI and had cardiac stents placed June 2023. Continues to follow with Cardiology . History of anemia 308586 002 Z86.2 290512 Labs during hospital stay in late February 2023 with findings of iron deficiency anemia. Patient received infusional iron with improvemen t. Labs on March 03, 2024 with hemoglobin normal at 13.5. Will follow up labs [id number] Wilian Olsen PA-C [facility] [address] [place] [address] 12/09/2024 08:57:50 12/09/2024 09:42:05 Antineoplastic chemotherapy regimen 996427537 Z51.11 Week 1 of rituximab on April [...] to monitor for toxicity. Follicular lymphoma [address] scan of the abdomen pelvis [...] 4.7. Hemoglobin 13.6 hematocrit 41.2. Platelet count 981643. Patient completed 4 weeks of rituximab therapy. [...] y. Imaging of the abdomen with retroperit rievra lymph node size continued to decrease. Less [...] labs today. 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 Findings follicular lymphoma that is low grade (1/2). Flow cytometry positive for CD10. Cells positive for CD20 as well as CD19. Negative for CD 5 and negative for CD 38. Biopsy site was retroperit rivera lymph node. Nausea 366150290 R11.0 Patient has needed Zofran and Phenergan prescribed . Coronary arteriosclerosis 10793346 I25.10 Patient had a STEMI and had cardiac stents placed June 2023. She continues to follow up with Cardiology . History of anemia 258000 002 Z86.2 [id number] Labs during hospital stay in late February [...] 12/08/2024 2 [employer] (MEDICARE SUPPLEMENT) Tay Duglas [id number] Tay Duglas 12/01/2024 1 MED[place] ([place]ICARE[place] Tay L [place] [id number] Tay [place] Notes Date Note Type Note Provider Name [...] blood count 4.7. Hemoglobin 13.4. Platelet count 848589. Absolute neutrophil count 6.8. Uric acid in [...] 4.7. Hemoglobin 13.6 hematocrit 41.2. Platelet count 010407. Patient completed 4 weeks of rituximab therapy. [...] today. Will follow-up labs. Wilian Olsen PA-C [address], [place], [address], [facility] [place] [facility] [place] 09/11/2023 09:55:42 12/03/2023 text/html 77 yo F [...] blood count 4.7. Hemoglobin 13.4. Platelet count 861857. Absolute neutrophil count 6.8. Uric acid in [...] 4.7. Hemoglobin 13.6 hematocrit 41.2. Platelet count 578464. Patient completed 4 weeks of rituximab therapy. [...] today. Will follow-up labs. Wilian Olsen PA-C [address] , [place], [address], [facility] [place] 12/03/2023 10:22:12 06/02/2024 text/html 78 yo F [...] blood count 4.7. Hemoglobin 13.4. Platelet count 196368. Absolute neutrophil count 6.8. Uric acid in [...] 4.7. Hemoglobin 13.6 hematocrit 41.2. Platelet count 645501. Patient completed 4 weeks of rituximab therapy. [...] imaging. Will schedule scans. Wilian Olsen PA-C [address] [facility], [place], [address], [place] [facility] [place] 06/02/2024 10:03:19 09/02/2024 text/html 78 yo F [...] blood count 4.7. Hemoglobin 13.4. Platelet count 790838. Absolute neutrophil count 6.8. Uric acid in [...] 4.7. Hemoglobin 13.6 hematocrit 41.2. Platelet count 757517. Patient completed 4 weeks of rituximab therapy. [...] Will follow-up labs today. Enrique Lou MD [address] [facility], [place], [address], [place] [facility] [place] 09/02/2024 09:56:56 12/09/2024 text/html 79 yo F [...] blood count 4.7. Hemoglobin 13.4. Platelet count 622732. Absolute neutrophil count 6.8. Uric acid in [...] 4.7. Hemoglobin 13.6 hematocrit 41.2. Platelet count 683932. Patient completed 4 weeks of rituximab therapy. [...] Will follow-up labs today. Wilian Olsen PA-C [address], [place], [address], [place] [facility] [place] 12/09/2024 09:26:40 OBGyn Episode No OBEpisode recorded.
--- OUTSIDE RECORDS SUMMARY | 2025-01-07 15:24 | XMS_ITS | Encounter Summary ---
Author Organization [employer] ([place], [place], [place], [place]) Address [address] [place] [address] Care Team Providers [employer] Name Role Phone Unavailable Primary Care Provider Unavailabl e Encounter Details Date Type Department Care Team (Late st Contact Info) Description 05/13/2019 Transcribed Document [facility] Family Medicine [address] [place] [address] ProviderLexi MD [address] [place] [address] Social History Tobacco Use Types [...] - Historical ProviderMD - 05/13/2019 5:00 AM MOLDER BENCH Chart Check - Review Order Profile Entered On: 05/13/2019 4:27 EST Performed On: 05/13/2019 5:00 EST by BORIS OVALLE, Barrel Brander-Nursing Chart Check Powerplans Initiated/Discontinued as Appropriate : Yes All Active Orders Reviewed : Yes BORIS OVALLE, Barrel Brander-Nursing - 05/13/2019 4:27 EST Electronically signed by Angelika [facility] Conversion Domestic Violence Counselor Cerner at 07/02/2022 4:58 PM CDT documented in this encounter Plan of Treatment Not on file documented as of this encounter Visit Diagnoses Not on filedocumented in this encounter
--- OUTSIDE RECORDS SUMMARY | 2025-01-07 15:24 | XMS_ITS | Encounter Summary ---
Author Organization [employer] ([place], [place], [place], [place]) Address [address] [place] [address] Care Team Providers Care Qa Auditor Name Role Phone Unavailable Primary Care Provider Unavailabl e Encounter Details Date Type Department Care Team (Late st Contact Info) Description 05/13/2019 Transcribed Document [facility] [place] Family Medicine [address] [place] [address] ProviderLexi MD [address] [place] [address] Social History Tobacco Use Types [...] - Historical ProviderMD - 05/13/2019 1:00 AM SENIOR ADMINISTRATOR SUPPORT Pain Assessment Entered On: 05/13/2019 4:26 EST Performed On: 05/13/2019 2:28 EST by BORIS OVALLE, Asbestos Cement Sheet Supervisor-Nursing Intervention Information: acetaminophen Performed by BORIS OVALLE, Asbestos Cement Sheet Supervisor-Nursing on 05/13/2019 01:28:00 EST acetaminophen,1000mg Oral Pain Assessment Pain Assessment : Follow-up assessment Pain Scale Goal : 4 Pain Scale Used : FACES Pain Intervention, Drug : Medicated Pain Improved by Intervention : Yes BORIS OVALLE, Asbestos Cement Sheet Supervisor-Nursing - 05/13/2019 4:26 EST Pain Scale Intensity : 2 BORIS OVALLE, Asbestos Cement Sheet Supervisor-Nursing - 05/13/2019 4:26 EST Image 4 - Images currently included in the form version of this document have not been included in the text rendition version of the form. documented in this encounter Plan of Treatment Not on file documented as of this encounter Visit Diagnoses Not on filedocumented in this encounter
--- OUTSIDE RECORDS SUMMARY | 2025-01-07 15:24 | XMS_ITS | Encounter Summary ---
Author Organization [employer] ([place], [place], [place], [place]) Address [address] [place] [address] Care Team Providers Care Tree Deadener Name Role Phone Unavailable Primary Care Provider Unavailabl e Encounter Details Date Type Department Care Team (Late st Contact Info) Description 05/13/2019 Transcribed Document [facility] [place] Family Medicine [address] [place] [address] ProviderLexi MD [address] [place] [address] Social History Tobacco Use Types [...] - Historical ProviderMD - 05/13/2019 7:01 AM ADULT NEUROLOGIST Patient: TAY FONSECA Age: 73 Years Sex: [...] mg= 2 Tab, Oral, Q6HInt Vitamin D2, 17730 Units= 1 Cap, Oral, Saturday Zofran, 4 [...] 05/12/2019 08:44 EST Electronically signed by Angelika, [facility] Conversion Manager Hematology Cerner at 07/02/2022 4:53 PM CDT documented in this encounter Plan of Treatment Not on file documented as of this encounter Visit Diagnoses Not on filedocumented in this encounter
--- OUTSIDE RECORDS SUMMARY | 2025-01-07 15:24 | XMS_ITS | Encounter Summary ---
Author Organization [employer] ([place], [place], [place], [place]) Address [address] [place] [address] Care Team Providers Care Orthotic Aide Name Role Phone Unavailable Primary Care Provider Unavailabl e Encounter Details Date Type Department Care Team (Late st Contact Info) Description 05/12/2019 Transcribed Document [facility] [place] Family Medicine [address] [place] [address] ProviderLexi MD [address] [place] [address] Social History Tobacco Use Types [...] - Historical ProviderMD - 05/12/2019 2:00 PM COLLAR SEPARATOR Pain Assessment Entered On: 05/12/2019 16:50 EST [...]
--- OUTSIDE RECORDS SUMMARY | 2025-01-07 15:24 | XMS_ITS | Encounter Summary ---
Author Organization [employer] ([place], [place], [place], [place]) Address [address] [place] [address] Care Team Providers Care Pizza Driver Name Role Phone Unavailable Primary Care Provider Unavailabl e Encounter Details Date Type Department Care Team (Late st Contact Info) Description 05/13/2019 Transcribed Document [facility] [place] [address] [place] [address] ProviderLexi MD [address] [place] [address] Social History Tobacco Use Types [...] - Historical ProviderMD - 05/13/2019 2:00 AM CARPENTER MATE Medical Secretary Details Entered On: 05/13/2019 4:26 EST Performed On: 05/13/2019 2:00 EST by BORIS OVALLE, Osteopathy Doctor-Nursing Order Details Transport Mode Order Detail : Wheelchair Isolation Precautions Order Detail : Standard Precautions Order Detail : N/A IV Order Detail : 1 Oxygen Order Detail : 0 Nurse Collect Order Detail : 0 Lift/Transfer : Minimal Central Line Order Detail : No Room Service : Appropriate Arterial Line : No BORIS OVALLE, Osteopathy Doctor-Nursing - 05/13/2019 4:25 EST documented in this encounter Plan of Treatment Not on file documented as of this encounter Visit Diagnoses Not on filedocumented in this encounter
--- OUTSIDE RECORDS SUMMARY | 2025-01-07 15:24 | XMS_ITS | Data Portability ---
Author Organization [place] [facility] [employer] Address [address] [place] [address] Care Team Providers Care Optical Glass Etcher Name Role Phone LILIAN MARINA Primary Care [...] Remote Patient Monitoring program. If you agree, [employer] will provide devices and services that will facilitate the provision of RPM. Through devices provided by [employer] , I will be able to remotely [...] and receive Remote Patient Monitoring services from ne, in conjunction with [employer]. As a condition of receiving Remote Patient Monitoring services, I will provide your home telephone number, cell number and email address to [employer] . Terms of Use Information The Terms of Use for the Remote Patient Monitoring services will be included in your welcome box. Please review this document carefully. By using [employer] , you are agreeing to be bound by the Terms of Use document that will be included in your welcome box. If you decide not to receive Remote Patient Monitoring services at any time, you can contact ne or Andrea at [phone]. melissa Not available 01/23/2023 16:37:38 Reason for Referral Referring Physician: Myriam Gil, Family Medicine, Encounter Date: 01/23/2023 Referring Physician: Myriam Gil [facility] Medicine, Encounter Date: 01/23/2023 Problems Name Problem SNOMED Code Status Onset Date Resolution Date Notes Provider Name and Address Organization Details Recorded Time Essential hypertensio n 92787926 Active 2022 Myriam cunha, TRUCK CRANE OPERATOR [address] , [place], [address], [facility] 16:38:56 Hyperglycem ia due to type 2 diabetes mellitus 5844225082076 09 Active 2022 Myriam cunha, TRUCK CRANE OPERATOR [address] , [place], [address], [facility] [employer] [facility] 16:39:10 Problem Notes None recorded. Procedures Surgical History Date Name Laterality Status Provider Name and Address Organization Details Recorded Time [facility]ste[facility] 16:10:[address] [facility] 01/23/2023 16:10:39 procedure on ankle completed [facility] 01/23/2023 16:10:50 procedure on wrist completed [facility] 01/23/2023 16:11:00 Cataract Surgery completed [facility] 01/23/2023 16:11:20 Imaging Results None recorded. Procedure Notes None recorded. Medical Equipment None Reported. Allergies Allergen ID Allergen Name Allergen Category Reaction Reaction Severity Criticality Documentation Date Start Date Code Code System Note Provider Name and Address Organization Details Recorded Time Product containin g penicilli n (product) medicatio n Not available Not available Not available 01/23/2023 31116 8001 SNOMED [facility] 16:22:37 Medications Name Sig Start Date Stop [...] Updated DateTime 01/23/2023 157.48 cm 40.2 kg/m2 76656.32 g Stacey Elizondocker [facility] 01/23/2023 16:08:56 Social History Question Answer Notes LastModified by Organizat ion Details LastModified Time Tobacco Smoking Status Former Smoker QUIT IN 1999 Stacey Brenden [facility] 01/23/2023 16:10:05 What Is Your Level Of Caffeine Consumption? Heavy 1 CUP OF COFFEE DAILY AND 2 DIET SODAS (16OZ) DAILY [email or web address] Information not available 01/23/2023 Sex: Unknown Functional Status Question Answer Note LastModified by Organization D etails LastModified Time What is your level of alcohol consumption? None [email or web address] Information not available 01/23/2023 Mental Status None [...] ICD10 Code Diagnosis IMO Codes Diagnosis Note [id number] Myriam Fonseca er, TRUCK CRANE OPERATOR PS_Provid er Schedule [address] [place] [address] 01/23/2023 15:58:55 01/23/2023 16:44:18 Type 2 diabetes mellitus 73646528 E11.65 Essential hypertension 86273715 I10 Health Concerns Section Related Observation LastModified by Organization Detai ls LastModified Time None Recorded Concern Status LastModified by Organization Details LastModified Time None Recorded Advance Directives Directive None Recorded Payers Insurance Date Sequence Insurance Name Policy Number Policy Vieira Covered Member ID Vieira Member ID Guarantor Name 04/16/2023 1 [place] Dominga L Duglas [id number] Dominga Duglas 04/16/2023 1 [facility] (MEDICARE SUPPLEMENT) Dominga Duglas [id number] Dominga [place] 04/16/2023 [place] Dominga L Duglas [id number] Dominga Duglas 09/13/2023 2 [employer] (MEDICARE SUPPLEMENT) Dominga [place] [id number] Dominga Duglas Notes Date Note Type Note Provider Name and Address Organization Details Recorded Time 3 text/html Hypertension IM/FMReported by Patient DiabetesReported by PatientComplications and Co-morbiditiesFor acute complications, patient reportsadmitted for other direct diabetic complication: no. For chronic complications, patient reportsdiabetic neuropathy: no,hypertension: yes,hyperlipidemia: no, andlast ophthalmic examination:2022. For comorbidities, patient reportsstroke: no.ROS as noted in the HPI Provider [place], [place] Location: HomeSession Start Time: 4:31 pmSession End Time: 4:46 pmPatient Gives Verbal Consent for this Visit: YesCC: HTN and DMOngoing Issues: Myriam Jorgensen NP [address], [place], [address], [facility] 01/23/2023 16:44:11 OBGyn Episode No OBEpisode recorded.
--- OUTSIDE RECORDS SUMMARY | 2025-01-07 15:24 | XMS_ITS | Encounter Summary ---
Author Organization [employer] ([place], [place], [place], [place]) Address [address] [place] [address] Care Team Providers Care Objects Conservator Name Role Phone Unavailable Primary Care Provider Unavailabl e Encounter Details Date Type Department Care Team (Late st Contact Info) Description 05/12/2019 Transcribed Document [facility] [place] Family Medicine [address] [place] [address] ProviderLexi MD [address] [place] [address] Social History Tobacco Use Types [...] - Historical ProviderMD - 05/12/2019 12:53 PM GIS MANAGER Evaluation, Physical Therapy Entered On: 05/12/2019 [...] 05/12/2019 12:54 PT Treatment Instructions Ordered By: RSOIO SEN MD-ORPatria 05/12/2019 14:34 Consult to Physical [...] WILIAN KENNEDY, PT - 05/12/2019 14:46 EST Director Dietetics Department Goals Other PT LTG Grid Goal #1 [...] services for ATHA protocol + to maxamize safety/[place] with functional mobility prior to discharge. Plan [...] Needs, OT/PT Anticipated Discharge to : Unit, [facility]ci Anticipated Home Equipment : Walker Anticipated D/C Provider Notified : vp celebrity services/case management Recommend Continued Therapy at Discharge : [...]
--- OUTSIDE RECORDS SUMMARY | 2025-01-07 15:24 | XMS_ITS | Encounter Summary ---
Author Organization [employer] ([place], [place], [place], [place]) Address [address] [place] [address] Care Team Providers Care Rv Body Mechanic Name Role Phone Unavailable Primary Care Provider Unavailabl e Encounter Details Date Type Department Care Team (Late st Contact Info) Description 05/12/2019 Transcribed Document [facility] [place] Family Medicine [address] [place] [address] ProviderLexi MD [address] [place] [address] Social History Tobacco Use Types [...] - Historical ProviderMD - 05/12/2019 5:06 PM ACADEMIC AFFAIRS VICE PRESIDENT Initial Discharge Planning Entered On: 05/12/2019 17:08 EST Performed On: 05/12/2019 17:06 EST by SANDRA DEL ANGEL Care Management-Dynamicist Initial Assessment I Previously Documented Living Environment : No qualifying data available. Living Situation : Home Patient Lives With : Alone Emergency Contact #1 : Roxy Emergency Contact #1 Emergency Contact #1 Relationship : sister Emergency Contact #2 : . Emergency Contact #2 Phone Number : . Emergency Contact #2 Relationship : . SANDRA DEL ANGEL, Care Management-Dynamicist - 05/12/2019 17:06 EST Narrative Note Narrative Note : Pt stated to Navigator, PASS staff, and myself that she must go to rehab at [place]. she lives alone, has stairs and no [...] review and advise. SANDRA DEL ANGEL, Care Management-Dynamicist - 05/12/2019 17:06 EST Electronically signed by Angelika [facility] Conversion Equipment Specialist Cerner at 07/02/2022 5:10 PM CDT documented in this encounter Plan of Treatment Not on file documented as of this encounter Visit Diagnoses Not on filedocumented in this encounter
--- OUTSIDE RECORDS SUMMARY | 2025-01-07 15:24 | XMS_ITS | Encounter Summary ---
Author Organization [employer] ([place], [place], [place], [place]) Address [address] [place] [address] Care Team Providers Care Valuer Name Role Phone Unavailable Primary Care Provider Unavailabl e Encounter Details Date Type Department Care Team (Late st Contact Info) Description 05/12/2019 Transcribed Document [facility] [place] Family Medicine [address] [place] [address] ProviderLexi MD [address] [place] [address] Social History Tobacco Use Types [...] - Historical ProviderMD - 05/12/2019 1:00 PM PRINTED CIRCUIT BOARDS CONTACT PRINTER Pain Assessment Entered On: 05/12/2019 16:50 EST [...]
--- OUTSIDE RECORDS SUMMARY | 2025-01-07 15:24 | XMS_ITS | Encounter Summary ---
Author Organization [employer] ([place], [place], [place], [place]) Address [address] [place] [address] Care Team Providers Care Chief Electrician Name Role Phone Unavailable Primary Care Provider Unavailabl e Encounter Details Date Type Department Care Team (Late st Contact Info) Description 05/13/2019 Transcribed Document [facility] [place] Family Medicine [address] [place] [address] ProviderLexi MD [address] [place] [address] Social History Tobacco Use Types [...] - Historical ProviderMD - 05/13/2019 12:01 PM MAKE UP ARRANGER Final Discharge Planning Entered On: 05/13/2019 12:01 EST Performed On: 05/13/2019 12:01 EST by SANDRA DEL ANGEL Care Management-Furniture Servicer Final Discharge Planning Discharge Arrangements : Patient [...] with Medicare Certification-03 SANDRA DEL ANGEL, Care Management-Furniture Servicer - 05/13/2019 12:01 EST Final Narrative Note Final Narrative Note : anticipate d/c to [facility] on Saturday by family SANDRA DEL ANGEL Care Management-Furniture Servicer - 05/13/2019 12:01 EST documented in this encounter Plan of Treatment Not on file documented as of this encounter Visit Diagnoses Not on filedocumented in this encounter
--- OUTSIDE RECORDS SUMMARY | 2025-01-07 15:24 | XMS_ITS | Encounter Summary ---
Author Organization [employer] ([place], [place], [place], [place]) Address [address] [place] [address] Care Team Providers Care Casserole Preparer Name Role Phone Unavailable Primary Care Provider Unavailabl e Encounter Details Date Type Department Care Team (Late st Contact Info) Description 05/13/2019 Transcribed Document [facility] [place] Family Medicine [address] [place] [address] ProviderLexi MD [address] [place] [address] Social History Tobacco Use Types [...] - Historical ProviderMD - 05/13/2019 2:15 PM CLUB FORMER Spiritual Care Assessment Entered On: 05/13/2019 21:55 EST Performed On: 05/13/2019 14:15 EST by Jose Miguel Downey Chaplain-Non Cert General Information Referred by : Rn Observation follow-up Ministry Provided to : Patient Sikhism Preference : Mu-Ism Jose Miguel Downey Chaplain-Non Cert - 05/13/2019 21:54 EST Spiritual Assessment Spiritual Assessment Comment/Summary Points : Brief visit with patient as she was not feeling well at this time, no family present. Spirital Assessment Comment/Summary Report : SPIRITUAL ASSESSMENT COMMENT/SUMMARY No qualifying data available. Jose Miguel Downey Chaplain-Non Cert - 05/13/2019 21:54 EST Electronically signed by Angelika [facility] Conversion Train Station Agent Cerner at 07/02/2022 4:53 PM CDT documented in this encounter Plan of Treatment Not on file documented as of this encounter Visit Diagnoses Not on filedocumented in this encounter
--- OUTSIDE RECORDS SUMMARY | 2025-01-07 15:24 | XMS_ITS | Encounter Summary ---
Author Organization [employer] ([place], [place], [place], [place]) Address [address] [place] [address] Care Team Providers Care Marble Polisher Name Role Phone Unavailable Primary Care Provider Unavailabl e Encounter Details Date Type Department Care Team (Late st Contact Info) Description 05/13/2019 Transcribed Document [facility] [place] [address] [place] [address] ProviderLexi MD [address] [place] [address] Social History Tobacco Use Types [...] - Historical ProviderMD - 05/13/2019 7:00 PM ENAMEL BUFFER Pain Assessment Entered On: 05/14/2019 1:34 EST Performed On: 05/13/2019 23:08 EST by BORIS OVALLE, Piercer-Nursing Intervention Information: acetaminophen Performed by BORIS OVALLE, Piercer-Nursing on 05/13/2019 22:08:00 EST acetaminophen,1000mg Oral Pain Assessment Pain Assessment : Follow-up assessment Pain Scale Goal : 4 Pain Scale Used : FACES Pain Intervention, Drug : Medicated Pain Improved by Intervention : Yes BORIS OVALLE, Piercer-Nursing - 05/14/2019 1:33 EST Pain Scale Intensity : 3 BORIS OVALLE, Piercer-Nursing - 05/14/2019 1:33 EST Image 4 - Images currently included in the form version of this document have not been included in the text rendition version of the form. documented in this encounter Plan of Treatment Not on file documented as of this encounter Visit Diagnoses Not on filedocumented in this encounter
--- OUTSIDE RECORDS SUMMARY | 2025-01-07 15:24 | XMS_ITS | Encounter Summary ---
Author Organization [employer] ([place], [place], [place], [place]) Address [address] [place] [address] Care Team Providers Care It Senior Software Engineer Java Name Role Phone Unavailable Primary Care Provider Unavailabl e Encounter Details Date Type Department Care Team (Late st Contact Info) Description 05/13/2019 Transcribed Document [facility] Radiology [address] [place] [address] Alba River MD [address] [place] [address] Social History Tobacco Use Types Packs/Day Years Used Date Smoking Tobacco: Never Assessed Comments Unknown Sex and Gender Information Value Date Recorded Sex Assigned at Female 09/14/2021 4:50 PM CDT Legal Sex Female 6:54 PM CDT Gender Identity Female 09/14/2021 4:50 PM CDT Sexual Orientation Not on file documented as of this encounter Miscellaneous Notes * Cerner Conversion Note - lAba River MD - 05/13/2019 11:00 AM EST Patient: TAY FONSECA Age: 73 Years Sex: Female : 1945 Subjective Patient reports no chest pain Tolerated her diet Madras a little weak this am No nausea [...] mg= 2 Tab, Oral, Q6HInt Vitamin D2, 72138 Units= 1 Cap, Oral, Saturday Zofran, 4 [...]
--- OUTSIDE RECORDS SUMMARY | 2025-01-07 15:24 | XMS_ITS | Encounter Summary ---
Author Organization [employer] ([place], [place], [place], [place]) Address [address] [place] [address] Care Team Providers Care Bell Spinner Name Role Phone Unavailable Primary Care Provider Unavailabl e Encounter Details Date Type Department Care Team (Late st Contact Info) Description 05/13/2019 Transcribed Document [facility] [place] [address] [place] [address] ProviderLexi MD [address] [place] [address] Social History Tobacco Use [...] - Historical ProviderMD - 05/13/2019 8:00 PM SALES COMPENSATION ANALYST Pain Assessment Entered On: 05/14/2019 1:34 EST Performed On: 05/13/2019 23:08 EST by BORIS OVALLE, Pm Head Cook-Nursing Intervention Information: traMADol Performed by BORIS OVALLE, Pm Head Cook-Nursing on 05/13/2019 22:08:00 EST traMADol,50mg Oral Pain Assessment Pain Assessment : Follow-up assessment Pain Scale Goal : 4 Pain Scale Used : FACES Pain Intervention, Drug : Medicated Pain Improved by Intervention : Yes BORIS OVALLE, Pm Head Cook-Nursing - 05/14/2019 1:34 EST Pain Scale Intensity : 2 BORIS OVALLE Pm Head Cook-Nursing - 05/14/2019 1:34 EST Image 4 - Images currently included in the form version of this document have not been included in the text rendition version of the form. documented in this encounter Plan of Treatment Not on file documented as of this encounter Visit Diagnoses Not on filedocumented in this encounter
--- OUTSIDE RECORDS SUMMARY | 2025-01-07 15:24 | XMS_ITS | Encounter Summary ---
Author Organization [employer] ([place], [place], [place], [place]) Address [address] [place] [address] Care Team Providers Care Paper Counter Name Role Phone Unavailable Primary Care Provider Unavailabl e Encounter Details Date Type Department Care Team (Late st Contact Info) Description 05/13/2019 Transcribed Document [facility] [place] Family Medicine [address] [place] [address] ProviderLexi MD [address] [place] [...] - Historical ProviderMD - 05/13/2019 7:00 AM PEDIATRIC SPEECH THERAPIST Pain Assessment Entered On: 05/13/2019 7:52 EST [...] form. Electronically signed by Meghan Carney Con[facility] Campus Recruiting Coordinator Raghav at 07/02/2022 4:49 PM CDT documented in this encounter Plan of Treatment Not on file documented as of this encounter Visit Diagnoses Not on filedocumented in this encounter
--- OUTSIDE RECORDS SUMMARY | 2025-01-07 15:24 | XMS_ITS | Encounter Summary ---
Author Organization [employer] ([place], [place], [place], [place]) Address [address] [place] [address] Care Team Providers Care Normalizer Name Role Phone Unavailable Primary Care Provider Unavailabl e Encounter Details Date Type Department Care Team (Late st Contact Info) Description 05/13/2019 Transcribed Document [facility] [place] [address] [place] [address] ProviderLexi MD [address] [place] [address] Social History Tobacco Use Types [...] - Historical ProviderMD - 05/13/2019 2:00 PM SOLE PAINTER Pain Assessment Entered On: 05/13/2019 13:11 EST [...] Electronically signed by Meghan Carney Conversion Senior Mobile Application Developer Cerner at 07/02/2022 4:51 PM CDT documented in this encounter Plan of Treatment Not on file documented as of this encounter Visit Diagnoses Not on filedocumented in this encounter
--- OUTSIDE RECORDS SUMMARY | 2025-01-07 15:24 | XMS_ITS | Encounter Summary ---
Author Organization [employer] ([place], [place], [place], [place]) Address [address] [place] [address] Care Team Providers Care Hardware Engineer Name Role Phone Unavailable Primary Care Provider Unavailabl e Encounter Details Date Type Department Care Team (Late st Contact Info) Description 05/13/2019 Transcribed Document [facility] [place] Family Medicine [address] [place] [address] ProviderLexi MD [address] [place] [address] Social History Tobacco Use [...] - Historical ProviderMD - 05/13/2019 8:42 AM LIGHT RAIL SIGNAL TECHNICIAN Nutrition Assessment Entered On: 05/14/2019 13:18 [...] 05/14/2019 15:20 EST Electronically signed by Angelika [facility] Conversion Plaster Mold Maker Cerner at 07/02/2022 4:55 PM CDT documented in this encounter Plan of Treatment Not on file documented as of this encounter Visit Diagnoses Not on filedocumented in this encounter
--- OUTSIDE RECORDS SUMMARY | 2025-01-07 15:25 | XMS_ITS | Encounter Summary ---
Author Organization [employer] ([place], [place], [place], [place]) Address [address] [place] [address] Care Team Providers Care Infirmary Attendant Name Role Phone Unavailable Primary Care Provider Unavailabl e Encounter Details Date Type Department Care Team (Late st Contact Info) Description 05/12/2019 Transcribed Document [facility] Family Medicine [address] [place] [address] ProviderLexi MD [address] [place] [address] Social History Tobacco Use Types [...] - Historical ProviderMD - 05/12/2019 9:28 AM OUTPATIENT CLERK Event Note Entered On: 05/12/2019 9:29 EST [...]
--- OUTSIDE RECORDS SUMMARY | 2025-01-07 15:25 | XMS_ITS | Encounter Summary ---
Author Organization [employer] ([place], [place], [place], [place]) Address [address] [place] [address] Care Team Providers Care Reinspector Name Role Phone Unavailable Primary Care Provider Unavailabl e Encounter Details Date Type Department Care Team (Late st Contact Info) Description 05/12/2019 Transcribed Document [facility] [place] [address] [place] [address] ProviderLexi MD [address] [place] [address] Social History Tobacco Use Types [...] - Historical ProviderMD - 05/12/2019 8:09 AM CANE FLUME WATCHMAN Pediatric Growth Entered On: 05/12/2019 8:09 EST Performed On: 05/12/2019 8:09 EST by Lianna Johnson Care [facility] Unit Coord Height and Weight, Clinical Dosing Height Source : Stated Height Entry Format : [place] Height, Feet : 5 ft(Converted to: 152 cm, 60 Inch) Height, Inches : 2 Inch(Converted to: 0 ft 2 Inch, 5.08 cm) Clinical Height : 157.48 cm Weight Source : Standing scale Weight Entry Format : [place] Clinical Dosing Weight : 107.27 kg Weight, Pounds : 236 lb Body Surface Area (BSA) : 2.05 m2 Body Mass Index : 43.3 kg/m2 (>HHI) [place] Body Weight : 50 kg Lianna Johnson Care [facility] Unit Coord - 05/12/2019 8:09 EST Electronically signed by Angelika [facility] Conversion Multi Punch Operator Cerner at 07/02/2022 5:01 PM CDT documented in this encounter Plan of Treatment Not on file documented as of this encounter Visit Diagnoses Not on filedocumented in this encounter
--- OUTSIDE RECORDS SUMMARY | 2025-01-07 15:25 | XMS_ITS | Encounter Summary ---
Author Organization [employer] ([place], [place], [place], [place]) Address [address] [place] [address] Care Team Providers Care Educational Diagnostician Name Role Phone Unavailable Primary Care Provider Unavailabl e Encounter Details Date Type Department Care Team (Late st Contact Info) Description 05/12/[address] [facility] [place] Family Medicine [address] [place] [address] ProviderLexi MD [address] [place] [address] Social History Tobacco Use Types [...] - Lexi ProviderMD - 05/12/2019 10:29 AM SURFACE SHIP USW SUPERVISOR KAYE Main OR IntraOp Summary Primary Physician: ROSIO JUDD MD-ORT Finalized Date/Time: 05/15/19 10:45:27 Pt. Name: TAY FONSECA Brittany /Sex: 1945 Female Med Rec #: [id number] Physician: ROSIO JUDD MD-ORT Financial #: [id number] Pt. Type: I Room/Bed: [facility]/ Admit/Disch: 05/13/19 09:44:00 - Institution: [facility] IntraOp Case Attendance Entry 1 Entry 2 Entry 3 Case Attendee ROSIO JUDD RENFROE, REBECCA, Biery, Jordyn A RN -ORT FOUNDATION RELATIONS MANAGER-ANS Role Performed Surgeon/Proceduralist, FOUNDATION RELATIONS MANAGER/Nurse Nurse Plastics Wood Heel Flap Rubber, First First Time In 05/12/19 10:26:00 05/12/19 [...] 6 Case Attendee Juve Stubbs, Lelo Valenzuela, Stencil Typist Role Performed Scrub, First Scrub, Second Assistive [...] QIAN LÓPEZ, PAC OTHER, ATTENDEE Role Performed Associate Professor Of Education, First Physician information assistant Vendor Time In 05/12/19 09:56:00 05/12/19 [...] Attendee DRAKE SALINAS SUSAN, RN Role Performed Nuclear Control Operator Wood Heel Flap Rubber, Second Time In 05/12/19 09:56:00 05/12/19 11:31:00 Time Out 05/12/19 11:27:00 05/12/19 11:51:00 Procedure Hip Total Anterior Hip Total Anterior Approach Approach Other Attendee Superficial Wound Closed By: Last Modified By: Gutierrez Pena RN Biery, Jordyn A, RN 05/12/19 11:51:47 05/12/19 11:51:47 [facility] IntraOp Case Attendance Audit 05/12/19 11:51:47 Management Rep: JUAN C Modifier: JUAN C 1 <*> [...] Procedure Hip Total Anterior Approach 05/12/19 11:45:43 Management Rep: JUAN C Modifier: JUAN C 3 <+> Time Out 3 <*> Procedure Hip Total Anterior Approach <+> 11 Case Attendee <+> 11 Role Performed <+> 11 Time In <+> 11 Procedure 05/12/19 11:27:30 Management Rep: JUAN C Modifier: JUAN C 1 <+> Time Out 1 <*> Procedure Hip Total Anterior Approach 5 <+> Time Out 5 <*> Procedure Hip Total Anterior Approach 9 <+> Time Out 9 <*> Procedure Hip Total Anterior Approach 10 <+> Time Out 10 <*> Procedure Hip Total Anterior Approach 05/12/19 11:15:53 Management Rep: JUAN C Modifier: JUAN C 6 <+> Time Out 6 <*> Procedure Hip Total Anterior Approach 7 <+> Time Out 7 <*> Procedure Hip Total Anterior Approach 05/12/19 10:55:31 Management Rep: JUAN C Modifier: JORDYNBLAND 1 <*> Time In 05/12/19 09:56:00 1 <*> Procedure Hip Total Anterior Approach 05/12/19 10:55:17 Management Rep: JUAN C Modifier: JORDYNBLAND 1 <+> Time [...] [facility] IntraOp Case Times Audit 05/12/19 11:51:43 Management Rep: JUAN C Modifier: JORDYNBLAND <+> 1 Out Room Time <+> 1 Stop Time 05/12/19 11:45:46 Management Rep: GUTIERREZBLRICCI Modifier: JORDYNBLAND <+> 1 Stop Time 05/12/19 10:29:48 Management Rep: JUAN C Modifier: JORDYNBLAND <+> 1 Start [...] [facility] IntraOp Counts Verification Audit 05/12/19 11:23:37 Management Rep: JUAN C Modifier: JUAN C <+> 2 [...] Cultures and Spec Summary Audit 05/12/19 09:48:34 Management Rep: JUAN C Modifier: JUAN C <+> 1 [...] RN 05/12/19 09:48:31 [facility] IntraOp General Case Senior Procurement Manager 1 Case Information OR OR 10 SJE [...] SZ STEM HIP ORIGIN SZ 13 Identification [id number] Description Implant Quantity 1 1 1 Implant Site RIGHT HIP RIGHT HIP RIGHT HIP Implant Identification Model Number Implant Identification Serial Number Implant [id number] Identification Lot Number Implant [employer] Paxeon Reconstruction Paxeon Reconstruction Identification [facility] Office Engineer Name: Implant [id number] Identification Catalog Number Implant Size Implant Has an Yes Yes Yes Expiration Date Implant Expiration 12/16/23 04/17/24 01/16/24 Date Wasted Radioactive Material Time Implanted Tissue Implant Continue for Tissue Implant Documentation Tissue Identification Number Graft Prep Per Office Engineer Instructions: Tissue Preparation Method: Reconstitution Solution: Reconstitution Solution Lot Number Reconstitution Solution Expiration Date: Thawing Solution Thawing Solution Lot Number Thawing Solution Expiration Date Preparation Materials, Other Preparation Materials, Other Lot Number Preparation Materials, Other Expiration Date Tissue Prepared/Processed By Office Engineer Paperwork Completed Implant Type Comment Last Modified By: Gutierrez Pena RN Biery, Jordyn A, RN Biery, Jordyn A, RN 05/12/19 10:55:07 05/12/19 10:55:07 05/12/19 11:19:51 Entry 4 Type Implant (Synthetic) Implant Log Implant Type Hardware Tissue Implant Type Implant HEAD FEM CERC SZ 36MM Identification [id number] Description Implant Quantity 1 Implant Site RIGHT HIP Implant Identification Model Number Implant Identification Serial Number Implant [id number] Identification Lot Number Implant Paxeon Reconstruction Identification Office Engineer Name: Implant [id number] Identification Catalog Number Implant Size Implant Has an Yes Expiration Date Implant Expiration 04/17/24 Date Wasted Radioactive Material Time Implanted Tissue Implant Continue for Tissue Implant Documentation Tissue Identification Number Graft Prep Per Office Engineer Instructions: Tissue Preparation Method: Reconstitution Solution: Reconstitution Solution Lot Number Reconstitution Solution Expiration Date: Thawing Solution Thawing Solution Lot Number Thawing Solution Expiration Date Preparation Materials, Other Preparation Materials, Other Lot Number Preparation Materials, Other Expiration Date Tissue Prepared/Processed By Office Engineer Paperwork Completed Implant Type Comment Last Modified By: Gutierrez Pena RN 05/12/19 11:19:51 SJE IntraOp Implant Log Audit 05/12/19 11:19:51 Management Rep: JUAN C Modifier: JUAN C <+> 3 Implant Identification Description <+> 3 Implant Identification Lot Number <+> 3 Implant Identification Office Engineer Name: <+> 3 Implant Expiration Date <+> 3 Implant Identification Catalog Number <+> 4 Implant Identification Description <+> 4 Implant Identification Lot Number <+> 4 Implant Identification Office Engineer Name: <+> 4 Implant Expiration Date <+> 4 Implant Identification Catalog Number 05/12/19 10:55:07 Management Rep: JUAN C Modifier: JUAN C <+> 1 Implant Identification Description <+> 1 Implant Identification Lot Number <+> 1 Implant Identification Office Engineer Name: <+> 1 Implant Expiration Date <+> 1 Implant Identification Catalog Number <+> 2 Implant Identification Description <+> 2 Implant Identification Lot Number <+> 2 Implant Identification Office Engineer Name: <+> 2 Implant Expiration Date [...] vancomycin 1Gm vial - CLONIDINE-10ML 1000MG/10 ML [id number] Combo Med List 1 - Combo Med [...] 1% w/ epinephrine 1:100,000 20ml vial - [id number] Combo Med List 2 - Combo Med [...] S[facility] IntraOp Medication Admin Audit 05/12/19 09:48:55 Management Rep: JUAN C Modifier: JUAN C <+> 5 [...] LINN CSA, SAMUEL MONTERO, JEANETH-ANS, Lelo Siddiqi, Stencil Typist, Gutierrez Pena, RN, FRANKY URRUTIA Position Verified [...] Intra Op Sign Out Audit 05/12/19 11:51:55 Management Rep: JUAN C Modifier: JUAN C 1 <*> [...] PANUS Prep Agents DuraPrep, Alcohol Prep by Gutiererz Pena RN Hair Removal Methods No hair removal performed Last Modified By: Gutierrez Pena RN 05/12/19 10:23:06 S[facility] IntraOp Skin Prep Audit 05/12/19 10:23:06 Management Rep: JUAN C Modifier: JUAN C 1 <+> [...] SJE IntraOp Surgical Procedures Audit 05/12/19 11:48:01 Management Rep: JUAN C Modifier: JUAN C <+> 1 Start <+> 1 Stop SJE IntraOp Temp Regulation Devices Entry 1 Temp Regulation Temperature Forced Air Warming Regulation Device device Temperature Upper body Regulation Site Temperature WINSTON, SAMUEL, Regulation Device FOUNDATION RELATIONS MANAGER-ANS Applied by Last Modified By: Gutierrez Pena [...] SJE IntraOp Time Out Audit 05/12/19 10:55:43 Management Rep: JUAN C Modifier: JUAN C 1 <+> Time Out Pause Time 1 <*> Procedure to be Performed Hip Total Anterior Approach SJE IntraOp X-Ray and Images Entry 1 X-Ray/Imaging Type Fluoroscopy Fluoroscopy Type C-Arm Site RIGHT HIP Installment Account Checker Name DRAKE SALINAS Protective Devices Yes Used [...] NIRMAL Correct Billing Electronically signed by Angelika [facility] Conversion Topography Technician Cerner at 07/02/2022 5:08 PM CDT documented in this encounter Plan of Treatment Not on file documented as of this encounter Visit Diagnoses Not on filedocumented in this encounter
--- OUTSIDE RECORDS SUMMARY | 2025-01-07 15:25 | XMS_ITS | Patient Health Record ---
Author Organization [employer] [facility] Address [address] [place] [address] Care Team Providers Care Forming Acid Dumper Name Role Phone Migration, Provider Unavailable Unavailable [...] day Active Vitamin D (Ergocalciferol) 1.25 MG (59333 UT) Capsule 1 cap(s) orally once a week Active Social History Social History Social History Social Info Question Answer Notes Tobacco Use Current smoking status: Quit Number of years? >25 years Problems Problem Type SNOMED Code ICD Code Onset Dates Problem Status W/U Status Risk Notes Problem Essential hypertension (51444225) Essential (primary) hypertension (I10) Active confirmed Problem Acute renal failure syndrome (27747494) Acute kidney failure, unspecified (N17.9) Active confirmed Problem Total hip replacement Prosthesis (204669852) Presence of right artificial hip joint (Z96.641) Active confirmed Problem Edema (57276151) Edema, unspecified (R60.9) Active confirmed Problem Type II diabetes mellitus without complication (773642549) Type 2 diabetes mellitus without complications (E11.9) Active confirmed Encounters Encounter Location Date Provider Diagnosis [address] [place] [address] 08/22/2024 Provider Migration Plan Of Treatment No Information Insurance Providers Payer Name Payer Address Payer Phone Subscriber Number Group Number Insured Name Patient Relationship to Insured Coverage Start Date Coverage End Date [place] [address] [address] [id number] Dominga Ardon Self - patient is the insured [facility] [address] [place] [phone] [id number] Dominga Ardon Self - patient is the insured Medical (General) History Medical History History ICD Code Anxiety disorder sleep apnea, at risk for type 2 diabetes hypercholesterolemia hypertension Hypothyroidism Vitamin D deficiency Surgical History Surgery Date(Month/Year) Hysterectomy Gastric band ORIF, left ankle VD x1 Hospitalization History Reason Date(Month/Year) Right ATHA 04/2019
--- OUTSIDE RECORDS SUMMARY | 2025-01-07 15:25 | XMS_ITS | Encounter Summary ---
Author Organization [employer] ([place], [place], [place], [place]) Address [address] [place] [address] Care Team Providers Care Playground Worker Name Role Phone Unavailable Primary Care Provider Unavailabl e Encounter Details Date Type Department Care Team (Late st Contact Info) Description 05/12/2019 Transcribed Document [facility] [place] Family Medicine [address] [place] [address] ProviderLexi MD [address] [place] [address] Social History Tobacco Use Types [...] - Historical ProviderMD - 05/12/2019 2:48 PM SHINGLE SAWYER Treatment Intervention, OT Entered On: 05/16/2019 14:44 [...] PIYUSHRAMON GARCIA OTR/Brittany - 05/16/2019 14:36 EST Property Condition Assessor Goals, OT Other LTG Grid Goal #1 [...]
--- OUTSIDE RECORDS SUMMARY | 2025-01-07 15:25 | XMS_ITS | Encounter Summary ---
Author Organization [employer] ([place], [place], [place], [place]) Address [address] [place] [address] Care Team Providers Care Lead Tank Mechanic Name Role Phone Unavailable Primary Care Provider Unavailabl e Encounter Details Date Type Department Care Team (Late st Contact Info) Description 05/12/2019 Transcribed Document [facility] Family Medicine [facility] [place] [address] ProviderLexi MD [address] [place] [address] Social History Tobacco Use Types [...] - Historical ProviderMD - 05/12/2019 7:21 AM JOURNEY LINEMAN Patient: TAY FONSECA Age: 73 Years Sex: [...]
--- OUTSIDE RECORDS SUMMARY | 2025-01-07 15:25 | XMS_ITS | Encounter Summary ---
Author Organization [employer] ([place], [place], [place], [place]) Address [address] [place] [address] Care Team Providers Care Security Threat Analyst Name Role Phone Unavailable Primary Care Provider Unavailabl e Encounter Details Date Type Department Care Team (Late st Contact Info) Description 05/12/2019 Transcribed Document [facility] [place] Family Medicine [address] [place] [address] ProviderLexi MD [address] [place] [address] Social History Tobacco Use Types [...] - Historical ProviderMD - 05/12/2019 12:53 PM GLASS BLOWING LATHE OPERATOR Pain Assessment Entered On: 05/13/2019 7:53 EST Performed On: 05/13/2019 7:15 EST by Rach Red RN Intervention Information: oxyCODONE Performed by BORIS OVALLE, Community Relations Advisor-Nursing on 05/13/2019 06:15:00 EST oxyCODONE,10mg Oral,Pain (Severe [...]
--- OUTSIDE RECORDS SUMMARY | 2025-01-07 15:25 | XMS_ITS | Encounter Summary ---
Author Organization [employer] ([place], [place], [place], [place]) Address [address] [place] [address] Care Team Providers Care Street Commissioner Name Role Phone Unavailable Primary Care Provider Unavailabl e Encounter Details Date Type Department Care Team (Late st Contact Info) Description 05/12/2019 Transcribed Document [facility] [place] [place] Family Medicine [address] [place] [address] ProviderLexi MD [address] [place] [address] Social History Tobacco Use Types [...] - Historical ProviderMD - 05/12/2019 7:00 PM TRAVELING FREIGHT AGENT Pain Assessment Entered On: 05/12/2019 23:17 EST Performed On: 05/12/2019 19:38 EST by BORIS OVALLE, Cloth Beamer-Nursing Intervention Information: acetaminophen Performed by Rach Red RN on 05/12/2019 18:38:00 EST acetaminophen,1000mg Oral Pain Assessment Pain Assessment : Follow-up assessment Pain Scale Goal : 4 Pain Scale Used : FACES Pain Intervention, Drug : Medicated Pain Improved by Intervention : Yes BORIS OVALLE, Cloth Beamer-Nursing - 05/12/2019 23:17 EST Pain Scale Intensity : 3 BORIS OVALLE, Cloth Beamer-Nursing - 05/12/2019 23:17 EST Image 4 - Images currently included in the form version of this document have not been included in the text rendition version of the form. documented in this encounter Plan of Treatment Not on file documented as of this encounter Visit Diagnoses Not on filedocumented in this encounter
--- OUTSIDE RECORDS SUMMARY | 2025-01-07 15:25 | XMS_ITS ---
Author Organization [facility] Care Team Providers Care Fruit Tester Name Role Phone Deepa Medellin (Nimisha) Unavailable Unavail able Humberto Camarena Unavailable Unavailable Allergies and adverse reactions Code CodeSystem Substance Reaction Severity StartDate Concern Status 271415239 SNOMED CT Penicillins Moderate 07/08/2023 acti ve Care Team Name Role Address Phone Organization Dates Humberto Camarena PCP [address] [place] [address], [place], [address], [place] (Office): [facility] 07/08/2023 - 07/17/2023 Deepa ([place]imisha) [place], [address], [place] (Office): : [facility] 07/08/2023 - 07/17/2023 Goals [...] completed tuberculin skin test; unspecified formulation lotNumber: [id number] expiry: 06/29/2026 Mfg: Sandfi pasteur Given 0.1 [...] every 6 hours as neede d for [place] gabby [place] ratur e 2.5 degre es above basel ine T give two table ts every 6 hours as neede d for temp 2.5 degre es above basel ine 2023 - Elevated Temperature 2.5 degrees above baseline T Pantoprazol e Sodium Oral Tablet Delayed Release 40 MG active 62768 0 RXNORM 1 table t Oral at bedtime Routin e Give 1 table t by mouth at bedti me for GERD 2023 - GERD Clopidogrel Bisulfate Oral Tablet 75 MG active 29581 2 RXNORM 1 table t Oral at [...] health glipiZIDE Oral Tablet 10 MG active 19387 8 RXNORM 1 table t Oral every [...] n Calcium Oral Tablet 80 MG active 16121 5 RXNORM 1 table t Oral at bedtime Routin e Give 1 table t by mouth at bedti me for liam stero l relat ed to HYPER LIPID EMIA, UNSPE CIFIE D (E78. 5) 2023 - cholesterol Furosemide Oral Tablet 40 MG active 03669 8 RXNORM 1 table t Oral one time a day Routin e Give 1 table t by mouth one time a day for edema /CHF 2023 - edema/CHF Citalopram Hydrobromid e Oral Tablet 40 MG active 53486 4 RXNORM 1 table t Oral one time a day Routin e Give 1 table t by mouth one time a day for depre ssion 2023 - depression Ergocalcife rol Oral Capsule 1.25 MG (69824 UT) active 80195 10 RXNORM 1 capsu le Oral one [...] Extended Release 24 Hour 25 MG active 41613 7 RXNORM 1 table t Oral at bedtime Routin e Give 1 table t by mouth at bedti me for HTN relat ed to ESSEN TIAL (PRIM ALHAJI) HYPER TENSI ON (I10) Hold for SBP <90 or HR <50 2023 - HTN Antacid & Antigas Oral Suspension 2468-6615-2 40 MG/30ML active 30 ml Oral as needed PRN Give 30 ml by mouth every 6 hours as neede d for indig estio n 2023 - indigestion Ozempic (0.25 or 0.5 MG/DOSE) Subcutaneou s Solution Pen-injecto r 2 MG/3ML active 95201 54 RXNORM 0.25 mg Subcut aneous one [...] 1 ACUTE RESPIRATORY FAILURE WITH HYPOXIA 07/08/[address] active 2 CHRONIC RESPIRATORY FAILURE, UNSPECIFIED WHETHER WITH HYPOXIA OR HYPERCAPNIA 07/08/[address] active 3 DEPRESSION, UNSPECIFIED 07/08/[address] active 4 ESSENTIAL (PRIMARY) HYPERTENSION 07/08/[address] active 5 FOLLICULAR LYMPHOMA, UNSPECIFIED, UNSPECIFIED SITE 07/08/[address] active 6 GASTRO-ESOPHAGEAL REFLUX DISEASE 07/08/[address] active 7 GASTRO-ESOPHAGEAL REFLUX DISEASE WITHOUT ESOPHAGITIS 07/08/2023 07/11/[address] complete d 8 HEART FAILURE, UNSPECIFIED 07/08/[address] active 9 HYPERLIPIDEMIA, UNSPECIFIED 07/08/[address] active 10 MORBID (SEVERE) OBESITY DUE TO EXCESS CALORIES 07/08/[address] active 11 MUSCLE WEAKNESS (GENERALIZED) 07/08/[address] active 12 NON-ST ELEVATION (NSTEMI) MYOCARDIAL INFARCTION 07/08/[address] active 13 OTHER FORMS OF DYSPNEA 07/08/[address] active 14 POSTPROCEDURAL (ACUTE) (CHRONIC) KIDNEY FAILURE 07/08/[address] active 15 PRESENCE OF CORONARY ANGIOPLASTY IMPLANT AND GRAFT 07/08/[address] active 16 TYPE 2 DIABETES MELLITUS WITHOUT COMPLICATIONS 07/08/[address] active 17 UNSTEADINESS ON FEET 07/08/[address] active Reason for Referral No Reasons for Referral Entered Social History Social History Observation Description Start Date End Date Code Code System Current Smoking Status Tobacco smoking consumption unknown 938201058 SNOMED CT Sex Assigned At Female 1945 [address]-7 [facility] Gender Identity Sexual Orientation Vital Signs Code Code System Vitals Name Values and Units Timing Information 9279-1 [facility] Respiratory Rate Value=20.0 Units=/m in 07/17/2023 8462-4 [facility] Blood Pressure-Diastolic Value=76 Un its=mmHg 07/17/2023 8480-6 [facility] Blood Pressure-Systolic Qxvnj=799 Un its=mmHg 07/17/2023 8310-5 [facility] Body Temperature Value=97.2 Units= F 07/17/2023 8867-4 [facility] Heart rate Value=88.0 Units=/min 03/2023 48208-8 [facility] O2 % BldC Oximetry Value=90.0 Units= % 07/17/2023 2339-0 [facility] Blood Sugar Bneuw=098.0 Units=mg/dL 07/17/2023 31311-2 [facility] Pain Level Value=0.0 07/15/2023 8302-2 LOINC Height Value=62.0 Units=Inches 07/08/2023 10810-6 LO[facility] Weight Tjpdu=883.0 Units=Lbs
--- OUTSIDE RECORDS SUMMARY | 2025-01-07 15:25 | XMS_ITS | Encounter Summary ---
Author Organization [employer] ([place], [place], [place], [place]) Address [address] [place] [address] Care Team Providers Care Hydrometer Calibrator Name Role Phone Unavailable Primary Care Provider Unavailabl e Encounter Details Date Type Department Care Team (Late st Contact Info) Description 05/12/2019 Transcribed Document [facility] [place] Family Medicine [address] [place] [address] ProviderLexi MD [address] [place] [address] Social History Tobacco Use Types [...] - Lexi ProviderMD - 05/12/2019 10:29 AM PATIENT SAFETY TECH KAYE Main OR PACU Summary Primary Physician: ROSIO JUDD MD-ORPatria Finalized Date/Time: 05/12/19 13:13:58 Pt. Name: TAY FONSECA /Sex: 1945 Female Med Rec #: [id number] Physician: ROSIO JUDD MD-ORT Financial #: [id number] Pt. Type: O Room/Bed: [facility]/2 Admit/Disch: 05/12/19 04:49:00 - Institution: [facility] OR PACU Case Times Entry 1 In PACU I 05/12/19 11:54:00 Ready for PACU 05/12/19 13:13:00 Discharge Discharge from PACU 05/12/19 13:13:00 I Last Modified By: JASPAL MARQUIS 05/12/19 13:13:46 SJRoni Main OR PACU Case Times Audit 05/12/19 13:13:46 Orchestra Conductor: RAMON Modifier: TERESAMAM <+> 1 Ready for PACU Discharge <+> 1 Discharge from PACU I Finalized By: JASPAL MARQUIS Document Signatures Signed By: JASPAL MARQUIS 05/12/19 13:13 documented in this encounter Plan of Treatment Not on file documented as of this encounter Visit Diagnoses Not on filedocumented in this encounter
--- OUTSIDE RECORDS SUMMARY | 2025-01-07 15:25 | XMS_ITS | Encounter Summary ---
Author Organization [employer] ([place], [place], [place], [place]) Address [address] [place] [address] Care Team Providers Care Distribution Associate Name Role Phone Unavailable Primary Care Provider Unavailabl e Encounter Details Date Type Department Care Team (Late st Contact Info) Description 05/12/2019 Transcribed Document [facility] [place] [address] [place] [address] ProviderLexi MD [address] [place], [...] - Historical ProviderMD - 05/12/2019 12:53 PM VOIP NETWORK ENGINEER Evaluation, Occupational Therapy Entered On: 05/12/2019 14:47 [...] ESPERANZA REYNA OTR/Brittany - 05/12/2019 14:33 EST Detention Goals, OT Other LTG Grid Goal #1 [...] 05/12/2019 14:33 EST Electronically signed by Interface, [facility] Conversion Patient Care Associate Cerner at 07/02/2022 4:58 PM CDT documented in this encounter Plan of Treatment Not on file documented as of this encounter Visit Diagnoses Not on filedocumented in this encounter
--- OUTSIDE RECORDS SUMMARY | 2025-01-07 15:25 | XMS_ITS | Encounter Summary ---
Author Organization [employer] ([place], [place], [place], [place]) Address [address] [place] [address] Care Team Providers Care Airport Operations Officer Name Role Phone Unavailable Primary Care Provider Unavailabl e Encounter Details Date Type Department Care Team (Late st Contact Info) Description 05/12/2019 Transcribed Document [facility] [place] [address] [place] [address] ProviderLexi MD [address] [place] [address] Social History Tobacco Use Types [...] - Historical ProviderMD - 05/12/2019 1:18 PM ENRICHMENT DIRECTOR Admission History, Adult Entered On: 05/12/2019 13:21 [...] Obtained From : Patient Primary Language : Pakistani Preferred Communication Mode : Verbal Communication Barrier [...] Level : 46 or > High Risk [place] Fall Interventions : Assistive devices within reach, [...] Source : Stated Height Entry Format : [place] Height, Feet : 5 ft(Converted to: 152 cm, 60 Inch) Height, Inches : 2 Inch(Converted to: 0 ft 2 Inch, 5.08 cm) Clinical Height : 157.48 cm Weight Source : Standing scale Weight Entry Format : [place] Clinical Dosing Weight : 107.27 kg Weight, Pounds : 236 lb Body Surface Area (BSA) : 2.05 m2 Body Mass Index : 43.3 kg/m2 (>HHI) [place] Body Weight : 50 kg Rach Red [...] Yes Influenza Immunization Date : 12/16/2018 EDT Rahc Red RN - 05/12/2019 13:18 EST Pneumococcal [...] Rach Red RN - 05/12/2019 13:18 EST [place] Suicide Severity Rating Scale (C-SSRS) CSSRS Past [...] Any Spiritual/Cultural Needs or Requests : Yes Roman Catholic Preference : Samaritan Rach Red RN - 05/12/2019 13:18 EST [...]
--- OUTSIDE RECORDS SUMMARY | 2025-01-07 15:25 | XMS_ITS | Encounter Summary ---
Author Organization [employer] ([place], [place], [place], [place]) Address [address] [place] [address] Care Team Providers Care Embedded Software Development Engineer Name Role Phone Unavailable Primary Care Provider Unavailabl e Encounter Details Date Type Department Care Team (Late st Contact Info) Description 05/12/2019 Transcribed Document [facility] [place] [address] [place] [address] ProviderLexi MD [address] [place] [address] Social History Tobacco Use Types [...] - Historical ProviderMD - 05/12/2019 8:30 AM PIN PUSHER Event Note Entered On: 05/12/2019 9:11 EST [...] Cecile Wright RN - 05/12/2019 13:46 EST documented in this encounter Plan of Treatment Not on file documented as of this encounter Visit Diagnoses Not on filedocumented in this encounter
--- OUTSIDE RECORDS SUMMARY | 2025-01-07 15:26 | XMS_ITS | Encounter Summary ---
Author Organization [employer] ([place], [place], [place], [place]) Address [address] [place] [address] Care Team Providers Care Grounds Foreman Name Role Phone Unavailable Primary Care Provider Unavailabl e Encounter Details Date Type Department Care Team (Late st Contact Info) Description 05/12/2019 Transcribed Document [facility] [place] [address] [place] [address] ProviderLexi MD [address] [place] [address] Social History Tobacco Use Types [...] - Historical ProviderMD - 05/12/2019 9:00 AM CONVENTION SERVICES MANAGER Event Note Entered On: 05/12/2019 9:12 EST [...]
--- OUTSIDE RECORDS SUMMARY | 2025-01-07 15:26 | XMS_ITS | Referral Summary ---
Author Organization [employer] ([place], [place], [place], [place]) Address [address] [place] [address] Care Team Providers Care Finisher Denture Name Role Phone Unavailable Primary Care Provider [...]
--- OUTSIDE RECORDS SUMMARY | 2025-01-07 15:26 | XMS_ITS | Encounter Summary ---
Author Organization [employer] ([place], [place], [place], [place]) Address [address] [place] [address] Care Team Providers Care Biblical Languages Professor Name Role Phone Unavailable Primary Care Provider Unavailabl e Encounter Details Date Type Department Care Team (Late st Contact Info) Description 04/27/2019 Transcribed Document [facility] [place] [address] [place] [address] ProviderLexi MD [address] [place] [address] Social History Tobacco Use Types [...] - Historical ProviderMD - 04/27/2019 6:29 AM PROCUREMENT SPECIALIST Orthopedic Nurse Navigator Entered On: 04/27/2019 6:31 [...] Pt is wanting to go to the [place]. Alyssia Ashraf RN Surgical Services - 04/27/2019 6:29 EST Electronically signed by Angelika [facility] Conversion Blister Rust Eradicator Cerner at 07/02/2022 5:05 PM CDT documented in this encounter Plan of Treatment Not on file documented as of this encounter Visit Diagnoses Not on filedocumented in this encounter
--- OUTSIDE RECORDS SUMMARY | 2025-01-07 15:26 | XMS_ITS | Encounter Summary ---
Author Organization [employer] ([place], [place], [place], [place]) Address [address] [place] [address] Care Team Providers Care Garnett Room Worker Name Role Phone Unavailable Primary Care Provider Unavailtruman e Encounter Details Date Type Department Care Team (Late st Contact Info) Description 05/12/2019 Transcribed Document [facility] [place] [address] [place] [address] ProviderLexi MD [address] [place] [address] Social History Tobacco Use Types [...] - Historical ProviderMD - 05/12/2019 4:12 PM CARE NAVIGATOR Patient: TAY FONSECA Age: 73 years Sex: [...] causes a rash Thanks, Link Duron, PharmD #[id number] documented in this encounter Plan of Treatment Not on file documented as of this encounter Visit Diagnoses Not on filedocumented in this encounter
--- OUTSIDE RECORDS SUMMARY | 2025-01-07 15:26 | XMS_ITS | Encounter Summary ---
Author Organization [employer] ([place], [place], [place], [place]) Address [address] [place] [address] Care Team Providers Care Ssrs Report Developer Name Role Phone Unavailable Primary Care Provider Unavailabl e Encounter Details Date Type Department Care Team (Late st Contact Info) Description 04/27/2019 Transcribed Document [facility] [place] [address] [place] [address] ProviderLexi MD [address] [place] [address] Social History Tobacco Use Types [...] - Lexi ProviderMD - 04/27/2019 6:29 AM MAGAZINE GRINDER LOADER Total Joints Assessment Entered On: 04/27/2019 6:30 EST Performed On: 04/27/2019 6:29 EST by Alyssia Ashraf RN Surgical Services JR. RICHARD Hip Survey 1. Going up or down stairs : Moderate 2. Walking on an uneven surface : Severe 3. Rising from sitting : Severe 4. Bending to floor/burr picker an object : Severe 5. Lying in bed (turning over, maintaining hip position) : Severe 6. Sitting : Moderate RICHARD PENG Raw Score (ref) : 16 Alsysia Ashraf RN Surgical Services - 04/27/2019 6:29 [...] - 04/27/2019 6:29 EST Electronically signed by Meghan Carney Conversion Water Pumping Station Engineer Cerner at 07/02/2022 4:55 PM CDT documented in this encounter Plan of Treatment Not on file documented as of this encounter Visit Diagnoses Not on filedocumented in this encounter
--- OUTSIDE RECORDS SUMMARY | 2025-01-07 15:26 | XMS_ITS | Encounter Summary ---
Author Organization [employer] ([place], [place], [place], [place]) Address [address] [place] [address] Care Team Providers Care Electrical Instrument Technician Name Role Phone Unavailable Primary Care Provider Unavailabl e Encounter Details Date Type Department Care Team (Late st Contact Info) Description 05/04/2019 Transcribed Document [facility] [place] [address] [place] [address] ProviderLexi MD [address] [place] [address] Social History Tobacco Use Types [...] - Historical ProviderMD - 05/04/2019 1:10 PM AQUATIC SCIENTIST Orthopedic Nurse Navigator Entered On: 05/04/2019 13:11 EST Performed On: 05/04/2019 13:10 EST by Alyssia Ashraf Nurse embedder Nurse Navigator Assessment Does Patient Have a Walker? : No Joint Navigator Assessment Note : Patient returned call. Pt is wanting to go to the [place] bc she lives alone and has stairs. Pt indicates she was supposed to have surgery last September with another , and went to the class at that time. Alyssia Ashraf Nurse KOBE - 05/04/2019 13:10 EST Electronically signed by Angelika [facility] Conversion Veterinary Manager Cerner at 07/02/2022 5:05 PM CDT documented in this encounter Plan of Treatment Not on file documented as of this encounter Visit Diagnoses Not on filedocumented in this encounter
--- OUTSIDE RECORDS SUMMARY | 2025-01-07 15:26 | XMS_ITS | Encounter Summary ---
Author Organization [employer] ([place], [place], [place], [place]) Address [address] [place] [address] Care Team Providers Care Motors Assembler Name Role Phone Unavailable Primary Care Provider Unavailabl e Encounter Details Date Type Department Care Team (Late st Contact Info) Description 05/12/2019 Transcribed Document [facility] [place] [address] [place] [address] ProviderLexi MD [address] [place] [address] Social History Tobacco Use Types [...] - Historical ProviderMD - 05/12/2019 12:53 PM TOP LIFT COMPRESSER Pain Assessment Entered On: 05/15/2019 9:58 EST [...]
--- OUTSIDE RECORDS SUMMARY | 2025-01-07 15:26 | XMS_ITS | Clinical Summary ---
Author Organization [facility] Address [address] [place] [address] Care Team Providers Care Workcell Operator Name Role Phone Jesus Peñaloza MD Primary Care Provider [phone] Allergies Active Allergy Reactions Criticality Noted Date [...] (02/20/2022): Added automatically from request for surgery [id number] Diabetes mellitus 11/08/2021 Overview (11/08/2021): no insulin [...] - 5.60 % 03/06/2022 11:35 AM EST [facility] Blood Venipuncture / Unknown 03/06/2022 10:37 AM EST 03/06/2022 10:52 AM EST Narrative [facility] - 03/06/2022 11:35 AM EST Hemoglobin A1C Ranges: Increased Risk for Diabetes 5.7% to 6.4% Diabetes >= 6.5% Diabetic Goal < 7.0% Jimmy Wilson MD LAB BLOOD ORDERABLES Final Result [facility]
[address] [place] [address], from Last 3 Months or Most Recently [...] Payer (Ef fective 2012-Present) Name:Dominga Ardon Member ID:[id number] Relation to Subscriber:Self Name:Dominga Ardon Subscriber ID:[id number] Payer ID:[id number] Group ID:Not on file Type:Not on file Address: [id number] [facility] [employer] Care Teams Workcell Operator Relationship Specialty Start Date End Date Jesus Peñaloza MD [address] [place] [address] PCP - General Family Medicine 10/02/18
--- OUTSIDE RECORDS SUMMARY | 2025-01-07 15:26 | XMS_ITS | Encounter Summary ---
Author Organization [employer] ([place], [place], [place], [place]) Address [address] [place] [address] Care Team Providers Care Food Scientist Name Role Phone Unavailable Primary Care Provider Unavailabl e Encounter Details Date Type Department Care Team (Late st Contact Info) Description 05/12/2019 Transcribed Document [facility] [place] [address] [place] [address] ProviderLexi MD [address] [place], [...] - Historical ProviderMD - 05/12/2019 8:17 AM TRANSIT MECHANIC Pre Procedure Adult Entered On: 05/12/2019 8:24 EST Performed On: 05/12/2019 8:17 EST by Cecile Wright RN Height and Weight, Clinical Dosing Height Source : Stated Height Entry Format : [place] Height, Feet : 5 ft(Converted to: 152 cm, 60 Inch) Height, Inches : 2 Inch(Converted to: 0 ft 2 Inch, 5.08 cm) Clinical Height : 157.48 cm Weight Source : Standing scale Weight Entry Format : [place] Clinical Dosing Weight : 107.27 kg Weight, Pounds : 236 lb Body Surface Area (BSA) : 2.05 m2 Body Mass Index : 43.3 kg/m2 (>HHI) [place] Body Weight : 50 kg Cecile Wright [...] Cecile Wright RN - 05/12/2019 8:17 EST [place] Suicide Severity Rating Scale (C-SSRS) CSSRS Past [...] Any Spiritual/Cultural Needs or Requests : Yes Restoration Preference : Congregational Cecile Wright RN - 05/12/2019 8:17 EST [...] Obtained From : Patient Primary Language : Welsh Preferred Communication Mode : Verbal Communication Barrier [...] Scale Risk Level : 25-45 Medium Risk [place] Fall Interventions : Adequate lighting, Assistive devices [...] the text rendition version of the form. [place] Coma Crystal Best Motor Response : Obey commands [place] Best Verbal Response : Oriented [place] Eye Opening Response : Spontaneous [place] Coma Score : 15 Cecile Wright RN - 05/12/2019 8:17 EST documented in this encounter Plan of Treatment Not on file documented as of this encounter Visit Diagnoses Not on filedocumented in this encounter
--- OUTSIDE RECORDS SUMMARY | 2025-01-07 15:26 | XMS_ITS | Encounter Summary ---
Author Organization [employer] ([place], [place], [place], [place]) Address [address] [place] [address] Care Team Providers Care Director Medicaid Name Role Phone Unavailable Primary Care Provider Unavailabl e Encounter Details Date Type Department Care Team (Late st Contact Info) Description 05/12/2019 Transcribed Document [facility] [place] [address] [place] [address] ProviderLexi MD [address] [place] [address] Social History Tobacco Use Types [...] - Lexi ProviderMD - 05/12/2019 3:07 PM INVENTORY CONTROL/SHIPPING RECEIVING Treatment Intervention, PT Entered On: 05/15/2019 10:15 EST Performed On: 05/15/2019 9:03 EST by MARIELOS HUFFMAN, DOCUMENT MANAGEMENT CONSULTANT General Information, PT Visit Type, PT : [...] Consult to Physical Therapy Ordered By: QIAN AWSHBURN PAC 05/12/2019 15:07 PT Additional Treatment Ordered By: WILIAN KENNEDY, PT Active Diagnoses : No Qualifying Diagnoses Therapy Diagnosis, PT : aftercare following R ATHA Admission Date : 05/13/2019 09:44 Personal Devices : Personal Devices Dentures, upper, Dentures, lower Assistive Devices : Assistive Devices No Devices Recorded Precautions in Place : Fall prevention measures, high risk MARIELOS HUFFMAN, DOCUMENT MANAGEMENT CONSULTANT - 05/15/2019 10:01 EST General Status Patient [...] Treatment Time : 23 Minute(s) MARIELOS HUFFMAN, DOCUMENT MANAGEMENT CONSULTANT - 05/15/2019 10:01 EST Edu Topics Physical [...] MARIELOS HUFFMAN, TAMMY - 05/15/2019 10:01 EST Usp Goals Other PT LTG Grid Goal #1 [...] rehab setting per CM today MARIELOS HUFFMAN, DOCUMENT MANAGEMENT CONSULTANT - 05/15/2019 10:01 EST MARIELOS HUFFMAN, DOCUMENT MANAGEMENT CONSULTANT - 05/15/2019 10:01 EST MARIELOS HUFFMAN, DOCUMENT MANAGEMENT CONSULTANT - 05/15/2019 10:01 EST MARIELOS HUFFMAN, DOCUMENT MANAGEMENT CONSULTANT - 05/15/2019 10:01 EST Treatment Note Subjective [...] for Treatment : Cont POC. MARIELOS HUFFMAN, DOCUMENT MANAGEMENT CONSULTANT - 05/15/2019 10:01 EST Pain Assessment Pain Scaled Used : FACES Pain Score Pre-Intervention : 4 MARIELOS HUFFMAN, DOCUMENT MANAGEMENT CONSULTANT - 05/15/2019 10:01 EST Image 1 - Images currently included in the form version of this document have not been included in the text rendition version of the form. [place] PT Charges DOCUMENT MANAGEMENT CONSULTANT PT Therap. Exercise 15 min-DOCUMENT MANAGEMENT CONSULTANT : 2 MARIELOS HUFFMAN, DOCUMENT MANAGEMENT CONSULTANT - 05/15/2019 10:01 EST documented in this encounter Plan of Treatment Not on file documented as of this encounter Visit Diagnoses Not on filedocumented in this encounter
--- OUTSIDE RECORDS SUMMARY | 2025-01-07 15:26 | XMS_ITS | Encounter Summary ---
Author Organization [employer] ([place], [place], [place], [place]) Address [address] [place] [address] Care Team Providers Care Side Stitching Machine Operator Name Role Phone Unavailable Primary Care Provider Unavailabl e Encounter Details Date Type Department Care Team (Late st Contact Info) Description 05/12/2019 Transcribed Document [facility] [place] [address] [place] [address] ProviderLexi MD [address] [place] [address] Social History Tobacco Use Types [...] - Lexi ProviderMD - 05/12/2019 10:29 AM [facility] Main OR PreOp Summary Primary Physician: ROSIO JUDD MD-ORT Finalized Date/Time: 05/19/19 10:37:26 Pt. Name: TAY FONSECA D.O.B./Sex: 1945 Female Med Rec #: [id number] Physician: ROSIO JUDD MD-ORT Financial #: [id number] Pt. Type: I Room/Bed: 412/1 Admit/Disch: 05/13/19 09:44:00 - 05/16/19 14:56:00 Institution: [facility] [place] PreOp Case Times Entry 1 In Preop 05/12/19 07:15:00 Ready for Holding n/a Room Patient Ready for 05/12/19 09:00:00 Surgery Patient Out of Preop 05/12/19 09:50:00 Patient Out of n/a Holding Room Last Modified By: ROS HUNTER 05/19/19 10:37:25 SJRoni PreOp Case Times Audit 05/19/19 10:37:25 Health Care Administrator: [id number] Modifier: [email or web address] <+> 1 Patient Out of Preop Finalized By: ROS HUNTER Document Signatures Signed By: ROS HUNTER 05/19/19 10:37 Electronically signed by Angelika [facility] Conversion Pulp Machine Operator Cerner at 07/02/2022 4:50 PM CDT documented in this encounter Plan of Treatment Not on file documented as of this encounter Visit Diagnoses Not on filedocumented in this encounter
--- OUTSIDE RECORDS SUMMARY | 2025-01-07 15:26 | XMS_ITS | Encounter Summary ---
Author Organization [employer] ([place], [place], [place], [place]) Address [address] [place] [address] Care Team Providers Care Cmo Name Role Phone Unavailable Primary Care Provider Unavailabl e Encounter Details Date Type Department Care Team (Late st Contact Info) Description 05/04/2019 Transcribed Document [facility] [place] [address] [place] [address] ProviderLexi MD [address] [place] [address] Social History Tobacco Use Types [...] - Historical ProviderMD - 05/04/2019 1:01 PM BLOCKER HAND Orthopedic Nurse Navigator Entered On: 05/04/2019 13:02 EST Performed On: 05/04/2019 13:01 EST by Alyssia Ashraf Nurse mail handler Nurse Navigator Assessment Joint Navigator Assessment Note : Attempted to call patient, message left. Alyssia Ashraf Nurse RN - 05/04/2019 13:01 EST Electronically signed by Angelika [facility] Conversion Dictating Machine Typist Cerner at 07/02/2022 5:15 PM CDT documented in this encounter Plan of Treatment Not on file documented as of this encounter Visit Diagnoses Not on filedocumented in this encounter
--- OUTSIDE RECORDS SUMMARY | 2025-01-07 15:27 | XMS_ITS | Encounter Summary ---
Author Organization [employer] ([place], [place], [place], [place]) Address [address] [place] [address] Care Team Providers Care Lead Etl Developer Name Role Phone Unavailable Primary Care Provider Unavailabl e Encounter Details Date Type Department Care Team (Late st Contact Info) Description 04/24/2019 Transcribed Document [facility] [place] Family Medicine [address] [place] [address] ProviderLexi MD [address] [place] [address] Social History Tobacco Use Types [...] - Historical ProviderMD - 04/24/2019 12:07 PM COPIER TECHNICIAN PAT Adult Entered On: 04/24/2019 12:15 EST [...] Source : Stated Height Entry Format : [place] Height, Feet : 5 ft(Converted to: 152 cm, 60 Inch) Height, Inches : 2 Inch(Converted to: 0 ft 2 Inch, 5.08 cm) Clinical Height : 157.48 cm Weight Source : Standing scale Weight Entry Format : [place] Clinical Dosing Weight : 109.09 kg Weight, Pounds : 240 lb Body Surface Area (BSA) : 2.07 m2 Body Mass Index : 44 kg/m2 (>HHI) [place] Body Weight : 50 kg Nuvia Moseley [...] Nuvia Moseley Rn - 04/24/2019 12:[address] [place] Suicide Severity Rating Scale (C-SSRS) CSSRS Past [...] Obtained From : Patient Primary Language : Jamaican Preferred Communication Mode : Verbal Communication Barrier [...]
--- OUTSIDE RECORDS SUMMARY | 2025-01-07 15:27 | XMS_ITS | Encounter Summary ---
Author Organization [employer] ([place], [place], [place], [place]) Address [address] [place] [address] Care Team Providers Care Corporate Webmaster Name Role Phone Unavailable Primary Care Provider Unavailabl e Encounter Details Date Type Department Care Team (Late st Contact Info) Description 04/24/2019 Transcribed Document [facility] [place] [facility] [place] [address] ProviderLexi MD [address] [place] [address] Social History Tobacco Use Types [...] - Lexi ProviderMD - 04/24/2019 11:06 AM PINKING MACHINE OPERATOR Patient: TAY FONSECA Age: 73 Years [...]
--- OUTSIDE RECORDS SUMMARY | 2025-01-07 15:27 | XMS_ITS | Encounter Summary ---
Author Organization [employer] ([place], [place], [place], [place]) Address [address] [place] [address] Care Team Providers Care Cryptanalyst Name Role Phone Unavailable Primary Care Provider Unavailabl e Encounter Details Date Type Department Care Team (Late st Contact Info) Description 05/25/2019 Transcribed Document [facility] Radiology [address] [place] [address] Alba River MD [address] [place] [address] Social History Tobacco Use Types Packs/Day [...] on 05/12/2019 Documented in Lab Results Review CDS/Senior Administrative Support Signature: Donovan Nunes Phone #: [phone] Extn [phone] Date/Time: 05/25/2019 09:40 This is a permanent part of the Medical Record Q54 2019 [facility] Updated: documented in this encounter Plan of Treatment Not on file documented as of this encounter Visit Diagnoses Not on filedocumented in this encounter
--- OUTSIDE RECORDS SUMMARY | 2025-01-07 15:27 | XMS_ITS | Encounter Summary ---
Author Organization [facility] Address [address] [place] [address] Care Team Providers Care Community Outreach Worker Name Role Phone Humberto Downs MD Primary Care Provider [phone] Humberto Camarena MD Primary Care Provider + [phone] Encounter Details Date Type Department Care Team (Late st Contact Info) Description 12/19/2024 Orders Only External Location [address] [place] [address] Provider, External Social History Tobacco Use Types [...] documented as of this encounter Care Teams Community Outreach Worker Relationship Specialty Start Date End Date Humberto Downs MD [address] [place] [address] PCP - General 07/29/20 12/28/24 [place] [address] [place] [address] [address] [place] [address] PCP - General Internal Medicine 12/29/24 documented as of this encounter
--- OUTSIDE RECORDS SUMMARY | 2025-01-07 15:27 | XMS_ITS | Encounter Summary ---
Author Organization [facility] Address [address] [place] [address] Care Team Providers Care Fabrication Supervisor Name Role Phone Humberto Downs MD Primary Care Provider [phone] Humberto Camarena MD Primary Care Provider + [phone] Encounter Details Date Type Department Care Team (Late st Contact Info) Description 09/24/2024 Orders Only External Location [address] [place] [address] Provider, External Social History Tobacco Use Types [...] on filedocumented in this encounter Care Teams Fabrication Supervisor Relationship Specialty Start Date End Date Humberto Downs MD [address] [place] [address] [place] [address] PCP - General 07/29/20 12/28/24 Humberto Camarena MD [address] [place] [address] PCP - General Internal Medicine 12/29/24 documented as of this encounter
--- OUTSIDE RECORDS SUMMARY | 2025-01-07 15:27 | XMS_ITS | Encounter Summary ---
Author Organization [email or web address] ([place], [place], [place], [place]) Address [address] [place] [address] Care Team Providers Care Laboratory Supervisor Name Role Phone Unavailable Primary Care Provider Unavailabl e Encounter Details Date Type Department Care Team (Late st Contact Info) Description 04/24/2019 Transcribed Document [facility] [place] Family Medicine [address] [place] [address] ProviderLexi MD [address] [place] [address] Social History Tobacco Use Types [...] - Historical ProviderMD - 04/24/2019 12:47 PM DIGITAL ACCOUNT MANAGER Event Note Entered On: 04/24/2019 12:49 EST [...]
--- OUTSIDE RECORDS SUMMARY | 2025-01-07 15:27 | XMS_ITS | Encounter Summary ---
Author Organization [employer] ([place], [place], [place], [place]) Address [address] [place] [address] Care Team Providers Care Screw Machine Adjuster Automatic Name Role Phone Unavailable Primary Care Provider Unavailabl e Encounter Details Date Type Department Care Team (Late st Contact Info) Description 05/16/2019 Transcribed Document [facility] [place] [address] [place] [address] ProviderLexi MD [address] [place] [address] Social History Tobacco Use Types [...] - Historical ProviderMD - 05/16/2019 1:00 AM SALES AGENT FINANCIAL REPORT SERVICE Pain Assessment Entered On: 05/16/2019 4:23 EST [...]
--- OUTSIDE RECORDS SUMMARY | 2025-01-07 15:27 | XMS_ITS | Encounter Summary ---
Author Organization Healthcare Address [address] [place] [address] Care Team Providers Care Hot Strip Mill Inspector Name Role Phone Humberto Downs MD Primary Care Provider [phone] Humberto Camarena MD Primary Care Provider + [phone] Encounter Details Date Type Department Care Team (Late st Contact Info) Description 12/19/2024 Orders Only External Location [address] [place] [address] Provider, External Social History Tobacco Use Types [...] documented as of this encounter Care Teams Hot Strip Mill Inspector Relationship Specialty Start Date End Date Humberto Downs MD [address] [place] [address] PCP - General 07/29/20 12/28/24 [place] [address] [place] [address] [address] [facility] [address] [place] [address] PCP - General Internal Medicine 12/29/24 documented as of this encounter
--- OUTSIDE RECORDS SUMMARY | 2025-01-07 15:27 | XMS_ITS | Encounter Summary ---
Author Organization Healthcare Address [address] [place] [address] Care Team Providers Care Target Aircraft Controller Name Role Phone Humberto Downs MD Primary Care Provider [phone] Humberto Camarena MD Primary Care Provider + [phone] Encounter Details Date Type Department Care Team (Late st Contact Info) Description 09/17/2024 Orders Only External Location [address] [place] [address] Provider, External Social History Tobacco Use Types [...] on filedocumented in this encounter Care Teams Target Aircraft Controller Relationship Specialty Start Date End Date Humberto Downs MD [address] [place] [address] [place] [address] PCP - General 07/29/20 12/28/24 Humberto Camarena MD [address] [place] [address] PCP - General Internal Medicine 12/29/24 documented as of this encounter
--- OUTSIDE RECORDS SUMMARY | 2025-01-07 15:27 | XMS_ITS | Clinical Summary ---
Author Organization [employer] ([place], [place], [place], [place]) Address [address] [place] [address] Care Team Providers Care Powder Mixer Name Role Phone Unavailable Primary Care [...]
--- OUTSIDE RECORDS SUMMARY | 2025-01-07 15:28 | XMS_ITS | Encounter Summary ---
Author Organization [employer] ([place], [place], [place], [place]) Address [address] [place] [address] Care Team Providers Care Shank Sander Name Role Phone Unavailable Primary Care Provider Unavailabl e Encounter Details Date Type Department Care Team (Late st Contact Info) Description 05/16/2019 Transcribed Document [facility] [place] Family Medicine [address] [place] [address] ProviderLexi MD [address] [place] [address] Social History Tobacco Use Types [...] - Historical ProviderMD - 05/16/2019 2:00 AM VARIETY SAW OPERATOR Supportive Employment Case Manager Details Entered On: 05/16/2019 4:23 EST Performed [...]
--- OUTSIDE RECORDS SUMMARY | 2025-01-07 15:28 | XMS_ITS | Encounter Summary ---
Author Organization [employer] ([place], [place], [place], [place]) Address [address] [place] [address] Care Team Providers Care Self Pay Specialist Name Role Phone Unavailable Primary Care Provider Unavailabl e Encounter Details Date Type Department Care Team (Late st Contact Info) Description 05/16/2019 Transcribed Document [facility] [place] [address] [place] [address] ProviderLexi MD [address] [place] [address] Social History Tobacco Use Types [...] - Lexi ProviderMD - 05/16/2019 12:30 PM PULMONARY SPECIALIST [address] [address] TAY FONSECA Brittany :1945 Visit [...] by family, RN please call report to [phone] fax dc summary to [phone] Continue to use incentive spirometer for approx [...] 1 Tablet(s) Oral Every Day Pickup at [facility] [place] [address] [address] levothyroxine 50 Microgram(s) Oral Every Day simvastatin 40 Milligram(s) Oral Every Evening Pharmacy Information [id number] [facility] [address]: [address] [facility] [address] [place] [id number] [phone] Take your medications faithfully. Do NOT skip [...] Barley. Bulgur wheat. Millet. Bran muffins. Popcorn. [place] wafer crackers. Vegetables Sweet potatoes. Spinach. Kale. Artichokes. Cabbage. Broccoli. Green peas. Carrots. Squash. Fruits Berries. Pears. Apples. Oranges. Avocados. Prunes and raisins. Dried figs. Meats and Other Protein Sources [place], kidney, kaplan, and soy beans. Split peas. [...] harrison has 11 g of protein. ??? [place] seeds ??? 1 oz has 5.5 g [...] floor. ??? Place frequently used items in voac-iv-hpqlg places ??? Keep electrical cables out of [...] ??? Using the bathroom. ??? Using household federal air marshal or toxic chemicals. ??? Touching or taking [...] Keep items that you use often in tbnt-kj-tvzfu places. Lower the shelves around your home [...] Control and Prevention, [place]: https://cdc.gov ??? National [place] on Aging: https://ez0wrxu.bolivar.nih.gov Contact a doctor if: ??? You are [...] 12/29/2009 Document Revised: 10/17/2017 Document Reviewed: 10/17/2017 Sporthold Interactive Patient Education ?? 2019 Beaker. High-Fiber Diet Fiber, also called dietary fiber, [...] Barley. Bul[place]ur wheat. Millet. Bran muffins. Popcorn. [place] wafer crackers. Vegetables Sweet potatoes. Spinach. Kale. Artichokes. Cabbage. Broccoli. Green peas. Carrots. Squash. Fruits Berries. Pears. Apples. Oranges. Avocados. Prunes and raisins. Dried figs. Meats and Other Protein Sources [place], kidney, kaplan, and soy beans. Split peas. [...] 03/04/2006 Document Revised: 08/09/2016 Document Reviewed: 08/17/2014 Sporthold Interactive Patient Education ?? 2018 Beaker. hydromorphone (oral) (MIRZA ibanez) Adriana Krishnamurthyalgo What [...] extended-release form of this medicine is for ewzabh-igy-zcvko treatment of moderate to severe pain, not [...] against the law. Stop taking all other icxmwz-ajq-sedeo narcotic pain medications when you start taking [...] may report side effects to FDA at 3-456-LJT-1386. What other drugs will affect hydromorphone? Opioid [...] drugs may affect hydromorphone, including prescription and oela-bup-acmjkbd medicines, vitamins, and herbal products. Not all [...] to ensure that the information provided by [employer]. ('Multum') is accurate, up-to-date, and complete, but no guarantee is made to that effect. Drug information contained herein may be time sensitive. Torbit information has been compiled for use by healthcare practitioners and consumers in the [place] and therefore [employer]bit does not warrant that uses outside of the [place] are appropriate, unless specifically indicated otherwise. [place] drug information does not endorse drugs, diagnose patients or recommend therapy. [place] drug information is an informational resource designed [...] appropriate for any given patient. [facility] does not assume any responsibility for any aspect of healthcare administered with the aid of information [facility] provides. The information contained herein is not intended to cover all possible uses, directions, precautions, warnings, drug interactions, allergic reactions, or adverse effects. If you have questions about the drugs you are taking, check with your doctor, nurse or pharmacist. Copyright 6651-4192 [employer]. Version: 9.03. Revision Date: 01/01/2019. gabapentin ([place] [...] are a day sleeper or work a table games shift manager. Some people have thoughts about suicide while [...] may report side effects to FDA at 6-555-MDG-9895. What other drugs will affect gabapentin? Using gabapentin with other drugs that slow your breathing can cause dangerous side effects or . Ask your doctor before using opioid medication, a sleeping pill, cold or allergy medicine, a muscle relaxer, or medicine for anxiety or seizures. Other drugs may affect gabapentin, including prescription and qbbl-uxd-ofpkdkk medicines, vitamins, and herbal products. Tell your [...] to ensure that the information provided by [employer]. ('Multum') is accurate, up-to-date, and complete, but no guarantee is made to that effect. Drug information contained herein may be time sensitive. [employer] information has been compiled for use by healthcare practitioners and consumers in the [place] and therefore [employer] does not warrant that uses outside of the [place] are appropriate, unless specifically indicated otherwise. [place] drug information does not endorse drugs, diagnose patients or recommend therapy. [place] drug information is an informational resource designed [...] effective or appropriate for any given patient. [employer] does not assume any responsibility for any aspect of healthcare administered with the aid of information [employer] provides. The information contained herein is not intended to cover all possible uses, directions, precautions, warnings, drug interactions, allergic reactions, or adverse effects. If you have questions about the drugs you are taking, check with your doctor, nurse or pharmacist. Copyright 9090-2884 [employer]. Version: 15.01. Revision Date: 03/12/2019. oxycodone (ox [...] The extended-release form of oxycodone is for acebqn-kia-twzsu treatment of pain and should not be [...] against the law. Stop taking all other grodnr-bcp-krjig narcotic pain medicines when you start taking [...] may report side effects to FDA at 5-868-PMT-5203. What other drugs will affect oxycodone? You [...] may affect oxycodone. This includes prescription and qbrr-yml-pbxrrtw medicines, vitamins, and herbal products. Not all [...] to ensure that the information provided by [employer]. ('Multum') is accurate, up-to-date, and complete, but no guarantee is made to that effect. Drug information contained herein may be time sensitive. [employer]bit information has been compiled for use by healthcare practitioners and consumers in the [place] and therefore [employer] does not warrant that uses outside of the [place] are appropriate, unless specifically indicated otherwise. [place] drug information does not endorse drugs, diagnose patients or recommend therapy. [place] drug information is an informational resource designed [...] effective or appropriate for any given patient. [employer] does not assume any responsibility for any aspect of healthcare administered with the aid of information [employer] provides. The information contained herein is not intended to cover all possible uses, directions, precautions, warnings, drug interactions, allergic reactions, or adverse effects. If you have questions about the drugs you are taking, check with your doctor, nurse or pharmacist. Copyright 5463-1568 [employer]. Version: 13.03. Revision Date: 12/29/2018. tramadol (TRAM [...] extended-release form of this medicine is for rkgafj-pfl-vgqjb treatment of pain. This form of tramadol [...] against the law. Stop taking all other evtaqb-vqs-yumgr narcotic pain medications when you start taking [...]
--- OUTSIDE RECORDS SUMMARY | 2025-01-07 15:28 | XMS_ITS | Encounter Summary ---
Author Organization [employer] ([place], [place], [place], [place]) Address [address] [place] [address] Care Team Providers Care Client Relations Specialist Name Role Phone Unavailable Primary Care Provider Unavailabl e Encounter Details Date Type Department Care Team (Late st Contact Info) Description 05/16/2019 Transcribed Document [facility] [place] [address] [place] [address] ProviderLexi MD [address] [place] [address] Social History Tobacco Use Types [...] - Lexi ProviderMD - 05/16/2019 3:17 PM TEST CONSULTANT Patient: TAY FONSECA Age: 73 Years Sex: [...] Record Time Spent on Discharge 35 minutes Electronically signed by Meghan Carney Conversion Library Information Technician Cerner at 07/02/2022 5:08 PM CDT documented in this encounter Plan of Treatment Not on file documented as of this encounter Visit Diagnoses Not on filedocumented in this encounter
--- OUTSIDE RECORDS SUMMARY | 2025-01-07 15:28 | XMS_ITS | Encounter Summary ---
Author Organization [employer] ([place], [place], [place], [place]) Address [address] [place] [address] Care Team Providers Care Video Game Designer Name Role Phone Unavailable Primary Care Provider Unavailabl e Encounter Details Date Type Department Care Team (Late st Contact Info) Description 05/16/2019 Transcribed Document [facility] [place] [address] [place] [address] ProviderLexi MD [address] [place] [address] Social History Tobacco Use Types [...] - Lexi ProviderMD - 05/16/2019 9:53 AM SOFTWARE SUPPORT ENGINEER Discharge Instructions Entered On: 05/16/2019 9:55 EST [...] 05/16/2019 9:53 EST Electronically signed by Angelika [facility] Conversion Research Advisor Cerner at 07/02/2022 4:51 PM CDT documented in this encounter Plan of Treatment Not on file documented as of this encounter Visit Diagnoses Not on filedocumented in this encounter
--- OUTSIDE RECORDS SUMMARY | 2025-01-07 15:28 | XMS_ITS | Encounter Summary ---
Author Organization Healthcare Address [address] [place] [address] Care Team Providers Care It Security Manager Name Role Phone Humberto Camarena MD Primary Care Provider + [phone] Encounter Details Date Type Department Care Team [...] documented as of this encounter Care Teams It Security Manager Relationship Specialty Start Date End Date Humberto Camarena MD [address] [address] [place] [address] PCP - General Internal Medicine 12/29/24 documented as of this encounter
--- OUTSIDE RECORDS SUMMARY | 2025-01-07 15:28 | XMS_ITS | Encounter Summary ---
Author Organization [employer] ([place], [place], [place], [place]) Address [address] [place] [address] Care Team Providers Care Formal Wear Rental Clerk Name Role Phone Unavailable Primary Care Provider Unavailabl e Encounter Details Date Type Department Care Team (Late st Contact Info) Description 05/16/2019 Transcribed Document [facility] [place] [address] [place] [address] ProviderLexi MD [address] [place] [address] Social History Tobacco Use Types [...] Lexi Walsh MD - 05/16/2019 12:29 PM EXAMINATION SUPERVISOR Patient Education Materials Follows: What to expect [...] Barley. Bulgur wheat. Millet. Bran muffins. Popcorn. [place] wafer crackers. Vegetables Sweet potatoes. Spinach. Kale. Artichokes. Cabbage. Broccoli. Green peas. Carrots. Squash. Fruits Berries. Pears. Apples. Oranges. Avocados. Prunes and raisins. Dried figs. Meats and Other Protein Sources [place], kidney, kaplan, and soy beans. Split peas. [...] harrison has 11 g of protein. ?? [place] seeds ??? 1 oz has 5.5 [...] floor. ?? Place frequently used items in bomm-ya-jtyvb places ?? Keep electrical cables out of [...] ?? Using the bathroom. ?? Using household group leader or toxic chemicals. ?? Touching or taking [...] Keep items that you use often in iqgt-lv-pqfiv places. Lower the shelves around your home [...] the way. ??? Do not use floor tunisian or wax that makes floors slippery. If [...] Control and Prevention, [place]: https://cdc.gov ??? National [place] on Aging: https://qy8nvtr.bolivar.nih.gov Contact a doctor if: ??? You are [...] 12/29/2009 Document Revised: 10/17/2017 Document Reviewed: 10/17/2017 SquadMail Interactive Patient Education ? 2019 SquadMail Inc. High-Fiber Diet Fiber, also called dietary [...] Barley. Bulgur wheat. Millet. Bran muffins. Popcorn. [place] wafer crackers. Vegetables Sweet potatoes. Spinach. Kale. Artichokes. Cabbage. Broccoli. Green peas. Carrots. Squash. Fruits Berries. Pears. Apples. Oranges. Avocados. Prunes and raisins. Dried figs. Meats and Other Protein Sources [place], kidney, kaplan, and soy beans. Split peas. [...] 08/17/2014 Elsevier Interactive Patient Education ? 2018 SquadMail Inc. Electronically signed by Meghan Carney Conversion Organizational Effectiveness Director Cerner at 07/02/2022 5:18 PM CDT documented in this encounter Plan of Treatment Not on file documented as of this encounter Visit Diagnoses Not on filedocumented in this encounter
--- OUTSIDE RECORDS SUMMARY | 2025-01-07 15:28 | XMS_ITS | Encounter Summary ---
Author Organization [employer] ([place], [place], [place], [place]) Address [address] [place] [address] Care Team Providers Care Car Knocker Name Role Phone Unavailable Primary Care Provider Unavailabl e Encounter Details Date Type Department Care Team (Late st Contact Info) Description 05/16/2019 Transcribed Document [facility] Family Medicine [address] [place] [address] ProviderLexi MD [address] [place] [address] Social History Tobacco Use Types [...] - Historical ProviderMD - 05/16/2019 4:01 PM DRYWALL HANGER HELPER Nursing Discharge Summary Entered On: 05/16/2019 16:02 [...] 05/16/2019 16:01 EST Electronically signed by Angelika, [facility] Conversion Salesperson Yard Goods Cerner at 07/02/2022 4:53 PM CDT documented in this encounter Plan of Treatment Not on file documented as of this encounter Visit Diagnoses Not on filedocumented in this encounter
--- OUTSIDE RECORDS SUMMARY | 2025-01-07 15:28 | XMS_ITS | Encounter Summary ---
Author Organization [employer] ([place], [place], [place], [place]) Address [address] [place] [address] Care Team Providers Care Tube Cleaner Name Role Phone Unavailable Primary Care Provider Unavailabl e Encounter Details Date Type Department Care Team (Late st Contact Info) Description 05/16/2019 Transcribed Document [facility] [place] [address] [place] [address] ProviderLexi MD [address] [place] [address] Social History Tobacco Use Types [...] - Historical ProviderMD - 05/16/2019 4:00 PM DATA OPERATIONS MANAGER Discharge Summary, PT Entered On: 05/19/2019 11:00 EST Performed On: 05/16/2019 16:00 EST by WILIAN KENNEDY, PT Discharge Summary Reason for Discharge : Discharged from hospital Discharged to, Therapy : Unit, residential Discharge Summary Comment, PT : 33 acute PT goals met. Modified Independent with transfers Ambulated 200' with RWx SBA/CGA 25# WB R LE PAULA HEP AROM x 20 reps D/C to [facility] for continued care and rehab on 05/16/19. WILIAN KENNEDY, PT - 05/19/2019 10:59 EST Halfway Goals Other PT LTG Grid Goal #1 [...]
--- OUTSIDE RECORDS SUMMARY | 2025-01-07 15:28 | XMS_ITS | Encounter Summary ---
Author Organization [employer] ([place], [place], [place], [place]) Address [address] [place] [address] Care Team Providers Care Drop Wirer Name Role Phone Unavailable Primary Care Provider Unavailabl e Encounter Details Date Type Department Care Team (Late st Contact Info) Description 05/16/2019 Transcribed Document [facility] [place] Family Medicine [address] [place] [address] ProviderLexi MD [address] [place] [address] Social History Tobacco Use Types [...] - Historical ProviderMD - 05/16/2019 2:42 PM PRODUCTION DEPARTMENT SUPERVISOR On Going Discharge Planning Entered On: 05/16/2019 14:47 EST Performed On: 05/16/2019 14:42 EST by KYRA ZEPEDA RN-Gunstock Spray Unit FeederSoft Mud Molder Progress Note Discharge Arrangements : Patient Post-Acute Information Patient Name: TAY FONSECA Gender: Female : [birth year] Age: 73 Years No Post-Acute Placement(s) Listed No Post-Acute Service(s) Listed No [place] Referral(s) Listed Discharge Options Discussed with Patient : Short term rehabilitation Patient Offered Choice/Affiliations Explained : Yes KYRA ZEPEDA RN-Gunstock Spray Unit Feeder - 05/16/2019 14:42 EST Narrative Progress Note Narrative Progress Note : Dr River dictated a dc summary, however, is not showing up for anyone to see. Cm contacted Medical Records at [facility] in regards of having someone check for [...] go ahead and fax dc summary to [facility] and to have nurse call report........sds Historical Progress Note : Pt has been changed to in pt status per IPAS. referrals sent out via [employer] [place] facilities per pts choice. SANDRA DEL ANGEL, Care Management-Women'S Studies Professor - 05/13/19 10:07:21 KYRA ZEPEDA, RN-Gunstock Spray Unit Feeder - 05/16/2019 14:42 EST Electronically signed by [facility], [facility] Conversion Material Handling Warehouse Supervisor Cerner at 07/02/2022 4:57 PM CDT documented in this encounter Plan of Treatment Not on file documented as of this encounter Visit Diagnoses Not on filedocumented in this encounter
--- OUTSIDE RECORDS SUMMARY | 2025-01-07 15:28 | XMS_ITS | Encounter Summary ---
Author Organization Healthcare Address [address] [place] [id number] Care Team Providers Care Cow Tester Name Role Phone Humberto Camarena MD Primary Care Provider + [phone] Reason for Visit * Reason Onset Date Comments HCN Clinical Concern/Question 12/29/2024 Encounter Details Date Type Department Care Team (Late st Contact Info) Description 12/29/2024 Telephone [facility] [address] [facility] [address]th Floor [address] [place] [address] Yifan [place] MD [address] [facility] [address] [place] [address] HCN Clinical Concern/Question Social History [...] asking for advise. She referred her to Yarsanism to Fuad but does not want to go to him. Unless Abdirizak agrees Best contact number: [phone] (home) Optimal time of day to reach caller: ANYTIME Additional comments/information from caller: None Note: Please do not reply to this message. Follow-up communication and further actions as a result of this message need to be communicated with the patient directly, if the patient is not active onMyChart. If the patient is active on MyChart, they will receive notification of the communication/outcome via [employer]. documented in this encounter Plan of Treatment [...] documented as of this encounter Care Teams Cow Tester Relationship Specialty Start Date End Date Humberto Camarena MD [address] [place] [address] PCP - General Internal Medicine 12/29/24 documented as of this encounter
== END 2025-01-07 23:59 | disposition home or self-care (01) ==
LOC: RAD 14:56
PROVIDERS: PCP Internal Medicine Adolescent Medicine; Visit Provider Internal Medicine Adolescent Medicine
DX: Z12.31 Encounter for screening mammogram for malignant neoplasm of breast (principal); R92.323 Mammographic fibroglandular density, bilateral breasts; R92.8 Other abnormal and inconclusive findings on diagnostic imaging of breast
CPT/HCPCS: 77063; 77067